=== PATIENT | male | born 1945 | race Caucasian/White ===

== ENCOUNTER 2018-11-18 03:33 | Inpatient (IN) | payer MEDICARE, MEDICAID ==
[2018-11-18] VITALS (8 sets, daily range): BP systolic 90–140; BP diastolic 49–90
[~2018-11-18] VITALS: Ht 165.1 cm; Wt 74.8 kg
--- NOTE | 2018-11-18 03:33 | NUR ---
ED Nurse Note: PATIENT BIBA FROM [facility], WARM TO TOUCH, POSSIBLLY SEPTIC. RECTAL TEMP 99.7. APHASIC. NAD. HYPOTENSIVE BP 92/ 49. GTUBE NOTED; ASPIRATED AND FLUSHED; PATENT.
[2018-11-18] MEDS ORDERED: Albuterol ud Inhalation HHN ONE (03:45)
--- NOTE | 2018-11-18 03:45 | NUR ---
ED Nurse Note: IV ACCESS ESTABLISHED. BLOOD, URINE, MRSA VRE CRE SWABS COLLECTED; SENT DOWN TO LAB. WOUNDS NOTED ON SACRAL AND LEFT HEEL. WOUND PICTURE TAKEN AND UPLOADED.
--- NOTE | 2018-11-18 03:49 | Emergency Room Report ---
History of Present Illness General Chief Complaint: Fever Source: Medical Record, EMS Present Illness HPI This is a 73-year-old male from [place]. He presents with chief complaint of altered mental status. He has a past medical history of COPD, feeding tube, dementia, Parkinson. Per EMS, alf noted that patient appeared to be a dresser distress. Increased work of breathing. Decreased mentation. No fever chills but no cough or congestion. Unable to get any other history because of this patient condition. Allergies: Coded Allergies: No Known Allergies (Unverified , 11/18/18) Patient History Past Medical History: see triage record, old chart reviewed, COPD Past Surgical History: other Pertinent Family History: none Social History: Denies: smoking Immunizations: other Reviewed Nursing Documentation: PMH: Agreed; PSxH: Agreed Nursing Documentation-PMH Hx Cardiac Problems: Yes - ATHEROSCLEROTIC HEART DISEASE Hx Hypertension: Yes Hx COPD: Yes Hx Dialysis: Yes - CKD History Of Psychiatric Problem: Yes - DEMENTIA; DEPRESSION; PARKINSON Hx Neurological Problems: Yes - EPILEPSY Review of Systems Constitutional: Reports: malaise, weakness Respiratory: Reports: shortness of breath All Other Systems: limited - Contrary to condition Physical Exam Vital Signs Date Time Temp Pulse Resp B/P (MAP) Pulse Ox O2 Delivery O2 Flow Rate FiO2 11/18/18 03:24 97.9 90 18 95/53 (67) 96 Nasal Cannula Vitals with hypotension and hypoxia Sp02 EP Interpretation: abnormal General Appearance: moderate distress, cachetic, Chronically Ill Head: normocephalic, atraumatic Eyes: bilateral eye PERRL, bilateral eye EOMI ENT: hearing grossly normal, normal pharynx Neck: full range of motion, supple, no meningismus Respiratory: chest non-tender, respiratory distress, decreased breath sounds, accessory muscle use, rhonchi Cardiovascular #1: regular rate, rhythm, no murmur, tachycardia Gastrointestinal: normal bowel sounds, non tender, no mass, no organomegaly, no bruit, non-distended Musculoskeletal: back normal, gait/station normal, normal range of motion Psychiatric: mood/affect normal Skin: warm/dry Procedures Critical Care Time Critical Care Time Critical care is mandated in this patient who presented with sepsis from pneumonia. Patient require my urgent intervention to attenuate the risks of metabolic collapse which may lead to cardiovascular collapse and . Critical care time is 35 minutes excluding any reportable procedure. Critical care time included evaluation, multiple reevaluation, looking at old charts, interpreting laboratory and diagnostic data, discussing case with patient and family and consultants, and charting. Medical Decision Making Diagnostic Impression: Primary Impression: Sepsis Qualified Codes: A41.9 - Sepsis, unspecified organism Additional Impressions: HCAP (healthcare-associated pneumonia) UTI (urinary tract infection) Qualified Codes: N30.00 - Acute cystitis without hematuria Anemia, chronic disease Proteinuria Qualified Codes: R80.9 - Proteinuria, unspecified ER Course Patient presents with sepsis secondary to pneumonia. Antibiotics started. Patient improved with IV fluid and IV antibiotics. I discussed the case with Dr. Gonzalez for admission. Sepsis reevaluation Vital signs: See nursing note General: Improved mental status. Cardiovascular: Regular rate and rhythm Lungs: Better aeration. Abdomen: Soft Extremity: No edema Skin: No mottling Capillary refills: less than 2 seconds Lab Results Impression Labs with elevated WBC EKG Diagnostic Results Rate: normal Rhythm: NSR ST Segments: no acute changes Rhythm Strip Diag. Results EP Interpretation: yes Rate: 95 Rhythm: NSR, no PVC's, no ectopy Chest X-Ray Diagnostic Results Chest X-Ray Diagnostic Results : Chest X-Ray Ordered: Yes # of Views/Limited/Complete: 1 View Indication: Shortness of Breath EP Interpretation: Yes Interpretation: no effusion, no pneumothorax, other - b/l infiltrates Impression: Other - b/l infiltrates Electronically Signed by: Norbert Kohli MD Last Vital Signs Date Time Temp Pulse Resp B/P (MAP) Pulse Ox O2 Delivery O2 Flow Rate FiO2 11/18/18 03:24 97.9 90 18 95/53 (67) 96 Nasal Cannula Status: improved Disposition: ADMITTED INPATIENT Condition: Serious Norbert Kohli MD Nov 18, 2018 03:49
[2018-11-18] MEDS ORDERED: LOPRESSOR GT (03:50)
[2018-11-18] MEDS ORDERED: FAMOTIDINE20 MG GT (03:50)
[2018-11-18] MEDS ORDERED: SINEMET 25-1001 EAC1 ORAL (03:50)
[2018-11-18] MEDS ORDERED: ASPIR 8181 MG GT (03:50)
[2018-11-18] MEDS ORDERED: VIT GT (03:50)
[2018-11-18] MEDS ORDERED: VITAMIN D400 INTLU GT (03:50)
[2018-11-18] MEDS ORDERED: ARICEPT10 MG GT (03:50)
[2018-11-18] MEDS ORDERED: PREDNISONE10 MG GT (03:51)
[2018-11-18] MEDS ORDERED: LACTULOSE20 GM/301 GT (03:51)
[2018-11-18] MEDS ORDERED: VALPROIC ACID250 MG GT (03:51)
[2018-11-18] MEDS ORDERED: MYLANTA GT (03:54)
[2018-11-18] MEDS ORDERED: XOPENEX0.63 MG/3 HHN (03:54)
[2018-11-18 04:05] LABS: BILIRUBIN, URINE NEGATIVE (NEGATIVE); GLUCOSE, URINE (UA) NEGATIVE (NEGATIVE); KETONES,URINE NEGATIVE (NEGATIVE); LEUKOCYTE ESTERASE ,URINE 2+ (NEGATIVE); NITRITE,URINE NEGATIVE (NEGATIVE); PH,URINE 6 (4.5-8.0); PROTEIN,URINE 2+ (NEGATIVE); UROBILINOGEN,URINE 8 MG/DL (0.0-1.0)
[2018-11-18 04:12] LABS: BASOPHILS % (AUTO) 0.3 % (0.0-2.0); EOSINOPHILS % (AUTO) 0.4 % (0.0-3.0); HEMATOCRIT 28.3 % (42.0-52.0); HEMOGLOBIN 9.4 G/DL (14.2-18.0); LYMPHOCYTES % (AUTO) 10.6 % (20.0-45.0); MEAN CORPUSCULAR VOLUME 94 FL (80-99); MONOCYTES % (AUTO) 4.5 % (1.0-10.0); NEUTROPHILS % (AUTO) 84.1 % (45.0-75.0); PLATELET COUNT 304 K/UL (150-450); RED BLOOD COUNT 3.01 M/UL (4.70-6.10); WHITE BLOOD COUNT 16.6 K/UL (4.8-10.8)
[2018-11-18 04:22] LABS: APPEARANCE,URINE SLIGHTLY CLOUDY; COLOR,URINE YELLOW
[2018-11-18 04:23] LABS: ANION GAP 7 mmol/L (5-15); BLOOD UREA NITROGEN 26 mg/dL (7-18); CALCIUM 8.9 MG/DL (8.5-10.1); CARBON DIOXIDE 32 MMOL/L (21-32); CHLORIDE 105 MMOL/L (98-107); CREATININE 0.6 MG/DL (0.55-1.30); POTASSIUM 4.3 MMOL/L (3.5-5.1); SODIUM 144 MMOL/L (136-145)
[2018-11-18] MEDS ORDERED: Cefepime HCl 1 GM in D5W 55 ML IVPB ONE (04:30)
[2018-11-18 04:36] LABS: ALANINE AMINOTRANSFERASE 24 U/L (12-78); ALBUMIN 1.5 G/DL (3.4-5.0); ALBUMIN/GLOBULIN RATIO 0.3 (1.0-2.7); ALKALINE PHOSPHATASE 102 U/L (46-116); ASPARTATE AMINO TRANSFERASE 18 U/L (15-37); BILIRUBIN,TOTAL 0.8 MG/DL (0.2-1.0); CKMB 1.2 NG/ML (0.0-3.6); CREATINE KINASE 27 U/L (26-308)
--- NOTE | 2018-11-18 05:00 | NUR ---
ED Nurse Note: LACTIC REFLEX COLLECTED; SENT DOWN TO LAB.
--- NOTE | 2018-11-18 05:21 | NUR ---
TRANSFER TO FLOOR: Patient transferred to [facility] 237-2 as ordered, per MD MASOOD. Report given to MONA THAKKAR. PATIENT IN STABLE CONDITION. ENDORSED WOUNDS TO RECEIVING RN. BELONGINGS LIST COMPLETED WITH RECEIVING RN.
--- NOTE | 2018-11-18 05:45 | NUR ---
NURSE NOTES: RECEIVED PT FROM SHIRLEY RN FROM ER AT BEDSIDE. PT IS X0, NONVERBAL, NOT ABLE TO MAKE NEEDS KNOWN. ALERT AND CAN TRACK WITH EYES, WITHDRAWS TO PAIN. 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 VENTURI MASK @ 10L 45%, SATING AT 100%. GT NOTED, NO DIET ORDER YET. BUNDY INSERTED PRIOR TO ADMISSION, DARK YELLOW. SACRAL AND HEEL PRESSURE INJURIES, SEE WCP. OTHERWISE SKIN CLEAN, DRY, DRESSINGS NOW INTACT. RAC 18G, SL; ASYMPTOMATIC. BED IS LOCKED IN LOWEST POSITION, SR X3, CALL GUTIERREZ W/ IN REACH, BED ALARM ON, SZ PRECAUTIONS CONTINUED. WILL CONTINUE TO MONITOR AND FOLLOW W/ PLAN OF CARE.
--- NOTE | 2018-11-18 06:30 | NUR ---
NURSE NOTES: PAGED DR. CORREIA REGARDING ADMIT ORDERS. LEFT A MESSAGE W/ THE ANSWERING SERVICE. NO NEW ORDERS AT THIS TIME. WILL CONTINUE TO MONITOR.
[2018-11-18] MEDS ORDERED: FLEET ENEMA133 ML RECTAL (06:31)
[2018-11-18] MEDS ORDERED: COLACE100 MG GT (06:31)
[2018-11-18] MEDS ORDERED: MILK OF MA400 MG/51 GT (06:31)
[2018-11-18] MEDS ORDERED: VITAMIN B-1100 MG GT (06:31)
[2018-11-18] MEDS ORDERED: METOPROLOL TART25 MG GT (06:31)
[2018-11-18] MEDS ORDERED: SENNA8.6 M2 GT (06:31)
[2018-11-18] MEDS ORDERED: MIRTAZAPINE15 MG GT (06:31)
[2018-11-18] MEDS ORDERED: PRO-STAT LIQUID30 ML GT (06:31)
[2018-11-18] MEDS ORDERED: VALPROIC A250 MG/5 M GT (06:31)
[2018-11-18] MEDS ORDERED: DULCOLAX10 MG RC (06:31)
[2018-11-18] MEDS ORDERED: LOVENOX10 M1 SUBQ (06:31)
--- NOTE | 2018-11-18 06:40 | NUR ---
NURSE NOTES: PAGED DR. GOMEZ REGARDING ADMIT ORDERS FOR DR. XIE PT. NO NEW ORDERS AT THIS TIME. WILL CONTINUE TO MONITOR.
--- NOTE | 2018-11-18 07:15 | NUR ---
HAND-OFF: Report given to Peter [facility] RN.
--- NOTE | 2018-11-18 07:20 | NUR ---
NURSE NOTES: Report received from Loree Caba RN.Pt asleep in bed ,nonverbal,noted no resp,on Venturi mask 45%,no signs of pain or discomfort S-Tach on the monitor,GT clamped,Bradley cath draining tea colored urine,with decub wound to sacral and LT heel,skin warm and dry IV site to RAC intact ,SR up x2 HOB elevated,bed lock in lowest position,will continue with plans of care.
[2018-11-18] MEDS ORDERED: Miralax 17gm pkt ORAL PRN (07:45)
[2018-11-18] MEDS ORDERED: Morphine Sulfate 4mg/ml Inj (IV USE ONLY) IVP PRN (07:45)
[2018-11-18] MEDS ORDERED: Albuterol/Ipratropium 3ml neb HHN PRN (07:45)
--- NOTE | 2018-11-18 07:45 | NUR ---
NURSE NOTES: Telephone call received from Night RN Loree Caba ,that Dr Carrasquillo called her re orders for wound care consult,nutrition consult abd xray for confirmation of GT,and Venous Duplex.
[2018-11-18 08:11] LABS: LACTATE DEHYDROGENASE 232 U/L (81-234)
[2018-11-18 08:39] LABS: % IRON SATURATION 14 % (15-50); IRON 19 ug/dL (50-175); TOTAL IRON BINDING CAPACITY 136 ug/dL (250-450)
--- NOTE | 2018-11-18 08:54 | NUR ---
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 SEPSIS VS: BP 90/49, P 113, Rectal T 99.7, RR 20, SPO2 96 on 10.0L V.Mask FiO2 45 WBC 16.6, RBC 3.01, H&H 9.4/28.3, BUN 26 IS:PROVENTIL 2.5mg NS 1.5L IVLG LEVOFLOXACIN 100ml IVPB CEFEPIME 55ml IVPB NS x1L IV ADMITTED TO [facility] DCP: RETURN TO [facility]
[2018-11-18] MEDS ORDERED: Heparin 5000 units/ml inj SUBQ SCH (09:00)
[2018-11-18] MEDS ORDERED: Vancomycin 1.25gm Premix IVPB ONE (09:00)
--- NOTE | 2018-11-18 09:00 | NUR ---
NURSE NOTES: Abd Xray done to confirm placement of GT,will hold GT medic pending result.
--- NOTE | 2018-11-18 09:09 | NUR ---
RADIOLOGY DEPT., ABDOMEN X-RAY FOR G-TUBE PLMT COMPLETED.-P.DYE
--- NOTE | 2018-11-18 09:53 | NUR ---
RD ASSESSMENT & RECOMMENDATIONS SEE CARE ACTIVITY FOR COMPLETE ASSESSMENT DAILY ESTIMATED NEEDS: Needs based on Sepsis, wound 60.5kg 25-35 kcals/kg 8703-8138 total kcals 1.25-2 g protein/kg 76-121 g total protein 25-30 mL/kg 5411-8670 total fluid mLs NUTRITION DIAGNOSIS: 1) Increased kcal and pro needs r/t wound healing as evidenced by pt w/ sacral unstageable wound and L heel DTPI. 2) Swallowing difficulty r/t dysphagia as evidenced by pt w/ Parkinson's dz, GT dependent. ENTERAL NUTRITION RECOMMENDATIONS: Glucerna 1.2 @60ml/hr x24 hrs to provide 1440ml, 1728 kcal, 86g pro, 1159ml free H2O - As medically able, rec to start Glucerna 1.2 @20ml/hr, advance as tolerated 10ml q4-6 hrs to goal. - Flush per MD/ HOB over 30 degrees ADDITIONAL RECOMMENDATIONS: 1) Per SNF: 5'6" ht, 133 lbs wt 2) HOME PARAPROFESSIONAL eval if oral grat is appropriate 3) Wound care: Add YOLI BID via GT + VIT C 250mg BID 4) Hypoglycemics prn/ niss
--- NOTE | 2018-11-18 10:46 | Consultation ---
History of Present Illness General Date patient seen: Nov 18, 2018 Chief Complaint: Fever Present Illness HPI 73-year-old male with hx of dementia, Gtube feeding, Parkinson disease, seizure , [facility] resident presented with chief complaint of altered mental status. Per EMS, [facility] noted that patient appeared to be a respiratory distress with increased work of breathing and decreased mentation. No fever chills but no cough or congestion. Unable to get any other history because of this patient condition. Patient was diagnosed to have bilateral pneumonia and sepsis and admitted to [facility] for further treatment. Allergies: Coded Allergies: No Known Allergies (Unverified , 11/18/18) Medication History Scheduled Amino Acids/Protein Hydrolys (Pro-Stat Liquid), 30 ML GT TWICE A DAY, (Reported) Aspirin* (Aspir 81*), 81 MG GT DAILY, (Reported) Carbidopa/Levodopa 25-100 Mg* (Sinemet 25-100 Mg Tablet*), 1 TAB ORAL THREE TIMES A DAY, (Reported) Docusate Sodium* (Colace*), 100 MG GT DAILY, (Reported) Donepezil Hcl* (Aricept*), 10 MG GT DAILY, (Reported) Enoxaparin* (Lovenox*), 60 MG SUBQ EVERY 12 HOURS, (Reported) Famotidine (Famotidine), 20 MG GT TWICE A DAY, (Reported) Lactulose (Lactulose*), 30 ML GT DAILY, (Reported) Metoprolol Tartrate* (Metoprolol Tartrate*), 12.5 MG GT EVERY 12 HOURS, ( Reported) Mirtazapine* (Remeron*), 15 MG GT BEDTIME, (Reported) Prednisone* (Prednisone*), 10 MG GT DAILY, (Reported) Sennosides (Senna), 17.2 MG GT QHS, (Reported) Thiamine Hcl* (Vitamin B-1*), 100 MG GT DAILY, (Reported) Valproate Sodium (Valproic Acid), 250 MG GT BID, (Reported) Vitamin D (Vitamin D3), 5,000 UNITS GT DAILY, (Reported) Scheduled PRN Bisacodyl (Dulcolax), 10 MG RC DAILY PRN for Constipation, (Reported) Levalbuterol Hcl (Xopenex*), 0.63 MG HHN Q4H PRN for Shortness of Breath, ( Reported) Magnesium Hydroxide* (Milk Of Magnesia*), 30 ML GT DAILY PRN for Constipation, ( Reported) Na Phos,M-B/Na Phos,Di-Ba* (Fleet Enema*), 133 ML RECTAL EVERY OTHER DAY PRN for Constipation, (Reported) [Mylanta], 30 ML GT Q6HR PRN for Per rx protocol, (Reported) Patient History Healthcare decision maker NONE Resuscitation status Full Code Advanced Directive on File No Past Medical/Surgical History Past Medical/Surgical History: (1) Seizures (2) Parkinson disease (3) Alzheimer's dementia (4) COPD (chronic obstructive pulmonary disease) (5) Feeding by G-tube (6) Anemia, chronic disease Review of Systems All Other Systems: negative except mentioned in HPI Physical Exam General Appearance: WD/WN, no apparent distress Lines, tubes and drains: central line HEENT: normocephalic, atraumatic Neck: non-tender, normal alignment Breasts: no masses Cardiovascular/Chest: normal peripheral pulses, normal rate, regular rhythm Abdomen: normal bowel sounds, non tender Genitourinary/Rectal: normal genital exam, heme negative stool Extremities: normal range of motion Skin Exam: normal pigmentation 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 Last 24 Hour Vital Signs Date Time Temp Pulse Resp B/P (MAP) Pulse Ox O2 Delivery O2 Flow Rate FiO2 11/18/18 08:20 95 11/18/18 06:02 Venturi Mask 10.0 11/18/18 06:00 98 11/18/18 05:45 98.4 107 22 140/90 (107) 100 11/18/18 05:23 99.7 113 20 107/62 99 Venturi Mask 10.0 45 11/18/18 05:11 99.7 113 20 107/62 99 Venturi Mask 10.0 45 11/18/18 04:39 98 20 Venturi Mask 10.0 45 11/18/18 04:10 99.7 98 20 90/49 99 Non-Rebreather 15.0 100 11/18/18 04:10 98 20 Non-Rebreather 15.0 100 11/18/18 04:08 102 20 99 Non-Rebreather 15.0 100 11/18/18 03:50 92 20 97 Non-Rebreather 15.0 100 11/18/18 03:50 92 20 97 Non-Rebreather 15.0 100 11/18/18 03:24 97.9 90 18 95/53 (67) 96 Nasal Cannula Intake and Output 11/17/18 11/18/18 19:00 07:00 Output Total 60 ml Balance -60 ml Output Urine Total 60 ml # Bowel Movements 1 Laboratory Tests Test 11/18/18 04:00 11/18/18 05:10 White Blood Count 16.6 K/UL (4.8-10.8) H Red Blood Count 3.01 M/UL (4.70-6.10) L Hemoglobin 9.4 G/DL (14.2-18.0) L Hematocrit 28.3 % (42.0-52.0) L Mean Corpuscular Volume 94 FL (80-99) Mean Corpuscular Hemoglobin 31.3 PG (27.0-31.0) H Mean Corpuscular Hemoglobin Concent 33.3 G/DL (32.0-36.0) Red Cell Distribution Width 15.0 % (11.6-14.8) H Platelet Count 304 K/UL (150-450) Mean Platelet Volume 5.8 FL (6.5-10.1) L Neutrophils (%) (Auto) 84.1 % (45.0-75.0) H Lymphocytes (%) (Auto) 10.6 % (20.0-45.0) L Monocytes (%) (Auto) 4.5 % (1.0-10.0) Eosinophils (%) (Auto) 0.4 % (0.0-3.0) Basophils (%) (Auto) 0.3 % (0.0-2.0) Differential Total Cells Counted 100 Neutrophils % (Manual) 87 % (45-75) H Lymphocytes % (Manual) 9 % (20-45) L Monocytes % (Manual) 4 % (1-10) Eosinophils % (Manual) 0 % (0-3) Basophils % (Manual) 0 % (0-2) Band Neutrophils 0 % (0-8) Platelet Estimate Adequate Platelet Morphology Normal Erythrocyte Sedimentation Rate 122 MM/HR (0-20) H Reticulocyte Count 0.7 % (0.5-2.0) Prothrombin Time 10.7 SEC (9.30-11.50) Prothromb Time International Ratio 1.0 (0.9-1.1) Activated Partial Thromboplast Time 24 SEC (23-33) Urine Color Yellow Urine Appearance Slightly cloudy Urine pH 6 (4.5-8.0) Urine Specific [place] 1.010 (1.005-1.035) Urine Protein 2+ (NEGATIVE) H Urine Glucose (UA) Negative (NEGATIVE) Urine Ketones Negative (NEGATIVE) Urine Blood 3+ (NEGATIVE) H Urine Nitrite Negative (NEGATIVE) Urine Bilirubin Negative (NEGATIVE) Urine Urobilinogen 8 MG/DL (0.0-1.0) H Urine Leukocyte Esterase 2+ (NEGATIVE) H Urine RBC 2-4 /HPF (0 - 0) H Urine WBC 10-15 /HPF (0 - 0) H Urine Squamous Epithelial Cells Few /LPF (NONE/OCC) Urine Bacteria Many /HPF (NONE) H Sodium Level 144 MMOL/L (136-145) Potassium Level 4.3 MMOL/L (3.5-5.1) Chloride Level 105 MMOL/L (98-107) Carbon Dioxide Level 32 MMOL/L (21-32) Anion Gap 7 mmol/L (5-15) Blood Urea Nitrogen 26 mg/dL (7-18) H Creatinine 0.6 MG/DL (0.55-1.30) Estimat Glomerular Filtration Rate mL/min (>60) Glucose Level 112 MG/DL (74-106) H Lactic Acid Level 2.10 mmol/L (0.4-2.0) H 1.80 mmol/L (0.66-2.22) Calcium Level 8.9 MG/DL (8.5-10.1) Iron Level 19 ug/dL (50-175) L Total Iron Binding Capacity 136 ug/dL (250-450) L Percent Iron Saturation 14 % (15-50) L Unsaturated Iron Binding 117 ug/dL (112-346) Total Bilirubin 0.8 MG/DL (0.2-1.0) Aspartate Amino Transf (AST/SGOT) 18 U/L (15-37) Alanine Aminotransferase (ALT/SGPT) 24 U/L (12-78) Alkaline Phosphatase 102 U/L (46-116) Lactate Dehydrogenase 232 U/L (81-234) Total Creatine Kinase 27 U/L (26-308) Creatine Kinase MB 1.2 NG/ML (0.0-3.6) Creatine Kinase MB Relative Index 4.4 Troponin I 0.095 ng/mL (0.000-0.056) Total Protein 6.3 G/DL (6.4-8.2) L Albumin 1.5 G/DL (3.4-5.0) L Globulin 4.8 g/dL Albumin/Globulin Ratio 0.3 (1.0-2.7) L Carcinoembryonic Antigen Pending Vitamin B12 Level 664 PG/ML (193-986) Folate 19.6 NG/ML (8.6-58.9) Height (Feet): 5 Height (Inches): 7.00 Weight (Pounds): 140 Medications Current Medications Medications (Trade) Dose Ordered Sig/Pauline Route PRN Reason Start Time Stop Time Status Last Admin Dose Admin Acetaminophen (Tylenol) 650 mg Q4H PRN ORAL FEVER 11/18/18 07:45 12/18/18 07:44 Albuterol/ Ipratropium (Albuterol/ Ipratropium) 3 ml Q4H PRN HHN Shortness of Breath 11/18/18 07:45 11/23/18 07:44 Carbidopa/Levodopa (Sinemet 25/100) 1 tab THREE TIMES A DAY ORAL 11/18/18 09:00 12/18/18 08:59 Cefepime HCl 2 gm/ Dextrose 110 ml @ 220 mls/hr Q24H IV 11/18/18 16:30 11/25/18 16:29 Dextrose (Dextrose 50%) 25 ml Q30M PRN IV Hypoglycemia 11/18/18 07:45 12/18/18 07:44 Dextrose (Dextrose 50%) 50 ml Q30M PRN IV Hypoglycemia 11/18/18 07:45 12/18/18 07:44 Donepezil HCl (Aricept) 10 mg DAILY GT 11/18/18 09:00 12/18/18 08:59 Heparin Sodium (Porcine) (Heparin 5000 units/ml) 5,000 units EVERY 12 HOURS SUBQ 11/18/18 09:00 12/18/18 08:59 11/18/18 09:20 Mirtazapine (Remeron) 15 mg BEDTIME GT 11/18/18 21:00 12/18/18 20:59 Morphine Sulfate (Morphine Sulfate) 2 mg Q4H PRN IVP Severe Pain (Pain Scale 7-10) 11/18/18 07:45 11/25/18 07:44 Ondansetron HCl (Zofran) 4 mg Q6H PRN IVP Nausea & Vomiting 11/18/18 07:45 12/18/18 07:44 Polyethylene Glycol (Miralax) 17 gm DAILYPRN PRN ORAL Constipation 11/18/18 07:45 12/18/18 07:44 Vancomycin HCl (Vanco rx to dose) 1 ea DAILY PRN MISC Per rx protocol 11/18/18 08:00 12/18/18 07:59 Vancomycin HCl 750 mg/Sodium Chloride 275 ml @ 183.333 mls/hr Q12H IVPB 11/18/18 21:00 11/23/18 20:59 Assessment/Plan Problem List: (1) HCAP (healthcare-associated pneumonia) ICD Codes: J18.9 - Pneumonia, unspecified organism SNOMED: 308339252, 784571274 (2) Sepsis ICD Codes: A41.9 - Sepsis, unspecified organism SNOMED: 48159179, 927419966 Qualifiers: Qualified Codes: A41.9 - Sepsis, unspecified organism (3) Acute DVT (deep venous thrombosis) ICD Codes: I82.409 - Acute embolism and thrombosis of unspecified deep veins of unspecified lower extremity SNOMED: 962198963782957 (4) Seizures ICD Codes: R56.9 - Unspecified convulsions SNOMED: 23043449 (5) COPD (chronic obstructive pulmonary disease) ICD Codes: J44.9 - Chronic obstructive pulmonary disease, unspecified SNOMED: 30494057 (6) Anemia, chronic disease ICD Codes: D63.8 - Anemia in other chronic diseases classified elsewhere SNOMED: 111050596, 724077826 (7) Feeding by G-tube ICD Codes: Z93.1 - Gastrostomy status SNOMED: 697720004, 973262588, 448962631 (8) Parkinson disease ICD Codes: G20 - Parkinson's disease SNOMED: 53778603 (9) Alzheimer's dementia ICD Codes: G30.9 - Alzheimer's disease, unspecified; F02.80 - Dementia in other diseases classified elsewhere without behavioral disturbance SNOMED: 27037937 Assessment/Plan: lainez culture IV abx iv heparin by pharmacy anemia w/u OB f/u wbc respiratory treatment aspiration precaution David Carrasquillo MD Nov 18, 2018 10:46
--- NOTE | 2018-11-18 12:00 | NUR ---
NURSE NOTES: Dr Gonzalez at bedside,seen pt,informed re results of venous duplex,pt is + for DVT to Rt leg.
[2018-11-18] MEDS ORDERED: Enoxaparin 60mg Inj SUBQ SCH (12:30)
--- NOTE | 2018-11-18 12:30 | NUR ---
NURSE NOTES: Dr Washington here ,seen pt,ordered for Heparin drip due to + DVT to RT leg.
--- NOTE | 2018-11-18 12:31 | Cardiac Electrophysiology PN ---
Subjective Subjective [id number] Objective Last 24 Hour Vital Signs Date Time Temp Pulse Resp B/P (MAP) Pulse Ox O2 Delivery O2 Flow Rate FiO2 11/18/18 12:00 98.2 69 20 122/71 (88) 100 11/18/18 09:00 Venturi Mask 15.0 11/18/18 08:20 95 11/18/18 08:00 97.7 66 22 122/82 (95) 98 11/18/18 06:02 Venturi Mask 10.0 11/18/18 06:00 98 11/18/18 05:45 98.4 107 22 140/90 (107) 100 11/18/18 05:23 99.7 113 20 107/62 99 Venturi Mask 10.0 45 11/18/18 05:11 99.7 113 20 107/62 99 Venturi Mask 10.0 45 11/18/18 04:39 98 20 Venturi Mask 10.0 45 11/18/18 04:10 99.7 98 20 90/49 99 Non-Rebreather 15.0 100 11/18/18 04:10 98 20 Non-Rebreather 15.0 100 11/18/18 04:08 102 20 99 Non-Rebreather 15.0 100 11/18/18 03:50 92 20 97 Non-Rebreather 15.0 100 11/18/18 03:50 92 20 97 Non-Rebreather 15.0 100 11/18/18 03:24 97.9 90 18 95/53 (67) 96 Nasal Cannula Intake and Output 11/17/18 11/18/18 19:00 07:00 Output Total 60 ml Balance -60 ml Output Urine Total 60 ml # Bowel Movements 1 Laboratory Tests Test 11/18/18 04:00 11/18/18 05:10 White Blood Count 16.6 K/UL (4.8-10.8) H Red Blood Count 3.01 M/UL (4.70-6.10) L Hemoglobin 9.4 G/DL (14.2-18.0) L Hematocrit 28.3 % (42.0-52.0) L Mean Corpuscular Volume 94 FL (80-99) Mean Corpuscular Hemoglobin 31.3 PG (27.0-31.0) H Mean Corpuscular Hemoglobin Concent 33.3 G/DL (32.0-36.0) Red Cell Distribution Width 15.0 % (11.6-14.8) H Platelet Count 304 K/UL (150-450) Mean Platelet Volume 5.8 FL (6.5-10.1) L Neutrophils (%) (Auto) 84.1 % (45.0-75.0) H Lymphocytes (%) (Auto) 10.6 % (20.0-45.0) L Monocytes (%) (Auto) 4.5 % (1.0-10.0) Eosinophils (%) (Auto) 0.4 % (0.0-3.0) Basophils (%) (Auto) 0.3 % (0.0-2.0) Differential Total Cells Counted 100 Neutrophils % (Manual) 87 % (45-75) H Lymphocytes % (Manual) 9 % (20-45) L Monocytes % (Manual) 4 % (1-10) Eosinophils % (Manual) 0 % (0-3) Basophils % (Manual) 0 % (0-2) Band Neutrophils 0 % (0-8) Platelet Estimate Adequate Platelet Morphology Normal Erythrocyte Sedimentation Rate 122 MM/HR (0-20) H Reticulocyte Count 0.7 % (0.5-2.0) Prothrombin Time 10.7 SEC (9.30-11.50) Prothromb Time International Ratio 1.0 (0.9-1.1) Activated Partial Thromboplast Time 24 SEC (23-33) Urine Color Yellow Urine Appearance Slightly cloudy Urine pH 6 (4.5-8.0) Urine Specific [place] 1.010 (1.005-1.035) Urine Protein 2+ (NEGATIVE) H Urine Glucose (UA) Negative (NEGATIVE) Urine Ketones Negative (NEGATIVE) Urine Blood 3+ (NEGATIVE) H Urine Nitrite Negative (NEGATIVE) Urine Bilirubin Negative (NEGATIVE) Urine Urobilinogen 8 MG/DL (0.0-1.0) H Urine Leukocyte Esterase 2+ (NEGATIVE) H Urine RBC 2-4 /HPF (0 - 0) H Urine WBC 10-15 /HPF (0 - 0) H Urine Squamous Epithelial Cells Few /LPF (NONE/OCC) Urine Bacteria Many /HPF (NONE) H Sodium Level 144 MMOL/L (136-145) Potassium Level 4.3 MMOL/L (3.5-5.1) Chloride Level 105 MMOL/L (98-107) Carbon Dioxide Level 32 MMOL/L (21-32) Anion Gap 7 mmol/L (5-15) Blood Urea Nitrogen 26 mg/dL (7-18) H Creatinine 0.6 MG/DL (0.55-1.30) Estimat Glomerular Filtration Rate mL/min (>60) Glucose Level 112 MG/DL (74-106) H Lactic Acid Level 2.10 mmol/L (0.4-2.0) H 1.80 mmol/L (0.66-2.22) Calcium Level 8.9 MG/DL (8.5-10.1) Iron Level 19 ug/dL (50-175) L Total Iron Binding Capacity 136 ug/dL (250-450) L Percent Iron Saturation 14 % (15-50) L Unsaturated Iron Binding 117 ug/dL (112-346) Total Bilirubin 0.8 MG/DL (0.2-1.0) Aspartate Amino Transf (AST/SGOT) 18 U/L (15-37) Alanine Aminotransferase (ALT/SGPT) 24 U/L (12-78) Alkaline Phosphatase 102 U/L (46-116) Lactate Dehydrogenase 232 U/L (81-234) Total Creatine Kinase 27 U/L (26-308) Creatine Kinase MB 1.2 NG/ML (0.0-3.6) Creatine Kinase MB Relative Index 4.4 Troponin I 0.095 ng/mL (0.000-0.056) Total Protein 6.3 G/DL (6.4-8.2) L Albumin 1.5 G/DL (3.4-5.0) L Globulin 4.8 g/dL Albumin/Globulin Ratio 0.3 (1.0-2.7) L Carcinoembryonic Antigen Pending Vitamin B12 Level 664 PG/ML (193-986) Folate 19.6 NG/ML (8.6-58.9) Earl Washington MD Nov 18, 2018 12:31
--- NOTE | 2018-11-18 12:32 | Diagnostic Imaging Report ---
Indication: Dyspnea Comparison: None A single view chest radiograph was obtained. Findings: Patchy bilateral infiltrates versus mixed interstitial alveolar edema noted. Heart is enlarged. Lung volumes are very low. The bones are osteopenic. IMPRESSION: Patchy infiltrates versus CHF
--- NOTE | 2018-11-18 13:00 | NUR ---
NURSE NOTES: Dr Eugene seen pt.assessed wounds.
--- NOTE | 2018-11-18 13:05 | Consultation ---
History of Present Illness General Date patient seen: Nov 18, 2018 Reason for Hospitalization: Fever Present Illness HPI 73 year old male alf resident with multiple medical comorbidities presented with respiratory decompensation, leukocytosis, fever. Admitted for medical care and work up. On admission noted to have wounds requiring care. Surgery called to evaluate and assist with care. patient seen, chart reviewed, patient examined. patient awake and alert but not verbal Allergies: Coded Allergies: No Known Allergies (Unverified , 11/18/18) Medication History Scheduled Amino Acids/Protein Hydrolys (Pro-Stat Liquid), 30 ML GT TWICE A DAY, (Reported) Aspirin* (Aspir 81*), 81 MG GT DAILY, (Reported) Carbidopa/Levodopa 25-100 Mg* (Sinemet 25-100 Mg Tablet*), 1 TAB ORAL THREE TIMES A DAY, (Reported) Docusate Sodium* (Colace*), 100 MG GT DAILY, (Reported) Donepezil Hcl* (Aricept*), 10 MG GT DAILY, (Reported) Enoxaparin* (Lovenox*), 60 MG SUBQ EVERY 12 HOURS, (Reported) Famotidine (Famotidine), 20 MG GT TWICE A DAY, (Reported) Lactulose (Lactulose*), 30 ML GT DAILY, (Reported) Metoprolol Tartrate* (Metoprolol Tartrate*), 12.5 MG GT EVERY 12 HOURS, ( Reported) Mirtazapine* (Remeron*), 15 MG GT BEDTIME, (Reported) Prednisone* (Prednisone*), 10 MG GT DAILY, (Reported) Sennosides (Senna), 17.2 MG GT QHS, (Reported) Thiamine Hcl* (Vitamin B-1*), 100 MG GT DAILY, (Reported) Valproate Sodium (Valproic Acid), 250 MG GT BID, (Reported) Vitamin D (Vitamin D3), 5,000 UNITS GT DAILY, (Reported) Scheduled PRN Bisacodyl (Dulcolax), 10 MG RC DAILY PRN for Constipation, (Reported) Levalbuterol Hcl (Xopenex*), 0.63 MG HHN Q4H PRN for Shortness of Breath, ( Reported) Magnesium Hydroxide* (Milk Of Magnesia*), 30 ML GT DAILY PRN for Constipation, ( Reported) Na Phos,M-B/Na Phos,Di-Ba* (Fleet Enema*), 133 ML RECTAL EVERY OTHER DAY PRN for Constipation, (Reported) [Mylanta], 30 ML GT Q6HR PRN for Per rx protocol, (Reported) Patient History Limited by: medical condition History Provided By: Medical Record, PMD Healthcare decision maker NONE Resuscitation status Full Code Advanced Directive on File No Review of Systems Review of Symptoms cannot obtain given medical condition Physical Exam Physical Exam General appearance: alert, cooperative, no distress, appears stated age Head: Normocephalic, without obvious abnormality, atraumatic Eyes: conjunctivae/corneas clear. PERRL, EOM's intact. Fundi benign Throat: Lips, mucosa, and tongue normal. Teeth and gums normal Neck: supple, symmetrical, trachea midline, no adenopathy, thyroid: not enlarged, symmetric, no tenderness/mass/nodules, no carotid bruit and no JVD Lungs: clear to auscultation bilaterally Heart: regular rate and rhythm, S1, S2 normal, no murmur, click, rub or gallop Abdomen: soft, non-tender. Bowel sounds normal. No masses, no organomegaly Extremities: extremities normal, atraumatic, no cyanosis or edema Pulses: 2+ and symmetric Skin: Skin color, texture, turgor normal. No rashes or lesions Neurologic: Grossly normal Last 24 Hour Vital Signs Date Time Temp Pulse Resp B/P (MAP) Pulse Ox O2 Delivery O2 Flow Rate FiO2 11/18/18 12:00 98.2 69 20 122/71 (88) 100 11/18/18 09:00 Venturi Mask 15.0 11/18/18 08:20 95 11/18/18 08:00 97.7 66 22 122/82 (95) 98 11/18/18 06:02 Venturi Mask 10.0 11/18/18 06:00 98 11/18/18 05:45 98.4 107 22 140/90 (107) 100 11/18/18 05:23 99.7 113 20 107/62 99 Venturi Mask 10.0 45 11/18/18 05:11 99.7 113 20 107/62 99 Venturi Mask 10.0 45 11/18/18 04:39 98 20 Venturi Mask 10.0 45 11/18/18 04:10 99.7 98 20 90/49 99 Non-Rebreather 15.0 100 11/18/18 04:10 98 20 Non-Rebreather 15.0 100 11/18/18 04:08 102 20 99 Non-Rebreather 15.0 100 11/18/18 03:50 92 20 97 Non-Rebreather 15.0 100 11/18/18 03:50 92 20 97 Non-Rebreather 15.0 100 11/18/18 03:24 97.9 90 18 95/53 (67) 96 Nasal Cannula Intake and Output 11/17/18 11/18/18 19:00 07:00 Output Total 60 ml Balance -60 ml Output Urine Total 60 ml # Bowel Movements 1 Laboratory Tests Test 11/18/18 04:00 11/18/18 05:10 White Blood Count 16.6 K/UL (4.8-10.8) H Red Blood Count 3.01 M/UL (4.70-6.10) L Hemoglobin 9.4 G/DL (14.2-18.0) L Hematocrit 28.3 % (42.0-52.0) L Mean Corpuscular Volume 94 FL (80-99) Mean Corpuscular Hemoglobin 31.3 PG (27.0-31.0) H Mean Corpuscular Hemoglobin Concent 33.3 G/DL (32.0-36.0) Red Cell Distribution Width 15.0 % (11.6-14.8) H Platelet Count 304 K/UL (150-450) Mean Platelet Volume 5.8 FL (6.5-10.1) L Neutrophils (%) (Auto) 84.1 % (45.0-75.0) H Lymphocytes (%) (Auto) 10.6 % (20.0-45.0) L Monocytes (%) (Auto) 4.5 % (1.0-10.0) Eosinophils (%) (Auto) 0.4 % (0.0-3.0) Basophils (%) (Auto) 0.3 % (0.0-2.0) Differential Total Cells Counted 100 Neutrophils % (Manual) 87 % (45-75) H Lymphocytes % (Manual) 9 % (20-45) L Monocytes % (Manual) 4 % (1-10) Eosinophils % (Manual) 0 % (0-3) Basophils % (Manual) 0 % (0-2) Band Neutrophils 0 % (0-8) Platelet Estimate Adequate Platelet Morphology Normal Erythrocyte Sedimentation Rate 122 MM/HR (0-20) H Reticulocyte Count 0.7 % (0.5-2.0) Prothrombin Time 10.7 SEC (9.30-11.50) Prothromb Time International Ratio 1.0 (0.9-1.1) Activated Partial Thromboplast Time 24 SEC (23-33) Urine Color Yellow Urine Appearance Slightly cloudy Urine pH 6 (4.5-8.0) Urine Specific [place] 1.010 (1.005-1.035) Urine Protein 2+ (NEGATIVE) H Urine Glucose (UA) Negative (NEGATIVE) Urine Ketones Negative (NEGATIVE) Urine Blood 3+ (NEGATIVE) H Urine Nitrite Negative (NEGATIVE) Urine Bilirubin Negative (NEGATIVE) Urine Urobilinogen 8 MG/DL (0.0-1.0) H Urine Leukocyte Esterase 2+ (NEGATIVE) H Urine RBC 2-4 /HPF (0 - 0) H Urine WBC 10-15 /HPF (0 - 0) H Urine Squamous Epithelial Cells Few /LPF (NONE/OCC) Urine Bacteria Many /HPF (NONE) H Sodium Level 144 MMOL/L (136-145) Potassium Level 4.3 MMOL/L (3.5-5.1) Chloride Level 105 MMOL/L (98-107) Carbon Dioxide Level 32 MMOL/L (21-32) Anion Gap 7 mmol/L (5-15) Blood Urea Nitrogen 26 mg/dL (7-18) H Creatinine 0.6 MG/DL (0.55-1.30) Estimat Glomerular Filtration Rate mL/min (>60) Glucose Level 112 MG/DL (74-106) H Lactic Acid Level 2.10 mmol/L (0.4-2.0) H 1.80 mmol/L (0.66-2.22) Calcium Level 8.9 MG/DL (8.5-10.1) Iron Level 19 ug/dL (50-175) L Total Iron Binding Capacity 136 ug/dL (250-450) L Percent Iron Saturation 14 % (15-50) L Unsaturated Iron Binding 117 ug/dL (112-346) Total Bilirubin 0.8 MG/DL (0.2-1.0) Aspartate Amino Transf (AST/SGOT) 18 U/L (15-37) Alanine Aminotransferase (ALT/SGPT) 24 U/L (12-78) Alkaline Phosphatase 102 U/L (46-116) Lactate Dehydrogenase 232 U/L (81-234) Total Creatine Kinase 27 U/L (26-308) Creatine Kinase MB 1.2 NG/ML (0.0-3.6) Creatine Kinase MB Relative Index 4.4 Troponin I 0.095 ng/mL (0.000-0.056) Total Protein 6.3 G/DL (6.4-8.2) L Albumin 1.5 G/DL (3.4-5.0) L Globulin 4.8 g/dL Albumin/Globulin Ratio 0.3 (1.0-2.7) L Carcinoembryonic Antigen Pending Vitamin B12 Level 664 PG/ML (193-986) Folate 19.6 NG/ML (8.6-58.9) Height (Feet): 5 Height (Inches): 7.00 Weight (Pounds): 140 Medications Current Medications Medications (Trade) Dose Ordered Sig/Pauline Route PRN Reason Start Time Stop Time Status Last Admin Dose Admin Acetaminophen (Tylenol) 650 mg Q4H PRN ORAL FEVER 11/18/18 07:45 12/18/18 07:44 Albuterol/ Ipratropium (Albuterol/ Ipratropium) 3 ml Q4H PRN HHN Shortness of Breath 11/18/18 07:45 11/23/18 07:44 Carbidopa/Levodopa (Sinemet 25/100) 1 tab THREE TIMES A DAY ORAL 11/18/18 09:00 12/18/18 08:59 Cefepime HCl 2 gm/ Dextrose 110 ml @ 220 mls/hr Q24H IV 11/18/18 16:30 11/25/18 16:29 Dextrose (Dextrose 50%) 25 ml Q30M PRN IV Hypoglycemia 11/18/18 07:45 12/18/18 07:44 Dextrose (Dextrose 50%) 50 ml Q30M PRN IV Hypoglycemia 11/18/18 07:45 12/18/18 07:44 Donepezil HCl (Aricept) 10 mg DAILY GT 11/18/18 09:00 12/18/18 08:59 Heparin Sodium/ Dextrose 500 ml @ 22.861 mls/ hr ADJUST PER PROTOCOL IV 11/18/18 13:30 12/18/18 13:29 Mirtazapine (Remeron) 15 mg BEDTIME GT 11/18/18 21:00 12/18/18 20:59 Morphine Sulfate (Morphine Sulfate) 2 mg Q4H PRN IVP Severe Pain (Pain Scale 7-10) 11/18/18 07:45 11/25/18 07:44 Ondansetron HCl (Zofran) 4 mg Q6H PRN IVP Nausea & Vomiting 11/18/18 07:45 12/18/18 07:44 Polyethylene Glycol (Miralax) 17 gm DAILYPRN PRN ORAL Constipation 11/18/18 07:45 12/18/18 07:44 Vancomycin HCl (Vanco rx to dose) 1 ea DAILY PRN MISC Per rx protocol 11/18/18 08:00 12/18/18 07:59 Vancomycin HCl 750 mg/Sodium Chloride 275 ml @ 183.333 mls/hr Q12H IVPB 11/18/18 21:00 11/23/18 20:59 Assessment/Plan Problem List: (1) Decubitus skin ulcer Assessment & Plan: Pt presented on admission with multiple pressure injuries. Violaceous macular rash noted to L shoulder ,Upper L side of back and lateral L chest. L upper ext edematous with scattered petechiae. Category 2 skin tear with 10% flap loss noted to L brachial. Small amt sanguineous exudate noted. Unstageable pressure injury Sacrum . Base of wound noted to have 100% mixed slough.necrosis .Edges semi-detached and erythematous. Surrounding non- blanchable erythema without elevation in skin temp ,or induration. (L)9.5cm x (W )6.5cm. NO odor or exudate noted. Full thickness pressure injury lumbar spine in close proximity to sacral pressure injury.Base of wound pink with scattered biofilm. (L)2cm x (W)1.6cm. (+ ) maceration along borders. Periwound without erythema or induration. DTPI noted to medial L heel (L)3.2cm x (W)4.5cm. Base of fluctuant with delineated erythematous borders. Periwound fluctuant with non-blanchable erythema.Additionally, an area of stable dry eschar noted to posterior L heel(L) 0.6cm x (W)0.8cm DTPI Noted to lateral R heel. Maroon discoloration that is fluctuant within base of wound.(L)2.5cm x (W)1cm. DTPI noted to medial R heel. Base of wound fluctuant and is maroon in colour (L) 1.5cm x (W)1cm. Maroon discoloration without fluctuance or induration noted to lateral R tibia , superior but in close proximity to lateral Malleolus.(L)1.4cm x (W)0.5cm. Tx.Plan: Cleanse skin tear L brachial. (Maintain Versatel Contact layer)Apply Silvasorb Gel. Cover with Optifoam drsg. Change every 7 days and prn. Cleanse Sacral wound with Saline. Apply Therahoney. Apply Moisture Barrier Paste periwound. Cover with Optifoam drsg. Change every 3 days and prn. Cleanse wound Lumbar spine with saline. Apply Therahoney. Apply Cavilon Skin Barrier periwound. Cover with Optifoam drsg. Change every 3 days and prn. Apply Cavilon Skin Barrier to Lateral R tibia, R heel and L heel. Cover each site with Optifoam drsg. Change every 7 days and prn. APM/FERNANDEZ mattress overlay. Reposition at least every 2hours or as tolerated. Off-load heels with pillow. ICD Codes: L89.90 - Pressure ulcer of unspecified site, unspecified stage SNOMED: 728584450 (2) Acute DVT (deep venous thrombosis) ICD Codes: I82.409 - Acute embolism and thrombosis of unspecified deep veins of unspecified lower extremity SNOMED: 054078031522737 (3) HCAP (healthcare-associated pneumonia) ICD Codes: J18.9 - Pneumonia, unspecified organism SNOMED: 288971009, 150557423 (4) UTI (urinary tract infection) ICD Codes: N39.0 - Urinary tract infection, site not specified SNOMED: 19957918, 108241322 Qualifiers: Qualified Codes: N30.00 - Acute cystitis without hematuria (5) Anemia, chronic disease ICD Codes: D63.8 - Anemia in other chronic diseases classified elsewhere SNOMED: 142430672, 288109924 (6) Sepsis ICD Codes: A41.9 - Sepsis, unspecified organism SNOMED: 62221530, 030724576 Qualifiers: Qualified Codes: A41.9 - Sepsis, unspecified organism (7) Feeding by G-tube ICD Codes: Z93.1 - Gastrostomy status SNOMED: 715765920, 280076907, 545462639 (8) COPD (chronic obstructive pulmonary disease) ICD Codes: J44.9 - Chronic obstructive pulmonary disease, unspecified SNOMED: 41159713 (9) Alzheimer's dementia ICD Codes: G30.9 - Alzheimer's disease, unspecified; F02.80 - Dementia in other diseases classified elsewhere without behavioral disturbance SNOMED: 98072684 (10) Parkinson disease ICD Codes: G20 - Parkinson's disease SNOMED: 04414605 (11) Seizures ICD Codes: R56.9 - Unspecified convulsions SNOMED: 24940244 Andrew Eugene Nov 18, 2018 13:05
--- NOTE | 2018-11-18 13:28 | Diagnostic Imaging Report ---
Indication: G-tube check Comparison: None Single view of the abdomen obtained Findings: There is contrast within the stomach and proximal small bowel. Gastrostomy tube is noted within the stomach lumen near the body. There is no leak identified. IMPRESSION: Gastrostomy tube within the body of the stomach. No leak
[2018-11-18] MEDS ORDERED: Heparin 25,000u/D5W 500ml 500 ML IV SCH ×2 (13:30→21:00)
--- NOTE | 2018-11-18 13:30 | NUR ---
NURSE NOTES: Abd Xray confirmed GT in placed, medic given per GT.
[2018-11-18] MEDS: Levodopa/Carbidopa 25/100 tab ORAL SCH ×2 (14:53→14:56)
[2018-11-18] MEDS: Donepezil 10mg tab GT SCH (14:54)
--- NOTE | 2018-11-18 15:08 | Consultation ---
History of Present Illness General Date patient seen: Nov 18, 2018 Chief Complaint: Fever Present Illness HPI 73 y/o M with hx of dementia, HTN, CKD, COPD, dysphagia s/p Gtube feeding, Parkinson disease, seizure disorder, multiple decubiti wounds, custodial resident presented to ED on 11/18 with fever, respiratory distress, leukocytosis and altered mental status Denied f/c, cough, congestion. Allergies: Coded Allergies: No Known Allergies (Unverified , 11/18/18) Medication History Scheduled Amino Acids/Protein Hydrolys (Pro-Stat Liquid), 30 ML GT TWICE A DAY, (Reported) Aspirin* (Aspir 81*), 81 MG GT DAILY, (Reported) Carbidopa/Levodopa 25-100 Mg* (Sinemet 25-100 Mg Tablet*), 1 TAB ORAL THREE TIMES A DAY, (Reported) Docusate Sodium* (Colace*), 100 MG GT DAILY, (Reported) Donepezil Hcl* (Aricept*), 10 MG GT DAILY, (Reported) Enoxaparin* (Lovenox*), 60 MG SUBQ EVERY 12 HOURS, (Reported) Famotidine (Famotidine), 20 MG GT TWICE A DAY, (Reported) Lactulose (Lactulose*), 30 ML GT DAILY, (Reported) Metoprolol Tartrate* (Metoprolol Tartrate*), 12.5 MG GT EVERY 12 HOURS, ( Reported) Mirtazapine* (Remeron*), 15 MG GT BEDTIME, (Reported) Prednisone* (Prednisone*), 10 MG GT DAILY, (Reported) Sennosides (Senna), 17.2 MG GT QHS, (Reported) Thiamine Hcl* (Vitamin B-1*), 100 MG GT DAILY, (Reported) Valproate Sodium (Valproic Acid), 250 MG GT BID, (Reported) Vitamin D (Vitamin D3), 5,000 UNITS GT DAILY, (Reported) Scheduled PRN Bisacodyl (Dulcolax), 10 MG RC DAILY PRN for Constipation, (Reported) Levalbuterol Hcl (Xopenex*), 0.63 MG HHN Q4H PRN for Shortness of Breath, ( Reported) Magnesium Hydroxide* (Milk Of Magnesia*), 30 ML GT DAILY PRN for Constipation, ( Reported) Na Phos,M-B/Na Phos,Di-Ba* (Fleet Enema*), 133 ML RECTAL EVERY OTHER DAY PRN for Constipation, (Reported) [Mylanta], 30 ML GT Q6HR PRN for Per rx protocol, (Reported) Patient History Healthcare decision maker NONE Resuscitation status Full Code Advanced Directive on File No Patient History Narrative Pmhx: as above Shx: Denies: smoking Fhx: non contributory Review of Systems All Other Systems: negative except mentioned in HPI Physical Exam Physical Exam Narrative General Appearance: WD/WN, no apparent distress Lines, tubes and drains: central line HEENT: normocephalic, atraumatic Neck: non-tender, normal alignment Breasts: no masses Cardiovascular/Chest: normal peripheral pulses, normal rate, regular rhythm Abdomen: normal bowel sounds, non tender Genitourinary/Rectal: normal genital exam, heme negative stool Extremities: normal range of motion Skin Exam: normal pigmentation 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 normal Last 24 Hour Vital Signs Date Time Temp Pulse Resp B/P (MAP) Pulse Ox O2 Delivery O2 Flow Rate FiO2 11/18/18 12:00 98 11/18/18 12:00 98.2 69 20 122/71 (88) 100 11/18/18 09:00 Venturi Mask 15.0 11/18/18 08:20 95 11/18/18 08:00 97.7 66 22 122/82 (95) 98 11/18/18 06:02 Venturi Mask 10.0 11/18/18 06:00 98 11/18/18 05:45 98.4 107 22 140/90 (107) 100 11/18/18 05:23 99.7 113 20 107/62 99 Venturi Mask 10.0 45 11/18/18 05:11 99.7 113 20 107/62 99 Venturi Mask 10.0 45 11/18/18 04:39 98 20 Venturi Mask 10.0 45 11/18/18 04:10 99.7 98 20 90/49 99 Non-Rebreather 15.0 100 11/18/18 04:10 98 20 Non-Rebreather 15.0 100 11/18/18 04:08 102 20 99 Non-Rebreather 15.0 100 11/18/18 03:50 92 20 97 Non-Rebreather 15.0 100 11/18/18 03:50 92 20 97 Non-Rebreather 15.0 100 11/18/18 03:24 97.9 90 18 95/53 (67) 96 Nasal Cannula Intake and Output 11/17/18 11/18/18 19:00 07:00 Output Total 60 ml Balance -60 ml Output Urine Total 60 ml # Bowel Movements 1 Laboratory Tests Test 11/18/18 04:00 11/18/18 05:10 11/18/18 13:15 White Blood Count 16.6 K/UL (4.8-10.8) H Red Blood Count 3.01 M/UL (4.70-6.10) L Hemoglobin 9.4 G/DL (14.2-18.0) L Hematocrit 28.3 % (42.0-52.0) L Mean Corpuscular Volume 94 FL (80-99) Mean Corpuscular Hemoglobin 31.3 PG (27.0-31.0) H Mean Corpuscular Hemoglobin Concent 33.3 G/DL (32.0-36.0) Red Cell Distribution Width 15.0 % (11.6-14.8) H Platelet Count 304 K/UL (150-450) Mean Platelet Volume 5.8 FL (6.5-10.1) L Neutrophils (%) (Auto) 84.1 % (45.0-75.0) H Lymphocytes (%) (Auto) 10.6 % (20.0-45.0) L Monocytes (%) (Auto) 4.5 % (1.0-10.0) Eosinophils (%) (Auto) 0.4 % (0.0-3.0) Basophils (%) (Auto) 0.3 % (0.0-2.0) Differential Total Cells Counted 100 Neutrophils % (Manual) 87 % (45-75) H Lymphocytes % (Manual) 9 % (20-45) L Monocytes % (Manual) 4 % (1-10) Eosinophils % (Manual) 0 % (0-3) Basophils % (Manual) 0 % (0-2) Band Neutrophils 0 % (0-8) Platelet Estimate Adequate Platelet Morphology Normal Erythrocyte Sedimentation Rate 122 MM/HR (0-20) H Reticulocyte Count 0.7 % (0.5-2.0) Prothrombin Time 10.7 SEC (9.30-11.50) Prothromb Time International Ratio 1.0 (0.9-1.1) Activated Partial Thromboplast Time 24 SEC (23-33) 24 SEC (23-33) Urine Color Yellow Urine Appearance Slightly cloudy Urine pH 6 (4.5-8.0) Urine Specific [place] 1.010 (1.005-1.035) Urine Protein 2+ (NEGATIVE) H Urine Glucose (UA) Negative (NEGATIVE) Urine Ketones Negative (NEGATIVE) Urine Blood 3+ (NEGATIVE) H Urine Nitrite Negative (NEGATIVE) Urine Bilirubin Negative (NEGATIVE) Urine Urobilinogen 8 MG/DL (0.0-1.0) H Urine Leukocyte Esterase 2+ (NEGATIVE) H Urine RBC 2-4 /HPF (0 - 0) H Urine WBC 10-15 /HPF (0 - 0) H Urine Squamous Epithelial Cells Few /LPF (NONE/OCC) Urine Bacteria Many /HPF (NONE) H Sodium Level 144 MMOL/L (136-145) Potassium Level 4.3 MMOL/L (3.5-5.1) Chloride Level 105 MMOL/L (98-107) Carbon Dioxide Level 32 MMOL/L (21-32) Anion Gap 7 mmol/L (5-15) Blood Urea Nitrogen 26 mg/dL (7-18) H Creatinine 0.6 MG/DL (0.55-1.30) Estimat Glomerular Filtration Rate mL/min (>60) Glucose Level 112 MG/DL (74-106) H Lactic Acid Level 2.10 mmol/L (0.4-2.0) H 1.80 mmol/L (0.66-2.22) Calcium Level 8.9 MG/DL (8.5-10.1) Iron Level 19 ug/dL (50-175) L Total Iron Binding Capacity 136 ug/dL (250-450) L Percent Iron Saturation 14 % (15-50) L Unsaturated Iron Binding 117 ug/dL (112-346) Total Bilirubin 0.8 MG/DL (0.2-1.0) Aspartate Amino Transf (AST/SGOT) 18 U/L (15-37) Alanine Aminotransferase (ALT/SGPT) 24 U/L (12-78) Alkaline Phosphatase 102 U/L (46-116) Lactate Dehydrogenase 232 U/L (81-234) Total Creatine Kinase 27 U/L (26-308) Creatine Kinase MB 1.2 NG/ML (0.0-3.6) Creatine Kinase MB Relative Index 4.4 Troponin I 0.095 ng/mL (0.000-0.056) Total Protein 6.3 G/DL (6.4-8.2) L Albumin 1.5 G/DL (3.4-5.0) L Globulin 4.8 g/dL Albumin/Globulin Ratio 0.3 (1.0-2.7) L Carcinoembryonic Antigen Pending Vitamin B12 Level 664 PG/ML (193-986) Folate 19.6 NG/ML (8.6-58.9) Height (Feet): 5 Height (Inches): 7.00 Weight (Pounds): 140 Medications Current Medications Medications (Trade) Dose Ordered Sig/Pauline Route PRN Reason Start Time Stop Time Status Last Admin Dose Admin Acetaminophen (Tylenol) 650 mg Q4H PRN ORAL FEVER 11/18/18 07:45 12/18/18 07:44 Albuterol/ Ipratropium (Albuterol/ Ipratropium) 3 ml Q4H PRN HHN Shortness of Breath 11/18/18 07:45 11/23/18 07:44 Carbidopa/Levodopa (Sinemet 25/100) 1 tab THREE TIMES A DAY ORAL 11/18/18 09:00 12/18/18 08:59 11/18/18 14:53 Cefepime HCl 2 gm/ Dextrose 110 ml @ 220 mls/hr Q24H IV 11/18/18 16:30 11/25/18 16:29 Dextrose (Dextrose 50%) 25 ml Q30M PRN IV Hypoglycemia 11/18/18 07:45 12/18/18 07:44 Dextrose (Dextrose 50%) 50 ml Q30M PRN IV Hypoglycemia 11/18/18 07:45 12/18/18 07:44 Donepezil HCl (Aricept) 10 mg DAILY GT 11/18/18 09:00 12/18/18 08:59 11/18/18 14:54 Heparin Sodium/ Dextrose 500 ml @ 22.861 mls/ hr ADJUST PER PROTOCOL IV 11/18/18 13:30 12/18/18 13:29 11/18/18 13:19 Mirtazapine (Remeron) 15 mg BEDTIME GT 11/18/18 21:00 12/18/18 20:59 Morphine Sulfate (Morphine Sulfate) 2 mg Q4H PRN IVP Severe Pain (Pain Scale 7-10) 11/18/18 07:45 11/25/18 07:44 Ondansetron HCl (Zofran) 4 mg Q6H PRN IVP Nausea & Vomiting 11/18/18 07:45 12/18/18 07:44 Polyethylene Glycol (Miralax) 17 gm DAILYPRN PRN ORAL Constipation 11/18/18 07:45 12/18/18 07:44 Vancomycin HCl (Vanco rx to dose) 1 ea DAILY PRN MISC Per rx protocol 11/18/18 08:00 12/18/18 07:59 Vancomycin HCl 750 mg/Sodium Chloride 275 ml @ 183.333 mls/hr Q12H IVPB 11/18/18 21:00 11/23/18 20:59 Assessment/Plan Assessment/Plan: Abx: IV Vancomycin 11/18- Cefepime 11/18- Levaquin x 1 11/18 Assessment: Pneumonia -CXR: Patchy bilateral infiltrates versus mixed interstitial alveolar edema noted. Afebrile Leukocytosis Acute respiratory failure Sacral decubitus ulcer, necrotic, surrounding cellulitis dementia HTN CKD COPD dysphagia s/p Gtube feeding Parkinson disease seizure disorder multiple decubiti wounds custodial resident Plan: -Continue empiric IV Vancomycin and Cefepime #1 for PNA pending cultures -f/u cx -Monitor CBC/CMP, temperatures -sp cx, legionella ag urine -GT care -aspiration precautions -wound care per surgical team Thank you for this consultation. Will continue to follow along with you. Discussed with Neva Paulino M.D. Nov 18, 2018 15:08
--- NOTE | 2018-11-18 16:15 | History and Physical Report ---
DATE OF ADMISSION: 11/18/2018 DATE AND TIME SEEN: 11/18/2018, approximately at 12 noon. CONSULTANTS: 1. David Carrasquillo M.D. 2. Salinas Winter M.D. 3. Laith Mason M.D. CHIEF COMPLAINT: Shortness of breath, weakness, lethargy, pneumonia, UTI, and sepsis. BRIEF HISTORY: This is a 73-year-old male from [facility] admitted with the above-mentioned diagnosis, admitted to [facility] for further care. Currently, O2 mask in place, sleepy, lethargic in bed, not talking much. REVIEW OF SYSTEMS: Unavailable. PAST MEDICAL HISTORY: Includes DVT, anemia, COPD, Alzheimer, and Parkinson. PAST SURGICAL HISTORY: G-tube. ALLERGIES: Denies. MEDICATIONS: Include mirtazapine, vancomycin, cefepime, carbidopa, benazepril, and Zofran. SOCIAL HISTORY: No smoking. No alcohol. No intravenous drug abuse. FAMILY HISTORY: Noncontributory. PHYSICAL EXAMINATION: GENERAL: Calm, lethargic in bed, O2 mask in place. Not responding to questions. VITAL SIGNS: Temperature 98 degrees, pulse 69, respirations 20, and blood pressure 122/71. CARDIOVASCULAR: No murmur. LUNGS: Poor air exchange. ABDOMEN: Bowel sounds distant. EXTREMITIES: No cyanosis or edema. NEUROLOGIC: The patient is flaccid in bed, not following directions. LABORATORY AND DIAGNOSTIC DATA: White count 16, hemoglobin and hematocrit 9.4/28, and platelets 304. BMP, not back yet actually. Lactic acid 2.1. Troponin 0.095. Urinalysis, 2+ leukocyte esterase. ASSESSMENT: 1. Pneumonia. 2. Urinary tract infection. 3. Sepsis. 4. Leukocytosis. 5. History of deep venous thrombosis. 6. Anemia. 7. Chronic obstructive pulmonary disease. 8. Alzheimer. 9. Parkinson. 10. Elevated troponin. PLAN: 1. O2 and pulmonary treatment. 2. Antibiotics per Infectious Disease. 3. Blood pressure control. 4. Dietary followup. 5. Pain control. 6. CBC and BMP in morning. Abdullahi Gonzalez D.O. DR: ALLEN JOB#: [id number] CC:
[2018-11-18] MEDS ORDERED: Cefepime HCl 2 GM in D5W 110 ML IV SCH (16:30)
--- NOTE | 2018-11-18 17:45 | NUR ---
TRANSFER TO FLOOR: Patient transferred to Telemetry per bed awake,non verbal in no resp distress, Report given to Porter Worrell RN. Belongings and medications given to receiving RN.
--- NOTE | 2018-11-18 17:46 | NUR ---
NURSE NOTES: Received report from MONA Evans. The patient is awake but non-verbal. The patient is stable without acute distress or shortness of breath. The patient's vital signs upon arrival to the unit was as follows: blood pressure of 111/71, pulse 99, SpO2 of 96% in 10L Venturi mask, and temperature of 97.7. The patient is on heparin drip 18u/kg/hr, which is 22.86mL/hr and next PTT will be drawn on 1929 timed. The patient does not have active signs and symptoms of bleeding. The patient has right AC 18G and right FA 22G, which are intact and patent. G-tube placement confirmed. Will continue plan of care. Addendum: 11/18/18 at 1945 by Porter Patton RN The patient's bed in the lowest position, call light in reach, and fall, aspiration, and seizure precaution reinforced.
--- NOTE | 2018-11-18 18:00 | NUR ---
NURSE NOTES: Wound picture and dressing change completed for sacral stage IV, Left heel DTI, and left upper skin tear today. The charge nurse was notified.
[2018-11-18] MEDS: Levodopa/Carbidopa 25/100 tab GT SCH (18:41)
--- NOTE | 2018-11-18 19:30 | NUR ---
NURSE NOTES: Report given to MONA Julian. The patient is resting on the bed without acute distress or shortness of breath. The patient's bed in the lowest position, call light in reach, and fall, aspiration, and seizure precaution reinforced. Endorsed plan of care.
--- NOTE | 2018-11-18 19:31 | NUR ---
NURSE NOTES: Received patient from Angelica UDNN. Patient is asleep receiving oxygen via Venturi Mask at 10L/min. Patient's Gtube is patent and intact. Bradley catheter is patent and draining. IV site is Right AC 18g receiving Heparin drip at 18u/kg/hr, other IV site is Right forearm 22g patent and asymptomatic. Bed is locked, placed in lowest position, side rails up x3 and padded, call light within reach. Will continue to monitor.
--- NOTE | 2018-11-18 20:49 | NUR ---
NURSE NOTES: Debby from Pharmacy changed rate to 22u/kg/hr, (27.941cc/hr) for heparin drip. Also ordered 5000u IV bolus of heparin.
[2018-11-18] MEDS ORDERED: Heparin 5000 units/ml inj IV SCH (21:00)
--- NOTE | 2018-11-18 21:30 | NUR ---
NURSE NOTES: Heparin drip changed to 22 u/kg/hr, and heparin IV bolus given. Will continue to monitor.
[2018-11-18] MEDS: Vancomycin 750mg/NS 275ml IVPB SCH ×2 (21:40)
[2018-11-18] MEDS ORDERED: Vancomycin 1 GM in D5W 275 ML IV SCH (23:00)
[2018-11-19] VITALS: BP 100/63
--- NOTE | 2018-11-19 00:30 | Consultation ---
DATE OF CONSULTATION: 11/18/2018 CARDIOLOGY CONSULTATION CONSULTING PHYSICIAN: Earl Washington M.D. REFERRING PHYSICIAN: Abdullahi Gonzalez D.O. REASON FOR CONSULTATION: Management of hypertension and history of DVT. HISTORY OF PRESENT ILLNESS: The patient is a 73-year-old gentleman with history of dementia, dysphagia status post G-tube placement, Parkinson disease, and seizure was brought from [facility] for altered mental status. The patient was found to be in respiratory distress. The patient also has lower extremity edema and lower extremity duplex showed acute DVT on the right leg. The patient also has chronic left leg DVT. Cardiology consultation was obtained for further evaluation and management. REVIEW OF SYSTEMS: Review of systems was negative other than what was mentioned above. PAST MEDICAL HISTORY: As mentioned above. FAMILY HISTORY: Noncontributory. SOCIAL HISTORY: [facility] resident. Does not smoke or drink alcohol. PHYSICAL EXAMINATION: VITAL SIGNS: Blood pressure is 140/90, pulse 90, respirations 18, and he is afebrile. HEAD AND NECK: No JVD. LUNGS: Decreased breath sounds. CARDIOVASCULAR: Regular S1 and S2 with no gallop . ABDOMEN: Soft. There is a G-tube. EXTREMITIES: Right leg edema. LABORATORY AND DIAGNOSTIC DATA: White count of 16.7, hemoglobin 9.4, hematocrit 28.3, platelet count 304. . Sodium 144, potassium 4.3, BUN of 23, creatinine 0.6, glucose of 112. His INR is 1. Urinalysis showed many bacteria, 2+ leukocyte esterase. ASSESSMENT AND PLAN: 1. Hypertension. Add p.r.n. clonidine to his medical regimen. Get an echocardiogram to evaluate for ejection fraction and wall motion abnormality. 2. Acute right leg DVT. The patient has history of recurrent DVT and was on Lovenox as outpatient, . I will start the patient on heparin drip per pharmacy. 3. Possible pneumonia and sepsis. Further evaluation by Dr. Carrasquillo. 4. Seizure disorder. 5. Parkinsonism. 6. COPD. 7. UTI. Thank you very much for allowing me to participate in the care of this patient. Please do not hesitate to contact me for any questions regarding my evaluation. Earl Washington M.D. DR: Jeff JOB#: [id number] CC:
[2018-11-19 03:54] LABS: HEMATOCRIT 22.4 % (42.0-52.0); HEMOGLOBIN 7.6 G/DL (14.2-18.0); MEAN CORPUSCULAR VOLUME 95 FL (80-99); PLATELET COUNT 244 K/UL (150-450); RED BLOOD COUNT 2.35 M/UL (4.70-6.10); RED CELL DISTRIBUTION WIDTH 15.4 % (11.6-14.8); WHITE BLOOD COUNT 11.6 K/UL (4.8-10.8)
[2018-11-19 03:58] LABS: ALANINE AMINOTRANSFERASE 20 U/L (12-78); ALBUMIN 1.1 G/DL (3.4-5.0); ALBUMIN/GLOBULIN RATIO 0.3 (1.0-2.7); ALKALINE PHOSPHATASE 80 U/L (46-116); ANION GAP 5 mmol/L (5-15); ASPARTATE AMINO TRANSFERASE 17 U/L (15-37); BILIRUBIN,TOTAL 0.6 MG/DL (0.2-1.0); BLOOD UREA NITROGEN 23 mg/dL (7-18); CALCIUM 7.8 MG/DL (8.5-10.1); CARBON DIOXIDE 29 MMOL/L (21-32); CHLORIDE 105 MMOL/L (98-107); CREATININE 0.4 MG/DL (0.55-1.30); PHOSPHORUS 3.3 MG/DL (2.5-4.9); SODIUM 139 MMOL/L (136-145)
[2018-11-19 04:00] VITALS: BP 101/49
--- NOTE | 2018-11-19 04:00 | NUR ---
NURSE NOTES: Upon cleaning the patient, blood was noted on the patients bed around buttocks and patient's stool. Stopped heparin drip.
[2018-11-19] MEDS ORDERED: Heparin 5000 units/ml inj IV SCH (04:15)
--- NOTE | 2018-11-19 04:44 | NUR ---
NURSE NOTES: Contacted Dr. Carrasquillo about stopping heparin drip and Hgb level of 7.6. Awaiting orders from doctor.
--- NOTE | 2018-11-19 04:51 | NUR ---
NURSE NOTES: Contacted Dr. Washington's office regarding stopping heparin drip and Hgb level of 7.6. Awaiting orders.
--- NOTE | 2018-11-19 05:35 | NUR ---
NURSE NOTES: Second call made to Dr. Carrasquillo's office regarding hemoglobing level of 7.6. Awaiting orders.
--- NOTE | 2018-11-19 06:34 | NUR ---
NURSE NOTES: Dr. Washington ordered repeat CBC stat.
--- NOTE | 2018-11-19 07:16 | NUR ---
NURSE NOTES: Received bedside report from Davin RN. Pt. in bed, awake, non-verbal. No sign of distress. On venturi mask at 10LPM. No grimacing noted. F/C in placed patent/intact draining yellow colored urine. IV site at right FA #22g and right AC #18g. in placed patent/intact S.L. Padded side rails in placed. Bed in low position, locked. Call light within reach. Will cont. to monitor.
--- NOTE | 2018-11-19 07:34 | NUR ---
HAND-OFF: Report given to Gay DUNN. Endorsed Blood transfusion to oncoming nurse and nurse aware of low hgb levels.
[2018-11-19 07:35] LABS: HEMATOCRIT 20.5 % (42.0-52.0); MEAN CORPUSCULAR VOLUME 93 FL (80-99); PLATELET COUNT 249 K/UL (150-450); RED BLOOD COUNT 2.22 M/UL (4.70-6.10); RED CELL DISTRIBUTION WIDTH 14.6 % (11.6-14.8); WHITE BLOOD COUNT 11.3 K/UL (4.8-10.8)
[2018-11-19 08:00] VITALS: BP 90/43
--- NOTE | 2018-11-19 08:01 | NUR ---
RADIOLOGY: PCXR completed 0800 hrs. NF
[2018-11-19] MEDS: Levodopa/Carbidopa 25/100 tab GT SCH ×3 (09:10→17:59)
[2018-11-19] MEDS: Donepezil 10mg tab GT SCH (09:10)
[2018-11-19] MEDS: Vancomycin 750mg/NS 275ml IVPB SCH ×2 (09:10)
--- NOTE | 2018-11-19 09:28 | General Progress Note ---
Progress Note Progress Note Pt doesn't have any family members. He can not sign his consents. He has end stage dementia, Parkinson with Gtube. He need Blood transfusion and IVC filter insertion because of acute DVT and large blood in stool. David Carrasquillo MD Nov 19, 2018 09:28
[2018-11-19] MEDS ORDERED: Lidocaine 1% Plain 30 ml INJ PRN (09:30)
--- NOTE | 2018-11-19 09:32 | Pulmonology Progress Note ---
Assessment/Plan Problems: (1) HCAP (healthcare-associated pneumonia) (2) Sepsis (3) Acute DVT (deep venous thrombosis) (4) Seizures (5) COPD (chronic obstructive pulmonary disease) (6) Anemia, chronic disease (7) Feeding by G-tube (8) Parkinson disease (9) Alzheimer's dementia Assessment/Plan prbc today IVC filter continue abx check cultures check electrolytes iv fluids check h/h after transfusion Subjective ROS Limited/Unobtainable: Yes Interval Events: awake Constitutional: Reports: no symptoms Allergies: Coded Allergies: No Known Allergies (Unverified , 11/18/18) Objective Last 24 Hour Vital Signs Date Time Temp Pulse Resp B/P (MAP) Pulse Ox O2 Delivery O2 Flow Rate FiO2 11/19/18 08:00 97.6 96 20 90/43 (59) 100 11/19/18 04:00 97.7 89 18 101/49 (66) 97 11/19/18 03:27 95 11/19/18 00:00 97.7 97 18 100/63 (75) 97 11/18/18 23:28 91 11/18/18 21:00 Venturi Mask 10.0 11/18/18 20:00 98.1 90 18 110/63 (79) 97 11/18/18 19:04 83 11/18/18 17:46 97.7 99 20 111/71 (84) 96 11/18/18 16:00 85 11/18/18 16:00 97.7 90 20 91/54 (66) 100 11/18/18 12:00 98 11/18/18 12:00 98.2 69 20 122/71 (88) 100 Intake and Output 11/18/18 11/19/18 18:59 06:59 Intake Total 114.305 ml 207.267 ml Output Total 400 ml 300 ml Balance -285.695 ml -92.733 ml Intake IV Total 114.305 ml 207.267 ml Output Urine Total 400 ml 300 ml General Appearance: WD/WN HEENT: normocephalic, atraumatic Respiratory/Chest: chest wall non-tender, lungs clear Cardiovascular: normal peripheral pulses, regular rhythm Abdomen: normal bowel sounds, soft, non tender Genitourinary: normal external genitalia Extremities: no cyanosis Skin: no lesions, no ulcers Neurologic/Psychiatric: grip assembler II-XII grossly normal Microbiology Date/Time Source Procedure Growth Status 11/18/18 04:00 Urine,Clean Catch Urine Culture - Preliminary Gram Negative Bacillus 1 Resulted Laboratory Tests 11/18/18 13:15: Activated Partial Thromboplast Time 24 11/18/18 20:10: Activated Partial Thromboplast Time 32 11/19/18 02:15: Stool Occult Blood [Pending] 11/19/18 03:30: Activated Partial Thromboplast Time 40H, White Blood Count 11.6H, Red Blood Count 2.35L, Hemoglobin 7.6L, Hematocrit 22.4L, Mean Corpuscular Volume 95, Mean Corpuscular Hemoglobin 32.1H, Mean Corpuscular Hemoglobin Concent 33.8, Red Cell Distribution Width 15.4H, Platelet Count 244, Mean Platelet Volume 6.0L , Neutrophils (%) (Auto) , Lymphocytes (%) (Auto) , Monocytes (%) (Auto) , Eosinophils (%) (Auto) , Basophils (%) (Auto) , Sodium Level 139, Potassium Level 4.0, Chloride Level 105, Carbon Dioxide Level 29, Anion Gap 5, Blood Urea Nitrogen 23H, Creatinine 0.4L, Estimat Glomerular Filtration Rate , Glucose Level 101, Calcium Level 7.8L, Phosphorus Level 3.3, Total Bilirubin 0.6, Aspartate Amino Transf (AST/SGOT) 17, Alanine Aminotransferase (ALT/SGPT) 20, Alkaline Phosphatase 80, Pro-B-Type Natriuretic Peptide 356H, Total Protein 4.8L , Albumin 1.1L, Globulin 3.7, Albumin/Globulin Ratio 0.3L 11/19/18 07:30: White Blood Count 11.3H, Red Blood Count 2.22L, Hemoglobin 7.0L, Hematocrit 20.5L, Mean Corpuscular Volume 93, Mean Corpuscular Hemoglobin 31.7H, Mean Corpuscular Hemoglobin Concent 34.2, Red Cell Distribution Width 14.6, Platelet Count 249, Mean Platelet Volume 5.6L, Neutrophils (%) (Auto) , Lymphocytes (%) ( Auto) , Monocytes (%) (Auto) , Eosinophils (%) (Auto) , Basophils (%) (Auto) , Differential Total Cells Counted 100, Neutrophils % (Manual) 92H, Lymphocytes % (Manual) 4L, Monocytes % (Manual) 4, Eosinophils % (Manual) 0, Basophils % ( Manual) 0, Band Neutrophils 0, Platelet Estimate Adequate, Platelet Morphology Normal, Hypochromasia 3+, Anisocytosis 1+, Spherocytes 1+ Current Medications Medications (Trade) Dose Ordered Sig/Pauline Route PRN Reason Start Time Stop Time Status Last Admin Dose Admin Acetaminophen (Tylenol) 650 mg Q4H PRN ORAL FEVER 11/18/18 07:45 12/18/18 07:44 Albuterol/ Ipratropium (Albuterol/ Ipratropium) 3 ml Q4H PRN HHN Shortness of Breath 11/18/18 07:45 11/23/18 07:44 Carbidopa/Levodopa (Sinemet 25/) 1 tab THREE TIMES A DAY GT 11/18/18 18:30 12/18/18 18:29 11/19/18 09:10 Cefepime HCl 2 gm/ Dextrose 110 ml @ 220 mls/hr Q24H IV 11/18/18 16:30 11/25/18 16:29 11/18/18 16:31 Dextrose (Dextrose 50%) 25 ml Q30M PRN IV Hypoglycemia 11/18/18 07:45 12/18/18 07:44 Dextrose (Dextrose 50%) 50 ml Q30M PRN IV Hypoglycemia 11/18/18 07:45 12/18/18 07:44 Donepezil HCl (Aricept) 10 mg DAILY GT 11/18/18 09:00 12/18/18 08:59 11/19/18 09:10 Heparin Sodium/ Dextrose 500 ml @ 27.941 mls/ hr ADJUST PER PROTOCOL IV 11/18/18 21:00 12/18/18 20:59 11/18/18 21:24 Lidocaine HCl (Xylocaine 1% 30ml) 30 ml NOW PRN INJ Radiology Procedure 11/19/18 09:30 11/22/18 09:24 UNV Mirtazapine (Remeron) 15 mg BEDTIME GT 11/18/18 21:00 12/18/18 20:59 11/18/18 21:21 Morphine Sulfate (Morphine Sulfate) 2 mg Q4H PRN IVP Severe Pain (Pain Scale 7-10) 11/18/18 07:45 11/25/18 07:44 Ondansetron HCl (Zofran) 4 mg Q6H PRN IVP Nausea & Vomiting 11/18/18 07:45 12/18/18 07:44 Polyethylene Glycol (Miralax) 17 gm DAILYPRN PRN ORAL Constipation 11/18/18 07:45 12/18/18 07:44 Vancomycin HCl (Vanco rx to dose) 1 ea DAILY PRN MISC Per rx protocol 11/18/18 08:00 12/18/18 07:59 Vancomycin HCl 750 mg/Sodium Chloride 275 ml @ 183.333 mls/hr Q12H IVPB 11/18/18 21:00 11/23/18 20:59 11/19/18 09:10 David Carrasquillo MD Nov 19, 2018 09:32
--- NOTE | 2018-11-19 10:30 | NUR ---
NURSE NOTES: Blood transfusion on going with no a/r noted at present. Afebrile. Will cont. to monitor.
--- NOTE | 2018-11-19 10:42 | Cardiac Electrophysiology PN ---
Assessment/Plan Assessment/Plan 1. Hypertension. Add p.r.n. clonidine to his medical regimen. Echo EF 55% 2. Acute right leg DVT. Heparin drip DCed for rectal bleed. IVC filter pending. 3. Possible pneumonia and sepsis.On Abx by Dr. Carrasquillo. 4. Seizure disorder. 5. Parkinsonism. 6. COPD. 7. UTI. 8. Anemia and rectal bleed. Colonoscopy and transfusion today DW RN and Dr Carrasquillo Subjective Subjective Getting transfusion.Heparin was DCed last night for blood in stool and drop in Hb to 7. Scheduled for colonoscopy today. Still in sinus tach Objective Last 24 Hour Vital Signs Date Time Temp Pulse Resp B/P (MAP) Pulse Ox O2 Delivery O2 Flow Rate FiO2 11/19/18 09:40 97 Venturi Mask 10.0 45 11/19/18 09:00 Venturi Mask 10.0 11/19/18 08:00 97.6 96 20 90/43 (59) 100 11/19/18 04:00 97.7 89 18 101/49 (66) 97 11/19/18 03:27 95 11/19/18 00:00 97.7 97 18 100/63 (75) 97 11/18/18 23:28 91 11/18/18 21:00 Venturi Mask 10.0 11/18/18 20:00 98.1 90 18 110/63 (79) 97 11/18/18 19:04 83 11/18/18 17:46 97.7 99 20 111/71 (84) 96 11/18/18 16:00 85 11/18/18 16:00 97.7 90 20 91/54 (66) 100 11/18/18 12:00 98 11/18/18 12:00 98.2 69 20 122/71 (88) 100 Intake and Output 11/18/18 11/19/18 18:59 06:59 Intake Total 114.305 ml 207.267 ml Output Total 400 ml 300 ml Balance -285.695 ml -92.733 ml Intake IV Total 114.305 ml 207.267 ml Output Urine Total 400 ml 300 ml Laboratory Tests Test 11/18/18 13:15 11/18/18 20:10 11/19/18 02:15 11/19/18 03:30 Activated Partial Thromboplast Time 24 SEC (23-33) 32 SEC (23-33) 40 SEC (23-33) H Stool Occult Blood Pending White Blood Count 11.6 K/UL (4.8-10.8) H Red Blood Count 2.35 M/UL (4.70-6.10) L Hemoglobin 7.6 G/DL (14.2-18.0) L Hematocrit 22.4 % (42.0-52.0) L Mean Corpuscular Volume 95 FL (80-99) Mean Corpuscular Hemoglobin 32.1 PG (27.0-31.0) H Mean Corpuscular Hemoglobin Concent 33.8 G/DL (32.0-36.0) Red Cell Distribution Width 15.4 % (11.6-14.8) H Platelet Count 244 K/UL (150-450) Mean Platelet Volume 6.0 FL (6.5-10.1) L Neutrophils (%) (Auto) % (45.0-75.0) Lymphocytes (%) (Auto) % (20.0-45.0) Monocytes (%) (Auto) % (1.0-10.0) Eosinophils (%) (Auto) % (0.0-3.0) Basophils (%) (Auto) % (0.0-2.0) Sodium Level 139 MMOL/L (136-145) Potassium Level 4.0 MMOL/L (3.5-5.1) Chloride Level 105 MMOL/L (98-107) Carbon Dioxide Level 29 MMOL/L (21-32) Anion Gap 5 mmol/L (5-15) Blood Urea Nitrogen 23 mg/dL (7-18) H Creatinine 0.4 MG/DL (0.55-1.30) L Estimat Glomerular Filtration Rate mL/min (>60) Glucose Level 101 MG/DL (74-106) Calcium Level 7.8 MG/DL (8.5-10.1) L Phosphorus Level 3.3 MG/DL (2.5-4.9) Total Bilirubin 0.6 MG/DL (0.2-1.0) Aspartate Amino Transf (AST/SGOT) 17 U/L (15-37) Alanine Aminotransferase (ALT/SGPT) 20 U/L (12-78) Alkaline Phosphatase 80 U/L (46-116) Pro-B-Type Natriuretic Peptide 356 pg/mL (0-125) H Total Protein 4.8 G/DL (6.4-8.2) L Albumin 1.1 G/DL (3.4-5.0) L Globulin 3.7 g/dL Albumin/Globulin Ratio 0.3 (1.0-2.7) L Test 11/19/18 07:30 White Blood Count 11.3 K/UL (4.8-10.8) H Red Blood Count 2.22 M/UL (4.70-6.10) L Hemoglobin 7.0 G/DL (14.2-18.0) L Hematocrit 20.5 % (42.0-52.0) L Mean Corpuscular Volume 93 FL (80-99) Mean Corpuscular Hemoglobin 31.7 PG (27.0-31.0) H Mean Corpuscular Hemoglobin Concent 34.2 G/DL (32.0-36.0) Red Cell Distribution Width 14.6 % (11.6-14.8) Platelet Count 249 K/UL (150-450) Mean Platelet Volume 5.6 FL (6.5-10.1) L Neutrophils (%) (Auto) % (45.0-75.0) Lymphocytes (%) (Auto) % (20.0-45.0) Monocytes (%) (Auto) % (1.0-10.0) Eosinophils (%) (Auto) % (0.0-3.0) Basophils (%) (Auto) % (0.0-2.0) Differential Total Cells Counted 100 Neutrophils % (Manual) 92 % (45-75) H Lymphocytes % (Manual) 4 % (20-45) L Monocytes % (Manual) 4 % (1-10) Eosinophils % (Manual) 0 % (0-3) Basophils % (Manual) 0 % (0-2) Band Neutrophils 0 % (0-8) Platelet Estimate Adequate Platelet Morphology Normal Hypochromasia 3+ Anisocytosis 1+ Spherocytes 1+ Microbiology Date/Time Source Procedure Growth Status 11/18/18 03:45 Blood Blood Culture - Preliminary Resulted 11/18/18 04:00 Urine,Clean Catch Urine Culture - Preliminary Gram Negative Bacillus 1 Resulted Objective HEAD AND NECK: No JVD. LUNGS: Decreased breath sounds. CARDIOVASCULAR: Regular S1 and S2 with no gallop . ABDOMEN: Soft. There is a G-tube. EXTREMITIES: Leg edema. Earl Washington MD Nov 19, 2018 10:42
--- NOTE | 2018-11-19 10:47 | Cardiac Electrophysiology PN ---
Assessment/Plan Assessment/Plan 1. Sinus tach due to anemia and sepsis and beta danya withdrawal as was on Metoprolol 12.5 bid at [facility] 2. Hypertension. Hold Metoprolol as BP is 90s. Add p.r.n. clonidine to his medical regimen. Echo EF 55% 3. Acute right leg DVT. Heparin drip DCed for rectal bleed. IVC filter pending. 4. Possible pneumonia and sepsis.On Abx by Dr. Carrasquillo. 5. Parkinsonism. 6. COPD. 7. UTI. 8. Anemia and rectal bleed. Colonoscopy and transfusion today 9. Seizure disorder. 10. S/P PEG DW RN and Dr Carrasquillo Subjective Subjective Getting transfusion.Heparin was DCed last night for blood in stool and drop in Hb to 7. Scheduled for colonoscopy today. Still in sinus tach Objective Last 24 Hour Vital Signs Date Time Temp Pulse Resp B/P (MAP) Pulse Ox O2 Delivery O2 Flow Rate FiO2 11/19/18 09:40 97 Venturi Mask 10.0 45 11/19/18 09:00 Venturi Mask 10.0 11/19/18 08:00 97.6 96 20 90/43 (59) 100 11/19/18 04:00 97.7 89 18 101/49 (66) 97 11/19/18 03:27 95 11/19/18 00:00 97.7 97 18 100/63 (75) 97 11/18/18 23:28 91 11/18/18 21:00 Venturi Mask 10.0 11/18/18 20:00 98.1 90 18 110/63 (79) 97 11/18/18 19:04 83 11/18/18 17:46 97.7 99 20 111/71 (84) 96 11/18/18 16:00 85 11/18/18 16:00 97.7 90 20 91/54 (66) 100 11/18/18 12:00 98 11/18/18 12:00 98.2 69 20 122/71 (88) 100 Intake and Output 11/18/18 11/19/18 18:59 06:59 Intake Total 114.305 ml 207.267 ml Output Total 400 ml 300 ml Balance -285.695 ml -92.733 ml Intake IV Total 114.305 ml 207.267 ml Output Urine Total 400 ml 300 ml Laboratory Tests Test 11/18/18 13:15 11/18/18 20:10 11/19/18 02:15 11/19/18 03:30 Activated Partial Thromboplast Time 24 SEC (23-33) 32 SEC (23-33) 40 SEC (23-33) H Stool Occult Blood Pending White Blood Count 11.6 K/UL (4.8-10.8) H Red Blood Count 2.35 M/UL (4.70-6.10) L Hemoglobin 7.6 G/DL (14.2-18.0) L Hematocrit 22.4 % (42.0-52.0) L Mean Corpuscular Volume 95 FL (80-99) Mean Corpuscular Hemoglobin 32.1 PG (27.0-31.0) H Mean Corpuscular Hemoglobin Concent 33.8 G/DL (32.0-36.0) Red Cell Distribution Width 15.4 % (11.6-14.8) H Platelet Count 244 K/UL (150-450) Mean Platelet Volume 6.0 FL (6.5-10.1) L Neutrophils (%) (Auto) % (45.0-75.0) Lymphocytes (%) (Auto) % (20.0-45.0) Monocytes (%) (Auto) % (1.0-10.0) Eosinophils (%) (Auto) % (0.0-3.0) Basophils (%) (Auto) % (0.0-2.0) Sodium Level 139 MMOL/L (136-145) Potassium Level 4.0 MMOL/L (3.5-5.1) Chloride Level 105 MMOL/L (98-107) Carbon Dioxide Level 29 MMOL/L (21-32) Anion Gap 5 mmol/L (5-15) Blood Urea Nitrogen 23 mg/dL (7-18) H Creatinine 0.4 MG/DL (0.55-1.30) L Estimat Glomerular Filtration Rate mL/min (>60) Glucose Level 101 MG/DL (74-106) Calcium Level 7.8 MG/DL (8.5-10.1) L Phosphorus Level 3.3 MG/DL (2.5-4.9) Total Bilirubin 0.6 MG/DL (0.2-1.0) Aspartate Amino Transf (AST/SGOT) 17 U/L (15-37) Alanine Aminotransferase (ALT/SGPT) 20 U/L (12-78) Alkaline Phosphatase 80 U/L (46-116) Pro-B-Type Natriuretic Peptide 356 pg/mL (0-125) H Total Protein 4.8 G/DL (6.4-8.2) L Albumin 1.1 G/DL (3.4-5.0) L Globulin 3.7 g/dL Albumin/Globulin Ratio 0.3 (1.0-2.7) L Test 11/19/18 07:30 White Blood Count 11.3 K/UL (4.8-10.8) H Red Blood Count 2.22 M/UL (4.70-6.10) L Hemoglobin 7.0 G/DL (14.2-18.0) L Hematocrit 20.5 % (42.0-52.0) L Mean Corpuscular Volume 93 FL (80-99) Mean Corpuscular Hemoglobin 31.7 PG (27.0-31.0) H Mean Corpuscular Hemoglobin Concent 34.2 G/DL (32.0-36.0) Red Cell Distribution Width 14.6 % (11.6-14.8) Platelet Count 249 K/UL (150-450) Mean Platelet Volume 5.6 FL (6.5-10.1) L Neutrophils (%) (Auto) % (45.0-75.0) Lymphocytes (%) (Auto) % (20.0-45.0) Monocytes (%) (Auto) % (1.0-10.0) Eosinophils (%) (Auto) % (0.0-3.0) Basophils (%) (Auto) % (0.0-2.0) Differential Total Cells Counted 100 Neutrophils % (Manual) 92 % (45-75) H Lymphocytes % (Manual) 4 % (20-45) L Monocytes % (Manual) 4 % (1-10) Eosinophils % (Manual) 0 % (0-3) Basophils % (Manual) 0 % (0-2) Band Neutrophils 0 % (0-8) Platelet Estimate Adequate Platelet Morphology Normal Hypochromasia 3+ Anisocytosis 1+ Spherocytes 1+ Microbiology Date/Time Source Procedure Growth Status 11/18/18 03:45 Blood Blood Culture - Preliminary Resulted 11/18/18 04:00 Urine,Clean Catch Urine Culture - Preliminary Gram Negative Bacillus 1 Resulted Objective HEAD AND NECK: No JVD. LUNGS: Decreased breath sounds. CARDIOVASCULAR: Regular S1 and S2 with no gallop . ABDOMEN: Soft. There is a G-tube. EXTREMITIES: Leg edema. Earl Washington MD Nov 19, 2018 10:47
[2018-11-19 12:00] VITALS: BP 116/47
--- NOTE | 2018-11-19 12:30 | Diagnostic Imaging Report ---
Indication: Dyspnea Comparison: 11/18/2018 A single view chest radiograph was obtained. Findings: Patchy infiltrates demonstrated bilaterally in the perihilar and basilar aspects of both lungs without significant change. A small pleural effusion on the left not excluded. Lung volumes remain low. IMPRESSION: No significant change
--- NOTE | 2018-11-19 12:44 | NUR ---
CASE MANAGEMENT:REVIEW 11/19/18 SI: SEPSIS. PNEUMONIA. 97.6 109 20 90/43 97% ON VENTURI MASK 10L/45% FIO2 WBC+11.6 H/H-7.0/20.5 IS: TRANSFUSE 1 UNIT PRBC'S IVF@75/HR IV CEFEPIME Q12 IV VANCOMYCIN Q12 : NOW ON TELEMETRY
--- NOTE | 2018-11-19 13:20 | NUR ---
NURSE NOTES: S/P 1PRBC no a/r noted. Will cont. to monitor.
[2018-11-19] MEDS ORDERED: Nulytely 4L ORAL SCH (14:00)
[2018-11-19] MEDS: Cefepime 1gm in D5W 55ml IVPB SCH ×2 (14:10→21:10)
--- NOTE | 2018-11-19 14:38 | General Progress Note ---
Assessment/Plan Problem List: (1) Acute DVT (deep venous thrombosis) ICD Codes: I82.409 - Acute embolism and thrombosis of unspecified deep veins of unspecified lower extremity SNOMED: 388834409635148 (2) UTI (urinary tract infection) ICD Codes: N39.0 - Urinary tract infection, site not specified SNOMED: 56800163, 202599602 Qualifiers: Qualified Codes: N30.00 - Acute cystitis without hematuria (3) Anemia, chronic disease ICD Codes: D63.8 - Anemia in other chronic diseases classified elsewhere SNOMED: 345821169, [id number] (4) Parkinson disease ICD Codes: G20 - Parkinson's disease SNOMED: 43506492 (5) Alzheimer's dementia ICD Codes: G30.9 - Alzheimer's disease, unspecified; F02.80 - Dementia in other diseases classified elsewhere without behavioral disturbance SNOMED: 91604096 (6) COPD (chronic obstructive pulmonary disease) ICD Codes: J44.9 - Chronic obstructive pulmonary disease, unspecified SNOMED: 97488148 Status: unchanged Assessment/Plan: o2 pulm tx abx pt diet heme f/u cbc bmp am Subjective Constitutional: Reports: weakness Allergies: Coded Allergies: No Known Allergies (Unverified , 11/18/18) All Systems: reviewed and negative except above Subjective o2nc sleepy Objective Last 24 Hour Vital Signs Date Time Temp Pulse Resp B/P (MAP) Pulse Ox O2 Delivery O2 Flow Rate FiO2 11/19/18 12:00 98.2 101 18 116/47 (70) 98 11/19/18 09:40 97 Venturi Mask 10.0 45 11/19/18 09:00 Venturi Mask 10.0 11/19/18 08:00 97.6 96 20 90/43 (59) 100 11/19/18 07:52 109 11/19/18 04:00 97.7 89 18 101/49 (66) 97 11/19/18 03:27 95 11/19/18 00:00 97.7 97 18 100/63 (75) 97 11/18/18 23:28 91 11/18/18 21:00 Venturi Mask 10.0 11/18/18 20:00 98.1 90 18 110/63 (79) 97 11/18/18 19:04 83 11/18/18 17:46 97.7 99 20 111/71 (84) 96 11/18/18 16:00 85 11/18/18 16:00 97.7 90 20 91/54 (66) 100 Intake and Output 11/18/18 11/19/18 19:00 07:00 Intake Total 137.166 ml 184.406 ml Output Total 400 ml 300 ml Balance -262.834 ml -115.594 ml Intake IV Total 137.166 ml 184.406 ml Output Urine Total 400 ml 300 ml Laboratory Tests 11/18/18 20:10: Activated Partial Thromboplast Time 32 11/19/18 02:15: Stool Occult Blood Positive 11/19/18 03:30: Activated Partial Thromboplast Time 40H, White Blood Count 11.6H, Red Blood Count 2.35L, Hemoglobin 7.6L, Hematocrit 22.4L, Mean Corpuscular Volume 95, Mean Corpuscular Hemoglobin 32.1H, Mean Corpuscular Hemoglobin Concent 33.8, Red Cell Distribution Width 15.4H, Platelet Count 244, Mean Platelet Volume 6.0L , Neutrophils (%) (Auto) , Lymphocytes (%) (Auto) , Monocytes (%) (Auto) , Eosinophils (%) (Auto) , Basophils (%) (Auto) , Sodium Level 139, Potassium Level 4.0, Chloride Level 105, Carbon Dioxide Level 29, Anion Gap 5, Blood Urea Nitrogen 23H, Creatinine 0.4L, Estimat Glomerular Filtration Rate , Glucose Level 101, Calcium Level 7.8L, Phosphorus Level 3.3, Total Bilirubin 0.6, Aspartate Amino Transf (AST/SGOT) 17, Alanine Aminotransferase (ALT/SGPT) 20, Alkaline Phosphatase 80, Pro-B-Type Natriuretic Peptide 356H, Total Protein 4.8L , Albumin 1.1L, Globulin 3.7, Albumin/Globulin Ratio 0.3L 11/19/18 07:30: White Blood Count 11.3H, Red Blood Count 2.22L, Hemoglobin 7.0L, Hematocrit 20.5L, Mean Corpuscular Volume 93, Mean Corpuscular Hemoglobin 31.7H, Mean Corpuscular Hemoglobin Concent 34.2, Red Cell Distribution Width 14.6, Platelet Count 249, Mean Platelet Volume 5.6L, Neutrophils (%) (Auto) , Lymphocytes (%) ( Auto) , Monocytes (%) (Auto) , Eosinophils (%) (Auto) , Basophils (%) (Auto) , Differential Total Cells Counted 100, Neutrophils % (Manual) 92H, Lymphocytes % (Manual) 4L, Monocytes % (Manual) 4, Eosinophils % (Manual) 0, Basophils % ( Manual) 0, Band Neutrophils 0, Platelet Estimate Adequate, Platelet Morphology Normal, Hypochromasia 3+, Anisocytosis 1+, Spherocytes 1+ Height (Feet): 5 Height (Inches): 7.00 Weight (Pounds): 161 General Appearance: lethargic EENT: normal ENT inspection Neck: normal alignment Cardiovascular: normal peripheral pulses, normal rate, regular rhythm Respiratory/Chest: chest wall non-tender, lungs clear, normal breath sounds Abdomen: normal bowel sounds, non tender, soft Extremities: normal inspection Edema: no edema noted Arm (L), no edema noted Arm (R), no edema noted Leg (L), no edema noted Leg (R), no edema noted Pedal (L), no edema noted Pedal (R), no edema noted Generalized Neurologic: motor weakness Skin: normal pigmentation, warm/dry Abdullahi Gonzalez DO Nov 19, 2018 14:38
--- NOTE | 2018-11-19 15:57 | NUR ---
NURSE NOTES: WOUND CARE NOTES: Pt presented on admission with multiple pressure injuries. Violaceous macular rash noted to L shoulder ,Upper L side of back and lateral L chest. L upper ext edematous with scattered petechiae. Category 2 skin tear with 10% flap loss noted to L brachial. Small amt sanguineous exudate noted. Unstageable pressure injury Sacrum . Base of wound noted to have 100% mixed slough.necrosis .Edges semi-detached and erythematous. Surrounding non-blanchable erythema without elevation in skin temp ,or induration. (L)9.5cm x (W)6.5cm. NO odor or exudate noted. Full thickness pressure injury lumbar spine in close proximity to sacral pressure injury.Base of wound pink with scattered biofilm. (L)2cm x (W)1.6cm. (+) maceration along borders. Periwound without erythema or induration. DTPI noted to medial L heel (L)3.2cm x (W)4.5cm. Base of fluctuant with delineated erythematous borders. Periwound fluctuant with non-blanchable erythema.Additionally, an area of stable dry eschar noted to posterior L heel(L)0.6cm x (W)0.8cm DTPI Noted to lateral R heel. Maroon discoloration that is fluctuant within base of wound.(L)2.5cm x (W)1cm. DTPI noted to medial R heel. Base of wound fluctuant and is maroon in colour (L)1.5cm x (W)1cm. Maroon discoloration without fluctuance or induration noted to lateral R tibia ,superior but in close proximity to lateral Malleolus.(L)1.4cm x (W)0.5cm. Tx.Plan: Cleanse skin tear L brachial. (Maintain Versatel Contact layer)Apply Silvasorb Gel. Cover with Optifoam drsg. Change every 7 days and prn. Cleanse Sacral wound with Saline. Apply Therahoney. Apply Moisture Barrier Paste periwound. Cover with Optifoam drsg. Change every 3 days and prn. Cleanse wound Lumbar spine with saline. Apply Therahoney. Apply Cavilon Skin Barrier periwound. Cover with Optifoam drsg. Change every 3 days and prn. Apply Cavilon Skin Barrier to Lateral R tibia, R heel and L heel. Cover each site with Optifoam drsg. Change every 7 days and prn. APM/FERNANDEZ mattress overlay. Reposition at least every 2hours or as tolerated. Off-load heels with pillow.
--- NOTE | 2018-11-19 15:59 | Consultation ---
History of Present Illness General Chief Complaint: Fever Present Illness Allergies: Coded Allergies: No Known Allergies (Unverified , 11/18/18) Medication History Scheduled Amino Acids/Protein Hydrolys (Pro-Stat Liquid), 30 ML GT TWICE A DAY, (Reported) Aspirin* (Aspir 81*), 81 MG GT DAILY, (Reported) Carbidopa/Levodopa 25-100 Mg* (Sinemet 25-100 Mg Tablet*), 1 TAB ORAL THREE TIMES A DAY, (Reported) Docusate Sodium* (Colace*), 100 MG GT DAILY, (Reported) Donepezil Hcl* (Aricept*), 10 MG GT DAILY, (Reported) Enoxaparin* (Lovenox*), 60 MG SUBQ EVERY 12 HOURS, (Reported) Famotidine (Famotidine), 20 MG GT TWICE A DAY, (Reported) Lactulose (Lactulose*), 30 ML GT DAILY, (Reported) Metoprolol Tartrate* (Metoprolol Tartrate*), 12.5 MG GT EVERY 12 HOURS, ( Reported) Mirtazapine* (Remeron*), 15 MG GT BEDTIME, (Reported) Prednisone* (Prednisone*), 10 MG GT DAILY, (Reported) Sennosides (Senna), 17.2 MG GT QHS, (Reported) Thiamine Hcl* (Vitamin B-1*), 100 MG GT DAILY, (Reported) Valproate Sodium (Valproic Acid), 250 MG GT BID, (Reported) Vitamin D (Vitamin D3), 5,000 UNITS GT DAILY, (Reported) Scheduled PRN Bisacodyl (Dulcolax), 10 MG RC DAILY PRN for Constipation, (Reported) Levalbuterol Hcl (Xopenex*), 0.63 MG HHN Q4H PRN for Shortness of Breath, ( Reported) Magnesium Hydroxide* (Milk Of Magnesia*), 30 ML GT DAILY PRN for Constipation, ( Reported) Na Phos,M-B/Na Phos,Di-Ba* (Fleet Enema*), 133 ML RECTAL EVERY OTHER DAY PRN for Constipation, (Reported) [Mylanta], 30 ML GT Q6HR PRN for Per rx protocol, (Reported) Patient History Healthcare decision maker NONE Resuscitation status Full Code Advanced Directive on File No Physical Exam Last 24 Hour Vital Signs Date Time Temp Pulse Resp B/P (MAP) Pulse Ox O2 Delivery O2 Flow Rate FiO2 11/19/18 12:00 98.2 101 18 116/47 (70) 98 11/19/18 09:40 97 Venturi Mask 10.0 45 11/19/18 09:00 Venturi Mask 10.0 11/19/18 08:00 97.6 96 20 90/43 (59) 100 11/19/18 07:52 109 11/19/18 04:00 97.7 89 18 101/49 (66) 97 11/19/18 03:27 95 11/19/18 00:00 97.7 97 18 100/63 (75) 97 11/18/18 23:28 91 11/18/18 21:00 Venturi Mask 10.0 11/18/18 20:00 98.1 90 18 110/63 (79) 97 11/18/18 19:04 83 11/18/18 17:46 97.7 99 20 111/71 (84) 96 11/18/18 16:00 85 11/18/18 16:00 97.7 90 20 91/54 (66) 100 Intake and Output 11/18/18 11/19/18 19:00 07:00 Intake Total 137.166 ml 184.406 ml Output Total 400 ml 300 ml Balance -262.834 ml -115.594 ml Intake IV Total 137.166 ml 184.406 ml Output Urine Total 400 ml 300 ml Laboratory Tests Test 11/18/18 20:10 11/19/18 02:15 11/19/18 03:30 11/19/18 07:30 Activated Partial Thromboplast Time 32 SEC (23-33) 40 SEC (23-33) H Stool Occult Blood Positive (NEGATIVE) White Blood Count 11.6 K/UL (4.8-10.8) H 11.3 K/UL (4.8-10.8) H Red Blood Count 2.35 M/UL (4.70-6.10) L 2.22 M/UL (4.70-6.10) L Hemoglobin 7.6 G/DL (14.2-18.0) L 7.0 G/DL (14.2-18.0) L Hematocrit 22.4 % (42.0-52.0) L 20.5 % (42.0-52.0) L Mean Corpuscular Volume 95 FL (80-99) 93 FL (80-99) Mean Corpuscular Hemoglobin 32.1 PG (27.0-31.0) H 31.7 PG (27.0-31.0) H Mean Corpuscular Hemoglobin Concent 33.8 G/DL (32.0-36.0) 34.2 G/DL (32.0-36.0) Red Cell Distribution Width 15.4 % (11.6-14.8) H 14.6 % (11.6-14.8) Platelet Count 244 K/UL (150-450) 249 K/UL (150-450) Mean Platelet Volume 6.0 FL (6.5-10.1) L 5.6 FL (6.5-10.1) L Neutrophils (%) (Auto) % (45.0-75.0) % (45.0-75.0) Lymphocytes (%) (Auto) % (20.0-45.0) % (20.0-45.0) Monocytes (%) (Auto) % (1.0-10.0) % (1.0-10.0) Eosinophils (%) (Auto) % (0.0-3.0) % (0.0-3.0) Basophils (%) (Auto) % (0.0-2.0) % (0.0-2.0) Sodium Level 139 MMOL/L (136-145) Potassium Level 4.0 MMOL/L (3.5-5.1) Chloride Level 105 MMOL/L (98-107) Carbon Dioxide Level 29 MMOL/L (21-32) Anion Gap 5 mmol/L (5-15) Blood Urea Nitrogen 23 mg/dL (7-18) H Creatinine 0.4 MG/DL (0.55-1.30) L Estimat Glomerular Filtration Rate mL/min (>60) Glucose Level 101 MG/DL (74-106) Calcium Level 7.8 MG/DL (8.5-10.1) L Phosphorus Level 3.3 MG/DL (2.5-4.9) Total Bilirubin 0.6 MG/DL (0.2-1.0) Aspartate Amino Transf (AST/SGOT) 17 U/L (15-37) Alanine Aminotransferase (ALT/SGPT) 20 U/L (12-78) Alkaline Phosphatase 80 U/L (46-116) Pro-B-Type Natriuretic Peptide 356 pg/mL (0-125) H Total Protein 4.8 G/DL (6.4-8.2) L Albumin 1.1 G/DL (3.4-5.0) L Globulin 3.7 g/dL Albumin/Globulin Ratio 0.3 (1.0-2.7) L Differential Total Cells Counted 100 Neutrophils % (Manual) 92 % (45-75) H Lymphocytes % (Manual) 4 % (20-45) L Monocytes % (Manual) 4 % (1-10) Eosinophils % (Manual) 0 % (0-3) Basophils % (Manual) 0 % (0-2) Band Neutrophils 0 % (0-8) Platelet Estimate Adequate Platelet Morphology Normal Hypochromasia 3+ Anisocytosis 1+ Spherocytes 1+ Height (Feet): 5 Height (Inches): 7.00 Weight (Pounds): 161 Medications Current Medications Medications (Trade) Dose Ordered Sig/Pauline Route PRN Reason Start Time Stop Time Status Last Admin Dose Admin Acetaminophen (Tylenol) 650 mg Q4H PRN ORAL FEVER 11/18/18 07:45 12/18/18 07:44 Albuterol/ Ipratropium (Albuterol/ Ipratropium) 3 ml Q4H PRN HHN Shortness of Breath 11/18/18 07:45 11/23/18 07:44 Carbidopa/Levodopa (Sinemet 25/100) 1 tab THREE TIMES A DAY GT 11/18/18 18:30 12/18/18 18:29 11/19/18 14:08 Cefepime HCl 1 gm/ Dextrose 55 ml @ 110 mls/hr BID@1000,2200 IVPB 11/19/18 13:00 11/25/18 23:59 11/19/18 14:10 Clonidine HCl (Catapres Tab) 0.1 mg Q4H PRN ORAL sbp>170 11/19/18 10:45 12/19/18 10:44 Dextrose (Dextrose 50%) 25 ml Q30M PRN IV Hypoglycemia 11/18/18 07:45 12/18/18 07:44 Dextrose (Dextrose 50%) 50 ml Q30M PRN IV Hypoglycemia 11/18/18 07:45 12/18/18 07:44 Dextrose/ Electrolytes 1,000 ml @ 75 mls/hr [id number] IV 11/19/18 16:00 12/19/18 15:59 Donepezil HCl (Aricept) 10 mg DAILY GT 11/18/18 09:00 12/18/18 08:59 11/19/18 09:10 Lidocaine HCl (Xylocaine 1% 30ml) 30 ml NOW PRN INJ Radiology Procedure 11/19/18 09:30 11/22/18 09:24 Mirtazapine (Remeron) 15 mg BEDTIME GT 11/18/18 21:00 12/18/18 20:59 11/18/18 21:21 Morphine Sulfate (Morphine Sulfate) 2 mg Q4H PRN IVP Severe Pain (Pain Scale 7-10) 11/18/18 07:45 11/25/18 07:44 Ondansetron HCl (Zofran) 4 mg Q6H PRN IVP Nausea & Vomiting 11/18/18 07:45 12/18/18 07:44 Polyethylene Glycol (Miralax) 17 gm DAILYPRN PRN ORAL Constipation 11/18/18 07:45 12/18/18 07:44 Polyethylene Glycol/ Electrolytes (Nulytely) 4,000 ml ONCE ORAL 11/19/18 14:00 11/19/18 23:59 11/19/18 14:09 Vancomycin HCl (Vanco rx to dose) 1 ea DAILY PRN MISC Per rx protocol 11/18/18 08:00 12/18/18 07:59 Vancomycin HCl 750 mg/Sodium Chloride 275 ml @ 183.333 mls/hr Q12H IVPB 11/18/18 21:00 11/23/18 20:59 11/19/18 09:10 Assessment/Plan Assessment/Plan: Hematology Consultation RFC: DVT eval and concurrent anemia Date patient seen: Nov 19, 2018 Chief Complaint: Fever REQ MD: Isaac Gonzalez HPI 73-year-old male with hx of dementia, Gtube feeding, Parkinson disease, seizure , detention resident presented with chief complaint of altered mental status. Per EMS, detention noted that patient appeared to be a respiratory distress with increased work of breathing and decreased mentation. No fever chills but no cough or congestion. Unable to get any other history because of this patient condition. Patient was diagnosed to have bilateral pneumonia and sepsis and admitted to [facility] for further treatment. Noted to have right leg dvt and heme was consulted. Allergies: No Known Allergies (Unverified , 11/18/18) Meds Amino Acids/Protein Hydrolys (Pro-Stat Liquid), 30 ML GT TWICE A DAY, (Reported) Aspirin* (Aspir 81*), 81 MG GT DAILY, (Reported) Carbidopa/Levodopa 25-100 Mg* (Sinemet 25-100 Mg Tablet*), 1 TAB ORAL THREE TIMES A DAY, (Reported) Docusate Sodium* (Colace*), 100 MG GT DAILY, (Reported) Donepezil Hcl* (Aricept*), 10 MG GT DAILY, (Reported) Enoxaparin* (Lovenox*), 60 MG SUBQ EVERY 12 HOURS, (Reported) Famotidine (Famotidine), 20 MG GT TWICE A DAY, (Reported) Lactulose (Lactulose*), 30 ML GT DAILY, (Reported) Metoprolol Tartrate* (Metoprolol Tartrate*), 12.5 MG GT EVERY 12 HOURS, ( Reported) Mirtazapine* (Remeron*), 15 MG GT BEDTIME, (Reported) Prednisone* (Prednisone*), 10 MG GT DAILY, (Reported) Sennosides (Senna), 17.2 MG GT QHS, (Reported) Thiamine Hcl* (Vitamin B-1*), 100 MG GT DAILY, (Reported) Valproate Sodium (Valproic Acid), 250 MG GT BID, (Reported) Vitamin D (Vitamin D3), 5,000 UNITS GT DAILY, (Reported) Scheduled PRN Bisacodyl (Dulcolax), 10 MG RC DAILY PRN for Constipation, (Reported) Levalbuterol Hcl (Xopenex*), 0.63 MG HHN Q4H PRN for Shortness of Breath, ( Reported) Magnesium Hydroxide* (Milk Of Magnesia*), 30 ML GT DAILY PRN for Constipation, ( Reported) Na Phos,M-B/Na Phos,Di-Ba* (Fleet Enema*), 133 ML RECTAL EVERY OTHER DAY PRN for Constipation, (Reported) [Mylanta], 30 ML GT Q6HR PRN for Per rx protocol, (Reported) Healthcare decision maker NONE Resuscitation status Full Code Advanced Directive on File No Past Medical/Surgical History: (1) Seizures (2) Parkinson disease (3) Alzheimer's dementia (4) COPD (chronic obstructive pulmonary disease) (5) Feeding by G-tube (6) Anemia, chronic disease ROS Review of Systems All Other Systems: negative except mentioned in HPI PE General Appearance: WD/WN Lines, tubes and drains: central line HEENT: normocephalic, atraumatic Neck: non-tender, normal alignment Breasts: no masses Cardiovascular/Chest: normal peripheral pulses, normal rate, regular rhythm Abdomen: normal bowel sounds, non tender ++ peg Genitourinary/Rectal: normal genital exam, heme negative stool Extremities: normal range of motion Skin Exam: normal pigmentation 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 Laboratory Tests Test 11/18/18 20:10 11/19/18 02:15 11/19/18 03:30 11/19/18 07:30 Activated Partial Thromboplast Time 32 SEC (23-33) 40 SEC (23-33) H Stool Occult Blood Positive (NEGATIVE) White Blood Count 11.6 K/UL (4.8-10.8) H 11.3 K/UL (4.8-10.8) H Red Blood Count 2.35 M/UL (4.70-6.10) L 2.22 M/UL (4.70-6.10) L Hemoglobin 7.6 G/DL (14.2-18.0) L 7.0 G/DL (14.2-18.0) L Hematocrit 22.4 % (42.0-52.0) L 20.5 % (42.0-52.0) L Mean Corpuscular Volume 95 FL (80-99) 93 FL (80-99) Mean Corpuscular Hemoglobin 32.1 PG (27.0-31.0) H 31.7 PG (27.0-31.0) H Mean Corpuscular Hemoglobin Concent 33.8 G/DL (32.0-36.0) 34.2 G/DL (32.0-36.0) Red Cell Distribution Width 15.4 % (11.6-14.8) H 14.6 % (11.6-14.8) Platelet Count 244 K/UL (150-450) 249 K/UL (150-450) Mean Platelet Volume 6.0 FL (6.5-10.1) L 5.6 FL (6.5-10.1) L Neutrophils (%) (Auto) % (45.0-75.0) % (45.0-75.0) Lymphocytes (%) (Auto) % (20.0-45.0) % (20.0-45.0) Monocytes (%) (Auto) % (1.0-10.0) % (1.0-10.0) Eosinophils (%) (Auto) % (0.0-3.0) % (0.0-3.0) Basophils (%) (Auto) % (0.0-2.0) % (0.0-2.0) Sodium Level 139 MMOL/L (136-145) Potassium Level 4.0 MMOL/L (3.5-5.1) Chloride Level 105 MMOL/L (98-107) Carbon Dioxide Level 29 MMOL/L (21-32) Anion Gap 5 mmol/L (5-15) Blood Urea Nitrogen 23 mg/dL (7-18) H Creatinine 0.4 MG/DL (0.55-1.30) L Estimat Glomerular Filtration Rate mL/min (>60) Glucose Level 101 MG/DL (74-106) Calcium Level 7.8 MG/DL (8.5-10.1) L Phosphorus Level 3.3 MG/DL (2.5-4.9) Total Bilirubin 0.6 MG/DL (0.2-1.0) Aspartate Amino Transf (AST/SGOT) 17 U/L (15-37) Alanine Aminotransferase (ALT/SGPT) 20 U/L (12-78) Alkaline Phosphatase 80 U/L (46-116) Pro-B-Type Natriuretic Peptide 356 pg/mL (0-125) H Total Protein 4.8 G/DL (6.4-8.2) L Albumin 1.1 G/DL (3.4-5.0) L Globulin 3.7 g/dL Albumin/Globulin Ratio 0.3 (1.0-2.7) L Differential Total Cells Counted 100 Neutrophils % (Manual) 92 % (45-75) H Lymphocytes % (Manual) 4 % (20-45) L Monocytes % (Manual) 4 % (1-10) Eosinophils % (Manual) 0 % (0-3) Basophils % (Manual) 0 % (0-2) Band Neutrophils 0 % (0-8) Platelet Estimate Adequate Platelet Morphology Normal Hypochromasia 3+ Anisocytosis 1+ Spherocytes 1+ Active Scripts Medications Dose Route/Sig Max Daily Dose Days Date Category Remeron* (Mirtazapine) 15 Mg Tablet 15 Mg GT BEDTIME 11/18/18 Reported Fleet Enema* (Na Phos,M-B/Na Phos,Di-Ba*) 133 Ml Enema 133 Ml RECTAL EVERY OTHER DAY PRN 11/18/18 Reported Dulcolax (Bisacodyl) 10 Mg Supp.rect 10 Mg RC DAILY PRN 11/18/18 Reported Milk Of Magnesia* (Magnesium Hydroxide) 400 Mg/5 Ml Oral.susp 30 Ml GT DAILY PRN 11/18/18 Reported Senna (Sennosides) 8.6 Mg Tablet 17.2 Mg GT QHS 11/18/18 Reported Colace* (Docusate Sodium) 100 Mg Capsule 100 Mg GT DAILY 11/18/18 Reported Valproic Acid (Valproate Sodium) 250 Mg/5 Ml Solution 250 Mg GT BID 11/18/18 Reported Pro-Stat Liquid (Amino Acids/Protein Hydrolys) 30 Ml Liquid.pkt 30 Ml GT TWICE A DAY 11/18/18 Reported Vitamin B-1* (Thiamine HCl) 100 Mg Tablet 100 Mg GT DAILY 11/18/18 Reported Metoprolol Tartrate* (Metoprolol Tartrate) 25 Mg Tablet 12.5 Mg GT EVERY 12 HOURS 11/18/18 Reported Lovenox* (Enoxaparin Sodium) 60 Mg/0.6 Ml Inj 60 Mg SUBQ EVERY 12 HOURS 11/18/18 Reported Xopenex* (Levalbuterol HCl) 0.63 Mg/3 Ml Vial.neb 0.63 Mg HHN Q4H PRN 30 11/18/18 Reported [Mylanta] 30 Ml GT Q6HR PRN 11/18/18 Reported Lactulose* (Lactulose) 20 Gm/30 Ml Solution 30 Ml GT DAILY 11/18/18 Reported Prednisone* (Prednisone) 10 Mg Tablet 10 Mg GT DAILY 11/18/18 Reported Vitamin D3 (Vitamin D) 400 Unit Tablet 5,000 Units GT DAILY 11/18/18 Reported Famotidine 20 Mg Tablet 20 Mg GT TWICE A DAY 11/18/18 Reported Aricept* (Donepezil HCl) 10 Mg Tablet 10 Mg GT DAILY 11/18/18 Reported Sinemet 25-100 Mg Tablet* (Carbidopa/Levodopa) 1 Each Tablet 1 Tab ORAL THREE TIMES A DAY 11/18/18 Reported Aspir 81* (Aspirin) 81 Mg Tablet.dr 81 Mg GT DAILY 11/18/18 Reported Height (Feet): 5 Height (Inches): 7.00 Weight (Pounds): 140 Medications Current Medications Medications (Trade) Dose Ordered Sig/Pauline Route PRN Reason Start Time Stop Time Status Last Admin Dose Admin Acetaminophen (Tylenol) 650 mg Q4H PRN ORAL FEVER 11/18/18 07:45 12/18/18 07:44 Albuterol/ Ipratropium (Albuterol/ Ipratropium) 3 ml Q4H PRN HHN Shortness of Breath 11/18/18 07:45 11/23/18 07:44 Carbidopa/Levodopa (Sinemet 25/100) 1 tab THREE TIMES A DAY ORAL 11/18/18 09:00 12/18/18 08:59 Cefepime HCl 2 gm/ Dextrose 110 ml @ 220 mls/hr Q24H IV 11/18/18 16:30 11/25/18 16:29 Dextrose (Dextrose 50%) 25 ml Q30M PRN IV Hypoglycemia 11/18/18 07:45 12/18/18 07:44 Dextrose (Dextrose 50%) 50 ml Q30M PRN IV Hypoglycemia 11/18/18 07:45 12/18/18 07:44 Donepezil HCl (Aricept) 10 mg DAILY GT 11/18/18 09:00 12/18/18 08:59 Heparin Sodium (Porcine) (Heparin 5000 units/ml) 5,000 units EVERY 12 HOURS SUBQ 11/18/18 09:00 12/18/18 08:59 11/18/18 09:20 Mirtazapine (Remeron) 15 mg BEDTIME GT 11/18/18 21:00 12/18/18 20:59 Morphine Sulfate (Morphine Sulfate) 2 mg Q4H PRN IVP Severe Pain (Pain Scale 7-10) 11/18/18 07:45 11/25/18 07:44 Ondansetron HCl (Zofran) 4 mg Q6H PRN IVP Nausea & Vomiting 11/18/18 07:45 12/18/18 07:44 Polyethylene Glycol (Miralax) 17 gm DAILYPRN PRN ORAL Constipation 11/18/18 07:45 12/18/18 07:44 Vancomycin HCl (Vanco rx to dose) 1 ea DAILY PRN MISC Per rx protocol 11/18/18 08:00 12/18/18 07:59 Vancomycin HCl 750 mg/Sodium Chloride 275 ml @ 183.333 mls/hr Q12H IVPB 11/18/18 21:00 11/23/18 20:59 Assessment and Recs: # Acute right leg DVT. Heparin drip DCed for rectal bleed. --> IVC filter pending at this time --> agree with need for this given coagulant contraindication --> after ivcf placed and if h/h stable, may consider anticaogulation if not bleeding # Anemia due to GI Bleed, other causes exist, multifactorial --> Anemia workup has been ordered, FERRITIN pending --> No evidence of hemolysis is noted, peripheral smear has been reviewed. --> Hgb goal >7. Transfuse prn. --> Epogen or iron at this time is not particularly indicated --> Medications have been reviewed --> low threshold for gi evaluation in case has occult +--> endoscopy and colo pending # LEukocytosis due to sepsis --> lainez culture --> IV abx per id # Sinus tach due to anemia and sepsis and beta danya withdrawal as was on Metoprolol 12.5 bid at [facility] --> per cards recs # Hypertension. Hold Metoprolol as BP is 90s. --> cloniditon per cards # S/P PEG The timing of this note does not necessarily reflect the time of the patient was seen. GREATLY APPRECIATE CONSULTATION. Avery Giang MD Nov 19, 2018 15:59
[2018-11-19 16:00] VITALS: BP 132/73
[2018-11-19 16:23] LABS: % IRON SATURATION 24 % (15-50); IRON 24 ug/dL (50-175); TOTAL IRON BINDING CAPACITY 101 ug/dL (250-450)
[2018-11-19 16:36] LABS: FERRITIN 831 NG/ML (8-388)
--- NOTE | 2018-11-19 16:45 | Consultation ---
DATE OF CONSULTATION: 11/19/2018 CHIEF COMPLAINT: Rectal bleeding. HISTORY OF PRESENT ILLNESS: Most of history per chart. The patient is a 73-year-old male with multiple medical problems including dementia, dysphagia, history of DVT, Parkinson disease, G-tube placement, seizure disorder admitted to the hospital with altered mental status. The patient was found to have acute right lower extremity DVT, also had evidence of rectal bleeding for which heparin was stopped. GI consult requested for further evaluation of GI bleeding. PAST MEDICAL HISTORY: 1. History of dementia. 2. Dysphagia with G-tube. 3. Parkinson disease. 4. Seizure disorder. 5. DVT. ALLERGIES: No known drug allergies. MEDICATIONS: Please see medication reconciliation list. SOCIAL HISTORY: Currently lives in a shelter. No history of tobacco, alcohol, or IV drug abuse. PAST SURGICAL HISTORY: Unknown. REVIEW OF SYSTEMS: Limited. PHYSICAL EXAMINATION: VITAL SIGNS: Temperature is 97.6, pulse 96, respirations 20, and blood pressure 98/43. HEENT: Normocephalic and atraumatic. Pale conjunctivae. NECK: Supple. No evidence of obvious lymphadenopathy. CARDIOVASCULAR: Regular rate and rhythm. Plus S1 and S2. LUNGS: Decreased breath sounds bilaterally based on supine examination. ABDOMEN: Soft and nontender. No rebound. No guarding. No peritoneal sign. EXTREMITIES: The patient had evidence of lower extremity edema. LABORATORY AND DIAGNOSTIC DATA: White count is 11.3, hemoglobin 7, hematocrit 20, platelet count 249. BUN is 23, creatinine 0.4. Iron saturation 14%. ASSESSMENT: The patient is a 73-year-old male with acute right-sided DVT. The patient also had evidence of rectal bleeding. Hemoglobin down to 7.5. The patient will need a colonoscopy to evaluate for source of GI bleeding and for possibility of the patient needing anticoagulation the patient needs to be cleared from GI standpoint from the rectal taking sources before he can be anticoagulated again. Discussed with Dr. Carrasquillo. The patient does not have any family so we are going to have two physicians . The patient has no one to sign for him but again in case he has acute gastrointestinal bleed with hemoglobin down to 7.5, he needs colonoscopy. Plan to prep him with GoLYTELY and schedule him for colonoscopy tomorrow I want to thank, Dr. Abdullahi Gonzalez for this kind referral. Deacon Indra Dallas DR: Ricky JOB#: [id number] CC: Abdullahi Gonzalez D.O.
[2018-11-19] MEDS: D5 1/2NS w/KCl 20mEq 1,000 ML IV SCH (17:09)
--- NOTE | 2018-11-19 18:00 | Surgery Progress Note ---
Surgery Progress Note Objective Last 24 Hour Vital Signs Date Time Temp Pulse Resp B/P (MAP) Pulse Ox O2 Delivery O2 Flow Rate FiO2 11/19/18 16:00 98.5 104 18 132/73 (92) 97 11/19/18 16:00 109 11/19/18 15:33 109 11/19/18 12:00 98.2 101 18 116/47 (70) 98 11/19/18 11:51 106 11/19/18 09:40 97 Venturi Mask 10.0 45 11/19/18 09:00 Venturi Mask 10.0 11/19/18 08:00 97.6 96 20 90/43 (59) 100 11/19/18 07:52 109 11/19/18 04:00 97.7 89 18 101/49 (66) 97 11/19/18 03:27 95 11/19/18 00:00 97.7 97 18 100/63 (75) 97 11/18/18 23:28 91 11/18/18 21:00 Venturi Mask 10.0 11/18/18 20:00 98.1 90 18 110/63 (79) 97 11/18/18 19:04 83 I&O Intake and Output 11/18/18 11/19/18 19:00 07:00 Intake Total 137.166 ml 184.406 ml Output Total 400 ml 300 ml Balance -262.834 ml -115.594 ml Intake IV Total 137.166 ml 184.406 ml Output Urine Total 400 ml 300 ml Dressing: saturated Wound: other Drains: other Cardiovascular: RSR Respiratory: decreased breath sounds Abdomen: soft, present bowel sounds, non-distended Extremities: no cyanosis Laboratory Tests Test 11/18/18 20:10 11/19/18 02:15 11/19/18 03:30 11/19/18 07:30 Activated Partial Thromboplast Time 32 SEC (23-33) 40 SEC (23-33) H Stool Occult Blood Positive (NEGATIVE) White Blood Count 11.6 K/UL (4.8-10.8) H 11.3 K/UL (4.8-10.8) H Red Blood Count 2.35 M/UL (4.70-6.10) L 2.22 M/UL (4.70-6.10) L Hemoglobin 7.6 G/DL (14.2-18.0) L 7.0 G/DL (14.2-18.0) L Hematocrit 22.4 % (42.0-52.0) L 20.5 % (42.0-52.0) L Mean Corpuscular Volume 95 FL (80-99) 93 FL (80-99) Mean Corpuscular Hemoglobin 32.1 PG (27.0-31.0) H 31.7 PG (27.0-31.0) H Mean Corpuscular Hemoglobin Concent 33.8 G/DL (32.0-36.0) 34.2 G/DL (32.0-36.0) Red Cell Distribution Width 15.4 % (11.6-14.8) H 14.6 % (11.6-14.8) Platelet Count 244 K/UL (150-450) 249 K/UL (150-450) Mean Platelet Volume 6.0 FL (6.5-10.1) L 5.6 FL (6.5-10.1) L Neutrophils (%) (Auto) % (45.0-75.0) % (45.0-75.0) Lymphocytes (%) (Auto) % (20.0-45.0) % (20.0-45.0) Monocytes (%) (Auto) % (1.0-10.0) % (1.0-10.0) Eosinophils (%) (Auto) % (0.0-3.0) % (0.0-3.0) Basophils (%) (Auto) % (0.0-2.0) % (0.0-2.0) Sodium Level 139 MMOL/L (136-145) Potassium Level 4.0 MMOL/L (3.5-5.1) Chloride Level 105 MMOL/L (98-107) Carbon Dioxide Level 29 MMOL/L (21-32) Anion Gap 5 mmol/L (5-15) Blood Urea Nitrogen 23 mg/dL (7-18) H Creatinine 0.4 MG/DL (0.55-1.30) L Estimat Glomerular Filtration Rate mL/min (>60) Glucose Level 101 MG/DL (74-106) Calcium Level 7.8 MG/DL (8.5-10.1) L Phosphorus Level 3.3 MG/DL (2.5-4.9) Total Bilirubin 0.6 MG/DL (0.2-1.0) Aspartate Amino Transf (AST/SGOT) 17 U/L (15-37) Alanine Aminotransferase (ALT/SGPT) 20 U/L (12-78) Alkaline Phosphatase 80 U/L (46-116) Pro-B-Type Natriuretic Peptide 356 pg/mL (0-125) H Total Protein 4.8 G/DL (6.4-8.2) L Albumin 1.1 G/DL (3.4-5.0) L Globulin 3.7 g/dL Albumin/Globulin Ratio 0.3 (1.0-2.7) L Differential Total Cells Counted 100 Neutrophils % (Manual) 92 % (45-75) H Lymphocytes % (Manual) 4 % (20-45) L Monocytes % (Manual) 4 % (1-10) Eosinophils % (Manual) 0 % (0-3) Basophils % (Manual) 0 % (0-2) Band Neutrophils 0 % (0-8) Platelet Estimate Adequate Platelet Morphology Normal Hypochromasia 3+ Anisocytosis 1+ Spherocytes 1+ Iron Level 24 ug/dL (50-175) L Total Iron Binding Capacity 101 ug/dL (250-450) L Percent Iron Saturation 24 % (15-50) Unsaturated Iron Binding 77 ug/dL (112-346) L Ferritin 831 NG/ML (8-388) H Plan Problems: (1) Decubitus skin ulcer Assessment & Plan: Pt presented on admission with multiple pressure injuries. Violaceous macular rash noted to L shoulder ,Upper L side of back and lateral L chest. L upper ext edematous with scattered petechiae. Category 2 skin tear with 10% flap loss noted to L brachial. Small amt sanguineous exudate noted. Unstageable pressure injury Sacrum . Base of wound noted to have 100% mixed slough.necrosis .Edges semi-detached and erythematous. Surrounding non- blanchable erythema without elevation in skin temp ,or induration. (L)9.5cm x (W )6.5cm. NO odor or exudate noted. Full thickness pressure injury lumbar spine in close proximity to sacral pressure injury.Base of wound pink with scattered biofilm. (L)2cm x (W)1.6cm. (+ ) maceration along borders. Periwound without erythema or induration. DTPI noted to medial L heel (L)3.2cm x (W)4.5cm. Base of fluctuant with delineated erythematous borders. Periwound fluctuant with non-blanchable erythema.Additionally, an area of stable dry eschar noted to posterior L heel(L) 0.6cm x (W)0.8cm DTPI Noted to lateral R heel. Maroon discoloration that is fluctuant within base of wound.(L)2.5cm x (W)1cm. DTPI noted to medial R heel. Base of wound fluctuant and is maroon in colour (L) 1.5cm x (W)1cm. Maroon discoloration without fluctuance or induration noted to lateral R tibia , superior but in close proximity to lateral Malleolus.(L)1.4cm x (W)0.5cm. Tx.Plan: Cleanse skin tear L brachial. (Maintain Versatel Contact layer)Apply Silvasorb Gel. Cover with Optifoam drsg. Change every 7 days and prn. Cleanse Sacral wound with Saline. Apply Therahoney. Apply Moisture Barrier Paste periwound. Cover with Optifoam drsg. Change every 3 days and prn. Cleanse wound Lumbar spine with saline. Apply Therahoney. Apply Cavilon Skin Barrier periwound. Cover with Optifoam drsg. Change every 3 days and prn. Apply Cavilon Skin Barrier to Lateral R tibia, R heel and L heel. Cover each site with Optifoam drsg. Change every 7 days and prn. APM/FERNANDEZ mattress overlay. Reposition at least every 2hours or as tolerated. Off-load heels with pillow. (2) Acute DVT (deep venous thrombosis) (3) HCAP (healthcare-associated pneumonia) (4) UTI (urinary tract infection) (5) Anemia, chronic disease (6) Sepsis Assessment & Plan: leukocytosis on IV Abx trend labs cont abx appreciate ID input (7) Feeding by G-tube Assessment & Plan: DAILY ESTIMATED NEEDS: Needs based on Sepsis, wound 60.5kg 25-35 kcals/kg 5655-3438 total kcals 1.25-2 g protein/kg 76-121 g total protein 25-30 mL/kg 8422-4993 total fluid mLs NUTRITION DIAGNOSIS: 1) Increased kcal and pro needs r/t wound healing as evidenced by pt w/ sacral unstageable wound and L heel DTPI. 2) Swallowing difficulty r/t dysphagia as evidenced by pt w/ Parkinson's dz, GT dependent. ENTERAL NUTRITION RECOMMENDATIONS: Glucerna 1.2 @60ml/hr x24 hrs to provide 1440ml, 1728 kcal, 86g pro, 1159ml free H2O - As medically able, rec to start Glucerna 1.2 @20ml/hr, advance as tolerated 10ml q4-6 hrs to goal. - Flush per MD/ HOB over 30 degrees ADDITIONAL RECOMMENDATIONS: 1) Per SNF: 5'6" ht, 133 lbs wt 2) ENGRAVER RUBBER eval if oral grat is appropriate 3) Wound care: Add YOLI BID via GT + VIT C 250mg BID 4) Hypoglycemics prn/ niss (8) COPD (chronic obstructive pulmonary disease) (9) Alzheimer's dementia (10) Parkinson disease (11) Seizures Andrew Eugene Nov 19, 2018 17:59
--- NOTE | 2018-11-19 18:08 | Infectious Diseases Prog Note ---
Assessment/Plan Assessment/Plan Abx: IV Vancomycin 11/18- Cefepime 11/18- Levaquin x 1 11/18 Assessment: Sepsis Pneumonia -CXR: Patchy bilateral infiltrates versus mixed interstitial alveolar edema noted. Afebrile Leukocytosis; improving Gram positive bacteremia- real vs contaminant -11/18 Bcx 3/4 GPC clusters Probable UTI -u/a wbc 10-15, nit neg, leuk +2; ucx GNR Acute respiratory failure Sacral decubitus ulcer, necrotic, surrounding cellulitis dementia HTN CKD COPD dysphagia s/p Gtube feeding Parkinson disease seizure disorder multiple decubiti wounds snf resident Plan: -Continue empiric IV Vancomycin and Cefepime #2 for PNA, bacteremia and probable UTI pending cultures -f/u cx -Monitor CBC/CMP, temperatures -f/u sp cx, legionella ag urine -GT care -aspiration precautions -wound care per surgical team -Bcx x2 Thank you for this consultation. Will continue to follow along with you. Discussed with RN. Subjective Allergies: Coded Allergies: No Known Allergies (Unverified , 11/18/18) Objective Vital Signs Last 24 Hour Vital Signs Date Time Temp Pulse Resp B/P (MAP) Pulse Ox O2 Delivery O2 Flow Rate FiO2 11/19/18 16:00 98.5 104 18 132/73 (92) 97 11/19/18 16:00 109 11/19/18 15:33 109 11/19/18 12:00 98.2 101 18 116/47 (70) 98 11/19/18 11:51 106 11/19/18 09:40 97 Venturi Mask 10.0 45 11/19/18 09:00 Venturi Mask 10.0 11/19/18 08:00 97.6 96 20 90/43 (59) 100 11/19/18 07:52 109 11/19/18 04:00 97.7 89 18 101/49 (66) 97 11/19/18 03:27 95 11/19/18 00:00 97.7 97 18 100/63 (75) 97 11/18/18 23:28 91 11/18/18 21:00 Venturi Mask 10.0 11/18/18 20:00 98.1 90 18 110/63 (79) 97 11/18/18 19:04 83 Height (Feet): 5 Height (Inches): 7.00 Weight (Pounds): 161 Objective General Appearance: WD/WN, no apparent distress Lines, tubes and drains: central line HEENT: normocephalic, atraumatic Neck: non-tender, normal alignment Cardiovascular/Chest: normal peripheral pulses, normal rate, regular rhythm Abdomen: normal bowel sounds, non tender Extremities: normal range of motion Skin Exam: normal pigmentation Neurologic: professor of environmental 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-XII grossly normal Microbiology Date/Time Source Procedure Growth Status 11/18/18 03:45 Blood Blood Culture - Preliminary Resulted 11/18/18 03:30 Blood Blood Culture - Preliminary Resulted 11/18/18 04:00 Urine,Clean Catch Urine Culture - Preliminary Gram Negative Bacillus 1 Resulted Laboratory Tests Test 11/18/18 20:10 11/19/18 02:15 11/19/18 03:30 11/19/18 07:30 Activated Partial Thromboplast Time 32 SEC (23-33) 40 SEC (23-33) H Stool Occult Blood Positive (NEGATIVE) White Blood Count 11.6 K/UL (4.8-10.8) H 11.3 K/UL (4.8-10.8) H Red Blood Count 2.35 M/UL (4.70-6.10) L 2.22 M/UL (4.70-6.10) L Hemoglobin 7.6 G/DL (14.2-18.0) L 7.0 G/DL (14.2-18.0) L Hematocrit 22.4 % (42.0-52.0) L 20.5 % (42.0-52.0) L Mean Corpuscular Volume 95 FL (80-99) 93 FL (80-99) Mean Corpuscular Hemoglobin 32.1 PG (27.0-31.0) H 31.7 PG (27.0-31.0) H Mean Corpuscular Hemoglobin Concent 33.8 G/DL (32.0-36.0) 34.2 G/DL (32.0-36.0) Red Cell Distribution Width 15.4 % (11.6-14.8) H 14.6 % (11.6-14.8) Platelet Count 244 K/UL (150-450) 249 K/UL (150-450) Mean Platelet Volume 6.0 FL (6.5-10.1) L 5.6 FL (6.5-10.1) L Neutrophils (%) (Auto) % (45.0-75.0) % (45.0-75.0) Lymphocytes (%) (Auto) % (20.0-45.0) % (20.0-45.0) Monocytes (%) (Auto) % (1.0-10.0) % (1.0-10.0) Eosinophils (%) (Auto) % (0.0-3.0) % (0.0-3.0) Basophils (%) (Auto) % (0.0-2.0) % (0.0-2.0) Sodium Level 139 MMOL/L (136-145) Potassium Level 4.0 MMOL/L (3.5-5.1) Chloride Level 105 MMOL/L (98-107) Carbon Dioxide Level 29 MMOL/L (21-32) Anion Gap 5 mmol/L (5-15) Blood Urea Nitrogen 23 mg/dL (7-18) H Creatinine 0.4 MG/DL (0.55-1.30) L Estimat Glomerular Filtration Rate mL/min (>60) Glucose Level 101 MG/DL (74-106) Calcium Level 7.8 MG/DL (8.5-10.1) L Phosphorus Level 3.3 MG/DL (2.5-4.9) Total Bilirubin 0.6 MG/DL (0.2-1.0) Aspartate Amino Transf (AST/SGOT) 17 U/L (15-37) Alanine Aminotransferase (ALT/SGPT) 20 U/L (12-78) Alkaline Phosphatase 80 U/L (46-116) Pro-B-Type Natriuretic Peptide 356 pg/mL (0-125) H Total Protein 4.8 G/DL (6.4-8.2) L Albumin 1.1 G/DL (3.4-5.0) L Globulin 3.7 g/dL Albumin/Globulin Ratio 0.3 (1.0-2.7) L Differential Total Cells Counted 100 Neutrophils % (Manual) 92 % (45-75) H Lymphocytes % (Manual) 4 % (20-45) L Monocytes % (Manual) 4 % (1-10) Eosinophils % (Manual) 0 % (0-3) Basophils % (Manual) 0 % (0-2) Band Neutrophils 0 % (0-8) Platelet Estimate Adequate Platelet Morphology Normal Hypochromasia 3+ Anisocytosis 1+ Spherocytes 1+ Iron Level 24 ug/dL (50-175) L Total Iron Binding Capacity 101 ug/dL (250-450) L Percent Iron Saturation 24 % (15-50) Unsaturated Iron Binding 77 ug/dL (112-346) L Ferritin 831 NG/ML (8-388) H Current Medications Medications (Trade) Dose Ordered Sig/Pauline Route PRN Reason Start Time Stop Time Status Last Admin Dose Admin Acetaminophen (Tylenol) 650 mg Q4H PRN ORAL FEVER 11/18/18 07:45 12/18/18 07:44 Albuterol/ Ipratropium (Albuterol/ Ipratropium) 3 ml Q4H PRN HHN Shortness of Breath 11/18/18 07:45 11/23/18 07:44 Carbidopa/Levodopa (Sinemet 25/100) 1 tab THREE TIMES A DAY GT 11/18/18 18:30 12/18/18 18:29 11/19/18 17:59 Cefepime HCl 1 gm/ Dextrose 55 ml @ 110 mls/hr BID@1000,2200 IVPB 11/19/18 13:00 11/25/18 23:59 11/19/18 14:10 Clonidine HCl (Catapres Tab) 0.1 mg Q4H PRN ORAL sbp>170 11/19/18 10:45 12/19/18 10:44 Dextrose (Dextrose 50%) 25 ml Q30M PRN IV Hypoglycemia 11/18/18 07:45 12/18/18 07:44 Dextrose (Dextrose 50%) 50 ml Q30M PRN IV Hypoglycemia 11/18/18 07:45 12/18/18 07:44 Dextrose/ Electrolytes 1,000 ml @ 75 mls/hr [id number] IV 11/19/18 16:00 12/19/18 15:59 11/19/18 17:09 Donepezil HCl (Aricept) 10 mg DAILY GT 11/18/18 09:00 12/18/18 08:59 11/19/18 09:10 Lidocaine HCl (Xylocaine 1% 30ml) 30 ml NOW PRN INJ Radiology Procedure 11/19/18 09:30 11/22/18 09:24 Mirtazapine (Remeron) 15 mg BEDTIME GT 11/18/18 21:00 12/18/18 20:59 11/18/18 21:21 Morphine Sulfate (Morphine Sulfate) 2 mg Q4H PRN IVP Severe Pain (Pain Scale 7-10) 11/18/18 07:45 11/25/18 07:44 Ondansetron HCl (Zofran) 4 mg Q6H PRN IVP Nausea & Vomiting 11/18/18 07:45 12/18/18 07:44 Polyethylene Glycol (Miralax) 17 gm DAILYPRN PRN ORAL Constipation 11/18/18 07:45 12/18/18 07:44 Polyethylene Glycol/ Electrolytes (Nulytely) 4,000 ml ONCE ORAL 11/19/18 14:00 11/19/18 23:59 11/19/18 14:09 Vancomycin HCl (Vanco rx to dose) 1 ea DAILY PRN MISC Per rx protocol 11/18/18 08:00 12/18/18 07:59 Vancomycin HCl 750 mg/Sodium Chloride 275 ml @ 183.333 mls/hr Q12H IVPB 11/18/18 21:00 11/23/18 20:59 11/19/18 09:10 Neva Yee M.D. Nov 19, 2018 18:08
--- NOTE | 2018-11-19 18:35 | Cardiology Report ---
APPROVED REPORT EXAM: Two-dimensional and M-mode echocardiogram with Doppler and color Doppler. INDICATION S.O.B M-Mode DIMENSIONS IVSd1.2 (0.7-1.1cm)Left Atrium (MM)3.0 (1.6-4.0cm) LVDd3.1 (3.5-5.6cm)Aortic Root4.2 (2.0-3.7cm) PWd1.0 (0.7-1.1cm)Aortic Cusp Exc.2.4 (1.5-2.0cm) IVSs1.6 cm LVDs2.2 (2.5-4.0cm) PWs1.0 cm Technically difficult study due to restraints covering pt's chest . Normal left ventricular chamber size, borderline normal systolic function and wall motion to extent visualized. Left ventricular ejection fraction estimated to be 50-55%. Mild left ventricular hypertrophy by 2-D. No evidence of pericardial effusion. All other cardiac chamber sizes are within normal limits. Aortic valve calcification with normal cusp excursion . Mildly thickened mitral valve leaflets with normal excursion. Mild mitral annulus and aortic root calcification. Pulmonic valve not well visualized. Subcostal views not obtainable due to GI-tube . A color flow and spectral Doppler study was performed and revealed: No aortic insufficiency . Mitral diastolic velocities suggest reduced left ventricular relaxation c/w mild LV diastolic dysfunction (Grade I ) Trace mitral regurgitation. Mild tricuspid regurgitation. Tricuspid systolic velocities suggests peak right ventricular systolic pressure of 39mmHg,consistent with mild pulmonary HTN.
--- NOTE | 2018-11-19 19:02 | NUR ---
HAND-OFF: Report given to Kyler Perez RN. Pt. remain stable.
--- NOTE | 2018-11-19 19:03 | NUR ---
NURSE NOTES: Received patient from Flow RN. Patient is stable, in bed with no signs of distress. Patient is NPO on nasal canula at 3L. Bed is at its lowest position, call light in reach and X3 bed rails up.
[2018-11-19] MEDS ORDERED: ACETAMINOPHEN325 M1 GT (19:23)
[2018-11-19] MEDS ORDERED: ACETAMINOPHEN500 M3 GT (19:25)
[2018-11-19] MEDS ORDERED: ACETAMINOPHEN325 M1 ORAL (19:26)
[2018-11-19 20:00] VITALS: BP 145/75
[2018-11-19] MEDS: Vancomycin 1gm/D5W 275ml IVPB SCH ×2 (23:36)
[2018-11-20] VITALS (10 sets, daily range): BP systolic 102–158; BP diastolic 57–96
[2018-11-20] MEDS: D5 1/2NS w/KCl 20mEq 1,000 ML IV SCH ×2 (05:20→18:21)
[2018-11-20] MEDS ORDERED: LORazepam 1mg tab ORAL PRN (05:30)
--- NOTE | 2018-11-20 07:40 | NUR ---
HAND-OFF: Report given to Samy DUNN.
--- NOTE | 2018-11-20 07:41 | Pre-Procedure Note/Attestation ---
Pre-Procedure Note/Attestation Complete Prior to Procedure Planned Procedure: not applicable Procedure Narrative: colonoscopy Indications for Procedure Pre-Operative Diagnosis: rectal bleed Attestation I attest that I discussed the nature of the procedure; its benefits; risks and complications; and alternatives (and the risks and benefits of such alternatives ), prior to the procedure, with the patient (or the patient's legal scheduling representative). I attest that, if there was a reasonable possibility of needing a blood transfusion, the patient (or the patient's legal scheduling representative) was given the [facility] standardized written summary, pursuant to the Jayro Bjorn Blood Safety Act ([place] Health and Safety Code # 1645, as amended). I attest that I re-evaluated the patient just prior to the surgery and that there has been no change in the patient's H&P, except as documented below: Deacon Dallas MD Nov 20, 2018 07:41
--- NOTE | 2018-11-20 07:43 | GI Progress Note ---
Assessment/Plan Problems: (1) Seizures ICD Codes: R56.9 - Unspecified convulsions SNOMED: 44820925 (2) Parkinson disease ICD Codes: G20 - Parkinson's disease SNOMED: 16308831 (3) Alzheimer's dementia ICD Codes: G30.9 - Alzheimer's disease, unspecified; F02.80 - Dementia in other diseases classified elsewhere without behavioral disturbance SNOMED: 34288186 (4) COPD (chronic obstructive pulmonary disease) ICD Codes: J44.9 - Chronic obstructive pulmonary disease, unspecified SNOMED: 29891052 (5) Feeding by G-tube ICD Codes: Z93.1 - Gastrostomy status SNOMED: 879239830, 470157005, 790285943 (6) Anemia, chronic disease ICD Codes: D63.8 - Anemia in other chronic diseases classified elsewhere SNOMED: 155586038, 416694451 Assessment/Plan patient needs colonoscopy for rectal bleed no family member available for consent will proceed with MD consent Subjective Gastrointestinal/Abdominal: Reports: blood in stool Objective Last 24 Hour Vital Signs Date Time Temp Pulse Resp B/P (MAP) Pulse Ox O2 Delivery O2 Flow Rate FiO2 11/20/18 04:00 108 11/20/18 04:00 98.1 103 18 153/83 (106) 100 11/20/18 00:00 104 11/20/18 00:00 98.8 95 20 158/96 (116) 100 11/19/18 21:58 99 Nasal Cannula 2.0 28 11/19/18 21:00 Venturi Mask 10.0 11/19/18 20:00 98.5 88 19 145/75 (98) 98 11/19/18 19:58 112 11/19/18 16:00 98.5 104 18 132/73 (92) 97 11/19/18 16:00 109 11/19/18 15:33 109 11/19/18 12:00 98.2 101 18 116/47 (70) 98 11/19/18 11:51 106 11/19/18 09:40 97 Venturi Mask 10.0 45 11/19/18 09:00 Venturi Mask 10.0 11/19/18 08:00 97.6 96 20 90/43 (59) 100 11/19/18 07:52 109 Intake and Output 11/19/18 11/20/18 18:59 06:59 Intake Total 75 ml 1650.000 ml Output Total 600 ml 800 ml Balance -525 ml 850.000 ml Intake IV Total 75 ml 680.000 ml Other 970 ml Output Urine Total 600 ml 800 ml # Bowel Movements 2 1 Laboratory Tests Test 11/19/18 20:00 Vancomycin Level Trough 12.0 ug/mL (5.0-12.0) Height (Feet): 5 Height (Inches): 7.00 Weight (Pounds): 161 General Appearance: lethargic Cardiovascular: normal rate Respiratory/Chest: decreased breath sounds Abdominal Exam: normal bowel sounds, non tender, soft Extremities: non-tender Deacon Dallas MD Nov 20, 2018 07:43
--- NOTE | 2018-11-20 07:45 | NUR ---
NURSE NOTES: Report received from MONA Chávez. Observed patient in bed. Open eyes spontaneously but non-verbal. No s/s of pain at this time. IV site intact and patent. GT site intact and patent. NPO for procedure today. On 2L of oxygen via N/C with no distress noted. F/C intact and draining well. Bed in lowest position. Call light within reach. Will continue to monitor.
--- NOTE | 2018-11-20 08:00 | NUR ---
NURSE NOTES: Patient is off unit for procedure. On 2L of oxygen via N/C with no distress noted.
--- NOTE | 2018-11-20 08:13 | Pre-Procedure Note/Attestation ---
Pre-Procedure Note/Attestation Complete Prior to Procedure Planned Procedure: not applicable Procedure Narrative: colonoscopy Indications for Procedure Pre-Operative Diagnosis: rectal bleed Attestation I attest that I discussed the nature of the procedure; its benefits; risks and complications; and alternatives (and the risks and benefits of such alternatives ), prior to the procedure, with the patient (or the patient's legal pharmaceutical specialty representative). I attest that, if there was a reasonable possibility of needing a blood transfusion, the patient (or the patient's legal pharmaceutical specialty representative) was given the [facility] standardized written summary, pursuant to the Jayro Bjorn Blood Safety Act ([place] Health and Safety Code # 1645, as amended). I attest that I re-evaluated the patient just prior to the surgery and that there has been no change in the patient's H&P, except as documented below: Deacon Dallas MD Nov 20, 2018 08:13
[2018-11-20] MEDS ORDERED: NS 500ML IVPB ONE (08:28)
[2018-11-20] MEDS ORDERED: Propofol 200mg/20ml IV ONE (08:30)
[2018-11-20] MEDS ORDERED: Lidocaine 1% MPF 10mg/ml 5ml ONE (08:30)
--- NOTE | 2018-11-20 08:32 | Hematology/Onc Progress Note ---
Assessment/Plan Assessment/Plan Assessment and Recs: # Acute right leg DVT. Heparin drip DCed for rectal bleed. --> IVC filter pending at this time --> agree with need for this given coagulant contraindication --> after ivcf placed and if h/h stable, may consider anticaogulation if not bleeding # Anemia due to GI Bleed, other causes exist, multifactorial --> Anemia workup has been reviewed, FERRITIN 831 --> No evidence of hemolysis is noted, peripheral smear has been reviewed. --> Hgb goal >7. Transfuse prn. --> Epogen or iron at this time is not particularly indicated --> Medications have been reviewed --> low threshold for gi evaluation in case has occult +--> endoscopy and colo pending --> hgb trend: --> Blood tx: 1 unit 11/19, # Leukocytosis due to sepsis. --> Monitor for improvement --> urine and blood cultures are both positive, mrsa positive --> IV abx per id # Sinus tach due to anemia and sepsis and beta danya withdrawal as was on Metoprolol 12.5 bid at [facility] --> per cards recs # Hypertension. Hold Metoprolol as BP is 90s. --> cloniditon per cards # S/P PEG The timing of this note does not necessarily reflect the time of the patient was seen. GREATLY APPRECIATE CONSULTATION. Subjective ROS Limited/Unobtainable: Yes Gastrointestinal/Abdominal: Reports: rectal bleeding Hematologic/Lymphatic: Reports: anemia Allergies: Coded Allergies: No Known Allergies (Unverified , 11/18/18) Subjective 11/20: Colonoscopy for today. S/P 1 unit prbc. Objective Objective Current Medications Medications (Trade) Dose Ordered Sig/Pauline Route PRN Reason Start Time Stop Time Status Last Admin Dose Admin Acetaminophen (Tylenol) 650 mg Q4H PRN ORAL FEVER 11/18/18 07:45 12/18/18 07:44 Albuterol/ Ipratropium (Albuterol/ Ipratropium) 3 ml Q4H PRN HHN Shortness of Breath 11/18/18 07:45 11/23/18 07:44 Carbidopa/Levodopa (Sinemet 25/100) 1 tab THREE TIMES A DAY GT 11/18/18 18:30 12/18/18 18:29 11/19/18 17:59 Cefepime HCl 1 gm/ Dextrose 55 ml @ 110 mls/hr BID@1000,2200 IVPB 11/19/18 13:00 11/25/18 23:59 11/19/18 21:10 Clonidine HCl (Catapres Tab) 0.1 mg Q4H PRN ORAL sbp>170 11/19/18 10:45 12/19/18 10:44 Dextrose (Dextrose 50%) 25 ml Q30M PRN IV Hypoglycemia 11/18/18 07:45 12/18/18 07:44 Dextrose (Dextrose 50%) 50 ml Q30M PRN IV Hypoglycemia 11/18/18 07:45 12/18/18 07:44 Dextrose/ Electrolytes 1,000 ml @ 75 mls/hr [id number] IV 11/19/18 16:00 12/19/18 15:59 11/20/18 05:20 Donepezil HCl (Aricept) 10 mg DAILY GT 11/18/18 09:00 12/18/18 08:59 11/19/18 09:10 Lidocaine HCl (Xylocaine 1% 30ml) 30 ml NOW PRN INJ Radiology Procedure 11/19/18 09:30 11/22/18 09:24 Lorazepam (Ativan) 1 mg Q6H PRN ORAL For Anxiety 11/20/18 05:30 11/27/18 05:29 Mirtazapine (Remeron) 15 mg BEDTIME GT 11/18/18 21:00 12/18/18 20:59 11/19/18 21:05 Morphine Sulfate (Morphine Sulfate) 2 mg Q4H PRN IVP Severe Pain (Pain Scale 7-10) 11/18/18 07:45 11/25/18 07:44 Ondansetron HCl (Zofran) 4 mg Q6H PRN IVP Nausea & Vomiting 11/18/18 07:45 12/18/18 07:44 Polyethylene Glycol (Miralax) 17 gm DAILYPRN PRN ORAL Constipation 11/18/18 07:45 12/18/18 07:44 Vancomycin HCl (Vanco rx to dose) 1 ea DAILY PRN MISC Per rx protocol 11/18/18 08:00 12/18/18 07:59 Vancomycin HCl 1 gm/Dextrose 275 ml @ 183.708 mls/hr Q12HR@1100,2300 IVPB 11/19/18 23:00 11/24/18 22:59 11/19/18 23:36 Last 24 Hour Vital Signs Date Time Temp Pulse Resp B/P (MAP) Pulse Ox O2 Delivery O2 Flow Rate FiO2 11/20/18 04:00 108 11/20/18 04:00 98.1 103 18 153/83 (106) 100 11/20/18 00:00 104 11/20/18 00:00 98.8 95 20 158/96 (116) 100 11/19/18 21:58 99 Nasal Cannula 2.0 28 11/19/18 21:00 Venturi Mask 10.0 11/19/18 20:00 98.5 88 19 145/75 (98) 98 11/19/18 19:58 112 11/19/18 16:00 98.5 104 18 132/73 (92) 97 11/19/18 16:00 109 11/19/18 15:33 109 11/19/18 12:00 98.2 101 18 116/47 (70) 98 11/19/18 11:51 106 11/19/18 09:40 97 Venturi Mask 10.0 45 11/19/18 09:00 Venturi Mask 10.0 11/19/18 08:00 97.6 96 20 90/43 (59) 100 11/19/18 07:52 109 11/19/18 04:00 97.7 89 18 101/49 (66) 97 11/19/18 03:27 95 11/19/18 00:00 97.7 97 18 100/63 (75) 97 11/18/18 23:28 91 11/18/18 21:00 Venturi Mask 10.0 11/18/18 20:00 98.1 90 18 110/63 (79) 97 11/18/18 19:04 83 11/18/18 17:46 97.7 99 20 111/71 (84) 96 11/18/18 16:00 85 11/18/18 16:00 97.7 90 20 91/54 (66) 100 11/18/18 12:00 98 11/18/18 12:00 98.2 69 20 122/71 (88) 100 11/18/18 09:00 Venturi Mask 15.0 Intake and Output 11/19/18 11/20/18 18:59 06:59 Intake Total 75 ml 1650.000 ml Output Total 600 ml 800 ml Balance -525 ml 850.000 ml Intake IV Total 75 ml 680.000 ml Other 970 ml Output Urine Total 600 ml 800 ml # Bowel Movements 2 1 Labs Test 11/18/18 03:45 11/18/18 04:00 11/18/18 05:10 11/18/18 13:15 White Blood Count 16.6 K/UL (4.8-10.8) Red Blood Count 3.01 M/UL (4.70-6.10) Hemoglobin 9.4 G/DL (14.2-18.0) Hematocrit 28.3 % (42.0-52.0) Mean Corpuscular Volume 94 FL (80-99) Mean Corpuscular Hemoglobin 31.3 PG (27.0-31.0) Mean Corpuscular Hemoglobin Concent 33.3 G/DL (32.0-36.0) Red Cell Distribution Width 15.0 % (11.6-14.8) Platelet Count 304 K/UL (150-450) Mean Platelet Volume 5.8 FL (6.5-10.1) Neutrophils (%) (Auto) 84.1 % (45.0-75.0) Lymphocytes (%) (Auto) 10.6 % (20.0-45.0) Monocytes (%) (Auto) 4.5 % (1.0-10.0) Eosinophils (%) (Auto) 0.4 % (0.0-3.0) Basophils (%) (Auto) 0.3 % (0.0-2.0) Differential Total Cells Counted 100 Neutrophils % (Manual) 87 % (45-75) Lymphocytes % (Manual) 9 % (20-45) Monocytes % (Manual) 4 % (1-10) Eosinophils % (Manual) 0 % (0-3) Basophils % (Manual) 0 % (0-2) Band Neutrophils 0 % (0-8) Platelet Estimate Adequate Platelet Morphology Normal Erythrocyte Sedimentation Rate 122 MM/HR (0-20) Reticulocyte Count 0.7 % (0.5-2.0) Prothrombin Time 10.7 SEC (9.30-11.50) Prothromb Time International Ratio 1.0 (0.9-1.1) Activated Partial Thromboplast Time 24 SEC (23-33) 24 SEC (23-33) Urine Color Yellow Urine Appearance Slightly cloudy Urine pH 6 (4.5-8.0) Urine Specific Macy 1.010 (1.005-1.035) Urine Protein 2+ (NEGATIVE) Urine Glucose (UA) Negative (NEGATIVE) Urine Ketones Negative (NEGATIVE) Urine Blood 3+ (NEGATIVE) Urine Nitrite Negative (NEGATIVE) Urine Bilirubin Negative (NEGATIVE) Urine Urobilinogen 8 MG/DL (0.0-1.0) Urine Leukocyte Esterase 2+ (NEGATIVE) Urine RBC 2-4 /HPF (0 - 0) Urine WBC 10-15 /HPF (0 - 0) Urine Squamous Epithelial Cells Few /LPF (NONE/OCC) Urine Bacteria Many /HPF (NONE) Sodium Level 144 MMOL/L (136-145) Potassium Level 4.3 MMOL/L (3.5-5.1) Chloride Level 105 MMOL/L (98-107) Carbon Dioxide Level 32 MMOL/L (21-32) Anion Gap 7 mmol/L (5-15) Blood Urea Nitrogen 26 mg/dL (7-18) Creatinine 0.6 MG/DL (0.55-1.30) Estimat Glomerular Filtration Rate mL/min (>60) Glucose Level 112 MG/DL (74-106) Lactic Acid Level 2.10 mmol/L (0.4-2.0) 1.80 mmol/L (0.66-2.22) Calcium Level 8.9 MG/DL (8.5-10.1) Iron Level 19 ug/dL (50-175) Total Iron Binding Capacity 136 ug/dL (250-450) Percent Iron Saturation 14 % (15-50) Unsaturated Iron Binding 117 ug/dL (112-346) Total Bilirubin 0.8 MG/DL (0.2-1.0) Aspartate Amino Transf (AST/SGOT) 18 U/L (15-37) Alanine Aminotransferase (ALT/SGPT) 24 U/L (12-78) Alkaline Phosphatase 102 U/L (46-116) Lactate Dehydrogenase 232 U/L (81-234) Total Creatine Kinase 27 U/L (26-308) Creatine Kinase MB 1.2 NG/ML (0.0-3.6) Creatine Kinase MB Relative Index 4.4 Troponin I 0.095 ng/mL (0.000-0.056) Total Protein 6.3 G/DL (6.4-8.2) Albumin 1.5 G/DL (3.4-5.0) Globulin 4.8 g/dL Albumin/Globulin Ratio 0.3 (1.0-2.7) Carcinoembryonic Antigen 2.4 ng/mL (0.0-4.7) Vitamin B12 Level 664 PG/ML (193-986) Folate 19.6 NG/ML (8.6-58.9) Test 11/18/18 20:10 11/19/18 02:15 11/19/18 03:30 11/19/18 07:30 Activated Partial Thromboplast Time 32 SEC (23-33) 40 SEC (23-33) Stool Occult Blood Positive (NEGATIVE) White Blood Count 11.6 K/UL (4.8-10.8) 11.3 K/UL (4.8-10.8) Red Blood Count 2.35 M/UL (4.70-6.10) 2.22 M/UL (4.70-6.10) Hemoglobin 7.6 G/DL (14.2-18.0) 7.0 G/DL (14.2-18.0) Hematocrit 22.4 % (42.0-52.0) 20.5 % (42.0-52.0) Mean Corpuscular Volume 95 FL (80-99) 93 FL (80-99) Mean Corpuscular Hemoglobin 32.1 PG (27.0-31.0) 31.7 PG (27.0-31.0) Mean Corpuscular Hemoglobin Concent 33.8 G/DL (32.0-36.0) 34.2 G/DL (32.0-36.0) Red Cell Distribution Width 15.4 % (11.6-14.8) 14.6 % (11.6-14.8) Platelet Count 244 K/UL (150-450) 249 K/UL (150-450) Mean Platelet Volume 6.0 FL (6.5-10.1) 5.6 FL (6.5-10.1) Neutrophils (%) (Auto) % (45.0-75.0) % (45.0-75.0) Lymphocytes (%) (Auto) % (20.0-45.0) % (20.0-45.0) Monocytes (%) (Auto) % (1.0-10.0) % (1.0-10.0) Eosinophils (%) (Auto) % (0.0-3.0) % (0.0-3.0) Basophils (%) (Auto) % (0.0-2.0) % (0.0-2.0) Sodium Level 139 MMOL/L (136-145) Potassium Level 4.0 MMOL/L (3.5-5.1) Chloride Level 105 MMOL/L (98-107) Carbon Dioxide Level 29 MMOL/L (21-32) Anion Gap 5 mmol/L (5-15) Blood Urea Nitrogen 23 mg/dL (7-18) Creatinine 0.4 MG/DL (0.55-1.30) Estimat Glomerular Filtration Rate mL/min (>60) Glucose Level 101 MG/DL (74-106) Calcium Level 7.8 MG/DL (8.5-10.1) Phosphorus Level 3.3 MG/DL (2.5-4.9) Total Bilirubin 0.6 MG/DL (0.2-1.0) Aspartate Amino Transf (AST/SGOT) 17 U/L (15-37) Alanine Aminotransferase (ALT/SGPT) 20 U/L (12-78) Alkaline Phosphatase 80 U/L (46-116) Pro-B-Type Natriuretic Peptide 356 pg/mL (0-125) Total Protein 4.8 G/DL (6.4-8.2) Albumin 1.1 G/DL (3.4-5.0) Globulin 3.7 g/dL Albumin/Globulin Ratio 0.3 (1.0-2.7) Differential Total Cells Counted 100 Neutrophils % (Manual) 92 % (45-75) Lymphocytes % (Manual) 4 % (20-45) Monocytes % (Manual) 4 % (1-10) Eosinophils % (Manual) 0 % (0-3) Basophils % (Manual) 0 % (0-2) Band Neutrophils 0 % (0-8) Platelet Estimate Adequate Platelet Morphology Normal Hypochromasia 3+ Anisocytosis 1+ Spherocytes 1+ Iron Level 24 ug/dL (50-175) Total Iron Binding Capacity 101 ug/dL (250-450) Percent Iron Saturation 24 % (15-50) Unsaturated Iron Binding 77 ug/dL (112-346) Ferritin 831 NG/ML (8-388) Test 11/19/18 20:00 Vancomycin Level Trough 12.0 ug/mL (5.0-12.0) Height (Feet): 5 Height (Inches): 7.00 Weight (Pounds): 161 Objective PE General Appearance: WD/WN Lines, tubes and drains: central line HEENT: normocephalic, atraumatic Neck: non-tender, normal alignment Breasts: no masses Cardiovascular/Chest: normal peripheral pulses, normal rate, regular rhythm Abdomen: normal bowel sounds, non tender ++ peg Genitourinary/Rectal: normal genital exam, heme negative stool Extremities: normal range of motion Skin Exam: normal pigmentation Neurologic: braille translator II-XII grossly normal Avery Giang MD Nov 20, 2018 08:32
[2018-11-20 08:38] LABS: HEMATOCRIT 22.7 % (42.0-52.0); HEMOGLOBIN 7.8 G/DL (14.2-18.0); MEAN CORPUSCULAR VOLUME 89 FL (80-99); PLATELET COUNT 272 K/UL (150-450); RED BLOOD COUNT 2.56 M/UL (4.70-6.10); RED CELL DISTRIBUTION WIDTH 18.5 % (11.6-14.8); WHITE BLOOD COUNT 12.2 K/UL (4.8-10.8)
[2018-11-20 08:58] LABS: ALANINE AMINOTRANSFERASE 26 U/L (12-78); ALBUMIN 1.1 G/DL (3.4-5.0); ALBUMIN/GLOBULIN RATIO 0.3 (1.0-2.7); ALKALINE PHOSPHATASE 82 U/L (46-116); ANION GAP 8 mmol/L (5-15); ASPARTATE AMINO TRANSFERASE 21 U/L (15-37); BILIRUBIN,TOTAL 0.9 MG/DL (0.2-1.0); BLOOD UREA NITROGEN 18 mg/dL (7-18); CALCIUM 7.8 MG/DL (8.5-10.1); CARBON DIOXIDE 26 MMOL/L (21-32); CHLORIDE 103 MMOL/L (98-107); CREATININE 0.4 MG/DL (0.55-1.30); PHOSPHORUS 2.8 MG/DL (2.5-4.9); POTASSIUM 3.6 MMOL/L (3.5-5.1); SODIUM 137 MMOL/L (136-145)
--- NOTE | 2018-11-20 09:55 | NUR ---
NURSE NOTES: Patient back to unit via shant accompanied with RN. No acute distress noted with 2L of oxygen via N/C. Stable condition.
--- NOTE | 2018-11-20 09:55 | NUR ---
NURSE NOTES: Report received from MONA Licea from GI lab.
[2018-11-20] MEDS: Cefepime 1gm in D5W 55ml IVPB SCH ×2 (09:58→21:07)
[2018-11-20] MEDS: Levodopa/Carbidopa 25/100 tab GT SCH ×3 (09:58→18:21)
[2018-11-20] MEDS: Donepezil 10mg tab GT SCH (09:58)
--- NOTE | 2018-11-20 10:01 | Anethesia Preoperative Eval ---
Anesthesia Pre-op PMH/ROS General Date of Evaluation: Nov 20, 2018 Time of Evaluation: 08:28 Anesthesiologist: anna ASA Score: ASA 4 Mallampati Score Class I : Soft palate, uvula, fauces, pillars visible Class II: Soft palate, uvula, fauces visible Class III: Soft palate, base of uvula visible Class IV: Only hard plate visible Mallampati Classification: Class II Surgeon: claudia Diagnosis: gi bleed Surgical Procedure: colon Anesthesia History: none Social History: smoking - nonsmoker Family History: no anesthesia problems Allergies: Coded Allergies: No Known Allergies (Unverified , 11/18/18) Medications: see eMAR Patient NPO?: Yes Past Medical History Cardiovascular: Reports: HTN, other Pulmonary: Reports: COPD Gastrointestinal/Genitourinary: Reports: ESRD Neurologic/Psychiatric: Reports: dementia Hematology/Immune: Reports: anemia Anesthesia Pre-op Phys. Exam Physician Exam Last Vital Signs Date Time Temp Pulse Resp B/P (MAP) Pulse Ox O2 Delivery O2 Flow Rate FiO2 11/20/18 09:40 97.6 114 21 124/80 97 Nasal Cannula 3 11/19/18 21:58 28 Constitutional: NAD Neurologic: CN 2-12 intact Cardiovascular: RRR Respiratory: CTA Gastrointestinal: S/NT/ND Airway Exam Mallampati Score: Class II MO: limited Neck: flexible TMD: 2fb ROM: limited Anesthesia Pre-op A/P Labs Hematology Test 11/20/18 08:10 White Blood Count 12.2 K/UL (4.8-10.8) H Red Blood Count 2.56 M/UL (4.70-6.10) L Hemoglobin 7.8 G/DL (14.2-18.0) L Hematocrit 22.7 % (42.0-52.0) L Mean Corpuscular Volume 89 FL (80-99) Mean Corpuscular Hemoglobin 30.6 PG (27.0-31.0) Mean Corpuscular Hemoglobin Concent 34.5 G/DL (32.0-36.0) Red Cell Distribution Width 18.5 % (11.6-14.8) H Platelet Count 272 K/UL (150-450) Mean Platelet Volume 5.4 FL (6.5-10.1) L Neutrophils (%) (Auto) % (45.0-75.0) Lymphocytes (%) (Auto) % (20.0-45.0) Monocytes (%) (Auto) % (1.0-10.0) Eosinophils (%) (Auto) % (0.0-3.0) Basophils (%) (Auto) % (0.0-2.0) Differential Total Cells Counted 100 Neutrophils % (Manual) 92 % (45-75) H Lymphocytes % (Manual) 4 % (20-45) L Monocytes % (Manual) 3 % (1-10) Eosinophils % (Manual) 1 % (0-3) Basophils % (Manual) 0 % (0-2) Band Neutrophils 0 % (0-8) Platelet Estimate Adequate Platelet Morphology Normal Coagulation Test 11/20/18 08:10 Prothrombin Time 10.7 SEC (9.30-11.50) Prothromb Time International Ratio 1.0 (0.9-1.1) Chemistry Test 11/20/18 08:10 Sodium Level 137 MMOL/L (136-145) Potassium Level 3.6 MMOL/L (3.5-5.1) Chloride Level 103 MMOL/L (98-107) Carbon Dioxide Level 26 MMOL/L (21-32) Anion Gap 8 mmol/L (5-15) Blood Urea Nitrogen 18 mg/dL (7-18) Creatinine 0.4 MG/DL (0.55-1.30) L Estimat Glomerular Filtration Rate mL/min (>60) Glucose Level 118 MG/DL (74-106) H Calcium Level 7.8 MG/DL (8.5-10.1) L Phosphorus Level 2.8 MG/DL (2.5-4.9) Magnesium Level 1.4 MG/DL (1.8-2.4) L Total Bilirubin 0.9 MG/DL (0.2-1.0) Aspartate Amino Transf (AST/SGOT) 21 U/L (15-37) Alanine Aminotransferase (ALT/SGPT) 26 U/L (12-78) Alkaline Phosphatase 82 U/L (46-116) Total Protein 4.7 G/DL (6.4-8.2) L Albumin 1.1 G/DL (3.4-5.0) L Globulin 3.6 g/dL Albumin/Globulin Ratio 0.3 (1.0-2.7) L Risk Assessment & Plan Assessment: [email or web address] Plan: mac Status Change Before Surgery: No Pre-Antibiotics Drug: Sada Jj MD Nov 20, 2018 10:01
--- NOTE | 2018-11-20 10:32 | Cardiac Electrophysiology PN ---
Assessment/Plan Assessment/Plan 1. Sinus tach due to anemia and sepsis and beta danya withdrawal as was on Metoprolol 12.5 bid at [facility] 2. Hypertension. Metoprolol was held as BP is 90s. On p.r.n. clonidine. Echo EF 55% 3. Acute right leg DVT. Heparin drip DCed for rectal bleed. IVC filter pending. 4. Possible pneumonia and sepsis.On Abx by Dr. Carrasquillo. 5. Parkinsonism. 6. COPD. 7. UTI. 8. Anemia and rectal bleed.S/P Colonoscopy and transfusion 9. Seizure disorder. 10. S/P PEG DW RN Subjective Subjective Had transfusion yesterday and just underwent colonoscopy by Dr Dallas . Objective Last 24 Hour Vital Signs Date Time Temp Pulse Resp B/P (MAP) Pulse Ox O2 Delivery O2 Flow Rate FiO2 11/20/18 09:40 97.6 114 21 124/80 97 Nasal Cannula 3 11/20/18 09:30 118 19 118/79 99 Nasal Cannula 3 11/20/18 09:25 108 20 130/70 99 Nasal Cannula 3 11/20/18 09:20 114 19 130/70 100 Simple Mask 6 11/20/18 09:15 97.7 107 18 142/77 100 Simple Mask 6 11/20/18 09:00 Nasal Cannula 2.0 11/20/18 08:00 120 11/20/18 04:00 108 11/20/18 04:00 98.1 103 18 153/83 (106) 100 11/20/18 00:00 104 11/20/18 00:00 98.8 95 20 158/96 (116) 100 11/19/18 21:58 99 Nasal Cannula 2.0 28 11/19/18 21:00 Venturi Mask 10.0 11/19/18 20:00 98.5 88 19 145/75 (98) 98 11/19/18 19:58 112 11/19/18 16:00 98.5 104 18 132/73 (92) 97 11/19/18 16:00 109 11/19/18 15:33 109 11/19/18 12:00 98.2 101 18 116/47 (70) 98 11/19/18 11:51 106 Intake and Output 11/19/18 11/20/18 18:59 06:59 Intake Total 75 ml 1650.000 ml Output Total 600 ml 800 ml Balance -525 ml 850.000 ml Intake IV Total 75 ml 680.000 ml Other 970 ml Output Urine Total 600 ml 800 ml # Bowel Movements 2 1 Laboratory Tests Test 11/19/18 20:00 11/20/18 08:10 Vancomycin Level Trough 12.0 ug/mL (5.0-12.0) White Blood Count 12.2 K/UL (4.8-10.8) H Red Blood Count 2.56 M/UL (4.70-6.10) L Hemoglobin 7.8 G/DL (14.2-18.0) L Hematocrit 22.7 % (42.0-52.0) L Mean Corpuscular Volume 89 FL (80-99) Mean Corpuscular Hemoglobin 30.6 PG (27.0-31.0) Mean Corpuscular Hemoglobin Concent 34.5 G/DL (32.0-36.0) Red Cell Distribution Width 18.5 % (11.6-14.8) H Platelet Count 272 K/UL (150-450) Mean Platelet Volume 5.4 FL (6.5-10.1) L Neutrophils (%) (Auto) % (45.0-75.0) Lymphocytes (%) (Auto) % (20.0-45.0) Monocytes (%) (Auto) % (1.0-10.0) Eosinophils (%) (Auto) % (0.0-3.0) Basophils (%) (Auto) % (0.0-2.0) Differential Total Cells Counted 100 Neutrophils % (Manual) 92 % (45-75) H Lymphocytes % (Manual) 4 % (20-45) L Monocytes % (Manual) 3 % (1-10) Eosinophils % (Manual) 1 % (0-3) Basophils % (Manual) 0 % (0-2) Band Neutrophils 0 % (0-8) Platelet Estimate Adequate Platelet Morphology Normal Prothrombin Time 10.7 SEC (9.30-11.50) Prothromb Time International Ratio 1.0 (0.9-1.1) Sodium Level 137 MMOL/L (136-145) Potassium Level 3.6 MMOL/L (3.5-5.1) Chloride Level 103 MMOL/L (98-107) Carbon Dioxide Level 26 MMOL/L (21-32) Anion Gap 8 mmol/L (5-15) Blood Urea Nitrogen 18 mg/dL (7-18) Creatinine 0.4 MG/DL (0.55-1.30) L Estimat Glomerular Filtration Rate mL/min (>60) Glucose Level 118 MG/DL (74-106) H Calcium Level 7.8 MG/DL (8.5-10.1) L Phosphorus Level 2.8 MG/DL (2.5-4.9) Magnesium Level 1.4 MG/DL (1.8-2.4) L Total Bilirubin 0.9 MG/DL (0.2-1.0) Aspartate Amino Transf (AST/SGOT) 21 U/L (15-37) Alanine Aminotransferase (ALT/SGPT) 26 U/L (12-78) Alkaline Phosphatase 82 U/L (46-116) Total Protein 4.7 G/DL (6.4-8.2) L Albumin 1.1 G/DL (3.4-5.0) L Globulin 3.6 g/dL Albumin/Globulin Ratio 0.3 (1.0-2.7) L Microbiology Date/Time Source Procedure Growth Status 11/18/18 03:45 Blood Blood Culture - Preliminary Staphylococcus Aureus Resulted 11/18/18 03:30 Blood Blood Culture - Preliminary Staphylococcus Species Resulted 11/18/18 03:45 Nasal Nares MRSA Culture - Final Staphylococcus Aureus - Mrsa Complete 11/18/18 04:00 Urine,Clean Catch Urine Culture - Preliminary A.baumanii Complx - Mdr Resulted 11/18/18 03:45 Rectum VRE Culture - Final NO VANCOMYCIN RESISTANT ENTEROCOCCUS ... Complete Objective HEAD AND NECK: No JVD. LUNGS: Decreased breath sounds. CARDIOVASCULAR: Regular S1 and S2 with no gallop . ABDOMEN: Soft. G-tube intact. EXTREMITIES: Leg edema. Earl Washington MD Nov 20, 2018 10:32
[2018-11-20] MEDS: Vancomycin 1gm/D5W 275ml IVPB SCH ×4 (10:33→22:44)
--- NOTE | 2018-11-20 11:11 | Infectious Diseases Prog Note ---
Assessment/Plan Assessment/Plan Abx: IV Vancomycin 11/18- Cefepime 11/18- Levaquin x 1 11/18 Assessment: Sepsis Pneumonia -CXR: Patchy bilateral infiltrates versus mixed interstitial alveolar edema noted. -sp cx p Afebrile Leukocytosis; improving S/aureus bacteremia- ?from PNA- r/o MRSA, r/o endocarditis -11/18 Bcx 3/4 S. aureus; 11/19 BCx p -2d Echo:limited study (no vegetations) Probable UTI -u/a wbc 10-15, nit neg, leuk +2; ucx MDR ABC (S bactrim, gentamicin) Acute respiratory failure Sacral decubitus ulcer, necrotic, surrounding cellulitis dementia HTN CKD COPD dysphagia s/p Gtube feeding Parkinson disease seizure disorder multiple decubiti wounds care home resident Plan: -Continue empiric IV Vancomycin and Cefepime #3 for PNA, bacteremia -Add Bactrim for probable UTI -11/18 SP Levaquin x1 -f/u cx -Monitor CBC/CMP, temperatures -f/u sp cx, legionella ag urine -GT care -aspiration precautions -wound care per surgical team -f/u repeat Bcx x2 -Recommend FLORINA Thank you for this consultation. Will continue to follow along with you. Discussed with RN and Dr Reis. Subjective Allergies: Coded Allergies: No Known Allergies (Unverified , 11/18/18) Subjective afebrile leukocytosis overall improved Repeat Bcx p sp cx p S. aureus bacteremia Objective Vital Signs Last 24 Hour Vital Signs Date Time Temp Pulse Resp B/P (MAP) Pulse Ox O2 Delivery O2 Flow Rate FiO2 11/20/18 09:40 97.6 114 21 124/80 97 Nasal Cannula 3 11/20/18 09:30 118 19 118/79 99 Nasal Cannula 3 11/20/18 09:25 108 20 130/70 99 Nasal Cannula 3 11/20/18 09:20 114 19 130/70 100 Simple Mask 6 11/20/18 09:15 97.7 107 18 142/77 100 Simple Mask 6 11/20/18 09:00 Nasal Cannula 2.0 11/20/18 08:00 120 11/20/18 04:00 108 11/20/18 04:00 98.1 103 18 153/83 (106) 100 11/20/18 00:00 104 11/20/18 00:00 98.8 95 20 158/96 (116) 100 11/19/18 21:58 99 Nasal Cannula 2.0 28 11/19/18 21:00 Venturi Mask 10.0 11/19/18 20:00 98.5 88 19 145/75 (98) 98 11/19/18 19:58 112 11/19/18 16:00 98.5 104 18 132/73 (92) 97 11/19/18 16:00 109 11/19/18 15:33 109 11/19/18 12:00 98.2 101 18 116/47 (70) 98 11/19/18 11:51 106 Height (Feet): 5 Height (Inches): 7.00 Weight (Pounds): 161 Objective General Appearance: WD/WN, no apparent distress Lines, tubes and drains: central line HEENT: normocephalic, atraumatic Neck: non-tender, normal alignment Cardiovascular/Chest: normal peripheral pulses, normal rate, regular rhythm Abdomen: normal bowel sounds, non tender Extremities: normal range of motion Skin Exam: normal pigmentation 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 Complete Laboratory Tests Test 11/19/18 20:00 11/20/18 08:10 Vancomycin Level Trough 12.0 ug/mL (5.0-12.0) White Blood Count 12.2 K/UL (4.8-10.8) H Red Blood Count 2.56 M/UL (4.70-6.10) L Hemoglobin 7.8 G/DL (14.2-18.0) L Hematocrit 22.7 % (42.0-52.0) L Mean Corpuscular Volume 89 FL (80-99) Mean Corpuscular Hemoglobin 30.6 PG (27.0-31.0) Mean Corpuscular Hemoglobin Concent 34.5 G/DL (32.0-36.0) Red Cell Distribution Width 18.5 % (11.6-14.8) H Platelet Count 272 K/UL (150-450) Mean Platelet Volume 5.4 FL (6.5-10.1) L Neutrophils (%) (Auto) % (45.0-75.0) Lymphocytes (%) (Auto) % (20.0-45.0) Monocytes (%) (Auto) % (1.0-10.0) Eosinophils (%) (Auto) % (0.0-3.0) Basophils (%) (Auto) % (0.0-2.0) Differential Total Cells Counted 100 Neutrophils % (Manual) 92 % (45-75) H Lymphocytes % (Manual) 4 % (20-45) L Monocytes % (Manual) 3 % (1-10) Eosinophils % (Manual) 1 % (0-3) Basophils % (Manual) 0 % (0-2) Band Neutrophils 0 % (0-8) Platelet Estimate Adequate Platelet Morphology Normal Prothrombin Time 10.7 SEC (9.30-11.50) Prothromb Time International Ratio 1.0 (0.9-1.1) Sodium Level 137 MMOL/L (136-145) Potassium Level 3.6 MMOL/L (3.5-5.1) Chloride Level 103 MMOL/L (98-107) Carbon Dioxide Level 26 MMOL/L (21-32) Anion Gap 8 mmol/L (5-15) Blood Urea Nitrogen 18 mg/dL (7-18) Creatinine 0.4 MG/DL (0.55-1.30) L Estimat Glomerular Filtration Rate mL/min (>60) Glucose Level 118 MG/DL (74-106) H Calcium Level 7.8 MG/DL (8.5-10.1) L Phosphorus Level 2.8 MG/DL (2.5-4.9) Magnesium Level 1.4 MG/DL (1.8-2.4) L Total Bilirubin 0.9 MG/DL (0.2-1.0) Aspartate Amino Transf (AST/SGOT) 21 U/L (15-37) Alanine Aminotransferase (ALT/SGPT) 26 U/L (12-78) Alkaline Phosphatase 82 U/L (46-116) Total Protein 4.7 G/DL (6.4-8.2) L Albumin 1.1 G/DL (3.4-5.0) L Globulin 3.6 g/dL Albumin/Globulin Ratio 0.3 (1.0-2.7) L Current Medications Medications (Trade) Dose Ordered Sig/Pauline Route PRN Reason Start Time Stop Time Status Last Admin Dose Admin Acetaminophen (Tylenol) 650 mg Q4H PRN ORAL FEVER 11/18/18 07:45 12/18/18 07:44 Albuterol/ Ipratropium (Albuterol/ Ipratropium) 3 ml Q4H PRN HHN Shortness of Breath 11/18/18 07:45 11/23/18 07:44 Carbidopa/Levodopa (Sinemet /) 1 tab THREE TIMES A DAY GT 11/18/18 18:30 12/18/18 18:29 11/20/18 09:58 Cefepime HCl 1 gm/ Dextrose 55 ml @ 110 mls/hr BID@1000,2200 IVPB 11/19/18 13:00 11/25/18 23:59 11/20/18 09:58 Clonidine HCl (Catapres Tab) 0.1 mg Q4H PRN ORAL sbp>170 11/19/18 10:45 12/19/18 10:44 Dextrose (Dextrose 50%) 25 ml Q30M PRN IV Hypoglycemia 11/18/18 07:45 12/18/18 07:44 Dextrose (Dextrose 50%) 50 ml Q30M PRN IV Hypoglycemia 11/18/18 07:45 12/18/18 07:44 Dextrose/ Electrolytes 1,000 ml @ 75 mls/hr [id number] IV 11/19/18 16:00 12/19/18 15:59 11/20/18 05:20 Donepezil HCl (Aricept) 10 mg DAILY GT 11/18/18 09:00 12/18/18 08:59 11/20/18 09:58 Lidocaine HCl (Xylocaine 1% 30ml) 30 ml NOW PRN INJ Radiology Procedure 11/19/18 09:30 11/22/18 09:24 Lorazepam (Ativan) 1 mg Q6H PRN ORAL For Anxiety 11/20/18 05:30 11/27/18 05:29 Mirtazapine (Remeron) 15 mg BEDTIME GT 11/18/18 21:00 12/18/18 20:59 11/19/18 21:05 Morphine Sulfate (Morphine Sulfate) 2 mg Q4H PRN IVP Severe Pain (Pain Scale 7-10) 11/18/18 07:45 11/25/18 07:44 Ondansetron HCl (Zofran) 4 mg Q6H PRN IVP Nausea & Vomiting 11/18/18 07:45 12/18/18 07:44 Polyethylene Glycol (Miralax) 17 gm DAILYPRN PRN ORAL Constipation 11/18/18 07:45 12/18/18 07:44 Vancomycin HCl (Vanco rx to dose) 1 ea DAILY PRN MISC Per rx protocol 11/18/18 08:00 12/18/18 07:59 Vancomycin HCl 1 gm/Dextrose 275 ml @ 183.708 mls/hr Q12HR@1100,2300 IVPB 11/19/18 23:00 11/24/18 22:59 11/20/18 10:33 Neva Yee M.D. Nov 20, 2018 11:11
[2018-11-20] MEDS: Bactrim-DS 1 tab ORAL SCH ×2 (12:04→21:04)
--- NOTE | 2018-11-20 12:05 | Pulmonology Progress Note ---
Assessment/Plan Problems: (1) HCAP (healthcare-associated pneumonia) (2) Sepsis (3) Acute DVT (deep venous thrombosis) (4) Seizures (5) COPD (chronic obstructive pulmonary disease) (6) Anemia, chronic disease (7) Feeding by G-tube (8) Parkinson disease (9) Alzheimer's dementia Assessment/Plan heart rate B P controlled IVC filter scheduled for today colonoscopy continue abx check cultures check electrolytes iv fluids check h/h after transfusion Hem consult appreciated Subjective ROS Limited/Unobtainable: No Constitutional: Reports: no symptoms HEENT: Repors: no symptoms Respiratory: Reports: no symptoms Allergies: Coded Allergies: No Known Allergies (Unverified , 11/18/18) Objective Last 24 Hour Vital Signs Date Time Temp Pulse Resp B/P (MAP) Pulse Ox O2 Delivery O2 Flow Rate FiO2 11/20/18 11:30 100 Nasal Cannula 2.0 28 11/20/18 09:40 97.6 114 21 124/80 97 Nasal Cannula 3 11/20/18 09:30 118 19 118/79 99 Nasal Cannula 3 11/20/18 09:25 108 20 130/70 99 Nasal Cannula 3 11/20/18 09:20 114 19 130/70 100 Simple Mask 6 11/20/18 09:15 97.7 107 18 142/77 100 Simple Mask 6 11/20/18 09:00 Nasal Cannula 2.0 11/20/18 08:00 120 11/20/18 04:00 108 11/20/18 04:00 98.1 103 18 153/83 (106) 100 11/20/18 00:00 104 11/20/18 00:00 98.8 95 20 158/96 (116) 100 11/19/18 21:58 99 Nasal Cannula 2.0 28 11/19/18 21:00 Venturi Mask 10.0 11/19/18 20:00 98.5 88 19 145/75 (98) 98 11/19/18 19:58 112 11/19/18 16:00 98.5 104 18 132/73 (92) 97 11/19/18 16:00 109 11/19/18 15:33 109 Intake and Output 11/19/18 11/20/18 18:59 06:59 Intake Total 75 ml 1650.000 ml Output Total 600 ml 800 ml Balance -525 ml 850.000 ml Intake IV Total 75 ml 680.000 ml Other 970 ml Output Urine Total 600 ml 800 ml # Bowel Movements 2 1 General Appearance: WD/WN HEENT: normocephalic, atraumatic Respiratory/Chest: chest wall non-tender, lungs clear Cardiovascular: normal peripheral pulses, normal rate Abdomen: normal bowel sounds, soft, non tender Genitourinary: normal external genitalia Skin: no rash Microbiology Date/Time Source Procedure Growth Status 11/18/18 03:45 Blood Blood Culture - Preliminary Staphylococcus Aureus Resulted 11/18/18 03:30 Blood Blood Culture - Preliminary Staphylococcus Species Resulted 11/18/18 03:45 Nasal Nares MRSA Culture - Final Staphylococcus Aureus - Mrsa Complete 11/18/18 04:00 Urine,Clean Catch Urine Culture - Preliminary A.baumanii Complx - Mdr Resulted 11/18/18 03:45 Rectum VRE Culture - Final NO VANCOMYCIN RESISTANT ENTEROCOCCUS ... Complete Laboratory Tests 11/19/18 20:00: Vancomycin Level Trough 12.0 11/20/18 08:10: White Blood Count 12.2H, Red Blood Count 2.56L, Hemoglobin 7.8L, Hematocrit 22.7L, Mean Corpuscular Volume 89, Mean Corpuscular Hemoglobin 30.6, Mean Corpuscular Hemoglobin Concent 34.5, Red Cell Distribution Width 18.5H, Platelet Count 272, Mean Platelet Volume 5.4L, Neutrophils (%) (Auto) , Lymphocytes (%) (Auto) , Monocytes (%) (Auto) , Eosinophils (%) (Auto) , Basophils (%) (Auto) , Differential Total Cells Counted 100, Neutrophils % ( Manual) 92H, Lymphocytes % (Manual) 4L, Monocytes % (Manual) 3, Eosinophils % ( Manual) 1, Basophils % (Manual) 0, Band Neutrophils 0, Platelet Estimate Adequate, Platelet Morphology Normal, Prothrombin Time 10.7, Prothromb Time International Ratio 1.0, Sodium Level 137, Potassium Level 3.6, Chloride Level 103, Carbon Dioxide Level 26, Anion Gap 8, Blood Urea Nitrogen 18, Creatinine 0.4L, Estimat Glomerular Filtration Rate , Glucose Level 118H, Calcium Level 7.8L, Phosphorus Level 2.8, Magnesium Level 1.4L, Total Bilirubin 0.9, Aspartate Amino Transf (AST/SGOT) 21, Alanine Aminotransferase (ALT/SGPT) 26, Alkaline Phosphatase 82, Total Protein 4.7L, Albumin 1.1L, Globulin 3.6, Albumin /Globulin Ratio 0.3L Current Medications Medications (Trade) Dose Ordered Sig/Pauline Route PRN Reason Start Time Stop Time Status Last Admin Dose Admin Acetaminophen (Tylenol) 650 mg Q4H PRN ORAL FEVER 11/18/18 07:45 12/18/18 07:44 Albuterol/ Ipratropium (Albuterol/ Ipratropium) 3 ml Q4H PRN HHN Shortness of Breath 11/18/18 07:45 11/23/18 07:44 Carbidopa/Levodopa (Sinemet 25/100) 1 tab THREE TIMES A DAY GT 11/18/18 18:30 12/18/18 18:29 11/20/18 09:58 Cefepime HCl 1 gm/ Dextrose 55 ml @ 110 mls/hr BID@1000,2200 IVPB 11/19/18 13:00 11/25/18 23:59 11/20/18 09:58 Clonidine HCl (Catapres Tab) 0.1 mg Q4H PRN ORAL sbp>170 11/19/18 10:45 12/19/18 10:44 Dextrose (Dextrose 50%) 25 ml Q30M PRN IV Hypoglycemia 11/18/18 07:45 12/18/18 07:44 Dextrose (Dextrose 50%) 50 ml Q30M PRN IV Hypoglycemia 11/18/18 07:45 12/18/18 07:44 Dextrose/ Electrolytes 1,000 ml @ 75 mls/hr [id number] IV 11/19/18 16:00 12/19/18 15:59 11/20/18 05:20 Donepezil HCl (Aricept) 10 mg DAILY GT 11/18/18 09:00 12/18/18 08:59 11/20/18 09:58 Lidocaine HCl (Xylocaine 1% 30ml) 30 ml NOW PRN INJ Radiology Procedure 11/19/18 09:30 11/22/18 09:24 Lorazepam (Ativan) 1 mg Q6H PRN ORAL For Anxiety 11/20/18 05:30 11/27/18 05:29 Mirtazapine (Remeron) 15 mg BEDTIME GT 11/18/18 21:00 12/18/18 20:59 11/19/18 21:05 Morphine Sulfate (Morphine Sulfate) 2 mg Q4H PRN IVP Severe Pain (Pain Scale 7-10) 11/18/18 07:45 11/25/18 07:44 Ondansetron HCl (Zofran) 4 mg Q6H PRN IVP Nausea & Vomiting 11/18/18 07:45 12/18/18 07:44 Polyethylene Glycol (Miralax) 17 gm DAILYPRN PRN ORAL Constipation 11/18/18 07:45 12/18/18 07:44 Trimethoprim/ Sulfamethoxazole (Bactrim-DS) 1 tab Q12HR ORAL 11/20/18 11:37 11/27/18 11:36 Vancomycin HCl (Vanco rx to dose) 1 ea DAILY PRN MISC Per rx protocol 11/18/18 08:00 12/18/18 07:59 Vancomycin HCl 1 gm/Dextrose 275 ml @ 183.708 mls/hr Q12HR@1100,2300 IVPB 11/19/18 23:00 11/24/18 22:59 11/20/18 10:33 David Carrasquillo MD Nov 20, 2018 12:05
--- NOTE | 2018-11-20 12:07 | Immediate Post-Op Evaluation ---
Immediate Post-Op Evalulation Immediate Post-Op Evalulation Procedure: colonoscopy Date of Evaluation: Nov 20, 2018 Time of Evaluation: 09:27 IV Fluids: 100ml 0.9ns Blood Products: none Estimated Blood Loss: negligible Blood Pressure Systolic: 142 Blood Pressure Diastolic: 77 Pulse Rate: 107 Respiratory Rate: 18 O2 Sat by Pulse Oximetry: 100 Temperature (Fahrenheit): 97.7 Pain Score (1-10): 0 Nausea: No Vomiting: No Complications none Patient Status: awake, reacts, patent Hydration Status: adequate Drug: Sada Jj MD Nov 20, 2018 12:07
--- NOTE | 2018-11-20 12:08 | 48 Hour Post Anesthesia Eval ---
Post Anesthesia Evaluation Procedure: colonoscopy Date of Evaluation: Nov 20, 2018 Time of Evaluation: 09:29 Blood Pressure Systolic: 130 0: 70 Pulse Rate: 108 Respiratory Rate: 18 Temperature (Fahrenheit): 97.7 O2 Sat by Pulse Oximetry: 100 Airway: patent Nausea: No Vomiting: No Pain Intensity: 0 Hydration Status: adequate Cardiopulmonary Status: stable Mental Status/LOC: patient returned to baseline Post-Anesthesia Complications: none Follow-up care needed: N/A Sada Oliver MD Nov 20, 2018 12:08
[2018-11-20] MEDS ORDERED: Midazolam 2mg/2ml Inj IVP PRN (12:15)
[2018-11-20] MEDS ORDERED: Atropine Inj 1mg/10ml Syr IV PRN (12:15)
[2018-11-20] MEDS ORDERED: DiphenhydrAMINE 50mg/ml Inj IVP PRN (12:15)
[2018-11-20] MEDS ORDERED: fentaNYL 100 mcg/2 mL IV PRN (12:15)
--- NOTE | 2018-11-20 12:15 | Consultation ---
DATE OF CONSULTATION: 11/20/2018 CONSULTING PHYSICIAN: Laith Mason M.D. HISTORY OF PRESENT ILLNESS: This is a 73-year-old male patient with sepsis, pneumonia, and he also has altered mental status worsened by stress of his medical illness and that is the reason why his attending physician has requested daily psychiatric consultation. Because of his pneumonia, urinary tract infection, sepsis has caused him to have even further decline in cognition below his baseline, so daily psychiatric consultation was requested to try to help the patient to prevent any further decline in his cognition and to help reduce the mood lability and confusion, altered mental status. This patient came in from [facility]. He is very confused on interview, very poor historian, and he is unable to give me detailed recollection because he seems to have poor insight into his medical condition. MEDICAL PROBLEMS: He has DVT, anemia, COPD, Parkinson disease. ALLERGIES: No known drug allergies. PSYCHOTROPIC MEDICATIONS ON ADMISSION: The patient is currently on Remeron 15 mg per G-tube at bedtime and Aricept 10 mg per G-tube daily. SUBSTANCE ABUSE HISTORY: No known history of any drug and alcohol use. PAIN ASSESSMENT: A 3/10 pain. DEVELOPMENTAL PROBLEMS: Denies. FAMILY PSYCHIATRIC HISTORY: Unknown. SOCIAL HISTORY: The patient lives in [facility]. Financially supported by [employer] and Medicare. PSYCHIATRIC HISTORY: History of major depressive disorder, severe, recurrent with psychotic features, rule out dementia with psychosis. He has seen Psychiatry multiple times in the last several years. STRENGTHS: He is motivated to get better and he is healthy. WEAKNESSES: He is impulsive. Minimal support system. MENTAL STATUS EXAMINATION: This is a 73-year-old male. His appearance is disheveled. His attitude is irritable and agitated. Affect, flat. Intellect poor because he does not know current events, does not know the last four presidents. Mood, depressed and anxious. Motor activity, psychomotor agitation. Attention span is poor because he cannot do serial 7's or spell world backwards. Orientation x1, he is only oriented to person. Speech is minimal. Thought process, disorganized and illogical. Thought content, auditory hallucination, mostly paranoid delusions. Perception is poor because of paranoid delusions. Abstract reasoning is poor because he cannot do proverbs, only has concrete thinking. Insight is poor because he does not recognize his psych disorder or his medical condition. Judgment is poor because he cannot make clear medical decisions for himself. No signs of any suicidal or homicidal ideation. Short-term memory, 3/3 recall after 5-minute delay with good short-term memory. Long-term memory is poor because he cannot recall long-term events in his life such as the high school that he went to. DIAGNOSES: 1. Major depressive disorder, severe, recurrent with psychotic features, rule out dementia with psychosis. 2. MEDICAL: DVT, anemia, COPD, Alzheimer's, Parkinson. 3. Psychosocial stressors: Financial. Function impairment, moderate. PLAN: I am going to continue him on a medication regimen consisting of Aricept 10 mg per G-tube daily and then also Remeron 15 mg per G-tube at bedtime and Ativan 1 mg every 6 hours p.r.n. anxiety and agitation, and he will continue to be followed by Psychiatry throughout his hospital course. Chart reviewed and discussed with staff. Seen and assessed at bedside. I would like to thank, Dr. Abdullahi Gonzalez, for this interesting consultation. Laith Mason M.D. DR: MILY JOB#: [id number] CC:
--- NOTE | 2018-11-20 12:37 | Diagnostic Imaging Report ---
APPROVED REPORT CPT Code: 34521 Present Symptoms Comments: Swelling RIGHT LEG: Venous imaging reveals acute thrombus in the common femoral, superficial femoral and popliteal veins. Imaging also reveals patency of the calf veins. Greater saphenous vein also within normal limits. LEFT LEG: Venous imaging reveals recanalized chronic thrombus in the superficial femoral and popliteal veins. Large collateral vein noted anterior to the superficial femoral artery. The remainder of the deep venous system is within normal limits. There is no evidence of thrombus in the common femoral, or calf veins. The greater saphenous vein is also within normal limits. Doppler indicates normal spontaneous flow within these segments. MONA Evans was notified of abnormal results at 1030 hours.
--- NOTE | 2018-11-20 13:18 | Endoscopy Procedure Note ---
Endoscopy Procedure Note General Indication for Procedure: gib Procedures Performed: colonoscopy Operative Findings/Diagnosis: diverticulosis Specimen: none Pt Tolerated Procedure Well: Yes Estimated Blood Loss: none Anesthesia Anesthesiologist: anna Anesthesia: MAC Inserted Devices Implant(s) used?: No GI Core Measures 50 yrs or older w/o bx or poly: Not Applicable 10yrs. F/U recommended: Not Applicable Deacon Dallas MD Nov 20, 2018 13:18
[2018-11-20] MEDS ORDERED: Tubing IV Secondary IV ONE (13:35)
--- NOTE | 2018-11-20 14:15 | NUR ---
RD ASSESSMENT & RECOMMENDATIONS SEE CARE ACTIVITY FOR COMPLETE ASSESSMENT DAILY ESTIMATED NEEDS: Needs based on Wounds, sepsis 60.5kg 25-35 kcals/kg [id number] total kcals 1.25-2 g protein/kg 76-121 g total protein 25-30 mL/kg [id number] total fluid mLs NUTRITION DIAGNOSIS: 1) Increased kcal and pro needs r/t wound healing as evidenced by pt w/ wounds, including unstageable sacral, full thickness spinal wound, DTPI BL heels. 2) Swallowing difficulty r/t dysphagia as evidenced by pt w/ Parkinson's dz, GT dependent. CURRENT TF: Now ordered Jevity 1.2 @55ml ENTERAL NUTRITION RECOMMENDATIONS: Glucerna 1.2 @60ml/hr x24 hrs to provide 1440ml, 1728 kcal, 86g pro, 1159ml free H2O - As medically able, rec to start Glucerna 1.2 @20ml/hr, advance as tolerated 10ml q4-6 hrs to goal. - Flush per MD/ HOB over 30 degrees ADDITIONAL RECOMMENDATIONS: 1) Per SNF: 5'6" ht, 133 lbs wt 2) SLAT PICKLER eval if oral grat is appropriate 3) Wound care: Add YOLI BID via GT + VIT C 250mg BID 4) Hypoglycemics prn/ niss
--- NOTE | 2018-11-20 14:17 | NUR ---
PT Note PT eval completed. Patient is unable to follow instructions. Patient is at baseline level of function. No f/u PT treatments recommended at this time. Addendum: 11/20/18 at 1417 by KERRY FINN PT Amended: Links added.
--- NOTE | 2018-11-20 14:37 | Surgery Progress Note ---
Surgery Progress Note Subjective Additional Comments no acute events. exam stable. Objective Last 24 Hour Vital Signs Date Time Temp Pulse Resp B/P (MAP) Pulse Ox O2 Delivery O2 Flow Rate FiO2 11/20/18 12:08 108 18 100 11/20/18 12:07 107 18 100 11/20/18 12:00 99 11/20/18 12:00 97.7 98 23 133/57 (82) 100 11/20/18 11:30 100 Nasal Cannula 2.0 28 11/20/18 09:40 97.6 114 21 124/80 97 Nasal Cannula 3 11/20/18 09:30 118 19 118/79 99 Nasal Cannula 3 11/20/18 09:25 108 20 130/70 99 Nasal Cannula 3 11/20/18 09:20 114 19 130/70 100 Simple Mask 6 11/20/18 09:15 97.7 107 18 142/77 100 Simple Mask 6 11/20/18 09:00 Nasal Cannula 2.0 11/20/18 08:00 120 11/20/18 04:00 108 11/20/18 04:00 98.1 103 18 153/83 (106) 100 11/20/18 00:00 104 11/20/18 00:00 98.8 95 20 158/96 (116) 100 11/19/18 21:58 99 Nasal Cannula 2.0 28 11/19/18 21:00 Venturi Mask 10.0 11/19/18 20:00 98.5 88 19 145/75 (98) 98 11/19/18 19:58 112 11/19/18 16:00 98.5 104 18 132/73 (92) 97 11/19/18 16:00 109 11/19/18 15:33 109 I&O Intake and Output 11/19/18 11/20/18 19:00 07:00 Intake Total 75 ml 1650.000 ml Output Total 600 ml 800 ml Balance -525 ml 850.000 ml Intake IV Total 75 ml 680.000 ml Other 970 ml Output Urine Total 600 ml 800 ml # Bowel Movements 2 1 Dressing: saturated Wound: other Drains: other Cardiovascular: RSR Respiratory: decreased breath sounds Abdomen: soft, present bowel sounds, non-distended Extremities: no cyanosis Laboratory Tests Test 11/19/18 20:00 11/20/18 08:10 Vancomycin Level Trough 12.0 ug/mL (5.0-12.0) White Blood Count 12.2 K/UL (4.8-10.8) H Red Blood Count 2.56 M/UL (4.70-6.10) L Hemoglobin 7.8 G/DL (14.2-18.0) L Hematocrit 22.7 % (42.0-52.0) L Mean Corpuscular Volume 89 FL (80-99) Mean Corpuscular Hemoglobin 30.6 PG (27.0-31.0) Mean Corpuscular Hemoglobin Concent 34.5 G/DL (32.0-36.0) Red Cell Distribution Width 18.5 % (11.6-14.8) H Platelet Count 272 K/UL (150-450) Mean Platelet Volume 5.4 FL (6.5-10.1) L Neutrophils (%) (Auto) % (45.0-75.0) Lymphocytes (%) (Auto) % (20.0-45.0) Monocytes (%) (Auto) % (1.0-10.0) Eosinophils (%) (Auto) % (0.0-3.0) Basophils (%) (Auto) % (0.0-2.0) Differential Total Cells Counted 100 Neutrophils % (Manual) 92 % (45-75) H Lymphocytes % (Manual) 4 % (20-45) L Monocytes % (Manual) 3 % (1-10) Eosinophils % (Manual) 1 % (0-3) Basophils % (Manual) 0 % (0-2) Band Neutrophils 0 % (0-8) Platelet Estimate Adequate Platelet Morphology Normal Prothrombin Time 10.7 SEC (9.30-11.50) Prothromb Time International Ratio 1.0 (0.9-1.1) Sodium Level 137 MMOL/L (136-145) Potassium Level 3.6 MMOL/L (3.5-5.1) Chloride Level 103 MMOL/L (98-107) Carbon Dioxide Level 26 MMOL/L (21-32) Anion Gap 8 mmol/L (5-15) Blood Urea Nitrogen 18 mg/dL (7-18) Creatinine 0.4 MG/DL (0.55-1.30) L Estimat Glomerular Filtration Rate mL/min (>60) Glucose Level 118 MG/DL (74-106) H Calcium Level 7.8 MG/DL (8.5-10.1) L Phosphorus Level 2.8 MG/DL (2.5-4.9) Magnesium Level 1.4 MG/DL (1.8-2.4) L Total Bilirubin 0.9 MG/DL (0.2-1.0) Aspartate Amino Transf (AST/SGOT) 21 U/L (15-37) Alanine Aminotransferase (ALT/SGPT) 26 U/L (12-78) Alkaline Phosphatase 82 U/L (46-116) Total Protein 4.7 G/DL (6.4-8.2) L Albumin 1.1 G/DL (3.4-5.0) L Globulin 3.6 g/dL Albumin/Globulin Ratio 0.3 (1.0-2.7) L Plan Problems: (1) Decubitus skin ulcer Assessment & Plan: Pt presented on admission with multiple pressure injuries. Violaceous macular rash noted to L shoulder ,Upper L side of back and lateral L chest. L upper ext edematous with scattered petechiae. Category 2 skin tear with 10% flap loss noted to L brachial. Small amt sanguineous exudate noted. Unstageable pressure injury Sacrum . Base of wound noted to have 100% mixed slough.necrosis .Edges semi-detached and erythematous. Surrounding non- blanchable erythema without elevation in skin temp ,or induration. (L)9.5cm x (W )6.5cm. NO odor or exudate noted. Full thickness pressure injury lumbar spine in close proximity to sacral pressure injury.Base of wound pink with scattered biofilm. (L)2cm x (W)1.6cm. (+ ) maceration along borders. Periwound without erythema or induration. DTPI noted to medial L heel (L)3.2cm x (W)4.5cm. Base of fluctuant with delineated erythematous borders. Periwound fluctuant with non-blanchable erythema.Additionally, an area of stable dry eschar noted to posterior L heel(L) 0.6cm x (W)0.8cm DTPI Noted to lateral R heel. Maroon discoloration that is fluctuant within base of wound.(L)2.5cm x (W)1cm. DTPI noted to medial R heel. Base of wound fluctuant and is maroon in colour (L) 1.5cm x (W)1cm. Maroon discoloration without fluctuance or induration noted to lateral R tibia , superior but in close proximity to lateral Malleolus.(L)1.4cm x (W)0.5cm. Tx.Plan: Cleanse skin tear L brachial. (Maintain Versatel Contact layer)Apply Silvasorb Gel. Cover with Optifoam drsg. Change every 7 days and prn. Cleanse Sacral wound with Saline. Apply Therahoney. Apply Moisture Barrier Paste periwound. Cover with Optifoam drsg. Change every 3 days and prn. Cleanse wound Lumbar spine with saline. Apply Therahoney. Apply Cavilon Skin Barrier periwound. Cover with Optifoam drsg. Change every 3 days and prn. Apply Cavilon Skin Barrier to Lateral R tibia, R heel and L heel. Cover each site with Optifoam drsg. Change every 7 days and prn. APM/FERNANDEZ mattress overlay. Reposition at least every 2hours or as tolerated. Off-load heels with pillow. (2) Acute DVT (deep venous thrombosis) (3) HCAP (healthcare-associated pneumonia) (4) UTI (urinary tract infection) (5) Anemia, chronic disease (6) Sepsis Assessment & Plan: leukocytosis on IV Abx trend labs cont abx appreciate ID input (7) Feeding by G-tube Assessment & Plan: DAILY ESTIMATED NEEDS: Needs based on Sepsis, wound 60.5kg 25-35 kcals/kg 1117-4326 total kcals 1.25-2 g protein/kg 76-121 g total protein 25-30 mL/kg 5124-4983 total fluid mLs NUTRITION DIAGNOSIS: 1) Increased kcal and pro needs r/t wound healing as evidenced by pt w/ sacral unstageable wound and L heel DTPI. 2) Swallowing difficulty r/t dysphagia as evidenced by pt w/ Parkinson's dz, GT dependent. ENTERAL NUTRITION RECOMMENDATIONS: Glucerna 1.2 @60ml/hr x24 hrs to provide 1440ml, 1728 kcal, 86g pro, 1159ml free H2O - As medically able, rec to start Glucerna 1.2 @20ml/hr, advance as tolerated 10ml q4-6 hrs to goal. - Flush per MD/ HOB over 30 degrees ADDITIONAL RECOMMENDATIONS: 1) Per SNF: 5'6" ht, 133 lbs wt 2) CORPORATE MANAGER eval if oral grat is appropriate 3) Wound care: Add YOLI BID via GT + VIT C 250mg BID 4) Hypoglycemics prn/ niss (8) COPD (chronic obstructive pulmonary disease) (9) Alzheimer's dementia (10) Parkinson disease (11) Seizures Andrew Eugene Nov 20, 2018 14:37
--- NOTE | 2018-11-20 14:42 | General Progress Note ---
Assessment/Plan Problem List: (1) Acute DVT (deep venous thrombosis) ICD Codes: I82.409 - Acute embolism and thrombosis of unspecified deep veins of unspecified lower extremity SNOMED: 207454219438167 (2) UTI (urinary tract infection) ICD Codes: N39.0 - Urinary tract infection, site not specified SNOMED: 61823625, 401190048 Qualifiers: Qualified Codes: N30.00 - Acute cystitis without hematuria (3) Anemia, chronic disease ICD Codes: D63.8 - Anemia in other chronic diseases classified elsewhere SNOMED: 518678018, 228875750 (4) Parkinson disease ICD Codes: G20 - Parkinson's disease SNOMED: 48451473 (5) Alzheimer's dementia ICD Codes: G30.9 - Alzheimer's disease, unspecified; F02.80 - Dementia in other diseases classified elsewhere without behavioral disturbance SNOMED: 55102943 (6) COPD (chronic obstructive pulmonary disease) ICD Codes: J44.9 - Chronic obstructive pulmonary disease, unspecified SNOMED: 74544921 Status: stable, progressing Assessment/Plan: o2 pulm tx abx pt diet heme f/u cbc bmp am aru eval Subjective Constitutional: Reports: weakness Allergies: Coded Allergies: No Known Allergies (Unverified , 11/18/18) All Systems: reviewed and negative except above Subjective o2nc sleepy Objective Last 24 Hour Vital Signs Date Time Temp Pulse Resp B/P (MAP) Pulse Ox O2 Delivery O2 Flow Rate FiO2 11/20/18 12:08 108 18 100 11/20/18 12:07 107 18 100 11/20/18 12:00 99 11/20/18 12:00 97.7 98 23 133/57 (82) 100 11/20/18 11:30 100 Nasal Cannula 2.0 28 11/20/18 09:40 97.6 114 21 124/80 97 Nasal Cannula 3 11/20/18 09:30 118 19 118/79 99 Nasal Cannula 3 11/20/18 09:25 108 20 130/70 99 Nasal Cannula 3 11/20/18 09:20 114 19 130/70 100 Simple Mask 6 11/20/18 09:15 97.7 107 18 142/77 100 Simple Mask 6 11/20/18 09:00 Nasal Cannula 2.0 11/20/18 08:00 120 11/20/18 04:00 108 11/20/18 04:00 98.1 103 18 153/83 (106) 100 11/20/18 00:00 104 11/20/18 00:00 98.8 95 20 158/96 (116) 100 11/19/18 21:58 99 Nasal Cannula 2.0 28 11/19/18 21:00 Venturi Mask 10.0 11/19/18 20:00 98.5 88 19 145/75 (98) 98 11/19/18 19:58 112 11/19/18 16:00 98.5 104 18 132/73 (92) 97 11/19/18 16:00 109 11/19/18 15:33 109 Intake and Output 11/19/18 11/20/18 19:00 07:00 Intake Total 75 ml 1650.000 ml Output Total 600 ml 800 ml Balance -525 ml 850.000 ml Intake IV Total 75 ml 680.000 ml Other 970 ml Output Urine Total 600 ml 800 ml # Bowel Movements 2 1 Laboratory Tests 11/19/18 20:00: Vancomycin Level Trough 12.0 11/20/18 08:10: White Blood Count 12.2H, Red Blood Count 2.56L, Hemoglobin 7.8L, Hematocrit 22.7L, Mean Corpuscular Volume 89, Mean Corpuscular Hemoglobin 30.6, Mean Corpuscular Hemoglobin Concent 34.5, Red Cell Distribution Width 18.5H, Platelet Count 272, Mean Platelet Volume 5.4L, Neutrophils (%) (Auto) , Lymphocytes (%) (Auto) , Monocytes (%) (Auto) , Eosinophils (%) (Auto) , Basophils (%) (Auto) , Differential Total Cells Counted 100, Neutrophils % ( Manual) 92H, Lymphocytes % (Manual) 4L, Monocytes % (Manual) 3, Eosinophils % ( Manual) 1, Basophils % (Manual) 0, Band Neutrophils 0, Platelet Estimate Adequate, Platelet Morphology Normal, Prothrombin Time 10.7, Prothromb Time International Ratio 1.0, Sodium Level 137, Potassium Level 3.6, Chloride Level 103, Carbon Dioxide Level 26, Anion Gap 8, Blood Urea Nitrogen 18, Creatinine 0.4L, Estimat Glomerular Filtration Rate , Glucose Level 118H, Calcium Level 7.8L, Phosphorus Level 2.8, Magnesium Level 1.4L, Total Bilirubin 0.9, Aspartate Amino Transf (AST/SGOT) 21, Alanine Aminotransferase (ALT/SGPT) 26, Alkaline Phosphatase 82, Total Protein 4.7L, Albumin 1.1L, Globulin 3.6, Albumin /Globulin Ratio 0.3L Height (Feet): 5 Height (Inches): 7.00 Weight (Pounds): 161 General Appearance: lethargic EENT: normal ENT inspection Neck: normal alignment Cardiovascular: normal peripheral pulses, normal rate, regular rhythm Respiratory/Chest: chest wall non-tender, lungs clear, normal breath sounds Abdomen: normal bowel sounds, non tender, soft Extremities: normal inspection Edema: no edema noted Arm (L), no edema noted Arm (R), no edema noted Leg (L), no edema noted Leg (R), no edema noted Pedal (L), no edema noted Pedal (R), no edema noted Generalized Neurologic: motor weakness Skin: normal pigmentation, warm/dry Abdullahi Gonzalez DO Nov 20, 2018 14:42
--- NOTE | 2018-11-20 15:13 | NUR ---
NURSE NOTES: Called and left message to Dr. Carrasquillo regarding abnormal lab result. Awaiting for call back.
--- NOTE | 2018-11-20 17:00 | Procedure Note ---
DATE OF PROCEDURE: 11/20/2018 SURGEON: Deacon Dallas M.D. PROCEDURE: Colonoscopy. ANESTHESIA: Per Dr. Mazariegos. INSTRUMENT: Olympus adult flexible colonoscope. INDICATION: Rectal bleeding. REASON FOR PROCEDURE: The procedure, risks, benefits, and possible consequences, including hemorrhage, aspiration, perforation and infection, and alternative treatments, were explained to the patient/legal guardian by Dr. Deacon Dallas and the patient/legal guardian understood and accepted these risks. DESCRIPTION OF PROCEDURE: After informed consent was obtained and the patient was adequately sedated, first rectal exam was performed, which was normal. Then, the scope was advanced from the rectum into the cecum documented by appendiceal orifice, ileocecal valve, and right upper quadrant palpation. Quality of prep was fair. No evidence of any active bleeding at this time. The patient had some diverticulosis in the left colon most probably source of bleeding. Retroflexion of rectum showed evidence of internal hemorrhoids. The patient tolerated procedure very well without complication. SUMMARY OF FINDINGS: 1. Fair colonic prep. 2. Diverticulosis most probably the source of bleeding. 3. No evidence of any acute bleeding at this time. 4. Internal hemorrhoids. RECOMMENDATIONS: 1. Resume G-tube feeding. 2. Okay to anticoagulate from gastrointestinal standpoint at this time given there is no active bleeding. 3. Treat for hemorrhoids if become symptomatic. I want to thank Dr. Abdullahi Gonzalez for this kind referral. Deacon Dallas M.D. DR: Ricky JOB#: [id number] CC: Abdullahi Gonzalez D.O.
--- NOTE | 2018-11-20 19:32 | NUR ---
HAND-OFF: Report given to MONA Haley. Stable condition.
--- NOTE | 2018-11-20 19:33 | NUR ---
NURSE NOTES: Report received from MONA Kearney. Observed patient in bed. Open eyes spontaneously, non-verbal. No s/s of pain at this time per FLACC scale. IV site intact and patent. GT site intact and patent. On 2L of oxygen via N/C with no apparent distress noted. F/C intact and draining well. Bed in lowest position. Call light within reach. Fall precautions, aspiration precautions in place, HOB elevated. Will continue to monitor.
[2018-11-21] VITALS (9 sets, daily range): BP systolic 104–139; BP diastolic 65–84
--- NOTE | 2018-11-21 07:27 | NUR ---
HAND-OFF: Report given to MONA Regalado.
--- NOTE | 2018-11-21 07:31 | NUR ---
NURSE NOTES: Pt received from Jeanette RN awake and nonverbal, follows and tracks movement. No s/s of acute distress noted. Gtube feed off, d/t pending procedure today. Aspiration precautions implemented - HOB elevated, suction at bedside. Siderails padded for seizure precautions. Bradley catheter draining to clear and yellow urine, hanging at edge of bed, off the floor. Bed in lowest position, bed alarm on. Call light and belongings within reach. talent acquisition administrator on - ST (103).
[2018-11-21] MEDS: Donepezil 10mg tab GT SCH (08:00)
[2018-11-21] MEDS: Levodopa/Carbidopa 25/100 tab GT SCH ×3 (08:01→17:03)
[2018-11-21] MEDS: Bactrim-DS 1 tab ORAL SCH ×2 (08:01→21:49)
--- NOTE | 2018-11-21 08:09 | NUR ---
Social Work This SW followed up to obtain POA information. Patient is from [facility] and does not have any legal guest experience representative; patient was listed as his own decision maker. Bioethics to follow, as needed for end of life decision making. M.D to consent for emergency consents and procedures.
[2018-11-21] MEDS: D5 1/2NS w/KCl 20mEq 1,000 ML IV SCH (08:14)
--- NOTE | 2018-11-21 08:38 | General Progress Note ---
Assessment/Plan Problem List: (1) Acute DVT (deep venous thrombosis) ICD Codes: I82.409 - Acute embolism and thrombosis of unspecified deep veins of unspecified lower extremity SNOMED: 421133753371170 (2) UTI (urinary tract infection) ICD Codes: N39.0 - Urinary tract infection, site not specified SNOMED: 42092950, 543137403 Qualifiers: Qualified Codes: N30.00 - Acute cystitis without hematuria (3) Anemia, chronic disease ICD Codes: D63.8 - Anemia in other chronic diseases classified elsewhere SNOMED: 066411862, 444581867 (4) Parkinson disease ICD Codes: G20 - Parkinson's disease SNOMED: 84158126 (5) Alzheimer's dementia ICD Codes: G30.9 - Alzheimer's disease, unspecified; F02.80 - Dementia in other diseases classified elsewhere without behavioral disturbance SNOMED: 70343449 (6) COPD (chronic obstructive pulmonary disease) ICD Codes: J44.9 - Chronic obstructive pulmonary disease, unspecified SNOMED: 75512402 Status: stable, progressing Assessment/Plan: o2 pulm tx abx pt diet heme f/u cbc bmp am aru eval Subjective Constitutional: Reports: weakness Allergies: Coded Allergies: No Known Allergies (Unverified , 11/18/18) All Systems: reviewed and negative except above Subjective o2nc sleepy Objective Last 24 Hour Vital Signs Date Time Temp Pulse Resp B/P (MAP) Pulse Ox O2 Delivery O2 Flow Rate FiO2 11/21/18 08:29 100 Nasal Cannula 2.0 28 11/21/18 08:29 101 20 100 Nasal Cannula 2.0 28 11/21/18 04:00 97.6 95 18 132/84 (100) 97 11/21/18 04:00 101 11/21/18 00:00 98.4 103 18 108/68 (81) 98 11/21/18 00:00 107 11/20/18 21:00 Nasal Cannula 2.0 11/20/18 20:00 98.4 92 16 103/63 (76) 100 11/20/18 20:00 106 11/20/18 19:18 102 20 98 Nasal Cannula 2.0 28 11/20/18 19:18 98 Nasal Cannula 2.0 28 11/20/18 16:00 97.9 100 23 102/64 (77) 98 11/20/18 16:00 105 11/20/18 12:08 108 18 100 11/20/18 12:07 107 18 100 11/20/18 12:00 99 11/20/18 12:00 97.7 98 23 133/57 (82) 100 11/20/18 11:30 100 Nasal Cannula 2.0 28 11/20/18 09:40 97.6 114 21 124/80 97 Nasal Cannula 3 11/20/18 09:30 118 19 118/79 99 Nasal Cannula 3 11/20/18 09:25 108 20 130/70 99 Nasal Cannula 3 11/20/18 09:20 114 19 130/70 100 Simple Mask 6 11/20/18 09:15 97.7 107 18 142/77 100 Simple Mask 6 11/20/18 09:00 Nasal Cannula 2.0 Intake and Output 11/20/18 11/21/18 19:00 07:00 Intake Total 1615.000 ml Output Total 900 ml 1100 ml Balance 715.000 ml -1100 ml Intake Free Water 200 ml IV Total 1255.000 ml Tube Feeding 160 ml Output Urine Total 900 ml 1100 ml Estimated Blood Loss 0 ml # Bowel Movements 3 1 Laboratory Tests 11/21/18 07:50: White Blood Count [Pending], Red Blood Count [Pending], Hemoglobin [Pending], Hematocrit [Pending], Mean Corpuscular Volume [Pending], Mean Corpuscular Hemoglobin [Pending], Mean Corpuscular Hemoglobin Concent [Pending], Red Cell Distribution Width [Pending], Platelet Count [Pending], Mean Platelet Volume [ Pending], Neutrophils (%) (Auto) [Pending], Lymphocytes (%) (Auto) [Pending], Monocytes (%) (Auto) [Pending], Eosinophils (%) (Auto) [Pending], Basophils (%) (Auto) [Pending], Erythrocyte Sedimentation Rate [Pending], Reticulocyte Count [ Pending], Sodium Level [Pending], Potassium Level [Pending], Chloride Level [ Pending], Carbon Dioxide Level [Pending], Blood Urea Nitrogen [Pending], Creatinine [Pending], Estimat Glomerular Filtration Rate [Pending], Glucose Level [Pending], Calcium Level [Pending], Phosphorus Level [Pending], Magnesium Level [Pending], Total Bilirubin [Pending], Aspartate Amino Transf (AST/SGOT) [ Pending], Alanine Aminotransferase (ALT/SGPT) [Pending], Alkaline Phosphatase [ Pending], Lactate Dehydrogenase [Pending], Total Protein [Pending], Albumin [ Pending], Globulin [Pending], Vancomycin Level Trough [Pending] Height (Feet): 5 Height (Inches): 7.00 Weight (Pounds): 161 General Appearance: lethargic EENT: normal ENT inspection Neck: normal alignment Cardiovascular: normal peripheral pulses, normal rate, regular rhythm Respiratory/Chest: chest wall non-tender, lungs clear, normal breath sounds Abdomen: normal bowel sounds, non tender, soft Extremities: normal inspection Edema: no edema noted Arm (L), no edema noted Arm (R), no edema noted Leg (L), no edema noted Leg (R), no edema noted Pedal (L), no edema noted Pedal (R), no edema noted Generalized Neurologic: motor weakness Skin: normal pigmentation, warm/dry Abdullahi Gonzalez DO Nov 21, 2018 08:38
[2018-11-21 08:42] LABS: HEMATOCRIT 21.9 % (42.0-52.0); HEMOGLOBIN 7.4 G/DL (14.2-18.0); MEAN CORPUSCULAR VOLUME 90 FL (80-99); PLATELET COUNT 209 K/UL (150-450); RED BLOOD COUNT 2.43 M/UL (4.70-6.10); RED CELL DISTRIBUTION WIDTH 18.6 % (11.6-14.8); WHITE BLOOD COUNT 11.8 K/UL (4.8-10.8)
[2018-11-21 09:16] LABS: ALANINE AMINOTRANSFERASE 24 U/L (12-78); ALBUMIN 1.1 G/DL (3.4-5.0); ALBUMIN/GLOBULIN RATIO 0.3 (1.0-2.7); ALKALINE PHOSPHATASE 82 U/L (46-116); ASPARTATE AMINO TRANSFERASE 18 U/L (15-37); BILIRUBIN,TOTAL 0.6 MG/DL (0.2-1.0); CARBON DIOXIDE 23 MMOL/L (21-32); CHLORIDE 100 MMOL/L (98-107); LACTATE DEHYDROGENASE 246 U/L (81-234); PHOSPHORUS 2.9 MG/DL (2.5-4.9); POTASSIUM 3.8 MMOL/L (3.5-5.1); SODIUM 131 MMOL/L (136-145)
[2018-11-21 09:43] LABS: BLOOD UREA NITROGEN 11 mg/dL (7-18); CALCIUM 7.9 MG/DL (8.5-10.1)
[2018-11-21 10:04] LABS: CREATININE 0.4 MG/DL (0.55-1.30)
[2018-11-21] MEDS: Cefepime 1gm in D5W 55ml IVPB SCH ×2 (10:50→21:50)
--- NOTE | 2018-11-21 10:58 | Infectious Diseases Prog Note ---
Assessment/Plan Assessment/Plan Abx: IV Vancomycin 11/18- Cefepime 11/18- Levaquin x 1 11/18 Assessment: Sepsis Pneumonia -CXR: Patchy bilateral infiltrates versus mixed interstitial alveolar edema noted. -sp cx GNR Afebrile Leukocytosis; improving S/aureus bacteremia- ?from PNA- r/o MRSA, r/o endocarditis -11/18 Bcx 2/4 S. aureus, 1/4 S. capitis, Diptheroids (these 2 are contaminants ); 11/19 BCx NTD -2d Echo:limited study (no vegetations) Probable UTI -u/a wbc 10-15, nit neg, leuk +2; ucx MDR ABC (S bactrim, gentamicin) Acute respiratory failure Sacral decubitus ulcer, necrotic, surrounding cellulitis dementia HTN CKD COPD dysphagia s/p Gtube feeding Parkinson disease seizure disorder multiple decubiti wounds alf resident Plan: -Continue empiric IV Vancomycin and Cefepime #4 for PNA, bacteremia -Add Bactrim #2 for probable UTI -11/18 SP Levaquin x1 -f/u cx -Monitor CBC/CMP, temperatures -f/u sp cx, legionella ag urine -GT care -aspiration precautions -wound care per surgical team -f/u repeat Bcx x2 -Recommend FLORINA Thank you for this consultation. Will continue to follow along with you. Discussed with RN and Dr Reis. Subjective Allergies: Coded Allergies: No Known Allergies (Unverified , 11/18/18) Subjective afebrile leukocytosis overall improved Repeat Bcx NTD Objective Vital Signs Last 24 Hour Vital Signs Date Time Temp Pulse Resp B/P (MAP) Pulse Ox O2 Delivery O2 Flow Rate FiO2 11/21/18 09:00 Nasal Cannula 2.0 11/21/18 08:29 100 Nasal Cannula 2.0 28 11/21/18 08:29 101 20 100 Nasal Cannula 2.0 28 11/21/18 08:00 116 11/21/18 08:00 98.0 101 20 134/76 (95) 100 11/21/18 04:00 97.6 95 18 132/84 (100) 97 11/21/18 04:00 101 11/21/18 00:00 98.4 103 18 108/68 (81) 98 11/21/18 00:00 107 11/20/18 21:00 Nasal Cannula 2.0 11/20/18 20:00 98.4 92 16 103/63 (76) 100 11/20/18 20:00 106 11/20/18 19:18 102 20 98 Nasal Cannula 2.0 28 11/20/18 19:18 98 Nasal Cannula 2.0 28 11/20/18 16:00 97.9 100 23 102/64 (77) 98 11/20/18 16:00 105 11/20/18 12:08 108 18 100 11/20/18 12:07 107 18 100 11/20/18 12:00 99 11/20/18 12:00 97.7 98 23 133/57 (82) 100 11/20/18 11:30 100 Nasal Cannula 2.0 28 Height (Feet): 5 Height (Inches): 7.00 Weight (Pounds): 161 Objective General Appearance: WD/WN, no apparent distress Lines, tubes and drains: central line HEENT: normocephalic, atraumatic Neck: non-tender, normal alignment Cardiovascular/Chest: normal peripheral pulses, normal rate, regular rhythm Abdomen: normal bowel sounds, non tender Extremities: normal range of motion Skin Exam: normal pigmentation Neurologic: file clerk II-XII grossly normal Microbiology Date/Time Source Procedure Growth Status 11/19/18 20:10 Blood Blood Culture - Preliminary NO GROWTH AFTER 24 HOURS Resulted 11/19/18 20:00 Blood Blood Culture - Preliminary NO GROWTH AFTER 24 HOURS Resulted 11/20/18 11:15 Sputum Induced Gram Stain - Final Resulted 11/20/18 11:15 Sputum Culture - Preliminary Gram Negative Bacillus 1 Resulted Laboratory Tests Test 11/21/18 07:50 White Blood Count 11.8 K/UL (4.8-10.8) H Red Blood Count 2.43 M/UL (4.70-6.10) L Hemoglobin 7.4 G/DL (14.2-18.0) L Hematocrit 21.9 % (42.0-52.0) L Mean Corpuscular Volume 90 FL (80-99) Mean Corpuscular Hemoglobin 30.6 PG (27.0-31.0) Mean Corpuscular Hemoglobin Concent 33.9 G/DL (32.0-36.0) Red Cell Distribution Width 18.6 % (11.6-14.8) H Platelet Count 209 K/UL (150-450) Mean Platelet Volume 4.9 FL (6.5-10.1) L Neutrophils (%) (Auto) % (45.0-75.0) Lymphocytes (%) (Auto) % (20.0-45.0) Monocytes (%) (Auto) % (1.0-10.0) Eosinophils (%) (Auto) % (0.0-3.0) Basophils (%) (Auto) % (0.0-2.0) Differential Total Cells Counted 100 Neutrophils % (Manual) 80 % (45-75) H Lymphocytes % (Manual) 4 % (20-45) L Monocytes % (Manual) 8 % (1-10) Eosinophils % (Manual) 1 % (0-3) Basophils % (Manual) 0 % (0-2) Band Neutrophils 7 % (0-8) Platelet Estimate Adequate Platelet Morphology Normal Hypochromasia 1+ Anisocytosis 1+ Reticulocyte Count Pending Sodium Level 131 MMOL/L (136-145) L Potassium Level 3.8 MMOL/L (3.5-5.1) Chloride Level 100 MMOL/L (98-107) Carbon Dioxide Level 23 MMOL/L (21-32) Anion Gap mmol/L (5-15) Blood Urea Nitrogen 11 mg/dL (7-18) Creatinine 0.4 MG/DL (0.55-1.30) L Estimat Glomerular Filtration Rate mL/min (>60) Glucose Level 106 MG/DL (74-106) Calcium Level 7.9 MG/DL (8.5-10.1) L Phosphorus Level 2.9 MG/DL (2.5-4.9) Magnesium Level 1.7 MG/DL (1.8-2.4) L Total Bilirubin 0.6 MG/DL (0.2-1.0) Aspartate Amino Transf (AST/SGOT) 18 U/L (15-37) Alanine Aminotransferase (ALT/SGPT) 24 U/L (12-78) Alkaline Phosphatase 82 U/L (46-116) Lactate Dehydrogenase 246 U/L (81-234) H Total Protein 4.7 G/DL (6.4-8.2) L Albumin 1.1 G/DL (3.4-5.0) L Globulin 3.6 g/dL Albumin/Globulin Ratio 0.3 (1.0-2.7) L Vancomycin Level Trough 16.8 ug/mL (5.0-12.0) H Current Medications Medications (Trade) Dose Ordered Sig/Pauline Route PRN Reason Start Time Stop Time Status Last Admin Dose Admin Acetaminophen (Tylenol) 650 mg Q4H PRN ORAL FEVER 11/18/18 07:45 12/18/18 07:44 Albuterol/ Ipratropium (Albuterol/ Ipratropium) 3 ml Q4H PRN HHN Shortness of Breath 11/18/18 07:45 11/23/18 07:44 Carbidopa/Levodopa (Sinemet 25/100) 1 tab THREE TIMES A DAY GT 11/18/18 18:30 12/18/18 18:29 11/20/18 18:21 Cefepime HCl 1 gm/ Dextrose 55 ml @ 110 mls/hr BID@1000,2200 IVPB 11/19/18 13:00 11/25/18 23:59 11/21/18 10:50 Clonidine HCl (Catapres Tab) 0.1 mg Q4H PRN ORAL sbp>170 11/19/18 10:45 12/19/18 10:44 Dextrose (Dextrose 50%) 25 ml Q30M PRN IV Hypoglycemia 11/18/18 07:45 12/18/18 07:44 Dextrose (Dextrose 50%) 50 ml Q30M PRN IV Hypoglycemia 11/18/18 07:45 12/18/18 07:44 Dextrose/ Electrolytes 1,000 ml @ 75 mls/hr [id number] IV 11/19/18 16:00 12/19/18 15:59 11/21/18 08:14 Donepezil HCl (Aricept) 10 mg DAILY GT 11/18/18 09:00 12/18/18 08:59 11/20/18 09:58 Lidocaine HCl (Xylocaine 1% 30ml) 30 ml NOW PRN INJ Radiology Procedure 11/19/18 09:30 11/22/18 09:24 Lorazepam (Ativan) 1 mg Q6H PRN ORAL For Anxiety 11/20/18 05:30 11/27/18 05:29 Mirtazapine (Remeron) 15 mg BEDTIME GT 11/18/18 21:00 12/18/18 20:59 11/20/18 21:04 Morphine Sulfate (Morphine Sulfate) 2 mg Q4H PRN IVP Severe Pain (Pain Scale 7-10) 11/18/18 07:45 11/25/18 07:44 Ondansetron HCl (Zofran) 4 mg Q6H PRN IVP Nausea & Vomiting 11/18/18 07:45 12/18/18 07:44 Polyethylene Glycol (Miralax) 17 gm DAILYPRN PRN ORAL Constipation 11/18/18 07:45 12/18/18 07:44 Trimethoprim/ Sulfamethoxazole (Bactrim-DS) 1 tab Q12HR ORAL 11/20/18 11:37 11/27/18 11:36 11/20/18 21:04 Vancomycin HCl (Vanco rx to dose) 1 ea DAILY PRN MISC Per rx protocol 11/18/18 08:00 12/18/18 07:59 Vancomycin HCl 1 gm/Dextrose 275 ml @ 183.708 mls/hr Q12HR@1100,2300 IVPB 11/19/18 23:00 11/24/18 22:59 11/20/18 22:44 Neva Yee M.D. Nov 21, 2018 10:58
--- NOTE | 2018-11-21 11:05 | NUR ---
CASE MANAGEMENT:REVIEW 11/21/18 SI: SEPSIS. PNEUMONIA. ANEMIA~ S/P 1 UNIT 98.0 116 20 134/76 100% ON 2L/NC WBC+11.8 H/H-7.4/21.9 NA-131 IS: BACTRIM PO Q12 IV VANCOMYCIN Q12 IV CEFEPIME BID IVF@75/HR : TELEMETRY STATUS DCP: FROM [facility]
--- NOTE | 2018-11-21 11:34 | Surgery Progress Note ---
Surgery Progress Note Subjective Additional Comments afebrile, tachycardic leukocytosis on IV Abx dressings changed. Objective Last 24 Hour Vital Signs Date Time Temp Pulse Resp B/P (MAP) Pulse Ox O2 Delivery O2 Flow Rate FiO2 11/21/18 09:00 Nasal Cannula 2.0 11/21/18 08:29 100 Nasal Cannula 2.0 28 11/21/18 08:29 101 20 100 Nasal Cannula 2.0 28 11/21/18 08:00 116 11/21/18 08:00 98.0 101 20 134/76 (95) 100 11/21/18 04:00 97.6 95 18 132/84 (100) 97 11/21/18 04:00 101 11/21/18 00:00 98.4 103 18 108/68 (81) 98 11/21/18 00:00 107 11/20/18 21:00 Nasal Cannula 2.0 11/20/18 20:00 98.4 92 16 103/63 (76) 100 11/20/18 20:00 106 11/20/18 19:18 102 20 98 Nasal Cannula 2.0 28 11/20/18 19:18 98 Nasal Cannula 2.0 28 11/20/18 16:00 97.9 100 23 102/64 (77) 98 11/20/18 16:00 105 11/20/18 12:08 108 18 100 11/20/18 12:07 107 18 100 11/20/18 12:00 99 11/20/18 12:00 97.7 98 23 133/57 (82) 100 I&O Intake and Output 11/20/18 11/21/18 18:59 06:59 Intake Total 1615.000 ml Output Total 900 ml 1100 ml Balance 715.000 ml -1100 ml Free Water 200 ml IV Total 1255.000 ml Tube Feeding 160 ml Output Urine Total 900 ml 1100 ml Estimated Blood Loss 0 ml # Bowel Movements 3 1 Dressing: saturated Wound: other Drains: other Cardiovascular: RSR Respiratory: decreased breath sounds Abdomen: soft, present bowel sounds, non-distended Extremities: no cyanosis Laboratory Tests Test 11/21/18 07:50 White Blood Count 11.8 K/UL (4.8-10.8) H Red Blood Count 2.43 M/UL (4.70-6.10) L Hemoglobin 7.4 G/DL (14.2-18.0) L Hematocrit 21.9 % (42.0-52.0) L Mean Corpuscular Volume 90 FL (80-99) Mean Corpuscular Hemoglobin 30.6 PG (27.0-31.0) Mean Corpuscular Hemoglobin Concent 33.9 G/DL (32.0-36.0) Red Cell Distribution Width 18.6 % (11.6-14.8) H Platelet Count 209 K/UL (150-450) Mean Platelet Volume 4.9 FL (6.5-10.1) L Neutrophils (%) (Auto) % (45.0-75.0) Lymphocytes (%) (Auto) % (20.0-45.0) Monocytes (%) (Auto) % (1.0-10.0) Eosinophils (%) (Auto) % (0.0-3.0) Basophils (%) (Auto) % (0.0-2.0) Differential Total Cells Counted 100 Neutrophils % (Manual) 80 % (45-75) H Lymphocytes % (Manual) 4 % (20-45) L Monocytes % (Manual) 8 % (1-10) Eosinophils % (Manual) 1 % (0-3) Basophils % (Manual) 0 % (0-2) Band Neutrophils 7 % (0-8) Platelet Estimate Adequate Platelet Morphology Normal Hypochromasia 1+ Anisocytosis 1+ Reticulocyte Count 3.1 % (0.5-2.0) H Sodium Level 131 MMOL/L (136-145) L Potassium Level 3.8 MMOL/L (3.5-5.1) Chloride Level 100 MMOL/L (98-107) Carbon Dioxide Level 23 MMOL/L (21-32) Anion Gap mmol/L (5-15) Blood Urea Nitrogen 11 mg/dL (7-18) Creatinine 0.4 MG/DL (0.55-1.30) L Estimat Glomerular Filtration Rate mL/min (>60) Glucose Level 106 MG/DL (74-106) Calcium Level 7.9 MG/DL (8.5-10.1) L Phosphorus Level 2.9 MG/DL (2.5-4.9) Magnesium Level 1.7 MG/DL (1.8-2.4) L Total Bilirubin 0.6 MG/DL (0.2-1.0) Aspartate Amino Transf (AST/SGOT) 18 U/L (15-37) Alanine Aminotransferase (ALT/SGPT) 24 U/L (12-78) Alkaline Phosphatase 82 U/L (46-116) Lactate Dehydrogenase 246 U/L (81-234) H Total Protein 4.7 G/DL (6.4-8.2) L Albumin 1.1 G/DL (3.4-5.0) L Globulin 3.6 g/dL Albumin/Globulin Ratio 0.3 (1.0-2.7) L Vancomycin Level Trough 16.8 ug/mL (5.0-12.0) H Plan Problems: (1) Decubitus skin ulcer Assessment & Plan: Pt presented on admission with multiple pressure injuries. Violaceous macular rash noted to L shoulder ,Upper L side of back and lateral L chest. L upper ext edematous with scattered petechiae. Category 2 skin tear with 10% flap loss noted to L brachial. Small amt sanguineous exudate noted. Unstageable pressure injury Sacrum . Base of wound noted to have 100% mixed slough.necrosis .Edges semi-detached and erythematous. Surrounding non- blanchable erythema without elevation in skin temp ,or induration. (L)9.5cm x (W )6.5cm. NO odor or exudate noted. Full thickness pressure injury lumbar spine in close proximity to sacral pressure injury.Base of wound pink with scattered biofilm. (L)2cm x (W)1.6cm. (+ ) maceration along borders. Periwound without erythema or induration. DTPI noted to medial L heel (L)3.2cm x (W)4.5cm. Base of fluctuant with delineated erythematous borders. Periwound fluctuant with non-blanchable erythema.Additionally, an area of stable dry eschar noted to posterior L heel(L) 0.6cm x (W)0.8cm DTPI Noted to lateral R heel. Maroon discoloration that is fluctuant within base of wound.(L)2.5cm x (W)1cm. DTPI noted to medial R heel. Base of wound fluctuant and is maroon in colour (L) 1.5cm x (W)1cm. Maroon discoloration without fluctuance or induration noted to lateral R tibia , superior but in close proximity to lateral Malleolus.(L)1.4cm x (W)0.5cm. Tx.Plan: Cleanse skin tear L brachial. (Maintain Versatel Contact layer)Apply Silvasorb Gel. Cover with Optifoam drsg. Change every 7 days and prn. Cleanse Sacral wound with Saline. Apply Therahoney. Apply Moisture Barrier Paste periwound. Cover with Optifoam drsg. Change every 3 days and prn. Cleanse wound Lumbar spine with saline. Apply Therahoney. Apply Cavilon Skin Barrier periwound. Cover with Optifoam drsg. Change every 3 days and prn. Apply Cavilon Skin Barrier to Lateral R tibia, R heel and L heel. Cover each site with Optifoam drsg. Change every 7 days and prn. APM/FERNANDEZ mattress overlay. Reposition at least every 2hours or as tolerated. Off-load heels with pillow. (2) Acute DVT (deep venous thrombosis) (3) HCAP (healthcare-associated pneumonia) (4) UTI (urinary tract infection) (5) Anemia, chronic disease (6) Sepsis Assessment & Plan: leukocytosis on IV Abx trend labs cont abx appreciate ID input (7) Feeding by G-tube Assessment & Plan: DAILY ESTIMATED NEEDS: Needs based on Sepsis, wound 60.5kg 25-35 kcals/kg [id number] total kcals 1.25-2 g protein/kg 76-121 g total protein 25-30 mL/kg 5803-5428 total fluid mLs NUTRITION DIAGNOSIS: 1) Increased kcal and pro needs r/t wound healing as evidenced by pt w/ sacral unstageable wound and L heel DTPI. 2) Swallowing difficulty r/t dysphagia as evidenced by pt w/ Parkinson's dz, GT dependent. ENTERAL NUTRITION RECOMMENDATIONS: Glucerna 1.2 @60ml/hr x24 hrs to provide 1440ml, 1728 kcal, 86g pro, 1159ml free H2O - As medically able, rec to start Glucerna 1.2 @20ml/hr, advance as tolerated 10ml q4-6 hrs to goal. - Flush per MD/ HOB over 30 degrees ADDITIONAL RECOMMENDATIONS: 1) Per SNF: 5'6" ht, 133 lbs wt 2) [employer] SPECIALIST eval if oral grat is appropriate 3) Wound care: Add YOLI BID via GT + VIT C 250mg BID 4) Hypoglycemics prn/ niss (8) COPD (chronic obstructive pulmonary disease) (9) Alzheimer's dementia (10) Parkinson disease (11) Seizures Andrew Eugene Nov 21, 2018 11:34
--- NOTE | 2018-11-21 11:42 | Pulmonology Progress Note ---
Assessment/Plan Problems: (1) HCAP (healthcare-associated pneumonia) (2) Sepsis (3) Acute DVT (deep venous thrombosis) (4) Seizures (5) COPD (chronic obstructive pulmonary disease) (6) Anemia, chronic disease (7) Feeding by G-tube (8) Parkinson disease (9) Alzheimer's dementia Assessment/Plan heart rate B P controlled IVC filter can not be done, since radiology thinks it is not an emergency and pt can't consent. colonoscopy continue abx check cultures check electrolytes iv fluids check h/h after transfusion Hem consult appreciated Subjective ROS Limited/Unobtainable: No Constitutional: Reports: no symptoms HEENT: Repors: no symptoms Respiratory: Reports: no symptoms Allergies: Coded Allergies: No Known Allergies (Unverified , 11/18/18) Objective Last 24 Hour Vital Signs Date Time Temp Pulse Resp B/P (MAP) Pulse Ox O2 Delivery O2 Flow Rate FiO2 11/21/18 09:00 Nasal Cannula 2.0 11/21/18 08:29 100 Nasal Cannula 2.0 28 11/21/18 08:29 101 20 100 Nasal Cannula 2.0 28 11/21/18 08:00 116 11/21/18 08:00 98.0 101 20 134/76 (95) 100 11/21/18 04:00 97.6 95 18 132/84 (100) 97 11/21/18 04:00 101 11/21/18 00:00 98.4 103 18 108/68 (81) 98 11/21/18 00:00 107 11/20/18 21:00 Nasal Cannula 2.0 11/20/18 20:00 98.4 92 16 103/63 (76) 100 11/20/18 20:00 106 11/20/18 19:18 102 20 98 Nasal Cannula 2.0 28 11/20/18 19:18 98 Nasal Cannula 2.0 28 11/20/18 16:00 97.9 100 23 102/64 (77) 98 11/20/18 16:00 105 11/20/18 12:08 108 18 100 11/20/18 12:07 107 18 100 11/20/18 12:00 99 11/20/18 12:00 97.7 98 23 133/57 (82) 100 Intake and Output 11/20/18 11/21/18 18:59 06:59 Intake Total 1615.000 ml Output Total 900 ml 1100 ml Balance 715.000 ml -1100 ml Free Water 200 ml IV Total 1255.000 ml Tube Feeding 160 ml Output Urine Total 900 ml 1100 ml Estimated Blood Loss 0 ml # Bowel Movements 3 1 General Appearance: WD/WN HEENT: normocephalic, atraumatic Cardiovascular: normal peripheral pulses, normal rate Abdomen: normal bowel sounds, soft, non tender Microbiology Date/Time Source Procedure Growth Status 11/19/18 20:10 Blood Blood Culture - Preliminary NO GROWTH AFTER 24 HOURS Resulted 11/19/18 20:00 Blood Blood Culture - Preliminary NO GROWTH AFTER 24 HOURS Resulted 11/20/18 11:15 Sputum Induced Gram Stain - Final Resulted 11/20/18 11:15 Sputum Culture - Preliminary Gram Negative Bacillus 1 Resulted Laboratory Tests 11/21/18 07:50: White Blood Count 11.8H, Red Blood Count 2.43L, Hemoglobin 7.4L, Hematocrit 21.9L, Mean Corpuscular Volume 90, Mean Corpuscular Hemoglobin 30.6, Mean Corpuscular Hemoglobin Concent 33.9, Red Cell Distribution Width 18.6H, Platelet Count 209, Mean Platelet Volume 4.9L, Neutrophils (%) (Auto) , Lymphocytes (%) (Auto) , Monocytes (%) (Auto) , Eosinophils (%) (Auto) , Basophils (%) (Auto) , Differential Total Cells Counted 100, Neutrophils % ( Manual) 80H, Lymphocytes % (Manual) 4L, Monocytes % (Manual) 8, Eosinophils % ( Manual) 1, Basophils % (Manual) 0, Band Neutrophils 7, Platelet Estimate Adequate, Platelet Morphology Normal, Hypochromasia 1+, Anisocytosis 1+, Reticulocyte Count 3.1H, Sodium Level 131L, Potassium Level 3.8, Chloride Level 100, Carbon Dioxide Level 23, Anion Gap , Blood Urea Nitrogen 11, Creatinine 0.4L, Estimat Glomerular Filtration Rate , Glucose Level 106, Calcium Level 7.9L , Phosphorus Level 2.9, Magnesium Level 1.7L, Total Bilirubin 0.6, Aspartate Amino Transf (AST/SGOT) 18, Alanine Aminotransferase (ALT/SGPT) 24, Alkaline Phosphatase 82, Lactate Dehydrogenase 246H, Total Protein 4.7L, Albumin 1.1L, Globulin 3.6, Albumin/Globulin Ratio 0.3L, Vancomycin Level Trough 16.8H Current Medications Medications (Trade) Dose Ordered Sig/Pauline Route PRN Reason Start Time Stop Time Status Last Admin Dose Admin Acetaminophen (Tylenol) 650 mg Q4H PRN ORAL FEVER 11/18/18 07:45 12/18/18 07:44 Albuterol/ Ipratropium (Albuterol/ Ipratropium) 3 ml Q4H PRN HHN Shortness of Breath 11/18/18 07:45 11/23/18 07:44 Carbidopa/Levodopa (Sinemet 25/) 1 tab THREE TIMES A DAY GT 11/18/18 18:30 12/18/18 18:29 11/20/18 18:21 Cefepime HCl 1 gm/ Dextrose 55 ml @ 110 mls/hr BID@1000,2200 IVPB 11/19/18 13:00 11/25/18 23:59 11/21/18 10:50 Clonidine HCl (Catapres Tab) 0.1 mg Q4H PRN ORAL sbp>170 11/19/18 10:45 12/19/18 10:44 Dextrose (Dextrose 50%) 25 ml Q30M PRN IV Hypoglycemia 11/18/18 07:45 12/18/18 07:44 Dextrose (Dextrose 50%) 50 ml Q30M PRN IV Hypoglycemia 11/18/18 07:45 12/18/18 07:44 Dextrose/ Electrolytes 1,000 ml @ 75 mls/hr [id number] IV 11/19/18 16:00 12/19/18 15:59 11/21/18 08:14 Donepezil HCl (Aricept) 10 mg DAILY GT 11/18/18 09:00 12/18/18 08:59 11/20/18 09:58 Lidocaine HCl (Xylocaine 1% 30ml) 30 ml NOW PRN INJ Radiology Procedure 11/19/18 09:30 11/22/18 09:24 Lorazepam (Ativan) 1 mg Q6H PRN ORAL For Anxiety 11/20/18 05:30 11/27/18 05:29 Mirtazapine (Remeron) 15 mg BEDTIME GT 11/18/18 21:00 12/18/18 20:59 11/20/18 21:04 Morphine Sulfate (Morphine Sulfate) 2 mg Q4H PRN IVP Severe Pain (Pain Scale 7-10) 11/18/18 07:45 11/25/18 07:44 Ondansetron HCl (Zofran) 4 mg Q6H PRN IVP Nausea & Vomiting 11/18/18 07:45 12/18/18 07:44 Polyethylene Glycol (Miralax) 17 gm DAILYPRN PRN ORAL Constipation 11/18/18 07:45 12/18/18 07:44 Trimethoprim/ Sulfamethoxazole (Bactrim-DS) 1 tab Q12HR ORAL 11/20/18 11:37 11/27/18 11:36 11/20/18 21:04 Vancomycin HCl (Vanco rx to dose) 1 ea DAILY PRN MISC Per rx protocol 11/18/18 08:00 12/18/18 07:59 Vancomycin HCl 1 gm/Dextrose 275 ml @ 183.708 mls/hr Q12HR@1100,2300 IVPB 11/19/18 23:00 11/24/18 22:59 11/20/18 22:44 David Carrasquillo MD Nov 21, 2018 11:42
--- NOTE | 2018-11-21 11:53 | General Progress Note ---
Assessment/Plan Problem List: (1) Seizures ICD Codes: R56.9 - Unspecified convulsions SNOMED: 70375500 (2) Parkinson disease ICD Codes: G20 - Parkinson's disease SNOMED: 93988641 (3) Alzheimer's dementia ICD Codes: G30.9 - Alzheimer's disease, unspecified; F02.80 - Dementia in other diseases classified elsewhere without behavioral disturbance SNOMED: 14823260 (4) COPD (chronic obstructive pulmonary disease) ICD Codes: J44.9 - Chronic obstructive pulmonary disease, unspecified SNOMED: 11791185 (5) Feeding by G-tube ICD Codes: Z93.1 - Gastrostomy status SNOMED: 477460292, 446603627, 652551615 (6) Anemia, chronic disease ICD Codes: D63.8 - Anemia in other chronic diseases classified elsewhere SNOMED: 200896200, 423862099 Status: stable, progressing Assessment/Plan: s/p colonoscopy no active lower GIB stable H&H fu cbc prn blood transfusion GTF Subjective ROS Limited/Unobtainable: No Allergies: Coded Allergies: No Known Allergies (Unverified , 11/18/18) Objective Last 24 Hour Vital Signs Date Time Temp Pulse Resp B/P (MAP) Pulse Ox O2 Delivery O2 Flow Rate FiO2 11/21/18 09:00 Nasal Cannula 2.0 11/21/18 08:29 100 Nasal Cannula 2.0 28 11/21/18 08:29 101 20 100 Nasal Cannula 2.0 28 11/21/18 08:00 116 11/21/18 08:00 98.0 101 20 134/76 (95) 100 11/21/18 04:00 97.6 95 18 132/84 (100) 97 11/21/18 04:00 101 11/21/18 00:00 98.4 103 18 108/68 (81) 98 11/21/18 00:00 107 11/20/18 21:00 Nasal Cannula 2.0 11/20/18 20:00 98.4 92 16 103/63 (76) 100 11/20/18 20:00 106 11/20/18 19:18 102 20 98 Nasal Cannula 2.0 28 11/20/18 19:18 98 Nasal Cannula 2.0 28 11/20/18 16:00 97.9 100 23 102/64 (77) 98 11/20/18 16:00 105 11/20/18 12:08 108 18 100 11/20/18 12:07 107 18 100 11/20/18 12:00 99 11/20/18 12:00 97.7 98 23 133/57 (82) 100 Intake and Output 11/20/18 11/21/18 18:59 06:59 Intake Total 1615.000 ml Output Total 900 ml 1100 ml Balance 715.000 ml -1100 ml Free Water 200 ml IV Total 1255.000 ml Tube Feeding 160 ml Output Urine Total 900 ml 1100 ml Estimated Blood Loss 0 ml # Bowel Movements 3 1 Laboratory Tests 11/21/18 07:50: White Blood Count 11.8H, Red Blood Count 2.43L, Hemoglobin 7.4L, Hematocrit 21.9L, Mean Corpuscular Volume 90, Mean Corpuscular Hemoglobin 30.6, Mean Corpuscular Hemoglobin Concent 33.9, Red Cell Distribution Width 18.6H, Platelet Count 209, Mean Platelet Volume 4.9L, Neutrophils (%) (Auto) , Lymphocytes (%) (Auto) , Monocytes (%) (Auto) , Eosinophils (%) (Auto) , Basophils (%) (Auto) , Differential Total Cells Counted 100, Neutrophils % ( Manual) 80H, Lymphocytes % (Manual) 4L, Monocytes % (Manual) 8, Eosinophils % ( Manual) 1, Basophils % (Manual) 0, Band Neutrophils 7, Platelet Estimate Adequate, Platelet Morphology Normal, Hypochromasia 1+, Anisocytosis 1+, Reticulocyte Count 3.1H, Sodium Level 131L, Potassium Level 3.8, Chloride Level 100, Carbon Dioxide Level 23, Anion Gap , Blood Urea Nitrogen 11, Creatinine 0.4L, Estimat Glomerular Filtration Rate , Glucose Level 106, Calcium Level 7.9L , Phosphorus Level 2.9, Magnesium Level 1.7L, Total Bilirubin 0.6, Aspartate Amino Transf (AST/SGOT) 18, Alanine Aminotransferase (ALT/SGPT) 24, Alkaline Phosphatase 82, Lactate Dehydrogenase 246H, Total Protein 4.7L, Albumin 1.1L, Globulin 3.6, Albumin/Globulin Ratio 0.3L, Vancomycin Level Trough 16.8H Height (Feet): 5 Height (Inches): 7.00 Weight (Pounds): 161 General Appearance: lethargic EENT: normal ENT inspection Neck: supple Cardiovascular: normal rate Respiratory/Chest: decreased breath sounds Abdomen: normal bowel sounds, non tender, soft Extremities: non-tender Deacon Dallas MD Nov 21, 2018 11:53
--- NOTE | 2018-11-21 12:10 | Cardiac Electrophysiology PN ---
Assessment/Plan Assessment/Plan 1. Sinus tach due to anemia and sepsis and beta danya withdrawal as was on Metoprolol 12.5 bid at [facility] 2. Hypertension. Off Metoprolol held as BP is 90s. Echo EF 55% 3. Acute right leg DVT. Heparin drip DCed for rectal bleed. IVC filter pending ethics eval. 4. Possible pneumonia and sepsis.On Abx by Dr. Carrasquillo. 5. Parkinsonism. 6. COPD. 7. UTI. 8. Anemia and rectal bleed.S/P Colonoscopy and transfusion 9. Seizure disorder. 10. S/P PEG DW RN Subjective Subjective In sinus tach up to 120s. IVC filter cancelled for now until ethics eval Objective Last 24 Hour Vital Signs Date Time Temp Pulse Resp B/P (MAP) Pulse Ox O2 Delivery O2 Flow Rate FiO2 11/21/18 09:00 Nasal Cannula 2.0 11/21/18 08:29 100 Nasal Cannula 2.0 28 11/21/18 08:29 101 20 100 Nasal Cannula 2.0 11/21/18 08:00 116 11/21/18 08:00 98.0 101 20 134/76 (95) 100 11/21/18 04:00 97.6 95 18 132/84 (100) 97 11/21/18 04:00 101 11/21/18 00:00 98.4 103 18 108/68 (81) 98 11/21/18 00:00 107 11/20/18 21:00 Nasal Cannula 2.0 11/20/18 20:00 98.4 92 16 103/63 (76) 100 11/20/18 20:00 106 11/20/18 19:18 102 20 98 Nasal Cannula 2.0 28 11/20/18 19:18 98 Nasal Cannula 2.0 28 11/20/18 16:00 97.9 100 23 102/64 (77) 98 11/20/18 16:00 105 Intake and Output 11/20/18 11/21/18 18:59 06:59 Intake Total 1615.000 ml Output Total 900 ml 1100 ml Balance 715.000 ml -1100 ml Free Water 200 ml IV Total 1255.000 ml Tube Feeding 160 ml Output Urine Total 900 ml 1100 ml Estimated Blood Loss 0 ml # Bowel Movements 3 1 Laboratory Tests Test 11/21/18 07:50 White Blood Count 11.8 K/UL (4.8-10.8) H Red Blood Count 2.43 M/UL (4.70-6.10) L Hemoglobin 7.4 G/DL (14.2-18.0) L Hematocrit 21.9 % (42.0-52.0) L Mean Corpuscular Volume 90 FL (80-99) Mean Corpuscular Hemoglobin 30.6 PG (27.0-31.0) Mean Corpuscular Hemoglobin Concent 33.9 G/DL (32.0-36.0) Red Cell Distribution Width 18.6 % (11.6-14.8) H Platelet Count 209 K/UL (150-450) Mean Platelet Volume 4.9 FL (6.5-10.1) L Neutrophils (%) (Auto) % (45.0-75.0) Lymphocytes (%) (Auto) % (20.0-45.0) Monocytes (%) (Auto) % (1.0-10.0) Eosinophils (%) (Auto) % (0.0-3.0) Basophils (%) (Auto) % (0.0-2.0) Differential Total Cells Counted 100 Neutrophils % (Manual) 80 % (45-75) H Lymphocytes % (Manual) 4 % (20-45) L Monocytes % (Manual) 8 % (1-10) Eosinophils % (Manual) 1 % (0-3) Basophils % (Manual) 0 % (0-2) Band Neutrophils 7 % (0-8) Platelet Estimate Adequate Platelet Morphology Normal Hypochromasia 1+ Anisocytosis 1+ Reticulocyte Count 3.1 % (0.5-2.0) H Sodium Level 131 MMOL/L (136-145) L Potassium Level 3.8 MMOL/L (3.5-5.1) Chloride Level 100 MMOL/L (98-107) Carbon Dioxide Level 23 MMOL/L (21-32) Anion Gap mmol/L (5-15) Blood Urea Nitrogen 11 mg/dL (7-18) Creatinine 0.4 MG/DL (0.55-1.30) L Estimat Glomerular Filtration Rate mL/min (>60) Glucose Level 106 MG/DL (74-106) Calcium Level 7.9 MG/DL (8.5-10.1) L Phosphorus Level 2.9 MG/DL (2.5-4.9) Magnesium Level 1.7 MG/DL (1.8-2.4) L Total Bilirubin 0.6 MG/DL (0.2-1.0) Aspartate Amino Transf (AST/SGOT) 18 U/L (15-37) Alanine Aminotransferase (ALT/SGPT) 24 U/L (12-78) Alkaline Phosphatase 82 U/L (46-116) Lactate Dehydrogenase 246 U/L (81-234) H Total Protein 4.7 G/DL (6.4-8.2) L Albumin 1.1 G/DL (3.4-5.0) L Globulin 3.6 g/dL Albumin/Globulin Ratio 0.3 (1.0-2.7) L Vancomycin Level Trough 16.8 ug/mL (5.0-12.0) H Microbiology Date/Time Source Procedure Growth Status 11/19/18 20:10 Blood Blood Culture - Preliminary NO GROWTH AFTER 24 HOURS Resulted 11/19/18 20:00 Blood Blood Culture - Preliminary NO GROWTH AFTER 24 HOURS Resulted 11/20/18 11:15 Sputum Induced Gram Stain - Final Resulted 11/20/18 11:15 Sputum Culture - Preliminary Gram Negative Bacillus 1 Resulted Objective HEAD AND NECK: No JVD. LUNGS: Decreased breath sounds. CARDIOVASCULAR: Regular S1 and S2 with no gallop . ABDOMEN: Soft. G-tube intact. EXTREMITIES: Leg edema. Earl Washington MD Nov 21, 2018 12:10
--- NOTE | 2018-11-21 12:15 | Cardiology Report ---
APPROVED REPORT EKG Measurement Heart [id number] Sinus tachycardia with premature atrial complexes Left axis deviation Abnormal ECG
[2018-11-21] MEDS: Vancomycin 1gm/D5W 275ml IVPB SCH ×4 (12:32→23:17)
--- NOTE | 2018-11-21 12:35 | Cardiology Report ---
APPROVED REPORT EKG Measurement Heart [id number] Sinus rhythm with premature atrial complexes Left axis deviation Abnormal ECG
--- NOTE | 2018-11-21 12:57 | Hematology/Onc Progress Note ---
Assessment/Plan Assessment/Plan Assessment and Recs: # Acute right leg DVT. Heparin drip DCed for rectal bleed. --> IVC filter pending at this time --> IVC filter can not be done, since radiology thinks it is not an emergency and pt can't consent. --> agree with need for this given coagulant contraindication --> after ivcf placed and if h/h stable, may consider anticaogulation if not bleeding # Anemia due to GI Bleed, other causes exist, multifactorial --> Anemia workup has been reviewed, FERRITIN 831 --> No evidence of hemolysis is noted, peripheral smear has been reviewed. --> Hgb goal >7. Transfuse prn. --> Epogen or iron at this time is not particularly indicated --> Medications have been reviewed --> low threshold for gi evaluation in case has occult +--> endoscopy and colo pending --> hgb trend: 7.4 --> Blood tx: 1 unit 11/19, # Leukocytosis due to sepsis. --> Monitor for improvement --> urine and blood cultures are both positive, mrsa positive --> IV abx per id # Sinus tach due to anemia and sepsis and beta danya withdrawal as was on Metoprolol 12.5 bid at [facility] --> per cards recs # Hypertension. Hold Metoprolol as BP is 90s. --> cloniditon per cards # S/P PEG The timing of this note does not necessarily reflect the time of the patient was seen. GREATLY APPRECIATE CONSULTATION. Subjective ROS Limited/Unobtainable: Yes Hematologic/Lymphatic: Reports: anemia Allergies: Coded Allergies: No Known Allergies (Unverified , 11/18/18) Subjective 11/20: Colonoscopy for today. S/P 1 unit prbc. 11/21: Pt awake and nonverbal. Hgb at 7.4, blood tx ordered. Objective Objective Current Medications Medications (Trade) Dose Ordered Sig/Pauline Route PRN Reason Start Time Stop Time Status Last Admin Dose Admin Acetaminophen (Tylenol) 650 mg Q4H PRN ORAL FEVER 11/18/18 07:45 12/18/18 07:44 Albuterol/ Ipratropium (Albuterol/ Ipratropium) 3 ml Q4H PRN HHN Shortness of Breath 11/18/18 07:45 11/23/18 07:44 Carbidopa/Levodopa (Sinemet 25/100) 1 tab THREE TIMES A DAY GT 11/18/18 18:30 12/18/18 18:29 11/21/18 12:32 Cefepime HCl 1 gm/ Dextrose 55 ml @ 110 mls/hr BID@1000,2200 IVPB 11/19/18 13:00 11/25/18 23:59 11/21/18 10:50 Clonidine HCl (Catapres Tab) 0.1 mg Q4H PRN ORAL sbp>170 11/19/18 10:45 12/19/18 10:44 Dextrose (Dextrose 50%) 25 ml Q30M PRN IV Hypoglycemia 11/18/18 07:45 12/18/18 07:44 Dextrose (Dextrose 50%) 50 ml Q30M PRN IV Hypoglycemia 11/18/18 07:45 12/18/18 07:44 Dextrose/ Electrolytes 1,000 ml @ 75 mls/hr [id number] IV 11/19/18 16:00 12/19/18 15:59 11/21/18 08:14 Donepezil HCl (Aricept) 10 mg DAILY GT 11/18/18 09:00 12/18/18 08:59 11/20/18 09:58 Lidocaine HCl (Xylocaine 1% 30ml) 30 ml NOW PRN INJ Radiology Procedure 11/19/18 09:30 11/22/18 09:24 Lorazepam (Ativan) 1 mg Q6H PRN ORAL For Anxiety 11/20/18 05:30 11/27/18 05:29 Magnesium Sulfate 100 ml @ 100 mls/hr Q1H IVPB 11/21/18 12:15 11/21/18 13:14 11/21/18 12:31 Mirtazapine (Remeron) 15 mg BEDTIME GT 11/18/18 21:00 12/18/18 20:59 11/20/18 21:04 Morphine Sulfate (Morphine Sulfate) 2 mg Q4H PRN IVP Severe Pain (Pain Scale 7-10) 11/18/18 07:45 11/25/18 07:44 Ondansetron HCl (Zofran) 4 mg Q6H PRN IVP Nausea & Vomiting 11/18/18 07:45 12/18/18 07:44 Polyethylene Glycol (Miralax) 17 gm DAILYPRN PRN ORAL Constipation 11/18/18 07:45 12/18/18 07:44 Trimethoprim/ Sulfamethoxazole (Bactrim-DS) 1 tab Q12HR ORAL 11/20/18 11:37 11/27/18 11:36 11/20/18 21:04 Vancomycin HCl (Vanco rx to dose) 1 ea DAILY PRN MISC Per rx protocol 11/18/18 08:00 12/18/18 07:59 Vancomycin HCl 1 gm/Dextrose 275 ml @ 183.708 mls/hr Q12HR@1100,2300 IVPB 11/19/18 23:00 11/24/18 22:59 11/21/18 12:32 Last 24 Hour Vital Signs Date Time Temp Pulse Resp B/P (MAP) Pulse Ox O2 Delivery O2 Flow Rate FiO2 11/21/18 12:00 98.0 98 20 139/75 (96) 100 11/21/18 09:00 Nasal Cannula 2.0 11/21/18 08:29 100 Nasal Cannula 2.0 28 11/21/18 08:29 101 20 100 Nasal Cannula 2.0 28 11/21/18 08:00 116 11/21/18 08:00 98.0 101 20 134/76 (95) 100 11/21/18 04:00 97.6 95 18 132/84 (100) 97 11/21/18 04:00 101 11/21/18 00:00 98.4 103 18 108/68 (81) 98 11/21/18 00:00 107 11/20/18 21:00 Nasal Cannula 2.0 11/20/18 20:00 98.4 92 16 103/63 (76) 100 11/20/18 20:00 106 11/20/18 19:18 102 20 98 Nasal Cannula 2.0 28 11/20/18 19:18 98 Nasal Cannula 2.0 28 11/20/18 16:00 97.9 100 23 102/64 (77) 98 11/20/18 16:00 105 11/20/18 12:08 108 18 100 11/20/18 12:07 107 18 100 11/20/18 12:00 99 11/20/18 12:00 97.7 98 23 133/57 (82) 100 11/20/18 11:30 100 Nasal Cannula 2.0 28 11/20/18 09:40 97.6 114 21 124/80 97 Nasal Cannula 3 11/20/18 09:30 118 19 118/79 99 Nasal Cannula 3 11/20/18 09:25 108 20 130/70 99 Nasal Cannula 3 11/20/18 09:20 114 19 130/70 100 Simple Mask 6 11/20/18 09:15 97.7 107 18 142/77 100 Simple Mask 6 11/20/18 09:00 Nasal Cannula 2.0 11/20/18 08:00 120 11/20/18 04:00 108 11/20/18 04:00 98.1 103 18 153/83 (106) 100 11/20/18 00:00 104 11/20/18 00:00 98.8 95 20 158/96 (116) 100 11/19/18 21:58 99 Nasal Cannula 2.0 28 11/19/18 21:00 Venturi Mask 10.0 11/19/18 20:00 98.5 88 19 145/75 (98) 98 11/19/18 19:58 112 11/19/18 16:00 98.5 104 18 132/73 (92) 97 11/19/18 16:00 109 11/19/18 15:33 109 Intake and Output 11/20/18 11/21/18 18:59 06:59 Intake Total 1615.000 ml Output Total 900 ml 1100 ml Balance 715.000 ml -1100 ml Free Water 200 ml IV Total 1255.000 ml Tube Feeding 160 ml Output Urine Total 900 ml 1100 ml Estimated Blood Loss 0 ml # Bowel Movements 3 1 Labs Test 11/18/18 13:15 11/18/18 20:10 11/19/18 02:15 11/19/18 03:30 Activated Partial Thromboplast Time 24 SEC (23-33) 32 SEC (23-33) 40 SEC (23-33) Stool Occult Blood Positive (NEGATIVE) White Blood Count 11.6 K/UL (4.8-10.8) Red Blood Count 2.35 M/UL (4.70-6.10) Hemoglobin 7.6 G/DL (14.2-18.0) Hematocrit 22.4 % (42.0-52.0) Mean Corpuscular Volume 95 FL (80-99) Mean Corpuscular Hemoglobin 32.1 PG (27.0-31.0) Mean Corpuscular Hemoglobin Concent 33.8 G/DL (32.0-36.0) Red Cell Distribution Width 15.4 % (11.6-14.8) Platelet Count 244 K/UL (150-450) Mean Platelet Volume 6.0 FL (6.5-10.1) Neutrophils (%) (Auto) % (45.0-75.0) Lymphocytes (%) (Auto) % (20.0-45.0) Monocytes (%) (Auto) % (1.0-10.0) Eosinophils (%) (Auto) % (0.0-3.0) Basophils (%) (Auto) % (0.0-2.0) Sodium Level 139 MMOL/L (136-145) Potassium Level 4.0 MMOL/L (3.5-5.1) Chloride Level 105 MMOL/L (98-107) Carbon Dioxide Level 29 MMOL/L (21-32) Anion Gap 5 mmol/L (5-15) Blood Urea Nitrogen 23 mg/dL (7-18) Creatinine 0.4 MG/DL (0.55-1.30) Estimat Glomerular Filtration Rate mL/min (>60) Glucose Level 101 MG/DL (74-106) Calcium Level 7.8 MG/DL (8.5-10.1) Phosphorus Level 3.3 MG/DL (2.5-4.9) Total Bilirubin 0.6 MG/DL (0.2-1.0) Aspartate Amino Transf (AST/SGOT) 17 U/L (15-37) Alanine Aminotransferase (ALT/SGPT) 20 U/L (12-78) Alkaline Phosphatase 80 U/L (46-116) Pro-B-Type Natriuretic Peptide 356 pg/mL (0-125) Total Protein 4.8 G/DL (6.4-8.2) Albumin 1.1 G/DL (3.4-5.0) Globulin 3.7 g/dL Albumin/Globulin Ratio 0.3 (1.0-2.7) Test 11/19/18 07:30 11/19/18 20:00 11/20/18 08:10 11/21/18 07:50 White Blood Count 11.3 K/UL (4.8-10.8) 12.2 K/UL (4.8-10.8) 11.8 K/UL (4.8-10.8) Red Blood Count 2.22 M/UL (4.70-6.10) 2.56 M/UL (4.70-6.10) 2.43 M/UL (4.70-6.10) Hemoglobin 7.0 G/DL (14.2-18.0) 7.8 G/DL (14.2-18.0) 7.4 G/DL (14.2-18.0) Hematocrit 20.5 % (42.0-52.0) 22.7 % (42.0-52.0) 21.9 % (42.0-52.0) Mean Corpuscular Volume 93 FL (80-99) 89 FL (80-99) 90 FL (80-99) Mean Corpuscular Hemoglobin 31.7 PG (27.0-31.0) 30.6 PG (27.0-31.0) 30.6 PG (27.0-31.0) Mean Corpuscular Hemoglobin Concent 34.2 G/DL (32.0-36.0) 34.5 G/DL (32.0-36.0) 33.9 G/DL (32.0-36.0) Red Cell Distribution Width 14.6 % (11.6-14.8) 18.5 % (11.6-14.8) 18.6 % (11.6-14.8) Platelet Count 249 K/UL (150-450) 272 K/UL (150-450) 209 K/UL (150-450) Mean Platelet Volume 5.6 FL (6.5-10.1) 5.4 FL (6.5-10.1) 4.9 FL (6.5-10.1) Neutrophils (%) (Auto) % (45.0-75.0) % (45.0-75.0) % (45.0-75.0) Lymphocytes (%) (Auto) % (20.0-45.0) % (20.0-45.0) % (20.0-45.0) Monocytes (%) (Auto) % (1.0-10.0) % (1.0-10.0) % (1.0-10.0) Eosinophils (%) (Auto) % (0.0-3.0) % (0.0-3.0) % (0.0-3.0) Basophils (%) (Auto) % (0.0-2.0) % (0.0-2.0) % (0.0-2.0) Differential Total Cells Counted 100 100 100 Neutrophils % (Manual) 92 % (45-75) 92 % (45-75) 80 % (45-75) Lymphocytes % (Manual) 4 % (20-45) 4 % (20-45) 4 % (20-45) Monocytes % (Manual) 4 % (1-10) 3 % (1-10) 8 % (1-10) Eosinophils % (Manual) 0 % (0-3) 1 % (0-3) 1 % (0-3) Basophils % (Manual) 0 % (0-2) 0 % (0-2) 0 % (0-2) Band Neutrophils 0 % (0-8) 0 % (0-8) 7 % (0-8) Platelet Estimate Adequate Adequate Adequate Platelet Morphology Normal Normal Normal Hypochromasia 3+ 1+ Anisocytosis 1+ 1+ Spherocytes 1+ Iron Level 24 ug/dL (50-175) Total Iron Binding Capacity 101 ug/dL (250-450) Percent Iron Saturation 24 % (15-50) Unsaturated Iron Binding 77 ug/dL (112-346) Ferritin 831 NG/ML (8-388) Vancomycin Level Trough 12.0 ug/mL (5.0-12.0) 16.8 ug/mL (5.0-12.0) Prothrombin Time 10.7 SEC (9.30-11.50) Prothromb Time International Ratio 1.0 (0.9-1.1) Sodium Level 137 MMOL/L (136-145) 131 MMOL/L (136-145) Potassium Level 3.6 MMOL/L (3.5-5.1) 3.8 MMOL/L (3.5-5.1) Chloride Level 103 MMOL/L (98-107) 100 MMOL/L (98-107) Carbon Dioxide Level 26 MMOL/L (21-32) 23 MMOL/L (21-32) Anion Gap 8 mmol/L (5-15) mmol/L (5-15) Blood Urea Nitrogen 18 mg/dL (7-18) 11 mg/dL (7-18) Creatinine 0.4 MG/DL (0.55-1.30) 0.4 MG/DL (0.55-1.30) Estimat Glomerular Filtration Rate mL/min (>60) mL/min (>60) Glucose Level 118 MG/DL (74-106) 106 MG/DL (74-106) Calcium Level 7.8 MG/DL (8.5-10.1) 7.9 MG/DL (8.5-10.1) Phosphorus Level 2.8 MG/DL (2.5-4.9) 2.9 MG/DL (2.5-4.9) Magnesium Level 1.4 MG/DL (1.8-2.4) 1.7 MG/DL (1.8-2.4) Total Bilirubin 0.9 MG/DL (0.2-1.0) 0.6 MG/DL (0.2-1.0) Aspartate Amino Transf (AST/SGOT) 21 U/L (15-37) 18 U/L (15-37) Alanine Aminotransferase (ALT/SGPT) 26 U/L (12-78) 24 U/L (12-78) Alkaline Phosphatase 82 U/L (46-116) 82 U/L (46-116) Total Protein 4.7 G/DL (6.4-8.2) 4.7 G/DL (6.4-8.2) Albumin 1.1 G/DL (3.4-5.0) 1.1 G/DL (3.4-5.0) Globulin 3.6 g/dL 3.6 g/dL Albumin/Globulin Ratio 0.3 (1.0-2.7) 0.3 (1.0-2.7) Reticulocyte Count 3.1 % (0.5-2.0) Lactate Dehydrogenase 246 U/L (81-234) Test 11/21/18 12:31 Height (Feet): 5 Height (Inches): 7.00 Weight (Pounds): 161 Objective PE General Appearance: WD/WN Lines, tubes and drains: central line HEENT: normocephalic, atraumatic Neck: non-tender, normal alignment Breasts: no masses Cardiovascular/Chest: normal peripheral pulses, normal rate, regular rhythm Abdomen: normal bowel sounds, non tender ++ peg Genitourinary/Rectal: normal genital exam, heme negative stool Extremities: normal range of motion Skin Exam: normal pigmentation Neurologic: extension service specialist in charge II-XII grossly normal Avery Giang MD Nov 21, 2018 12:57
--- NOTE | 2018-11-21 13:57 | Cardiac Electrophysiology PN ---
Assessment/Plan Assessment/Plan 1. Sinus tach due to anemia and sepsis and beta danya withdrawal as was on Metoprolol 12.5 bid at [facility] 2. Hypertension. Off Metoprolol held as BP is 90s. Echo EF 55% 3. Acute right leg DVT. Heparin drip DCed for rectal bleed. IVC filter pending ethics eval. 4. Staph aureous bacteremia.On Abx by Dr. Yee who recommended FLORINA 5. Parkinsonism. 6. COPD. 7. UTI. 8. Anemia and rectal bleed.S/P Colonoscopy and transfusion 9. Seizure disorder. 10. S/P PEG DW RN Subjective Subjective In sinus tach up to 120s. IVC filter cancelled for now until ethics eval. Has Staff Aureus Bacteremia Objective Last 24 Hour Vital Signs Date Time Temp Pulse Resp B/P (MAP) Pulse Ox O2 Delivery O2 Flow Rate FiO2 11/21/18 12:00 97 11/21/18 12:00 98.0 98 20 139/75 (96) 100 11/21/18 09:00 Nasal Cannula 2.0 11/21/18 08:29 100 Nasal Cannula 2.0 28 11/21/18 08:29 101 20 100 Nasal Cannula 2.0 28 11/21/18 08:00 116 11/21/18 08:00 98.0 101 20 134/76 (95) 100 11/21/18 04:00 97.6 95 18 132/84 (100) 97 11/21/18 04:00 101 11/21/18 00:00 98.4 103 18 108/68 (81) 98 11/21/18 00:00 107 11/20/18 21:00 Nasal Cannula 2.0 11/20/18 20:00 98.4 92 16 103/63 (76) 100 11/20/18 20:00 106 11/20/18 19:18 102 20 98 Nasal Cannula 2.0 28 11/20/18 19:18 98 Nasal Cannula 2.0 28 11/20/18 16:00 97.9 100 23 102/64 (77) 98 11/20/18 16:00 105 Intake and Output 11/20/18 11/21/18 18:59 06:59 Intake Total 1615.000 ml Output Total 900 ml 1100 ml Balance 715.000 ml -1100 ml Free Water 200 ml IV Total 1255.000 ml Tube Feeding 160 ml Output Urine Total 900 ml 1100 ml Estimated Blood Loss 0 ml # Bowel Movements 3 1 Laboratory Tests Test 11/21/18 07:50 White Blood Count 11.8 K/UL (4.8-10.8) H Red Blood Count 2.43 M/UL (4.70-6.10) L Hemoglobin 7.4 G/DL (14.2-18.0) L Hematocrit 21.9 % (42.0-52.0) L Mean Corpuscular Volume 90 FL (80-99) Mean Corpuscular Hemoglobin 30.6 PG (27.0-31.0) Mean Corpuscular Hemoglobin Concent 33.9 G/DL (32.0-36.0) Red Cell Distribution Width 18.6 % (11.6-14.8) H Platelet Count 209 K/UL (150-450) Mean Platelet Volume 4.9 FL (6.5-10.1) L Neutrophils (%) (Auto) % (45.0-75.0) Lymphocytes (%) (Auto) % (20.0-45.0) Monocytes (%) (Auto) % (1.0-10.0) Eosinophils (%) (Auto) % (0.0-3.0) Basophils (%) (Auto) % (0.0-2.0) Differential Total Cells Counted 100 Neutrophils % (Manual) 80 % (45-75) H Lymphocytes % (Manual) 4 % (20-45) L Monocytes % (Manual) 8 % (1-10) Eosinophils % (Manual) 1 % (0-3) Basophils % (Manual) 0 % (0-2) Band Neutrophils 7 % (0-8) Platelet Estimate Adequate Platelet Morphology Normal Hypochromasia 1+ Anisocytosis 1+ Erythrocyte Sedimentation Rate Pending Reticulocyte Count 3.1 % (0.5-2.0) H Sodium Level 131 MMOL/L (136-145) L Potassium Level 3.8 MMOL/L (3.5-5.1) Chloride Level 100 MMOL/L (98-107) Carbon Dioxide Level 23 MMOL/L (21-32) Anion Gap mmol/L (5-15) Blood Urea Nitrogen 11 mg/dL (7-18) Creatinine 0.4 MG/DL (0.55-1.30) L Estimat Glomerular Filtration Rate mL/min (>60) Glucose Level 106 MG/DL (74-106) Calcium Level 7.9 MG/DL (8.5-10.1) L Phosphorus Level 2.9 MG/DL (2.5-4.9) Magnesium Level 1.7 MG/DL (1.8-2.4) L Total Bilirubin 0.6 MG/DL (0.2-1.0) Aspartate Amino Transf (AST/SGOT) 18 U/L (15-37) Alanine Aminotransferase (ALT/SGPT) 24 U/L (12-78) Alkaline Phosphatase 82 U/L (46-116) Lactate Dehydrogenase 246 U/L (81-234) H Total Protein 4.7 G/DL (6.4-8.2) L Albumin 1.1 G/DL (3.4-5.0) L Globulin 3.6 g/dL Albumin/Globulin Ratio 0.3 (1.0-2.7) L Vancomycin Level Trough 16.8 ug/mL (5.0-12.0) H Microbiology Date/Time Source Procedure Growth Status 11/19/18 20:10 Blood Blood Culture - Preliminary NO GROWTH AFTER 24 HOURS Resulted 11/19/18 20:00 Blood Blood Culture - Preliminary NO GROWTH AFTER 24 HOURS Resulted 11/20/18 11:15 Sputum Induced Gram Stain - Final Resulted 11/20/18 11:15 Sputum Culture - Preliminary Gram Negative Bacillus 1 Resulted Objective HEAD AND NECK: No JVD. LUNGS: Decreased breath sounds. CARDIOVASCULAR: Regular S1 and S2 with no gallop . ABDOMEN: Soft. G-tube intact. EXTREMITIES: Leg edema. Earl Washington MD Nov 21, 2018 13:57
--- NOTE | 2018-11-21 14:25 | NUR ---
NURSE NOTES: Per MONA Reyes - Dr. Cha will continue with IVC filter placement today.
--- NOTE | 2018-11-21 15:05 | NUR ---
NURSE NOTES: Pt picked up for IVC Filter placement by Suzanna dillon, no acute s/s of distress noted.
--- NOTE | 2018-11-21 15:08 | Consultation ---
Consult Note Consult Note asked to eval for HypoNatremia non verbal not historian examined has grewal not edematous data reviewed . Assessment/Plan Low Na likely due to hypotonic IV solution administration other conditions Pneumonia UTI, has grewal bacteremia sacral decub dementia HTN Sz disorder Parkinsons severe Anemia stop HypoTonic IV solution 250 cc 3% saline one time Urine studies Transfuse Per orders Kendall Trinidad MD Nov 21, 2018 15:08
[2018-11-21] MEDS ORDERED: Lidocaine 1% Plain 30 ml INJ PRN (15:45)
[2018-11-21] MEDS ORDERED: Heparin1,000 units/500ml Premix(Conc:2 units/ml) INJ PRN (15:47)
[2018-11-21] MEDS ORDERED: Omnipaque-300 100ml vial INJ PRN (15:47)
[2018-11-21] MEDS ORDERED: NaCl 3% 500ml 250 ML IV ONE (16:00)
--- NOTE | 2018-11-21 16:41 | Pre-Procedure Note/Attestation ---
Pre-Procedure Note/Attestation Complete Prior to Procedure Planned Procedure: not applicable Procedure Narrative: IVC filter placement Indications for Procedure Pre-Operative Diagnosis: DVT, unable to anticoagulate due to GI bleed. Attestation Patient unable to consent due to advanced dementia. No known family or next of kin. Case is deemed medically necessary and urgent per ordering physician Dr. Carrasquillo, as documented in the EMR. Dr. Carrasquillo essentially acting on behalf of patient and gave consent. Discussed case with hospital risk management as well , who gave ok to proceed with the procedure. Orville Barrientos M.D. Nov 21, 2018 16:41
--- NOTE | 2018-11-21 16:45 | NUR ---
NURSE NOTES: Pt returned from IVC Filter placement
--- NOTE | 2018-11-21 16:53 | Diagnostic Imaging Report ---
Clinical history: DVT. Unable to anticoagulate given GI bleed. Patient unable to consent for himself. No known next of kin. Medical need for the procedure documented in the electronic medical record and consent obtained from the ordering physician Dr. Carrasquillo. Total fluoroscopy time: 112.2 seconds Total fluoroscopy dose: 20.66 mGy Estimated blood loss: Less than 2 mL Procedure time: 30 minutes Complications: None immediate Procedures performed: 1. Sono-guided venous access 2. Inferior venacavogram 3. Placement of IVC filter. Technique and findings: Patient positioned supine on the table and the right neck was prepped and draped in the usual sterile fashion, including usage sterile ultrasound probe cover and sterile ultrasound gel. Preprocedure timeout was performed, as per protocol. The right internal jugular vein was assessed with ultrasound, demonstrated a patent and compressible internal jugular vein. Appropriate access site was chosen and local anesthetic 1% lidocaine. A small dermatotomy made. The right internal jugular vein was accessed under real-time ultrasound guidance utilizing a 21-gauge needle. Sonographic images of needle access stored. Microwire advanced and exchange made over the wire for a micropuncture sheath. Inner dilator and microwire removed and a Bentson wire was advanced across the heart into the inferior vena cava. The tract was serially dilated followed by placement of the introducer sheath for the argon option IVC filter (this is a potentially retrievable IVC filter). Contrast injected via the sheath and digital subtraction venogram was obtained. This showed normal sized IVC is no evidence of caval clot. The renal vein inflow and iliac venous confluence identified. The filter was then advanced and deployed below the level of the renal vein inflow, above the level of the iliac venous confluence. Completion images was obtained. All devices were removed and hemostasis was easily achieved at the right internal jugular vein access site with manual compression. A sterile dressing was applied. The patient tolerated the procedure well and left the department stable condition. IMPRESSION: Successful placement of infrarenal IVC filter as detailed above.
--- NOTE | 2018-11-21 17:45 | Progress Note ---
DATE: 11/21/2018 SUBJECTIVE: This is a 73-year-old patient with sepsis and pneumonia. He has decline in cognition below his baseline with mood lability, decline in cognition below his baseline with increased depression and altered mental status. That is why, his attending has requested daily psychiatric consultation. MENTAL STATUS EXAMINATION: This is a 73-year-old male patient. Appearance is disheveled. Attitude, irritable and agitated. Affect, guarded and restricted. Intellect poor. Mood depressed and anxious. Motor activity, psychomotor agitation. Attention span is poor. Orientation x2. Speech is pressured. Thought process, disorganized and illogical. Insight and judgment is poor. DIAGNOSIS: Major depressive disorder, mild, recurrent with psychotic features, rule out dementia with psychosis. PLAN: Give Ativan 1 mg every 6 hours p.r.n. anxiety and agitation, Remeron 15 mg at bedtime, Aricept 10 mg per G-tube a day. Provided him with 20 minutes of reality based supportive psychotherapy. 20 minutes of cognitive behavioral therapy to help him identify his automatic negative thoughts and help him convert his negative thoughts to more positive thoughts to reduce depression, anxiety, and mood lability. Chart reviewed. Discussed with staff. Seen and assessed in his room. Encouraged him to interact appropriately with staff and other patients. Laith Mason M.D. DR: RACHEL JOB#: [id number] CC:
--- NOTE | 2018-11-21 19:29 | NUR ---
HAND-OFF: Report given to MONA Haley and MONA Van. No acute s/s of distress noted.
--- NOTE | 2018-11-21 19:30 | NUR ---
NURSE NOTES: Pt received from Fabricio RN awake and nonverbal, follows and tracks movement. No s/s of acute distress noted. NC 2 L., Gtube feed restarted at 15 ml/hour. will titrate up as tolerated. Aspiration precautions implemented - HOB elevated, suction at bedside. Siderails padded for seizure precautions. Bradley catheter draining to clear and yellow urine, Bed in lowest position, locked, side rails x2, bed alarm on. Call light and belongings within reach. 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 Patient currently receiving 1 unit of PRBCs which was begun on day shift. Will complete and retake and monitor vitals.
--- NOTE | 2018-11-21 21:45 | NUR ---
NURSE NOTES: Blood transfusion 1 unit PRBCs completed. Pt in stable condition. VS 99.2, 109, 18, 107/64, 100% O2 on 2 L NC. In no acute distress. Will continue to monitor
--- NOTE | 2018-11-21 22:00 | NUR ---
NURSE NOTES: Pt is tolerating GT feed well. Increased rate to 25. Will continue to monitor. No residual
[2018-11-22] VITALS (15 sets, daily range): BP systolic 89–129; BP diastolic 47–69
--- NOTE | 2018-11-22 01:18 | NUR ---
NURSE NOTES: Pt tolerating GT feed well. No residual. Increased rate to 40 ml/hour. Will continue to monitor.
--- NOTE | 2018-11-22 04:16 | Consultation ---
DATE OF CONSULTATION: 11/20/2018 NOTE: POOR AUDIO PSYCHOTHERAPY CONSULTATION PROGRESS NOTE CONSULTING PHYSICIAN: Rashawn Schultz PsyD. TREATING ATTENDING PHYSICIAN: Abdullahi Gonzalez D.O. HISTORY OF PRESENT ILLNESS: The patient is 73 years old. The patient comes to the hospital for pneumonia, weakness . The patient is very confused, disorganized, and helpless. The patient is from [facility]. Due to his confusion and disorganization, he was referred for psychotherapeutic services. I assessed the patient. The patient and confused, disorganized and helpless. He is mostly very isolative and withdrawn. extensive review of records in order to obtain more information for this patient as he is very confused and unable to provide significant amount of information. The patient has no logical or viable plan for self-care and safety at this time and requires hospitalization for stabilization of his symptoms. MEDICAL HISTORY: Includes history of Parkinson disease, DVT, COPD, , possible anemia. ALLERGIES: The patient has no known drug allergies. SUBSTANCE ABUSE HISTORY: There is no indication of alcohol use, illicit drug use, or illicit substance use. PSYCHIATRIC HISTORY: The patient has a history of depression. SOCIAL HISTORY: The patient is a 73-year-old male patient. He is from [facility]. Financially sustained through [employer]. MENTAL STATUS EXAMINATION: The patient is alert and oriented to person. Affect blunted. Thought process, disorganized. The patient has poor attention and concentration. Poor insight, judgment, and impulse control. I PROVIDED THE PATIENT WITH: 1. Reality orientation, which focuses on improving cognitive function of the patient who is confused and disorganized. Oriented to person, place, time, and situation. 2. Supportive psychotherapy, which focuses on identifying positive emotions of stress and very confused, disorganized, and helpless. The patient is a poor historian. DIAGNOSIS: rule out major depressive disorder, recurrent, moderate with maintaining medication compliance. Assess for positive coping skills and provided the patient with reality orientation. This clinician has reviewed the patient's chart. Discussed treatment with treatment team. Psychotherapy provided to this patient, 45 minutes. Rashawn Schultz PsyD. DR: MALLY JOB#: [id number] CC:
--- NOTE | 2018-11-22 06:34 | Pulmonology Progress Note ---
Assessment/Plan Problems: (1) HCAP (healthcare-associated pneumonia) (2) Sepsis (3) Acute DVT (deep venous thrombosis) (4) Seizures (5) COPD (chronic obstructive pulmonary disease) (6) Anemia, chronic disease (7) Feeding by G-tube (8) Parkinson disease (9) Alzheimer's dementia Assessment/Plan heart rate still high IVC filter done yesterday colonoscopy continue abx check cultures check electrolytes iv fluids check h/h after transfusion Hem consult appreciated Subjective ROS Limited/Unobtainable: No Constitutional: Reports: no symptoms HEENT: Repors: no symptoms Respiratory: Reports: no symptoms Allergies: Coded Allergies: No Known Allergies (Unverified , 11/18/18) Objective Last 24 Hour Vital Signs Date Time Temp Pulse Resp B/P (MAP) Pulse Ox O2 Delivery O2 Flow Rate FiO2 11/22/18 04:00 115 11/22/18 00:00 98.4 105 20 119/69 (86) 100 11/22/18 00:00 106 11/21/18 21:00 Nasal Cannula 2.0 11/21/18 20:00 109 11/21/18 20:00 112 18 98 Nasal Cannula 2.0 28 11/21/18 20:00 98.7 111 20 104/65 (78) 100 11/21/18 19:30 98 Nasal Cannula 2.0 28 11/21/18 16:15 112 18 129/77 (94) 99 11/21/18 16:10 113 18 135/72 (93) 99 11/21/18 16:05 118 18 128/69 (88) 99 11/21/18 16:00 139 11/21/18 15:39 107 18 3.0 11/21/18 12:00 97 11/21/18 12:00 98.0 98 20 139/75 (96) 100 11/21/18 09:00 Nasal Cannula 2.0 11/21/18 08:29 100 Nasal Cannula 2.0 28 11/21/18 08:29 101 20 100 Nasal Cannula 2.0 28 11/21/18 08:00 116 11/21/18 08:00 98.0 101 20 134/76 (95) 100 Intake and Output 11/21/18 11/22/18 19:00 07:00 Intake Total 588.708 ml 360.000 ml Output Total 650 ml Balance -61.292 ml 360.000 ml Intake Oral 120 ml IV Total 423.708 ml 360.000 ml Tube Feeding 45 ml Output Urine Total 650 ml # Bowel Movements 1 General Appearance: WD/WN HEENT: normocephalic, atraumatic Respiratory/Chest: chest wall non-tender, lungs clear Cardiovascular: normal peripheral pulses, normal rate Abdomen: normal bowel sounds, soft, non tender, no organomegaly Microbiology Date/Time Source Procedure Growth Status 11/19/18 20:10 Blood Blood Culture - Preliminary NO GROWTH AFTER 48 HOURS Resulted 11/19/18 20:00 Blood Blood Culture - Preliminary NO GROWTH AFTER 48 HOURS Resulted 11/20/18 11:15 Sputum Induced Gram Stain - Final Resulted 11/20/18 11:15 Sputum Culture - Preliminary Gram Negative Bacillus 1 Resulted Laboratory Tests 11/21/18 07:50: White Blood Count 11.8H, Red Blood Count 2.43L, Hemoglobin 7.4L, Hematocrit 21.9L, Mean Corpuscular Volume 90, Mean Corpuscular Hemoglobin 30.6, Mean Corpuscular Hemoglobin Concent 33.9, Red Cell Distribution Width 18.6H, Platelet Count 209, Mean Platelet Volume 4.9L, Neutrophils (%) (Auto) , Lymphocytes (%) (Auto) , Monocytes (%) (Auto) , Eosinophils (%) (Auto) , Basophils (%) (Auto) , Differential Total Cells Counted 100, Neutrophils % ( Manual) 80H, Lymphocytes % (Manual) 4L, Monocytes % (Manual) 8, Eosinophils % ( Manual) 1, Basophils % (Manual) 0, Band Neutrophils 7, Platelet Estimate Adequate, Platelet Morphology Normal, Hypochromasia 1+, Anisocytosis 1+, Reticulocyte Count 3.1H, Sodium Level 131L, Potassium Level 3.8, Chloride Level 100, Carbon Dioxide Level 23, Anion Gap , Blood Urea Nitrogen 11, Creatinine 0.4L, Estimat Glomerular Filtration Rate , Glucose Level 106, Calcium Level 7.9L , Phosphorus Level 2.9, Magnesium Level 1.7L, Total Bilirubin 0.6, Aspartate Amino Transf (AST/SGOT) 18, Alanine Aminotransferase (ALT/SGPT) 24, Alkaline Phosphatase 82, Lactate Dehydrogenase 246H, Total Protein 4.7L, Albumin 1.1L, Globulin 3.6, Albumin/Globulin Ratio 0.3L, Vancomycin Level Trough 16.8H 11/21/18 14:00: Erythrocyte Sedimentation Rate 112H Current Medications Medications (Trade) Dose Ordered Sig/Pauline Route PRN Reason Start Time Stop Time Status Last Admin Dose Admin Acetaminophen (Tylenol) 650 mg Q4H PRN ORAL FEVER 11/18/18 07:45 12/18/18 07:44 Albuterol/ Ipratropium (Albuterol/ Ipratropium) 3 ml Q4H PRN HHN Shortness of Breath 11/18/18 07:45 11/23/18 07:44 Carbidopa/Levodopa (Sinemet 25/100) 1 tab THREE TIMES A DAY GT 11/18/18 18:30 12/18/18 18:29 11/21/18 17:03 Cefepime HCl 1 gm/ Dextrose 55 ml @ 110 mls/hr BID@1000,2200 IVPB 11/19/18 13:00 11/25/18 23:59 11/21/18 21:50 Clonidine HCl (Catapres Tab) 0.1 mg Q4H PRN ORAL sbp>170 11/19/18 10:45 12/19/18 10:44 Dextrose (Dextrose 50%) 25 ml Q30M PRN IV Hypoglycemia 11/18/18 07:45 12/18/18 07:44 Dextrose (Dextrose 50%) 50 ml Q30M PRN IV Hypoglycemia 11/18/18 07:45 12/18/18 07:44 Donepezil HCl (Aricept) 10 mg DAILY GT 11/18/18 09:00 12/18/18 08:59 11/20/18 09:58 Lidocaine HCl (Xylocaine 1% 30ml) 30 ml NOW PRN INJ Radiology Procedure 11/19/18 09:30 11/22/18 09:24 Lorazepam (Ativan) 1 mg Q6H PRN ORAL For Anxiety 11/20/18 05:30 11/27/18 05:29 Mirtazapine (Remeron) 15 mg BEDTIME GT 11/18/18 21:00 12/18/18 20:59 11/21/18 21:49 Morphine Sulfate (Morphine Sulfate) 2 mg Q4H PRN IVP Severe Pain (Pain Scale 7-10) 11/18/18 07:45 11/25/18 07:44 Ondansetron HCl (Zofran) 4 mg Q6H PRN IVP Nausea & Vomiting 11/18/18 07:45 12/18/18 07:44 Polyethylene Glycol (Miralax) 17 gm DAILYPRN PRN ORAL Constipation 11/18/18 07:45 12/18/18 07:44 Trimethoprim/ Sulfamethoxazole (Bactrim-DS) 1 tab Q12HR ORAL 11/20/18 11:37 11/27/18 11:36 11/21/18 21:49 Vancomycin HCl (Vanco rx to dose) 1 ea DAILY PRN MISC Per rx protocol 11/18/18 08:00 12/18/18 07:59 Vancomycin HCl 1 gm/Dextrose 275 ml @ 183.708 mls/hr Q12HR@1100,2300 IVPB 11/19/18 23:00 11/24/18 22:59 11/21/18 23:17 David Carrasquillo MD Nov 22, 2018 06:34
--- NOTE | 2018-11-22 07:37 | NUR ---
HAND-OFF: Report given to MONA Regalado.
[2018-11-22 08:13] LABS: ALANINE AMINOTRANSFERASE 29 U/L (12-78); ALBUMIN/GLOBULIN RATIO 0.3 (1.0-2.7); ALKALINE PHOSPHATASE 90 U/L (46-116); ANION GAP 9 mmol/L (5-15); ASPARTATE AMINO TRANSFERASE 21 U/L (15-37); BILIRUBIN,TOTAL 0.6 MG/DL (0.2-1.0); BLOOD UREA NITROGEN 10 mg/dL (7-18); CALCIUM 7.5 MG/DL (8.5-10.1); CARBON DIOXIDE 22 MMOL/L (21-32); CHLORIDE 101 MMOL/L (98-107); CHOLESTEROL 119 MG/DL (< 200); CREATININE 0.5 MG/DL (0.55-1.30); GAMMA GLUTAMYL TRANSPEPTIDASE 36 U/L (5-85); HDL CHOLESTEROL 17 MG/DL (40-60); PHOSPHORUS 3.2 MG/DL (2.5-4.9); POTASSIUM 3.7 MMOL/L (3.5-5.1); SODIUM 132 MMOL/L (136-145); TRIGLYCERIDES 111 MG/DL (30-150)
[2018-11-22] MEDS: Levodopa/Carbidopa 25/100 tab GT SCH ×3 (08:29→17:33)
[2018-11-22] MEDS: Donepezil 10mg tab GT SCH (08:29)
[2018-11-22] MEDS: Bactrim-DS 1 tab ORAL SCH (08:29)
--- NOTE | 2018-11-22 08:45 | NUR ---
NURSE NOTES: Report received from Chino Goodman RN. Pt drowsy, nonverbal. VS BP 108/57, HR 121, RR 21, 02SAT 97%. on 3L NC. No signs of pain or discomfort. rhonchi bilateral and diminished lower lobes. non productive cough, provided oral suction. abdomen soft, bowel sounds hypoactive. GT intact, will change dressing. jevity 1.2 @55ml/hr. no residuals. Bradley cath draining light alexandrea urine. skin-see assessment. IV site to Rt AC intact puffy. RT wrist. TKO. HOB elevated, bed locked, in lowest position,will continue with plans of care.
--- NOTE | 2018-11-22 08:47 | Diagnostic Imaging Report ---
EXAM: XR Chest, 1 View. CLINICAL HISTORY: SOB TECHNIQUE: Frontal view of the chest. COMPARISON: 11/19/18. FINDINGS: Lungs: Mildly increased airspace consolidation or atelectasis in both lower lobes. Lung volumes are unchanged. Pleural spaces: Probable small bilateral pleural effusions. No pneumothorax. Heart: Mild cardiomegaly. Mediastinum: No mediastinal widening or shift. Bones: No acute fracture. IMPRESSION: Increased bilateral lower lobe atelectasis or airspace consolidation. Underlying pneumonia may be present. Small bilateral pleural effusions.
--- NOTE | 2018-11-22 08:50 | NUR ---
TRANSFER TO FLOOR: Patient transferred to [facility], per Dr. Carrasquillo. Report given to MONA Segal. Belongings and medications given to MONA Segal. No family per chart.
[2018-11-22] MEDS ORDERED: Lidocaine 1% Plain 30 ml INJ PRN (09:30)
[2018-11-22] MEDS ORDERED: Acetaminophen 650mg/20.3ml GT PRN (09:30)
--- NOTE | 2018-11-22 09:32 | NUR ---
NURSE NOTES: MD HA HERE TO SEE PT. NO NEW ORDERS AT THIS TIME.
[2018-11-22 09:45] LABS: HEMATOCRIT 26.1 % (42.0-52.0); HEMOGLOBIN 8.6 G/DL (14.2-18.0); MEAN CORPUSCULAR VOLUME 93 FL (80-99); PLATELET COUNT 268 K/UL (150-450); RED BLOOD COUNT 2.81 M/UL (4.70-6.10); RED CELL DISTRIBUTION WIDTH 17.4 % (11.6-14.8); WHITE BLOOD COUNT 11.3 K/UL (4.8-10.8)
--- NOTE | 2018-11-22 09:58 | Nephrology Progress Note ---
Assessment/Plan Problem List: (1) Hyponatremia (2) UTI (urinary tract infection) (3) Anemia, chronic disease (4) Alzheimer's dementia (5) Parkinson disease Assessment Low Na likely due to hypotonic IV solution administration other conditions Pneumonia UTI, has grewal bacteremia sacral decub dementia HTN Sz disorder Parkinsons severe Anemia Plan One dose lasix today stop HypoTonic IV solution 250 cc 3% saline one time Urine studies Transfused Per orders roberto carlos khalil Subjective ROS Limited/Unobtainable: No Interval Events/Complaints in ICU Constitutional: Reports: malaise, weakness Objective Objective Last 24 Hour Vital Signs Date Time Temp Pulse Resp B/P (MAP) Pulse Ox O2 Delivery O2 Flow Rate FiO2 11/22/18 08:00 105 11/22/18 08:00 99.3 105 22 92/59 (70) 98 11/22/18 04:00 99.4 108 20 100/61 (74) 97 11/22/18 04:00 115 11/22/18 00:00 98.4 105 20 119/69 (86) 100 11/22/18 00:00 106 11/21/18 21:00 Nasal Cannula 2.0 11/21/18 20:00 109 11/21/18 20:00 112 18 98 Nasal Cannula 2.0 28 11/21/18 20:00 98.7 111 20 104/65 (78) 100 11/21/18 19:30 98 Nasal Cannula 2.0 28 11/21/18 16:15 112 18 129/77 (94) 99 11/21/18 16:10 113 18 135/72 (93) 99 11/21/18 16:05 118 18 128/69 (88) 99 11/21/18 16:00 139 11/21/18 15:39 107 18 3.0 11/21/18 12:00 97 11/21/18 12:00 98.0 98 20 139/75 (96) 100 Intake and Output 11/21/18 11/22/18 19:00 07:00 Intake Total 588.708 ml 360.000 ml Output Total 650 ml 1000 ml Balance -61.292 ml -640.000 ml Intake Oral 120 ml IV Total 423.708 ml 360.000 ml Tube Feeding 45 ml Output Urine Total 650 ml 1000 ml # Bowel Movements 1 Laboratory Tests 11/21/18 14:00: Erythrocyte Sedimentation Rate 112H 11/22/18 07:05: Sodium Level 132L, Potassium Level 3.7, Chloride Level 101, Carbon Dioxide Level 22, Anion Gap 9, Blood Urea Nitrogen 10, Creatinine 0.5L, Estimat Glomerular Filtration Rate , Glucose Level 120H, Osmolality [Pending], Uric Acid 2.2L, Calcium Level 7.5L, Phosphorus Level 3.2, Magnesium Level 1.7L, Total Bilirubin 0.6, Gamma Glutamyl Transpeptidase 36, Aspartate Amino Transf ( AST/SGOT) 21, Alanine Aminotransferase (ALT/SGPT) 29, Alkaline Phosphatase 90, C -Reactive Protein, Quantitative 11.8H, Pro-B-Type Natriuretic Peptide 740H, Total Protein 4.7L, Albumin 1.0L, Globulin 3.7, Albumin/Globulin Ratio 0.3L, Triglycerides Level 111, Cholesterol Level 119, LDL Cholesterol 86, HDL Cholesterol 17L, Cholesterol/HDL Ratio 7.0H, Thyroid Stimulating Hormone (TSH) 3.747H 11/22/18 07:53: Arterial Blood pH 7.513H, Arterial Blood Partial Pressure CO2 27.5L, Arterial Blood Partial Pressure O2 96.4, Arterial Blood HCO3 21.6L, Arterial Blood Oxygen Saturation 97.1, Arterial Blood Base Excess -0.7, Blake Test Positive 11/22/18 09:15: White Blood Count 11.3H, Red Blood Count 2.81L, Hemoglobin 8.6L, Hematocrit 26.1L, Mean Corpuscular Volume 93, Mean Corpuscular Hemoglobin 30.7, Mean Corpuscular Hemoglobin Concent 33.0, Red Cell Distribution Width 17.4H, Platelet Count 268, Mean Platelet Volume 5.2L, Neutrophils (%) (Auto) , Lymphocytes (%) (Auto) , Monocytes (%) (Auto) , Eosinophils (%) (Auto) , Basophils (%) (Auto) , Neutrophils % (Manual) [Pending], Lymphocytes % (Manual) [Pending], Platelet Estimate [Pending], Platelet Morphology [Pending], Hemoglobin A1c 5.1 Height (Feet): 5 Height (Inches): 7.00 Weight (Pounds): 161 General Appearance: no apparent distress Cardiovascular: bradycardia Respiratory/Chest: decreased breath sounds Abdomen: distended Kendall Trinidad MD Nov 22, 2018 09:58
[2018-11-22] MEDS ORDERED: LORazepam 1mg tab GT PRN ×2 (10:00→18:56)
[2018-11-22] MEDS ORDERED: Morphine Sulfate 2mg/ml Inj(IV/IM USE ONLY) IVP PRN ×2 (10:00→18:56)
[2018-11-22] MEDS ORDERED: Albuterol/Ipratropium 3ml neb HHN PRN ×2 (10:00→18:56)
[2018-11-22] MEDS ORDERED: Miralax 17gm pkt ORAL PRN ×2 (10:00→18:57)
[2018-11-22] MEDS ORDERED: Cefepime HCl 1 GM in D5W 55 ML IVPB SCH (10:00)
--- NOTE | 2018-11-22 10:00 | NUR ---
NURSE NOTES: MD CEJA HERE TO SEE PT. WILL PLACE ORDER TO REPLACE MG 1.7. WITH 4GM MG.
--- NOTE | 2018-11-22 10:11 | General Progress Note ---
Assessment/Plan Problem List: (1) Acute DVT (deep venous thrombosis) ICD Codes: I82.409 - Acute embolism and thrombosis of unspecified deep veins of unspecified lower extremity SNOMED: 249370297342186 (2) UTI (urinary tract infection) ICD Codes: N39.0 - Urinary tract infection, site not specified SNOMED: 20094318, 948565018 Qualifiers: Qualified Codes: N30.00 - Acute cystitis without hematuria (3) Anemia, chronic disease ICD Codes: D63.8 - Anemia in other chronic diseases classified elsewhere SNOMED: 987153563, 449548752 (4) Parkinson disease ICD Codes: G20 - Parkinson's disease SNOMED: 94116903 (5) Alzheimer's dementia ICD Codes: G30.9 - Alzheimer's disease, unspecified; F02.80 - Dementia in other diseases classified elsewhere without behavioral disturbance SNOMED: 07835844 (6) COPD (chronic obstructive pulmonary disease) ICD Codes: J44.9 - Chronic obstructive pulmonary disease, unspecified SNOMED: 20952324 Status: stable, progressing Assessment/Plan: o2 pulm tx abx pt diet heme f/u cbc bmp am aru eval Subjective Constitutional: Reports: weakness Allergies: Coded Allergies: No Known Allergies (Unverified , 11/18/18) All Systems: reviewed and negative except above Subjective in icu o2nc sleepy Objective Last 24 Hour Vital Signs Date Time Temp Pulse Resp B/P (MAP) Pulse Ox O2 Delivery O2 Flow Rate FiO2 11/22/18 08:00 105 11/22/18 08:00 99.3 105 22 92/59 (70) 98 11/22/18 04:00 99.4 108 20 100/61 (74) 97 11/22/18 04:00 115 11/22/18 00:00 98.4 105 20 119/69 (86) 100 11/22/18 00:00 106 11/21/18 21:00 Nasal Cannula 2.0 11/21/18 20:00 109 11/21/18 20:00 112 18 98 Nasal Cannula 2.0 28 11/21/18 20:00 98.7 111 20 104/65 (78) 100 11/21/18 19:30 98 Nasal Cannula 2.0 28 11/21/18 16:15 112 18 129/77 (94) 99 11/21/18 16:10 113 18 135/72 (93) 99 11/21/18 16:05 118 18 128/69 (88) 99 11/21/18 16:00 139 11/21/18 15:39 107 18 3.0 11/21/18 12:00 97 11/21/18 12:00 98.0 98 20 139/75 (96) 100 Intake and Output 11/21/18 11/22/18 19:00 07:00 Intake Total 588.708 ml 360.000 ml Output Total 650 ml 1000 ml Balance -61.292 ml -640.000 ml Intake Oral 120 ml IV Total 423.708 ml 360.000 ml Tube Feeding 45 ml Output Urine Total 650 ml 1000 ml # Bowel Movements 1 Laboratory Tests 11/21/18 14:00: Erythrocyte Sedimentation Rate 112H 11/22/18 07:05: Sodium Level 132L, Potassium Level 3.7, Chloride Level 101, Carbon Dioxide Level 22, Anion Gap 9, Blood Urea Nitrogen 10, Creatinine 0.5L, Estimat Glomerular Filtration Rate , Glucose Level 120H, Osmolality [Pending], Uric Acid 2.2L, Calcium Level 7.5L, Phosphorus Level 3.2, Magnesium Level 1.7L, Total Bilirubin 0.6, Gamma Glutamyl Transpeptidase 36, Aspartate Amino Transf ( AST/SGOT) 21, Alanine Aminotransferase (ALT/SGPT) 29, Alkaline Phosphatase 90, C -Reactive Protein, Quantitative 11.8H, Pro-B-Type Natriuretic Peptide 740H, Total Protein 4.7L, Albumin 1.0L, Globulin 3.7, Albumin/Globulin Ratio 0.3L, Triglycerides Level 111, Cholesterol Level 119, LDL Cholesterol 86, HDL Cholesterol 17L, Cholesterol/HDL Ratio 7.0H, Thyroid Stimulating Hormone (TSH) 3.747H 11/22/18 07:53: Arterial Blood pH 7.513H, Arterial Blood Partial Pressure CO2 27.5L, Arterial Blood Partial Pressure O2 96.4, Arterial Blood HCO3 21.6L, Arterial Blood Oxygen Saturation 97.1, Arterial Blood Base Excess -0.7, Blake Test Positive 11/22/18 09:15: White Blood Count 11.3H, Red Blood Count 2.81L, Hemoglobin 8.6L, Hematocrit 26.1L, Mean Corpuscular Volume 93, Mean Corpuscular Hemoglobin 30.7, Mean Corpuscular Hemoglobin Concent 33.0, Red Cell Distribution Width 17.4H, Platelet Count 268, Mean Platelet Volume 5.2L, Neutrophils (%) (Auto) , Lymphocytes (%) (Auto) , Monocytes (%) (Auto) , Eosinophils (%) (Auto) , Basophils (%) (Auto) , Neutrophils % (Manual) [Pending], Lymphocytes % (Manual) [Pending], Platelet Estimate [Pending], Platelet Morphology [Pending], Hemoglobin A1c 5.1 Height (Feet): 5 Height (Inches): 7.00 Weight (Pounds): 161 General Appearance: lethargic EENT: normal ENT inspection Neck: normal alignment Cardiovascular: normal peripheral pulses, normal rate, regular rhythm Respiratory/Chest: chest wall non-tender, lungs clear, normal breath sounds Abdomen: normal bowel sounds, non tender, soft Extremities: normal inspection Edema: no edema noted Arm (L), no edema noted Arm (R), no edema noted Leg (L), no edema noted Leg (R), no edema noted Pedal (L), no edema noted Pedal (R), no edema noted Generalized Neurologic: motor weakness Skin: normal pigmentation, warm/dry Abdullahi Gonzalez DO Nov 22, 2018 10:11
--- NOTE | 2018-11-22 10:47 | Infectious Diseases Prog Note ---
Assessment/Plan Assessment/Plan Abx: IV Vancomycin 11/18- Cefepime 11/18- Levaquin x 1 11/18 Assessment: Sepsis Pneumonia -CXR: Patchy bilateral infiltrates versus mixed interstitial alveolar edema noted. -sp cx GNR Afebrile Leukocytosis; improving S/aureus bacteremia- ?from PNA- r/o MRSA, r/o endocarditis -11/18 Bcx 2/4 S. aureus, 1/4 S. capitis, Diptheroids (these 2 are contaminants ); 11/19 BCx NTD -2d Echo:limited study (no vegetations) Probable UTI -u/a wbc 10-15, nit neg, leuk +2; ucx MDR ABC (S bactrim, gentamicin) Acute respiratory failure Sacral decubitus ulcer, necrotic, surrounding cellulitis dementia HTN CKD COPD dysphagia s/p Gtube feeding Parkinson disease seizure disorder multiple decubiti wounds skilled nursing resident Plan: -Continue empiric IV Vancomycin #5 for MRSA bacteremia -Continue Cefepime #5 for PNA pending ID and sensi GNR -Cont Bactrim #3 for probable UTI -11/18 SP Levaquin x1 -f/u cx -Monitor CBC/CMP, temperatures -f/u sp cx, legionella ag urine -GT care -aspiration precautions -wound care per surgical team -f/u repeat Bcx x2 -Recommend FLORINA Thank you for this consultation. Will continue to follow along with you. Discussed with RN and Dr Reis. Subjective Allergies: Coded Allergies: No Known Allergies (Unverified , 11/18/18) Subjective afebrile leukocytosis improved Repeat Bcx NTD On ICU now Objective Vital Signs Last 24 Hour Vital Signs Date Time Temp Pulse Resp B/P (MAP) Pulse Ox O2 Delivery O2 Flow Rate FiO2 11/22/18 08:00 105 11/22/18 08:00 99.3 105 22 92/59 (70) 98 11/22/18 04:00 99.4 108 20 100/61 (74) 97 11/22/18 04:00 115 11/22/18 00:00 98.4 105 20 119/69 (86) 100 11/22/18 00:00 106 11/21/18 21:00 Nasal Cannula 2.0 11/21/18 20:00 109 11/21/18 20:00 112 18 98 Nasal Cannula 2.0 28 11/21/18 20:00 98.7 111 20 104/65 (78) 100 11/21/18 19:30 98 Nasal Cannula 2.0 28 11/21/18 16:15 112 18 129/77 (94) 99 11/21/18 16:10 113 18 135/72 (93) 99 11/21/18 16:05 118 18 128/69 (88) 99 11/21/18 16:00 139 11/21/18 15:39 107 18 3.0 11/21/18 12:00 97 11/21/18 12:00 98.0 98 20 139/75 (96) 100 Height (Feet): 5 Height (Inches): 7.00 Weight (Pounds): 161 Objective General Appearance: WD/WN, no apparent distress Lines, tubes and drains: central line HEENT: normocephalic, atraumatic Neck: non-tender, normal alignment Cardiovascular/Chest: normal peripheral pulses, normal rate, regular rhythm Abdomen: normal bowel sounds, non tender Extremities: normal range of motion Skin Exam: normal pigmentation 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 Microbiology Date/Time Source Procedure Growth Status 11/19/18 20:10 Blood Blood Culture - Preliminary NO GROWTH AFTER 48 HOURS Resulted 11/19/18 20:00 Blood Blood Culture - Preliminary NO GROWTH AFTER 48 HOURS Resulted 11/20/18 11:15 Sputum Induced Gram Stain - Final Resulted 11/20/18 11:15 Sputum Culture - Preliminary Gram Negative Bacillus 1 Resulted Laboratory Tests Test 11/21/18 14:00 11/22/18 07:05 11/22/18 07:53 11/22/18 09:15 Erythrocyte Sedimentation Rate 112 MM/HR (0-20) H Sodium Level 132 MMOL/L (136-145) L Potassium Level 3.7 MMOL/L (3.5-5.1) Chloride Level 101 MMOL/L (98-107) Carbon Dioxide Level 22 MMOL/L (21-32) Anion Gap 9 mmol/L (5-15) Blood Urea Nitrogen 10 mg/dL (7-18) Creatinine 0.5 MG/DL (0.55-1.30) L Estimat Glomerular Filtration Rate mL/min (>60) Glucose Level 120 MG/DL (74-106) H Osmolality Pending Uric Acid 2.2 MG/DL (2.6-7.2) L Calcium Level 7.5 MG/DL (8.5-10.1) L Phosphorus Level 3.2 MG/DL (2.5-4.9) Magnesium Level 1.7 MG/DL (1.8-2.4) L Total Bilirubin 0.6 MG/DL (0.2-1.0) Gamma Glutamyl Transpeptidase 36 U/L (5-85) Aspartate Amino Transf (AST/SGOT) 21 U/L (15-37) Alanine Aminotransferase (ALT/SGPT) 29 U/L (12-78) Alkaline Phosphatase 90 U/L (46-116) C-Reactive Protein, Quantitative 11.8 mg/dL (0.00-0.90) H Pro-B-Type Natriuretic Peptide 740 pg/mL (0-125) H Total Protein 4.7 G/DL (6.4-8.2) L Albumin 1.0 G/DL (3.4-5.0) L Globulin 3.7 g/dL Albumin/Globulin Ratio 0.3 (1.0-2.7) L Triglycerides Level 111 MG/DL (30-150) Cholesterol Level 119 MG/DL (< 200) LDL Cholesterol 86 mg/dL (<100) HDL Cholesterol 17 MG/DL (40-60) L Cholesterol/HDL Ratio 7.0 (3.3-4.4) H Thyroid Stimulating Hormone (TSH) 3.747 uiU/mL (0.358-3.740) Arterial Blood pH 7.513 (7.350-7.450) Arterial Blood Partial Pressure CO2 27.5 mmHg (35.0-45.0) L Arterial Blood Partial Pressure O2 96.4 mmHg (75.0-100.0) Arterial Blood HCO3 21.6 mmol/L (22.0-26.0) L Arterial Blood Oxygen Saturation 97.1 % (95-100) Arterial Blood Base Excess -0.7 (-2-2) Blake Test Positive White Blood Count 11.3 K/UL (4.8-10.8) H Red Blood Count 2.81 M/UL (4.70-6.10) L Hemoglobin 8.6 G/DL (14.2-18.0) L Hematocrit 26.1 % (42.0-52.0) L Mean Corpuscular Volume 93 FL (80-99) Mean Corpuscular Hemoglobin 30.7 PG (27.0-31.0) Mean Corpuscular Hemoglobin Concent 33.0 G/DL (32.0-36.0) Red Cell Distribution Width 17.4 % (11.6-14.8) H Platelet Count 268 K/UL (150-450) Mean Platelet Volume 5.2 FL (6.5-10.1) L Neutrophils (%) (Auto) % (45.0-75.0) Lymphocytes (%) (Auto) % (20.0-45.0) Monocytes (%) (Auto) % (1.0-10.0) Eosinophils (%) (Auto) % (0.0-3.0) Basophils (%) (Auto) % (0.0-2.0) Differential Total Cells Counted 100 Neutrophils % (Manual) 89 % (45-75) H Lymphocytes % (Manual) 6 % (20-45) L Monocytes % (Manual) 4 % (1-10) Eosinophils % (Manual) 1 % (0-3) Basophils % (Manual) 0 % (0-2) Band Neutrophils 0 % (0-8) Platelet Estimate Adequate Platelet Morphology Normal Polychromasia 1+ Anisocytosis 1+ Hemoglobin A1c 5.1 % (4.3-6.0) Current Medications Medications (Trade) Dose Ordered Sig/Pauline Route PRN Reason Start Time Stop Time Status Last Admin Dose Admin Acetaminophen (Tylenol) 650 mg Q4H PRN GT T>100.5 11/22/18 09:30 12/22/18 09:29 Albuterol/ Ipratropium (Albuterol/ Ipratropium) 3 ml Q4H PRN HHN Shortness of Breath 11/22/18 10:00 11/23/18 09:59 Carbidopa/Levodopa (Sinemet 25/100) 1 tab THREE TIMES A DAY GT 11/22/18 13:00 12/18/18 18:29 Cefepime HCl 1 gm/ Dextrose 55 ml @ 110 mls/hr BID@1000,2200 IVPB 11/22/18 10:00 11/25/18 23:59 11/22/18 10:31 Clonidine HCl (Catapres Tab) 0.1 mg Q4H PRN GT sbp>170mmHg 11/22/18 10:45 12/19/18 10:44 Dextrose (Dextrose 50%) 25 ml Q30M PRN IV Hypoglycemia 11/22/18 09:45 12/18/18 07:44 Dextrose (Dextrose 50%) 50 ml Q30M PRN IV Hypoglycemia 11/22/18 09:45 12/18/18 07:44 Donepezil HCl (Aricept) 10 mg DAILY GT 11/23/18 09:00 12/18/18 08:59 Furosemide (Lasix) 20 mg ONCE IV 11/22/18 10:00 11/22/18 11:00 11/22/18 10:31 Lorazepam (Ativan) 1 mg Q6H PRN GT For Anxiety 11/22/18 10:00 11/27/18 09:59 Magnesium Sulfate 100 ml @ 100 mls/hr Q1H IVPB 11/22/18 10:30 11/22/18 14:29 11/22/18 10:32 Mirtazapine (Remeron) 15 mg BEDTIME GT 11/22/18 21:00 12/18/18 20:59 Morphine Sulfate (Morphine Sulfate) 2 mg Q4H PRN IVP Severe Pain (Pain Scale 7-10) 11/22/18 10:00 11/25/18 09:59 Ondansetron HCl (Zofran) 4 mg Q6H PRN IVP Nausea & Vomiting 11/22/18 10:00 12/18/18 09:59 Polyethylene Glycol (Miralax) 17 gm DAILYPRN PRN ORAL Constipation 11/22/18 10:00 12/22/18 09:59 Trimethoprim/ Sulfamethoxazole (Bactrim-DS) 20 ml Q12HR GT 11/22/18 21:00 11/27/18 11:36 Vancomycin HCl (Vanco rx to dose) 1 ea DAILY PRN MISC Per rx protocol 11/22/18 09:00 12/22/18 08:59 Vancomycin HCl 1 gm/Dextrose 275 ml @ 183.708 mls/hr Q12HR@1100,2300 IVPB 11/22/18 11:00 11/24/18 22:59 11/22/18 10:34 Neva Yee M.D. Nov 22, 2018 10:47
[2018-11-22] MEDS ORDERED: Vancomycin 1 GM in D5W 275 ML IVPB SCH (11:00)
--- NOTE | 2018-11-22 13:38 | NUR ---
NURSE NOTES: MD SEBASTIAN HERE TO SEE PT. MAY SURGICALLY CLEAN WOUND SATURDAY OR SATURDAY. PENDING HEALTH STATUS. NO NEW ORDERS AT THIS TIME. PHOTOS OF WOUNDS TAKEN. CLEANED WITH NS AND OPTIFOAM APPLIED.
--- NOTE | 2018-11-22 14:00 | NUR ---
NURSE NOTES: Pt is tolerating GT feed well. Will continue to monitor. No residual. Pt cleaned and repositioned. afebrile.
--- NOTE | 2018-11-22 14:09 | Surgery Progress Note ---
Surgery Progress Note Subjective Additional Comments In ICU ill appearing labs noted exam unchanged. Objective Last 24 Hour Vital Signs Date Time Temp Pulse Resp B/P (MAP) Pulse Ox O2 Delivery O2 Flow Rate FiO2 11/22/18 08:00 105 11/22/18 08:00 99.3 105 22 92/59 (70) 98 11/22/18 04:00 99.4 108 20 100/61 (74) 97 11/22/18 04:00 115 11/22/18 00:00 98.4 105 20 119/69 (86) 100 11/22/18 00:00 106 11/21/18 21:00 Nasal Cannula 2.0 11/21/18 20:00 109 11/21/18 20:00 112 18 98 Nasal Cannula 2.0 28 11/21/18 20:00 98.7 111 20 104/65 (78) 100 11/21/18 19:30 98 Nasal Cannula 2.0 28 11/21/18 16:15 112 18 129/77 (94) 99 11/21/18 16:10 113 18 135/72 (93) 99 11/21/18 16:05 118 18 128/69 (88) 99 11/21/18 16:00 139 11/21/18 15:39 107 18 3.0 I&O Intake and Output 11/21/18 11/22/18 18:59 06:59 Intake Total 573.708 ml 375.000 ml Output Total 650 ml 1000 ml Balance -76.292 ml -625.000 ml Intake Oral 120 ml IV Total 423.708 ml 360.000 ml Tube Feeding 30 ml 15 ml Output Urine Total 650 ml 1000 ml # Bowel Movements 1 Dressing: saturated Wound: other Drains: other Cardiovascular: RSR Respiratory: decreased breath sounds Abdomen: soft, non-distended Extremities: no cyanosis Laboratory Tests Test 11/22/18 07:05 11/22/18 07:53 11/22/18 09:15 Sodium Level 132 MMOL/L (136-145) L Potassium Level 3.7 MMOL/L (3.5-5.1) Chloride Level 101 MMOL/L (98-107) Carbon Dioxide Level 22 MMOL/L (21-32) Anion Gap 9 mmol/L (5-15) Blood Urea Nitrogen 10 mg/dL (7-18) Creatinine 0.5 MG/DL (0.55-1.30) L Estimat Glomerular Filtration Rate mL/min (>60) Glucose Level 120 MG/DL (74-106) H Osmolality 271 mOsm/kg (297-317) L Uric Acid 2.2 MG/DL (2.6-7.2) L Calcium Level 7.5 MG/DL (8.5-10.1) L Phosphorus Level 3.2 MG/DL (2.5-4.9) Magnesium Level 1.7 MG/DL (1.8-2.4) L Total Bilirubin 0.6 MG/DL (0.2-1.0) Gamma Glutamyl Transpeptidase 36 U/L (5-85) Aspartate Amino Transf (AST/SGOT) 21 U/L (15-37) Alanine Aminotransferase (ALT/SGPT) 29 U/L (12-78) Alkaline Phosphatase 90 U/L (46-116) C-Reactive Protein, Quantitative 11.8 mg/dL (0.00-0.90) H Pro-B-Type Natriuretic Peptide 740 pg/mL (0-125) H Total Protein 4.7 G/DL (6.4-8.2) L Albumin 1.0 G/DL (3.4-5.0) L Globulin 3.7 g/dL Albumin/Globulin Ratio 0.3 (1.0-2.7) L Triglycerides Level 111 MG/DL (30-150) Cholesterol Level 119 MG/DL (< 200) LDL Cholesterol 86 mg/dL (<100) HDL Cholesterol 17 MG/DL (40-60) L Cholesterol/HDL Ratio 7.0 (3.3-4.4) H Thyroid Stimulating Hormone (TSH) 3.747 uiU/mL (0.358-3.740) Arterial Blood pH 7.513 (7.350-7.450) Arterial Blood Partial Pressure CO2 27.5 mmHg (35.0-45.0) L Arterial Blood Partial Pressure O2 96.4 mmHg (75.0-100.0) Arterial Blood HCO3 21.6 mmol/L (22.0-26.0) L Arterial Blood Oxygen Saturation 97.1 % (95-100) Arterial Blood Base Excess -0.7 (-2-2) Blake Test Positive White Blood Count 11.3 K/UL (4.8-10.8) H Red Blood Count 2.81 M/UL (4.70-6.10) L Hemoglobin 8.6 G/DL (14.2-18.0) L Hematocrit 26.1 % (42.0-52.0) L Mean Corpuscular Volume 93 FL (80-99) Mean Corpuscular Hemoglobin 30.7 PG (27.0-31.0) Mean Corpuscular Hemoglobin Concent 33.0 G/DL (32.0-36.0) Red Cell Distribution Width 17.4 % (11.6-14.8) H Platelet Count 268 K/UL (150-450) Mean Platelet Volume 5.2 FL (6.5-10.1) L Neutrophils (%) (Auto) % (45.0-75.0) Lymphocytes (%) (Auto) % (20.0-45.0) Monocytes (%) (Auto) % (1.0-10.0) Eosinophils (%) (Auto) % (0.0-3.0) Basophils (%) (Auto) % (0.0-2.0) Differential Total Cells Counted 100 Neutrophils % (Manual) 89 % (45-75) H Lymphocytes % (Manual) 6 % (20-45) L Monocytes % (Manual) 4 % (1-10) Eosinophils % (Manual) 1 % (0-3) Basophils % (Manual) 0 % (0-2) Band Neutrophils 0 % (0-8) Platelet Estimate Adequate Platelet Morphology Normal Polychromasia 1+ Anisocytosis 1+ Hemoglobin A1c 5.1 % (4.3-6.0) Plan Problems: (1) Decubitus skin ulcer Assessment & Plan: Pt presented on admission with multiple pressure injuries. Violaceous macular rash noted to L shoulder ,Upper L side of back and lateral L chest. L upper ext edematous with scattered petechiae. Category 2 skin tear with 10% flap loss noted to L brachial. Small amt sanguineous exudate noted. Unstageable pressure injury Sacrum . Base of wound noted to have 100% mixed slough.necrosis .Edges semi-detached and erythematous. Surrounding non- blanchable erythema without elevation in skin temp ,or induration. (L)9.5cm x (W )6.5cm. NO odor or exudate noted. Full thickness pressure injury lumbar spine in close proximity to sacral pressure injury.Base of wound pink with scattered biofilm. (L)2cm x (W)1.6cm. (+ ) maceration along borders. Periwound without erythema or induration. DTPI noted to medial L heel (L)3.2cm x (W)4.5cm. Base of fluctuant with delineated erythematous borders. Periwound fluctuant with non-blanchable erythema.Additionally, an area of stable dry eschar noted to posterior L heel(L) 0.6cm x (W)0.8cm DTPI Noted to lateral R heel. Maroon discoloration that is fluctuant within base of wound.(L)2.5cm x (W)1cm. DTPI noted to medial R heel. Base of wound fluctuant and is maroon in colour (L) 1.5cm x (W)1cm. Maroon discoloration without fluctuance or induration noted to lateral R tibia , superior but in close proximity to lateral Malleolus.(L)1.4cm x (W)0.5cm. Tx.Plan: Cleanse skin tear L brachial. (Maintain Versatel Contact layer)Apply Silvasorb Gel. Cover with Optifoam drsg. Change every 7 days and prn. Cleanse Sacral wound with Saline. Apply Therahoney. Apply Moisture Barrier Paste periwound. Cover with Optifoam drsg. Change every 3 days and prn. Cleanse wound Lumbar spine with saline. Apply Therahoney. Apply Cavilon Skin Barrier periwound. Cover with Optifoam drsg. Change every 3 days and prn. Apply Cavilon Skin Barrier to Lateral R tibia, R heel and L heel. Cover each site with Optifoam drsg. Change every 7 days and prn. APM/FERNANDEZ mattress overlay. Reposition at least every 2hours or as tolerated. Off-load heels with pillow. (2) Acute DVT (deep venous thrombosis) (3) HCAP (healthcare-associated pneumonia) (4) UTI (urinary tract infection) (5) Anemia, chronic disease (6) Sepsis Assessment & Plan: leukocytosis on IV Abx trend labs cont abx appreciate ID input (7) Feeding by G-tube Assessment & Plan: DAILY ESTIMATED NEEDS: Needs based on Sepsis, wound 60.5kg 25-35 kcals/kg 3967-6648 total kcals 1.25-2 g protein/kg 76-121 g total protein 25-30 mL/kg 2706-1728 total fluid mLs NUTRITION DIAGNOSIS: 1) Increased kcal and pro needs r/t wound healing as evidenced by pt w/ sacral unstageable wound and L heel DTPI. 2) Swallowing difficulty r/t dysphagia as evidenced by pt w/ Parkinson's dz, GT dependent. ENTERAL NUTRITION RECOMMENDATIONS: Glucerna 1.2 @60ml/hr x24 hrs to provide 1440ml, 1728 kcal, 86g pro, 1159ml free H2O - As medically able, rec to start Glucerna 1.2 @20ml/hr, advance as tolerated 10ml q4-6 hrs to goal. 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
[2018-11-22] MEDS ORDERED: NS 275ml ONE (15:38)
--- NOTE | 2018-11-22 17:15 | Progress Note ---
DATE: 11/22/2018 SUBJECTIVE: The patient is a 73-year-old male patient with sepsis and pneumonia. This patient continues to have some confusion and disorganized thought process, but he has sepsis and pneumonia causing him to have altered mental status, confusion, and decline in cognition below his baseline. That is why, his attending has requested daily psychiatric consultation. MENTAL STATUS EXAMINATION: A 73-year-old male patient. Appearance is disheveled. Attitude, irritable and agitated. Affect, guarded and restricted. Intellect poor. Mood depressed and anxious. Motor activity, psychomotor agitation. Attention span is poor. Orientation x2. Speech is pressured. Thought process, disorganized and illogical. Insight and judgment is poor. DIAGNOSIS: Major depressive disorder, mild and recurrent with psychotic features, rule out dementia with psychosis. PLAN: Treat this patient with Remeron 15 mg per G-tube at bedtime and Aricept 10 mg per G-tube daily. Provided him with 20 minutes of cognitive behavioral therapy to help identify his automatic negative thoughts and help him convert those negative thoughts to more positive thoughts to reduce depression, anxiety, and mood lability. Chart reviewed and discussed with staff. Seen and assessed in his room. Encouraged him to interact appropriately with staff and other patients. Laith Mason M.D. DR: JOVANNY JOB#: [id number] CC:
--- NOTE | 2018-11-22 18:40 | NUR ---
TRANSFER TO FLOOR: Patient transferred to [facility], per . Report given to . Belongings and medications given to DUY DUNN Family and or S/O informed of transfer. N/A
--- NOTE | 2018-11-22 18:41 | NUR ---
NURSE NOTES: Received patient in bed. On nasal cannula at 3LPM. Contact isolation observed. On continuous GTF. Bradley cath inplace. No respiratory distress.
--- NOTE | 2018-11-22 19:19 | NUR ---
HAND-OFF: Report given to Kelsey Gore RN.
--- NOTE | 2018-11-22 19:20 | NUR ---
NURSE NOTES: Received patient from MONA Arvizu. Will continue plan of care.
[2018-11-22] MEDS ORDERED: Bactrim Susp 20ml GT SCH (21:00)
[2018-11-22] MEDS: Bactrim Susp 20ml GT SCH (22:03)
[2018-11-22] MEDS: Cefepime HCl 1 GM in D5W 55 ML IVPB SCH (22:07)
[2018-11-22] MEDS: Vancomycin 1 GM in D5W 275 ML IVPB SCH (22:54)
[2018-11-23] VITALS: BP 113/73
[2018-11-23 04:00] VITALS: BP 118/50
--- NOTE | 2018-11-23 06:11 | Pulmonology Progress Note ---
Assessment/Plan Problems: (1) HCAP (healthcare-associated pneumonia) (2) Sepsis (3) Acute DVT (deep venous thrombosis) (4) Seizures (5) COPD (chronic obstructive pulmonary disease) (6) Anemia, chronic disease (7) Feeding by G-tube (8) Parkinson disease (9) Alzheimer's dementia Assessment/Plan heart rate still high IVC filter done yesterday colonoscopy continue abx check cultures check electrolytes iv fluids check h/h after transfusion Hem consult appreciated Subjective ROS Limited/Unobtainable: Yes Constitutional: Reports: no symptoms HEENT: Repors: no symptoms Allergies: Coded Allergies: No Known Allergies (Unverified , 11/18/18) Objective Last 24 Hour Vital Signs Date Time Temp Pulse Resp B/P (MAP) Pulse Ox O2 Delivery O2 Flow Rate FiO2 11/23/18 04:00 Nasal Cannula 4.0 11/23/18 04:00 96.8 89 20 118/50 (72) 98 11/23/18 03:33 98 11/23/18 00:00 98.1 89 20 113/73 (86) 98 11/23/18 00:00 Nasal Cannula 4.0 11/22/18 23:35 98 11/22/18 20:00 97.5 99 24 129/56 (80) 99 11/22/18 20:00 Nasal Cannula 4.0 11/22/18 19:43 100 Nasal Cannula 2.0 28 11/22/18 19:43 113 20 100 Nasal Cannula 2.0 28 11/22/18 19:35 98 11/22/18 18:03 108 18 89/59 (69) 100 11/22/18 17:00 110 20 115/69 (84) 100 11/22/18 16:00 113 21 113/67 (82) 100 11/22/18 16:00 110 11/22/18 15:00 117 17 92/47 (62) 95 11/22/18 14:00 98.7 111 17 92/47 (62) 95 11/22/18 13:00 109 19 96/60 (72) 99 11/22/18 13:00 109 19 96/60 (72) 99 11/22/18 12:00 123 11/22/18 12:00 103 17 96/60 (72) 100 11/22/18 11:00 107 17 112/60 (77) 100 11/22/18 10:00 103 17 108/62 (77) 100 11/22/18 09:30 98 17 107/66 (80) 100 11/22/18 09:00 Nasal Cannula 4.0 11/22/18 08:45 99.3 105 22 92/59 (70) 98 11/22/18 08:00 105 11/22/18 08:00 99.3 105 22 92/59 (70) 98 Intake and Output 11/22/18 11/23/18 19:00 07:00 Intake Total 695 ml 1185.000 ml Output Total 390 ml 900 ml Balance 305 ml 285.000 ml Free Water 90 ml 150 ml IV Total 330.000 ml Tube Feeding 605 ml 605 ml Other 100 ml Output Urine Total 390 ml 900 ml General Appearance: WD/WN HEENT: normocephalic, atraumatic Respiratory/Chest: chest wall non-tender, lungs clear Cardiovascular: normal peripheral pulses, normal rate, regular rhythm Abdomen: normal bowel sounds, soft, non tender Genitourinary: normal external genitalia Extremities: no cyanosis 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 Lymphatic: no neck adenopathy Musculoskeletal: no effusion Microbiology Date/Time Source Procedure Growth Status 11/20/18 11:15 Sputum Induced Gram Stain - Final Resulted 11/20/18 11:15 Sputum Culture - Preliminary Gram Negative Bacillus 1 Resulted Laboratory Tests 11/22/18 07:05: Sodium Level 132L, Potassium Level 3.7, Chloride Level 101, Carbon Dioxide Level 22, Anion Gap 9, Blood Urea Nitrogen 10, Creatinine 0.5L, Estimat Glomerular Filtration Rate , Glucose Level 120H, Osmolality 271L, Uric Acid 2.2L , Calcium Level 7.5L, Phosphorus Level 3.2, Magnesium Level 1.7L, Total Bilirubin 0.6, Gamma Glutamyl Transpeptidase 36, Aspartate Amino Transf (AST/ SGOT) 21, Alanine Aminotransferase (ALT/SGPT) 29, Alkaline Phosphatase 90, C- Reactive Protein, Quantitative 11.8H, Pro-B-Type Natriuretic Peptide 740H, Total Protein 4.7L, Albumin 1.0L, Globulin 3.7, Albumin/Globulin Ratio 0.3L, Triglycerides Level 111, Cholesterol Level 119, LDL Cholesterol 86, HDL Cholesterol 17L, Cholesterol/HDL Ratio 7.0H, Thyroid Stimulating Hormone (TSH) 3.747H 6/29/19 07:53: Arterial Blood pH 7.513H, Arterial Blood Partial Pressure CO2 27.5L, Arterial Blood Partial Pressure O2 96.4, Arterial Blood HCO3 21.6L, Arterial Blood Oxygen Saturation 97.1, Arterial Blood Base Excess -0.7, Blake Test Positive 11/22/18 09:15: White Blood Count 11.3H, Red Blood Count 2.81L, Hemoglobin 8.6L, Hematocrit 26.1L, Mean Corpuscular Volume 93, Mean Corpuscular Hemoglobin 30.7, Mean Corpuscular Hemoglobin Concent 33.0, Red Cell Distribution Width 17.4H, Platelet Count 268, Mean Platelet Volume 5.2L, Neutrophils (%) (Auto) , Lymphocytes (%) (Auto) , Monocytes (%) (Auto) , Eosinophils (%) (Auto) , Basophils (%) (Auto) , Differential Total Cells Counted 100, Neutrophils % ( Manual) 89H, Lymphocytes % (Manual) 6L, Monocytes % (Manual) 4, Eosinophils % ( Manual) 1, Basophils % (Manual) 0, Band Neutrophils 0, Platelet Estimate Adequate, Platelet Morphology Normal, Polychromasia 1+, Anisocytosis 1+, Hemoglobin A1c 5.1 Current Medications Medications (Trade) Dose Ordered Sig/Pauline Route PRN Reason Start Time Stop Time Status Last Admin Dose Admin Acetaminophen (Tylenol) 650 mg Q4H PRN GT T>100.5 11/22/18 18:55 12/22/18 18:54 Albuterol/ Ipratropium (Albuterol/ Ipratropium) 3 ml Q4H PRN HHN Shortness of Breath 11/22/18 18:56 11/27/18 18:55 Carbidopa/Levodopa (Sinemet 25/100) 1 tab THREE TIMES A DAY GT 11/23/18 09:00 12/18/18 18:29 Cefepime HCl 1 gm/ Dextrose 55 ml @ 110 mls/hr Q12HR@1000,2200 IVPB 11/22/18 22:00 11/29/18 21:59 11/22/18 22:07 Clonidine HCl (Catapres Tab) 0.1 mg Q4H PRN GT sbp>170mmHg 11/22/18 18:55 12/22/18 18:54 Dextrose (Dextrose 50%) 25 ml Q30M PRN IV Hypoglycemia 11/22/18 19:15 12/18/18 07:44 Dextrose (Dextrose 50%) 50 ml Q30M PRN IV Hypoglycemia 11/22/18 19:15 12/18/18 07:44 Donepezil HCl (Aricept) 10 mg DAILY GT 11/23/18 09:00 12/18/18 08:59 Lorazepam (Ativan) 1 mg Q6H PRN GT For Anxiety 11/22/18 18:56 11/29/18 18:55 Mirtazapine (Remeron) 15 mg BEDTIME GT 11/22/18 21:00 12/18/18 20:59 11/22/18 22:03 Morphine Sulfate (Morphine Sulfate) 2 mg Q4H PRN IVP Severe Pain (Pain Scale 7-10) 11/22/18 18:56 11/29/18 18:55 Ondansetron HCl (Zofran) 4 mg Q6H PRN IVP Nausea & Vomiting 11/22/18 18:56 12/22/18 18:55 Polyethylene Glycol (Miralax) 17 gm DAILYPRN PRN ORAL Constipation 11/22/18 18:57 12/22/18 18:56 Trimethoprim/ Sulfamethoxazole (Bactrim-DS) 20 ml Q12HR GT 11/22/18 21:00 11/27/18 11:36 11/22/18 22:03 Vancomycin HCl (Vanco rx to dose) 1 ea DAILY PRN MISC Per rx protocol 11/23/18 09:00 12/22/18 08:59 Vancomycin HCl 1 gm/Dextrose 275 ml @ 183.708 mls/hr Q12HR@1100,2300 IVPB 11/22/18 23:00 11/24/18 22:59 11/22/18 22:54 David Carrasquillo MD Nov 23, 2018 06:11
[2018-11-23 06:59] LABS: HEMATOCRIT 26.5 % (42.0-52.0); MEAN CORPUSCULAR VOLUME 94 FL (80-99); PLATELET COUNT 219 K/UL (150-450); RED BLOOD COUNT 2.83 M/UL (4.70-6.10); RED CELL DISTRIBUTION WIDTH 17.4 % (11.6-14.8); WHITE BLOOD COUNT 11.3 K/UL (4.8-10.8)
--- NOTE | 2018-11-23 07:04 | NUR ---
HAND-OFF: Report given to MONA Bishop.
--- NOTE | 2018-11-23 07:05 | NUR ---
NURSE NOTES: Received report from MONA Cole. Observed patient in bed, asleep, opens eyes to verbal stimuli. Patient is nonverbal. On O2 3L via NC, saturating 100% no acute respiratory distress noted at this time. GT intact and patent, feeding infusing at prescribed rate. HOB elevated. Bradley catheter intact and draining well to gravity. Right wrist and left forearm peripheral IV 22g intact and patent. Bed locked, alarmed, and placed in lowest position, padded side rails up x3, and call light left within reach. Will continue plan of care and monitor.
[2018-11-23 07:16] LABS: ALANINE AMINOTRANSFERASE 29 U/L (12-78); ALBUMIN 1.1 G/DL (3.4-5.0); ALBUMIN/GLOBULIN RATIO 0.3 (1.0-2.7); ALKALINE PHOSPHATASE 90 U/L (46-116); ANION GAP 7 mmol/L (5-15); ASPARTATE AMINO TRANSFERASE 21 U/L (15-37); BILIRUBIN,TOTAL 0.4 MG/DL (0.2-1.0); BLOOD UREA NITROGEN 10 mg/dL (7-18); CALCIUM 7.5 MG/DL (8.5-10.1); CARBON DIOXIDE 24 MMOL/L (21-32); CHLORIDE 100 MMOL/L (98-107); CREATININE 0.5 MG/DL (0.55-1.30); SODIUM 131 MMOL/L (136-145)
[2018-11-23 08:00] VITALS: BP 129/88
--- NOTE | 2018-11-23 08:06 | General Progress Note ---
Assessment/Plan Problem List: (1) Acute DVT (deep venous thrombosis) ICD Codes: I82.409 - Acute embolism and thrombosis of unspecified deep veins of unspecified lower extremity SNOMED: 277557638874991 (2) UTI (urinary tract infection) ICD Codes: N39.0 - Urinary tract infection, site not specified SNOMED: 49566828, 066554777 Qualifiers: Qualified Codes: N30.00 - Acute cystitis without hematuria (3) Anemia, chronic disease ICD Codes: D63.8 - Anemia in other chronic diseases classified elsewhere SNOMED: 643746259, 774825071 (4) Parkinson disease ICD Codes: G20 - Parkinson's disease SNOMED: 16114328 (5) Alzheimer's dementia ICD Codes: G30.9 - Alzheimer's disease, unspecified; F02.80 - Dementia in other diseases classified elsewhere without behavioral disturbance SNOMED: 91797598 (6) COPD (chronic obstructive pulmonary disease) ICD Codes: J44.9 - Chronic obstructive pulmonary disease, unspecified SNOMED: 08964930 Status: stable, progressing Assessment/Plan: o2 pulm tx abx pt diet heme f/u cbc bmp am aru eval Subjective Constitutional: Reports: weakness Allergies: Coded Allergies: No Known Allergies (Unverified , 11/18/18) All Systems: reviewed and negative except above Subjective o2nc sleepy Objective Last 24 Hour Vital Signs Date Time Temp Pulse Resp B/P (MAP) Pulse Ox O2 Delivery O2 Flow Rate FiO2 11/23/18 08:00 98.1 92 20 129/88 (102) 99 11/23/18 04:00 Nasal Cannula 4.0 11/23/18 04:00 96.8 89 20 118/50 (72) 98 11/23/18 03:33 98 11/23/18 00:00 98.1 89 20 113/73 (86) 98 11/23/18 00:00 Nasal Cannula 4.0 11/22/18 23:35 98 11/22/18 20:00 97.5 99 24 129/56 (80) 99 11/22/18 20:00 Nasal Cannula 4.0 11/22/18 19:43 100 Nasal Cannula 2.0 28 11/22/18 19:43 113 20 100 Nasal Cannula 2.0 28 11/22/18 19:35 98 11/22/18 18:03 108 18 89/59 (69) 100 11/22/18 17:00 110 20 115/69 (84) 100 11/22/18 16:00 113 21 113/67 (82) 100 11/22/18 16:00 110 11/22/18 15:00 117 17 92/47 (62) 95 11/22/18 14:00 98.7 111 17 92/47 (62) 95 11/22/18 13:00 109 19 96/60 (72) 99 11/22/18 13:00 109 19 96/60 (72) 99 11/22/18 12:00 123 11/22/18 12:00 103 17 96/60 (72) 100 11/22/18 11:00 107 17 112/60 (77) 100 11/22/18 10:00 103 17 108/62 (77) 100 11/22/18 09:30 98 17 107/66 (80) 100 11/22/18 09:00 Nasal Cannula 4.0 11/22/18 08:45 99.3 105 22 92/59 (70) 98 Intake and Output 11/22/18 11/23/18 19:00 07:00 Intake Total 695 ml 1240.000 ml Output Total 390 ml 900 ml Balance 305 ml 340.000 ml Free Water 90 ml 150 ml IV Total 330.000 ml Tube Feeding 605 ml 660 ml Other 100 ml Output Urine Total 390 ml 900 ml Laboratory Tests 11/22/18 09:15: White Blood Count 11.3H, Red Blood Count 2.81L, Hemoglobin 8.6L, Hematocrit 26.1L, Mean Corpuscular Volume 93, Mean Corpuscular Hemoglobin 30.7, Mean Corpuscular Hemoglobin Concent 33.0, Red Cell Distribution Width 17.4H, Platelet Count 268, Mean Platelet Volume 5.2L, Neutrophils (%) (Auto) , Lymphocytes (%) (Auto) , Monocytes (%) (Auto) , Eosinophils (%) (Auto) , Basophils (%) (Auto) , Differential Total Cells Counted 100, Neutrophils % ( Manual) 89H, Lymphocytes % (Manual) 6L, Monocytes % (Manual) 4, Eosinophils % ( Manual) 1, Basophils % (Manual) 0, Band Neutrophils 0, Platelet Estimate Adequate, Platelet Morphology Normal, Polychromasia 1+, Anisocytosis 1+, Hemoglobin A1c 5.1 11/23/18 04:50: White Blood Count 11.3H, Red Blood Count 2.83L, Hemoglobin 9.0L, Hematocrit 26.5L, Mean Corpuscular Volume 94, Mean Corpuscular Hemoglobin 31.9H, Mean Corpuscular Hemoglobin Concent 33.9, Red Cell Distribution Width 17.4H, Platelet Count 219, Mean Platelet Volume 4.3L, Neutrophils (%) (Auto) , Lymphocytes (%) (Auto) , Monocytes (%) (Auto) , Eosinophils (%) (Auto) , Basophils (%) (Auto) , Neutrophils % (Manual) [Pending], Lymphocytes % (Manual) [Pending], Platelet Estimate [Pending], Platelet Morphology [Pending], Sodium Level 131L, Potassium Level 4.0, Chloride Level 100, Carbon Dioxide Level 24, Anion Gap 7, Blood Urea Nitrogen 10, Creatinine 0.5L, Estimat Glomerular Filtration Rate , Glucose Level 119H, Uric Acid 2.1L, Calcium Level 7.5L, Phosphorus Level 3.0, Magnesium Level 1.9, Total Bilirubin 0.4, Aspartate Amino Transf (AST/SGOT) 21, Alanine Aminotransferase (ALT/SGPT) 29, Alkaline Phosphatase 90, C-Reactive Protein, Quantitative 10.4H, Total Protein 4.8L, Albumin 1.1L, Globulin 3.7, Albumin/Globulin Ratio 0.3L Height (Feet): 5 Height (Inches): 7.00 Weight (Pounds): 161 General Appearance: lethargic EENT: normal ENT inspection Neck: normal alignment Cardiovascular: normal peripheral pulses, normal rate, regular rhythm Respiratory/Chest: chest wall non-tender, lungs clear, normal breath sounds Abdomen: normal bowel sounds, non tender, soft Extremities: normal inspection Edema: no edema noted Arm (L), no edema noted Arm (R), no edema noted Leg (L), no edema noted Leg (R), no edema noted Pedal (L), no edema noted Pedal (R), no edema noted Generalized Neurologic: motor weakness Skin: normal pigmentation, warm/dry Abdullahi Gonzalez DO Nov 23, 2018 08:06
[2018-11-23] MEDS ORDERED: Donepezil 10mg tab GT SCH (09:00)
[2018-11-23] MEDS: Bactrim Susp 20ml GT SCH ×2 (09:30→20:20)
[2018-11-23] MEDS: Cefepime HCl 1 GM in D5W 55 ML IVPB SCH (09:30)
[2018-11-23] MEDS: Donepezil 10mg tab GT SCH (09:31)
[2018-11-23] MEDS: Levodopa/Carbidopa 25/100 tab GT SCH ×3 (09:31→17:20)
[2018-11-23] MEDS: Vancomycin 1 GM in D5W 275 ML IVPB SCH ×2 (11:00→23:05)
[2018-11-23 12:00] VITALS: BP 112/80
--- NOTE | 2018-11-23 12:35 | Surgery Progress Note ---
Surgery Progress Note Subjective Additional Comments downgraded from ICU Objective Last 24 Hour Vital Signs Date Time Temp Pulse Resp B/P (MAP) Pulse Ox O2 Delivery O2 Flow Rate FiO2 11/23/18 12:00 97.7 98 8 112/80 (91) 99 11/23/18 12:00 Nasal Cannula 3.0 11/23/18 09:42 97 Nasal Cannula 2.0 28 11/23/18 09:41 92 22 97 Nasal Cannula 2.0 28 11/23/18 08:00 98.1 92 20 129/88 (102) 99 11/23/18 08:00 103 11/23/18 08:00 Nasal Cannula 3.0 11/23/18 04:00 Nasal Cannula 4.0 11/23/18 04:00 96.8 89 20 118/50 (72) 98 11/23/18 03:33 98 11/23/18 00:00 98.1 89 20 113/73 (86) 98 11/23/18 00:00 Nasal Cannula 4.0 11/22/18 23:35 98 11/22/18 20:00 97.5 99 24 129/56 (80) 99 11/22/18 20:00 Nasal Cannula 4.0 11/22/18 19:43 100 Nasal Cannula 2.0 28 11/22/18 19:43 113 20 100 Nasal Cannula 2.0 28 11/22/18 19:35 98 11/22/18 18:03 108 18 89/59 (69) 100 11/22/18 17:00 110 20 115/69 (84) 100 11/22/18 16:00 113 21 113/67 (82) 100 11/22/18 16:00 110 11/22/18 15:00 117 17 92/47 (62) 95 11/22/18 14:00 98.7 111 17 92/47 (62) 95 11/22/18 13:00 109 19 96/60 (72) 99 11/22/18 13:00 109 19 96/60 (72) 99 I&O Intake and Output 11/22/18 11/23/18 19:00 07:00 Intake Total 695 ml 1240.000 ml Output Total 390 ml 900 ml Balance 305 ml 340.000 ml Free Water 90 ml 150 ml IV Total 330.000 ml Tube Feeding 605 ml 660 ml Other 100 ml Output Urine Total 390 ml 900 ml Wound: clean Cardiovascular: RSR Respiratory: decreased breath sounds Abdomen: soft, present bowel sounds Extremities: no cyanosis Laboratory Tests Test 11/23/18 04:50 White Blood Count 11.3 K/UL (4.8-10.8) H Red Blood Count 2.83 M/UL (4.70-6.10) L Hemoglobin 9.0 G/DL (14.2-18.0) L Hematocrit 26.5 % (42.0-52.0) L Mean Corpuscular Volume 94 FL (80-99) Mean Corpuscular Hemoglobin 31.9 PG (27.0-31.0) H Mean Corpuscular Hemoglobin Concent 33.9 G/DL (32.0-36.0) Red Cell Distribution Width 17.4 % (11.6-14.8) H Platelet Count 219 K/UL (150-450) Mean Platelet Volume 4.3 FL (6.5-10.1) L Neutrophils (%) (Auto) % (45.0-75.0) Lymphocytes (%) (Auto) % (20.0-45.0) Monocytes (%) (Auto) % (1.0-10.0) Eosinophils (%) (Auto) % (0.0-3.0) Basophils (%) (Auto) % (0.0-2.0) Differential Total Cells Counted 100 Neutrophils % (Manual) 84 % (45-75) H Lymphocytes % (Manual) 6 % (20-45) L Monocytes % (Manual) 10 % (1-10) Eosinophils % (Manual) 0 % (0-3) Basophils % (Manual) 0 % (0-2) Band Neutrophils 0 % (0-8) Platelet Estimate Adequate Platelet Morphology Normal Anisocytosis 1+ Sodium Level 131 MMOL/L (136-145) L Potassium Level 4.0 MMOL/L (3.5-5.1) Chloride Level 100 MMOL/L (98-107) Carbon Dioxide Level 24 MMOL/L (21-32) Anion Gap 7 mmol/L (5-15) Blood Urea Nitrogen 10 mg/dL (7-18) Creatinine 0.5 MG/DL (0.55-1.30) L Estimat Glomerular Filtration Rate mL/min (>60) Glucose Level 119 MG/DL (74-106) H Uric Acid 2.1 MG/DL (2.6-7.2) L Calcium Level 7.5 MG/DL (8.5-10.1) L Phosphorus Level 3.0 MG/DL (2.5-4.9) Magnesium Level 1.9 MG/DL (1.8-2.4) Total Bilirubin 0.4 MG/DL (0.2-1.0) Aspartate Amino Transf (AST/SGOT) 21 U/L (15-37) Alanine Aminotransferase (ALT/SGPT) 29 U/L (12-78) Alkaline Phosphatase 90 U/L (46-116) C-Reactive Protein, Quantitative 10.4 mg/dL (0.00-0.90) H Total Protein 4.8 G/DL (6.4-8.2) L Albumin 1.1 G/DL (3.4-5.0) L Globulin 3.7 g/dL Albumin/Globulin Ratio 0.3 (1.0-2.7) L Plan Problems: (1) Decubitus skin ulcer Assessment & Plan: Pt presented on admission with multiple pressure injuries. Violaceous macular rash noted to L shoulder ,Upper L side of back and lateral L chest. L upper ext edematous with scattered petechiae. Category 2 skin tear with 10% flap loss noted to L brachial. Small amt sanguineous exudate noted. Unstageable pressure injury Sacrum . Base of wound noted to have 100% mixed slough.necrosis .Edges semi-detached and erythematous. Surrounding non- blanchable erythema without elevation in skin temp ,or induration. (L)9.5cm x (W )6.5cm. NO odor or exudate noted. Full thickness pressure injury lumbar spine in close proximity to sacral pressure injury.Base of wound pink with scattered biofilm. (L)2cm x (W)1.6cm. (+ ) maceration along borders. Periwound without erythema or induration. DTPI noted to medial L heel (L)3.2cm x (W)4.5cm. Base of fluctuant with delineated erythematous borders. Periwound fluctuant with non-blanchable erythema.Additionally, an area of stable dry eschar noted to posterior L heel(L) 0.6cm x (W)0.8cm DTPI Noted to lateral R heel. Maroon discoloration that is fluctuant within base of wound.(L)2.5cm x (W)1cm. DTPI noted to medial R heel. Base of wound fluctuant and is maroon in colour (L) 1.5cm x (W)1cm. Maroon discoloration without fluctuance or induration noted to lateral R tibia , superior but in close proximity to lateral Malleolus.(L)1.4cm x (W)0.5cm. Tx.Plan: Cleanse skin tear L brachial. (Maintain Versatel Contact layer)Apply Silvasorb Gel. Cover with Optifoam drsg. Change every 7 days and prn. Cleanse Sacral wound with Saline. Apply Therahoney. Apply Moisture Barrier Paste periwound. Cover with Optifoam drsg. Change every 3 days and prn. Cleanse wound Lumbar spine with saline. Apply Therahoney. Apply Cavilon Skin Barrier periwound. Cover with Optifoam drsg. Change every 3 days and prn. Apply Cavilon Skin Barrier to Lateral R tibia, R heel and L heel. Cover each site with Optifoam drsg. Change every 7 days and prn. APM/FERNANDEZ mattress overlay. Reposition at least every 2hours or as tolerated. Off-load heels with pillow. (2) Acute DVT (deep venous thrombosis) (3) HCAP (healthcare-associated pneumonia) (4) UTI (urinary tract infection) (5) Anemia, chronic disease (6) Sepsis Assessment & Plan: leukocytosis on IV Abx trend labs cont abx appreciate ID input (7) Feeding by G-tube Assessment & Plan: DAILY ESTIMATED NEEDS: Needs based on Sepsis, wound 60.5kg 25-35 kcals/kg 7092-4064 total kcals 1.25-2 g protein/kg 76-121 g total protein 25-30 mL/kg 5147-3174 total fluid mLs NUTRITION DIAGNOSIS: 1) Increased kcal and pro needs r/t wound healing as evidenced by pt w/ sacral unstageable wound and L heel DTPI. 2) Swallowing difficulty r/t dysphagia as evidenced by pt w/ Parkinson's dz, GT dependent. ENTERAL NUTRITION RECOMMENDATIONS: Glucerna 1.2 @60ml/hr x24 hrs to provide 1440ml, 1728 kcal, 86g pro, 1159ml free H2O - As medically able, rec to start Glucerna 1.2 @20ml/hr, advance as tolerated 10ml q4-6 hrs to goal. - Flush per MD/ HOB over 30 degrees ADDITIONAL RECOMMENDATIONS: 1) Per SNF: 5'6" ht, 133 lbs wt 2) ELECTROCARDIOGRAPH REPAIRER eval if oral grat is appropriate 3) Wound care: Add YOLI BID via GT + VIT C 250mg BID 4) Hypoglycemics prn/ niss (8) COPD (chronic obstructive pulmonary disease) (9) Alzheimer's dementia (10) Parkinson disease (11) Seizures Andrew Eugene Nov 23, 2018 12:35
--- NOTE | 2018-11-23 15:15 | Nephrology Progress Note ---
Assessment/Plan Problem List: (1) Hyponatremia (2) UTI (urinary tract infection) (3) Anemia, chronic disease (4) Alzheimer's dementia (5) Parkinson disease Assessment Low Na likely due to hypotonic IV solution administration other conditions Pneumonia UTI, has grewal bacteremia sacral decub dementia HTN Sz disorder Parkinsons severe Anemia Plan Trial of lasix and 3% Saline stop HypoTonic IV solution Urine studies Transfused Per orders roberto carlos khalil Subjective ROS Limited/Unobtainable: No Constitutional: Reports: malaise Objective Objective Last 24 Hour Vital Signs Date Time Temp Pulse Resp B/P (MAP) Pulse Ox O2 Delivery O2 Flow Rate FiO2 11/23/18 12:00 99 11/23/18 12:00 97.7 98 8 112/80 (91) 99 11/23/18 12:00 Nasal Cannula 3.0 11/23/18 09:42 97 Nasal Cannula 2.0 28 11/23/18 09:41 92 22 97 Nasal Cannula 2.0 28 11/23/18 08:00 98.1 92 20 129/88 (102) 99 11/23/18 08:00 103 11/23/18 08:00 Nasal Cannula 3.0 11/23/18 04:00 Nasal Cannula 4.0 11/23/18 04:00 96.8 89 20 118/50 (72) 98 11/23/18 03:33 98 11/23/18 00:00 98.1 89 20 113/73 (86) 98 11/23/18 00:00 Nasal Cannula 4.0 11/22/18 23:35 98 11/22/18 20:00 97.5 99 24 129/56 (80) 99 11/22/18 20:00 Nasal Cannula 4.0 11/22/18 19:43 100 Nasal Cannula 2.0 28 11/22/18 19:43 113 20 100 Nasal Cannula 2.0 28 11/22/18 19:35 98 11/22/18 18:03 108 18 89/59 (69) 100 11/22/18 17:00 110 20 115/69 (84) 100 11/22/18 16:00 113 21 113/67 (82) 100 11/22/18 16:00 110 Intake and Output 11/22/18 11/23/18 19:00 07:00 Intake Total 695 ml 1240.000 ml Output Total 390 ml 900 ml Balance 305 ml 340.000 ml Free Water 90 ml 150 ml IV Total 330.000 ml Tube Feeding 605 ml 660 ml Other 100 ml Output Urine Total 390 ml 900 ml Laboratory Tests 11/23/18 04:50: White Blood Count 11.3H, Red Blood Count 2.83L, Hemoglobin 9.0L, Hematocrit 26.5L, Mean Corpuscular Volume 94, Mean Corpuscular Hemoglobin 31.9H, Mean Corpuscular Hemoglobin Concent 33.9, Red Cell Distribution Width 17.4H, Platelet Count 219, Mean Platelet Volume 4.3L, Neutrophils (%) (Auto) , Lymphocytes (%) (Auto) , Monocytes (%) (Auto) , Eosinophils (%) (Auto) , Basophils (%) (Auto) , Differential Total Cells Counted 100, Neutrophils % ( Manual) 84H, Lymphocytes % (Manual) 6L, Monocytes % (Manual) 10, Eosinophils % ( Manual) 0, Basophils % (Manual) 0, Band Neutrophils 0, Platelet Estimate Adequate, Platelet Morphology Normal, Anisocytosis 1+, Sodium Level 131L, Potassium Level 4.0, Chloride Level 100, Carbon Dioxide Level 24, Anion Gap 7, Blood Urea Nitrogen 10, Creatinine 0.5L, Estimat Glomerular Filtration Rate , Glucose Level 119H, Uric Acid 2.1L, Calcium Level 7.5L, Phosphorus Level 3.0, Magnesium Level 1.9, Total Bilirubin 0.4, Aspartate Amino Transf (AST/SGOT) 21, Alanine Aminotransferase (ALT/SGPT) 29, Alkaline Phosphatase 90, C-Reactive Protein, Quantitative 10.4H, Total Protein 4.8L, Albumin 1.1L, Globulin 3.7, Albumin/Globulin Ratio 0.3L Height (Feet): 5 Height (Inches): 7.00 Weight (Pounds): 161 General Appearance: no apparent distress Objective no change Kendall Trinidad MD Nov 23, 2018 15:15
--- NOTE | 2018-11-23 15:45 | Progress Note ---
DATE: 11/23/2018 SUBJECTIVE: This is a 73-year-old male patient with sepsis and pneumonia. He is still confused, disorganized, and altered mental status. Mood is labile, depressed, and anxious. That is why his attending has requested daily psychiatric consultation. MENTAL STATUS EXAMINATION: A 73-year-old male. Appearance is disheveled. Attitude, irritable and agitated. Affect, restricted. Intellect, poor. Mood, depressed and anxious. Motor activity, psychomotor agitation. Attention span is poor. Orientation x2. Speech is pressured. Insight and judgment is poor. DIAGNOSIS: Major depressive disorder, mild, recurrent with psychotic features, rule out dementia with psychosis. PLAN: Plan for this patient is to treat him with a medication regimen consisting of Ativan 1 mg every 6 hours p.r.n., Remeron 15 mg per G-tube daily, and Aricept 10 mg per G-tube daily. Provided him with 20 minutes of reality-based psychotherapy. Chart reviewed. Discussed with the staff. Laith Mason M.D. DR: ELLYN JOB#: [id number] CC:
--- NOTE | 2018-11-23 15:52 | Hematology/Onc Progress Note ---
Assessment/Plan Assessment/Plan Assessment and Recs: # Acute right leg DVT. Heparin drip DCed for rectal bleed. --> IVC filter pending at this time --> IVC filter can not be done, since radiology thinks it is not an emergency and pt can't consent. --> agree with need for this given coagulant contraindication --> after ivcf placed and if h/h stable, may consider anticaogulation if not bleeding # Anemia due to GI Bleed, other causes exist, multifactorial --> Anemia workup has been reviewed, FERRITIN 831 --> No evidence of hemolysis is noted, peripheral smear has been reviewed. --> Hgb goal >7. Transfuse prn. --> Epogen or iron at this time is not particularly indicated --> Medications have been reviewed --> low threshold for gi evaluation in case has occult +--> endoscopy and colo pending --> hgb trend: 7.4-->9.0 --> Blood tx: 1 unit 11/19, # Leukocytosis due to sepsis. --> Monitor for improvement --> urine and blood cultures are both positive, mrsa positive --> IV abx per id # Sinus tach due to anemia and sepsis and beta danya withdrawal as was on Metoprolol 12.5 bid at [facility] --> per cards recs # Hypertension. Hold Metoprolol as BP is 90s. --> cloniditon per cards # S/P PEG The timing of this note does not necessarily reflect the time of the patient was seen. GREATLY APPRECIATE CONSULTATION. Subjective Allergies: Coded Allergies: No Known Allergies (Unverified , 11/18/18) Subjective 11/20: Colonoscopy for today. S/P 1 unit prbc. 11/21: Pt awake and nonverbal. Hgb at 7.4, blood tx ordered. 11/23: Pt no acute respiratory distress. CXR Increased bilateral lower lobe atelectasis or airspace consolidation. Underlying pneumonia may be present. Small bilateral pleural effusions. Objective Objective Current Medications Medications (Trade) Dose Ordered Sig/Pauline Route PRN Reason Start Time Stop Time Status Last Admin Dose Admin Acetaminophen (Tylenol) 650 mg Q4H PRN GT T>100.5 11/22/18 18:55 12/22/18 18:54 Albuterol/ Ipratropium (Albuterol/ Ipratropium) 3 ml Q4H PRN HHN Shortness of Breath 11/22/18 18:56 11/27/18 18:55 Carbidopa/Levodopa (Sinemet 25/100) 1 tab THREE TIMES A DAY GT 11/23/18 09:00 12/18/18 18:29 11/23/18 12:13 Clonidine HCl (Catapres Tab) 0.1 mg Q4H PRN GT sbp>170mmHg 11/22/18 18:55 12/22/18 18:54 Dextrose (Dextrose 50%) 25 ml Q30M PRN IV Hypoglycemia 11/22/18 19:15 12/18/18 07:44 Dextrose (Dextrose 50%) 50 ml Q30M PRN IV Hypoglycemia 11/22/18 19:15 12/18/18 07:44 Donepezil HCl (Aricept) 10 mg DAILY GT 11/23/18 09:00 12/18/18 08:59 11/23/18 09:31 Furosemide (Lasix) 10 mg EVERY 6 HOURS IV 11/23/18 15:30 12/23/18 15:29 11/23/18 15:44 Lorazepam (Ativan) 1 mg Q6H PRN GT For Anxiety 11/22/18 18:56 11/29/18 18:55 Mirtazapine (Remeron) 15 mg BEDTIME GT 11/22/18 21:00 12/18/18 20:59 11/22/18 22:03 Morphine Sulfate (Morphine Sulfate) 2 mg Q4H PRN IVP Severe Pain (Pain Scale 7-10) 11/22/18 18:56 11/29/18 18:55 Ondansetron HCl (Zofran) 4 mg Q6H PRN IVP Nausea & Vomiting 11/22/18 18:56 12/22/18 18:55 Piperacillin Sod/ Tazobactam Sod 3.375 gm/Sodium Chloride 110 ml @ 27.5 mls/hr EVERY 8 HOURS IVPB 11/23/18 16:00 11/28/18 15:59 Polyethylene Glycol (Miralax) 17 gm DAILYPRN PRN ORAL Constipation 11/22/18 18:57 12/22/18 18:56 Sodium Chloride 500 ml @ 30 mls/hr ONCE ONCE IV 6/30/19 16:30 11/24/18 09:09 Trimethoprim/ Sulfamethoxazole (Bactrim-DS) 20 ml Q12HR GT 11/22/18 21:00 11/27/18 11:36 11/23/18 09:30 Vancomycin HCl (Vanco rx to dose) 1 ea DAILY PRN MISC Per rx protocol 11/23/18 09:00 12/22/18 08:59 Vancomycin HCl 1 gm/Dextrose 275 ml @ 183.708 mls/hr Q12HR@1100,2300 IVPB 11/22/18 23:00 11/24/18 22:59 11/23/18 11:00 Last 24 Hour Vital Signs Date Time Temp Pulse Resp B/P (MAP) Pulse Ox O2 Delivery O2 Flow Rate FiO2 11/23/18 12:00 99 11/23/18 12:00 97.7 98 8 112/80 (91) 99 11/23/18 12:00 Nasal Cannula 3.0 11/23/18 09:42 97 Nasal Cannula 2.0 28 11/23/18 09:41 92 22 97 Nasal Cannula 2.0 28 11/23/18 08:00 98.1 92 20 129/88 (102) 99 11/23/18 08:00 103 11/23/18 08:00 Nasal Cannula 3.0 11/23/18 04:00 Nasal Cannula 4.0 11/23/18 04:00 96.8 89 20 118/50 (72) 98 11/23/18 03:33 98 11/23/18 00:00 98.1 89 20 113/73 (86) 98 11/23/18 00:00 Nasal Cannula 4.0 11/22/18 23:35 98 11/22/18 20:00 97.5 99 24 129/56 (80) 99 11/22/18 20:00 Nasal Cannula 4.0 11/22/18 19:43 100 Nasal Cannula 2.0 28 11/22/18 19:43 113 20 100 Nasal Cannula 2.0 28 11/22/18 19:35 98 11/22/18 18:03 108 18 89/59 (69) 100 11/22/18 17:00 110 20 115/69 (84) 100 11/22/18 16:00 113 21 113/67 (82) 100 11/22/18 16:00 110 11/22/18 15:00 117 17 92/47 (62) 95 11/22/18 14:00 98.7 111 17 92/47 (62) 95 11/22/18 13:00 109 19 96/60 (72) 99 11/22/18 13:00 109 19 96/60 (72) 99 11/22/18 12:00 123 11/22/18 12:00 103 17 96/60 (72) 100 11/22/18 11:00 107 17 112/60 (77) 100 11/22/18 10:00 103 17 108/62 (77) 100 11/22/18 09:30 98 17 107/66 (80) 100 11/22/18 09:00 Nasal Cannula 4.0 11/22/18 08:45 99.3 105 22 92/59 (70) 98 11/22/18 08:00 105 11/22/18 08:00 99.3 105 22 92/59 (70) 98 11/22/18 04:00 99.4 108 20 100/61 (74) 97 11/22/18 04:00 115 11/22/18 00:00 98.4 105 20 119/69 (86) 100 11/22/18 00:00 106 11/21/18 21:00 Nasal Cannula 2.0 11/21/18 20:00 109 11/21/18 20:00 112 18 98 Nasal Cannula 2.0 28 11/21/18 20:00 98.7 111 20 104/65 (78) 100 11/21/18 19:30 98 Nasal Cannula 2.0 28 11/21/18 16:15 112 18 129/77 (94) 99 11/21/18 16:10 113 18 135/72 (93) 99 11/21/18 16:05 118 18 128/69 (88) 99 11/21/18 16:00 139 Intake and Output 11/22/18 11/23/18 19:00 07:00 Intake Total 695 ml 1240.000 ml Output Total 390 ml 900 ml Balance 305 ml 340.000 ml Free Water 90 ml 150 ml IV Total 330.000 ml Tube Feeding 605 ml 660 ml Other 100 ml Output Urine Total 390 ml 900 ml Labs Test 11/21/18 07:50 11/21/18 14:00 11/22/18 07:05 11/22/18 07:53 White Blood Count 11.8 K/UL (4.8-10.8) Red Blood Count 2.43 M/UL (4.70-6.10) Hemoglobin 7.4 G/DL (14.2-18.0) Hematocrit 21.9 % (42.0-52.0) Mean Corpuscular Volume 90 FL (80-99) Mean Corpuscular Hemoglobin 30.6 PG (27.0-31.0) Mean Corpuscular Hemoglobin Concent 33.9 G/DL (32.0-36.0) Red Cell Distribution Width 18.6 % (11.6-14.8) Platelet Count 209 K/UL (150-450) Mean Platelet Volume 4.9 FL (6.5-10.1) Neutrophils (%) (Auto) % (45.0-75.0) Lymphocytes (%) (Auto) % (20.0-45.0) Monocytes (%) (Auto) % (1.0-10.0) Eosinophils (%) (Auto) % (0.0-3.0) Basophils (%) (Auto) % (0.0-2.0) Differential Total Cells Counted 100 Neutrophils % (Manual) 80 % (45-75) Lymphocytes % (Manual) 4 % (20-45) Monocytes % (Manual) 8 % (1-10) Eosinophils % (Manual) 1 % (0-3) Basophils % (Manual) 0 % (0-2) Band Neutrophils 7 % (0-8) Platelet Estimate Adequate Platelet Morphology Normal Hypochromasia 1+ Anisocytosis 1+ Reticulocyte Count 3.1 % (0.5-2.0) Sodium Level 131 MMOL/L (136-145) 132 MMOL/L (136-145) Potassium Level 3.8 MMOL/L (3.5-5.1) 3.7 MMOL/L (3.5-5.1) Chloride Level 100 MMOL/L (98-107) 101 MMOL/L (98-107) Carbon Dioxide Level 23 MMOL/L (21-32) 22 MMOL/L (21-32) Anion Gap mmol/L (5-15) 9 mmol/L (5-15) Blood Urea Nitrogen 11 mg/dL (7-18) 10 mg/dL (7-18) Creatinine 0.4 MG/DL (0.55-1.30) 0.5 MG/DL (0.55-1.30) Estimat Glomerular Filtration Rate mL/min (>60) mL/min (>60) Glucose Level 106 MG/DL (74-106) 120 MG/DL (74-106) Calcium Level 7.9 MG/DL (8.5-10.1) 7.5 MG/DL (8.5-10.1) Phosphorus Level 2.9 MG/DL (2.5-4.9) 3.2 MG/DL (2.5-4.9) Magnesium Level 1.7 MG/DL (1.8-2.4) 1.7 MG/DL (1.8-2.4) Total Bilirubin 0.6 MG/DL (0.2-1.0) 0.6 MG/DL (0.2-1.0) Aspartate Amino Transf (AST/SGOT) 18 U/L (15-37) 21 U/L (15-37) Alanine Aminotransferase (ALT/SGPT) 24 U/L (12-78) 29 U/L (12-78) Alkaline Phosphatase 82 U/L (46-116) 90 U/L (46-116) Lactate Dehydrogenase 246 U/L (81-234) Total Protein 4.7 G/DL (6.4-8.2) 4.7 G/DL (6.4-8.2) Albumin 1.1 G/DL (3.4-5.0) 1.0 G/DL (3.4-5.0) Globulin 3.6 g/dL 3.7 g/dL Albumin/Globulin Ratio 0.3 (1.0-2.7) 0.3 (1.0-2.7) Vancomycin Level Trough 16.8 ug/mL (5.0-12.0) Erythrocyte Sedimentation Rate 112 MM/HR (0-20) Osmolality 271 mOsm/kg (297-317) Uric Acid 2.2 MG/DL (2.6-7.2) Gamma Glutamyl Transpeptidase 36 U/L (5-85) C-Reactive Protein, Quantitative 11.8 mg/dL (0.00-0.90) Pro-B-Type Natriuretic Peptide 740 pg/mL (0-125) Triglycerides Level 111 MG/DL (30-150) Cholesterol Level 119 MG/DL (< 200) LDL Cholesterol 86 mg/dL (<100) HDL Cholesterol 17 MG/DL (40-60) Cholesterol/HDL Ratio 7.0 (3.3-4.4) Thyroid Stimulating Hormone (TSH) 3.747 uiU/mL (0.358-3.740) Arterial Blood pH 7.513 (7.350-7.450) Arterial Blood Partial Pressure CO2 27.5 mmHg (35.0-45.0) Arterial Blood Partial Pressure O2 96.4 mmHg (75.0-100.0) Arterial Blood HCO3 21.6 mmol/L (22.0-26.0) Arterial Blood Oxygen Saturation 97.1 % (95-100) Arterial Blood Base Excess -0.7 (-2-2) Blake Test Positive Test 11/22/18 09:15 11/23/18 04:50 White Blood Count 11.3 K/UL (4.8-10.8) 11.3 K/UL (4.8-10.8) Red Blood Count 2.81 M/UL (4.70-6.10) 2.83 M/UL (4.70-6.10) Hemoglobin 8.6 G/DL (14.2-18.0) 9.0 G/DL (14.2-18.0) Hematocrit 26.1 % (42.0-52.0) 26.5 % (42.0-52.0) Mean Corpuscular Volume 93 FL (80-99) 94 FL (80-99) Mean Corpuscular Hemoglobin 30.7 PG (27.0-31.0) 31.9 PG (27.0-31.0) Mean Corpuscular Hemoglobin Concent 33.0 G/DL (32.0-36.0) 33.9 G/DL (32.0-36.0) Red Cell Distribution Width 17.4 % (11.6-14.8) 17.4 % (11.6-14.8) Platelet Count 268 K/UL (150-450) 219 K/UL (150-450) Mean Platelet Volume 5.2 FL (6.5-10.1) 4.3 FL (6.5-10.1) Neutrophils (%) (Auto) % (45.0-75.0) % (45.0-75.0) Lymphocytes (%) (Auto) % (20.0-45.0) % (20.0-45.0) Monocytes (%) (Auto) % (1.0-10.0) % (1.0-10.0) Eosinophils (%) (Auto) % (0.0-3.0) % (0.0-3.0) Basophils (%) (Auto) % (0.0-2.0) % (0.0-2.0) Differential Total Cells Counted 100 100 Neutrophils % (Manual) 89 % (45-75) 84 % (45-75) Lymphocytes % (Manual) 6 % (20-45) 6 % (20-45) Monocytes % (Manual) 4 % (1-10) 10 % (1-10) Eosinophils % (Manual) 1 % (0-3) 0 % (0-3) Basophils % (Manual) 0 % (0-2) 0 % (0-2) Band Neutrophils 0 % (0-8) 0 % (0-8) Platelet Estimate Adequate Adequate Platelet Morphology Normal Normal Polychromasia 1+ Anisocytosis 1+ 1+ Hemoglobin A1c 5.1 % (4.3-6.0) Sodium Level 131 MMOL/L (136-145) Potassium Level 4.0 MMOL/L (3.5-5.1) Chloride Level 100 MMOL/L (98-107) Carbon Dioxide Level 24 MMOL/L (21-32) Anion Gap 7 mmol/L (5-15) Blood Urea Nitrogen 10 mg/dL (7-18) Creatinine 0.5 MG/DL (0.55-1.30) Estimat Glomerular Filtration Rate mL/min (>60) Glucose Level 119 MG/DL (74-106) Uric Acid 2.1 MG/DL (2.6-7.2) Calcium Level 7.5 MG/DL (8.5-10.1) Phosphorus Level 3.0 MG/DL (2.5-4.9) Magnesium Level 1.9 MG/DL (1.8-2.4) Total Bilirubin 0.4 MG/DL (0.2-1.0) Aspartate Amino Transf (AST/SGOT) 21 U/L (15-37) Alanine Aminotransferase (ALT/SGPT) 29 U/L (12-78) Alkaline Phosphatase 90 U/L (46-116) C-Reactive Protein, Quantitative 10.4 mg/dL (0.00-0.90) Total Protein 4.8 G/DL (6.4-8.2) Albumin 1.1 G/DL (3.4-5.0) Globulin 3.7 g/dL Albumin/Globulin Ratio 0.3 (1.0-2.7) Height (Feet): 5 Height (Inches): 7.00 Weight (Pounds): 161 Objective PE General Appearance: WD/WN Lines, tubes and drains: central line HEENT: normocephalic, atraumatic Neck: non-tender, normal alignment Breasts: no masses Cardiovascular/Chest: normal peripheral pulses, normal rate, regular rhythm Abdomen: normal bowel sounds, non tender ++ peg Genitourinary/Rectal: normal genital exam, heme negative stool Extremities: normal range of motion Skin Exam: normal pigmentation Neurologic: receiving coordinator II-XII grossly normal Avery Giang MD Nov 23, 2018 15:52
[2018-11-23 16:00] VITALS: BP 125/77
[2018-11-23] MEDS: Zosyn 3.375gm q8h **Extended infusion IVPB SCH ×4 (16:16→23:05)
[2018-11-23] MEDS ORDERED: NaCl 3% 500ml 500 ML IV ONE (16:30)
--- NOTE | 2018-11-23 19:00 | NUR ---
HAND-OFF: Report given to MONA Cole. Patient in stable condition.
--- NOTE | 2018-11-23 19:05 | NUR ---
NURSE NOTES: Received patient from MONA Bishop. Will continue plan of care.
[2018-11-23 20:00] VITALS: BP 104/61
[2018-11-24] VITALS: BP 113/60
[2018-11-24 04:00] VITALS: BP 118/60
[2018-11-24] MEDS: Zosyn 3.375gm q8h **Extended infusion IVPB SCH ×6 (05:10→21:42)
[2018-11-24 07:06] LABS: HEMATOCRIT 26.6 % (42.0-52.0); MEAN CORPUSCULAR VOLUME 93 FL (80-99); PLATELET COUNT 293 K/UL (150-450); RED BLOOD COUNT 2.85 M/UL (4.70-6.10); WHITE BLOOD COUNT 11.7 K/UL (4.8-10.8)
[2018-11-24 07:12] LABS: ALANINE AMINOTRANSFERASE 32 U/L (12-78); ALBUMIN 1.2 G/DL (3.4-5.0); ALBUMIN/GLOBULIN RATIO 0.3 (1.0-2.7); ALKALINE PHOSPHATASE 91 U/L (46-116); ANION GAP 7 mmol/L (5-15); ASPARTATE AMINO TRANSFERASE 17 U/L (15-37); BILIRUBIN,TOTAL 0.5 MG/DL (0.2-1.0); BLOOD UREA NITROGEN 11 mg/dL (7-18); CALCIUM 7.7 MG/DL (8.5-10.1); CARBON DIOXIDE 26 MMOL/L (21-32); CHLORIDE 101 MMOL/L (98-107); CREATININE 0.6 MG/DL (0.55-1.30); POTASSIUM 3.6 MMOL/L (3.5-5.1); SODIUM 134 MMOL/L (136-145)
[2018-11-24 08:00] VITALS: BP 97/53
--- NOTE | 2018-11-24 08:15 | NUR ---
NURSE NOTES: received pt in the bed, nonverbal, vital signs stable, no SOB, no co pain,skin warm and dry to touch, dressing dry and intact on sacral area, tolerate GT feeding well, both arm edema, Bradley catheter with yellow urine, bed in low position, HOB elevated.
--- NOTE | 2018-11-24 08:41 | General Progress Note ---
Assessment/Plan Problem List: (1) Acute DVT (deep venous thrombosis) ICD Codes: I82.409 - Acute embolism and thrombosis of unspecified deep veins of unspecified lower extremity SNOMED: 873765746860372 (2) UTI (urinary tract infection) ICD Codes: N39.0 - Urinary tract infection, site not specified SNOMED: 73148729, 053837659 Qualifiers: Qualified Codes: N30.00 - Acute cystitis without hematuria (3) Anemia, chronic disease ICD Codes: D63.8 - Anemia in other chronic diseases classified elsewhere SNOMED: 543555351, 651271185 (4) Parkinson disease ICD Codes: G20 - Parkinson's disease SNOMED: 37349774 (5) Alzheimer's dementia ICD Codes: G30.9 - Alzheimer's disease, unspecified; F02.80 - Dementia in other diseases classified elsewhere without behavioral disturbance SNOMED: 77690494 (6) COPD (chronic obstructive pulmonary disease) ICD Codes: J44.9 - Chronic obstructive pulmonary disease, unspecified SNOMED: 73705719 Status: stable, progressing Assessment/Plan: o2 pulm tx abx pt diet heme f/u cbc bmp am aru eval Subjective Constitutional: Reports: weakness Allergies: Coded Allergies: No Known Allergies (Unverified , 11/18/18) All Systems: reviewed and negative except above Subjective o2nc sleepy Objective Last 24 Hour Vital Signs Date Time Temp Pulse Resp B/P (MAP) Pulse Ox O2 Delivery O2 Flow Rate FiO2 11/24/18 08:00 97.8 97 20 97/53 (68) 100 11/24/18 08:00 Nasal Cannula 3.0 11/24/18 04:00 97.7 92 20 118/60 (79) 100 11/24/18 04:00 Nasal Cannula 3.0 11/24/18 03:26 119 11/24/18 00:00 113 11/24/18 00:00 97.7 102 20 113/60 (77) 100 11/24/18 00:00 Nasal Cannula 3.0 11/23/18 20:00 97.5 101 20 104/61 (75) 100 11/23/18 20:00 Nasal Cannula 3.0 11/23/18 19:29 117 11/23/18 18:59 94 Nasal Cannula 2.0 28 11/23/18 18:58 89 18 94 Nasal Cannula 2.0 28 11/23/18 16:00 98.2 89 18 125/77 (93) 100 11/23/18 16:00 Nasal Cannula 3.0 11/23/18 15:10 98 11/23/18 12:00 99 11/23/18 12:00 97.7 98 18 112/80 (91) 99 11/23/18 12:00 Nasal Cannula 3.0 11/23/18 09:42 97 Nasal Cannula 2.0 28 11/23/18 09:41 92 22 97 Nasal Cannula 2.0 28 Intake and Output 11/23/18 11/24/18 19:00 07:00 Intake Total 1245.41699 ml 1707.208 ml Output Total 1100 ml 1800 ml Balance 145.32816 ml -92.792 ml Free Water 105 ml 100 ml IV Total 480.14179 ml 847.208 ml Tube Feeding 660 ml 660 ml Other 100 ml Output Urine Total 1100 ml 1800 ml Laboratory Tests 11/24/18 05:35: White Blood Count 11.7H, Red Blood Count 2.85L, Hemoglobin 9.0L, Hematocrit 26.6L, Mean Corpuscular Volume 93, Mean Corpuscular Hemoglobin 31.6H, Mean Corpuscular Hemoglobin Concent 33.8, Red Cell Distribution Width 17.0H, Platelet Count 293, Mean Platelet Volume 5.1L, Neutrophils (%) (Auto) , Lymphocytes (%) (Auto) , Monocytes (%) (Auto) , Eosinophils (%) (Auto) , Basophils (%) (Auto) , Differential Total Cells Counted 100, Neutrophils % ( Manual) 84H, Lymphocytes % (Manual) 9L, Monocytes % (Manual) 7, Eosinophils % ( Manual) 0, Basophils % (Manual) 0, Band Neutrophils 0, Platelet Estimate Adequate, Platelet Morphology Normal, Hypochromasia 2+, Anisocytosis 1+, Spherocytes 1+, Sodium Level 134L, Potassium Level 3.6, Chloride Level 101, Carbon Dioxide Level 26, Anion Gap 7, Blood Urea Nitrogen 11, Creatinine 0.6, Estimat Glomerular Filtration Rate , Glucose Level 118H, Calcium Level 7.7L, Total Bilirubin 0.5, Aspartate Amino Transf (AST/SGOT) 17, Alanine Aminotransferase (ALT/SGPT) 32, Alkaline Phosphatase 91, Pro-B-Type Natriuretic Peptide 282H, Total Protein 5.2L, Albumin 1.2L, Globulin 4.0, Albumin/Globulin Ratio 0.3L 11/24/18 06:30: Urine Random Sodium 117H Height (Feet): 5 Height (Inches): 7.00 Weight (Pounds): 161 General Appearance: lethargic EENT: normal ENT inspection Neck: normal alignment Cardiovascular: normal peripheral pulses, normal rate, regular rhythm Respiratory/Chest: chest wall non-tender, lungs clear, normal breath sounds Abdomen: normal bowel sounds, non tender, no organomegaly Extremities: normal inspection Edema: no edema noted Arm (L), no edema noted Arm (R), no edema noted Leg (L), no edema noted Leg (R), no edema noted Pedal (L), no edema noted Pedal (R), no edema noted Generalized Neurologic: motor weakness Skin: normal pigmentation, warm/dry Abdullahi Gonzalez DO Nov 24, 2018 08:41
--- NOTE | 2018-11-24 08:46 | NUR ---
RADIOLOGY DEPT., CHEST X-RAY DONE.-P.DYE
[2018-11-24] MEDS: Donepezil 10mg tab GT SCH (08:52)
[2018-11-24] MEDS: Levodopa/Carbidopa 25/100 tab GT SCH ×3 (08:53→18:27)
[2018-11-24] MEDS: Bactrim Susp 20ml GT SCH ×2 (08:53→20:01)
[2018-11-24] MEDS: Vancomycin 1 GM in D5W 275 ML IVPB SCH ×2 (10:53→23:08)
--- NOTE | 2018-11-24 11:20 | GI Progress Note ---
Assessment/Plan Problems: (1) Parkinson disease ICD Codes: G20 - Parkinson's disease SNOMED: 42570775 (2) Alzheimer's dementia ICD Codes: G30.9 - Alzheimer's disease, unspecified; F02.80 - Dementia in other diseases classified elsewhere without behavioral disturbance SNOMED: 11707707 (3) Feeding by G-tube ICD Codes: Z93.1 - Gastrostomy status SNOMED: 439981355, 355347106, 610919163 (4) Anemia, chronic disease ICD Codes: D63.8 - Anemia in other chronic diseases classified elsewhere SNOMED: 055429375, 729806662 Status: unchanged Status Narrative Discussed with Dr. Dallas. Assessment/Plan s/p colonoscopy SUMMARY OF FINDINGS: 1. Fair colonic prep. 2. Diverticulosis most probably the source of bleeding. 3. No evidence of any acute bleeding at this time. 4. Internal hemorrhoids. RECOMMENDATIONS: 1. Resume G-tube feeding. 2. Okay to anticoagulate from gastrointestinal standpoint at this time given there is no active bleeding. 3. Treat for hemorrhoids if become symptomatic. prn transfusions ppi follow labs The patient was seen and examined at bedside and all new and available data was reviewed in the patients chart. I agree with the above findings, impression and plan. (Patient seen earlier today. Signature stamp does not reflect patient encounter time.). - Deacon Dallas MD Subjective Subjective limited Objective Last 24 Hour Vital Signs Date Time Temp Pulse Resp B/P (MAP) Pulse Ox O2 Delivery O2 Flow Rate FiO2 11/24/18 08:00 97.8 97 20 97/53 (68) 100 11/24/18 08:00 114 11/24/18 08:00 Nasal Cannula 3.0 11/24/18 04:00 97.7 92 20 118/60 (79) 100 11/24/18 04:00 Nasal Cannula 3.0 11/24/18 03:26 119 11/24/18 00:00 113 11/24/18 00:00 97.7 102 20 113/60 (77) 100 11/24/18 00:00 Nasal Cannula 3.0 11/23/18 20:00 97.5 101 20 104/61 (75) 100 11/23/18 20:00 Nasal Cannula 3.0 11/23/18 19:29 117 11/23/18 18:59 94 Nasal Cannula 2.0 28 11/23/18 18:58 89 18 94 Nasal Cannula 2.0 28 11/23/18 16:00 98.2 89 18 125/77 (93) 100 11/23/18 16:00 Nasal Cannula 3.0 11/23/18 15:10 98 11/23/18 12:00 99 11/23/18 12:00 97.7 98 18 112/80 (91) 99 11/23/18 12:00 Nasal Cannula 3.0 Intake and Output 11/23/18 11/24/18 19:00 07:00 Intake Total 1245.89707 ml 1707.208 ml Output Total 1100 ml 1800 ml Balance 145.00276 ml -92.792 ml Free Water 105 ml 100 ml IV Total 480.20350 ml 847.208 ml Tube Feeding 660 ml 660 ml Other 100 ml Output Urine Total 1100 ml 1800 ml Laboratory Tests Test 11/24/18 05:35 11/24/18 06:30 White Blood Count 11.7 K/UL (4.8-10.8) H Red Blood Count 2.85 M/UL (4.70-6.10) L Hemoglobin 9.0 G/DL (14.2-18.0) L Hematocrit 26.6 % (42.0-52.0) L Mean Corpuscular Volume 93 FL (80-99) Mean Corpuscular Hemoglobin 31.6 PG (27.0-31.0) H Mean Corpuscular Hemoglobin Concent 33.8 G/DL (32.0-36.0) Red Cell Distribution Width 17.0 % (11.6-14.8) H Platelet Count 293 K/UL (150-450) Mean Platelet Volume 5.1 FL (6.5-10.1) L Neutrophils (%) (Auto) % (45.0-75.0) Lymphocytes (%) (Auto) % (20.0-45.0) Monocytes (%) (Auto) % (1.0-10.0) Eosinophils (%) (Auto) % (0.0-3.0) Basophils (%) (Auto) % (0.0-2.0) Differential Total Cells Counted 100 Neutrophils % (Manual) 84 % (45-75) H Lymphocytes % (Manual) 9 % (20-45) L Monocytes % (Manual) 7 % (1-10) Eosinophils % (Manual) 0 % (0-3) Basophils % (Manual) 0 % (0-2) Band Neutrophils 0 % (0-8) Platelet Estimate Adequate Platelet Morphology Normal Hypochromasia 2+ Anisocytosis 1+ Spherocytes 1+ Sodium Level 134 MMOL/L (136-145) L Potassium Level 3.6 MMOL/L (3.5-5.1) Chloride Level 101 MMOL/L (98-107) Carbon Dioxide Level 26 MMOL/L (21-32) Anion Gap 7 mmol/L (5-15) Blood Urea Nitrogen 11 mg/dL (7-18) Creatinine 0.6 MG/DL (0.55-1.30) Estimat Glomerular Filtration Rate mL/min (>60) Glucose Level 118 MG/DL (74-106) H Calcium Level 7.7 MG/DL (8.5-10.1) L Total Bilirubin 0.5 MG/DL (0.2-1.0) Aspartate Amino Transf (AST/SGOT) 17 U/L (15-37) Alanine Aminotransferase (ALT/SGPT) 32 U/L (12-78) Alkaline Phosphatase 91 U/L (46-116) Pro-B-Type Natriuretic Peptide 282 pg/mL (0-125) H Total Protein 5.2 G/DL (6.4-8.2) L Albumin 1.2 G/DL (3.4-5.0) L Globulin 4.0 g/dL Albumin/Globulin Ratio 0.3 (1.0-2.7) L Urine Random Sodium 117 mmol/L (20-110) H Height (Feet): 5 Height (Inches): 7.00 Weight (Pounds): 161 General Appearance: WD/WN, no apparent distress, alert Cardiovascular: normal rate Respiratory/Chest: normal breath sounds, no respiratory distress Abdominal Exam: normal bowel sounds, non tender, soft, GT site - c/d/i Extremities: non-tender Sohan Kohli NP Nov 24, 2018 11:20
--- NOTE | 2018-11-24 11:42 | NUR ---
RD ASSESSMENT & RECOMMENDATIONS SEE CARE ACTIVITY FOR COMPLETE ASSESSMENT DAILY ESTIMATED NEEDS: Needs based on Wounds, sepsis 60.5kg 25-35 kcals/kg 3932-4779 total kcals 1.25-2 g protein/kg 76-121 g total protein 25-30 mL/kg 2433-6934 total fluid mLs NUTRITION DIAGNOSIS: 1) Increased kcal and pro needs r/t wound healing as evidenced by pt w/ wounds, including unstageable sacral, full thickness spinal wound, DTPI BL heels. 2) Swallowing difficulty r/t dysphagia as evidenced by pt w/ Parkinsons dz, GT dependent. CURRENT TF:Jevity 1.2 @55ml ENTERAL NUTRITION RECOMMENDATIONS: Glucerna 1.2 @60ml/hr x24 hrs to provide 1440ml, 1728 kcal, 86g pro, 1159ml free H2O - Increase goal rate to 60ml/hr x 24 hrs- meets 100% est kcal/prot needs - Flush per MD/ HOB over 30 degrees ADDITIONAL RECOMMENDATIONS: 1) Per SNF: 5'6" ht, 133 lbs wt 2) IGNITION SPECIALIST eval if oral grat is appropriate 3) Wound care: Add YOLI BID via GT + VIT C 250mg BID 4) Hypoglycemics prn/ niss 5) Monitor lytes closely w/ lasix, replete as needed
[2018-11-24 12:00] VITALS: BP 92/46
--- NOTE | 2018-11-24 12:02 | Pulmonology Progress Note ---
Assessment/Plan Problems: (1) HCAP (healthcare-associated pneumonia) (2) Sepsis (3) Acute DVT (deep venous thrombosis) (4) Seizures (5) COPD (chronic obstructive pulmonary disease) (6) Anemia, chronic disease (7) Feeding by G-tube (8) Parkinson disease (9) Alzheimer's dementia Assessment/Plan heart rate still high IVC filter done colonoscopy continue abx check cultures check electrolytes iv fluids check h/h after transfusion Subjective ROS Limited/Unobtainable: No Constitutional: Reports: no symptoms HEENT: Repors: no symptoms Respiratory: Reports: no symptoms Allergies: Coded Allergies: No Known Allergies (Unverified , 11/18/18) Objective Last 24 Hour Vital Signs Date Time Temp Pulse Resp B/P (MAP) Pulse Ox O2 Delivery O2 Flow Rate FiO2 11/24/18 08:00 97.8 97 20 97/53 (68) 100 11/24/18 08:00 114 11/24/18 08:00 Nasal Cannula 3.0 11/24/18 04:00 97.7 92 20 118/60 (79) 100 11/24/18 04:00 Nasal Cannula 3.0 11/24/18 03:26 119 11/24/18 00:00 113 11/24/18 00:00 97.7 102 20 113/60 (77) 100 11/24/18 00:00 Nasal Cannula 3.0 11/23/18 20:00 97.5 101 20 104/61 (75) 100 11/23/18 20:00 Nasal Cannula 3.0 11/23/18 19:29 117 11/23/18 18:59 94 Nasal Cannula 2.0 28 11/23/18 18:58 89 18 94 Nasal Cannula 2.0 28 11/23/18 16:00 98.2 89 18 125/77 (93) 100 11/23/18 16:00 Nasal Cannula 3.0 11/23/18 15:10 98 Intake and Output 11/23/18 11/24/18 19:00 07:00 Intake Total 1245.15999 ml 1707.208 ml Output Total 1100 ml 1800 ml Balance 145.59148 ml -92.792 ml Free Water 105 ml 100 ml IV Total 480.10029 ml 847.208 ml Tube Feeding 660 ml 660 ml Other 100 ml Output Urine Total 1100 ml 1800 ml General Appearance: WD/WN HEENT: normocephalic, atraumatic Respiratory/Chest: chest wall non-tender, normal breath sounds Cardiovascular: normal peripheral pulses, normal rate, regular rhythm Abdomen: normal bowel sounds, soft, non tender Genitourinary: normal external genitalia Extremities: no cyanosis Skin: no rash 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 Lymphatic: no neck adenopathy Musculoskeletal: normal muscle bulk Laboratory Tests 11/24/18 05:35: White Blood Count 11.7H, Red Blood Count 2.85L, Hemoglobin 9.0L, Hematocrit 26.6L, Mean Corpuscular Volume 93, Mean Corpuscular Hemoglobin 31.6H, Mean Corpuscular Hemoglobin Concent 33.8, Red Cell Distribution Width 17.0H, Platelet Count 293, Mean Platelet Volume 5.1L, Neutrophils (%) (Auto) , Lymphocytes (%) (Auto) , Monocytes (%) (Auto) , Eosinophils (%) (Auto) , Basophils (%) (Auto) , Differential Total Cells Counted 100, Neutrophils % ( Manual) 84H, Lymphocytes % (Manual) 9L, Monocytes % (Manual) 7, Eosinophils % ( Manual) 0, Basophils % (Manual) 0, Band Neutrophils 0, Platelet Estimate Adequate, Platelet Morphology Normal, Hypochromasia 2+, Anisocytosis 1+, Spherocytes 1+, Sodium Level 134L, Potassium Level 3.6, Chloride Level 101, Carbon Dioxide Level 26, Anion Gap 7, Blood Urea Nitrogen 11, Creatinine 0.6, Estimat Glomerular Filtration Rate , Glucose Level 118H, Calcium Level 7.7L, Total Bilirubin 0.5, Aspartate Amino Transf (AST/SGOT) 17, Alanine Aminotransferase (ALT/SGPT) 32, Alkaline Phosphatase 91, Pro-B-Type Natriuretic Peptide 282H, Total Protein 5.2L, Albumin 1.2L, Globulin 4.0, Albumin/Globulin Ratio 0.3L 11/24/18 06:30: Urine Random Sodium 117H Current Medications Medications (Trade) Dose Ordered Sig/Pauline Route PRN Reason Start Time Stop Time Status Last Admin Dose Admin Acetaminophen (Tylenol) 650 mg Q4H PRN GT T>100.5 11/22/18 18:55 12/22/18 18:54 Albuterol/ Ipratropium (Albuterol/ Ipratropium) 3 ml Q4H PRN HHN Shortness of Breath 11/22/18 18:56 11/27/18 18:55 Carbidopa/Levodopa (Sinemet 25/100) 1 tab THREE TIMES A DAY GT 11/23/18 09:00 12/18/18 18:29 11/24/18 08:53 Clonidine HCl (Catapres Tab) 0.1 mg Q4H PRN GT sbp>170mmHg 11/22/18 18:55 12/22/18 18:54 Dextrose (Dextrose 50%) 25 ml Q30M PRN IV Hypoglycemia 11/22/18 19:15 12/18/18 07:44 Dextrose (Dextrose 50%) 50 ml Q30M PRN IV Hypoglycemia 11/22/18 19:15 12/18/18 07:44 Donepezil HCl (Aricept) 10 mg DAILY GT 11/23/18 09:00 12/18/18 08:59 11/24/18 08:52 Furosemide (Lasix) 10 mg EVERY 6 HOURS IV 11/23/18 15:30 12/23/18 15:29 11/24/18 05:09 Lorazepam (Ativan) 1 mg Q6H PRN GT For Anxiety 11/22/18 18:56 11/29/18 18:55 Mirtazapine (Remeron) 15 mg BEDTIME GT 11/22/18 21:00 12/18/18 20:59 11/23/18 20:20 Morphine Sulfate (Morphine Sulfate) 2 mg Q4H PRN IVP Severe Pain (Pain Scale 7-10) 11/22/18 18:56 11/29/18 18:55 Ondansetron HCl (Zofran) 4 mg Q6H PRN IVP Nausea & Vomiting 11/22/18 18:56 12/22/18 18:55 Piperacillin Sod/ Tazobactam Sod 3.375 gm/Sodium Chloride 110 ml @ 27.5 mls/hr EVERY 8 HOURS IVPB 11/23/18 16:00 11/28/18 15:59 11/24/18 05:10 Polyethylene Glycol (Miralax) 17 gm DAILYPRN PRN ORAL Constipation 11/22/18 18:57 12/22/18 18:56 Trimethoprim/ Sulfamethoxazole (Bactrim-DS) 20 ml Q12HR GT 11/22/18 21:00 11/27/18 11:36 11/24/18 08:53 Vancomycin HCl (Vanco rx to dose) 1 ea DAILY PRN MISC Per rx protocol 11/23/18 09:00 12/22/18 08:59 Vancomycin HCl 1 gm/Dextrose 275 ml @ 183.708 mls/hr Q12HR@1100,2300 IVPB 11/22/18 23:00 11/29/18 22:59 11/24/18 10:53 David Carrasquillo MD Nov 24, 2018 12:02
--- NOTE | 2018-11-24 12:08 | Diagnostic Imaging Report ---
Indication: Dyspnea Technique: One view of the chest Comparison: 11/22/2018 Findings: Areas of atelectasis and possible patchy infiltrate are seen at the lung bases bilaterally. The heart size is normal. There may be a small right pleural effusion. Findings are unchanged Impression: Unchanged, over 2 days, findings as above.
--- NOTE | 2018-11-24 13:02 | NUR ---
CASE MANAGEMENT:REVIEW 11/24/2018 SI: SEPSIS. PNEUMONIA. ANEMIA~ S/P 1 UNIT T 98.1 HR 102 RR 19 B/P 92/46 SATS 100% ON 3L/NC WBC 11.7 NA 134 GLU 118 CA 7.7 IS: BACTRIM PO Q12 IV VANCOMYCIN Q12 IV CEFEPIME BID IVF@75 mL/HR : SDU STATUS DCP: FROM [facility]
--- NOTE | 2018-11-24 13:03 | Hematology/Onc Progress Note ---
Assessment/Plan Assessment/Plan Assessment and Recs: # Acute right leg DVT. Heparin drip DCed for rectal bleed. s/p IVC FILTER --> agree with need for this given coagulant contraindication --> after ivcf placed and if h/h stable, may consider anticaogulation if not bleeding --> appreciate gi and pulm/cc recs # Anemia due to GI Bleed, other causes exist, multifactorial --> Anemia workup has been reviewed, FERRITIN 831 --> No evidence of hemolysis is noted, peripheral smear has been reviewed. --> Hgb goal >7. Transfuse prn. --> Epogen or iron at this time is not particularly indicated --> Medications have been reviewed --> low threshold for gi evaluation in case has occult +--> endoscopy and colo pending --> hgb trend: 7.4-->9.0-->9 --> Blood tx: 1 unit 11/19, # Leukocytosis due to sepsis. --> Monitor for improvement --> urine and blood cultures are both positive, mrsa positive --> IV abx per id # Sinus tach due to anemia and sepsis and beta danya withdrawal as was on Metoprolol 12.5 bid at [facility] --> per cards recs # Hypertension. Hold Metoprolol as BP is 90s. --> cloniditon per cards # S/P PEG The timing of this note does not necessarily reflect the time of the patient was seen. GREATLY APPRECIATE CONSULTATION. Subjective Constitutional: Denies: no symptoms, chills, fever, malaise, weakness, other Cardiovascular: Denies: no symptoms, chest pain, edema, irregular heart rate, lightheadedness, palpitations, syncope, other Respiratory: Denies: no symptoms, cough, shortness of breath, SOB with excertion, SOB at rest, sputum, wheezing, other Gastrointestinal/Abdominal: Denies: no symptoms, abdomen distended, abdominal pain, black stools, tarry stools, blood in stool, constipated, diarrhea, difficulty swallowing, nausea, poor appetite, poor fluid intake, rectal bleeding , vomiting, other Genitourinary: Denies: no symptoms, burning, discharge, frequency, flank pain, hematuria, incontinence, pain, urgency, other Neurologic/Psychiatric: Denies: no symptoms, anxiety, depressed, emotional problems, headache, numbness, paresthesia, pre-existing deficit, seizure, tingling, tremors, weakness, other Endocrine: Denies: no symptoms, excessive sweating, flushing, intolerance to cold, intolerance to heat, increased hunger, increased thirst, increased urine, unexplained weight gain, unexplained weight loss, other Hematologic/Lymphatic: Denies: no symptoms, anemia, easy bleeding, easy bruising, adenopathy, other Allergies: Coded Allergies: No Known Allergies (Unverified , 11/18/18) Subjective 11/20: Colonoscopy for today. S/P 1 unit prbc. 11/21: Pt awake and nonverbal. Hgb at 7.4, blood tx ordered. 11/23: Pt no acute respiratory distress. CXR Increased bilateral lower lobe atelectasis or airspace consolidation. Underlying pneumonia may be present. Small bilateral pleural effusions. 11/24: no events, no f/c noted, no bleeding, anemia panel reviewed, s/p ivc filter Objective Objective Current Medications Medications (Trade) Dose Ordered Sig/Pauline Route PRN Reason Start Time Stop Time Status Last Admin Dose Admin Acetaminophen (Tylenol) 650 mg Q4H PRN GT T>100.5 11/22/18 18:55 12/22/18 18:54 Albuterol/ Ipratropium (Albuterol/ Ipratropium) 3 ml Q4H PRN HHN Shortness of Breath 11/22/18 18:56 11/27/18 18:55 Carbidopa/Levodopa (Sinemet 25/100) 1 tab THREE TIMES A DAY GT 11/23/18 09:00 12/18/18 18:29 11/24/18 12:22 Clonidine HCl (Catapres Tab) 0.1 mg Q4H PRN GT sbp>170mmHg 11/22/18 18:55 12/22/18 18:54 Dextrose (Dextrose 50%) 25 ml Q30M PRN IV Hypoglycemia 11/22/18 19:15 12/18/18 07:44 Dextrose (Dextrose 50%) 50 ml Q30M PRN IV Hypoglycemia 11/22/18 19:15 12/18/18 07:44 Donepezil HCl (Aricept) 10 mg DAILY GT 11/23/18 09:00 12/18/18 08:59 11/24/18 08:52 Furosemide (Lasix) 10 mg EVERY 6 HOURS IV 11/23/18 15:30 12/23/18 15:29 11/24/18 12:22 Lorazepam (Ativan) 1 mg Q6H PRN GT For Anxiety 11/22/18 18:56 11/29/18 18:55 Mirtazapine (Remeron) 15 mg BEDTIME GT 11/22/18 21:00 12/18/18 20:59 11/23/18 20:20 Morphine Sulfate (Morphine Sulfate) 2 mg Q4H PRN IVP Severe Pain (Pain Scale 7-10) 11/22/18 18:56 11/29/18 18:55 Ondansetron HCl (Zofran) 4 mg Q6H PRN IVP Nausea & Vomiting 11/22/18 18:56 12/22/18 18:55 Piperacillin Sod/ Tazobactam Sod 3.375 gm/Sodium Chloride 110 ml @ 27.5 mls/hr EVERY 8 HOURS IVPB 11/23/18 16:00 11/28/18 15:59 11/24/18 05:10 Polyethylene Glycol (Miralax) 17 gm DAILYPRN PRN ORAL Constipation 11/22/18 18:57 12/22/18 18:56 Trimethoprim/ Sulfamethoxazole (Bactrim-DS) 20 ml Q12HR GT 11/22/18 21:00 11/27/18 11:36 11/24/18 08:53 Vancomycin HCl (Vanco rx to dose) 1 ea DAILY PRN MISC Per rx protocol 11/23/18 09:00 12/22/18 08:59 Vancomycin HCl 1 gm/Dextrose 275 ml @ 183.708 mls/hr Q12HR@1100,2300 IVPB 11/22/18 23:00 11/29/18 22:59 11/24/18 10:53 Last 24 Hour Vital Signs Date Time Temp Pulse Resp B/P (MAP) Pulse Ox O2 Delivery O2 Flow Rate FiO2 11/24/18 12:00 92 11/24/18 12:00 98.1 102 19 92/46 (61) 100 11/24/18 12:00 Nasal Cannula 3.0 11/24/18 08:00 97.8 97 20 97/53 (68) 100 11/24/18 08:00 114 11/24/18 08:00 Nasal Cannula 3.0 11/24/18 04:00 97.7 92 20 118/60 (79) 100 11/24/18 04:00 Nasal Cannula 3.0 11/24/18 03:26 119 11/24/18 00:00 113 11/24/18 00:00 97.7 102 20 113/60 (77) 100 11/24/18 00:00 Nasal Cannula 3.0 11/23/18 20:00 97.5 101 20 104/61 (75) 100 11/23/18 20:00 Nasal Cannula 3.0 11/23/18 19:29 117 11/23/18 18:59 94 Nasal Cannula 2.0 28 11/23/18 18:58 89 18 94 Nasal Cannula 2.0 28 11/23/18 16:00 98.2 89 18 125/77 (93) 100 11/23/18 16:00 Nasal Cannula 3.0 11/23/18 15:10 98 11/23/18 12:00 99 11/23/18 12:00 97.7 98 18 112/80 (91) 99 11/23/18 12:00 Nasal Cannula 3.0 11/23/18 09:42 97 Nasal Cannula 2.0 28 11/23/18 09:41 92 22 97 Nasal Cannula 2.0 28 11/23/18 08:00 98.1 92 20 129/88 (102) 99 11/23/18 08:00 103 11/23/18 08:00 Nasal Cannula 3.0 11/23/18 04:00 Nasal Cannula 4.0 11/23/18 04:00 96.8 89 20 118/50 (72) 98 11/23/18 03:33 98 11/23/18 00:00 98.1 89 20 113/73 (86) 98 11/23/18 00:00 Nasal Cannula 4.0 11/22/18 23:35 98 11/22/18 20:00 97.5 99 24 129/56 (80) 99 11/22/18 20:00 Nasal Cannula 4.0 11/22/18 19:43 100 Nasal Cannula 2.0 28 11/22/18 19:43 113 20 100 Nasal Cannula 2.0 28 11/22/18 19:35 98 11/22/18 18:03 108 18 89/59 (69) 100 11/22/18 17:00 110 20 115/69 (84) 100 11/22/18 16:00 113 21 113/67 (82) 100 11/22/18 16:00 110 11/22/18 15:00 117 17 92/47 (62) 95 11/22/18 14:00 98.7 111 17 92/47 (62) 95 Intake and Output 11/23/18 11/24/18 19:00 07:00 Intake Total 1245.13849 ml 1707.208 ml Output Total 1100 ml 1800 ml Balance 145.34999 ml -92.792 ml Free Water 105 ml 100 ml IV Total 480.25803 ml 847.208 ml Tube Feeding 660 ml 660 ml Other 100 ml Output Urine Total 1100 ml 1800 ml Labs Test 11/21/18 14:00 11/22/18 07:05 11/22/18 07:53 11/22/18 09:15 Erythrocyte Sedimentation Rate 112 MM/HR (0-20) Sodium Level 132 MMOL/L (136-145) Potassium Level 3.7 MMOL/L (3.5-5.1) Chloride Level 101 MMOL/L (98-107) Carbon Dioxide Level 22 MMOL/L (21-32) Anion Gap 9 mmol/L (5-15) Blood Urea Nitrogen 10 mg/dL (7-18) Creatinine 0.5 MG/DL (0.55-1.30) Estimat Glomerular Filtration Rate mL/min (>60) Glucose Level 120 MG/DL (74-106) Osmolality 271 mOsm/kg (297-317) Uric Acid 2.2 MG/DL (2.6-7.2) Calcium Level 7.5 MG/DL (8.5-10.1) Phosphorus Level 3.2 MG/DL (2.5-4.9) Magnesium Level 1.7 MG/DL (1.8-2.4) Total Bilirubin 0.6 MG/DL (0.2-1.0) Gamma Glutamyl Transpeptidase 36 U/L (5-85) Aspartate Amino Transf (AST/SGOT) 21 U/L (15-37) Alanine Aminotransferase (ALT/SGPT) 29 U/L (12-78) Alkaline Phosphatase 90 U/L (46-116) C-Reactive Protein, Quantitative 11.8 mg/dL (0.00-0.90) Pro-B-Type Natriuretic Peptide 740 pg/mL (0-125) Total Protein 4.7 G/DL (6.4-8.2) Albumin 1.0 G/DL (3.4-5.0) Globulin 3.7 g/dL Albumin/Globulin Ratio 0.3 (1.0-2.7) Triglycerides Level 111 MG/DL (30-150) Cholesterol Level 119 MG/DL (< 200) LDL Cholesterol 86 mg/dL (<100) HDL Cholesterol 17 MG/DL (40-60) Cholesterol/HDL Ratio 7.0 (3.3-4.4) Thyroid Stimulating Hormone (TSH) 3.747 uiU/mL (0.358-3.740) Arterial Blood pH 7.513 (7.350-7.450) Arterial Blood Partial Pressure CO2 27.5 mmHg (35.0-45.0) Arterial Blood Partial Pressure O2 96.4 mmHg (75.0-100.0) Arterial Blood HCO3 21.6 mmol/L (22.0-26.0) Arterial Blood Oxygen Saturation 97.1 % (95-100) Arterial Blood Base Excess -0.7 (-2-2) Blake Test Positive White Blood Count 11.3 K/UL (4.8-10.8) Red Blood Count 2.81 M/UL (4.70-6.10) Hemoglobin 8.6 G/DL (14.2-18.0) Hematocrit 26.1 % (42.0-52.0) Mean Corpuscular Volume 93 FL (80-99) Mean Corpuscular Hemoglobin 30.7 PG (27.0-31.0) Mean Corpuscular Hemoglobin Concent 33.0 G/DL (32.0-36.0) Red Cell Distribution Width 17.4 % (11.6-14.8) Platelet Count 268 K/UL (150-450) Mean Platelet Volume 5.2 FL (6.5-10.1) Neutrophils (%) (Auto) % (45.0-75.0) Lymphocytes (%) (Auto) % (20.0-45.0) Monocytes (%) (Auto) % (1.0-10.0) Eosinophils (%) (Auto) % (0.0-3.0) Basophils (%) (Auto) % (0.0-2.0) Differential Total Cells Counted 100 Neutrophils % (Manual) 89 % (45-75) Lymphocytes % (Manual) 6 % (20-45) Monocytes % (Manual) 4 % (1-10) Eosinophils % (Manual) 1 % (0-3) Basophils % (Manual) 0 % (0-2) Band Neutrophils 0 % (0-8) Platelet Estimate Adequate Platelet Morphology Normal Polychromasia 1+ Anisocytosis 1+ Hemoglobin A1c 5.1 % (4.3-6.0) Test 11/23/18 04:50 11/24/18 05:35 11/24/18 06:30 White Blood Count 11.3 K/UL (4.8-10.8) 11.7 K/UL (4.8-10.8) Red Blood Count 2.83 M/UL (4.70-6.10) 2.85 M/UL (4.70-6.10) Hemoglobin 9.0 G/DL (14.2-18.0) 9.0 G/DL (14.2-18.0) Hematocrit 26.5 % (42.0-52.0) 26.6 % (42.0-52.0) Mean Corpuscular Volume 94 FL (80-99) 93 FL (80-99) Mean Corpuscular Hemoglobin 31.9 PG (27.0-31.0) 31.6 PG (27.0-31.0) Mean Corpuscular Hemoglobin Concent 33.9 G/DL (32.0-36.0) 33.8 G/DL (32.0-36.0) Red Cell Distribution Width 17.4 % (11.6-14.8) 17.0 % (11.6-14.8) Platelet Count 219 K/UL (150-450) 293 K/UL (150-450) Mean Platelet Volume 4.3 FL (6.5-10.1) 5.1 FL (6.5-10.1) Neutrophils (%) (Auto) % (45.0-75.0) % (45.0-75.0) Lymphocytes (%) (Auto) % (20.0-45.0) % (20.0-45.0) Monocytes (%) (Auto) % (1.0-10.0) % (1.0-10.0) Eosinophils (%) (Auto) % (0.0-3.0) % (0.0-3.0) Basophils (%) (Auto) % (0.0-2.0) % (0.0-2.0) Differential Total Cells Counted 100 100 Neutrophils % (Manual) 84 % (45-75) 84 % (45-75) Lymphocytes % (Manual) 6 % (20-45) 9 % (20-45) Monocytes % (Manual) 10 % (1-10) 7 % (1-10) Eosinophils % (Manual) 0 % (0-3) 0 % (0-3) Basophils % (Manual) 0 % (0-2) 0 % (0-2) Band Neutrophils 0 % (0-8) 0 % (0-8) Platelet Estimate Adequate Adequate Platelet Morphology Normal Normal Anisocytosis 1+ 1+ Sodium Level 131 MMOL/L (136-145) 134 MMOL/L (136-145) Potassium Level 4.0 MMOL/L (3.5-5.1) 3.6 MMOL/L (3.5-5.1) Chloride Level 100 MMOL/L (98-107) 101 MMOL/L (98-107) Carbon Dioxide Level 24 MMOL/L (21-32) 26 MMOL/L (21-32) Anion Gap 7 mmol/L (5-15) 7 mmol/L (5-15) Blood Urea Nitrogen 10 mg/dL (7-18) 11 mg/dL (7-18) Creatinine 0.5 MG/DL (0.55-1.30) 0.6 MG/DL (0.55-1.30) Estimat Glomerular Filtration Rate mL/min (>60) mL/min (>60) Glucose Level 119 MG/DL (74-106) 118 MG/DL (74-106) Uric Acid 2.1 MG/DL (2.6-7.2) Calcium Level 7.5 MG/DL (8.5-10.1) 7.7 MG/DL (8.5-10.1) Phosphorus Level 3.0 MG/DL (2.5-4.9) Magnesium Level 1.9 MG/DL (1.8-2.4) Total Bilirubin 0.4 MG/DL (0.2-1.0) 0.5 MG/DL (0.2-1.0) Aspartate Amino Transf (AST/SGOT) 21 U/L (15-37) 17 U/L (15-37) Alanine Aminotransferase (ALT/SGPT) 29 U/L (12-78) 32 U/L (12-78) Alkaline Phosphatase 90 U/L (46-116) 91 U/L (46-116) C-Reactive Protein, Quantitative 10.4 mg/dL (0.00-0.90) Total Protein 4.8 G/DL (6.4-8.2) 5.2 G/DL (6.4-8.2) Albumin 1.1 G/DL (3.4-5.0) 1.2 G/DL (3.4-5.0) Globulin 3.7 g/dL 4.0 g/dL Albumin/Globulin Ratio 0.3 (1.0-2.7) 0.3 (1.0-2.7) Hypochromasia 2+ Spherocytes 1+ Pro-B-Type Natriuretic Peptide 282 pg/mL (0-125) Urine Random Sodium 117 mmol/L (20-110) Height (Feet): 5 Height (Inches): 7.00 Weight (Pounds): 161 Objective PE General Appearance: WD/WN Lines, tubes and drains: central line HEENT: normocephalic, atraumatic Neck: non-tender, normal alignment Breasts: no masses Cardiovascular/Chest: normal peripheral pulses, normal rate, regular rhythm Abdomen: normal bowel sounds, non tender ++ peg Genitourinary/Rectal: normal genital exam, heme negative stool Extremities: normal range of motion Skin Exam: normal pigmentation 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
--- NOTE | 2018-11-24 13:14 | Nephrology Progress Note ---
Assessment/Plan Problem List: (1) Hyponatremia Assessment: Na higher (2) UTI (urinary tract infection) (3) Anemia, chronic disease (4) Alzheimer's dementia (5) Parkinson disease Assessment Low Na likely due to hypotonic IV solution administration other conditions Pneumonia UTI, has greawl bacteremia sacral decub dementia HTN Sz disorder Parkinsons severe Anemia Plan Trial of lasix and 3% Saline stop HypoTonic IV solution Urine studies Transfused Per orders roberto carlos khalil Subjective ROS Limited/Unobtainable: Yes Objective Objective Last 24 Hour Vital Signs Date Time Temp Pulse Resp B/P (MAP) Pulse Ox O2 Delivery O2 Flow Rate FiO2 11/24/18 12:00 92 11/24/18 12:00 98.1 102 19 92/46 (61) 100 11/24/18 12:00 Nasal Cannula 3.0 11/24/18 08:00 97.8 97 20 97/53 (68) 100 11/24/18 08:00 114 11/24/18 08:00 Nasal Cannula 3.0 11/24/18 04:00 97.7 92 20 118/60 (79) 100 11/24/18 04:00 Nasal Cannula 3.0 11/24/18 03:26 119 11/24/18 00:00 113 11/24/18 00:00 97.7 102 20 113/60 (77) 100 11/24/18 00:00 Nasal Cannula 3.0 11/23/18 20:00 97.5 101 20 104/61 (75) 100 11/23/18 20:00 Nasal Cannula 3.0 11/23/18 19:29 117 11/23/18 18:59 94 Nasal Cannula 2.0 28 11/23/18 18:58 89 18 94 Nasal Cannula 2.0 28 11/23/18 16:00 98.2 89 18 125/77 (93) 100 11/23/18 16:00 Nasal Cannula 3.0 11/23/18 15:10 98 Intake and Output 11/23/18 11/24/18 19:00 07:00 Intake Total 1245.07776 ml 1707.208 ml Output Total 1100 ml 1800 ml Balance 145.17312 ml -92.792 ml Free Water 105 ml 100 ml IV Total 480.72642 ml 847.208 ml Tube Feeding 660 ml 660 ml Other 100 ml Output Urine Total 1100 ml 1800 ml Laboratory Tests 11/24/18 05:35: White Blood Count 11.7H, Red Blood Count 2.85L, Hemoglobin 9.0L, Hematocrit 26.6L, Mean Corpuscular Volume 93, Mean Corpuscular Hemoglobin 31.6H, Mean Corpuscular Hemoglobin Concent 33.8, Red Cell Distribution Width 17.0H, Platelet Count 293, Mean Platelet Volume 5.1L, Neutrophils (%) (Auto) , Lymphocytes (%) (Auto) , Monocytes (%) (Auto) , Eosinophils (%) (Auto) , Basophils (%) (Auto) , Differential Total Cells Counted 100, Neutrophils % ( Manual) 84H, Lymphocytes % (Manual) 9L, Monocytes % (Manual) 7, Eosinophils % ( Manual) 0, Basophils % (Manual) 0, Band Neutrophils 0, Platelet Estimate Adequate, Platelet Morphology Normal, Hypochromasia 2+, Anisocytosis 1+, Spherocytes 1+, Sodium Level 134L, Potassium Level 3.6, Chloride Level 101, Carbon Dioxide Level 26, Anion Gap 7, Blood Urea Nitrogen 11, Creatinine 0.6, Estimat Glomerular Filtration Rate , Glucose Level 118H, Calcium Level 7.7L, Total Bilirubin 0.5, Aspartate Amino Transf (AST/SGOT) 17, Alanine Aminotransferase (ALT/SGPT) 32, Alkaline Phosphatase 91, Pro-B-Type Natriuretic Peptide 282H, Total Protein 5.2L, Albumin 1.2L, Globulin 4.0, Albumin/Globulin Ratio 0.3L 11/24/18 06:30: Urine Random Sodium 117H Height (Feet): 5 Height (Inches): 7.00 Weight (Pounds): 161 General Appearance: no apparent distress Cardiovascular: tachycardia Respiratory/Chest: decreased breath sounds Abdomen: distended Objective no change Kendall Trinidad MD Nov 24, 2018 13:14
--- NOTE | 2018-11-24 13:50 | Infectious Diseases Prog Note ---
Assessment/Plan Assessment/Plan Abx: IV Vancomycin 11/18- Cefepime 11/18- Levaquin x 1 11/18 Assessment: Sepsis Pneumonia -CXR: Patchy bilateral infiltrates versus mixed interstitial alveolar edema noted. -sp cx MRSA, MDR P. stuarti (S Amikacin, Zosyn ; I cefepime; S ertapenem) Afebrile Leukocytosis; improving MRSA bacteremia- suspect 2ry to PNA- r/o endocarditis -11/18 Bcx 2/4 MRSA , 1/ S. capitis, Diptheroids (these 2 are contaminants); BCx NTD -2d Echo:limited study (no vegetations) Probable UTI -u/a wbc 10-15, nit neg, leuk +2; ucx MDR ABC (S bactrim, gentamicin) Acute respiratory failure Sacral decubitus ulcer, necrotic, surrounding cellulitis dementia HTN CKD COPD dysphagia s/p Gtube feeding Parkinson disease seizure disorder multiple decubiti wounds care home resident Plan: -Continue empiric IV Vancomycin #7 for MRSA bacteremia and PNA -Continue Zosyn #2/7-10 for MDR Providencia PNA -Cont Bactrim #5/7-10 for probable ABC UTI -11/23 SP Cefepime #6 -11/18 SP Levaquin x1 -f/u cx -Monitor CBC/CMP, temperatures -f/u sp cx, legionella ag urine -GT care -aspiration precautions -wound care per surgical team -f/u repeat Bcx x2 -Recommend FLORINA Thank you for this consultation. Will continue to follow along with you. Discussed with RN and Dr Reis. Subjective Allergies: Coded Allergies: No Known Allergies (Unverified , 11/18/18) Subjective afebrile leukocytosis overall improved Repeat Bcx NTD out of ICU, now on TODD Objective Vital Signs Last 24 Hour Vital Signs Date Time Temp Pulse Resp B/P (MAP) Pulse Ox O2 Delivery O2 Flow Rate FiO2 11/24/18 12:00 92 11/24/18 12:00 98.1 102 19 92/46 (61) 100 11/24/18 12:00 Nasal Cannula 3.0 11/24/18 08:00 97.8 97 20 97/53 (68) 100 11/24/18 08:00 114 11/24/18 08:00 Nasal Cannula 3.0 11/24/18 04:00 97.7 92 20 118/60 (79) 100 11/24/18 04:00 Nasal Cannula 3.0 11/24/18 03:26 119 11/24/18 00:00 113 11/24/18 00:00 97.7 102 20 113/60 (77) 100 11/24/18 00:00 Nasal Cannula 3.0 11/23/18 20:00 97.5 101 20 104/61 (75) 100 11/23/18 20:00 Nasal Cannula 3.0 11/23/18 19:29 117 11/23/18 18:59 94 Nasal Cannula 2.0 28 11/23/18 18:58 89 18 94 Nasal Cannula 2.0 28 11/23/18 16:00 98.2 89 18 125/77 (93) 100 11/23/18 16:00 Nasal Cannula 3.0 11/23/18 15:10 98 Height (Feet): 5 Height (Inches): 7.00 Weight (Pounds): 161 Objective General Appearance: WD/WN, no apparent distress Lines, tubes and drains: central line HEENT: normocephalic, atraumatic Neck: non-tender, normal alignment Cardiovascular/Chest: normal peripheral pulses, normal rate, regular rhythm Abdomen: normal bowel sounds, non tender Extremities: normal range of motion Skin Exam: normal pigmentation 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 normal Laboratory Tests Test 11/24/18 05:35 11/24/18 06:30 White Blood Count 11.7 K/UL (4.8-10.8) H Red Blood Count 2.85 M/UL (4.70-6.10) L Hemoglobin 9.0 G/DL (14.2-18.0) L Hematocrit 26.6 % (42.0-52.0) L Mean Corpuscular Volume 93 FL (80-99) Mean Corpuscular Hemoglobin 31.6 PG (27.0-31.0) H Mean Corpuscular Hemoglobin Concent 33.8 G/DL (32.0-36.0) Red Cell Distribution Width 17.0 % (11.6-14.8) H Platelet Count 293 K/UL (150-450) Mean Platelet Volume 5.1 FL (6.5-10.1) L Neutrophils (%) (Auto) % (45.0-75.0) Lymphocytes (%) (Auto) % (20.0-45.0) Monocytes (%) (Auto) % (1.0-10.0) Eosinophils (%) (Auto) % (0.0-3.0) Basophils (%) (Auto) % (0.0-2.0) Differential Total Cells Counted 100 Neutrophils % (Manual) 84 % (45-75) H Lymphocytes % (Manual) 9 % (20-45) L Monocytes % (Manual) 7 % (1-10) Eosinophils % (Manual) 0 % (0-3) Basophils % (Manual) 0 % (0-2) Band Neutrophils 0 % (0-8) Platelet Estimate Adequate Platelet Morphology Normal Hypochromasia 2+ Anisocytosis 1+ Spherocytes 1+ Sodium Level 134 MMOL/L (136-145) L Potassium Level 3.6 MMOL/L (3.5-5.1) Chloride Level 101 MMOL/L (98-107) Carbon Dioxide Level 26 MMOL/L (21-32) Anion Gap 7 mmol/L (5-15) Blood Urea Nitrogen 11 mg/dL (7-18) Creatinine 0.6 MG/DL (0.55-1.30) Estimat Glomerular Filtration Rate mL/min (>60) Glucose Level 118 MG/DL (74-106) H Calcium Level 7.7 MG/DL (8.5-10.1) L Total Bilirubin 0.5 MG/DL (0.2-1.0) Aspartate Amino Transf (AST/SGOT) 17 U/L (15-37) Alanine Aminotransferase (ALT/SGPT) 32 U/L (12-78) Alkaline Phosphatase 91 U/L (46-116) Pro-B-Type Natriuretic Peptide 282 pg/mL (0-125) H Total Protein 5.2 G/DL (6.4-8.2) L Albumin 1.2 G/DL (3.4-5.0) L Globulin 4.0 g/dL Albumin/Globulin Ratio 0.3 (1.0-2.7) L Urine Random Sodium 117 mmol/L (20-110) H Current Medications Medications (Trade) Dose Ordered Sig/Pauline Route PRN Reason Start Time Stop Time Status Last Admin Dose Admin Acetaminophen (Tylenol) 650 mg Q4H PRN GT T>100.5 11/22/18 18:55 12/22/18 18:54 Albuterol/ Ipratropium (Albuterol/ Ipratropium) 3 ml Q4H PRN HHN Shortness of Breath 11/22/18 18:56 11/27/18 18:55 Carbidopa/Levodopa (Sinemet 25/100) 1 tab THREE TIMES A DAY GT 11/23/18 09:00 12/18/18 18:29 11/24/18 12:22 Clonidine HCl (Catapres Tab) 0.1 mg Q4H PRN GT sbp>170mmHg 11/22/18 18:55 12/22/18 18:54 Dextrose (Dextrose 50%) 25 ml Q30M PRN IV Hypoglycemia 11/22/18 19:15 12/18/18 07:44 Dextrose (Dextrose 50%) 50 ml Q30M PRN IV Hypoglycemia 11/22/18 19:15 12/18/18 07:44 Donepezil HCl (Aricept) 10 mg DAILY GT 11/23/18 09:00 12/18/18 08:59 11/24/18 08:52 Furosemide (Lasix) 10 mg EVERY 6 HOURS IV 11/23/18 15:30 12/23/18 15:29 11/24/18 12:22 Lorazepam (Ativan) 1 mg Q6H PRN GT For Anxiety 11/22/18 18:56 11/29/18 18:55 Mirtazapine (Remeron) 15 mg BEDTIME GT 11/22/18 21:00 12/18/18 20:59 11/23/18 20:20 Morphine Sulfate (Morphine Sulfate) 2 mg Q4H PRN IVP Severe Pain (Pain Scale 7-10) 11/22/18 18:56 11/29/18 18:55 Ondansetron HCl (Zofran) 4 mg Q6H PRN IVP Nausea & Vomiting 11/22/18 18:56 12/22/18 18:55 Piperacillin Sod/ Tazobactam Sod 3.375 gm/Sodium Chloride 110 ml @ 27.5 mls/hr EVERY 8 HOURS IVPB 11/23/18 16:00 11/28/18 15:59 11/24/18 05:10 Polyethylene Glycol (Miralax) 17 gm DAILYPRN PRN ORAL Constipation 11/22/18 18:57 12/22/18 18:56 Sodium Chloride 500 ml @ 30 mls/hr ONCE ONCE IV 11/24/18 14:00 11/25/18 06:39 Trimethoprim/ Sulfamethoxazole (Bactrim-DS) 20 ml Q12HR GT 11/22/18 21:00 11/27/18 11:36 11/24/18 08:53 Vancomycin HCl (Vanco rx to dose) 1 ea DAILY PRN MISC Per rx protocol 11/23/18 09:00 12/22/18 08:59 Vancomycin HCl 1 gm/Dextrose 275 ml @ 183.708 mls/hr Q12HR@1100,2300 IVPB 11/22/18 23:00 11/29/18 22:59 11/24/18 10:53 Neva Yee M.D. Nov 24, 2018 13:50
[2018-11-24] MEDS ORDERED: NaCl 3% 500ml 500 ML IV ONE (14:00)
--- NOTE | 2018-11-24 14:38 | Cardiac Electrophysiology PN ---
Assessment/Plan Assessment/Plan 1. Sinus tach due to anemia and sepsis and beta danya withdrawal ( was on Metoprolol 12.5 bid at [facility]) 2. Hypertension. Echo EF 55% 3. Acute right leg DVT. Heparin drip DCed for rectal bleed.S/P IVC filter 4. Staph aureous bacteremia. On Abx by Dr. Yee who recommended FLORINA and is pending scheduling 5. Parkinsonism. 6. COPD. 7. UTI. 8. Anemia and rectal bleed.S/P Colonoscopy and transfusion 9. Seizure disorder. 10. S/P PEG DW RN Subjective Subjective In sinus tach up to 120s. IVC filter placed. Has Staff Aureus Bacteremia Objective Last 24 Hour Vital Signs Date Time Temp Pulse Resp B/P (MAP) Pulse Ox O2 Delivery O2 Flow Rate FiO2 11/24/18 12:00 92 11/24/18 12:00 98.1 102 19 92/46 (61) 100 11/24/18 12:00 Nasal Cannula 3.0 11/24/18 08:00 97.8 97 20 97/53 (68) 100 11/24/18 08:00 114 11/24/18 08:00 Nasal Cannula 3.0 11/24/18 04:00 97.7 92 20 118/60 (79) 100 11/24/18 04:00 Nasal Cannula 3.0 11/24/18 03:26 119 11/24/18 00:00 113 11/24/18 00:00 97.7 102 20 113/60 (77) 100 11/24/18 00:00 Nasal Cannula 3.0 11/23/18 20:00 97.5 101 20 104/61 (75) 100 11/23/18 20:00 Nasal Cannula 3.0 11/23/18 19:29 117 11/23/18 18:59 94 Nasal Cannula 2.0 28 11/23/18 18:58 89 18 94 Nasal Cannula 2.0 28 11/23/18 16:00 98.2 89 18 125/77 (93) 100 11/23/18 16:00 Nasal Cannula 3.0 11/23/18 15:10 98 Intake and Output 11/23/18 11/24/18 19:00 07:00 Intake Total 1245.21135 ml 1707.208 ml Output Total 1100 ml 1800 ml Balance 145.01819 ml -92.792 ml Free Water 105 ml 100 ml IV Total 480.41467 ml 847.208 ml Tube Feeding 660 ml 660 ml Other 100 ml Output Urine Total 1100 ml 1800 ml Laboratory Tests Test 11/24/18 05:35 11/24/18 06:30 White Blood Count 11.7 K/UL (4.8-10.8) H Red Blood Count 2.85 M/UL (4.70-6.10) L Hemoglobin 9.0 G/DL (14.2-18.0) L Hematocrit 26.6 % (42.0-52.0) L Mean Corpuscular Volume 93 FL (80-99) Mean Corpuscular Hemoglobin 31.6 PG (27.0-31.0) H Mean Corpuscular Hemoglobin Concent 33.8 G/DL (32.0-36.0) Red Cell Distribution Width 17.0 % (11.6-14.8) H Platelet Count 293 K/UL (150-450) Mean Platelet Volume 5.1 FL (6.5-10.1) L Neutrophils (%) (Auto) % (45.0-75.0) Lymphocytes (%) (Auto) % (20.0-45.0) Monocytes (%) (Auto) % (1.0-10.0) Eosinophils (%) (Auto) % (0.0-3.0) Basophils (%) (Auto) % (0.0-2.0) Differential Total Cells Counted 100 Neutrophils % (Manual) 84 % (45-75) H Lymphocytes % (Manual) 9 % (20-45) L Monocytes % (Manual) 7 % (1-10) Eosinophils % (Manual) 0 % (0-3) Basophils % (Manual) 0 % (0-2) Band Neutrophils 0 % (0-8) Platelet Estimate Adequate Platelet Morphology Normal Hypochromasia 2+ Anisocytosis 1+ Spherocytes 1+ Sodium Level 134 MMOL/L (136-145) L Potassium Level 3.6 MMOL/L (3.5-5.1) Chloride Level 101 MMOL/L (98-107) Carbon Dioxide Level 26 MMOL/L (21-32) Anion Gap 7 mmol/L (5-15) Blood Urea Nitrogen 11 mg/dL (7-18) Creatinine 0.6 MG/DL (0.55-1.30) Estimat Glomerular Filtration Rate mL/min (>60) Glucose Level 118 MG/DL (74-106) H Calcium Level 7.7 MG/DL (8.5-10.1) L Total Bilirubin 0.5 MG/DL (0.2-1.0) Aspartate Amino Transf (AST/SGOT) 17 U/L (15-37) Alanine Aminotransferase (ALT/SGPT) 32 U/L (12-78) Alkaline Phosphatase 91 U/L (46-116) Pro-B-Type Natriuretic Peptide 282 pg/mL (0-125) H Total Protein 5.2 G/DL (6.4-8.2) L Albumin 1.2 G/DL (3.4-5.0) L Globulin 4.0 g/dL Albumin/Globulin Ratio 0.3 (1.0-2.7) L Urine Random Sodium 117 mmol/L (20-110) H Objective HEAD AND NECK: No JVD. LUNGS: Decreased breath sounds. CARDIOVASCULAR: Regular S1 and S2 with no gallop . ABDOMEN: Soft. G-tube intact. EXTREMITIES: Leg edema. Earl Washington MD Nov 24, 2018 14:38
--- NOTE | 2018-11-24 14:53 | Surgery Progress Note ---
Surgery Progress Note Subjective Additional Comments no acute events afebrile, HD stable leukocytosis anemia exam unchanged. Objective Last 24 Hour Vital Signs Date Time Temp Pulse Resp B/P (MAP) Pulse Ox O2 Delivery O2 Flow Rate FiO2 11/24/18 12:00 92 11/24/18 12:00 98.1 102 19 92/46 (61) 100 11/24/18 12:00 Nasal Cannula 3.0 11/24/18 08:00 97.8 97 20 97/53 (68) 100 11/24/18 08:00 114 11/24/18 08:00 Nasal Cannula 3.0 11/24/18 04:00 97.7 92 20 118/60 (79) 100 11/24/18 04:00 Nasal Cannula 3.0 11/24/18 03:26 119 11/24/18 00:00 113 11/24/18 00:00 97.7 102 20 113/60 (77) 100 11/24/18 00:00 Nasal Cannula 3.0 11/23/18 20:00 97.5 101 20 104/61 (75) 100 11/23/18 20:00 Nasal Cannula 3.0 11/23/18 19:29 117 11/23/18 18:59 94 Nasal Cannula 2.0 28 11/23/18 18:58 89 18 94 Nasal Cannula 2.0 28 11/23/18 16:00 98.2 89 18 125/77 (93) 100 11/23/18 16:00 Nasal Cannula 3.0 11/23/18 15:10 98 I&O Intake and Output 11/23/18 11/24/18 19:00 07:00 Intake Total 1245.44864 ml 1707.208 ml Output Total 1100 ml 1800 ml Balance 145.87668 ml -92.792 ml Free Water 105 ml 100 ml IV Total 480.21514 ml 847.208 ml Tube Feeding 660 ml 660 ml Other 100 ml Output Urine Total 1100 ml 1800 ml Dressing: saturated Wound: clean Cardiovascular: RSR Respiratory: decreased breath sounds Abdomen: soft, present bowel sounds, non-distended Extremities: no tenderness, no cyanosis Laboratory Tests Test 11/24/18 05:35 11/24/18 06:30 White Blood Count 11.7 K/UL (4.8-10.8) H Red Blood Count 2.85 M/UL (4.70-6.10) L Hemoglobin 9.0 G/DL (14.2-18.0) L Hematocrit 26.6 % (42.0-52.0) L Mean Corpuscular Volume 93 FL (80-99) Mean Corpuscular Hemoglobin 31.6 PG (27.0-31.0) H Mean Corpuscular Hemoglobin Concent 33.8 G/DL (32.0-36.0) Red Cell Distribution Width 17.0 % (11.6-14.8) H Platelet Count 293 K/UL (150-450) Mean Platelet Volume 5.1 FL (6.5-10.1) L Neutrophils (%) (Auto) % (45.0-75.0) Lymphocytes (%) (Auto) % (20.0-45.0) Monocytes (%) (Auto) % (1.0-10.0) Eosinophils (%) (Auto) % (0.0-3.0) Basophils (%) (Auto) % (0.0-2.0) Differential Total Cells Counted 100 Neutrophils % (Manual) 84 % (45-75) H Lymphocytes % (Manual) 9 % (20-45) L Monocytes % (Manual) 7 % (1-10) Eosinophils % (Manual) 0 % (0-3) Basophils % (Manual) 0 % (0-2) Band Neutrophils 0 % (0-8) Platelet Estimate Adequate Platelet Morphology Normal Hypochromasia 2+ Anisocytosis 1+ Spherocytes 1+ Sodium Level 134 MMOL/L (136-145) L Potassium Level 3.6 MMOL/L (3.5-5.1) Chloride Level 101 MMOL/L (98-107) Carbon Dioxide Level 26 MMOL/L (21-32) Anion Gap 7 mmol/L (5-15) Blood Urea Nitrogen 11 mg/dL (7-18) Creatinine 0.6 MG/DL (0.55-1.30) Estimat Glomerular Filtration Rate mL/min (>60) Glucose Level 118 MG/DL (74-106) H Calcium Level 7.7 MG/DL (8.5-10.1) L Total Bilirubin 0.5 MG/DL (0.2-1.0) Aspartate Amino Transf (AST/SGOT) 17 U/L (15-37) Alanine Aminotransferase (ALT/SGPT) 32 U/L (12-78) Alkaline Phosphatase 91 U/L (46-116) Pro-B-Type Natriuretic Peptide 282 pg/mL (0-125) H Total Protein 5.2 G/DL (6.4-8.2) L Albumin 1.2 G/DL (3.4-5.0) L Globulin 4.0 g/dL Albumin/Globulin Ratio 0.3 (1.0-2.7) L Urine Random Sodium 117 mmol/L (20-110) H Plan Problems: (1) Decubitus skin ulcer Assessment & Plan: Pt presented on admission with multiple pressure injuries. Violaceous macular rash noted to L shoulder ,Upper L side of back and lateral L chest. L upper ext edematous with scattered petechiae. Category 2 skin tear with 10% flap loss noted to L brachial. Small amt sanguineous exudate noted. Unstageable pressure injury Sacrum . Base of wound noted to have 100% mixed slough.necrosis .Edges semi-detached and erythematous. Surrounding non- blanchable erythema without elevation in skin temp ,or induration. (L)9.5cm x (W )6.5cm. NO odor or exudate noted. Full thickness pressure injury lumbar spine in close proximity to sacral pressure injury.Base of wound pink with scattered biofilm. (L)2cm x (W)1.6cm. (+ ) maceration along borders. Periwound without erythema or induration. DTPI noted to medial L heel (L)3.2cm x (W)4.5cm. Base of fluctuant with delineated erythematous borders. Periwound fluctuant with non-blanchable erythema.Additionally, an area of stable dry eschar noted to posterior L heel(L) 0.6cm x (W)0.8cm DTPI Noted to lateral R heel. Maroon discoloration that is fluctuant within base of wound.(L)2.5cm x (W)1cm. DTPI noted to medial R heel. Base of wound fluctuant and is maroon in colour (L) 1.5cm x (W)1cm. Maroon discoloration without fluctuance or induration noted to lateral R tibia , superior but in close proximity to lateral Malleolus.(L)1.4cm x (W)0.5cm. Tx.Plan: Cleanse skin tear L brachial. (Maintain Versatel Contact layer)Apply Silvasorb Gel. Cover with Optifoam drsg. Change every 7 days and prn. Cleanse Sacral wound with Saline. Apply Therahoney. Apply Moisture Barrier Paste periwound. Cover with Optifoam drsg. Change every 3 days and prn. Cleanse wound Lumbar spine with saline. Apply Therahoney. Apply Cavilon Skin Barrier periwound. Cover with Optifoam drsg. Change every 3 days and prn. Apply Cavilon Skin Barrier to Lateral R tibia, R heel and L heel. Cover each site with Optifoam drsg. Change every 7 days and prn. APM/FERNANDEZ mattress overlay. Reposition at least every 2hours or as tolerated. Off-load heels with pillow. (2) Acute DVT (deep venous thrombosis) (3) HCAP (healthcare-associated pneumonia) (4) UTI (urinary tract infection) (5) Anemia, chronic disease (6) Sepsis Assessment & Plan: leukocytosis on IV Abx trend labs cont abx appreciate ID input (7) Feeding by G-tube Assessment & Plan: DAILY ESTIMATED NEEDS: Needs based on Sepsis, wound 60.5kg 25-35 kcals/kg 8454-1699 total kcals 1.25-2 g protein/kg 76-121 g total protein 25-30 mL/kg 9324-2489 total fluid mLs NUTRITION DIAGNOSIS: 1) Increased kcal and pro needs r/t wound healing as evidenced by pt w/ sacral unstageable wound and L heel DTPI. 2) Swallowing difficulty r/t dysphagia as evidenced by pt w/ Parkinson's dz, GT dependent. ENTERAL NUTRITION RECOMMENDATIONS: Glucerna 1.2 @60ml/hr x24 hrs to provide 1440ml, 1728 kcal, 86g pro, 1159ml free H2O - As medically able, rec to start Glucerna 1.2 @20ml/hr, advance as tolerated 10ml q4-6 hrs to goal. 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
[2018-11-24 16:00] VITALS: BP 115/64
--- NOTE | 2018-11-24 18:15 | Progress Note ---
DATE: 11/24/2018 NOTE: POOR AUDIO SUBJECTIVE: This is a 73-year-old male patient with sepsis and pneumonia. He has decline in cognition below his baseline and he has confusion, disorganized thought process. He has pneumonia, but he has altered mental status as well. That is why, his attending has requested daily psychiatric consultation. DIAGNOSIS: Major depressive disorder, mild, recurrent with psychotic features, rule out dementia with psychosis. PLAN: Treat him with Abilify 1 mg every 6 hours, Remeron 15 mg per G-tube at bedtime, Aricept 10 mg per G-tube a day. Provided him with 20 minutes of reality based supportive psychotherapy. . Chart reviewed. Discussed with staff. cognitive behavioral therapy provided. Provided him with 20 minutes of cognitive behavioral therapy to help identify his automatic negative thoughts and help him convert those negative thoughts to more positive thoughts to reduce depression, anxiety, and mood lability. Laith Mason M.D. DR: MILY JOB#: [id number] CC:
--- NOTE | 2018-11-24 19:20 | NUR ---
NURSE NOTES: Received report from Dawson DUNN, pt. in bed with eyes ope- - non-verbal,no signs or symptoms of acute cardiac or respiratory distress noted, secured entrance monitor on, no signs or symptoms of acute cardiac or respiratory distress noted, bed in lowest position and call light within easy reach, bed alarm on, side rails up x's3 and safety brakes engaged, pt. appears to be tolerating current NC settings at 2L- no distress noted, Jevity 1.5 running at 55cc/hr- no residual noted- via g tube, dressings dry and intact, pt. appears to be clean and dry, LFA 18G and LFA 22G-both IVs intact and patent, safety measures continued, will continue with plan of care. Addendum: 11/24/18 at 2032 by GIANLUCA NGO RN RN correction to message above pt. is on 3L NC- and remains stable.
--- NOTE | 2018-11-24 19:25 | NUR ---
HAND-OFF: Report given to JENI DUNN, NO DISTRESS NOTED..
[2018-11-24 20:00] VITALS: BP 92/60
[2018-11-25] VITALS (7 sets, daily range): BP systolic 90–115; BP diastolic 53–72
[2018-11-25] MEDS: Zosyn 3.375gm q8h **Extended infusion IVPB SCH ×6 (05:11→21:00)
[2018-11-25 06:14] LABS: BASOPHILS % (AUTO) 0.6 % (0.0-2.0); EOSINOPHILS % (AUTO) 0.1 % (0.0-3.0); HEMATOCRIT 25.9 % (42.0-52.0); HEMOGLOBIN 8.6 G/DL (14.2-18.0); LYMPHOCYTES % (AUTO) 11.6 % (20.0-45.0); MEAN CORPUSCULAR VOLUME 94 FL (80-99); MONOCYTES % (AUTO) 5.7 % (1.0-10.0); PLATELET COUNT 288 K/UL (150-450); RED BLOOD COUNT 2.76 M/UL (4.70-6.10); RED CELL DISTRIBUTION WIDTH 16.6 % (11.6-14.8); WHITE BLOOD COUNT 10.2 K/UL (4.8-10.8)
[2018-11-25 07:07] LABS: ALANINE AMINOTRANSFERASE 26 U/L (12-78); ALBUMIN 1.1 G/DL (3.4-5.0); ALBUMIN/GLOBULIN RATIO 0.3 (1.0-2.7); ALKALINE PHOSPHATASE 88 U/L (46-116); ANION GAP 8 mmol/L (5-15); ASPARTATE AMINO TRANSFERASE 16 U/L (15-37); BILIRUBIN,TOTAL 0.3 MG/DL (0.2-1.0); BLOOD UREA NITROGEN 13 mg/dL (7-18); CALCIUM 7.9 MG/DL (8.5-10.1); CARBON DIOXIDE 28 MMOL/L (21-32); CHLORIDE 103 MMOL/L (98-107); CREATININE 0.5 MG/DL (0.55-1.30); PHOSPHORUS 3.2 MG/DL (2.5-4.9); POTASSIUM 3.5 MMOL/L (3.5-5.1); SODIUM 139 MMOL/L (136-145)
--- NOTE | 2018-11-25 07:07 | NUR ---
HAND-OFF: Report given to Dawson DUNN, pt. remains stable and no signs of distress noted.
--- NOTE | 2018-11-25 08:10 | NUR ---
NURSE NOTES: received pt in the bed, nonverbal, vital signs stable, no SOB, no co pain, skin warm and dry to touch, dressing dry and intact on sacral and BLE, Mag level 1.4, dr. Trinidad aware, tolerate GT feeding well, Bradley catheter with yellow urine, bed in low position, HOB elevated.
[2018-11-25] MEDS: Bactrim Susp 20ml GT SCH ×2 (08:17→20:03)
[2018-11-25] MEDS: Levodopa/Carbidopa 25/100 tab GT SCH ×3 (08:18→17:59)
[2018-11-25] MEDS: Donepezil 10mg tab GT SCH (08:18)
[2018-11-25] MEDS: Vancomycin 1 GM in D5W 275 ML IVPB SCH ×2 (10:41→22:15)
--- NOTE | 2018-11-25 10:44 | GI Progress Note ---
Assessment/Plan Problems: (1) Parkinson disease ICD Codes: G20 - Parkinson's disease SNOMED: 60296430 (2) Alzheimer's dementia ICD Codes: G30.9 - Alzheimer's disease, unspecified; F02.80 - Dementia in other diseases classified elsewhere without behavioral disturbance SNOMED: 07099597 (3) Feeding by G-tube ICD Codes: Z93.1 - Gastrostomy status SNOMED: 916999031, 145595000, 178003941 (4) Anemia, chronic disease ICD Codes: D63.8 - Anemia in other chronic diseases classified elsewhere SNOMED: 139849870, 428981942 Status: unchanged Status Narrative Discussed with Dr. Dallas. Assessment/Plan s/p colonoscopy SUMMARY OF FINDINGS: 1. Fair colonic prep. 2. Diverticulosis most probably the source of bleeding. 3. No evidence of any acute bleeding at this time. 4. Internal hemorrhoids. RECOMMENDATIONS: 1. Resume G-tube feeding. 2. Okay to anticoagulate from gastrointestinal standpoint at this time given there is no active bleeding. 3. Treat for hemorrhoids if become symptomatic. prn transfusions ppi follow labs The patient was seen and examined at bedside and all new and available data was reviewed in the patients chart. I agree with the above findings, impression and plan. (Patient seen earlier today. Signature stamp does not reflect patient encounter time.). - Deacon Dallas MD Subjective Subjective limited Objective Last 24 Hour Vital Signs Date Time Temp Pulse Resp B/P (MAP) Pulse Ox O2 Delivery O2 Flow Rate FiO2 11/25/18 08:00 104 11/25/18 08:00 Nasal Cannula 3.0 11/25/18 08:00 98.6 94 20 99/57 (71) 100 11/25/18 04:00 3.0 11/25/18 04:00 Nasal Cannula 3.0 11/25/18 03:58 97.5 106 22 98/53 (68) 100 11/25/18 03:56 109 11/25/18 00:00 Nasal Cannula 3.0 11/25/18 00:00 98.2 95 20 101/68 (79) 100 11/25/18 00:00 135 11/25/18 00:00 3.0 11/24/18 20:00 99.1 103 20 92/60 (71) 100 11/24/18 20:00 3.0 11/24/18 20:00 122 11/24/18 20:00 Nasal Cannula 3.0 11/24/18 19:11 99 20 98 Nasal Cannula 2.0 28 11/24/18 19:11 98 Nasal Cannula 2.0 28 11/24/18 16:00 112 11/24/18 16:00 Nasal Cannula 3.0 11/24/18 16:00 99.0 118 20 115/64 (81) 100 11/24/18 12:00 92 11/24/18 12:00 98.1 102 19 92/46 (61) 100 11/24/18 12:00 Nasal Cannula 3.0 Intake and Output 11/24/18 11/25/18 19:00 07:00 Intake Total 1315.000 ml 1567.416 ml Output Total 2000 ml 1740 ml Balance -685.000 ml -172.584 ml Free Water 150 ml 100 ml IV Total 505.000 ml 862.416 ml Tube Feeding 660 ml 605 ml Output Urine Total 2000 ml 1740 ml Laboratory Tests Test 11/25/18 04:45 White Blood Count 10.2 K/UL (4.8-10.8) Red Blood Count 2.76 M/UL (4.70-6.10) L Hemoglobin 8.6 G/DL (14.2-18.0) L Hematocrit 25.9 % (42.0-52.0) L Mean Corpuscular Volume 94 FL (80-99) Mean Corpuscular Hemoglobin 31.2 PG (27.0-31.0) H Mean Corpuscular Hemoglobin Concent 33.2 G/DL (32.0-36.0) Red Cell Distribution Width 16.6 % (11.6-14.8) H Platelet Count 288 K/UL (150-450) Mean Platelet Volume 5.0 FL (6.5-10.1) L Neutrophils (%) (Auto) 82.0 % (45.0-75.0) H Lymphocytes (%) (Auto) 11.6 % (20.0-45.0) L Monocytes (%) (Auto) 5.7 % (1.0-10.0) Eosinophils (%) (Auto) 0.1 % (0.0-3.0) Basophils (%) (Auto) 0.6 % (0.0-2.0) Sodium Level 139 MMOL/L (136-145) Potassium Level 3.5 MMOL/L (3.5-5.1) Chloride Level 103 MMOL/L (98-107) Carbon Dioxide Level 28 MMOL/L (21-32) Anion Gap 8 mmol/L (5-15) Blood Urea Nitrogen 13 mg/dL (7-18) Creatinine 0.5 MG/DL (0.55-1.30) L Estimat Glomerular Filtration Rate mL/min (>60) Glucose Level 135 MG/DL (74-106) H Uric Acid 1.5 MG/DL (2.6-7.2) L Calcium Level 7.9 MG/DL (8.5-10.1) L Phosphorus Level 3.2 MG/DL (2.5-4.9) Magnesium Level 1.4 MG/DL (1.8-2.4) L Total Bilirubin 0.3 MG/DL (0.2-1.0) Aspartate Amino Transf (AST/SGOT) 16 U/L (15-37) Alanine Aminotransferase (ALT/SGPT) 26 U/L (12-78) Alkaline Phosphatase 88 U/L (46-116) Total Protein 4.8 G/DL (6.4-8.2) L Albumin 1.1 G/DL (3.4-5.0) L Globulin 3.7 g/dL Albumin/Globulin Ratio 0.3 (1.0-2.7) L Height (Feet): 5 Height (Inches): 7.00 Weight (Pounds): 161 General Appearance: alert Cardiovascular: normal rate Respiratory/Chest: normal breath sounds Abdominal Exam: site Sohan Kohli NP Nov 25, 2018 10:44
--- NOTE | 2018-11-25 10:51 | Pulmonology Progress Note ---
Assessment/Plan Problems: (1) HCAP (healthcare-associated pneumonia) (2) Sepsis (3) Acute DVT (deep venous thrombosis) (4) Seizures (5) COPD (chronic obstructive pulmonary disease) (6) Anemia, chronic disease (7) Feeding by G-tube (8) Parkinson disease (9) Alzheimer's dementia Assessment/Plan heart rate better IVC filter done colonoscopy continue abx check cultures Needs FLORINA check electrolytes iv fluids check h/h after transfusion Subjective ROS Limited/Unobtainable: No Constitutional: Reports: no symptoms HEENT: Repors: no symptoms Allergies: Coded Allergies: No Known Allergies (Unverified , 11/18/18) Objective Last 24 Hour Vital Signs Date Time Temp Pulse Resp B/P (MAP) Pulse Ox O2 Delivery O2 Flow Rate FiO2 11/25/18 08:00 104 11/25/18 08:00 Nasal Cannula 3.0 11/25/18 08:00 98.6 94 20 99/57 (71) 100 11/25/18 04:00 3.0 11/25/18 04:00 Nasal Cannula 3.0 11/25/18 03:58 97.5 106 22 98/53 (68) 100 11/25/18 03:56 109 11/25/18 00:00 Nasal Cannula 3.0 11/25/18 00:00 98.2 95 20 101/68 (79) 100 11/25/18 00:00 135 11/25/18 00:00 3.0 11/24/18 20:00 99.1 103 20 92/60 (71) 100 11/24/18 20:00 3.0 11/24/18 20:00 122 11/24/18 20:00 Nasal Cannula 3.0 11/24/18 19:11 99 20 98 Nasal Cannula 2.0 28 11/24/18 19:11 98 Nasal Cannula 2.0 28 11/24/18 16:00 112 11/24/18 16:00 Nasal Cannula 3.0 11/24/18 16:00 99.0 118 20 115/64 (81) 100 11/24/18 12:00 92 11/24/18 12:00 98.1 102 19 92/46 (61) 100 11/24/18 12:00 Nasal Cannula 3.0 Intake and Output 11/24/18 11/25/18 19:00 07:00 Intake Total 1315.000 ml 1567.416 ml Output Total 2000 ml 1740 ml Balance -685.000 ml -172.584 ml Free Water 150 ml 100 ml IV Total 505.000 ml 862.416 ml Tube Feeding 660 ml 605 ml Output Urine Total 2000 ml 1740 ml General Appearance: WD/WN HEENT: normocephalic, atraumatic Respiratory/Chest: chest wall non-tender, lungs clear Cardiovascular: normal peripheral pulses, normal rate Abdomen: normal bowel sounds, soft, non tender Skin: no rash 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 Lymphatic: no neck adenopathy Laboratory Tests 11/25/18 04:45: White Blood Count 10.2, Red Blood Count 2.76L, Hemoglobin 8.6L, Hematocrit 25.9L , Mean Corpuscular Volume 94, Mean Corpuscular Hemoglobin 31.2H, Mean Corpuscular Hemoglobin Concent 33.2, Red Cell Distribution Width 16.6H, Platelet Count 288, Mean Platelet Volume 5.0L, Neutrophils (%) (Auto) 82.0H, Lymphocytes (%) (Auto) 11.6L, Monocytes (%) (Auto) 5.7, Eosinophils (%) (Auto) 0.1, Basophils (%) (Auto) 0.6, Sodium Level 139, Potassium Level 3.5, Chloride Level 103, Carbon Dioxide Level 28, Anion Gap 8, Blood Urea Nitrogen 13, Creatinine 0.5L, Estimat Glomerular Filtration Rate , Glucose Level 135H, Uric Acid 1.5L, Calcium Level 7.9L, Phosphorus Level 3.2, Magnesium Level 1.4L, Total Bilirubin 0.3, Aspartate Amino Transf (AST/SGOT) 16, Alanine Aminotransferase (ALT/SGPT) 26, Alkaline Phosphatase 88, Total Protein 4.8L, Albumin 1.1L, Globulin 3.7, Albumin/Globulin Ratio 0.3L Current Medications Medications (Trade) Dose Ordered Sig/Pauline Route PRN Reason Start Time Stop Time Status Last Admin Dose Admin Acetaminophen (Tylenol) 650 mg Q4H PRN GT T>100.5 11/22/18 18:55 12/22/18 18:54 Albuterol/ Ipratropium (Albuterol/ Ipratropium) 3 ml Q4H PRN HHN Shortness of Breath 11/22/18 18:56 11/27/18 18:55 Carbidopa/Levodopa (Sinemet 25/100) 1 tab THREE TIMES A DAY GT 11/23/18 09:00 12/18/18 18:29 11/25/18 08:18 Clonidine HCl (Catapres Tab) 0.1 mg Q4H PRN GT sbp>170mmHg 11/22/18 18:55 12/22/18 18:54 Dextrose (Dextrose 50%) 25 ml Q30M PRN IV Hypoglycemia 11/22/18 19:15 12/18/18 07:44 Dextrose (Dextrose 50%) 50 ml Q30M PRN IV Hypoglycemia 11/22/18 19:15 12/18/18 07:44 Donepezil HCl (Aricept) 10 mg DAILY GT 11/23/18 09:00 12/18/18 08:59 11/25/18 08:18 Furosemide (Lasix) 10 mg EVERY 6 HOURS IV 11/23/18 15:30 12/23/18 15:29 11/25/18 05:11 Lorazepam (Ativan) 1 mg Q6H PRN GT For Anxiety 11/22/18 18:56 11/29/18 18:55 Magnesium Sulfate 100 ml @ 100 mls/hr Q1H IVPB 11/25/18 09:15 11/25/18 13:14 11/25/18 10:40 Mirtazapine (Remeron) 15 mg BEDTIME GT 11/22/18 21:00 12/18/18 20:59 11/24/18 20:01 Morphine Sulfate (Morphine Sulfate) 2 mg Q4H PRN IVP Severe Pain (Pain Scale 7-10) 11/22/18 18:56 11/29/18 18:55 Ondansetron HCl (Zofran) 4 mg Q6H PRN IVP Nausea & Vomiting 11/22/18 18:56 12/22/18 18:55 Piperacillin Sod/ Tazobactam Sod 3.375 gm/Sodium Chloride 110 ml @ 27.5 mls/hr EVERY 8 HOURS IVPB 11/23/18 16:00 11/28/18 15:59 11/25/18 05:11 Polyethylene Glycol (Miralax) 17 gm DAILYPRN PRN ORAL Constipation 11/22/18 18:57 12/22/18 18:56 Trimethoprim/ Sulfamethoxazole (Bactrim-DS) 20 ml Q12HR GT 11/22/18 21:00 11/27/18 11:36 11/25/18 08:17 Vancomycin HCl (Vanco rx to dose) 1 ea DAILY PRN MISC Per rx protocol 11/23/18 09:00 12/22/18 08:59 Vancomycin HCl 1 gm/Dextrose 275 ml @ 183.708 mls/hr Q12HR@1100,2300 IVPB 11/22/18 23:00 11/29/18 22:59 11/25/18 10:41 David Carrasquillo MD Nov 25, 2018 10:51
--- NOTE | 2018-11-25 11:26 | Infectious Diseases Prog Note ---
Assessment/Plan Assessment/Plan Abx: IV Vancomycin 11/18- Cefepime 11/18- Levaquin x 1 11/18 Assessment: Sepsis Pneumonia -CXR: Patchy bilateral infiltrates versus mixed interstitial alveolar edema noted. -sp cx MRSA, MDR P. stuarti (S Amikacin, Zosyn ; I cefepime; S ertapenem) Afebrile Leukocytosis; SP MRSA bacteremia- suspect 2ry to PNA- r/o endocarditis -11/18 Bcx 2/4 MRSA , 1/ S. capitis, Diptheroids (these 2 are contaminants); BCx Neg -2d Echo:limited study (no vegetations) Probable UTI -u/a wbc 10-15, nit neg, leuk +2; ucx MDR ABC (S bactrim, gentamicin) Acute respiratory failure Sacral decubitus ulcer, necrotic, surrounding cellulitis dementia HTN CKD COPD dysphagia s/p Gtube feeding Parkinson disease seizure disorder multiple decubiti wounds assisted resident Plan: -Continue empiric IV Vancomycin #8 for MRSA bacteremia and PNA; duration to follow pending FLORINA -Continue Zosyn #3/7-10 for MDR Providencia PNA -Cont Bactrim #6/7-10 for probable ABC UTI -11/23 SP Cefepime #6 -11/18 SP Levaquin x1 -f/u cx -Monitor CBC/CMP, temperatures -f/u sp cx, legionella ag urine -GT care -aspiration precautions -wound care per surgical team -Recommend FLORINA Thank you for this consultation. Will continue to follow along with you. Discussed with RN and Dr Reis. Subjective Allergies: Coded Allergies: No Known Allergies (Unverified , 11/18/18) Subjective afebrile leukocytosis resolved Repeat Bcx Neg Objective Vital Signs Last 24 Hour Vital Signs Date Time Temp Pulse Resp B/P (MAP) Pulse Ox O2 Delivery O2 Flow Rate FiO2 11/25/18 08:00 104 11/25/18 08:00 Nasal Cannula 3.0 11/25/18 08:00 98.6 94 20 99/57 (71) 100 11/25/18 04:00 3.0 11/25/18 04:00 Nasal Cannula 3.0 11/25/18 03:58 97.5 106 22 98/53 (68) 100 11/25/18 03:56 109 11/25/18 00:00 Nasal Cannula 3.0 11/25/18 00:00 98.2 95 20 101/68 (79) 100 11/25/18 00:00 135 11/25/18 00:00 3.0 11/24/18 20:00 99.1 103 20 92/60 (71) 100 11/24/18 20:00 3.0 11/24/18 20:00 122 11/24/18 20:00 Nasal Cannula 3.0 11/24/18 19:11 99 20 98 Nasal Cannula 2.0 28 11/24/18 19:11 98 Nasal Cannula 2.0 28 11/24/18 16:00 112 11/24/18 16:00 Nasal Cannula 3.0 11/24/18 16:00 99.0 118 20 115/64 (81) 100 11/24/18 12:00 92 11/24/18 12:00 98.1 102 19 92/46 (61) 100 11/24/18 12:00 Nasal Cannula 3.0 Height (Feet): 5 Height (Inches): 7.00 Weight (Pounds): 161 Objective General Appearance: WD/WN, no apparent distress Lines, tubes and drains: central line HEENT: normocephalic, atraumatic Neck: non-tender, normal alignment Cardiovascular/Chest: normal peripheral pulses, normal rate, regular rhythm Abdomen: normal bowel sounds, non tender Extremities: normal range of motion Skin Exam: normal pigmentation 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 Laboratory Tests Test 11/25/18 04:45 White Blood Count 10.2 K/UL (4.8-10.8) Red Blood Count 2.76 M/UL (4.70-6.10) L Hemoglobin 8.6 G/DL (14.2-18.0) L Hematocrit 25.9 % (42.0-52.0) L Mean Corpuscular Volume 94 FL (80-99) Mean Corpuscular Hemoglobin 31.2 PG (27.0-31.0) H Mean Corpuscular Hemoglobin Concent 33.2 G/DL (32.0-36.0) Red Cell Distribution Width 16.6 % (11.6-14.8) H Platelet Count 288 K/UL (150-450) Mean Platelet Volume 5.0 FL (6.5-10.1) L Neutrophils (%) (Auto) 82.0 % (45.0-75.0) H Lymphocytes (%) (Auto) 11.6 % (20.0-45.0) L Monocytes (%) (Auto) 5.7 % (1.0-10.0) Eosinophils (%) (Auto) 0.1 % (0.0-3.0) Basophils (%) (Auto) 0.6 % (0.0-2.0) Sodium Level 139 MMOL/L (136-145) Potassium Level 3.5 MMOL/L (3.5-5.1) Chloride Level 103 MMOL/L (98-107) Carbon Dioxide Level 28 MMOL/L (21-32) Anion Gap 8 mmol/L (5-15) Blood Urea Nitrogen 13 mg/dL (7-18) Creatinine 0.5 MG/DL (0.55-1.30) L Estimat Glomerular Filtration Rate mL/min (>60) Glucose Level 135 MG/DL (74-106) H Uric Acid 1.5 MG/DL (2.6-7.2) L Calcium Level 7.9 MG/DL (8.5-10.1) L Phosphorus Level 3.2 MG/DL (2.5-4.9) Magnesium Level 1.4 MG/DL (1.8-2.4) L Total Bilirubin 0.3 MG/DL (0.2-1.0) Aspartate Amino Transf (AST/SGOT) 16 U/L (15-37) Alanine Aminotransferase (ALT/SGPT) 26 U/L (12-78) Alkaline Phosphatase 88 U/L (46-116) Total Protein 4.8 G/DL (6.4-8.2) L Albumin 1.1 G/DL (3.4-5.0) L Globulin 3.7 g/dL Albumin/Globulin Ratio 0.3 (1.0-2.7) L Current Medications Medications (Trade) Dose Ordered Sig/Pauline Route PRN Reason Start Time Stop Time Status Last Admin Dose Admin Acetaminophen (Tylenol) 650 mg Q4H PRN GT T>100.5 11/22/18 18:55 12/22/18 18:54 Albuterol/ Ipratropium (Albuterol/ Ipratropium) 3 ml Q4H PRN HHN Shortness of Breath 11/22/18 18:56 11/27/18 18:55 Carbidopa/Levodopa (Sinemet 25/100) 1 tab THREE TIMES A DAY GT 11/23/18 09:00 12/18/18 18:29 11/25/18 08:18 Clonidine HCl (Catapres Tab) 0.1 mg Q4H PRN GT sbp>170mmHg 11/22/18 18:55 12/22/18 18:54 Dextrose (Dextrose 50%) 25 ml Q30M PRN IV Hypoglycemia 11/22/18 19:15 12/18/18 07:44 Dextrose (Dextrose 50%) 50 ml Q30M PRN IV Hypoglycemia 11/22/18 19:15 12/18/18 07:44 Donepezil HCl (Aricept) 10 mg DAILY GT 11/23/18 09:00 12/18/18 08:59 11/25/18 08:18 Furosemide (Lasix) 10 mg EVERY 6 HOURS IV 11/23/18 15:30 12/23/18 15:29 11/25/18 05:11 Lorazepam (Ativan) 1 mg Q6H PRN GT For Anxiety 11/22/18 18:56 11/29/18 18:55 Magnesium Sulfate 100 ml @ 100 mls/hr Q1H IVPB 11/25/18 09:15 11/25/18 13:14 11/25/18 10:40 Mirtazapine (Remeron) 15 mg BEDTIME GT 11/22/18 21:00 12/18/18 20:59 11/24/18 20:01 Morphine Sulfate (Morphine Sulfate) 2 mg Q4H PRN IVP Severe Pain (Pain Scale 7-10) 11/22/18 18:56 11/29/18 18:55 Ondansetron HCl (Zofran) 4 mg Q6H PRN IVP Nausea & Vomiting 11/22/18 18:56 12/22/18 18:55 Piperacillin Sod/ Tazobactam Sod 3.375 gm/Sodium Chloride 110 ml @ 27.5 mls/hr EVERY 8 HOURS IVPB 11/23/18 16:00 11/28/18 15:59 11/25/18 05:11 Polyethylene Glycol (Miralax) 17 gm DAILYPRN PRN ORAL Constipation 11/22/18 18:57 12/22/18 18:56 Trimethoprim/ Sulfamethoxazole (Bactrim-DS) 20 ml Q12HR GT 11/22/18 21:00 11/27/18 11:36 11/25/18 08:17 Vancomycin HCl (Vanco rx to dose) 1 ea DAILY PRN MISC Per rx protocol 11/23/18 09:00 12/22/18 08:59 Vancomycin HCl 1 gm/Dextrose 275 ml @ 183.708 mls/hr Q12HR@1100,2300 IVPB 11/22/18 23:00 11/29/18 22:59 11/25/18 10:41 Neva Yee M.D. Nov 25, 2018 11:26
--- NOTE | 2018-11-25 12:08 | General Progress Note ---
Assessment/Plan Problem List: (1) Acute DVT (deep venous thrombosis) ICD Codes: I82.409 - Acute embolism and thrombosis of unspecified deep veins of unspecified lower extremity SNOMED: 312486470275079 (2) UTI (urinary tract infection) ICD Codes: N39.0 - Urinary tract infection, site not specified SNOMED: 83431016, 373468319 Qualifiers: Qualified Codes: N30.00 - Acute cystitis without hematuria (3) Anemia, chronic disease ICD Codes: D63.8 - Anemia in other chronic diseases classified elsewhere SNOMED: 169371238, 845130296 (4) Parkinson disease ICD Codes: G20 - Parkinson's disease SNOMED: 68805511 (5) Alzheimer's dementia ICD Codes: G30.9 - Alzheimer's disease, unspecified; F02.80 - Dementia in other diseases classified elsewhere without behavioral disturbance SNOMED: 66115571 (6) COPD (chronic obstructive pulmonary disease) ICD Codes: J44.9 - Chronic obstructive pulmonary disease, unspecified SNOMED: 34929519 Status: unchanged Assessment/Plan: o2 pulm tx abx pt diet heme f/u cbc bmp am aru eval Subjective Constitutional: Reports: weakness Allergies: Coded Allergies: No Known Allergies (Unverified , 11/18/18) All Systems: reviewed and negative except above Subjective o2nc sleepy Objective Last 24 Hour Vital Signs Date Time Temp Pulse Resp B/P (MAP) Pulse Ox O2 Delivery O2 Flow Rate FiO2 11/25/18 08:00 104 11/25/18 08:00 Nasal Cannula 3.0 11/25/18 08:00 98.6 94 20 99/57 (71) 100 11/25/18 04:00 3.0 11/25/18 04:00 Nasal Cannula 3.0 11/25/18 03:58 97.5 106 22 98/53 (68) 100 11/25/18 03:56 109 11/25/18 00:00 Nasal Cannula 3.0 11/25/18 00:00 98.2 95 20 101/68 (79) 100 11/25/18 00:00 135 11/25/18 00:00 3.0 11/24/18 20:00 99.1 103 20 92/60 (71) 100 11/24/18 20:00 3.0 11/24/18 20:00 122 11/24/18 20:00 Nasal Cannula 3.0 11/24/18 19:11 99 20 98 Nasal Cannula 2.0 28 11/24/18 19:11 98 Nasal Cannula 2.0 28 11/24/18 16:00 112 11/24/18 16:00 Nasal Cannula 3.0 11/24/18 16:00 99.0 118 20 115/64 (81) 100 Intake and Output 11/24/18 11/25/18 19:00 07:00 Intake Total 1315.000 ml 1567.416 ml Output Total 2000 ml 1740 ml Balance -685.000 ml -172.584 ml Free Water 150 ml 100 ml IV Total 505.000 ml 862.416 ml Tube Feeding 660 ml 605 ml Output Urine Total 2000 ml 1740 ml Laboratory Tests 11/25/18 04:45: White Blood Count 10.2, Red Blood Count 2.76L, Hemoglobin 8.6L, Hematocrit 25.9L , Mean Corpuscular Volume 94, Mean Corpuscular Hemoglobin 31.2H, Mean Corpuscular Hemoglobin Concent 33.2, Red Cell Distribution Width 16.6H, Platelet Count 288, Mean Platelet Volume 5.0L, Neutrophils (%) (Auto) 82.0H, Lymphocytes (%) (Auto) 11.6L, Monocytes (%) (Auto) 5.7, Eosinophils (%) (Auto) 0.1, Basophils (%) (Auto) 0.6, Sodium Level 139, Potassium Level 3.5, Chloride Level 103, Carbon Dioxide Level 28, Anion Gap 8, Blood Urea Nitrogen 13, Creatinine 0.5L, Estimat Glomerular Filtration Rate , Glucose Level 135H, Uric Acid 1.5L, Calcium Level 7.9L, Phosphorus Level 3.2, Magnesium Level 1.4L, Total Bilirubin 0.3, Aspartate Amino Transf (AST/SGOT) 16, Alanine Aminotransferase (ALT/SGPT) 26, Alkaline Phosphatase 88, Total Protein 4.8L, Albumin 1.1L, Globulin 3.7, Albumin/Globulin Ratio 0.3L Height (Feet): 5 Height (Inches): 7.00 Weight (Pounds): 161 General Appearance: lethargic EENT: normal ENT inspection Neck: normal alignment Cardiovascular: normal peripheral pulses, normal rate, regular rhythm Respiratory/Chest: chest wall non-tender, lungs clear, normal breath sounds Abdomen: normal bowel sounds, non tender, soft Extremities: normal inspection Edema: no edema noted Arm (L), no edema noted Arm (R), no edema noted Leg (L), no edema noted Leg (R), no edema noted Pedal (L), no edema noted Pedal (R), no edema noted Generalized Neurologic: motor weakness Skin: normal pigmentation, warm/dry Abdullahi Gonzalez DO Nov 25, 2018 12:08
--- NOTE | 2018-11-25 12:23 | Surgery Progress Note ---
Surgery Progress Note Objective Last 24 Hour Vital Signs Date Time Temp Pulse Resp B/P (MAP) Pulse Ox O2 Delivery O2 Flow Rate FiO2 11/25/18 08:00 104 11/25/18 08:00 Nasal Cannula 3.0 11/25/18 08:00 98.6 94 20 99/57 (71) 100 11/25/18 04:00 3.0 11/25/18 04:00 Nasal Cannula 3.0 11/25/18 03:58 97.5 106 22 98/53 (68) 100 11/25/18 03:56 109 11/25/18 00:00 Nasal Cannula 3.0 11/25/18 00:00 98.2 95 20 101/68 (79) 100 11/25/18 00:00 135 11/25/18 00:00 3.0 11/24/18 20:00 99.1 103 20 92/60 (71) 100 11/24/18 20:00 3.0 11/24/18 20:00 122 11/24/18 20:00 Nasal Cannula 3.0 11/24/18 19:11 99 20 98 Nasal Cannula 2.0 28 11/24/18 19:11 98 Nasal Cannula 2.0 28 11/24/18 16:00 112 11/24/18 16:00 Nasal Cannula 3.0 11/24/18 16:00 99.0 118 20 115/64 (81) 100 I&O Intake and Output 11/24/18 11/25/18 19:00 07:00 Intake Total 1315.000 ml 1567.416 ml Output Total 2000 ml 1740 ml Balance -685.000 ml -172.584 ml Free Water 150 ml 100 ml IV Total 505.000 ml 862.416 ml Tube Feeding 660 ml 605 ml Output Urine Total 2000 ml 1740 ml Dressing: dry Wound: clean Drains: other Cardiovascular: RSR Respiratory: decreased breath sounds Abdomen: soft, present bowel sounds, non-distended Extremities: no cyanosis Laboratory Tests Test 11/25/18 04:45 White Blood Count 10.2 K/UL (4.8-10.8) Red Blood Count 2.76 M/UL (4.70-6.10) L Hemoglobin 8.6 G/DL (14.2-18.0) L Hematocrit 25.9 % (42.0-52.0) L Mean Corpuscular Volume 94 FL (80-99) Mean Corpuscular Hemoglobin 31.2 PG (27.0-31.0) H Mean Corpuscular Hemoglobin Concent 33.2 G/DL (32.0-36.0) Red Cell Distribution Width 16.6 % (11.6-14.8) H Platelet Count 288 K/UL (150-450) Mean Platelet Volume 5.0 FL (6.5-10.1) L Neutrophils (%) (Auto) 82.0 % (45.0-75.0) H Lymphocytes (%) (Auto) 11.6 % (20.0-45.0) L Monocytes (%) (Auto) 5.7 % (1.0-10.0) Eosinophils (%) (Auto) 0.1 % (0.0-3.0) Basophils (%) (Auto) 0.6 % (0.0-2.0) Sodium Level 139 MMOL/L (136-145) Potassium Level 3.5 MMOL/L (3.5-5.1) Chloride Level 103 MMOL/L (98-107) Carbon Dioxide Level 28 MMOL/L (21-32) Anion Gap 8 mmol/L (5-15) Blood Urea Nitrogen 13 mg/dL (7-18) Creatinine 0.5 MG/DL (0.55-1.30) L Estimat Glomerular Filtration Rate mL/min (>60) Glucose Level 135 MG/DL (74-106) H Uric Acid 1.5 MG/DL (2.6-7.2) L Calcium Level 7.9 MG/DL (8.5-10.1) L Phosphorus Level 3.2 MG/DL (2.5-4.9) Magnesium Level 1.4 MG/DL (1.8-2.4) L Total Bilirubin 0.3 MG/DL (0.2-1.0) Aspartate Amino Transf (AST/SGOT) 16 U/L (15-37) Alanine Aminotransferase (ALT/SGPT) 26 U/L (12-78) Alkaline Phosphatase 88 U/L (46-116) Total Protein 4.8 G/DL (6.4-8.2) L Albumin 1.1 G/DL (3.4-5.0) L Globulin 3.7 g/dL Albumin/Globulin Ratio 0.3 (1.0-2.7) L Plan Problems: (1) Decubitus skin ulcer Assessment & Plan: Pt presented on admission with multiple pressure injuries. Violaceous macular rash noted to L shoulder ,Upper L side of back and lateral L chest. L upper ext edematous with scattered petechiae. Category 2 skin tear with 10% flap loss noted to L brachial. Small amt sanguineous exudate noted. Unstageable pressure injury Sacrum . Base of wound noted to have 100% mixed slough.necrosis .Edges semi-detached and erythematous. Surrounding non- blanchable erythema without elevation in skin temp ,or induration. (L)9.5cm x (W )6.5cm. NO odor or exudate noted. Full thickness pressure injury lumbar spine in close proximity to sacral pressure injury.Base of wound pink with scattered biofilm. (L)2cm x (W)1.6cm. (+ ) maceration along borders. Periwound without erythema or induration. DTPI noted to medial L heel (L)3.2cm x (W)4.5cm. Base of fluctuant with delineated erythematous borders. Periwound fluctuant with non-blanchable erythema.Additionally, an area of stable dry eschar noted to posterior L heel(L) 0.6cm x (W)0.8cm DTPI Noted to lateral R heel. Maroon discoloration that is fluctuant within base of wound.(L)2.5cm x (W)1cm. DTPI noted to medial R heel. Base of wound fluctuant and is maroon in colour (L) 1.5cm x (W)1cm. Maroon discoloration without fluctuance or induration noted to lateral R tibia , superior but in close proximity to lateral Malleolus.(L)1.4cm x (W)0.5cm. Tx.Plan: Cleanse skin tear L brachial. (Maintain Versatel Contact layer)Apply Silvasorb Gel. Cover with Optifoam drsg. Change every 7 days and prn. Cleanse Sacral wound with Saline. Apply Therahoney. Apply Moisture Barrier Paste periwound. Cover with Optifoam drsg. Change every 3 days and prn. Cleanse wound Lumbar spine with saline. Apply Therahoney. Apply Cavilon Skin Barrier periwound. Cover with Optifoam drsg. Change every 3 days and prn. Apply Cavilon Skin Barrier to Lateral R tibia, R heel and L heel. Cover each site with Optifoam drsg. Change every 7 days and prn. APM/FERNANDEZ mattress overlay. Reposition at least every 2hours or as tolerated. Off-load heels with pillow. (2) Acute DVT (deep venous thrombosis) (3) HCAP (healthcare-associated pneumonia) (4) UTI (urinary tract infection) (5) Anemia, chronic disease (6) Sepsis Assessment & Plan: leukocytosis resolved improving trend labs cont abx appreciate ID input (7) Feeding by G-tube Assessment & Plan: DAILY ESTIMATED NEEDS: Needs based on Sepsis, wound 60.5kg 25-35 kcals/kg 6678-0589 total kcals 1.25-2 g protein/kg 76-121 g total protein 25-30 mL/kg 2307-9071 total fluid mLs NUTRITION DIAGNOSIS: 1) Increased kcal and pro needs r/t wound healing as evidenced by pt w/ sacral unstageable wound and L heel DTPI. 2) Swallowing difficulty r/t dysphagia as evidenced by pt w/ Parkinson's dz, GT dependent. ENTERAL NUTRITION RECOMMENDATIONS: Glucerna 1.2 @60ml/hr x24 hrs to provide 1440ml, 1728 kcal, 86g pro, 1159ml free H2O - As medically able, rec to start Glucerna 1.2 @20ml/hr, advance as tolerated 10ml q4-6 hrs to goal. - Flush per MD/ HOB over 30 degrees ADDITIONAL RECOMMENDATIONS: 1) Per SNF: 5'6" ht, 133 lbs wt 2) MEDICAL BILLING REPRESENTATIVE eval if oral grat is appropriate 3) Wound care: Add YOLI BID via GT + VIT C 250mg BID 4) Hypoglycemics prn/ niss (8) COPD (chronic obstructive pulmonary disease) (9) Alzheimer's dementia (10) Parkinson disease (11) Seizures Andrew Eugene Nov 25, 2018 12:23
--- NOTE | 2018-11-25 14:53 | Nephrology Progress Note ---
Assessment/Plan Problem List: (1) Hyponatremia Assessment: Na higher (2) UTI (urinary tract infection) (3) Anemia, chronic disease (4) Alzheimer's dementia (5) Parkinson disease Assessment Low Na likely due to hypotonic IV solution administration other conditions Pneumonia UTI, has grewal bacteremia sacral decub dementia HTN Sz disorder Parkinsons severe Anemia Plan previously Trial of lasix and 3% Saline led to higher Na stop HypoTonic IV solution Urine studies Transfused Per orders roberto carlos khalil Subjective ROS Limited/Unobtainable: Yes Objective Objective Last 24 Hour Vital Signs Date Time Temp Pulse Resp B/P (MAP) Pulse Ox O2 Delivery O2 Flow Rate FiO2 11/25/18 12:00 88 11/25/18 12:00 Nasal Cannula 3.0 11/25/18 12:00 99.1 102 19 90/55 (67) 100 11/25/18 08:00 104 11/25/18 08:00 Nasal Cannula 3.0 11/25/18 08:00 98.6 94 20 99/57 (71) 100 11/25/18 04:00 3.0 11/25/18 04:00 Nasal Cannula 3.0 11/25/18 03:58 97.5 106 22 98/53 (68) 100 11/25/18 03:56 109 11/25/18 00:00 Nasal Cannula 3.0 11/25/18 00:00 98.2 95 20 101/68 (79) 100 11/25/18 00:00 135 11/25/18 00:00 3.0 11/24/18 20:00 99.1 103 20 92/60 (71) 100 11/24/18 20:00 3.0 11/24/18 20:00 122 11/24/18 20:00 Nasal Cannula 3.0 11/24/18 19:11 99 20 98 Nasal Cannula 2.0 28 11/24/18 19:11 98 Nasal Cannula 2.0 28 11/24/18 16:00 112 11/24/18 16:00 Nasal Cannula 3.0 11/24/18 16:00 99.0 118 20 115/64 (81) 100 Intake and Output 11/24/18 11/25/18 19:00 07:00 Intake Total 1315.000 ml 1622.416 ml Output Total 2000 ml 1740 ml Balance -685.000 ml -117.584 ml Free Water 150 ml 100 ml IV Total 505.000 ml 862.416 ml Tube Feeding 660 ml 660 ml Output Urine Total 2000 ml 1740 ml Laboratory Tests 11/25/18 04:45: White Blood Count 10.2, Red Blood Count 2.76L, Hemoglobin 8.6L, Hematocrit 25.9L , Mean Corpuscular Volume 94, Mean Corpuscular Hemoglobin 31.2H, Mean Corpuscular Hemoglobin Concent 33.2, Red Cell Distribution Width 16.6H, Platelet Count 288, Mean Platelet Volume 5.0L, Neutrophils (%) (Auto) 82.0H, Lymphocytes (%) (Auto) 11.6L, Monocytes (%) (Auto) 5.7, Eosinophils (%) (Auto) 0.1, Basophils (%) (Auto) 0.6, Sodium Level 139, Potassium Level 3.5, Chloride Level 103, Carbon Dioxide Level 28, Anion Gap 8, Blood Urea Nitrogen 13, Creatinine 0.5L, Estimat Glomerular Filtration Rate , Glucose Level 135H, Uric Acid 1.5L, Calcium Level 7.9L, Phosphorus Level 3.2, Magnesium Level 1.4L, Total Bilirubin 0.3, Aspartate Amino Transf (AST/SGOT) 16, Alanine Aminotransferase (ALT/SGPT) 26, Alkaline Phosphatase 88, Total Protein 4.8L, Albumin 1.1L, Globulin 3.7, Albumin/Globulin Ratio 0.3L Height (Feet): 5 Height (Inches): 7.00 Weight (Pounds): 161 General Appearance: no apparent distress Objective no change Kendall Trinidad MD Nov 25, 2018 14:53
--- NOTE | 2018-11-25 14:59 | NUR ---
DISCHARGE PLANNING: NOTE CLINICALS FAXED TO [facility] FOR REVIEW Addendum: 11/26/18 at 0930 by Jessica Faulkner CM DENIED ACCEPTANCE BY [facility]. DR CORREIA AWARE
--- NOTE | 2018-11-25 16:00 | NUR ---
NURSE NOTES: vital signs stable, no sob, left arm swollen, both heplock on left hand patten, good blood return, continue monitoring.
--- NOTE | 2018-11-25 16:45 | Progress Note ---
DATE: 11/25/2018 SUBJECTIVE: This is a 73-year-old male patient with sepsis and pneumonia, but he has altered mental status, depression, confusion, worsened by stress of his medical illness that is why his attending physician has requested daily psychiatric consultation. MENTAL STATUS EXAMINATION: A 73-year-old male patient. Appearance is disheveled. Attitude, irritable and agitated. Affect guarded and restricted. Intellect poor. Mood depressed and anxious. Motor activity, psychomotor agitation. Attention span is poor. Orientation x2. Speech is pressured. Thought process, disorganized and illogical. Insight and judgment is poor. DIAGNOSIS: Major depressive disorder, severe, recurrent with psychotic features, rule out dementia with psychosis. PLAN: Treat him with Remeron 15 mg per G-tube at bedtime, Aricept 10 mg per G-tube daily, and Ativan 1 mg per G-tube every 6 hours p.r.n. anxiety and agitation. Provided him with 20 minutes of cognitive behavioral therapy to help him identify his automatic negative thoughts and help him convert negative thoughts to more positive thoughts to reduce depression, anxiety, mood lability. Chart reviewed. Discussed with staff. Seen and assessed at bedside. Laith Mason M.D. DR: Delia JOB#: [id number] CC:
--- NOTE | 2018-11-25 19:03 | NUR ---
NURSE NOTES: dr Washington saw pt, notified left arm swollen, ordered venous duplex BUE.
--- NOTE | 2018-11-25 19:08 | NUR ---
HAND-OFF: Report given to JENI DUNN.
--- NOTE | 2018-11-25 19:09 | Cardiac Electrophysiology PN ---
Assessment/Plan Assessment/Plan 1. Sinus tach due to anemia and sepsis and beta danya withdrawal ( was on Metoprolol 12.5 bid at [facility]) 2. Hypertension. Echo EF 55% 3. Acute right leg DVT. Heparin drip DCed for rectal bleed.S/P IVC filter 4. Staph aureous bacteremia. On Abx by Dr. Yee who recommended FLORINA and is pending consent 5. Parkinsonism. 6. COPD. 7. UTI. 8. Anemia and rectal bleed.S/P Colonoscopy and transfusion 9. Seizure disorder. 10. S/P PEG DW RN Subjective Subjective In sinus tach. IVC filter placed. Unable to get consent for FLORINA Objective Last 24 Hour Vital Signs Date Time Temp Pulse Resp B/P (MAP) Pulse Ox O2 Delivery O2 Flow Rate FiO2 11/25/18 16:00 97.7 98 20 115/67 (83) 100 11/25/18 16:00 Nasal Cannula 3.0 11/25/18 15:58 94 11/25/18 12:00 88 11/25/18 12:00 Nasal Cannula 3.0 11/25/18 12:00 99.1 102 19 90/55 (67) 100 11/25/18 08:00 104 11/25/18 08:00 Nasal Cannula 3.0 11/25/18 08:00 98.6 94 20 99/57 (71) 100 11/25/18 04:00 3.0 11/25/18 04:00 Nasal Cannula 3.0 11/25/18 03:58 97.5 106 22 98/53 (68) 100 11/25/18 03:56 109 11/25/18 00:00 Nasal Cannula 3.0 11/25/18 00:00 98.2 95 20 101/68 (79) 100 11/25/18 00:00 135 11/25/18 00:00 3.0 11/24/18 20:00 99.1 103 20 92/60 (71) 100 11/24/18 20:00 3.0 11/24/18 20:00 122 11/24/18 20:00 Nasal Cannula 3.0 11/24/18 19:11 99 20 98 Nasal Cannula 2.0 28 11/24/18 19:11 98 Nasal Cannula 2.0 28 Intake and Output 11/24/18 11/25/18 19:00 07:00 Intake Total 1315.000 ml 1622.416 ml Output Total 2000 ml 1740 ml Balance -685.000 ml -117.584 ml Free Water 150 ml 100 ml IV Total 505.000 ml 862.416 ml Tube Feeding 660 ml 660 ml Output Urine Total 2000 ml 1740 ml Laboratory Tests Test 11/25/18 04:45 White Blood Count 10.2 K/UL (4.8-10.8) Red Blood Count 2.76 M/UL (4.70-6.10) L Hemoglobin 8.6 G/DL (14.2-18.0) L Hematocrit 25.9 % (42.0-52.0) L Mean Corpuscular Volume 94 FL (80-99) Mean Corpuscular Hemoglobin 31.2 PG (27.0-31.0) H Mean Corpuscular Hemoglobin Concent 33.2 G/DL (32.0-36.0) Red Cell Distribution Width 16.6 % (11.6-14.8) H Platelet Count 288 K/UL (150-450) Mean Platelet Volume 5.0 FL (6.5-10.1) L Neutrophils (%) (Auto) 82.0 % (45.0-75.0) H Lymphocytes (%) (Auto) 11.6 % (20.0-45.0) L Monocytes (%) (Auto) 5.7 % (1.0-10.0) Eosinophils (%) (Auto) 0.1 % (0.0-3.0) Basophils (%) (Auto) 0.6 % (0.0-2.0) Sodium Level 139 MMOL/L (136-145) Potassium Level 3.5 MMOL/L (3.5-5.1) Chloride Level 103 MMOL/L (98-107) Carbon Dioxide Level 28 MMOL/L (21-32) Anion Gap 8 mmol/L (5-15) Blood Urea Nitrogen 13 mg/dL (7-18) Creatinine 0.5 MG/DL (0.55-1.30) L Estimat Glomerular Filtration Rate mL/min (>60) Glucose Level 135 MG/DL (74-106) H Uric Acid 1.5 MG/DL (2.6-7.2) L Calcium Level 7.9 MG/DL (8.5-10.1) L Phosphorus Level 3.2 MG/DL (2.5-4.9) Magnesium Level 1.4 MG/DL (1.8-2.4) L Total Bilirubin 0.3 MG/DL (0.2-1.0) Aspartate Amino Transf (AST/SGOT) 16 U/L (15-37) Alanine Aminotransferase (ALT/SGPT) 26 U/L (12-78) Alkaline Phosphatase 88 U/L (46-116) Total Protein 4.8 G/DL (6.4-8.2) L Albumin 1.1 G/DL (3.4-5.0) L Globulin 3.7 g/dL Albumin/Globulin Ratio 0.3 (1.0-2.7) L Objective HEAD AND NECK: No JVD. LUNGS: Decreased breath sounds. CARDIOVASCULAR: Regular S1 and S2 with no gallop . ABDOMEN: Soft. G-tube intact. EXTREMITIES: Leg edema. Earl Washington MD Nov 25, 2018 19:09
--- NOTE | 2018-11-25 19:11 | NUR ---
NURSE NOTES: Received report from Dawson RN, pt. in bed with eyes open- - non-verbal,no signs or symptoms of acute cardiac or respiratory distress noted, binding folder machine on, no signs or symptoms of acute cardiac or respiratory distress noted, bed in lowest position and call light within easy reach, bed alarm on, side rails up x's3 and safety brakes engaged, pt. appears to be tolerating current NC settings at 3L- no distress noted, Jevity 1.5 running at 55cc/hr- no residual noted- via G tube, dressings dry and intact, pt. appears to be clean and dry and resting comfortably, LFA 18G and LFA 22G-both IVs intact and patent, safety measures continued, will continue with plan of care.
[2018-11-25] MEDS: Acetaminophen 650mg/20.3ml GT PRN (20:04)
--- NOTE | 2018-11-25 21:34 | Hematology/Onc Progress Note ---
Assessment/Plan Assessment/Plan Assessment and Recs: # Acute right leg DVT. Heparin drip DCed for rectal bleed. s/p IVC FILTER --> agree with need for this given coagulant contraindication --> after ivcf placed and if h/h stable, may consider anticaogulation if not bleeding --> appreciate gi and pulm/cc recs # Anemia due to GI Bleed, other causes exist, multifactorial --> Anemia workup has been reviewed, FERRITIN 831 --> No evidence of hemolysis is noted, peripheral smear has been reviewed. --> Hgb goal >7. Transfuse prn. --> Epogen or iron at this time is not particularly indicated --> Medications have been reviewed --> low threshold for gi evaluation in case has occult +--> endoscopy and colo pending --> hgb trend: 7.4-->9.0-->9-->8.6 --> Blood tx: 1 unit 11/19, # Leukocytosis due to sepsis. --> Monitor for improvement --> urine and blood cultures are both positive, mrsa positive --> IV abx per id # Sinus tach due to anemia and sepsis and beta danya withdrawal as was on Metoprolol 12.5 bid at [facility] --> per cards recs # Hypertension. Hold Metoprolol as BP is 90s. --> cloniditon per cards # S/P PEG The timing of this note does not necessarily reflect the time of the patient was seen. GREATLY APPRECIATE CONSULTATION. Subjective Allergies: Coded Allergies: No Known Allergies (Unverified , 11/18/18) Subjective 11/20: Colonoscopy for today. S/P 1 unit prbc. 11/21: Pt awake and nonverbal. Hgb at 7.4, blood tx ordered. 11/23: Pt no acute respiratory distress. CXR Increased bilateral lower lobe atelectasis or airspace consolidation. Underlying pneumonia may be present. Small bilateral pleural effusions. 11/24: no events, no f/c noted, no bleeding, anemia panel reviewed, s/p ivc filter 11/25: No acute events, no signs of distress. DC planning Objective Objective Current Medications Medications (Trade) Dose Ordered Sig/Pauline Route PRN Reason Start Time Stop Time Status Last Admin Dose Admin Acetaminophen (Tylenol) 650 mg Q4H PRN GT T>100.5 11/22/18 18:55 12/22/18 18:54 11/25/18 20:04 Albuterol/ Ipratropium (Albuterol/ Ipratropium) 3 ml Q4H PRN HHN Shortness of Breath 11/22/18 18:56 11/27/18 18:55 Carbidopa/Levodopa (Sinemet 25/100) 1 tab THREE TIMES A DAY GT 11/23/18 09:00 12/18/18 18:29 11/25/18 17:59 Clonidine HCl (Catapres Tab) 0.1 mg Q4H PRN GT sbp>170mmHg 11/22/18 18:55 12/22/18 18:54 Dextrose (Dextrose 50%) 25 ml Q30M PRN IV Hypoglycemia 11/22/18 19:15 12/18/18 07:44 Dextrose (Dextrose 50%) 50 ml Q30M PRN IV Hypoglycemia 11/22/18 19:15 12/18/18 07:44 Donepezil HCl (Aricept) 10 mg DAILY GT 11/23/18 09:00 12/18/18 08:59 11/25/18 08:18 Lorazepam (Ativan) 1 mg Q6H PRN GT For Anxiety 11/22/18 18:56 11/29/18 18:55 Mirtazapine (Remeron) 15 mg BEDTIME GT 11/22/18 21:00 12/18/18 20:59 11/25/18 20:04 Morphine Sulfate (Morphine Sulfate) 2 mg Q4H PRN IVP Severe Pain (Pain Scale 7-10) 11/22/18 18:56 11/29/18 18:55 Ondansetron HCl (Zofran) 4 mg Q6H PRN IVP Nausea & Vomiting 11/22/18 18:56 12/22/18 18:55 Piperacillin Sod/ Tazobactam Sod 3.375 gm/Sodium Chloride 110 ml @ 27.5 mls/hr EVERY 8 HOURS IVPB 11/23/18 16:00 11/28/18 15:59 11/25/18 21:00 Polyethylene Glycol (Miralax) 17 gm DAILYPRN PRN ORAL Constipation 11/22/18 18:57 12/22/18 18:56 Potassium Chloride (K-Dur) 20 meq TWICE A DAY GT 11/25/18 18:00 12/25/18 17:59 11/25/18 17:59 Trimethoprim/ Sulfamethoxazole (Bactrim-DS) 20 ml Q12HR GT 11/22/18 21:00 11/27/18 11:36 11/25/18 20:03 Vancomycin HCl (Vanco rx to dose) 1 ea DAILY PRN MISC Per rx protocol 11/23/18 09:00 12/22/18 08:59 Vancomycin HCl 1 gm/Dextrose 275 ml @ 183.708 mls/hr Q12HR@1100,2300 IVPB 11/22/18 23:00 11/29/18 22:59 11/25/18 10:41 Last 24 Hour Vital Signs Date Time Temp Pulse Resp B/P (MAP) Pulse Ox O2 Delivery O2 Flow Rate FiO2 11/25/18 20:34 98.4 11/25/18 20:31 100 Nasal Cannula 2.0 28 11/25/18 20:30 95 20 100 Nasal Cannula 2.0 28 11/25/18 20:00 Nasal Cannula 3.0 11/25/18 16:00 97.7 98 20 115/67 (83) 100 11/25/18 16:00 Nasal Cannula 3.0 11/25/18 15:58 94 11/25/18 12:00 88 11/25/18 12:00 Nasal Cannula 3.0 11/25/18 12:00 99.1 102 19 90/55 (67) 100 11/25/18 08:00 104 11/25/18 08:00 Nasal Cannula 3.0 11/25/18 08:00 98.6 94 20 99/57 (71) 100 11/25/18 04:00 3.0 11/25/18 04:00 Nasal Cannula 3.0 11/25/18 03:58 97.5 106 22 98/53 (68) 100 11/25/18 03:56 109 11/25/18 00:00 Nasal Cannula 3.0 11/25/18 00:00 98.2 95 20 101/68 (79) 100 11/25/18 00:00 135 11/25/18 00:00 3.0 11/24/18 20:00 99.1 103 20 92/60 (71) 100 11/24/18 20:00 3.0 11/24/18 20:00 122 11/24/18 20:00 Nasal Cannula 3.0 11/24/18 19:11 99 20 98 Nasal Cannula 2.0 28 11/24/18 19:11 98 Nasal Cannula 2.0 28 11/24/18 16:00 112 11/24/18 16:00 Nasal Cannula 3.0 11/24/18 16:00 99.0 118 20 115/64 (81) 100 11/24/18 12:00 92 11/24/18 12:00 98.1 102 19 92/46 (61) 100 11/24/18 12:00 Nasal Cannula 3.0 11/24/18 08:00 97.8 97 20 97/53 (68) 100 11/24/18 08:00 114 11/24/18 08:00 Nasal Cannula 3.0 11/24/18 04:00 97.7 92 20 118/60 (79) 100 11/24/18 04:00 Nasal Cannula 3.0 11/24/18 03:26 119 11/24/18 00:00 113 11/24/18 00:00 97.7 102 20 113/60 (77) 100 11/24/18 00:00 Nasal Cannula 3.0 Intake and Output 11/24/18 11/25/18 19:00 07:00 Intake Total 1315.000 ml 1622.416 ml Output Total 2000 ml 1740 ml Balance -685.000 ml -117.584 ml Free Water 150 ml 100 ml IV Total 505.000 ml 862.416 ml Tube Feeding 660 ml 660 ml Output Urine Total 2000 ml 1740 ml Labs Test 11/23/18 04:50 11/24/18 05:35 11/24/18 06:30 11/25/18 04:45 White Blood Count 11.3 K/UL (4.8-10.8) 11.7 K/UL (4.8-10.8) 10.2 K/UL (4.8-10.8) Red Blood Count 2.83 M/UL (4.70-6.10) 2.85 M/UL (4.70-6.10) 2.76 M/UL (4.70-6.10) Hemoglobin 9.0 G/DL (14.2-18.0) 9.0 G/DL (14.2-18.0) 8.6 G/DL (14.2-18.0) Hematocrit 26.5 % (42.0-52.0) 26.6 % (42.0-52.0) 25.9 % (42.0-52.0) Mean Corpuscular Volume 94 FL (80-99) 93 FL (80-99) 94 FL (80-99) Mean Corpuscular Hemoglobin 31.9 PG (27.0-31.0) 31.6 PG (27.0-31.0) 31.2 PG (27.0-31.0) Mean Corpuscular Hemoglobin Concent 33.9 G/DL (32.0-36.0) 33.8 G/DL (32.0-36.0) 33.2 G/DL (32.0-36.0) Red Cell Distribution Width 17.4 % (11.6-14.8) 17.0 % (11.6-14.8) 16.6 % (11.6-14.8) Platelet Count 219 K/UL (150-450) 293 K/UL (150-450) 288 K/UL (150-450) Mean Platelet Volume 4.3 FL (6.5-10.1) 5.1 FL (6.5-10.1) 5.0 FL (6.5-10.1) Neutrophils (%) (Auto) % (45.0-75.0) % (45.0-75.0) 82.0 % (45.0-75.0) Lymphocytes (%) (Auto) % (20.0-45.0) % (20.0-45.0) 11.6 % (20.0-45.0) Monocytes (%) (Auto) % (1.0-10.0) % (1.0-10.0) 5.7 % (1.0-10.0) Eosinophils (%) (Auto) % (0.0-3.0) % (0.0-3.0) 0.1 % (0.0-3.0) Basophils (%) (Auto) % (0.0-2.0) % (0.0-2.0) 0.6 % (0.0-2.0) Differential Total Cells Counted 100 100 Neutrophils % (Manual) 84 % (45-75) 84 % (45-75) Lymphocytes % (Manual) 6 % (20-45) 9 % (20-45) Monocytes % (Manual) 10 % (1-10) 7 % (1-10) Eosinophils % (Manual) 0 % (0-3) 0 % (0-3) Basophils % (Manual) 0 % (0-2) 0 % (0-2) Band Neutrophils 0 % (0-8) 0 % (0-8) Platelet Estimate Adequate Adequate Platelet Morphology Normal Normal Anisocytosis 1+ 1+ Sodium Level 131 MMOL/L (136-145) 134 MMOL/L (136-145) 139 MMOL/L (136-145) Potassium Level 4.0 MMOL/L (3.5-5.1) 3.6 MMOL/L (3.5-5.1) 3.5 MMOL/L (3.5-5.1) Chloride Level 100 MMOL/L (98-107) 101 MMOL/L (98-107) 103 MMOL/L (98-107) Carbon Dioxide Level 24 MMOL/L (21-32) 26 MMOL/L (21-32) 28 MMOL/L (21-32) Anion Gap 7 mmol/L (5-15) 7 mmol/L (5-15) 8 mmol/L (5-15) Blood Urea Nitrogen 10 mg/dL (7-18) 11 mg/dL (7-18) 13 mg/dL (7-18) Creatinine 0.5 MG/DL (0.55-1.30) 0.6 MG/DL (0.55-1.30) 0.5 MG/DL (0.55-1.30) Estimat Glomerular Filtration Rate mL/min (>60) mL/min (>60) mL/min (>60) Glucose Level 119 MG/DL (74-106) 118 MG/DL (74-106) 135 MG/DL (74-106) Uric Acid 2.1 MG/DL (2.6-7.2) 1.5 MG/DL (2.6-7.2) Calcium Level 7.5 MG/DL (8.5-10.1) 7.7 MG/DL (8.5-10.1) 7.9 MG/DL (8.5-10.1) Phosphorus Level 3.0 MG/DL (2.5-4.9) 3.2 MG/DL (2.5-4.9) Magnesium Level 1.9 MG/DL (1.8-2.4) 1.4 MG/DL (1.8-2.4) Total Bilirubin 0.4 MG/DL (0.2-1.0) 0.5 MG/DL (0.2-1.0) 0.3 MG/DL (0.2-1.0) Aspartate Amino Transf (AST/SGOT) 21 U/L (15-37) 17 U/L (15-37) 16 U/L (15-37) Alanine Aminotransferase (ALT/SGPT) 29 U/L (12-78) 32 U/L (12-78) 26 U/L (12-78) Alkaline Phosphatase 90 U/L (46-116) 91 U/L (46-116) 88 U/L (46-116) C-Reactive Protein, Quantitative 10.4 mg/dL (0.00-0.90) Total Protein 4.8 G/DL (6.4-8.2) 5.2 G/DL (6.4-8.2) 4.8 G/DL (6.4-8.2) Albumin 1.1 G/DL (3.4-5.0) 1.2 G/DL (3.4-5.0) 1.1 G/DL (3.4-5.0) Globulin 3.7 g/dL 4.0 g/dL 3.7 g/dL Albumin/Globulin Ratio 0.3 (1.0-2.7) 0.3 (1.0-2.7) 0.3 (1.0-2.7) Hypochromasia 2+ Spherocytes 1+ Pro-B-Type Natriuretic Peptide 282 pg/mL (0-125) Urine Random Sodium 117 mmol/L (20-110) Height (Feet): 5 Height (Inches): 7.00 Weight (Pounds): 161 Objective PE General Appearance: WD/WN Lines, tubes and drains: central line HEENT: normocephalic, atraumatic Neck: non-tender, normal alignment Breasts: no masses Cardiovascular/Chest: normal peripheral pulses, normal rate, regular rhythm Abdomen: normal bowel sounds, non tender ++ peg Genitourinary/Rectal: normal genital exam, heme negative stool Extremities: normal range of motion Skin Exam: normal pigmentation Neurologic: telecom coordinator II-XII grossly normal Avery Giang MD Nov 25, 2018 21:34
--- NOTE | 2018-11-26 02:57 | NUR ---
HAND-OFF: Report given to Kelsey DUNN, pt. remains stable and no signs of distress noted.
[2018-11-26 04:00] VITALS: BP 116/61
[2018-11-26 05:00] LABS: BASOPHILS % (AUTO) 0.6 % (0.0-2.0); EOSINOPHILS % (AUTO) 0.8 % (0.0-3.0); HEMATOCRIT 26.4 % (42.0-52.0); HEMOGLOBIN 8.9 G/DL (14.2-18.0); LYMPHOCYTES % (AUTO) 11.7 % (20.0-45.0); MEAN CORPUSCULAR VOLUME 96 FL (80-99); MONOCYTES % (AUTO) 5.5 % (1.0-10.0); NEUTROPHILS % (AUTO) 81.4 % (45.0-75.0); PLATELET COUNT 310 K/UL (150-450); RED BLOOD COUNT 2.75 M/UL (4.70-6.10); WHITE BLOOD COUNT 11.6 K/UL (4.8-10.8)
[2018-11-26] MEDS: Zosyn 3.375gm q8h **Extended infusion IVPB SCH ×6 (05:04→21:42)
[2018-11-26 05:17] LABS: ANION GAP 5 mmol/L (5-15); BLOOD UREA NITROGEN 18 mg/dL (7-18); CALCIUM 8.1 MG/DL (8.5-10.1); CARBON DIOXIDE 29 MMOL/L (21-32); CHLORIDE 104 MMOL/L (98-107); CREATININE 0.6 MG/DL (0.55-1.30); POTASSIUM 4.3 MMOL/L (3.5-5.1); SODIUM 138 MMOL/L (136-145)
--- NOTE | 2018-11-26 07:10 | NUR ---
HAND-OFF: Report given to MONA Chong.
--- NOTE | 2018-11-26 07:11 | NUR ---
NURSE NOTES: RECEIVED PATIENT FROM Rick SMITH RN. PATIENT IS LYING IN BED, NONVERBAL BUT ABLE TO OPEN EYES. HOOKED TO TECHNOLOGY ADVISOR. ON 3L NC. NO SIGNS OF DISTRESS OF THE MOMENT. GT IN PLACE WITH GTF RUNNING JEVITY 1.2 AT 55ML/HR. NOTED BUNDY CONNECTED TO BAG, PATENT AND DRAINING URINE. SKIN ALTERATION NOTED. P Addendum: 11/26/18 at 0745 by TRICE TO RN NURSE NOTES: DUPLICATE
--- NOTE | 2018-11-26 07:11 | NUR ---
NURSE NOTES: RECEIVED PATIENT FROM Rick SMITH RN. PATIENT IS LYING IN BED, NONVERBAL BUT ABLE TO OPEN EYES. HOOKED TO WINDOW DECORATOR. ON 3L NC. NO SIGNS OF DISTRESS OF THE MOMENT. GT IN PLACE WITH GTF RUNNING JEVITY 1.2 AT 55ML/HR. NOTED BUNDY CONNECTED TO BAG, PATENT AND DRAINING URINE. SKIN ALTERATION NOTED. ON OVERLAY MATTRESS. NOTED SWELLING ON L UPPER EXTREMITIES AN R FA/HAND. IV'S ON L FA G22 AND G18. CALL LIGHT WITHIN REACH. SIDE RAILS UP. BED AT LOWEST POSITION. WILL CONTINUE TO MONITOR.
[2018-11-26 08:00] VITALS: BP 104/61
--- NOTE | 2018-11-26 09:01 | General Progress Note ---
Assessment/Plan Problem List: (1) Acute DVT (deep venous thrombosis) ICD Codes: I82.409 - Acute embolism and thrombosis of unspecified deep veins of unspecified lower extremity SNOMED: 724131964242298 (2) UTI (urinary tract infection) ICD Codes: N39.0 - Urinary tract infection, site not specified SNOMED: 22308621, 831601739 Qualifiers: Qualified Codes: N30.00 - Acute cystitis without hematuria (3) Anemia, chronic disease ICD Codes: D63.8 - Anemia in other chronic diseases classified elsewhere SNOMED: 421323653, 490596969 (4) Parkinson disease ICD Codes: G20 - Parkinson's disease SNOMED: 97022316 (5) Alzheimer's dementia ICD Codes: G30.9 - Alzheimer's disease, unspecified; F02.80 - Dementia in other diseases classified elsewhere without behavioral disturbance SNOMED: 36606442 (6) COPD (chronic obstructive pulmonary disease) ICD Codes: J44.9 - Chronic obstructive pulmonary disease, unspecified SNOMED: 89062992 Status: unchanged Assessment/Plan: o2 pulm tx abx pt diet heme f/u cbc bmp am aru eval Subjective Constitutional: Reports: weakness Allergies: Coded Allergies: No Known Allergies (Unverified , 11/18/18) All Systems: reviewed and negative except above Subjective o2nc sleepy Objective Last 24 Hour Vital Signs Date Time Temp Pulse Resp B/P (MAP) Pulse Ox O2 Delivery O2 Flow Rate FiO2 11/26/18 04:00 3.0 11/26/18 04:00 Nasal Cannula 3.0 11/26/18 04:00 96.6 87 20 116/61 (79) 100 11/26/18 03:25 92 11/26/18 00:00 3.0 11/26/18 00:00 Nasal Cannula 3.0 11/26/18 00:00 97 11/25/18 23:33 97.3 91 22 114/72 (86) 100 11/25/18 20:34 98.4 11/25/18 20:31 100 Nasal Cannula 2.0 28 11/25/18 20:30 95 20 100 Nasal Cannula 2.0 28 11/25/18 20:00 3.0 11/25/18 20:00 102 11/25/18 20:00 Nasal Cannula 3.0 11/25/18 20:00 99.7 100 20 97/67 (77) 100 11/25/18 16:00 97.7 98 20 115/67 (83) 100 11/25/18 16:00 Nasal Cannula 3.0 11/25/18 15:58 94 11/25/18 12:00 88 11/25/18 12:00 Nasal Cannula 3.0 11/25/18 12:00 99.1 102 19 90/55 (67) 100 Intake and Output 11/25/18 11/26/18 19:00 07:00 Intake Total 1400.000 ml 1337.416 ml Output Total 1400 ml 300 ml Balance 0 ml 1037.416 ml Free Water 300 ml 200 ml IV Total 440.000 ml 477.416 ml Tube Feeding 660 ml 660 ml Output Urine Total 1400 ml 300 ml Laboratory Tests 11/26/18 04:00: White Blood Count 11.6H, Red Blood Count 2.75L, Hemoglobin 8.9L, Hematocrit 26.4L, Mean Corpuscular Volume 96, Mean Corpuscular Hemoglobin 32.3H, Mean Corpuscular Hemoglobin Concent 33.7, Red Cell Distribution Width 17.0H, Platelet Count 310, Mean Platelet Volume 5.2L, Neutrophils (%) (Auto) 81.4H, Lymphocytes (%) (Auto) 11.7L, Monocytes (%) (Auto) 5.5, Eosinophils (%) (Auto) 0.8, Basophils (%) (Auto) 0.6, Sodium Level 138, Potassium Level 4.3, Chloride Level 104, Carbon Dioxide Level 29, Anion Gap 5, Blood Urea Nitrogen 18, Creatinine 0.6, Estimat Glomerular Filtration Rate , Glucose Level 116H, Calcium Level 8.1L, Magnesium Level 1.9 Height (Feet): 5 Height (Inches): 7.00 Weight (Pounds): 160 General Appearance: lethargic EENT: normal ENT inspection Neck: normal alignment Cardiovascular: normal peripheral pulses, normal rate, regular rhythm Respiratory/Chest: chest wall non-tender, lungs clear, normal breath sounds Abdomen: normal bowel sounds, non tender, soft Extremities: normal inspection Edema: no edema noted Arm (L), no edema noted Arm (R), no edema noted Leg (L), no edema noted Leg (R), no edema noted Pedal (L), no edema noted Pedal (R), no edema noted Generalized Neurologic: motor weakness Skin: normal pigmentation, warm/dry Abdullahi Gonzalez DO Nov 26, 2018 09:01
--- NOTE | 2018-11-26 09:15 | Nephrology Progress Note ---
Assessment/Plan Problem List: (1) Hyponatremia Assessment: Na higher (2) UTI (urinary tract infection) (3) Anemia, chronic disease (4) Alzheimer's dementia (5) Parkinson disease Assessment Low Na likely due to hypotonic IV solution administration other conditions Pneumonia UTI, has grewal bacteremia sacral decub dementia HTN Sz disorder Parkinsons severe Anemia Plan previously Trial of lasix and 3% Saline led to higher Na stop HypoTonic IV solution Urine studies Transfused Per orders roberto carlos khalil Subjective ROS Limited/Unobtainable: No Constitutional: Reports: malaise Objective Objective Last 24 Hour Vital Signs Date Time Temp Pulse Resp B/P (MAP) Pulse Ox O2 Delivery O2 Flow Rate FiO2 11/26/18 08:00 97.7 84 20 104/61 (75) 100 11/26/18 08:00 92 11/26/18 04:00 3.0 11/26/18 04:00 Nasal Cannula 3.0 11/26/18 04:00 96.6 87 20 116/61 (79) 100 11/26/18 03:25 92 11/26/18 00:00 3.0 11/26/18 00:00 Nasal Cannula 3.0 11/26/18 00:00 97 11/25/18 23:33 97.3 91 22 114/72 (86) 100 11/25/18 20:34 98.4 11/25/18 20:31 100 Nasal Cannula 2.0 28 11/25/18 20:30 95 20 100 Nasal Cannula 2.0 28 11/25/18 20:00 3.0 11/25/18 20:00 102 11/25/18 20:00 Nasal Cannula 3.0 11/25/18 20:00 99.7 100 20 97/67 (77) 100 11/25/18 16:00 97.7 98 20 115/67 (83) 100 11/25/18 16:00 Nasal Cannula 3.0 11/25/18 15:58 94 11/25/18 12:00 88 11/25/18 12:00 Nasal Cannula 3.0 11/25/18 12:00 99.1 102 19 90/55 (67) 100 Intake and Output 11/25/18 11/26/18 19:00 07:00 Intake Total 1400.000 ml 1337.416 ml Output Total 1400 ml 300 ml Balance 0 ml 1037.416 ml Free Water 300 ml 200 ml IV Total 440.000 ml 477.416 ml Tube Feeding 660 ml 660 ml Output Urine Total 1400 ml 300 ml Laboratory Tests 11/26/18 04:00: White Blood Count 11.6H, Red Blood Count 2.75L, Hemoglobin 8.9L, Hematocrit 26.4L, Mean Corpuscular Volume 96, Mean Corpuscular Hemoglobin 32.3H, Mean Corpuscular Hemoglobin Concent 33.7, Red Cell Distribution Width 17.0H, Platelet Count 310, Mean Platelet Volume 5.2L, Neutrophils (%) (Auto) 81.4H, Lymphocytes (%) (Auto) 11.7L, Monocytes (%) (Auto) 5.5, Eosinophils (%) (Auto) 0.8, Basophils (%) (Auto) 0.6, Sodium Level 138, Potassium Level 4.3, Chloride Level 104, Carbon Dioxide Level 29, Anion Gap 5, Blood Urea Nitrogen 18, Creatinine 0.6, Estimat Glomerular Filtration Rate , Glucose Level 116H, Calcium Level 8.1L, Magnesium Level 1.9 Height (Feet): 5 Height (Inches): 7.00 Weight (Pounds): 160 General Appearance: no apparent distress Objective no change Kendall Trinidad MD Nov 26, 2018 09:15
[2018-11-26] MEDS: Donepezil 10mg tab GT SCH (09:30)
[2018-11-26] MEDS: Levodopa/Carbidopa 25/100 tab GT SCH ×3 (09:30→17:25)
[2018-11-26] MEDS: Bactrim Susp 20ml GT SCH ×2 (09:30→20:40)
--- NOTE | 2018-11-26 09:43 | NUR ---
DISCHARGE PLANNING: NOTE CLINICALS FAXED TO [facility] >> ROOM 36C CLEARANCE REQUESTED FROM ID, PULM, AND HEME AWAITING RESPONSE Addendum: 11/26/18 at 1059 by Jessica Faulkner CLEARED BY HEME ID HAS NOT CLEARED THIS PATIENT. MRSA CANNOT BE COLONIZED. ID STILL CONSIDERS ACTIVE. 2D ECHO REVEALED NO VEGETATIONS. FLORINA PENDING. BCx ON 11/19 NEG AND REMAIN NEG. 11/18 BCx REVEAL MRSA >>> SEE ID NOTE AWAITING HAJA
--- NOTE | 2018-11-26 10:39 | NUR ---
HAND-OFF: Report given to Solomon Leonard RN .
--- NOTE | 2018-11-26 10:40 | NUR ---
NURSE NOTES: Received report from MONA Chong. Observed patient in bed awake, opens eyes, but nonverbal. On O2 3L via NC, no acute respiratory distress noted. GT intact and patent, with infusing feeding at prescribed rate. HOB elevated. Bradley catheter intact and draining well to gravity. Left FA 18g IV intact and patent. No s/s of pain/discomfort noted at this time. Notified Dr. Gonzalez and Dr. Giang regarding results of venous duplex on bilateral extremities, awaiting for call back. Bed locked, alarmed, and in lowest position, padded side rails up x3, and call light left within reach. Will continue with plan of care and monitor patient.
--- NOTE | 2018-11-26 10:41 | GI Progress Note ---
Assessment/Plan Problems: (1) Parkinson disease ICD Codes: G20 - Parkinson's disease SNOMED: 41894833 (2) Alzheimer's dementia ICD Codes: G30.9 - Alzheimer's disease, unspecified; F02.80 - Dementia in other diseases classified elsewhere without behavioral disturbance SNOMED: 42884794 (3) Feeding by G-tube ICD Codes: Z93.1 - Gastrostomy status SNOMED: 145674861, 850563496, 751053350 (4) Anemia, chronic disease ICD Codes: D63.8 - Anemia in other chronic diseases classified elsewhere SNOMED: 537859641, 059457032 Status: unchanged Status Narrative Discussed with Dr. Dallas Assessment/Plan s/p colonoscopy SUMMARY OF FINDINGS: 1. Fair colonic prep. 2. Diverticulosis most probably the source of bleeding. 3. No evidence of any acute bleeding at this time. 4. Internal hemorrhoids. RECOMMENDATIONS: Resume G-tube feeding. Okay to anticoagulate from gastrointestinal standpoint at this time given there is no active bleeding. Treat for hemorrhoids if become symptomatic. prn transfusions ppi follow labs The patient was seen and examined at bedside and all new and available data was reviewed in the patients chart. I agree with the above findings, impression and plan. (Patient seen earlier today. Signature stamp does not reflect patient encounter time.). - Deacon Dallas MD Subjective Subjective limited Objective Last 24 Hour Vital Signs Date Time Temp Pulse Resp B/P (MAP) Pulse Ox O2 Delivery O2 Flow Rate FiO2 11/26/18 08:00 97.7 84 20 104/61 (75) 100 11/26/18 08:00 Nasal Cannula 3.0 11/26/18 08:00 92 11/26/18 07:36 100 Nasal Cannula 2.0 28 11/26/18 07:36 87 20 100 Nasal Cannula 2.0 28 11/26/18 04:00 3.0 11/26/18 04:00 Nasal Cannula 3.0 11/26/18 04:00 96.6 87 20 116/61 (79) 100 11/26/18 03:25 92 11/26/18 00:00 3.0 11/26/18 00:00 Nasal Cannula 3.0 11/26/18 00:00 97 11/25/18 23:33 97.3 91 22 114/72 (86) 100 11/25/18 20:34 98.4 11/25/18 20:31 100 Nasal Cannula 2.0 28 11/25/18 20:30 95 20 100 Nasal Cannula 2.0 28 11/25/18 20:00 3.0 11/25/18 20:00 102 11/25/18 20:00 Nasal Cannula 3.0 11/25/18 20:00 99.7 100 20 97/67 (77) 100 11/25/18 16:00 97.7 98 20 115/67 (83) 100 11/25/18 16:00 Nasal Cannula 3.0 11/25/18 15:58 94 11/25/18 12:00 88 11/25/18 12:00 Nasal Cannula 3.0 11/25/18 12:00 99.1 102 19 90/55 (67) 100 Intake and Output 11/25/18 11/26/18 19:00 07:00 Intake Total 1400.000 ml 1337.416 ml Output Total 1400 ml 300 ml Balance 0 ml 1037.416 ml Free Water 300 ml 200 ml IV Total 440.000 ml 477.416 ml Tube Feeding 660 ml 660 ml Output Urine Total 1400 ml 300 ml Laboratory Tests Test 11/26/18 04:00 White Blood Count 11.6 K/UL (4.8-10.8) H Red Blood Count 2.75 M/UL (4.70-6.10) L Hemoglobin 8.9 G/DL (14.2-18.0) L Hematocrit 26.4 % (42.0-52.0) L Mean Corpuscular Volume 96 FL (80-99) Mean Corpuscular Hemoglobin 32.3 PG (27.0-31.0) H Mean Corpuscular Hemoglobin Concent 33.7 G/DL (32.0-36.0) Red Cell Distribution Width 17.0 % (11.6-14.8) H Platelet Count 310 K/UL (150-450) Mean Platelet Volume 5.2 FL (6.5-10.1) L Neutrophils (%) (Auto) 81.4 % (45.0-75.0) H Lymphocytes (%) (Auto) 11.7 % (20.0-45.0) L Monocytes (%) (Auto) 5.5 % (1.0-10.0) Eosinophils (%) (Auto) 0.8 % (0.0-3.0) Basophils (%) (Auto) 0.6 % (0.0-2.0) Sodium Level 138 MMOL/L (136-145) Potassium Level 4.3 MMOL/L (3.5-5.1) Chloride Level 104 MMOL/L (98-107) Carbon Dioxide Level 29 MMOL/L (21-32) Anion Gap 5 mmol/L (5-15) Blood Urea Nitrogen 18 mg/dL (7-18) Creatinine 0.6 MG/DL (0.55-1.30) Estimat Glomerular Filtration Rate mL/min (>60) Glucose Level 116 MG/DL (74-106) H Calcium Level 8.1 MG/DL (8.5-10.1) L Magnesium Level 1.9 MG/DL (1.8-2.4) Height (Feet): 5 Height (Inches): 7.00 Weight (Pounds): 160 Sohan Kohli NP Nov 26, 2018 10:41
--- NOTE | 2018-11-26 11:23 | Diagnostic Imaging Report ---
APPROVED REPORT CPT Code: 14067 Present Symptoms Upper Extremity Edema: 2D Evaluation LEFT UPPER EXTREMITY: Venous imaging reveals acute thrombus in the proximal brachial vein. . The remaining segments are within normal limits. There is no evidence of thrombus within the internal jugular, subclavian, mid and distal brachial veins.The cephalic and basilic veins are also patent. Doppler indicates normal spontaneous flow within these venous segments. RIGHT UPPER EXTREMITY: Imaging reveals patency of the internal jugular, subclavian, axillary and brachial veins.The basilic vein is also patent. Doppler indicates normal spontaneous flow within these venous segments. Imaging reveals chronic thrombus in right cephalic vein at upper arm level. MONA Chong was notified of abnormal results at 1030 hours.
--- NOTE | 2018-11-26 11:38 | Pulmonology Progress Note ---
Assessment/Plan Problems: (1) HCAP (healthcare-associated pneumonia) (2) Sepsis (3) Acute DVT (deep venous thrombosis) (4) Seizures (5) COPD (chronic obstructive pulmonary disease) (6) Anemia, chronic disease (7) Feeding by G-tube (8) Parkinson disease (9) Alzheimer's dementia Assessment/Plan heart rate better s/p IVC filter tolerating Gtube colonoscopy not done yet continue abx check cultures Needs FLORINA check electrolytes off iv fluids check h/h after transfusion Subjective ROS Limited/Unobtainable: No Constitutional: Reports: no symptoms HEENT: Repors: no symptoms Respiratory: Reports: no symptoms Allergies: Coded Allergies: No Known Allergies (Unverified , 11/18/18) Objective Last 24 Hour Vital Signs Date Time Temp Pulse Resp B/P (MAP) Pulse Ox O2 Delivery O2 Flow Rate FiO2 11/26/18 08:00 97.7 84 20 104/61 (75) 100 11/26/18 08:00 Nasal Cannula 3.0 11/26/18 08:00 92 11/26/18 07:36 100 Nasal Cannula 2.0 28 11/26/18 07:36 87 20 100 Nasal Cannula 2.0 28 11/26/18 04:00 3.0 11/26/18 04:00 Nasal Cannula 3.0 11/26/18 04:00 96.6 87 20 116/61 (79) 100 11/26/18 03:25 92 11/26/18 00:00 3.0 11/26/18 00:00 Nasal Cannula 3.0 11/26/18 00:00 97 11/25/18 23:33 97.3 91 22 114/72 (86) 100 11/25/18 20:34 98.4 11/25/18 20:31 100 Nasal Cannula 2.0 28 11/25/18 20:30 95 20 100 Nasal Cannula 2.0 28 11/25/18 20:00 3.0 11/25/18 20:00 102 11/25/18 20:00 Nasal Cannula 3.0 11/25/18 20:00 99.7 100 20 97/67 (77) 100 11/25/18 16:00 97.7 98 20 115/67 (83) 100 11/25/18 16:00 Nasal Cannula 3.0 11/25/18 15:58 94 11/25/18 12:00 88 11/25/18 12:00 Nasal Cannula 3.0 11/25/18 12:00 99.1 102 19 90/55 (67) 100 Intake and Output 11/25/18 11/26/18 19:00 07:00 Intake Total 1400.000 ml 1364.916 ml Output Total 1400 ml 300 ml Balance 0 ml 1064.916 ml Free Water 300 ml 200 ml IV Total 440.000 ml 504.916 ml Tube Feeding 660 ml 660 ml Output Urine Total 1400 ml 300 ml General Appearance: WD/WN HEENT: normocephalic, atraumatic Respiratory/Chest: chest wall non-tender, lungs clear, no respiratory distress Abdomen: soft, non tender, no organomegaly Extremities: no cyanosis Skin: no lesions Laboratory Tests 11/26/18 04:00: White Blood Count 11.6H, Red Blood Count 2.75L, Hemoglobin 8.9L, Hematocrit 26.4L, Mean Corpuscular Volume 96, Mean Corpuscular Hemoglobin 32.3H, Mean Corpuscular Hemoglobin Concent 33.7, Red Cell Distribution Width 17.0H, Platelet Count 310, Mean Platelet Volume 5.2L, Neutrophils (%) (Auto) 81.4H, Lymphocytes (%) (Auto) 11.7L, Monocytes (%) (Auto) 5.5, Eosinophils (%) (Auto) 0.8, Basophils (%) (Auto) 0.6, Sodium Level 138, Potassium Level 4.3, Chloride Level 104, Carbon Dioxide Level 29, Anion Gap 5, Blood Urea Nitrogen 18, Creatinine 0.6, Estimat Glomerular Filtration Rate , Glucose Level 116H, Calcium Level 8.1L, Magnesium Level 1.9 Current Medications Medications (Trade) Dose Ordered Sig/Pauline Route PRN Reason Start Time Stop Time Status Last Admin Dose Admin Acetaminophen (Tylenol) 650 mg Q4H PRN GT T>100.5 11/22/18 18:55 12/22/18 18:54 11/25/18 20:04 Albuterol/ Ipratropium (Albuterol/ Ipratropium) 3 ml Q4H PRN HHN Shortness of Breath 11/22/18 18:56 11/27/18 18:55 Carbidopa/Levodopa (Sinemet 25/100) 1 tab THREE TIMES A DAY GT 11/23/18 09:00 12/18/18 18:29 11/26/18 09:30 Clonidine HCl (Catapres Tab) 0.1 mg Q4H PRN GT sbp>170mmHg 11/22/18 18:55 12/22/18 18:54 Dextrose (Dextrose 50%) 25 ml Q30M PRN IV Hypoglycemia 11/22/18 19:15 12/18/18 07:44 Dextrose (Dextrose 50%) 50 ml Q30M PRN IV Hypoglycemia 11/22/18 19:15 12/18/18 07:44 Donepezil HCl (Aricept) 10 mg DAILY GT 11/23/18 09:00 12/18/18 08:59 11/26/18 09:30 Lorazepam (Ativan) 1 mg Q6H PRN GT For Anxiety 11/22/18 18:56 11/29/18 18:55 Mirtazapine (Remeron) 15 mg BEDTIME GT 11/22/18 21:00 12/18/18 20:59 11/25/18 20:04 Morphine Sulfate (Morphine Sulfate) 2 mg Q4H PRN IVP Severe Pain (Pain Scale 7-10) 11/22/18 18:56 11/29/18 18:55 Ondansetron HCl (Zofran) 4 mg Q6H PRN IVP Nausea & Vomiting 11/22/18 18:56 12/22/18 18:55 Piperacillin Sod/ Tazobactam Sod 3.375 gm/Sodium Chloride 110 ml @ 27.5 mls/hr EVERY 8 HOURS IVPB 11/23/18 16:00 11/28/18 15:59 11/26/18 05:04 Polyethylene Glycol (Miralax) 17 gm DAILYPRN PRN ORAL Constipation 11/22/18 18:57 12/22/18 18:56 Potassium Chloride (K-Dur) 20 meq TWICE A DAY GT 11/25/18 18:00 12/25/18 17:59 11/26/18 09:30 Trimethoprim/ Sulfamethoxazole (Bactrim-DS) 20 ml Q12HR GT 11/22/18 21:00 11/27/18 11:36 11/26/18 09:30 Vancomycin HCl (Vanco rx to dose) 1 ea DAILY PRN MISC Per rx protocol 11/23/18 09:00 12/22/18 08:59 Vancomycin HCl 1 gm/Dextrose 275 ml @ 183.708 mls/hr Q12HR@1100,2300 IVPB 11/22/18 23:00 11/29/18 22:59 11/25/18 22:15 David Carrasquillo MD Nov 26, 2018 11:38
--- NOTE | 2018-11-26 11:40 | NUR ---
NURSE NOTES: OK to use peripheral IV line on left arm per Dr Carrasquillo.
[2018-11-26] MEDS: Vancomycin 1 GM in D5W 275 ML IVPB SCH ×2 (11:51→22:37)
[2018-11-26 12:00] VITALS: BP 97/55
[2018-11-26] MEDS: Eliquis 5mg tablet GT SCH ×2 (12:33→20:40)
--- NOTE | 2018-11-26 13:03 | Surgery Progress Note ---
Surgery Progress Note Subjective Additional Comments no acute events. exam stable. labs noted Objective Last 24 Hour Vital Signs Date Time Temp Pulse Resp B/P (MAP) Pulse Ox O2 Delivery O2 Flow Rate FiO2 11/26/18 12:00 Nasal Cannula 3.0 11/26/18 12:00 97.5 100 18 97/55 (69) 100 11/26/18 11:36 94 11/26/18 08:00 97.7 84 20 104/61 (75) 100 11/26/18 08:00 Nasal Cannula 3.0 11/26/18 08:00 92 11/26/18 07:36 100 Nasal Cannula 2.0 28 11/26/18 07:36 87 20 100 Nasal Cannula 2.0 28 11/26/18 04:00 3.0 11/26/18 04:00 Nasal Cannula 3.0 11/26/18 04:00 96.6 87 20 116/61 (79) 100 11/26/18 03:25 92 11/26/18 00:00 3.0 11/26/18 00:00 Nasal Cannula 3.0 11/26/18 00:00 97 11/25/18 23:33 97.3 91 22 114/72 (86) 100 11/25/18 20:34 98.4 11/25/18 20:31 100 Nasal Cannula 2.0 28 11/25/18 20:30 95 20 100 Nasal Cannula 2.0 28 11/25/18 20:00 3.0 11/25/18 20:00 102 11/25/18 20:00 Nasal Cannula 3.0 11/25/18 20:00 99.7 100 20 97/67 (77) 100 11/25/18 16:00 97.7 98 20 115/67 (83) 100 11/25/18 16:00 Nasal Cannula 3.0 11/25/18 15:58 94 I&O Intake and Output 11/25/18 11/26/18 19:00 07:00 Intake Total 1400.000 ml 1364.916 ml Output Total 1400 ml 300 ml Balance 0 ml 1064.916 ml Free Water 300 ml 200 ml IV Total 440.000 ml 504.916 ml Tube Feeding 660 ml 660 ml Output Urine Total 1400 ml 300 ml Dressing: dry Wound: clean Cardiovascular: RSR Respiratory: clear Abdomen: soft, present bowel sounds, non-distended Extremities: no cyanosis Laboratory Tests Test 11/26/18 04:00 White Blood Count 11.6 K/UL (4.8-10.8) H Red Blood Count 2.75 M/UL (4.70-6.10) L Hemoglobin 8.9 G/DL (14.2-18.0) L Hematocrit 26.4 % (42.0-52.0) L Mean Corpuscular Volume 96 FL (80-99) Mean Corpuscular Hemoglobin 32.3 PG (27.0-31.0) H Mean Corpuscular Hemoglobin Concent 33.7 G/DL (32.0-36.0) Red Cell Distribution Width 17.0 % (11.6-14.8) H Platelet Count 310 K/UL (150-450) Mean Platelet Volume 5.2 FL (6.5-10.1) L Neutrophils (%) (Auto) 81.4 % (45.0-75.0) H Lymphocytes (%) (Auto) 11.7 % (20.0-45.0) L Monocytes (%) (Auto) 5.5 % (1.0-10.0) Eosinophils (%) (Auto) 0.8 % (0.0-3.0) Basophils (%) (Auto) 0.6 % (0.0-2.0) Sodium Level 138 MMOL/L (136-145) Potassium Level 4.3 MMOL/L (3.5-5.1) Chloride Level 104 MMOL/L (98-107) Carbon Dioxide Level 29 MMOL/L (21-32) Anion Gap 5 mmol/L (5-15) Blood Urea Nitrogen 18 mg/dL (7-18) Creatinine 0.6 MG/DL (0.55-1.30) Estimat Glomerular Filtration Rate mL/min (>60) Glucose Level 116 MG/DL (74-106) H Calcium Level 8.1 MG/DL (8.5-10.1) L Magnesium Level 1.9 MG/DL (1.8-2.4) Plan Problems: (1) Decubitus skin ulcer Assessment & Plan: Pt presented on admission with multiple pressure injuries. Violaceous macular rash noted to L shoulder ,Upper L side of back and lateral L chest. L upper ext edematous with scattered petechiae. Category 2 skin tear with 10% flap loss noted to L brachial. Small amt sanguineous exudate noted. Unstageable pressure injury Sacrum . Base of wound noted to have 100% mixed slough.necrosis .Edges semi-detached and erythematous. Surrounding non- blanchable erythema without elevation in skin temp ,or induration. (L)9.5cm x (W )6.5cm. NO odor or exudate noted. Full thickness pressure injury lumbar spine in close proximity to sacral pressure injury.Base of wound pink with scattered biofilm. (L)2cm x (W)1.6cm. (+ ) maceration along borders. Periwound without erythema or induration. DTPI noted to medial L heel (L)3.2cm x (W)4.5cm. Base of fluctuant with delineated erythematous borders. Periwound fluctuant with non-blanchable erythema.Additionally, an area of stable dry eschar noted to posterior L heel(L) 0.6cm x (W)0.8cm DTPI Noted to lateral R heel. Maroon discoloration that is fluctuant within base of wound.(L)2.5cm x (W)1cm. DTPI noted to medial R heel. Base of wound fluctuant and is maroon in colour (L) 1.5cm x (W)1cm. Maroon discoloration without fluctuance or induration noted to lateral R tibia , superior but in close proximity to lateral Malleolus.(L)1.4cm x (W)0.5cm. Tx.Plan: Cleanse skin tear L brachial. (Maintain Versatel Contact layer)Apply Silvasorb Gel. Cover with Optifoam drsg. Change every 7 days and prn. Cleanse Sacral wound with Saline. Apply Therahoney. Apply Moisture Barrier Paste periwound. Cover with Optifoam drsg. Change every 3 days and prn. Cleanse wound Lumbar spine with saline. Apply Therahoney. Apply Cavilon Skin Barrier periwound. Cover with Optifoam drsg. Change every 3 days and prn. Apply Cavilon Skin Barrier to Lateral R tibia, R heel and L heel. Cover each site with Optifoam drsg. Change every 7 days and prn. APM/FERNANDEZ mattress overlay. Reposition at least every 2hours or as tolerated. Off-load heels with pillow. (2) Acute DVT (deep venous thrombosis) (3) HCAP (healthcare-associated pneumonia) (4) UTI (urinary tract infection) (5) Anemia, chronic disease (6) Sepsis Assessment & Plan: leukocytosis resolved improving trend labs cont abx appreciate ID input (7) Feeding by G-tube Assessment & Plan: DAILY ESTIMATED NEEDS: Needs based on Sepsis, wound 60.5kg 25-35 kcals/kg 5757-7423 total kcals 1.25-2 g protein/kg 76-121 g total protein 25-30 mL/kg 3988-9862 total fluid mLs NUTRITION DIAGNOSIS: 1) Increased kcal and pro needs r/t wound healing as evidenced by pt w/ sacral unstageable wound and L heel DTPI. 2) Swallowing difficulty r/t dysphagia as evidenced by pt w/ Parkinson's dz, GT dependent. ENTERAL NUTRITION RECOMMENDATIONS: Glucerna 1.2 @60ml/hr x24 hrs to provide 1440ml, 1728 kcal, 86g pro, 1159ml free H2O - As medically able, rec to start Glucerna 1.2 @20ml/hr, advance as tolerated 10ml q4-6 hrs to goal. - Flush per MD/ HOB over 30 degrees ADDITIONAL RECOMMENDATIONS: 1) Per SNF: 5'6" ht, 133 lbs wt 2) [employer]INE[employer] eval if oral grat is appropriate 3) Wound care: Add YOLI BID via GT + VIT C 250mg BID 4) Hypoglycemics prn/ niss (8) COPD (chronic obstructive pulmonary disease) (9) Alzheimer's dementia (10) Parkinson disease (11) Seizures Andrew Eugene Nov 26, 2018 13:03
--- NOTE | 2018-11-26 13:10 | NUR ---
NURSE NOTES: Hold discharge per Dr Gonzalez.
--- NOTE | 2018-11-26 14:06 | Cardiac Electrophysiology PN ---
Assessment/Plan Assessment/Plan 1. Sinus tach due to anemia and sepsis and beta danya withdrawal ( was on Metoprolol 12.5 bid at [facility]) 2. Hypertension. Echo EF 55% 3. Acute right leg DVT and Bilateral UE DVT. S/P IVC filter . Started on Eliquis [address] Mcelroy 4. Staph aureous bacteremia. On Abx by Dr. Yee who recommended FLORINA and is pending consent 5. Parkinsonism. 6. COPD. 7. UTI. 8. Anemia and rectal bleed.S/P Colonoscopy and transfusion 9. Seizure disorder. 10. S/P PEG DW RN Subjective Subjective In sinus tach. IVC filter placed. Has UE DVT also now Objective Last 24 Hour Vital Signs Date Time Temp Pulse Resp B/P (MAP) Pulse Ox O2 Delivery O2 Flow Rate FiO2 11/26/18 12:00 Nasal Cannula 3.0 11/26/18 12:00 97.5 100 18 97/55 (69) 100 11/26/18 11:36 94 11/26/18 08:00 97.7 84 20 104/61 (75) 100 11/26/18 08:00 Nasal Cannula 3.0 11/26/18 08:00 92 11/26/18 07:36 100 Nasal Cannula 2.0 28 11/26/18 07:36 87 20 100 Nasal Cannula 2.0 28 11/26/18 04:00 3.0 11/26/18 04:00 Nasal Cannula 3.0 11/26/18 04:00 96.6 87 20 116/61 (79) 100 11/26/18 03:25 92 11/26/18 00:00 3.0 11/26/18 00:00 Nasal Cannula 3.0 11/26/18 00:00 97 11/25/18 23:33 97.3 91 22 114/72 (86) 100 11/25/18 20:34 98.4 11/25/18 20:31 100 Nasal Cannula 2.0 28 11/25/18 20:30 95 20 100 Nasal Cannula 2.0 28 11/25/18 20:00 3.0 11/25/18 20:00 102 11/25/18 20:00 Nasal Cannula 3.0 11/25/18 20:00 99.7 100 20 97/67 (77) 100 11/25/18 16:00 97.7 98 20 115/67 (83) 100 11/25/18 16:00 Nasal Cannula 3.0 11/25/18 15:58 94 Intake and Output 11/25/18 11/26/18 19:00 07:00 Intake Total 1400.000 ml 1364.916 ml Output Total 1400 ml 300 ml Balance 0 ml 1064.916 ml Free Water 300 ml 200 ml IV Total 440.000 ml 504.916 ml Tube Feeding 660 ml 660 ml Output Urine Total 1400 ml 300 ml Laboratory Tests Test 11/26/18 04:00 White Blood Count 11.6 K/UL (4.8-10.8) H Red Blood Count 2.75 M/UL (4.70-6.10) L Hemoglobin 8.9 G/DL (14.2-18.0) L Hematocrit 26.4 % (42.0-52.0) L Mean Corpuscular Volume 96 FL (80-99) Mean Corpuscular Hemoglobin 32.3 PG (27.0-31.0) H Mean Corpuscular Hemoglobin Concent 33.7 G/DL (32.0-36.0) Red Cell Distribution Width 17.0 % (11.6-14.8) H Platelet Count 310 K/UL (150-450) Mean Platelet Volume 5.2 FL (6.5-10.1) L Neutrophils (%) (Auto) 81.4 % (45.0-75.0) H Lymphocytes (%) (Auto) 11.7 % (20.0-45.0) L Monocytes (%) (Auto) 5.5 % (1.0-10.0) Eosinophils (%) (Auto) 0.8 % (0.0-3.0) Basophils (%) (Auto) 0.6 % (0.0-2.0) Sodium Level 138 MMOL/L (136-145) Potassium Level 4.3 MMOL/L (3.5-5.1) Chloride Level 104 MMOL/L (98-107) Carbon Dioxide Level 29 MMOL/L (21-32) Anion Gap 5 mmol/L (5-15) Blood Urea Nitrogen 18 mg/dL (7-18) Creatinine 0.6 MG/DL (0.55-1.30) Estimat Glomerular Filtration Rate mL/min (>60) Glucose Level 116 MG/DL (74-106) H Calcium Level 8.1 MG/DL (8.5-10.1) L Magnesium Level 1.9 MG/DL (1.8-2.4) Objective HEAD AND NECK: No JVD. LUNGS: Decreased breath sounds. CARDIOVASCULAR: Regular S1 and S2 with no gallop . ABDOMEN: Soft. G-tube intact. EXTREMITIES: Upper extremity and LE edema. Earl Washington MD Nov 26, 2018 14:06
[2018-11-26] MEDS ORDERED: NS 275ml ONE (14:59)
--- NOTE | 2018-11-26 15:52 | Hematology/Onc Progress Note ---
Assessment/Plan Assessment/Plan Assessment and Recs: # Acute right leg DVT. Heparin drip DCed for rectal bleed. s/p IVC FILTER --> agree with need for this given coagulant contraindication --> appreciate gi and pulm/cc recs --> UPPER EXT DVT noted as well --> has been started on eliquis 10mg po bid x 7 days then 5mg po bid # Anemia due to GI Bleed, other causes exist, multifactorial --> Anemia workup has been reviewed, FERRITIN 831 --> No evidence of hemolysis is noted, peripheral smear has been reviewed. --> Hgb goal >7. Transfuse prn. --> Epogen or iron at this time is not particularly indicated --> Medications have been reviewed --> low threshold for gi evaluation in case has occult +--> endoscopy and colo pending --> hgb trend: 7.4-->9.0-->9-->8.6->8.9 --> Blood tx: 1 unit 11/19, # Leukocytosis due to sepsis. --> Monitor for improvement --> urine and blood cultures are both positive, mrsa positive --> IV abx per id --> trend wbc 11.6 # Sinus tach due to anemia and sepsis and beta danya withdrawal as was on Metoprolol 12.5 bid at [facility] --> per cards recs # Hypertension. Hold Metoprolol as BP is 90s. --> cloniditon per cards # S/P PEG The timing of this note does not necessarily reflect the time of the patient was seen. GREATLY APPRECIATE CONSULTATION. Subjective Constitutional: Denies: no symptoms, chills, fever, malaise, weakness, other HEENT: Denies: no symptoms, eye pain, blurred vision, tearing, double vision, ear pain, ear discharge, nose pain, nose congestion, throat pain, throat swelling, mouth pain, mouth swelling, other Cardiovascular: Denies: no symptoms, chest pain, edema, irregular heart rate, lightheadedness, palpitations, syncope, other Gastrointestinal/Abdominal: Denies: no symptoms, abdomen distended, abdominal pain, black stools, tarry stools, blood in stool, constipated, diarrhea, difficulty swallowing, nausea, poor appetite, poor fluid intake, rectal bleeding , vomiting, other Neurologic/Psychiatric: Denies: no symptoms, anxiety, depressed, emotional problems, headache, numbness, paresthesia, pre-existing deficit, seizure, tingling, tremors, weakness, other Hematologic/Lymphatic: Denies: no symptoms, anemia, easy bleeding, easy bruising, adenopathy, other Allergies: Coded Allergies: No Known Allergies (Unverified , 11/18/18) Subjective 11/20: Colonoscopy for today. S/P 1 unit prbc. 11/21: Pt awake and nonverbal. Hgb at 7.4, blood tx ordered. 11/23: Pt no acute respiratory distress. CXR Increased bilateral lower lobe atelectasis or airspace consolidation. Underlying pneumonia may be present. Small bilateral pleural effusions. 11/24: no events, no f/c noted, no bleeding, anemia panel reviewed, s/p ivc filter 11/25: No acute events, no signs of distress. DC planning 11/26: no events, no bleeding, noted to have b/l upper ext dvt, acute started on elqiuis Objective Objective Current Medications Medications (Trade) Dose Ordered Sig/Pauline Route PRN Reason Start Time Stop Time Status Last Admin Dose Admin Acetaminophen (Tylenol) 650 mg Q4H PRN GT T>100.5 11/22/18 18:55 12/22/18 18:54 11/25/18 20:04 Albuterol/ Ipratropium (Albuterol/ Ipratropium) 3 ml Q4H PRN HHN Shortness of Breath 11/22/18 18:56 11/27/18 18:55 Apixaban (Eliquis) 5 mg BID GT 12/03/18 09:00 01/02/19 08:59 Apixaban (Eliquis) 10 mg BID GT 11/26/18 12:00 12/02/18 18:01 11/26/18 12:33 Carbidopa/Levodopa (Sinemet 25/100) 1 tab THREE TIMES A DAY GT 11/23/18 09:00 12/18/18 18:29 11/26/18 12:32 Clonidine HCl (Catapres Tab) 0.1 mg Q4H PRN GT sbp>170mmHg 11/22/18 18:55 12/22/18 18:54 Dextrose (Dextrose 50%) 25 ml Q30M PRN IV Hypoglycemia 11/22/18 19:15 12/18/18 07:44 Dextrose (Dextrose 50%) 50 ml Q30M PRN IV Hypoglycemia 11/22/18 19:15 12/18/18 07:44 Donepezil HCl (Aricept) 10 mg DAILY GT 11/23/18 09:00 12/18/18 08:59 11/26/18 09:30 Lorazepam (Ativan) 1 mg Q6H PRN GT For Anxiety 11/22/18 18:56 11/29/18 18:55 Mirtazapine (Remeron) 15 mg BEDTIME GT 11/22/18 21:00 12/18/18 20:59 11/25/18 20:04 Morphine Sulfate (Morphine Sulfate) 2 mg Q4H PRN IVP Severe Pain (Pain Scale 7-10) 11/22/18 18:56 11/29/18 18:55 Ondansetron HCl (Zofran) 4 mg Q6H PRN IVP Nausea & Vomiting 11/22/18 18:56 12/22/18 18:55 Piperacillin Sod/ Tazobactam Sod 3.375 gm/Sodium Chloride 110 ml @ 27.5 mls/hr EVERY 8 HOURS IVPB 11/23/18 16:00 12/02/18 23:59 11/26/18 14:10 Polyethylene Glycol (Miralax) 17 gm DAILYPRN PRN ORAL Constipation 11/22/18 18:57 12/22/18 18:56 Potassium Chloride (K-Dur) 20 meq TWICE A DAY GT 11/25/18 18:00 12/25/18 17:59 11/26/18 09:30 Trimethoprim/ Sulfamethoxazole (Bactrim-DS) 20 ml Q12HR GT 11/22/18 21:00 11/29/18 23:59 11/26/18 09:30 Vancomycin HCl (Vanco rx to dose) 1 ea DAILY PRN MISC Per rx protocol 11/23/18 09:00 12/22/18 08:59 Vancomycin HCl 1 gm/Dextrose 275 ml @ 183.708 mls/hr Q12HR@1100,2300 IVPB 11/22/18 23:00 11/29/18 22:59 11/26/18 11:51 Last 24 Hour Vital Signs Date Time Temp Pulse Resp B/P (MAP) Pulse Ox O2 Delivery O2 Flow Rate FiO2 11/26/18 12:00 Nasal Cannula 3.0 11/26/18 12:00 97.5 100 18 97/55 (69) 100 11/26/18 11:36 94 11/26/18 08:00 97.7 84 20 104/61 (75) 100 11/26/18 08:00 Nasal Cannula 3.0 11/26/18 08:00 92 11/26/18 07:36 100 Nasal Cannula 2.0 28 11/26/18 07:36 87 20 100 Nasal Cannula 2.0 28 11/26/18 04:00 3.0 11/26/18 04:00 Nasal Cannula 3.0 11/26/18 04:00 96.6 87 20 116/61 (79) 100 11/26/18 03:25 92 11/26/18 00:00 3.0 11/26/18 00:00 Nasal Cannula 3.0 11/26/18 00:00 97 11/25/18 23:33 97.3 91 22 114/72 (86) 100 11/25/18 20:34 98.4 11/25/18 20:31 100 Nasal Cannula 2.0 28 11/25/18 20:30 95 20 100 Nasal Cannula 2.0 28 11/25/18 20:00 3.0 11/25/18 20:00 102 11/25/18 20:00 Nasal Cannula 3.0 11/25/18 20:00 99.7 100 20 97/67 (77) 100 11/25/18 16:00 97.7 98 20 115/67 (83) 100 11/25/18 16:00 Nasal Cannula 3.0 11/25/18 15:58 94 11/25/18 12:00 88 11/25/18 12:00 Nasal Cannula 3.0 11/25/18 12:00 99.1 102 19 90/55 (67) 100 11/25/18 08:00 104 11/25/18 08:00 Nasal Cannula 3.0 11/25/18 08:00 98.6 94 20 99/57 (71) 100 11/25/18 04:00 3.0 11/25/18 04:00 Nasal Cannula 3.0 11/25/18 03:58 97.5 106 22 98/53 (68) 100 11/25/18 03:56 109 11/25/18 00:00 Nasal Cannula 3.0 11/25/18 00:00 98.2 95 20 101/68 (79) 100 11/25/18 00:00 135 11/25/18 00:00 3.0 11/24/18 20:00 99.1 103 20 92/60 (71) 100 11/24/18 20:00 3.0 11/24/18 20:00 122 11/24/18 20:00 Nasal Cannula 3.0 11/24/18 19:11 99 20 98 Nasal Cannula 2.0 28 11/24/18 19:11 98 Nasal Cannula 2.0 28 11/24/18 16:00 112 11/24/18 16:00 Nasal Cannula 3.0 11/24/18 16:00 99.0 118 20 115/64 (81) 100 Intake and Output 11/25/18 11/26/18 19:00 07:00 Intake Total 1400.000 ml 1364.916 ml Output Total 1400 ml 300 ml Balance 0 ml 1064.916 ml Free Water 300 ml 200 ml IV Total 440.000 ml 504.916 ml Tube Feeding 660 ml 660 ml Output Urine Total 1400 ml 300 ml Labs Test 11/24/18 05:35 11/24/18 06:30 11/25/18 04:45 11/26/18 04:00 White Blood Count 11.7 K/UL (4.8-10.8) 10.2 K/UL (4.8-10.8) 11.6 K/UL (4.8-10.8) Red Blood Count 2.85 M/UL (4.70-6.10) 2.76 M/UL (4.70-6.10) 2.75 M/UL (4.70-6.10) Hemoglobin 9.0 G/DL (14.2-18.0) 8.6 G/DL (14.2-18.0) 8.9 G/DL (14.2-18.0) Hematocrit 26.6 % (42.0-52.0) 25.9 % (42.0-52.0) 26.4 % (42.0-52.0) Mean Corpuscular Volume 93 FL (80-99) 94 FL (80-99) 96 FL (80-99) Mean Corpuscular Hemoglobin 31.6 PG (27.0-31.0) 31.2 PG (27.0-31.0) 32.3 PG (27.0-31.0) Mean Corpuscular Hemoglobin Concent 33.8 G/DL (32.0-36.0) 33.2 G/DL (32.0-36.0) 33.7 G/DL (32.0-36.0) Red Cell Distribution Width 17.0 % (11.6-14.8) 16.6 % (11.6-14.8) 17.0 % (11.6-14.8) Platelet Count 293 K/UL (150-450) 288 K/UL (150-450) 310 K/UL (150-450) Mean Platelet Volume 5.1 FL (6.5-10.1) 5.0 FL (6.5-10.1) 5.2 FL (6.5-10.1) Neutrophils (%) (Auto) % (45.0-75.0) 82.0 % (45.0-75.0) 81.4 % (45.0-75.0) Lymphocytes (%) (Auto) % (20.0-45.0) 11.6 % (20.0-45.0) 11.7 % (20.0-45.0) Monocytes (%) (Auto) % (1.0-10.0) 5.7 % (1.0-10.0) 5.5 % (1.0-10.0) Eosinophils (%) (Auto) % (0.0-3.0) 0.1 % (0.0-3.0) 0.8 % (0.0-3.0) Basophils (%) (Auto) % (0.0-2.0) 0.6 % (0.0-2.0) 0.6 % (0.0-2.0) Differential Total Cells Counted 100 Neutrophils % (Manual) 84 % (45-75) Lymphocytes % (Manual) 9 % (20-45) Monocytes % (Manual) 7 % (1-10) Eosinophils % (Manual) 0 % (0-3) Basophils % (Manual) 0 % (0-2) Band Neutrophils 0 % (0-8) Platelet Estimate Adequate Platelet Morphology Normal Hypochromasia 2+ Anisocytosis 1+ Spherocytes 1+ Sodium Level 134 MMOL/L (136-145) 139 MMOL/L (136-145) 138 MMOL/L (136-145) Potassium Level 3.6 MMOL/L (3.5-5.1) 3.5 MMOL/L (3.5-5.1) 4.3 MMOL/L (3.5-5.1) Chloride Level 101 MMOL/L (98-107) 103 MMOL/L (98-107) 104 MMOL/L (98-107) Carbon Dioxide Level 26 MMOL/L (21-32) 28 MMOL/L (21-32) 29 MMOL/L (21-32) Anion Gap 7 mmol/L (5-15) 8 mmol/L (5-15) 5 mmol/L (5-15) Blood Urea Nitrogen 11 mg/dL (7-18) 13 mg/dL (7-18) 18 mg/dL (7-18) Creatinine 0.6 MG/DL (0.55-1.30) 0.5 MG/DL (0.55-1.30) 0.6 MG/DL (0.55-1.30) Estimat Glomerular Filtration Rate mL/min (>60) mL/min (>60) mL/min (>60) Glucose Level 118 MG/DL (74-106) 135 MG/DL (74-106) 116 MG/DL (74-106) Calcium Level 7.7 MG/DL (8.5-10.1) 7.9 MG/DL (8.5-10.1) 8.1 MG/DL (8.5-10.1) Total Bilirubin 0.5 MG/DL (0.2-1.0) 0.3 MG/DL (0.2-1.0) Aspartate Amino Transf (AST/SGOT) 17 U/L (15-37) 16 U/L (15-37) Alanine Aminotransferase (ALT/SGPT) 32 U/L (12-78) 26 U/L (12-78) Alkaline Phosphatase 91 U/L (46-116) 88 U/L (46-116) Pro-B-Type Natriuretic Peptide 282 pg/mL (0-125) Total Protein 5.2 G/DL (6.4-8.2) 4.8 G/DL (6.4-8.2) Albumin 1.2 G/DL (3.4-5.0) 1.1 G/DL (3.4-5.0) Globulin 4.0 g/dL 3.7 g/dL Albumin/Globulin Ratio 0.3 (1.0-2.7) 0.3 (1.0-2.7) Urine Random Sodium 117 mmol/L (20-110) Uric Acid 1.5 MG/DL (2.6-7.2) Phosphorus Level 3.2 MG/DL (2.5-4.9) Magnesium Level 1.4 MG/DL (1.8-2.4) 1.9 MG/DL (1.8-2.4) Height (Feet): 5 Height (Inches): 7.00 Weight (Pounds): 160 Objective PE General Appearance: WD/WN Lines, tubes and drains: central line HEENT: normocephalic, atraumatic Neck: non-tender, normal alignment Breasts: no masses Cardiovascular/Chest: normal peripheral pulses, normal rate, regular rhythm Abdomen: normal bowel sounds, non tender ++ peg Genitourinary/Rectal: normal genital exam, heme negative stool Extremities: normal range of motion Skin Exam: normal pigmentation 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
[2018-11-26 16:00] VITALS: BP 119/62
--- NOTE | 2018-11-26 19:08 | NUR ---
HAND-OFF: Report given to MONA Singh. Patient in stable condition.
--- NOTE | 2018-11-26 19:16 | NUR ---
NURSE NOTES: Report received from MONA Bishop. Observed pt lying in the bed, open eyes, but non-verbal. SR with director of cardiac rehabilitation. On 3L NC, with no signs of SOB. GT site intact and running Jevity 1.2 at 55cc/hr. F/C intact and draining well. Noted L arm swollen. IV on L FA 18G, SL. L FA 22G, SL. Bed in the lowest position. Side rails up x3 and padded. Will continue to monitor.
[2018-11-26 20:00] VITALS: BP_SYST 53; BP_SYST 96; BP_DIAS 53; BP_DIAS 62
--- NOTE | 2018-11-26 21:45 | Progress Note ---
DATE: 11/26/2018 SUBJECTIVE: This is a 73-year-old male patient with pneumonia, but he also has depression, altered mental status, decline in cognition below his baseline. That is why, his attending physician has requested daily psychiatric consultation. DIAGNOSIS: Major depressive disorder, mild recurrent with psychotic features, rule out dementia with psychosis. PLAN: Treat him with Remeron 15 mg per G-tube at bedtime, Aricept 10 mg per G-tube daily, and Ativan 1 mg every 6 hours p.r.n. anxiety and agitation. Provided him with 20 minutes of reality-based supportive psychotherapy. Chart reviewed. Discussed with staff. Seen and assessed at bedside. Laith Mason M.D. DR: RACHEL JOB#: [id number] CC:
--- NOTE | 2018-11-26 22:59 | NUR ---
NURSE NOTES: Observed pt sleeping in the bed. ST with HR of 101 noted on shelter monitor. No signs of pain noted. Reposition done with pillow support. No acute distress noted. Will continue to monitor.
[2018-11-27] VITALS (16 sets, daily range): BP systolic 93–132; BP diastolic 47–79
[2018-11-27 05:17] LABS: HEMATOCRIT 21.4 % (42.0-52.0); HEMOGLOBIN 7.2 G/DL (14.2-18.0); MEAN CORPUSCULAR VOLUME 97 FL (80-99); PLATELET COUNT 383 K/UL (150-450); RED BLOOD COUNT 2.21 M/UL (4.70-6.10); RED CELL DISTRIBUTION WIDTH 17.2 % (11.6-14.8); WHITE BLOOD COUNT 20.7 K/UL (4.8-10.8)
[2018-11-27 05:34] LABS: ANION GAP 8 mmol/L (5-15); BLOOD UREA NITROGEN 24 mg/dL (7-18); CARBON DIOXIDE 26 MMOL/L (21-32); CHLORIDE 104 MMOL/L (98-107); CREATININE 0.6 MG/DL (0.55-1.30); POTASSIUM 5.3 MMOL/L (3.5-5.1); SODIUM 138 MMOL/L (136-145)
[2018-11-27] MEDS: Zosyn 3.375gm q8h **Extended infusion IVPB SCH ×4 (06:01→13:07)
--- NOTE | 2018-11-27 07:11 | General Progress Note ---
Assessment/Plan Problem List: (1) Seizures ICD Codes: R56.9 - Unspecified convulsions SNOMED: 09101742 (2) Parkinson disease ICD Codes: G20 - Parkinson's disease SNOMED: 66038952 (3) Alzheimer's dementia ICD Codes: G30.9 - Alzheimer's disease, unspecified; F02.80 - Dementia in other diseases classified elsewhere without behavioral disturbance SNOMED: 65035772 (4) COPD (chronic obstructive pulmonary disease) ICD Codes: J44.9 - Chronic obstructive pulmonary disease, unspecified SNOMED: 69273258 (5) Feeding by G-tube ICD Codes: Z93.1 - Gastrostomy status SNOMED: 496462918, 606276806, 610189706 (6) Anemia, chronic disease ICD Codes: D63.8 - Anemia in other chronic diseases classified elsewhere SNOMED: 671892337, 179013270 Status: unchanged Assessment/Plan: s/p colonoscopy SUMMARY OF FINDINGS: 1. Fair colonic prep. 2. Diverticulosis most probably the source of bleeding. 3. No evidence of any acute bleeding at this time. 4. Internal hemorrhoids. RECOMMENDATIONS: Resume G-tube feeding. Okay to anticoagulate from gastrointestinal standpoint at this time given there is no active bleeding. Treat for hemorrhoids if become symptomatic. prn transfusions>>pending one unit for today ppi follow labs Subjective ROS Limited/Unobtainable: No Allergies: Coded Allergies: No Known Allergies (Unverified , 11/18/18) Objective Last 24 Hour Vital Signs Date Time Temp Pulse Resp B/P (MAP) Pulse Ox O2 Delivery O2 Flow Rate FiO2 11/27/18 04:00 99.1 120 20 94/47 (63) 98 11/27/18 04:00 Nasal Cannula 3.0 11/27/18 04:00 114 11/27/18 00:00 97.7 109 20 97/54 (68) 98 11/27/18 00:00 Nasal Cannula 3.0 11/27/18 00:00 103 11/26/18 21:00 98 Nasal Cannula 2.0 28 11/26/18 21:00 105 18 98 Nasal Cannula 2.0 28 11/26/18 20:00 97.7 98 20 96/53 (67) 100 11/26/18 20:00 Nasal Cannula 3.0 11/26/18 19:08 97 11/26/18 16:00 Nasal Cannula 3.0 11/26/18 16:00 98.1 89 22 119/62 (81) 98 11/26/18 15:21 87 11/26/18 12:00 Nasal Cannula 3.0 11/26/18 12:00 97.5 100 18 97/55 (69) 100 11/26/18 11:36 94 11/26/18 08:00 97.7 84 20 104/61 (75) 100 11/26/18 08:00 Nasal Cannula 3.0 11/26/18 08:00 92 11/26/18 07:36 100 Nasal Cannula 2.0 28 11/26/18 07:36 87 20 100 Nasal Cannula 2.0 28 Intake and Output 11/26/18 11/27/18 18:59 06:59 Intake Total 1250.4166 ml 974.5834 ml Output Total 901 ml Balance 349.4166 ml 974.5834 ml Free Water 100 ml 90 ml IV Total 490.4166 ml 389.5834 ml Tube Feeding 660 ml 495 ml Output Urine Total 900 ml Stool Total 1 ml # Bowel Movements 1 1 Laboratory Tests 11/27/18 03:53: White Blood Count 20.7#H, Red Blood Count 2.21L, Hemoglobin 7.2L, Hematocrit 21.4L, Mean Corpuscular Volume 97, Mean Corpuscular Hemoglobin 32.5H, Mean Corpuscular Hemoglobin Concent 33.6, Red Cell Distribution Width 17.2H, Platelet Count 383, Mean Platelet Volume 5.0L, Neutrophils (%) (Auto) , Lymphocytes (%) (Auto) , Monocytes (%) (Auto) , Eosinophils (%) (Auto) , Basophils (%) (Auto) , Neutrophils % (Manual) [Pending], Lymphocytes % (Manual) [Pending], Platelet Estimate [Pending], Platelet Morphology [Pending], Sodium Level 138, Potassium Level 5.3H, Chloride Level 104, Carbon Dioxide Level 26, Anion Gap 8, Blood Urea Nitrogen 24H, Creatinine 0.6, Estimat Glomerular Filtration Rate , Glucose Level 125H, Calcium Level 8.0L Height (Feet): 5 Height (Inches): 7.00 Weight (Pounds): 160 General Appearance: no apparent distress EENT: normal ENT inspection Neck: supple Cardiovascular: normal rate Respiratory/Chest: decreased breath sounds Abdomen: normal bowel sounds, non tender, soft Extremities: non-tender Deacon Dallas MD Nov 27, 2018 07:11
--- NOTE | 2018-11-27 07:11 | Pulmonology Progress Note ---
Assessment/Plan Assessment/Plan ASSESSMENT Sepsis with Staph aureus bacteremia , likely secondary to pneumonia HCAP with MRSA and Providencia MDR UTI with ACB MDR Acute DVT RLE and LUE, status post IVC filter COPD Dysphagia G-tube Dementia Alzheimer's dementia Parkinson disease Seizure disorder Anemia of chronic disease Acute anemia of blood loss ( due to a/coagulation) - requiring blood transfusion Rectal bleeding, status post colonoscopy Sacral decub with surrounding cellulitis Hypertension Hyperkalemia PLAN OF CARE TODD O2 titrate to keep pulse ox above 92%, HHN f/up with CXR in am Venous duplex + acute DVT RLE, status post IVC filter Venous duplex BUE + acute thrombus LUE BCX + Staph aureus, repeated BCX negative UCX +ACB MDR, SCX + MRSA, Providencia ECHO -limited study, FLORINA as recommended by ID s/p colonoscopy, no evidence of active bleeding bleeding was likely due to diverticulosis-as per GI internal hemorrhoids noted per GI okay to restart anticoagulation re-started on the Eliquis , monitor for any signs of bleeding Hgb today -7.2, dc Eliquis and transfuse today , monitor H&H with goal to keep hemoglobin above 7 s/p 2 units PRBC anemia work-up c/w anemia of chronic disease, ferritin 831 Kayexalate for hyper K , dc K supplements strict aspiration precaution G-tube feeding ECHO with pEF 50-55%, mild LVH continue Sinemet seizure precaution wound care as per surgeon recommendation case discussed and evaluated by supervising physician Subjective Allergies: Coded Allergies: No Known Allergies (Unverified , 11/18/18) Subjective today leukocytosis up to 20. no fevers Hgb down to 7.2 after Eliquis restarted K-5.3 Objective Last 24 Hour Vital Signs Date Time Temp Pulse Resp B/P (MAP) Pulse Ox O2 Delivery O2 Flow Rate FiO2 11/27/18 04:00 99.1 120 20 94/47 (63) 98 11/27/18 04:00 Nasal Cannula 3.0 11/27/18 04:00 114 11/27/18 00:00 97.7 109 20 97/54 (68) 98 11/27/18 00:00 Nasal Cannula 3.0 11/27/18 00:00 103 11/26/18 21:00 98 Nasal Cannula 2.0 28 11/26/18 21:00 105 18 98 Nasal Cannula 2.0 28 11/26/18 20:00 97.7 98 20 96/53 (67) 100 11/26/18 20:00 Nasal Cannula 3.0 11/26/18 19:08 97 11/26/18 16:00 Nasal Cannula 3.0 11/26/18 16:00 98.1 89 22 119/62 (81) 98 11/26/18 15:21 87 11/26/18 12:00 Nasal Cannula 3.0 11/26/18 12:00 97.5 100 18 97/55 (69) 100 11/26/18 11:36 94 11/26/18 08:00 97.7 84 20 104/61 (75) 100 11/26/18 08:00 Nasal Cannula 3.0 11/26/18 08:00 92 11/26/18 07:36 100 Nasal Cannula 2.0 28 11/26/18 07:36 87 20 100 Nasal Cannula 2.0 28 Intake and Output 11/26/18 11/27/18 18:59 06:59 Intake Total 1250.4166 ml 974.5834 ml Output Total 901 ml Balance 349.4166 ml 974.5834 ml Free Water 100 ml 90 ml IV Total 490.4166 ml 389.5834 ml Tube Feeding 660 ml 495 ml Output Urine Total 900 ml Stool Total 1 ml # Bowel Movements 1 1 General Appearance: no acute distress, other - awake, poorly responsive HEENT: normocephalic, atraumatic, anicteric, no JVD, other - O2 via NC Respiratory/Chest: rhonchi Cardiovascular: normal peripheral pulses, regular rhythm - ST on tele Abdomen: soft, non tender, non distended, other - G tube Genitourinary: other - Bradley Extremities: no edema Skin: ulcers - sacral decub , other - bilatera; ;eg dressing Neurologic/Psychiatric: abnormal gait - bedridden , other - open eyes spontaneously, poorly responsive Musculoskeletal: atrophy Laboratory Tests 11/27/18 03:53: White Blood Count 20.7#H, Red Blood Count 2.21L, Hemoglobin 7.2L, Hematocrit 21.4L, Mean Corpuscular Volume 97, Mean Corpuscular Hemoglobin 32.5H, Mean Corpuscular Hemoglobin Concent 33.6, Red Cell Distribution Width 17.2H, Platelet Count 383, Mean Platelet Volume 5.0L, Neutrophils (%) (Auto) , Lymphocytes (%) (Auto) , Monocytes (%) (Auto) , Eosinophils (%) (Auto) , Basophils (%) (Auto) , Neutrophils % (Manual) [Pending], Lymphocytes % (Manual) [Pending], Platelet Estimate [Pending], Platelet Morphology [Pending], Sodium Level 138, Potassium Level 5.3H, Chloride Level 104, Carbon Dioxide Level 26, Anion Gap 8, Blood Urea Nitrogen 24H, Creatinine 0.6, Estimat Glomerular Filtration Rate , Glucose Level 125H, Calcium Level 8.0L Current Medications Medications (Trade) Dose Ordered Sig/Pauline Route PRN Reason Start Time Stop Time Status Last Admin Dose Admin Acetaminophen (Tylenol) 650 mg Q4H PRN GT T>100.5 11/22/18 18:55 12/22/18 18:54 11/25/18 20:04 Albuterol/ Ipratropium (Albuterol/ Ipratropium) 3 ml Q4H PRN HHN Shortness of Breath 11/22/18 18:56 11/27/18 18:55 Carbidopa/Levodopa (Sinemet 25/100) 1 tab THREE TIMES A DAY GT 11/23/18 09:00 12/18/18 18:29 11/26/18 17:25 Clonidine HCl (Catapres Tab) 0.1 mg Q4H PRN GT sbp>170mmHg 11/22/18 18:55 12/22/18 18:54 Dextrose (Dextrose 50%) 25 ml Q30M PRN IV Hypoglycemia 11/22/18 19:15 12/18/18 07:44 Dextrose (Dextrose 50%) 50 ml Q30M PRN IV Hypoglycemia 11/22/18 19:15 12/18/18 07:44 Donepezil HCl (Aricept) 10 mg DAILY GT 11/23/18 09:00 12/18/18 08:59 11/26/18 09:30 Lorazepam (Ativan) 1 mg Q6H PRN GT For Anxiety 11/22/18 18:56 11/29/18 18:55 Mirtazapine (Remeron) 15 mg BEDTIME GT 11/22/18 21:00 12/18/18 20:59 11/26/18 20:40 Morphine Sulfate (Morphine Sulfate) 2 mg Q4H PRN IVP Severe Pain (Pain Scale 7-10) 11/22/18 18:56 11/29/18 18:55 11/27/18 02:19 Ondansetron HCl (Zofran) 4 mg Q6H PRN IVP Nausea & Vomiting 11/22/18 18:56 12/22/18 18:55 Piperacillin Sod/ Tazobactam Sod 3.375 gm/Sodium Chloride 110 ml @ 27.5 mls/hr EVERY 8 HOURS IVPB 11/23/18 16:00 12/02/18 23:59 11/27/18 06:01 Polyethylene Glycol (Miralax) 17 gm DAILYPRN PRN ORAL Constipation 11/22/18 18:57 12/22/18 18:56 Potassium Chloride (K-Dur) 20 meq TWICE A DAY GT 11/25/18 18:00 12/25/18 17:59 11/26/18 17:25 Trimethoprim/ Sulfamethoxazole (Bactrim-DS) 20 ml Q12HR GT 11/22/18 21:00 11/29/18 23:59 11/26/18 20:40 Vancomycin HCl (Vanco rx to dose) 1 ea DAILY PRN MISC Per rx protocol 11/23/18 09:00 12/22/18 08:59 Vancomycin HCl 1 gm/Dextrose 275 ml @ 183.708 mls/hr Q12HR@1100,2300 IVPB 11/22/18 23:00 11/29/18 22:59 11/26/18 22:37 Aleida Tellez NP Nov 27, 2018 07:11
[2018-11-27] MEDS ORDERED: Sodium Polystyrene Sulfonate 15gm Powder ORAL SCH (07:15)
--- NOTE | 2018-11-27 07:35 | NUR ---
HAND-OFF: Report given to MONA Zamora. Observed pt sleeping in the bed. No acute distress noted at this time.
--- NOTE | 2018-11-27 08:11 | Infectious Diseases Prog Note ---
Assessment/Plan Assessment/Plan Abx: IV Vancomycin 11/18- Cefepime 11/18- Levaquin x 1 11/18 Assessment: Sepsis Pneumonia -CXR: Patchy bilateral infiltrates versus mixed interstitial alveolar edema noted. -sp cx MRSA, MDR P. stuarti (S Amikacin, Zosyn ; I cefepime; S ertapenem) Afebrile Leukocytosis; SP MRSA bacteremia- suspect 2ry to PNA- r/o endocarditis -11/18 Bcx 2/4 MRSA , 1/ S. capitis, Diptheroids (these 2 are contaminants); BCx Neg -2d Echo:limited study (no vegetations) Probable UTI -u/a wbc 10-15, nit neg, leuk +2; ucx MDR ABC (S bactrim, gentamicin) Acute respiratory failure Sacral decubitus ulcer, necrotic, surrounding cellulitis dementia HTN CKD COPD dysphagia s/p Gtube feeding Parkinson disease seizure disorder multiple decubiti wounds longterm resident Plan: -Continue empiric IV Vancomycin #9 for MRSA bacteremia and PNA; duration to follow pending FLORINA -Continue Zosyn #/7-10 for MDR Providencia PNA -Cont Bactrim #7/7-10 for probable ABC UTI -11/23 SP Cefepime #6 -11/18 SP Levaquin x1 -f/u cx -Monitor CBC/CMP, temperatures -f/u sp cx, legionella ag urine -GT care -aspiration precautions -wound care per surgical team -Recommend FLORINA Thank you for this consultation. Will continue to follow along with you. Discussed with RN and Dr Reis. Subjective Allergies: Coded Allergies: No Known Allergies (Unverified , 11/18/18) Subjective Afebrile Leukocytosis increased to 20.7 this am Patient stable BM x 2 yesterday Objective Vital Signs Last 24 Hour Vital Signs Date Time Temp Pulse Resp B/P (MAP) Pulse Ox O2 Delivery O2 Flow Rate FiO2 11/27/18 04:00 99.1 120 20 94/47 (63) 98 11/27/18 04:00 Nasal Cannula 3.0 11/27/18 04:00 114 11/27/18 00:00 97.7 109 20 97/54 (68) 98 11/27/18 00:00 Nasal Cannula 3.0 11/27/18 00:00 103 11/26/18 21:00 98 Nasal Cannula 2.0 28 11/26/18 21:00 105 18 98 Nasal Cannula 2.0 28 11/26/18 20:00 97.7 98 20 96/53 (67) 100 11/26/18 20:00 Nasal Cannula 3.0 11/26/18 19:08 97 11/26/18 16:00 Nasal Cannula 3.0 11/26/18 16:00 98.1 89 22 119/62 (81) 98 11/26/18 15:21 87 11/26/18 12:00 Nasal Cannula 3.0 11/26/18 12:00 97.5 100 18 97/55 (69) 100 11/26/18 11:36 94 Height (Feet): 5 Height (Inches): 7.00 Weight (Pounds): 160 Objective GEN: NAD on 3L NC HEENT: NCAT, MMM, EOMI LUNGS: Coarse B/L Heart: RRR, S1, S2 Abd Soft. NT. ND Laboratory Tests Test 11/27/18 03:53 White Blood Count 20.7 K/UL (4.8-10.8) #H Red Blood Count 2.21 M/UL (4.70-6.10) L Hemoglobin 7.2 G/DL (14.2-18.0) L Hematocrit 21.4 % (42.0-52.0) L Mean Corpuscular Volume 97 FL (80-99) Mean Corpuscular Hemoglobin 32.5 PG (27.0-31.0) H Mean Corpuscular Hemoglobin Concent 33.6 G/DL (32.0-36.0) Red Cell Distribution Width 17.2 % (11.6-14.8) H Platelet Count 383 K/UL (150-450) Mean Platelet Volume 5.0 FL (6.5-10.1) L Neutrophils (%) (Auto) % (45.0-75.0) Lymphocytes (%) (Auto) % (20.0-45.0) Monocytes (%) (Auto) % (1.0-10.0) Eosinophils (%) (Auto) % (0.0-3.0) Basophils (%) (Auto) % (0.0-2.0) Neutrophils % (Manual) Pending Lymphocytes % (Manual) Pending Platelet Estimate Pending Platelet Morphology Pending Sodium Level 138 MMOL/L (136-145) Potassium Level 5.3 MMOL/L (3.5-5.1) H Chloride Level 104 MMOL/L (98-107) Carbon Dioxide Level 26 MMOL/L (21-32) Anion Gap 8 mmol/L (5-15) Blood Urea Nitrogen 24 mg/dL (7-18) H Creatinine 0.6 MG/DL (0.55-1.30) Estimat Glomerular Filtration Rate mL/min (>60) Glucose Level 125 MG/DL (74-106) H Calcium Level 8.0 MG/DL (8.5-10.1) L Current Medications Medications (Trade) Dose Ordered Sig/Pauline Route PRN Reason Start Time Stop Time Status Last Admin Dose Admin Acetaminophen (Tylenol) 650 mg Q4H PRN GT T>100.5 11/22/18 18:55 12/22/18 18:54 11/25/18 20:04 Albuterol/ Ipratropium (Albuterol/ Ipratropium) 3 ml Q4H PRN HHN Shortness of Breath 11/22/18 18:56 11/27/18 18:55 Carbidopa/Levodopa (Sinemet 25/100) 1 tab THREE TIMES A DAY GT 11/23/18 09:00 12/18/18 18:29 11/26/18 17:25 Clonidine HCl (Catapres Tab) 0.1 mg Q4H PRN GT sbp>170mmHg 11/22/18 18:55 12/22/18 18:54 Dextrose (Dextrose 50%) 25 ml Q30M PRN IV Hypoglycemia 11/22/18 19:15 12/18/18 07:44 Dextrose (Dextrose 50%) 50 ml Q30M PRN IV Hypoglycemia 11/22/18 19:15 12/18/18 07:44 Donepezil HCl (Aricept) 10 mg DAILY GT 11/23/18 09:00 12/18/18 08:59 11/26/18 09:30 Lorazepam (Ativan) 1 mg Q6H PRN GT For Anxiety 11/22/18 18:56 11/29/18 18:55 Mirtazapine (Remeron) 15 mg BEDTIME GT 11/22/18 21:00 12/18/18 20:59 11/26/18 20:40 Morphine Sulfate (Morphine Sulfate) 2 mg Q4H PRN IVP Severe Pain (Pain Scale 7-10) 11/22/18 18:56 11/29/18 18:55 11/27/18 02:19 Ondansetron HCl (Zofran) 4 mg Q6H PRN IVP Nausea & Vomiting 11/22/18 18:56 12/22/18 18:55 Piperacillin Sod/ Tazobactam Sod 3.375 gm/Sodium Chloride 110 ml @ 27.5 mls/hr EVERY 8 HOURS IVPB 11/23/18 16:00 12/02/18 23:59 11/27/18 06:01 Polyethylene Glycol (Miralax) 17 gm DAILYPRN PRN ORAL Constipation 11/22/18 18:57 12/22/18 18:56 Sodium Polystyrene Sulfonate (Kayexalate) 30 gm ONCE ORAL 11/27/18 07:15 11/27/18 08:30 11/27/18 07:32 Trimethoprim/ Sulfamethoxazole (Bactrim-DS) 20 ml Q12HR GT 11/22/18 21:00 11/29/18 23:59 11/26/18 20:40 Vancomycin HCl (Vanco rx to dose) 1 ea DAILY PRN MISC Per rx protocol 11/23/18 09:00 12/22/18 08:59 Vancomycin HCl 1 gm/Dextrose 275 ml @ 183.708 mls/hr Q12HR@1100,2300 IVPB 11/22/18 23:00 11/29/18 22:59 11/26/18 22:37 Jewel Brown MD Nov 27, 2018 08:11
[2018-11-27] MEDS: Levodopa/Carbidopa 25/100 tab GT SCH ×3 (08:29→18:53)
[2018-11-27] MEDS: Donepezil 10mg tab GT SCH (08:29)
[2018-11-27] MEDS: Bactrim Susp 20ml GT SCH (08:30)
--- NOTE | 2018-11-27 08:35 | General Progress Note ---
Assessment/Plan Problem List: (1) Acute DVT (deep venous thrombosis) ICD Codes: I82.409 - Acute embolism and thrombosis of unspecified deep veins of unspecified lower extremity SNOMED: 023904190571732 (2) UTI (urinary tract infection) ICD Codes: N39.0 - Urinary tract infection, site not specified SNOMED: 40739575, 572780851 Qualifiers: Qualified Codes: N30.00 - Acute cystitis without hematuria (3) Anemia, chronic disease ICD Codes: D63.8 - Anemia in other chronic diseases classified elsewhere SNOMED: 721529354, 120475649 (4) Parkinson disease ICD Codes: G20 - Parkinson's disease SNOMED: 92995311 (5) Alzheimer's dementia ICD Codes: G30.9 - Alzheimer's disease, unspecified; F02.80 - Dementia in other diseases classified elsewhere without behavioral disturbance SNOMED: 52022526 (6) COPD (chronic obstructive pulmonary disease) ICD Codes: J44.9 - Chronic obstructive pulmonary disease, unspecified SNOMED: 88277807 Status: unchanged Assessment/Plan: o2 pulm tx abx pt diet heme f/u cbc bmp am aru eval Subjective Constitutional: Reports: weakness Allergies: Coded Allergies: No Known Allergies (Unverified , 11/18/18) All Systems: reviewed and negative except above Subjective o2nc sleepy Objective Last 24 Hour Vital Signs Date Time Temp Pulse Resp B/P (MAP) Pulse Ox O2 Delivery O2 Flow Rate FiO2 11/27/18 04:00 99.1 120 20 94/47 (63) 98 11/27/18 04:00 Nasal Cannula 3.0 11/27/18 04:00 114 11/27/18 00:00 97.7 109 20 97/54 (68) 98 11/27/18 00:00 Nasal Cannula 3.0 11/27/18 00:00 103 11/26/18 21:00 98 Nasal Cannula 2.0 28 11/26/18 21:00 105 18 98 Nasal Cannula 2.0 28 11/26/18 20:00 97.7 98 20 96/53 (67) 100 11/26/18 20:00 Nasal Cannula 3.0 11/26/18 19:08 97 11/26/18 16:00 Nasal Cannula 3.0 11/26/18 16:00 98.1 89 22 119/62 (81) 98 11/26/18 15:21 87 11/26/18 12:00 Nasal Cannula 3.0 11/26/18 12:00 97.5 100 18 97/55 (69) 100 11/26/18 11:36 94 Intake and Output 11/26/18 11/27/18 18:59 06:59 Intake Total 1250.4166 ml 974.5834 ml Output Total 901 ml Balance 349.4166 ml 974.5834 ml Free Water 100 ml 90 ml IV Total 490.4166 ml 389.5834 ml Tube Feeding 660 ml 495 ml Output Urine Total 900 ml Stool Total 1 ml # Bowel Movements 1 1 Laboratory Tests 11/27/18 03:53: White Blood Count 20.7#H, Red Blood Count 2.21L, Hemoglobin 7.2L, Hematocrit 21.4L, Mean Corpuscular Volume 97, Mean Corpuscular Hemoglobin 32.5H, Mean Corpuscular Hemoglobin Concent 33.6, Red Cell Distribution Width 17.2H, Platelet Count 383, Mean Platelet Volume 5.0L, Neutrophils (%) (Auto) , Lymphocytes (%) (Auto) , Monocytes (%) (Auto) , Eosinophils (%) (Auto) , Basophils (%) (Auto) , Differential Total Cells Counted 100, Neutrophils % ( Manual) 83H, Lymphocytes % (Manual) 10L, Monocytes % (Manual) 6, Eosinophils % ( Manual) 1, Basophils % (Manual) 0, Band Neutrophils 0, Platelet Estimate Adequate, Platelet Morphology Normal, Hypochromasia 3+, Anisocytosis 1+, Spherocytes 2+, Sodium Level 138, Potassium Level 5.3H, Chloride Level 104, Carbon Dioxide Level 26, Anion Gap 8, Blood Urea Nitrogen 24H, Creatinine 0.6, Estimat Glomerular Filtration Rate , Glucose Level 125H, Calcium Level 8.0L Height (Feet): 5 Height (Inches): 7.00 Weight (Pounds): 160 General Appearance: lethargic EENT: normal ENT inspection Neck: normal alignment Cardiovascular: normal peripheral pulses, normal rate, regular rhythm Respiratory/Chest: chest wall non-tender, lungs clear, normal breath sounds Abdomen: normal bowel sounds, non tender, soft Extremities: normal inspection Neurologic: motor weakness Skin: normal pigmentation, warm/dry Abdullahi Gonzalez DO Nov 27, 2018 08:35
[2018-11-27] MEDS ORDERED: Albuterol/Ipratropium 3ml neb HHN PRN ×2 (09:15→18:18)
--- NOTE | 2018-11-27 10:45 | NUR ---
NURSE NOTES: left a message to dr arzola that patient is running a fever of 101.7. awaits callback from this MD for blood transfusion.
[2018-11-27] MEDS: Acetaminophen 650mg/20.3ml GT PRN (10:53)
[2018-11-27] MEDS: Vancomycin 1 GM in D5W 275 ML IVPB SCH ×2 (10:55→23:11)
--- NOTE | 2018-11-27 11:23 | Nephrology Progress Note ---
Assessment/Plan Problem List: (1) Hyponatremia Assessment: Na higher (2) UTI (urinary tract infection) (3) Anemia, chronic disease (4) Alzheimer's dementia (5) Parkinson disease Assessment Low Na likely due to hypotonic IV solution administration other conditions Pneumonia UTI, has grewal bacteremia sacral decub dementia HTN Sz disorder Parkinsons severe Anemia Plan Albumin bolus and transfusion for low BP stop HypoTonic IV solution Urine studies Transfusion as needed Per orders roberto carlos khalil Subjective ROS Limited/Unobtainable: No Constitutional: Reports: malaise Objective Objective Last 24 Hour Vital Signs Date Time Temp Pulse Resp B/P (MAP) Pulse Ox O2 Delivery O2 Flow Rate FiO2 11/27/18 10:44 120 20 100 Nasal Cannula 2.0 28 11/27/18 10:44 100 Nasal Cannula 2.0 28 11/27/18 08:00 98.6 115 23 93/52 (66) 100 11/27/18 08:00 Nasal Cannula 3.0 11/27/18 07:31 113 11/27/18 04:00 99.1 120 20 94/47 (63) 98 11/27/18 04:00 Nasal Cannula 3.0 11/27/18 04:00 114 11/27/18 00:00 97.7 109 20 97/54 (68) 98 11/27/18 00:00 Nasal Cannula 3.0 11/27/18 00:00 103 11/26/18 21:00 98 Nasal Cannula 2.0 28 11/26/18 21:00 105 18 98 Nasal Cannula 2.0 28 11/26/18 20:00 97.7 98 20 96/53 (67) 100 11/26/18 20:00 Nasal Cannula 3.0 11/26/18 19:08 97 11/26/18 16:00 Nasal Cannula 3.0 11/26/18 16:00 98.1 89 22 119/62 (81) 98 11/26/18 15:21 87 11/26/18 12:00 Nasal Cannula 3.0 11/26/18 12:00 97.5 100 18 97/55 (69) 100 11/26/18 11:36 94 Intake and Output 11/26/18 11/27/18 19:00 07:00 Intake Total 1227.5000 ml 915.0 ml Output Total 901 ml Balance 326.5000 ml 915.0 ml Free Water 100 ml 90 ml IV Total 467.5000 ml 385.0 ml Tube Feeding 660 ml 440 ml Output Urine Total 900 ml Stool Total 1 ml # Bowel Movements 1 1 Laboratory Tests 11/27/18 03:53: White Blood Count 20.7#H, Red Blood Count 2.21L, Hemoglobin 7.2L, Hematocrit 21.4L, Mean Corpuscular Volume 97, Mean Corpuscular Hemoglobin 32.5H, Mean Corpuscular Hemoglobin Concent 33.6, Red Cell Distribution Width 17.2H, Platelet Count 383, Mean Platelet Volume 5.0L, Neutrophils (%) (Auto) , Lymphocytes (%) (Auto) , Monocytes (%) (Auto) , Eosinophils (%) (Auto) , Basophils (%) (Auto) , Differential Total Cells Counted 100, Neutrophils % ( Manual) 83H, Lymphocytes % (Manual) 10L, Monocytes % (Manual) 6, Eosinophils % ( Manual) 1, Basophils % (Manual) 0, Band Neutrophils 0, Platelet Estimate Adequate, Platelet Morphology Normal, Hypochromasia 3+, Anisocytosis 1+, Spherocytes 2+, Sodium Level 138, Potassium Level 5.3H, Chloride Level 104, Carbon Dioxide Level 26, Anion Gap 8, Blood Urea Nitrogen 24H, Creatinine 0.6, Estimat Glomerular Filtration Rate , Glucose Level 125H, Calcium Level 8.0L Height (Feet): 5 Height (Inches): 7.00 Weight (Pounds): 160 General Appearance: no apparent distress Objective no change Kendall Trinidad MD Nov 27, 2018 11:23
--- NOTE | 2018-11-27 11:28 | NUR ---
NURSE NOTES: dr arzola called back and ordered to hold blood transfusion for now coz of fever.will continue to monitor.
--- NOTE | 2018-11-27 12:38 | Surgery Progress Note ---
Surgery Progress Note Subjective Symptoms: other Objective Last 24 Hour Vital Signs Date Time Temp Pulse Resp B/P (MAP) Pulse Ox O2 Delivery O2 Flow Rate FiO2 11/27/18 12:00 Nasal Cannula 3.0 11/27/18 11:23 100.9 11/27/18 10:44 120 20 100 Nasal Cannula 2.0 28 11/27/18 10:44 100 Nasal Cannula 2.0 28 11/27/18 08:00 98.6 115 23 93/52 (66) 100 11/27/18 08:00 Nasal Cannula 3.0 11/27/18 07:31 113 11/27/18 04:00 99.1 120 20 94/47 (63) 98 11/27/18 04:00 Nasal Cannula 3.0 11/27/18 04:00 114 11/27/18 00:00 97.7 109 20 97/54 (68) 98 11/27/18 00:00 Nasal Cannula 3.0 11/27/18 00:00 103 11/26/18 21:00 98 Nasal Cannula 2.0 28 11/26/18 21:00 105 18 98 Nasal Cannula 2.0 28 11/26/18 20:00 97.7 98 20 96/53 (67) 100 11/26/18 20:00 Nasal Cannula 3.0 11/26/18 19:08 97 11/26/18 16:00 Nasal Cannula 3.0 11/26/18 16:00 98.1 89 22 119/62 (81) 98 11/26/18 15:21 87 I&O Intake and Output 11/26/18 11/27/18 19:00 07:00 Intake Total 1227.5000 ml 915.0 ml Output Total 901 ml Balance 326.5000 ml 915.0 ml Free Water 100 ml 90 ml IV Total 467.5000 ml 385.0 ml Tube Feeding 660 ml 440 ml Output Urine Total 900 ml Stool Total 1 ml # Bowel Movements 1 1 Dressing: dry Wound: clean Cardiovascular: RSR Respiratory: clear, decreased breath sounds Abdomen: present bowel sounds Extremities: no cyanosis Laboratory Tests Test 11/27/18 03:53 White Blood Count 20.7 K/UL (4.8-10.8) #H Red Blood Count 2.21 M/UL (4.70-6.10) L Hemoglobin 7.2 G/DL (14.2-18.0) L Hematocrit 21.4 % (42.0-52.0) L Mean Corpuscular Volume 97 FL (80-99) Mean Corpuscular Hemoglobin 32.5 PG (27.0-31.0) H Mean Corpuscular Hemoglobin Concent 33.6 G/DL (32.0-36.0) Red Cell Distribution Width 17.2 % (11.6-14.8) H Platelet Count 383 K/UL (150-450) Mean Platelet Volume 5.0 FL (6.5-10.1) L Neutrophils (%) (Auto) % (45.0-75.0) Lymphocytes (%) (Auto) % (20.0-45.0) Monocytes (%) (Auto) % (1.0-10.0) Eosinophils (%) (Auto) % (0.0-3.0) Basophils (%) (Auto) % (0.0-2.0) Differential Total Cells Counted 100 Neutrophils % (Manual) 83 % (45-75) H Lymphocytes % (Manual) 10 % (20-45) L Monocytes % (Manual) 6 % (1-10) Eosinophils % (Manual) 1 % (0-3) Basophils % (Manual) 0 % (0-2) Band Neutrophils 0 % (0-8) Platelet Estimate Adequate Platelet Morphology Normal Hypochromasia 3+ Anisocytosis 1+ Spherocytes 2+ Sodium Level 138 MMOL/L (136-145) Potassium Level 5.3 MMOL/L (3.5-5.1) H Chloride Level 104 MMOL/L (98-107) Carbon Dioxide Level 26 MMOL/L (21-32) Anion Gap 8 mmol/L (5-15) Blood Urea Nitrogen 24 mg/dL (7-18) H Creatinine 0.6 MG/DL (0.55-1.30) Estimat Glomerular Filtration Rate mL/min (>60) Glucose Level 125 MG/DL (74-106) H Calcium Level 8.0 MG/DL (8.5-10.1) L Plan Problems: (1) Decubitus skin ulcer Assessment & Plan: Pt presented on admission with multiple pressure injuries. Violaceous macular rash noted to L shoulder ,Upper L side of back and lateral L chest. L upper ext edematous with scattered petechiae. Category 2 skin tear with 10% flap loss noted to L brachial. Small amt sanguineous exudate noted. Unstageable pressure injury Sacrum . Base of wound noted to have 100% mixed slough.necrosis .Edges semi-detached and erythematous. Surrounding non- blanchable erythema without elevation in skin temp ,or induration. (L)9.5cm x (W )6.5cm. NO odor or exudate noted. Full thickness pressure injury lumbar spine in close proximity to sacral pressure injury.Base of wound pink with scattered biofilm. (L)2cm x (W)1.6cm. (+ ) maceration along borders. Periwound without erythema or induration. DTPI noted to medial L heel (L)3.2cm x (W)4.5cm. Base of fluctuant with delineated erythematous borders. Periwound fluctuant with non-blanchable erythema.Additionally, an area of stable dry eschar noted to posterior L heel(L) 0.6cm x (W)0.8cm DTPI Noted to lateral R heel. Maroon discoloration that is fluctuant within base of wound.(L)2.5cm x (W)1cm. DTPI noted to medial R heel. Base of wound fluctuant and is maroon in colour (L) 1.5cm x (W)1cm. Maroon discoloration without fluctuance or induration noted to lateral R tibia , superior but in close proximity to lateral Malleolus.(L)1.4cm x (W)0.5cm. Tx.Plan: Cleanse skin tear L brachial. (Maintain Versatel Contact layer)Apply Silvasorb Gel. Cover with Optifoam drsg. Change every 7 days and prn. Cleanse Sacral wound with Saline. Apply Therahoney. Apply Moisture Barrier Paste periwound. Cover with Optifoam drsg. Change every 3 days and prn. Cleanse wound Lumbar spine with saline. Apply Therahoney. Apply Cavilon Skin Barrier periwound. Cover with Optifoam drsg. Change every 3 days and prn. Apply Cavilon Skin Barrier to Lateral R tibia, R heel and L heel. Cover each site with Optifoam drsg. Change every 7 days and prn. APM/FERNANDEZ mattress overlay. Reposition at least every 2hours or as tolerated. Off-load heels with pillow. (2) Acute DVT (deep venous thrombosis) (3) HCAP (healthcare-associated pneumonia) (4) UTI (urinary tract infection) (5) Anemia, chronic disease (6) Sepsis Assessment & Plan: leukocytosis resolved improving trend labs cont abx appreciate ID input (7) Feeding by G-tube Assessment & Plan: DAILY ESTIMATED NEEDS: Needs based on Sepsis, wound 60.5kg 25-35 kcals/kg 1959-6765 total kcals 1.25-2 g protein/kg 76-121 g total protein 25-30 mL/kg 5638-0313 total fluid mLs NUTRITION DIAGNOSIS: 1) Increased kcal and pro needs r/t wound healing as evidenced by pt w/ sacral unstageable wound and L heel DTPI. 2) Swallowing difficulty r/t dysphagia as evidenced by pt w/ Parkinson's dz, GT dependent. ENTERAL NUTRITION RECOMMENDATIONS: Glucerna 1.2 @60ml/hr x24 hrs to provide 1440ml, 1728 kcal, 86g pro, 1159ml free H2O - As medically able, rec to start Glucerna 1.2 @20ml/hr, advance as tolerated 10ml q4-6 hrs to goal. 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
--- NOTE | 2018-11-27 13:30 | NUR ---
CASE MANAGEMENT:REVIEW 11/27/2018 SI: SEPSIS. PNEUMONIA. ANEMIA~ S/P 1 UNIT T 100.9 HR 120 RR 25 B/P 101/51 SATS 100% ON 3L/NC WBC 20.7 HGB 7.2 HCT 21.4 K 5.3 BUN 24 GLU 125 CA 8 IS: BACTRIM PO Q12 IV VANCOMYCIN Q12 IV CEFEPIME BID IVF@75 mL/HR : SDU STATUS DCP: FROM [facility]
--- NOTE | 2018-11-27 14:31 | Cardiac Electrophysiology PN ---
Assessment/Plan Assessment/Plan 1. Sinus tach due to anemia and sepsis and beta danya withdrawal ( was on Metoprolol 12.5 bid at [facility]) 2. Hypertension. Echo EF 55% 3. Acute right leg DVT and Bilateral UE DVT. S/P IVC filter . Started on Eliquis [address] Mcelroy but DCed for Hb 7 4. Staph aureous bacteremia. On Abx by Dr. Yee who recommended FLORINA and is pending consent 5. Parkinsonism. 6. COPD. 7. UTI. 8. Anemia and rectal bleed.S/P Colonoscopy and transfusion 9. Seizure disorder. 10. S/P PEG DW RN Subjective Subjective In sinus tach. Eliquis DCed again in view of Hb 7 Objective Last 24 Hour Vital Signs Date Time Temp Pulse Resp B/P (MAP) Pulse Ox O2 Delivery O2 Flow Rate FiO2 11/27/18 12:00 Nasal Cannula 3.0 11/27/18 12:00 98.4 111 25 101/51 (68) 100 11/27/18 11:23 100.9 11/27/18 10:44 120 20 100 Nasal Cannula 2.0 28 11/27/18 10:44 100 Nasal Cannula 2.0 28 11/27/18 08:00 98.6 115 23 93/52 (66) 100 11/27/18 08:00 Nasal Cannula 3.0 11/27/18 07:31 113 11/27/18 04:00 99.1 120 20 94/47 (63) 98 11/27/18 04:00 Nasal Cannula 3.0 11/27/18 04:00 114 11/27/18 00:00 97.7 109 20 97/54 (68) 98 11/27/18 00:00 Nasal Cannula 3.0 11/27/18 00:00 103 11/26/18 21:00 98 Nasal Cannula 2.0 28 11/26/18 21:00 105 18 98 Nasal Cannula 2.0 28 11/26/18 20:00 97.7 98 20 96/53 (67) 100 11/26/18 20:00 Nasal Cannula 3.0 11/26/18 19:08 97 11/26/18 16:00 Nasal Cannula 3.0 11/26/18 16:00 98.1 89 22 119/62 (81) 98 11/26/18 15:21 87 Intake and Output 11/26/18 11/27/18 18:59 06:59 Intake Total 1250.4166 ml 974.5834 ml Output Total 901 ml Balance 349.4166 ml 974.5834 ml Free Water 100 ml 90 ml IV Total 490.4166 ml 389.5834 ml Tube Feeding 660 ml 495 ml Output Urine Total 900 ml Stool Total 1 ml # Bowel Movements 1 1 Laboratory Tests Test 11/27/18 03:53 White Blood Count 20.7 K/UL (4.8-10.8) #H Red Blood Count 2.21 M/UL (4.70-6.10) L Hemoglobin 7.2 G/DL (14.2-18.0) L Hematocrit 21.4 % (42.0-52.0) L Mean Corpuscular Volume 97 FL (80-99) Mean Corpuscular Hemoglobin 32.5 PG (27.0-31.0) H Mean Corpuscular Hemoglobin Concent 33.6 G/DL (32.0-36.0) Red Cell Distribution Width 17.2 % (11.6-14.8) H Platelet Count 383 K/UL (150-450) Mean Platelet Volume 5.0 FL (6.5-10.1) L Neutrophils (%) (Auto) % (45.0-75.0) Lymphocytes (%) (Auto) % (20.0-45.0) Monocytes (%) (Auto) % (1.0-10.0) Eosinophils (%) (Auto) % (0.0-3.0) Basophils (%) (Auto) % (0.0-2.0) Differential Total Cells Counted 100 Neutrophils % (Manual) 83 % (45-75) H Lymphocytes % (Manual) 10 % (20-45) L Monocytes % (Manual) 6 % (1-10) Eosinophils % (Manual) 1 % (0-3) Basophils % (Manual) 0 % (0-2) Band Neutrophils 0 % (0-8) Platelet Estimate Adequate Platelet Morphology Normal Hypochromasia 3+ Anisocytosis 1+ Spherocytes 2+ Sodium Level 138 MMOL/L (136-145) Potassium Level 5.3 MMOL/L (3.5-5.1) H Chloride Level 104 MMOL/L (98-107) Carbon Dioxide Level 26 MMOL/L (21-32) Anion Gap 8 mmol/L (5-15) Blood Urea Nitrogen 24 mg/dL (7-18) H Creatinine 0.6 MG/DL (0.55-1.30) Estimat Glomerular Filtration Rate mL/min (>60) Glucose Level 125 MG/DL (74-106) H Calcium Level 8.0 MG/DL (8.5-10.1) L Objective HEAD AND NECK: No JVD. LUNGS: Decreased breath sounds. CARDIOVASCULAR: Regular S1 and S2 with no gallop . ABDOMEN: Soft. G-tube intact. EXTREMITIES: Upper extremity and LE edema. Earl Washington MD Nov 27, 2018 14:30
--- NOTE | 2018-11-27 15:43 | NUR ---
NURSE NOTES: blood esparza sfuasion strated. VS taken and recorded. will continue to monitor after 15 minutes of blood administration
--- NOTE | 2018-11-27 16:56 | NUR ---
NURSE NOTES: patient SBP went down to 78. pale.patient had 2 dark red bowel movements. dr magdiel swanson ordered to transfer this patient to icu due to active bleeding and low bp. belongings checked and signed, endorsed properly to beth robin.
--- NOTE | 2018-11-27 17:15 | NUR ---
NURSE NOTES: Patient report received from MONA Zamora.Patient obtunded, on nasal canula at 2LPM.Transferred to ICU due to GI bleed.Tachycardia on the monitor 129bpm. Ongoing blood transfusion with no adverse reaction noted.Will continue to monitor.
[2018-11-27] MEDS ORDERED: Acetaminophen 650mg/20.3ml GT PRN (18:18)
[2018-11-27] MEDS ORDERED: Morphine Sulfate 2mg/ml Inj(IV/IM USE ONLY) IVP PRN (18:19)
--- NOTE | 2018-11-27 18:24 | NUR ---
NURSE NOTES: ADL done,turned and repositioned.Kept clean and dry.Will continue to monitor.
[2018-11-27 18:31] LABS: HEMATOCRIT 17.7 % (42.0-52.0); MEAN CORPUSCULAR VOLUME 91 FL (80-99); PLATELET COUNT 291 K/UL (150-450); RED BLOOD COUNT 1.94 M/UL (4.70-6.10); RED CELL DISTRIBUTION WIDTH 15.9 % (11.6-14.8)
--- NOTE | 2018-11-27 18:32 | NUR ---
TRANSFER TO FLOOR: Patient transferred to icu 2c, per dr magdiel zamorano order. Report given to beth robin. Belongings and medications given to rn. Family and or S/O informed of transfer.
[2018-11-27 18:55] LABS: HEMOGLOBIN 6.1 G/DL (14.2-18.0); WHITE BLOOD COUNT 22.2 K/UL (4.8-10.8)
[2018-11-27 19:01] LABS: ANION GAP 7 mmol/L (5-15); BLOOD UREA NITROGEN 35 mg/dL (7-18); CALCIUM 7.5 MG/DL (8.5-10.1); CARBON DIOXIDE 26 MMOL/L (21-32); CHLORIDE 104 MMOL/L (98-107); CREATININE 0.6 MG/DL (0.55-1.30); POTASSIUM 4.6 MMOL/L (3.5-5.1); SODIUM 137 MMOL/L (136-145)
[2018-11-27 19:03] LABS: INR 1.1 (0.9-1.1)
[2018-11-27 19:08] LABS: ALANINE AMINOTRANSFERASE 11 U/L (12-78); ALBUMIN 1.2 G/DL (3.4-5.0); ALBUMIN/GLOBULIN RATIO 0.5 (1.0-2.7); ALKALINE PHOSPHATASE 69 U/L (46-116); ASPARTATE AMINO TRANSFERASE 21 U/L (15-37); BILIRUBIN,TOTAL 0.4 MG/DL (0.2-1.0)
--- NOTE | 2018-11-27 19:15 | NUR ---
HAND-OFF: Report given to MONA Cohen.
--- NOTE | 2018-11-27 19:16 | NUR ---
NURSE NOTES: Endorsement received from MONA Foley. Patient opens eyes spontaneously, nonverbal. on 3LPM oxygen per nasal cannula. GT patent and intact. On Jevity 1.2 55ml/hr. No residual. With left upper arm g 18, left wrist g18, lefty wrist g22. Bradley catheter draining to urimeter. Bed locked and in low position. Bed alarm on, call light within reach. On seizure precaution. Patient already received 1 unit of PRBC. Still to transfuse 2 units of PRBC, 1 unit FFP, 1 unit of platelet. No bleeding noted at this time.
--- NOTE | 2018-11-27 19:30 | NUR ---
NURSE NOTES: Received call from lab regarding latest INR, PTT, and platelet results. All are within normal range and no indication to transfuse FFP and platelet. Informed Dr. Eugene and updated of patient's latest VS, H/H of 6.1 and 17.7 and still for transfusion of 2 units PRBC. Received an new order to cancel FFP and platelet transfusion and give the remaining 2 units of PRBC and CBC post transfusion.
--- NOTE | 2018-11-27 20:00 | NUR ---
NURSE NOTES: 2nd unit of PRBC started, unit at patient's identification checked with another RN at bedside.
--- NOTE | 2018-11-27 20:00 | NUR ---
NURSE NOTES: 2nd unit of PRBC started. Co
--- NOTE | 2018-11-27 20:15 | NUR ---
NURSE NOTES: Left a message for Dr. Dallas regarding latest H/H results, vital signs. Awaiting for return call.
[2018-11-27] MEDS ORDERED: NS 275ml ONE (20:51)
[2018-11-27] MEDS ORDERED: Tubing IV Secondary IV ONE (20:51)
--- NOTE | 2018-11-27 21:16 | NUR ---
NURSE NOTES: Received a telephone message from Dr. Dallas to put the patient on NPO.
--- NOTE | 2018-11-27 21:59 | Hematology/Onc Progress Note ---
Assessment/Plan Assessment/Plan Assessment and Recs: # Acute right leg DVT. Heparin drip DCed for rectal bleed. s/p IVC FILTER --> agree with need for this given coagulant contraindication --> appreciate gi and pulm/cc recs --> UPPER EXT DVT noted as well --> have discontinued eliquis given acute GI bleed on 11/27/18, ON HOLD --> in icu as of 11/27 # Anemia due to GI Bleed, other causes exist, multifactorial --> Anemia workup has been reviewed, FERRITIN 831 --> No evidence of hemolysis is noted, peripheral smear has been reviewed. --> Hgb goal >7. Transfuse prn. --> Epogen or iron at this time is not particularly indicated --> Medications have been reviewed --> low threshold for gi evaluation in case has occult +--> endoscopy and colo pending --> hgb trend: 7.4-->9.0-->9-->8.6->8.9-->6.1 --> Blood tx: 1 unit 11/19, # Leukocytosis due to sepsis. --> Monitor for improvement --> urine and blood cultures are both positive, mrsa positive --> IV abx per id --> trend wbc 11.6 # Sinus tach due to anemia and sepsis and beta danya withdrawal as was on Metoprolol 12.5 bid at [facility] --> per cards recs # Hypertension. Hold Metoprolol as BP is 90s. --> cloniditon per cards # S/P PEG The timing of this note does not necessarily reflect the time of the patient was seen. GREATLY APPRECIATE CONSULTATION. Subjective Constitutional: Denies: no symptoms, chills, fever, malaise, weakness, other HEENT: Denies: no symptoms, eye pain, blurred vision, tearing, double vision, ear pain, ear discharge, nose pain, nose congestion, throat pain, throat swelling, mouth pain, mouth swelling, other Cardiovascular: Denies: no symptoms, chest pain, edema, irregular heart rate, lightheadedness, palpitations, syncope, other Respiratory: Denies: no symptoms, cough, shortness of breath, SOB with excertion, SOB at rest, sputum, wheezing, other Neurologic/Psychiatric: Denies: no symptoms, anxiety, depressed, emotional problems, headache, numbness, paresthesia, pre-existing deficit, seizure, tingling, tremors, weakness, other Endocrine: Denies: no symptoms, excessive sweating, flushing, intolerance to cold, intolerance to heat, increased hunger, increased thirst, increased urine, unexplained weight gain, unexplained weight loss, other Allergies: Coded Allergies: No Known Allergies (Unverified , 11/18/18) Subjective 11/20: Colonoscopy for today. S/P 1 unit prbc. 11/21: Pt awake and nonverbal. Hgb at 7.4, blood tx ordered. 11/23: Pt no acute respiratory distress. CXR Increased bilateral lower lobe atelectasis or airspace consolidation. Underlying pneumonia may be present. Small bilateral pleural effusions. 11/24: no events, no f/c noted, no bleeding, anemia panel reviewed, s/p ivc filter 11/25: No acute events, no signs of distress. DC planning 11/26: no events, no bleeding, noted to have b/l upper ext dvt, acute started on elqiuis 11/27: sbo was ow in the am, transferred to the icu, hgb low requiring transfusion Objective Objective Current Medications Medications (Trade) Dose Ordered Sig/Pauline Route PRN Reason Start Time Stop Time Status Last Admin Dose Admin Acetaminophen (Tylenol) 650 mg Q4H PRN GT T>100.5 11/27/18 18:18 12/22/18 18:17 Albuterol/ Ipratropium (Albuterol/ Ipratropium) 3 ml Q4H PRN HHN Shortness of Breath 11/27/18 18:18 12/02/18 18:17 Carbidopa/Levodopa (Sinemet 25/100) 1 tab THREE TIMES A DAY GT 11/27/18 18:00 12/27/18 17:59 11/27/18 18:53 Clonidine HCl (Catapres Tab) 0.1 mg Q4H PRN GT sbp>170mmHg 11/27/18 18:18 12/22/18 18:17 Dextrose (Dextrose 50%) 25 ml Q30M PRN IV Hypoglycemia 11/27/18 18:18 12/18/18 18:17 Dextrose (Dextrose 50%) 50 ml Q30M PRN IV Hypoglycemia 11/27/18 18:18 12/18/18 18:17 Morphine Sulfate (Morphine Sulfate) 2 mg Q4H PRN IVP Severe Pain (Pain Scale 7-10) 11/27/18 18:19 11/29/18 18:18 Piperacillin Sod/ Tazobactam Sod 3.375 gm/Sodium Chloride 110 ml @ 27.5 mls/hr EVERY 8 HOURS IVPB 11/27/18 22:00 12/02/18 23:59 Vancomycin HCl (Vanco rx to dose) 1 ea DAILY PRN MISC Per rx protocol 11/27/18 18:18 12/27/18 18:17 Vancomycin HCl 1 gm/Dextrose 275 ml @ 183.708 mls/hr Q12HR@1100,2300 IVPB 11/27/18 23:00 11/29/18 22:59 Last 24 Hour Vital Signs Date Time Temp Pulse Resp B/P (MAP) Pulse Ox O2 Delivery O2 Flow Rate FiO2 11/27/18 20:00 Nasal Cannula 3.0 11/27/18 19:51 94 Nasal Cannula 2.0 28 11/27/18 19:50 154 21 94 Nasal Cannula 2.0 28 11/27/18 19:00 99.0 142 20 99/56 (70) 98 11/27/18 18:30 128 25 99/55 (70) 100 11/27/18 18:02 129 26 132/79 (96) 100 11/27/18 17:30 129 11/27/18 17:30 98.3 129 25 101/51 (68) 100 11/27/18 16:00 Nasal Cannula 3.0 11/27/18 12:00 Nasal Cannula 3.0 11/27/18 12:00 98.4 111 25 101/51 (68) 100 11/27/18 11:26 108 11/27/18 11:23 100.9 11/27/18 10:44 120 20 100 Nasal Cannula 2.0 11/27/18 10:44 100 Nasal Cannula 2.0 28 11/27/18 08:00 98.6 115 23 93/52 (66) 100 11/27/18 08:00 Nasal Cannula 3.0 11/27/18 07:31 113 11/27/18 04:00 99.1 120 20 94/47 (63) 98 11/27/18 04:00 Nasal Cannula 3.0 11/27/18 04:00 114 11/27/18 00:00 97.7 109 20 97/54 (68) 98 11/27/18 00:00 Nasal Cannula 3.0 11/27/18 00:00 103 11/26/18 21:00 98 Nasal Cannula 2.0 28 11/26/18 21:00 105 18 98 Nasal Cannula 2.0 28 11/26/18 20:00 97.7 98 20 96/53 (67) 100 11/26/18 20:00 Nasal Cannula 3.0 11/26/18 19:08 97 11/26/18 16:00 Nasal Cannula 3.0 11/26/18 16:00 98.1 89 22 119/62 (81) 98 11/26/18 15:21 87 11/26/18 12:00 Nasal Cannula 3.0 11/26/18 12:00 97.5 100 18 97/55 (69) 100 11/26/18 11:36 94 11/26/18 08:00 97.7 84 20 104/61 (75) 100 11/26/18 08:00 Nasal Cannula 3.0 11/26/18 08:00 92 11/26/18 07:36 100 Nasal Cannula 2.0 28 11/26/18 07:36 87 20 100 Nasal Cannula 2.0 28 11/26/18 04:00 3.0 11/26/18 04:00 Nasal Cannula 3.0 11/26/18 04:00 96.6 87 20 116/61 (79) 100 11/26/18 03:25 92 11/26/18 00:00 3.0 11/26/18 00:00 Nasal Cannula 3.0 11/26/18 00:00 97 11/25/18 23:33 97.3 91 22 114/72 (86) 100 Intake and Output 11/26/18 11/27/18 19:00 07:00 Intake Total 1227.5000 ml 915.0 ml Output Total 901 ml Balance 326.5000 ml 915.0 ml Free Water 100 ml 90 ml IV Total 467.5000 ml 385.0 ml Tube Feeding 660 ml 440 ml Output Urine Total 900 ml Stool Total 1 ml # Bowel Movements 1 1 Labs Test 11/25/18 04:45 11/26/18 04:00 11/27/18 03:53 11/27/18 18:25 White Blood Count 10.2 K/UL (4.8-10.8) 11.6 K/UL (4.8-10.8) 20.7 K/UL (4.8-10.8) 22.2 K/UL (4.8-10.8) Red Blood Count 2.76 M/UL (4.70-6.10) 2.75 M/UL (4.70-6.10) 2.21 M/UL (4.70-6.10) 1.94 M/UL (4.70-6.10) Hemoglobin 8.6 G/DL (14.2-18.0) 8.9 G/DL (14.2-18.0) 7.2 G/DL (14.2-18.0) 6.1 G/DL (14.2-18.0) Hematocrit 25.9 % (42.0-52.0) 26.4 % (42.0-52.0) 21.4 % (42.0-52.0) 17.7 % (42.0-52.0) Mean Corpuscular Volume 94 FL (80-99) 96 FL (80-99) 97 FL (80-99) 91 FL (80- 99) Mean Corpuscular Hemoglobin 31.2 PG (27.0-31.0) 32.3 PG (27.0-31.0) 32.5 PG (27.0-31.0) 31.6 PG (27.0-31.0) Mean Corpuscular Hemoglobin Concent 33.2 G/DL (32.0-36.0) 33.7 G/DL (32.0-36.0) 33.6 G/DL (32.0-36.0) 34.7 G/DL (32.0-36.0) Red Cell Distribution Width 16.6 % (11.6-14.8) 17.0 % (11.6-14.8) 17.2 % (11.6-14.8) 15.9 % (11.6-14.8) Platelet Count 288 K/UL (150-450) 310 K/UL (150-450) 383 K/UL (150-450) 291 K/UL (150-450) Mean Platelet Volume 5.0 FL (6.5-10.1) 5.2 FL (6.5-10.1) 5.0 FL (6.5-10.1) 5.0 FL (6.5-10.1) Neutrophils (%) (Auto) 82.0 % (45.0-75.0) 81.4 % (45.0-75.0) % (45.0-75.0) % (45.0-75.0) Lymphocytes (%) (Auto) 11.6 % (20.0-45.0) 11.7 % (20.0-45.0) % (20.0-45.0) % (20.0-45.0) Monocytes (%) (Auto) 5.7 % (1.0-10.0) 5.5 % (1.0-10.0) % (1.0-10.0) % (1.0-10.0) Eosinophils (%) (Auto) 0.1 % (0.0-3.0) 0.8 % (0.0-3.0) % (0.0-3.0) % (0.0-3.0) Basophils (%) (Auto) 0.6 % (0.0-2.0) 0.6 % (0.0-2.0) % (0.0-2.0) % (0.0-2.0) Sodium Level 139 MMOL/L (136-145) 138 MMOL/L (136-145) 138 MMOL/L (136-145) 137 MMOL/L (136-145) Potassium Level 3.5 MMOL/L (3.5-5.1) 4.3 MMOL/L (3.5-5.1) 5.3 MMOL/L (3.5-5.1) 4.6 MMOL/L (3.5-5.1) Chloride Level 103 MMOL/L (98-107) 104 MMOL/L (98-107) 104 MMOL/L (98-107) 104 MMOL/L (98-107) Carbon Dioxide Level 28 MMOL/L (21-32) 29 MMOL/L (21-32) 26 MMOL/L (21-32) 26 MMOL/L (21-32) Anion Gap 8 mmol/L (5-15) 5 mmol/L (5-15) 8 mmol/L (5-15) 7 mmol/L (5-15) Blood Urea Nitrogen 13 mg/dL (7-18) 18 mg/dL (7-18) 24 mg/dL (7-18) 35 mg/dL (7-18) Creatinine 0.5 MG/DL (0.55-1.30) 0.6 MG/DL (0.55-1.30) 0.6 MG/DL (0.55-1.30) 0.6 MG/DL (0.55-1.30) Estimat Glomerular Filtration Rate mL/min (>60) mL/min (>60) mL/min (>60) mL/min (>60) Glucose Level 135 MG/DL (74-106) 116 MG/DL (74-106) 125 MG/DL (74-106) 169 MG/DL (74-106) Uric Acid 1.5 MG/DL (2.6-7.2) Calcium Level 7.9 MG/DL (8.5-10.1) 8.1 MG/DL (8.5-10.1) 8.0 MG/DL (8.5-10.1) 7.5 MG/DL (8.5-10.1) Phosphorus Level 3.2 MG/DL (2.5-4.9) Magnesium Level 1.4 MG/DL (1.8-2.4) 1.9 MG/DL (1.8-2.4) Total Bilirubin 0.3 MG/DL (0.2-1.0) 0.4 MG/DL (0.2-1.0) Aspartate Amino Transf (AST/SGOT) 16 U/L (15-37) 21 U/L (15-37) Alanine Aminotransferase (ALT/SGPT) 26 U/L (12-78) 11 U/L (12-78) Alkaline Phosphatase 88 U/L (46-116) 69 U/L (46-116) Total Protein 4.8 G/DL (6.4-8.2) 3.6 G/DL (6.4-8.2) Albumin 1.1 G/DL (3.4-5.0) 1.2 G/DL (3.4-5.0) Globulin 3.7 g/dL 2.4 g/dL Albumin/Globulin Ratio 0.3 (1.0-2.7) 0.5 (1.0-2.7) Differential Total Cells Counted 100 100 Neutrophils % (Manual) 83 % (45-75) 86 % (45-75) Lymphocytes % (Manual) 10 % (20-45) 9 % (20-45) Monocytes % (Manual) 6 % (1-10) 2 % (1-10) Eosinophils % (Manual) 1 % (0-3) 0 % (0-3) Basophils % (Manual) 0 % (0-2) 0 % (0-2) Band Neutrophils 0 % (0-8) 2 % (0-8) Platelet Estimate Adequate Adequate Platelet Morphology Normal Normal Hypochromasia 3+ 1+ Anisocytosis 1+ 1+ Spherocytes 2+ Myelocytes % 1 % (0-0) Polychromasia 1+ Prothrombin Time 11.4 SEC (9.30-11.50) Prothromb Time International Ratio 1.1 (0.9-1.1) Activated Partial Thromboplast Time 25 SEC (23-33) Height (Feet): 5 Height (Inches): 7.00 Weight (Pounds): 160 Objective PE General Appearance: WD/WN Lines, tubes and drains: central line HEENT: normocephalic, atraumatic Neck: non-tender, normal alignment Breasts: no masses Cardiovascular/Chest: normal peripheral pulses, normal rate, regular rhythm Abdomen: normal bowel sounds, non tender ++ peg Genitourinary/Rectal: normal genital exam, heme negative stool Extremities: normal range of motion Skin Exam: normal pigmentation Neurologic: stranner II-XII grossly normal Avery Giang MD Nov 27, 2018 21:59
[2018-11-27] MEDS: Piperacillin/Tazobactam 3.375 GM in NS 110 ML IVPB SCH (22:03)
--- NOTE | 2018-11-27 22:20 | NUR ---
NURSE NOTES: 2nd unit transfused, no transfusion reaction noted.
--- NOTE | 2018-11-27 22:42 | NUR ---
NURSE NOTES: 3rd unit of PRBC started, identity and bag verified with another RN at bedside. Patient passed 1 large dark red stool. Updated Dr. Dallas, also informed him that patient has no protonix or sandostatin drip ordered. Awaiting for return call.
[2018-11-28] VITALS (26 sets, daily range): BP systolic 85–136; BP diastolic 46–104
--- NOTE | 2018-11-28 01:00 | NUR ---
NURSE NOTES: 3rd unit of PRBC consumed. No transfusion reaction noted.
--- NOTE | 2018-11-28 01:22 | NUR ---
NURSE NOTES: Registered Dental Assistant Rda at bedside for CBC post transfusion.
[2018-11-28 01:37] LABS: HEMATOCRIT 27.8 % (42.0-52.0); HEMOGLOBIN 9.7 G/DL (14.2-18.0); MEAN CORPUSCULAR VOLUME 92 FL (80-99); PLATELET COUNT 263 K/UL (150-450); RED BLOOD COUNT 3.03 M/UL (4.70-6.10); RED CELL DISTRIBUTION WIDTH 15.3 % (11.6-14.8)
[2018-11-28 01:43] LABS: WHITE BLOOD COUNT 28.4 K/UL (4.8-10.8)
--- NOTE | 2018-11-28 02:00 | NUR ---
NURSE NOTES: H/H post transfusion: 9.7, 27.8. Patient asleep. Still tachypneic and tachycardic.
--- NOTE | 2018-11-28 03:45 | Progress Note ---
DATE: 11/28/2018 SUBJECTIVE: This is a 73-year-old male patient with sepsis and pneumonia, but he has altered mental status, confusion, and depression worsened by stress of his medical illness and decline in cognition below his baseline. That is why, his attending physician has requested daily psychiatric consultation. DIAGNOSIS: Major depressive disorder, mild, recurrent with psychotic features, rule out dementia with psychosis. PLAN: Treat him with psychotropic medication regimen consisting of Ativan 1 mg every 6 hours p.r.n. anxiety and agitation, Remeron 15 mg per G-tube nightly, and Aricept 10 mg per G-tube daily. A 20 minutes of reality based supportive psychotherapy for agitation. A 20 minutes of cognitive behavioral therapy to help him identify his automatic negative thoughts and convert his negative thoughts to more positive thoughts to reduce depression, anxiety, and mood lability. Chart reviewed. Discussed with staff. Seen and assessed at bedside. Laith Mason M.D. DR: VIJAY JOB#: [id number] CC:
--- NOTE | 2018-11-28 04:30 | NUR ---
NURSE NOTES: Bed bath, change of linens, change of dressings done.
[2018-11-28] MEDS: Piperacillin/Tazobactam 3.375 GM in NS 110 ML IVPB SCH ×3 (05:10→13:39)
[2018-11-28 05:26] LABS: HEMATOCRIT 28.5 % (42.0-52.0); HEMOGLOBIN 9.8 G/DL (14.2-18.0); MEAN CORPUSCULAR VOLUME 93 FL (80-99); PLATELET COUNT 261 K/UL (150-450); RED BLOOD COUNT 3.08 M/UL (4.70-6.10); RED CELL DISTRIBUTION WIDTH 15.1 % (11.6-14.8)
[2018-11-28 05:36] LABS: WHITE BLOOD COUNT 29.2 K/UL (4.8-10.8)
[2018-11-28 06:00] LABS: ALANINE AMINOTRANSFERASE 15 U/L (12-78); ALBUMIN 1.2 G/DL (3.4-5.0); ALBUMIN/GLOBULIN RATIO 0.4 (1.0-2.7); ALKALINE PHOSPHATASE 70 U/L (46-116); ANION GAP 12 mmol/L (5-15); ASPARTATE AMINO TRANSFERASE 27 U/L (15-37); BILIRUBIN,TOTAL 0.7 MG/DL (0.2-1.0); BLOOD UREA NITROGEN 47 mg/dL (7-18); CALCIUM 7.8 MG/DL (8.5-10.1); CARBON DIOXIDE 23 MMOL/L (21-32); CHLORIDE 107 MMOL/L (98-107); CREATININE 0.8 MG/DL (0.55-1.30); PHOSPHORUS 5.1 MG/DL (2.5-4.9); POTASSIUM 4.8 MMOL/L (3.5-5.1); SODIUM 141 MMOL/L (136-145)
--- NOTE | 2018-11-28 06:40 | NUR ---
NURSE NOTES: Called Dr. Yee's office, left a message for WBC 29.2. Awaiting for return call.
--- NOTE | 2018-11-28 07:08 | NUR ---
HAND-OFF: Report given to MONA Foley.
--- NOTE | 2018-11-28 07:23 | Hematology/Onc Progress Note ---
Assessment/Plan Assessment/Plan # Acute right leg DVT. Heparin drip DCed for rectal bleed. s/p IVC FILTER --> agree with need for this given coagulant contraindication --> appreciate gi and pulm/cc recs --> UPPER EXT DVT noted as well --> have discontinued eliquis given acute GI bleed on 11/27/18, ON HOLD --> in icu as of 11/27 # Anemia due to GI Bleed, other causes exist, multifactorial --> Anemia workup has been reviewed, FERRITIN 831 --> No evidence of hemolysis is noted, peripheral smear has been reviewed. --> Hgb goal >7. Transfuse prn. --> Epogen or iron at this time is not particularly indicated --> Medications have been reviewed --> low threshold for gi evaluation in case has occult +--> endoscopy and colo pending --> hgb trend: 7.4-->9.0-->9-->8.6->8.9-->6.1-->9.8 --> Blood tx: 1 unit 11/19, 11/27 # Leukocytosis due to sepsis. --> Monitor for improvement --> urine and blood cultures are both positive, mrsa positive --> IV abx per id --> trend wbc 11.6 # Sinus tach due to anemia and sepsis and beta danya withdrawal as was on Metoprolol 12.5 bid at [facility] --> per cards recs # Hypertension. Hold Metoprolol as BP is 90s. --> cloniditon per cards # S/P PEG The timing of this note does not necessarily reflect the time of the patient was seen. GREATLY APPRECIATE CONSULTATION. Subjective Allergies: Coded Allergies: No Known Allergies (Unverified , 11/18/18) Subjective Subjective Subjective Constitutional: Denies: no symptoms, chills, fever, malaise, weakness, other HEENT: Denies: no symptoms, eye pain, blurred vision, tearing, double vision, ear pain, ear discharge, nose pain, nose congestion, throat pain, throat swelling, mouth pain, mouth swelling, other Cardiovascular: Denies: no symptoms, chest pain, edema, irregular heart rate, lightheadedness, palpitations, syncope, other Respiratory: Denies: no symptoms, cough, shortness of breath, SOB with excertion, SOB at rest, sputum, wheezing, other Neurologic/Psychiatric: Denies: no symptoms, anxiety, depressed, emotional problems, headache, numbness, paresthesia, pre-existing deficit, seizure, tingling, tremors, weakness, other Endocrine: Denies: no symptoms, excessive sweating, flushing, intolerance to cold, intolerance to heat, increased hunger, increased thirst, increased urine, unexplained weight gain, unexplained weight loss, other Allergies: Coded Allergies: No Known Allergies (Unverified , 11/18/18) Subjective 11/20: Colonoscopy for today. S/P 1 unit prbc. 11/21: Pt awake and nonverbal. Hgb at 7.4, blood tx ordered. 11/23: Pt no acute respiratory distress. CXR Increased bilateral lower lobe atelectasis or airspace consolidation. Underlying pneumonia may be present. Small bilateral pleural effusions. 11/24: no events, no f/c noted, no bleeding, anemia panel reviewed, s/p ivc filter 11/25: No acute events, no signs of distress. DC planning 11/26: no events, no bleeding, noted to have b/l upper ext dvt, acute started on elqiuis 11/27: sbo was ow in the am, transferred to the icu, hgb low requiring transfusion 11/28: Left UE edema > Right UE, s/p blood transfusion 11/27. Objective Objective Current Medications Medications (Trade) Dose Ordered Sig/Pauline Route PRN Reason Start Time Stop Time Status Last Admin Dose Admin Acetaminophen (Tylenol) 650 mg Q4H PRN GT T>100.5 11/27/18 18:18 12/22/18 18:17 Albuterol/ Ipratropium (Albuterol/ Ipratropium) 3 ml Q4H PRN HHN Shortness of Breath 11/27/18 18:18 12/02/18 18:17 Carbidopa/Levodopa (Sinemet 25/100) 1 tab THREE TIMES A DAY GT 11/27/18 18:00 12/27/18 17:59 11/27/18 18:53 Clonidine HCl (Catapres Tab) 0.1 mg Q4H PRN GT sbp>170mmHg 11/27/18 18:18 12/22/18 18:17 Dextrose (Dextrose 50%) 25 ml Q30M PRN IV Hypoglycemia 11/27/18 18:18 12/18/18 18:17 Dextrose (Dextrose 50%) 50 ml Q30M PRN IV Hypoglycemia 11/27/18 18:18 12/18/18 18:17 Morphine Sulfate (Morphine Sulfate) 2 mg Q4H PRN IVP Severe Pain (Pain Scale 7-10) 11/27/18 18:19 11/29/18 18:18 Piperacillin Sod/ Tazobactam Sod 3.375 gm/Sodium Chloride 110 ml @ 27.5 mls/hr EVERY 8 HOURS IVPB 11/27/18 22:00 12/02/18 23:59 11/28/18 05:10 Vancomycin HCl (Vanco rx to dose) 1 ea DAILY PRN MISC Per rx protocol 11/27/18 18:18 12/27/18 18:17 Vancomycin HCl 1 gm/Dextrose 275 ml @ 183.708 mls/hr Q12HR@1100,2300 IVPB 11/27/18 23:00 11/29/18 22:59 11/27/18 23:11 Last 24 Hour Vital Signs Date Time Temp Pulse Resp B/P (MAP) Pulse Ox O2 Delivery O2 Flow Rate FiO2 11/28/18 07:00 130 26 125/104 (111) 98 11/28/18 06:00 129 26 128/71 (90) 98 11/28/18 05:00 125 23 112/57 (75) 98 11/28/18 04:00 Nasal Cannula 3.0 11/28/18 04:00 123 11/28/18 04:00 98.6 124 25 121/96 (104) 99 11/28/18 03:00 123 25 95/58 (70) 99 11/28/18 02:00 124 26 100/64 (76) 100 11/28/18 01:00 98.5 129 31 90/50 (63) 99 11/28/18 00:00 99.0 137 33 93/51 (65) 98 11/28/18 00:00 Nasal Cannula 3.0 11/28/18 00:00 136 11/27/18 23:30 137 34 105/58 (74) 98 11/27/18 23:00 137 38 97/48 (64) 95 11/27/18 22:30 99.0 135 37 95/57 (70) 95 11/27/18 22:00 137 33 105/53 (70) 98 11/27/18 21:30 142 29 105/54 (71) 98 11/27/18 21:00 143 28 107/57 (74) 99 11/27/18 20:30 146 28 108/52 (70) 99 11/27/18 20:00 Nasal Cannula 3.0 11/27/18 20:00 99.0 153 29 93/56 (68) 99 11/27/18 20:00 153 11/27/18 19:51 94 Nasal Cannula 2.0 28 11/27/18 19:50 154 21 94 Nasal Cannula 2.0 28 11/27/18 19:00 99.0 142 20 99/56 (70) 98 11/27/18 18:30 128 25 99/55 (70) 100 11/27/18 18:02 129 26 132/79 (96) 100 11/27/18 17:30 129 11/27/18 17:30 98.3 129 25 101/51 (68) 100 11/27/18 16:00 Nasal Cannula 3.0 11/27/18 12:00 Nasal Cannula 3.0 11/27/18 12:00 98.4 111 25 101/51 (68) 100 11/27/18 11:26 108 11/27/18 11:23 100.9 11/27/18 10:44 120 20 100 Nasal Cannula 2.0 28 11/27/18 10:44 100 Nasal Cannula 2.0 28 11/27/18 08:00 98.6 115 23 93/52 (66) 100 11/27/18 08:00 Nasal Cannula 3.0 11/27/18 07:31 113 11/27/18 04:00 99.1 120 20 94/47 (63) 98 11/27/18 04:00 Nasal Cannula 3.0 11/27/18 04:00 114 11/27/18 00:00 97.7 109 20 97/54 (68) 98 11/27/18 00:00 Nasal Cannula 3.0 11/27/18 00:00 103 11/26/18 21:00 98 Nasal Cannula 2.0 28 11/26/18 21:00 105 18 98 Nasal Cannula 2.0 28 11/26/18 20:00 97.7 98 20 96/53 (67) 100 11/26/18 20:00 Nasal Cannula 3.0 11/26/18 19:08 97 11/26/18 16:00 Nasal Cannula 3.0 11/26/18 16:00 98.1 89 22 119/62 (81) 98 11/26/18 15:21 87 11/26/18 12:00 Nasal Cannula 3.0 11/26/18 12:00 97.5 100 18 97/55 (69) 100 11/26/18 11:36 94 11/26/18 08:00 97.7 84 20 104/61 (75) 100 11/26/18 08:00 Nasal Cannula 3.0 11/26/18 08:00 92 11/26/18 07:36 100 Nasal Cannula 2.0 28 11/26/18 07:36 87 20 100 Nasal Cannula 2.0 28 Intake and Output 11/27/18 11/28/18 18:59 06:59 Intake Total 1429.916 ml 1025.000 ml Output Total 310 ml Balance 1429.916 ml 715.000 ml Free Water 120 ml 30 ml IV Total 699.916 ml 385.000 ml Tube Feeding 550 ml 110 ml Blood Product 500 ml Other 60 ml Output Urine Total 310 ml # Bowel Movements 4 1 Labs Test 11/26/18 04:00 11/27/18 03:53 11/27/18 18:25 11/28/18 01:27 White Blood Count 11.6 K/UL (4.8-10.8) 20.7 K/UL (4.8-10.8) 22.2 K/UL (4.8-10.8) 28.4 K/UL (4.8-10.8) Red Blood Count 2.75 M/UL (4.70-6.10) 2.21 M/UL (4.70-6.10) 1.94 M/UL (4.70-6.10) 3.03 M/UL (4.70-6.10) Hemoglobin 8.9 G/DL (14.2-18.0) 7.2 G/DL (14.2-18.0) 6.1 G/DL (14.2-18.0) 9.7 G/DL (14.2-18.0) Hematocrit 26.4 % (42.0-52.0) 21.4 % (42.0-52.0) 17.7 % (42.0-52.0) 27.8 % (42.0-52.0) Mean Corpuscular Volume 96 FL (80-99) 97 FL (80-99) 91 FL (80-99) 92 FL (80- 99) Mean Corpuscular Hemoglobin 32.3 PG (27.0-31.0) 32.5 PG (27.0-31.0) 31.6 PG (27.0-31.0) 31.9 PG (27.0-31.0) Mean Corpuscular Hemoglobin Concent 33.7 G/DL (32.0-36.0) 33.6 G/DL (32.0-36.0) 34.7 G/DL (32.0-36.0) 34.7 G/DL (32.0-36.0) Red Cell Distribution Width 17.0 % (11.6-14.8) 17.2 % (11.6-14.8) 15.9 % (11.6-14.8) 15.3 % (11.6-14.8) Platelet Count 310 K/UL (150-450) 383 K/UL (150-450) 291 K/UL (150-450) 263 K/UL (150-450) Mean Platelet Volume 5.2 FL (6.5-10.1) 5.0 FL (6.5-10.1) 5.0 FL (6.5-10.1) 5.2 FL (6.5-10.1) Neutrophils (%) (Auto) 81.4 % (45.0-75.0) % (45.0-75.0) % (45.0-75.0) % (45.0-75.0) Lymphocytes (%) (Auto) 11.7 % (20.0-45.0) % (20.0-45.0) % (20.0-45.0) % (20.0-45.0) Monocytes (%) (Auto) 5.5 % (1.0-10.0) % (1.0-10.0) % (1.0-10.0) % (1.0-10.0) Eosinophils (%) (Auto) 0.8 % (0.0-3.0) % (0.0-3.0) % (0.0-3.0) % (0.0-3.0) Basophils (%) (Auto) 0.6 % (0.0-2.0) % (0.0-2.0) % (0.0-2.0) % (0.0-2.0) Sodium Level 138 MMOL/L (136-145) 138 MMOL/L (136-145) 137 MMOL/L (136-145) Potassium Level 4.3 MMOL/L (3.5-5.1) 5.3 MMOL/L (3.5-5.1) 4.6 MMOL/L (3.5-5.1) Chloride Level 104 MMOL/L (98-107) 104 MMOL/L (98-107) 104 MMOL/L (98-107) Carbon Dioxide Level 29 MMOL/L (21-32) 26 MMOL/L (21-32) 26 MMOL/L (21-32) Anion Gap 5 mmol/L (5-15) 8 mmol/L (5-15) 7 mmol/L (5-15) Blood Urea Nitrogen 18 mg/dL (7-18) 24 mg/dL (7-18) 35 mg/dL (7-18) Creatinine 0.6 MG/DL (0.55-1.30) 0.6 MG/DL (0.55-1.30) 0.6 MG/DL (0.55-1.30) Estimat Glomerular Filtration Rate mL/min (>60) mL/min (>60) mL/min (>60) Glucose Level 116 MG/DL (74-106) 125 MG/DL (74-106) 169 MG/DL (74-106) Calcium Level 8.1 MG/DL (8.5-10.1) 8.0 MG/DL (8.5-10.1) 7.5 MG/DL (8.5-10.1) Magnesium Level 1.9 MG/DL (1.8-2.4) Differential Total Cells Counted 100 100 100 Neutrophils % (Manual) 83 % (45-75) 86 % (45-75) 84 % (45-75) Lymphocytes % (Manual) 10 % (20-45) 9 % (20-45) 10 % (20-45) Monocytes % (Manual) 6 % (1-10) 2 % (1-10) 3 % (1-10) Eosinophils % (Manual) 1 % (0-3) 0 % (0-3) 0 % (0-3) Basophils % (Manual) 0 % (0-2) 0 % (0-2) 0 % (0-2) Band Neutrophils 0 % (0-8) 2 % (0-8) 3 % (0-8) Platelet Estimate Adequate Adequate Adequate Platelet Morphology Normal Normal Normal Hypochromasia 3+ 1+ Anisocytosis 1+ 1+ Spherocytes 2+ Myelocytes % 1 % (0-0) Polychromasia 1+ Prothrombin Time 11.4 SEC (9.30-11.50) Prothromb Time International Ratio 1.1 (0.9-1.1) Activated Partial Thromboplast Time 25 SEC (23-33) Total Bilirubin 0.4 MG/DL (0.2-1.0) Aspartate Amino Transf (AST/SGOT) 21 U/L (15-37) Alanine Aminotransferase (ALT/SGPT) 11 U/L (12-78) Alkaline Phosphatase 69 U/L (46-116) Total Protein 3.6 G/DL (6.4-8.2) Albumin 1.2 G/DL (3.4-5.0) Globulin 2.4 g/dL Albumin/Globulin Ratio 0.5 (1.0-2.7) Test 11/28/18 04:30 White Blood Count 29.2 K/UL (4.8-10.8) Red Blood Count 3.08 M/UL (4.70-6.10) Hemoglobin 9.8 G/DL (14.2-18.0) Hematocrit 28.5 % (42.0-52.0) Mean Corpuscular Volume 93 FL (80-99) Mean Corpuscular Hemoglobin 31.9 PG (27.0-31.0) Mean Corpuscular Hemoglobin Concent 34.4 G/DL (32.0-36.0) Red Cell Distribution Width 15.1 % (11.6-14.8) Platelet Count 261 K/UL (150-450) Mean Platelet Volume 5.0 FL (6.5-10.1) Neutrophils (%) (Auto) % (45.0-75.0) Lymphocytes (%) (Auto) % (20.0-45.0) Monocytes (%) (Auto) % (1.0-10.0) Eosinophils (%) (Auto) % (0.0-3.0) Basophils (%) (Auto) % (0.0-2.0) Sodium Level 141 MMOL/L (136-145) Potassium Level 4.8 MMOL/L (3.5-5.1) Chloride Level 107 MMOL/L (98-107) Carbon Dioxide Level 23 MMOL/L (21-32) Anion Gap 12 mmol/L (5-15) Blood Urea Nitrogen 47 mg/dL (7-18) Creatinine 0.8 MG/DL (0.55-1.30) Estimat Glomerular Filtration Rate mL/min (>60) Glucose Level 158 MG/DL (74-106) Uric Acid 2.9 MG/DL (2.6-7.2) Calcium Level 7.8 MG/DL (8.5-10.1) Phosphorus Level 5.1 MG/DL (2.5-4.9) Magnesium Level 1.6 MG/DL (1.8-2.4) Total Bilirubin 0.7 MG/DL (0.2-1.0) Aspartate Amino Transf (AST/SGOT) 27 U/L (15-37) Alanine Aminotransferase (ALT/SGPT) 15 U/L (12-78) Alkaline Phosphatase 70 U/L (46-116) Total Protein 4.0 G/DL (6.4-8.2) Albumin 1.2 G/DL (3.4-5.0) Globulin 2.8 g/dL Albumin/Globulin Ratio 0.4 (1.0-2.7) Height (Feet): 5 Height (Inches): 7.00 Weight (Pounds): 128 Objective General Appearance: WD/WN Lines, tubes and drains: central line HEENT: normocephalic, atraumatic, / Neck: non-tender, normal alignment Breasts: no masses Cardiovascular/Chest: normal peripheral pulses, normal rate, regular rhythm Abdomen: normal bowel sounds, non tender ++ peg Genitourinary/Rectal: normal genital exam, heme negative stool Extremities: normal range of motion, ++Edema RUE > L UE Skin Exam: normal pigmentation Neurologic: screen tacker II-XII grossly normal Megan Downing NP Nov 28, 2018 07:23
--- NOTE | 2018-11-28 07:33 | NUR ---
NURSE NOTES: Report received from MONA Cohen
--- NOTE | 2018-11-28 08:10 | NUR ---
NURSE NOTES: Asleep when received, no apparent acute distress.Oxygen via nasal canula at 3lpm.Easily arousal to verbal and tactile stimuli.Sinus tach on the monitor.HOB elevated to prevent aspiration.NPO at this time for possible EGD and colonoscopy.Unstable at this time. GT placement checked,patent and intact. Abdomen soft and non distended,noted with dark red stool. Peripheral line left upper arm 18G and left wrist G18 patent with no s/s infiltration. Bradley catheter in place , o urine output. Side rails padded for seizure precaution. Turned and repositioned.Mouth care done.Kept clean and dry.Will continue to monitor.
[2018-11-28] MEDS: Vancomycin 1 GM in D5W 275 ML IVPB SCH (08:11)
[2018-11-28] MEDS: Levodopa/Carbidopa 25/100 tab GT SCH ×3 (08:11→18:21)
--- NOTE | 2018-11-28 08:16 | NUR ---
NURSE NOTES: Seen by Dr Wellington,made aware poor urine output.Order to follow with Dr Trinidad
--- NOTE | 2018-11-28 08:30 | General Progress Note ---
Assessment/Plan Problem List: (1) Acute DVT (deep venous thrombosis) ICD Codes: I82.409 - Acute embolism and thrombosis of unspecified deep veins of unspecified lower extremity SNOMED: 204558116738472 (2) UTI (urinary tract infection) ICD Codes: N39.0 - Urinary tract infection, site not specified SNOMED: 20783030, 954380132 Qualifiers: Qualified Codes: N30.00 - Acute cystitis without hematuria (3) Anemia, chronic disease ICD Codes: D63.8 - Anemia in other chronic diseases classified elsewhere SNOMED: 804080438, 999006965 (4) Parkinson disease ICD Codes: G20 - Parkinson's disease SNOMED: 81450601 (5) Alzheimer's dementia ICD Codes: G30.9 - Alzheimer's disease, unspecified; F02.80 - Dementia in other diseases classified elsewhere without behavioral disturbance SNOMED: 72867729 (6) COPD (chronic obstructive pulmonary disease) ICD Codes: J44.9 - Chronic obstructive pulmonary disease, unspecified SNOMED: 17578462 Status: unchanged Assessment/Plan: o2 pulm tx abx pt diet heme f/u cbc bmp am ltach eval Subjective Constitutional: Reports: weakness Allergies: Coded Allergies: No Known Allergies (Unverified , 11/18/18) All Systems: reviewed and negative except above Subjective o2nc sleepy in icu Objective Last 24 Hour Vital Signs Date Time Temp Pulse Resp B/P (MAP) Pulse Ox O2 Delivery O2 Flow Rate FiO2 11/28/18 08:00 98.6 135 24 104/61 (75) 96 11/28/18 08:00 Nasal Cannula 3.0 11/28/18 07:00 130 26 125/104 (111) 98 11/28/18 06:00 129 26 128/71 (90) 98 11/28/18 05:00 125 23 112/57 (75) 98 11/28/18 04:00 Nasal Cannula 3.0 11/28/18 04:00 123 11/28/18 04:00 98.6 124 25 121/96 (104) 99 11/28/18 03:00 123 25 95/58 (70) 99 11/28/18 02:00 124 26 100/64 (76) 100 11/28/18 01:00 98.5 129 31 90/50 (63) 99 11/28/18 00:00 99.0 137 33 93/51 (65) 98 11/28/18 00:00 Nasal Cannula 3.0 11/28/18 00:00 136 11/27/18 23:30 137 34 105/58 (74) 98 11/27/18 23:00 137 38 97/48 (64) 95 11/27/18 22:30 99.0 135 37 95/57 (70) 95 11/27/18 22:00 137 33 105/53 (70) 98 11/27/18 21:30 142 29 105/54 (71) 98 11/27/18 21:00 143 28 107/57 (74) 99 11/27/18 20:30 146 28 108/52 (70) 99 11/27/18 20:00 Nasal Cannula 3.0 11/27/18 20:00 99.0 153 29 93/56 (68) 99 11/27/18 20:00 153 11/27/18 19:51 94 Nasal Cannula 2.0 28 11/27/18 19:50 154 21 94 Nasal Cannula 2.0 28 11/27/18 19:00 99.0 142 20 99/56 (70) 98 11/27/18 18:30 128 25 99/55 (70) 100 11/27/18 18:02 129 26 132/79 (96) 100 11/27/18 17:30 129 11/27/18 17:30 98.3 129 25 101/51 (68) 100 11/27/18 16:00 Nasal Cannula 3.0 11/27/18 12:00 Nasal Cannula 3.0 11/27/18 12:00 98.4 111 25 101/51 (68) 100 11/27/18 11:26 108 11/27/18 11:23 100.9 11/27/18 10:44 120 20 100 Nasal Cannula 2.0 28 11/27/18 10:44 100 Nasal Cannula 2.0 28 Intake and Output 11/27/18 11/28/18 18:59 06:59 Intake Total 1429.916 ml 1025.000 ml Output Total 310 ml Balance 1429.916 ml 715.000 ml Free Water 120 ml 30 ml IV Total 699.916 ml 385.000 ml Tube Feeding 550 ml 110 ml Blood Product 500 ml Other 60 ml Output Urine Total 310 ml # Bowel Movements 4 1 Laboratory Tests 11/27/18 18:25: White Blood Count 22.2*H, Red Blood Count 1.94L, Hemoglobin 6.1*L, Hematocrit 17.7L, Mean Corpuscular Volume 91, Mean Corpuscular Hemoglobin 31.6H, Mean Corpuscular Hemoglobin Concent 34.7, Red Cell Distribution Width 15.9H, Platelet Count 291, Mean Platelet Volume 5.0L, Neutrophils (%) (Auto) , Lymphocytes (%) (Auto) , Monocytes (%) (Auto) , Eosinophils (%) (Auto) , Basophils (%) (Auto) , Differential Total Cells Counted 100, Neutrophils % ( Manual) 86H, Lymphocytes % (Manual) 9L, Monocytes % (Manual) 2, Eosinophils % ( Manual) 0, Basophils % (Manual) 0, Myelocytes % 1H, Band Neutrophils 2, Platelet Estimate Adequate, Platelet Morphology Normal, Polychromasia 1+, Hypochromasia 1+, Anisocytosis 1+, Prothrombin Time 11.4, Prothromb Time International Ratio 1.1, Activated Partial Thromboplast Time 25, Sodium Level 137, Potassium Level 4.6, Chloride Level 104, Carbon Dioxide Level 26, Anion Gap 7, Blood Urea Nitrogen 35H, Creatinine 0.6, Estimat Glomerular Filtration Rate , Glucose Level 169H, Calcium Level 7.5L, Total Bilirubin 0.4, Aspartate Amino Transf (AST/SGOT) 21, Alanine Aminotransferase (ALT/SGPT) 11L, Alkaline Phosphatase 69, Total Protein 3.6L, Albumin 1.2L, Globulin 2.4, Albumin/ Globulin Ratio 0.5L 11/28/18 01:27: White Blood Count 28.4*H, Red Blood Count 3.03L, Hemoglobin 9.7#L, Hematocrit 27.8#L, Mean Corpuscular Volume 92, Mean Corpuscular Hemoglobin 31.9H, Mean Corpuscular Hemoglobin Concent 34.7, Red Cell Distribution Width 15.3H, Platelet Count 263, Mean Platelet Volume 5.2L, Neutrophils (%) (Auto) , Lymphocytes (%) (Auto) , Monocytes (%) (Auto) , Eosinophils (%) (Auto) , Basophils (%) (Auto) , Differential Total Cells Counted 100, Neutrophils % ( Manual) 84H, Lymphocytes % (Manual) 10L, Monocytes % (Manual) 3, Eosinophils % ( Manual) 0, Basophils % (Manual) 0, Band Neutrophils 3, Platelet Estimate Adequate, Platelet Morphology Normal 11/28/18 04:30: White Blood Count 29.2*H, Red Blood Count 3.08L, Hemoglobin 9.8L, Hematocrit 28.5L, Mean Corpuscular Volume 93, Mean Corpuscular Hemoglobin 31.9H, Mean Corpuscular Hemoglobin Concent 34.4, Red Cell Distribution Width 15.1H, Platelet Count 261, Mean Platelet Volume 5.0L, Neutrophils (%) (Auto) , Lymphocytes (%) (Auto) , Monocytes (%) (Auto) , Eosinophils (%) (Auto) , Basophils (%) (Auto) , Differential Total Cells Counted 100, Neutrophils % ( Manual) 91H, Lymphocytes % (Manual) 6L, Monocytes % (Manual) 2, Eosinophils % ( Manual) 0, Basophils % (Manual) 1, Band Neutrophils 0, Platelet Estimate Adequate, Platelet Morphology Normal, Hypochromasia 2+, Anisocytosis 1+, Sodium Level 141, Potassium Level 4.8, Chloride Level 107, Carbon Dioxide Level 23, Anion Gap 12, Blood Urea Nitrogen 47H, Creatinine 0.8, Estimat Glomerular Filtration Rate , Glucose Level 158H, Calcium Level 7.8L, Total Bilirubin 0.7, Aspartate Amino Transf (AST/SGOT) 27, Alanine Aminotransferase (ALT/SGPT) 15, Alkaline Phosphatase 70, Total Protein 4.0L, Albumin 1.2L, Globulin 2.8, Albumin /Globulin Ratio 0.4L, Spherocytes 1+, Uric Acid 2.9, Phosphorus Level 5.1H, Magnesium Level 1.6L Height (Feet): 5 Height (Inches): 7.00 Weight (Pounds): 128 General Appearance: lethargic EENT: normal ENT inspection Neck: normal alignment Cardiovascular: normal peripheral pulses, normal rate, regular rhythm Respiratory/Chest: chest wall non-tender, lungs clear, normal breath sounds Abdomen: normal bowel sounds, non tender, soft Extremities: normal inspection Edema: no edema noted Arm (L), no edema noted Arm (R), no edema noted Leg (L), no edema noted Leg (R), no edema noted Pedal (L), no edema noted Pedal (R), no edema noted Generalized Neurologic: motor weakness Skin: normal pigmentation, warm/dry Abdullahi Gonzalez DO Nov 28, 2018 08:30
--- NOTE | 2018-11-28 09:33 | Anethesia Preoperative Eval ---
Anesthesia Pre-op PMH/ROS General Date of Evaluation: Nov 28, 2018 Time of Evaluation: 09:32 Anesthesiologist: Korey ASA Score: ASA 4 Mallampati Score Class I : Soft palate, uvula, fauces, pillars visible Class II: Soft palate, uvula, fauces visible Class III: Soft palate, base of uvula visible Class IV: Only hard plate visible Mallampati Classification: Class II Surgeon: Marcel Diagnosis: GI Bleed, Sepsis Surgical Procedure: EGD Anesthesia History: none Family History: no anesthesia problems Allergies: Coded Allergies: No Known Allergies (Unverified , 11/18/18) Medications: see eMAR Patient NPO?: Yes Past Medical History Cardiovascular: Reports: HTN Pulmonary: Reports: COPD Neurologic/Psychiatric: Reports: dementia, other - Parkinsons Hematology/Immune: Reports: anemia, other - Sepsis Anesthesia Pre-op Phys. Exam Physician Exam Last Vital Signs Date Time Temp Pulse Resp B/P (MAP) Pulse Ox O2 Delivery O2 Flow Rate FiO2 11/28/18 09:00 130 11/28/18 08:00 98.6 24 104/61 (75) 96 11/28/18 08:00 Nasal Cannula 3.0 11/27/18 19:51 28 Constitutional: NAD Neurologic: CN 2-12 intact Cardiovascular: RRR Respiratory: CTA Gastrointestinal: S/NT/ND Airway Exam Mallampati Score: Class II MO: limited ROM: limited Teeth: missing, intact Anesthesia Pre-op A/P Labs Hematology Test 11/27/18 18:25 11/28/18 01:27 11/28/18 04:30 White Blood Count 22.2 K/UL (4.8-10.8) *H 28.4 K/UL (4.8-10.8) *H 29.2 K/UL (4.8-10.8) *H Red Blood Count 1.94 M/UL (4.70-6.10) L 3.03 M/UL (4.70-6.10) L 3.08 M/UL (4.70-6.10) L Hemoglobin 6.1 G/DL (14.2-18.0) *L 9.7 G/DL (14.2-18.0) #L 9.8 G/DL (14.2-18.0) L Hematocrit 17.7 % (42.0-52.0) L 27.8 % (42.0-52.0) #L 28.5 % (42.0-52.0) L Mean Corpuscular Volume 91 FL (80-99) 92 FL (80-99) 93 FL (80-99) Mean Corpuscular Hemoglobin 31.6 PG (27.0-31.0) H 31.9 PG (27.0-31.0) H 31.9 PG (27.0-31.0) H Mean Corpuscular Hemoglobin Concent 34.7 G/DL (32.0-36.0) 34.7 G/DL (32.0-36.0) 34.4 G/DL (32.0-36.0) Red Cell Distribution Width 15.9 % (11.6-14.8) H 15.3 % (11.6-14.8) H 15.1 % (11.6-14.8) H Platelet Count 291 K/UL (150-450) 263 K/UL (150-450) 261 K/UL (150-450) Mean Platelet Volume 5.0 FL (6.5-10.1) L 5.2 FL (6.5-10.1) L 5.0 FL (6.5-10.1) L Neutrophils (%) (Auto) % (45.0-75.0) % (45.0-75.0) % (45.0-75.0) Lymphocytes (%) (Auto) % (20.0-45.0) % (20.0-45.0) % (20.0-45.0) Monocytes (%) (Auto) % (1.0-10.0) % (1.0-10.0) % (1.0-10.0) Eosinophils (%) (Auto) % (0.0-3.0) % (0.0-3.0) % (0.0-3.0) Basophils (%) (Auto) % (0.0-2.0) % (0.0-2.0) % (0.0-2.0) Differential Total Cells Counted 100 100 100 Neutrophils % (Manual) 86 % (45-75) H 84 % (45-75) H 91 % (45-75) H Lymphocytes % (Manual) 9 % (20-45) L 10 % (20-45) L 6 % (20-45) L Monocytes % (Manual) 2 % (1-10) 3 % (1-10) 2 % (1-10) Eosinophils % (Manual) 0 % (0-3) 0 % (0-3) 0 % (0-3) Basophils % (Manual) 0 % (0-2) 0 % (0-2) 1 % (0-2) Myelocytes % 1 % (0-0) H Band Neutrophils 2 % (0-8) 3 % (0-8) 0 % (0-8) Platelet Estimate Adequate Adequate Adequate Platelet Morphology Normal Normal Normal Polychromasia 1+ Hypochromasia 1+ 2+ Anisocytosis 1+ 1+ Spherocytes 1+ Coagulation Test 11/27/18 18:25 Prothrombin Time 11.4 SEC (9.30-11.50) Prothromb Time International Ratio 1.1 (0.9-1.1) Activated Partial Thromboplast Time 25 SEC (23-33) Chemistry Test 11/27/18 18:25 11/28/18 04:30 Sodium Level 137 MMOL/L (136-145) 141 MMOL/L (136-145) Potassium Level 4.6 MMOL/L (3.5-5.1) 4.8 MMOL/L (3.5-5.1) Chloride Level 104 MMOL/L (98-107) 107 MMOL/L (98-107) Carbon Dioxide Level 26 MMOL/L (21-32) 23 MMOL/L (21-32) Anion Gap 7 mmol/L (5-15) 12 mmol/L (5-15) Blood Urea Nitrogen 35 mg/dL (7-18) H 47 mg/dL (7-18) H Creatinine 0.6 MG/DL (0.55-1.30) 0.8 MG/DL (0.55-1.30) Estimat Glomerular Filtration Rate mL/min (>60) mL/min (>60) Glucose Level 169 MG/DL (74-106) H 158 MG/DL (74-106) H Calcium Level 7.5 MG/DL (8.5-10.1) L 7.8 MG/DL (8.5-10.1) L Total Bilirubin 0.4 MG/DL (0.2-1.0) 0.7 MG/DL (0.2-1.0) Aspartate Amino Transf (AST/SGOT) 21 U/L (15-37) 27 U/L (15-37) Alanine Aminotransferase (ALT/SGPT) 11 U/L (12-78) L 15 U/L (12-78) Alkaline Phosphatase 69 U/L (46-116) 70 U/L (46-116) Total Protein 3.6 G/DL (6.4-8.2) L 4.0 G/DL (6.4-8.2) L Albumin 1.2 G/DL (3.4-5.0) L 1.2 G/DL (3.4-5.0) L Globulin 2.4 g/dL 2.8 g/dL Albumin/Globulin Ratio 0.5 (1.0-2.7) L 0.4 (1.0-2.7) L Uric Acid 2.9 MG/DL (2.6-7.2) Phosphorus Level 5.1 MG/DL (2.5-4.9) H Magnesium Level 1.6 MG/DL (1.8-2.4) L Risk Assessment & Plan Assessment: ASA 4 Plan: Pt is at significant risk for anesthesia. Will delay procedure at this time. Will proceed when patient has stabilized Status Change Before Surgery: No Rahul Nair MD Nov 28, 2018 09:32
--- NOTE | 2018-11-28 09:33 | General Progress Note ---
Assessment/Plan Status: unchanged Assessment/Plan: Assessment - Sinus Tach - Leukocytosis - acute DVT - bacteremia - COPD - anemia - recurrent GIB - diverticulosis - Critical Recommendations - per message from anesthesia service, patient not stable for anesthesia at this time - transfuse as needed - abx per ID - continue to hold anticoagulation - golytely lavage - will consider GI procedures this weekend if continues to bleed Subjective Allergies: Coded Allergies: No Known Allergies (Unverified , 11/18/18) Subjective above noted d/w staff registered nurse restarted on Eliquis last dose 7/3 PM noted recurrent bouts of dark blood in stool currently with dark blood in bed seen in ICU patient non-communicative no family Objective Last 24 Hour Vital Signs Date Time Temp Pulse Resp B/P (MAP) Pulse Ox O2 Delivery O2 Flow Rate FiO2 11/28/18 09:00 130 11/28/18 08:00 98.6 135 24 104/61 (75) 96 11/28/18 08:00 Nasal Cannula 3.0 11/28/18 07:00 130 26 125/104 (111) 98 11/28/18 06:00 129 26 128/71 (90) 98 11/28/18 05:00 125 23 112/57 (75) 98 11/28/18 04:00 Nasal Cannula 3.0 11/28/18 04:00 123 11/28/18 04:00 98.6 124 25 121/96 (104) 99 11/28/18 03:00 123 25 95/58 (70) 99 11/28/18 02:00 124 26 100/64 (76) 100 11/28/18 01:00 98.5 129 31 90/50 (63) 99 11/28/18 00:00 99.0 137 33 93/51 (65) 98 11/28/18 00:00 Nasal Cannula 3.0 11/28/18 00:00 136 11/27/18 23:30 137 34 105/58 (74) 98 11/27/18 23:00 137 38 97/48 (64) 95 11/27/18 22:30 99.0 135 37 95/57 (70) 95 11/27/18 22:00 137 33 105/53 (70) 98 11/27/18 21:30 142 29 105/54 (71) 98 11/27/18 21:00 143 28 107/57 (74) 99 11/27/18 20:30 146 28 108/52 (70) 99 11/27/18 20:00 Nasal Cannula 3.0 11/27/18 20:00 99.0 153 29 93/56 (68) 99 11/27/18 20:00 153 11/27/18 19:51 94 Nasal Cannula 2.0 28 11/27/18 19:50 154 21 94 Nasal Cannula 2.0 28 11/27/18 19:00 99.0 142 20 99/56 (70) 98 11/27/18 18:30 128 25 99/55 (70) 100 11/27/18 18:02 129 26 132/79 (96) 100 11/27/18 17:30 129 11/27/18 17:30 98.3 129 25 101/51 (68) 100 11/27/18 16:00 Nasal Cannula 3.0 11/27/18 12:00 Nasal Cannula 3.0 11/27/18 12:00 98.4 111 25 101/51 (68) 100 11/27/18 11:26 108 11/27/18 11:23 100.9 11/27/18 10:44 120 20 100 Nasal Cannula 2.0 28 11/27/18 10:44 100 Nasal Cannula 2.0 28 Intake and Output 11/27/18 11/28/18 18:59 06:59 Intake Total 1429.916 ml 1025.000 ml Output Total 310 ml Balance 1429.916 ml 715.000 ml Free Water 120 ml 30 ml IV Total 699.916 ml 385.000 ml Tube Feeding 550 ml 110 ml Blood Product 500 ml Other 60 ml Output Urine Total 310 ml # Bowel Movements 4 1 Laboratory Tests 11/27/18 18:25: White Blood Count 22.2*H, Red Blood Count 1.94L, Hemoglobin 6.1*L, Hematocrit 17.7L, Mean Corpuscular Volume 91, Mean Corpuscular Hemoglobin 31.6H, Mean Corpuscular Hemoglobin Concent 34.7, Red Cell Distribution Width 15.9H, Platelet Count 291, Mean Platelet Volume 5.0L, Neutrophils (%) (Auto) , Lymphocytes (%) (Auto) , Monocytes (%) (Auto) , Eosinophils (%) (Auto) , Basophils (%) (Auto) , Differential Total Cells Counted 100, Neutrophils % ( Manual) 86H, Lymphocytes % (Manual) 9L, Monocytes % (Manual) 2, Eosinophils % ( Manual) 0, Basophils % (Manual) 0, Myelocytes % 1H, Band Neutrophils 2, Platelet Estimate Adequate, Platelet Morphology Normal, Polychromasia 1+, Hypochromasia 1+, Anisocytosis 1+, Prothrombin Time 11.4, Prothromb Time International Ratio 1.1, Activated Partial Thromboplast Time 25, Sodium Level 137, Potassium Level 4.6, Chloride Level 104, Carbon Dioxide Level 26, Anion Gap 7, Blood Urea Nitrogen 35H, Creatinine 0.6, Estimat Glomerular Filtration Rate , Glucose Level 169H, Calcium Level 7.5L, Total Bilirubin 0.4, Aspartate Amino Transf (AST/SGOT) 21, Alanine Aminotransferase (ALT/SGPT) 11L, Alkaline Phosphatase 69, Total Protein 3.6L, Albumin 1.2L, Globulin 2.4, Albumin/ Globulin Ratio 0.5L 11/28/18 01:27: White Blood Count 28.4*H, Red Blood Count 3.03L, Hemoglobin 9.7#L, Hematocrit 27.8#L, Mean Corpuscular Volume 92, Mean Corpuscular Hemoglobin 31.9H, Mean Corpuscular Hemoglobin Concent 34.7, Red Cell Distribution Width 15.3H, Platelet Count 263, Mean Platelet Volume 5.2L, Neutrophils (%) (Auto) , Lymphocytes (%) (Auto) , Monocytes (%) (Auto) , Eosinophils (%) (Auto) , Basophils (%) (Auto) , Differential Total Cells Counted 100, Neutrophils % ( Manual) 84H, Lymphocytes % (Manual) 10L, Monocytes % (Manual) 3, Eosinophils % ( Manual) 0, Basophils % (Manual) 0, Band Neutrophils 3, Platelet Estimate Adequate, Platelet Morphology Normal 11/28/18 04:30: White Blood Count 29.2*H, Red Blood Count 3.08L, Hemoglobin 9.8L, Hematocrit 28.5L, Mean Corpuscular Volume 93, Mean Corpuscular Hemoglobin 31.9H, Mean Corpuscular Hemoglobin Concent 34.4, Red Cell Distribution Width 15.1H, Platelet Count 261, Mean Platelet Volume 5.0L, Neutrophils (%) (Auto) , Lymphocytes (%) (Auto) , Monocytes (%) (Auto) , Eosinophils (%) (Auto) , Basophils (%) (Auto) , Differential Total Cells Counted 100, Neutrophils % ( Manual) 91H, Lymphocytes % (Manual) 6L, Monocytes % (Manual) 2, Eosinophils % ( Manual) 0, Basophils % (Manual) 1, Band Neutrophils 0, Platelet Estimate Adequate, Platelet Morphology Normal, Hypochromasia 2+, Anisocytosis 1+, Sodium Level 141, Potassium Level 4.8, Chloride Level 107, Carbon Dioxide Level 23, Anion Gap 12, Blood Urea Nitrogen 47H, Creatinine 0.8, Estimat Glomerular Filtration Rate , Glucose Level 158H, Calcium Level 7.8L, Total Bilirubin 0.7, Aspartate Amino Transf (AST/SGOT) 27, Alanine Aminotransferase (ALT/SGPT) 15, Alkaline Phosphatase 70, Total Protein 4.0L, Albumin 1.2L, Globulin 2.8, Albumin /Globulin Ratio 0.4L, Spherocytes 1+, Uric Acid 2.9, Phosphorus Level 5.1H, Magnesium Level 1.6L Height (Feet): 5 Height (Inches): 7.00 Weight (Pounds): 128 Objective obtunded WM NCAT supple Coarse BS RR abd soft, Flat, (+) GT --> lavaged w/o bile or blood (+) LUE edema unresponsive Michael Rod MD Nov 28, 2018 09:33
--- NOTE | 2018-11-28 09:35 | NUR ---
NURSE NOTES: Seen by Dr Centeno,will follow up new orders
[2018-11-28] MEDS ORDERED: Nulytely 4L ORAL ONE (09:45)
--- NOTE | 2018-11-28 10:06 | NUR ---
RADIOLOGY DEPT., CHEST X-RAY DONE.-P.DYE
--- NOTE | 2018-11-28 10:15 | NUR ---
NURSE NOTES: Turned and repositioned, HOB elevated to prevent aspiration.Will continue to monitor.Call light within easy reach.Dr Trinidad made aware poor urine output
--- NOTE | 2018-11-28 10:23 | Pulmonolgy Critical Care Note ---
Critical Care - Asmt/Plan Problems: (1) Lower GI bleed (2) Hemorrhagic shocks (3) Acute DVT (deep venous thrombosis) (4) COPD (chronic obstructive pulmonary disease) (5) S/P insertion of IVC (inferior vena caval) filter (6) Severe protein-calorie malnutrition (7) Seizures (8) Feeding by G-tube (9) Parkinson disease (10) Alzheimer's dementia Respiratory: monitor respiratory rate, adjust FIO2 Renal: F/U I&O, keep IV fluid, check electrolytes Gastrointestinal: continue feedings/current rate, adjust feedings Endocrine: monitor blood sugar Hematologic: transfuse if hgb<8.5 Neurologic: PRN Ativan, PRN Morphine, keep patient comfortable Affect: PRN ativan Prophylaxis: Protonix, Heparin Time Spent (Minutes): 40 Notes Reviewed: networking administrator, cardio, renal Discussed with: nurses, rn case manager hospiceassistant purchasing manager - Objective Last 24 Hour Vital Signs Date Time Temp Pulse Resp B/P (MAP) Pulse Ox O2 Delivery O2 Flow Rate FiO2 11/28/18 09:00 130 11/28/18 08:00 98.6 135 24 104/61 (75) 96 11/28/18 08:00 Nasal Cannula 3.0 11/28/18 07:00 130 26 125/104 (111) 98 11/28/18 06:00 129 26 128/71 (90) 98 11/28/18 05:00 125 23 112/57 (75) 98 11/28/18 04:00 Nasal Cannula 3.0 11/28/18 04:00 123 11/28/18 04:00 98.6 124 25 121/96 (104) 99 11/28/18 03:00 123 25 95/58 (70) 99 11/28/18 02:00 124 26 100/64 (76) 100 11/28/18 01:00 98.5 129 31 90/50 (63) 99 11/28/18 00:00 99.0 137 33 93/51 (65) 98 11/28/18 00:00 Nasal Cannula 3.0 11/28/18 00:00 136 11/27/18 23:30 137 34 105/58 (74) 98 11/27/18 23:00 137 38 97/48 (64) 95 11/27/18 22:30 99.0 135 37 95/57 (70) 95 11/27/18 22:00 137 33 105/53 (70) 98 11/27/18 21:30 142 29 105/54 (71) 98 11/27/18 21:00 143 28 107/57 (74) 99 11/27/18 20:30 146 28 108/52 (70) 99 11/27/18 20:00 Nasal Cannula 3.0 11/27/18 20:00 99.0 153 29 93/56 (68) 99 11/27/18 20:00 153 11/27/18 19:51 94 Nasal Cannula 2.0 28 11/27/18 19:50 154 21 94 Nasal Cannula 2.0 28 11/27/18 19:00 99.0 142 20 99/56 (70) 98 11/27/18 18:30 128 25 99/55 (70) 100 11/27/18 18:02 129 26 132/79 (96) 100 11/27/18 17:30 129 11/27/18 17:30 98.3 129 25 101/51 (68) 100 11/27/18 16:00 Nasal Cannula 3.0 11/27/18 12:00 Nasal Cannula 3.0 11/27/18 12:00 98.4 111 25 101/51 (68) 100 11/27/18 11:26 108 11/27/18 11:23 100.9 11/27/18 10:44 120 20 100 Nasal Cannula 2.0 28 11/27/18 10:44 100 Nasal Cannula 2.0 28 Status: awake Condition: critical, grave HEENT: atraumatic, normocephalic Neck: full ROM Lungs: rhonchi Heart: HR/BP stable Abdomen: soft, non-tender Extremities: no C/C/E Critical Care - Subjective ROS Limited/Unobtainable: Yes Interval Events: still bleeding from rectum Condition: critical EKG Rhythm: Sinus Rhythm FI02: 28 Sputum Amount: None Tube Feeding Amount: 55 I&O: Intake and Output 11/27/18 11/28/18 18:59 06:59 Intake Total 1429.916 ml 1025.000 ml Output Total 310 ml Balance 1429.916 ml 715.000 ml Free Water 120 ml 30 ml IV Total 699.916 ml 385.000 ml Tube Feeding 550 ml 110 ml Blood Product 500 ml Other 60 ml Output Urine Total 310 ml # Bowel Movements 4 1 Labs: Laboratory Tests Test 11/27/18 18:25 11/28/18 01:27 11/28/18 04:30 11/28/18 09:45 White Blood Count 22.2 K/UL (4.8-10.8) *H 28.4 K/UL (4.8-10.8) *H 29.2 K/UL (4.8-10.8) *H Red Blood Count 1.94 M/UL (4.70-6.10) L 3.03 M/UL (4.70-6.10) L 3.08 M/UL (4.70-6.10) L Hemoglobin 6.1 G/DL (14.2-18.0) *L 9.7 G/DL (14.2-18.0) #L 9.8 G/DL (14.2-18.0) L Hematocrit 17.7 % (42.0-52.0) L 27.8 % (42.0-52.0) #L 28.5 % (42.0-52.0) L Mean Corpuscular Volume 91 FL (80-99) 92 FL (80-99) 93 FL (80-99) Mean Corpuscular Hemoglobin 31.6 PG (27.0-31.0) H 31.9 PG (27.0-31.0) H 31.9 PG (27.0-31.0) H Mean Corpuscular Hemoglobin Concent 34.7 G/DL (32.0-36.0) 34.7 G/DL (32.0-36.0) 34.4 G/DL (32.0-36.0) Red Cell Distribution Width 15.9 % (11.6-14.8) H 15.3 % (11.6-14.8) H 15.1 % (11.6-14.8) H Platelet Count 291 K/UL (150-450) 263 K/UL (150-450) 261 K/UL (150-450) Mean Platelet Volume 5.0 FL (6.5-10.1) L 5.2 FL (6.5-10.1) L 5.0 FL (6.5-10.1) L Neutrophils (%) (Auto) % (45.0-75.0) % (45.0-75.0) % (45.0-75.0) Lymphocytes (%) (Auto) % (20.0-45.0) % (20.0-45.0) % (20.0-45.0) Monocytes (%) (Auto) % (1.0-10.0) % (1.0-10.0) % (1.0-10.0) Eosinophils (%) (Auto) % (0.0-3.0) % (0.0-3.0) % (0.0-3.0) Basophils (%) (Auto) % (0.0-2.0) % (0.0-2.0) % (0.0-2.0) Differential Total Cells Counted 100 100 100 Neutrophils % (Manual) 86 % (45-75) H 84 % (45-75) H 91 % (45-75) H Lymphocytes % (Manual) 9 % (20-45) L 10 % (20-45) L 6 % (20-45) L Monocytes % (Manual) 2 % (1-10) 3 % (1-10) 2 % (1-10) Eosinophils % (Manual) 0 % (0-3) 0 % (0-3) 0 % (0-3) Basophils % (Manual) 0 % (0-2) 0 % (0-2) 1 % (0-2) Myelocytes % 1 % (0-0) H Band Neutrophils 2 % (0-8) 3 % (0-8) 0 % (0-8) Platelet Estimate Adequate Adequate Adequate Platelet Morphology Normal Normal Normal Polychromasia 1+ Hypochromasia 1+ 2+ Anisocytosis 1+ 1+ Prothrombin Time 11.4 SEC (9.30-11.50) Prothromb Time International Ratio 1.1 (0.9-1.1) Activated Partial Thromboplast Time 25 SEC (23-33) Sodium Level 137 MMOL/L (136-145) 141 MMOL/L (136-145) Potassium Level 4.6 MMOL/L (3.5-5.1) 4.8 MMOL/L (3.5-5.1) Chloride Level 104 MMOL/L (98-107) 107 MMOL/L (98-107) Carbon Dioxide Level 26 MMOL/L (21-32) 23 MMOL/L (21-32) Anion Gap 7 mmol/L (5-15) 12 mmol/L (5-15) Blood Urea Nitrogen 35 mg/dL (7-18) H 47 mg/dL (7-18) H Creatinine 0.6 MG/DL (0.55-1.30) 0.8 MG/DL (0.55-1.30) Estimat Glomerular Filtration Rate mL/min (>60) mL/min (>60) Glucose Level 169 MG/DL (74-106) H 158 MG/DL (74-106) H Calcium Level 7.5 MG/DL (8.5-10.1) L 7.8 MG/DL (8.5-10.1) L Total Bilirubin 0.4 MG/DL (0.2-1.0) 0.7 MG/DL (0.2-1.0) Aspartate Amino Transf (AST/SGOT) 21 U/L (15-37) 27 U/L (15-37) Alanine Aminotransferase (ALT/SGPT) 11 U/L (12-78) L 15 U/L (12-78) Alkaline Phosphatase 69 U/L (46-116) 70 U/L (46-116) Total Protein 3.6 G/DL (6.4-8.2) L 4.0 G/DL (6.4-8.2) L Albumin 1.2 G/DL (3.4-5.0) L 1.2 G/DL (3.4-5.0) L Globulin 2.4 g/dL 2.8 g/dL Albumin/Globulin Ratio 0.5 (1.0-2.7) L 0.4 (1.0-2.7) L Spherocytes 1+ Uric Acid 2.9 MG/DL (2.6-7.2) Phosphorus Level 5.1 MG/DL (2.5-4.9) H Magnesium Level 1.6 MG/DL (1.8-2.4) L Vancomycin Level Trough Pending David Carrasquillo MD Nov 28, 2018 10:23
--- NOTE | 2018-11-28 11:44 | NUR ---
RD ASSESSMENT & RECOMMENDATIONS SEE CARE ACTIVITY FOR COMPLETE ASSESSMENT DAILY ESTIMATED NEEDS: Needs based on Wounds, sepsis 60.5kg 25-35 kcals/kg 0863-7684 total kcals 1.25-2 g protein/kg 76-121 g total protein 25-30 mL/kg 3997-4255 total fluid mLs NUTRITION DIAGNOSIS: 1) Increased kcal and pro needs r/t wound healing as evidenced by pt w/ wounds, including unstageable sacral, full thickness spinal wound, DTPI BL heels. 2) Swallowing difficulty r/t dysphagia as evidenced by pt w/ Parkinsons dz, GT dependent. CURRENT TF: Now NPO for possible GIB ENTERAL NUTRITION RECOMMENDATIONS: Glucerna 1.2 @60ml/hr x24 hrs to provide 1440ml, 1728 kcal, 86g pro, 1159ml free H2O - As medically able, restart TF at 20ml/hr. - Increase goal rate slowly as tolerated to 60ml/hr x 24 hrs- meets 100% est kcal/prot needs - Flush per MD/ HOB over 30 degrees ADDITIONAL RECOMMENDATIONS: 1) Per SNF: 5'6" ht, 133 lbs wt 2) UNBUNDLER eval if oral grat is appropriate 3) Wound care: Add YOLI BID via GT + VIT C 250mg BID 4) Hypoglycemics prn/ niss 5) Monitor lytes closely w/ lasix, replete as needed
--- NOTE | 2018-11-28 11:48 | Cardiac Electrophysiology PN ---
Assessment/Plan Assessment/Plan 1. Sinus tach due to anemia and sepsis and beta danya withdrawal ( was on Metoprolol 12.5 bid at [facility]) 2. Hypertension. Echo EF 55% 3. Acute right leg DVT and Bilateral UE DVT. S/P IVC filter . Eliquis DCed for severe anemia 4. Staph aureous bacteremia. On Abx by Dr. Yee who recommended FLORINA and is pending consent 5. Parkinsonism. 6. COPD. 7. UTI. 8. Severe nemia and rectal bleed.S/P Colonoscopy on 11/20/18 and transfusion Rescheduled for colonoscopy again 9. Seizure disorder. 10. S/P PEG DW RN Subjective Subjective In sinus tach. Transferred to ICU for GI bleed and got 3 units of PRBC. EGD today cancelled for instability.Scheduled for colonoscopy in am. Objective Last 24 Hour Vital Signs Date Time Temp Pulse Resp B/P (MAP) Pulse Ox O2 Delivery O2 Flow Rate FiO2 11/28/18 10:00 123 24 111/59 (76) 98 11/28/18 09:00 130 11/28/18 09:00 125 24 136/69 (91) 99 11/28/18 08:00 98.6 135 24 104/61 (75) 96 11/28/18 08:00 Nasal Cannula 3.0 11/28/18 07:00 130 26 125/104 (111) 98 11/28/18 06:00 129 26 128/71 (90) 98 11/28/18 05:00 125 23 112/57 (75) 98 11/28/18 04:00 Nasal Cannula 3.0 11/28/18 04:00 123 11/28/18 04:00 98.6 124 25 121/96 (104) 99 11/28/18 03:00 123 25 95/58 (70) 99 11/28/18 02:00 124 26 100/64 (76) 100 11/28/18 01:00 98.5 129 31 90/50 (63) 99 11/28/18 00:00 99.0 137 33 93/51 (65) 98 11/28/18 00:00 Nasal Cannula 3.0 11/28/18 00:00 136 11/27/18 23:30 137 34 105/58 (74) 98 11/27/18 23:00 137 38 97/48 (64) 95 11/27/18 22:30 99.0 135 37 95/57 (70) 95 11/27/18 22:00 137 33 105/53 (70) 98 11/27/18 21:30 142 29 105/54 (71) 98 11/27/18 21:00 143 28 107/57 (74) 99 11/27/18 20:30 146 28 108/52 (70) 99 11/27/18 20:00 Nasal Cannula 3.0 11/27/18 20:00 99.0 153 29 93/56 (68) 99 11/27/18 20:00 153 11/27/18 19:51 94 Nasal Cannula 2.0 28 11/27/18 19:50 154 21 94 Nasal Cannula 2.0 28 11/27/18 19:00 99.0 142 20 99/56 (70) 98 11/27/18 18:30 128 25 99/55 (70) 100 11/27/18 18:02 129 26 132/79 (96) 100 11/27/18 17:30 129 11/27/18 17:30 98.3 129 25 101/51 (68) 100 11/27/18 16:00 Nasal Cannula 3.0 11/27/18 12:00 Nasal Cannula 3.0 11/27/18 12:00 98.4 111 25 101/51 (68) 100 Intake and Output 11/27/18 11/28/18 18:59 06:59 Intake Total 1429.916 ml 1025.000 ml Output Total 310 ml Balance 1429.916 ml 715.000 ml Free Water 120 ml 30 ml IV Total 699.916 ml 385.000 ml Tube Feeding 550 ml 110 ml Blood Product 500 ml Other 60 ml Output Urine Total 310 ml # Bowel Movements 4 1 Laboratory Tests Test 11/27/18 18:25 11/28/18 01:27 11/28/18 04:30 11/28/18 09:45 White Blood Count 22.2 K/UL (4.8-10.8) *H 28.4 K/UL (4.8-10.8) *H 29.2 K/UL (4.8-10.8) *H Red Blood Count 1.94 M/UL (4.70-6.10) L 3.03 M/UL (4.70-6.10) L 3.08 M/UL (4.70-6.10) L Hemoglobin 6.1 G/DL (14.2-18.0) *L 9.7 G/DL (14.2-18.0) #L 9.8 G/DL (14.2-18.0) L Hematocrit 17.7 % (42.0-52.0) L 27.8 % (42.0-52.0) #L 28.5 % (42.0-52.0) L Mean Corpuscular Volume 91 FL (80-99) 92 FL (80-99) 93 FL (80-99) Mean Corpuscular Hemoglobin 31.6 PG (27.0-31.0) H 31.9 PG (27.0-31.0) H 31.9 PG (27.0-31.0) H Mean Corpuscular Hemoglobin Concent 34.7 G/DL (32.0-36.0) 34.7 G/DL (32.0-36.0) 34.4 G/DL (32.0-36.0) Red Cell Distribution Width 15.9 % (11.6-14.8) H 15.3 % (11.6-14.8) H 15.1 % (11.6-14.8) H Platelet Count 291 K/UL (150-450) 263 K/UL (150-450) 261 K/UL (150-450) Mean Platelet Volume 5.0 FL (6.5-10.1) L 5.2 FL (6.5-10.1) L 5.0 FL (6.5-10.1) L Neutrophils (%) (Auto) % (45.0-75.0) % (45.0-75.0) % (45.0-75.0) Lymphocytes (%) (Auto) % (20.0-45.0) % (20.0-45.0) % (20.0-45.0) Monocytes (%) (Auto) % (1.0-10.0) % (1.0-10.0) % (1.0-10.0) Eosinophils (%) (Auto) % (0.0-3.0) % (0.0-3.0) % (0.0-3.0) Basophils (%) (Auto) % (0.0-2.0) % (0.0-2.0) % (0.0-2.0) Differential Total Cells Counted 100 100 100 Neutrophils % (Manual) 86 % (45-75) H 84 % (45-75) H 91 % (45-75) H Lymphocytes % (Manual) 9 % (20-45) L 10 % (20-45) L 6 % (20-45) L Monocytes % (Manual) 2 % (1-10) 3 % (1-10) 2 % (1-10) Eosinophils % (Manual) 0 % (0-3) 0 % (0-3) 0 % (0-3) Basophils % (Manual) 0 % (0-2) 0 % (0-2) 1 % (0-2) Myelocytes % 1 % (0-0) H Band Neutrophils 2 % (0-8) 3 % (0-8) 0 % (0-8) Platelet Estimate Adequate Adequate Adequate Platelet Morphology Normal Normal Normal Polychromasia 1+ Hypochromasia 1+ 2+ Anisocytosis 1+ 1+ Prothrombin Time 11.4 SEC (9.30-11.50) Prothromb Time International Ratio 1.1 (0.9-1.1) Activated Partial Thromboplast Time 25 SEC (23-33) Sodium Level 137 MMOL/L (136-145) 141 MMOL/L (136-145) Potassium Level 4.6 MMOL/L (3.5-5.1) 4.8 MMOL/L (3.5-5.1) Chloride Level 104 MMOL/L (98-107) 107 MMOL/L (98-107) Carbon Dioxide Level 26 MMOL/L (21-32) 23 MMOL/L (21-32) Anion Gap 7 mmol/L (5-15) 12 mmol/L (5-15) Blood Urea Nitrogen 35 mg/dL (7-18) H 47 mg/dL (7-18) H Creatinine 0.6 MG/DL (0.55-1.30) 0.8 MG/DL (0.55-1.30) Estimat Glomerular Filtration Rate mL/min (>60) mL/min (>60) Glucose Level 169 MG/DL (74-106) H 158 MG/DL (74-106) H Calcium Level 7.5 MG/DL (8.5-10.1) L 7.8 MG/DL (8.5-10.1) L Total Bilirubin 0.4 MG/DL (0.2-1.0) 0.7 MG/DL (0.2-1.0) Aspartate Amino Transf (AST/SGOT) 21 U/L (15-37) 27 U/L (15-37) Alanine Aminotransferase (ALT/SGPT) 11 U/L (12-78) L 15 U/L (12-78) Alkaline Phosphatase 69 U/L (46-116) 70 U/L (46-116) Total Protein 3.6 G/DL (6.4-8.2) L 4.0 G/DL (6.4-8.2) L Albumin 1.2 G/DL (3.4-5.0) L 1.2 G/DL (3.4-5.0) L Globulin 2.4 g/dL 2.8 g/dL Albumin/Globulin Ratio 0.5 (1.0-2.7) L 0.4 (1.0-2.7) L Spherocytes 1+ Uric Acid 2.9 MG/DL (2.6-7.2) Phosphorus Level 5.1 MG/DL (2.5-4.9) H Magnesium Level 1.6 MG/DL (1.8-2.4) L Vancomycin Level Trough > 50.0 ug/mL (5.0-12.0) H Objective HEAD AND NECK: No JVD. LUNGS: Decreased breath sounds. CARDIOVASCULAR: Regular S1 and S2 with no gallop . ABDOMEN: Soft. G-tube intact. EXTREMITIES: Upper extremity and LE edema. Earl Washington MD Nov 28, 2018 11:48
--- NOTE | 2018-11-28 11:52 | Nephrology Progress Note ---
Assessment/Plan Problem List: (1) Hyponatremia Assessment: Na higher (2) UTI (urinary tract infection) (3) Anemia, chronic disease (4) Alzheimer's dementia (5) Parkinson disease Assessment Low Na corrected GI bleed transfused other conditions Pneumonia UTI, has grewal bacteremia sacral decub dementia HTN Sz disorder Parkinsons severe Anemia Plan Albumin bolus and transfusion for low BP stop HypoTonic IV solution Urine studies Transfusion as needed Per orders roberto carlos khalil Subjective ROS Limited/Unobtainable: No Interval Events/Complaints in ICU for GI bleed Constitutional: Reports: malaise, weakness Objective Objective Last 24 Hour Vital Signs Date Time Temp Pulse Resp B/P (MAP) Pulse Ox O2 Delivery O2 Flow Rate FiO2 11/28/18 10:00 123 24 111/59 (76) 98 11/28/18 09:00 130 11/28/18 09:00 125 24 136/69 (91) 99 11/28/18 08:00 98.6 135 24 104/61 (75) 96 11/28/18 08:00 Nasal Cannula 3.0 11/28/18 07:00 130 26 125/104 (111) 98 11/28/18 06:00 129 26 128/71 (90) 98 11/28/18 05:00 125 23 112/57 (75) 98 11/28/18 04:00 Nasal Cannula 3.0 11/28/18 04:00 123 11/28/18 04:00 98.6 124 25 121/96 (104) 99 11/28/18 03:00 123 25 95/58 (70) 99 11/28/18 02:00 124 26 100/64 (76) 100 11/28/18 01:00 98.5 129 31 90/50 (63) 99 11/28/18 00:00 99.0 137 33 93/51 (65) 98 11/28/18 00:00 Nasal Cannula 3.0 11/28/18 00:00 136 11/27/18 23:30 137 34 105/58 (74) 98 11/27/18 23:00 137 38 97/48 (64) 95 11/27/18 22:30 99.0 135 37 95/57 (70) 95 11/27/18 22:00 137 33 105/53 (70) 98 11/27/18 21:30 142 29 105/54 (71) 98 11/27/18 21:00 143 28 107/57 (74) 99 11/27/18 20:30 146 28 108/52 (70) 99 11/27/18 20:00 Nasal Cannula 3.0 11/27/18 20:00 99.0 153 29 93/56 (68) 99 11/27/18 20:00 153 11/27/18 19:51 94 Nasal Cannula 2.0 28 11/27/18 19:50 154 21 94 Nasal Cannula 2.0 28 11/27/18 19:00 99.0 142 20 99/56 (70) 98 11/27/18 18:30 128 25 99/55 (70) 100 11/27/18 18:02 129 26 132/79 (96) 100 11/27/18 17:30 129 11/27/18 17:30 98.3 129 25 101/51 (68) 100 11/27/18 16:00 Nasal Cannula 3.0 11/27/18 12:00 Nasal Cannula 3.0 11/27/18 12:00 98.4 111 25 101/51 (68) 100 Intake and Output 11/27/18 11/28/18 18:59 06:59 Intake Total 1429.916 ml 1025.000 ml Output Total 310 ml Balance 1429.916 ml 715.000 ml Free Water 120 ml 30 ml IV Total 699.916 ml 385.000 ml Tube Feeding 550 ml 110 ml Blood Product 500 ml Other 60 ml Output Urine Total 310 ml # Bowel Movements 4 1 Laboratory Tests 11/27/18 18:25: White Blood Count 22.2*H, Red Blood Count 1.94L, Hemoglobin 6.1*L, Hematocrit 17.7L, Mean Corpuscular Volume 91, Mean Corpuscular Hemoglobin 31.6H, Mean Corpuscular Hemoglobin Concent 34.7, Red Cell Distribution Width 15.9H, Platelet Count 291, Mean Platelet Volume 5.0L, Neutrophils (%) (Auto) , Lymphocytes (%) (Auto) , Monocytes (%) (Auto) , Eosinophils (%) (Auto) , Basophils (%) (Auto) , Differential Total Cells Counted 100, Neutrophils % ( Manual) 86H, Lymphocytes % (Manual) 9L, Monocytes % (Manual) 2, Eosinophils % ( Manual) 0, Basophils % (Manual) 0, Myelocytes % 1H, Band Neutrophils 2, Platelet Estimate Adequate, Platelet Morphology Normal, Polychromasia 1+, Hypochromasia 1+, Anisocytosis 1+, Prothrombin Time 11.4, Prothromb Time International Ratio 1.1, Activated Partial Thromboplast Time 25, Sodium Level 137, Potassium Level 4.6, Chloride Level 104, Carbon Dioxide Level 26, Anion Gap 7, Blood Urea Nitrogen 35H, Creatinine 0.6, Estimat Glomerular Filtration Rate , Glucose Level 169H, Calcium Level 7.5L, Total Bilirubin 0.4, Aspartate Amino Transf (AST/SGOT) 21, Alanine Aminotransferase (ALT/SGPT) 11L, Alkaline Phosphatase 69, Total Protein 3.6L, Albumin 1.2L, Globulin 2.4, Albumin/ Globulin Ratio 0.5L 11/28/18 01:27: White Blood Count 28.4*H, Red Blood Count 3.03L, Hemoglobin 9.7#L, Hematocrit 27.8#L, Mean Corpuscular Volume 92, Mean Corpuscular Hemoglobin 31.9H, Mean Corpuscular Hemoglobin Concent 34.7, Red Cell Distribution Width 15.3H, Platelet Count 263, Mean Platelet Volume 5.2L, Neutrophils (%) (Auto) , Lymphocytes (%) (Auto) , Monocytes (%) (Auto) , Eosinophils (%) (Auto) , Basophils (%) (Auto) , Differential Total Cells Counted 100, Neutrophils % ( Manual) 84H, Lymphocytes % (Manual) 10L, Monocytes % (Manual) 3, Eosinophils % ( Manual) 0, Basophils % (Manual) 0, Band Neutrophils 3, Platelet Estimate Adequate, Platelet Morphology Normal 11/28/18 04:30: White Blood Count 29.2*H, Red Blood Count 3.08L, Hemoglobin 9.8L, Hematocrit 28.5L, Mean Corpuscular Volume 93, Mean Corpuscular Hemoglobin 31.9H, Mean Corpuscular Hemoglobin Concent 34.4, Red Cell Distribution Width 15.1H, Platelet Count 261, Mean Platelet Volume 5.0L, Neutrophils (%) (Auto) , Lymphocytes (%) (Auto) , Monocytes (%) (Auto) , Eosinophils (%) (Auto) , Basophils (%) (Auto) , Differential Total Cells Counted 100, Neutrophils % ( Manual) 91H, Lymphocytes % (Manual) 6L, Monocytes % (Manual) 2, Eosinophils % ( Manual) 0, Basophils % (Manual) 1, Band Neutrophils 0, Platelet Estimate Adequate, Platelet Morphology Normal, Hypochromasia 2+, Anisocytosis 1+, Sodium Level 141, Potassium Level 4.8, Chloride Level 107, Carbon Dioxide Level 23, Anion Gap 12, Blood Urea Nitrogen 47H, Creatinine 0.8, Estimat Glomerular Filtration Rate , Glucose Level 158H, Calcium Level 7.8L, Total Bilirubin 0.7, Aspartate Amino Transf (AST/SGOT) 27, Alanine Aminotransferase (ALT/SGPT) 15, Alkaline Phosphatase 70, Total Protein 4.0L, Albumin 1.2L, Globulin 2.8, Albumin /Globulin Ratio 0.4L, Spherocytes 1+, Uric Acid 2.9, Phosphorus Level 5.1H, Magnesium Level 1.6L 11/28/18 09:45: Vancomycin Level Trough > 50.0H Height (Feet): 5 Height (Inches): 7.00 Weight (Pounds): 128 General Appearance: no apparent distress, lethargic Cardiovascular: tachycardia Respiratory/Chest: decreased breath sounds Abdomen: distended Extremities: other - left arm swollen Objective no change Kendall Trinidad MD Nov 28, 2018 11:52
--- NOTE | 2018-11-28 12:10 | NUR ---
NURSE NOTES: Continue to have dark red blood stool.Good pericare done,turned and repositioned.Kept clean and dry.Will continue to monitor.
--- NOTE | 2018-11-28 12:18 | Infectious Diseases Prog Note ---
Assessment/Plan Assessment/Plan Assessment: GIB Sepsis Pneumonia -CXR: Patchy bilateral infiltrates versus mixed interstitial alveolar edema noted. -sp cx MRSA, MDR P. stuarti (S Amikacin, Zosyn ; I cefepime; S ertapenem) Afebrile Leukocytosis; recurrent increased- likely reactive to GIB- r/o Cdiff, new JANELLE MRSA bacteremia- suspect 2ry to PNA- r/o endocarditis -11/18 Bcx 2/4 MRSA , 1/4 S. capitis, Diptheroids (these 2 are contaminants); BCx Neg -2d Echo:limited study (no vegetations) Probable UTI -u/a wbc 10-15, nit neg, leuk +2; ucx MDR ABC (S bactrim, gentamicin) Acute respiratory failure Sacral decubitus ulcer, necrotic, surrounding cellulitis dementia HTN CKD COPD dysphagia s/p Gtube feeding Parkinson disease seizure disorder multiple decubiti wounds detention resident Plan: -Continue empiric IV Vancomycin #10 for MRSA bacteremia and PNA; duration to follow pending FLORINA -Continue Zosyn #/-10 for MDR Providencia PNA -11/27 SP Bactrim #7 -11/23 SP Cefepime #6 -11/18 SP Levaquin x1 -f/u cx -Monitor CBC/CMP, temperatures -f/u sp cx, legionella ag urine -GT care -aspiration precautions -wound care per surgical team -Recommend FLORINA -U/a w/ reflex, CXR, Bcx x2, Cdiff Thank you for this consultation. Will continue to follow along with you. Discussed with RN and Dr Reis. Subjective Allergies: Coded Allergies: No Known Allergies (Unverified , 11/18/18) Subjective afebrile > 24hrs transferred to ICU due to GIB wbc increased Objective Vital Signs Last 24 Hour Vital Signs Date Time Temp Pulse Resp B/P (MAP) Pulse Ox O2 Delivery O2 Flow Rate FiO2 11/28/18 11:00 120 24 119/76 (90) 98 11/28/18 10:00 123 24 111/59 (76) 98 11/28/18 09:00 130 11/28/18 09:00 125 24 136/69 (91) 99 11/28/18 08:00 98.6 135 24 104/61 (75) 96 11/28/18 08:00 Nasal Cannula 3.0 7/5/19 07:00 130 26 125/104 (111) 98 11/28/18 06:00 129 26 128/71 (90) 98 11/28/18 05:00 125 23 112/57 (75) 98 11/28/18 04:00 Nasal Cannula 3.0 11/28/18 04:00 123 11/28/18 04:00 98.6 124 25 121/96 (104) 99 11/28/18 03:00 123 25 95/58 (70) 99 11/28/18 02:00 124 26 100/64 (76) 100 11/28/18 01:00 98.5 129 31 90/50 (63) 99 11/28/18 00:00 99.0 137 33 93/51 (65) 98 11/28/18 00:00 Nasal Cannula 3.0 11/28/18 00:00 136 11/27/18 23:30 137 34 105/58 (74) 98 11/27/18 23:00 137 38 97/48 (64) 95 11/27/18 22:30 99.0 135 37 95/57 (70) 95 11/27/18 22:00 137 33 105/53 (70) 98 11/27/18 21:30 142 29 105/54 (71) 98 11/27/18 21:00 143 28 107/57 (74) 99 11/27/18 20:30 146 28 108/52 (70) 99 11/27/18 20:00 Nasal Cannula 3.0 11/27/18 20:00 99.0 153 29 93/56 (68) 99 11/27/18 20:00 153 11/27/18 19:51 94 Nasal Cannula 2.0 28 11/27/18 19:50 154 21 94 Nasal Cannula 2.0 28 11/27/18 19:00 99.0 142 20 99/56 (70) 98 11/27/18 18:30 128 25 99/55 (70) 100 11/27/18 18:02 129 26 132/79 (96) 100 11/27/18 17:30 129 11/27/18 17:30 98.3 129 25 101/51 (68) 100 11/27/18 16:00 Nasal Cannula 3.0 Height (Feet): 5 Height (Inches): 7.00 Weight (Pounds): 128 Objective General Appearance: WD/WN, no apparent distress Lines, tubes and drains: central line HEENT: normocephalic, atraumatic Neck: non-tender, normal alignment Cardiovascular/Chest: normal peripheral pulses, normal rate, regular rhythm Abdomen: normal bowel sounds, non tender Extremities: normal range of motion Skin Exam: normal pigmentation 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 Laboratory Tests Test 11/27/18 18:25 11/28/18 01:27 11/28/18 04:30 11/28/18 09:45 White Blood Count 22.2 K/UL (4.8-10.8) *H 28.4 K/UL (4.8-10.8) *H 29.2 K/UL (4.8-10.8) *H Red Blood Count 1.94 M/UL (4.70-6.10) L 3.03 M/UL (4.70-6.10) L 3.08 M/UL (4.70-6.10) L Hemoglobin 6.1 G/DL (14.2-18.0) *L 9.7 G/DL (14.2-18.0) #L 9.8 G/DL (14.2-18.0) L Hematocrit 17.7 % (42.0-52.0) L 27.8 % (42.0-52.0) #L 28.5 % (42.0-52.0) L Mean Corpuscular Volume 91 FL (80-99) 92 FL (80-99) 93 FL (80-99) Mean Corpuscular Hemoglobin 31.6 PG (27.0-31.0) H 31.9 PG (27.0-31.0) H 31.9 PG (27.0-31.0) H Mean Corpuscular Hemoglobin Concent 34.7 G/DL (32.0-36.0) 34.7 G/DL (32.0-36.0) 34.4 G/DL (32.0-36.0) Red Cell Distribution Width 15.9 % (11.6-14.8) H 15.3 % (11.6-14.8) H 15.1 % (11.6-14.8) H Platelet Count 291 K/UL (150-450) 263 K/UL (150-450) 261 K/UL (150-450) Mean Platelet Volume 5.0 FL (6.5-10.1) L 5.2 FL (6.5-10.1) L 5.0 FL (6.5-10.1) L Neutrophils (%) (Auto) % (45.0-75.0) % (45.0-75.0) % (45.0-75.0) Lymphocytes (%) (Auto) % (20.0-45.0) % (20.0-45.0) % (20.0-45.0) Monocytes (%) (Auto) % (1.0-10.0) % (1.0-10.0) % (1.0-10.0) Eosinophils (%) (Auto) % (0.0-3.0) % (0.0-3.0) % (0.0-3.0) Basophils (%) (Auto) % (0.0-2.0) % (0.0-2.0) % (0.0-2.0) Differential Total Cells Counted 100 100 100 Neutrophils % (Manual) 86 % (45-75) H 84 % (45-75) H 91 % (45-75) H Lymphocytes % (Manual) 9 % (20-45) L 10 % (20-45) L 6 % (20-45) L Monocytes % (Manual) 2 % (1-10) 3 % (1-10) 2 % (1-10) Eosinophils % (Manual) 0 % (0-3) 0 % (0-3) 0 % (0-3) Basophils % (Manual) 0 % (0-2) 0 % (0-2) 1 % (0-2) Myelocytes % 1 % (0-0) H Band Neutrophils 2 % (0-8) 3 % (0-8) 0 % (0-8) Platelet Estimate Adequate Adequate Adequate Platelet Morphology Normal Normal Normal Polychromasia 1+ Hypochromasia 1+ 2+ Anisocytosis 1+ 1+ Prothrombin Time 11.4 SEC (9.30-11.50) Prothromb Time International Ratio 1.1 (0.9-1.1) Activated Partial Thromboplast Time 25 SEC (23-33) Sodium Level 137 MMOL/L (136-145) 141 MMOL/L (136-145) Potassium Level 4.6 MMOL/L (3.5-5.1) 4.8 MMOL/L (3.5-5.1) Chloride Level 104 MMOL/L (98-107) 107 MMOL/L (98-107) Carbon Dioxide Level 26 MMOL/L (21-32) 23 MMOL/L (21-32) Anion Gap 7 mmol/L (5-15) 12 mmol/L (5-15) Blood Urea Nitrogen 35 mg/dL (7-18) H 47 mg/dL (7-18) H Creatinine 0.6 MG/DL (0.55-1.30) 0.8 MG/DL (0.55-1.30) Estimat Glomerular Filtration Rate mL/min (>60) mL/min (>60) Glucose Level 169 MG/DL (74-106) H 158 MG/DL (74-106) H Calcium Level 7.5 MG/DL (8.5-10.1) L 7.8 MG/DL (8.5-10.1) L Total Bilirubin 0.4 MG/DL (0.2-1.0) 0.7 MG/DL (0.2-1.0) Aspartate Amino Transf (AST/SGOT) 21 U/L (15-37) 27 U/L (15-37) Alanine Aminotransferase (ALT/SGPT) 11 U/L (12-78) L 15 U/L (12-78) Alkaline Phosphatase 69 U/L (46-116) 70 U/L (46-116) Total Protein 3.6 G/DL (6.4-8.2) L 4.0 G/DL (6.4-8.2) L Albumin 1.2 G/DL (3.4-5.0) L 1.2 G/DL (3.4-5.0) L Globulin 2.4 g/dL 2.8 g/dL Albumin/Globulin Ratio 0.5 (1.0-2.7) L 0.4 (1.0-2.7) L Spherocytes 1+ Uric Acid 2.9 MG/DL (2.6-7.2) Phosphorus Level 5.1 MG/DL (2.5-4.9) H Magnesium Level 1.6 MG/DL (1.8-2.4) L Vancomycin Level Trough > 50.0 ug/mL (5.0-12.0) H Current Medications Medications (Trade) Dose Ordered Sig/Pauline Route PRN Reason Start Time Stop Time Status Last Admin Dose Admin Acetaminophen (Tylenol) 650 mg Q4H PRN GT T>100.5 11/27/18 18:18 12/22/18 18:17 Albuterol/ Ipratropium (Albuterol/ Ipratropium) 3 ml Q4H PRN HHN Shortness of Breath 11/27/18 18:18 12/02/18 18:17 Carbidopa/Levodopa (Sinemet 25/100) 1 tab THREE TIMES A DAY GT 11/27/18 18:00 12/27/18 17:59 11/28/18 08:11 Clonidine HCl (Catapres Tab) 0.1 mg Q4H PRN GT sbp>170mmHg 11/27/18 18:18 12/22/18 18:17 Dextrose (Dextrose 50%) 25 ml Q30M PRN IV Hypoglycemia 11/27/18 18:18 12/18/18 18:17 Dextrose (Dextrose 50%) 50 ml Q30M PRN IV Hypoglycemia 11/27/18 18:18 12/18/18 18:17 Famotidine (Pepcid I.v.) 20 mg Q12HR IVP 11/28/18 12:00 12/28/18 11:59 UNV Magnesium Sulfate 100 ml @ 100 mls/hr Q1H IVPB 11/28/18 12:00 11/28/18 13:59 UNV Morphine Sulfate (Morphine Sulfate) 2 mg Q4H PRN IVP Severe Pain (Pain Scale 7-10) 11/27/18 18:19 11/29/18 18:18 Piperacillin Sod/ Tazobactam Sod 3.375 gm/Sodium Chloride 110 ml @ 27.5 mls/hr EVERY 8 HOURS IVPB 11/27/18 22:00 12/02/18 23:59 11/28/18 05:10 Vancomycin HCl (Vanco rx to dose) 1 ea DAILY PRN MISC Per rx protocol 11/27/18 18:18 12/27/18 18:17 Neva Yee M.D. Nov 28, 2018 12:18
--- NOTE | 2018-11-28 13:56 | NUR ---
DISCHARGE PLANNING: NOTE DENIED AT [facility] >> UNREPRESENTED
--- NOTE | 2018-11-28 14:09 | NUR ---
NURSE NOTES: Seen by Dr Yee,will follow up with new order.Stool and urine collected.Turned and repositioned,hob elevated top prevent aspiration.Will continue to monitor.
--- NOTE | 2018-11-28 14:09 | Diagnostic Imaging Report ---
Indication: Dyspnea Comparison: 11/24/2018 A single view chest radiograph was obtained. Findings: Perihilar infiltrates left lower lobe infiltrate again demonstrated. Heart size is stable. IMPRESSION: Basilar infiltrates
--- NOTE | 2018-11-28 14:18 | Surgery Progress Note ---
Surgery Progress Note Subjective Additional Comments acute GI bleed yesterday hypotensive tachycardic anemia stopped blood thinners transferred to ICU. transfused PRBC Objective Last 24 Hour Vital Signs Date Time Temp Pulse Resp B/P (MAP) Pulse Ox O2 Delivery O2 Flow Rate FiO2 11/28/18 13:00 118 24 108/60 (76) 98 11/28/18 12:00 Nasal Cannula 3.0 11/28/18 12:00 99.0 120 24 104/61 (75) 96 11/28/18 11:00 120 24 119/76 (90) 98 11/28/18 10:00 123 24 111/59 (76) 98 11/28/18 09:40 126 22 100 Nasal Cannula 2.0 28 11/28/18 09:40 100 Nasal Cannula 2.0 28 11/28/18 09:00 130 11/28/18 09:00 125 24 136/69 (91) 99 11/28/18 08:00 98.6 135 24 104/61 (75) 96 11/28/18 08:00 Nasal Cannula 3.0 11/28/18 07:00 130 26 125/104 (111) 98 11/28/18 06:00 129 26 128/71 (90) 98 11/28/18 05:00 125 23 112/57 (75) 98 11/28/18 04:00 Nasal Cannula 3.0 11/28/18 04:00 123 11/28/18 04:00 98.6 124 25 121/96 (104) 99 11/28/18 03:00 123 25 95/58 (70) 99 11/28/18 02:00 124 26 100/64 (76) 100 11/28/18 01:00 98.5 129 31 90/50 (63) 99 11/28/18 00:00 99.0 137 33 93/51 (65) 98 11/28/18 00:00 Nasal Cannula 3.0 11/28/18 00:00 136 11/27/18 23:30 137 34 105/58 (74) 98 11/27/18 23:00 137 38 97/48 (64) 95 11/27/18 22:30 99.0 135 37 95/57 (70) 95 11/27/18 22:00 137 33 105/53 (70) 98 11/27/18 21:30 142 29 105/54 (71) 98 11/27/18 21:00 143 28 107/57 (74) 99 11/27/18 20:30 146 28 108/52 (70) 99 11/27/18 20:00 Nasal Cannula 3.0 11/27/18 20:00 99.0 153 29 93/56 (68) 99 11/27/18 20:00 153 11/27/18 19:51 94 Nasal Cannula 2.0 28 11/27/18 19:50 154 21 94 Nasal Cannula 2.0 28 11/27/18 19:00 99.0 142 20 99/56 (70) 98 11/27/18 18:30 128 25 99/55 (70) 100 11/27/18 18:02 129 26 132/79 (96) 100 11/27/18 17:30 129 11/27/18 17:30 98.3 129 25 101/51 (68) 100 11/27/18 16:00 Nasal Cannula 3.0 I&O Intake and Output 11/27/18 11/28/18 19:00 07:00 Intake Total 1484.916 ml 997.500 ml Output Total 50 ml 280 ml Balance 1434.916 ml 717.500 ml Free Water 120 ml 30 ml IV Total 699.916 ml 412.500 ml Tube Feeding 605 ml 55 ml Blood Product 500 ml Other 60 ml Output Urine Total 50 ml 280 ml # Bowel Movements 4 1 Dressing: dry Wound: clean Cardiovascular: RSR Respiratory: clear Abdomen: soft, present bowel sounds, non-distended Extremities: no cyanosis, other Laboratory Tests Test 11/27/18 18:25 11/28/18 01:27 11/28/18 04:30 11/28/18 09:45 White Blood Count 22.2 K/UL (4.8-10.8) *H 28.4 K/UL (4.8-10.8) *H 29.2 K/UL (4.8-10.8) *H Red Blood Count 1.94 M/UL (4.70-6.10) L 3.03 M/UL (4.70-6.10) L 3.08 M/UL (4.70-6.10) L Hemoglobin 6.1 G/DL (14.2-18.0) *L 9.7 G/DL (14.2-18.0) #L 9.8 G/DL (14.2-18.0) L Hematocrit 17.7 % (42.0-52.0) L 27.8 % (42.0-52.0) #L 28.5 % (42.0-52.0) L Mean Corpuscular Volume 91 FL (80-99) 92 FL (80-99) 93 FL (80-99) Mean Corpuscular Hemoglobin 31.6 PG (27.0-31.0) H 31.9 PG (27.0-31.0) H 31.9 PG (27.0-31.0) H Mean Corpuscular Hemoglobin Concent 34.7 G/DL (32.0-36.0) 34.7 G/DL (32.0-36.0) 34.4 G/DL (32.0-36.0) Red Cell Distribution Width 15.9 % (11.6-14.8) H 15.3 % (11.6-14.8) H 15.1 % (11.6-14.8) H Platelet Count 291 K/UL (150-450) 263 K/UL (150-450) 261 K/UL (150-450) Mean Platelet Volume 5.0 FL (6.5-10.1) L 5.2 FL (6.5-10.1) L 5.0 FL (6.5-10.1) L Neutrophils (%) (Auto) % (45.0-75.0) % (45.0-75.0) % (45.0-75.0) Lymphocytes (%) (Auto) % (20.0-45.0) % (20.0-45.0) % (20.0-45.0) Monocytes (%) (Auto) % (1.0-10.0) % (1.0-10.0) % (1.0-10.0) Eosinophils (%) (Auto) % (0.0-3.0) % (0.0-3.0) % (0.0-3.0) Basophils (%) (Auto) % (0.0-2.0) % (0.0-2.0) % (0.0-2.0) Differential Total Cells Counted 100 100 100 Neutrophils % (Manual) 86 % (45-75) H 84 % (45-75) H 91 % (45-75) H Lymphocytes % (Manual) 9 % (20-45) L 10 % (20-45) L 6 % (20-45) L Monocytes % (Manual) 2 % (1-10) 3 % (1-10) 2 % (1-10) Eosinophils % (Manual) 0 % (0-3) 0 % (0-3) 0 % (0-3) Basophils % (Manual) 0 % (0-2) 0 % (0-2) 1 % (0-2) Myelocytes % 1 % (0-0) H Band Neutrophils 2 % (0-8) 3 % (0-8) 0 % (0-8) Platelet Estimate Adequate Adequate Adequate Platelet Morphology Normal Normal Normal Polychromasia 1+ Hypochromasia 1+ 2+ Anisocytosis 1+ 1+ Prothrombin Time 11.4 SEC (9.30-11.50) Prothromb Time International Ratio 1.1 (0.9-1.1) Activated Partial Thromboplast Time 25 SEC (23-33) Sodium Level 137 MMOL/L (136-145) 141 MMOL/L (136-145) Potassium Level 4.6 MMOL/L (3.5-5.1) 4.8 MMOL/L (3.5-5.1) Chloride Level 104 MMOL/L (98-107) 107 MMOL/L (98-107) Carbon Dioxide Level 26 MMOL/L (21-32) 23 MMOL/L (21-32) Anion Gap 7 mmol/L (5-15) 12 mmol/L (5-15) Blood Urea Nitrogen 35 mg/dL (7-18) H 47 mg/dL (7-18) H Creatinine 0.6 MG/DL (0.55-1.30) 0.8 MG/DL (0.55-1.30) Estimat Glomerular Filtration Rate mL/min (>60) mL/min (>60) Glucose Level 169 MG/DL (74-106) H 158 MG/DL (74-106) H Calcium Level 7.5 MG/DL (8.5-10.1) L 7.8 MG/DL (8.5-10.1) L Total Bilirubin 0.4 MG/DL (0.2-1.0) 0.7 MG/DL (0.2-1.0) Aspartate Amino Transf (AST/SGOT) 21 U/L (15-37) 27 U/L (15-37) Alanine Aminotransferase (ALT/SGPT) 11 U/L (12-78) L 15 U/L (12-78) Alkaline Phosphatase 69 U/L (46-116) 70 U/L (46-116) Total Protein 3.6 G/DL (6.4-8.2) L 4.0 G/DL (6.4-8.2) L Albumin 1.2 G/DL (3.4-5.0) L 1.2 G/DL (3.4-5.0) L Globulin 2.4 g/dL 2.8 g/dL Albumin/Globulin Ratio 0.5 (1.0-2.7) L 0.4 (1.0-2.7) L Spherocytes 1+ Uric Acid 2.9 MG/DL (2.6-7.2) Phosphorus Level 5.1 MG/DL (2.5-4.9) H Magnesium Level 1.6 MG/DL (1.8-2.4) L Vancomycin Level Trough > 50.0 ug/mL (5.0-12.0) H Plan Problems: (1) Decubitus skin ulcer Assessment & Plan: Pt presented on admission with multiple pressure injuries. Violaceous macular rash noted to L shoulder ,Upper L side of back and lateral L chest. L upper ext edematous with scattered petechiae. Category 2 skin tear with 10% flap loss noted to L brachial. Small amt sanguineous exudate noted. Unstageable pressure injury Sacrum . Base of wound noted to have 100% mixed slough.necrosis .Edges semi-detached and erythematous. Surrounding non- blanchable erythema without elevation in skin temp ,or induration. (L)9.5cm x (W )6.5cm. NO odor or exudate noted. Full thickness pressure injury lumbar spine in close proximity to sacral pressure injury.Base of wound pink with scattered biofilm. (L)2cm x (W)1.6cm. (+ ) maceration along borders. Periwound without erythema or induration. DTPI noted to medial L heel (L)3.2cm x (W)4.5cm. Base of fluctuant with delineated erythematous borders. Periwound fluctuant with non-blanchable erythema.Additionally, an area of stable dry eschar noted to posterior L heel(L) 0.6cm x (W)0.8cm DTPI Noted to lateral R heel. Maroon discoloration that is fluctuant within base of wound.(L)2.5cm x (W)1cm. DTPI noted to medial R heel. Base of wound fluctuant and is maroon in colour (L) 1.5cm x (W)1cm. Maroon discoloration without fluctuance or induration noted to lateral R tibia , superior but in close proximity to lateral Malleolus.(L)1.4cm x (W)0.5cm. Tx.Plan: Cleanse skin tear L brachial. (Maintain Versatel Contact layer)Apply Silvasorb Gel. Cover with Optifoam drsg. Change every 7 days and prn. Cleanse Sacral wound with Saline. Apply Therahoney. Apply Moisture Barrier Paste periwound. Cover with Optifoam drsg. Change every 3 days and prn. Cleanse wound Lumbar spine with saline. Apply Therahoney. Apply Cavilon Skin Barrier periwound. Cover with Optifoam drsg. Change every 3 days and prn. Apply Cavilon Skin Barrier to Lateral R tibia, R heel and L heel. Cover each site with Optifoam drsg. Change every 7 days and prn. APM/FERNANDEZ mattress overlay. Reposition at least every 2hours or as tolerated. Off-load heels with pillow. (2) Acute DVT (deep venous thrombosis) (3) HCAP (healthcare-associated pneumonia) (4) UTI (urinary tract infection) (5) Anemia, chronic disease (6) Sepsis Assessment & Plan: acute gi bleed transfuse prn trend labs cont abx appreciate ID input (7) Feeding by G-tube Assessment & Plan: DAILY ESTIMATED NEEDS: Needs based on Sepsis, wound 60.5kg 25-35 kcals/kg [id number] total kcals 1.25-2 g protein/kg 76-121 g total protein 25-30 mL/kg [id number] total fluid mLs NUTRITION DIAGNOSIS: 1) Increased kcal and pro needs r/t wound healing as evidenced by pt w/ sacral unstageable wound and L heel DTPI. 2) Swallowing difficulty r/t dysphagia as evidenced by pt w/ Parkinson's dz, GT dependent. ENTERAL NUTRITION RECOMMENDATIONS: Glucerna 1.2 @60ml/hr x24 hrs to provide 1440ml, 1728 kcal, 86g pro, 1159ml free H2O - As medically able, rec to start Glucerna 1.2 @20ml/hr, advance as tolerated 10ml q4-6 hrs to goal. - Flush per MD/ HOB over 30 degrees ADDITIONAL RECOMMENDATIONS: 1) Per SNF: 5'6" ht, 133 lbs wt 2) MEDICAL RESEARCH SCIENTIST eval if oral grat is appropriate 3) Wound care: Add YOLI BID via GT + VIT C 250mg BID 4) Hypoglycemics prn/ niss (8) COPD (chronic obstructive pulmonary disease) (9) Alzheimer's dementia (10) Parkinson disease (11) Seizures Andrew Eugene Nov 28, 2018 14:18
--- NOTE | 2018-11-28 16:07 | NUR ---
NURSE NOTES: Mouth care done,turned and repositioned.HOB elevated at 35 degree,will continue to monitor
[2018-11-28] MEDS ORDERED: Tubing IV Secondary IV ONE (16:14)
--- NOTE | 2018-11-28 16:36 | NUR ---
NURSE NOTES:WOUND CARE NOTES:Pt Full thickness sacral wound with 100% necrosis at base of wound .Non-blanchable erythema with with denuded borders and periwound.Mild odor noted. (L)9 cm x (W)7.5cm.No exudate noted.Perianal skin erosion noted. Small partial thickness wound noted to perianal area(L)1cm x (W)0.3cm. R and L heels are dry and firm. Tx.Plan: Cleanse sacral wound with Saline. Loosely pack with Therahoney infused Kerlix. Apply Moisture Barrier paste periwound. Cover with Optifoam drsg. Change Daily and prn. Apply Moisture Barrier paste to perianal skin erosions with each incontinence care. Reposition at least every 2hours or as tolerated. Off-load heels with pillow.
[2018-11-28 17:43] LABS: APPEARANCE,URINE SLIGHTLY CLOUDY; BILIRUBIN, URINE 2+ (NEGATIVE); COLOR,URINE BROWN; GLUCOSE, URINE (UA) NEGATIVE (NEGATIVE); KETONES,URINE 1+ (NEGATIVE); LEUKOCYTE ESTERASE ,URINE 1+ (NEGATIVE); NITRITE,URINE NEGATIVE (NEGATIVE); PH,URINE 5 (4.5-8.0); PROTEIN,URINE 1+ (NEGATIVE); UROBILINOGEN,URINE 1 MG/DL (0.0-1.0)
--- NOTE | 2018-11-28 17:46 | NUR ---
HAND-OFF: Report given to MONA Suarez.
--- NOTE | 2018-11-28 17:47 | NUR ---
NURSE NOTES: Received pt from MONA Foley. Pt is asleep in bed on 4L O2 via NC. Respiratory retractions noted, RR 24 SaO2 90%. Pt has large amount of maroon blood visible through stool. Edema noted on bilat upper extremities. Pt has GT noted and clamped- pt is NPO for scheduled EGD in the morning. F/C noted draining small amount of yellow urine (10cc). Per Alaina, pt had almost no urine output today. Two 18g left wrist IVs noted with no fluids running. Skin alterations noted. Bed is in lowest position with alarm on, side rails up x 2, call light within reach. Left a message for Dr. Rod (covering for Dr. Dallas today) and Dr. Gonzalez regarding pt's loss of blood through stool and retractions. Awaiting call back. Addendum: 11/28/18 at 1929 by Tracie Gusman RN Amendment: LW 18g and 22g IVs noted. Left arm is edematous and IVs noted to be leaking.
--- NOTE | 2018-11-28 18:00 | NUR ---
NURSE NOTES: Received call back from Dr Gonzalez with instructions to forward message to Dr. Carrasquillo, Dr. Cantu, and Dr. Eugene. I contacted all of them as instructed and received orders from Dr. Eugene for blood transfusion and labs. orders being carried out.
[2018-11-28 18:41] LABS: HEMATOCRIT 17.6 % (42.0-52.0); MEAN CORPUSCULAR VOLUME 91 FL (80-99); PLATELET COUNT 264 K/UL (150-450); RED BLOOD COUNT 1.92 M/UL (4.70-6.10)
[2018-11-28 18:42] LABS: ANION GAP 15 mmol/L (5-15); BLOOD UREA NITROGEN 58 mg/dL (7-18); CALCIUM 7.6 MG/DL (8.5-10.1); CARBON DIOXIDE 19 MMOL/L (21-32); CHLORIDE 106 MMOL/L (98-107); CREATININE 1.1 MG/DL (0.55-1.30); POTASSIUM 4.4 MMOL/L (3.5-5.1); SODIUM 140 MMOL/L (136-145)
[2018-11-28 18:45] LABS: INR 1.1 (0.9-1.1)
[2018-11-28 18:47] LABS: ALBUMIN/GLOBULIN RATIO 0.4 (1.0-2.7); ALKALINE PHOSPHATASE 65 U/L (46-116); ASPARTATE AMINO TRANSFERASE 22 U/L (15-37); BILIRUBIN,TOTAL 0.4 MG/DL (0.2-1.0); HEMOGLOBIN 6.1 G/DL (14.2-18.0); WHITE BLOOD COUNT 40.3 K/UL (4.8-10.8)
[2018-11-28 18:58] LABS: ALANINE AMINOTRANSFERASE 14 U/L (12-78)
--- NOTE | 2018-11-28 19:00 | NUR ---
NURSE NOTES: Pt SaO2 declined to 75% and pt placed on 15L O2 via non-rebreather mask.
--- NOTE | 2018-11-28 19:14 | NUR ---
NURSE NOTES: Left a message for Dr. Eugene and Celena regarding pt's BP 85/46. Per Dr. Eugene, bolus pt 500cc NS NOW
--- NOTE | 2018-11-28 19:15 | NUR ---
NURSE NOTES: BP retaken and SBP now 98, Dr. Eugene states he prefers pt receive blood transfusion rather than NS. Awaiting PRBCs from blood bank.
--- NOTE | 2018-11-28 19:35 | NUR ---
NURSE NOTES: New 22g IV established in L chest area by Melissa Pablo RN.
--- NOTE | 2018-11-28 19:43 | NUR ---
HAND-OFF: Report given to MONA Torres. Pt in stable condition.
--- NOTE | 2018-11-28 20:10 | NUR ---
NURSE NOTES: Pt is resting on the bed. On Non-rebreather mask with O2 15L. SaO2 99-100% noted. Educated Pt regarding side effect of blood transfusion but didn't understanding. Checked BP: 102/48mmHg, HR: 112, BT: 97.5F. Cosign with other nurse Loree regarding Pt's name, MR number, , Blood type and unit number date. Started 1 unit PRBC blood transfusion. Will continue to monitor any change of condition.
--- NOTE | 2018-11-28 20:25 | NUR ---
NURSE NOTES: On PRBC 1unit blood transfusion. No side effect noted. Rechecked BP:102/2mmHg, HR: 113, BT: 97.7F. Will continue to monitor any change of condition.
--- NOTE | 2018-11-28 20:40 | NUR ---
NURSE NOTES: Received Pt is sleeping on the bed and able to open the eyes spontaneously. On Non rebreather mask with O2 15L and SaO2 100% noted. Given oral suction. Still noted blood BM noted. Dressing is clean and dry on wound area. Previous IV site leaking removed all IV and Inserted new IV on Lt. upper chest area. Noted swelling is all extremities and pitting edema on both arms. Pt has all extremities DVT. according to previous nurse, aware regarding DVT. Changed position. G-tube site intact and on NPO. On Bradley cath and noted only small amount urine output. Placed fall and seizure precaution. Will given blood transfusion. Will continue to care plan. Will continue to care plan.
--- NOTE | 2018-11-28 20:50 | NUR ---
NURSE NOTES: Get call back from Dr. Rod and no new order noted.
--- NOTE | 2018-11-28 22:45 | NUR ---
NURSE NOTES: Finished 1st PRBC blood transfusion without adverse reaction. Will continue to monitor any change of condition.
--- NOTE | 2018-11-28 22:55 | NUR ---
NURSE NOTES: Pt is resting on the bed. Educated Pt regarding side effect of blood transfusion but didn't understanding. Checked BP: 100/47mmHg, HR: 116, BT: 98.5F. Cosign with other nurse Constantin regarding Pt's name, MR number, , Blood type and unit number date. Started 2nd 1 unit PRBC blood transfusion. Will continue to monitor any change of condition.
--- NOTE | 2018-11-28 23:10 | NUR ---
NURSE NOTES: On 2nd PRBC blood transfusion. No adverse reaction noted. Checked BP : 123/55, HR; 114 and BT: 98.5F. Will continue to monitor any change of condition.
[2018-11-29] VITALS (31 sets, daily range): BP systolic 98–145; BP diastolic 58–85
--- NOTE | 2018-11-29 | NUR ---
NURSE NOTES: Pt is sleeping on the bed and on running with PRBC blood transfusion. No adverse reaction noted. Noted congestion and given naso tracheal and oral suction moderate amount of whitish thick secretion noted. Changed position. On NPO. Will continue to monitor any change of condition.
[2018-11-29] MEDS: Piperacillin/Tazobactam 3.375 GM in NS 110 ML IVPB SCH ×2 (00:32→06:01)
--- NOTE | 2018-11-29 01:30 | NUR ---
NURSE NOTES: Finished 2nd PRBC blood transfusion without adverse reaction. Will continue to monitor any change of condition.
--- NOTE | 2018-11-29 04:00 | NUR ---
NURSE NOTES: Morning care was done. Still noted blood color BM. Cleaned Pt and applied lotion and cream. Changed position. On O2 14l vi venturi mask and SaO2 100% noted. Will continue to monitor any change of condition.
--- NOTE | 2018-11-29 05:11 | Pulmonolgy Critical Care Note ---
Critical Care - Asmt/Plan Problems: (1) Lower GI bleed (2) Hemorrhagic shocks (3) Acute DVT (deep venous thrombosis) (4) COPD (chronic obstructive pulmonary disease) (5) S/P insertion of IVC (inferior vena caval) filter (6) Severe protein-calorie malnutrition (7) Seizures (8) Feeding by G-tube (9) Parkinson disease (10) Alzheimer's dementia (11) C. difficile colitis Respiratory: monitor respiratory rate, adjust FIO2, CXR Cardiac: continue to monitor HR/BP Renal: F/U I&O, keep IV fluid, check electrolytes Infectious Disease: check cultures, continue antibiotics, add antibiotics - add flagyl IV and vanco po Gastrointestinal: hold feedings - colonoscopy this morning Endocrine: monitor blood sugar Hematologic: monitor H/H, other - got 2 unites of prbc Neurologic: PRN Ativan Affect: PRN ativan Prophylaxis: Protonix Disposition: keep in ICU Time Spent (Minutes): 40 Notes Reviewed: technical documentation specialist, cardio, renal, ID Discussed with: nurses, rn case managementarea development manager - Objective Last 24 Hour Vital Signs Date Time Temp Pulse Resp B/P (MAP) Pulse Ox O2 Delivery O2 Flow Rate FiO2 11/29/18 04:00 114 11/29/18 01:00 112 21 132/63 (86) 100 11/29/18 00:00 Venturi Mask 14.0 11/29/18 00:00 116 11/29/18 00:00 98.5 115 22 130/59 (82) 94 11/28/18 23:10 114 21 123/55 (77) 96 11/28/18 23:00 114 21 123/55 (77) 97 11/28/18 22:55 98.5 116 21 100/47 (64) 95 11/28/18 22:00 118 21 96/48 (64) 100 11/28/18 21:00 113 21 101/55 (70) 100 11/28/18 20:25 97.7 113 22 102/62 (75) 100 11/28/18 20:00 Non-Rebreather 15.0 11/28/18 20:00 110 11/28/18 20:00 97.5 113 22 102/48 (66) 100 11/28/18 19:29 97 Non-Rebreather 15.0 100 11/28/18 19:29 115 23 97 Non-Rebreather 15.0 100 11/28/18 19:00 111 22 85/46 (59) 98 11/28/18 18:00 120 18 109/48 (68) 92 11/28/18 17:00 123 11/28/18 17:00 118 24 102/62 (75) 96 11/28/18 16:00 Nasal Cannula 3.0 11/28/18 16:00 98.8 120 24 101/48 (65) 100 11/28/18 15:00 119 24 119/79 (92) 100 11/28/18 13:00 118 24 108/60 (76) 98 11/28/18 12:00 Nasal Cannula 3.0 11/28/18 12:00 119 11/28/18 12:00 99.0 120 24 104/61 (75) 96 11/28/18 11:00 120 24 119/76 (90) 98 11/28/18 10:00 123 24 111/59 (76) 98 11/28/18 09:40 126 22 100 Nasal Cannula 2.0 28 11/28/18 09:40 100 Nasal Cannula 2.0 28 11/28/18 09:00 130 11/28/18 09:00 125 24 136/69 (91) 99 11/28/18 08:00 98.6 135 24 104/61 (75) 96 11/28/18 08:00 Nasal Cannula 3.0 11/28/18 07:00 130 26 125/104 (111) 98 11/28/18 06:00 129 26 128/71 (90) 98 Status: awake Condition: critical HEENT: atraumatic Neck: full ROM Heart: HR/BP stable Abdomen: soft, active bowel sounds Extremities: no C/C/E Decubiti: location Micro: Microbiology Date/Time Source Procedure Growth Status 11/28/18 16:50 Stool Clostridium difficile Toxin Assay - Final Complete Critical Care - Subjective ROS Limited/Unobtainable: Yes Interval Events: awake, loud audible rhonchi Condition: critical FI02: 100 Sputum Amount: Small Tube Feeding Amount: 55 I&O: Intake and Output 11/28/18 11/29/18 19:00 07:00 Intake Total 3192.5 ml 555.0 ml Output Total 3675 ml 145 ml Balance -482.5 ml 410.0 ml IV Total 192.5 ml 55.0 ml Blood Product 500 ml Other 3000 ml Output Urine Total 275 ml 145 ml Other 3400 ml # Bowel Movements 2 Labs: Laboratory Tests Test 11/28/18 09:45 11/28/18 16:50 11/28/18 18:26 Vancomycin Level Trough > 50.0 ug/mL (5.0-12.0) H Urine Color Brown Urine Appearance Slightly cloudy Urine pH 5 (4.5-8.0) Urine Specific [place] 1.025 (1.005-1.035) Urine Protein 1+ (NEGATIVE) H Urine Glucose (UA) Negative (NEGATIVE) Urine Ketones 1+ (NEGATIVE) H Urine Blood 1+ (NEGATIVE) H Urine Nitrite Negative (NEGATIVE) Urine Bilirubin 2+ (NEGATIVE) H Urine Ictotest Negative (NEGATIVE) Urine Urobilinogen 1 MG/DL (0.0-1.0) H Urine Leukocyte Esterase 1+ (NEGATIVE) H Urine RBC 5-10 /HPF (0 - 0) H Urine WBC 2-4 /HPF (0 - 0) Urine Squamous Epithelial Cells None /LPF (NONE/OCC) Urine Amorphous Sediment Few /LPF (NONE) H Urine Bacteria Many /HPF (NONE) H White Blood Count 40.3 K/UL (4.8-10.8) *H Red Blood Count 1.92 M/UL (4.70-6.10) L Hemoglobin 6.1 G/DL (14.2-18.0) Hematocrit 17.6 % (42.0-52.0) #L Mean Corpuscular Volume 91 FL (80-99) Mean Corpuscular Hemoglobin 32.0 PG (27.0-31.0) H Mean Corpuscular Hemoglobin Concent 35.0 G/DL (32.0-36.0) Red Cell Distribution Width 15.0 % (11.6-14.8) H Platelet Count 264 K/UL (150-450) Mean Platelet Volume 5.5 FL (6.5-10.1) L Neutrophils (%) (Auto) % (45.0-75.0) Lymphocytes (%) (Auto) % (20.0-45.0) Monocytes (%) (Auto) % (1.0-10.0) Eosinophils (%) (Auto) % (0.0-3.0) Basophils (%) (Auto) % (0.0-2.0) Differential Total Cells Counted 100 Neutrophils % (Manual) 89 % (45-75) H Lymphocytes % (Manual) 6 % (20-45) L Monocytes % (Manual) 3 % (1-10) Eosinophils % (Manual) 0 % (0-3) Basophils % (Manual) 0 % (0-2) Band Neutrophils 2 % (0-8) Platelet Estimate Adequate Platelet Morphology Normal Hypochromasia 1+ Anisocytosis 1+ Prothrombin Time 11.6 SEC (9.30-11.50) H Prothromb Time International Ratio 1.1 (0.9-1.1) Activated Partial Thromboplast Time 25 SEC (23-33) Sodium Level 140 MMOL/L (136-145) Potassium Level 4.4 MMOL/L (3.5-5.1) Chloride Level 106 MMOL/L (98-107) Carbon Dioxide Level 19 MMOL/L (21-32) L Anion Gap 15 mmol/L (5-15) Blood Urea Nitrogen 58 mg/dL (7-18) H Creatinine 1.1 MG/DL (0.55-1.30) Estimat Glomerular Filtration Rate mL/min (>60) Glucose Level 211 MG/DL (74-106) H Calcium Level 7.6 MG/DL (8.5-10.1) L Total Bilirubin 0.4 MG/DL (0.2-1.0) Aspartate Amino Transf (AST/SGOT) 22 U/L (15-37) Alanine Aminotransferase (ALT/SGPT) 14 U/L (12-78) Alkaline Phosphatase 65 U/L (46-116) Total Protein 3.4 G/DL (6.4-8.2) L Albumin 1.0 G/DL (3.4-5.0) L Globulin 2.4 g/dL Albumin/Globulin Ratio 0.4 (1.0-2.7) L David Carrasquillo MD Nov 29, 2018 05:11
--- NOTE | 2018-11-29 05:15 | General Progress Note ---
Progress Note Progress Note Pt doesn't have any family members. He can't sign his own consents. He needs colonoscopy and central line insertion at an urgent basis. David Carrasquillo MD Nov 29, 2018 05:15
[2018-11-29 05:20] LABS: HEMATOCRIT 26.5 % (42.0-52.0); HEMOGLOBIN 9.3 G/DL (14.2-18.0); MEAN CORPUSCULAR VOLUME 89 FL (80-99); PLATELET COUNT 216 K/UL (150-450); RED BLOOD COUNT 2.97 M/UL (4.70-6.10); RED CELL DISTRIBUTION WIDTH 14.2 % (11.6-14.8)
--- NOTE | 2018-11-29 05:20 | NUR ---
NURSE NOTES: Get report from Darell regarding positive of C-diff. Notified Dr. Choi and new order received. Noted WBC 27.[address] Carrasquillo aware. Will continue to monitor any change of condition.
[2018-11-29 05:22] LABS: WHITE BLOOD COUNT 27.1 K/UL (4.8-10.8)
[2018-11-29 05:34] LABS: ALANINE AMINOTRANSFERASE 13 U/L (12-78); ALBUMIN 1.2 G/DL (3.4-5.0); ALBUMIN/GLOBULIN RATIO 0.4 (1.0-2.7); ALKALINE PHOSPHATASE 68 U/L (46-116); ANION GAP 10 mmol/L (5-15); ASPARTATE AMINO TRANSFERASE 22 U/L (15-37); BILIRUBIN,TOTAL 0.6 MG/DL (0.2-1.0); BLOOD UREA NITROGEN 63 mg/dL (7-18); CARBON DIOXIDE 25 MMOL/L (21-32); CHLORIDE 110 MMOL/L (98-107); CREATININE 1.1 MG/DL (0.55-1.30); PHOSPHORUS 5.4 MG/DL (2.5-4.9); POTASSIUM 4.3 MMOL/L (3.5-5.1); SODIUM 145 MMOL/L (136-145)
[2018-11-29] MEDS ORDERED: LR 1000ml ONE (07:00)
[2018-11-29] MEDS ORDERED: NS 110ml ONE (07:00)
--- NOTE | 2018-11-29 07:01 | General Progress Note ---
Assessment/Plan Problem List: (1) Seizures ICD Codes: R56.9 - Unspecified convulsions SNOMED: 09698630 (2) Parkinson disease ICD Codes: G20 - Parkinson's disease SNOMED: 44156634 (3) Alzheimer's dementia ICD Codes: G30.9 - Alzheimer's disease, unspecified; F02.80 - Dementia in other diseases classified elsewhere without behavioral disturbance SNOMED: 72803024 (4) COPD (chronic obstructive pulmonary disease) ICD Codes: J44.9 - Chronic obstructive pulmonary disease, unspecified SNOMED: 21201795 (5) Feeding by G-tube ICD Codes: Z93.1 - Gastrostomy status SNOMED: 136075793, 682004366, 807328599 (6) Anemia, chronic disease ICD Codes: D63.8 - Anemia in other chronic diseases classified elsewhere SNOMED: 380368393, 456541942 Status: unchanged Assessment/Plan: patient had massive bleeding now in the ICU needs colonoscopy but no family available for consent plan proceed with MD consent Subjective ROS Limited/Unobtainable: No Allergies: Coded Allergies: No Known Allergies (Unverified , 11/18/18) Objective Last 24 Hour Vital Signs Date Time Temp Pulse Resp B/P (MAP) Pulse Ox O2 Delivery O2 Flow Rate FiO2 11/29/18 06:00 98 21 121/71 (88) 99 11/29/18 05:00 99 21 129/72 (91) 99 11/29/18 04:00 Venturi Mask 14.0 11/29/18 04:00 98.5 105 22 137/75 (95) 100 11/29/18 04:00 114 11/29/18 03:00 107 21 131/85 (100) 99 11/29/18 02:00 107 21 117/70 (86) 99 11/29/18 01:00 112 21 132/63 (86) 100 11/29/18 00:00 Venturi Mask 14.0 11/29/18 00:00 116 11/29/18 00:00 98.5 115 22 130/59 (82) 94 11/28/18 23:10 114 21 123/55 (77) 96 11/28/18 23:00 114 21 123/55 (77) 97 11/28/18 22:55 98.5 116 21 100/47 (64) 95 11/28/18 22:00 118 21 96/48 (64) 100 11/28/18 21:00 113 21 101/55 (70) 100 11/28/18 20:25 97.7 113 22 102/62 (75) 100 11/28/18 20:00 Non-Rebreather 15.0 11/28/18 20:00 110 11/28/18 20:00 97.5 113 22 102/48 (66) 100 11/28/18 19:29 97 Non-Rebreather 15.0 100 11/28/18 19:29 115 23 97 Non-Rebreather 15.0 100 11/28/18 19:00 111 22 85/46 (59) 98 11/28/18 18:00 120 18 109/48 (68) 92 11/28/18 17:00 123 11/28/18 17:00 118 24 102/62 (75) 96 11/28/18 16:00 Nasal Cannula 3.0 11/28/18 16:00 98.8 120 24 101/48 (65) 100 11/28/18 15:00 119 24 119/79 (92) 100 11/28/18 13:00 118 24 108/60 (76) 98 11/28/18 12:00 Nasal Cannula 3.0 11/28/18 12:00 119 11/28/18 12:00 99.0 120 24 104/61 (75) 96 11/28/18 11:00 120 24 119/76 (90) 98 11/28/18 10:00 123 24 111/59 (76) 98 11/28/18 09:40 126 22 100 Nasal Cannula 2.0 28 11/28/18 09:40 100 Nasal Cannula 2.0 28 11/28/18 09:00 130 11/28/18 09:00 125 24 136/69 (91) 99 11/28/18 08:00 98.6 135 24 104/61 (75) 96 11/28/18 08:00 Nasal Cannula 3.0 11/28/18 07:00 130 26 125/104 (111) 98 Intake and Output 11/28/18 11/29/18 19:00 07:00 Intake Total 3192.5 ml 610.0 ml Output Total 3675 ml 185 ml Balance -482.5 ml 425.0 ml IV Total 192.5 ml 110.0 ml Blood Product 500 ml Other 3000 ml Output Urine Total 275 ml 185 ml Other 3400 ml # Bowel Movements 3 Laboratory Tests 11/28/18 09:45: Vancomycin Level Trough > 50.0H 11/28/18 16:50: Urine Color Brown, Urine Appearance Slightly cloudy, Urine pH 5, Urine Specific [place] 1.025, Urine Protein 1+H, Urine Glucose (UA) Negative, Urine Ketones 1+H , Urine Blood 1+H, Urine Nitrite Negative, Urine Bilirubin 2+H, Urine Ictotest Negative, Urine Urobilinogen 1H, Urine Leukocyte Esterase 1+H, Urine RBC 5-10H, Urine WBC 2-4, Urine Squamous Epithelial Cells None, Urine Amorphous Sediment FewH, Urine Bacteria ManyH 11/28/18 18:26: White Blood Count 40.3*H, Red Blood Count 1.92L, Hemoglobin 6.1#*L, Hematocrit 17.6#L, Mean Corpuscular Volume 91, Mean Corpuscular Hemoglobin 32.0H, Mean Corpuscular Hemoglobin Concent 35.0, Red Cell Distribution Width 15.0H, Platelet Count 264, Mean Platelet Volume 5.5L, Neutrophils (%) (Auto) , Lymphocytes (%) (Auto) , Monocytes (%) (Auto) , Eosinophils (%) (Auto) , Basophils (%) (Auto) , Differential Total Cells Counted 100, Neutrophils % ( Manual) 89H, Lymphocytes % (Manual) 6L, Monocytes % (Manual) 3, Eosinophils % ( Manual) 0, Basophils % (Manual) 0, Band Neutrophils 2, Platelet Estimate Adequate, Platelet Morphology Normal, Hypochromasia 1+, Anisocytosis 1+, Prothrombin Time 11.6H, Prothromb Time International Ratio 1.1, Activated Partial Thromboplast Time 25, Sodium Level 140, Potassium Level 4.4, Chloride Level 106, Carbon Dioxide Level 19L, Anion Gap 15, Blood Urea Nitrogen 58H, Creatinine 1.1, Estimat Glomerular Filtration Rate , Glucose Level 211H, Calcium Level 7.6L, Total Bilirubin 0.4, Aspartate Amino Transf (AST/SGOT) 22, Alanine Aminotransferase (ALT/SGPT) 14, Alkaline Phosphatase 65, Total Protein 3.4L, Albumin 1.0L, Globulin 2.4, Albumin/Globulin Ratio 0.4L 11/29/18 04:30: White Blood Count 27.1*H, Red Blood Count 2.97L, Hemoglobin 9.3#L, Hematocrit 26.5#L, Mean Corpuscular Volume 89, Mean Corpuscular Hemoglobin 31.4H, Mean Corpuscular Hemoglobin Concent 35.2, Red Cell Distribution Width 14.2, Platelet Count 216, Mean Platelet Volume 5.7L, Neutrophils (%) (Auto) , Lymphocytes (%) ( Auto) , Monocytes (%) (Auto) , Eosinophils (%) (Auto) , Basophils (%) (Auto) , Neutrophils % (Manual) [Pending], Lymphocytes % (Manual) [Pending], Platelet Estimate [Pending], Platelet Morphology [Pending], Prothrombin Time 10.8, Prothromb Time International Ratio 1.0, Activated Partial Thromboplast Time 23, Sodium Level 145, Potassium Level 4.3, Chloride Level 110H, Carbon Dioxide Level 25, Anion Gap 10, Blood Urea Nitrogen 63H, Creatinine 1.1, Estimat Glomerular Filtration Rate , Glucose Level 141H, Calcium Level 8.0L, Total Bilirubin 0.6, Aspartate Amino Transf (AST/SGOT) 22, Alanine Aminotransferase ( ALT/SGPT) 13, Alkaline Phosphatase 68, Total Protein 4.1L, Albumin 1.2L, Globulin 2.9, Albumin/Globulin Ratio 0.4L, Uric Acid 5.6, Phosphorus Level 5.4H , Magnesium Level 2.0, Random Vancomycin Level 27.7 Height (Feet): 5 Height (Inches): 7.00 Weight (Pounds): 130 General Appearance: lethargic EENT: normal ENT inspection Neck: supple Cardiovascular: tachycardia Respiratory/Chest: decreased breath sounds Abdomen: normal bowel sounds, non tender, soft Extremities: non-tender Deacon Dallas MD Nov 29, 2018 07:01
--- NOTE | 2018-11-29 07:03 | Pre-Procedure Note/Attestation ---
Pre-Procedure Note/Attestation Complete Prior to Procedure Planned Procedure: not applicable Procedure Narrative: esophagogastroduodenoscopy and colonoscopy Indications for Procedure Pre-Operative Diagnosis: rectal bleed Attestation I attest that I discussed the nature of the procedure; its benefits; risks and complications; and alternatives (and the risks and benefits of such alternatives ), prior to the procedure, with the patient (or the patient's legal business development representative). I attest that, if there was a reasonable possibility of needing a blood transfusion, the patient (or the patient's legal business development representative) was given the [facility] standardized written summary, pursuant to the Jayro Bjorn Blood Safety Act ([place] Health and Safety Code # 1645, as amended). I attest that I re-evaluated the patient just prior to the surgery and that there has been no change in the patient's H&P, except as documented below: Deacon Dallas MD Nov 29, 2018 07:02
--- NOTE | 2018-11-29 07:33 | NUR ---
HAND-OFF: Report given to On Bedside EGD and colonoscopy. Dr. Dallas in the Pt's room.
--- NOTE | 2018-11-29 07:35 | NUR ---
NURSE NOTES: Received change of shift report from Melissa DUNN. Pt is sleeping/drowsy, currently on Venturi mask at FIO2 50%, 14L of oxygen with O2sat at 100%. Bilateral rhonchi/rales present on auscultation. certification technician displays ST with heart rate fluctuating from 100's-110. Temp 98.5F axillary. Bilateral pitting edema on extremities noted. Peripheral IV access is present on left upper chest #22G and #24G, both saline locks, patent/intact, currently infusing Zosyn as ordered. GT present, with GT site covered with 4x4 dressing, dry/intact. Pt is currently NPO. Abdomen is flat, soft/nontender to touch with hypoactive bowel sounds. Bradley catheter is in place, draining light alexandrea urine. Skin has sacral full thickness wound, left UA skin tear, left heel and right leg skin discoloration, all sites covered with optifoam dressings, dry/intact. Pt is on pressure release mattress. Head of bed at 30degress, with three side rails up, bed in lowest position, and call light within reach. Will continue to monitor pt and follow plan of care per MD orders and protocol.
--- NOTE | 2018-11-29 07:39 | Endoscopy Procedure Note ---
Endoscopy Procedure Note General Indication for Procedure: gib Procedures Performed: colonoscopy Operative Findings/Diagnosis: diverticulosis Specimen: none Pt Tolerated Procedure Well: Yes Estimated Blood Loss: none Anesthesia Anesthesiologist: heidi Anesthesia: MAC Inserted Devices Implant(s) used?: No GI Core Measures 50 yrs or older w/o bx or poly: Not Applicable 10yrs. F/U recommended: Not Applicable Deacon Dallas MD Nov 29, 2018 07:39
--- NOTE | 2018-11-29 07:39 | Immediate Post-Op Evaluation ---
Immediate Post-Op Evalulation Immediate Post-Op Evalulation Procedure: Colonoscopy Date of Evaluation: Nov 29, 2018 Blood Products: 0 Pain Score (1-10): 2 Nausea: No Vomiting: No Complications 0 Patient Status: no response - ICU, patent, ventilated, none Hydration Status: adequate Rahul Nair MD Nov 29, 2018 07:39
--- NOTE | 2018-11-29 07:43 | 48 Hour Post Anesthesia Eval ---
Post Anesthesia Evaluation Procedure: Colonoscopy Date of Evaluation: Nov 29, 2018 Time of Evaluation: 09:58 Blood Pressure Systolic: 122 0: 69 Pulse Rate: 101 Respiratory Rate: 22 Temperature (Fahrenheit): 98.2 O2 Sat by Pulse Oximetry: 100 Airway: patent Nausea: No Vomiting: No Pain Intensity: 0 Hydration Status: adequate Mental Status/LOC: other - ICU Follow-up Care/Observations: 0 Post-Anesthesia Complications: 0 Follow-up care needed: N/A Rahul Nair MD Nov 29, 2018 07:43
--- NOTE | 2018-11-29 07:45 | NUR ---
NURSE NOTES: Dr Dallas and anesthesiologist are at bedside, for colonoscopy/EGD procedures. Per MD, only colonoscopy was done. Pt tolerated procedure well with no adverse events. VS stable, and being closely monitored Q5 minutes on the monitor. VS remains close to baseline.
--- NOTE | 2018-11-29 07:49 | General Progress Note ---
Assessment/Plan Problem List: (1) Acute DVT (deep venous thrombosis) ICD Codes: I82.409 - Acute embolism and thrombosis of unspecified deep veins of unspecified lower extremity SNOMED: 047028285617285 (2) UTI (urinary tract infection) ICD Codes: N39.0 - Urinary tract infection, site not specified SNOMED: 65248096, 774091795 Qualifiers: Qualified Codes: N30.00 - Acute cystitis without hematuria (3) Anemia, chronic disease ICD Codes: D63.8 - Anemia in other chronic diseases classified elsewhere SNOMED: 944736311, 864837868 (4) Parkinson disease ICD Codes: G20 - Parkinson's disease SNOMED: 38536630 (5) Alzheimer's dementia ICD Codes: G30.9 - Alzheimer's disease, unspecified; F02.80 - Dementia in other diseases classified elsewhere without behavioral disturbance SNOMED: 48940893 (6) COPD (chronic obstructive pulmonary disease) ICD Codes: J44.9 - Chronic obstructive pulmonary disease, unspecified SNOMED: 79678862 Status: unchanged Assessment/Plan: o2 pulm tx abx pt diet heme f/u cbc bmp am ltach eval Subjective Constitutional: Reports: weakness Allergies: Coded Allergies: No Known Allergies (Unverified , 11/18/18) All Systems: reviewed and negative except above Subjective sleepy in icu getting egd Objective Last 24 Hour Vital Signs Date Time Temp Pulse Resp B/P (MAP) Pulse Ox O2 Delivery O2 Flow Rate FiO2 11/29/18 07:43 101 22 100 11/29/18 07:00 100 21 122/64 (83) 99 11/29/18 06:00 98 21 121/71 (88) 99 11/29/18 05:00 99 21 129/72 (91) 99 11/29/18 04:00 Venturi Mask 14.0 11/29/18 04:00 98.5 105 22 137/75 (95) 100 11/29/18 04:00 114 11/29/18 03:00 107 21 131/85 (100) 99 11/29/18 02:00 107 21 117/70 (86) 99 11/29/18 01:00 112 21 132/63 (86) 100 11/29/18 00:00 Venturi Mask 14.0 11/29/18 00:00 116 11/29/18 00:00 98.5 115 22 130/59 (82) 94 11/28/18 23:10 114 21 123/55 (77) 96 11/28/18 23:00 114 21 123/55 (77) 97 11/28/18 22:55 98.5 116 21 100/47 (64) 95 11/28/18 22:00 118 21 96/48 (64) 100 11/28/18 21:00 113 21 101/55 (70) 100 11/28/18 20:25 97.7 113 22 102/62 (75) 100 11/28/18 20:00 Non-Rebreather 15.0 11/28/18 20:00 110 11/28/18 20:00 97.5 113 22 102/48 (66) 100 11/28/18 19:29 97 Non-Rebreather 15.0 100 11/28/18 19:29 115 23 97 Non-Rebreather 15.0 100 11/28/18 19:00 111 22 85/46 (59) 98 11/28/18 18:00 120 18 109/48 (68) 92 11/28/18 17:00 123 11/28/18 17:00 118 24 102/62 (75) 96 11/28/18 16:00 Nasal Cannula 3.0 11/28/18 16:00 98.8 120 24 101/48 (65) 100 11/28/18 15:00 119 24 119/79 (92) 100 11/28/18 13:00 118 24 108/60 (76) 98 11/28/18 12:00 Nasal Cannula 3.0 11/28/18 12:00 119 11/28/18 12:00 99.0 120 24 104/61 (75) 96 11/28/18 11:00 120 24 119/76 (90) 98 11/28/18 10:00 123 24 111/59 (76) 98 11/28/18 09:40 126 22 100 Nasal Cannula 2.0 28 11/28/18 09:40 100 Nasal Cannula 2.0 28 11/28/18 09:00 130 11/28/18 09:00 125 24 136/69 (91) 99 11/28/18 08:00 98.6 135 24 104/61 (75) 96 11/28/18 08:00 Nasal Cannula 3.0 Intake and Output 11/28/18 11/29/18 19:00 07:00 Intake Total 3192.5 ml 610.0 ml Output Total 3675 ml 215 ml Balance -482.5 ml 395.0 ml IV Total 192.5 ml 110.0 ml Blood Product 500 ml Other 3000 ml Output Urine Total 275 ml 215 ml Other 3400 ml # Bowel Movements 3 Laboratory Tests 11/28/18 09:45: Vancomycin Level Trough > 50.0H 11/28/18 16:50: Urine Color Brown, Urine Appearance Slightly cloudy, Urine pH 5, Urine Specific [place] 1.025, Urine Protein 1+H, Urine Glucose (UA) Negative, Urine Ketones 1+H , Urine Blood 1+H, Urine Nitrite Negative, Urine Bilirubin 2+H, Urine Ictotest Negative, Urine Urobilinogen 1H, Urine Leukocyte Esterase 1+H, Urine RBC 5-10H, Urine WBC 2-4, Urine Squamous Epithelial Cells None, Urine Amorphous Sediment FewH, Urine Bacteria ManyH 11/28/18 18:26: White Blood Count 40.3*H, Red Blood Count 1.92L, Hemoglobin 6.1#*L, Hematocrit 17.6#L, Mean Corpuscular Volume 91, Mean Corpuscular Hemoglobin 32.0H, Mean Corpuscular Hemoglobin Concent 35.0, Red Cell Distribution Width 15.0H, Platelet Count 264, Mean Platelet Volume 5.5L, Neutrophils (%) (Auto) , Lymphocytes (%) (Auto) , Monocytes (%) (Auto) , Eosinophils (%) (Auto) , Basophils (%) (Auto) , Differential Total Cells Counted 100, Neutrophils % ( Manual) 89H, Lymphocytes % (Manual) 6L, Monocytes % (Manual) 3, Eosinophils % ( Manual) 0, Basophils % (Manual) 0, Band Neutrophils 2, Platelet Estimate Adequate, Platelet Morphology Normal, Hypochromasia 1+, Anisocytosis 1+, Prothrombin Time 11.6H, Prothromb Time International Ratio 1.1, Activated Partial Thromboplast Time 25, Sodium Level 140, Potassium Level 4.4, Chloride Level 106, Carbon Dioxide Level 19L, Anion Gap 15, Blood Urea Nitrogen 58H, Creatinine 1.1, Estimat Glomerular Filtration Rate , Glucose Level 211H, Calcium Level 7.6L, Total Bilirubin 0.4, Aspartate Amino Transf (AST/SGOT) 22, Alanine Aminotransferase (ALT/SGPT) 14, Alkaline Phosphatase 65, Total Protein 3.4L, Albumin 1.0L, Globulin 2.4, Albumin/Globulin Ratio 0.4L 11/29/18 04:30: White Blood Count 27.1*H, Red Blood Count 2.97L, Hemoglobin 9.3#L, Hematocrit 26.5#L, Mean Corpuscular Volume 89, Mean Corpuscular Hemoglobin 31.4H, Mean Corpuscular Hemoglobin Concent 35.2, Red Cell Distribution Width 14.2, Platelet Count 216, Mean Platelet Volume 5.7L, Neutrophils (%) (Auto) , Lymphocytes (%) ( Auto) , Monocytes (%) (Auto) , Eosinophils (%) (Auto) , Basophils (%) (Auto) , Neutrophils % (Manual) [Pending], Lymphocytes % (Manual) [Pending], Platelet Estimate [Pending], Platelet Morphology [Pending], Prothrombin Time 10.8, Prothromb Time International Ratio 1.0, Activated Partial Thromboplast Time 23, Sodium Level 145, Potassium Level 4.3, Chloride Level 110H, Carbon Dioxide Level 25, Anion Gap 10, Blood Urea Nitrogen 63H, Creatinine 1.1, Estimat Glomerular Filtration Rate , Glucose Level 141H, Calcium Level 8.0L, Total Bilirubin 0.6, Aspartate Amino Transf (AST/SGOT) 22, Alanine Aminotransferase ( ALT/SGPT) 13, Alkaline Phosphatase 68, Total Protein 4.1L, Albumin 1.2L, Globulin 2.9, Albumin/Globulin Ratio 0.4L, Uric Acid 5.6, Phosphorus Level 5.4H , Magnesium Level 2.0, Random Vancomycin Level 27.7 Height (Feet): 5 Height (Inches): 7.00 Weight (Pounds): 130 General Appearance: lethargic EENT: normal ENT inspection Neck: normal alignment Cardiovascular: normal peripheral pulses, normal rate, regular rhythm Respiratory/Chest: chest wall non-tender, lungs clear, normal breath sounds Abdomen: normal bowel sounds, non tender, soft Extremities: normal inspection Edema: no edema noted Arm (L), no edema noted Arm (R), no edema noted Leg (L), no edema noted Leg (R), no edema noted Pedal (L), no edema noted Pedal (R), no edema noted Generalized Neurologic: motor weakness Skin: normal pigmentation, warm/dry Abdullahi Gonzalez DO Nov 29, 2018 07:49
[2018-11-29] MEDS: Vancomycin oral 125mg/2.5ml ORAL SCH ×4 (09:37→21:17)
[2018-11-29] MEDS: Levodopa/Carbidopa 25/100 tab GT SCH ×3 (09:38→17:47)
--- NOTE | 2018-11-29 09:45 | Procedure Note ---
DATE OF PROCEDURE: 11/29/2018 SURGEON: Deacon Dallas M.D. PROCEDURE: Colonoscopy. ANESTHESIA: Per Dr. Nair. INSTRUMENT: Olympus adult flexible colonoscope. INDICATIONS: Rectal bleeding. REASON FOR PROCEDURE: The procedure, risks, benefits, and possible consequences, including hemorrhage, aspiration, perforation and infection, and alternative treatments, were explained to the patient/legal guardian by Dr. Deacon Dallas and the patient/legal guardian understood and accepted these risks. DESCRIPTION OF PROCEDURE: After informed consent was obtained and the patient was adequately sedated, first rectal exam was performed, which was positive for internal hemorrhoids. Then, the scope was advanced from the rectum into the cecum documented by appendiceal orifice, ileocecal valve, and right upper quadrant palpation. Quality of prep was fair. There was no active bleeding at this time. There were some blood clots seen in the sigmoid colon. There was some scattered diverticulosis. No significant diverticulosis like large few small scattered. At this time, we do not know what the source of bleeding is. In the cecum, there was some black material may be old blood, but given the fact that the patient had some clots in the sigmoid suggestive of maybe the bleeding was from the lower GI. Of note, the patient had a G-tube lavage yesterday, which was negative. At this time, the scope was slowly retrieved. Retroflexion of rectum was performed and the procedure was terminated. SUMMARY OF FINDINGS: 1. Fair colonoscopy prep. 2. Scattered diverticulosis in the left colon with some blood clots seen in the left colon suggestive of possible lower GI bleeding. RECOMMENDATIONS: 1. Keep the patient NPO for today. 2. Monitoring hemoglobin and hematocrit. 3. Transfuse as needed to keep hemoglobin above 7. 4. Consider endoscopy if the patient rebleeds. Deacon Dallas M.D. DR: MARY JOB#: [id number] CC:
--- NOTE | 2018-11-29 09:45 | NUR ---
NURSE NOTES: Pt was cleaned, had BM x1, loose/maroon color. Pt was cleaned and repositioned, with bilateral extremities elevated on pillows. Oral care done. VS stable.
--- NOTE | 2018-11-29 12:00 | NUR ---
NURSE NOTES: Pt was seen by Dr Winter. Omar FLORES was dc'd. aware of pt's CDiff positive status. Per MD, pt to continue with Vanco and Flagyl treatments. No additional/new orders. Temp currently 98.6F axillary. Oral care done. VS stable.
--- NOTE | 2018-11-29 12:27 | Infectious Diseases Prog Note ---
Assessment/Plan Assessment/Plan Assessment: Diarrhea CDiff + GI bleed 11/29 Colonscopy : Diverticulosis Sepsis Pneumonia -CXR: Patchy bilateral infiltrates versus mixed interstitial alveolar edema noted. -sp cx MRSA, MDR P. stuarti (S Amikacin, Zosyn ; I cefepime; S ertapenem) Afebrile Leukocytosis; improving MRSA bacteremia- suspect 2ry to PNA- r/o endocarditis -11/18 Bcx 2/4 MRSA , 1/ S. capitis, Diptheroids (these 2 are contaminants); BCx Neg -2d Echo:limited study (no vegetations) Probable UTI, sp Rx -u/a wbc 10-15, nit neg, leuk +2; ucx MDR ABC (S bactrim, gentamicin) Acute respiratory failure Sacral decubitus ulcer, necrotic, surrounding cellulitis GIB dementia HTN CKD COPD dysphagia s/p Gtube feeding Parkinson disease seizure disorder multiple decubiti wounds assisted resident Plan: - oral Vanco and Flagyl # 1 ( september DC Flagyl soon ) -Continue empiric IV Vancomycin #12 for MRSA bacteremia and PNA; duration to follow pending FLORINA -DC Zosyn # 8/7-10 for MDR Providencia PNA -11/27 SP Bactrim #7 -11/23 SP Cefepime # -11/18 SP Levaquin x1 -f/u cx -Monitor CBC/CMP, temperatures -f/u sp cx, legionella ag urine -GT care -aspiration precautions -wound care per surgical team -Recommend FLORINA -U/a w/ reflex, CXR, Bcx x2, Subjective Allergies: Coded Allergies: No Known Allergies (Unverified , 11/18/18) Subjective in ICU afebrile Objective Vital Signs Last 24 Hour Vital Signs Date Time Temp Pulse Resp B/P (MAP) Pulse Ox O2 Delivery O2 Flow Rate FiO2 11/29/18 11:00 96 14 120/71 (87) 100 11/29/18 10:00 107 22 145/74 (97) 97 11/29/18 09:30 102 18 135/75 (95) 94 11/29/18 09:15 103 19 135/68 (90) 96 11/29/18 09:00 102 22 139/77 (97) 100 11/29/18 08:45 100 16 138/77 (97) 100 11/29/18 08:30 101 16 133/80 (97) 100 11/29/18 08:15 100 15 125/74 (91) 100 11/29/18 08:00 98.5 101 17 121/69 (86) 100 11/29/18 08:00 Venturi Mask 14.0 11/29/18 08:00 101 11/29/18 07:43 101 22 100 11/29/18 07:00 100 21 122/64 (83) 99 11/29/18 06:00 98 21 121/71 (88) 99 11/29/18 05:00 99 21 129/72 (91) 99 11/29/18 04:00 Venturi Mask 14.0 11/29/18 04:00 98.5 105 22 137/75 (95) 100 11/29/18 04:00 114 11/29/18 03:00 107 21 131/85 (100) 99 11/29/18 02:00 107 21 117/70 (86) 99 11/29/18 01:00 112 21 132/63 (86) 100 11/29/18 00:00 Venturi Mask 14.0 11/29/18 00:00 116 11/29/18 00:00 98.5 115 22 130/59 (82) 94 11/28/18 23:10 114 21 123/55 (77) 96 11/28/18 23:00 114 21 123/55 (77) 97 11/28/18 22:55 98.5 116 21 100/47 (64) 95 11/28/18 22:00 118 21 96/48 (64) 100 11/28/18 21:00 113 21 101/55 (70) 100 11/28/18 20:25 97.7 113 22 102/62 (75) 100 11/28/18 20:00 Non-Rebreather 15.0 11/28/18 20:00 110 11/28/18 20:00 97.5 113 22 102/48 (66) 100 11/28/18 19:29 97 Non-Rebreather 15.0 100 11/28/18 19:29 115 23 97 Non-Rebreather 15.0 100 11/28/18 19:00 111 22 85/46 (59) 98 11/28/18 18:00 120 18 109/48 (68) 92 11/28/18 17:00 123 11/28/18 17:00 118 24 102/62 (75) 96 11/28/18 16:00 Nasal Cannula 3.0 11/28/18 16:00 98.8 120 24 101/48 (65) 100 11/28/18 15:00 119 24 119/79 (92) 100 11/28/18 13:00 118 24 108/60 (76) 98 Height (Feet): 5 Height (Inches): 7.00 Weight (Pounds): 130 HEENT: atraumatic Respiratory/Chest: no respiratory distress Cardiovascular: regularly irregular Abdomen: non distended Microbiology Date/Time Source Procedure Growth Status 11/28/18 16:50 Stool Clostridium difficile Toxin Assay - Final Complete 11/28/18 16:50 Urine,Clean Catch Urine Culture - Preliminary NO GROWTH Resulted Laboratory Tests Test 11/28/18 16:50 11/28/18 18:26 11/29/18 04:30 Urine Color Brown Urine Appearance Slightly cloudy Urine pH 5 (4.5-8.0) Urine Specific [place] 1.025 (1.005-1.035) Urine Protein 1+ (NEGATIVE) H Urine Glucose (UA) Negative (NEGATIVE) Urine Ketones 1+ (NEGATIVE) H Urine Blood 1+ (NEGATIVE) H Urine Nitrite Negative (NEGATIVE) Urine Bilirubin 2+ (NEGATIVE) H Urine Ictotest Negative (NEGATIVE) Urine Urobilinogen 1 MG/DL (0.0-1.0) H Urine Leukocyte Esterase 1+ (NEGATIVE) H Urine RBC 5-10 /HPF (0 - 0) H Urine WBC 2-4 /HPF (0 - 0) Urine Squamous Epithelial Cells None /LPF (NONE/OCC) Urine Amorphous Sediment Few /LPF (NONE) H Urine Bacteria Many /HPF (NONE) H White Blood Count 40.3 K/UL (4.8-10.8) *H 27.1 K/UL (4.8-10.8) *H Red Blood Count 1.92 M/UL (4.70-6.10) L 2.97 M/UL (4.70-6.10) L Hemoglobin 6.1 G/DL (14.2-18.0) 9.3 G/DL (14.2-18.0) #L Hematocrit 17.6 % (42.0-52.0) #L 26.5 % (42.0-52.0) #L Mean Corpuscular Volume 91 FL (80-99) 89 FL (80-99) Mean Corpuscular Hemoglobin 32.0 PG (27.0-31.0) H 31.4 PG (27.0-31.0) H Mean Corpuscular Hemoglobin Concent 35.0 G/DL (32.0-36.0) 35.2 G/DL (32.0-36.0) Red Cell Distribution Width 15.0 % (11.6-14.8) H 14.2 % (11.6-14.8) Platelet Count 264 K/UL (150-450) 216 K/UL (150-450) Mean Platelet Volume 5.5 FL (6.5-10.1) L 5.7 FL (6.5-10.1) L Neutrophils (%) (Auto) % (45.0-75.0) % (45.0-75.0) Lymphocytes (%) (Auto) % (20.0-45.0) % (20.0-45.0) Monocytes (%) (Auto) % (1.0-10.0) % (1.0-10.0) Eosinophils (%) (Auto) % (0.0-3.0) % (0.0-3.0) Basophils (%) (Auto) % (0.0-2.0) % (0.0-2.0) Differential Total Cells Counted 100 100 Neutrophils % (Manual) 89 % (45-75) H 82 % (45-75) H Lymphocytes % (Manual) 6 % (20-45) L 10 % (20-45) L Monocytes % (Manual) 3 % (1-10) 6 % (1-10) Eosinophils % (Manual) 0 % (0-3) 0 % (0-3) Basophils % (Manual) 0 % (0-2) 0 % (0-2) Band Neutrophils 2 % (0-8) 2 % (0-8) Platelet Estimate Adequate Adequate Platelet Morphology Normal Normal Hypochromasia 1+ Anisocytosis 1+ 1+ Prothrombin Time 11.6 SEC (9.30-11.50) H 10.8 SEC (9.30-11.50) Prothromb Time International Ratio 1.1 (0.9-1.1) 1.0 (0.9-1.1) Activated Partial Thromboplast Time 25 SEC (23-33) 23 SEC (23-33) Sodium Level 140 MMOL/L (136-145) 145 MMOL/L (136-145) Potassium Level 4.4 MMOL/L (3.5-5.1) 4.3 MMOL/L (3.5-5.1) Chloride Level 106 MMOL/L (98-107) 110 MMOL/L (98-107) H Carbon Dioxide Level 19 MMOL/L (21-32) L 25 MMOL/L (21-32) Anion Gap 15 mmol/L (5-15) 10 mmol/L (5-15) Blood Urea Nitrogen 58 mg/dL (7-18) H 63 mg/dL (7-18) H Creatinine 1.1 MG/DL (0.55-1.30) 1.1 MG/DL (0.55-1.30) Estimat Glomerular Filtration Rate mL/min (>60) mL/min (>60) Glucose Level 211 MG/DL (74-106) H 141 MG/DL (74-106) H Calcium Level 7.6 MG/DL (8.5-10.1) L 8.0 MG/DL (8.5-10.1) L Total Bilirubin 0.4 MG/DL (0.2-1.0) 0.6 MG/DL (0.2-1.0) Aspartate Amino Transf (AST/SGOT) 22 U/L (15-37) 22 U/L (15-37) Alanine Aminotransferase (ALT/SGPT) 14 U/L (12-78) 13 U/L (12-78) Alkaline Phosphatase 65 U/L (46-116) 68 U/L (46-116) Total Protein 3.4 G/DL (6.4-8.2) L 4.1 G/DL (6.4-8.2) L Albumin 1.0 G/DL (3.4-5.0) L 1.2 G/DL (3.4-5.0) L Globulin 2.4 g/dL 2.9 g/dL Albumin/Globulin Ratio 0.4 (1.0-2.7) L 0.4 (1.0-2.7) L Nucleated Red Blood Cells 1 /100 WBC Polychromasia 3+ Uric Acid 5.6 MG/DL (2.6-7.2) Phosphorus Level 5.4 MG/DL (2.5-4.9) H Magnesium Level 2.0 MG/DL (1.8-2.4) Random Vancomycin Level 27.7 ug/mL Current Medications Medications (Trade) Dose Ordered Sig/Pauline Route PRN Reason Start Time Stop Time Status Last Admin Dose Admin Acetaminophen (Tylenol) 650 mg Q4H PRN GT T>100.5 11/27/18 18:18 12/22/18 18:17 Albuterol/ Ipratropium (Albuterol/ Ipratropium) 3 ml Q4H PRN HHN Shortness of Breath 11/27/18 18:18 12/02/18 18:17 Carbidopa/Levodopa (Sinemet 25/100) 1 tab THREE TIMES A DAY GT 11/27/18 18:00 12/27/18 17:59 11/29/18 09:38 Clonidine HCl (Catapres Tab) 0.1 mg Q4H PRN GT sbp>170mmHg 11/27/18 18:18 12/22/18 18:17 Dextrose (Dextrose 50%) 25 ml Q30M PRN IV Hypoglycemia 11/27/18 18:18 12/18/18 18:17 Dextrose (Dextrose 50%) 50 ml Q30M PRN IV Hypoglycemia 11/27/18 18:18 12/18/18 18:17 Famotidine (Pepcid I.v.) 20 mg Q12HR IVP 11/28/18 12:00 12/28/18 11:59 11/29/18 09:37 Metronidazole 100 ml @ 100 mls/hr Q6HR IVPB 11/29/18 06:00 12/06/18 05:59 11/29/18 06:20 Morphine Sulfate (Morphine Sulfate) 2 mg Q4H PRN IVP Severe Pain (Pain Scale 7-10) 11/27/18 18:19 11/29/18 18:18 Piperacillin Sod/ Tazobactam Sod 3.375 gm/Sodium Chloride 110 ml @ 27.5 mls/hr EVERY 8 HOURS IVPB 11/27/18 22:00 12/02/18 23:59 11/29/18 06:01 Vancomycin HCl (Firvanq) 125 mg FOUR TIMES A DAY ORAL 11/29/18 09:00 12/06/18 08:59 11/29/18 09:37 Vancomycin HCl (Vanco rx to dose) 1 ea DAILY PRN MISC Per rx protocol 11/27/18 18:18 12/27/18 18:17 [place] Winter MD Nov 29, 2018 12:27
--- NOTE | 2018-11-29 13:40 | NUR ---
NURSE NOTES: IV Flagyl that was scheduled for 1200 noon has not been administered yet because of no supply delivery from pharmacy. Pharmacy has been contacted x2, spoke/informed pharmacist over the phone, who stated, "I will check with pharmacy salesperson". Currently still awaiting for Flagyl delivery from pharmacy. Addendum: 11/29/18 at 1459 by KASH MCKINNEY RN Flagyl was delivered to ICU at 1400, spoke with pharmacy, Flagyl admin-schedule was changed to 1400 and med administered as ordered/per schedule.
--- NOTE | 2018-11-29 14:56 | Cardiac Electrophysiology PN ---
Assessment/Plan Assessment/Plan 1. Sinus tach due to anemia and sepsis and beta danya withdrawal ( was on Metoprolol 12.5 bid at [facility]) 2. Hypertension. Echo EF 55% 3. Acute right leg DVT and Bilateral UE DVT. S/P IVC filter . Off Eliquis for severe anemia 4. Staph aureous bacteremia. On Abx by Dr. Yee who recommended FLORINA and is still pending consent 5. Parkinsonism. 6. COPD. 7. UTI. 8. Severe nemia and rectal bleed.S/P Colonoscopy on 11/20/18 and transfusion S/P colonoscopy today but no obvious source 9. Seizure disorder. 10. S/P PEG DW RN Subjective Subjective In sinus tach. In ICU for GI bleed and got 3 units of PRBC. EGD cancelled for instability. S/P only colonoscopy in ICU today. Objective Last 24 Hour Vital Signs Date Time Temp Pulse Resp B/P (MAP) Pulse Ox O2 Delivery O2 Flow Rate FiO2 11/29/18 14:30 90 12 132/67 (88) 100 11/29/18 14:00 90 14 114/65 (81) 99 11/29/18 13:00 93 14 122/69 (86) 100 11/29/18 12:00 91 11/29/18 12:00 98.6 94 25 112/68 (83) 100 11/29/18 12:00 Venturi Mask 14.0 11/29/18 11:00 96 14 120/71 (87) 100 11/29/18 10:00 107 22 145/74 (97) 97 11/29/18 09:30 102 18 135/75 (95) 94 11/29/18 09:15 103 19 135/68 (90) 96 11/29/18 09:00 102 22 139/77 (97) 100 11/29/18 08:45 100 16 138/77 (97) 100 11/29/18 08:30 101 16 133/80 (97) 100 11/29/18 08:15 100 15 125/74 (91) 100 11/29/18 08:00 98.5 101 17 121/69 (86) 100 11/29/18 08:00 Venturi Mask 14.0 11/29/18 08:00 101 11/29/18 07:43 101 22 100 11/29/18 07:00 100 21 122/64 (83) 99 11/29/18 06:00 98 21 121/71 (88) 99 11/29/18 05:00 99 21 129/72 (91) 99 11/29/18 04:00 Venturi Mask 14.0 11/29/18 04:00 98.5 105 22 137/75 (95) 100 11/29/18 04:00 114 11/29/18 03:00 107 21 131/85 (100) 99 11/29/18 02:00 107 21 117/70 (86) 99 11/29/18 01:00 112 21 132/63 (86) 100 11/29/18 00:00 Venturi Mask 14.0 11/29/18 00:00 116 11/29/18 00:00 98.5 115 22 130/59 (82) 94 11/28/18 23:10 114 21 123/55 (77) 96 11/28/18 23:00 114 21 123/55 (77) 97 11/28/18 22:55 98.5 116 21 100/47 (64) 95 11/28/18 22:00 118 21 96/48 (64) 100 11/28/18 21:00 113 21 101/55 (70) 100 11/28/18 20:25 97.7 113 22 102/62 (75) 100 11/28/18 20:00 Non-Rebreather 15.0 11/28/18 20:00 110 11/28/18 20:00 97.5 113 22 102/48 (66) 100 11/28/18 19:29 97 Non-Rebreather 15.0 100 11/28/18 19:29 115 23 97 Non-Rebreather 15.0 100 11/28/18 19:00 111 22 85/46 (59) 98 11/28/18 18:00 120 18 109/48 (68) 92 11/28/18 17:00 123 11/28/18 17:00 118 24 102/62 (75) 96 11/28/18 16:00 Nasal Cannula 3.0 11/28/18 16:00 98.8 120 24 101/48 (65) 100 11/28/18 15:00 119 24 119/79 (92) 100 Intake and Output 11/28/18 11/29/18 18:59 06:59 Intake Total 3220.0 ml 610.0 ml Output Total 3685 ml 195 ml Balance -465.0 ml 415.0 ml IV Total 220.0 ml 110.0 ml Blood Product 500 ml Other 3000 ml Output Urine Total 285 ml 195 ml Other 3400 ml # Bowel Movements 3 Laboratory Tests Test 11/28/18 16:50 11/28/18 18:26 11/29/18 04:30 Urine Color Brown Urine Appearance Slightly cloudy Urine pH 5 (4.5-8.0) Urine Specific [place] 1.025 (1.005-1.035) Urine Protein 1+ (NEGATIVE) H Urine Glucose (UA) Negative (NEGATIVE) Urine Ketones 1+ (NEGATIVE) H Urine Blood 1+ (NEGATIVE) H Urine Nitrite Negative (NEGATIVE) Urine Bilirubin 2+ (NEGATIVE) H Urine Ictotest Negative (NEGATIVE) Urine Urobilinogen 1 MG/DL (0.0-1.0) H Urine Leukocyte Esterase 1+ (NEGATIVE) H Urine RBC 5-10 /HPF (0 - 0) H Urine WBC 2-4 /HPF (0 - 0) Urine Squamous Epithelial Cells None /LPF (NONE/OCC) Urine Amorphous Sediment Few /LPF (NONE) H Urine Bacteria Many /HPF (NONE) H White Blood Count 40.3 K/UL (4.8-10.8) *H 27.1 K/UL (4.8-10.8) *H Red Blood Count 1.92 M/UL (4.70-6.10) L 2.97 M/UL (4.70-6.10) L Hemoglobin 6.1 G/DL (14.2-18.0) 9.3 G/DL (14.2-18.0) #L Hematocrit 17.6 % (42.0-52.0) #L 26.5 % (42.0-52.0) #L Mean Corpuscular Volume 91 FL (80-99) 89 FL (80-99) Mean Corpuscular Hemoglobin 32.0 PG (27.0-31.0) H 31.4 PG (27.0-31.0) H Mean Corpuscular Hemoglobin Concent 35.0 G/DL (32.0-36.0) 35.2 G/DL (32.0-36.0) Red Cell Distribution Width 15.0 % (11.6-14.8) H 14.2 % (11.6-14.8) Platelet Count 264 K/UL (150-450) 216 K/UL (150-450) Mean Platelet Volume 5.5 FL (6.5-10.1) L 5.7 FL (6.5-10.1) L Neutrophils (%) (Auto) % (45.0-75.0) % (45.0-75.0) Lymphocytes (%) (Auto) % (20.0-45.0) % (20.0-45.0) Monocytes (%) (Auto) % (1.0-10.0) % (1.0-10.0) Eosinophils (%) (Auto) % (0.0-3.0) % (0.0-3.0) Basophils (%) (Auto) % (0.0-2.0) % (0.0-2.0) Differential Total Cells Counted 100 100 Neutrophils % (Manual) 89 % (45-75) H 82 % (45-75) H Lymphocytes % (Manual) 6 % (20-45) L 10 % (20-45) L Monocytes % (Manual) 3 % (1-10) 6 % (1-10) Eosinophils % (Manual) 0 % (0-3) 0 % (0-3) Basophils % (Manual) 0 % (0-2) 0 % (0-2) Band Neutrophils 2 % (0-8) 2 % (0-8) Platelet Estimate Adequate Adequate Platelet Morphology Normal Normal Hypochromasia 1+ Anisocytosis 1+ 1+ Prothrombin Time 11.6 SEC (9.30-11.50) H 10.8 SEC (9.30-11.50) Prothromb Time International Ratio 1.1 (0.9-1.1) 1.0 (0.9-1.1) Activated Partial Thromboplast Time 25 SEC (23-33) 23 SEC (23-33) Sodium Level 140 MMOL/L (136-145) 145 MMOL/L (136-145) Potassium Level 4.4 MMOL/L (3.5-5.1) 4.3 MMOL/L (3.5-5.1) Chloride Level 106 MMOL/L (98-107) 110 MMOL/L (98-107) H Carbon Dioxide Level 19 MMOL/L (21-32) L 25 MMOL/L (21-32) Anion Gap 15 mmol/L (5-15) 10 mmol/L (5-15) Blood Urea Nitrogen 58 mg/dL (7-18) H 63 mg/dL (7-18) H Creatinine 1.1 MG/DL (0.55-1.30) 1.1 MG/DL (0.55-1.30) Estimat Glomerular Filtration Rate mL/min (>60) mL/min (>60) Glucose Level 211 MG/DL (74-106) H 141 MG/DL (74-106) H Calcium Level 7.6 MG/DL (8.5-10.1) L 8.0 MG/DL (8.5-10.1) L Total Bilirubin 0.4 MG/DL (0.2-1.0) 0.6 MG/DL (0.2-1.0) Aspartate Amino Transf (AST/SGOT) 22 U/L (15-37) 22 U/L (15-37) Alanine Aminotransferase (ALT/SGPT) 14 U/L (12-78) 13 U/L (12-78) Alkaline Phosphatase 65 U/L (46-116) 68 U/L (46-116) Total Protein 3.4 G/DL (6.4-8.2) L 4.1 G/DL (6.4-8.2) L Albumin 1.0 G/DL (3.4-5.0) L 1.2 G/DL (3.4-5.0) L Globulin 2.4 g/dL 2.9 g/dL Albumin/Globulin Ratio 0.4 (1.0-2.7) L 0.4 (1.0-2.7) L Nucleated Red Blood Cells 1 /100 WBC Polychromasia 3+ Uric Acid 5.6 MG/DL (2.6-7.2) Phosphorus Level 5.4 MG/DL (2.5-4.9) H Magnesium Level 2.0 MG/DL (1.8-2.4) Random Vancomycin Level 27.7 ug/mL Microbiology Date/Time Source Procedure Growth Status 11/28/18 16:50 Stool Clostridium difficile Toxin Assay - Final Complete 11/28/18 16:50 Urine,Clean Catch Urine Culture - Preliminary NO GROWTH Resulted Objective HEAD AND NECK: No JVD. LUNGS: Decreased breath sounds. CARDIOVASCULAR: Regular S1 and S2 with no gallop . ABDOMEN: Soft. G-tube intact. EXTREMITIES: Upper extremity and LE edema. Earl Washington MD Nov 29, 2018 14:56
--- NOTE | 2018-11-29 15:00 | NUR ---
NURSE NOTES: Pt is asleep, currently on Venturi mask at 50% FIO2 with O2Sat fluctuating in the 90's. Remains NPO per MD order. GT site dressing dry/intact. Peripheral IV access is TKO being used for antibiotics and IV push meds, patent/intact. Bradley continues to drain light alexandrea urine from 30-40ml/hourly output. VS stable. Bilateral extremities are elevated on pillows.
--- NOTE | 2018-11-29 15:47 | Nephrology Progress Note ---
Assessment/Plan Problem List: (1) Hyponatremia Assessment: Na higher (2) UTI (urinary tract infection) (3) Anemia, chronic disease (4) Alzheimer's dementia (5) Parkinson disease (6) C. difficile colitis Assessment Low Na corrected GI bleed transfused other conditions Pneumonia UTI, has grewal bacteremia sacral decub dementia HTN Sz disorder Parkinsons severe Anemia Plan Albumin bolus and transfusion for low BP as needed stop HypoTonic IV solution start maintenence IV fluid Urine studies Transfusion as needed Per orders roberto carlos khalil Subjective ROS Limited/Unobtainable: No Constitutional: Reports: malaise, weakness Objective Objective Last 24 Hour Vital Signs Date Time Temp Pulse Resp B/P (MAP) Pulse Ox O2 Delivery O2 Flow Rate FiO2 11/29/18 15:00 87 19 101/61 (74) 97 11/29/18 14:30 90 12 132/67 (88) 100 11/29/18 14:00 90 14 114/65 (81) 99 11/29/18 13:00 93 14 122/69 (86) 100 11/29/18 12:00 91 11/29/18 12:00 98.6 94 25 112/68 (83) 100 11/29/18 12:00 Venturi Mask 14.0 11/29/18 11:00 96 14 120/71 (87) 100 11/29/18 10:00 107 22 145/74 (97) 97 11/29/18 09:30 102 18 135/75 (95) 94 11/29/18 09:15 103 19 135/68 (90) 96 11/29/18 09:00 102 22 139/77 (97) 100 11/29/18 08:45 100 16 138/77 (97) 100 11/29/18 08:30 101 16 133/80 (97) 100 11/29/18 08:15 100 15 125/74 (91) 100 11/29/18 08:00 98.5 101 17 121/69 (86) 100 11/29/18 08:00 Venturi Mask 14.0 11/29/18 08:00 101 11/29/18 07:43 101 22 100 11/29/18 07:00 100 21 122/64 (83) 99 11/29/18 06:00 98 21 121/71 (88) 99 11/29/18 05:00 99 21 129/72 (91) 99 11/29/18 04:00 Venturi Mask 14.0 11/29/18 04:00 98.5 105 22 137/75 (95) 100 11/29/18 04:00 114 11/29/18 03:00 107 21 131/85 (100) 99 11/29/18 02:00 107 21 117/70 (86) 99 11/29/18 01:00 112 21 132/63 (86) 100 11/29/18 00:00 Venturi Mask 14.0 11/29/18 00:00 116 11/29/18 00:00 98.5 115 22 130/59 (82) 94 11/28/18 23:10 114 21 123/55 (77) 96 11/28/18 23:00 114 21 123/55 (77) 97 11/28/18 22:55 98.5 116 21 100/47 (64) 95 11/28/18 22:00 118 21 96/48 (64) 100 11/28/18 21:00 113 21 101/55 (70) 100 11/28/18 20:25 97.7 113 22 102/62 (75) 100 11/28/18 20:00 Non-Rebreather 15.0 11/28/18 20:00 110 11/28/18 20:00 97.5 113 22 102/48 (66) 100 11/28/18 19:29 97 Non-Rebreather 15.0 100 11/28/18 19:29 115 23 97 Non-Rebreather 15.0 100 11/28/18 19:00 111 22 85/46 (59) 98 11/28/18 18:00 120 18 109/48 (68) 92 11/28/18 17:00 123 11/28/18 17:00 118 24 102/62 (75) 96 11/28/18 16:00 Nasal Cannula 3.0 11/28/18 16:00 98.8 120 24 101/48 (65) 100 Intake and Output 11/28/18 11/29/18 18:59 06:59 Intake Total 3220.0 ml 610.0 ml Output Total 3685 ml 195 ml Balance -465.0 ml 415.0 ml IV Total 220.0 ml 110.0 ml Blood Product 500 ml Other 3000 ml Output Urine Total 285 ml 195 ml Other 3400 ml # Bowel Movements 3 Laboratory Tests 11/28/18 16:50: Urine Color Brown, Urine Appearance Slightly cloudy, Urine pH 5, Urine Specific [place] 1.025, Urine Protein 1+H, Urine Glucose (UA) Negative, Urine Ketones 1+H , Urine Blood 1+H, Urine Nitrite Negative, Urine Bilirubin 2+H, Urine Ictotest Negative, Urine Urobilinogen 1H, Urine Leukocyte Esterase 1+H, Urine RBC 5-10H, Urine WBC 2-4, Urine Squamous Epithelial Cells None, Urine Amorphous Sediment FewH, Urine Bacteria ManyH 11/28/18 18:26: White Blood Count 40.3*H, Red Blood Count 1.92L, Hemoglobin 6.1#*L, Hematocrit 17.6#L, Mean Corpuscular Volume 91, Mean Corpuscular Hemoglobin 32.0H, Mean Corpuscular Hemoglobin Concent 35.0, Red Cell Distribution Width 15.0H, Platelet Count 264, Mean Platelet Volume 5.5L, Neutrophils (%) (Auto) , Lymphocytes (%) (Auto) , Monocytes (%) (Auto) , Eosinophils (%) (Auto) , Basophils (%) (Auto) , Differential Total Cells Counted 100, Neutrophils % ( Manual) 89H, Lymphocytes % (Manual) 6L, Monocytes % (Manual) 3, Eosinophils % ( Manual) 0, Basophils % (Manual) 0, Band Neutrophils 2, Platelet Estimate Adequate, Platelet Morphology Normal, Hypochromasia 1+, Anisocytosis 1+, Prothrombin Time 11.6H, Prothromb Time International Ratio 1.1, Activated Partial Thromboplast Time 25, Sodium Level 140, Potassium Level 4.4, Chloride Level 106, Carbon Dioxide Level 19L, Anion Gap 15, Blood Urea Nitrogen 58H, Creatinine 1.1, Estimat Glomerular Filtration Rate , Glucose Level 211H, Calcium Level 7.6L, Total Bilirubin 0.4, Aspartate Amino Transf (AST/SGOT) 22, Alanine Aminotransferase (ALT/SGPT) 14, Alkaline Phosphatase 65, Total Protein 3.4L, Albumin 1.0L, Globulin 2.4, Albumin/Globulin Ratio 0.4L 11/29/18 04:30: White Blood Count 27.1*H, Red Blood Count 2.97L, Hemoglobin 9.3#L, Hematocrit 26.5#L, Mean Corpuscular Volume 89, Mean Corpuscular Hemoglobin 31.4H, Mean Corpuscular Hemoglobin Concent 35.2, Red Cell Distribution Width 14.2, Platelet Count 216, Mean Platelet Volume 5.7L, Neutrophils (%) (Auto) , Lymphocytes (%) ( Auto) , Monocytes (%) (Auto) , Eosinophils (%) (Auto) , Basophils (%) (Auto) , Differential Total Cells Counted 100, Neutrophils % (Manual) 82H, Lymphocytes % (Manual) 10L, Monocytes % (Manual) 6, Eosinophils % (Manual) 0, Basophils % ( Manual) 0, Band Neutrophils 2, Platelet Estimate Adequate, Platelet Morphology Normal, Anisocytosis 1+, Prothrombin Time 10.8, Prothromb Time International Ratio 1.0, Activated Partial Thromboplast Time 23, Sodium Level 145, Potassium Level 4.3, Chloride Level 110H, Carbon Dioxide Level 25, Anion Gap 10, Blood Urea Nitrogen 63H, Creatinine 1.1, Estimat Glomerular Filtration Rate , Glucose Level 141H, Calcium Level 8.0L, Total Bilirubin 0.6, Aspartate Amino Transf (AST /SGOT) 22, Alanine Aminotransferase (ALT/SGPT) 13, Alkaline Phosphatase 68, Total Protein 4.1L, Albumin 1.2L, Globulin 2.9, Albumin/Globulin Ratio 0.4L, Nucleated Red Blood Cells 1, Polychromasia 3+, Uric Acid 5.6, Phosphorus Level 5.4H, Magnesium Level 2.0, Random Vancomycin Level 27.7 Height (Feet): 5 Height (Inches): 7.00 Weight (Pounds): 130 General Appearance: no apparent distress Cardiovascular: tachycardia Respiratory/Chest: decreased breath sounds Abdomen: soft Objective no change Kendall Trinidad MD Nov 29, 2018 15:47
--- NOTE | 2018-11-29 16:34 | Surgery Progress Note ---
Surgery Progress Note Subjective Additional Comments Patient seen and examined at bedside. Had colonoscopy this morning by gastroenterology which identified diverticulosis but no active bleeding. Blood clots noted. Patient had maroon bowel movement after scope but no acute active bleeding. Hemoglobin stable after transfusion. Objective Last 24 Hour Vital Signs Date Time Temp Pulse Resp B/P (MAP) Pulse Ox O2 Delivery O2 Flow Rate FiO2 11/29/18 15:00 87 19 101/61 (74) 97 11/29/18 14:30 90 12 132/67 (88) 100 11/29/18 14:00 90 14 114/65 (81) 99 11/29/18 13:00 93 14 122/69 (86) 100 11/29/18 12:00 91 11/29/18 12:00 98.6 94 25 112/68 (83) 100 11/29/18 12:00 Venturi Mask 14.0 11/29/18 11:00 96 14 120/71 (87) 100 11/29/18 10:00 107 22 145/74 (97) 97 11/29/18 09:30 102 18 135/75 (95) 94 11/29/18 09:15 103 19 135/68 (90) 96 11/29/18 09:00 102 22 139/77 (97) 100 11/29/18 08:45 100 16 138/77 (97) 100 11/29/18 08:30 101 16 133/80 (97) 100 11/29/18 08:15 100 15 125/74 (91) 100 11/29/18 08:00 98.5 101 17 121/69 (86) 100 11/29/18 08:00 Venturi Mask 14.0 11/29/18 08:00 101 11/29/18 07:43 101 22 100 11/29/18 07:00 100 21 122/64 (83) 99 11/29/18 06:00 98 21 121/71 (88) 99 11/29/18 05:00 99 21 129/72 (91) 99 11/29/18 04:00 Venturi Mask 14.0 11/29/18 04:00 98.5 105 22 137/75 (95) 100 11/29/18 04:00 114 11/29/18 03:00 107 21 131/85 (100) 99 11/29/18 02:00 107 21 117/70 (86) 99 11/29/18 01:00 112 21 132/63 (86) 100 11/29/18 00:00 Venturi Mask 14.0 11/29/18 00:00 116 11/29/18 00:00 98.5 115 22 130/59 (82) 94 11/28/18 23:10 114 21 123/55 (77) 96 11/28/18 23:00 114 21 123/55 (77) 97 11/28/18 22:55 98.5 116 21 100/47 (64) 95 11/28/18 22:00 118 21 96/48 (64) 100 11/28/18 21:00 113 21 101/55 (70) 100 11/28/18 20:25 97.7 113 22 102/62 (75) 100 11/28/18 20:00 Non-Rebreather 15.0 11/28/18 20:00 110 11/28/18 20:00 97.5 113 22 102/48 (66) 100 11/28/18 19:29 97 Non-Rebreather 15.0 100 11/28/18 19:29 115 23 97 Non-Rebreather 15.0 100 11/28/18 19:00 111 22 85/46 (59) 98 11/28/18 18:00 120 18 109/48 (68) 92 11/28/18 17:00 123 11/28/18 17:00 118 24 102/62 (75) 96 I&O Intake and Output 11/28/18 11/29/18 18:59 06:59 Intake Total 3220.0 ml 610.0 ml Output Total 3685 ml 195 ml Balance -465.0 ml 415.0 ml IV Total 220.0 ml 110.0 ml Blood Product 500 ml Other 3000 ml Output Urine Total 285 ml 195 ml Other 3400 ml # Bowel Movements 3 Cardiovascular: RSR Respiratory: clear, decreased breath sounds Abdomen: soft, non-tender, present bowel sounds Extremities: no tenderness, no cyanosis Laboratory Tests Test 11/28/18 16:50 11/28/18 18:26 11/29/18 04:30 Urine Color Brown Urine Appearance Slightly cloudy Urine pH 5 (4.5-8.0) Urine Specific [place] 1.025 (1.005-1.035) Urine Protein 1+ (NEGATIVE) H Urine Glucose (UA) Negative (NEGATIVE) Urine Ketones 1+ (NEGATIVE) H Urine Blood 1+ (NEGATIVE) H Urine Nitrite Negative (NEGATIVE) Urine Bilirubin 2+ (NEGATIVE) H Urine Ictotest Negative (NEGATIVE) Urine Urobilinogen 1 MG/DL (0.0-1.0) H Urine Leukocyte Esterase 1+ (NEGATIVE) H Urine RBC 5-10 /HPF (0 - 0) H Urine WBC 2-4 /HPF (0 - 0) Urine Squamous Epithelial Cells None /LPF (NONE/OCC) Urine Amorphous Sediment Few /LPF (NONE) H Urine Bacteria Many /HPF (NONE) H White Blood Count 40.3 K/UL (4.8-10.8) *H 27.1 K/UL (4.8-10.8) *H Red Blood Count 1.92 M/UL (4.70-6.10) L 2.97 M/UL (4.70-6.10) L Hemoglobin 6.1 G/DL (14.2-18.0) 9.3 G/DL (14.2-18.0) #L Hematocrit 17.6 % (42.0-52.0) #L 26.5 % (42.0-52.0) #L Mean Corpuscular Volume 91 FL (80-99) 89 FL (80-99) Mean Corpuscular Hemoglobin 32.0 PG (27.0-31.0) H 31.4 PG (27.0-31.0) H Mean Corpuscular Hemoglobin Concent 35.0 G/DL (32.0-36.0) 35.2 G/DL (32.0-36.0) Red Cell Distribution Width 15.0 % (11.6-14.8) H 14.2 % (11.6-14.8) Platelet Count 264 K/UL (150-450) 216 K/UL (150-450) Mean Platelet Volume 5.5 FL (6.5-10.1) L 5.7 FL (6.5-10.1) L Neutrophils (%) (Auto) % (45.0-75.0) % (45.0-75.0) Lymphocytes (%) (Auto) % (20.0-45.0) % (20.0-45.0) Monocytes (%) (Auto) % (1.0-10.0) % (1.0-10.0) Eosinophils (%) (Auto) % (0.0-3.0) % (0.0-3.0) Basophils (%) (Auto) % (0.0-2.0) % (0.0-2.0) Differential Total Cells Counted 100 100 Neutrophils % (Manual) 89 % (45-75) H 82 % (45-75) H Lymphocytes % (Manual) 6 % (20-45) L 10 % (20-45) L Monocytes % (Manual) 3 % (1-10) 6 % (1-10) Eosinophils % (Manual) 0 % (0-3) 0 % (0-3) Basophils % (Manual) 0 % (0-2) 0 % (0-2) Band Neutrophils 2 % (0-8) 2 % (0-8) Platelet Estimate Adequate Adequate Platelet Morphology Normal Normal Hypochromasia 1+ Anisocytosis 1+ 1+ Prothrombin Time 11.6 SEC (9.30-11.50) H 10.8 SEC (9.30-11.50) Prothromb Time International Ratio 1.1 (0.9-1.1) 1.0 (0.9-1.1) Activated Partial Thromboplast Time 25 SEC (23-33) 23 SEC (23-33) Sodium Level 140 MMOL/L (136-145) 145 MMOL/L (136-145) Potassium Level 4.4 MMOL/L (3.5-5.1) 4.3 MMOL/L (3.5-5.1) Chloride Level 106 MMOL/L (98-107) 110 MMOL/L (98-107) H Carbon Dioxide Level 19 MMOL/L (21-32) L 25 MMOL/L (21-32) Anion Gap 15 mmol/L (5-15) 10 mmol/L (5-15) Blood Urea Nitrogen 58 mg/dL (7-18) H 63 mg/dL (7-18) H Creatinine 1.1 MG/DL (0.55-1.30) 1.1 MG/DL (0.55-1.30) Estimat Glomerular Filtration Rate mL/min (>60) mL/min (>60) Glucose Level 211 MG/DL (74-106) H 141 MG/DL (74-106) H Calcium Level 7.6 MG/DL (8.5-10.1) L 8.0 MG/DL (8.5-10.1) L Total Bilirubin 0.4 MG/DL (0.2-1.0) 0.6 MG/DL (0.2-1.0) Aspartate Amino Transf (AST/SGOT) 22 U/L (15-37) 22 U/L (15-37) Alanine Aminotransferase (ALT/SGPT) 14 U/L (12-78) 13 U/L (12-78) Alkaline Phosphatase 65 U/L (46-116) 68 U/L (46-116) Total Protein 3.4 G/DL (6.4-8.2) L 4.1 G/DL (6.4-8.2) L Albumin 1.0 G/DL (3.4-5.0) L 1.2 G/DL (3.4-5.0) L Globulin 2.4 g/dL 2.9 g/dL Albumin/Globulin Ratio 0.4 (1.0-2.7) L 0.4 (1.0-2.7) L Nucleated Red Blood Cells 1 /100 WBC Polychromasia 3+ Uric Acid 5.6 MG/DL (2.6-7.2) Phosphorus Level 5.4 MG/DL (2.5-4.9) H Magnesium Level 2.0 MG/DL (1.8-2.4) Random Vancomycin Level 27.7 ug/mL Plan Problems: (1) Decubitus skin ulcer Assessment & Plan: Pt presented on admission with multiple pressure injuries. Violaceous macular rash noted to L shoulder ,Upper L side of back and lateral L chest. L upper ext edematous with scattered petechiae. Category 2 skin tear with 10% flap loss noted to L brachial. Small amt sanguineous exudate noted. Unstageable pressure injury Sacrum . Base of wound noted to have 100% mixed slough.necrosis .Edges semi-detached and erythematous. Surrounding non- blanchable erythema without elevation in skin temp ,or induration. (L)9.5cm x (W )6.5cm. NO odor or exudate noted. Full thickness pressure injury lumbar spine in close proximity to sacral pressure injury.Base of wound pink with scattered biofilm. (L)2cm x (W)1.6cm. (+ ) maceration along borders. Periwound without erythema or induration. DTPI noted to medial L heel (L)3.2cm x (W)4.5cm. Base of fluctuant with delineated erythematous borders. Periwound fluctuant with non-blanchable erythema.Additionally, an area of stable dry eschar noted to posterior L heel(L) 0.6cm x (W)0.8cm DTPI Noted to lateral R heel. Maroon discoloration that is fluctuant within base of wound.(L)2.5cm x (W)1cm. DTPI noted to medial R heel. Base of wound fluctuant and is maroon in colour (L) 1.5cm x (W)1cm. Maroon discoloration without fluctuance or induration noted to lateral R tibia , superior but in close proximity to lateral Malleolus.(L)1.4cm x (W)0.5cm. Tx.Plan: Cleanse skin tear L brachial. (Maintain Versatel Contact layer)Apply Silvasorb Gel. Cover with Optifoam drsg. Change every 7 days and prn. Cleanse Sacral wound with Saline. Apply Therahoney. Apply Moisture Barrier Paste periwound. Cover with Optifoam drsg. Change every 3 days and prn. Cleanse wound Lumbar spine with saline. Apply Therahoney. Apply Cavilon Skin Barrier periwound. Cover with Optifoam drsg. Change every 3 days and prn. Apply Cavilon Skin Barrier to Lateral R tibia, R heel and L heel. Cover each site with Optifoam drsg. Change every 7 days and prn. APM/FERNANDEZ mattress overlay. Reposition at least every 2hours or as tolerated. Off-load heels with pillow. (2) Acute DVT (deep venous thrombosis) (3) HCAP (healthcare-associated pneumonia) (4) UTI (urinary tract infection) (5) Anemia, chronic disease (6) Sepsis Assessment & Plan: acute gi bleed transfuse prn trend labs cont abx appreciate ID input (7) Feeding by G-tube Assessment & Plan: DAILY ESTIMATED NEEDS: Needs based on Sepsis, wound 60.5kg 25-35 kcals/kg 9965-2695 total kcals 1.25-2 g protein/kg 76-121 g total protein 25-30 mL/kg 8829-2173 total fluid mLs NUTRITION DIAGNOSIS: 1) Increased kcal and pro needs r/t wound healing as evidenced by pt w/ sacral unstageable wound and L heel DTPI. 2) Swallowing difficulty r/t dysphagia as evidenced by pt w/ Parkinson's dz, GT dependent. ENTERAL NUTRITION RECOMMENDATIONS: Glucerna 1.2 @60ml/hr x24 hrs to provide 1440ml, 1728 kcal, 86g pro, 1159ml free H2O - As medically able, rec to start Glucerna 1.2 @20ml/hr, advance as tolerated 10ml q4-6 hrs to goal. 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 Eliquis has been stopped for 48 hours now and bleeding seems to have resolved. Patient has been transfused and currently hemoglobin stable. Colonoscopy today performed and no active bleeding noted. Trend labs. We will continue to monitor. (16) C. difficile colitis Andrew Eugene Nov 29, 2018 16:34
--- NOTE | 2018-11-29 17:00 | NUR ---
NURSE NOTES: Pt was cleaned, wound photos taken and uploaded, wound dressings changed. Gown/linens changed. Oral care done. Pt was repositioned with bilateral extremities elevated on pillows.
[2018-11-29] MEDS: Lactobacillus-GG tablet ORAL SCH (17:47)
[2018-11-29] MEDS: D5NS 1,000 ML IV SCH (17:47)
[2018-11-29] MEDS ORDERED: NS 500ML ONE (18:04)
[2018-11-29] MEDS ORDERED: Tubing Blood Filter IV ONE (18:04)
[2018-11-29] MEDS ORDERED: Tubing IV Secondary IV ONE (18:04)
[2018-11-29] MEDS ORDERED: NS 275ml ONE (18:04)
[2018-11-29 18:31] LABS: HEMATOCRIT 20.1 % (42.0-52.0); HEMOGLOBIN 7.3 G/DL (14.2-18.0); MEAN CORPUSCULAR VOLUME 89 FL (80-99); PLATELET COUNT 181 K/UL (150-450); RED BLOOD COUNT 2.26 M/UL (4.70-6.10); RED CELL DISTRIBUTION WIDTH 13.8 % (11.6-14.8)
[2018-11-29 18:34] LABS: MONOCYTES % (AUTO) 5.7 % (1.0-10.0); NEUTROPHILS % (AUTO) 85.6 % (45.0-75.0)
[2018-11-29 18:35] LABS: BASOPHILS % (AUTO) 0.5 % (0.0-2.0); EOSINOPHILS % (AUTO) 0.2 % (0.0-3.0)
--- NOTE | 2018-11-29 19:20 | NUR ---
NURSE NOTES: Dr Eugene was informed regarding Hgb result from today's 1800 blood draw. Order received for 1unit of PRBC to be transfused. Will indorse to next shift.
--- NOTE | 2018-11-29 19:40 | NUR ---
HAND-OFF: Report given to Constantin DUNN. VS stable. Endorsed plan of care, including order from Dr Eugene for 1unit of PRBC to be transfused for Hgb 7.3 from today's 1800 blood draw.
--- NOTE | 2018-11-29 19:50 | NUR ---
NURSE NOTES: PATIENT LETHARGIC, DID NOT FOLLOWED COMMANDS, ON FIO2 55% VENTURI MASK, O2 SATURATION OVER 98% NOTED, ABDOMEN SOFT, G TUBE INTACT AND PATENT, NPO STATUS, F/C INTACT AND PATENT, DARK YELLOW URINE OUT, PERIPHERAL LINE TO LEFT UPPER CHEST 24G AND 22G, INTACT AND PATENT, ONGOING D5W NS AT 75ML/HR VIA 24G PERIPHERAL LINE, ON P200 BED, MADE LOWER BED POSITION AND PROVIDED CALL LIGHT WITHIN REACH, WILL CONTINUE TO MONITOR.
--- NOTE | 2018-11-29 20:08 | Hematology/Onc Progress Note ---
Assessment/Plan Assessment/Plan # Acute right leg DVT. Heparin drip DCed for rectal bleed. s/p IVC FILTER --> agree with need for this given coagulant contraindication --> appreciate gi and pulm/cc recs --> UPPER EXT DVT noted as well --> have discontinued eliquis given acute GI bleed on 11/27/18, ON HOLD --> in icu as of 11/27 # Anemia due to GI Bleed, other causes exist, multifactorial --> Anemia workup has been reviewed, FERRITIN 831 --> No evidence of hemolysis is noted, peripheral smear has been reviewed. --> Hgb goal >7. Transfuse prn. --> Epogen or iron at this time is not particularly indicated --> Medications have been reviewed --> low threshold for gi evaluation in case has occult +--> endoscopy and colo pending --> hgb trend: 7.4-->9.0-->9-->8.6->8.9-->6.1-->9.8--> 7.3 --> Blood tx: 1 unit 11/19, 11/27 # Leukocytosis due to sepsis. --> Monitor for improvement --> urine and blood cultures are both positive, mrsa positive --> IV abx per id --> trend wbc 11.6--> 16 # Sinus tach due to anemia and sepsis and beta danya withdrawal as was on Metoprolol 12.5 bid at [facility] --> per cards recs # Hypertension. Hold Metoprolol as BP is 90s. --> cloniditon per cards # S/P PEG The timing of this note does not necessarily reflect the time of the patient was seen. GREATLY APPRECIATE CONSULTATION. Subjective Allergies: Coded Allergies: No Known Allergies (Unverified , 11/18/18) Subjective Subjective 11/20: Colonoscopy for today. S/P 1 unit prbc. 11/21: Pt awake and nonverbal. Hgb at 7.4, blood tx ordered. 11/23: Pt no acute respiratory distress. CXR Increased bilateral lower lobe atelectasis or airspace consolidation. Underlying pneumonia may be present. Small bilateral pleural effusions. 11/24: no events, no f/c noted, no bleeding, anemia panel reviewed, s/p ivc filter 11/25: No acute events, no signs of distress. DC planning 11/26: no events, no bleeding, noted to have b/l upper ext dvt, acute started on elqiuis 11/27: sbo was ow in the am, transferred to the icu, hgb low requiring transfusion 11/28: Left UE edema > Right UE, s/p blood transfusion 11/27. 11/29:pt is on Venti mask, lethargic. Objective Objective Current Medications Medications (Trade) Dose Ordered Sig/Pauline Route PRN Reason Start Time Stop Time Status Last Admin Dose Admin Acetaminophen (Tylenol) 650 mg Q4H PRN GT T>100.5 11/27/18 18:18 12/22/18 18:17 Albuterol/ Ipratropium (Albuterol/ Ipratropium) 3 ml Q4H PRN HHN Shortness of Breath 11/27/18 18:18 12/02/18 18:17 Carbidopa/Levodopa (Sinemet 25/100) 1 tab THREE TIMES A DAY GT 11/27/18 18:00 12/27/18 17:59 11/29/18 17:47 Clonidine HCl (Catapres Tab) 0.1 mg Q4H PRN GT sbp>170mmHg 11/27/18 18:18 12/22/18 18:17 Dextrose (Dextrose 50%) 25 ml Q30M PRN IV Hypoglycemia 11/27/18 18:18 12/18/18 18:17 Dextrose (Dextrose 50%) 50 ml Q30M PRN IV Hypoglycemia 11/27/18 18:18 12/18/18 18:17 Dextrose/Sodium Chloride 1,000 ml @ 75 mls/hr [id number] IV 11/29/18 15:45 12/29/18 15:44 11/29/18 17:47 Lactobacillus Acidophilus (Culturelle) 1 tab THREE TIMES A DAY ORAL 11/29/18 18:00 12/29/18 17:59 11/29/18 17:47 Metronidazole 100 ml @ 100 mls/hr Q6H IVPB 11/29/18 14:00 12/06/18 13:59 11/29/18 19:46 Pantoprazole (Protonix) 40 mg DAILY IVP 11/30/18 09:00 12/30/18 08:59 Vancomycin HCl (Firvanq) 125 mg FOUR TIMES A DAY ORAL 11/29/18 09:00 12/06/18 08:59 11/29/18 17:47 Vancomycin HCl (Vanco rx to dose) 1 ea DAILY PRN MISC Per rx protocol 11/27/18 18:18 12/27/18 18:17 Last 24 Hour Vital Signs Date Time Temp Pulse Resp B/P (MAP) Pulse Ox O2 Delivery O2 Flow Rate FiO2 11/29/18 19:00 85 15 98/60 (73) 99 11/29/18 18:54 87 18 99 Venturi Mask 14.0 55 11/29/18 18:54 99 Venturi Mask 14.0 55 11/29/18 18:00 90 13 120/66 (84) 98 11/29/18 17:00 96 16 114/67 (83) 90 11/29/18 16:30 97 16 125/70 (88) 94 11/29/18 16:00 98.2 97 17 141/74 (96) 100 11/29/18 16:00 Venturi Mask 14.0 11/29/18 16:00 86 11/29/18 15:00 87 19 101/61 (74) 97 11/29/18 14:30 90 12 132/67 (88) 100 11/29/18 14:00 90 14 114/65 (81) 99 11/29/18 13:00 93 14 122/69 (86) 100 11/29/18 12:00 91 11/29/18 12:00 98.6 94 25 112/68 (83) 100 11/29/18 12:00 Venturi Mask 14.0 11/29/18 11:00 96 14 120/71 (87) 100 11/29/18 10:00 107 22 145/74 (97) 97 11/29/18 09:30 102 18 135/75 (95) 94 11/29/18 09:15 103 19 135/68 (90) 96 11/29/18 09:00 102 22 139/77 (97) 100 11/29/18 08:45 100 16 138/77 (97) 100 11/29/18 08:30 101 16 133/80 (97) 100 11/29/18 08:15 100 15 125/74 (91) 100 11/29/18 08:00 98.5 101 17 121/69 (86) 100 11/29/18 08:00 Venturi Mask 14.0 11/29/18 08:00 101 11/29/18 07:43 101 22 100 11/29/18 07:00 100 21 122/64 (83) 99 11/29/18 06:00 98 21 121/71 (88) 99 11/29/18 05:00 99 21 129/72 (91) 99 11/29/18 04:00 Venturi Mask 14.0 11/29/18 04:00 98.5 105 22 137/75 (95) 100 11/29/18 04:00 114 11/29/18 03:00 107 21 131/85 (100) 99 11/29/18 02:00 107 21 117/70 (86) 99 11/29/18 01:00 112 21 132/63 (86) 100 11/29/18 00:00 Venturi Mask 14.0 11/29/18 00:00 116 11/29/18 00:00 98.5 115 22 130/59 (82) 94 11/28/18 23:10 114 21 123/55 (77) 96 11/28/18 23:00 114 21 123/55 (77) 97 11/28/18 22:55 98.5 116 21 100/47 (64) 95 11/28/18 22:00 118 21 96/48 (64) 100 11/28/18 21:00 113 21 101/55 (70) 100 11/28/18 20:25 97.7 113 22 102/62 (75) 100 11/28/18 20:00 Non-Rebreather 15.0 11/28/18 20:00 110 11/28/18 20:00 97.5 113 22 102/48 (66) 100 11/28/18 19:29 97 Non-Rebreather 15.0 100 11/28/18 19:29 115 23 97 Non-Rebreather 15.0 100 11/28/18 19:00 111 22 85/46 (59) 98 11/28/18 18:00 120 18 109/48 (68) 92 11/28/18 17:00 123 11/28/18 17:00 118 24 102/62 (75) 96 11/28/18 16:00 Nasal Cannula 3.0 11/28/18 16:00 98.8 120 24 101/48 (65) 100 11/28/18 15:00 119 24 119/79 (92) 100 11/28/18 13:00 118 24 108/60 (76) 98 11/28/18 12:00 Nasal Cannula 3.0 11/28/18 12:00 119 11/28/18 12:00 99.0 120 24 104/61 (75) 96 11/28/18 11:00 120 24 119/76 (90) 98 11/28/18 10:00 123 24 111/59 (76) 98 11/28/18 09:40 126 22 100 Nasal Cannula 2.0 28 11/28/18 09:40 100 Nasal Cannula 2.0 28 11/28/18 09:00 130 11/28/18 09:00 125 24 136/69 (91) 99 11/28/18 08:00 98.6 135 24 104/61 (75) 96 11/28/18 08:00 Nasal Cannula 3.0 11/28/18 07:00 130 26 125/104 (111) 98 11/28/18 06:00 129 26 128/71 (90) 98 11/28/18 05:00 125 23 112/57 (75) 98 11/28/18 04:00 Nasal Cannula 3.0 11/28/18 04:00 123 11/28/18 04:00 98.6 124 25 121/96 (104) 99 11/28/18 03:00 123 25 95/58 (70) 99 11/28/18 02:00 124 26 100/64 (76) 100 11/28/18 01:00 98.5 129 31 90/50 (63) 99 11/28/18 00:00 99.0 137 33 93/51 (65) 98 11/28/18 00:00 Nasal Cannula 3.0 11/28/18 00:00 136 11/27/18 23:30 137 34 105/58 (74) 98 11/27/18 23:00 137 38 97/48 (64) 95 11/27/18 22:30 99.0 135 37 95/57 (70) 95 11/27/18 22:00 137 33 105/53 (70) 98 11/27/18 21:30 142 29 105/54 (71) 98 11/27/18 21:00 143 28 107/57 (74) 99 11/27/18 20:30 146 28 108/52 (70) 99 Intake and Output 11/28/18 11/29/18 19:00 07:00 Intake Total 3192.5 ml 610.0 ml Output Total 3675 ml 215 ml Balance -482.5 ml 395.0 ml IV Total 192.5 ml 110.0 ml Blood Product 500 ml Other 3000 ml Output Urine Total 275 ml 215 ml Other 3400 ml # Bowel Movements 3 Labs Test 11/27/18 03:53 11/27/18 18:25 11/28/18 01:27 11/28/18 04:30 White Blood Count 20.7 K/UL (4.8-10.8) 22.2 K/UL (4.8-10.8) 28.4 K/UL (4.8-10.8) 29.2 K/UL (4.8-10.8) Red Blood Count 2.21 M/UL (4.70-6.10) 1.94 M/UL (4.70-6.10) 3.03 M/UL (4.70-6.10) 3.08 M/UL (4.70-6.10) Hemoglobin 7.2 G/DL (14.2-18.0) 6.1 G/DL (14.2-18.0) 9.7 G/DL (14.2-18.0) 9.8 G/DL (14.2-18.0) Hematocrit 21.4 % (42.0-52.0) 17.7 % (42.0-52.0) 27.8 % (42.0-52.0) 28.5 % (42.0-52.0) Mean Corpuscular Volume 97 FL (80-99) 91 FL (80-99) 92 FL (80-99) 93 FL (80- 99) Mean Corpuscular Hemoglobin 32.5 PG (27.0-31.0) 31.6 PG (27.0-31.0) 31.9 PG (27.0-31.0) 31.9 PG (27.0-31.0) Mean Corpuscular Hemoglobin Concent 33.6 G/DL (32.0-36.0) 34.7 G/DL (32.0-36.0) 34.7 G/DL (32.0-36.0) 34.4 G/DL (32.0-36.0) Red Cell Distribution Width 17.2 % (11.6-14.8) 15.9 % (11.6-14.8) 15.3 % (11.6-14.8) 15.1 % (11.6-14.8) Platelet Count 383 K/UL (150-450) 291 K/UL (150-450) 263 K/UL (150-450) 261 K/UL (150-450) Mean Platelet Volume 5.0 FL (6.5-10.1) 5.0 FL (6.5-10.1) 5.2 FL (6.5-10.1) 5.0 FL (6.5-10.1) Neutrophils (%) (Auto) % (45.0-75.0) % (45.0-75.0) % (45.0-75.0) % (45.0- 75.0) Lymphocytes (%) (Auto) % (20.0-45.0) % (20.0-45.0) % (20.0-45.0) % (20.0- 45.0) Monocytes (%) (Auto) % (1.0-10.0) % (1.0-10.0) % (1.0-10.0) % (1.0-10.0) Eosinophils (%) (Auto) % (0.0-3.0) % (0.0-3.0) % (0.0-3.0) % (0.0-3.0) Basophils (%) (Auto) % (0.0-2.0) % (0.0-2.0) % (0.0-2.0) % (0.0-2.0) Differential Total Cells Counted 100 100 100 100 Neutrophils % (Manual) 83 % (45-75) 86 % (45-75) 84 % (45-75) 91 % (45-75) Lymphocytes % (Manual) 10 % (20-45) 9 % (20-45) 10 % (20-45) 6 % (20-45) Monocytes % (Manual) 6 % (1-10) 2 % (1-10) 3 % (1-10) 2 % (1-10) Eosinophils % (Manual) 1 % (0-3) 0 % (0-3) 0 % (0-3) 0 % (0-3) Basophils % (Manual) 0 % (0-2) 0 % (0-2) 0 % (0-2) 1 % (0-2) Band Neutrophils 0 % (0-8) 2 % (0-8) 3 % (0-8) 0 % (0-8) Platelet Estimate Adequate Adequate Adequate Adequate Platelet Morphology Normal Normal Normal Normal Hypochromasia 3+ 1+ 2+ Anisocytosis 1+ 1+ 1+ Spherocytes 2+ 1+ Sodium Level 138 MMOL/L (136-145) 137 MMOL/L (136-145) 141 MMOL/L (136-145) Potassium Level 5.3 MMOL/L (3.5-5.1) 4.6 MMOL/L (3.5-5.1) 4.8 MMOL/L (3.5-5.1) Chloride Level 104 MMOL/L (98-107) 104 MMOL/L (98-107) 107 MMOL/L (98-107) Carbon Dioxide Level 26 MMOL/L (21-32) 26 MMOL/L (21-32) 23 MMOL/L (21-32) Anion Gap 8 mmol/L (5-15) 7 mmol/L (5-15) 12 mmol/L (5-15) Blood Urea Nitrogen 24 mg/dL (7-18) 35 mg/dL (7-18) 47 mg/dL (7-18) Creatinine 0.6 MG/DL (0.55-1.30) 0.6 MG/DL (0.55-1.30) 0.8 MG/DL (0.55-1.30) Estimat Glomerular Filtration Rate mL/min (>60) mL/min (>60) mL/min (>60) Glucose Level 125 MG/DL (74-106) 169 MG/DL (74-106) 158 MG/DL (74-106) Calcium Level 8.0 MG/DL (8.5-10.1) 7.5 MG/DL (8.5-10.1) 7.8 MG/DL (8.5-10.1) Myelocytes % 1 % (0-0) Polychromasia 1+ Prothrombin Time 11.4 SEC (9.30-11.50) Prothromb Time International Ratio 1.1 (0.9-1.1) Activated Partial Thromboplast Time 25 SEC (23-33) Total Bilirubin 0.4 MG/DL (0.2-1.0) 0.7 MG/DL (0.2-1.0) Aspartate Amino Transf (AST/SGOT) 21 U/L (15-37) 27 U/L (15-37) Alanine Aminotransferase (ALT/SGPT) 11 U/L (12-78) 15 U/L (12-78) Alkaline Phosphatase 69 U/L (46-116) 70 U/L (46-116) Total Protein 3.6 G/DL (6.4-8.2) 4.0 G/DL (6.4-8.2) Albumin 1.2 G/DL (3.4-5.0) 1.2 G/DL (3.4-5.0) Globulin 2.4 g/dL 2.8 g/dL Albumin/Globulin Ratio 0.5 (1.0-2.7) 0.4 (1.0-2.7) Uric Acid 2.9 MG/DL (2.6-7.2) Phosphorus Level 5.1 MG/DL (2.5-4.9) Magnesium Level 1.6 MG/DL (1.8-2.4) Test 11/28/18 09:45 11/28/18 16:50 11/28/18 18:26 11/29/18 04:30 Vancomycin Level Trough > 50.0 ug/mL (5.0-12.0) Urine Color Brown Urine Appearance Slightly cloudy Urine pH 5 (4.5-8.0) Urine Specific [place] 1.025 (1.005-1.035) Urine Protein 1+ (NEGATIVE) Urine Glucose (UA) Negative (NEGATIVE) Urine Ketones 1+ (NEGATIVE) Urine Blood 1+ (NEGATIVE) Urine Nitrite Negative (NEGATIVE) Urine Bilirubin 2+ (NEGATIVE) Urine Ictotest Negative (NEGATIVE) Urine Urobilinogen 1 MG/DL (0.0-1.0) Urine Leukocyte Esterase 1+ (NEGATIVE) Urine RBC 5-10 /HPF (0 - 0) Urine WBC 2-4 /HPF (0 - 0) Urine Squamous Epithelial Cells None /LPF (NONE/OCC) Urine Amorphous Sediment Few /LPF (NONE) Urine Bacteria Many /HPF (NONE) White Blood Count 40.3 K/UL (4.8-10.8) 27.1 K/UL (4.8-10.8) Red Blood Count 1.92 M/UL (4.70-6.10) 2.97 M/UL (4.70-6.10) Hemoglobin 6.1 G/DL (14.2-18.0) 9.3 G/DL (14.2-18.0) Hematocrit 17.6 % (42.0-52.0) 26.5 % (42.0-52.0) Mean Corpuscular Volume 91 FL (80-99) 89 FL (80-99) Mean Corpuscular Hemoglobin 32.0 PG (27.0-31.0) 31.4 PG (27.0-31.0) Mean Corpuscular Hemoglobin Concent 35.0 G/DL (32.0-36.0) 35.2 G/DL (32.0-36.0) Red Cell Distribution Width 15.0 % (11.6-14.8) 14.2 % (11.6-14.8) Platelet Count 264 K/UL (150-450) 216 K/UL (150-450) Mean Platelet Volume 5.5 FL (6.5-10.1) 5.7 FL (6.5-10.1) Neutrophils (%) (Auto) % (45.0-75.0) % (45.0-75.0) Lymphocytes (%) (Auto) % (20.0-45.0) % (20.0-45.0) Monocytes (%) (Auto) % (1.0-10.0) % (1.0-10.0) Eosinophils (%) (Auto) % (0.0-3.0) % (0.0-3.0) Basophils (%) (Auto) % (0.0-2.0) % (0.0-2.0) Differential Total Cells Counted 100 100 Neutrophils % (Manual) 89 % (45-75) 82 % (45-75) Lymphocytes % (Manual) 6 % (20-45) 10 % (20-45) Monocytes % (Manual) 3 % (1-10) 6 % (1-10) Eosinophils % (Manual) 0 % (0-3) 0 % (0-3) Basophils % (Manual) 0 % (0-2) 0 % (0-2) Band Neutrophils 2 % (0-8) 2 % (0-8) Platelet Estimate Adequate Adequate Platelet Morphology Normal Normal Hypochromasia 1+ Anisocytosis 1+ 1+ Prothrombin Time 11.6 SEC (9.30-11.50) 10.8 SEC (9.30-11.50) Prothromb Time International Ratio 1.1 (0.9-1.1) 1.0 (0.9-1.1) Activated Partial Thromboplast Time 25 SEC (23-33) 23 SEC (23-33) Sodium Level 140 MMOL/L (136-145) 145 MMOL/L (136-145) Potassium Level 4.4 MMOL/L (3.5-5.1) 4.3 MMOL/L (3.5-5.1) Chloride Level 106 MMOL/L (98-107) 110 MMOL/L (98-107) Carbon Dioxide Level 19 MMOL/L (21-32) 25 MMOL/L (21-32) Anion Gap 15 mmol/L (5-15) 10 mmol/L (5-15) Blood Urea Nitrogen 58 mg/dL (7-18) 63 mg/dL (7-18) Creatinine 1.1 MG/DL (0.55-1.30) 1.1 MG/DL (0.55-1.30) Estimat Glomerular Filtration Rate mL/min (>60) mL/min (>60) Glucose Level 211 MG/DL (74-106) 141 MG/DL (74-106) Calcium Level 7.6 MG/DL (8.5-10.1) 8.0 MG/DL (8.5-10.1) Total Bilirubin 0.4 MG/DL (0.2-1.0) 0.6 MG/DL (0.2-1.0) Aspartate Amino Transf (AST/SGOT) 22 U/L (15-37) 22 U/L (15-37) Alanine Aminotransferase (ALT/SGPT) 14 U/L (12-78) 13 U/L (12-78) Alkaline Phosphatase 65 U/L (46-116) 68 U/L (46-116) Total Protein 3.4 G/DL (6.4-8.2) 4.1 G/DL (6.4-8.2) Albumin 1.0 G/DL (3.4-5.0) 1.2 G/DL (3.4-5.0) Globulin 2.4 g/dL 2.9 g/dL Albumin/Globulin Ratio 0.4 (1.0-2.7) 0.4 (1.0-2.7) Nucleated Red Blood Cells 1 /100 WBC Polychromasia 3+ Uric Acid 5.6 MG/DL (2.6-7.2) Phosphorus Level 5.4 MG/DL (2.5-4.9) Magnesium Level 2.0 MG/DL (1.8-2.4) Random Vancomycin Level 27.7 ug/mL Test 11/29/18 18:10 White Blood Count 16.0 K/UL (4.8-10.8) Red Blood Count 2.26 M/UL (4.70-6.10) Hemoglobin 7.3 G/DL (14.2-18.0) Hematocrit 20.1 % (42.0-52.0) Mean Corpuscular Volume 89 FL (80-99) Mean Corpuscular Hemoglobin 32.3 PG (27.0-31.0) Mean Corpuscular Hemoglobin Concent 36.5 G/DL (32.0-36.0) Red Cell Distribution Width 13.8 % (11.6-14.8) Platelet Count 181 K/UL (150-450) Mean Platelet Volume 5.9 FL (6.5-10.1) Neutrophils (%) (Auto) 85.6 % (45.0-75.0) Lymphocytes (%) (Auto) 8.0 % (20.0-45.0) Monocytes (%) (Auto) 5.7 % (1.0-10.0) Eosinophils (%) (Auto) 0.2 % (0.0-3.0) Basophils (%) (Auto) 0.5 % (0.0-2.0) Height (Feet): 5 Height (Inches): 7.00 Weight (Pounds): 130 Objective General Appearance: WD/WN Lines, tubes and drains: central line HEENT: normocephalic, atraumatic, 02/NC Neck: non-tender, normal alignment Breasts: no masses Cardiovascular/Chest: normal peripheral pulses, normal rate, regular rhythm Abdomen: normal bowel sounds, non tender ++ peg Genitourinary/Rectal: normal genital exam, heme negative stool Extremities: normal range of motion, ++Edema RUE > L UE Skin Exam: normal pigmentation 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
--- NOTE | 2018-11-29 21:20 | NUR ---
NURSE NOTES: STARTED 1 UNIT PRBC ([id number]) AFTER 2 NURSES VERIFY, WILL CONTINUE TO MONITOR.
--- NOTE | 2018-11-29 21:35 | NUR ---
NURSE NOTES: NO SIDE REACTION NOTED AT THIS TIME.
--- NOTE | 2018-11-29 23:15 | NUR ---
NURSE NOTES: PATIENT ASLEEP STATUS, NO SOB NOTED ON FIO2 45% VENTURI MASK, O2 SATURATION 100% NOTED.
[2018-11-30] VITALS (24 sets, daily range): BP systolic 91–129; BP diastolic 50–76
--- NOTE | 2018-11-30 00:21 | NUR ---
NURSE NOTES: FINISHED BLOOD TRANSFUSION, NO SIDE REACTION NOTED, WILL CONTINUE TO MONITOR.
--- NOTE | 2018-11-30 02:30 | NUR ---
NURSE NOTES: ASLEEP STATUS, NO PAIN OR DISTRESS NOTED AT THIS TIME.
--- NOTE | 2018-11-30 04:00 | NUR ---
NURSE NOTES: MORNING CARE WAS DONE, SOFT DARK GREENISH BROWN COLOR STOOL OUTED.
[2018-11-30] MEDS: D5NS 1,000 ML IV SCH ×2 (04:36→17:39)
[2018-11-30 06:01] LABS: BASOPHILS % (AUTO) 0.3 % (0.0-2.0); EOSINOPHILS % (AUTO) 0.3 % (0.0-3.0); HEMATOCRIT 25.1 % (42.0-52.0); HEMOGLOBIN 8.8 G/DL (14.2-18.0); LYMPHOCYTES % (AUTO) 12.4 % (20.0-45.0); MEAN CORPUSCULAR VOLUME 91 FL (80-99); MONOCYTES % (AUTO) 6.5 % (1.0-10.0); NEUTROPHILS % (AUTO) 80.5 % (45.0-75.0); PLATELET COUNT 156 K/UL (150-450); RED BLOOD COUNT 2.77 M/UL (4.70-6.10); RED CELL DISTRIBUTION WIDTH 14.4 % (11.6-14.8); WHITE BLOOD COUNT 9.8 K/UL (4.8-10.8)
--- NOTE | 2018-11-30 06:10 | NUR ---
NURSE NOTES: VSS STABLED, ON FIO2 45% VENTURI MASK, O2 SATURATION 1005 NOTED, NO ACUTE DISTRESS NOTED AT THIS SHIFT.
[2018-11-30 06:39] LABS: ALANINE AMINOTRANSFERASE < 6 U/L (12-78); ALBUMIN 1.2 G/DL (3.4-5.0); ALBUMIN/GLOBULIN RATIO 0.4 (1.0-2.7); ALKALINE PHOSPHATASE 62 U/L (46-116); ANION GAP 9 mmol/L (5-15); ASPARTATE AMINO TRANSFERASE 18 U/L (15-37); BILIRUBIN,TOTAL 0.4 MG/DL (0.2-1.0); BLOOD UREA NITROGEN 50 mg/dL (7-18); CALCIUM 7.7 MG/DL (8.5-10.1); CARBON DIOXIDE 26 MMOL/L (21-32); CHLORIDE 112 MMOL/L (98-107); CREATININE 0.8 MG/DL (0.55-1.30); POTASSIUM 3.5 MMOL/L (3.5-5.1); SODIUM 146 MMOL/L (136-145)
--- NOTE | 2018-11-30 06:55 | NUR ---
NURSE NOTES: SEEN THE PATIENT BY DE. GOMEZ, MADE NEW ORDER.
--- NOTE | 2018-11-30 06:58 | Pulmonolgy Critical Care Note ---
Critical Care - Asmt/Plan Problems: (1) Lower GI bleed (2) Hemorrhagic shocks (3) Acute DVT (deep venous thrombosis) (4) COPD (chronic obstructive pulmonary disease) (5) S/P insertion of IVC (inferior vena caval) filter (6) Severe protein-calorie malnutrition (7) Seizures (8) Feeding by G-tube (9) Parkinson disease (10) Alzheimer's dementia (11) C. 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 - Objective Last 24 Hour Vital Signs Date Time Temp Pulse Resp B/P (MAP) Pulse Ox O2 Delivery O2 Flow Rate FiO2 11/30/18 06:00 87 16 111/65 (80) 100 11/30/18 05:00 86 14 115/71 (86) 100 11/30/18 04:00 Venturi Mask 10.0 11/30/18 04:00 97.5 88 18 105/61 (76) 99 11/30/18 03:05 82 11/30/18 03:00 94 20 127/76 (93) 100 11/30/18 02:00 83 15 113/65 (81) 98 11/30/18 01:00 80 13 113/74 (87) 100 11/30/18 00:00 97.5 80 13 113/71 (85) 100 11/30/18 00:00 Venturi Mask 10.0 11/29/18 23:40 85 11/29/18 23:13 99 Venturi Mask 10.0 45 11/29/18 23:00 83 14 125/58 (80) 99 11/29/18 22:00 85 18 123/73 (90) 100 11/29/18 21:00 83 14 101/61 (74) 100 11/29/18 20:00 97.7 89 14 119/61 (80) 100 11/29/18 20:00 Venturi Mask 14.0 11/29/18 19:28 87 11/29/18 19:00 85 15 98/60 (73) 99 7/6/19 18:54 87 18 99 Venturi Mask 14.0 55 11/29/18 18:54 99 Venturi Mask 14.0 55 11/29/18 18:00 90 13 120/66 (84) 98 11/29/18 17:00 96 16 114/67 (83) 90 11/29/18 16:30 97 16 125/70 (88) 94 11/29/18 16:00 98.2 97 17 141/74 (96) 100 11/29/18 16:00 Venturi Mask 14.0 11/29/18 16:00 86 11/29/18 15:00 87 19 101/61 (74) 97 11/29/18 14:30 90 12 132/67 (88) 100 11/29/18 14:00 90 14 114/65 (81) 99 11/29/18 13:00 93 14 122/69 (86) 100 11/29/18 12:00 91 11/29/18 12:00 98.6 94 25 112/68 (83) 100 11/29/18 12:00 Venturi Mask 14.0 11/29/18 11:00 96 14 120/71 (87) 100 11/29/18 10:00 107 22 145/74 (97) 97 11/29/18 09:30 102 18 135/75 (95) 94 11/29/18 09:15 103 19 135/68 (90) 96 11/29/18 09:00 102 22 139/77 (97) 100 11/29/18 08:45 100 16 138/77 (97) 100 11/29/18 08:30 101 16 133/80 (97) 100 11/29/18 08:15 100 15 125/74 (91) 100 11/29/18 08:00 98.5 101 17 121/69 (86) 100 11/29/18 08:00 Venturi Mask 14.0 11/29/18 08:00 101 11/29/18 07:43 101 22 100 11/29/18 07:00 100 21 122/64 (83) 99 Status: awake Condition: critical HEENT: atraumatic Neck: full ROM Lungs: clear Heart: HR/BP stable, regular Abdomen: non-tender, active bowel sounds Extremities: no C/C/E Decubiti: location Micro: Microbiology Date/Time Source Procedure Growth Status 11/28/18 12:50 Blood Blood Culture - Preliminary NO GROWTH AFTER 24 HOURS Resulted 11/28/18 12:40 Blood Blood Culture - Preliminary NO GROWTH AFTER 24 HOURS Resulted 11/28/18 16:50 Stool Clostridium difficile Toxin Assay - Final Complete 11/28/18 16:50 Urine,Clean Catch Urine Culture - Final NO GROWTH AFTER 48 HOURS Complete Critical Care - Subjective ROS Limited/Unobtainable: Yes Interval Events: received one unit of PRBC last night. Colonoscopy done yesterday, showed blood clots, no active bleeding Condition: critical EKG Rhythm: Sinus Rhythm FI02: 45 Sputum Amount: None Fluids: d5 NS 75 cc/hour Tube Feeding Amount: 55 I&O: Intake and Output 11/29/18 11/30/18 19:00 07:00 Intake Total 385.0 ml 1305 ml Output Total 410 ml 675 ml Balance -25.0 ml 630 ml IV Total 385.0 ml 1025 ml Blood Product 250 ml Other 30 ml Output Urine Total 410 ml 675 ml # Bowel Movements 4 2 Labs: Laboratory Tests Test 11/29/18 18:10 11/30/18 05:00 White Blood Count 16.0 K/UL (4.8-10.8) H 9.8 K/UL (4.8-10.8) Red Blood Count 2.26 M/UL (4.70-6.10) L 2.77 M/UL (4.70-6.10) L Hemoglobin 7.3 G/DL (14.2-18.0) L 8.8 G/DL (14.2-18.0) L Hematocrit 20.1 % (42.0-52.0) L 25.1 % (42.0-52.0) L Mean Corpuscular Volume 89 FL (80-99) 91 FL (80-99) Mean Corpuscular Hemoglobin 32.3 PG (27.0-31.0) H 31.6 PG (27.0-31.0) H Mean Corpuscular Hemoglobin Concent 36.5 G/DL (32.0-36.0) H 34.9 G/DL (32.0-36.0) Red Cell Distribution Width 13.8 % (11.6-14.8) 14.4 % (11.6-14.8) Platelet Count 181 K/UL (150-450) 156 K/UL (150-450) Mean Platelet Volume 5.9 FL (6.5-10.1) L 5.5 FL (6.5-10.1) L Neutrophils (%) (Auto) 85.6 % (45.0-75.0) H 80.5 % (45.0-75.0) H Lymphocytes (%) (Auto) 8.0 % (20.0-45.0) L 12.4 % (20.0-45.0) L Monocytes (%) (Auto) 5.7 % (1.0-10.0) 6.5 % (1.0-10.0) Eosinophils (%) (Auto) 0.2 % (0.0-3.0) 0.3 % (0.0-3.0) Basophils (%) (Auto) 0.5 % (0.0-2.0) 0.3 % (0.0-2.0) Sodium Level 146 MMOL/L (136-145) H Potassium Level 3.5 MMOL/L (3.5-5.1) Chloride Level 112 MMOL/L (98-107) H Carbon Dioxide Level 26 MMOL/L (21-32) Anion Gap 9 mmol/L (5-15) Blood Urea Nitrogen 50 mg/dL (7-18) H Creatinine 0.8 MG/DL (0.55-1.30) Estimat Glomerular Filtration Rate mL/min (>60) Glucose Level 124 MG/DL (74-106) H Calcium Level 7.7 MG/DL (8.5-10.1) L Total Bilirubin 0.4 MG/DL (0.2-1.0) Aspartate Amino Transf (AST/SGOT) 18 U/L (15-37) Alanine Aminotransferase (ALT/SGPT) < 6 U/L (12-78) L Alkaline Phosphatase 62 U/L (46-116) Pro-B-Type Natriuretic Peptide 485 pg/mL (0-125) H Total Protein 4.0 G/DL (6.4-8.2) L Albumin 1.2 G/DL (3.4-5.0) L Globulin 2.8 g/dL Albumin/Globulin Ratio 0.4 (1.0-2.7) L Random Vancomycin Level 21.3 ug/mL David Carrasquillo MD Nov 30, 2018 06:58
--- NOTE | 2018-11-30 07:10 | NUR ---
NURSE NOTES: Received pt from MONA Killian. patient is awake but unable to follow commands. Makes good eye contact and tracks eyes. Patient on 3LNC, Spo2 100%. Course rhonchi, bilateral b/s. weak cough noted, congestion heard. Deep sxn provided, thick yellow secretions. SR with PAC's on monitoring tech. PEG tube clamped and pt kept NPO. FC draining well to gravity. Patient has x2 IV sites on left upper chest 24G and 22G running D5NS@75ml/hr. Patient has EMETERIO and LLE chronic DVT's and BAIRON and RLE acute DVT's. MD's are aware. Patient has an IVC filter. Dressing on sacral, bilateral heel, BAIRON skin tear and Right tibial clean and intact. Seizure precautions in place. Bed locked, alarmed and in lowest position. Will continue plan of care.
--- NOTE | 2018-11-30 07:22 | NUR ---
HAND-OFF: Report given to Raphael PEREZ RN.
[2018-11-30] MEDS: Levodopa/Carbidopa 25/100 tab GT SCH ×3 (08:25→17:38)
[2018-11-30] MEDS: Vancomycin oral 125mg/2.5ml ORAL SCH ×4 (08:25→21:03)
[2018-11-30] MEDS: Lactobacillus-GG tablet ORAL SCH ×3 (08:25→17:38)
[2018-11-30] MEDS ORDERED: Pantoprazole Inj IVP SCH (09:00)
--- NOTE | 2018-11-30 09:02 | Diagnostic Imaging Report ---
EXAM: XR Chest, 1 View CLINICAL HISTORY: DYSPNEA TECHNIQUE: Frontal view of the chest. COMPARISON: Chest x-ray dated 11/28/17 FINDINGS: Lungs: No significant change in bibasilar infiltrates. Pleural space: Unremarkable. The costophrenic angles are sharp. No visible pneumothorax. Heart: Unremarkable. No cardiomegaly. Mediastinum: Unremarkable. Bones/joints: Unremarkable. Tubes, lines and devices: Telemetry leads overlie the thorax. IMPRESSION: No significant change in bibasilar infiltrates.
--- NOTE | 2018-11-30 09:30 | NUR ---
NURSE NOTES: Turned and repositioned. Patient asleep, no signs of distress. VSS. SR with occasional PAC's. IVF infusing well.
[2018-11-30 09:57] LABS: PHOSPHORUS 3.8 MG/DL (2.5-4.9)
--- NOTE | 2018-11-30 10:42 | General Progress Note ---
Assessment/Plan Problem List: (1) Seizures ICD Codes: R56.9 - Unspecified convulsions SNOMED: 46219244 (2) Parkinson disease ICD Codes: G20 - Parkinson's disease SNOMED: 52626662 (3) Alzheimer's dementia ICD Codes: G30.9 - Alzheimer's disease, unspecified; F02.80 - Dementia in other diseases classified elsewhere without behavioral disturbance SNOMED: 80571680 (4) COPD (chronic obstructive pulmonary disease) ICD Codes: J44.9 - Chronic obstructive pulmonary disease, unspecified SNOMED: 04990025 (5) Feeding by G-tube ICD Codes: Z93.1 - Gastrostomy status SNOMED: 480019723, 358314396, 267514920 (6) Anemia, chronic disease ICD Codes: D63.8 - Anemia in other chronic diseases classified elsewhere SNOMED: 443504408, 681830901 Status: unchanged Assessment/Plan: no recurrent bleed start GTF monitor closely Subjective ROS Limited/Unobtainable: No Allergies: Coded Allergies: No Known Allergies (Unverified , 11/18/18) Objective Last 24 Hour Vital Signs Date Time Temp Pulse Resp B/P (MAP) Pulse Ox O2 Delivery O2 Flow Rate FiO2 11/30/18 08:00 82 11/30/18 08:00 Nasal Cannula 3.0 11/30/18 07:17 80 15 98 Nasal Cannula 3.0 32 11/30/18 07:15 100 Venturi Mask 10.0 45 11/30/18 07:00 82 14 103/66 (78) 100 11/30/18 06:00 87 16 111/65 (80) 100 11/30/18 05:00 86 14 115/71 (86) 100 11/30/18 04:00 Venturi Mask 10.0 11/30/18 04:00 97.5 88 18 105/61 (76) 99 11/30/18 03:05 82 11/30/18 03:00 94 20 127/76 (93) 100 11/30/18 02:00 83 15 113/65 (81) 98 11/30/18 01:00 80 13 113/74 (87) 100 11/30/18 00:00 97.5 80 13 113/71 (85) 100 11/30/18 00:00 Venturi Mask 10.0 7/6/19 23:40 85 11/29/18 23:13 99 Venturi Mask 10.0 45 11/29/18 23:00 83 14 125/58 (80) 99 11/29/18 22:00 85 18 123/73 (90) 100 11/29/18 21:00 83 14 101/61 (74) 100 11/29/18 20:00 97.7 89 14 119/61 (80) 100 11/29/18 20:00 Venturi Mask 14.0 11/29/18 19:28 87 11/29/18 19:00 85 15 98/60 (73) 99 11/29/18 18:54 87 18 99 Venturi Mask 14.0 55 11/29/18 18:54 99 Venturi Mask 14.0 55 11/29/18 18:00 90 13 120/66 (84) 98 11/29/18 17:00 96 16 114/67 (83) 90 11/29/18 16:30 97 16 125/70 (88) 94 11/29/18 16:00 98.2 97 17 141/74 (96) 100 11/29/18 16:00 Venturi Mask 14.0 11/29/18 16:00 86 11/29/18 15:00 87 19 101/61 (74) 97 11/29/18 14:30 90 12 132/67 (88) 100 11/29/18 14:00 90 14 114/65 (81) 99 11/29/18 13:00 93 14 122/69 (86) 100 11/29/18 12:00 91 11/29/18 12:00 98.6 94 25 112/68 (83) 100 11/29/18 12:00 Venturi Mask 14.0 11/29/18 11:00 96 14 120/71 (87) 100 Intake and Output 11/29/18 11/30/18 19:00 07:00 Intake Total 385.0 ml 1380 ml Output Total 410 ml 725 ml Balance -25.0 ml 655 ml IV Total 385.0 ml 1100 ml Blood Product 250 ml Other 30 ml Output Urine Total 410 ml 725 ml # Bowel Movements 4 2 Laboratory Tests 11/29/18 18:10: White Blood Count 16.0H, Red Blood Count 2.26L, Hemoglobin 7.3L, Hematocrit 20.1L, Mean Corpuscular Volume 89, Mean Corpuscular Hemoglobin 32.3H, Mean Corpuscular Hemoglobin Concent 36.5H, Red Cell Distribution Width 13.8, Platelet Count 181, Mean Platelet Volume 5.9L, Neutrophils (%) (Auto) 85.6H, Lymphocytes (%) (Auto) 8.0L, Monocytes (%) (Auto) 5.7, Eosinophils (%) (Auto) 0.2, Basophils (%) (Auto) 0.5 11/30/18 05:00: White Blood Count 9.8, Red Blood Count 2.77L, Hemoglobin 8.8L, Hematocrit 25.1L , Mean Corpuscular Volume 91, Mean Corpuscular Hemoglobin 31.6H, Mean Corpuscular Hemoglobin Concent 34.9, Red Cell Distribution Width 14.4, Platelet Count 156, Mean Platelet Volume 5.5L, Neutrophils (%) (Auto) 80.5H, Lymphocytes (%) (Auto) 12.4L, Monocytes (%) (Auto) 6.5, Eosinophils (%) (Auto) 0.3, Basophils (%) (Auto) 0.3, Sodium Level 146H, Potassium Level 3.5, Chloride Level 112H, Carbon Dioxide Level 26, Anion Gap 9, Blood Urea Nitrogen 50H, Creatinine 0.8, Estimat Glomerular Filtration Rate , Glucose Level 124H, Calcium Level 7.7L, Phosphorus Level 3.8, Magnesium Level 2.1, Total Bilirubin 0.4, Aspartate Amino Transf (AST/SGOT) 18, Alanine Aminotransferase (ALT/SGPT) < 6L, Alkaline Phosphatase 62, Pro-B-Type Natriuretic Peptide 485H, Total Protein 4.0L, Albumin 1.2L, Globulin 2.8, Albumin/Globulin Ratio 0.4L, Random Vancomycin Level 21.3 Height (Feet): 5 Height (Inches): 7.00 Weight (Pounds): 129 General Appearance: lethargic EENT: normal ENT inspection Neck: supple Cardiovascular: normal rate Respiratory/Chest: decreased breath sounds Abdomen: normal bowel sounds, non tender, soft Extremities: non-tender Deacon Dallas MD Nov 30, 2018 10:42
--- NOTE | 2018-11-30 11:00 | NUR ---
NURSE NOTES: TF started per Dr. Dallas. Glucerna 1.2 started at 25ml/hr, goal is 55ml/hr. HOB 35 degrees, no residual noted. Flushed with free water and placement confirmed by auscultation.
--- NOTE | 2018-11-30 12:04 | Nephrology Progress Note ---
Assessment/Plan Problem List: (1) Hyponatremia Assessment: Na higher (2) UTI (urinary tract infection) (3) Anemia, chronic disease (4) Alzheimer's dementia (5) Parkinson disease (6) C. difficile colitis Assessment Low Na corrected GI bleed transfused other conditions Pneumonia UTI, has grewal bacteremia sacral decub dementia HTN Sz disorder Parkinsons severe Anemia Plan Albumin bolus and transfusion for low BP as needed stop HypoTonic IV solution start maintenence IV fluid Urine studies Transfusion as needed Per orders roberto carlos khalil Subjective ROS Limited/Unobtainable: No Objective Objective Last 24 Hour Vital Signs Date Time Temp Pulse Resp B/P (MAP) Pulse Ox O2 Delivery O2 Flow Rate FiO2 11/30/18 11:00 81 13 107/63 (78) 100 11/30/18 10:00 76 14 91/56 (68) 100 11/30/18 09:00 79 14 93/52 (66) 100 11/30/18 08:00 82 11/30/18 08:00 Nasal Cannula 3.0 11/30/18 08:00 98.6 90 14 119/67 (84) 100 11/30/18 07:17 80 15 98 Nasal Cannula 3.0 32 11/30/18 07:15 100 Venturi Mask 10.0 45 11/30/18 07:00 82 14 103/66 (78) 100 11/30/18 06:00 87 16 111/65 (80) 100 11/30/18 05:00 86 14 115/71 (86) 100 11/30/18 04:00 Venturi Mask 10.0 11/30/18 04:00 97.5 88 18 105/61 (76) 99 11/30/18 03:05 82 11/30/18 03:00 94 20 127/76 (93) 100 11/30/18 02:00 83 15 113/65 (81) 98 11/30/18 01:00 80 13 113/74 (87) 100 11/30/18 00:00 97.5 80 13 113/71 (85) 100 11/30/18 00:00 Venturi Mask 10.0 11/29/18 23:40 85 11/29/18 23:13 99 Venturi Mask 10.0 45 11/29/18 23:00 83 14 125/58 (80) 99 11/29/18 22:00 85 18 123/73 (90) 100 11/29/18 21:00 83 14 101/61 (74) 100 11/29/18 20:00 97.7 89 14 119/61 (80) 100 11/29/18 20:00 Venturi Mask 14.0 11/29/18 19:28 87 11/29/18 19:00 85 15 98/60 (73) 99 11/29/18 18:54 87 18 99 Venturi Mask 14.0 55 11/29/18 18:54 99 Venturi Mask 14.0 55 11/29/18 18:00 90 13 120/66 (84) 98 11/29/18 17:00 96 16 114/67 (83) 90 11/29/18 16:30 97 16 125/70 (88) 94 11/29/18 16:00 98.2 97 17 141/74 (96) 100 11/29/18 16:00 Venturi Mask 14.0 11/29/18 16:00 86 11/29/18 15:00 87 19 101/61 (74) 97 11/29/18 14:30 90 12 132/67 (88) 100 11/29/18 14:00 90 14 114/65 (81) 99 11/29/18 13:00 93 14 122/69 (86) 100 Intake and Output 11/29/18 11/30/18 18:59 06:59 Intake Total 310.0 ml 1380 ml Output Total 410 ml 705 ml Balance -100.0 ml 675 ml IV Total 310.0 ml 1100 ml Blood Product 250 ml Other 30 ml Output Urine Total 410 ml 705 ml # Bowel Movements 4 2 Laboratory Tests 11/29/18 18:10: White Blood Count 16.0H, Red Blood Count 2.26L, Hemoglobin 7.3L, Hematocrit 20.1L, Mean Corpuscular Volume 89, Mean Corpuscular Hemoglobin 32.3H, Mean Corpuscular Hemoglobin Concent 36.5H, Red Cell Distribution Width 13.8, Platelet Count 181, Mean Platelet Volume 5.9L, Neutrophils (%) (Auto) 85.6H, Lymphocytes (%) (Auto) 8.0L, Monocytes (%) (Auto) 5.7, Eosinophils (%) (Auto) 0.2, Basophils (%) (Auto) 0.5 11/30/18 05:00: White Blood Count 9.8, Red Blood Count 2.77L, Hemoglobin 8.8L, Hematocrit 25.1L , Mean Corpuscular Volume 91, Mean Corpuscular Hemoglobin 31.6H, Mean Corpuscular Hemoglobin Concent 34.9, Red Cell Distribution Width 14.4, Platelet Count 156, Mean Platelet Volume 5.5L, Neutrophils (%) (Auto) 80.5H, Lymphocytes (%) (Auto) 12.4L, Monocytes (%) (Auto) 6.5, Eosinophils (%) (Auto) 0.3, Basophils (%) (Auto) 0.3, Sodium Level 146H, Potassium Level 3.5, Chloride Level 112H, Carbon Dioxide Level 26, Anion Gap 9, Blood Urea Nitrogen 50H, Creatinine 0.8, Estimat Glomerular Filtration Rate , Glucose Level 124H, Calcium Level 7.7L, Phosphorus Level 3.8, Magnesium Level 2.1, Total Bilirubin 0.4, Aspartate Amino Transf (AST/SGOT) 18, Alanine Aminotransferase (ALT/SGPT) < 6L, Alkaline Phosphatase 62, Pro-B-Type Natriuretic Peptide 485H, Total Protein 4.0L, Albumin 1.2L, Globulin 2.8, Albumin/Globulin Ratio 0.4L, Random Vancomycin Level 21.3 Height (Feet): 5 Height (Inches): 7.00 Weight (Pounds): 129 General Appearance: no apparent distress Objective no change Kendall Trinidad MD Nov 30, 2018 12:04
[2018-11-30] MEDS ORDERED: Sterile Water Irrig 1000ml IRRIG ONE ×2 (13:27→13:31)
[2018-11-30] MEDS ORDERED: NS 275ml ONE ×2 (13:27→13:31)
--- NOTE | 2018-11-30 13:30 | NUR ---
NURSE NOTES: Oxygen saturation 100% on 3LNS. Breathing even and unlabored. Turned and repositioned.
[2018-11-30] MEDS ORDERED: D5NS 1000ml IV ONE (13:31)
[2018-11-30] MEDS ORDERED: Tubing Blood Filter IV ONE (13:31)
--- NOTE | 2018-11-30 13:39 | General Progress Note ---
Assessment/Plan Problem List: (1) Hyponatremia ICD Codes: E87.1 - Hypo-osmolality and hyponatremia SNOMED: 85787432 (2) Acute DVT (deep venous thrombosis) ICD Codes: I82.409 - Acute embolism and thrombosis of unspecified deep veins of unspecified lower extremity SNOMED: 080892384094594 (3) Decubitus skin ulcer ICD Codes: L89.90 - Pressure ulcer of unspecified site, unspecified stage SNOMED: 361606584 (4) Severe protein-calorie malnutrition ICD Codes: E43 - Unspecified severe protein-calorie malnutrition SNOMED: 709433431, 722571303, 898431093 (5) C. difficile colitis ICD Codes: A04.72 - Enterocolitis due to Clostridium difficile, not specified as recurrent SNOMED: 738997518 (6) Lower GI bleed ICD Codes: K92.2 - Gastrointestinal hemorrhage, unspecified SNOMED: 03349327 (7) UTI (urinary tract infection) ICD Codes: N39.0 - Urinary tract infection, site not specified SNOMED: 66518439, 141080060 Qualifiers: Qualified Codes: N30.00 - Acute cystitis without hematuria (8) HCAP (healthcare-associated pneumonia) ICD Codes: J18.9 - Pneumonia, unspecified organism SNOMED: 258785745, 307581121 (9) Anemia, chronic disease ICD Codes: D63.8 - Anemia in other chronic diseases classified elsewhere SNOMED: 496293030, 544245803 (10) Sepsis ICD Codes: A41.9 - Sepsis, unspecified organism SNOMED: 67008122, 849468905 Qualifiers: Qualified Codes: A41.9 - Sepsis, unspecified organism (11) COPD (chronic obstructive pulmonary disease) ICD Codes: J44.9 - Chronic obstructive pulmonary disease, unspecified SNOMED: 24643964 (12) Parkinson disease ICD Codes: G20 - Parkinson's disease SNOMED: 15797687 (13) Seizures ICD Codes: R56.9 - Unspecified convulsions SNOMED: 14529276 Status: unchanged Assessment/Plan: resp insuf sepsis anemia lyte abnormality copd no wheezing not hypoxic reviewed chart and labs and meds Subjective ROS Limited/Unobtainable: Yes Allergies: Coded Allergies: No Known Allergies (Unverified , 11/18/18) Objective Last 24 Hour Vital Signs Date Time Temp Pulse Resp B/P (MAP) Pulse Ox O2 Delivery O2 Flow Rate FiO2 11/30/18 12:00 Nasal Cannula 3.0 11/30/18 11:00 81 13 107/63 (78) 100 11/30/18 10:00 76 14 91/56 (68) 100 11/30/18 09:00 79 14 93/52 (66) 100 11/30/18 08:00 82 11/30/18 08:00 Nasal Cannula 3.0 11/30/18 08:00 98.6 90 14 119/67 (84) 100 11/30/18 07:17 80 15 98 Nasal Cannula 3.0 32 11/30/18 07:15 100 Venturi Mask 10.0 45 11/30/18 07:00 82 14 103/66 (78) 100 11/30/18 06:00 87 16 111/65 (80) 100 11/30/18 05:00 86 14 115/71 (86) 100 11/30/18 04:00 Venturi Mask 10.0 11/30/18 04:00 97.5 88 18 105/61 (76) 99 11/30/18 03:05 82 11/30/18 03:00 94 20 127/76 (93) 100 11/30/18 02:00 83 15 113/65 (81) 98 11/30/18 01:00 80 13 113/74 (87) 100 11/30/18 00:00 97.5 80 13 113/71 (85) 100 11/30/18 00:00 Venturi Mask 10.0 11/29/18 23:40 85 11/29/18 23:13 99 Venturi Mask 10.0 45 11/29/18 23:00 83 14 125/58 (80) 99 11/29/18 22:00 85 18 123/73 (90) 100 11/29/18 21:00 83 14 101/61 (74) 100 11/29/18 20:00 97.7 89 14 119/61 (80) 100 11/29/18 20:00 Venturi Mask 14.0 11/29/18 19:28 87 11/29/18 19:00 85 15 98/60 (73) 99 11/29/18 18:54 87 18 99 Venturi Mask 14.0 55 11/29/18 18:54 99 Venturi Mask 14.0 55 11/29/18 18:00 90 13 120/66 (84) 98 11/29/18 17:00 96 16 114/67 (83) 90 11/29/18 16:30 97 16 125/70 (88) 94 11/29/18 16:00 98.2 97 17 141/74 (96) 100 11/29/18 16:00 Venturi Mask 14.0 11/29/18 16:00 86 11/29/18 15:00 87 19 101/61 (74) 97 11/29/18 14:30 90 12 132/67 (88) 100 11/29/18 14:00 90 14 114/65 (81) 99 Intake and Output 11/29/18 11/30/18 18:59 06:59 Intake Total 310.0 ml 1380 ml Output Total 410 ml 705 ml Balance -100.0 ml 675 ml IV Total 310.0 ml 1100 ml Blood Product 250 ml Other 30 ml Output Urine Total 410 ml 705 ml # Bowel Movements 4 2 Laboratory Tests 11/29/18 18:10: White Blood Count 16.0H, Red Blood Count 2.26L, Hemoglobin 7.3L, Hematocrit 20.1L, Mean Corpuscular Volume 89, Mean Corpuscular Hemoglobin 32.3H, Mean Corpuscular Hemoglobin Concent 36.5H, Red Cell Distribution Width 13.8, Platelet Count 181, Mean Platelet Volume 5.9L, Neutrophils (%) (Auto) 85.6H, Lymphocytes (%) (Auto) 8.0L, Monocytes (%) (Auto) 5.7, Eosinophils (%) (Auto) 0.2, Basophils (%) (Auto) 0.5 11/30/18 05:00: White Blood Count 9.8, Red Blood Count 2.77L, Hemoglobin 8.8L, Hematocrit 25.1L , Mean Corpuscular Volume 91, Mean Corpuscular Hemoglobin 31.6H, Mean Corpuscular Hemoglobin Concent 34.9, Red Cell Distribution Width 14.4, Platelet Count 156, Mean Platelet Volume 5.5L, Neutrophils (%) (Auto) 80.5H, Lymphocytes (%) (Auto) 12.4L, Monocytes (%) (Auto) 6.5, Eosinophils (%) (Auto) 0.3, Basophils (%) (Auto) 0.3, Sodium Level 146H, Potassium Level 3.5, Chloride Level 112H, Carbon Dioxide Level 26, Anion Gap 9, Blood Urea Nitrogen 50H, Creatinine 0.8, Estimat Glomerular Filtration Rate , Glucose Level 124H, Calcium Level 7.7L, Phosphorus Level 3.8, Magnesium Level 2.1, Total Bilirubin 0.4, Aspartate Amino Transf (AST/SGOT) 18, Alanine Aminotransferase (ALT/SGPT) < 6L, Alkaline Phosphatase 62, Pro-B-Type Natriuretic Peptide 485H, Total Protein 4.0L, Albumin 1.2L, Globulin 2.8, Albumin/Globulin Ratio 0.4L, Random Vancomycin Level 21.3 Height (Feet): 5 Height (Inches): 7.00 Weight (Pounds): 129 Cardiovascular: normal rate Respiratory/Chest: lungs clear Abdomen: soft Yohana Garay MD Nov 30, 2018 13:39
--- NOTE | 2018-11-30 14:06 | Cardiac Electrophysiology PN ---
Assessment/Plan Assessment/Plan 1. Sinus tach due to anemia and sepsis and beta danya withdrawal ( was on Metoprolol 12.5 bid at [facility]) 2. Hypertension. Echo EF 55% 3. Acute right leg DVT and Bilateral UE DVT. S/P IVC filter . Off Eliquis for severe anemia 4. Staph aureous bacteremia. On Abx by Dr. Yee who recommended FLORINA and is pending consent and patient stability 5. Parkinsonism. 6. COPD. 7. UTI. 8. Severe anemia and rectal bleed.S/P Colonoscopy on 11/20/18 and 11/29/18 and transfusion No obvious source 9. Seizure disorder. 10. S/P PEG DW RN Subjective Subjective In sinus tach. In ICU for recurrent GI bleed and got 3 units of PRBC. Still has rectal bleed and got another unit overnight EGD cancelled for instability. S/P only colonoscopy in ICU yesterday Objective Last 24 Hour Vital Signs Date Time Temp Pulse Resp B/P (MAP) Pulse Ox O2 Delivery O2 Flow Rate FiO2 11/30/18 12:00 Nasal Cannula 3.0 11/30/18 11:00 81 13 107/63 (78) 100 11/30/18 10:00 76 14 91/56 (68) 100 11/30/18 09:00 79 14 93/52 (66) 100 11/30/18 08:00 82 11/30/18 08:00 Nasal Cannula 3.0 11/30/18 08:00 98.6 90 14 119/67 (84) 100 11/30/18 07:17 80 15 98 Nasal Cannula 3.0 32 11/30/18 07:15 100 Venturi Mask 10.0 45 11/30/18 07:00 82 14 103/66 (78) 100 11/30/18 06:00 87 16 111/65 (80) 100 11/30/18 05:00 86 14 115/71 (86) 100 11/30/18 04:00 Venturi Mask 10.0 11/30/18 04:00 97.5 88 18 105/61 (76) 99 11/30/18 03:05 82 11/30/18 03:00 94 20 127/76 (93) 100 11/30/18 02:00 83 15 113/65 (81) 98 11/30/18 01:00 80 13 113/74 (87) 100 11/30/18 00:00 97.5 80 13 113/71 (85) 100 11/30/18 00:00 Venturi Mask 10.0 11/29/18 23:40 85 11/29/18 23:13 99 Venturi Mask 10.0 45 11/29/18 23:00 83 14 125/58 (80) 99 11/29/18 22:00 85 18 123/73 (90) 100 11/29/18 21:00 83 14 101/61 (74) 100 11/29/18 20:00 97.7 89 14 119/61 (80) 100 11/29/18 20:00 Venturi Mask 14.0 11/29/18 19:28 87 11/29/18 19:00 85 15 98/60 (73) 99 11/29/18 18:54 87 18 99 Venturi Mask 14.0 55 11/29/18 18:54 99 Venturi Mask 14.0 55 11/29/18 18:00 90 13 120/66 (84) 98 11/29/18 17:00 96 16 114/67 (83) 90 11/29/18 16:30 97 16 125/70 (88) 94 11/29/18 16:00 98.2 97 17 141/74 (96) 100 11/29/18 16:00 Venturi Mask 14.0 11/29/18 16:00 86 11/29/18 15:00 87 19 101/61 (74) 97 11/29/18 14:30 90 12 132/67 (88) 100 Intake and Output 11/29/18 11/30/18 18:59 06:59 Intake Total 310.0 ml 1380 ml Output Total 410 ml 705 ml Balance -100.0 ml 675 ml IV Total 310.0 ml 1100 ml Blood Product 250 ml Other 30 ml Output Urine Total 410 ml 705 ml # Bowel Movements 4 2 Laboratory Tests Test 11/29/18 18:10 11/30/18 05:00 White Blood Count 16.0 K/UL (4.8-10.8) H 9.8 K/UL (4.8-10.8) Red Blood Count 2.26 M/UL (4.70-6.10) L 2.77 M/UL (4.70-6.10) L Hemoglobin 7.3 G/DL (14.2-18.0) L 8.8 G/DL (14.2-18.0) L Hematocrit 20.1 % (42.0-52.0) L 25.1 % (42.0-52.0) L Mean Corpuscular Volume 89 FL (80-99) 91 FL (80-99) Mean Corpuscular Hemoglobin 32.3 PG (27.0-31.0) H 31.6 PG (27.0-31.0) H Mean Corpuscular Hemoglobin Concent 36.5 G/DL (32.0-36.0) H 34.9 G/DL (32.0-36.0) Red Cell Distribution Width 13.8 % (11.6-14.8) 14.4 % (11.6-14.8) Platelet Count 181 K/UL (150-450) 156 K/UL (150-450) Mean Platelet Volume 5.9 FL (6.5-10.1) L 5.5 FL (6.5-10.1) L Neutrophils (%) (Auto) 85.6 % (45.0-75.0) H 80.5 % (45.0-75.0) H Lymphocytes (%) (Auto) 8.0 % (20.0-45.0) L 12.4 % (20.0-45.0) L Monocytes (%) (Auto) 5.7 % (1.0-10.0) 6.5 % (1.0-10.0) Eosinophils (%) (Auto) 0.2 % (0.0-3.0) 0.3 % (0.0-3.0) Basophils (%) (Auto) 0.5 % (0.0-2.0) 0.3 % (0.0-2.0) Sodium Level 146 MMOL/L (136-145) H Potassium Level 3.5 MMOL/L (3.5-5.1) Chloride Level 112 MMOL/L (98-107) H Carbon Dioxide Level 26 MMOL/L (21-32) Anion Gap 9 mmol/L (5-15) Blood Urea Nitrogen 50 mg/dL (7-18) H Creatinine 0.8 MG/DL (0.55-1.30) Estimat Glomerular Filtration Rate mL/min (>60) Glucose Level 124 MG/DL (74-106) H Calcium Level 7.7 MG/DL (8.5-10.1) L Phosphorus Level 3.8 MG/DL (2.5-4.9) Magnesium Level 2.1 MG/DL (1.8-2.4) Total Bilirubin 0.4 MG/DL (0.2-1.0) Aspartate Amino Transf (AST/SGOT) 18 U/L (15-37) Alanine Aminotransferase (ALT/SGPT) < 6 U/L (12-78) L Alkaline Phosphatase 62 U/L (46-116) Pro-B-Type Natriuretic Peptide 485 pg/mL (0-125) H Total Protein 4.0 G/DL (6.4-8.2) L Albumin 1.2 G/DL (3.4-5.0) L Globulin 2.8 g/dL Albumin/Globulin Ratio 0.4 (1.0-2.7) L Random Vancomycin Level 21.3 ug/mL Microbiology Date/Time Source Procedure Growth Status 11/28/18 12:50 Blood Blood Culture - Preliminary NO GROWTH AFTER 24 HOURS Resulted 11/28/18 12:40 Blood Blood Culture - Preliminary NO GROWTH AFTER 24 HOURS Resulted 11/28/18 16:50 Stool Clostridium difficile Toxin Assay - Final Complete 11/28/18 16:50 Urine,Clean Catch Urine Culture - Final NO GROWTH AFTER 48 HOURS Complete Objective HEAD AND NECK: No JVD. LUNGS: Decreased breath sounds. CARDIOVASCULAR: Regular S1 and S2 with no gallop . ABDOMEN: Soft. G-tube intact. EXTREMITIES: Upper extremity and LE edema. Earl Washington MD Nov 30, 2018 14:05
--- NOTE | 2018-11-30 14:26 | NUR ---
NURSE NOTES: Patient having bright and dark bloody stool with small clots again, large amt. Dr. Dallas, Dr. Eugene and Dr. Washington notified during rounds. Sacral dressing changed. 22G IV came out from left upper chest. Received orders for PICC tomorrow.
[2018-11-30] MEDS ORDERED: Lidocaine 1% Plain 30 ml INJ PRN (14:30)
--- NOTE | 2018-11-30 14:37 | Surgery Progress Note ---
Surgery Progress Note Subjective Additional Comments given prbc h/h okay this AM appreciate GI input Objective Last 24 Hour Vital Signs Date Time Temp Pulse Resp B/P (MAP) Pulse Ox O2 Delivery O2 Flow Rate FiO2 11/30/18 12:00 Nasal Cannula 3.0 11/30/18 11:00 81 13 107/63 (78) 100 11/30/18 10:00 76 14 91/56 (68) 100 11/30/18 09:00 79 14 93/52 (66) 100 11/30/18 08:00 82 11/30/18 08:00 Nasal Cannula 3.0 11/30/18 08:00 98.6 90 14 119/67 (84) 100 11/30/18 07:17 80 15 98 Nasal Cannula 3.0 32 11/30/18 07:15 100 Venturi Mask 10.0 45 11/30/18 07:00 82 14 103/66 (78) 100 11/30/18 06:00 87 16 111/65 (80) 100 11/30/18 05:00 86 14 115/71 (86) 100 11/30/18 04:00 Venturi Mask 10.0 11/30/18 04:00 97.5 88 18 105/61 (76) 99 11/30/18 03:05 82 11/30/18 03:00 94 20 127/76 (93) 100 11/30/18 02:00 83 15 113/65 (81) 98 11/30/18 01:00 80 13 113/74 (87) 100 11/30/18 00:00 97.5 80 13 113/71 (85) 100 11/30/18 00:00 Venturi Mask 10.0 11/29/18 23:40 85 11/29/18 23:13 99 Venturi Mask 10.0 45 11/29/18 23:00 83 14 125/58 (80) 99 11/29/18 22:00 85 18 123/73 (90) 100 11/29/18 21:00 83 14 101/61 (74) 100 11/29/18 20:00 97.7 89 14 119/61 (80) 100 11/29/18 20:00 Venturi Mask 14.0 11/29/18 19:28 87 11/29/18 19:00 85 15 98/60 (73) 99 11/29/18 18:54 87 18 99 Venturi Mask 14.0 55 11/29/18 18:54 99 Venturi Mask 14.0 55 11/29/18 18:00 90 13 120/66 (84) 98 11/29/18 17:00 96 16 114/67 (83) 90 11/29/18 16:30 97 16 125/70 (88) 94 11/29/18 16:00 98.2 97 17 141/74 (96) 100 11/29/18 16:00 Venturi Mask 14.0 11/29/18 16:00 86 11/29/18 15:00 87 19 101/61 (74) 97 I&O Intake and Output 11/29/18 11/30/18 18:59 06:59 Intake Total 310.0 ml 1380 ml Output Total 410 ml 705 ml Balance -100.0 ml 675 ml IV Total 310.0 ml 1100 ml Blood Product 250 ml Other 30 ml Output Urine Total 410 ml 705 ml # Bowel Movements 4 2 Cardiovascular: RSR Respiratory: clear Abdomen: soft, present bowel sounds, non-distended Extremities: no cyanosis Laboratory Tests Test 11/29/18 18:10 11/30/18 05:00 White Blood Count 16.0 K/UL (4.8-10.8) H 9.8 K/UL (4.8-10.8) Red Blood Count 2.26 M/UL (4.70-6.10) L 2.77 M/UL (4.70-6.10) L Hemoglobin 7.3 G/DL (14.2-18.0) L 8.8 G/DL (14.2-18.0) L Hematocrit 20.1 % (42.0-52.0) L 25.1 % (42.0-52.0) L Mean Corpuscular Volume 89 FL (80-99) 91 FL (80-99) Mean Corpuscular Hemoglobin 32.3 PG (27.0-31.0) H 31.6 PG (27.0-31.0) H Mean Corpuscular Hemoglobin Concent 36.5 G/DL (32.0-36.0) H 34.9 G/DL (32.0-36.0) Red Cell Distribution Width 13.8 % (11.6-14.8) 14.4 % (11.6-14.8) Platelet Count 181 K/UL (150-450) 156 K/UL (150-450) Mean Platelet Volume 5.9 FL (6.5-10.1) L 5.5 FL (6.5-10.1) L Neutrophils (%) (Auto) 85.6 % (45.0-75.0) H 80.5 % (45.0-75.0) H Lymphocytes (%) (Auto) 8.0 % (20.0-45.0) L 12.4 % (20.0-45.0) L Monocytes (%) (Auto) 5.7 % (1.0-10.0) 6.5 % (1.0-10.0) Eosinophils (%) (Auto) 0.2 % (0.0-3.0) 0.3 % (0.0-3.0) Basophils (%) (Auto) 0.5 % (0.0-2.0) 0.3 % (0.0-2.0) Sodium Level 146 MMOL/L (136-145) H Potassium Level 3.5 MMOL/L (3.5-5.1) Chloride Level 112 MMOL/L (98-107) H Carbon Dioxide Level 26 MMOL/L (21-32) Anion Gap 9 mmol/L (5-15) Blood Urea Nitrogen 50 mg/dL (7-18) H Creatinine 0.8 MG/DL (0.55-1.30) Estimat Glomerular Filtration Rate mL/min (>60) Glucose Level 124 MG/DL (74-106) H Calcium Level 7.7 MG/DL (8.5-10.1) L Phosphorus Level 3.8 MG/DL (2.5-4.9) Magnesium Level 2.1 MG/DL (1.8-2.4) Total Bilirubin 0.4 MG/DL (0.2-1.0) Aspartate Amino Transf (AST/SGOT) 18 U/L (15-37) Alanine Aminotransferase (ALT/SGPT) < 6 U/L (12-78) L Alkaline Phosphatase 62 U/L (46-116) Pro-B-Type Natriuretic Peptide 485 pg/mL (0-125) H Total Protein 4.0 G/DL (6.4-8.2) L Albumin 1.2 G/DL (3.4-5.0) L Globulin 2.8 g/dL Albumin/Globulin Ratio 0.4 (1.0-2.7) L Random Vancomycin Level 21.3 ug/mL Plan Problems: (1) Decubitus skin ulcer Assessment & Plan: Pt presented on admission with multiple pressure injuries. Violaceous macular rash noted to L shoulder ,Upper L side of back and lateral L chest. L upper ext edematous with scattered petechiae. Category 2 skin tear with 10% flap loss noted to L brachial. Small amt sanguineous exudate noted. Unstageable pressure injury Sacrum . Base of wound noted to have 100% mixed slough.necrosis .Edges semi-detached and erythematous. Surrounding non- blanchable erythema without elevation in skin temp ,or induration. (L)9.5cm x (W )6.5cm. NO odor or exudate noted. Full thickness pressure injury lumbar spine in close proximity to sacral pressure injury.Base of wound pink with scattered biofilm. (L)2cm x (W)1.6cm. (+ ) maceration along borders. Periwound without erythema or induration. DTPI noted to medial L heel (L)3.2cm x (W)4.5cm. Base of fluctuant with delineated erythematous borders. Periwound fluctuant with non-blanchable erythema.Additionally, an area of stable dry eschar noted to posterior L heel(L) 0.6cm x (W)0.8cm DTPI Noted to lateral R heel. Maroon discoloration that is fluctuant within base of wound.(L)2.5cm x (W)1cm. DTPI noted to medial R heel. Base of wound fluctuant and is maroon in colour (L) 1.5cm x (W)1cm. Maroon discoloration without fluctuance or induration noted to lateral R tibia , superior but in close proximity to lateral Malleolus.(L)1.4cm x (W)0.5cm. Tx.Plan: Cleanse skin tear L brachial. (Maintain Versatel Contact layer)Apply Silvasorb Gel. Cover with Optifoam drsg. Change every 7 days and prn. Cleanse Sacral wound with Saline. Apply Therahoney. Apply Moisture Barrier Paste periwound. Cover with Optifoam drsg. Change every 3 days and prn. Cleanse wound Lumbar spine with saline. Apply Therahoney. Apply Cavilon Skin Barrier periwound. Cover with Optifoam drsg. Change every 3 days and prn. Apply Cavilon Skin Barrier to Lateral R tibia, R heel and L heel. Cover each site with Optifoam drsg. Change every 7 days and prn. APM/FERNANDEZ mattress overlay. Reposition at least every 2hours or as tolerated. Off-load heels with pillow. (2) Acute DVT (deep venous thrombosis) (3) HCAP (healthcare-associated pneumonia) (4) UTI (urinary tract infection) (5) Anemia, chronic disease (6) Sepsis Assessment & Plan: acute gi bleed transfuse prn trend labs cont abx appreciate ID input (7) Feeding by G-tube Assessment & Plan: DAILY ESTIMATED NEEDS: Needs based on Sepsis, wound 60.5kg 25-35 kcals/kg 4806-2380 total kcals 1.25-2 g protein/kg 76-121 g total protein 25-30 mL/kg 9482-4083 total fluid mLs NUTRITION DIAGNOSIS: 1) Increased kcal and pro needs r/t wound healing as evidenced by pt w/ sacral unstageable wound and L heel DTPI. 2) Swallowing difficulty r/t dysphagia as evidenced by pt w/ Parkinson's dz, GT dependent. ENTERAL NUTRITION RECOMMENDATIONS: Glucerna 1.2 @60ml/hr x24 hrs to provide 1440ml, 1728 kcal, 86g pro, 1159ml free H2O - As medically able, rec to start Glucerna 1.2 @20ml/hr, advance as tolerated 10ml q4-6 hrs to goal. - Flush per MD/ HOB over 30 degrees ADDITIONAL RECOMMENDATIONS: 1) Per SNF: 5'6" ht, 133 lbs wt 2) [employer] eval if oral grat is appropriate 3) Wound care: Add YOLI BID via GT + VIT C 250mg BID 4) Hypoglycemics prn/ niss (8) COPD (chronic obstructive pulmonary disease) (9) Alzheimer's dementia (10) Parkinson disease (11) Seizures (12) Hyponatremia (13) Hemorrhagic shocks (14) Severe protein-calorie malnutrition (15) Lower GI bleed Assessment & Plan: Acute lower GI bleed likely due combination of diverticulosis and Eliquis. Eliquis has been stopped for 48 hours now and bleeding seems to have resolved. Patient has been transfused and currently hemoglobin stable. Colonoscopy today performed and no active bleeding noted. Trend labs. We will continue to monitor. (16) C. difficile colitis Andrew Eugene Nov 30, 2018 14:37
--- NOTE | 2018-11-30 15:01 | NUR ---
NURSE NOTES: Received orders to insert Central catheter Addendum: 11/30/18 at 1514 by PILAR PEREZ RN Received orders for central catheter. Patient unable to get PICC since all extremities are affected by DVT's.
--- NOTE | 2018-11-30 16:02 | NUR ---
NURSE NOTES: Received orders for STAT CTA abd and protonix drip per Dr. Dallas.
[2018-11-30] MEDS: Pantoprazole 80 MG in NS 250 ML IV SCH (16:38)
[2018-11-30 16:46] LABS: BASOPHILS % (AUTO) 0.9 % (0.0-2.0); EOSINOPHILS % (AUTO) 1.5 % (0.0-3.0); HEMATOCRIT 22.3 % (42.0-52.0); LYMPHOCYTES % (AUTO) 12.9 % (20.0-45.0); MEAN CORPUSCULAR VOLUME 88 FL (80-99); MONOCYTES % (AUTO) 7.4 % (1.0-10.0); NEUTROPHILS % (AUTO) 77.4 % (45.0-75.0); PLATELET COUNT 167 K/UL (150-450); RED BLOOD COUNT 2.52 M/UL (4.70-6.10); RED CELL DISTRIBUTION WIDTH 14.3 % (11.6-14.8); WHITE BLOOD COUNT 8.2 K/UL (4.8-10.8)
--- NOTE | 2018-11-30 17:08 | Operative Note - PDOC ---
Operative Note Operative Note Date of Operation/Procedure: Nov 30, 2018 Pre-op Diagnosis: acute GI hemorrhage Procedure: right subclavian central venous catheter insertion Post-op Diagnosis: same as pre-op Surgeon: jovan eugene md Anesthesia: local Specimen: none Complications: none Condition: stable Estimated Blood Loss: minimal Drains: none Implant(s) used?: No Indications for Procedure 73 year old male with acute GI bleed currently in ICU. Patient stabilized but now acute bleed again requiring blood products, Rx, fluids. Patient with DVT and poor peripheral access. Central venous catheter indicated and recommended. Unable to obtain consent given patients condition and current status. Line requiring emergently and medically necessary Description of Procedure Patient made comfortable in the supine position Trendelenburg position in hospital bed. right chest wall prepped and draped in standard surgical fashion. anatomic landmarks identified. local anesthetic lidocaine 1% with epi infiltrated. finder needle used and right subclavian vein cannulated on second stick. good venous blood flow noted. guide wire placed over needle and needle removed. small skin incision made over guidewire and dilator used. triple lumen catheter placed without complication and guide wire removed. line sutured in place. dressings applied. all three ports aspirated and flushed without complication. cxr ordered Jovan Eugene Nov 30, 2018 17:08
[2018-11-30] MEDS ORDERED: Isovue-370 150ml vial INJ PRN (17:15)
--- NOTE | 2018-11-30 17:29 | NUR ---
NURSE NOTES: Right subclavian TLC inserted by Dr. Eugene. Placement confirmed with chest x-ray.
[2018-11-30] MEDS ORDERED: Isovue-300 100ml vial INJ PRN (17:30)
[2018-11-30] MEDS ORDERED: Gastrograffin 30ml ORAL PRN (17:30)
--- NOTE | 2018-11-30 18:20 | NUR ---
NURSE NOTES: Patient was cleaned with primary RN. Patient noted to have very loose, maroon to bright red loose stool that was approximately 200-300 ml. A STAT order for CBC was ordered due to the INC of rectal bleeding. Will endorse to the PM Charge regarding patient's INC in rectal bleeding to con't to monitor closely. Per orders as written, PRBCs are to be transfused at around 7.0 however, per Dr Eugene, patient should be transfused at 8.0 or below.
[2018-11-30 19:08] LABS: BASOPHILS % (AUTO) 0.5 % (0.0-2.0); HEMATOCRIT 22.7 % (42.0-52.0); LYMPHOCYTES % (AUTO) 16.2 % (20.0-45.0); MEAN CORPUSCULAR VOLUME 89 FL (80-99); NEUTROPHILS % (AUTO) 74.3 % (45.0-75.0); PLATELET COUNT 154 K/UL (150-450); RED BLOOD COUNT 2.56 M/UL (4.70-6.10); RED CELL DISTRIBUTION WIDTH 14.4 % (11.6-14.8); WHITE BLOOD COUNT 7.7 K/UL (4.8-10.8)
--- NOTE | 2018-11-30 19:27 | NUR ---
HAND-OFF: Report given to MONA Killian using SBAR.
[2018-11-30] MEDS: Dyna-Hex 2% Top Sol 2oz TOPIC SCH (19:43)
--- NOTE | 2018-11-30 19:45 | NUR ---
NURSE NOTES: PATIENT LETHARGIC, DID NOT FOLLOWED COMMANDS, ON O2 3LPM VIA NC, O2 SATURATION OVER 96% NOTED, ABDOMEN SOFT, G TUBE INTACT AND PATENT, HELD FEEDING STATUS, F/C INTACT AND PATENT, DARK YELLOW URINE OUT, PERIPHERAL LINE TO LEFT UPPER CHEST 24G, TLC TO RIGHT SUBCLAVIAN, ONGOING D5W NS AT 75ML/HR AND PROTONIX 8MG/HR VIA TLC, ON P200 BED, MADE LOWER BED POSITION AND PROVIDED CALL LIGHT WITHIN REACH, WILL CONTINUE TO MONITOR.
[2018-11-30] MEDS ORDERED: Dyna-Hex 2% Top Sol 2oz TOPIC SCH (20:00)
--- NOTE | 2018-11-30 20:55 | NUR ---
NURSE NOTES: CT ABD W/ CONTRAST WAS DONE, CAME BACK FROM RADIOLOGY DEPT VIA HOSPITAL BED, NO ACUTE DISTRESS NOTED WHILE PROCEDURE, WILL CONTINUE TO MONITOR.
--- NOTE | 2018-11-30 21:22 | Hematology/Onc Progress Note ---
Assessment/Plan Assessment/Plan # Acute right leg DVT. Heparin drip DCed for rectal bleed. s/p IVC FILTER --> agree with need for this given coagulant contraindication --> appreciate gi and pulm/cc recs --> UPPER EXT DVT noted as well --> have discontinued eliquis given acute GI bleed on 11/27/18, ON HOLD --> in icu as of 11/27 # Anemia due to GI Bleed, other causes exist, multifactorial --> Anemia workup has been reviewed, FERRITIN 831 --> No evidence of hemolysis is noted, peripheral smear has been reviewed. --> Hgb goal >7. Transfuse prn. --> Epogen or iron at this time is not particularly indicated --> Medications have been reviewed --> low threshold for gi evaluation in case has occult +--> endoscopy and colo pending --> hgb trend: 7.4-->9.0-->9-->8.6->8.9-->6.1-->9.8--> 7.3 --> Blood tx: 1 unit 11/19, 11/27 # Leukocytosis due to sepsis. --> Monitor for improvement --> urine and blood cultures are both positive, mrsa positive --> IV abx per id --> trend wbc 11.6--> 16 # Sinus tach due to anemia and sepsis and beta danya withdrawal as was on Metoprolol 12.5 bid at [facility] --> per cards recs # Hypertension. Hold Metoprolol as BP is 90s. --> cloniditon per cards # S/P PEG The timing of this note does not necessarily reflect the time of the patient was seen. GREATLY APPRECIATE CONSULTATION. Subjective Allergies: Coded Allergies: No Known Allergies (Unverified , 11/18/18) Subjective Subjective 11/20: Colonoscopy for today. S/P 1 unit prbc. 11/21: Pt awake and nonverbal. Hgb at 7.4, blood tx ordered. 11/23: Pt no acute respiratory distress. CXR Increased bilateral lower lobe atelectasis or airspace consolidation. Underlying pneumonia may be present. Small bilateral pleural effusions. 11/24: no events, no f/c noted, no bleeding, anemia panel reviewed, s/p ivc filter 11/25: No acute events, no signs of distress. DC planning 11/26: no events, no bleeding, noted to have b/l upper ext dvt, acute started on elqiuis 11/27: sbo was ow in the am, transferred to the icu, hgb low requiring transfusion 11/28: Left UE edema > Right UE, s/p blood transfusion 11/27. 11/29:pt is on Venti mask, lethargic. 11/30:pt seen in am, with thick sputum per suctioning. Objective Objective Current Medications Medications (Trade) Dose Ordered Sig/Pauline Route PRN Reason Start Time Stop Time Status Last Admin Dose Admin Acetaminophen (Tylenol) 650 mg Q4H PRN GT T>100.5 11/27/18 18:18 12/22/18 18:17 Albuterol/ Ipratropium (Albuterol/ Ipratropium) 3 ml Q4H PRN HHN Shortness of Breath 11/27/18 18:18 12/02/18 18:17 Barium Sulfate (Readi-Cat 2) 450 ml NOW PRN ORAL Radiology Procedure 11/30/18 17:30 12/02/18 17:23 Carbidopa/Levodopa (Sinemet 25/100) 1 tab THREE TIMES A DAY GT 11/27/18 18:00 12/27/18 17:59 11/30/18 17:38 Chlorhexidine Gluconate (Marycarmen-Hex 2%) 1 applic DAILY@2000 TOPIC 11/30/18 20:00 12/30/18 19:59 11/30/18 19:43 Clonidine HCl (Catapres Tab) 0.1 mg Q4H PRN GT sbp>170mmHg 11/27/18 18:18 12/22/18 18:17 Dextrose (Dextrose 50%) 25 ml Q30M PRN IV Hypoglycemia 11/27/18 18:18 12/18/18 18:17 Dextrose (Dextrose 50%) 50 ml Q30M PRN IV Hypoglycemia 11/27/18 18:18 12/18/18 18:17 Dextrose/Sodium Chloride 1,000 ml @ 75 mls/hr [id number] IV 11/29/18 15:45 12/29/18 15:44 11/30/18 17:39 Diatrizoate Meglum/ Diatrizoate Sod (Gastrografin) 30 ml NOW PRN ORAL Radiology Procedure 11/30/18 17:30 12/02/18 17:23 Iopamidol (Isovue-300 100ml) 100 ml NOW PRN INJ Radiology Procedure 11/30/18 17:30 12/02/18 17:23 Iopamidol (Isovue-370 150ml) 150 ml NOW PRN INJ Radiology Procedure 11/30/18 17:15 12/02/18 17:15 Lactobacillus Acidophilus (Culturelle) 1 tab THREE TIMES A DAY ORAL 11/29/18 18:00 12/29/18 17:59 11/30/18 17:38 Metronidazole 100 ml @ 100 mls/hr Q6H IVPB 11/29/18 14:00 12/06/18 13:59 11/30/18 19:44 Pantoprazole 80 mg/Sodium Chloride 250 ml @ 25 mls/hr Q10H IV 11/30/18 17:00 12/30/18 16:59 11/30/18 16:38 Vancomycin HCl (Firvanq) 125 mg FOUR TIMES A DAY ORAL 11/29/18 09:00 12/06/18 08:59 11/30/18 21:03 Vancomycin HCl (Vanco rx to dose) 1 ea DAILY PRN MISC Per rx protocol 11/27/18 18:18 12/27/18 18:17 Vancomycin HCl 750 mg/Sodium Chloride 275 ml @ 183.333 mls/hr ONCE ONCE IVPB 12/01/18 06:00 12/01/18 07:29 Last 24 Hour Vital Signs Date Time Temp Pulse Resp B/P (MAP) Pulse Ox O2 Delivery O2 Flow Rate FiO2 11/30/18 19:08 76 19 97 Nasal Cannula 3.0 32 11/30/18 19:08 97 Nasal Cannula 3.0 32 11/30/18 18:00 82 13 113/59 (77) 100 11/30/18 17:00 88 17 108/64 (79) 100 11/30/18 16:00 85 17 103/57 (72) 100 11/30/18 16:00 74 11/30/18 16:00 Nasal Cannula 3.0 11/30/18 15:00 88 13 101/53 (69) 100 11/30/18 14:00 82 13 93/50 (64) 100 11/30/18 13:00 92 13 111/58 (75) 100 11/30/18 12:00 Nasal Cannula 3.0 11/30/18 12:00 98.2 82 13 111/63 (79) 100 11/30/18 12:00 88 11/30/18 11:00 81 13 107/63 (78) 100 11/30/18 10:00 76 14 91/56 (68) 100 11/30/18 09:00 79 14 93/52 (66) 100 11/30/18 08:00 82 11/30/18 08:00 Nasal Cannula 3.0 11/30/18 08:00 98.6 90 14 119/67 (84) 100 11/30/18 07:17 80 15 98 Nasal Cannula 3.0 32 11/30/18 07:15 100 Venturi Mask 10.0 45 11/30/18 07:00 82 14 103/66 (78) 100 11/30/18 06:00 87 16 111/65 (80) 100 11/30/18 05:00 86 14 115/71 (86) 100 11/30/18 04:00 Venturi Mask 10.0 11/30/18 04:00 97.5 88 18 105/61 (76) 99 11/30/18 03:05 82 11/30/18 03:00 94 20 127/76 (93) 100 11/30/18 02:00 83 15 113/65 (81) 98 11/30/18 01:00 80 13 113/74 (87) 100 11/30/18 00:00 97.5 80 13 113/71 (85) 100 11/30/18 00:00 Venturi Mask 10.0 11/29/18 23:40 85 11/29/18 23:13 99 Venturi Mask 10.0 45 11/29/18 23:00 83 14 125/58 (80) 99 11/29/18 22:00 85 18 123/73 (90) 100 11/29/18 21:00 83 14 101/61 (74) 100 11/29/18 20:00 97.7 89 14 119/61 (80) 100 11/29/18 20:00 Venturi Mask 14.0 11/29/18 19:28 87 11/29/18 19:00 85 15 98/60 (73) 99 11/29/18 18:54 87 18 99 Venturi Mask 14.0 55 11/29/18 18:54 99 Venturi Mask 14.0 55 11/29/18 18:00 90 13 120/66 (84) 98 11/29/18 17:00 96 16 114/67 (83) 90 11/29/18 16:30 97 16 125/70 (88) 94 11/29/18 16:00 98.2 97 17 141/74 (96) 100 11/29/18 16:00 Venturi Mask 14.0 11/29/18 16:00 86 11/29/18 15:00 87 19 101/61 (74) 97 11/29/18 14:30 90 12 132/67 (88) 100 11/29/18 14:00 90 14 114/65 (81) 99 11/29/18 13:00 93 14 122/69 (86) 100 11/29/18 12:00 91 11/29/18 12:00 98.6 94 25 112/68 (83) 100 11/29/18 12:00 Venturi Mask 14.0 11/29/18 11:00 96 14 120/71 (87) 100 11/29/18 10:00 107 22 145/74 (97) 97 11/29/18 09:30 102 18 135/75 (95) 94 11/29/18 09:15 103 19 135/68 (90) 96 11/29/18 09:00 102 22 139/77 (97) 100 11/29/18 08:45 100 16 138/77 (97) 100 11/29/18 08:30 101 16 133/80 (97) 100 11/29/18 08:15 100 15 125/74 (91) 100 11/29/18 08:00 98.5 101 17 121/69 (86) 100 11/29/18 08:00 Venturi Mask 14.0 11/29/18 08:00 101 11/29/18 07:43 101 22 100 11/29/18 07:00 100 21 122/64 (83) 99 11/29/18 06:00 98 21 121/71 (88) 99 11/29/18 05:00 99 21 129/72 (91) 99 11/29/18 04:00 Venturi Mask 14.0 11/29/18 04:00 98.5 105 22 137/75 (95) 100 11/29/18 04:00 114 11/29/18 03:00 107 21 131/85 (100) 99 11/29/18 02:00 107 21 117/70 (86) 99 11/29/18 01:00 112 21 132/63 (86) 100 11/29/18 00:00 Venturi Mask 14.0 11/29/18 00:00 116 11/29/18 00:00 98.5 115 22 130/59 (82) 94 11/28/18 23:10 114 21 123/55 (77) 96 11/28/18 23:00 114 21 123/55 (77) 97 11/28/18 22:55 98.5 116 21 100/47 (64) 95 11/28/18 22:00 118 21 96/48 (64) 100 Intake and Output 11/29/18 11/30/18 19:00 07:00 Intake Total 385.0 ml 1380 ml Output Total 410 ml 725 ml Balance -25.0 ml 655 ml IV Total 385.0 ml 1100 ml Blood Product 250 ml Other 30 ml Output Urine Total 410 ml 725 ml # Bowel Movements 4 2 Labs Test 11/28/18 01:27 11/28/18 04:30 11/28/18 09:45 11/28/18 16:50 White Blood Count 28.4 K/UL (4.8-10.8) 29.2 K/UL (4.8-10.8) Red Blood Count 3.03 M/UL (4.70-6.10) 3.08 M/UL (4.70-6.10) Hemoglobin 9.7 G/DL (14.2-18.0) 9.8 G/DL (14.2-18.0) Hematocrit 27.8 % (42.0-52.0) 28.5 % (42.0-52.0) Mean Corpuscular Volume 92 FL (80-99) 93 FL (80-99) Mean Corpuscular Hemoglobin 31.9 PG (27.0-31.0) 31.9 PG (27.0-31.0) Mean Corpuscular Hemoglobin Concent 34.7 G/DL (32.0-36.0) 34.4 G/DL (32.0-36.0) Red Cell Distribution Width 15.3 % (11.6-14.8) 15.1 % (11.6-14.8) Platelet Count 263 K/UL (150-450) 261 K/UL (150-450) Mean Platelet Volume 5.2 FL (6.5-10.1) 5.0 FL (6.5-10.1) Neutrophils (%) (Auto) % (45.0-75.0) % (45.0-75.0) Lymphocytes (%) (Auto) % (20.0-45.0) % (20.0-45.0) Monocytes (%) (Auto) % (1.0-10.0) % (1.0-10.0) Eosinophils (%) (Auto) % (0.0-3.0) % (0.0-3.0) Basophils (%) (Auto) % (0.0-2.0) % (0.0-2.0) Differential Total Cells Counted 100 100 Neutrophils % (Manual) 84 % (45-75) 91 % (45-75) Lymphocytes % (Manual) 10 % (20-45) 6 % (20-45) Monocytes % (Manual) 3 % (1-10) 2 % (1-10) Eosinophils % (Manual) 0 % (0-3) 0 % (0-3) Basophils % (Manual) 0 % (0-2) 1 % (0-2) Band Neutrophils 3 % (0-8) 0 % (0-8) Platelet Estimate Adequate Adequate Platelet Morphology Normal Normal Hypochromasia 2+ Anisocytosis 1+ Spherocytes 1+ Sodium Level 141 MMOL/L (136-145) Potassium Level 4.8 MMOL/L (3.5-5.1) Chloride Level 107 MMOL/L (98-107) Carbon Dioxide Level 23 MMOL/L (21-32) Anion Gap 12 mmol/L (5-15) Blood Urea Nitrogen 47 mg/dL (7-18) Creatinine 0.8 MG/DL (0.55-1.30) Estimat Glomerular Filtration Rate mL/min (>60) Glucose Level 158 MG/DL (74-106) Uric Acid 2.9 MG/DL (2.6-7.2) Calcium Level 7.8 MG/DL (8.5-10.1) Phosphorus Level 5.1 MG/DL (2.5-4.9) Magnesium Level 1.6 MG/DL (1.8-2.4) Total Bilirubin 0.7 MG/DL (0.2-1.0) Aspartate Amino Transf (AST/SGOT) 27 U/L (15-37) Alanine Aminotransferase (ALT/SGPT) 15 U/L (12-78) Alkaline Phosphatase 70 U/L (46-116) Total Protein 4.0 G/DL (6.4-8.2) Albumin 1.2 G/DL (3.4-5.0) Globulin 2.8 g/dL Albumin/Globulin Ratio 0.4 (1.0-2.7) Vancomycin Level Trough > 50.0 ug/mL (5.0-12.0) Urine Color Brown Urine Appearance Slightly cloudy Urine pH 5 (4.5-8.0) Urine Specific Davis 1.025 (1.005-1.035) Urine Protein 1+ (NEGATIVE) Urine Glucose (UA) Negative (NEGATIVE) Urine Ketones 1+ (NEGATIVE) Urine Blood 1+ (NEGATIVE) Urine Nitrite Negative (NEGATIVE) Urine Bilirubin 2+ (NEGATIVE) Urine Ictotest Negative (NEGATIVE) Urine Urobilinogen 1 MG/DL (0.0-1.0) Urine Leukocyte Esterase 1+ (NEGATIVE) Urine RBC 5-10 /HPF (0 - 0) Urine WBC 2-4 /HPF (0 - 0) Urine Squamous Epithelial Cells None /LPF (NONE/OCC) Urine Amorphous Sediment Few /LPF (NONE) Urine Bacteria Many /HPF (NONE) Test 11/28/18 18:26 11/29/18 04:30 11/29/18 18:10 11/30/18 05:00 White Blood Count 40.3 K/UL (4.8-10.8) 27.1 K/UL (4.8-10.8) 16.0 K/UL (4.8-10.8) 9.8 K/UL (4.8-10.8) Red Blood Count 1.92 M/UL (4.70-6.10) 2.97 M/UL (4.70-6.10) 2.26 M/UL (4.70-6.10) 2.77 M/UL (4.70-6.10) Hemoglobin 6.1 G/DL (14.2-18.0) 9.3 G/DL (14.2-18.0) 7.3 G/DL (14.2-18.0) 8.8 G/DL (14.2-18.0) Hematocrit 17.6 % (42.0-52.0) 26.5 % (42.0-52.0) 20.1 % (42.0-52.0) 25.1 % (42.0-52.0) Mean Corpuscular Volume 91 FL (80-99) 89 FL (80-99) 89 FL (80-99) 91 FL (80- 99) Mean Corpuscular Hemoglobin 32.0 PG (27.0-31.0) 31.4 PG (27.0-31.0) 32.3 PG (27.0-31.0) 31.6 PG (27.0-31.0) Mean Corpuscular Hemoglobin Concent 35.0 G/DL (32.0-36.0) 35.2 G/DL (32.0-36.0) 36.5 G/DL (32.0-36.0) 34.9 G/DL (32.0-36.0) Red Cell Distribution Width 15.0 % (11.6-14.8) 14.2 % (11.6-14.8) 13.8 % (11.6-14.8) 14.4 % (11.6-14.8) Platelet Count 264 K/UL (150-450) 216 K/UL (150-450) 181 K/UL (150-450) 156 K/UL (150-450) Mean Platelet Volume 5.5 FL (6.5-10.1) 5.7 FL (6.5-10.1) 5.9 FL (6.5-10.1) 5.5 FL (6.5-10.1) Neutrophils (%) (Auto) % (45.0-75.0) % (45.0-75.0) 85.6 % (45.0-75.0) 80.5 % (45.0-75.0) Lymphocytes (%) (Auto) % (20.0-45.0) % (20.0-45.0) 8.0 % (20.0-45.0) 12.4 % (20.0-45.0) Monocytes (%) (Auto) % (1.0-10.0) % (1.0-10.0) 5.7 % (1.0-10.0) 6.5 % (1.0-10.0) Eosinophils (%) (Auto) % (0.0-3.0) % (0.0-3.0) 0.2 % (0.0-3.0) 0.3 % (0.0-3.0) Basophils (%) (Auto) % (0.0-2.0) % (0.0-2.0) 0.5 % (0.0-2.0) 0.3 % (0.0-2.0) Differential Total Cells Counted 100 100 Neutrophils % (Manual) 89 % (45-75) 82 % (45-75) Lymphocytes % (Manual) 6 % (20-45) 10 % (20-45) Monocytes % (Manual) 3 % (1-10) 6 % (1-10) Eosinophils % (Manual) 0 % (0-3) 0 % (0-3) Basophils % (Manual) 0 % (0-2) 0 % (0-2) Band Neutrophils 2 % (0-8) 2 % (0-8) Platelet Estimate Adequate Adequate Platelet Morphology Normal Normal Hypochromasia 1+ Anisocytosis 1+ 1+ Prothrombin Time 11.6 SEC (9.30-11.50) 10.8 SEC (9.30-11.50) Prothromb Time International Ratio 1.1 (0.9-1.1) 1.0 (0.9-1.1) Activated Partial Thromboplast Time 25 SEC (23-33) 23 SEC (23-33) Sodium Level 140 MMOL/L (136-145) 145 MMOL/L (136-145) 146 MMOL/L (136-145) Potassium Level 4.4 MMOL/L (3.5-5.1) 4.3 MMOL/L (3.5-5.1) 3.5 MMOL/L (3.5-5.1) Chloride Level 106 MMOL/L (98-107) 110 MMOL/L (98-107) 112 MMOL/L (98-107) Carbon Dioxide Level 19 MMOL/L (21-32) 25 MMOL/L (21-32) 26 MMOL/L (21-32) Anion Gap 15 mmol/L (5-15) 10 mmol/L (5-15) 9 mmol/L (5-15) Blood Urea Nitrogen 58 mg/dL (7-18) 63 mg/dL (7-18) 50 mg/dL (7-18) Creatinine 1.1 MG/DL (0.55-1.30) 1.1 MG/DL (0.55-1.30) 0.8 MG/DL (0.55-1.30) Estimat Glomerular Filtration Rate mL/min (>60) mL/min (>60) mL/min (>60) Glucose Level 211 MG/DL (74-106) 141 MG/DL (74-106) 124 MG/DL (74-106) Calcium Level 7.6 MG/DL (8.5-10.1) 8.0 MG/DL (8.5-10.1) 7.7 MG/DL (8.5-10.1) Total Bilirubin 0.4 MG/DL (0.2-1.0) 0.6 MG/DL (0.2-1.0) 0.4 MG/DL (0.2-1.0) Aspartate Amino Transf (AST/SGOT) 22 U/L (15-37) 22 U/L (15-37) 18 U/L (15-37) Alanine Aminotransferase (ALT/SGPT) 14 U/L (12-78) 13 U/L (12-78) < 6 U/L (12-78) Alkaline Phosphatase 65 U/L (46-116) 68 U/L (46-116) 62 U/L (46-116) Total Protein 3.4 G/DL (6.4-8.2) 4.1 G/DL (6.4-8.2) 4.0 G/DL (6.4-8.2) Albumin 1.0 G/DL (3.4-5.0) 1.2 G/DL (3.4-5.0) 1.2 G/DL (3.4-5.0) Globulin 2.4 g/dL 2.9 g/dL 2.8 g/dL Albumin/Globulin Ratio 0.4 (1.0-2.7) 0.4 (1.0-2.7) 0.4 (1.0-2.7) Nucleated Red Blood Cells 1 /100 WBC Polychromasia 3+ Uric Acid 5.6 MG/DL (2.6-7.2) Phosphorus Level 5.4 MG/DL (2.5-4.9) 3.8 MG/DL (2.5-4.9) Magnesium Level 2.0 MG/DL (1.8-2.4) 2.1 MG/DL (1.8-2.4) Random Vancomycin Level 27.7 ug/mL 21.3 ug/mL Pro-B-Type Natriuretic Peptide 485 pg/mL (0-125) Test 11/30/18 16:20 11/30/18 18:55 White Blood Count 8.2 K/UL (4.8-10.8) 7.7 K/UL (4.8-10.8) Red Blood Count 2.52 M/UL (4.70-6.10) 2.56 M/UL (4.70-6.10) Hemoglobin 8.0 G/DL (14.2-18.0) 8.0 G/DL (14.2-18.0) Hematocrit 22.3 % (42.0-52.0) 22.7 % (42.0-52.0) Mean Corpuscular Volume 88 FL (80-99) 89 FL (80-99) Mean Corpuscular Hemoglobin 31.6 PG (27.0-31.0) 31.1 PG (27.0-31.0) Mean Corpuscular Hemoglobin Concent 35.8 G/DL (32.0-36.0) 35.1 G/DL (32.0-36.0) Red Cell Distribution Width 14.3 % (11.6-14.8) 14.4 % (11.6-14.8) Platelet Count 167 K/UL (150-450) 154 K/UL (150-450) Mean Platelet Volume 5.6 FL (6.5-10.1) 5.0 FL (6.5-10.1) Neutrophils (%) (Auto) 77.4 % (45.0-75.0) 74.3 % (45.0-75.0) Lymphocytes (%) (Auto) 12.9 % (20.0-45.0) 16.2 % (20.0-45.0) Monocytes (%) (Auto) 7.4 % (1.0-10.0) 8.0 % (1.0-10.0) Eosinophils (%) (Auto) 1.5 % (0.0-3.0) 1.0 % (0.0-3.0) Basophils (%) (Auto) 0.9 % (0.0-2.0) 0.5 % (0.0-2.0) Height (Feet): 5 Height (Inches): 7.00 Weight (Pounds): 129 Objective General Appearance: WD/WN Lines, tubes and drains: central line HEENT: normocephalic, atraumatic, 02/NC Neck: non-tender, normal alignment Breasts: no masses Cardiovascular/Chest: normal peripheral pulses, normal rate, regular rhythm Abdomen: normal bowel sounds, non tender ++ peg Genitourinary/Rectal: normal genital exam, heme negative stool Extremities: normal range of motion, ++Edema RUE > L UE Skin Exam: normal pigmentation 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
--- NOTE | 2018-11-30 21:28 | NUR ---
NURSE NOTES: CALLED DR. SEBASTIAN REGARDING 7PM CBC RESULT THAT WAS AWARE.
--- NOTE | 2018-11-30 23:52 | NUR ---
HAND-OFF: Report given to MONA ARIAS.
--- NOTE | 2018-11-30 23:53 | NUR ---
NURSE NOTES: Report received from MONA Killian. Observed pt lying in the bed, open eyes but non-verbal, flat affect. No signs of pain noted. SR with wood scaler. On 3L NC, with no SOB, saturating at 100%. GT site intact, and feeding on hold noted. F/C intact and 50cc output noted. IV on R subclavian TLC, running D5 NS at 75cc/hr and Protonix 80mg at 25cc/hr. Bed in the lowest position. Side rails up and padded x3. Will continue to monitor.
[2018-12-01] VITALS (24 sets, daily range): BP systolic 104–133; BP diastolic 53–81
--- NOTE | 2018-12-01 02:08 | NUR ---
NURSE NOTES: Pt lying in bed, appears to be calm and comfortable, and no signs of pain noted at this time. Flagyl at 100cc/hr started, running at R subclavian TLC. Reposition done with pillow support. VS WNL. SR with ruling machine operator noted. Will continue to monitor.
[2018-12-01] MEDS: Pantoprazole 80 MG in NS 250 ML IV SCH ×3 (02:30→23:04)
--- NOTE | 2018-12-01 04:06 | NUR ---
NURSE NOTES: Observed pt sleeping in the bed. V/S WNL. ST with case monitor with HR of 104 noted. No acute distress noted at this time. Bed bath given. Sacral wound dressing changed. Cleaned with NS, therahoney applied on wound, cavilon and triad applied periwound, and covered with optifoam. Reposition done with pillow support. Will continue to monitor. Addendum: 12/01/18 at 0507 by Evaristo Zhu RN Noted moderate amount of dark brown loose stool.
[2018-12-01 05:02] LABS: HEMATOCRIT 22.6 % (42.0-52.0); HEMOGLOBIN 7.6 G/DL (14.2-18.0); MEAN CORPUSCULAR VOLUME 93 FL (80-99); PLATELET COUNT 152 K/UL (150-450); RED BLOOD COUNT 2.44 M/UL (4.70-6.10); RED CELL DISTRIBUTION WIDTH 16.5 % (11.6-14.8); WHITE BLOOD COUNT 7.9 K/UL (4.8-10.8)
[2018-12-01 05:23] LABS: ALANINE AMINOTRANSFERASE 9 U/L (12-78); ALBUMIN 1.2 G/DL (3.4-5.0); ALBUMIN/GLOBULIN RATIO 0.5 (1.0-2.7); ALKALINE PHOSPHATASE 54 U/L (46-116); ANION GAP 6 mmol/L (5-15); ASPARTATE AMINO TRANSFERASE 19 U/L (15-37); BILIRUBIN,TOTAL 0.4 MG/DL (0.2-1.0); BLOOD UREA NITROGEN 31 mg/dL (7-18); CALCIUM 7.6 MG/DL (8.5-10.1); CARBON DIOXIDE 26 MMOL/L (21-32); CHLORIDE 116 MMOL/L (98-107); CREATININE 0.6 MG/DL (0.55-1.30); LACTATE DEHYDROGENASE 215 U/L (81-234); PHOSPHORUS 2.8 MG/DL (2.5-4.9); POTASSIUM 2.9 MMOL/L (3.5-5.1); SODIUM 148 MMOL/L (136-145)
[2018-12-01] MEDS: D5NS 1,000 ML IV SCH ×2 (05:33→20:56)
--- NOTE | 2018-12-01 05:54 | NUR ---
NURSE NOTES: Notified regarding hgb 7.6 and another CBC ordered at 1800. Will continue to monitor.
[2018-12-01] MEDS ORDERED: Vancomycin 750mg/NS 275ml IVPB ONE ×2 (06:00)
--- NOTE | 2018-12-01 06:55 | NUR ---
NURSE NOTES: Observed pt sleeping in the bed. VS WNL. No sings of acute distress noted at this time. Left a message to regarding abnormal lab results. Awaiting for call back. Will continue to monitor.
--- NOTE | 2018-12-01 07:10 | NUR ---
NURSE NOTES: Received pt from MONA Pat. Patient is awake, in bed. Good eye contact, tracks eyes but NV and unable to follow commands. 2LNC, spo2 100%, RR 16. Breating even and unlabored. Bilateral breath sounds are clear. ST 103 on athletic monitor. Protonix drip running at 25ml/hr and D5NS@50ml/hr via right subclavian TLC. Patient has PEG running Glucerna 1.2@35ml/hr, 10cc residual, HOB 35 degrees. Sacral stage 4 dressing clean and intact. left upper extremity noticeably more edematous (+4) than right arm edema (+3). Bilateral arms warm to touch and red. Seizure precautions in place. FC draining small to mod. amt. alexandrea colored urine to gravity. Patient does not have bloody stool at this time. Hgb 7.[address] Dallas, waiting for reply back. Bed locked, alarmed and in lowest position.
--- NOTE | 2018-12-01 07:25 | NUR ---
HAND-OFF: Report given to MONA Mccormick. No aucte distress noted at this time.
--- NOTE | 2018-12-01 07:55 | NUR ---
NURSE NOTES: Notified Dr. Dallas of H/H=7.6/22.6, received orders to transfuse x1 PRBC now. Type and screen to be collected as last draw was over 72 hours ago.
--- NOTE | 2018-12-01 08:04 | General Progress Note ---
Assessment/Plan Problem List: (1) Seizures ICD Codes: R56.9 - Unspecified convulsions SNOMED: 35562269 (2) Parkinson disease ICD Codes: G20 - Parkinson's disease SNOMED: 94774970 (3) Alzheimer's dementia ICD Codes: G30.9 - Alzheimer's disease, unspecified; F02.80 - Dementia in other diseases classified elsewhere without behavioral disturbance SNOMED: 48908303 (4) COPD (chronic obstructive pulmonary disease) ICD Codes: J44.9 - Chronic obstructive pulmonary disease, unspecified SNOMED: 95089996 (5) Feeding by G-tube ICD Codes: Z93.1 - Gastrostomy status SNOMED: 688708388, 441093082, 603515128 (6) Anemia, chronic disease ICD Codes: D63.8 - Anemia in other chronic diseases classified elsewhere SNOMED: 551732366, 826731058 Status: unchanged Assessment/Plan: minimal drop in H&H over night per nurses some dark stool but no BRBPR colonoscopy done on Saturday transfuse one unit PRBC protonix drip monitor H&H consider EGD if needed keep NPO for today Subjective ROS Limited/Unobtainable: No Allergies: Coded Allergies: No Known Allergies (Unverified , 11/18/18) Objective Last 24 Hour Vital Signs Date Time Temp Pulse Resp B/P (MAP) Pulse Ox O2 Delivery O2 Flow Rate FiO2 12/01/18 07:00 95 15 115/72 (86) 100 12/01/18 06:00 96 13 121/68 (85) 100 12/01/18 05:00 100 19 120/66 (84) 100 12/01/18 04:00 97.7 101 20 133/78 (96) 100 12/01/18 04:00 Nasal Cannula 3.0 12/01/18 04:00 107 12/01/18 03:00 93 22 126/64 (84) 100 12/01/18 02:00 85 14 118/53 (74) 100 12/01/18 01:00 90 13 111/71 (84) 100 12/01/18 00:00 97.7 82 14 123/66 (85) 100 12/01/18 00:00 Nasal Cannula 3.0 12/01/18 00:00 83 11/30/18 23:00 81 14 117/64 (81) 100 11/30/18 22:00 83 15 129/68 (88) 100 11/30/18 21:00 85 13 110/55 (73) 100 11/30/18 20:51 102 11/30/18 20:00 Nasal Cannula 3.0 11/30/18 20:00 98.2 85 2 109/59 (76) 100 11/30/18 19:08 76 19 97 Nasal Cannula 3.0 32 11/30/18 19:08 97 Nasal Cannula 3.0 32 11/30/18 19:00 77 13 106/55 (72) 100 11/30/18 18:00 82 13 113/59 (77) 100 11/30/18 17:00 88 17 108/64 (79) 100 11/30/18 16:00 85 17 103/57 (72) 100 11/30/18 16:00 74 11/30/18 16:00 Nasal Cannula 3.0 11/30/18 15:00 88 13 101/53 (69) 100 11/30/18 14:00 82 13 93/50 (64) 100 11/30/18 13:00 92 13 111/58 (75) 100 11/30/18 12:00 Nasal Cannula 3.0 11/30/18 12:00 98.2 82 13 111/63 (79) 100 11/30/18 12:00 88 11/30/18 11:00 81 13 107/63 (78) 100 11/30/18 10:00 76 14 91/56 (68) 100 11/30/18 09:00 79 14 93/52 (66) 100 Intake and Output 11/30/18 12/01/18 19:00 07:00 Intake Total 1555 ml 1675 ml Output Total 890 ml 880 ml Balance 665 ml 795 ml Free Water 60 ml 60 ml IV Total 900 ml 1400 ml Tube Feeding 145 ml 175 ml Other 450 ml 40 ml Output Urine Total 890 ml 880 ml # Bowel Movements 4 4 Laboratory Tests 11/30/18 16:20: White Blood Count 8.2, Red Blood Count 2.52L, Hemoglobin 8.0L, Hematocrit 22.3L , Mean Corpuscular Volume 88, Mean Corpuscular Hemoglobin 31.6H, Mean Corpuscular Hemoglobin Concent 35.8, Red Cell Distribution Width 14.3, Platelet Count 167, Mean Platelet Volume 5.6L, Neutrophils (%) (Auto) 77.4H, Lymphocytes (%) (Auto) 12.9L, Monocytes (%) (Auto) 7.4, Eosinophils (%) (Auto) 1.5, Basophils (%) (Auto) 0.9 11/30/18 18:55: White Blood Count 7.7, Red Blood Count 2.56L, Hemoglobin 8.0L, Hematocrit 22.7L , Mean Corpuscular Volume 89, Mean Corpuscular Hemoglobin 31.1H, Mean Corpuscular Hemoglobin Concent 35.1, Red Cell Distribution Width 14.4, Platelet Count 154, Mean Platelet Volume 5.0L, Neutrophils (%) (Auto) 74.3, Lymphocytes ( %) (Auto) 16.2L, Monocytes (%) (Auto) 8.0, Eosinophils (%) (Auto) 1.0, Basophils (%) (Auto) 0.5 12/01/18 04:18: White Blood Count 7.9, Red Blood Count 2.44L, Hemoglobin 7.6L, Hematocrit 22.6L , Mean Corpuscular Volume 93, Mean Corpuscular Hemoglobin 31.1H, Mean Corpuscular Hemoglobin Concent 33.6, Red Cell Distribution Width 16.5H, Platelet Count 152, Mean Platelet Volume 5.3L, Neutrophils (%) (Auto) , Lymphocytes (%) (Auto) , Monocytes (%) (Auto) , Eosinophils (%) (Auto) , Basophils (%) (Auto) , Erythrocyte Sedimentation Rate 28H, Reticulocyte Count [ Pending], Sodium Level 148H, Potassium Level 2.9L, Chloride Level 116H, Carbon Dioxide Level 26, Anion Gap 6, Blood Urea Nitrogen 31H, Creatinine 0.6, Estimat Glomerular Filtration Rate , Glucose Level 118H, Calcium Level 7.6L, Phosphorus Level 2.8, Magnesium Level 1.7L, Total Bilirubin 0.4, Aspartate Amino Transf ( AST/SGOT) 19, Alanine Aminotransferase (ALT/SGPT) 9L, Alkaline Phosphatase 54, Lactate Dehydrogenase 215, Total Protein 3.8L, Albumin 1.2L, Globulin 2.6, Albumin/Globulin Ratio 0.5L Height (Feet): 5 Height (Inches): 7.00 Weight (Pounds): 131 General Appearance: lethargic EENT: normal ENT inspection Neck: supple Cardiovascular: normal rate Respiratory/Chest: decreased breath sounds Abdomen: normal bowel sounds, non tender, soft Extremities: non-tender Deacon Dallas MD Dec 01, 2018 08:04
[2018-12-01] MEDS: Lactobacillus-GG tablet ORAL SCH ×3 (08:42→17:08)
[2018-12-01] MEDS: Vancomycin oral 125mg/2.5ml ORAL SCH ×4 (08:42→20:56)
[2018-12-01] MEDS: Levodopa/Carbidopa 25/100 tab GT SCH ×3 (08:42→17:08)
--- NOTE | 2018-12-01 09:23 | Diagnostic Imaging Report ---
Clinical Indication: Acute lower GI bleed, anemia cyst, sepsis, abdominal pain Technique: Patient given enteric contrast. IV administration nonionic contrast. Venous phase spiral acquisition obtained through the abdomen and pelvis. Multiplanar reconstructions were generated. Total dose length product 623.43 mGycm. CTDIvol(s) 11.49 mGy. Dose reduction achieved using automated exposure control Comparison: none Findings: There is a gastrostomy tube in good position. There is equivocally a minimal sliding-type hiatal hernia. The appendix is normal. There are a few colonic diverticula. No evidence of diverticulitis. Trace free intraperitoneal fluid is seen within the pelvis. Contrast is seen throughout the entirety of the large and small bowel. No small bowel distention. There is suggestion of slight wall thickening of jejunal loops in the left upper quadrant. The liver demonstrates scattered subcentimeter low-attenuation lesions which are too small to characterize. The gallbladder, bile ducts, pancreas, spleen, adrenals are unremarkable. The right kidney demonstrates a 3.7 cm diameter interpolar region cyst and the left kidney demonstrates a 2.9 cm cyst coming off of the lower pole.. Both kidneys demonstrate subcentimeter low-attenuation lesions which are too small to characterize. A 3 mm calyceal calculus is seen in the left renal interpolar region. The prostate is enlarged, measuring 5.3 cm transverse diameter. There is a Bradley catheter within the bladder. Gas within the bladder lumen is likely related to the Bradley catheter. There is edema of the bilateral flank subcutaneous fat, left greater than right. There are small bilateral pleural effusions. Fairly extensive atelectasis and consolidation is seen at both lung bases, left greater than right. The bones demonstrate degenerative spondylosis changes. There is an inferior vena cava filter in good position. The hips demonstrate extensive chronic appearing degenerative changes with chronic appearing synovial proliferation versus effusions and peripheral calcifications. Impression: Nonspecific trace free intraperitoneal fluid No acute abdominal or pelvic process otherwise Fairly extensive bilateral basilar pulmonary parenchymal consolidation and atelectasis. Bilateral small pleural effusions Colonic diverticulosis. No evidence of diverticulitis Gastrostomy Nonobstructive 3 mm left intrarenal calyceal calculus Prostatomegaly Edema of the bilateral left greater than right subcutaneous fat Fairly extensive chronic appearing bilateral hip degenerative changes, with bilateral joint effusions versus chronic synovial proliferation Inferior vena cava filter Bradley catheter within the bladder. Gas within the bladder lumen likely related to such Bilateral renal cysts. Subcentimeter low-attenuation renal lesions, too small to characterize, most likely benign simple cysts. No further follow-up necessary Degenerative spondylosis This agrees with the preliminary interpretation provided overnight by [facility] teleradiology service. The CT scanner at [facility] is accredited by the [employer] and the scans are performed using protocols designed to limit radiation exposure to as low as reasonably achievable to attain images of sufficient resolution adequate for diagnostic evaluation.
--- NOTE | 2018-12-01 09:30 | NUR ---
NURSE NOTES: Turned and repositioned. No signs of distress. no BM yet.
--- NOTE | 2018-12-01 09:56 | Pulmonolgy Critical Care Note ---
Critical Care - Asmt/Plan Problems: (1) HCAP (healthcare-associated pneumonia) (2) Lower GI bleed (3) Hemorrhagic shocks (4) Acute DVT (deep venous thrombosis) (5) COPD (chronic obstructive pulmonary disease) (6) S/P insertion of IVC (inferior vena caval) filter (7) Severe protein-calorie malnutrition (8) Seizures (9) Feeding by G-tube (10) Parkinson disease (11) Alzheimer's dementia (12) C. difficile colitis Respiratory: monitor respiratory rate, adjust FIO2, CXR Cardiac: start pressors, continue to monitor HR/BP Renal: F/U I&O, check electrolytes Infectious Disease: continue antibiotics Gastrointestinal: start feedings Endocrine: monitor blood sugar Hematologic: transfuse if hgb<8.5 Neurologic: PRN Ativan, PRN Morphine, keep patient comfortable Prophylaxis: Heparin Time Spent (Minutes): 40 Notes Reviewed: cisco network engineer, cardio Discussed with: nurses, consultants, gearcase assembleroperation manager - Objective Last 24 Hour Vital Signs Date Time Temp Pulse Resp B/P (MAP) Pulse Ox O2 Delivery O2 Flow Rate FiO2 12/01/18 08:00 Nasal Cannula 3.0 12/01/18 07:00 95 15 115/72 (86) 100 12/01/18 06:00 96 13 121/68 (85) 100 12/01/18 05:00 100 19 120/66 (84) 100 12/01/18 04:00 97.7 101 20 133/78 (96) 100 12/01/18 04:00 Nasal Cannula 3.0 12/01/18 04:00 107 12/01/18 03:00 93 22 126/64 (84) 100 12/01/18 02:00 85 14 118/53 (74) 100 12/01/18 01:00 90 13 111/71 (84) 100 12/01/18 00:00 97.7 82 14 123/66 (85) 100 12/01/18 00:00 Nasal Cannula 3.0 12/01/18 00:00 83 11/30/18 23:00 81 14 117/64 (81) 100 11/30/18 22:00 83 15 129/68 (88) 100 11/30/18 21:00 85 13 110/55 (73) 100 11/30/18 20:51 102 11/30/18 20:00 Nasal Cannula 3.0 11/30/18 20:00 98.2 85 2 109/59 (76) 100 11/30/18 19:08 76 19 97 Nasal Cannula 3.0 32 11/30/18 19:08 97 Nasal Cannula 3.0 32 11/30/18 19:00 77 13 106/55 (72) 100 11/30/18 18:00 82 13 113/59 (77) 100 11/30/18 17:00 88 17 108/64 (79) 100 11/30/18 16:00 85 17 103/57 (72) 100 11/30/18 16:00 74 11/30/18 16:00 Nasal Cannula 3.0 11/30/18 15:00 88 13 101/53 (69) 100 11/30/18 14:00 82 13 93/50 (64) 100 11/30/18 13:00 92 13 111/58 (75) 100 11/30/18 12:00 Nasal Cannula 3.0 11/30/18 12:00 98.2 82 13 111/63 (79) 100 11/30/18 12:00 88 11/30/18 11:00 81 13 107/63 (78) 100 11/30/18 10:00 76 14 91/56 (68) 100 Status: awake Condition: critical Lungs: clear Heart: HR/BP stable Abdomen: soft, active bowel sounds Extremities: no C/C/E, edema Micro: Microbiology Date/Time Source Procedure Growth Status 11/28/18 12:50 Blood Blood Culture - Preliminary NO GROWTH AFTER 48 HOURS Resulted 11/28/18 12:40 Blood Blood Culture - Preliminary NO GROWTH AFTER 48 HOURS Resulted 11/28/18 16:50 Stool Clostridium difficile Toxin Assay - Final Complete 11/28/18 16:50 Urine,Clean Catch Urine Culture - Final NO GROWTH AFTER 48 HOURS Complete Critical Care - Subjective ROS Limited/Unobtainable: Yes Condition: critical EKG Rhythm: Sinus Rhythm FI02: 32 Sputum Amount: None Tube Feeding Amount: 35 I&O: Intake and Output 11/30/18 12/01/18 19:00 07:00 Intake Total 1555 ml 1675 ml Output Total 890 ml 880 ml Balance 665 ml 795 ml Free Water 60 ml 60 ml IV Total 900 ml 1400 ml Tube Feeding 145 ml 175 ml Other 450 ml 40 ml Output Urine Total 890 ml 880 ml # Bowel Movements 4 4 Labs: Laboratory Tests Test 11/30/18 16:20 11/30/18 18:55 12/01/18 04:18 White Blood Count 8.2 K/UL (4.8-10.8) 7.7 K/UL (4.8-10.8) 7.9 K/UL (4.8-10.8) Red Blood Count 2.52 M/UL (4.70-6.10) L 2.56 M/UL (4.70-6.10) L 2.44 M/UL (4.70-6.10) L Hemoglobin 8.0 G/DL (14.2-18.0) L 8.0 G/DL (14.2-18.0) L 7.6 G/DL (14.2-18.0) L Hematocrit 22.3 % (42.0-52.0) L 22.7 % (42.0-52.0) L 22.6 % (42.0-52.0) L Mean Corpuscular Volume 88 FL (80-99) 89 FL (80-99) 93 FL (80-99) Mean Corpuscular Hemoglobin 31.6 PG (27.0-31.0) H 31.1 PG (27.0-31.0) H 31.1 PG (27.0-31.0) H Mean Corpuscular Hemoglobin Concent 35.8 G/DL (32.0-36.0) 35.1 G/DL (32.0-36.0) 33.6 G/DL (32.0-36.0) Red Cell Distribution Width 14.3 % (11.6-14.8) 14.4 % (11.6-14.8) 16.5 % (11.6-14.8) H Platelet Count 167 K/UL (150-450) 154 K/UL (150-450) 152 K/UL (150-450) Mean Platelet Volume 5.6 FL (6.5-10.1) L 5.0 FL (6.5-10.1) L 5.3 FL (6.5-10.1) L Neutrophils (%) (Auto) 77.4 % (45.0-75.0) H 74.3 % (45.0-75.0) % (45.0-75.0) Lymphocytes (%) (Auto) 12.9 % (20.0-45.0) L 16.2 % (20.0-45.0) L % (20.0-45.0) Monocytes (%) (Auto) 7.4 % (1.0-10.0) 8.0 % (1.0-10.0) % (1.0-10.0) Eosinophils (%) (Auto) 1.5 % (0.0-3.0) 1.0 % (0.0-3.0) % (0.0-3.0) Basophils (%) (Auto) 0.9 % (0.0-2.0) 0.5 % (0.0-2.0) % (0.0-2.0) Erythrocyte Sedimentation Rate 28 MM/HR (0-20) H Reticulocyte Count 6.4 % (0.5-2.0) H Sodium Level 148 MMOL/L (136-145) H Potassium Level 2.9 MMOL/L (3.5-5.1) L Chloride Level 116 MMOL/L (98-107) H Carbon Dioxide Level 26 MMOL/L (21-32) Anion Gap 6 mmol/L (5-15) Blood Urea Nitrogen 31 mg/dL (7-18) H Creatinine 0.6 MG/DL (0.55-1.30) Estimat Glomerular Filtration Rate mL/min (>60) Glucose Level 118 MG/DL (74-106) H Calcium Level 7.6 MG/DL (8.5-10.1) L Phosphorus Level 2.8 MG/DL (2.5-4.9) Magnesium Level 1.7 MG/DL (1.8-2.4) L Total Bilirubin 0.4 MG/DL (0.2-1.0) Aspartate Amino Transf (AST/SGOT) 19 U/L (15-37) Alanine Aminotransferase (ALT/SGPT) 9 U/L (12-78) L Alkaline Phosphatase 54 U/L (46-116) Lactate Dehydrogenase 215 U/L (81-234) Total Protein 3.8 G/DL (6.4-8.2) L Albumin 1.2 G/DL (3.4-5.0) L Globulin 2.6 g/dL Albumin/Globulin Ratio 0.5 (1.0-2.7) L David Carrasquillo MD Dec 01, 2018 09:56
--- NOTE | 2018-12-01 10:47 | Diagnostic Imaging Report ---
Indication: Chest pain, post line placement Technique: One view of the chest Comparison: 9 hours earlier Findings: Interim placement right subclavian of venous catheter, tip projecting at level of the mid superior vena cava. No gross pneumothorax. Perihilar infiltrates persist. There is suggestion of increasing pleural fluid on the left. The heart is upper limits of normal in size. Impression: Interim right subclavian central venous catheter placement. No radiographically evident complication Stable bilateral perihilar infiltrates Suspect new or increasing left pleural effusion This agrees with the preliminary interpretation provided overnight by [facility] teleradiology service.
--- NOTE | 2018-12-01 11:15 | NUR ---
NURSE NOTES: Started blood transfusion. VSS Initial VS: HR 80, BP 108/68, Temp 98.4, RR 12, SPo2 100%. First 15 mins VS: HR 82, BP 114/67, Temp 98.6, RR 12, SPo2 100%. No signs of transfusion reaction noted.
--- NOTE | 2018-12-01 14:34 | Infectious Diseases Prog Note ---
Assessment/Plan Assessment/Plan Assessment: Diarrhea CDiff + GI bleed 11/29 Colonscopy : Diverticulosis Sepsis -11/30 CT abd/p: Nonspecific trace free intraperitoneal fluid. No acute abdominal or pelvic process otherwise. Fairly extensive bilateral basilar pulmonary parenchymal consolidation and atelectasis. Bilateral small pleural effusions. Colonic diverticulosis. No evidence of diverticulitis. Gastrostomy. Nonobstructive 3 mm left intrarenal calyceal calculus. Prostatomegaly. Edema of the bilateral left greater than right subcutaneous fat. Fairly extensive chronic appearing bilateral hip degenerative changes, with bilateral joint effusions versus chronic synovial proliferation. Inferior vena cava filter -11/28 BCx NTD u/a no pyuria ucx Neg Pneumonia -CXR: Patchy bilateral infiltrates versus mixed interstitial alveolar edema noted. -sp cx MRSA, MDR P. stuarti (S Amikacin, Zosyn ; I cefepime; S ertapenem) Afebrile Leukocytosis; improving MRSA bacteremia- suspect 2ry to PNA- r/o endocarditis -11/18 Bcx 2/4 MRSA , 1/ S. capitis, Diptheroids (these 2 are contaminants); BCx Neg -2d Echo:limited study (no vegetations) Probable UTI, sp Rx -u/a wbc 10-15, nit neg, leuk +2; ucx MDR ABC (S bactrim, gentamicin) Acute respiratory failure Sacral decubitus ulcer, necrotic, surrounding cellulitis GIB dementia HTN CKD COPD dysphagia s/p Gtube feeding Parkinson disease seizure disorder multiple decubiti wounds long-term resident Plan: - oral Vanco and Flagyl #3 ( may DC Flagyl soon ) -Continue empiric IV Vancomycin #14 for MRSA bacteremia and PNA; duration to follow pending FLORINA -11/29 SP Zosyn #8 -11/27 SP Bactrim #7 -11/23 SP Cefepime # -11/18 SP Levaquin x1 -f/u cx -Monitor CBC/CMP, temperatures -f/u sp cx, legionella ag urine -GT care -aspiration precautions -wound care per surgical team -Recommend FLORINA -U/a w/ reflex, CXR, Bcx x2, Subjective Allergies: Coded Allergies: No Known Allergies (Unverified , 11/18/18) Subjective afebrile no leukocytosis Bcx NTD Objective Vital Signs Last 24 Hour Vital Signs Date Time Temp Pulse Resp B/P (MAP) Pulse Ox O2 Delivery O2 Flow Rate FiO2 12/01/18 13:00 93 18 119/76 (90) 100 12/01/18 12:00 Nasal Cannula 3.0 12/01/18 12:00 89 12/01/18 12:00 88 17 128/70 (89) 100 12/01/18 11:00 84 12 112/71 (85) 100 12/01/18 10:00 89 18 104/62 (76) 100 12/01/18 09:00 98.4 97 16 108/66 (80) 100 12/01/18 08:00 Nasal Cannula 3.0 12/01/18 08:00 95 12/01/18 08:00 95 15 105/72 (83) 100 12/01/18 07:00 95 15 115/72 (86) 100 12/01/18 06:00 96 13 121/68 (85) 100 12/01/18 05:00 100 19 120/66 (84) 100 12/01/18 04:00 97.7 101 20 133/78 (96) 100 12/01/18 04:00 Nasal Cannula 3.0 12/01/18 04:00 107 12/01/18 03:00 93 22 126/64 (84) 100 12/01/18 02:00 85 14 118/53 (74) 100 12/01/18 01:00 90 13 111/71 (84) 100 12/01/18 00:00 97.7 82 14 123/66 (85) 100 12/01/18 00:00 Nasal Cannula 3.0 12/01/18 00:00 83 11/30/18 23:00 81 14 117/64 (81) 100 11/30/18 22:00 83 15 129/68 (88) 100 11/30/18 21:00 85 13 110/55 (73) 100 11/30/18 20:51 102 11/30/18 20:00 Nasal Cannula 3.0 11/30/18 20:00 98.2 85 2 109/59 (76) 100 11/30/18 19:08 76 19 97 Nasal Cannula 3.0 32 11/30/18 19:08 97 Nasal Cannula 3.0 32 11/30/18 19:00 77 13 106/55 (72) 100 11/30/18 18:00 82 13 113/59 (77) 100 11/30/18 17:00 88 17 108/64 (79) 100 11/30/18 16:00 85 17 103/57 (72) 100 11/30/18 16:00 74 11/30/18 16:00 Nasal Cannula 3.0 11/30/18 15:00 88 13 101/53 (69) 100 Height (Feet): 5 Height (Inches): 7.00 Weight (Pounds): 131 Objective General Appearance: WD/WN, no apparent distress Lines, tubes and drains: central line HEENT: normocephalic, atraumatic Neck: non-tender, normal alignment Cardiovascular/Chest: normal peripheral pulses, normal rate, regular rhythm Abdomen: normal bowel sounds, non tender Extremities: normal range of motion Skin Exam: normal pigmentation 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 Microbiology Date/Time Source Procedure Growth Status 11/28/18 16:50 Stool Clostridium difficile Toxin Assay - Final Complete 11/28/18 16:50 Urine,Clean Catch Urine Culture - Final NO GROWTH AFTER 48 HOURS Complete Laboratory Tests Test 11/30/18 16:20 11/30/18 18:55 12/01/18 04:18 White Blood Count 8.2 K/UL (4.8-10.8) 7.7 K/UL (4.8-10.8) 7.9 K/UL (4.8-10.8) Red Blood Count 2.52 M/UL (4.70-6.10) L 2.56 M/UL (4.70-6.10) L 2.44 M/UL (4.70-6.10) L Hemoglobin 8.0 G/DL (14.2-18.0) L 8.0 G/DL (14.2-18.0) L 7.6 G/DL (14.2-18.0) L Hematocrit 22.3 % (42.0-52.0) L 22.7 % (42.0-52.0) L 22.6 % (42.0-52.0) L Mean Corpuscular Volume 88 FL (80-99) 89 FL (80-99) 93 FL (80-99) Mean Corpuscular Hemoglobin 31.6 PG (27.0-31.0) H 31.1 PG (27.0-31.0) H 31.1 PG (27.0-31.0) H Mean Corpuscular Hemoglobin Concent 35.8 G/DL (32.0-36.0) 35.1 G/DL (32.0-36.0) 33.6 G/DL (32.0-36.0) Red Cell Distribution Width 14.3 % (11.6-14.8) 14.4 % (11.6-14.8) 16.5 % (11.6-14.8) H Platelet Count 167 K/UL (150-450) 154 K/UL (150-450) 152 K/UL (150-450) Mean Platelet Volume 5.6 FL (6.5-10.1) L 5.0 FL (6.5-10.1) L 5.3 FL (6.5-10.1) L Neutrophils (%) (Auto) 77.4 % (45.0-75.0) H 74.3 % (45.0-75.0) % (45.0-75.0) Lymphocytes (%) (Auto) 12.9 % (20.0-45.0) L 16.2 % (20.0-45.0) L % (20.0-45.0) Monocytes (%) (Auto) 7.4 % (1.0-10.0) 8.0 % (1.0-10.0) % (1.0-10.0) Eosinophils (%) (Auto) 1.5 % (0.0-3.0) 1.0 % (0.0-3.0) % (0.0-3.0) Basophils (%) (Auto) 0.9 % (0.0-2.0) 0.5 % (0.0-2.0) % (0.0-2.0) Erythrocyte Sedimentation Rate 28 MM/HR (0-20) H Reticulocyte Count 6.4 % (0.5-2.0) H Sodium Level 148 MMOL/L (136-145) H Potassium Level 2.9 MMOL/L (3.5-5.1) L Chloride Level 116 MMOL/L (98-107) H Carbon Dioxide Level 26 MMOL/L (21-32) Anion Gap 6 mmol/L (5-15) Blood Urea Nitrogen 31 mg/dL (7-18) H Creatinine 0.6 MG/DL (0.55-1.30) Estimat Glomerular Filtration Rate mL/min (>60) Glucose Level 118 MG/DL (74-106) H Calcium Level 7.6 MG/DL (8.5-10.1) L Phosphorus Level 2.8 MG/DL (2.5-4.9) Magnesium Level 1.7 MG/DL (1.8-2.4) L Total Bilirubin 0.4 MG/DL (0.2-1.0) Aspartate Amino Transf (AST/SGOT) 19 U/L (15-37) Alanine Aminotransferase (ALT/SGPT) 9 U/L (12-78) L Alkaline Phosphatase 54 U/L (46-116) Lactate Dehydrogenase 215 U/L (81-234) Total Protein 3.8 G/DL (6.4-8.2) L Albumin 1.2 G/DL (3.4-5.0) L Globulin 2.6 g/dL Albumin/Globulin Ratio 0.5 (1.0-2.7) L Current Medications Medications (Trade) Dose Ordered Sig/Pauline Route PRN Reason Start Time Stop Time Status Last Admin Dose Admin Acetaminophen (Tylenol) 650 mg Q4H PRN GT T>100.5 11/27/18 18:18 12/22/18 18:17 Albuterol/ Ipratropium (Albuterol/ Ipratropium) 3 ml Q4H PRN HHN Shortness of Breath 11/27/18 18:18 12/02/18 18:17 Barium Sulfate (Readi-Cat 2) 450 ml NOW PRN ORAL Radiology Procedure 11/30/18 17:30 12/02/18 17:23 Carbidopa/Levodopa (Sinemet 25/100) 1 tab THREE TIMES A DAY GT 11/27/18 18:00 12/27/18 17:59 12/01/18 13:15 Chlorhexidine Gluconate (Marycarmen-Hex 2%) 1 applic DAILY@1999 TOPIC 11/30/18 20:00 12/30/18 19:59 11/30/18 19:43 Clonidine HCl (Catapres Tab) 0.1 mg Q4H PRN GT sbp>170mmHg 11/27/18 18:18 12/22/18 18:17 Dextrose (Dextrose 50%) 25 ml Q30M PRN IV Hypoglycemia 11/27/18 18:18 12/18/18 18:17 Dextrose (Dextrose 50%) 50 ml Q30M PRN IV Hypoglycemia 11/27/18 18:18 12/18/18 18:17 Dextrose/Sodium Chloride 1,000 ml @ 75 mls/hr [id number] IV 11/29/18 15:45 12/29/18 15:44 12/01/18 05:33 Diatrizoate Meglum/ Diatrizoate Sod (Gastrografin) 30 ml NOW PRN ORAL Radiology Procedure 11/30/18 17:30 12/02/18 17:23 Iopamidol (Isovue-300 100ml) 100 ml NOW PRN INJ Radiology Procedure 11/30/18 17:30 12/02/18 17:23 Iopamidol (Isovue-370 150ml) 150 ml NOW PRN INJ Radiology Procedure 11/30/18 17:15 12/02/18 17:15 Lactobacillus Acidophilus (Culturelle) 1 tab THREE TIMES A DAY ORAL 11/29/18 18:00 12/29/18 17:59 12/01/18 13:15 Magnesium Sulfate 100 ml @ 100 mls/hr Q1H IVPB 12/01/18 08:30 12/01/18 10:29 UNV Metronidazole 100 ml @ 100 mls/hr Q6H IVPB 11/29/18 14:00 12/06/18 13:59 12/01/18 13:16 Pantoprazole 80 mg/Sodium Chloride 250 ml @ 25 mls/hr Q10H IV 11/30/18 17:00 12/30/18 16:59 12/01/18 13:16 Potassium Chloride 100 ml @ 100 mls/hr Q1HR IVPB 12/01/18 14:00 12/01/18 17:59 Vancomycin HCl (Firvanq) 125 mg FOUR TIMES A DAY ORAL 11/29/18 09:00 12/06/18 08:59 12/01/18 13:16 Vancomycin HCl (Vanco rx to dose) 1 ea DAILY PRN MISC Per rx protocol 11/27/18 18:18 12/27/18 18:17 Neva Yee M.D. Dec 01, 2018 14:33
--- NOTE | 2018-12-01 14:37 | Surgery Progress Note ---
Surgery Progress Note Subjective Procedure Performed right subclavian central venous catheter insertion Additional Comments no acute active bleed CTA noted without active bleed identified H/H noted. transfuse 1 unit prbc. Objective Last 24 Hour Vital Signs Date Time Temp Pulse Resp B/P (MAP) Pulse Ox O2 Delivery O2 Flow Rate FiO2 12/01/18 13:00 93 18 119/76 (90) 100 12/01/18 12:00 Nasal Cannula 3.0 12/01/18 12:00 89 12/01/18 12:00 88 17 128/70 (89) 100 12/01/18 11:00 84 12 112/71 (85) 100 12/01/18 10:00 89 18 104/62 (76) 100 12/01/18 09:00 98.4 97 16 108/66 (80) 100 12/01/18 08:00 Nasal Cannula 3.0 12/01/18 08:00 95 12/01/18 08:00 95 15 105/72 (83) 100 12/01/18 07:00 95 15 115/72 (86) 100 12/01/18 06:00 96 13 121/68 (85) 100 12/01/18 05:00 100 19 120/66 (84) 100 12/01/18 04:00 97.7 101 20 133/78 (96) 100 12/01/18 04:00 Nasal Cannula 3.0 12/01/18 04:00 107 12/01/18 03:00 93 22 126/64 (84) 100 12/01/18 02:00 85 14 118/53 (74) 100 12/01/18 01:00 90 13 111/71 (84) 100 12/01/18 00:00 97.7 82 14 123/66 (85) 100 12/01/18 00:00 Nasal Cannula 3.0 12/01/18 00:00 83 11/30/18 23:00 81 14 117/64 (81) 100 11/30/18 22:00 83 15 129/68 (88) 100 11/30/18 21:00 85 13 110/55 (73) 100 11/30/18 20:51 102 11/30/18 20:00 Nasal Cannula 3.0 11/30/18 20:00 98.2 85 2 109/59 (76) 100 11/30/18 19:08 76 19 97 Nasal Cannula 3.0 32 11/30/18 19:08 97 Nasal Cannula 3.0 32 11/30/18 19:00 77 13 106/55 (72) 100 11/30/18 18:00 82 13 113/59 (77) 100 11/30/18 17:00 88 17 108/64 (79) 100 11/30/18 16:00 85 17 103/57 (72) 100 11/30/18 16:00 74 11/30/18 16:00 Nasal Cannula 3.0 11/30/18 15:00 88 13 101/53 (69) 100 I&O Intake and Output 11/30/18 12/01/18 19:00 07:00 Intake Total 1555 ml 1675 ml Output Total 890 ml 880 ml Balance 665 ml 795 ml Free Water 60 ml 60 ml IV Total 900 ml 1400 ml Tube Feeding 145 ml 175 ml Other 450 ml 40 ml Output Urine Total 890 ml 880 ml # Bowel Movements 4 4 Cardiovascular: RSR Respiratory: clear, decreased breath sounds Abdomen: soft, non-tender, non-distended, decreased bowel sounds Extremities: no edema, no tenderness, no cyanosis Laboratory Tests Test 11/30/18 16:20 11/30/18 18:55 12/01/18 04:18 White Blood Count 8.2 K/UL (4.8-10.8) 7.7 K/UL (4.8-10.8) 7.9 K/UL (4.8-10.8) Red Blood Count 2.52 M/UL (4.70-6.10) L 2.56 M/UL (4.70-6.10) L 2.44 M/UL (4.70-6.10) L Hemoglobin 8.0 G/DL (14.2-18.0) L 8.0 G/DL (14.2-18.0) L 7.6 G/DL (14.2-18.0) L Hematocrit 22.3 % (42.0-52.0) L 22.7 % (42.0-52.0) L 22.6 % (42.0-52.0) L Mean Corpuscular Volume 88 FL (80-99) 89 FL (80-99) 93 FL (80-99) Mean Corpuscular Hemoglobin 31.6 PG (27.0-31.0) H 31.1 PG (27.0-31.0) H 31.1 PG (27.0-31.0) H Mean Corpuscular Hemoglobin Concent 35.8 G/DL (32.0-36.0) 35.1 G/DL (32.0-36.0) 33.6 G/DL (32.0-36.0) Red Cell Distribution Width 14.3 % (11.6-14.8) 14.4 % (11.6-14.8) 16.5 % (11.6-14.8) H Platelet Count 167 K/UL (150-450) 154 K/UL (150-450) 152 K/UL (150-450) Mean Platelet Volume 5.6 FL (6.5-10.1) L 5.0 FL (6.5-10.1) L 5.3 FL (6.5-10.1) L Neutrophils (%) (Auto) 77.4 % (45.0-75.0) H 74.3 % (45.0-75.0) % (45.0-75.0) Lymphocytes (%) (Auto) 12.9 % (20.0-45.0) L 16.2 % (20.0-45.0) L % (20.0-45.0) Monocytes (%) (Auto) 7.4 % (1.0-10.0) 8.0 % (1.0-10.0) % (1.0-10.0) Eosinophils (%) (Auto) 1.5 % (0.0-3.0) 1.0 % (0.0-3.0) % (0.0-3.0) Basophils (%) (Auto) 0.9 % (0.0-2.0) 0.5 % (0.0-2.0) % (0.0-2.0) Erythrocyte Sedimentation Rate 28 MM/HR (0-20) H Reticulocyte Count 6.4 % (0.5-2.0) H Sodium Level 148 MMOL/L (136-145) H Potassium Level 2.9 MMOL/L (3.5-5.1) L Chloride Level 116 MMOL/L (98-107) H Carbon Dioxide Level 26 MMOL/L (21-32) Anion Gap 6 mmol/L (5-15) Blood Urea Nitrogen 31 mg/dL (7-18) H Creatinine 0.6 MG/DL (0.55-1.30) Estimat Glomerular Filtration Rate mL/min (>60) Glucose Level 118 MG/DL (74-106) H Calcium Level 7.6 MG/DL (8.5-10.1) L Phosphorus Level 2.8 MG/DL (2.5-4.9) Magnesium Level 1.7 MG/DL (1.8-2.4) L Total Bilirubin 0.4 MG/DL (0.2-1.0) Aspartate Amino Transf (AST/SGOT) 19 U/L (15-37) Alanine Aminotransferase (ALT/SGPT) 9 U/L (12-78) L Alkaline Phosphatase 54 U/L (46-116) Lactate Dehydrogenase 215 U/L (81-234) Total Protein 3.8 G/DL (6.4-8.2) L Albumin 1.2 G/DL (3.4-5.0) L Globulin 2.6 g/dL Albumin/Globulin Ratio 0.5 (1.0-2.7) L Plan Problems: (1) Decubitus skin ulcer Assessment & Plan: Pt presented on admission with multiple pressure injuries. Violaceous macular rash noted to L shoulder ,Upper L side of back and lateral L chest. L upper ext edematous with scattered petechiae. Category 2 skin tear with 10% flap loss noted to L brachial. Small amt sanguineous exudate noted. Unstageable pressure injury Sacrum . Base of wound noted to have 100% mixed slough.necrosis .Edges semi-detached and erythematous. Surrounding non- blanchable erythema without elevation in skin temp ,or induration. (L)9.5cm x (W )6.5cm. NO odor or exudate noted. Full thickness pressure injury lumbar spine in close proximity to sacral pressure injury.Base of wound pink with scattered biofilm. (L)2cm x (W)1.6cm. (+ ) maceration along borders. Periwound without erythema or induration. DTPI noted to medial L heel (L)3.2cm x (W)4.5cm. Base of fluctuant with delineated erythematous borders. Periwound fluctuant with non-blanchable erythema.Additionally, an area of stable dry eschar noted to posterior L heel(L) 0.6cm x (W)0.8cm DTPI Noted to lateral R heel. Maroon discoloration that is fluctuant within base of wound.(L)2.5cm x (W)1cm. DTPI noted to medial R heel. Base of wound fluctuant and is maroon in colour (L) 1.5cm x (W)1cm. Maroon discoloration without fluctuance or induration noted to lateral R tibia , superior but in close proximity to lateral Malleolus.(L)1.4cm x (W)0.5cm. Tx.Plan: Cleanse skin tear L brachial. (Maintain Versatel Contact layer)Apply Silvasorb Gel. Cover with Optifoam drsg. Change every 7 days and prn. Cleanse Sacral wound with Saline. Apply Therahoney. Apply Moisture Barrier Paste periwound. Cover with Optifoam drsg. Change every 3 days and prn. Cleanse wound Lumbar spine with saline. Apply Therahoney. Apply Cavilon Skin Barrier periwound. Cover with Optifoam drsg. Change every 3 days and prn. Apply Cavilon Skin Barrier to Lateral R tibia, R heel and L heel. Cover each site with Optifoam drsg. Change every 7 days and prn. APM/FERNANDEZ mattress overlay. Reposition at least every 2hours or as tolerated. Off-load heels with pillow. (2) Acute DVT (deep venous thrombosis) (3) HCAP (healthcare-associated pneumonia) (4) UTI (urinary tract infection) (5) Anemia, chronic disease (6) Sepsis Assessment & Plan: acute gi bleed seems to have resolved now transfuse prn trend labs cont abx appreciate ID input (7) Feeding by G-tube Assessment & Plan: DAILY ESTIMATED NEEDS: Needs based on Sepsis, wound 60.5kg 25-35 kcals/kg 4306-8525 total kcals 1.25-2 g protein/kg 76-121 g total protein 25-30 mL/kg 2990-5458 total fluid mLs NUTRITION DIAGNOSIS: 1) Increased kcal and pro needs r/t wound healing as evidenced by pt w/ sacral unstageable wound and L heel DTPI. 2) Swallowing difficulty r/t dysphagia as evidenced by pt w/ Parkinson's dz, GT dependent. ENTERAL NUTRITION RECOMMENDATIONS: Glucerna 1.2 @60ml/hr x24 hrs to provide 1440ml, 1728 kcal, 86g pro, 1159ml free H2O - As medically able, rec to start Glucerna 1.2 @20ml/hr, advance as tolerated 10ml q4-6 hrs to goal. - Flush per MD/ HOB over 30 degrees ADDITIONAL RECOMMENDATIONS: 1) Per SNF: 5'6" ht, 133 lbs wt 2) CARGO CHECKER eval if oral grat is appropriate 3) Wound care: Add YOLI BID via GT + VIT C 250mg BID 4) Hypoglycemics prn/ niss (8) COPD (chronic obstructive pulmonary disease) (9) Alzheimer's dementia (10) Parkinson disease (11) Seizures (12) Hyponatremia (13) Hemorrhagic shocks (14) Severe protein-calorie malnutrition (15) Lower GI bleed Assessment & Plan: Acute lower GI bleed likely due combination of diverticulosis and Eliquis. Eliquis has been stopped for 48 hours now and bleeding seems to have resolved. Patient has been transfused and currently hemoglobin stable. Colonoscopy today performed and no active bleeding noted. Trend labs. We will continue to monitor. seems to have stopped now trend h/h (16) C. difficile colitis Andrew Eugene Dec 01, 2018 14:37
--- NOTE | 2018-12-01 14:45 | NUR ---
NURSE NOTES: Patient still having large bloody diarrhea, turned and repositioned. Blood transfusion completed. VSS. HR 83, BP 112/67, RR 28, Spo2 100%, T 98.7. No signs of transfusion rxn noted. Patient sleeping comfortably. Addendum: 12/01/18 at 1451 by PILAR PEREZ RN Notified Dr. Dallas and Dr. Eugene regarding bloody diarrhea. Will draw CBC in 2 hours, no other orders.
--- NOTE | 2018-12-01 15:35 | NUR ---
NURSE NOTES: Patient is to have EGD tomorrow per Dr. Dallas. Received orders to put patient NPO at midnight. Consent to be signed by MD as patient is unrepresented.
--- NOTE | 2018-12-01 16:00 | Progress Note ---
DATE: 12/01/2018 SUBJECTIVE: This is a 73-year-old male patient with sepsis and pneumonia. He has got a decline in cognition below the baseline. MENTAL STATUS EXAMINATION: This is a 73-year-old male. Appearance is disheveled. Attitude, irritable and agitated. Affect, guarded and restricted. Intellect, poor. Mood, depressed and anxious. Motor activity, psychomotor agitation. Attention span is poor. Orientation x2. Speech is low volume, slurred. Thought process, disorganized and illogical. Insight and judgment is poor. DIAGNOSIS: Major depressive disorder, mild, recurrent with psychotic features, rule out dementia with psychosis. PLAN: Treat him with Ativan 1 mg every 6 hours p.r.n. anxiety and agitation, Remeron 15 mg per G-tube nightly, and Aricept 10 mg per G-tube daily. A 20 minutes of reality-based supportive psychotherapy provided. 20 minutes of cognitive behavioral therapy provided to help him identify automatic negative thoughts and convert those negative thoughts to more positive thoughts to reduce depression, anxiety, and mood lability. Chart reviewed. Discussed with staff. Seen and assessed in his room. Laith Mason M.D. DR: ELLYN JOB#: [id number] CC:
--- NOTE | 2018-12-01 16:04 | NUR ---
Social Service Note Patient continues to require medical intervention. Patient is off bed hold. Patient may require other facility options once appropriate for discharge.
--- NOTE | 2018-12-01 16:17 | NUR ---
CASE MANAGEMENT:REVIEW 12/01/2018 SI: SEPSIS. PNEUMONIA. ANEMIA~ S/P 4 UNIT SINCE 11/28/2018 T 98.6 HR 88 RR 18 B/P 112/71 SATS 100% ON 3L/NC HGB 7.6 HCT 22.6 NA 148 K 2.9 CL 116 BUN 31 GLU 118 CA 7.6 MG 1.7 ALT 9 IS: BACTRIM PO Q12 VANCO PO Q12H IV CEFEPIME BID PROTONIX IV 25 mL/HR IVF @ 75 mL/HR KCL IV Q2H FLAGYL IV Q6H : ICU STATUS
--- NOTE | 2018-12-01 16:52 | Nephrology Progress Note ---
Assessment/Plan Problem List: (1) Hyponatremia Assessment: Na higher (2) UTI (urinary tract infection) (3) Anemia, chronic disease (4) Alzheimer's dementia (5) Parkinson disease (6) C. difficile colitis Assessment Low Na corrected GI bleed transfused other conditions Pneumonia UTI, has grewal bacteremia sacral decub dementia HTN Sz disorder Parkinsons severe Anemia Plan K and Mag supplement Albumin bolus and transfusion for low BP as needed stop HypoTonic IV solution start maintenence IV fluid Urine studies Transfusion as needed Per orders roberto carlos khalil Subjective ROS Limited/Unobtainable: No Constitutional: Reports: malaise, weakness Objective Objective Last 24 Hour Vital Signs Date Time Temp Pulse Resp B/P (MAP) Pulse Ox O2 Delivery O2 Flow Rate FiO2 12/01/18 16:00 98.6 83 18 112/71 (85) 100 12/01/18 16:00 88 12/01/18 16:00 Nasal Cannula 3.0 12/01/18 15:00 98.8 82 18 114/66 (82) 100 12/01/18 14:00 83 18 112/60 (77) 100 12/01/18 13:00 93 18 119/76 (90) 100 12/01/18 12:00 Nasal Cannula 3.0 12/01/18 12:00 89 12/01/18 12:00 88 17 128/70 (89) 100 12/01/18 11:00 84 12 112/71 (85) 100 12/01/18 10:00 89 18 104/62 (76) 100 12/01/18 09:00 98.4 97 16 108/66 (80) 100 12/01/18 08:00 Nasal Cannula 3.0 12/01/18 08:00 95 12/01/18 08:00 95 15 105/72 (83) 100 12/01/18 07:00 95 15 115/72 (86) 100 12/01/18 06:00 96 13 121/68 (85) 100 12/01/18 05:00 100 19 120/66 (84) 100 12/01/18 04:00 97.7 101 20 133/78 (96) 100 12/01/18 04:00 Nasal Cannula 3.0 12/01/18 04:00 107 12/01/18 03:00 93 22 126/64 (84) 100 12/01/18 02:00 85 14 118/53 (74) 100 12/01/18 01:00 90 13 111/71 (84) 100 12/01/18 00:00 97.7 82 14 123/66 (85) 100 12/01/18 00:00 Nasal Cannula 3.0 12/01/18 00:00 83 11/30/18 23:00 81 14 117/64 (81) 100 11/30/18 22:00 83 15 129/68 (88) 100 11/30/18 21:00 85 13 110/55 (73) 100 11/30/18 20:51 102 11/30/18 20:00 Nasal Cannula 3.0 11/30/18 20:00 98.2 85 2 109/59 (76) 100 11/30/18 19:08 76 19 97 Nasal Cannula 3.0 32 11/30/18 19:08 97 Nasal Cannula 3.0 32 11/30/18 19:00 77 13 106/55 (72) 100 11/30/18 18:00 82 13 113/59 (77) 100 11/30/18 17:00 88 17 108/64 (79) 100 Intake and Output 11/30/18 12/01/18 18:59 06:59 Intake Total 1555 ml 1615 ml Output Total 870 ml 890 ml Balance 685 ml 725 ml Free Water 60 ml 60 ml IV Total 900 ml 1375 ml Tube Feeding 145 ml 140 ml Other 450 ml 40 ml Output Urine Total 870 ml 890 ml # Bowel Movements 4 4 Laboratory Tests 11/30/18 18:55: White Blood Count 7.7, Red Blood Count 2.56L, Hemoglobin 8.0L, Hematocrit 22.7L , Mean Corpuscular Volume 89, Mean Corpuscular Hemoglobin 31.1H, Mean Corpuscular Hemoglobin Concent 35.1, Red Cell Distribution Width 14.4, Platelet Count 154, Mean Platelet Volume 5.0L, Neutrophils (%) (Auto) 74.3, Lymphocytes ( %) (Auto) 16.2L, Monocytes (%) (Auto) 8.0, Eosinophils (%) (Auto) 1.0, Basophils (%) (Auto) 0.5 12/01/18 04:18: White Blood Count 7.9, Red Blood Count 2.44L, Hemoglobin 7.6L, Hematocrit 22.6L , Mean Corpuscular Volume 93, Mean Corpuscular Hemoglobin 31.1H, Mean Corpuscular Hemoglobin Concent 33.6, Red Cell Distribution Width 16.5H, Platelet Count 152, Mean Platelet Volume 5.3L, Neutrophils (%) (Auto) , Lymphocytes (%) (Auto) , Monocytes (%) (Auto) , Eosinophils (%) (Auto) , Basophils (%) (Auto) , Erythrocyte Sedimentation Rate 28H, Reticulocyte Count 6.4H, Sodium Level 148H, Potassium Level 2.9L, Chloride Level 116H, Carbon Dioxide Level 26, Anion Gap 6, Blood Urea Nitrogen 31H, Creatinine 0.6, Estimat Glomerular Filtration Rate , Glucose Level 118H, Calcium Level 7.6L, Phosphorus Level 2.8, Magnesium Level 1.7L, Total Bilirubin 0.4, Aspartate Amino Transf ( AST/SGOT) 19, Alanine Aminotransferase (ALT/SGPT) 9L, Alkaline Phosphatase 54, Lactate Dehydrogenase 215, Total Protein 3.8L, Albumin 1.2L, Globulin 2.6, Albumin/Globulin Ratio 0.5L Height (Feet): 5 Height (Inches): 7.00 Weight (Pounds): 131 General Appearance: no apparent distress Cardiovascular: normal rate Respiratory/Chest: decreased breath sounds Abdomen: soft, distended Objective no change Kendall Trinidad MD Dec 01, 2018 16:52
[2018-12-01 17:38] LABS: HEMATOCRIT 20.1 % (42.0-52.0); MEAN CORPUSCULAR VOLUME 91 FL (80-99); PLATELET COUNT 111 K/UL (150-450); RED CELL DISTRIBUTION WIDTH 14.2 % (11.6-14.8); WHITE BLOOD COUNT 7.5 K/UL (4.8-10.8)
--- NOTE | 2018-12-01 18:10 | Cardiac Electrophysiology PN ---
Assessment/Plan Assessment/Plan 1. Sinus tach due to anemia and sepsis and beta danya withdrawal 2. Hypertension. Echo EF 55% 3. Acute right leg DVT and Bilateral UE DVT. S/P IVC filter . Off Eliquis for severe anemia 4. Staph aureous bacteremia. Dr. Yee who recommended FLORINA pending consent and patient stability 5. Parkinsonism. 6. COPD. 7. UTI. 8. Severe anemia and rectal bleed.S/P Colonoscopy on 11/20/18 and 11/29/18 and transfusion No obvious source. Scheduled for EGD tomorrow 9. Seizure disorder. 10. S/P PEG DW RN Subjective Subjective In sinus tach. In ICU and still has recurrent GI bleed. Off pressors. EGD scheduled for tomorrow Objective Last 24 Hour Vital Signs Date Time Temp Pulse Resp B/P (MAP) Pulse Ox O2 Delivery O2 Flow Rate FiO2 12/01/18 16:00 98.6 83 18 112/71 (85) 100 12/01/18 16:00 88 12/01/18 16:00 Nasal Cannula 3.0 12/01/18 15:00 98.8 82 18 114/66 (82) 100 12/01/18 14:00 83 18 112/60 (77) 100 12/01/18 13:00 93 18 119/76 (90) 100 12/01/18 12:00 Nasal Cannula 3.0 12/01/18 12:00 89 12/01/18 12:00 88 17 128/70 (89) 100 12/01/18 11:00 84 12 112/71 (85) 100 12/01/18 10:00 89 18 104/62 (76) 100 12/01/18 09:00 98.4 97 16 108/66 (80) 100 12/01/18 08:00 Nasal Cannula 3.0 12/01/18 08:00 95 12/01/18 08:00 95 15 105/72 (83) 100 12/01/18 07:00 95 15 115/72 (86) 100 12/01/18 06:00 96 13 121/68 (85) 100 12/01/18 05:00 100 19 120/66 (84) 100 12/01/18 04:00 97.7 101 20 133/78 (96) 100 12/01/18 04:00 Nasal Cannula 3.0 12/01/18 04:00 107 12/01/18 03:00 93 22 126/64 (84) 100 12/01/18 02:00 85 14 118/53 (74) 100 12/01/18 01:00 90 13 111/71 (84) 100 12/01/18 00:00 97.7 82 14 123/66 (85) 100 12/01/18 00:00 Nasal Cannula 3.0 12/01/18 00:00 83 11/30/18 23:00 81 14 117/64 (81) 100 11/30/18 22:00 83 15 129/68 (88) 100 11/30/18 21:00 85 13 110/55 (73) 100 11/30/18 20:51 102 11/30/18 20:00 Nasal Cannula 3.0 11/30/18 20:00 98.2 85 2 109/59 (76) 100 11/30/18 19:08 76 19 97 Nasal Cannula 3.0 32 11/30/18 19:08 97 Nasal Cannula 3.0 32 11/30/18 19:00 77 13 106/55 (72) 100 Intake and Output 11/30/18 12/01/18 18:59 06:59 Intake Total 1555 ml 1615 ml Output Total 870 ml 890 ml Balance 685 ml 725 ml Free Water 60 ml 60 ml IV Total 900 ml 1375 ml Tube Feeding 145 ml 140 ml Other 450 ml 40 ml Output Urine Total 870 ml 890 ml # Bowel Movements 4 4 Laboratory Tests Test 11/30/18 18:55 12/01/18 04:18 12/01/18 17:30 White Blood Count 7.7 K/UL (4.8-10.8) 7.9 K/UL (4.8-10.8) 7.5 K/UL (4.8-10.8) Red Blood Count 2.56 M/UL (4.70-6.10) L 2.44 M/UL (4.70-6.10) L 2.20 M/UL (4.70-6.10) L Hemoglobin 8.0 G/DL (14.2-18.0) L 7.6 G/DL (14.2-18.0) L 7.0 G/DL (14.2-18.0) L Hematocrit 22.7 % (42.0-52.0) L 22.6 % (42.0-52.0) L 20.1 % (42.0-52.0) L Mean Corpuscular Volume 89 FL (80-99) 93 FL (80-99) 91 FL (80-99) Mean Corpuscular Hemoglobin 31.1 PG (27.0-31.0) H 31.1 PG (27.0-31.0) H 31.9 PG (27.0-31.0) H Mean Corpuscular Hemoglobin Concent 35.1 G/DL (32.0-36.0) 33.6 G/DL (32.0-36.0) 35.0 G/DL (32.0-36.0) Red Cell Distribution Width 14.4 % (11.6-14.8) 16.5 % (11.6-14.8) H 14.2 % (11.6-14.8) Platelet Count 154 K/UL (150-450) 152 K/UL (150-450) 111 K/UL (150-450) L Mean Platelet Volume 5.0 FL (6.5-10.1) L 5.3 FL (6.5-10.1) L 4.9 FL (6.5-10.1) L Neutrophils (%) (Auto) 74.3 % (45.0-75.0) % (45.0-75.0) % (45.0-75.0) Lymphocytes (%) (Auto) 16.2 % (20.0-45.0) L % (20.0-45.0) % (20.0-45.0) Monocytes (%) (Auto) 8.0 % (1.0-10.0) % (1.0-10.0) % (1.0-10.0) Eosinophils (%) (Auto) 1.0 % (0.0-3.0) % (0.0-3.0) % (0.0-3.0) Basophils (%) (Auto) 0.5 % (0.0-2.0) % (0.0-2.0) % (0.0-2.0) Erythrocyte Sedimentation Rate 28 MM/HR (0-20) H Reticulocyte Count 6.4 % (0.5-2.0) H Sodium Level 148 MMOL/L (136-145) H Potassium Level 2.9 MMOL/L (3.5-5.1) L Chloride Level 116 MMOL/L (98-107) H Carbon Dioxide Level 26 MMOL/L (21-32) Anion Gap 6 mmol/L (5-15) Blood Urea Nitrogen 31 mg/dL (7-18) H Creatinine 0.6 MG/DL (0.55-1.30) Estimat Glomerular Filtration Rate mL/min (>60) Glucose Level 118 MG/DL (74-106) H Calcium Level 7.6 MG/DL (8.5-10.1) L Phosphorus Level 2.8 MG/DL (2.5-4.9) Magnesium Level 1.7 MG/DL (1.8-2.4) L Total Bilirubin 0.4 MG/DL (0.2-1.0) Aspartate Amino Transf (AST/SGOT) 19 U/L (15-37) Alanine Aminotransferase (ALT/SGPT) 9 U/L (12-78) L Alkaline Phosphatase 54 U/L (46-116) Lactate Dehydrogenase 215 U/L (81-234) Total Protein 3.8 G/DL (6.4-8.2) L Albumin 1.2 G/DL (3.4-5.0) L Globulin 2.6 g/dL Albumin/Globulin Ratio 0.5 (1.0-2.7) L Neutrophils % (Manual) Pending Lymphocytes % (Manual) Pending Platelet Estimate Pending Platelet Morphology Pending Objective HEAD AND NECK: No JVD. LUNGS: Decreased breath sounds. CARDIOVASCULAR: Regular S1 and S2 with no gallop . ABDOMEN: Soft. G-tube intact. EXTREMITIES: Upper extremity and LE edema. Earl Washington MD Dec 01, 2018 18:10
--- NOTE | 2018-12-01 19:08 | NUR ---
HAND-OFF: Report given to MONA Killian.
[2018-12-01] MEDS: Dyna-Hex 2% Top Sol 2oz TOPIC SCH (19:39)
--- NOTE | 2018-12-01 19:40 | NUR ---
NURSE NOTES: PATIENT LETHARGIC, DID NOT FOLLOWED COMMANDS, ON O2 3LPM VIA NC, O2 SATURATION 100% NOTED, ABDOMEN SOFT, G TUBE INTACT AND PATENT, ON GOING GLUCERNA 1.2 AT 45ML/HR STATUS, NO RESIDUE NOTED, KEPT HOB 30 DEGREES, F/C INTACT AND PATENT, LIGHT WESLY COLOR URINE OUT,TLC TO RIGHT SUBCLAVIAN, INTACT AND PATENT, ONGOING D5W NS AT 75ML/HR AND PROTONIX 8MG/HR VIA TLC, ON P200 BED, MADE LOWER BED POSITION AND PROVIDED CALL LIGHT WITHIN REACH, WILL CONTINUE TO MONITOR.
--- NOTE | 2018-12-01 20:45 | NUR ---
NURSE NOTES: STARTED 2-1, 1 UNIT PRBC ([id number]) AFTER VERIFIED 2 NURSES, WILL CONTINUE TO MONITOR.
[2018-12-01] MEDS ORDERED: D5NS 1000ml IV ONE (20:59)
[2018-12-01] MEDS ORDERED: Tubing IV Secondary IV ONE (20:59)
[2018-12-01] MEDS ORDERED: NS 275ml ONE (20:59)
--- NOTE | 2018-12-01 21:00 | NUR ---
NURSE NOTES: NO SIDE REACTION NOTED AND VITAL SIGN STABLE, PATIENT CALM STATUS, WILL CONTINUE TO MONITOR.
--- NOTE | 2018-12-01 21:06 | General Progress Note ---
Assessment/Plan Problem List: (1) Hyponatremia ICD Codes: E87.1 - Hypo-osmolality and hyponatremia SNOMED: 09156400 (2) Acute DVT (deep venous thrombosis) ICD Codes: I82.409 - Acute embolism and thrombosis of unspecified deep veins of unspecified lower extremity SNOMED: 580198119030034 (3) Decubitus skin ulcer ICD Codes: L89.90 - Pressure ulcer of unspecified site, unspecified stage SNOMED: 238726289 (4) Severe protein-calorie malnutrition ICD Codes: E43 - Unspecified severe protein-calorie malnutrition SNOMED: 501780995, 948797101, 581075112 (5) C. difficile colitis ICD Codes: A04.72 - Enterocolitis due to Clostridium difficile, not specified as recurrent SNOMED: 947654494 (6) Lower GI bleed ICD Codes: K92.2 - Gastrointestinal hemorrhage, unspecified SNOMED: 17098145 (7) UTI (urinary tract infection) ICD Codes: N39.0 - Urinary tract infection, site not specified SNOMED: 35913039, 405950213 Qualifiers: Qualified Codes: N30.00 - Acute cystitis without hematuria (8) HCAP (healthcare-associated pneumonia) ICD Codes: J18.9 - Pneumonia, unspecified organism SNOMED: 953383217, 592328674 (9) Anemia, chronic disease ICD Codes: D63.8 - Anemia in other chronic diseases classified elsewhere SNOMED: 726328953, 850809186 (10) Sepsis ICD Codes: A41.9 - Sepsis, unspecified organism SNOMED: 78595283, 640961560 Qualifiers: Qualified Codes: A41.9 - Sepsis, unspecified organism (11) COPD (chronic obstructive pulmonary disease) ICD Codes: J44.9 - Chronic obstructive pulmonary disease, unspecified SNOMED: 65900459 (12) Parkinson disease ICD Codes: G20 - Parkinson's disease SNOMED: 77505366 (13) Seizures ICD Codes: R56.9 - Unspecified convulsions SNOMED: 71034340 Status: unchanged Assessment/Plan: anemia sepsis and pna not improving poor prognosis moniter for bleeding copd no wheezing not hypoxic reviewed chart and labs and meds Subjective ROS Limited/Unobtainable: Yes Allergies: Coded Allergies: No Known Allergies (Unverified , 11/18/18) Objective Last 24 Hour Vital Signs Date Time Temp Pulse Resp B/P (MAP) Pulse Ox O2 Delivery O2 Flow Rate FiO2 12/01/18 20:00 98.6 91 18 117/71 (86) 100 12/01/18 19:49 100 Nasal Cannula 3.0 32 12/01/18 19:49 92 18 100 Nasal Cannula 3.0 32 12/01/18 19:16 88 12/01/18 19:00 91 20 114/81 (92) 100 12/01/18 18:00 93 16 108/66 (80) 100 12/01/18 17:00 92 15 116/68 (84) 100 12/01/18 16:00 98.6 83 18 112/71 (85) 100 12/01/18 16:00 88 12/01/18 16:00 Nasal Cannula 3.0 12/01/18 15:00 98.8 82 18 114/66 (82) 100 12/01/18 14:00 83 18 112/60 (77) 100 12/01/18 13:00 93 18 119/76 (90) 100 12/01/18 12:00 Nasal Cannula 3.0 12/01/18 12:00 89 12/01/18 12:00 88 17 128/70 (89) 100 12/01/18 11:00 84 12 112/71 (85) 100 12/01/18 10:00 89 18 104/62 (76) 100 12/01/18 09:00 98.4 97 16 108/66 (80) 100 12/01/18 08:00 Nasal Cannula 3.0 12/01/18 08:00 95 12/01/18 08:00 95 15 105/72 (83) 100 12/01/18 07:00 95 15 115/72 (86) 100 12/01/18 06:00 96 13 121/68 (85) 100 12/01/18 05:00 100 19 120/66 (84) 100 12/01/18 04:00 97.7 101 20 133/78 (96) 100 12/01/18 04:00 Nasal Cannula 3.0 12/01/18 04:00 107 12/01/18 03:00 93 22 126/64 (84) 100 12/01/18 02:00 85 14 118/53 (74) 100 12/01/18 01:00 90 13 111/71 (84) 100 12/01/18 00:00 97.7 82 14 123/66 (85) 100 12/01/18 00:00 Nasal Cannula 3.0 12/01/18 00:00 83 11/30/18 23:00 81 14 117/64 (81) 100 11/30/18 22:00 83 15 129/68 (88) 100 Intake and Output 11/30/18 12/01/18 18:59 06:59 Intake Total 1555 ml 1615 ml Output Total 870 ml 890 ml Balance 685 ml 725 ml Free Water 60 ml 60 ml IV Total 900 ml 1375 ml Tube Feeding 145 ml 140 ml Other 450 ml 40 ml Output Urine Total 870 ml 890 ml # Bowel Movements 4 4 Laboratory Tests 12/01/18 04:18: White Blood Count 7.9, Red Blood Count 2.44L, Hemoglobin 7.6L, Hematocrit 22.6L , Mean Corpuscular Volume 93, Mean Corpuscular Hemoglobin 31.1H, Mean Corpuscular Hemoglobin Concent 33.6, Red Cell Distribution Width 16.5H, Platelet Count 152, Mean Platelet Volume 5.3L, Neutrophils (%) (Auto) , Lymphocytes (%) (Auto) , Monocytes (%) (Auto) , Eosinophils (%) (Auto) , Basophils (%) (Auto) , Erythrocyte Sedimentation Rate 28H, Reticulocyte Count 6.4H, Sodium Level 148H, Potassium Level 2.9L, Chloride Level 116H, Carbon Dioxide Level 26, Anion Gap 6, Blood Urea Nitrogen 31H, Creatinine 0.6, Estimat Glomerular Filtration Rate , Glucose Level 118H, Calcium Level 7.6L, Phosphorus Level 2.8, Magnesium Level 1.7L, Total Bilirubin 0.4, Aspartate Amino Transf ( AST/SGOT) 19, Alanine Aminotransferase (ALT/SGPT) 9L, Alkaline Phosphatase 54, Lactate Dehydrogenase 215, Total Protein 3.8L, Albumin 1.2L, Globulin 2.6, Albumin/Globulin Ratio 0.5L 12/01/18 17:30: White Blood Count 7.5, Red Blood Count 2.20L, Hemoglobin 7.0L, Hematocrit 20.1L , Mean Corpuscular Volume 91, Mean Corpuscular Hemoglobin 31.9H, Mean Corpuscular Hemoglobin Concent 35.0, Red Cell Distribution Width 14.2, Platelet Count 111L, Mean Platelet Volume 4.9L, Neutrophils (%) (Auto) , Lymphocytes (%) (Auto) , Monocytes (%) (Auto) , Eosinophils (%) (Auto) , Basophils (%) (Auto) , Differential Total Cells Counted 100, Neutrophils % (Manual) 78H, Lymphocytes % (Manual) 14L, Monocytes % (Manual) 3, Eosinophils % (Manual) 2, Basophils % ( Manual) 1, Band Neutrophils 2, Platelet Estimate DecreasedL, Platelet Morphology Normal, Polychromasia 1+, Hypochromasia 1+, Anisocytosis 1+ Height (Feet): 5 Height (Inches): 7.00 Weight (Pounds): 131 Neck: supple Cardiovascular: normal rate Respiratory/Chest: lungs clear Abdomen: soft Yohana Garay MD Dec 01, 2018 21:06
--- NOTE | 2018-12-01 23:45 | NUR ---
NURSE NOTES: FINISHED 2-1 PRBC TRANSFUSION, NO SIDE REACTION NOTED.
[2018-12-02] VITALS (26 sets, daily range): BP systolic 77–141; BP diastolic 54–97
--- NOTE | 2018-12-02 00:10 | NUR ---
NURSE NOTES: STARTED 2-2, 1 UNIT PRBC ([id number]) AFTER VERIFIED 2 NURSES, WILL CONTINUE TO MONITOR.
--- NOTE | 2018-12-02 00:25 | NUR ---
NURSE NOTES: NO SIDE REACTION NOTED.
--- NOTE | 2018-12-02 03:00 | NUR ---
NURSE NOTES: DARK BLOODY DIARRHEA NOTED, MORNING CARE WAS DONE, KEPT NPO POST MN, WILL CONTINUE TO MONITOR.
--- NOTE | 2018-12-02 03:05 | NUR ---
NURSE NOTES: FINISHED BLOOD TRANSFUSION, NO SIDE REACTION NOTED.
--- NOTE | 2018-12-02 05:00 | NUR ---
NURSE NOTES: NO PAIN OR DISTRESS NOTED AT THIS TIME.
[2018-12-02 06:09] LABS: BASOPHILS % (AUTO) 0.6 % (0.0-2.0); EOSINOPHILS % (AUTO) 2.8 % (0.0-3.0); HEMATOCRIT 33.5 % (42.0-52.0); HEMOGLOBIN 11.5 G/DL (14.2-18.0); LYMPHOCYTES % (AUTO) 10.8 % (20.0-45.0); MEAN CORPUSCULAR VOLUME 93 FL (80-99); MONOCYTES % (AUTO) 6.9 % (1.0-10.0); NEUTROPHILS % (AUTO) 78.9 % (45.0-75.0); PLATELET COUNT 129 K/UL (150-450); RED BLOOD COUNT 3.62 M/UL (4.70-6.10); RED CELL DISTRIBUTION WIDTH 14.8 % (11.6-14.8); WHITE BLOOD COUNT 8.8 K/UL (4.8-10.8)
[2018-12-02 06:13] LABS: INR 1.1 (0.9-1.1)
[2018-12-02 06:27] LABS: ALANINE AMINOTRANSFERASE 9 U/L (12-78); ALBUMIN 1.3 G/DL (3.4-5.0); ALBUMIN/GLOBULIN RATIO 0.5 (1.0-2.7); ALKALINE PHOSPHATASE 57 U/L (46-116); ANION GAP 5 mmol/L (5-15); ASPARTATE AMINO TRANSFERASE 13 U/L (15-37); BILIRUBIN,TOTAL 0.5 MG/DL (0.2-1.0); BLOOD UREA NITROGEN 17 mg/dL (7-18); CALCIUM 7.7 MG/DL (8.5-10.1); CARBON DIOXIDE 25 MMOL/L (21-32); CHLORIDE 122 MMOL/L (98-107); CREATININE 0.5 MG/DL (0.55-1.30); PHOSPHORUS 2.7 MG/DL (2.5-4.9); POTASSIUM 3.6 MMOL/L (3.5-5.1); SODIUM 152 MMOL/L (136-145)
--- NOTE | 2018-12-02 06:30 | NUR ---
NURSE NOTES: KEPT NPO POST MN, NO ACUTE DISTRESS NOTED AT THIS SHIFT.
--- NOTE | 2018-12-02 07:15 | NUR ---
HAND-OFF: Report given to MONA CARNES.
--- NOTE | 2018-12-02 07:16 | NUR ---
NURSE NOTES: RECEIVED PATIENT FROM Dunia DAWN RN. PATIENT IS SEEN LYING IN BED ASLEEP, NONVERBAL BUT ABLE TO OPEN EYES. HOOKED TO SCOW HAND. ON 3L NC. NO SIGNS OF DISTRESS OF THE MOMENT. GT IN PLACE. NPO FOR THE SCHEDULED PROCEDURE TODAY. NOTED BUNDY CONNECTED TO BAG, PATENT AND DRAINING URINE. SKIN ALTERATION NOTED. ON OVERLAY MATTRESS. NOTED GENERALIZED EDEMA. NOTED R SC TLC WITH IVF RUNNING D5 NS AT 75ML/HR AND PROTONIX DRIP AT 25ML/HR. CALL LIGHT WITHIN REACH. SIDE RAILS UP. BED AT LOWEST POSITION. WILL CONTINUE TO MONITOR.
[2018-12-02] MEDS: Lactobacillus-GG tablet ORAL SCH ×3 (08:25→18:00)
[2018-12-02] MEDS: Levodopa/Carbidopa 25/100 tab GT SCH ×3 (08:25→18:00)
[2018-12-02] MEDS: Vancomycin oral 125mg/2.5ml ORAL SCH ×4 (08:26→21:00)
[2018-12-02] MEDS: Pantoprazole 80 MG in NS 250 ML IV SCH ×2 (08:26→20:26)
--- NOTE | 2018-12-02 08:29 | General Progress Note ---
Assessment/Plan Problem List: (1) Seizures ICD Codes: R56.9 - Unspecified convulsions SNOMED: 52738615 (2) Parkinson disease ICD Codes: G20 - Parkinson's disease SNOMED: 83167039 (3) Alzheimer's dementia ICD Codes: G30.9 - Alzheimer's disease, unspecified; F02.80 - Dementia in other diseases classified elsewhere without behavioral disturbance SNOMED: 14427526 (4) COPD (chronic obstructive pulmonary disease) ICD Codes: J44.9 - Chronic obstructive pulmonary disease, unspecified SNOMED: 86583297 (5) Feeding by G-tube ICD Codes: Z93.1 - Gastrostomy status SNOMED: 871749926, 783721672, 105430088 (6) Anemia, chronic disease ICD Codes: D63.8 - Anemia in other chronic diseases classified elsewhere SNOMED: 678586718, 344489466 Status: unchanged Assessment/Plan: minimal drop in H&H over night per nurses some dark stool but no BRBPR colonoscopy done on Saturday transfuse prn protonix drip monitor H&H plan EGD for today. Patient has no family for consent. Will proceed with 2 MD consent keep NPO for today Subjective ROS Limited/Unobtainable: No Allergies: Coded Allergies: No Known Allergies (Unverified , 11/18/18) Objective Last 24 Hour Vital Signs Date Time Temp Pulse Resp B/P (MAP) Pulse Ox O2 Delivery O2 Flow Rate FiO2 12/02/18 07:00 87 15 133/87 (102) 100 12/02/18 06:00 82 12 117/74 (88) 100 12/02/18 05:00 88 13 121/75 (90) 100 12/02/18 04:00 Nasal Cannula 3.0 12/02/18 04:00 98.6 85 16 131/70 (90) 100 12/02/18 03:26 88 12/02/18 03:00 83 19 128/73 (91) 100 12/02/18 02:00 87 16 138/78 (98) 100 12/02/18 01:00 89 15 141/75 (97) 100 12/02/18 00:00 98.5 85 13 126/81 (96) 100 12/02/18 00:00 Nasal Cannula 3.0 12/01/18 23:06 93 12/01/18 23:00 93 13 128/77 (94) 100 12/01/18 22:00 90 15 126/70 (88) 100 12/01/18 21:00 92 17 115/68 (84) 100 12/01/18 20:00 Nasal Cannula 3.0 12/01/18 20:00 98.6 91 18 117/71 (86) 100 12/01/18 19:49 100 Nasal Cannula 3.0 32 12/01/18 19:49 92 18 100 Nasal Cannula 3.0 32 12/01/18 19:16 88 12/01/18 19:00 91 20 114/81 (92) 100 12/01/18 18:00 93 16 108/66 (80) 100 12/01/18 17:00 92 15 116/68 (84) 100 12/01/18 16:00 98.6 83 18 112/71 (85) 100 12/01/18 16:00 88 12/01/18 16:00 Nasal Cannula 3.0 12/01/18 15:00 98.8 82 18 114/66 (82) 100 12/01/18 14:00 83 18 112/60 (77) 100 12/01/18 13:00 93 18 119/76 (90) 100 12/01/18 12:00 Nasal Cannula 3.0 12/01/18 12:00 89 12/01/18 12:00 88 17 128/70 (89) 100 12/01/18 11:00 84 12 112/71 (85) 100 12/01/18 10:00 89 18 104/62 (76) 100 12/01/18 09:00 98.4 97 16 108/66 (80) 100 Intake and Output 12/01/18 12/02/18 19:00 07:00 Intake Total 1830 ml 2120 ml Output Total 1220 ml 1270 ml Balance 610 ml 850 ml Free Water 120 ml IV Total 1000 ml 1400 ml Tube Feeding 460 ml 180 ml Blood Product 250 ml 500 ml Other 40 ml Output Urine Total 820 ml 1270 ml Stool Total 400 ml # Bowel Movements 4 2 Laboratory Tests 12/01/18 17:30: White Blood Count 7.5, Red Blood Count 2.20L, Hemoglobin 7.0L, Hematocrit 20.1L , Mean Corpuscular Volume 91, Mean Corpuscular Hemoglobin 31.9H, Mean Corpuscular Hemoglobin Concent 35.0, Red Cell Distribution Width 14.2, Platelet Count 111L, Mean Platelet Volume 4.9L, Neutrophils (%) (Auto) , Lymphocytes (%) (Auto) , Monocytes (%) (Auto) , Eosinophils (%) (Auto) , Basophils (%) (Auto) , Differential Total Cells Counted 100, Neutrophils % (Manual) 78H, Lymphocytes % (Manual) 14L, Monocytes % (Manual) 3, Eosinophils % (Manual) 2, Basophils % ( Manual) 1, Band Neutrophils 2, Platelet Estimate DecreasedL, Platelet Morphology Normal, Polychromasia 1+, Hypochromasia 1+, Anisocytosis 1+ 12/02/18 05:25: White Blood Count 8.8, Red Blood Count 3.62L, Hemoglobin 11.5#L, Hematocrit 33.5 #L, Mean Corpuscular Volume 93, Mean Corpuscular Hemoglobin 31.7H, Mean Corpuscular Hemoglobin Concent 34.3, Red Cell Distribution Width 14.8, Platelet Count 129L, Mean Platelet Volume 5.3L, Neutrophils (%) (Auto) 78.9H, Lymphocytes (%) (Auto) 10.8L, Monocytes (%) (Auto) 6.9, Eosinophils (%) (Auto) 2.8, Basophils (%) (Auto) 0.6, Prothrombin Time 11.2, Prothromb Time International Ratio 1.1, Activated Partial Thromboplast Time 26, Sodium Level 152H, Potassium Level 3.6, Chloride Level 122H, Carbon Dioxide Level 25, Anion Gap 5, Blood Urea Nitrogen 17, Creatinine 0.5L, Estimat Glomerular Filtration Rate , Glucose Level 115H, Calcium Level 7.7L, Phosphorus Level 2.7, Magnesium Level 1.7L, Total Bilirubin 0.5, Aspartate Amino Transf (AST/SGOT) 13L, Alanine Aminotransferase (ALT/SGPT) 9L, Alkaline Phosphatase 57, Total Protein 3.8L, Albumin 1.3L, Globulin 2.5, Albumin/Globulin Ratio 0.5L Height (Feet): 5 Height (Inches): 5.00 Weight (Pounds): 139 General Appearance: lethargic EENT: normal ENT inspection Neck: supple Cardiovascular: tachycardia Respiratory/Chest: decreased breath sounds Abdomen: normal bowel sounds, non tender, soft Extremities: non-tender Vosoghi,Deacon MD Dec 02, 2018 08:29
--- NOTE | 2018-12-02 09:25 | NUR ---
NURSE NOTES: SEEN AND EXAMINED BY DR SEBASTIAN. MADE AWARE OF THE TLC, DRESSING CHANGED. WILL CONTINUE TO MONITOR.
--- NOTE | 2018-12-02 09:31 | Diagnostic Imaging Report ---
Indication: Line placement Technique: One view of the chest Comparison: 11/30/2018 Findings: Right subclavian central venous catheter is again demonstrated, tip projected at the level the mid superior vena cava. Bilateral perihilar infiltrates are again demonstrated. Previously demonstrated left costophrenic angle blunting has resolved. The heart is upper limits of normal in size. The aorta is tortuous and ectatic. There is no pneumothorax. Findings are unchanged Impression: Unchanged, over one day, findings as above.
--- NOTE | 2018-12-02 10:13 | Infectious Diseases Prog Note ---
Assessment/Plan Assessment/Plan Assessment: Diarrhea CDiff + GI bleed 11/29 Colonscopy : Diverticulosis Sepsis -11/30 CT abd/p: Nonspecific trace free intraperitoneal fluid. No acute abdominal or pelvic process otherwise. Fairly extensive bilateral basilar pulmonary parenchymal consolidation and atelectasis. Bilateral small pleural effusions. Colonic diverticulosis. No evidence of diverticulitis. Gastrostomy. Nonobstructive 3 mm left intrarenal calyceal calculus. Prostatomegaly. Edema of the bilateral left greater than right subcutaneous fat. Fairly extensive chronic appearing bilateral hip degenerative changes, with bilateral joint effusions versus chronic synovial proliferation. Inferior vena cava filter -11/28 BCx NTD u/a no pyuria ucx Neg Pneumonia -CXR: Patchy bilateral infiltrates versus mixed interstitial alveolar edema noted. -sp cx MRSA, MDR P. stuarti (S Amikacin, Zosyn ; I cefepime; S ertapenem) Afebrile Leukocytosis; improving MRSA bacteremia- suspect 2ry to PNA- r/o endocarditis -11/18 Bcx 2/4 MRSA , 1/ S. capitis, Diptheroids (these 2 are contaminants); BCx Neg -2d Echo:limited study (no vegetations) Probable UTI, sp Rx -u/a wbc 10-15, nit neg, leuk +2; ucx MDR ABC (S bactrim, gentamicin) Acute respiratory failure Sacral decubitus ulcer, necrotic, surrounding cellulitis GIB dementia HTN CKD COPD dysphagia s/p Gtube feeding Parkinson disease seizure disorder multiple decubiti wounds senior care resident Plan: - oral Vanco #09/07 -d/c Flagyl #4 -Continue empiric IV Vancomycin # for MRSA bacteremia and PNA -FLORINA pending -11/29 SP Zosyn #8 -11/27 SP Bactrim # -11/23 SP Cefepime # -11/18 SP Levaquin x1 -f/u cx -Monitor CBC/CMP, temperatures -f/u sp cx, legionella ag urine -GT care -aspiration precautions -wound care per surgical team -Recommend FLORINA Subjective Allergies: Coded Allergies: No Known Allergies (Unverified , 11/18/18) Subjective afebrile no leukocytosis Bcx NTD Objective Vital Signs Last 24 Hour Vital Signs Date Time Temp Pulse Resp B/P (MAP) Pulse Ox O2 Delivery O2 Flow Rate FiO2 12/02/18 08:00 97.6 106 14 126/74 (91) 100 12/02/18 07:00 87 15 133/87 (102) 100 12/02/18 06:00 82 12 117/74 (88) 100 12/02/18 05:00 88 13 121/75 (90) 100 12/02/18 04:00 Nasal Cannula 3.0 12/02/18 04:00 98.6 85 16 131/70 (90) 100 12/02/18 03:26 88 12/02/18 03:00 83 19 128/73 (91) 100 12/02/18 02:00 87 16 138/78 (98) 100 12/02/18 01:00 89 15 141/75 (97) 100 12/02/18 00:00 98.5 85 13 126/81 (96) 100 12/02/18 00:00 Nasal Cannula 3.0 12/01/18 23:06 93 12/01/18 23:00 93 13 128/77 (94) 100 12/01/18 22:00 90 15 126/70 (88) 100 12/01/18 21:00 92 17 115/68 (84) 100 12/01/18 20:00 Nasal Cannula 3.0 12/01/18 20:00 98.6 91 18 117/71 (86) 100 12/01/18 19:49 100 Nasal Cannula 3.0 32 12/01/18 19:49 92 18 100 Nasal Cannula 3.0 32 12/01/18 19:16 88 12/01/18 19:00 91 20 114/81 (92) 100 12/01/18 18:00 93 16 108/66 (80) 100 12/01/18 17:00 92 15 116/68 (84) 100 12/01/18 16:00 98.6 83 18 112/71 (85) 100 12/01/18 16:00 88 12/01/18 16:00 Nasal Cannula 3.0 12/01/18 15:00 98.8 82 18 114/66 (82) 100 12/01/18 14:00 83 18 112/60 (77) 100 12/01/18 13:00 93 18 119/76 (90) 100 12/01/18 12:00 Nasal Cannula 3.0 12/01/18 12:00 89 12/01/18 12:00 88 17 128/70 (89) 100 12/01/18 11:00 84 12 112/71 (85) 100 Height (Feet): 5 Height (Inches): 5.00 Weight (Pounds): 139 Objective General Appearance: WD/WN, no apparent distress Lines, tubes and drains: central line HEENT: normocephalic, atraumatic Neck: non-tender, normal alignment Cardiovascular/Chest: normal peripheral pulses, normal rate, regular rhythm Abdomen: normal bowel sounds, non tender Extremities: normal range of motion Skin Exam: normal pigmentation Neurologic: teaching dietitian II-XII grossly normal Laboratory Tests Test 12/01/18 17:30 12/02/18 05:25 White Blood Count 7.5 K/UL (4.8-10.8) 8.8 K/UL (4.8-10.8) Red Blood Count 2.20 M/UL (4.70-6.10) L 3.62 M/UL (4.70-6.10) L Hemoglobin 7.0 G/DL (14.2-18.0) L 11.5 G/DL (14.2-18.0) #L Hematocrit 20.1 % (42.0-52.0) L 33.5 % (42.0-52.0) #L Mean Corpuscular Volume 91 FL (80-99) 93 FL (80-99) Mean Corpuscular Hemoglobin 31.9 PG (27.0-31.0) H 31.7 PG (27.0-31.0) H Mean Corpuscular Hemoglobin Concent 35.0 G/DL (32.0-36.0) 34.3 G/DL (32.0-36.0) Red Cell Distribution Width 14.2 % (11.6-14.8) 14.8 % (11.6-14.8) Platelet Count 111 K/UL (150-450) L 129 K/UL (150-450) L Mean Platelet Volume 4.9 FL (6.5-10.1) L 5.3 FL (6.5-10.1) L Neutrophils (%) (Auto) % (45.0-75.0) 78.9 % (45.0-75.0) H Lymphocytes (%) (Auto) % (20.0-45.0) 10.8 % (20.0-45.0) L Monocytes (%) (Auto) % (1.0-10.0) 6.9 % (1.0-10.0) Eosinophils (%) (Auto) % (0.0-3.0) 2.8 % (0.0-3.0) Basophils (%) (Auto) % (0.0-2.0) 0.6 % (0.0-2.0) Differential Total Cells Counted 100 Neutrophils % (Manual) 78 % (45-75) H Lymphocytes % (Manual) 14 % (20-45) L Monocytes % (Manual) 3 % (1-10) Eosinophils % (Manual) 2 % (0-3) Basophils % (Manual) 1 % (0-2) Band Neutrophils 2 % (0-8) Platelet Estimate Decreased L Platelet Morphology Normal Polychromasia 1+ Hypochromasia 1+ Anisocytosis 1+ Prothrombin Time 11.2 SEC (9.30-11.50) Prothromb Time International Ratio 1.1 (0.9-1.1) Activated Partial Thromboplast Time 26 SEC (23-33) Sodium Level 152 MMOL/L (136-145) H Potassium Level 3.6 MMOL/L (3.5-5.1) Chloride Level 122 MMOL/L (98-107) H Carbon Dioxide Level 25 MMOL/L (21-32) Anion Gap 5 mmol/L (5-15) Blood Urea Nitrogen 17 mg/dL (7-18) Creatinine 0.5 MG/DL (0.55-1.30) L Estimat Glomerular Filtration Rate mL/min (>60) Glucose Level 115 MG/DL (74-106) H Calcium Level 7.7 MG/DL (8.5-10.1) L Phosphorus Level 2.7 MG/DL (2.5-4.9) Magnesium Level 1.7 MG/DL (1.8-2.4) L Total Bilirubin 0.5 MG/DL (0.2-1.0) Aspartate Amino Transf (AST/SGOT) 13 U/L (15-37) L Alanine Aminotransferase (ALT/SGPT) 9 U/L (12-78) L Alkaline Phosphatase 57 U/L (46-116) Total Protein 3.8 G/DL (6.4-8.2) L Albumin 1.3 G/DL (3.4-5.0) L Globulin 2.5 g/dL Albumin/Globulin Ratio 0.5 (1.0-2.7) L Current Medications Medications (Trade) Dose Ordered Sig/Pauline Route PRN Reason Start Time Stop Time Status Last Admin Dose Admin Acetaminophen (Tylenol) 650 mg Q4H PRN GT T>100.5 11/27/18 18:18 12/22/18 18:17 Albuterol/ Ipratropium (Albuterol/ Ipratropium) 3 ml Q4H PRN HHN Shortness of Breath 11/27/18 18:18 12/02/18 18:17 Barium Sulfate (Readi-Cat 2) 450 ml NOW PRN ORAL Radiology Procedure 11/30/18 17:30 12/02/18 17:23 Carbidopa/Levodopa (Sinemet 25/100) 1 tab THREE TIMES A DAY GT 11/27/18 18:00 12/27/18 17:59 12/02/18 08:25 Chlorhexidine Gluconate (Marycarmen-Hex 2%) 1 applic DAILY@2000 TOPIC 11/30/18 20:00 12/30/18 19:59 12/01/18 19:39 Clonidine HCl (Catapres Tab) 0.1 mg Q4H PRN GT sbp>170mmHg 11/27/18 18:18 12/22/18 18:17 Dextrose 1,000 ml @ 75 mls/hr [id number] IV 12/02/18 09:00 01/01/19 08:59 12/02/18 09:24 Dextrose (Dextrose 50%) 25 ml Q30M PRN IV Hypoglycemia 11/27/18 18:18 12/18/18 18:17 Dextrose (Dextrose 50%) 50 ml Q30M PRN IV Hypoglycemia 11/27/18 18:18 12/18/18 18:17 Diatrizoate Meglum/ Diatrizoate Sod (Gastrografin) 30 ml NOW PRN ORAL Radiology Procedure 11/30/18 17:30 12/02/18 17:23 Iopamidol (Isovue-300 100ml) 100 ml NOW PRN INJ Radiology Procedure 11/30/18 17:30 12/02/18 17:23 Iopamidol (Isovue-370 150ml) 150 ml NOW PRN INJ Radiology Procedure 11/30/18 17:15 12/02/18 17:15 Lactobacillus Acidophilus (Culturelle) 1 tab THREE TIMES A DAY ORAL 11/29/18 18:00 12/29/18 17:59 12/02/18 08:25 Metronidazole 100 ml @ 100 mls/hr Q6H IVPB 11/29/18 14:00 12/06/18 13:59 12/02/18 08:25 Pantoprazole 80 mg/Sodium Chloride 250 ml @ 25 mls/hr Q10H IV 11/30/18 17:00 12/30/18 16:59 12/02/18 08:26 Vancomycin HCl (Firvanq) 125 mg FOUR TIMES A DAY ORAL 11/29/18 09:00 12/06/18 08:59 12/02/18 08:26 Vancomycin HCl (Vanco rx to dose) 1 ea DAILY PRN MISC Per rx protocol 11/27/18 18:18 12/27/18 18:17 Neva Yee M.D. Dec 02, 2018 10:13
--- NOTE | 2018-12-02 10:28 | NUR ---
NURSE NOTES: SEEN AND EXAMINED BY DR GOMEZ. WILL CONTINUE TO PLAN OF CARE.
--- NOTE | 2018-12-02 10:31 | NUR ---
RD ASSESSMENT & RECOMMENDATIONS SEE CARE ACTIVITY FOR COMPLETE ASSESSMENT DAILY ESTIMATED NEEDS: Needs based on Wounds, sepsis 60.5kg 25-35 kcals/kg 5665-1562 total kcals 1.25-2 g protein/kg 76-121 g total protein 25-30 mL/kg 7804-3267 total fluid mLs NUTRITION DIAGNOSIS: 1) Increased kcal and pro needs r/t wound healing as evidenced by pt w/ wounds, including unstageable sacral, full thickness spinal wound, DTPI BL heels. 2) Swallowing difficulty r/t dysphagia as evidenced by pt w/ Parkinsons dz, GT dependent. CURRENT TF:Now NPO ENTERAL NUTRITION RECOMMENDATIONS: Glucerna 1.2 @60ml/hr x24 hrs to provide 1440ml, 1728 kcal, 86g pro, 1159ml free H2O - As medically able, restart TF at 20ml/hr. - Increase goal rate slowly as tolerated to 60ml/hr x 24 hrs- meets 100% est kcal/prot needs - Flush per MD/ HOB over 30 degrees ADDITIONAL RECOMMENDATIONS: 1) Per SNF: 5'6" ht, 133 lbs wt 2) Wound care: Add YOLI BID via GT + VIT C 250mg BID 3) Hypoglycemics prn/ niss 4) Monitor lytes, replete as needed . .
--- NOTE | 2018-12-02 10:31 | Pulmonolgy Critical Care Note ---
Critical Care - Asmt/Plan Problems: (1) Hemorrhagic shocks (2) HCAP (healthcare-associated pneumonia) (3) Lower GI bleed (4) Acute DVT (deep venous thrombosis) (5) COPD (chronic obstructive pulmonary disease) (6) S/P insertion of IVC (inferior vena caval) filter (7) Severe protein-calorie malnutrition (8) Seizures (9) Feeding by G-tube (10) Parkinson disease (11) Alzheimer's dementia (12) C. difficile colitis Respiratory: monitor respiratory rate, adjust FIO2, CXR Cardiac: continue to monitor HR/BP Renal: F/U I&O, keep IV fluid, check electrolytes Infectious Disease: check cultures, continue antibiotics, add antibiotics Gastrointestinal: continue feedings/current rate Endocrine: check TSH Hematologic: monitor H/H, transfuse if hgb<8.5 Neurologic: PRN Ativan, PRN Morphine, keep patient comfortable Affect: PRN ativan Time Spent (Minutes): 40 Notes Reviewed: cardio Discussed with: nurses, consultants, nurse case managermanager winter - Objective Last 24 Hour Vital Signs Date Time Temp Pulse Resp B/P (MAP) Pulse Ox O2 Delivery O2 Flow Rate FiO2 12/02/18 10:00 106 14 119/97 (104) 100 12/02/18 09:00 97 15 109/69 (82) 100 12/02/18 08:00 Nasal Cannula 3.0 12/02/18 08:00 80 12/02/18 08:00 97.6 106 14 126/74 (91) 100 12/02/18 07:00 87 15 133/87 (102) 100 12/02/18 06:00 82 12 117/74 (88) 100 12/02/18 05:00 88 13 121/75 (90) 100 12/02/18 04:00 Nasal Cannula 3.0 12/02/18 04:00 98.6 85 16 131/70 (90) 100 12/02/18 03:26 88 12/02/18 03:00 83 19 128/73 (91) 100 12/02/18 02:00 87 16 138/78 (98) 100 12/02/18 01:00 89 15 141/75 (97) 100 12/02/18 00:00 98.5 85 13 126/81 (96) 100 12/02/18 00:00 Nasal Cannula 3.0 12/01/18 23:06 93 12/01/18 23:00 93 13 128/77 (94) 100 12/01/18 22:00 90 15 126/70 (88) 100 12/01/18 21:00 92 17 115/68 (84) 100 12/01/18 20:00 Nasal Cannula 3.0 12/01/18 20:00 98.6 91 18 117/71 (86) 100 12/01/18 19:49 100 Nasal Cannula 3.0 32 12/01/18 19:49 92 18 100 Nasal Cannula 3.0 32 12/01/18 19:16 88 12/01/18 19:00 91 20 114/81 (92) 100 12/01/18 18:00 93 16 108/66 (80) 100 12/01/18 17:00 92 15 116/68 (84) 100 12/01/18 16:00 98.6 83 18 112/71 (85) 100 12/01/18 16:00 88 12/01/18 16:00 Nasal Cannula 3.0 12/01/18 15:00 98.8 82 18 114/66 (82) 100 12/01/18 14:00 83 18 112/60 (77) 100 12/01/18 13:00 93 18 119/76 (90) 100 12/01/18 12:00 Nasal Cannula 3.0 12/01/18 12:00 89 12/01/18 12:00 88 17 128/70 (89) 100 12/01/18 11:00 84 12 112/71 (85) 100 Status: awake Condition: critical HEENT: atraumatic Neck: full ROM Lungs: rales Heart: HR/BP stable Abdomen: soft, non-tender, feeding tube Extremities: edema Critical Care - Subjective ROS Limited/Unobtainable: Yes Interval Events: scheduled for EGD today, got one unit or prbc FI02: 32 Sputum Amount: None Tube Feeding Amount: 0 I&O: Intake and Output 12/01/18 12/02/18 19:00 07:00 Intake Total 1830 ml 2120 ml Output Total 1220 ml 1270 ml Balance 610 ml 850 ml Free Water 120 ml IV Total 1000 ml 1400 ml Tube Feeding 460 ml 180 ml Blood Product 250 ml 500 ml Other 40 ml Output Urine Total 820 ml 1270 ml Stool Total 400 ml # Bowel Movements 4 2 Labs: Laboratory Tests Test 12/01/18 17:30 12/02/18 05:25 White Blood Count 7.5 K/UL (4.8-10.8) 8.8 K/UL (4.8-10.8) Red Blood Count 2.20 M/UL (4.70-6.10) L 3.62 M/UL (4.70-6.10) L Hemoglobin 7.0 G/DL (14.2-18.0) L 11.5 G/DL (14.2-18.0) #L Hematocrit 20.1 % (42.0-52.0) L 33.5 % (42.0-52.0) #L Mean Corpuscular Volume 91 FL (80-99) 93 FL (80-99) Mean Corpuscular Hemoglobin 31.9 PG (27.0-31.0) H 31.7 PG (27.0-31.0) H Mean Corpuscular Hemoglobin Concent 35.0 G/DL (32.0-36.0) 34.3 G/DL (32.0-36.0) Red Cell Distribution Width 14.2 % (11.6-14.8) 14.8 % (11.6-14.8) Platelet Count 111 K/UL (150-450) L 129 K/UL (150-450) L Mean Platelet Volume 4.9 FL (6.5-10.1) L 5.3 FL (6.5-10.1) L Neutrophils (%) (Auto) % (45.0-75.0) 78.9 % (45.0-75.0) H Lymphocytes (%) (Auto) % (20.0-45.0) 10.8 % (20.0-45.0) L Monocytes (%) (Auto) % (1.0-10.0) 6.9 % (1.0-10.0) Eosinophils (%) (Auto) % (0.0-3.0) 2.8 % (0.0-3.0) Basophils (%) (Auto) % (0.0-2.0) 0.6 % (0.0-2.0) Differential Total Cells Counted 100 Neutrophils % (Manual) 78 % (45-75) H Lymphocytes % (Manual) 14 % (20-45) L Monocytes % (Manual) 3 % (1-10) Eosinophils % (Manual) 2 % (0-3) Basophils % (Manual) 1 % (0-2) Band Neutrophils 2 % (0-8) Platelet Estimate Decreased L Platelet Morphology Normal Polychromasia 1+ Hypochromasia 1+ Anisocytosis 1+ Prothrombin Time 11.2 SEC (9.30-11.50) Prothromb Time International Ratio 1.1 (0.9-1.1) Activated Partial Thromboplast Time 26 SEC (23-33) Sodium Level 152 MMOL/L (136-145) H Potassium Level 3.6 MMOL/L (3.5-5.1) Chloride Level 122 MMOL/L (98-107) H Carbon Dioxide Level 25 MMOL/L (21-32) Anion Gap 5 mmol/L (5-15) Blood Urea Nitrogen 17 mg/dL (7-18) Creatinine 0.5 MG/DL (0.55-1.30) L Estimat Glomerular Filtration Rate mL/min (>60) Glucose Level 115 MG/DL (74-106) H Calcium Level 7.7 MG/DL (8.5-10.1) L Phosphorus Level 2.7 MG/DL (2.5-4.9) Magnesium Level 1.7 MG/DL (1.8-2.4) L Total Bilirubin 0.5 MG/DL (0.2-1.0) Aspartate Amino Transf (AST/SGOT) 13 U/L (15-37) L Alanine Aminotransferase (ALT/SGPT) 9 U/L (12-78) L Alkaline Phosphatase 57 U/L (46-116) Total Protein 3.8 G/DL (6.4-8.2) L Albumin 1.3 G/DL (3.4-5.0) L Globulin 2.5 g/dL Albumin/Globulin Ratio 0.5 (1.0-2.7) L David Carrasquillo MD Dec 02, 2018 10:31
[2018-12-02] MEDS ORDERED: NS 500ML IVPB ONE (12:00)
--- NOTE | 2018-12-02 12:05 | Cardiac Electrophysiology PN ---
Assessment/Plan Assessment/Plan 1. Sinus tach due to anemia and sepsis and beta danya withdrawal 2. Hypertension. Echo EF 55% 3. Acute right leg DVT and Bilateral UE DVT. S/P IVC filter . Off Eliquis for severe anemia 4. Staph aureous bacteremia. Dr. Yee who recommended FLORINA pending consent and patient stability 5. Parkinsonism. 6. COPD. 7. UTI. 8. Severe anemia and rectal bleed. S/P Colonoscopy on 11/20/18 and 11/29/18 and transfusion No obvious source. Scheduled for EGD today to R/U duodenal ulcer 9. Seizure disorder. 10. S/P PEG DW RN and Dr Dallas Subjective Subjective In sinus tach. In ICU and still has recurrent GI bleed. Off pressors. EGD scheduled for today. Had 3 units of PRBC yesterday Objective Last 24 Hour Vital Signs Date Time Temp Pulse Resp B/P (MAP) Pulse Ox O2 Delivery O2 Flow Rate FiO2 12/02/18 11:00 95 16 118/73 (88) 100 12/02/18 10:00 106 14 119/97 (104) 100 12/02/18 09:00 97 15 109/69 (82) 100 12/02/18 08:00 Nasal Cannula 3.0 12/02/18 08:00 80 12/02/18 08:00 97.6 106 14 126/74 (91) 100 12/02/18 07:00 87 15 133/87 (102) 100 12/02/18 06:00 82 12 117/74 (88) 100 12/02/18 05:00 88 13 121/75 (90) 100 12/02/18 04:00 Nasal Cannula 3.0 12/02/18 04:00 98.6 85 16 131/70 (90) 100 12/02/18 03:26 88 12/02/18 03:00 83 19 128/73 (91) 100 12/02/18 02:00 87 16 138/78 (98) 100 12/02/18 01:00 89 15 141/75 (97) 100 12/02/18 00:00 98.5 85 13 126/81 (96) 100 12/02/18 00:00 Nasal Cannula 3.0 12/01/18 23:06 93 12/01/18 23:00 93 13 128/77 (94) 100 12/01/18 22:00 90 15 126/70 (88) 100 12/01/18 21:00 92 17 115/68 (84) 100 12/01/18 20:00 Nasal Cannula 3.0 12/01/18 20:00 98.6 91 18 117/71 (86) 100 12/01/18 19:49 100 Nasal Cannula 3.0 32 12/01/18 19:49 92 18 100 Nasal Cannula 3.0 32 12/01/18 19:16 88 12/01/18 19:00 91 20 114/81 (92) 100 12/01/18 18:00 93 16 108/66 (80) 100 12/01/18 17:00 92 15 116/68 (84) 100 12/01/18 16:00 98.6 83 18 112/71 (85) 100 12/01/18 16:00 88 12/01/18 16:00 Nasal Cannula 3.0 12/01/18 15:00 98.8 82 18 114/66 (82) 100 12/01/18 14:00 83 18 112/60 (77) 100 12/01/18 13:00 93 18 119/76 (90) 100 Intake and Output 12/01/18 12/02/18 19:00 07:00 Intake Total 1830 ml 2120 ml Output Total 1220 ml 1270 ml Balance 610 ml 850 ml Free Water 120 ml IV Total 1000 ml 1400 ml Tube Feeding 460 ml 180 ml Blood Product 250 ml 500 ml Other 40 ml Output Urine Total 820 ml 1270 ml Stool Total 400 ml # Bowel Movements 4 2 Laboratory Tests Test 12/01/18 17:30 12/02/18 05:25 White Blood Count 7.5 K/UL (4.8-10.8) 8.8 K/UL (4.8-10.8) Red Blood Count 2.20 M/UL (4.70-6.10) L 3.62 M/UL (4.70-6.10) L Hemoglobin 7.0 G/DL (14.2-18.0) L 11.5 G/DL (14.2-18.0) #L Hematocrit 20.1 % (42.0-52.0) L 33.5 % (42.0-52.0) #L Mean Corpuscular Volume 91 FL (80-99) 93 FL (80-99) Mean Corpuscular Hemoglobin 31.9 PG (27.0-31.0) H 31.7 PG (27.0-31.0) H Mean Corpuscular Hemoglobin Concent 35.0 G/DL (32.0-36.0) 34.3 G/DL (32.0-36.0) Red Cell Distribution Width 14.2 % (11.6-14.8) 14.8 % (11.6-14.8) Platelet Count 111 K/UL (150-450) L 129 K/UL (150-450) L Mean Platelet Volume 4.9 FL (6.5-10.1) L 5.3 FL (6.5-10.1) L Neutrophils (%) (Auto) % (45.0-75.0) 78.9 % (45.0-75.0) H Lymphocytes (%) (Auto) % (20.0-45.0) 10.8 % (20.0-45.0) L Monocytes (%) (Auto) % (1.0-10.0) 6.9 % (1.0-10.0) Eosinophils (%) (Auto) % (0.0-3.0) 2.8 % (0.0-3.0) Basophils (%) (Auto) % (0.0-2.0) 0.6 % (0.0-2.0) Differential Total Cells Counted 100 Neutrophils % (Manual) 78 % (45-75) H Lymphocytes % (Manual) 14 % (20-45) L Monocytes % (Manual) 3 % (1-10) Eosinophils % (Manual) 2 % (0-3) Basophils % (Manual) 1 % (0-2) Band Neutrophils 2 % (0-8) Platelet Estimate Decreased L Platelet Morphology Normal Polychromasia 1+ Hypochromasia 1+ Anisocytosis 1+ Prothrombin Time 11.2 SEC (9.30-11.50) Prothromb Time International Ratio 1.1 (0.9-1.1) Activated Partial Thromboplast Time 26 SEC (23-33) Sodium Level 152 MMOL/L (136-145) H Potassium Level 3.6 MMOL/L (3.5-5.1) Chloride Level 122 MMOL/L (98-107) H Carbon Dioxide Level 25 MMOL/L (21-32) Anion Gap 5 mmol/L (5-15) Blood Urea Nitrogen 17 mg/dL (7-18) Creatinine 0.5 MG/DL (0.55-1.30) L Estimat Glomerular Filtration Rate mL/min (>60) Glucose Level 115 MG/DL (74-106) H Calcium Level 7.7 MG/DL (8.5-10.1) L Phosphorus Level 2.7 MG/DL (2.5-4.9) Magnesium Level 1.7 MG/DL (1.8-2.4) L Total Bilirubin 0.5 MG/DL (0.2-1.0) Aspartate Amino Transf (AST/SGOT) 13 U/L (15-37) L Alanine Aminotransferase (ALT/SGPT) 9 U/L (12-78) L Alkaline Phosphatase 57 U/L (46-116) Total Protein 3.8 G/DL (6.4-8.2) L Albumin 1.3 G/DL (3.4-5.0) L Globulin 2.5 g/dL Albumin/Globulin Ratio 0.5 (1.0-2.7) L Objective HEAD AND NECK: No JVD. LUNGS: Decreased breath sounds. CARDIOVASCULAR: Regular S1 and S2 with no gallop . ABDOMEN: Soft. G-tube intact. EXTREMITIES: Upper extremity and LE edema. Earl Washington MD Dec 02, 2018 12:05
--- NOTE | 2018-12-02 12:05 | Pre-Procedure Note/Attestation ---
Pre-Procedure Note/Attestation Complete Prior to Procedure Planned Procedure: not applicable Procedure Narrative: egd Indications for Procedure Pre-Operative Diagnosis: rectal bleed Attestation I attest that I discussed the nature of the procedure; its benefits; risks and complications; and alternatives (and the risks and benefits of such alternatives ), prior to the procedure, with the patient (or the patient's legal arborist representative). I attest that, if there was a reasonable possibility of needing a blood transfusion, the patient (or the patient's legal arborist representative) was given the [facility] standardized written summary, pursuant to the Jayro [place]cow Blood Safety Act ([place] Health and Safety Code # 1645, as amended). I attest that I re-evaluated the patient just prior to the surgery and that there has been no change in the patient's H&P, except as documented below: Deacon Dallas MD Dec 02, 2018 12:05
--- NOTE | 2018-12-02 12:11 | NUR ---
NURSE NOTES: SEEN AND EXAMINED BY DR SCHULTE. ON-GOING EGD. WILL CONTINUE TO MONITOR.
--- NOTE | 2018-12-02 12:16 | Immediate Post-Op Evaluation ---
Immediate Post-Op Evalulation Immediate Post-Op Evalulation Procedure: EGD Date of Evaluation: Dec 02, 2018 Time of Evaluation: 12:49 IV Fluids: 500 LR Blood Products: 0 Estimated Blood Loss: 10 Urinary Output: 0 Blood Pressure Systolic: 91 Blood Pressure Diastolic: 71 Pulse Rate: 99 Respiratory Rate: 16 O2 Sat by Pulse Oximetry: 100 Temperature (Fahrenheit): 97.4 Pain Score (1-10): 0 Nausea: No Vomiting: No Complications 0 Patient Status: awake, reacts, patent, none Hydration Status: adequate Rahul Nair MD Dec 02, 2018 12:16
--- NOTE | 2018-12-02 12:17 | 48 Hour Post Anesthesia Eval ---
Post Anesthesia Evaluation Procedure: EGD Date of Evaluation: Dec 02, 2018 Time of Evaluation: 14:54 Blood Pressure Systolic: 87 0: 57 Pulse Rate: 122 Respiratory Rate: 20 Temperature (Fahrenheit): 97.6 O2 Sat by Pulse Oximetry: 100 Airway: patent Nausea: No Vomiting: No Pain Intensity: 0 Hydration Status: adequate Cardiopulmonary Status: Stable Mental Status/LOC: patient returned to baseline Follow-up Care/Observations: 0 Post-Anesthesia Complications: 0 Follow-up care needed: N/A Rahul Nair MD Dec 02, 2018 12:17
--- NOTE | 2018-12-02 12:41 | NUR ---
NURSE NOTES: DR SEBASTIAN ORDERED BLOOD PRODUCTS. FOR SURGERY AT 3PM. BLOOD BANK MADE AWARE. WILL CONTINUE TO MONITOR.
--- NOTE | 2018-12-02 13:07 | Hematology/Onc Progress Note ---
Assessment/Plan Assessment/Plan Assessment/Plan # Acute right leg DVT. Heparin drip DCed for rectal bleed. s/p IVC FILTER --> agree with need for this given coagulant contraindication --> appreciate gi and pulm/cc recs --> UPPER EXT DVT noted as well --> have discontinued eliquis given acute GI bleed on 11/27/18, ON HOLD --> in icu as of 11/27 # Anemia due to GI Bleed, other causes exist, multifactorial --> Anemia workup has been reviewed, FERRITIN 831 --> No evidence of hemolysis is noted, peripheral smear has been reviewed. --> Hgb goal >7. Transfuse prn. --> Epogen or iron at this time is not particularly indicated --> Medications have been reviewed --> low threshold for gi evaluation in case has occult +--> endoscopy and colo pending --> hgb trend: 7.4-->9.0-->9-->8.6->8.9-->6.1-->9.8--> 7.3->8.8 --> EGD with duodenal bleed, may need sx --> Blood tx: 1 unit 11/19, 11/27, 12/02 # Thrombocytopenia likely related to infection --> trend plt 111k-->129k # Leukocytosis due to sepsis. --> Monitor for improvement --> urine and blood cultures are both positive, mrsa positive --> IV abx per id --> trend wbc 11.6--> 16 # Sinus tach due to anemia and sepsis and beta danya withdrawal as was on Metoprolol 12.5 bid at [facility] --> per cards recs # Hypertension. Hold Metoprolol as BP is 90s. --> cloniditon per cards # S/P PEG The timing of this note does not necessarily reflect the time of the patient was seen. GREATLY APPRECIATE CONSULTATION. Subjective Constitutional: Denies: no symptoms, chills, fever, malaise, weakness, other HEENT: Denies: no symptoms, eye pain, blurred vision, tearing, double vision, ear pain, ear discharge, nose pain, nose congestion, throat pain, throat swelling, mouth pain, mouth swelling, other Cardiovascular: Denies: no symptoms, chest pain, edema, irregular heart rate, lightheadedness, palpitations, syncope, other Respiratory: Denies: no symptoms, cough, shortness of breath, SOB with excertion, SOB at rest, sputum, wheezing, other Gastrointestinal/Abdominal: Denies: no symptoms, abdomen distended, abdominal pain, black stools, tarry stools, blood in stool, constipated, diarrhea, difficulty swallowing, nausea, poor appetite, poor fluid intake, rectal bleeding , vomiting, other Genitourinary: Denies: no symptoms, burning, discharge, frequency, flank pain, hematuria, incontinence, pain, urgency, other Neurologic/Psychiatric: Denies: no symptoms, anxiety, depressed, emotional problems, headache, numbness, paresthesia, pre-existing deficit, seizure, tingling, tremors, weakness, other Endocrine: Denies: no symptoms, excessive sweating, flushing, intolerance to cold, intolerance to heat, increased hunger, increased thirst, increased urine, unexplained weight gain, unexplained weight loss, other Hematologic/Lymphatic: Denies: no symptoms, anemia, easy bleeding, easy bruising, adenopathy, other Allergies: Coded Allergies: No Known Allergies (Unverified , 11/18/18) Subjective Subjective 11/20: Colonoscopy for today. S/P 1 unit prbc. 11/21: Pt awake and nonverbal. Hgb at 7.4, blood tx ordered. 11/23: Pt no acute respiratory distress. CXR Increased bilateral lower lobe atelectasis or airspace consolidation. Underlying pneumonia may be present. Small bilateral pleural effusions. 11/24: no events, no f/c noted, no bleeding, anemia panel reviewed, s/p ivc filter 11/25: No acute events, no signs of distress. DC planning 11/26: no events, no bleeding, noted to have b/l upper ext dvt, acute started on elqiuis 11/27: sbo was ow in the am, transferred to the icu, hgb low requiring transfusion 11/28: Left UE edema > Right UE, s/p blood transfusion 11/27. 11/29:pt is on Venti mask, lethargic. 11/30:pt seen in am, with thick sputum per suctioning. 12/02: no events reported, hgb is better, seen by cards, pulm Objective Objective Current Medications Medications (Trade) Dose Ordered Sig/Pauline Route PRN Reason Start Time Stop Time Status Last Admin Dose Admin Acetaminophen (Tylenol) 650 mg Q4H PRN GT T>100.5 11/27/18 18:18 12/22/18 18:17 Albuterol/ Ipratropium (Albuterol/ Ipratropium) 3 ml Q4H PRN HHN Shortness of Breath 11/27/18 18:18 12/02/18 18:17 Barium Sulfate (Readi-Cat 2) 450 ml NOW PRN ORAL Radiology Procedure 11/30/18 17:30 12/02/18 17:23 Carbidopa/Levodopa (Sinemet 25/100) 1 tab THREE TIMES A DAY GT 11/27/18 18:00 12/27/18 17:59 12/02/18 08:25 Chlorhexidine Gluconate (Marycarmen-Hex 2%) 1 applic DAILY@2000 TOPIC 11/30/18 20:00 12/30/18 19:59 12/01/18 19:39 Clonidine HCl (Catapres Tab) 0.1 mg Q4H PRN GT sbp>170mmHg 11/27/18 18:18 12/22/18 18:17 Dextrose 1,000 ml @ 75 mls/hr [id number] IV 12/02/18 09:00 01/01/19 08:59 12/02/18 09:24 Dextrose (Dextrose 50%) 25 ml Q30M PRN IV Hypoglycemia 11/27/18 18:18 12/18/18 18:17 Dextrose (Dextrose 50%) 50 ml Q30M PRN IV Hypoglycemia 11/27/18 18:18 12/18/18 18:17 Diatrizoate Meglum/ Diatrizoate Sod (Gastrografin) 30 ml NOW PRN ORAL Radiology Procedure 11/30/18 17:30 12/02/18 17:23 Hydrocortisone (Proctosol-HC Cream) 1 applic Q12HR TOPIC 12/02/18 13:00 01/01/19 12:59 Iopamidol (Isovue-300 100ml) 100 ml NOW PRN INJ Radiology Procedure 11/30/18 17:30 12/02/18 17:23 Iopamidol (Isovue-370 150ml) 150 ml NOW PRN INJ Radiology Procedure 11/30/18 17:15 7/9/19 17:15 Lactobacillus Acidophilus (Culturelle) 1 tab THREE TIMES A DAY ORAL 11/29/18 18:00 12/29/18 17:59 12/02/18 08:25 Magnesium Sulfate 100 ml @ 100 mls/hr Q1H IVPB 12/02/18 12:45 12/02/18 14:44 Pantoprazole 80 mg/Sodium Chloride 250 ml @ 25 mls/hr Q10H IV 11/30/18 17:00 12/30/18 16:59 12/02/18 08:26 Vancomycin HCl (Firvanq) 125 mg FOUR TIMES A DAY ORAL 11/29/18 09:00 12/06/18 08:59 12/02/18 08:26 Vancomycin HCl (Vanco rx to dose) 1 ea DAILY PRN MISC Per rx protocol 11/27/18 18:18 12/27/18 18:17 Last 24 Hour Vital Signs Date Time Temp Pulse Resp B/P (MAP) Pulse Ox O2 Delivery O2 Flow Rate FiO2 12/02/18 12:37 122 20 100 12/02/18 12:16 99 16 100 12/02/18 12:00 119 12/02/18 12:00 85 19 90/63 (72) 100 12/02/18 11:00 95 16 118/73 (88) 100 12/02/18 10:00 106 14 119/97 (104) 100 12/02/18 09:00 97 15 109/69 (82) 100 12/02/18 08:00 Nasal Cannula 3.0 12/02/18 08:00 80 12/02/18 08:00 97.6 106 14 126/74 (91) 100 12/02/18 07:00 87 15 133/87 (102) 100 12/02/18 06:00 82 12 117/74 (88) 100 12/02/18 05:00 88 13 121/75 (90) 100 12/02/18 04:00 Nasal Cannula 3.0 12/02/18 04:00 98.6 85 16 131/70 (90) 100 12/02/18 03:26 88 12/02/18 03:00 83 19 128/73 (91) 100 12/02/18 02:00 87 16 138/78 (98) 100 12/02/18 01:00 89 15 141/75 (97) 100 12/02/18 00:00 98.5 85 13 126/81 (96) 100 12/02/18 00:00 Nasal Cannula 3.0 12/01/18 23:06 93 12/01/18 23:00 93 13 128/77 (94) 100 12/01/18 22:00 90 15 126/70 (88) 100 12/01/18 21:00 92 17 115/68 (84) 100 12/01/18 20:00 Nasal Cannula 3.0 12/01/18 20:00 98.6 91 18 117/71 (86) 100 12/01/18 19:49 100 Nasal Cannula 3.0 32 12/01/18 19:49 92 18 100 Nasal Cannula 3.0 32 12/01/18 19:16 88 12/01/18 19:00 91 20 114/81 (92) 100 12/01/18 18:00 93 16 108/66 (80) 100 12/01/18 17:00 92 15 116/68 (84) 100 12/01/18 16:00 98.6 83 18 112/71 (85) 100 12/01/18 16:00 88 12/01/18 16:00 Nasal Cannula 3.0 12/01/18 15:00 98.8 82 18 114/66 (82) 100 12/01/18 14:00 83 18 112/60 (77) 100 12/01/18 13:00 93 18 119/76 (90) 100 12/01/18 12:00 Nasal Cannula 3.0 12/01/18 12:00 89 12/01/18 12:00 88 17 128/70 (89) 100 12/01/18 11:00 84 12 112/71 (85) 100 12/01/18 10:00 89 18 104/62 (76) 100 12/01/18 09:00 98.4 97 16 108/66 (80) 100 12/01/18 08:00 Nasal Cannula 3.0 12/01/18 08:00 95 12/01/18 08:00 95 15 105/72 (83) 100 12/01/18 07:00 95 15 115/72 (86) 100 12/01/18 06:00 96 13 121/68 (85) 100 12/01/18 05:00 100 19 120/66 (84) 100 12/01/18 04:00 97.7 101 20 133/78 (96) 100 12/01/18 04:00 Nasal Cannula 3.0 12/01/18 04:00 107 12/01/18 03:00 93 22 126/64 (84) 100 12/01/18 02:00 85 14 118/53 (74) 100 12/01/18 01:00 90 13 111/71 (84) 100 12/01/18 00:00 97.7 82 14 123/66 (85) 100 12/01/18 00:00 Nasal Cannula 3.0 12/01/18 00:00 83 11/30/18 23:00 81 14 117/64 (81) 100 11/30/18 22:00 83 15 129/68 (88) 100 11/30/18 21:00 85 13 110/55 (73) 100 11/30/18 20:51 102 11/30/18 20:00 Nasal Cannula 3.0 11/30/18 20:00 98.2 85 2 109/59 (76) 100 11/30/18 19:08 76 19 97 Nasal Cannula 3.0 32 11/30/18 19:08 97 Nasal Cannula 3.0 32 11/30/18 19:00 77 13 106/55 (72) 100 11/30/18 18:00 82 13 113/59 (77) 100 11/30/18 17:00 88 17 108/64 (79) 100 11/30/18 16:00 85 17 103/57 (72) 100 11/30/18 16:00 74 11/30/18 16:00 Nasal Cannula 3.0 11/30/18 15:00 88 13 101/53 (69) 100 11/30/18 14:00 82 13 93/50 (64) 100 Intake and Output 12/01/18 12/02/18 19:00 07:00 Intake Total 1830 ml 2120 ml Output Total 1220 ml 1270 ml Balance 610 ml 850 ml Free Water 120 ml IV Total 1000 ml 1400 ml Tube Feeding 460 ml 180 ml Blood Product 250 ml 500 ml Other 40 ml Output Urine Total 820 ml 1270 ml Stool Total 400 ml # Bowel Movements 4 2 Labs Test 11/29/18 18:10 11/30/18 05:00 11/30/18 16:20 11/30/18 18:55 White Blood Count 16.0 K/UL (4.8-10.8) 9.8 K/UL (4.8-10.8) 8.2 K/UL (4.8-10.8) 7.7 K/UL (4.8-10.8) Red Blood Count 2.26 M/UL (4.70-6.10) 2.77 M/UL (4.70-6.10) 2.52 M/UL (4.70-6.10) 2.56 M/UL (4.70-6.10) Hemoglobin 7.3 G/DL (14.2-18.0) 8.8 G/DL (14.2-18.0) 8.0 G/DL (14.2-18.0) 8.0 G/DL (14.2-18.0) Hematocrit 20.1 % (42.0-52.0) 25.1 % (42.0-52.0) 22.3 % (42.0-52.0) 22.7 % (42.0-52.0) Mean Corpuscular Volume 89 FL (80-99) 91 FL (80-99) 88 FL (80-99) 89 FL (80- 99) Mean Corpuscular Hemoglobin 32.3 PG (27.0-31.0) 31.6 PG (27.0-31.0) 31.6 PG (27.0-31.0) 31.1 PG (27.0-31.0) Mean Corpuscular Hemoglobin Concent 36.5 G/DL (32.0-36.0) 34.9 G/DL (32.0-36.0) 35.8 G/DL (32.0-36.0) 35.1 G/DL (32.0-36.0) Red Cell Distribution Width 13.8 % (11.6-14.8) 14.4 % (11.6-14.8) 14.3 % (11.6-14.8) 14.4 % (11.6-14.8) Platelet Count 181 K/UL (150-450) 156 K/UL (150-450) 167 K/UL (150-450) 154 K/UL (150-450) Mean Platelet Volume 5.9 FL (6.5-10.1) 5.5 FL (6.5-10.1) 5.6 FL (6.5-10.1) 5.0 FL (6.5-10.1) Neutrophils (%) (Auto) 85.6 % (45.0-75.0) 80.5 % (45.0-75.0) 77.4 % (45.0-75.0) 74.3 % (45.0-75.0) Lymphocytes (%) (Auto) 8.0 % (20.0-45.0) 12.4 % (20.0-45.0) 12.9 % (20.0-45.0) 16.2 % (20.0-45.0) Monocytes (%) (Auto) 5.7 % (1.0-10.0) 6.5 % (1.0-10.0) 7.4 % (1.0-10.0) 8.0 % (1.0-10.0) Eosinophils (%) (Auto) 0.2 % (0.0-3.0) 0.3 % (0.0-3.0) 1.5 % (0.0-3.0) 1.0 % (0.0-3.0) Basophils (%) (Auto) 0.5 % (0.0-2.0) 0.3 % (0.0-2.0) 0.9 % (0.0-2.0) 0.5 % (0.0-2.0) Sodium Level 146 MMOL/L (136-145) Potassium Level 3.5 MMOL/L (3.5-5.1) Chloride Level 112 MMOL/L (98-107) Carbon Dioxide Level 26 MMOL/L (21-32) Anion Gap 9 mmol/L (5-15) Blood Urea Nitrogen 50 mg/dL (7-18) Creatinine 0.8 MG/DL (0.55-1.30) Estimat Glomerular Filtration Rate mL/min (>60) Glucose Level 124 MG/DL (74-106) Calcium Level 7.7 MG/DL (8.5-10.1) Phosphorus Level 3.8 MG/DL (2.5-4.9) Magnesium Level 2.1 MG/DL (1.8-2.4) Total Bilirubin 0.4 MG/DL (0.2-1.0) Aspartate Amino Transf (AST/SGOT) 18 U/L (15-37) Alanine Aminotransferase (ALT/SGPT) < 6 U/L (12-78) Alkaline Phosphatase 62 U/L (46-116) Pro-B-Type Natriuretic Peptide 485 pg/mL (0-125) Total Protein 4.0 G/DL (6.4-8.2) Albumin 1.2 G/DL (3.4-5.0) Globulin 2.8 g/dL Albumin/Globulin Ratio 0.4 (1.0-2.7) Random Vancomycin Level 21.3 ug/mL Test 12/01/18 04:18 12/01/18 17:30 12/02/18 05:25 White Blood Count 7.9 K/UL (4.8-10.8) 7.5 K/UL (4.8-10.8) 8.8 K/UL (4.8-10.8) Red Blood Count 2.44 M/UL (4.70-6.10) 2.20 M/UL (4.70-6.10) 3.62 M/UL (4.70-6.10) Hemoglobin 7.6 G/DL (14.2-18.0) 7.0 G/DL (14.2-18.0) 11.5 G/DL (14.2-18.0) Hematocrit 22.6 % (42.0-52.0) 20.1 % (42.0-52.0) 33.5 % (42.0-52.0) Mean Corpuscular Volume 93 FL (80-99) 91 FL (80-99) 93 FL (80-99) Mean Corpuscular Hemoglobin 31.1 PG (27.0-31.0) 31.9 PG (27.0-31.0) 31.7 PG (27.0-31.0) Mean Corpuscular Hemoglobin Concent 33.6 G/DL (32.0-36.0) 35.0 G/DL (32.0-36.0) 34.3 G/DL (32.0-36.0) Red Cell Distribution Width 16.5 % (11.6-14.8) 14.2 % (11.6-14.8) 14.8 % (11.6-14.8) Platelet Count 152 K/UL (150-450) 111 K/UL (150-450) 129 K/UL (150-450) Mean Platelet Volume 5.3 FL (6.5-10.1) 4.9 FL (6.5-10.1) 5.3 FL (6.5-10.1) Neutrophils (%) (Auto) % (45.0-75.0) % (45.0-75.0) 78.9 % (45.0-75.0) Lymphocytes (%) (Auto) % (20.0-45.0) % (20.0-45.0) 10.8 % (20.0-45.0) Monocytes (%) (Auto) % (1.0-10.0) % (1.0-10.0) 6.9 % (1.0-10.0) Eosinophils (%) (Auto) % (0.0-3.0) % (0.0-3.0) 2.8 % (0.0-3.0) Basophils (%) (Auto) % (0.0-2.0) % (0.0-2.0) 0.6 % (0.0-2.0) Erythrocyte Sedimentation Rate 28 MM/HR (0-20) Reticulocyte Count 6.4 % (0.5-2.0) Sodium Level 148 MMOL/L (136-145) 152 MMOL/L (136-145) Potassium Level 2.9 MMOL/L (3.5-5.1) 3.6 MMOL/L (3.5-5.1) Chloride Level 116 MMOL/L (98-107) 122 MMOL/L (98-107) Carbon Dioxide Level 26 MMOL/L (21-32) 25 MMOL/L (21-32) Anion Gap 6 mmol/L (5-15) 5 mmol/L (5-15) Blood Urea Nitrogen 31 mg/dL (7-18) 17 mg/dL (7-18) Creatinine 0.6 MG/DL (0.55-1.30) 0.5 MG/DL (0.55-1.30) Estimat Glomerular Filtration Rate mL/min (>60) mL/min (>60) Glucose Level 118 MG/DL (74-106) 115 MG/DL (74-106) Calcium Level 7.6 MG/DL (8.5-10.1) 7.7 MG/DL (8.5-10.1) Phosphorus Level 2.8 MG/DL (2.5-4.9) 2.7 MG/DL (2.5-4.9) Magnesium Level 1.7 MG/DL (1.8-2.4) 1.7 MG/DL (1.8-2.4) Total Bilirubin 0.4 MG/DL (0.2-1.0) 0.5 MG/DL (0.2-1.0) Aspartate Amino Transf (AST/SGOT) 19 U/L (15-37) 13 U/L (15-37) Alanine Aminotransferase (ALT/SGPT) 9 U/L (12-78) 9 U/L (12-78) Alkaline Phosphatase 54 U/L (46-116) 57 U/L (46-116) Lactate Dehydrogenase 215 U/L (81-234) Total Protein 3.8 G/DL (6.4-8.2) 3.8 G/DL (6.4-8.2) Albumin 1.2 G/DL (3.4-5.0) 1.3 G/DL (3.4-5.0) Globulin 2.6 g/dL 2.5 g/dL Albumin/Globulin Ratio 0.5 (1.0-2.7) 0.5 (1.0-2.7) Differential Total Cells Counted 100 Neutrophils % (Manual) 78 % (45-75) Lymphocytes % (Manual) 14 % (20-45) Monocytes % (Manual) 3 % (1-10) Eosinophils % (Manual) 2 % (0-3) Basophils % (Manual) 1 % (0-2) Band Neutrophils 2 % (0-8) Platelet Estimate Decreased Platelet Morphology Normal Polychromasia 1+ Hypochromasia 1+ Anisocytosis 1+ Prothrombin Time 11.2 SEC (9.30-11.50) Prothromb Time International Ratio 1.1 (0.9-1.1) Activated Partial Thromboplast Time 26 SEC (23-33) Height (Feet): 5 Height (Inches): 5.00 Weight (Pounds): 139 Objective PE General Appearance: WD/WN Lines, tubes and drains: central line HEENT: normocephalic, atraumatic Neck: non-tender, normal alignment Breasts: no masses Cardiovascular/Chest: normal peripheral pulses, normal rate, regular rhythm Abdomen: normal bowel sounds, non tender ++ peg Genitourinary/Rectal: normal genital exam, heme negative stool Extremities: normal range of motion Skin Exam: normal pigmentation 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
[2018-12-02] MEDS: Hydrocortisone 2.5% Cream - 30gm TOPIC SCH ×2 (13:09→21:04)
--- NOTE | 2018-12-02 13:15 | Nephrology Progress Note ---
Assessment/Plan Problem List: (1) Hyponatremia Assessment: Na higher (2) UTI (urinary tract infection) (3) Anemia, chronic disease (4) Alzheimer's dementia (5) Parkinson disease (6) C. difficile colitis Assessment Low Na corrected GI bleed transfused other conditions Pneumonia UTI, has grewal bacteremia sacral decub dementia HTN Sz disorder Parkinsons severe Anemia Plan K and Mag supplement Albumin bolus and transfusion for low BP as needed stop HypoTonic IV solution start maintenence IV fluid Urine studies Transfusion as needed Per orders roberto carlos khalil Subjective ROS Limited/Unobtainable: No Constitutional: Reports: malaise Objective Objective Last 24 Hour Vital Signs Date Time Temp Pulse Resp B/P (MAP) Pulse Ox O2 Delivery O2 Flow Rate FiO2 12/02/18 12:37 122 20 100 12/02/18 12:16 99 16 100 12/02/18 12:00 119 12/02/18 12:00 85 19 90/63 (72) 100 12/02/18 11:00 95 16 118/73 (88) 100 12/02/18 10:00 106 14 119/97 (104) 100 12/02/18 09:00 97 15 109/69 (82) 100 12/02/18 08:00 Nasal Cannula 3.0 12/02/18 08:00 80 12/02/18 08:00 97.6 106 14 126/74 (91) 100 12/02/18 07:00 87 15 133/87 (102) 100 12/02/18 06:00 82 12 117/74 (88) 100 12/02/18 05:00 88 13 121/75 (90) 100 12/02/18 04:00 Nasal Cannula 3.0 12/02/18 04:00 98.6 85 16 131/70 (90) 100 12/02/18 03:26 88 12/02/18 03:00 83 19 128/73 (91) 100 12/02/18 02:00 87 16 138/78 (98) 100 12/02/18 01:00 89 15 141/75 (97) 100 12/02/18 00:00 98.5 85 13 126/81 (96) 100 12/02/18 00:00 Nasal Cannula 3.0 12/01/18 23:06 93 12/01/18 23:00 93 13 128/77 (94) 100 12/01/18 22:00 90 15 126/70 (88) 100 12/01/18 21:00 92 17 115/68 (84) 100 12/01/18 20:00 Nasal Cannula 3.0 12/01/18 20:00 98.6 91 18 117/71 (86) 100 12/01/18 19:49 100 Nasal Cannula 3.0 32 12/01/18 19:49 92 18 100 Nasal Cannula 3.0 32 12/01/18 19:16 88 12/01/18 19:00 91 20 114/81 (92) 100 12/01/18 18:00 93 16 108/66 (80) 100 12/01/18 17:00 92 15 116/68 (84) 100 12/01/18 16:00 98.6 83 18 112/71 (85) 100 12/01/18 16:00 88 12/01/18 16:00 Nasal Cannula 3.0 12/01/18 15:00 98.8 82 18 114/66 (82) 100 12/01/18 14:00 83 18 112/60 (77) 100 Intake and Output 12/01/18 12/02/18 19:00 07:00 Intake Total 1830 ml 2120 ml Output Total 1220 ml 1270 ml Balance 610 ml 850 ml Free Water 120 ml IV Total 1000 ml 1400 ml Tube Feeding 460 ml 180 ml Blood Product 250 ml 500 ml Other 40 ml Output Urine Total 820 ml 1270 ml Stool Total 400 ml # Bowel Movements 4 2 Laboratory Tests 12/01/18 17:30: White Blood Count 7.5, Red Blood Count 2.20L, Hemoglobin 7.0L, Hematocrit 20.1L , Mean Corpuscular Volume 91, Mean Corpuscular Hemoglobin 31.9H, Mean Corpuscular Hemoglobin Concent 35.0, Red Cell Distribution Width 14.2, Platelet Count 111L, Mean Platelet Volume 4.9L, Neutrophils (%) (Auto) , Lymphocytes (%) (Auto) , Monocytes (%) (Auto) , Eosinophils (%) (Auto) , Basophils (%) (Auto) , Differential Total Cells Counted 100, Neutrophils % (Manual) 78H, Lymphocytes % (Manual) 14L, Monocytes % (Manual) 3, Eosinophils % (Manual) 2, Basophils % ( Manual) 1, Band Neutrophils 2, Platelet Estimate DecreasedL, Platelet Morphology Normal, Polychromasia 1+, Hypochromasia 1+, Anisocytosis 1+ 12/02/18 05:25: White Blood Count 8.8, Red Blood Count 3.62L, Hemoglobin 11.5#L, Hematocrit 33.5 #L, Mean Corpuscular Volume 93, Mean Corpuscular Hemoglobin 31.7H, Mean Corpuscular Hemoglobin Concent 34.3, Red Cell Distribution Width 14.8, Platelet Count 129L, Mean Platelet Volume 5.3L, Neutrophils (%) (Auto) 78.9H, Lymphocytes (%) (Auto) 10.8L, Monocytes (%) (Auto) 6.9, Eosinophils (%) (Auto) 2.8, Basophils (%) (Auto) 0.6, Prothrombin Time 11.2, Prothromb Time International Ratio 1.1, Activated Partial Thromboplast Time 26, Sodium Level 152H, Potassium Level 3.6, Chloride Level 122H, Carbon Dioxide Level 25, Anion Gap 5, Blood Urea Nitrogen 17, Creatinine 0.5L, Estimat Glomerular Filtration Rate , Glucose Level 115H, Calcium Level 7.7L, Phosphorus Level 2.7, Magnesium Level 1.7L, Total Bilirubin 0.5, Aspartate Amino Transf (AST/SGOT) 13L, Alanine Aminotransferase (ALT/SGPT) 9L, Alkaline Phosphatase 57, Total Protein 3.8L, Albumin 1.3L, Globulin 2.5, Albumin/Globulin Ratio 0.5L Height (Feet): 5 Height (Inches): 5.00 Weight (Pounds): 139 General Appearance: no apparent distress Objective no change Kendall Trinidad MD Dec 02, 2018 13:15
--- NOTE | 2018-12-02 14:40 | NUR ---
NURSE NOTES: BLOOD TRANSFUSION TOLERATED. PATIENT KEPT CLEAN AND DRY. NOTED LARGE BLOODY STOOL (RED). WILL CONTINUE TO MONITOR.
[2018-12-02] MEDS ORDERED: fentaNYL 100 mcg/2 mL IV ONE (15:16)
[2018-12-02] MEDS ORDERED: Lidocaine 1% MPF 10mg/ml 5ml ONE (15:23)
[2018-12-02] MEDS ORDERED: Sodium Chloride 10ml vial INJ ONE (15:23)
[2018-12-02] MEDS ORDERED: Propofol 200mg/20ml IV ONE (15:23)
[2018-12-02] MEDS ORDERED: 1/2 NS 1000ml IV ONE (15:26)
[2018-12-02] MEDS ORDERED: NS 275ml ONE ×2 (15:26→16:46)
[2018-12-02] MEDS ORDERED: Tubing Blood Filter IV ONE ×2 (15:26→16:46)
[2018-12-02] MEDS ORDERED: Tubing IV Secondary IV ONE (15:26)
[2018-12-02] MEDS ORDERED: Zemuron 50mg/5ml Inj IV ONE (15:30)
[2018-12-02] MEDS ORDERED: NeoSporin Gu Irrig 1ml Amp IRRIG ONE (15:30)
[2018-12-02] MEDS ORDERED: Bacitracin 50000 Units Vial ONE (15:30)
--- NOTE | 2018-12-02 15:35 | NUR ---
NURSE NOTES: BROUGHT THE PATIENT DOWN TO OR. ENDORSED TO Adilene WELCH RN. ON-GOING [facility] TRANSFUSION. PATIENT HR WAS NOTED TO BE ELEVATED.
--- NOTE | 2018-12-02 15:39 | Pre-Procedure Note/Attestation ---
Pre-Procedure Note/Attestation Complete Prior to Procedure Planned Procedure: not applicable Procedure Narrative: exploratory laparotomy, possible bowel resection Indications for Procedure Pre-Operative Diagnosis: acute GI hemorrhage Attestation I attest that I discussed the nature of the procedure; its benefits; risks and complications; and alternatives (and the risks and benefits of such alternatives ), prior to the procedure, with the patient (or the patient's legal hospital sales representative). I attest that, if there was a reasonable possibility of needing a blood transfusion, the patient (or the patient's legal hospital sales representative) was given the [facility] standardized written summary, pursuant to the Jayro Bjorn Blood Safety Act ([place] Health and Safety Code # 1645, as amended). I attest that I re-evaluated the patient just prior to the surgery and that there has been no change in the patient's H&P, except as documented below: Andrew Eugene Dec 02, 2018 15:39
--- NOTE | 2018-12-02 15:42 | Surgery Progress Note ---
Surgery Progress Note Subjective Procedure Performed right subclavian central venous catheter insertion Additional Comments patient had upper GI today which identified a duodenal bulb ulcer that began to active hemorrhage pulsatile. patient not represented and without intervention will hemorrhage to . unable to stop bleeding via endoscope emergency surgery indicated. patient full code. unable to obtain consent from patient discussed with medical team and plan to proceed with surgery ALEX to OR for exploration and control of hemorrhage Objective Last 24 Hour Vital Signs Date Time Temp Pulse Resp B/P (MAP) Pulse Ox O2 Delivery O2 Flow Rate FiO2 12/02/18 14:00 130 23 111/74 (86) 100 12/02/18 13:00 122 19 83/63 (70) 100 12/02/18 12:37 122 20 100 12/02/18 12:16 99 16 100 12/02/18 12:00 119 12/02/18 12:00 85 19 90/63 (72) 100 12/02/18 12:00 Nasal Cannula 3.0 12/02/18 12:00 97.5 12/02/18 11:00 95 16 118/73 (88) 100 12/02/18 10:00 106 14 119/97 (104) 100 12/02/18 09:00 97 15 109/69 (82) 100 12/02/18 08:00 Nasal Cannula 3.0 12/02/18 08:00 80 12/02/18 08:00 97.6 106 14 126/74 (91) 100 12/02/18 07:00 87 15 133/87 (102) 100 12/02/18 06:00 82 12 117/74 (88) 100 12/02/18 05:00 88 13 121/75 (90) 100 12/02/18 04:00 Nasal Cannula 3.0 12/02/18 04:00 98.6 85 16 131/70 (90) 100 12/02/18 03:26 88 12/02/18 03:00 83 19 128/73 (91) 100 12/02/18 02:00 87 16 138/78 (98) 100 12/02/18 01:00 89 15 141/75 (97) 100 12/02/18 00:00 98.5 85 13 126/81 (96) 100 12/02/18 00:00 Nasal Cannula 3.0 12/01/18 23:06 93 12/01/18 23:00 93 13 128/77 (94) 100 12/01/18 22:00 90 15 126/70 (88) 100 12/01/18 21:00 92 17 115/68 (84) 100 12/01/18 20:00 Nasal Cannula 3.0 12/01/18 20:00 98.6 91 18 117/71 (86) 100 12/01/18 19:49 100 Nasal Cannula 3.0 32 12/01/18 19:49 92 18 100 Nasal Cannula 3.0 32 12/01/18 19:16 88 12/01/18 19:00 91 20 114/81 (92) 100 12/01/18 18:00 93 16 108/66 (80) 100 12/01/18 17:00 92 15 116/68 (84) 100 12/01/18 16:00 98.6 83 18 112/71 (85) 100 12/01/18 16:00 88 12/01/18 16:00 Nasal Cannula 3.0 I&O Intake and Output 12/01/18 12/02/18 19:00 07:00 Intake Total 1830 ml 2120 ml Output Total 1220 ml 1270 ml Balance 610 ml 850 ml Free Water 120 ml IV Total 1000 ml 1400 ml Tube Feeding 460 ml 180 ml Blood Product 250 ml 500 ml Other 40 ml Output Urine Total 820 ml 1270 ml Stool Total 400 ml # Bowel Movements 4 2 Dressing: other Wound: other Drains: other Cardiovascular: other Respiratory: other Abdomen: other Extremities: other Laboratory Tests Test 12/01/18 17:30 12/02/18 05:25 White Blood Count 7.5 K/UL (4.8-10.8) 8.8 K/UL (4.8-10.8) Red Blood Count 2.20 M/UL (4.70-6.10) L 3.62 M/UL (4.70-6.10) L Hemoglobin 7.0 G/DL (14.2-18.0) L 11.5 G/DL (14.2-18.0) #L Hematocrit 20.1 % (42.0-52.0) L 33.5 % (42.0-52.0) #L Mean Corpuscular Volume 91 FL (80-99) 93 FL (80-99) Mean Corpuscular Hemoglobin 31.9 PG (27.0-31.0) H 31.7 PG (27.0-31.0) H Mean Corpuscular Hemoglobin Concent 35.0 G/DL (32.0-36.0) 34.3 G/DL (32.0-36.0) Red Cell Distribution Width 14.2 % (11.6-14.8) 14.8 % (11.6-14.8) Platelet Count 111 K/UL (150-450) L 129 K/UL (150-450) L Mean Platelet Volume 4.9 FL (6.5-10.1) L 5.3 FL (6.5-10.1) L Neutrophils (%) (Auto) % (45.0-75.0) 78.9 % (45.0-75.0) H Lymphocytes (%) (Auto) % (20.0-45.0) 10.8 % (20.0-45.0) L Monocytes (%) (Auto) % (1.0-10.0) 6.9 % (1.0-10.0) Eosinophils (%) (Auto) % (0.0-3.0) 2.8 % (0.0-3.0) Basophils (%) (Auto) % (0.0-2.0) 0.6 % (0.0-2.0) Differential Total Cells Counted 100 Neutrophils % (Manual) 78 % (45-75) H Lymphocytes % (Manual) 14 % (20-45) L Monocytes % (Manual) 3 % (1-10) Eosinophils % (Manual) 2 % (0-3) Basophils % (Manual) 1 % (0-2) Band Neutrophils 2 % (0-8) Platelet Estimate Decreased L Platelet Morphology Normal Polychromasia 1+ Hypochromasia 1+ Anisocytosis 1+ Prothrombin Time 11.2 SEC (9.30-11.50) Prothromb Time International Ratio 1.1 (0.9-1.1) Activated Partial Thromboplast Time 26 SEC (23-33) Sodium Level 152 MMOL/L (136-145) H Potassium Level 3.6 MMOL/L (3.5-5.1) Chloride Level 122 MMOL/L (98-107) H Carbon Dioxide Level 25 MMOL/L (21-32) Anion Gap 5 mmol/L (5-15) Blood Urea Nitrogen 17 mg/dL (7-18) Creatinine 0.5 MG/DL (0.55-1.30) L Estimat Glomerular Filtration Rate mL/min (>60) Glucose Level 115 MG/DL (74-106) H Calcium Level 7.7 MG/DL (8.5-10.1) L Phosphorus Level 2.7 MG/DL (2.5-4.9) Magnesium Level 1.7 MG/DL (1.8-2.4) L Total Bilirubin 0.5 MG/DL (0.2-1.0) Aspartate Amino Transf (AST/SGOT) 13 U/L (15-37) L Alanine Aminotransferase (ALT/SGPT) 9 U/L (12-78) L Alkaline Phosphatase 57 U/L (46-116) Total Protein 3.8 G/DL (6.4-8.2) L Albumin 1.3 G/DL (3.4-5.0) L Globulin 2.5 g/dL Albumin/Globulin Ratio 0.5 (1.0-2.7) L Plan Problems: (1) Decubitus skin ulcer Assessment & Plan: Pt presented on admission with multiple pressure injuries. Violaceous macular rash noted to L shoulder ,Upper L side of back and lateral L chest. L upper ext edematous with scattered petechiae. Category 2 skin tear with 10% flap loss noted to L brachial. Small amt sanguineous exudate noted. Unstageable pressure injury Sacrum . Base of wound noted to have 100% mixed slough.necrosis .Edges semi-detached and erythematous. Surrounding non- blanchable erythema without elevation in skin temp ,or induration. (L)9.5cm x (W )6.5cm. NO odor or exudate noted. Full thickness pressure injury lumbar spine in close proximity to sacral pressure injury.Base of wound pink with scattered biofilm. (L)2cm x (W)1.6cm. (+ ) maceration along borders. Periwound without erythema or induration. DTPI noted to medial L heel (L)3.2cm x (W)4.5cm. Base of fluctuant with delineated erythematous borders. Periwound fluctuant with non-blanchable erythema.Additionally, an area of stable dry eschar noted to posterior L heel(L) 0.6cm x (W)0.8cm DTPI Noted to lateral R heel. Maroon discoloration that is fluctuant within base of wound.(L)2.5cm x (W)1cm. DTPI noted to medial R heel. Base of wound fluctuant and is maroon in colour (L) 1.5cm x (W)1cm. Maroon discoloration without fluctuance or induration noted to lateral R tibia , superior but in close proximity to lateral Malleolus.(L)1.4cm x (W)0.5cm. Tx.Plan: Cleanse skin tear L brachial. (Maintain Versatel Contact layer)Apply Silvasorb Gel. Cover with Optifoam drsg. Change every 7 days and prn. Cleanse Sacral wound with Saline. Apply Therahoney. Apply Moisture Barrier Paste periwound. Cover with Optifoam drsg. Change every 3 days and prn. Cleanse wound Lumbar spine with saline. Apply Therahoney. Apply Cavilon Skin Barrier periwound. Cover with Optifoam drsg. Change every 3 days and prn. Apply Cavilon Skin Barrier to Lateral R tibia, R heel and L heel. Cover each site with Optifoam drsg. Change every 7 days and prn. APM/FERNANDEZ mattress overlay. Reposition at least every 2hours or as tolerated. Off-load heels with pillow. (2) Acute DVT (deep venous thrombosis) (3) HCAP (healthcare-associated pneumonia) (4) UTI (urinary tract infection) (5) Anemia, chronic disease (6) Sepsis Assessment & Plan: acute gi bleed - active hemorrhage to OR transfuse trend labs cont abx appreciate ID input (7) Feeding by G-tube Assessment & Plan: DAILY ESTIMATED NEEDS: Needs based on Sepsis, wound 60.5kg 25-35 kcals/kg 0867-7760 total kcals 1.25-2 g protein/kg 76-121 g total protein 25-30 mL/kg 0114-0699 total fluid mLs NUTRITION DIAGNOSIS: 1) Increased kcal and pro needs r/t wound healing as evidenced by pt w/ sacral unstageable wound and L heel DTPI. 2) Swallowing difficulty r/t dysphagia as evidenced by pt w/ Parkinson's dz, GT dependent. ENTERAL NUTRITION RECOMMENDATIONS: Glucerna 1.2 @60ml/hr x24 hrs to provide 1440ml, 1728 kcal, 86g pro, 1159ml free H2O - As medically able, rec to start Glucerna 1.2 @20ml/hr, advance as tolerated 10ml q4-6 hrs to goal. - Flush per MD/ HOB over 30 degrees ADDITIONAL RECOMMENDATIONS: 1) Per SNF: 5'6" ht, 133 lbs wt 2) TELECOMMUNICATIONS ANALYST eval if oral grat is appropriate 3) Wound care: Add YOLI BID via GT + VIT C 250mg BID 4) Hypoglycemics prn/ niss (8) COPD (chronic obstructive pulmonary disease) (9) Alzheimer's dementia (10) Parkinson disease (11) Seizures (12) Hyponatremia (13) Hemorrhagic shocks (14) Severe protein-calorie malnutrition (15) Lower GI bleed Assessment & Plan: Acute lower GI bleed likely due combination of diverticulosis and Eliquis. Eliquis has been stopped for 48 hours now and bleeding seems to have resolved. Patient has been transfused and currently hemoglobin stable. Colonoscopy today performed and no active bleeding noted. Trend labs. We will continue to monitor. seems to have stopped now trend h/h (16) C. difficile colitis Andrew Eugene Dec 02, 2018 15:42
[2018-12-02] MEDS ORDERED: Metoprolol 5mg/5ml Inj ONE (15:43)
[2018-12-02] MEDS ORDERED: Phenylephrine 10mg/ml Vial ONE (16:05)
--- NOTE | 2018-12-02 16:15 | Progress Note ---
DATE: 12/02/2018 SUBJECTIVE: This is a 73-year-old male patient with sepsis and pneumonia. He has confusion, some disorganized thought process, decline in cognition below the baseline. That is why, the attending physician has requested daily psychiatric consultation. MENTAL STATUS EXAMINATION: This is a 73-year-old male patient. Appearance is disheveled. Attitude, irritable and agitated. Affect, guarded and restricted. Intellect poor. Mood, depressed and anxious. Motor activity, psychomotor agitation. Attention span is poor. Orientation x2. Speech is low volume, slurred. Thought process, disorganized and illogical. Insight and judgment is poor. DIAGNOSIS: Major depressive disorder, mild, recurrent, without psychotic features. PLAN: To continue to be followed by Psychiatry and treatment him medications to help stabilize his mood, prevent any decline in his cognition. down the ICU. Chart reviewed. Discussed with staff. The patient seen and assessed at bedside. Continue behavioral management. Laith Mason M.D. DR: RACHEL JOB#: [id number] CC:
--- NOTE | 2018-12-02 16:56 | Anethesia Preoperative Eval ---
Anesthesia Pre-op PMH/ROS General Date of Evaluation: Dec 02, 2018 Time of Evaluation: 15:30 Anesthesiologist: Linette ASA Score: ASA 4 Mallampati Score Class I : Soft palate, uvula, fauces, pillars visible Class II: Soft palate, uvula, fauces visible Class III: Soft palate, base of uvula visible Class IV: Only hard plate visible Mallampati Classification: Class III Surgeon: Lida Diagnosis: Gi bleed Surgical Procedure: Exploratory laparotomy Anesthesia History: none Family History: no anesthesia problems Allergies: Coded Allergies: No Known Allergies (Unverified , 11/18/18) Medications: see eMAR Patient NPO?: Yes NPO Date: Dec 02, 2018 NPO Time: 0000 Past Medical History Cardiovascular: Reports: HTN, arrhythmia; Denies: CAD, NM, valve dz, other Pulmonary: Reports: ALESSANDRA; Denies: asthma, COPD, other Gastrointestinal/Genitourinary: Reports: GERD, other - Recurent GI bleed Neurologic/Psychiatric: Reports: dementia, other - Parkinsons; Denies: CVA, depression/anxiety, TIA Endocrine: Reports: hypothyroidism; Denies: DM, steroids, other HEENT: Denies: cataract (L), cataract (R), glaucoma, KOI (L), KOI (R), other Hematology/Immune: Reports: anemia - posthemorrhagic, DVT - recurrent, filter in place; Denies: bleeding disorder, other Musculoskeletal/Integumentary: Reports: DJD, other - contracted Other: other - malnourished PMH Narrative: as above PSxH Narrative: see H&P Anesthesia Pre-op Phys. Exam Physician Exam Last Vital Signs Date Time Temp Pulse Resp B/P (MAP) Pulse Ox O2 Delivery O2 Flow Rate FiO2 12/02/18 14:00 130 23 111/74 (86) 100 12/02/18 12:00 Nasal Cannula 3.0 12/02/18 12:00 97.5 12/01/18 19:49 32 Constitutional: NAD Neurologic: other - unable to obtaine Cardiovascular: RRR Respiratory: CTA Gastrointestinal: S/NT/ND Airway Exam Mallampati Score: Class III MO: limited Neck: stiff ROM: limited Teeth: missing Dentures: no upper, no lower Anesthesia Pre-op A/P Labs Hematology Test 12/01/18 17:30 12/02/18 05:25 White Blood Count 7.5 K/UL (4.8-10.8) 8.8 K/UL (4.8-10.8) Red Blood Count 2.20 M/UL (4.70-6.10) L 3.62 M/UL (4.70-6.10) L Hemoglobin 7.0 G/DL (14.2-18.0) L 11.5 G/DL (14.2-18.0) #L Hematocrit 20.1 % (42.0-52.0) L 33.5 % (42.0-52.0) #L Mean Corpuscular Volume 91 FL (80-99) 93 FL (80-99) Mean Corpuscular Hemoglobin 31.9 PG (27.0-31.0) H 31.7 PG (27.0-31.0) H Mean Corpuscular Hemoglobin Concent 35.0 G/DL (32.0-36.0) 34.3 G/DL (32.0-36.0) Red Cell Distribution Width 14.2 % (11.6-14.8) 14.8 % (11.6-14.8) Platelet Count 111 K/UL (150-450) L 129 K/UL (150-450) L Mean Platelet Volume 4.9 FL (6.5-10.1) L 5.3 FL (6.5-10.1) L Neutrophils (%) (Auto) % (45.0-75.0) 78.9 % (45.0-75.0) H Lymphocytes (%) (Auto) % (20.0-45.0) 10.8 % (20.0-45.0) L Monocytes (%) (Auto) % (1.0-10.0) 6.9 % (1.0-10.0) Eosinophils (%) (Auto) % (0.0-3.0) 2.8 % (0.0-3.0) Basophils (%) (Auto) % (0.0-2.0) 0.6 % (0.0-2.0) Differential Total Cells Counted 100 Neutrophils % (Manual) 78 % (45-75) H Lymphocytes % (Manual) 14 % (20-45) L Monocytes % (Manual) 3 % (1-10) Eosinophils % (Manual) 2 % (0-3) Basophils % (Manual) 1 % (0-2) Band Neutrophils 2 % (0-8) Platelet Estimate Decreased L Platelet Morphology Normal Polychromasia 1+ Hypochromasia 1+ Anisocytosis 1+ Coagulation Test 12/02/18 05:25 Prothrombin Time 11.2 SEC (9.30-11.50) Prothromb Time International Ratio 1.1 (0.9-1.1) Activated Partial Thromboplast Time 26 SEC (23-33) Chemistry Test 12/02/18 05:25 Sodium Level 152 MMOL/L (136-145) H Potassium Level 3.6 MMOL/L (3.5-5.1) Chloride Level 122 MMOL/L (98-107) H Carbon Dioxide Level 25 MMOL/L (21-32) Anion Gap 5 mmol/L (5-15) Blood Urea Nitrogen 17 mg/dL (7-18) Creatinine 0.5 MG/DL (0.55-1.30) L Estimat Glomerular Filtration Rate mL/min (>60) Glucose Level 115 MG/DL (74-106) H Calcium Level 7.7 MG/DL (8.5-10.1) L Phosphorus Level 2.7 MG/DL (2.5-4.9) Magnesium Level 1.7 MG/DL (1.8-2.4) L Total Bilirubin 0.5 MG/DL (0.2-1.0) Aspartate Amino Transf (AST/SGOT) 13 U/L (15-37) L Alanine Aminotransferase (ALT/SGPT) 9 U/L (12-78) L Alkaline Phosphatase 57 U/L (46-116) Total Protein 3.8 G/DL (6.4-8.2) L Albumin 1.3 G/DL (3.4-5.0) L Globulin 2.5 g/dL Albumin/Globulin Ratio 0.5 (1.0-2.7) L Risk Assessment & Plan Assessment: ASA 4E Plan: GA with ETT ICU postop. ventilatory support, pressors Status Change Before Surgery: Armando Campos MD Dec 02, 2018 16:56
--- NOTE | 2018-12-02 17:02 | NUR ---
NURSE NOTES: PATIENT STILL OFF THE UNIT (SURGERY).
[2018-12-02] MEDS ORDERED: LORazepam Inj 2mg/ml 1ml IV SCH (17:25)
[2018-12-02] MEDS ORDERED: fentaNYL 100 mcg/2 mL IV SCH (17:25)
--- NOTE | 2018-12-02 18:51 | General Progress Note ---
Assessment/Plan Problem List: (1) Hyponatremia ICD Codes: E87.1 - Hypo-osmolality and hyponatremia SNOMED: 76353320 (2) Acute DVT (deep venous thrombosis) ICD Codes: I82.409 - Acute embolism and thrombosis of unspecified deep veins of unspecified lower extremity SNOMED: 328558389891176 (3) Decubitus skin ulcer ICD Codes: L89.90 - Pressure ulcer of unspecified site, unspecified stage SNOMED: 461032627 (4) Severe protein-calorie malnutrition ICD Codes: E43 - Unspecified severe protein-calorie malnutrition SNOMED: 218371569, 467657106, 267427414 (5) C. difficile colitis ICD Codes: A04.72 - Enterocolitis due to Clostridium difficile, not specified as recurrent SNOMED: 803046375 (6) Lower GI bleed ICD Codes: K92.2 - Gastrointestinal hemorrhage, unspecified SNOMED: 71439252 (7) UTI (urinary tract infection) ICD Codes: N39.0 - Urinary tract infection, site not specified SNOMED: 40344129, 527291345 Qualifiers: Qualified Codes: N30.00 - Acute cystitis without hematuria (8) HCAP (healthcare-associated pneumonia) ICD Codes: J18.9 - Pneumonia, unspecified organism SNOMED: 374860490, 359386265 (9) Anemia, chronic disease ICD Codes: D63.8 - Anemia in other chronic diseases classified elsewhere SNOMED: 846501459, 854561573 (10) Sepsis ICD Codes: A41.9 - Sepsis, unspecified organism SNOMED: 71316342, 446831280 Qualifiers: Qualified Codes: A41.9 - Sepsis, unspecified organism (11) COPD (chronic obstructive pulmonary disease) ICD Codes: J44.9 - Chronic obstructive pulmonary disease, unspecified SNOMED: 52141701 (12) Parkinson disease ICD Codes: G20 - Parkinson's disease SNOMED: 98123480 (13) Seizures ICD Codes: R56.9 - Unspecified convulsions SNOMED: 03056494 Status: progressing, unchanged Assessment/Plan: anemia sepsis pna lyte abnormality copd no wheezing not hypoxic reviewed chart and labs and meds Subjective ROS Limited/Unobtainable: Yes Cardiovascular: Reports: no symptoms Allergies: Coded Allergies: No Known Allergies (Unverified , 11/18/18) Objective Last 24 Hour Vital Signs Date Time Temp Pulse Resp B/P (MAP) Pulse Ox O2 Delivery O2 Flow Rate FiO2 12/02/18 16:00 Nasal Cannula 3.0 12/02/18 14:00 130 23 111/74 (86) 100 12/02/18 13:00 122 19 83/63 (70) 100 12/02/18 12:37 122 20 100 12/02/18 12:16 99 16 100 12/02/18 12:00 119 12/02/18 12:00 85 19 90/63 (72) 100 12/02/18 12:00 Nasal Cannula 3.0 12/02/18 12:00 97.5 12/02/18 11:00 95 16 118/73 (88) 100 12/02/18 10:00 106 14 119/97 (104) 100 12/02/18 09:00 97 15 109/69 (82) 100 12/02/18 08:00 Nasal Cannula 3.0 12/02/18 08:00 80 12/02/18 08:00 97.6 106 14 126/74 (91) 100 12/02/18 07:00 87 15 133/87 (102) 100 12/02/18 06:00 82 12 117/74 (88) 100 12/02/18 05:00 88 13 121/75 (90) 100 12/02/18 04:00 Nasal Cannula 3.0 12/02/18 04:00 98.6 85 16 131/70 (90) 100 12/02/18 03:26 88 12/02/18 03:00 83 19 128/73 (91) 100 12/02/18 02:00 87 16 138/78 (98) 100 12/02/18 01:00 89 15 141/75 (97) 100 12/02/18 00:00 98.5 85 13 126/81 (96) 100 12/02/18 00:00 Nasal Cannula 3.0 12/01/18 23:06 93 12/01/18 23:00 93 13 128/77 (94) 100 12/01/18 22:00 90 15 126/70 (88) 100 12/01/18 21:00 92 17 115/68 (84) 100 12/01/18 20:00 Nasal Cannula 3.0 12/01/18 20:00 98.6 91 18 117/71 (86) 100 12/01/18 19:49 100 Nasal Cannula 3.0 32 12/01/18 19:49 92 18 100 Nasal Cannula 3.0 32 12/01/18 19:16 88 12/01/18 19:00 91 20 114/81 (92) 100 Intake and Output 12/01/18 12/02/18 19:00 07:00 Intake Total 1830 ml 2120 ml Output Total 1220 ml 1270 ml Balance 610 ml 850 ml Free Water 120 ml IV Total 1000 ml 1400 ml Tube Feeding 460 ml 180 ml Blood Product 250 ml 500 ml Other 40 ml Output Urine Total 820 ml 1270 ml Stool Total 400 ml # Bowel Movements 4 2 Laboratory Tests 12/02/18 05:25: White Blood Count 8.8, Red Blood Count 3.62L, Hemoglobin 11.5#L, Hematocrit 33.5 #L, Mean Corpuscular Volume 93, Mean Corpuscular Hemoglobin 31.7H, Mean Corpuscular Hemoglobin Concent 34.3, Red Cell Distribution Width 14.8, Platelet Count 129L, Mean Platelet Volume 5.3L, Neutrophils (%) (Auto) 78.9H, Lymphocytes (%) (Auto) 10.8L, Monocytes (%) (Auto) 6.9, Eosinophils (%) (Auto) 2.8, Basophils (%) (Auto) 0.6, Prothrombin Time 11.2, Prothromb Time International Ratio 1.1, Activated Partial Thromboplast Time 26, Sodium Level 152H, Potassium Level 3.6, Chloride Level 122H, Carbon Dioxide Level 25, Anion Gap 5, Blood Urea Nitrogen 17, Creatinine 0.5L, Estimat Glomerular Filtration Rate , Glucose Level 115H, Calcium Level 7.7L, Phosphorus Level 2.7, Magnesium Level 1.7L, Total Bilirubin 0.5, Aspartate Amino Transf (AST/SGOT) 13L, Alanine Aminotransferase (ALT/SGPT) 9L, Alkaline Phosphatase 57, Total Protein 3.8L, Albumin 1.3L, Globulin 2.5, Albumin/Globulin Ratio 0.5L Height (Feet): 5 Height (Inches): 5.00 Weight (Pounds): 139 Neck: supple Cardiovascular: normal rate Respiratory/Chest: lungs clear Abdomen: non tender Yohana Garay MD Dec 02, 2018 18:51
--- NOTE | 2018-12-02 19:10 | NUR ---
NURSE NOTES: RECEIVED PATIENT FROM OR. PATIENT IS ORALLY INTUBATED 7.5 AT 25CM LIP LINE. AC 10, TV 600, FiO2 50%, PEEP 0. WITH SURGICAL SITE, CLEAN AND DRY. ANGIE DRAIN NOTED. STILL WITH GT. PLT IS RUNNING. CALL LIGHT WITHIN REACH. BED AT LOWEST POSITION. WILL CONTINUE TO MONITOR.
--- NOTE | 2018-12-02 19:19 | Brief Operative Note ---
Immediate Post Operative Note Operative Note Pre-op Diagnosis: acute GI hemorrhage Procedure: 1. exploratory laparotomy 2. Anterior duodenotomy for control of large posterior duodenal ulcer hemorrhage 3. closure of duodenotomy 4. pyloric exclusion with gastrojejunostomy 5. abdominal washout 6. abdominal drain placement Post-op Diagnosis: large posterior duodenal ulcer hemorrhage Surgeon: luzmaria Anesthesiologist: meghana Anesthesia: general Specimen: none Complications: none Condition: unstable Fluids: see records Estimated Blood Loss: volume - 50 Drains: ANGIE Implant(s) used?: No Andrew Eugene Dec 02, 2018 19:19
--- NOTE | 2018-12-02 19:19 | Immediate Post-Op Evaluation ---
Immediate Post-Op Evalulation Immediate Post-Op Evalulation Procedure: Exploratory laparotomy duodenal ulcer repair Date of Evaluation: Dec 02, 2018 Time of Evaluation: 19:18 IV Fluids: 400 Blood Products: Albumin 250 PRBC 1unit Estimated Blood Loss: 200 Urinary Output: 100 Blood Pressure Systolic: 92 Blood Pressure Diastolic: 48 Pulse Rate: 106 Respiratory Rate: 18 O2 Sat by Pulse Oximetry: 98 Temperature (Fahrenheit): 97.4 Pain Score (1-10): 1 Nausea: No Vomiting: No Complications none Patient Status: no response, ventilated, none Hydration Status: adequate Armando Sue MD Dec 02, 2018 19:19
--- NOTE | 2018-12-02 19:30 | NUR ---
NURSE NOTES:Received pt just came from OR, S/P Explore lap, orally intubated , sedated , eyes covered with paper tape. Orally intubated n AC mode, SR_ST with Pacs, Bp low on the 70s, Dr Eugene at bedside, with orders given (pls see orders) Abdominal drsg dry and intact with bobby Bennett Right abdominal side, draining bloody drainage, no bowel sounds at this time. Gtube clamp and will place to gravity.Both arms with 3-4+ edema , scattered ecchymosis and mottled lower extremities, extremities cool to touch, Bradley to gravity with alexandrea yellow urine, approximately 30-50ml/hr. Pt with pressure sores, covered with drg dry and intact. pls see pictures.on Overlay mattress. Turned q 2hrs Prn with good skin care done. Will continue to monitor.
--- NOTE | 2018-12-02 19:30 | NUR ---
NURSE NOTES: SEEN AND EXAMINED BY DR SEBASTIAN WITH NEW ORDERS MADE AND CARRIED OUT. WILL CONTINUE TO MONITOR.
--- NOTE | 2018-12-02 20:00 | NUR ---
HAND-OFF: Report given to Tiburcio Hernandez RN.
--- NOTE | 2018-12-02 20:00 | NUR ---
NURSE NOTES:Albumin 5% 500 ml was given followed wit Levophed drip at 10mcg/min at this time for low Bp. Protonix at 8mg/hr and D5W at 75ml/hr. infusing as well to RT SVC central line. site with drsg dry and intact. will continue to monitor.
[2018-12-02] MEDS ORDERED: Morphine Sulfate 2mg/ml Inj(IV/IM USE ONLY) IVP PRN (20:15)
[2018-12-02 20:21] LABS: HEMATOCRIT 30.2 % (42.0-52.0); HEMOGLOBIN 10.1 G/DL (14.2-18.0); MEAN CORPUSCULAR VOLUME 91 FL (80-99); PLATELET COUNT 148 K/UL (150-450); RED CELL DISTRIBUTION WIDTH 15.5 % (11.6-14.8); WHITE BLOOD COUNT 16.1 K/UL (4.8-10.8)
[2018-12-02] MEDS: Dyna-Hex 2% Top Sol 2oz TOPIC SCH (20:23)
[2018-12-02 20:24] LABS: ANION GAP 7 mmol/L (5-15); BLOOD UREA NITROGEN 20 mg/dL (7-18); CALCIUM 7.3 MG/DL (8.5-10.1); CARBON DIOXIDE 23 MMOL/L (21-32); CHLORIDE 119 MMOL/L (98-107); CREATININE 0.6 MG/DL (0.55-1.30); POTASSIUM 4.3 MMOL/L (3.5-5.1); SODIUM 149 MMOL/L (136-145)
[2018-12-02 20:26] LABS: INR 1.2 (0.9-1.1)
[2018-12-02 20:30] LABS: ALANINE AMINOTRANSFERASE 24 U/L (12-78); ALBUMIN 1.6 G/DL (3.4-5.0); ALBUMIN/GLOBULIN RATIO 0.8 (1.0-2.7); ALKALINE PHOSPHATASE 41 U/L (46-116); ASPARTATE AMINO TRANSFERASE 52 U/L (15-37); BILIRUBIN,TOTAL 0.7 MG/DL (0.2-1.0)
[2018-12-02] MEDS ORDERED: Midazolam 2mg/2ml Inj IVP PRN (20:30)
[2018-12-02] MEDS ORDERED: Midazolam 2mg/2ml Inj IVP SCH (21:00)
--- NOTE | 2018-12-02 21:00 | NUR ---
NURSE NOTES:Stat labs came back. values were in acceptable range.
--- NOTE | 2018-12-02 22:00 | NUR ---
NURSE NOTES:Levophed drip down to 6mcg/min at this time
--- NOTE | 2018-12-02 23:15 | Operative Note - Dictated ---
DATE OF OPERATION: 12/02/2018 PREOPERATIVE DIAGNOSIS: Acute gastrointestinal hemorrhage. POSTOPERATIVE DIAGNOSIS: Large posterior duodenal ulcer with active hemorrhage. OPERATION PERFORMED: 1. Exploratory laparotomy. 2. Anterior duodenostomy for control of large posterior duodenal ulcer hemorrhage. 3. Closure of anterior duodenostomy. 4. Pyloric exclusion with retrocolic gastrojejunostomy. 5. Abdominal washout. 6. Abdominal drain placement. 7. Abdominal closure. ATTENDING SURGEON: Andrew Eugene M.D. RAILROAD CAR REPAIRMAN: None. ANESTHESIOLOGIST: Armando Sue M.D. ANESTHESIA: General GETA. ESTIMATED BLOOD LOSS: 50 mL. IV FLUIDS: Please see anesthesia records. COMPLICATIONS: None. DRAINS: A Bhupendra-Bennett drain left around the duodenal closure. COUNTS: Sponge and needle count correct x2. WOUND CLASSIFICATION: Class III. ANTIBIOTICS: The patient on scheduled IV antibiotics. INDICATIONS FOR PROCEDURE: This is a 73-year-old male who is currently at [facility] with ongoing active gastrointestinal hemorrhage. The patient had upper endoscopy today, which identified duodenal ulcer with active hemorrhage. Unfortunately, hemorrhage cannot be controlled with endoscopic approach and surgery was indicated and recommended. The patient is not represented and currently unable to consent. The patient is full code and without surgical intervention hemorrhage would continue with ultimately leading to . Given this emergency surgery was indicated and recommended. Emergent surgery was medically necessary. Discussed with medical teams. OPERATIVE NOTE: The patient was taken emergently to the operating room directly from the intensive care unit. The patient was placed on the operating table in supine position with bilateral arms out. The patient already had a Bradley catheter. The patient already had a G-tube. Preoperative time-out taken out identifying the patient, procedure, operative site, and surgical staff. SCDs were placed. General anesthesia was induced and the patient was intubated. The abdomen was clipped, prepped and draped in standard surgical fashion. A midline incision was made from the xiphoid to just above the umbilicus. Using a fresh #10 scalpel, incision was carried down to through the subcutaneous tissue to the fascia with electrocautery. The fascia was incised and the abdomen was entered without complication. Upon entering the abdomen, there was a fair amount of ascites fluid identified, which was evacuated approximately 1.2 liters. A Bookwalter retractor was placed and the abdomen was inspected. The small bowel and colon were otherwise healthy but with significant amounts of notable blood within them. They were mildly distended. The stomach was identified and no abnormalities were noted. The gastrocolic ligament was noted, incised and entered. The lesser sac was noted and no bleeding or perforation was noted. No abnormal gastric ulcers were noted as identified by the endoscopy as well. At this time, since the endoscopic evaluation identified the actively bleeding ulcer in the first portion of the duodenum/duodenal bulb, decision was made to first perform a generous Hugo maneuver to ensure ability for appropriate visualization and exposure. The omentum overlying the gallbladder was gently dissected out and hepatic flexure of the colon was identified. The hepatic flexure was incised the [place] and taken down and the right colon was mobilized. Following this, the duodenum was identified and using blunt dissection, Hugo was performed mobilizing the duodenum. A Ibrahima maneuver was performed, but no clamp was placed, but available in case of worsening hemorrhage. At this time, the stomach was mobilized. The right colon was mobilized as well as good appropriate Kocherization of the duodenum. The anterior wall of the stomach as well as posterior wall were clearly identified and visualized. The location of the pancreas was noted. The pylorus was identified. Two stay sutures were placed in the first portion of the duodenum just distal to the pylorus. Anterior longitudinal incision was made in the first portion of the duodenum. In doing so, the endoscopic clip was immediately identified. A large posterior duodenal bulb ulcer was identified and running directly into the pancreas. Around the clip, there was active hemorrhage noted. To obtain a better exposure, the clip was removed and further active hemorrhage was noted. Direct point finger pressure was held and hemostasis was controlled. The site was suctioned and we began preparation for hemorrhage control. A 4-0 Prolene suture sutures were then used to obtain control of the GDA fascia and area of hemorrhage by placing anterior-posterior [id number] and medial U-stitch. Adequate hemostasis was obtained and large ulcer was identified and was monitored for few minutes to ensure adequate hemostasis. Once this was noted completed, given the size and the location of the ulcer, there was definite significant concerns for rebleed, duodenal leak, and further complications. At this time, decision made to perform a pyloric exclusion after pelvic exclusion with a gastrojejunostomy. Of note, there was bile noted coming distally from the anterior duodenostomy refluxing upwards. At this time, the site was irrigated and suctioned. No active bleeding was noted. The anterior longitudinal duodenostomy was closed in a transverse fashion with a 3-0 Vicryl running suture. Following this, a lip of omentum was created from right side of the omentum and placed over the duodenal closure. A window was made at the level of the pylorus and distal gastrium, both that the greater and lesser curvature, and a 16 mm TIA stapler was used and fired. A pyloric exclusion was performed successfully. At this time, small bowel was run and no abnormalities were noted. A window was made in the transverse colon and a retrocolic portion of the proximal jejunum was brought through. An anterior gastrojejunostomy was performed in a two-layer fashion beginning with 3-0 pop-off posterior layers followed by a gastrotomy and enterotomy and a running Vicryl anastomosis followed by anterior 3-0 silk Lembert interrupted sutures. The patency of the gastrostomy was noted at the end of the anastomosis with good patent, adequacy, and good hemostasis. At this time, the remaining abdomen was inspected. No abnormalities were noted. Good hemostasis noted. The abdomen was irrigated and suctioned and washout was performed and once this was complete, decision made to leave a drain in the right upper quadrant around the duodenal repair. A 19-Danish Isaias drain was placed in the right upper quadrant into the abdomen, placed in the right upper quadrant around the area of the duodenal repair. Prior to final closure, the during repair was identified, noted to be adequate and omental lip placed over satisfactory without complication. The pyloric exclusion was hemostatic and intact and staple line was noted without complication. The retrocolic gastrojejunostomy was identified, noted to be intact and hemostatic. At this time, we began the conclusion of our procedure. The fascia was reapproximated using a 0 looped PDS suture. Skin incision was cleansed and reapproximated using skin carmel. Dressings were applied. Drain was placed to suction. The patient tolerated the procedure well, was left intubated, taken directly to the intensive care unit for recovery. Andrew Eugene M.D. DR: Mau JOB#: [id number] CC: DAIANA
[2018-12-03] VITALS (53 sets, daily range): BP systolic 80–146; BP diastolic 52–91
--- NOTE | 2018-12-03 | NUR ---
NURSE NOTES:Levophed drip down to 4mcg/min. SBp still >100
--- NOTE | 2018-12-03 01:21 | NUR ---
NURSE NOTES:Levophed drip down to 2 mcg/min. Bp 107/69
--- NOTE | 2018-12-03 03:00 | NUR ---
NURSE NOTES:Turned off levophed drip. sbp 107/65
--- NOTE | 2018-12-03 05:00 | NUR ---
NURSE NOTES:complete bath with bed change done.
--- NOTE | 2018-12-03 06:00 | NUR ---
NURSE NOTES:VSS, no active bleeding noted.
[2018-12-03 06:33] LABS: HEMATOCRIT 28.4 % (42.0-52.0); HEMOGLOBIN 9.6 G/DL (14.2-18.0); MEAN CORPUSCULAR VOLUME 91 FL (80-99); PLATELET COUNT 162 K/UL (150-450); RED BLOOD COUNT 3.11 M/UL (4.70-6.10); RED CELL DISTRIBUTION WIDTH 16.4 % (11.6-14.8); WHITE BLOOD COUNT 15.6 K/UL (4.8-10.8)
[2018-12-03 06:39] LABS: INR 1.2 (0.9-1.1)
[2018-12-03 06:52] LABS: PHOSPHORUS 2.7 MG/DL (2.5-4.9)
[2018-12-03] MEDS: Pantoprazole 80 MG in NS 250 ML IV SCH ×2 (06:57→15:17)
--- NOTE | 2018-12-03 07:15 | NUR ---
HAND-OFF: Report given to Lonnie DUNN.
--- NOTE | 2018-12-03 07:17 | NUR ---
RESPIRATORY NOTE: received pt on current vent settings, orally intubated with 7.5 ETT placed 25 cm at the lip, secured via anchor fast. no visible redness on cheeks, but cracked/dried lips on the left. RN notified. no resp distres noted at this time. alarms are set and audible with ambu bag at bedside. will cont to monitor throughout the day.
[2018-12-03 07:20] LABS: ALANINE AMINOTRANSFERASE 25 U/L (12-78); ALBUMIN/GLOBULIN RATIO 1.1 (1.0-2.7); ALKALINE PHOSPHATASE 42 U/L (46-116); ANION GAP 10 mmol/L (5-15); ASPARTATE AMINO TRANSFERASE 29 U/L (15-37); BLOOD UREA NITROGEN 19 mg/dL (7-18); CALCIUM 7.7 MG/DL (8.5-10.1); CARBON DIOXIDE 22 MMOL/L (21-32); CHLORIDE 120 MMOL/L (98-107); CREATININE 0.6 MG/DL (0.55-1.30); POTASSIUM 3.5 MMOL/L (3.5-5.1); SODIUM 152 MMOL/L (136-145)
--- NOTE | 2018-12-03 07:32 | NUR ---
NURSE NOTES: Patient received lying in bed, awake, tracks and follows. Orally intubated ET 7.5, left side, lip at 25, AC -10, TV- 600 and FiO2 of 30 %, saturating 100%, lung sounds diminished. G-tube to gravity, brownish to greenish colored output noted, NPO. Bradley catheter draining to gravity, tea colored urine noted. + 3 pitting noted to upper extremities. Right upper subclavian IV running Pantoprazole drip at 25 ml/hr and D5W at 75 ml/hr, infusing well. Lower extremities noted with + 2 pitting edema. Sinus Rhythm on the monitor. Bed at semi-hauser's position. Extremties elevated. Wound dressings intact. Bed at lowest position for safety. Will continue to monitor.
[2018-12-03] MEDS: Lactobacillus-GG tablet ORAL SCH ×3 (08:23→17:00)
[2018-12-03] MEDS: Vancomycin oral 125mg/2.5ml ORAL SCH ×4 (08:23→21:00)
[2018-12-03] MEDS: Levodopa/Carbidopa 25/100 tab GT SCH ×3 (08:23→17:00)
--- NOTE | 2018-12-03 08:36 | 48 Hour Post Anesthesia Eval ---
Post Anesthesia Evaluation Procedure: Exploratory laparotomy duodenal ulcer repair Date of Evaluation: Dec 03, 2018 Blood Pressure Systolic: 90 0: 52 Pulse Rate: 106 Respiratory Rate: 16 Temperature (Fahrenheit): 98.6 O2 Sat by Pulse Oximetry: 100 Airway: other - intubated, on mechanical ventilation Nausea: No Vomiting: No Pain Intensity: 0 Hydration Status: adequate Cardiopulmonary Status: at baseline Mental Status/LOC: patient returned to baseline Post-Anesthesia Complications: 0 Follow-up care needed: N/A - further care as per primary team Christine Dorantes MD Dec 03, 2018 08:36
--- NOTE | 2018-12-03 08:37 | NUR ---
NURSE NOTES: Dr. Washington ordered digoxin 0.5mg IVP STAT. Noted and carried out.
--- NOTE | 2018-12-03 08:38 | NUR ---
NURSE NOTES: Dr. Washington contacted for patient's heart rate 180, SVT, reaching as high as 202 for a quick second as seen on room cardia monitor. BP trended low SBP of 80s. Will place patient back on levophed drip.
[2018-12-03] MEDS ORDERED: Digoxin 0.5mg/2ml Inj IVP SCH ×2 (08:46→14:15)
[2018-12-03] MEDS ORDERED: Eliquis 5mg tablet GT SCH (09:00)
--- NOTE | 2018-12-03 09:03 | NUR ---
NURSE NOTES: Update Dr. Reis, heart rate range was 160-180s, 12 lead EKG done, showed Atrial Fibrillation with RVR, BP now stable with levophed drip. Will continue to monitor.
--- NOTE | 2018-12-03 09:10 | NUR ---
NURSE NOTES: Morphine 2 mg IV pulled up from [facility], 1 mg IV wasted with MONA Ocampo. Order was noted for 2 mg IVP on eMAR. Wasted the remaining 1 mg with Alaina DUNN. Pulled out another 2 mg IV of morphine and administered to patient as ordered.
[2018-12-03] MEDS: Morphine Sulfate 2mg/ml Inj(IV/IM USE ONLY) IVP PRN (09:11)
[2018-12-03] MEDS ORDERED: Vancomycin 1gm/D5W 275ml IVPB ONE ×2 (09:30)
--- NOTE | 2018-12-03 10:30 | Pulmonolgy Critical Care Note ---
Critical Care - Asmt/Plan Problems: (1) Hemorrhagic shocks (2) Status post exploratory laparotomy (3) Duodenal ulcer hemorrhage (4) SVT (supraventricular tachycardia) (5) HCAP (healthcare-associated pneumonia) (6) Acute DVT (deep venous thrombosis) (7) COPD (chronic obstructive pulmonary disease) (8) S/P insertion of IVC (inferior vena caval) filter (9) C. difficile colitis (10) Alzheimer's dementia (11) Parkinson disease (12) Feeding by G-tube (13) Seizures (14) Severe protein-calorie malnutrition Respiratory: monitor respiratory rate, adjust FIO2, CXR Cardiac: continue to monitor HR/BP Renal: keep IV fluid Infectious Disease: check cultures Gastrointestinal: continue feedings/current rate, hold feedings Endocrine: monitor blood sugar Neurologic: PRN Ativan Critical Care - Objective Last 24 Hour Vital Signs Date Time Temp Pulse Resp B/P (MAP) Pulse Ox O2 Delivery O2 Flow Rate FiO2 12/03/18 10:00 144 15 99 12/03/18 09:45 143 16 102/69 (80) 100 12/03/18 09:30 143 18 91/62 (72) 99 12/03/18 09:29 142 17 95/65 (75) 99 12/03/18 09:15 143 18 87/58 (68) 99 12/03/18 09:12 146 21 30 12/03/18 09:11 84/59 12/03/18 09:00 147 18 84/59 (67) 99 12/03/18 08:57 85/50 12/03/18 08:54 180 12/03/18 08:45 160 19 131/86 (101) 12/03/18 08:44 166 23 108/86 (93) 98 12/03/18 08:36 106 16 100 12/03/18 08:33 188 19 85/62 (70) 100 12/03/18 08:30 126 19 80/60 (67) 100 12/03/18 08:15 108 17 99 12/03/18 08:00 109 17 112/67 (82) 100 12/03/18 08:00 30 12/03/18 08:00 109 12/03/18 08:00 Mechanical Ventilator 12/03/18 07:45 109 17 100 12/03/18 07:30 106 17 104/64 (77) 100 12/03/18 07:15 112 20 100 12/03/18 07:13 112 22 30 12/03/18 07:00 114 16 109/71 (84) 100 12/03/18 05:06 106 16 30 12/03/18 04:00 Mechanical Ventilator 12/03/18 04:00 115 12/03/18 04:00 40 12/03/18 03:00 90/52 12/03/18 02:50 99 15 30 12/03/18 02:00 111/65 12/03/18 01:29 102 16 30 12/03/18 01:00 116/82 12/03/18 00:00 125/73 12/03/18 00:00 Mechanical Ventilator 12/03/18 00:00 40 12/02/18 23:30 113/75 12/02/18 23:15 118/67 12/02/18 23:00 121/71 12/02/18 22:53 95 18 40 12/02/18 22:45 124/71 12/02/18 22:30 121/76 12/02/18 22:15 124/71 12/02/18 22:00 121/81 12/02/18 21:45 123/81 12/02/18 21:30 123/75 12/02/18 21:15 134/80 12/02/18 21:12 98 20 40 12/02/18 21:02 98.6 85 22 135/90 (105) 100 12/02/18 21:00 98.6 99 22 129/88 (102) 100 12/02/18 21:00 40 12/02/18 20:56 129/86 12/02/18 20:45 98.6 99 23 129/88 (102) 100 12/02/18 20:41 121/86 12/02/18 20:30 98.6 94 22 99/67 (78) 99 12/02/18 20:26 90/63 12/02/18 20:00 50 12/02/18 20:00 Mechanical Ventilator 12/02/18 20:00 98.6 101 21 92/68 (76) 100 12/02/18 20:00 101 12/02/18 19:19 106 18 98 12/02/18 19:17 102 15 100 Mechanical Ventilator 50 12/02/18 19:15 98.2 101 21 77/54 (62) 100 12/02/18 19:12 102 15 50 12/02/18 16:00 Nasal Cannula 3.0 12/02/18 14:00 130 23 111/74 (86) 100 12/02/18 13:00 122 19 83/63 (70) 100 12/02/18 12:37 122 20 100 12/02/18 12:16 99 16 100 12/02/18 12:00 119 12/02/18 12:00 85 19 90/63 (72) 100 12/02/18 12:00 Nasal Cannula 3.0 12/02/18 12:00 97.5 12/02/18 11:00 95 16 118/73 (88) 100 Status: awake, sedated Condition: critical Neck: full ROM Lungs: chest wall tender Heart: HR/BP stable Abdomen: soft Extremities: no C/C/E Critical Care - Subjective ROS Limited/Unobtainable: No Interval Events: had exploratory laparotomy last night, actively bleeding duodenal ulcer Condition: critical FI02: 30 Vent Support Breath Rate: 10 Vent Support Mode: AC Vent Tidal Volume: 600 Sputum Amount: Small PEEP: 0.0 PIP: 16 Drips: levophed Tube Feeding Amount: 0 I&O: Intake and Output 12/02/18 12/03/18 19:00 07:00 Intake Total 1804 ml 1397.25 ml Output Total 875 ml 680 ml Balance 929 ml 717.25 ml IV Total 1004 ml 1397.25 ml Blood Product 800 ml Output Urine Total 825 ml 590 ml Drainage Total 50 ml 90 ml # Bowel Movements 4 ET-Tube: 7.5 ET Position: 25 Labs: Laboratory Tests Test 12/02/18 20:05 12/03/18 06:00 White Blood Count 16.1 K/UL (4.8-10.8) #H 15.6 K/UL (4.8-10.8) H Red Blood Count 3.30 M/UL (4.70-6.10) L 3.11 M/UL (4.70-6.10) L Hemoglobin 10.1 G/DL (14.2-18.0) L 9.6 G/DL (14.2-18.0) L Hematocrit 30.2 % (42.0-52.0) L 28.4 % (42.0-52.0) L Mean Corpuscular Volume 91 FL (80-99) 91 FL (80-99) Mean Corpuscular Hemoglobin 30.5 PG (27.0-31.0) 31.0 PG (27.0-31.0) Mean Corpuscular Hemoglobin Concent 33.4 G/DL (32.0-36.0) 33.9 G/DL (32.0-36.0) Red Cell Distribution Width 15.5 % (11.6-14.8) H 16.4 % (11.6-14.8) H Platelet Count 148 K/UL (150-450) L 162 K/UL (150-450) Mean Platelet Volume 5.7 FL (6.5-10.1) L 5.8 FL (6.5-10.1) L Neutrophils (%) (Auto) % (45.0-75.0) % (45.0-75.0) Lymphocytes (%) (Auto) % (20.0-45.0) % (20.0-45.0) Monocytes (%) (Auto) % (1.0-10.0) % (1.0-10.0) Eosinophils (%) (Auto) % (0.0-3.0) % (0.0-3.0) Basophils (%) (Auto) % (0.0-2.0) % (0.0-2.0) Differential Total Cells Counted 100 100 Neutrophils % (Manual) 85 % (45-75) H 93 % (45-75) H Lymphocytes % (Manual) 7 % (20-45) L 2 % (20-45) L Monocytes % (Manual) 4 % (1-10) 5 % (1-10) Eosinophils % (Manual) 0 % (0-3) 0 % (0-3) Basophils % (Manual) 1 % (0-2) 0 % (0-2) Band Neutrophils 3 % (0-8) 0 % (0-8) Platelet Estimate Decreased L Adequate Platelet Morphology Normal Normal Hypochromasia 1+ 2+ Anisocytosis 1+ Prothrombin Time 12.2 SEC (9.30-11.50) H 13.0 SEC (9.30-11.50) H Prothromb Time International Ratio 1.2 (0.9-1.1) H 1.2 (0.9-1.1) H Arterial Blood pH 7.402 (7.350-7.450) Arterial Blood Partial Pressure CO2 30.9 mmHg (35.0-45.0) L Arterial Blood Partial Pressure O2 116.1 mmHg (75.0-100.0) H Arterial Blood HCO3 18.8 mmol/L (22.0-26.0) L Arterial Blood Oxygen Saturation 97.8 % (95-100) Arterial Blood Base Excess -5.1 (-2-2) L Blake Test Positive Sodium Level 149 MMOL/L (136-145) H 152 MMOL/L (136-145) H Potassium Level 4.3 MMOL/L (3.5-5.1) 3.5 MMOL/L (3.5-5.1) Chloride Level 119 MMOL/L (98-107) H 120 MMOL/L (98-107) H Carbon Dioxide Level 23 MMOL/L (21-32) 22 MMOL/L (21-32) Anion Gap 7 mmol/L (5-15) 10 mmol/L (5-15) Blood Urea Nitrogen 20 mg/dL (7-18) H 19 mg/dL (7-18) H Creatinine 0.6 MG/DL (0.55-1.30) 0.6 MG/DL (0.55-1.30) Estimat Glomerular Filtration Rate mL/min (>60) mL/min (>60) Glucose Level 171 MG/DL (74-106) H 170 MG/DL (74-106) H Calcium Level 7.3 MG/DL (8.5-10.1) L 7.7 MG/DL (8.5-10.1) L Total Bilirubin 0.7 MG/DL (0.2-1.0) 1.0 MG/DL (0.2-1.0) Aspartate Amino Transf (AST/SGOT) 52 U/L (15-37) H 29 U/L (15-37) Alanine Aminotransferase (ALT/SGPT) 24 U/L (12-78) 25 U/L (12-78) Alkaline Phosphatase 41 U/L (46-116) L 42 U/L (46-116) L Total Protein 3.7 G/DL (6.4-8.2) L 3.8 G/DL (6.4-8.2) L Albumin 1.6 G/DL (3.4-5.0) L 2.0 G/DL (3.4-5.0) L Globulin 2.1 g/dL 1.8 g/dL Albumin/Globulin Ratio 0.8 (1.0-2.7) L 1.1 (1.0-2.7) Spherocytes 2+ Activated Partial Thromboplast Time 30 SEC (23-33) Phosphorus Level 2.7 MG/DL (2.5-4.9) Magnesium Level 1.7 MG/DL (1.8-2.4) L Random Vancomycin Level 7.1 ug/mL David Carrasquillo MD Dec 03, 2018 10:30
--- NOTE | 2018-12-03 10:48 | Diagnostic Imaging Report ---
Indication: Post intubation Technique: One view of the chest Comparison: 12/01/2018 Findings: Interim endotracheal intubation, endotracheal tube tip in good position approximately 3 cm above the sandra. There is slightly increased hazy infiltrate at the right lung base. Hazy left perihilar and retrocardiac infiltrate again demonstrated, may be slightly increased in the retrocardiac region. Normal heart size. Right subclavian central venous catheter again demonstrated. There are midline skin carmel Impression: Satisfactory endotracheal intubation Slightly increased bilateral infiltrates Evidence of recent abdominal surgery
[2018-12-03] MEDS: Hydrocortisone 2.5% Cream - 30gm TOPIC SCH ×2 (10:52→20:38)
--- NOTE | 2018-12-03 11:32 | General Progress Note ---
Assessment/Plan Problem List: (1) Seizures ICD Codes: R56.9 - Unspecified convulsions SNOMED: 76250709 (2) Parkinson disease ICD Codes: G20 - Parkinson's disease SNOMED: 78649806 (3) Alzheimer's dementia ICD Codes: G30.9 - Alzheimer's disease, unspecified; F02.80 - Dementia in other diseases classified elsewhere without behavioral disturbance SNOMED: 30488743 (4) COPD (chronic obstructive pulmonary disease) ICD Codes: J44.9 - Chronic obstructive pulmonary disease, unspecified SNOMED: 05777323 (5) Feeding by G-tube ICD Codes: Z93.1 - Gastrostomy status SNOMED: 955241894, 610828275, 905389998 (6) Anemia, chronic disease ICD Codes: D63.8 - Anemia in other chronic diseases classified elsewhere SNOMED: 666917884, 845621970 Status: progressing, unchanged Assessment/Plan: Duodenal ulcer s/p SURG POD #1 npo iv ppi stable H&H will fu Subjective ROS Limited/Unobtainable: No Allergies: Coded Allergies: No Known Allergies (Unverified , 11/18/18) Objective Last 24 Hour Vital Signs Date Time Temp Pulse Resp B/P (MAP) Pulse Ox O2 Delivery O2 Flow Rate FiO2 12/03/18 10:33 146 15 30 12/03/18 10:30 146 15 101/77 (85) 100 12/03/18 10:15 145 15 98/67 (77) 100 12/03/18 10:00 144 15 99/69 (79) 99 12/03/18 10:00 99/69 12/03/18 09:45 143 16 102/69 (80) 100 12/03/18 09:30 85/65 12/03/18 09:30 142 17 95/65 (75) 99 12/03/18 09:15 143 18 87/58 (68) 99 12/03/18 09:12 146 21 30 12/03/18 09:11 84/59 12/03/18 09:00 147 18 84/59 (67) 99 12/03/18 08:57 85/50 12/03/18 08:54 180 12/03/18 08:45 188 19 85/62 (70) 100 12/03/18 08:36 106 16 100 7/10/19 08:30 126 19 80/60 (67) 100 12/03/18 08:00 30 12/03/18 08:00 109 12/03/18 08:00 Mechanical Ventilator 12/03/18 08:00 99.2 109 17 112/67 (82) 100 12/03/18 07:13 112 22 30 12/03/18 07:00 114 16 109/71 (84) 100 12/03/18 05:06 106 16 30 12/03/18 04:00 Mechanical Ventilator 12/03/18 04:00 115 12/03/18 04:00 40 12/03/18 03:00 90/52 12/03/18 02:50 99 15 30 12/03/18 02:00 111/65 12/03/18 01:29 102 16 30 12/03/18 01:00 116/82 12/03/18 00:00 125/73 12/03/18 00:00 Mechanical Ventilator 12/03/18 00:00 40 12/02/18 23:30 113/75 12/02/18 23:15 118/67 12/02/18 23:00 121/71 12/02/18 22:53 95 18 40 12/02/18 22:45 124/71 12/02/18 22:30 121/76 12/02/18 22:15 124/71 12/02/18 22:00 121/81 12/02/18 21:45 123/81 12/02/18 21:30 123/75 12/02/18 21:15 134/80 12/02/18 21:12 98 20 40 12/02/18 21:02 98.6 85 22 135/90 (105) 100 12/02/18 21:00 98.6 99 22 129/88 (102) 100 12/02/18 21:00 40 12/02/18 20:56 129/86 12/02/18 20:45 98.6 99 23 129/88 (102) 100 12/02/18 20:41 121/86 12/02/18 20:30 98.6 94 22 99/67 (78) 99 12/02/18 20:26 90/63 12/02/18 20:00 50 12/02/18 20:00 Mechanical Ventilator 12/02/18 20:00 98.6 101 21 92/68 (76) 100 12/02/18 20:00 101 12/02/18 19:19 106 18 98 12/02/18 19:17 102 15 100 Mechanical Ventilator 50 12/02/18 19:15 98.2 101 21 77/54 (62) 100 12/02/18 19:12 102 15 50 12/02/18 16:00 Nasal Cannula 3.0 12/02/18 14:00 130 23 111/74 (86) 100 12/02/18 13:00 122 19 83/63 (70) 100 12/02/18 12:37 122 20 100 12/02/18 12:16 99 16 100 12/02/18 12:00 119 12/02/18 12:00 85 19 90/63 (72) 100 12/02/18 12:00 Nasal Cannula 3.0 12/02/18 12:00 97.5 Intake and Output 12/02/18 12/03/18 19:00 07:00 Intake Total 1804 ml 1397.25 ml Output Total 875 ml 680 ml Balance 929 ml 717.25 ml IV Total 1004 ml 1397.25 ml Blood Product 800 ml Output Urine Total 825 ml 590 ml Drainage Total 50 ml 90 ml # Bowel Movements 4 Laboratory Tests 12/02/18 20:05: White Blood Count 16.1#H, Red Blood Count 3.30L, Hemoglobin 10.1L, Hematocrit 30.2L, Mean Corpuscular Volume 91, Mean Corpuscular Hemoglobin 30.5, Mean Corpuscular Hemoglobin Concent 33.4, Red Cell Distribution Width 15.5H, Platelet Count 148L, Mean Platelet Volume 5.7L, Neutrophils (%) (Auto) , Lymphocytes (%) (Auto) , Monocytes (%) (Auto) , Eosinophils (%) (Auto) , Basophils (%) (Auto) , Differential Total Cells Counted 100, Neutrophils % ( Manual) 85H, Lymphocytes % (Manual) 7L, Monocytes % (Manual) 4, Eosinophils % ( Manual) 0, Basophils % (Manual) 1, Band Neutrophils 3, Platelet Estimate DecreasedL, Platelet Morphology Normal, Hypochromasia 1+, Anisocytosis 1+, Prothrombin Time 12.2H, Prothromb Time International Ratio 1.2H, Arterial Blood pH 7.402, Arterial Blood Partial Pressure CO2 30.9L, Arterial Blood Partial Pressure O2 116.1H, Arterial Blood HCO3 18.8L, Arterial Blood Oxygen Saturation 97.8, Arterial Blood Base Excess -5.1L, Blake Test Positive, Sodium Level 149H, Potassium Level 4.3, Chloride Level 119H, Carbon Dioxide Level 23, Anion Gap 7, Blood Urea Nitrogen 20H, Creatinine 0.6, Estimat Glomerular Filtration Rate , Glucose Level 171H, Calcium Level 7.3L, Total Bilirubin 0.7, Aspartate Amino Transf (AST/SGOT) 52H, Alanine Aminotransferase (ALT/SGPT) 24, Alkaline Phosphatase 41L, Total Protein 3.7L, Albumin 1.6L, Globulin 2.1, Albumin/ Globulin Ratio 0.8L 12/03/18 06:00: White Blood Count 15.6H, Red Blood Count 3.11L, Hemoglobin 9.6L, Hematocrit 28.4L, Mean Corpuscular Volume 91, Mean Corpuscular Hemoglobin 31.0, Mean Corpuscular Hemoglobin Concent 33.9, Red Cell Distribution Width 16.4H, Platelet Count 162, Mean Platelet Volume 5.8L, Neutrophils (%) (Auto) , Lymphocytes (%) (Auto) , Monocytes (%) (Auto) , Eosinophils (%) (Auto) , Basophils (%) (Auto) , Differential Total Cells Counted 100, Neutrophils % ( Manual) 93H, Lymphocytes % (Manual) 2L, Monocytes % (Manual) 5, Eosinophils % ( Manual) 0, Basophils % (Manual) 0, Band Neutrophils 0, Platelet Estimate Adequate, Platelet Morphology Normal, Hypochromasia 2+, Prothrombin Time 13.0H, Prothromb Time International Ratio 1.2H, Sodium Level 152H, Potassium Level 3.5 , Chloride Level 120H, Carbon Dioxide Level 22, Anion Gap 10, Blood Urea Nitrogen 19H, Creatinine 0.6, Estimat Glomerular Filtration Rate , Glucose Level 170H, Calcium Level 7.7L, Total Bilirubin 1.0, Aspartate Amino Transf (AST /SGOT) 29, Alanine Aminotransferase (ALT/SGPT) 25, Alkaline Phosphatase 42L, Total Protein 3.8L, Albumin 2.0L, Globulin 1.8, Albumin/Globulin Ratio 1.1, Spherocytes 2+, Activated Partial Thromboplast Time 30, Phosphorus Level 2.7, Magnesium Level 1.7L, Random Vancomycin Level 7.1 Height (Feet): 5 Height (Inches): 5.00 Weight (Pounds): 132 General Appearance: lethargic EENT: normal ENT inspection Neck: supple Cardiovascular: tachycardia Respiratory/Chest: decreased breath sounds Abdomen: other - post surgical Extremities: non-tender Deacon Dallas MD Dec 03, 2018 11:32
--- NOTE | 2018-12-03 11:43 | Nephrology Progress Note ---
Assessment/Plan Problem List: (1) Hyponatremia Assessment: Na higher (2) UTI (urinary tract infection) (3) Anemia, chronic disease (4) Alzheimer's dementia (5) Parkinson disease (6) C. difficile colitis Assessment Low Na corrected GI bleed transfused other conditions Pneumonia UTI, has grewal bacteremia sacral decub dementia HTN Sz disorder Parkinsons severe Anemia Plan Post OP care ( Laparatomy Op 12/02/18) K and Mag supplement hemodynamic support Albumin bolus and transfusion for low BP as needed stop HypoTonic IV solution start maintenence IV fluid Urine studies Transfusion as needed Per orders roberto carlos khalil Subjective ROS Limited/Unobtainable: Yes Interval Events/Complaints has surgery last night for perforated DU Objective Objective Last 24 Hour Vital Signs Date Time Temp Pulse Resp B/P (MAP) Pulse Ox O2 Delivery O2 Flow Rate FiO2 12/03/18 11:30 143 17 105/68 (80) 100 12/03/18 11:15 144 16 98/69 (79) 100 12/03/18 11:00 144 16 98/73 (81) 100 12/03/18 10:33 146 15 30 12/03/18 10:30 146 15 101/77 (85) 100 12/03/18 10:15 145 15 98/67 (77) 100 12/03/18 10:00 144 15 99/69 (79) 99 12/03/18 10:00 99/69 12/03/18 09:45 143 16 102/69 (80) 100 12/03/18 09:30 85/65 12/03/18 09:30 142 17 95/65 (75) 99 12/03/18 09:15 143 18 87/58 (68) 99 12/03/18 09:12 146 21 30 12/03/18 09:11 84/59 12/03/18 09:00 147 18 84/59 (67) 99 12/03/18 08:57 85/50 12/03/18 08:54 180 12/03/18 08:45 188 19 85/62 (70) 100 12/03/18 08:36 106 16 100 12/03/18 08:30 126 19 80/60 (67) 100 12/03/18 08:00 30 12/03/18 08:00 109 12/03/18 08:00 Mechanical Ventilator 7/10/19 08:00 99.2 109 17 112/67 (82) 100 12/03/18 07:13 112 22 30 12/03/18 07:00 114 16 109/71 (84) 100 12/03/18 05:06 106 16 30 12/03/18 04:00 Mechanical Ventilator 12/03/18 04:00 115 12/03/18 04:00 40 12/03/18 03:00 90/52 12/03/18 02:50 99 15 30 12/03/18 02:00 111/65 12/03/18 01:29 102 16 30 12/03/18 01:00 116/82 12/03/18 00:00 125/73 12/03/18 00:00 Mechanical Ventilator 12/03/18 00:00 40 12/02/18 23:30 113/75 12/02/18 23:15 118/67 12/02/18 23:00 121/71 12/02/18 22:53 95 18 40 12/02/18 22:45 124/71 12/02/18 22:30 121/76 12/02/18 22:15 124/71 12/02/18 22:00 121/81 12/02/18 21:45 123/81 12/02/18 21:30 123/75 12/02/18 21:15 134/80 12/02/18 21:12 98 20 40 12/02/18 21:02 98.6 85 22 135/90 (105) 100 12/02/18 21:00 98.6 99 22 129/88 (102) 100 12/02/18 21:00 40 12/02/18 20:56 129/86 12/02/18 20:45 98.6 99 23 129/88 (102) 100 12/02/18 20:41 121/86 12/02/18 20:30 98.6 94 22 99/67 (78) 99 12/02/18 20:26 90/63 12/02/18 20:00 50 12/02/18 20:00 Mechanical Ventilator 12/02/18 20:00 98.6 101 21 92/68 (76) 100 12/02/18 20:00 101 12/02/18 19:19 106 18 98 12/02/18 19:17 102 15 100 Mechanical Ventilator 50 12/02/18 19:15 98.2 101 21 77/54 (62) 100 12/02/18 19:12 102 15 50 12/02/18 16:00 Nasal Cannula 3.0 12/02/18 14:00 130 23 111/74 (86) 100 12/02/18 13:00 122 19 83/63 (70) 100 12/02/18 12:37 122 20 100 12/02/18 12:16 99 16 100 12/02/18 12:00 119 12/02/18 12:00 85 19 90/63 (72) 100 12/02/18 12:00 Nasal Cannula 3.0 12/02/18 12:00 97.5 Intake and Output 12/02/18 12/03/18 19:00 07:00 Intake Total 1804 ml 1397.25 ml Output Total 875 ml 680 ml Balance 929 ml 717.25 ml IV Total 1004 ml 1397.25 ml Blood Product 800 ml Output Urine Total 825 ml 590 ml Drainage Total 50 ml 90 ml # Bowel Movements 4 Laboratory Tests 12/02/18 20:05: White Blood Count 16.1#H, Red Blood Count 3.30L, Hemoglobin 10.1L, Hematocrit 30.2L, Mean Corpuscular Volume 91, Mean Corpuscular Hemoglobin 30.5, Mean Corpuscular Hemoglobin Concent 33.4, Red Cell Distribution Width 15.5H, Platelet Count 148L, Mean Platelet Volume 5.7L, Neutrophils (%) (Auto) , Lymphocytes (%) (Auto) , Monocytes (%) (Auto) , Eosinophils (%) (Auto) , Basophils (%) (Auto) , Differential Total Cells Counted 100, Neutrophils % ( Manual) 85H, Lymphocytes % (Manual) 7L, Monocytes % (Manual) 4, Eosinophils % ( Manual) 0, Basophils % (Manual) 1, Band Neutrophils 3, Platelet Estimate DecreasedL, Platelet Morphology Normal, Hypochromasia 1+, Anisocytosis 1+, Prothrombin Time 12.2H, Prothromb Time International Ratio 1.2H, Arterial Blood pH 7.402, Arterial Blood Partial Pressure CO2 30.9L, Arterial Blood Partial Pressure O2 116.1H, Arterial Blood HCO3 18.8L, Arterial Blood Oxygen Saturation 97.8, Arterial Blood Base Excess -5.1L, Blake Test Positive, Sodium Level 149H, Potassium Level 4.3, Chloride Level 119H, Carbon Dioxide Level 23, Anion Gap 7, Blood Urea Nitrogen 20H, Creatinine 0.6, Estimat Glomerular Filtration Rate , Glucose Level 171H, Calcium Level 7.3L, Total Bilirubin 0.7, Aspartate Amino Transf (AST/SGOT) 52H, Alanine Aminotransferase (ALT/SGPT) 24, Alkaline Phosphatase 41L, Total Protein 3.7L, Albumin 1.6L, Globulin 2.1, Albumin/ Globulin Ratio 0.8L 12/03/18 06:00: White Blood Count 15.6H, Red Blood Count 3.11L, Hemoglobin 9.6L, Hematocrit 28.4L, Mean Corpuscular Volume 91, Mean Corpuscular Hemoglobin 31.0, Mean Corpuscular Hemoglobin Concent 33.9, Red Cell Distribution Width 16.4H, Platelet Count 162, Mean Platelet Volume 5.8L, Neutrophils (%) (Auto) , Lymphocytes (%) (Auto) , Monocytes (%) (Auto) , Eosinophils (%) (Auto) , Basophils (%) (Auto) , Differential Total Cells Counted 100, Neutrophils % ( Manual) 93H, Lymphocytes % (Manual) 2L, Monocytes % (Manual) 5, Eosinophils % ( Manual) 0, Basophils % (Manual) 0, Band Neutrophils 0, Platelet Estimate Adequate, Platelet Morphology Normal, Hypochromasia 2+, Prothrombin Time 13.0H, Prothromb Time International Ratio 1.2H, Sodium Level 152H, Potassium Level 3.5 , Chloride Level 120H, Carbon Dioxide Level 22, Anion Gap 10, Blood Urea Nitrogen 19H, Creatinine 0.6, Estimat Glomerular Filtration Rate , Glucose Level 170H, Calcium Level 7.7L, Total Bilirubin 1.0, Aspartate Amino Transf (AST /SGOT) 29, Alanine Aminotransferase (ALT/SGPT) 25, Alkaline Phosphatase 42L, Total Protein 3.8L, Albumin 2.0L, Globulin 1.8, Albumin/Globulin Ratio 1.1, Spherocytes 2+, Activated Partial Thromboplast Time 30, Phosphorus Level 2.7, Magnesium Level 1.7L, Random Vancomycin Level 7.1 Height (Feet): 5 Height (Inches): 5.00 Weight (Pounds): 132 General Appearance: no apparent distress EENT: other - on vent Cardiovascular: bradycardia Respiratory/Chest: decreased breath sounds Abdomen: distended Objective no change Kendall Trinidad MD Dec 03, 2018 11:43
--- NOTE | 2018-12-03 12:00 | NUR ---
NURSE NOTES: Patient resting comfortably in bed, no acute distress. Remains Atrial Fibrillation with RVR. Running levophed drip, BP now stable. Will continue to monitor.
--- NOTE | 2018-12-03 12:41 | Endoscopy Procedure Note ---
Endoscopy Procedure Note General Indication for Procedure: gib Procedures Performed: EGD Operative Findings/Diagnosis: actively bleding DU Specimen: none Pt Tolerated Procedure Well: Yes Estimated Blood Loss: none Anesthesia Anesthesiologist: heidi Anesthesia: MAC Inserted Devices Implant(s) used?: No GI Core Measures 50 yrs or older w/o bx or poly: Not Applicable 10yrs. F/U recommended: Not Applicable Deacon Dallas MD Dec 03, 2018 12:41
--- NOTE | 2018-12-03 13:00 | NUR ---
NURSE NOTES: Dr. Eugene ordered for Albumin 5% 500 ml x1 dose. Order noted and carried out. Patient also noted with fever, PRN Tylenol administered, ice pack provided.
--- NOTE | 2018-12-03 13:49 | Infectious Diseases Prog Note ---
Assessment/Plan Assessment/Plan Assessment: GIB- 2ry to actively bleeding Duodenal ulcer -12/02 SP exploratory laparotomy. Anterior duodenotomy for control of large posterior duodenal ulcer hemorrhage. closure of duodenotomy. pyloric exclusion with gastrojejunostomy abdominal washout. abdominal drain placement -12/02 SP EGD Shock likely hemorrhagic and septic component -12/02 CXR: Slightly increased bilateral infiltrates Diarrhea CDiff + GI bleed 11/29 Colonscopy : Diverticulosis Sepsis -11/30 CT abd/p: Nonspecific trace free intraperitoneal fluid. No acute abdominal or pelvic process otherwise. Fairly extensive bilateral basilar pulmonary parenchymal consolidation and atelectasis. Bilateral small pleural effusions. Colonic diverticulosis. No evidence of diverticulitis. Gastrostomy. Nonobstructive 3 mm left intrarenal calyceal calculus. Prostatomegaly. Edema of the bilateral left greater than right subcutaneous fat. Fairly extensive chronic appearing bilateral hip degenerative changes, with bilateral joint effusions versus chronic synovial proliferation. Inferior vena cava filter -11/28 BCx NTD u/a no pyuria ucx Neg Pneumonia -CXR: Patchy bilateral infiltrates versus mixed interstitial alveolar edema noted. -sp cx MRSA, MDR P. stuarti (S Amikacin, Zosyn ; I cefepime; S ertapenem) Afebrile Leukocytosis; improving MRSA bacteremia- suspect 2ry to PNA- r/o endocarditis -11/18 Bcx 2/4 MRSA , 1/4 S. 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 resident Plan: - oral Vanco #/ -Continue empiric IV Vancomycin #- for MRSA bacteremia and PNA -FLORINA pending -12/02 SP Flagyl #4 -11/29 SP Zosyn #8 -11/27 SP Bactrim # -11/23 SP Cefepime # -11/18 SP Levaquin x1 -f/u cx -Monitor CBC/CMP, temperatures -f/u sp cx, legionella ag urine -GT care -aspiration precautions -wound care per surgical team -Recommend FLORINA -u/a w/ reflex, Bcx x2, sp cx -ETT/ICU care Subjective Allergies: Coded Allergies: No Known Allergies (Unverified , 11/18/18) Subjective afebrile Leukocytosis improving Bcx NTD Patient had EGD yesterday and showed actively bleeding duodenal ulcer which bleeding was unable to be stopped via endoscopic procedure so he went for exp lap. Back in ICU intubated and on pressors Objective Vital Signs Last 24 Hour Vital Signs Date Time Temp Pulse Resp B/P (MAP) Pulse Ox O2 Delivery O2 Flow Rate FiO2 12/03/18 13:03 107/71 12/03/18 12:47 148 19 30 12/03/18 11:30 143 17 105/68 (80) 100 12/03/18 11:15 144 16 98/69 (79) 100 12/03/18 11:00 144 16 98/73 (81) 100 12/03/18 11:00 98/73 12/03/18 10:33 146 15 30 12/03/18 10:30 146 15 101/77 (85) 100 12/03/18 10:15 145 15 98/67 (77) 100 12/03/18 10:00 144 15 99/69 (79) 99 12/03/18 10:00 99/69 12/03/18 09:45 143 16 102/69 (80) 100 12/03/18 09:30 85/65 12/03/18 09:30 142 17 95/65 (75) 99 12/03/18 09:15 143 18 87/58 (68) 99 12/03/18 09:12 146 21 30 12/03/18 09:11 84/59 12/03/18 09:00 147 18 84/59 (67) 99 12/03/18 08:57 85/50 12/03/18 08:54 180 12/03/18 08:45 188 19 85/62 (70) 100 12/03/18 08:36 106 16 100 12/03/18 08:30 126 19 80/60 (67) 100 12/03/18 08:00 30 12/03/18 08:00 109 12/03/18 08:00 Mechanical Ventilator 12/03/18 08:00 99.2 109 17 112/67 (82) 100 12/03/18 07:13 112 22 30 12/03/18 07:00 114 16 109/71 (84) 100 12/03/18 05:06 106 16 30 12/03/18 04:00 Mechanical Ventilator 12/03/18 04:00 115 12/03/18 04:00 40 12/03/18 03:00 90/52 12/03/18 02:50 99 15 30 12/03/18 02:00 111/65 12/03/18 01:29 102 16 30 12/03/18 01:00 116/82 12/03/18 00:00 125/73 12/03/18 00:00 Mechanical Ventilator 12/03/18 00:00 40 12/02/18 23:30 113/75 12/02/18 23:15 118/67 12/02/18 23:00 121/71 12/02/18 22:53 95 18 40 12/02/18 22:45 124/71 12/02/18 22:30 121/76 12/02/18 22:15 124/71 12/02/18 22:00 121/81 12/02/18 21:45 123/81 12/02/18 21:30 123/75 12/02/18 21:15 134/80 12/02/18 21:12 98 20 40 12/02/18 21:02 98.6 85 22 135/90 (105) 100 12/02/18 21:00 98.6 99 22 129/88 (102) 100 12/02/18 21:00 40 12/02/18 20:56 129/86 12/02/18 20:45 98.6 99 23 129/88 (102) 100 12/02/18 20:41 121/86 12/02/18 20:30 98.6 94 22 99/67 (78) 99 12/02/18 20:26 90/63 12/02/18 20:00 50 12/02/18 20:00 Mechanical Ventilator 12/02/18 20:00 98.6 101 21 92/68 (76) 100 12/02/18 20:00 101 12/02/18 19:19 106 18 98 12/02/18 19:17 102 15 100 Mechanical Ventilator 50 12/02/18 19:15 98.2 101 21 77/54 (62) 100 12/02/18 19:12 102 15 50 12/02/18 16:00 Nasal Cannula 3.0 12/02/18 14:00 130 23 111/74 (86) 100 Height (Feet): 5 Height (Inches): 5.00 Weight (Pounds): 132 Objective General Appearance: WD/WN, no apparent distress Lines, tubes and drains: central line HEENT: normocephalic, atraumatic Neck: non-tender, normal alignment Cardiovascular/Chest: normal peripheral pulses, normal rate, regular rhythm Abdomen: normal bowel sounds, non tender Extremities: normal range of motion Skin Exam: normal pigmentation 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 Laboratory Tests Test 12/02/18 20:05 12/03/18 06:00 White Blood Count 16.1 K/UL (4.8-10.8) #H 15.6 K/UL (4.8-10.8) H Red Blood Count 3.30 M/UL (4.70-6.10) L 3.11 M/UL (4.70-6.10) L Hemoglobin 10.1 G/DL (14.2-18.0) L 9.6 G/DL (14.2-18.0) L Hematocrit 30.2 % (42.0-52.0) L 28.4 % (42.0-52.0) L Mean Corpuscular Volume 91 FL (80-99) 91 FL (80-99) Mean Corpuscular Hemoglobin 30.5 PG (27.0-31.0) 31.0 PG (27.0-31.0) Mean Corpuscular Hemoglobin Concent 33.4 G/DL (32.0-36.0) 33.9 G/DL (32.0-36.0) Red Cell Distribution Width 15.5 % (11.6-14.8) H 16.4 % (11.6-14.8) H Platelet Count 148 K/UL (150-450) L 162 K/UL (150-450) Mean Platelet Volume 5.7 FL (6.5-10.1) L 5.8 FL (6.5-10.1) L Neutrophils (%) (Auto) % (45.0-75.0) % (45.0-75.0) Lymphocytes (%) (Auto) % (20.0-45.0) % (20.0-45.0) Monocytes (%) (Auto) % (1.0-10.0) % (1.0-10.0) Eosinophils (%) (Auto) % (0.0-3.0) % (0.0-3.0) Basophils (%) (Auto) % (0.0-2.0) % (0.0-2.0) Differential Total Cells Counted 100 100 Neutrophils % (Manual) 85 % (45-75) H 93 % (45-75) H Lymphocytes % (Manual) 7 % (20-45) L 2 % (20-45) L Monocytes % (Manual) 4 % (1-10) 5 % (1-10) Eosinophils % (Manual) 0 % (0-3) 0 % (0-3) Basophils % (Manual) 1 % (0-2) 0 % (0-2) Band Neutrophils 3 % (0-8) 0 % (0-8) Platelet Estimate Decreased L Adequate Platelet Morphology Normal Normal Hypochromasia 1+ 2+ Anisocytosis 1+ Prothrombin Time 12.2 SEC (9.30-11.50) H 13.0 SEC (9.30-11.50) H Prothromb Time International Ratio 1.2 (0.9-1.1) H 1.2 (0.9-1.1) H Arterial Blood pH 7.402 (7.350-7.450) Arterial Blood Partial Pressure CO2 30.9 mmHg (35.0-45.0) L Arterial Blood Partial Pressure O2 116.1 mmHg (75.0-100.0) H Arterial Blood HCO3 18.8 mmol/L (22.0-26.0) L Arterial Blood Oxygen Saturation 97.8 % (95-100) Arterial Blood Base Excess -5.1 (-2-2) L Blake Test Positive Sodium Level 149 MMOL/L (136-145) H 152 MMOL/L (136-145) H Potassium Level 4.3 MMOL/L (3.5-5.1) 3.5 MMOL/L (3.5-5.1) Chloride Level 119 MMOL/L (98-107) H 120 MMOL/L (98-107) H Carbon Dioxide Level 23 MMOL/L (21-32) 22 MMOL/L (21-32) Anion Gap 7 mmol/L (5-15) 10 mmol/L (5-15) Blood Urea Nitrogen 20 mg/dL (7-18) H 19 mg/dL (7-18) H Creatinine 0.6 MG/DL (0.55-1.30) 0.6 MG/DL (0.55-1.30) Estimat Glomerular Filtration Rate mL/min (>60) mL/min (>60) Glucose Level 171 MG/DL (74-106) H 170 MG/DL (74-106) H Calcium Level 7.3 MG/DL (8.5-10.1) L 7.7 MG/DL (8.5-10.1) L Total Bilirubin 0.7 MG/DL (0.2-1.0) 1.0 MG/DL (0.2-1.0) Aspartate Amino Transf (AST/SGOT) 52 U/L (15-37) H 29 U/L (15-37) Alanine Aminotransferase (ALT/SGPT) 24 U/L (12-78) 25 U/L (12-78) Alkaline Phosphatase 41 U/L (46-116) L 42 U/L (46-116) L Total Protein 3.7 G/DL (6.4-8.2) L 3.8 G/DL (6.4-8.2) L Albumin 1.6 G/DL (3.4-5.0) L 2.0 G/DL (3.4-5.0) L Globulin 2.1 g/dL 1.8 g/dL Albumin/Globulin Ratio 0.8 (1.0-2.7) L 1.1 (1.0-2.7) Spherocytes 2+ Activated Partial Thromboplast Time 30 SEC (23-33) Phosphorus Level 2.7 MG/DL (2.5-4.9) Magnesium Level 1.7 MG/DL (1.8-2.4) L Random Vancomycin Level 7.1 ug/mL Current Medications Medications (Trade) Dose Ordered Sig/Pauline Route PRN Reason Start Time Stop Time Status Last Admin Dose Admin Acetaminophen (Tylenol) 650 mg Q4H PRN GT T>100.5 11/27/18 18:18 12/22/18 18:17 12/03/18 13:02 Carbidopa/Levodopa (Sinemet 25/100) 1 tab THREE TIMES A DAY GT 11/27/18 18:00 12/27/18 17:59 12/03/18 12:38 Chlorhexidine Gluconate (Marycarmen-Hex 2%) 1 applic DAILY@2000 TOPIC 11/30/18 20:00 12/30/18 19:59 12/02/18 20:23 Clonidine HCl (Catapres Tab) 0.1 mg Q4H PRN GT sbp>170mmHg 11/27/18 18:18 12/22/18 18:17 Dextrose 1,000 ml @ 75 mls/hr [id number] IV 12/02/18 09:00 01/01/19 08:59 12/03/18 12:37 Dextrose (Dextrose 50%) 25 ml Q30M PRN IV Hypoglycemia 11/27/18 18:18 12/18/18 18:17 Dextrose (Dextrose 50%) 50 ml Q30M PRN IV Hypoglycemia 11/27/18 18:18 12/18/18 18:17 Hydrocortisone (Proctosol-HC Cream) 1 applic Q12HR TOPIC 12/02/18 13:00 01/01/19 12:59 12/03/18 10:52 Lactobacillus Acidophilus (Culturelle) 1 tab THREE TIMES A DAY ORAL 11/29/18 18:00 12/29/18 17:59 12/03/18 12:38 Magnesium Sulfate 100 ml @ 100 mls/hr Q1H IVPB 12/03/18 10:00 12/03/18 13:59 12/03/18 12:37 Midazolam HCl (Versed 2mg/2ml vial) 1 mg Q1H PRN IVP SEDATION 12/02/18 20:30 01/01/19 20:29 Morphine Sulfate (Morphine Sulfate) 2 mg Q1H PRN IVP For Pain scale 4-7 12/02/18 20:23 12/09/18 20:22 12/03/18 09:11 Norepinephrine Bitartrate 8 mg/ Sodium Chloride 250 ml @ 0 mls/hr Q24H IV 12/02/18 17:26 01/01/19 17:25 12/03/18 13:03 Pantoprazole 80 mg/Sodium Chloride 250 ml @ 25 mls/hr Q10H IV 11/30/18 17:00 12/30/18 16:59 12/03/18 06:57 Vancomycin HCl (Firvanq) 125 mg FOUR TIMES A DAY ORAL 11/29/18 09:00 12/06/18 08:59 12/03/18 12:38 Vancomycin HCl (Vanco rx to dose) 1 ea DAILY PRN MISC Per rx protocol 11/27/18 18:18 12/27/18 18:17 Vancomycin HCl 500 mg/Dextrose 110 ml @ 110 mls/hr Q24H IVPB 12/04/18 09:00 12/09/18 08:59 Neva Yee M.D. Dec 03, 2018 13:49
--- NOTE | 2018-12-03 14:00 | General Progress Note ---
Progress Note Progress Note hypotensive tachycardic labs noted no active bleeding now dressing intact drain with serosang output very ill prognosis guarded cont current care plan Andrew Eugene Dec 03, 2018 14:00
--- NOTE | 2018-12-03 14:07 | Cardiac Electrophysiology PN ---
Assessment/Plan Assessment/Plan 1. Post op atrial fib with RVR 170s. Got Dig 0.25 iv. Can't give him BB or CA danya as hypotensive on Levophed. 2. Septic and hemorrhagic shock on Levophed and iv fluids. Echo EF 55% 3. Acute right leg DVT and Bilateral UE DVT. S/P IVC filter . Off Eliquis for severe anemia and GI bleed 4. Staph aureous bacteremia. Dr. Yee who recommended FLORINA pending consent and patient stability 5. Parkinsonism. 6. COPD. 7. UTI. 8. Severe anemia and rectal bleed. S/P Colonoscopy on 11/20/18 and 11/29/18 and transfusion No obvious source. Scheduled for EGD by Dr Dallas and Anterior duodenostomy for control of large posterior duodenal ulcer hemorrhage by Dr Eugene on 12/02/18 9. Seizure disorder. 10. S/P PEG DW RN and Dr Dallas Subjective Subjective In ICU intubated on the vent s/p Exploratory laparotomy and anterior duodenostomy for control of large posterior duodenal ulcer hemorrhage. Developed atrial fib with RVR 170s. Got 0.5 iv digoxin. Objective Last 24 Hour Vital Signs Date Time Temp Pulse Resp B/P (MAP) Pulse Ox O2 Delivery O2 Flow Rate FiO2 12/03/18 13:03 107/71 12/03/18 12:47 148 19 30 12/03/18 11:30 143 17 105/68 (80) 100 12/03/18 11:15 144 16 98/69 (79) 100 12/03/18 11:00 144 16 98/73 (81) 100 12/03/18 11:00 98/73 12/03/18 10:33 146 15 30 12/03/18 10:30 146 15 101/77 (85) 100 12/03/18 10:15 145 15 98/67 (77) 100 12/03/18 10:00 144 15 99/69 (79) 99 12/03/18 10:00 99/69 12/03/18 09:45 143 16 102/69 (80) 100 12/03/18 09:30 85/65 12/03/18 09:30 142 17 95/65 (75) 99 12/03/18 09:15 143 18 87/58 (68) 99 12/03/18 09:12 146 21 30 12/03/18 09:11 84/59 12/03/18 09:00 147 18 84/59 (67) 99 12/03/18 08:57 85/50 12/03/18 08:54 180 12/03/18 08:45 188 19 85/62 (70) 100 12/03/18 08:36 106 16 100 12/03/18 08:30 126 19 80/60 (67) 100 12/03/18 08:00 30 12/03/18 08:00 109 12/03/18 08:00 Mechanical Ventilator 12/03/18 08:00 99.2 109 17 112/67 (82) 100 12/03/18 07:13 112 22 30 12/03/18 07:00 114 16 109/71 (84) 100 12/03/18 05:06 106 16 30 12/03/18 04:00 Mechanical Ventilator 12/03/18 04:00 115 12/03/18 04:00 40 12/03/18 03:00 90/52 12/03/18 02:50 99 15 30 12/03/18 02:00 111/65 12/03/18 01:29 102 16 30 12/03/18 01:00 116/82 12/03/18 00:00 125/73 12/03/18 00:00 Mechanical Ventilator 12/03/18 00:00 40 12/02/18 23:30 113/75 12/02/18 23:15 118/67 12/02/18 23:00 121/71 12/02/18 22:53 95 18 40 12/02/18 22:45 124/71 12/02/18 22:30 121/76 12/02/18 22:15 124/71 12/02/18 22:00 121/81 12/02/18 21:45 123/81 12/02/18 21:30 123/75 12/02/18 21:15 134/80 12/02/18 21:12 98 20 40 12/02/18 21:02 98.6 85 22 135/90 (105) 100 12/02/18 21:00 98.6 99 22 129/88 (102) 100 12/02/18 21:00 40 12/02/18 20:56 129/86 12/02/18 20:45 98.6 99 23 129/88 (102) 100 12/02/18 20:41 121/86 12/02/18 20:30 98.6 94 22 99/67 (78) 99 12/02/18 20:26 90/63 12/02/18 20:00 50 12/02/18 20:00 Mechanical Ventilator 12/02/18 20:00 98.6 101 21 92/68 (76) 100 12/02/18 20:00 101 12/02/18 19:19 106 18 98 12/02/18 19:17 102 15 100 Mechanical Ventilator 50 12/02/18 19:15 98.2 101 21 77/54 (62) 100 12/02/18 19:12 102 15 50 12/02/18 16:00 Nasal Cannula 3.0 Intake and Output 12/02/18 12/03/18 19:00 07:00 Intake Total 1804 ml 1397.25 ml Output Total 875 ml 680 ml Balance 929 ml 717.25 ml IV Total 1004 ml 1397.25 ml Blood Product 800 ml Output Urine Total 825 ml 590 ml Drainage Total 50 ml 90 ml # Bowel Movements 4 Laboratory Tests Test 12/02/18 20:05 12/03/18 06:00 White Blood Count 16.1 K/UL (4.8-10.8) #H 15.6 K/UL (4.8-10.8) H Red Blood Count 3.30 M/UL (4.70-6.10) L 3.11 M/UL (4.70-6.10) L Hemoglobin 10.1 G/DL (14.2-18.0) L 9.6 G/DL (14.2-18.0) L Hematocrit 30.2 % (42.0-52.0) L 28.4 % (42.0-52.0) L Mean Corpuscular Volume 91 FL (80-99) 91 FL (80-99) Mean Corpuscular Hemoglobin 30.5 PG (27.0-31.0) 31.0 PG (27.0-31.0) Mean Corpuscular Hemoglobin Concent 33.4 G/DL (32.0-36.0) 33.9 G/DL (32.0-36.0) Red Cell Distribution Width 15.5 % (11.6-14.8) H 16.4 % (11.6-14.8) H Platelet Count 148 K/UL (150-450) L 162 K/UL (150-450) Mean Platelet Volume 5.7 FL (6.5-10.1) L 5.8 FL (6.5-10.1) L Neutrophils (%) (Auto) % (45.0-75.0) % (45.0-75.0) Lymphocytes (%) (Auto) % (20.0-45.0) % (20.0-45.0) Monocytes (%) (Auto) % (1.0-10.0) % (1.0-10.0) Eosinophils (%) (Auto) % (0.0-3.0) % (0.0-3.0) Basophils (%) (Auto) % (0.0-2.0) % (0.0-2.0) Differential Total Cells Counted 100 100 Neutrophils % (Manual) 85 % (45-75) H 93 % (45-75) H Lymphocytes % (Manual) 7 % (20-45) L 2 % (20-45) L Monocytes % (Manual) 4 % (1-10) 5 % (1-10) Eosinophils % (Manual) 0 % (0-3) 0 % (0-3) Basophils % (Manual) 1 % (0-2) 0 % (0-2) Band Neutrophils 3 % (0-8) 0 % (0-8) Platelet Estimate Decreased L Adequate Platelet Morphology Normal Normal Hypochromasia 1+ 2+ Anisocytosis 1+ Prothrombin Time 12.2 SEC (9.30-11.50) H 13.0 SEC (9.30-11.50) H Prothromb Time International Ratio 1.2 (0.9-1.1) H 1.2 (0.9-1.1) H Arterial Blood pH 7.402 (7.350-7.450) Arterial Blood Partial Pressure CO2 30.9 mmHg (35.0-45.0) L Arterial Blood Partial Pressure O2 116.1 mmHg (75.0-100.0) H Arterial Blood HCO3 18.8 mmol/L (22.0-26.0) L Arterial Blood Oxygen Saturation 97.8 % (95-100) Arterial Blood Base Excess -5.1 (-2-2) L Blake Test Positive Sodium Level 149 MMOL/L (136-145) H 152 MMOL/L (136-145) H Potassium Level 4.3 MMOL/L (3.5-5.1) 3.5 MMOL/L (3.5-5.1) Chloride Level 119 MMOL/L (98-107) H 120 MMOL/L (98-107) H Carbon Dioxide Level 23 MMOL/L (21-32) 22 MMOL/L (21-32) Anion Gap 7 mmol/L (5-15) 10 mmol/L (5-15) Blood Urea Nitrogen 20 mg/dL (7-18) H 19 mg/dL (7-18) H Creatinine 0.6 MG/DL (0.55-1.30) 0.6 MG/DL (0.55-1.30) Estimat Glomerular Filtration Rate mL/min (>60) mL/min (>60) Glucose Level 171 MG/DL (74-106) H 170 MG/DL (74-106) H Calcium Level 7.3 MG/DL (8.5-10.1) L 7.7 MG/DL (8.5-10.1) L Total Bilirubin 0.7 MG/DL (0.2-1.0) 1.0 MG/DL (0.2-1.0) Aspartate Amino Transf (AST/SGOT) 52 U/L (15-37) H 29 U/L (15-37) Alanine Aminotransferase (ALT/SGPT) 24 U/L (12-78) 25 U/L (12-78) Alkaline Phosphatase 41 U/L (46-116) L 42 U/L (46-116) L Total Protein 3.7 G/DL (6.4-8.2) L 3.8 G/DL (6.4-8.2) L Albumin 1.6 G/DL (3.4-5.0) L 2.0 G/DL (3.4-5.0) L Globulin 2.1 g/dL 1.8 g/dL Albumin/Globulin Ratio 0.8 (1.0-2.7) L 1.1 (1.0-2.7) Spherocytes 2+ Activated Partial Thromboplast Time 30 SEC (23-33) Phosphorus Level 2.7 MG/DL (2.5-4.9) Magnesium Level 1.7 MG/DL (1.8-2.4) L Random Vancomycin Level 7.1 ug/mL Objective HEAD AND NECK: No JVD. LUNGS: Decreased breath sounds. CARDIOVASCULAR: Regular S1 and S2 with no gallop . ABDOMEN: Soft. G-tube intact.S/P Laparatomy with drain EXTREMITIES: Upper extremity and LE edema. Earl Washington MD Dec 03, 2018 14:07
--- NOTE | 2018-12-03 14:10 | NUR ---
NURSE NOTES: saw and assessed patient. MD aware of patient' HR rate of 140s, Sinus Tachycardia/Atrial Fibrillation with RVR and PVCs. Order received.
--- NOTE | 2018-12-03 14:36 | NUR ---
RESPIRATORY NOTE: did not attempt to wean pt due to elevated HR. RN and MD aware.
--- NOTE | 2018-12-03 14:40 | NUR ---
NURSE NOTES: Heart rate now noted to be in the low 100s, after digoxin was administered. Patient remains stable. Resting in bed.
[2018-12-03 16:11] LABS: APPEARANCE,URINE CLEAR; BILIRUBIN, URINE NEGATIVE (NEGATIVE); COLOR,URINE BROWN; GLUCOSE, URINE (UA) NEGATIVE (NEGATIVE); KETONES,URINE NEGATIVE (NEGATIVE); LEUKOCYTE ESTERASE ,URINE 1+ (NEGATIVE); NITRITE,URINE NEGATIVE (NEGATIVE); PH,URINE 5 (4.5-8.0); PROTEIN,URINE 2+ (NEGATIVE); UROBILINOGEN,URINE NORMAL MG/DL (0.0-1.0)
--- NOTE | 2018-12-03 16:45 | Progress Note ---
DATE: 12/03/2018 SUBJECTIVE: This is a 73-year-old male patient with sepsis but he has altered mental status, confusion, decline in cognition below baseline that is why his attending physician has requested daily psychiatric consultation. He continues to have altered mental status, confusion, and mood lability. He is currently in ICU. DIAGNOSIS: Major depressive disorder, mild, recurrent with psychotic features, rule out dementia with psychosis. PLAN: Continue treatment with medications to stabilize his mood. Provided him with 20 minutes of behavioral management. Seen and assessed in the ICU. Chart reviewed and discussed with staff. Laith Mason M.D. DR: Delia JOB#: [id number] CC:
--- NOTE | 2018-12-03 17:15 | Procedure Note ---
DATE OF PROCEDURE: 12/02/2018 SURGEON: Deacon Dallas M.D. PROCEDURE: Upper endoscopy with hemostasis. ANESTHESIA: Per Dr. Mabry. INSTRUMENT: Olympus adult flexible upper endoscope. INDICATION: Upper GI bleeding. REASON FOR PROCEDURE: The procedure, risks, benefits, and possible consequences, including hemorrhage, aspiration, perforation and infection, and alternative treatments, were explained to the patient/legal guardian by Dr. Deacon Dallas and the patient/legal guardian understood and accepted these risks. DESCRIPTION OF PROCEDURE: After informed consent was obtained and the patient was adequately sedated, Olympus upper endoscope was advanced from mouth to the second portion of the normal and retroflexion was performed in the stomach. The patient has evidence of blood throughout the stomach and the duodenum. We found a duodenal ulcer at the duodenal bulb with a visible vessel in it, most probably the source of bleeding given there was a lot of blood clot sitting there. We started our hemostasis procedure. We first tried to see if we can clip this vessel. We used a size #16 hemoclip. Unfortunately, the hemoclip not only grabbed the vessel, it actually ruptured it open, and started pumping blood. At this time, there was a lot of blood in the duodenum making it even more challenging. We started injecting with epinephrine. We did about 2 to 3 mL of 1:10,000 dilution epinephrine injection around the ulcer and placed another clip, which seemed to slow down the bleeding, but did not completely stopped it. There was normal further pumping after the clip was placed, but still it was not completely resolved. At this time, we could not see very well and we felt that we were just wasting time trying to wash and find out where the ulcer is again because there was so much blood, we decided to cancel the procedure and called Surgery. Dr. Eugene was called. Deacon Dallas M.D. DR: MARY JOB#: [id number] CC:
--- NOTE | 2018-12-03 18:03 | NUR ---
NURSE NOTES: Dr. Shannon update on patient, heart rate ranging from 70-130s, had 2 runs of 3 beats Vent. tach, BP stable, levophed for renewal and will try to titrate patient off Levophed per Dr. Washington. Addendum: 12/03/18 at 1807 by Lonnie Castle RN Correction: Dr. Washington
--- NOTE | 2018-12-03 19:18 | NUR ---
RESPIRATORY NOTE: Received pt on AC 10, 600VT, 30%, no PEEP. Pt intubated w/ ETT 7.5 @ 25cm lipline, secured by anchorfast. Pt asleep/disoriented. B/S hoang. rhonchi, sxn moderate amounts of thick, harmon-yellow secretions. No restraints as pt unable to move both hands. Vent plugged into red outlet, ambubag at bedside. Pt in no apparent distress at this time. Will continue to monitor pt.
--- NOTE | 2018-12-03 19:30 | NUR ---
NURSE NOTES:[id number], Levophed drip down to 2mcg/min.
[2018-12-03] MEDS: Dyna-Hex 2% Top Sol 2oz TOPIC SCH (20:13)
--- NOTE | 2018-12-03 20:20 | NUR ---
NURSE NOTES: Pt report received from [facility]. pt appears to be stable resting in bed. pt neuro assessment is obtunded and unable to track pen light, however, pts pupils are round and reactive to light and accommodating bilaterally, sluggish. pt is on a endo tracheal (Mid lip, 7.5/ at 20) vent with reported settings of TV 600, FiO2 30%, Peep 0, AC 10, satting at 100%. no other signs symptoms of other signs symptoms of acute resp disrtess at the moment. pt is on a shoe laster, able to display SR that varies from ST to A Fib, HR of 110, no other acute signs symptoms of acute cardiac distress at the moment. pt has a folly cath in place and draining to gravity. pt has a abdominal J prat that appear to be draining haemoserous (watered down like colored) blood. bed locked and low, bed armed, bed rails up times 3. pt attached to monitor. will continue to monitor.
--- NOTE | 2018-12-03 22:00 | NUR ---
NURSE NOTES: Pt is resting in bed. lines assessed. pt was cleaned and rotated. Stool appeared Brown/ Blood tinged and jelly like. will continue to monitor.
--- NOTE | 2018-12-03 22:56 | General Progress Note ---
Assessment/Plan Problem List: (1) Hyponatremia ICD Codes: E87.1 - Hypo-osmolality and hyponatremia SNOMED: 68734181 (2) Acute DVT (deep venous thrombosis) ICD Codes: I82.409 - Acute embolism and thrombosis of unspecified deep veins of unspecified lower extremity SNOMED: 129128666973717 (3) Decubitus skin ulcer ICD Codes: L89.90 - Pressure ulcer of unspecified site, unspecified stage SNOMED: 314960591 (4) Severe protein-calorie malnutrition ICD Codes: E43 - Unspecified severe protein-calorie malnutrition SNOMED: 533803596, 468157560, 799597507 (5) C. difficile colitis ICD Codes: A04.72 - Enterocolitis due to Clostridium difficile, not specified as recurrent SNOMED: 592484133 (6) Lower GI bleed ICD Codes: K92.2 - Gastrointestinal hemorrhage, unspecified SNOMED: 57330062 (7) UTI (urinary tract infection) ICD Codes: N39.0 - Urinary tract infection, site not specified SNOMED: 15279568, 326979753 Qualifiers: Qualified Codes: N30.00 - Acute cystitis without hematuria (8) HCAP (healthcare-associated pneumonia) ICD Codes: J18.9 - Pneumonia, unspecified organism SNOMED: 676608567, 521531464 (9) Anemia, chronic disease ICD Codes: D63.8 - Anemia in other chronic diseases classified elsewhere SNOMED: 669001661, 862946621 (10) Sepsis ICD Codes: A41.9 - Sepsis, unspecified organism SNOMED: 74033790, 102322304 Qualifiers: Qualified Codes: A41.9 - Sepsis, unspecified organism (11) COPD (chronic obstructive pulmonary disease) ICD Codes: J44.9 - Chronic obstructive pulmonary disease, unspecified SNOMED: 24363675 (12) Parkinson disease ICD Codes: G20 - Parkinson's disease SNOMED: 39978106 (13) Seizures ICD Codes: R56.9 - Unspecified convulsions SNOMED: 37513920 Status: progressing, unchanged Assessment/Plan: dvt sepsis and pna check h/h and lytes no sob no change not hypoxic reviewed chart and labs and meds Subjective ROS Limited/Unobtainable: Yes Allergies: Coded Allergies: No Known Allergies (Unverified , 11/18/18) Objective Last 24 Hour Vital Signs Date Time Temp Pulse Resp B/P (MAP) Pulse Ox O2 Delivery O2 Flow Rate FiO2 12/03/18 22:00 98.3 120 16 112/68 (83) 99 12/03/18 21:07 117 12 30 12/03/18 21:00 98.3 111 16 116/65 (82) 99 12/03/18 21:00 116/65 12/03/18 20:45 108/62 12/03/18 20:30 115/69 12/03/18 20:15 117/61 12/03/18 20:00 30 12/03/18 20:00 111 12/03/18 20:00 98.3 111 15 124/61 (82) 99 12/03/18 20:00 124/61 12/03/18 20:00 Mechanical Ventilator 12/03/18 19:15 114 13 30 12/03/18 18:09 112/59 12/03/18 18:00 117/53 12/03/18 18:00 112 14 112/59 (76) 100 12/03/18 17:30 96 15 117/63 (81) 100 12/03/18 17:09 134 13 30 12/03/18 17:00 113 15 119/59 (79) 100 12/03/18 17:00 119/59 12/03/18 16:30 98 14 106/59 (75) 100 12/03/18 16:00 Mechanical Ventilator 12/03/18 16:00 30 12/03/18 16:00 131 15 101/63 (76) 100 12/03/18 16:00 101/63 12/03/18 16:00 123 12/03/18 15:30 105 14 117/61 (79) 100 12/03/18 15:00 98 13 125/67 (86) 100 12/03/18 15:00 125/67 12/03/18 14:34 140 13 30 12/03/18 14:30 98.7 113 14 118/69 (85) 100 12/03/18 14:17 144 12/03/18 14:15 144 14 118/74 (89) 100 12/03/18 14:02 129/91 12/03/18 14:00 145 14 129/91 (104) 100 12/03/18 13:32 98.7 12/03/18 13:30 139 16 120/78 (92) 100 12/03/18 13:03 107/71 12/03/18 13:00 143 17 146/89 (108) 100 12/03/18 12:47 148 19 30 12/03/18 12:45 100.3 149 22 107/71 (83) 99 12/03/18 12:30 148 16 98/74 (82) 100 12/03/18 12:15 137 15 99/64 (76) 100 12/03/18 12:00 30 12/03/18 12:00 146 12/03/18 12:00 146 16 107/71 (83) 100 12/03/18 12:00 Mechanical Ventilator 12/03/18 11:45 136 15 103/56 (72) 100 12/03/18 11:30 143 17 105/68 (80) 100 12/03/18 11:15 144 16 98/69 (79) 100 12/03/18 11:00 144 16 98/73 (81) 100 12/03/18 11:00 98/73 12/03/18 10:33 146 15 30 12/03/18 10:30 146 15 101/77 (85) 100 12/03/18 10:15 145 15 98/67 (77) 100 12/03/18 10:00 144 15 99/69 (79) 99 12/03/18 10:00 99/69 12/03/18 09:45 143 16 102/69 (80) 100 12/03/18 09:30 85/65 12/03/18 09:30 142 17 95/65 (75) 99 12/03/18 09:15 143 18 87/58 (68) 99 12/03/18 09:12 146 21 30 12/03/18 09:11 84/59 12/03/18 09:00 147 18 84/59 (67) 99 12/03/18 08:57 85/50 12/03/18 08:54 180 12/03/18 08:45 188 19 85/62 (70) 100 12/03/18 08:37 144 12/03/18 08:36 106 16 100 12/03/18 08:30 126 19 80/60 (67) 100 12/03/18 08:00 30 12/03/18 08:00 109 12/03/18 08:00 Mechanical Ventilator 12/03/18 08:00 99.2 109 17 112/67 (82) 100 12/03/18 07:13 112 22 30 12/03/18 07:00 114 16 109/71 (84) 100 12/03/18 06:30 112 16 110/68 (82) 100 12/03/18 06:00 109 17 106/68 (81) 100 12/03/18 05:30 112 17 108/70 (83) 100 12/03/18 05:06 106 16 30 12/03/18 05:00 112 17 108/70 (83) 100 12/03/18 04:30 98.0 109 19 104/73 (83) 100 12/03/18 04:00 Mechanical Ventilator 12/03/18 04:00 115 12/03/18 04:00 98.0 109 19 119/82 (94) 100 12/03/18 04:00 40 12/03/18 03:30 115 22 91/57 (68) 100 12/03/18 03:00 90/52 12/03/18 03:00 113 19 90/52 (65) 99 12/03/18 02:50 99 15 30 12/03/18 02:30 114 19 107/65 (79) 100 12/03/18 02:00 111/65 12/03/18 02:00 105 15 111/65 (80) 100 12/03/18 01:30 105 15 113/55 (74) 100 12/03/18 01:29 102 16 30 12/03/18 01:00 103 16 116/82 (93) 100 12/03/18 01:00 116/82 12/03/18 00:30 105 16 115/58 (77) 100 12/03/18 00:00 98.2 106 16 125/73 (90) 100 12/03/18 00:00 125/73 12/03/18 00:00 Mechanical Ventilator 12/03/18 00:00 40 12/02/18 23:30 113/75 12/02/18 23:30 104 16 113/75 (88) 100 12/02/18 23:15 118/67 12/02/18 23:00 121/71 12/02/18 23:00 101 16 121/71 (88) 100 Intake and Output 12/02/18 12/03/18 19:00 07:00 Intake Total 1804 ml 1397.25 ml Output Total 875 ml 680 ml Balance 929 ml 717.25 ml IV Total 1004 ml 1397.25 ml Blood Product 800 ml Output Urine Total 825 ml 590 ml Drainage Total 50 ml 90 ml # Bowel Movements 4 Laboratory Tests 12/03/18 06:00: White Blood Count 15.6H, Red Blood Count 3.11L, Hemoglobin 9.6L, Hematocrit 28.4L, Mean Corpuscular Volume 91, Mean Corpuscular Hemoglobin 31.0, Mean Corpuscular Hemoglobin Concent 33.9, Red Cell Distribution Width 16.4H, Platelet Count 162, Mean Platelet Volume 5.8L, Neutrophils (%) (Auto) , Lymphocytes (%) (Auto) , Monocytes (%) (Auto) , Eosinophils (%) (Auto) , Basophils (%) (Auto) , Differential Total Cells Counted 100, Neutrophils % ( Manual) 93H, Lymphocytes % (Manual) 2L, Monocytes % (Manual) 5, Eosinophils % ( Manual) 0, Basophils % (Manual) 0, Band Neutrophils 0, Platelet Estimate Adequate, Platelet Morphology Normal, Hypochromasia 2+, Spherocytes 2+, Prothrombin Time 13.0H, Prothromb Time International Ratio 1.2H, Activated Partial Thromboplast Time 30, Sodium Level 152H, Potassium Level 3.5, Chloride Level 120H, Carbon Dioxide Level 22, Anion Gap 10, Blood Urea Nitrogen 19H, Creatinine 0.6, Estimat Glomerular Filtration Rate , Glucose Level 170H, Calcium Level 7.7L, Phosphorus Level 2.7, Magnesium Level 1.7L, Total Bilirubin 1.0, Aspartate Amino Transf (AST/SGOT) 29, Alanine Aminotransferase (ALT/SGPT) 25, Alkaline Phosphatase 42L, Total Protein 3.8L, Albumin 2.0L, Globulin 1.8, Albumin/Globulin Ratio 1.1, Random Vancomycin Level 7.1 12/03/18 15:30: Urine Color Brown, Urine Appearance Clear, Urine pH 5, Urine Specific Drummond 1.020, Urine Protein 2+H, Urine Glucose (UA) Negative, Urine Ketones Negative, Urine Blood 1+H, Urine Nitrite Negative, Urine Bilirubin Negative, Urine Urobilinogen Normal, Urine Leukocyte Esterase 1+H, Urine RBC 2-4H, Urine WBC 2-4 , Urine Squamous Epithelial Cells None, Urine Bacteria ModerateH, Urine Granular Casts 0-2H Height (Feet): 5 Height (Inches): 5.00 Weight (Pounds): 132 Cardiovascular: normal peripheral pulses Respiratory/Chest: lungs clear Abdomen: soft Yohana Garay MD Dec 03, 2018 22:56
[2018-12-04] VITALS (24 sets, daily range): BP systolic 96–130; BP diastolic 50–106
--- NOTE | 2018-12-04 | NUR ---
NURSE NOTES: Pt appears to be resting in bed, vent and trach assessed. pt repositioned. PICC and IV lines and medications assessed. vital signs stable at this moment. pt shows no facial expression of pain. will continue to monitor.
[2018-12-04] MEDS: Pantoprazole 80 MG in NS 250 ML IV SCH ×3 (01:16→20:32)
--- NOTE | 2018-12-04 02:00 | NUR ---
NURSE NOTES: Pt has been cleaned with another RN and POUND ATTENDANT. pt skin assessed, no additional skin issue to report. Iv lines stable, Vital signs stable. dressings are stable. will continue to monitor.
--- NOTE | 2018-12-04 04:00 | NUR ---
NURSE NOTES: Pt turned and position. Vent assessed, vital sings assessed. pt appears stable as of now.
[2018-12-04] MEDS: Morphine Sulfate 2mg/ml Inj(IV/IM USE ONLY) IVP PRN (05:31)
--- NOTE | 2018-12-04 05:31 | NUR ---
NURSE NOTES: Pt was given 2MG Morphine IV for pain based off the FLACC Score (7). Will reassess pt pain level and vital signs.
[2018-12-04 05:45] LABS: HEMATOCRIT 27.4 % (42.0-52.0); MEAN CORPUSCULAR VOLUME 94 FL (80-99); PLATELET COUNT 136 K/UL (150-450); RED BLOOD COUNT 2.92 M/UL (4.70-6.10); RED CELL DISTRIBUTION WIDTH 16.9 % (11.6-14.8); WHITE BLOOD COUNT 13.5 K/UL (4.8-10.8)
[2018-12-04 06:17] LABS: ALANINE AMINOTRANSFERASE 15 U/L (12-78); ALBUMIN 1.9 G/DL (3.4-5.0); ALBUMIN/GLOBULIN RATIO 0.9 (1.0-2.7); ALKALINE PHOSPHATASE 41 U/L (46-116); ANION GAP 8 mmol/L (5-15); ASPARTATE AMINO TRANSFERASE 18 U/L (15-37); BILIRUBIN,TOTAL 0.8 MG/DL (0.2-1.0); BLOOD UREA NITROGEN 15 mg/dL (7-18); CALCIUM 7.8 MG/DL (8.5-10.1); CARBON DIOXIDE 22 MMOL/L (21-32); CHLORIDE 114 MMOL/L (98-107); CREATININE 0.5 MG/DL (0.55-1.30); PHOSPHORUS 2.1 MG/DL (2.5-4.9); SODIUM 144 MMOL/L (136-145)
--- NOTE | 2018-12-04 06:33 | NUR ---
NURSE NOTES:Pt noted to have blackish stools with blood stained, observed pts vital sign and Hgb/Hct. Cleaned up pt
--- NOTE | 2018-12-04 06:55 | NUR ---
NURSE NOTES: Critical Lab Value report from [facility]. Troponin 0.178 notified. messaged MD Washington to alert . awaiting new orders.
--- NOTE | 2018-12-04 07:08 | NUR ---
RESPIRATORY NOTE: Received pt on AC 10-600ml-30%FiO2, saturates at 100%. Pt is orally intubated with ETT 7.5 @25cm lips line, secured with anchor fast. Mauricio rhonchi B/S, suctioned moderate amt of thick yellow/harmon secretions without incidents. Pt is tachycardia HR >100bpm, awake and able to track and follow simple commands. No SOB or resp distress noted at this time. Alarms are set and audible, vent is plugged into the red outlet, ambu bag is at bedside. Will continue to monitor pt.
--- NOTE | 2018-12-04 07:26 | NUR ---
HAND-OFF: Report given to [facility].
--- NOTE | 2018-12-04 07:45 | NUR ---
NURSE NOTES: Dr. Del Toro made aware of patient bowel movement with color of blackish tarry soft stool, patient ANGIE drain has clear yellow fluid, no verbal orders given at this time
--- NOTE | 2018-12-04 07:58 | General Progress Note ---
Assessment/Plan Problem List: (1) Seizures ICD Codes: R56.9 - Unspecified convulsions SNOMED: 36245700 (2) Parkinson disease ICD Codes: G20 - Parkinson's disease SNOMED: 95812908 (3) Alzheimer's dementia ICD Codes: G30.9 - Alzheimer's disease, unspecified; F02.80 - Dementia in other diseases classified elsewhere without behavioral disturbance SNOMED: 04140667 (4) COPD (chronic obstructive pulmonary disease) ICD Codes: J44.9 - Chronic obstructive pulmonary disease, unspecified SNOMED: 68277144 (5) Feeding by G-tube ICD Codes: Z93.1 - Gastrostomy status SNOMED: 335826192, 712412210, 294887917 (6) Anemia, chronic disease ICD Codes: D63.8 - Anemia in other chronic diseases classified elsewhere SNOMED: 677406323, 125193720 Status: progressing, unchanged Assessment/Plan: Duodenal ulcer s/p SURG POD #2 npo iv ppi stable H&H will fu Subjective ROS Limited/Unobtainable: No Allergies: Coded Allergies: No Known Allergies (Unverified , 11/18/18) Objective Last 24 Hour Vital Signs Date Time Temp Pulse Resp B/P (MAP) Pulse Ox O2 Delivery O2 Flow Rate FiO2 12/04/18 07:08 121 15 30 12/04/18 06:00 125 16 106/64 (78) 100 12/04/18 05:03 132 26 30 12/04/18 05:00 98.2 125 17 112/65 (81) 100 12/04/18 04:00 Mechanical Ventilator 12/04/18 04:00 105 12/04/18 04:00 30 12/04/18 04:00 98.4 105 17 96/56 (69) 100 12/04/18 03:07 115 21 30 12/04/18 03:00 98.4 138 17 112/61 (78) 100 12/04/18 02:00 98.4 120 17 108/50 (69) 100 12/04/18 01:00 98.6 115 16 110/64 (79) 100 12/04/18 00:57 117 16 30 12/04/18 00:00 Mechanical Ventilator 12/04/18 00:00 123 12/04/18 00:00 30 12/04/18 00:00 98.6 123 16 105/54 (71) 100 12/03/18 23:00 98.6 118 16 102/65 (77) 100 12/03/18 22:55 133 22 30 12/03/18 22:00 98.3 120 16 112/68 (83) 99 12/03/18 21:07 117 12 30 12/03/18 21:00 98.3 111 16 116/65 (82) 99 12/03/18 21:00 116/65 12/03/18 20:45 108/62 12/03/18 20:30 115/69 12/03/18 20:15 117/61 12/03/18 20:00 30 12/03/18 20:00 111 12/03/18 20:00 98.3 111 15 124/61 (82) 99 12/03/18 20:00 124/61 12/03/18 20:00 Mechanical Ventilator 12/03/18 19:15 114 13 30 12/03/18 18:09 112/59 12/03/18 18:00 117/53 12/03/18 18:00 112 14 112/59 (76) 100 12/03/18 17:30 96 15 117/63 (81) 100 12/03/18 17:09 134 13 30 12/03/18 17:00 113 15 119/59 (79) 100 12/03/18 17:00 119/59 12/03/18 16:30 98 14 106/59 (75) 100 12/03/18 16:00 Mechanical Ventilator 12/03/18 16:00 30 12/03/18 16:00 131 15 101/63 (76) 100 12/03/18 16:00 101/63 12/03/18 16:00 123 12/03/18 15:30 105 14 117/61 (79) 100 12/03/18 15:00 98 13 125/67 (86) 100 12/03/18 15:00 125/67 12/03/18 14:34 140 13 30 12/03/18 14:30 98.7 113 14 118/69 (85) 100 12/03/18 14:17 144 12/03/18 14:15 144 14 118/74 (89) 100 12/03/18 14:02 129/91 12/03/18 14:00 145 14 129/91 (104) 100 12/03/18 13:32 98.7 12/03/18 13:30 139 16 120/78 (92) 100 12/03/18 13:03 107/71 12/03/18 13:00 143 17 146/89 (108) 100 12/03/18 12:47 148 19 30 12/03/18 12:45 100.3 149 22 107/71 (83) 99 12/03/18 12:30 148 16 98/74 (82) 100 12/03/18 12:15 137 15 99/64 (76) 100 12/03/18 12:00 30 12/03/18 12:00 146 12/03/18 12:00 146 16 107/71 (83) 100 12/03/18 12:00 Mechanical Ventilator 12/03/18 11:45 136 15 103/56 (72) 100 12/03/18 11:30 143 17 105/68 (80) 100 12/03/18 11:15 144 16 98/69 (79) 100 12/03/18 11:00 144 16 98/73 (81) 100 12/03/18 11:00 98/73 12/03/18 10:33 146 15 30 12/03/18 10:30 146 15 101/77 (85) 100 12/03/18 10:15 145 15 98/67 (77) 100 12/03/18 10:00 144 15 99/69 (79) 99 12/03/18 10:00 99/69 12/03/18 09:45 143 16 102/69 (80) 100 12/03/18 09:30 85/65 12/03/18 09:30 142 17 95/65 (75) 99 12/03/18 09:15 143 18 87/58 (68) 99 12/03/18 09:12 146 21 30 12/03/18 09:11 84/59 12/03/18 09:00 147 18 84/59 (67) 99 12/03/18 08:57 85/50 12/03/18 08:54 180 12/03/18 08:45 188 19 85/62 (70) 100 12/03/18 08:37 144 12/03/18 08:36 106 16 100 12/03/18 08:30 126 19 80/60 (67) 100 12/03/18 08:00 30 12/03/18 08:00 109 12/03/18 08:00 Mechanical Ventilator 12/03/18 08:00 99.2 109 17 112/67 (82) 100 Intake and Output 12/03/18 12/04/18 19:00 07:00 Intake Total 1321.208 ml 1190.00 ml Output Total 1205 ml 760 ml Balance 116.208 ml 430.00 ml Free Water 180 ml IV Total 1141.208 ml 1190.00 ml Output Urine Total 680 ml 470 ml Gastric Drainage Total 475 ml 200 ml Drainage Total 50 ml 90 ml # Bowel Movements 2 Laboratory Tests 12/03/18 15:30: Urine Color Brown, Urine Appearance Clear, Urine pH 5, Urine Specific [place] 1.020, Urine Protein 2+H, Urine Glucose (UA) Negative, Urine Ketones Negative, Urine Blood 1+H, Urine Nitrite Negative, Urine Bilirubin Negative, Urine Urobilinogen Normal, Urine Leukocyte Esterase 1+H, Urine RBC 2-4H, Urine WBC 2-4 , Urine Squamous Epithelial Cells None, Urine Bacteria ModerateH, Urine Granular Casts 0-2H 12/04/18 04:57: White Blood Count 13.5H, Red Blood Count 2.92L, Hemoglobin 9.0L, Hematocrit 27.4L, Mean Corpuscular Volume 94, Mean Corpuscular Hemoglobin 31.0, Mean Corpuscular Hemoglobin Concent 33.0, Red Cell Distribution Width 16.9H, Platelet Count 136L, Mean Platelet Volume 6.6, Neutrophils (%) (Auto) , Lymphocytes (%) (Auto) , Monocytes (%) (Auto) , Eosinophils (%) (Auto) , Basophils (%) (Auto) , Sodium Level 144, Potassium Level 3.0L, Chloride Level 114H, Carbon Dioxide Level 22, Anion Gap 8, Blood Urea Nitrogen 15, Creatinine 0.5L, Estimat Glomerular Filtration Rate , Glucose Level 130H, Lactic Acid Level 1.90, Uric Acid 5.0, Calcium Level 7.8L, Phosphorus Level 2.1L, Magnesium Level 1.8, Total Bilirubin 0.8, Aspartate Amino Transf (AST/SGOT) 18, Alanine Aminotransferase (ALT/SGPT) 15, Alkaline Phosphatase 41L, Troponin I 0.178H, C- Reactive Protein, Quantitative 15.1H, Pro-B-Type Natriuretic Peptide 5268H, Total Protein 3.9L, Albumin 1.9L, Globulin 2.0, Albumin/Globulin Ratio 0.9L, Digoxin Level 0.9 Height (Feet): 5 Height (Inches): 5.00 Weight (Pounds): 130 General Appearance: no apparent distress EENT: normal ENT inspection Neck: supple Cardiovascular: normal rate Respiratory/Chest: decreased breath sounds Abdomen: normal bowel sounds, non tender, soft Extremities: non-tender Deacon Dallas MD Dec 04, 2018 07:58
--- NOTE | 2018-12-04 08:44 | NUR ---
RADIOLOGY DEPT., CHEST X-RAY DONE.-P.DYE
--- NOTE | 2018-12-04 08:48 | NUR ---
NURSE NOTES: Dr. Trinidad at the bedside and placed order for potassium Phosphate 30MM IVPB, Urine status remains clear and straw colored, will continue to monitor
[2018-12-04] MEDS: Lactobacillus-GG tablet ORAL SCH ×3 (09:00→18:00)
[2018-12-04] MEDS: Levodopa/Carbidopa 25/100 tab GT SCH ×3 (09:00→18:00)
[2018-12-04] MEDS: Vancomycin oral 125mg/2.5ml ORAL SCH (09:00)
[2018-12-04] MEDS ORDERED: Vancomycin 750mg/NS 275ml IVPB SCH ×2 (09:00)
[2018-12-04] MEDS: Hydrocortisone 2.5% Cream - 30gm TOPIC SCH ×2 (09:08→20:32)
[2018-12-04] MEDS: Vancomycin 500mg/D5W 110ml IVPB SCH ×2 (09:08)
--- NOTE | 2018-12-04 09:18 | NUR ---
RD ASSESSMENT & RECOMMENDATIONS SEE CARE ACTIVITY FOR COMPLETE ASSESSMENT DAILY ESTIMATED NEEDS: Needs based on Wounds, sepsis 60.5kg 25-35 kcals/kg 4601-4961 total kcals 1.25-2 g protein/kg 76-121 g total protein 25-30 mL/kg 1186-5717 total fluid mLs NUTRITION DIAGNOSIS: 1) Increased kcal and pro needs r/t wound healing as evidenced by pt w/ wounds, including unstageable sacral, full thickness spinal wound, DTPI BL heels. 2) Swallowing difficulty r/t dysphagia as evidenced by pt w/ Parkinsons dz, GT dependent. CURRENT TF:NPO, POD #2 ENTERAL NUTRITION RECOMMENDATIONS: Glucerna 1.2 @ 60ml/hr x24 hrs to provide 1440ml, 1728 kcal, 86g pro, 1159ml free H2O - As medically able, restart TF at 20ml/hr. - Increase goal rate slowly as tolerated to 60ml/hr x 24 hrs - Flush per MD/ HOB over 30 degrees ADDITIONAL RECOMMENDATIONS: 1) Per SNF: 5'6" ht, 133 lbs wt -> Rec re-calibrated bedscale wt for accurate CBW 2) Wound care: Add YOLI BID via GT + VIT C 250mg BID 3) Hypoglycemics prn/ niss 4) Monitor lytes, replete as needed (low K and phos) .
--- NOTE | 2018-12-04 09:42 | Pulmonolgy Critical Care Note ---
Critical Care - Asmt/Plan Problems: (1) Hemorrhagic shocks (2) Status post exploratory laparotomy (3) Duodenal ulcer hemorrhage (4) SVT (supraventricular tachycardia) (5) HCAP (healthcare-associated pneumonia) (6) Acute DVT (deep venous thrombosis) (7) COPD (chronic obstructive pulmonary disease) (8) S/P insertion of IVC (inferior vena caval) filter (9) C. difficile colitis (10) Alzheimer's dementia (11) Parkinson disease (12) Feeding by G-tube (13) Seizures (14) Severe protein-calorie malnutrition Respiratory: monitor respiratory rate, adjust FIO2, CXR Cardiac: continue to monitor HR/BP Renal: F/U I&O, check electrolytes Infectious Disease: check cultures Gastrointestinal: continue feedings/current rate Endocrine: monitor blood sugar, check HgA1C, continue sliding scale insulin Hematologic: transfuse if hgb<8.5 Neurologic: PRN Ativan, keep patient comfortable Affect: PRN ativan Prophylaxis: Protonix, Heparin Time Spent (Minutes): 40 Notes Reviewed: digital media strategist, cardio, renal Discussed with: nurses, consultants, case makerregional sales manager - Objective Last 24 Hour Vital Signs Date Time Temp Pulse Resp B/P (MAP) Pulse Ox O2 Delivery O2 Flow Rate FiO2 12/04/18 08:00 98.8 115 17 130/106 (114) 100 12/04/18 08:00 30 12/04/18 08:00 117 12/04/18 07:08 121 15 30 12/04/18 07:00 113 16 106/71 (83) 100 12/04/18 06:00 125 16 106/64 (78) 100 12/04/18 05:03 132 26 30 12/04/18 05:00 98.2 125 17 112/65 (81) 100 12/04/18 04:00 Mechanical Ventilator 12/04/18 04:00 105 12/04/18 04:00 30 12/04/18 04:00 98.4 105 17 96/56 (69) 100 12/04/18 03:07 115 21 30 12/04/18 03:00 98.4 138 17 112/61 (78) 100 12/04/18 02:00 98.4 120 17 108/50 (69) 100 12/04/18 01:00 98.6 115 16 110/64 (79) 100 12/04/18 00:57 117 16 30 12/04/18 00:00 Mechanical Ventilator 12/04/18 00:00 123 12/04/18 00:00 30 12/04/18 00:00 98.6 123 16 105/54 (71) 100 12/03/18 23:00 98.6 118 16 102/65 (77) 100 12/03/18 22:55 133 22 30 12/03/18 22:00 98.3 120 16 112/68 (83) 99 12/03/18 21:07 117 12 30 12/03/18 21:00 98.3 111 16 116/65 (82) 99 12/03/18 21:00 116/65 12/03/18 20:45 108/62 12/03/18 20:30 115/69 12/03/18 20:15 117/61 12/03/18 20:00 30 12/03/18 20:00 111 12/03/18 20:00 98.3 111 15 124/61 (82) 99 12/03/18 20:00 124/61 12/03/18 20:00 Mechanical Ventilator 12/03/18 19:15 114 13 30 12/03/18 18:09 112/59 12/03/18 18:00 117/53 12/03/18 18:00 112 14 112/59 (76) 100 12/03/18 17:30 96 15 117/63 (81) 100 12/03/18 17:09 134 13 30 12/03/18 17:00 113 15 119/59 (79) 100 12/03/18 17:00 119/59 12/03/18 16:30 98 14 106/59 (75) 100 12/03/18 16:00 Mechanical Ventilator 12/03/18 16:00 30 12/03/18 16:00 131 15 101/63 (76) 100 12/03/18 16:00 101/63 12/03/18 16:00 123 12/03/18 15:30 105 14 117/61 (79) 100 12/03/18 15:00 98 13 125/67 (86) 100 12/03/18 15:00 125/67 12/03/18 14:34 140 13 30 12/03/18 14:30 98.7 113 14 118/69 (85) 100 12/03/18 14:17 144 7/10/19 14:15 144 14 118/74 (89) 100 12/03/18 14:02 129/91 12/03/18 14:00 145 14 129/91 (104) 100 12/03/18 13:32 98.7 12/03/18 13:30 139 16 120/78 (92) 100 12/03/18 13:03 107/71 12/03/18 13:00 143 17 146/89 (108) 100 12/03/18 12:47 148 19 30 12/03/18 12:45 100.3 149 22 107/71 (83) 99 12/03/18 12:30 148 16 98/74 (82) 100 12/03/18 12:15 137 15 99/64 (76) 100 12/03/18 12:00 30 12/03/18 12:00 146 12/03/18 12:00 146 16 107/71 (83) 100 12/03/18 12:00 Mechanical Ventilator 12/03/18 11:45 136 15 103/56 (72) 100 12/03/18 11:30 143 17 105/68 (80) 100 12/03/18 11:15 144 16 98/69 (79) 100 12/03/18 11:00 144 16 98/73 (81) 100 12/03/18 11:00 98/73 12/03/18 10:33 146 15 30 12/03/18 10:30 146 15 101/77 (85) 100 12/03/18 10:15 145 15 98/67 (77) 100 12/03/18 10:00 144 15 99/69 (79) 99 12/03/18 10:00 99/69 12/03/18 09:45 143 16 102/69 (80) 100 Status: awake Condition: critical HEENT: atraumatic Lungs: clear Heart: HR/BP stable Abdomen: soft, non-tender Extremities: no C/C/E, edema Micro: Microbiology Date/Time Source Procedure Growth Status 12/03/18 09:10 Sputum Gram Stain Pending Resulted 12/03/18 09:10 Sputum Culture - Preliminary Gram Negative Bacillus 1 Usual Upper Respiratory Navya Resulted 12/03/18 15:30 Urine,Clean Catch Urine Culture - Preliminary NO GROWTH Resulted Critical Care - Subjective ROS Limited/Unobtainable: No Condition: critical EKG Rhythm: Sinus Rhythm FI02: 30 Vent Support Breath Rate: 10 Vent Support Mode: AC Vent Tidal Volume: 600 Sputum Amount: Moderate PEEP: 0.0 PIP: 20 Tube Feeding Amount: 0 I&O: Intake and Output 12/03/18 12/04/18 19:00 07:00 Intake Total 1321.208 ml 1190.00 ml Output Total 1205 ml 835 ml Balance 116.208 ml 355.00 ml Free Water 180 ml IV Total 1141.208 ml 1190.00 ml Output Urine Total 680 ml 545 ml Gastric Drainage Total 475 ml 200 ml Drainage Total 50 ml 90 ml # Bowel Movements 2 CXR: no new changes ET-Tube: 7.5 ET Position: 25 Labs: Laboratory Tests Test 12/03/18 15:30 12/04/18 04:57 Urine Color Brown Urine Appearance Clear Urine pH 5 (4.5-8.0) Urine Specific [place] 1.020 (1.005-1.035) Urine Protein 2+ (NEGATIVE) H Urine Glucose (UA) Negative (NEGATIVE) Urine Ketones Negative (NEGATIVE) Urine Blood 1+ (NEGATIVE) H Urine Nitrite Negative (NEGATIVE) Urine Bilirubin Negative (NEGATIVE) Urine Urobilinogen Normal MG/DL (0.0-1.0) Urine Leukocyte Esterase 1+ (NEGATIVE) H Urine RBC 2-4 /HPF (0 - 0) H Urine WBC 2-4 /HPF (0 - 0) Urine Squamous Epithelial Cells None /LPF (NONE/OCC) Urine Bacteria Moderate /HPF (NONE) H Urine Granular Casts 0-2 /LPF (NONE) H White Blood Count 13.5 K/UL (4.8-10.8) H Red Blood Count 2.92 M/UL (4.70-6.10) L Hemoglobin 9.0 G/DL (14.2-18.0) L Hematocrit 27.4 % (42.0-52.0) L Mean Corpuscular Volume 94 FL (80-99) Mean Corpuscular Hemoglobin 31.0 PG (27.0-31.0) Mean Corpuscular Hemoglobin Concent 33.0 G/DL (32.0-36.0) Red Cell Distribution Width 16.9 % (11.6-14.8) H Platelet Count 136 K/UL (150-450) L Mean Platelet Volume 6.6 FL (6.5-10.1) Neutrophils (%) (Auto) % (45.0-75.0) Lymphocytes (%) (Auto) % (20.0-45.0) Monocytes (%) (Auto) % (1.0-10.0) Eosinophils (%) (Auto) % (0.0-3.0) Basophils (%) (Auto) % (0.0-2.0) Sodium Level 144 MMOL/L (136-145) Potassium Level 3.0 MMOL/L (3.5-5.1) L Chloride Level 114 MMOL/L (98-107) H Carbon Dioxide Level 22 MMOL/L (21-32) Anion Gap 8 mmol/L (5-15) Blood Urea Nitrogen 15 mg/dL (7-18) Creatinine 0.5 MG/DL (0.55-1.30) L Estimat Glomerular Filtration Rate mL/min (>60) Glucose Level 130 MG/DL (74-106) H Lactic Acid Level 1.90 mmol/L (0.4-2.0) Uric Acid 5.0 MG/DL (2.6-7.2) Calcium Level 7.8 MG/DL (8.5-10.1) L Phosphorus Level 2.1 MG/DL (2.5-4.9) L Magnesium Level 1.8 MG/DL (1.8-2.4) Total Bilirubin 0.8 MG/DL (0.2-1.0) Aspartate Amino Transf (AST/SGOT) 18 U/L (15-37) Alanine Aminotransferase (ALT/SGPT) 15 U/L (12-78) Alkaline Phosphatase 41 U/L (46-116) L Troponin I 0.178 ng/mL (0.000-0.056) C-Reactive Protein, Quantitative 15.1 mg/dL (0.00-0.90) H Pro-B-Type Natriuretic Peptide 5268 pg/mL (0-125) H Total Protein 3.9 G/DL (6.4-8.2) L Albumin 1.9 G/DL (3.4-5.0) L Globulin 2.0 g/dL Albumin/Globulin Ratio 0.9 (1.0-2.7) L Digoxin Level 0.9 NG/ML (0.5-2.0) David Carrasquillo MD Dec 04, 2018 09:42
--- NOTE | 2018-12-04 09:48 | NUR ---
RESPIRATORY NOTE: Placed pt on CPAP PS 8 no peep, 30% FiO2 per Dr. Carrasquillo's order. Pt is tolerating really well. no SOB or resp distress noted. RSBI 21, NIF -19, saturates at 100%. RN Jewel and made aware. No ABG order. Will continue to monitor pt.
--- NOTE | 2018-12-04 09:55 | NUR ---
NURSE NOTES: Dr. Yee called to inform of patient NPO status, ordered to have patient placed on flagyl 500mg Q8hrs. Lactobacillus and oral vancomycin will not be able to be given, Dr. Carrasquillo ordered to have vancomycin PO discontinued,
[2018-12-04] MEDS ORDERED: Potassium Phosphate 30 MM in NS 275 ML IV ONE (10:00)
--- NOTE | 2018-12-04 10:34 | Hematology/Onc Progress Note ---
Assessment/Plan Assessment/Plan Assessment/Plan # Acute right leg DVT. Heparin drip DCed for rectal bleed. s/p IVC FILTER --> agree with need for this given coagulant contraindication --> appreciate gi and pulm/cc recs --> UPPER EXT DVT noted as well --> have discontinued eliquis given acute GI bleed on 11/27/18, ON HOLD --> in icu as of 11/27, remains # Anemia due to GI Bleed, other causes exist, multifactorial --> Anemia workup has been reviewed, FERRITIN 831 --> No evidence of hemolysis is noted, peripheral smear has been reviewed. --> Hgb goal >7. Transfuse prn. --> Epogen or iron at this time is not particularly indicated --> Medications have been reviewed --> low threshold for gi evaluation in case has occult +--> endoscopy and colo pending --> hgb trend: 7.4-->9.0-->9-->8.6->8.9-->6.1-->9.8--> 7.3->8.8-->9 --> EGD with duodenal bleed, may need sx --> Blood tx: 1 unit 11/19, 11/27, 12/02 # Thrombocytopenia likely related to infection --> trend plt 111k-->129k # Leukocytosis due to sepsis. --> Monitor for improvement --> urine and blood cultures are both positive, mrsa positive --> IV abx per id --> trend wbc 11.6--> 16 # Sinus tach due to anemia and sepsis and beta danya withdrawal as was on Metoprolol 12.5 bid at [facility] --> per cards recs # Hypertension. Hold Metoprolol as BP is 90s. --> cloniditon per cards # S/P PEG The timing of this note does not necessarily reflect the time of the patient was seen. GREATLY APPRECIATE CONSULTATION. Subjective Constitutional: Denies: no symptoms, chills, fever, malaise, weakness, other HEENT: Denies: no symptoms, eye pain, blurred vision, tearing, double vision, ear pain, ear discharge, nose pain, nose congestion, throat pain, throat swelling, mouth pain, mouth swelling, other Cardiovascular: Denies: no symptoms, chest pain, edema, irregular heart rate, lightheadedness, palpitations, syncope, other Respiratory: Denies: no symptoms, cough, shortness of breath, SOB with excertion, SOB at rest, sputum, wheezing, other Genitourinary: Denies: no symptoms, burning, discharge, frequency, flank pain, hematuria, incontinence, pain, urgency, other Neurologic/Psychiatric: Denies: no symptoms, anxiety, depressed, emotional problems, headache, numbness, paresthesia, pre-existing deficit, seizure, tingling, tremors, weakness, other Endocrine: Denies: no symptoms, excessive sweating, flushing, intolerance to cold, intolerance to heat, increased hunger, increased thirst, increased urine, unexplained weight gain, unexplained weight loss, other Hematologic/Lymphatic: Denies: no symptoms, anemia, easy bleeding, easy bruising, adenopathy, other Allergies: Coded Allergies: No Known Allergies (Unverified , 11/18/18) Subjective Subjective 11/20: Colonoscopy for today. S/P 1 unit prbc. 11/21: Pt awake and nonverbal. Hgb at 7.4, blood tx ordered. 11/23: Pt no acute respiratory distress. CXR Increased bilateral lower lobe atelectasis or airspace consolidation. Underlying pneumonia may be present. Small bilateral pleural effusions. 11/24: no events, no f/c noted, no bleeding, anemia panel reviewed, s/p ivc filter 11/25: No acute events, no signs of distress. DC planning 11/26: no events, no bleeding, noted to have b/l upper ext dvt, acute started on elqiuis 11/27: sbo was ow in the am, transferred to the icu, hgb low requiring transfusion 11/28: Left UE edema > Right UE, s/p blood transfusion 11/27. 11/29:pt is on Venti mask, lethargic. 11/30:pt seen in am, with thick sputum per suctioning. 12/02: no events reported, hgb is better, seen by cards, pulm 12/03: no events, no chills, remains in icu 12/04: is off vanco po, remains in the icu, hgb 9 Objective Objective Current Medications Medications (Trade) Dose Ordered Sig/Pauline Route PRN Reason Start Time Stop Time Status Last Admin Dose Admin Acetaminophen (Tylenol) 650 mg Q4H PRN GT T>100.5 11/27/18 18:18 12/22/18 18:17 12/03/18 13:02 Carbidopa/Levodopa (Sinemet 25/100) 1 tab THREE TIMES A DAY GT 11/27/18 18:00 12/27/18 17:59 12/03/18 17:00 Chlorhexidine Gluconate (Marycarmen-Hex 2%) 1 applic DAILY@2000 TOPIC 11/30/18 20:00 12/30/18 19:59 12/03/18 20:13 Clonidine HCl (Catapres Tab) 0.1 mg Q4H PRN GT sbp>170mmHg 11/27/18 18:18 12/22/18 18:17 Dextrose 1,000 ml @ 75 mls/hr [id number] IV 12/02/18 09:00 01/01/19 08:59 12/04/18 01:16 Dextrose (Dextrose 50%) 25 ml Q30M PRN IV Hypoglycemia 11/27/18 18:18 12/18/18 18:17 Dextrose (Dextrose 50%) 50 ml Q30M PRN IV Hypoglycemia 11/27/18 18:18 12/18/18 18:17 Hydrocortisone (Proctosol-HC Cream) 1 applic Q12HR TOPIC 12/02/18 13:00 01/01/19 12:59 12/04/18 09:08 Lactobacillus Acidophilus (Culturelle) 1 tab THREE TIMES A DAY ORAL 11/29/18 18:00 12/29/18 17:59 12/03/18 17:00 Metronidazole 100 ml @ 100 mls/hr Q8HR IVPB 12/04/18 14:00 12/11/18 13:59 Midazolam HCl (Versed 2mg/2ml vial) 1 mg Q1H PRN IVP SEDATION 12/02/18 20:30 01/01/19 20:29 Morphine Sulfate (Morphine Sulfate) 2 mg Q1H PRN IVP For Pain scale 4-7 12/02/18 20:23 12/09/18 20:22 12/04/18 05:31 Norepinephrine Bitartrate 8 mg/ Sodium Chloride 250 ml @ 0 mls/hr Q24H IV 12/03/18 18:03 01/02/19 18:02 12/03/18 18:09 Pantoprazole 80 mg/Sodium Chloride 250 ml @ 25 mls/hr Q10H IV 11/30/18 17:00 12/30/18 16:59 12/04/18 01:16 Potassium Phosphate 30 mm/ Sodium Chloride 285 ml @ 47.5 mls/hr ONCE ONCE IV 12/04/18 10:00 12/04/18 15:59 Vancomycin HCl (Vanco rx to dose) 1 ea DAILY PRN MISC Per rx protocol 11/27/18 18:18 12/27/18 18:17 Vancomycin HCl 500 mg/Dextrose 110 ml @ 110 mls/hr Q24H IVPB 12/04/18 09:00 12/16/18 23:59 12/04/18 09:08 Last 24 Hour Vital Signs Date Time Temp Pulse Resp B/P (MAP) Pulse Ox O2 Delivery O2 Flow Rate FiO2 12/04/18 09:48 108 13 30 30 12/04/18 09:48 100 12/04/18 09:25 120 18 30 12/04/18 08:00 98.8 115 17 130/106 (114) 100 12/04/18 08:00 30 12/04/18 08:00 117 12/04/18 07:08 121 15 30 12/04/18 07:00 113 16 106/71 (83) 100 12/04/18 06:00 125 16 106/64 (78) 100 12/04/18 05:03 132 26 30 12/04/18 05:00 98.2 125 17 112/65 (81) 100 12/04/18 04:00 Mechanical Ventilator 12/04/18 04:00 105 12/04/18 04:00 30 12/04/18 04:00 98.4 105 17 96/56 (69) 100 12/04/18 03:07 115 21 30 12/04/18 03:00 98.4 138 17 112/61 (78) 100 12/04/18 02:00 98.4 120 17 108/50 (69) 100 12/04/18 01:00 98.6 115 16 110/64 (79) 100 12/04/18 00:57 117 16 30 12/04/18 00:00 Mechanical Ventilator 12/04/18 00:00 123 12/04/18 00:00 30 12/04/18 00:00 98.6 123 16 105/54 (71) 100 12/03/18 23:00 98.6 118 16 102/65 (77) 100 12/03/18 22:55 133 22 30 12/03/18 22:00 98.3 120 16 112/68 (83) 99 12/03/18 21:07 117 12 30 12/03/18 21:00 98.3 111 16 116/65 (82) 99 12/03/18 21:00 116/65 12/03/18 20:45 108/62 12/03/18 20:30 115/69 12/03/18 20:15 117/61 12/03/18 20:00 30 12/03/18 20:00 111 12/03/18 20:00 98.3 111 15 124/61 (82) 99 12/03/18 20:00 124/61 12/03/18 20:00 Mechanical Ventilator 12/03/18 19:15 114 13 30 12/03/18 18:09 112/59 12/03/18 18:00 117/53 12/03/18 18:00 112 14 112/59 (76) 100 12/03/18 17:30 96 15 117/63 (81) 100 12/03/18 17:09 134 13 30 12/03/18 17:00 113 15 119/59 (79) 100 12/03/18 17:00 119/59 12/03/18 16:30 98 14 106/59 (75) 100 12/03/18 16:00 Mechanical Ventilator 12/03/18 16:00 30 12/03/18 16:00 131 15 101/63 (76) 100 12/03/18 16:00 101/63 12/03/18 16:00 123 12/03/18 15:30 105 14 117/61 (79) 100 12/03/18 15:00 98 13 125/67 (86) 100 12/03/18 15:00 125/67 12/03/18 14:34 140 13 30 12/03/18 14:30 98.7 113 14 118/69 (85) 100 12/03/18 14:17 144 12/03/18 14:15 144 14 118/74 (89) 100 12/03/18 14:02 129/91 12/03/18 14:00 145 14 129/91 (104) 100 12/03/18 13:32 98.7 12/03/18 13:30 139 16 120/78 (92) 100 12/03/18 13:03 107/71 12/03/18 13:00 143 17 146/89 (108) 100 12/03/18 12:47 148 19 30 12/03/18 12:45 100.3 149 22 107/71 (83) 99 12/03/18 12:30 148 16 98/74 (82) 100 12/03/18 12:15 137 15 99/64 (76) 100 12/03/18 12:00 30 12/03/18 12:00 146 12/03/18 12:00 146 16 107/71 (83) 100 12/03/18 12:00 Mechanical Ventilator 12/03/18 11:45 136 15 103/56 (72) 100 12/03/18 11:30 143 17 105/68 (80) 100 12/03/18 11:15 144 16 98/69 (79) 100 12/03/18 11:00 144 16 98/73 (81) 100 12/03/18 11:00 98/73 12/03/18 10:33 146 15 30 12/03/18 10:30 146 15 101/77 (85) 100 12/03/18 10:15 145 15 98/67 (77) 100 12/03/18 10:00 144 15 99/69 (79) 99 12/03/18 10:00 99/69 12/03/18 09:45 143 16 102/69 (80) 100 12/03/18 09:30 85/65 12/03/18 09:30 142 17 95/65 (75) 99 12/03/18 09:15 143 18 87/58 (68) 99 12/03/18 09:12 146 21 30 12/03/18 09:11 84/59 12/03/18 09:00 147 18 84/59 (67) 99 12/03/18 08:57 85/50 12/03/18 08:54 180 12/03/18 08:45 188 19 85/62 (70) 100 12/03/18 08:37 144 12/03/18 08:36 106 16 100 12/03/18 08:30 126 19 80/60 (67) 100 12/03/18 08:00 30 12/03/18 08:00 109 12/03/18 08:00 Mechanical Ventilator 12/03/18 08:00 99.2 109 17 112/67 (82) 100 12/03/18 07:13 112 22 30 12/03/18 07:00 114 16 109/71 (84) 100 12/03/18 06:30 112 16 110/68 (82) 100 12/03/18 06:00 109 17 106/68 (81) 100 12/03/18 05:30 112 17 108/70 (83) 100 12/03/18 05:06 106 16 30 12/03/18 05:00 112 17 108/70 (83) 100 12/03/18 04:30 98.0 109 19 104/73 (83) 100 12/03/18 04:00 Mechanical Ventilator 12/03/18 04:00 115 12/03/18 04:00 98.0 109 19 119/82 (94) 100 12/03/18 04:00 40 12/03/18 03:30 115 22 91/57 (68) 100 12/03/18 03:00 90/52 12/03/18 03:00 113 19 90/52 (65) 99 12/03/18 02:50 99 15 30 12/03/18 02:30 114 19 107/65 (79) 100 12/03/18 02:00 111/65 12/03/18 02:00 105 15 111/65 (80) 100 12/03/18 01:30 105 15 113/55 (74) 100 12/03/18 01:29 102 16 30 12/03/18 01:00 103 16 116/82 (93) 100 12/03/18 01:00 116/82 12/03/18 00:30 105 16 115/58 (77) 100 12/03/18 00:00 98.2 106 16 125/73 (90) 100 12/03/18 00:00 125/73 12/03/18 00:00 Mechanical Ventilator 12/03/18 00:00 40 12/02/18 23:30 113/75 12/02/18 23:30 104 16 113/75 (88) 100 12/02/18 23:15 118/67 12/02/18 23:00 121/71 12/02/18 23:00 101 16 121/71 (88) 100 12/02/18 22:53 95 18 40 12/02/18 22:45 124/71 12/02/18 22:30 121/76 12/02/18 22:30 99 17 121/76 (91) 100 12/02/18 22:15 124/71 12/02/18 22:00 99 17 121/81 (94) 100 12/02/18 22:00 121/81 12/02/18 21:45 123/81 12/02/18 21:30 123/75 12/02/18 21:30 101 18 123/75 (91) 100 12/02/18 21:15 134/80 12/02/18 21:12 98 20 40 12/02/18 21:02 98.6 85 22 135/90 (105) 100 12/02/18 21:00 98.6 99 22 129/88 (102) 100 12/02/18 21:00 40 12/02/18 20:56 129/86 12/02/18 20:45 98.6 99 23 129/88 (102) 100 12/02/18 20:41 121/86 12/02/18 20:30 98.6 94 22 99/67 (78) 99 12/02/18 20:26 90/63 12/02/18 20:00 50 12/02/18 20:00 Mechanical Ventilator 12/02/18 20:00 98.6 101 21 92/68 (76) 100 12/02/18 20:00 101 12/02/18 19:19 106 18 98 12/02/18 19:17 102 15 100 Mechanical Ventilator 50 12/02/18 19:15 98.2 101 21 77/54 (62) 100 12/02/18 19:12 102 15 50 12/02/18 16:00 Nasal Cannula 3.0 12/02/18 14:00 130 23 111/74 (86) 100 12/02/18 13:00 122 19 83/63 (70) 100 12/02/18 12:37 122 20 100 12/02/18 12:16 99 16 100 12/02/18 12:00 119 12/02/18 12:00 85 19 90/63 (72) 100 12/02/18 12:00 Nasal Cannula 3.0 12/02/18 12:00 97.5 12/02/18 11:00 95 16 118/73 (88) 100 Intake and Output 12/03/18 12/04/18 19:00 07:00 Intake Total 1321.208 ml 1190.00 ml Output Total 1205 ml 835 ml Balance 116.208 ml 355.00 ml Free Water 180 ml IV Total 1141.208 ml 1190.00 ml Output Urine Total 680 ml 545 ml Gastric Drainage Total 475 ml 200 ml Drainage Total 50 ml 90 ml # Bowel Movements 2 Labs Test 12/01/18 17:30 12/02/18 05:25 12/02/18 20:05 12/03/18 06:00 White Blood Count 7.5 K/UL (4.8-10.8) 8.8 K/UL (4.8-10.8) 16.1 K/UL (4.8-10.8) 15.6 K/UL (4.8-10.8) Red Blood Count 2.20 M/UL (4.70-6.10) 3.62 M/UL (4.70-6.10) 3.30 M/UL (4.70-6.10) 3.11 M/UL (4.70-6.10) Hemoglobin 7.0 G/DL (14.2-18.0) 11.5 G/DL (14.2-18.0) 10.1 G/DL (14.2-18.0) 9.6 G/DL (14.2-18.0) Hematocrit 20.1 % (42.0-52.0) 33.5 % (42.0-52.0) 30.2 % (42.0-52.0) 28.4 % (42.0-52.0) Mean Corpuscular Volume 91 FL (80-99) 93 FL (80-99) 91 FL (80-99) 91 FL (80- 99) Mean Corpuscular Hemoglobin 31.9 PG (27.0-31.0) 31.7 PG (27.0-31.0) 30.5 PG (27.0-31.0) 31.0 PG (27.0-31.0) Mean Corpuscular Hemoglobin Concent 35.0 G/DL (32.0-36.0) 34.3 G/DL (32.0-36.0) 33.4 G/DL (32.0-36.0) 33.9 G/DL (32.0-36.0) Red Cell Distribution Width 14.2 % (11.6-14.8) 14.8 % (11.6-14.8) 15.5 % (11.6-14.8) 16.4 % (11.6-14.8) Platelet Count 111 K/UL (150-450) 129 K/UL (150-450) 148 K/UL (150-450) 162 K/UL (150-450) Mean Platelet Volume 4.9 FL (6.5-10.1) 5.3 FL (6.5-10.1) 5.7 FL (6.5-10.1) 5.8 FL (6.5-10.1) Neutrophils (%) (Auto) % (45.0-75.0) 78.9 % (45.0-75.0) % (45.0-75.0) % (45.0-75.0) Lymphocytes (%) (Auto) % (20.0-45.0) 10.8 % (20.0-45.0) % (20.0-45.0) % (20.0-45.0) Monocytes (%) (Auto) % (1.0-10.0) 6.9 % (1.0-10.0) % (1.0-10.0) % (1.0-10.0) Eosinophils (%) (Auto) % (0.0-3.0) 2.8 % (0.0-3.0) % (0.0-3.0) % (0.0-3.0) Basophils (%) (Auto) % (0.0-2.0) 0.6 % (0.0-2.0) % (0.0-2.0) % (0.0-2.0) Differential Total Cells Counted 100 100 100 Neutrophils % (Manual) 78 % (45-75) 85 % (45-75) 93 % (45-75) Lymphocytes % (Manual) 14 % (20-45) 7 % (20-45) 2 % (20-45) Monocytes % (Manual) 3 % (1-10) 4 % (1-10) 5 % (1-10) Eosinophils % (Manual) 2 % (0-3) 0 % (0-3) 0 % (0-3) Basophils % (Manual) 1 % (0-2) 1 % (0-2) 0 % (0-2) Band Neutrophils 2 % (0-8) 3 % (0-8) 0 % (0-8) Platelet Estimate Decreased Decreased Adequate Platelet Morphology Normal Normal Normal Polychromasia 1+ Hypochromasia 1+ 1+ 2+ Anisocytosis 1+ 1+ Prothrombin Time 11.2 SEC (9.30-11.50) 12.2 SEC (9.30-11.50) 13.0 SEC (9.30-11.50) Prothromb Time International Ratio 1.1 (0.9-1.1) 1.2 (0.9-1.1) 1.2 (0.9-1.1) Activated Partial Thromboplast Time 26 SEC (23-33) 30 SEC (23-33) Sodium Level 152 MMOL/L (136-145) 149 MMOL/L (136-145) 152 MMOL/L (136-145) Potassium Level 3.6 MMOL/L (3.5-5.1) 4.3 MMOL/L (3.5-5.1) 3.5 MMOL/L (3.5-5.1) Chloride Level 122 MMOL/L (98-107) 119 MMOL/L (98-107) 120 MMOL/L (98-107) Carbon Dioxide Level 25 MMOL/L (21-32) 23 MMOL/L (21-32) 22 MMOL/L (21-32) Anion Gap 5 mmol/L (5-15) 7 mmol/L (5-15) 10 mmol/L (5-15) Blood Urea Nitrogen 17 mg/dL (7-18) 20 mg/dL (7-18) 19 mg/dL (7-18) Creatinine 0.5 MG/DL (0.55-1.30) 0.6 MG/DL (0.55-1.30) 0.6 MG/DL (0.55-1.30) Estimat Glomerular Filtration Rate mL/min (>60) mL/min (>60) mL/min (>60) Glucose Level 115 MG/DL (74-106) 171 MG/DL (74-106) 170 MG/DL (74-106) Calcium Level 7.7 MG/DL (8.5-10.1) 7.3 MG/DL (8.5-10.1) 7.7 MG/DL (8.5-10.1) Phosphorus Level 2.7 MG/DL (2.5-4.9) 2.7 MG/DL (2.5-4.9) Magnesium Level 1.7 MG/DL (1.8-2.4) 1.7 MG/DL (1.8-2.4) Total Bilirubin 0.5 MG/DL (0.2-1.0) 0.7 MG/DL (0.2-1.0) 1.0 MG/DL (0.2-1.0) Aspartate Amino Transf (AST/SGOT) 13 U/L (15-37) 52 U/L (15-37) 29 U/L (15-37) Alanine Aminotransferase (ALT/SGPT) 9 U/L (12-78) 24 U/L (12-78) 25 U/L (12-78) Alkaline Phosphatase 57 U/L (46-116) 41 U/L (46-116) 42 U/L (46-116) Total Protein 3.8 G/DL (6.4-8.2) 3.7 G/DL (6.4-8.2) 3.8 G/DL (6.4-8.2) Albumin 1.3 G/DL (3.4-5.0) 1.6 G/DL (3.4-5.0) 2.0 G/DL (3.4-5.0) Globulin 2.5 g/dL 2.1 g/dL 1.8 g/dL Albumin/Globulin Ratio 0.5 (1.0-2.7) 0.8 (1.0-2.7) 1.1 (1.0-2.7) Arterial Blood pH 7.402 (7.350-7.450) Arterial Blood Partial Pressure CO2 30.9 mmHg (35.0-45.0) Arterial Blood Partial Pressure O2 116.1 mmHg (75.0-100.0) Arterial Blood HCO3 18.8 mmol/L (22.0-26.0) Arterial Blood Oxygen Saturation 97.8 % (95-100) Arterial Blood Base Excess -5.1 (-2-2) Blake Test Positive Spherocytes 2+ Random Vancomycin Level 7.1 ug/mL Test 12/03/18 15:30 12/04/18 04:57 12/04/18 09:27 Urine Color Brown Urine Appearance Clear Urine pH 5 (4.5-8.0) Urine Specific [place] 1.020 (1.005-1.035) Urine Protein 2+ (NEGATIVE) Urine Glucose (UA) Negative (NEGATIVE) Urine Ketones Negative (NEGATIVE) Urine Blood 1+ (NEGATIVE) Urine Nitrite Negative (NEGATIVE) Urine Bilirubin Negative (NEGATIVE) Urine Urobilinogen Normal MG/DL (0.0-1.0) Urine Leukocyte Esterase 1+ (NEGATIVE) Urine RBC 2-4 /HPF (0 - 0) Urine WBC 2-4 /HPF (0 - 0) Urine Squamous Epithelial Cells None /LPF (NONE/OCC) Urine Bacteria Moderate /HPF (NONE) Urine Granular Casts 0-2 /LPF (NONE) White Blood Count 13.5 K/UL (4.8-10.8) Red Blood Count 2.92 M/UL (4.70-6.10) Hemoglobin 9.0 G/DL (14.2-18.0) Hematocrit 27.4 % (42.0-52.0) Mean Corpuscular Volume 94 FL (80-99) Mean Corpuscular Hemoglobin 31.0 PG (27.0-31.0) Mean Corpuscular Hemoglobin Concent 33.0 G/DL (32.0-36.0) Red Cell Distribution Width 16.9 % (11.6-14.8) Platelet Count 136 K/UL (150-450) Mean Platelet Volume 6.6 FL (6.5-10.1) Neutrophils (%) (Auto) % (45.0-75.0) Lymphocytes (%) (Auto) % (20.0-45.0) Monocytes (%) (Auto) % (1.0-10.0) Eosinophils (%) (Auto) % (0.0-3.0) Basophils (%) (Auto) % (0.0-2.0) Sodium Level 144 MMOL/L (136-145) Potassium Level 3.0 MMOL/L (3.5-5.1) Chloride Level 114 MMOL/L (98-107) Carbon Dioxide Level 22 MMOL/L (21-32) Anion Gap 8 mmol/L (5-15) Blood Urea Nitrogen 15 mg/dL (7-18) Creatinine 0.5 MG/DL (0.55-1.30) Estimat Glomerular Filtration Rate mL/min (>60) Glucose Level 130 MG/DL (74-106) Lactic Acid Level 1.90 mmol/L (0.4-2.0) Uric Acid 5.0 MG/DL (2.6-7.2) Calcium Level 7.8 MG/DL (8.5-10.1) Phosphorus Level 2.1 MG/DL (2.5-4.9) Magnesium Level 1.8 MG/DL (1.8-2.4) Total Bilirubin 0.8 MG/DL (0.2-1.0) Aspartate Amino Transf (AST/SGOT) 18 U/L (15-37) Alanine Aminotransferase (ALT/SGPT) 15 U/L (12-78) Alkaline Phosphatase 41 U/L (46-116) Troponin I 0.178 ng/mL (0.000-0.056) C-Reactive Protein, Quantitative 15.1 mg/dL (0.00-0.90) Pro-B-Type Natriuretic Peptide 5268 pg/mL (0-125) Total Protein 3.9 G/DL (6.4-8.2) Albumin 1.9 G/DL (3.4-5.0) Globulin 2.0 g/dL Albumin/Globulin Ratio 0.9 (1.0-2.7) Digoxin Level 0.9 NG/ML (0.5-2.0) Arterial Blood pH 7.430 (7.350-7.450) Arterial Blood Partial Pressure CO2 29.9 mmHg (35.0-45.0) Arterial Blood Partial Pressure O2 102.6 mmHg (75.0-100.0) Arterial Blood HCO3 19.4 mmol/L (22.0-26.0) Arterial Blood Oxygen Saturation 97.0 % (95-100) Arterial Blood Base Excess -4.2 (-2-2) Blake Test Positive Micro Microbiology Date/Time Source Procedure Growth Status 12/03/18 15:30 Urine,Clean Catch Urine Culture - Preliminary NO GROWTH Resulted Height (Feet): 5 Height (Inches): 5.00 Weight (Pounds): 130 Objective PE General Appearance: WD/WN Lines, tubes and drains: central line HEENT: normocephalic, atraumatic Neck: non-tender, normal alignment Breasts: no masses Cardiovascular/Chest: normal peripheral pulses, normal rate, regular rhythm Abdomen: normal bowel sounds, non tender ++ peg Genitourinary/Rectal: normal genital exam, heme negative stool Extremities: normal range of motion Skin Exam: normal pigmentation 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
--- NOTE | 2018-12-04 11:30 | NUR ---
NURSE NOTES: Dr. Eugene ordered to have dankin's solution applied to sacral wound q12hrs, patient tolerating weaning trial with CPAP, PS 8, FIO2 30% and peep of 5, he remains saturating at 99-100% with RR of 12-16 with no distress noted, Heart rate is at 103-109 in a-fibb with bp 119/69.
--- NOTE | 2018-12-04 12:20 | Diagnostic Imaging Report ---
Indication: Dyspnea Comparison: 12/02/2018 A single view chest radiograph was obtained. Findings: Tubes and lines are stable. Heart size is stable. Some increased groundglass opacification demonstrated at the lung bases and perihilar regions as which may be due to mild vascular congestion. Correlate clinically. IMPRESSION: Suggestion of a slightly worsening vascular congestion
--- NOTE | 2018-12-04 13:05 | NUR ---
RESPIRATORY NOTE: Per RN Jewel, placed pt back on AC mode with the same settings. Pt is rest comfortably in the bed. No SOB or resp distress noted. Will continue to monitor pt.
--- NOTE | 2018-12-04 13:15 | NUR ---
NURSE NOTES: Patient returned to ventilator setting of AC 10, TV: 600 and Fio2 of 30%. tolerated weaning trial well with no distress or retractions noted. remained with setting of CPAP, PS of 8 and FIO2 at 30%. patient HR remained at 102 in A-fibb and BP 109/69, saturations noted to be 100% with RR of 17. patient remain NPO per Dr. dutat and keep G-tube to drain by gravity,
--- NOTE | 2018-12-04 13:54 | General Progress Note ---
Progress Note Progress Note off pressors h/h stable labs noted exam stable drain serosang dressings c/d/i hd improved prognosis guarded cont current care Andrew Eugene Dec 04, 2018 13:53
--- NOTE | 2018-12-04 14:30 | NUR ---
NURSE NOTES: Wound care provided at the bedside and applied Optifoam on bilateral heels, sacral wound observed to be colored brown with edges well approximated at the border, the wound measures 10x7cm, the wound is covered with 4x4 with Dankins solution, covered with suresite, to be changed twice a day per dr. currie.
[2018-12-04] MEDS: Dakin's 0.125% Soln (Quarter Strength) 16oz TOPIC SCH (15:26)
--- NOTE | 2018-12-04 15:41 | Nephrology Progress Note ---
Assessment/Plan Problem List: (1) Hyponatremia Assessment: Na higher (2) UTI (urinary tract infection) (3) Anemia, chronic disease (4) Alzheimer's dementia (5) Parkinson disease (6) C. difficile colitis (7) Perforated duodenal ulcer Assessment Low Na corrected GI bleed transfused other conditions Pneumonia UTI, has grewal bacteremia sacral decub dementia HTN Sz disorder Parkinsons severe Anemia Plan Post OP care ( Laparatomy Op 12/02/18) K and Mag and Phos supplement hemodynamic support Albumin bolus and transfusion for low BP as needed stop HypoTonic IV solution start maintenence IV fluid Urine studies Transfusion as needed Per orders roberto carlos khalil Subjective ROS Limited/Unobtainable: Yes Objective Objective Last 24 Hour Vital Signs Date Time Temp Pulse Resp B/P (MAP) Pulse Ox O2 Delivery O2 Flow Rate FiO2 12/04/18 14:30 96 18 30 12/04/18 14:00 95 14 124/78 (93) 100 12/04/18 13:05 102 23 30 12/04/18 13:00 102 17 109/69 (82) 100 12/04/18 12:00 99.3 106 15 110/60 (77) 100 12/04/18 12:00 30 12/04/18 12:00 102 12/04/18 12:00 Mechanical Ventilator Mechanical Ventilator Mechanical Ventilator 12/04/18 11:00 99 12 118/75 (89) 100 12/04/18 10:52 102 12 30 12/04/18 10:00 106 12 115/66 (82) 100 12/04/18 09:48 108 13 30 30 12/04/18 09:48 30 12/04/18 09:48 100 12/04/18 09:25 120 18 30 12/04/18 09:00 111 17 113/52 (72) 100 12/04/18 08:00 Mechanical Ventilator Mechanical Ventilator Mechanical Ventilator 12/04/18 08:00 98.8 115 17 130/106 (114) 100 12/04/18 08:00 30 12/04/18 08:00 117 12/04/18 07:08 121 15 30 12/04/18 07:00 113 16 106/71 (83) 100 12/04/18 06:00 125 16 106/64 (78) 100 12/04/18 05:03 132 26 30 12/04/18 05:00 98.2 125 17 112/65 (81) 100 12/04/18 04:00 Mechanical Ventilator 12/04/18 04:00 105 12/04/18 04:00 30 12/04/18 04:00 98.4 105 17 96/56 (69) 100 12/04/18 03:07 115 21 30 12/04/18 03:00 98.4 138 17 112/61 (78) 100 12/04/18 02:00 98.4 120 17 108/50 (69) 100 12/04/18 01:00 98.6 115 16 110/64 (79) 100 12/04/18 00:57 117 16 30 12/04/18 00:00 Mechanical Ventilator 12/04/18 00:00 123 12/04/18 00:00 30 12/04/18 00:00 98.6 123 16 105/54 (71) 100 12/03/18 23:00 98.6 118 16 102/65 (77) 100 12/03/18 22:55 133 22 30 12/03/18 22:00 98.3 120 16 112/68 (83) 99 12/03/18 21:07 117 12 30 12/03/18 21:00 98.3 111 16 116/65 (82) 99 12/03/18 21:00 116/65 12/03/18 20:45 108/62 12/03/18 20:30 115/69 12/03/18 20:15 117/61 12/03/18 20:00 30 12/03/18 20:00 111 12/03/18 20:00 98.3 111 15 124/61 (82) 99 12/03/18 20:00 124/61 12/03/18 20:00 Mechanical Ventilator 12/03/18 19:15 114 13 30 12/03/18 18:09 112/59 12/03/18 18:00 117/53 12/03/18 18:00 112 14 112/59 (76) 100 12/03/18 17:30 96 15 117/63 (81) 100 12/03/18 17:09 134 13 30 12/03/18 17:00 113 15 119/59 (79) 100 12/03/18 17:00 119/59 12/03/18 16:30 98 14 106/59 (75) 100 12/03/18 16:00 Mechanical Ventilator 12/03/18 16:00 30 12/03/18 16:00 131 15 101/63 (76) 100 12/03/18 16:00 101/63 12/03/18 16:00 123 Intake and Output 12/03/18 12/04/18 18:59 06:59 Intake Total 1421.208 ml 1190.00 ml Output Total 1245 ml 760 ml Balance 176.208 ml 430.00 ml Free Water 180 ml IV Total 1241.208 ml 1190.00 ml Output Urine Total 720 ml 470 ml Gastric Drainage Total 475 ml 200 ml Drainage Total 50 ml 90 ml # Bowel Movements 2 Laboratory Tests 12/04/18 04:57: White Blood Count 13.5H, Red Blood Count 2.92L, Hemoglobin 9.0L, Hematocrit 27.4L, Mean Corpuscular Volume 94, Mean Corpuscular Hemoglobin 31.0, Mean Corpuscular Hemoglobin Concent 33.0, Red Cell Distribution Width 16.9H, Platelet Count 136L, Mean Platelet Volume 6.6, Neutrophils (%) (Auto) , Lymphocytes (%) (Auto) , Monocytes (%) (Auto) , Eosinophils (%) (Auto) , Basophils (%) (Auto) , Sodium Level 144, Potassium Level 3.0L, Chloride Level 114H, Carbon Dioxide Level 22, Anion Gap 8, Blood Urea Nitrogen 15, Creatinine 0.5L, Estimat Glomerular Filtration Rate , Glucose Level 130H, Lactic Acid Level 1.90, Uric Acid 5.0, Calcium Level 7.8L, Phosphorus Level 2.1L, Magnesium Level 1.8, Total Bilirubin 0.8, Aspartate Amino Transf (AST/SGOT) 18, Alanine Aminotransferase (ALT/SGPT) 15, Alkaline Phosphatase 41L, Troponin I 0.178H, C- Reactive Protein, Quantitative 15.1H, Pro-B-Type Natriuretic Peptide 5268H, Total Protein 3.9L, Albumin 1.9L, Globulin 2.0, Albumin/Globulin Ratio 0.9L, Digoxin Level 0.9 12/04/18 09:27: Arterial Blood pH 7.430, Arterial Blood Partial Pressure CO2 29.9L, Arterial Blood Partial Pressure O2 102.6H, Arterial Blood HCO3 19.4L, Arterial Blood Oxygen Saturation 97.0, Arterial Blood Base Excess -4.2L, Blake Test Positive Height (Feet): 5 Height (Inches): 5.00 Weight (Pounds): 130 General Appearance: no apparent distress EENT: other - vented Cardiovascular: tachycardia Respiratory/Chest: decreased breath sounds Abdomen: distended, other - silent Objective no change Kendall Trinidad MD Dec 04, 2018 15:41
--- NOTE | 2018-12-04 15:45 | Progress Note ---
DATE: 12/04/2018 SUBJECTIVE: This is a 73-year-old male patient with sepsis and pneumonia. The patient continues to have some confusion, some disorganized thought process, and decline in cognition below his baseline. That is why his attending physician has requested daily psychiatric consultation. MENTAL STATUS EXAMINATION: The patient is a 73-year-old male. Appearance is disheveled. Attitude, irritable and agitated. Affect, guarded and restricted. Intellect, poor. Mood, depressed and anxious. Motor activity, psychomotor agitation. Insight and judgment is poor. DIAGNOSIS: Major depressive disorder, mild, recurrent with psychotic features, rule out dementia with psychosis. PLAN: Continue treatment with medications to prevent further decline in cognition. Chart reviewed. Discussed with staff. Seen and assessed at bedside. Laith Mason M.D. DR: ELLYN JOB#: [id number] CC:
--- NOTE | 2018-12-04 16:41 | NUR ---
NURSE NOTES:WOUND CARE FOLLOW-UP NOTES:Pt with generalized edemae weeping large amt.of serous exudate from bilat upper ext.Resolving skin tear L upper ext .Base of wound dry with 100% flap loss. Petechia noted to dorsal R forearm. Non-blanchable erythema noted to R elbow. Full thickness sacral pressure injury.100% soft necrosis at base of of wound. Wound is malodorous. Small amt brown exudate noted. Periwound is erythematous, indurated with additional scattered small wounds with slough.(L)10cm x (W)7cm. Small area of dry eschar noted to L heel (L)0.6cm x (W)0.5cm. Periwound L heel is fluctuant with non-blanchable erythema. R heel is pink and blanchable with dry ,peeling skin. R lateral malleolus maroon with fluctuance (L)1.5cm x (W)1.5cm. No other skin concerns noted.Wound care provided with primary nurse assistance.New Tx orders for Dakin's 0.125% padma. noted. Tx done as ordered.Pt positioned with pillows and has an APM?FERNANDEZ mattress overlay. Both upper ext wrapped in ULtrasorb pads for moisture absorption.
--- NOTE | 2018-12-04 16:43 | Cardiac Electrophysiology PN ---
Assessment/Plan Assessment/Plan 1. Post op atrial fib with RVR 170s. Got Dig 0.25 iv. NPO. Converted to SR 2. Septic and hemorrhagic shock . Levophed DCed today Echo EF 55% 3. Acute right leg DVT and Bilateral UE DVT. S/P IVC filter . Off Eliquis for severe anemia and GI bleed 4. Staph aureous bacteremia. Dr. Yee who recommended FLORINA pending consent and patient stability 5. Parkinsonism. 6. COPD. 7. UTI. 8. Severe anemia and rectal bleed. S/P Colonoscopy on 11/20/18 and 11/29/18 and transfusion No obvious source. Scheduled for EGD by Dr Dallas and Anterior duodenostomy for control of large posterior duodenal ulcer hemorrhage by Dr Eugene on 12/02/18 9. Seizure disorder. 10. S/P PEG DW RN and Dr Dallas Subjective Subjective In ICU intubated on the vent s/p Exploratory laparotomy and anterior duodenostomy for control of large posterior duodenal ulcer hemorrhage. Developed atrial fib with RVR 170s. Got 0.5 iv digoxin. Converted to SR overnight. Objective Last 24 Hour Vital Signs Date Time Temp Pulse Resp B/P (MAP) Pulse Ox O2 Delivery O2 Flow Rate FiO2 12/04/18 16:00 30 12/04/18 14:30 96 18 30 12/04/18 14:00 95 14 124/78 (93) 100 12/04/18 13:08 30 12/04/18 13:05 102 23 30 12/04/18 13:00 102 17 109/69 (82) 100 12/04/18 12:00 99.3 106 15 110/60 (77) 100 12/04/18 12:00 30 12/04/18 12:00 102 12/04/18 12:00 Mechanical Ventilator Mechanical Ventilator Mechanical Ventilator 12/04/18 11:00 99 12 118/75 (89) 100 12/04/18 10:52 102 12 30 12/04/18 10:00 106 12 115/66 (82) 100 12/04/18 09:48 108 13 30 30 12/04/18 09:48 30 12/04/18 09:48 100 12/04/18 09:25 120 18 30 12/04/18 09:00 111 17 113/52 (72) 100 12/04/18 08:00 Mechanical Ventilator Mechanical Ventilator Mechanical Ventilator 12/04/18 08:00 98.8 115 17 130/106 (114) 100 12/04/18 08:00 30 12/04/18 08:00 117 12/04/18 07:08 121 15 30 12/04/18 07:00 113 16 106/71 (83) 100 12/04/18 06:00 125 16 106/64 (78) 100 12/04/18 05:03 132 26 30 12/04/18 05:00 98.2 125 17 112/65 (81) 100 12/04/18 04:00 Mechanical Ventilator 12/04/18 04:00 105 12/04/18 04:00 30 12/04/18 04:00 98.4 105 17 96/56 (69) 100 12/04/18 03:07 115 21 30 12/04/18 03:00 98.4 138 17 112/61 (78) 100 12/04/18 02:00 98.4 120 17 108/50 (69) 100 12/04/18 01:00 98.6 115 16 110/64 (79) 100 12/04/18 00:57 117 16 30 12/04/18 00:00 Mechanical Ventilator 12/04/18 00:00 123 12/04/18 00:00 30 12/04/18 00:00 98.6 123 16 105/54 (71) 100 12/03/18 23:00 98.6 118 16 102/65 (77) 100 12/03/18 22:55 133 22 30 12/03/18 22:00 98.3 120 16 112/68 (83) 99 12/03/18 21:07 117 12 30 12/03/18 21:00 98.3 111 16 116/65 (82) 99 12/03/18 21:00 116/65 12/03/18 20:45 108/62 12/03/18 20:30 115/69 12/03/18 20:15 117/61 12/03/18 20:00 30 12/03/18 20:00 111 12/03/18 20:00 98.3 111 15 124/61 (82) 99 12/03/18 20:00 124/61 12/03/18 20:00 Mechanical Ventilator 12/03/18 19:15 114 13 30 12/03/18 18:09 112/59 12/03/18 18:00 117/53 12/03/18 18:00 112 14 112/59 (76) 100 12/03/18 17:30 96 15 117/63 (81) 100 12/03/18 17:09 134 13 30 12/03/18 17:00 113 15 119/59 (79) 100 12/03/18 17:00 119/59 Intake and Output 12/03/18 12/04/18 19:00 07:00 Intake Total 1321.208 ml 1290.00 ml Output Total 1205 ml 835 ml Balance 116.208 ml 455.00 ml Free Water 180 ml IV Total 1141.208 ml 1290.00 ml Output Urine Total 680 ml 545 ml Gastric Drainage Total 475 ml 200 ml Drainage Total 50 ml 90 ml # Bowel Movements 2 Laboratory Tests Test 12/04/18 04:57 12/04/18 09:27 White Blood Count 13.5 K/UL (4.8-10.8) H Red Blood Count 2.92 M/UL (4.70-6.10) L Hemoglobin 9.0 G/DL (14.2-18.0) L Hematocrit 27.4 % (42.0-52.0) L Mean Corpuscular Volume 94 FL (80-99) Mean Corpuscular Hemoglobin 31.0 PG (27.0-31.0) Mean Corpuscular Hemoglobin Concent 33.0 G/DL (32.0-36.0) Red Cell Distribution Width 16.9 % (11.6-14.8) H Platelet Count 136 K/UL (150-450) L Mean Platelet Volume 6.6 FL (6.5-10.1) Neutrophils (%) (Auto) % (45.0-75.0) Lymphocytes (%) (Auto) % (20.0-45.0) Monocytes (%) (Auto) % (1.0-10.0) Eosinophils (%) (Auto) % (0.0-3.0) Basophils (%) (Auto) % (0.0-2.0) Sodium Level 144 MMOL/L (136-145) Potassium Level 3.0 MMOL/L (3.5-5.1) L Chloride Level 114 MMOL/L (98-107) H Carbon Dioxide Level 22 MMOL/L (21-32) Anion Gap 8 mmol/L (5-15) Blood Urea Nitrogen 15 mg/dL (7-18) Creatinine 0.5 MG/DL (0.55-1.30) L Estimat Glomerular Filtration Rate mL/min (>60) Glucose Level 130 MG/DL (74-106) H Lactic Acid Level 1.90 mmol/L (0.4-2.0) Uric Acid 5.0 MG/DL (2.6-7.2) Calcium Level 7.8 MG/DL (8.5-10.1) L Phosphorus Level 2.1 MG/DL (2.5-4.9) L Magnesium Level 1.8 MG/DL (1.8-2.4) Total Bilirubin 0.8 MG/DL (0.2-1.0) Aspartate Amino Transf (AST/SGOT) 18 U/L (15-37) Alanine Aminotransferase (ALT/SGPT) 15 U/L (12-78) Alkaline Phosphatase 41 U/L (46-116) L Troponin I 0.178 ng/mL (0.000-0.056) C-Reactive Protein, Quantitative 15.1 mg/dL (0.00-0.90) H Pro-B-Type Natriuretic Peptide 5268 pg/mL (0-125) H Total Protein 3.9 G/DL (6.4-8.2) L Albumin 1.9 G/DL (3.4-5.0) L Globulin 2.0 g/dL Albumin/Globulin Ratio 0.9 (1.0-2.7) L Digoxin Level 0.9 NG/ML (0.5-2.0) Arterial Blood pH 7.430 (7.350-7.450) Arterial Blood Partial Pressure CO2 29.9 mmHg (35.0-45.0) L Arterial Blood Partial Pressure O2 102.6 mmHg (75.0-100.0) H Arterial Blood HCO3 19.4 mmol/L (22.0-26.0) L Arterial Blood Oxygen Saturation 97.0 % (95-100) Arterial Blood Base Excess -4.2 (-2-2) L Blake Test Positive Microbiology Date/Time Source Procedure Growth Status 12/03/18 09:10 Sputum Gram Stain - Final Resulted 12/03/18 09:10 Sputum Culture - Preliminary Gram Negative Bacillus 1 Usual Upper Respiratory Navya Resulted 12/03/18 15:30 Urine,Clean Catch Urine Culture - Preliminary NO GROWTH Resulted Objective HEAD AND NECK: No JVD.Orally intubated LUNGS: Decreased breath sounds. CARDIOVASCULAR: Regular S1 and S2 with no gallop . ABDOMEN: Soft. G-tube intact. S/P Laparatomy with drain EXTREMITIES: Upper extremity and LE edema. Earl Washington MD Dec 04, 2018 16:43
--- NOTE | 2018-12-04 16:46 | NUR ---
NURSE NOTES: Dr. Washington assess patient at the bedside and reviewed chart. rhythm strip is sinus rhythm with PAC with rate of 93-107 and BP remaining above systolic of 100. notified of troponin 0.178 and no order given, added hydralazine 10mg IVP Q2hrs for systolic BP above 170.
--- NOTE | 2018-12-04 16:48 | Infectious Diseases Prog Note ---
Assessment/Plan Assessment/Plan Assessment: GIB- 2ry to actively bleeding Duodenal ulcer -12/02 SP exploratory laparotomy. Anterior duodenotomy for control of large posterior duodenal ulcer hemorrhage. closure of duodenotomy. pyloric exclusion with gastrojejunostomy abdominal washout. abdominal drain placement -12/02 SP EGD Shock likely hemorrhagic and septic component- now off presors -12/04 CXR: Suggestion of a slightly worsening vascular congestion -12/03 u/a neg, ucx NTD -12/02 CXR: Slightly increased bilateral infiltrates Diarrhea CDiff + GI bleed 11/29 Colonscopy : Diverticulosis Sepsis -11/30 CT abd/p: Nonspecific trace free intraperitoneal fluid. No acute abdominal or pelvic process otherwise. Fairly extensive bilateral basilar pulmonary parenchymal consolidation and atelectasis. Bilateral small pleural effusions. Colonic diverticulosis. No evidence of diverticulitis. Gastrostomy. Nonobstructive 3 mm left intrarenal calyceal calculus. Prostatomegaly. Edema of the bilateral left greater than right subcutaneous fat. Fairly extensive chronic appearing bilateral hip degenerative changes, with bilateral joint effusions versus chronic synovial proliferation. Inferior vena cava filter -11/28 BCx Neg u/a no pyuria ucx Neg Pneumonia -CXR: Patchy bilateral infiltrates versus mixed interstitial alveolar edema noted. -sp cx MRSA, MDR P. stuarti (S Amikacin, Zosyn ; I cefepime; S ertapenem) Afebrile Leukocytosis; improving MRSA bacteremia- suspect 2ry to PNA- r/o endocarditis -11/18 Bcx 2/4 MRSA , 1/4 S. 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 resident Plan: - Resume IV Flagyl #1 (abx d #11/07) for Cdiff given NPO status -Continue empiric IV Vancomycin #17/-28 for MRSA bacteremia and PNA -low threshold to start Zosyn if febrile, rising WBC and.or vent requirements/increase secretions -FLORINA pending -12/03 SP PO Vancomycin #5 (held as pt now is NPO) -12/02 SP Flagyl #4 -11/29 SP Zosyn #8 -11/27 SP Bactrim #7 -11/23 SP Cefepime #6 -11/18 SP Levaquin x1 -f/u cx -Monitor CBC/CMP, temperatures -GT care -aspiration precautions -wound care per surgical team -Recommend FLORINA -f/u ucx, Bcx x2, sp cx -ETT/ICU care -GI, Gen Sx f/u Subjective Allergies: Coded Allergies: No Known Allergies (Unverified , 11/18/18) Subjective afebrile Leukocytosis improving Bcx Neg off pressors Objective Vital Signs Last 24 Hour Vital Signs Date Time Temp Pulse Resp B/P (MAP) Pulse Ox O2 Delivery O2 Flow Rate FiO2 12/04/18 16:00 30 12/04/18 14:30 96 18 30 12/04/18 14:00 95 14 124/78 (93) 100 12/04/18 13:08 30 12/04/18 13:05 102 23 30 12/04/18 13:00 102 17 109/69 (82) 100 12/04/18 12:00 99.3 106 15 110/60 (77) 100 12/04/18 12:00 30 12/04/18 12:00 102 12/04/18 12:00 Mechanical Ventilator Mechanical Ventilator Mechanical Ventilator 12/04/18 11:00 99 12 118/75 (89) 100 12/04/18 10:52 102 12 30 12/04/18 10:00 106 12 115/66 (82) 100 12/04/18 09:48 108 13 30 30 12/04/18 09:48 30 12/04/18 09:48 100 12/04/18 09:25 120 18 30 12/04/18 09:00 111 17 113/52 (72) 100 12/04/18 08:00 Mechanical Ventilator Mechanical Ventilator Mechanical Ventilator 12/04/18 08:00 98.8 115 17 130/106 (114) 100 12/04/18 08:00 30 12/04/18 08:00 117 12/04/18 07:08 121 15 30 12/04/18 07:00 113 16 106/71 (83) 100 12/04/18 06:00 125 16 106/64 (78) 100 12/04/18 05:03 132 26 30 12/04/18 05:00 98.2 125 17 112/65 (81) 100 12/04/18 04:00 Mechanical Ventilator 12/04/18 04:00 105 12/04/18 04:00 30 12/04/18 04:00 98.4 105 17 96/56 (69) 100 12/04/18 03:07 115 21 30 12/04/18 03:00 98.4 138 17 112/61 (78) 100 12/04/18 02:00 98.4 120 17 108/50 (69) 100 12/04/18 01:00 98.6 115 16 110/64 (79) 100 12/04/18 00:57 117 16 30 12/04/18 00:00 Mechanical Ventilator 12/04/18 00:00 123 12/04/18 00:00 30 12/04/18 00:00 98.6 123 16 105/54 (71) 100 12/03/18 23:00 98.6 118 16 102/65 (77) 100 12/03/18 22:55 133 22 30 12/03/18 22:00 98.3 120 16 112/68 (83) 99 12/03/18 21:07 117 12 30 12/03/18 21:00 98.3 111 16 116/65 (82) 99 12/03/18 21:00 116/65 12/03/18 20:45 108/62 12/03/18 20:30 115/69 12/03/18 20:15 117/61 12/03/18 20:00 30 12/03/18 20:00 111 12/03/18 20:00 98.3 111 15 124/61 (82) 99 12/03/18 20:00 124/61 12/03/18 20:00 Mechanical Ventilator 12/03/18 19:15 114 13 30 12/03/18 18:09 112/59 12/03/18 18:00 117/53 12/03/18 18:00 112 14 112/59 (76) 100 12/03/18 17:30 96 15 117/63 (81) 100 12/03/18 17:09 134 13 30 12/03/18 17:00 113 15 119/59 (79) 100 12/03/18 17:00 119/59 Height (Feet): 5 Height (Inches): 5.00 Weight (Pounds): 130 Objective General Appearance: WD/WN, no apparent distress Lines, tubes and drains: central line HEENT: normocephalic, atraumatic Neck: non-tender, normal alignment Cardiovascular/Chest: normal peripheral pulses, normal rate, regular rhythm Abdomen: normal bowel sounds, non tender Extremities: normal range of motion Skin Exam: normal pigmentation Neurologic: gallery assistant II-XII grossly normal Microbiology Date/Time Source Procedure Growth Status 12/03/18 09:10 Sputum Gram Stain - Final Resulted 12/03/18 09:10 Sputum Culture - Preliminary Gram Negative Bacillus 1 Usual Upper Respiratory Navya Resulted 12/03/18 15:30 Urine,Clean Catch Urine Culture - Preliminary NO GROWTH Resulted Laboratory Tests Test 12/04/18 04:57 12/04/18 09:27 White Blood Count 13.5 K/UL (4.8-10.8) H Red Blood Count 2.92 M/UL (4.70-6.10) L Hemoglobin 9.0 G/DL (14.2-18.0) L Hematocrit 27.4 % (42.0-52.0) L Mean Corpuscular Volume 94 FL (80-99) Mean Corpuscular Hemoglobin 31.0 PG (27.0-31.0) Mean Corpuscular Hemoglobin Concent 33.0 G/DL (32.0-36.0) Red Cell Distribution Width 16.9 % (11.6-14.8) H Platelet Count 136 K/UL (150-450) L Mean Platelet Volume 6.6 FL (6.5-10.1) Neutrophils (%) (Auto) % (45.0-75.0) Lymphocytes (%) (Auto) % (20.0-45.0) Monocytes (%) (Auto) % (1.0-10.0) Eosinophils (%) (Auto) % (0.0-3.0) Basophils (%) (Auto) % (0.0-2.0) Sodium Level 144 MMOL/L (136-145) Potassium Level 3.0 MMOL/L (3.5-5.1) L Chloride Level 114 MMOL/L (98-107) H Carbon Dioxide Level 22 MMOL/L (21-32) Anion Gap 8 mmol/L (5-15) Blood Urea Nitrogen 15 mg/dL (7-18) Creatinine 0.5 MG/DL (0.55-1.30) L Estimat Glomerular Filtration Rate mL/min (>60) Glucose Level 130 MG/DL (74-106) H Lactic Acid Level 1.90 mmol/L (0.4-2.0) Uric Acid 5.0 MG/DL (2.6-7.2) Calcium Level 7.8 MG/DL (8.5-10.1) L Phosphorus Level 2.1 MG/DL (2.5-4.9) L Magnesium Level 1.8 MG/DL (1.8-2.4) Total Bilirubin 0.8 MG/DL (0.2-1.0) Aspartate Amino Transf (AST/SGOT) 18 U/L (15-37) Alanine Aminotransferase (ALT/SGPT) 15 U/L (12-78) Alkaline Phosphatase 41 U/L (46-116) L Troponin I 0.178 ng/mL (0.000-0.056) C-Reactive Protein, Quantitative 15.1 mg/dL (0.00-0.90) H Pro-B-Type Natriuretic Peptide 5268 pg/mL (0-125) H Total Protein 3.9 G/DL (6.4-8.2) L Albumin 1.9 G/DL (3.4-5.0) L Globulin 2.0 g/dL Albumin/Globulin Ratio 0.9 (1.0-2.7) L Digoxin Level 0.9 NG/ML (0.5-2.0) Arterial Blood pH 7.430 (7.350-7.450) Arterial Blood Partial Pressure CO2 29.9 mmHg (35.0-45.0) L Arterial Blood Partial Pressure O2 102.6 mmHg (75.0-100.0) H Arterial Blood HCO3 19.4 mmol/L (22.0-26.0) L Arterial Blood Oxygen Saturation 97.0 % (95-100) Arterial Blood Base Excess -4.2 (-2-2) L Blake Test Positive Current Medications Medications (Trade) Dose Ordered Sig/Pauline Route PRN Reason Start Time Stop Time Status Last Admin Dose Admin Acetaminophen (Tylenol) 650 mg Q4H PRN GT T>100.5 11/27/18 18:18 12/22/18 18:17 12/03/18 13:02 Carbidopa/Levodopa (Sinemet 25/100) 1 tab THREE TIMES A DAY GT 11/27/18 18:00 12/27/18 17:59 12/03/18 17:00 Chlorhexidine Gluconate (Marycarmen-Hex 2%) 1 applic DAILY@2000 TOPIC 11/30/18 20:00 12/30/18 19:59 12/03/18 20:13 Clonidine HCl (Catapres Tab) 0.1 mg Q4H PRN GT sbp>170mmHg 11/27/18 18:18 12/22/18 18:17 Dextrose 1,000 ml @ 75 mls/hr [id number] IV 12/02/18 09:00 01/01/19 08:59 12/04/18 15:38 Dextrose (Dextrose 50%) 25 ml Q30M PRN IV Hypoglycemia 11/27/18 18:18 12/18/18 18:17 Dextrose (Dextrose 50%) 50 ml Q30M PRN IV Hypoglycemia 11/27/18 18:18 12/18/18 18:17 Hydrocortisone (Proctosol-HC Cream) 1 applic Q12HR TOPIC 12/02/18 13:00 01/01/19 12:59 12/04/18 09:08 Lactobacillus Acidophilus (Culturelle) 1 tab THREE TIMES A DAY ORAL 11/29/18 18:00 12/29/18 17:59 12/03/18 17:00 Metronidazole 100 ml @ 100 mls/hr Q8HR IVPB 12/04/18 14:00 12/11/18 13:59 12/04/18 15:38 Midazolam HCl (Versed 2mg/2ml vial) 1 mg Q1H PRN IVP SEDATION 12/02/18 20:30 01/01/19 20:29 Morphine Sulfate (Morphine Sulfate) 2 mg Q1H PRN IVP For Pain scale 4-7 12/02/18 20:23 12/09/18 20:22 12/04/18 05:31 Norepinephrine Bitartrate 8 mg/ Sodium Chloride 250 ml @ 0 mls/hr Q24H IV 12/03/18 18:03 01/02/19 18:02 12/03/18 18:09 Pantoprazole 80 mg/Sodium Chloride 250 ml @ 25 mls/hr Q10H IV 11/30/18 17:00 12/30/18 16:59 12/04/18 13:27 Sodium Hypochlorite (Dakin's Quarter Strength) 1 applic DAILY TOPIC 12/04/18 12:00 01/03/19 11:59 12/04/18 15:26 Vancomycin HCl (Vanco rx to dose) 1 ea DAILY PRN MISC Per rx protocol 11/27/18 18:18 12/27/18 18:17 Vancomycin HCl 500 mg/Dextrose 110 ml @ 110 mls/hr Q24H IVPB 12/04/18 09:00 12/16/18 23:59 12/04/18 09:08 Neva Yee M.D. Dec 04, 2018 16:48
[2018-12-04] MEDS ORDERED: Tubing IV Secondary IV ONE (17:03)
--- NOTE | 2018-12-04 17:13 | NUR ---
CASE MANAGEMENT:REVIEW 12/04/2018 SI: SEPSIS. PNEUMONIA. ANEMIA~ S/P 4 UNIT SINCE 11/28/2018 T 99.3 HR 106 RR 15 B/P 110/60 SATS 100% ON MECH VENT FiO2 30 WBC 13.5 K 3 CL 114 CR 0.5 GLU 130 CA 7.8 PHOS 2.1 ALP 41 TROPONIN 0.178 BNP 5268 ABGS PCO2 29.9 PO2 102.6 HCO3 19.4 BE -4.2 IS: BACTRIM PO Q12 VANCO PO Q12H IV CEFEPIME BID PROTONIX IV 25 mL/HR IVF @ 75 mL/HR KCL IV Q2H FLAGYL IV Q6H : ICU STATUS
--- NOTE | 2018-12-04 17:59 | NUR ---
NURSE NOTES: Dr. Eugene notified moderate bowel movement with dark-red blood, no verbal orders given at this time as patient will have blood in the intestinal tract,
--- NOTE | 2018-12-04 18:30 | NUR ---
NURSE NOTES: ANGIE drain noted to have yellow serosanguineous drain with 20ml in 12hrs, dark green drainage noted from g-tube placed to gravity with 150ml for 12hrs. patient remains awake able to follow simple commands, remains on ventilator settings at AC10, TV: 600 and FIo2 of 30%. will continue to monitor.
--- NOTE | 2018-12-04 19:26 | NUR ---
HAND-OFF: Report given to MONA Denson.
--- NOTE | 2018-12-04 19:27 | NUR ---
NURSE NOTES: Endorsement received from MONA Holloway. Patient opens eyes spontaneously, tracks, follows simple commands. Orally intubated with ET 7.5, 25 lipline. AC 10, 600, 30%. Right subclavian TLC. On D5W 75ml/hr, Protonix drip. GT draining per gravity to drainable bag, noted with greenish output. Right abdomen ANGIE drain, kept on negative pressure. Abdominal dressing dry and intact. Bradley catheter to urimeter. On P200 mattress. Seizure precautions. Head of bed elevated. Bed locked and in low position. Bed alarm on. Call light within reach.
[2018-12-04] MEDS: Dyna-Hex 2% Top Sol 2oz TOPIC SCH (20:32)
--- NOTE | 2018-12-04 22:00 | NUR ---
NURSE NOTES: Repositioned patient. secretions suctioned. Noted with scant secretion from ETT.
--- NOTE | 2018-12-04 23:13 | General Progress Note ---
Assessment/Plan Problem List: (1) Hyponatremia ICD Codes: E87.1 - Hypo-osmolality and hyponatremia SNOMED: 20416527 (2) Acute DVT (deep venous thrombosis) ICD Codes: I82.409 - Acute embolism and thrombosis of unspecified deep veins of unspecified lower extremity SNOMED: 152074907704012 (3) Decubitus skin ulcer ICD Codes: L89.90 - Pressure ulcer of unspecified site, unspecified stage SNOMED: 323946249 (4) Severe protein-calorie malnutrition ICD Codes: E43 - Unspecified severe protein-calorie malnutrition SNOMED: 826079134, 903498506, 228764757 (5) C. difficile colitis ICD Codes: A04.72 - Enterocolitis due to Clostridium difficile, not specified as recurrent SNOMED: 111266720 (6) Lower GI bleed ICD Codes: K92.2 - Gastrointestinal hemorrhage, unspecified SNOMED: 17721393 (7) UTI (urinary tract infection) ICD Codes: N39.0 - Urinary tract infection, site not specified SNOMED: 67415595, 112545393 Qualifiers: Qualified Codes: N30.00 - Acute cystitis without hematuria (8) HCAP (healthcare-associated pneumonia) ICD Codes: J18.9 - Pneumonia, unspecified organism SNOMED: 421148192, 924036558 (9) Anemia, chronic disease ICD Codes: D63.8 - Anemia in other chronic diseases classified elsewhere SNOMED: 684729693, 169362884 (10) Sepsis ICD Codes: A41.9 - Sepsis, unspecified organism SNOMED: 65553572, 145887796 Qualifiers: Qualified Codes: A41.9 - Sepsis, unspecified organism (11) COPD (chronic obstructive pulmonary disease) ICD Codes: J44.9 - Chronic obstructive pulmonary disease, unspecified SNOMED: 35931158 (12) Parkinson disease ICD Codes: G20 - Parkinson's disease SNOMED: 53879866 (13) Seizures ICD Codes: R56.9 - Unspecified convulsions SNOMED: 62838744 Status: progressing, unchanged Assessment/Plan: dvt sepsis and pna lyte abnormlaity anemia gi bleed cpod no wheezing resp insuff abx per id reviewed chart and labs and meds Subjective ROS Limited/Unobtainable: Yes Allergies: Coded Allergies: No Known Allergies (Unverified , 11/18/18) Objective Last 24 Hour Vital Signs Date Time Temp Pulse Resp B/P (MAP) Pulse Ox O2 Delivery O2 Flow Rate FiO2 12/04/18 20:52 111 17 30 12/04/18 20:00 30 12/04/18 20:00 Mechanical Ventilator Mechanical Ventilator Mechanical Ventilator 12/04/18 19:12 112 19 30 12/04/18 19:00 108 13 109/60 (76) 100 12/04/18 18:03 117/67 12/04/18 18:00 124 18 117/67 (84) 100 12/04/18 17:00 107 16 124/66 (85) 100 12/04/18 16:45 114 15 30 12/04/18 16:00 98.6 103 16 111/61 (78) 100 12/04/18 16:00 30 12/04/18 16:00 97 12/04/18 15:45 114 15 30 12/04/18 15:00 105 16 118/80 (93) 100 12/04/18 14:30 96 18 30 12/04/18 14:00 95 14 124/78 (93) 100 12/04/18 13:08 30 12/04/18 13:05 102 23 30 12/04/18 13:00 102 17 109/69 (82) 100 12/04/18 12:00 99.3 106 15 110/60 (77) 100 12/04/18 12:00 30 12/04/18 12:00 102 12/04/18 12:00 Mechanical Ventilator Mechanical Ventilator Mechanical Ventilator 12/04/18 11:00 99 12 118/75 (89) 100 12/04/18 10:52 102 12 30 12/04/18 10:00 106 12 115/66 (82) 100 12/04/18 09:48 108 13 30 30 12/04/18 09:48 30 12/04/18 09:48 100 12/04/18 09:25 120 18 30 12/04/18 09:00 111 17 113/52 (72) 100 12/04/18 08:00 Mechanical Ventilator Mechanical Ventilator Mechanical Ventilator 12/04/18 08:00 98.8 115 17 130/106 (114) 100 12/04/18 08:00 30 12/04/18 08:00 117 12/04/18 07:08 121 15 30 12/04/18 07:00 113 16 106/71 (83) 100 12/04/18 06:00 125 16 106/64 (78) 100 12/04/18 05:03 132 26 30 12/04/18 05:00 98.2 125 17 112/65 (81) 100 12/04/18 04:00 Mechanical Ventilator 12/04/18 04:00 105 12/04/18 04:00 30 12/04/18 04:00 98.4 105 17 96/56 (69) 100 12/04/18 03:07 115 21 30 12/04/18 03:00 98.4 138 17 112/61 (78) 100 12/04/18 02:00 98.4 120 17 108/50 (69) 100 12/04/18 01:00 98.6 115 16 110/64 (79) 100 12/04/18 00:57 117 16 30 12/04/18 00:00 Mechanical Ventilator 12/04/18 00:00 123 12/04/18 00:00 30 12/04/18 00:00 98.6 123 16 105/54 (71) 100 Intake and Output 12/03/18 12/04/18 19:00 07:00 Intake Total 1321.208 ml 1290.00 ml Output Total 1205 ml 835 ml Balance 116.208 ml 455.00 ml Free Water 180 ml IV Total 1141.208 ml 1290.00 ml Output Urine Total 680 ml 545 ml Gastric Drainage Total 475 ml 200 ml Drainage Total 50 ml 90 ml # Bowel Movements 2 Laboratory Tests 12/04/18 04:57: White Blood Count 13.5H, Red Blood Count 2.92L, Hemoglobin 9.0L, Hematocrit 27.4L, Mean Corpuscular Volume 94, Mean Corpuscular Hemoglobin 31.0, Mean Corpuscular Hemoglobin Concent 33.0, Red Cell Distribution Width 16.9H, Platelet Count 136L, Mean Platelet Volume 6.6, Neutrophils (%) (Auto) , Lymphocytes (%) (Auto) , Monocytes (%) (Auto) , Eosinophils (%) (Auto) , Basophils (%) (Auto) , Sodium Level 144, Potassium Level 3.0L, Chloride Level 114H, Carbon Dioxide Level 22, Anion Gap 8, Blood Urea Nitrogen 15, Creatinine 0.5L, Estimat Glomerular Filtration Rate , Glucose Level 130H, Lactic Acid Level 1.90, Uric Acid 5.0, Calcium Level 7.8L, Phosphorus Level 2.1L, Magnesium Level 1.8, Total Bilirubin 0.8, Aspartate Amino Transf (AST/SGOT) 18, Alanine Aminotransferase (ALT/SGPT) 15, Alkaline Phosphatase 41L, Troponin I 0.178H, C- Reactive Protein, Quantitative 15.1H, Pro-B-Type Natriuretic Peptide 5268H, Total Protein 3.9L, Albumin 1.9L, Globulin 2.0, Albumin/Globulin Ratio 0.9L, Digoxin Level 0.9 12/04/18 09:27: Arterial Blood pH 7.430, Arterial Blood Partial Pressure CO2 29.9L, Arterial Blood Partial Pressure O2 102.6H, Arterial Blood HCO3 19.4L, Arterial Blood Oxygen Saturation 97.0, Arterial Blood Base Excess -4.2L, Blake Test Positive Height (Feet): 5 Height (Inches): 5.00 Weight (Pounds): 130 Cardiovascular: normal peripheral pulses Respiratory/Chest: lungs clear Abdomen: soft Yohana Garay MD Dec 04, 2018 23:13
[2018-12-05] VITALS (24 sets, daily range): BP systolic 99–139; BP diastolic 60–100
--- NOTE | 2018-12-05 | NUR ---
NURSE NOTES: Patient asleep. Sinus tach with PACs on the monitor. No SOB. No bleeding noted.ANGIE drain kept at negative pressures, serosanguineous output noted. GT connected to drainable bag, per gravity. HOB kept elevated. On seizure precautions, no seizure activity. Will continue to monitor.
--- NOTE | 2018-12-05 02:00 | NUR ---
NURSE NOTES: Repositioned patient. Afebrile. Still with bilateral upper and lower extremities edema, kept elevated.
--- NOTE | 2018-12-05 04:00 | NUR ---
NURSE NOTES: Patient passed soft dark red/maroon to black stool. Bed bath, change of dressings, linen and oral care done.
--- NOTE | 2018-12-05 04:30 | NUR ---
NURSE NOTES: Patient heart rate between 120s-140s. 12 lead ECG done, ECG shows sinus tach with PACs.
[2018-12-05 05:37] LABS: BASOPHILS % (AUTO) 0.2 % (0.0-2.0); EOSINOPHILS % (AUTO) 1.3 % (0.0-3.0); HEMATOCRIT 28.2 % (42.0-52.0); HEMOGLOBIN 9.5 G/DL (14.2-18.0); LYMPHOCYTES % (AUTO) 8.6 % (20.0-45.0); MEAN CORPUSCULAR VOLUME 92 FL (80-99); MONOCYTES % (AUTO) 5.4 % (1.0-10.0); NEUTROPHILS % (AUTO) 84.6 % (45.0-75.0); PLATELET COUNT 148 K/UL (150-450); RED BLOOD COUNT 3.05 M/UL (4.70-6.10); RED CELL DISTRIBUTION WIDTH 16.7 % (11.6-14.8); WHITE BLOOD COUNT 10.8 K/UL (4.8-10.8)
[2018-12-05 05:58] LABS: ALANINE AMINOTRANSFERASE 15 U/L (12-78); ALBUMIN 1.6 G/DL (3.4-5.0); ALBUMIN/GLOBULIN RATIO 0.7 (1.0-2.7); ALKALINE PHOSPHATASE 51 U/L (46-116); ANION GAP 7 mmol/L (5-15); ASPARTATE AMINO TRANSFERASE 10 U/L (15-37); BLOOD UREA NITROGEN 13 mg/dL (7-18); CALCIUM 7.7 MG/DL (8.5-10.1); CARBON DIOXIDE 23 MMOL/L (21-32); CHLORIDE 112 MMOL/L (98-107); CREATININE 0.5 MG/DL (0.55-1.30); PHOSPHORUS 2.9 MG/DL (2.5-4.9); POTASSIUM 3.2 MMOL/L (3.5-5.1); SODIUM 142 MMOL/L (136-145)
--- NOTE | 2018-12-05 06:18 | NUR ---
NURSE NOTES: Patient with eyes closed. No shortness of breath. ANGIE drain output: 7ml of serosanguineous fluid. Gastric drainage from GTube: 50ml of greenish fluid
[2018-12-05] MEDS: Pantoprazole 80 MG in NS 250 ML IV SCH ×2 (06:25→16:13)
--- NOTE | 2018-12-05 07:19 | NUR ---
HAND-OFF: Report given to Leslye Hernandez RN.
--- NOTE | 2018-12-05 07:20 | NUR ---
NURSE NOTES: Report received from MONA Cohen. Pt is awake in bed. Opens eyes and eyes able to follow with movement. Oriented to name. Sinus tachy with PACs on geological engineer with R 110's. ETT 7.5/25cm at lip line. AC 10, TV 600, FiO2 30%. O2 sat 100%. No respiratory distress noted. G-tube in place draining small amount of greenish to gravity. Kept NPO as per order. Abdominal dressing dry and intact. ANGIE from right abdomen intact draining serosang liquid. Right subclavian TLC patent and asymptomatic. Protonix is running at 25cc/hr and D5W at 75cc/hr. Bed in lowest position. Side rails up x3. Will resume plan of care.
--- NOTE | 2018-12-05 07:47 | NUR ---
RESPIRATORY NOTE: received pt orally intubated with ET 7.5, placed 25 cm at the lip. ETT secured via anchor fast. no redness or breakdown, slight crack on the corner of the lips. no resp distres noted. will attemp to wean later this morning. alarms are set and audible. ambu bag at bedside. will cont to monitor.
--- NOTE | 2018-12-05 07:51 | NUR ---
RADIOLOGY DEPT, CHEST X-RAY DONE.-P.DYE
--- NOTE | 2018-12-05 08:22 | General Progress Note ---
Assessment/Plan Problem List: (1) Seizures ICD Codes: R56.9 - Unspecified convulsions SNOMED: 98693863 (2) Parkinson disease ICD Codes: G20 - Parkinson's disease SNOMED: 99600754 (3) Alzheimer's dementia ICD Codes: G30.9 - Alzheimer's disease, unspecified; F02.80 - Dementia in other diseases classified elsewhere without behavioral disturbance SNOMED: 17717443 (4) COPD (chronic obstructive pulmonary disease) ICD Codes: J44.9 - Chronic obstructive pulmonary disease, unspecified SNOMED: 68059031 (5) Feeding by G-tube ICD Codes: Z93.1 - Gastrostomy status SNOMED: 672159487, 230239747, 643425538 (6) Anemia, chronic disease ICD Codes: D63.8 - Anemia in other chronic diseases classified elsewhere SNOMED: 212801224, 962308831 Status: progressing, unchanged Assessment/Plan: Duodenal ulcer s/p SURG POD #3 npo iv ppi stable H&H will fu may need TPN if prolonged NPO status anticipated Subjective ROS Limited/Unobtainable: No Allergies: Coded Allergies: No Known Allergies (Unverified , 11/18/18) Objective Last 24 Hour Vital Signs Date Time Temp Pulse Resp B/P (MAP) Pulse Ox O2 Delivery O2 Flow Rate FiO2 12/05/18 08:00 30 12/05/18 08:00 99.1 123 21 132/76 (94) 100 12/05/18 07:45 115 15 30 12/05/18 07:00 121 16 121/65 (83) 100 12/05/18 06:00 117 16 127/69 (88) 100 12/05/18 05:00 116 18 113/69 (84) 100 12/05/18 04:56 107 18 30 12/05/18 04:00 30 12/05/18 04:00 Mechanical Ventilator Mechanical Ventilator Mechanical Ventilator 12/05/18 04:00 99.1 127 23 110/65 (80) 97 12/05/18 04:00 140 12/05/18 03:00 114 17 106/60 (75) 98 12/05/18 02:36 112 16 30 12/05/18 02:00 120 19 115/67 (83) 100 12/05/18 01:07 115 22 30 12/05/18 01:00 123 17 117/61 (79) 100 12/05/18 00:00 99.0 111 16 112/67 (82) 100 12/05/18 00:00 Mechanical Ventilator Mechanical Ventilator Mechanical Ventilator 12/04/18 23:41 124 12/04/18 23:22 113 17 100 Mechanical Ventilator 30 12/04/18 23:20 113 17 30 12/04/18 23:00 118 18 114/73 (87) 100 12/04/18 22:00 111 14 117/55 (75) 100 12/04/18 21:00 114 16 101/53 (69) 100 12/04/18 20:52 111 17 30 12/04/18 20:00 109 12/04/18 20:00 115 18 109/69 (82) 100 12/04/18 20:00 30 12/04/18 20:00 Mechanical Ventilator Mechanical Ventilator Mechanical Ventilator 12/04/18 19:12 112 19 30 12/04/18 19:00 108 13 109/60 (76) 100 12/04/18 18:03 117/67 12/04/18 18:00 124 18 117/67 (84) 100 12/04/18 17:00 107 16 124/66 (85) 100 12/04/18 16:45 114 15 30 12/04/18 16:00 98.6 103 16 111/61 (78) 100 12/04/18 16:00 30 12/04/18 16:00 97 12/04/18 15:45 114 15 30 12/04/18 15:00 105 16 118/80 (93) 100 12/04/18 14:30 96 18 30 12/04/18 14:00 95 14 124/78 (93) 100 12/04/18 13:08 30 12/04/18 13:05 102 23 30 12/04/18 13:00 102 17 109/69 (82) 100 12/04/18 12:00 99.3 106 15 110/60 (77) 100 12/04/18 12:00 30 12/04/18 12:00 102 12/04/18 12:00 Mechanical Ventilator Mechanical Ventilator Mechanical Ventilator 12/04/18 11:00 99 12 118/75 (89) 100 12/04/18 10:52 102 12 30 12/04/18 10:00 106 12 115/66 (82) 100 12/04/18 09:48 108 13 30 30 12/04/18 09:48 30 12/04/18 09:48 100 12/04/18 09:25 120 18 30 12/04/18 09:00 111 17 113/52 (72) 100 Intake and Output 12/04/18 12/05/18 18:59 06:59 Intake Total 1685.0 ml 1300 ml Output Total 645 ml 377 ml Balance 1040.0 ml 923 ml IV Total 1635.0 ml 1300 ml Other 50 ml Output Urine Total 475 ml 320 ml Gastric Drainage Total 150 ml 50 ml Drainage Total 20 ml 7 ml # Bowel Movements 1 Laboratory Tests 12/04/18 09:27: Arterial Blood pH 7.430, Arterial Blood Partial Pressure CO2 29.9L, Arterial Blood Partial Pressure O2 102.6H, Arterial Blood HCO3 19.4L, Arterial Blood Oxygen Saturation 97.0, Arterial Blood Base Excess -4.2L, Blake Test Positive 12/05/18 04:50: White Blood Count 10.8, Red Blood Count 3.05L, Hemoglobin 9.5L, Hematocrit 28.2L , Mean Corpuscular Volume 92, Mean Corpuscular Hemoglobin 31.1H, Mean Corpuscular Hemoglobin Concent 33.7, Red Cell Distribution Width 16.7H, Platelet Count 148L, Mean Platelet Volume 6.3L, Neutrophils (%) (Auto) 84.6H, Lymphocytes (%) (Auto) 8.6L, Monocytes (%) (Auto) 5.4, Eosinophils (%) (Auto) 1.3, Basophils (%) (Auto) 0.2, Sodium Level 142, Potassium Level 3.2L, Chloride Level 112H, Carbon Dioxide Level 23, Anion Gap 7, Blood Urea Nitrogen 13, Creatinine 0.5L, Estimat Glomerular Filtration Rate , Glucose Level 114H, Uric Acid 5.2, Calcium Level 7.7L, Phosphorus Level 2.9, Magnesium Level 1.5L, Total Bilirubin 1.0, Aspartate Amino Transf (AST/SGOT) 10L, Alanine Aminotransferase ( ALT/SGPT) 15, Alkaline Phosphatase 51, C-Reactive Protein, Quantitative 16.3H, Pro-B-Type Natriuretic Peptide 2756H, Total Protein 3.9L, Albumin 1.6L, Globulin 2.3, Albumin/Globulin Ratio 0.7L Height (Feet): 5 Height (Inches): 5.00 Weight (Pounds): 132 General Appearance: lethargic EENT: normal ENT inspection Neck: supple Cardiovascular: normal rate Respiratory/Chest: decreased breath sounds Abdomen: normal bowel sounds, non tender, soft Extremities: non-tender Deacon Dallas MD Dec 05, 2018 08:22
[2018-12-05] MEDS: Levodopa/Carbidopa 25/100 tab GT SCH ×2 (08:26→12:12)
[2018-12-05] MEDS: Vancomycin 500mg/D5W 110ml IVPB SCH ×2 (08:26)
[2018-12-05] MEDS: Lactobacillus-GG tablet ORAL SCH ×3 (08:26→17:21)
[2018-12-05] MEDS: Hydrocortisone 2.5% Cream - 30gm TOPIC SCH ×2 (08:31→20:53)
[2018-12-05] MEDS: Dakin's 0.125% Soln (Quarter Strength) 16oz TOPIC SCH (08:31)
--- NOTE | 2018-12-05 09:33 | NUR ---
NURSE NOTES: Dr Giang here to see the patient. Updated him with pt's current condition. No new orders. Pt is sleeping in bed. HR 110's. Will continue to monitor.
--- NOTE | 2018-12-05 09:34 | NUR ---
RESPIRATORY NOTE: Placed pt on CPAP PS 8 at 0930. pt in no resp distress. reaching appropriate volumes. will notify RN.
--- NOTE | 2018-12-05 09:35 | NUR ---
NURSE NOTES: Weaning started with CPAP and PS 8 by RT. O2 sat 100%. RR 19. No respiratory distress noted so far. Will continue to monitor.
--- NOTE | 2018-12-05 10:27 | NUR ---
NURSE NOTES: Dr Trinidad here to assess the patent. Updated him with pt's current condition, including pitting edema and weeping on bilateral upper extremities. Awaiting new orders.
--- NOTE | 2018-12-05 10:39 | Pulmonolgy Critical Care Note ---
Critical Care - Asmt/Plan Problems: (1) Hemorrhagic shocks (2) Status post exploratory laparotomy (3) Duodenal ulcer hemorrhage (4) SVT (supraventricular tachycardia) (5) HCAP (healthcare-associated pneumonia) (6) Acute DVT (deep venous thrombosis) (7) COPD (chronic obstructive pulmonary disease) (8) S/P insertion of IVC (inferior vena caval) filter (9) C. difficile colitis (10) Alzheimer's dementia (11) Parkinson disease (12) Feeding by G-tube (13) Seizures (14) Severe protein-calorie malnutrition Respiratory: monitor respiratory rate, adjust FIO2, CXR, weaning trial Cardiac: continue to monitor HR/BP Renal: F/U I&O Gastrointestinal: continue feedings/current rate, hold feedings Endocrine: monitor blood sugar Hematologic: monitor H/H, transfuse if hgb<8.5 Neurologic: PRN Morphine, keep patient comfortable Prophylaxis: Protonix Notes Reviewed: cardio Discussed with: nurses, consultants, hospice case manager, family member Critical Care - Objective Last 24 Hour Vital Signs Date Time Temp Pulse Resp B/P (MAP) Pulse Ox O2 Delivery O2 Flow Rate FiO2 12/05/18 10:00 124 22 111/73 (86) 99 12/05/18 09:35 30 12/05/18 09:33 30 12/05/18 09:29 100 12/05/18 09:27 126 19 30 12/05/18 09:00 116 18 116/67 (83) 100 12/05/18 08:40 115 12/05/18 08:00 Mechanical Ventilator Mechanical Ventilator Mechanical Ventilator 12/05/18 08:00 30 12/05/18 08:00 99.1 123 21 132/76 (94) 100 12/05/18 07:45 115 15 30 12/05/18 07:00 121 16 121/65 (83) 100 12/05/18 06:00 117 16 127/69 (88) 100 12/05/18 05:00 116 18 113/69 (84) 100 12/05/18 04:56 107 18 30 12/05/18 04:00 30 12/05/18 04:00 Mechanical Ventilator Mechanical Ventilator Mechanical Ventilator 12/05/18 04:00 99.1 127 23 110/65 (80) 97 12/05/18 04:00 140 12/05/18 03:00 114 17 106/60 (75) 98 12/05/18 02:36 112 16 30 12/05/18 02:00 120 19 115/67 (83) 100 12/05/18 01:07 115 22 30 12/05/18 01:00 123 17 117/61 (79) 100 12/05/18 00:00 99.0 111 16 112/67 (82) 100 12/05/18 00:00 Mechanical Ventilator Mechanical Ventilator Mechanical Ventilator 12/04/18 23:41 124 12/04/18 23:22 113 17 100 Mechanical Ventilator 30 12/04/18 23:20 113 17 30 12/04/18 23:00 118 18 114/73 (87) 100 12/04/18 22:00 111 14 117/55 (75) 100 12/04/18 21:00 114 16 101/53 (69) 100 12/04/18 20:52 111 17 30 12/04/18 20:00 109 12/04/18 20:00 115 18 109/69 (82) 100 12/04/18 20:00 30 12/04/18 20:00 Mechanical Ventilator Mechanical Ventilator Mechanical Ventilator 12/04/18 19:12 112 19 30 12/04/18 19:00 108 13 109/60 (76) 100 12/04/18 18:03 117/67 12/04/18 18:00 124 18 117/67 (84) 100 12/04/18 17:00 107 16 124/66 (85) 100 12/04/18 16:45 114 15 30 12/04/18 16:00 98.6 103 16 111/61 (78) 100 12/04/18 16:00 30 12/04/18 16:00 97 12/04/18 15:45 114 15 30 12/04/18 15:00 105 16 118/80 (93) 100 12/04/18 14:30 96 18 30 12/04/18 14:00 95 14 124/78 (93) 100 12/04/18 13:08 30 12/04/18 13:05 102 23 30 12/04/18 13:00 102 17 109/69 (82) 100 12/04/18 12:00 99.3 106 15 110/60 (77) 100 12/04/18 12:00 30 12/04/18 12:00 102 12/04/18 12:00 Mechanical Ventilator Mechanical Ventilator Mechanical Ventilator 12/04/18 11:00 99 12 118/75 (89) 100 12/04/18 10:52 102 12 30 Status: awake Condition: critical Neck: full ROM Lungs: clear Heart: HR/BP stable, regular Abdomen: non-tender, feeding tube Extremities: edema Decubiti: stage Micro: Microbiology Date/Time Source Procedure Growth Status 12/03/18 15:45 Blood Blood Culture - Preliminary NO GROWTH AFTER 24 HOURS Resulted 12/03/18 15:30 Blood Blood Culture - Preliminary NO GROWTH AFTER 24 HOURS Resulted 12/03/18 09:10 Sputum Gram Stain - Final Resulted 12/03/18 09:10 Sputum Culture - Preliminary Gram Negative Bacillus 1 Gram Negative Bacillus 2 Resulted 12/03/18 15:30 Urine,Clean Catch Urine Culture - Preliminary NO GROWTH AFTER 24 HOURS Resulted Critical Care - Subjective ROS Limited/Unobtainable: No Condition: critical EKG Rhythm: Sinus Bradycardia FI02: 30 Vent Support Breath Rate: 10 Vent Support Mode: CPAP Vent Tidal Volume: 600 Sputum Amount: Small PEEP: 0.0 PIP: 33 Tube Feeding Amount: 0 I&O: Intake and Output 12/04/18 12/05/18 19:00 07:00 Intake Total 1685.0 ml 1300 ml Output Total 590 ml 377 ml Balance 1095.0 ml 923 ml IV Total 1635.0 ml 1300 ml Other 50 ml Output Urine Total 420 ml 320 ml Gastric Drainage Total 150 ml 50 ml Drainage Total 20 ml 7 ml # Bowel Movements 1 CXR: no change ET-Tube: 7.5 ET Position: 25 Labs: Laboratory Tests Test 12/05/18 04:50 12/05/18 08:20 White Blood Count 10.8 K/UL (4.8-10.8) Red Blood Count 3.05 M/UL (4.70-6.10) L Hemoglobin 9.5 G/DL (14.2-18.0) L Hematocrit 28.2 % (42.0-52.0) L Mean Corpuscular Volume 92 FL (80-99) Mean Corpuscular Hemoglobin 31.1 PG (27.0-31.0) H Mean Corpuscular Hemoglobin Concent 33.7 G/DL (32.0-36.0) Red Cell Distribution Width 16.7 % (11.6-14.8) H Platelet Count 148 K/UL (150-450) L Mean Platelet Volume 6.3 FL (6.5-10.1) L Neutrophils (%) (Auto) 84.6 % (45.0-75.0) H Lymphocytes (%) (Auto) 8.6 % (20.0-45.0) L Monocytes (%) (Auto) 5.4 % (1.0-10.0) Eosinophils (%) (Auto) 1.3 % (0.0-3.0) Basophils (%) (Auto) 0.2 % (0.0-2.0) Sodium Level 142 MMOL/L (136-145) Potassium Level 3.2 MMOL/L (3.5-5.1) L Chloride Level 112 MMOL/L (98-107) H Carbon Dioxide Level 23 MMOL/L (21-32) Anion Gap 7 mmol/L (5-15) Blood Urea Nitrogen 13 mg/dL (7-18) Creatinine 0.5 MG/DL (0.55-1.30) L Estimat Glomerular Filtration Rate mL/min (>60) Glucose Level 114 MG/DL (74-106) H Uric Acid 5.2 MG/DL (2.6-7.2) Calcium Level 7.7 MG/DL (8.5-10.1) L Phosphorus Level 2.9 MG/DL (2.5-4.9) Magnesium Level 1.5 MG/DL (1.8-2.4) L Total Bilirubin 1.0 MG/DL (0.2-1.0) Aspartate Amino Transf (AST/SGOT) 10 U/L (15-37) L Alanine Aminotransferase (ALT/SGPT) 15 U/L (12-78) Alkaline Phosphatase 51 U/L (46-116) C-Reactive Protein, Quantitative 16.3 mg/dL (0.00-0.90) H Pro-B-Type Natriuretic Peptide 2756 pg/mL (0-125) H Total Protein 3.9 G/DL (6.4-8.2) L Albumin 1.6 G/DL (3.4-5.0) L Globulin 2.3 g/dL Albumin/Globulin Ratio 0.7 (1.0-2.7) L Arterial Blood pH 7.475 (7.350-7.450) Arterial Blood Partial Pressure CO2 27.7 mmHg (35.0-45.0) L Arterial Blood Partial Pressure O2 86.9 mmHg (75.0-100.0) Arterial Blood HCO3 19.9 mmol/L (22.0-26.0) L Arterial Blood Oxygen Saturation 96.5 % (95-100) Arterial Blood Base Excess -2.9 (-2-2) L Blake Test Positive David Carrasquillo MD Dec 05, 2018 10:39
--- NOTE | 2018-12-05 10:50 | NUR ---
NURSE NOTES: Dr Carrasquillo here to see the patient. Updated him with pt's current condition that pt is on CPAP and tolerating the current setting and ABG was drawn and the result is up before weaning. Labs for tomorrow received. Addendum: 12/05/18 at 1106 by SANTI ROSA RN RN NURSE NOTES: Dr Carrasquillo here to see the patient. Updated him with pt's current condition that pt is on CPAP and tolerating the current setting and ABG was drawn before weaning and the result is up. Labs for tomorrow received.
--- NOTE | 2018-12-05 11:59 | NUR ---
NURSE NOTES: Dr Eugene here to see the patient. Will hold feeding and keep NPO as per his order. Addendum: 12/05/18 at 1311 by SANTI ROSA RN RN NURSE NOTES: Dr Eugene here to see the patient. Updated him with pt's current condition, including drainage from G-tube. Will continue to hold feeding and keep NPO as per his order. Addendum: 12/05/18 at 1805 by SANTI ROSA RN RN NURSE NOTES: Dr Eugene here to see the patient. Updated him with pt's current condition, including drainage from G-tube. Will continue to hold feeding and keep NPO as per his order. Abdominal dressing removed by Dr Eugene. Maria Victoria dry and intact. ANGIE drain and G-tube in place draining to gravity.
--- NOTE | 2018-12-05 12:19 | Diagnostic Imaging Report ---
Indication: Dyspnea Comparison: 12/04/2018 A single view chest radiograph was obtained. Findings: Patchy perihilar and basilar densities noted with cardiomegaly. Tubes and lines are stable. IMPRESSION: Worsening perihilar/basilar densities. Suspect heart failure. Correlate clinically
--- NOTE | 2018-12-05 13:00 | Hematology/Onc Progress Note ---
Assessment/Plan Assessment/Plan Assessment/Plan # Acute right leg DVT. Heparin drip DCed for rectal bleed. s/p IVC FILTER --> agree with need for this given coagulant contraindication --> appreciate gi and pulm/cc recs --> UPPER EXT DVT noted as well --> have discontinued eliquis given acute GI bleed on 11/27/18, ON HOLD --> in icu as of 11/27, remains # Anemia due to GI Bleed, other causes exist, multifactorial --> Anemia workup has been reviewed, FERRITIN 831 --> No evidence of hemolysis is noted, peripheral smear has been reviewed. --> Hgb goal >7. Transfuse prn. --> Epogen or iron at this time is not particularly indicated --> Medications have been reviewed --> low threshold for gi evaluation in case has occult +--> endoscopy and colo pending --> hgb trend: 7.4-->9.0-->9-->8.6->8.9-->6.1-->9.8--> 7.3->8.8-->9-->9.5 --> EGD with duodenal bleed, may need sx --> Blood tx: 1 unit 11/19, 11/27, 12/02 # Thrombocytopenia likely related to infection --> trend plt 111k-->129k-->148k # Leukocytosis due to sepsis. --> Monitor for improvement --> urine and blood cultures are both positive, mrsa positive --> IV abx per id --> trend wbc 11.6--> 16 # Sinus tach due to anemia and sepsis and beta danya withdrawal as was on Metoprolol 12.5 bid at [facility] --> per cards recs # Hypertension. Hold Metoprolol as BP is 90s. --> cloniditon per cards # S/P PEG The timing of this note does not necessarily reflect the time of the patient was seen. GREATLY APPRECIATE CONSULTATION. Subjective Constitutional: Denies: no symptoms, chills, fever, malaise, weakness, other HEENT: Denies: no symptoms, eye pain, blurred vision, tearing, double vision, ear pain, ear discharge, nose pain, nose congestion, throat pain, throat swelling, mouth pain, mouth swelling, other Cardiovascular: Denies: no symptoms, chest pain, edema, irregular heart rate, lightheadedness, palpitations, syncope, other Respiratory: Denies: no symptoms, cough, shortness of breath, SOB with excertion, SOB at rest, sputum, wheezing, other Gastrointestinal/Abdominal: Denies: no symptoms, abdomen distended, abdominal pain, black stools, tarry stools, blood in stool, constipated, diarrhea, difficulty swallowing, nausea, poor appetite, poor fluid intake, rectal bleeding , vomiting, other Genitourinary: Denies: no symptoms, burning, discharge, frequency, flank pain, hematuria, incontinence, pain, urgency, other Neurologic/Psychiatric: Denies: no symptoms, anxiety, depressed, emotional problems, headache, numbness, paresthesia, pre-existing deficit, seizure, tingling, tremors, weakness, other Allergies: Coded Allergies: No Known Allergies (Unverified , 11/18/18) Subjective Subjective 11/20: Colonoscopy for today. S/P 1 unit prbc. 11/21: Pt awake and nonverbal. Hgb at 7.4, blood tx ordered. 11/23: Pt no acute respiratory distress. CXR Increased bilateral lower lobe atelectasis or airspace consolidation. Underlying pneumonia may be present. Small bilateral pleural effusions. 11/24: no events, no f/c noted, no bleeding, anemia panel reviewed, s/p ivc filter 11/25: No acute events, no signs of distress. DC planning 11/26: no events, no bleeding, noted to have b/l upper ext dvt, acute started on elqiuis 11/27: sbo was ow in the am, transferred to the icu, hgb low requiring transfusion 11/28: Left UE edema > Right UE, s/p blood transfusion 11/27. 11/29:pt is on Venti mask, lethargic. 11/30:pt seen in am, with thick sputum per suctioning. 12/02: no events reported, hgb is better, seen by cards, pulm 12/03: no events, no chills, remains in icu 12/04: is off vanco po, remains in the icu, hgb 9 12/05: no events, no f/c, labs reviwed, on cpap Objective Objective Current Medications Medications (Trade) Dose Ordered Sig/Pauline Route PRN Reason Start Time Stop Time Status Last Admin Dose Admin Acetaminophen (Tylenol) 650 mg Q4H PRN GT T>100.5 11/27/18 18:18 12/22/18 18:17 12/03/18 13:02 Carbidopa/Levodopa (Sinemet 25/100) 1 tab THREE TIMES A DAY GT 11/27/18 18:00 12/27/18 17:59 12/03/18 17:00 Chlorhexidine Gluconate (Marycarmen-Hex 2%) 1 applic DAILY@2000 TOPIC 11/30/18 20:00 12/30/18 19:59 12/04/18 20:32 Dextrose (Dextrose 50%) 25 ml Q30M PRN IV Hypoglycemia 11/27/18 18:18 12/18/18 18:17 Dextrose (Dextrose 50%) 50 ml Q30M PRN IV Hypoglycemia 11/27/18 18:18 12/18/18 18:17 Hydralazine HCl (Apresoline) 10 mg Q2H PRN IV Systolic BP greater than 170 12/04/18 16:45 01/03/19 16:44 Hydrocortisone (Proctosol-HC Cream) 1 applic Q12HR TOPIC 12/02/18 13:00 01/01/19 12:59 12/05/18 08:31 Lactobacillus Acidophilus (Culturelle) 1 tab THREE TIMES A DAY ORAL 11/29/18 18:00 12/29/18 17:59 12/03/18 17:00 Magnesium Sulfate 100 ml @ 100 mls/hr Q1H IVPB 12/05/18 10:00 12/05/18 13:59 12/05/18 12:16 Metronidazole 100 ml @ 100 mls/hr Q8HR IVPB 12/04/18 14:00 12/11/18 13:59 12/05/18 05:31 Midazolam HCl (Versed 2mg/2ml vial) 1 mg Q1H PRN IVP SEDATION 12/02/18 20:30 01/01/19 20:29 Morphine Sulfate (Morphine Sulfate) 2 mg Q1H PRN IVP For Pain scale 4-7 12/02/18 20:23 12/09/18 20:22 12/04/18 05:31 Norepinephrine Bitartrate 8 mg/ Sodium Chloride 250 ml @ 0 mls/hr Q24H IV 12/03/18 18:03 01/02/19 18:02 12/03/18 18:09 Pantoprazole 80 mg/Sodium Chloride 250 ml @ 25 mls/hr Q10H IV 11/30/18 17:00 12/30/18 16:59 12/05/18 06:25 Potassium Chloride 100 ml @ 100 mls/hr Q1HR IVPB 12/05/18 10:00 12/05/18 13:59 12/05/18 12:16 Sodium Hypochlorite (Dakin's Quarter Strength) 1 applic DAILY TOPIC 12/04/18 12:00 01/03/19 11:59 12/05/18 08:31 Vancomycin HCl (Vanco rx to dose) 1 ea DAILY PRN MISC Per rx protocol 11/27/18 18:18 12/27/18 18:17 Vancomycin HCl 500 mg/Dextrose 110 ml @ 110 mls/hr Q24H IVPB 12/04/18 09:00 12/16/18 23:59 12/05/18 08:26 Last 24 Hour Vital Signs Date Time Temp Pulse Resp B/P (MAP) Pulse Ox O2 Delivery O2 Flow Rate FiO2 12/05/18 12:42 97 18 12/05/18 12:00 98.3 106 19 118/65 (82) 99 12/05/18 12:00 Mechanical Ventilator Mechanical Ventilator Mechanical Ventilator 12/05/18 11:46 101 12/05/18 11:00 111 18 136/100 (112) 99 12/05/18 10:52 101 20 12/05/18 10:00 124 22 111/73 (86) 99 12/05/18 09:35 30 12/05/18 09:33 30 12/05/18 09:29 100 12/05/18 09:27 126 19 30 12/05/18 09:00 116 18 116/67 (83) 100 12/05/18 08:40 115 12/05/18 08:00 Mechanical Ventilator Mechanical Ventilator Mechanical Ventilator 12/05/18 08:00 30 12/05/18 08:00 99.1 123 21 132/76 (94) 100 12/05/18 07:45 115 15 30 12/05/18 07:00 121 16 121/65 (83) 100 12/05/18 06:00 117 16 127/69 (88) 100 12/05/18 05:00 116 18 113/69 (84) 100 12/05/18 04:56 107 18 30 12/05/18 04:00 30 12/05/18 04:00 Mechanical Ventilator Mechanical Ventilator Mechanical Ventilator 12/05/18 04:00 99.1 127 23 110/65 (80) 97 12/05/18 04:00 140 12/05/18 03:00 114 17 106/60 (75) 98 12/05/18 02:36 112 16 30 12/05/18 02:00 120 19 115/67 (83) 100 12/05/18 01:07 115 22 30 12/05/18 01:00 123 17 117/61 (79) 100 12/05/18 00:00 99.0 111 16 112/67 (82) 100 12/05/18 00:00 Mechanical Ventilator Mechanical Ventilator Mechanical Ventilator 12/04/18 23:41 124 12/04/18 23:22 113 17 100 Mechanical Ventilator 30 12/04/18 23:20 113 17 30 12/04/18 23:00 118 18 114/73 (87) 100 12/04/18 22:00 111 14 117/55 (75) 100 12/04/18 21:00 114 16 101/53 (69) 100 12/04/18 20:52 111 17 30 12/04/18 20:00 109 12/04/18 20:00 115 18 109/69 (82) 100 12/04/18 20:00 30 12/04/18 20:00 Mechanical Ventilator Mechanical Ventilator Mechanical Ventilator 12/04/18 19:12 112 19 30 12/04/18 19:00 108 13 109/60 (76) 100 12/04/18 18:03 117/67 12/04/18 18:00 124 18 117/67 (84) 100 12/04/18 17:00 107 16 124/66 (85) 100 12/04/18 16:45 114 15 30 12/04/18 16:00 98.6 103 16 111/61 (78) 100 12/04/18 16:00 30 12/04/18 16:00 97 12/04/18 15:45 114 15 30 12/04/18 15:00 105 16 118/80 (93) 100 12/04/18 14:30 96 18 30 12/04/18 14:00 95 14 124/78 (93) 100 12/04/18 13:08 30 12/04/18 13:05 102 23 30 12/04/18 13:00 102 17 109/69 (82) 100 12/04/18 12:00 99.3 106 15 110/60 (77) 100 12/04/18 12:00 30 12/04/18 12:00 102 12/04/18 12:00 Mechanical Ventilator Mechanical Ventilator Mechanical Ventilator 12/04/18 11:00 99 12 118/75 (89) 100 12/04/18 10:52 102 12 30 12/04/18 10:00 106 12 115/66 (82) 100 12/04/18 09:48 108 13 30 30 12/04/18 09:48 30 12/04/18 09:48 100 12/04/18 09:25 120 18 30 12/04/18 09:00 111 17 113/52 (72) 100 12/04/18 08:00 Mechanical Ventilator Mechanical Ventilator Mechanical Ventilator 12/04/18 08:00 98.8 115 17 130/106 (114) 100 12/04/18 08:00 30 12/04/18 08:00 117 12/04/18 07:08 121 15 30 12/04/18 07:00 113 16 106/71 (83) 100 12/04/18 06:00 125 16 106/64 (78) 100 12/04/18 05:03 132 26 30 12/04/18 05:00 98.2 125 17 112/65 (81) 100 12/04/18 04:00 Mechanical Ventilator 12/04/18 04:00 105 12/04/18 04:00 30 12/04/18 04:00 98.4 105 17 96/56 (69) 100 12/04/18 03:07 115 21 30 12/04/18 03:00 98.4 138 17 112/61 (78) 100 12/04/18 02:00 98.4 120 17 108/50 (69) 100 12/04/18 01:00 98.6 115 16 110/64 (79) 100 12/04/18 00:57 117 16 30 12/04/18 00:00 Mechanical Ventilator 12/04/18 00:00 123 12/04/18 00:00 30 12/04/18 00:00 98.6 123 16 105/54 (71) 100 12/03/18 23:00 98.6 118 16 102/65 (77) 100 12/03/18 22:55 133 22 30 12/03/18 22:00 98.3 120 16 112/68 (83) 99 12/03/18 21:07 117 12 30 12/03/18 21:00 98.3 111 16 116/65 (82) 99 12/03/18 21:00 116/65 12/03/18 20:45 108/62 12/03/18 20:30 115/69 12/03/18 20:15 117/61 12/03/18 20:00 30 12/03/18 20:00 111 12/03/18 20:00 98.3 111 15 124/61 (82) 99 12/03/18 20:00 124/61 12/03/18 20:00 Mechanical Ventilator 12/03/18 19:15 114 13 30 12/03/18 18:09 112/59 12/03/18 18:00 117/53 12/03/18 18:00 112 14 112/59 (76) 100 12/03/18 17:30 96 15 117/63 (81) 100 12/03/18 17:09 134 13 30 12/03/18 17:00 113 15 119/59 (79) 100 12/03/18 17:00 119/59 12/03/18 16:30 98 14 106/59 (75) 100 12/03/18 16:00 Mechanical Ventilator 12/03/18 16:00 30 12/03/18 16:00 131 15 101/63 (76) 100 12/03/18 16:00 101/63 12/03/18 16:00 123 12/03/18 15:30 105 14 117/61 (79) 100 12/03/18 15:00 98 13 125/67 (86) 100 12/03/18 15:00 125/67 12/03/18 14:34 140 13 30 12/03/18 14:30 98.7 113 14 118/69 (85) 100 12/03/18 14:17 144 12/03/18 14:15 144 14 118/74 (89) 100 12/03/18 14:02 129/91 12/03/18 14:00 145 14 129/91 (104) 100 12/03/18 13:32 98.7 12/03/18 13:30 139 16 120/78 (92) 100 12/03/18 13:03 107/71 12/03/18 13:00 143 17 146/89 (108) 100 Intake and Output 12/04/18 12/05/18 19:00 07:00 Intake Total 1685.0 ml 1300 ml Output Total 590 ml 377 ml Balance 1095.0 ml 923 ml IV Total 1635.0 ml 1300 ml Other 50 ml Output Urine Total 420 ml 320 ml Gastric Drainage Total 150 ml 50 ml Drainage Total 20 ml 7 ml # Bowel Movements 1 Labs Test 12/02/18 20:05 12/03/18 06:00 12/03/18 15:30 12/04/18 04:57 White Blood Count 16.1 K/UL (4.8-10.8) 15.6 K/UL (4.8-10.8) 13.5 K/UL (4.8-10.8) Red Blood Count 3.30 M/UL (4.70-6.10) 3.11 M/UL (4.70-6.10) 2.92 M/UL (4.70-6.10) Hemoglobin 10.1 G/DL (14.2-18.0) 9.6 G/DL (14.2-18.0) 9.0 G/DL (14.2-18.0) Hematocrit 30.2 % (42.0-52.0) 28.4 % (42.0-52.0) 27.4 % (42.0-52.0) Mean Corpuscular Volume 91 FL (80-99) 91 FL (80-99) 94 FL (80-99) Mean Corpuscular Hemoglobin 30.5 PG (27.0-31.0) 31.0 PG (27.0-31.0) 31.0 PG (27.0-31.0) Mean Corpuscular Hemoglobin Concent 33.4 G/DL (32.0-36.0) 33.9 G/DL (32.0-36.0) 33.0 G/DL (32.0-36.0) Red Cell Distribution Width 15.5 % (11.6-14.8) 16.4 % (11.6-14.8) 16.9 % (11.6-14.8) Platelet Count 148 K/UL (150-450) 162 K/UL (150-450) 136 K/UL (150-450) Mean Platelet Volume 5.7 FL (6.5-10.1) 5.8 FL (6.5-10.1) 6.6 FL (6.5-10.1) Neutrophils (%) (Auto) % (45.0-75.0) % (45.0-75.0) % (45.0-75.0) Lymphocytes (%) (Auto) % (20.0-45.0) % (20.0-45.0) % (20.0-45.0) Monocytes (%) (Auto) % (1.0-10.0) % (1.0-10.0) % (1.0-10.0) Eosinophils (%) (Auto) % (0.0-3.0) % (0.0-3.0) % (0.0-3.0) Basophils (%) (Auto) % (0.0-2.0) % (0.0-2.0) % (0.0-2.0) Differential Total Cells Counted 100 100 Neutrophils % (Manual) 85 % (45-75) 93 % (45-75) Lymphocytes % (Manual) 7 % (20-45) 2 % (20-45) Monocytes % (Manual) 4 % (1-10) 5 % (1-10) Eosinophils % (Manual) 0 % (0-3) 0 % (0-3) Basophils % (Manual) 1 % (0-2) 0 % (0-2) Band Neutrophils 3 % (0-8) 0 % (0-8) Platelet Estimate Decreased Adequate Platelet Morphology Normal Normal Hypochromasia 1+ 2+ Anisocytosis 1+ Prothrombin Time 12.2 SEC (9.30-11.50) 13.0 SEC (9.30-11.50) Prothromb Time International Ratio 1.2 (0.9-1.1) 1.2 (0.9-1.1) Arterial Blood pH 7.402 (7.350-7.450) Arterial Blood Partial Pressure CO2 30.9 mmHg (35.0-45.0) Arterial Blood Partial Pressure O2 116.1 mmHg (75.0-100.0) Arterial Blood HCO3 18.8 mmol/L (22.0-26.0) Arterial Blood Oxygen Saturation 97.8 % (95-100) Arterial Blood Base Excess -5.1 (-2-2) Blake Test Positive Sodium Level 149 MMOL/L (136-145) 152 MMOL/L (136-145) 144 MMOL/L (136-145) Potassium Level 4.3 MMOL/L (3.5-5.1) 3.5 MMOL/L (3.5-5.1) 3.0 MMOL/L (3.5-5.1) Chloride Level 119 MMOL/L (98-107) 120 MMOL/L (98-107) 114 MMOL/L (98-107) Carbon Dioxide Level 23 MMOL/L (21-32) 22 MMOL/L (21-32) 22 MMOL/L (21-32) Anion Gap 7 mmol/L (5-15) 10 mmol/L (5-15) 8 mmol/L (5-15) Blood Urea Nitrogen 20 mg/dL (7-18) 19 mg/dL (7-18) 15 mg/dL (7-18) Creatinine 0.6 MG/DL (0.55-1.30) 0.6 MG/DL (0.55-1.30) 0.5 MG/DL (0.55-1.30) Estimat Glomerular Filtration Rate mL/min (>60) mL/min (>60) mL/min (>60) Glucose Level 171 MG/DL (74-106) 170 MG/DL (74-106) 130 MG/DL (74-106) Calcium Level 7.3 MG/DL (8.5-10.1) 7.7 MG/DL (8.5-10.1) 7.8 MG/DL (8.5-10.1) Total Bilirubin 0.7 MG/DL (0.2-1.0) 1.0 MG/DL (0.2-1.0) 0.8 MG/DL (0.2-1.0) Aspartate Amino Transf (AST/SGOT) 52 U/L (15-37) 29 U/L (15-37) 18 U/L (15-37) Alanine Aminotransferase (ALT/SGPT) 24 U/L (12-78) 25 U/L (12-78) 15 U/L (12-78) Alkaline Phosphatase 41 U/L (46-116) 42 U/L (46-116) 41 U/L (46-116) Total Protein 3.7 G/DL (6.4-8.2) 3.8 G/DL (6.4-8.2) 3.9 G/DL (6.4-8.2) Albumin 1.6 G/DL (3.4-5.0) 2.0 G/DL (3.4-5.0) 1.9 G/DL (3.4-5.0) Globulin 2.1 g/dL 1.8 g/dL 2.0 g/dL Albumin/Globulin Ratio 0.8 (1.0-2.7) 1.1 (1.0-2.7) 0.9 (1.0-2.7) Spherocytes 2+ Activated Partial Thromboplast Time 30 SEC (23-33) Phosphorus Level 2.7 MG/DL (2.5-4.9) 2.1 MG/DL (2.5-4.9) Magnesium Level 1.7 MG/DL (1.8-2.4) 1.8 MG/DL (1.8-2.4) Random Vancomycin Level 7.1 ug/mL Urine Color Brown Urine Appearance Clear Urine pH 5 (4.5-8.0) Urine Specific [place] 1.020 (1.005-1.035) Urine Protein 2+ (NEGATIVE) Urine Glucose (UA) Negative (NEGATIVE) Urine Ketones Negative (NEGATIVE) Urine Blood 1+ (NEGATIVE) Urine Nitrite Negative (NEGATIVE) Urine Bilirubin Negative (NEGATIVE) Urine Urobilinogen Normal MG/DL (0.0-1.0) Urine Leukocyte Esterase 1+ (NEGATIVE) Urine RBC 2-4 /HPF (0 - 0) Urine WBC 2-4 /HPF (0 - 0) Urine Squamous Epithelial Cells None /LPF (NONE/OCC) Urine Bacteria Moderate /HPF (NONE) Urine Granular Casts 0-2 /LPF (NONE) Lactic Acid Level 1.90 mmol/L (0.4-2.0) Uric Acid 5.0 MG/DL (2.6-7.2) Troponin I 0.178 ng/mL (0.000-0.056) C-Reactive Protein, Quantitative 15.1 mg/dL (0.00-0.90) Pro-B-Type Natriuretic Peptide 5268 pg/mL (0-125) Digoxin Level 0.9 NG/ML (0.5-2.0) Test 12/04/18 09:27 12/05/18 04:50 12/05/18 08:20 Arterial Blood pH 7.430 (7.350-7.450) 7.475 (7.350-7.450) Arterial Blood Partial Pressure CO2 29.9 mmHg (35.0-45.0) 27.7 mmHg (35.0-45.0) Arterial Blood Partial Pressure O2 102.6 mmHg (75.0-100.0) 86.9 mmHg (75.0-100.0) Arterial Blood HCO3 19.4 mmol/L (22.0-26.0) 19.9 mmol/L (22.0-26.0) Arterial Blood Oxygen Saturation 97.0 % (95-100) 96.5 % (95-100) Arterial Blood Base Excess -4.2 (-2-2) -2.9 (-2-2) Blake Test Positive Positive White Blood Count 10.8 K/UL (4.8-10.8) Red Blood Count 3.05 M/UL (4.70-6.10) Hemoglobin 9.5 G/DL (14.2-18.0) Hematocrit 28.2 % (42.0-52.0) Mean Corpuscular Volume 92 FL (80-99) Mean Corpuscular Hemoglobin 31.1 PG (27.0-31.0) Mean Corpuscular Hemoglobin Concent 33.7 G/DL (32.0-36.0) Red Cell Distribution Width 16.7 % (11.6-14.8) Platelet Count 148 K/UL (150-450) Mean Platelet Volume 6.3 FL (6.5-10.1) Neutrophils (%) (Auto) 84.6 % (45.0-75.0) Lymphocytes (%) (Auto) 8.6 % (20.0-45.0) Monocytes (%) (Auto) 5.4 % (1.0-10.0) Eosinophils (%) (Auto) 1.3 % (0.0-3.0) Basophils (%) (Auto) 0.2 % (0.0-2.0) Sodium Level 142 MMOL/L (136-145) Potassium Level 3.2 MMOL/L (3.5-5.1) Chloride Level 112 MMOL/L (98-107) Carbon Dioxide Level 23 MMOL/L (21-32) Anion Gap 7 mmol/L (5-15) Blood Urea Nitrogen 13 mg/dL (7-18) Creatinine 0.5 MG/DL (0.55-1.30) Estimat Glomerular Filtration Rate mL/min (>60) Glucose Level 114 MG/DL (74-106) Uric Acid 5.2 MG/DL (2.6-7.2) Calcium Level 7.7 MG/DL (8.5-10.1) Phosphorus Level 2.9 MG/DL (2.5-4.9) Magnesium Level 1.5 MG/DL (1.8-2.4) Total Bilirubin 1.0 MG/DL (0.2-1.0) Aspartate Amino Transf (AST/SGOT) 10 U/L (15-37) Alanine Aminotransferase (ALT/SGPT) 15 U/L (12-78) Alkaline Phosphatase 51 U/L (46-116) C-Reactive Protein, Quantitative 16.3 mg/dL (0.00-0.90) Pro-B-Type Natriuretic Peptide 2756 pg/mL (0-125) Total Protein 3.9 G/DL (6.4-8.2) Albumin 1.6 G/DL (3.4-5.0) Globulin 2.3 g/dL Albumin/Globulin Ratio 0.7 (1.0-2.7) Height (Feet): 5 Height (Inches): 5.00 Weight (Pounds): 132 Objective PE General Appearance: WD/WN Lines, tubes and drains: central line HEENT: normocephalic, atraumatic Neck: non-tender, normal alignment Breasts: no masses Cardiovascular/Chest: normal peripheral pulses, normal rate, regular rhythm Abdomen: normal bowel sounds, non tender ++ peg Genitourinary/Rectal: normal genital exam, heme negative stool Extremities: normal range of motion Skin Exam: normal pigmentation 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 MD Dec 05, 2018 13:00
--- NOTE | 2018-12-05 13:37 | Infectious Diseases Prog Note ---
Assessment/Plan Assessment/Plan Assessment: GIB- 2ry to actively bleeding Duodenal ulcer -12/02 SP exploratory laparotomy. Anterior duodenotomy for control of large posterior duodenal ulcer hemorrhage. closure of duodenotomy. pyloric exclusion with gastrojejunostomy abdominal washout. abdominal drain placement -12/02 SP EGD Shock likely hemorrhagic and septic component- now off presors -12/04 CXR: Suggestion of a slightly worsening vascular congestion -12/03 u/a neg, ucx NTD Bcx NTD -12/02 CXR: Slightly increased bilateral infiltrates Diarrhea CDiff + GI bleed 11/29 Colonscopy : Diverticulosis Sepsis -11/30 CT abd/p: Nonspecific trace free intraperitoneal fluid. No acute abdominal or pelvic process otherwise. Fairly extensive bilateral basilar pulmonary parenchymal consolidation and atelectasis. Bilateral small pleural effusions. Colonic diverticulosis. No evidence of diverticulitis. Gastrostomy. Nonobstructive 3 mm left intrarenal calyceal calculus. Prostatomegaly. Edema of the bilateral left greater than right subcutaneous fat. Fairly extensive chronic appearing bilateral hip degenerative changes, with bilateral joint effusions versus chronic synovial proliferation. Inferior vena cava filter -11/28 BCx Neg u/a no pyuria ucx Neg Pneumonia -CXR: Patchy bilateral infiltrates versus mixed interstitial alveolar edema noted. -sp cx MRSA, MDR P. stuarti (S Amikacin, Zosyn ; I cefepime; S ertapenem) Afebrile Leukocytosis; improving MRSA bacteremia- suspect 2ry to PNA- r/o endocarditis -11/18 Bcx 2/4 MRSA , 1/ S. capitis, Diptheroids (these 2 are contaminants); BCx Neg -2d Echo:limited study (no vegetations) Probable UTI, sp Rx -u/a wbc 10-15, nit neg, leuk +2; ucx MDR ABC (S bactrim, gentamicin) Acute respiratory failure Sacral decubitus ulcer, necrotic, surrounding cellulitis GIB dementia HTN CKD COPD dysphagia s/p Gtube feeding Parkinson disease seizure disorder multiple decubiti wounds half-way resident Plan: - Resume IV Flagyl #2 (abx d #12/07) for Cdiff given NPO status -Continue empiric IV Vancomycin #18/-28 for MRSA bacteremia and PNA -low threshold to start Zosyn if febrile, rising WBC and.or vent requirements/increase secretions -FLORINA pending -12/03 SP PO Vancomycin #5 (held as pt now is NPO) -12/02 SP Flagyl #4 -11/29 SP Zosyn #8 -11/27 SP Bactrim #7 -11/23 SP Cefepime #6 -11/18 SP Levaquin x1 -f/u cx -Monitor CBC/CMP, temperatures -GT care -aspiration precautions -wound care per surgical team -Recommend FLORINA -f/u ucx, Bcx x2, sp cx -ETT/ICU care -GI, Gen Sx f/u Subjective Allergies: Coded Allergies: No Known Allergies (Unverified , 11/18/18) Subjective afebrile Leukocytosis improving \BcxN TD Objective Vital Signs Last 24 Hour Vital Signs Date Time Temp Pulse Resp B/P (MAP) Pulse Ox O2 Delivery O2 Flow Rate FiO2 12/05/18 13:00 107 16 122/63 (82) 100 12/05/18 12:42 97 18 12/05/18 12:00 98.3 106 19 118/65 (82) 99 12/05/18 12:00 Mechanical Ventilator Mechanical Ventilator Mechanical Ventilator 12/05/18 11:46 101 12/05/18 11:00 111 18 136/100 (112) 99 12/05/18 10:52 101 20 12/05/18 10:00 124 22 111/73 (86) 99 12/05/18 09:35 30 12/05/18 09:33 30 12/05/18 09:29 100 12/05/18 09:27 126 19 30 12/05/18 09:00 116 18 116/67 (83) 100 12/05/18 08:40 115 12/05/18 08:00 Mechanical Ventilator Mechanical Ventilator Mechanical Ventilator 12/05/18 08:00 30 12/05/18 08:00 99.1 123 21 132/76 (94) 100 12/05/18 07:45 115 15 30 12/05/18 07:00 121 16 121/65 (83) 100 12/05/18 06:00 117 16 127/69 (88) 100 12/05/18 05:00 116 18 113/69 (84) 100 12/05/18 04:56 107 18 30 12/05/18 04:00 30 12/05/18 04:00 Mechanical Ventilator Mechanical Ventilator Mechanical Ventilator 12/05/18 04:00 99.1 127 23 110/65 (80) 97 12/05/18 04:00 140 12/05/18 03:00 114 17 106/60 (75) 98 12/05/18 02:36 112 16 30 12/05/18 02:00 120 19 115/67 (83) 100 12/05/18 01:07 115 22 30 12/05/18 01:00 123 17 117/61 (79) 100 12/05/18 00:00 99.0 111 16 112/67 (82) 100 12/05/18 00:00 Mechanical Ventilator Mechanical Ventilator Mechanical Ventilator 12/04/18 23:41 124 12/04/18 23:22 113 17 100 Mechanical Ventilator 30 12/04/18 23:20 113 17 30 12/04/18 23:00 118 18 114/73 (87) 100 12/04/18 22:00 111 14 117/55 (75) 100 12/04/18 21:00 114 16 101/53 (69) 100 12/04/18 20:52 111 17 30 12/04/18 20:00 109 12/04/18 20:00 115 18 109/69 (82) 100 12/04/18 20:00 30 12/04/18 20:00 Mechanical Ventilator Mechanical Ventilator Mechanical Ventilator 12/04/18 19:12 112 19 30 12/04/18 19:00 108 13 109/60 (76) 100 12/04/18 18:03 117/67 12/04/18 18:00 124 18 117/67 (84) 100 12/04/18 17:00 107 16 124/66 (85) 100 12/04/18 16:45 114 15 30 12/04/18 16:00 98.6 103 16 111/61 (78) 100 12/04/18 16:00 30 12/04/18 16:00 97 12/04/18 15:45 114 15 30 12/04/18 15:00 105 16 118/80 (93) 100 12/04/18 14:30 96 18 30 12/04/18 14:00 95 14 124/78 (93) 100 Height (Feet): 5 Height (Inches): 5.00 Weight (Pounds): 132 Objective General Appearance: WD/WN, no apparent distress Lines, tubes and drains: central line HEENT: normocephalic, atraumatic Neck: non-tender, normal alignment Cardiovascular/Chest: normal peripheral pulses, normal rate, regular rhythm Abdomen: normal bowel sounds, non tender Extremities: normal range of motion Skin Exam: normal pigmentation 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 Microbiology Date/Time Source Procedure Growth Status 12/03/18 15:45 Blood Blood Culture - Preliminary NO GROWTH AFTER 24 HOURS Resulted 12/03/18 15:30 Blood Blood Culture - Preliminary NO GROWTH AFTER 24 HOURS Resulted 12/03/18 09:10 Sputum Gram Stain - Final Resulted 12/03/18 09:10 Sputum Culture - Preliminary Gram Negative Bacillus 1 Gram Negative Bacillus 2 Resulted 12/03/18 15:30 Urine,Clean Catch Urine Culture - Preliminary NO GROWTH AFTER 24 HOURS Resulted Laboratory Tests Test 12/05/18 04:50 12/05/18 08:20 White Blood Count 10.8 K/UL (4.8-10.8) Red Blood Count 3.05 M/UL (4.70-6.10) L Hemoglobin 9.5 G/DL (14.2-18.0) L Hematocrit 28.2 % (42.0-52.0) L Mean Corpuscular Volume 92 FL (80-99) Mean Corpuscular Hemoglobin 31.1 PG (27.0-31.0) H Mean Corpuscular Hemoglobin Concent 33.7 G/DL (32.0-36.0) Red Cell Distribution Width 16.7 % (11.6-14.8) H Platelet Count 148 K/UL (150-450) L Mean Platelet Volume 6.3 FL (6.5-10.1) L Neutrophils (%) (Auto) 84.6 % (45.0-75.0) H Lymphocytes (%) (Auto) 8.6 % (20.0-45.0) L Monocytes (%) (Auto) 5.4 % (1.0-10.0) Eosinophils (%) (Auto) 1.3 % (0.0-3.0) Basophils (%) (Auto) 0.2 % (0.0-2.0) Sodium Level 142 MMOL/L (136-145) Potassium Level 3.2 MMOL/L (3.5-5.1) L Chloride Level 112 MMOL/L (98-107) H Carbon Dioxide Level 23 MMOL/L (21-32) Anion Gap 7 mmol/L (5-15) Blood Urea Nitrogen 13 mg/dL (7-18) Creatinine 0.5 MG/DL (0.55-1.30) L Estimat Glomerular Filtration Rate mL/min (>60) Glucose Level 114 MG/DL (74-106) H Uric Acid 5.2 MG/DL (2.6-7.2) Calcium Level 7.7 MG/DL (8.5-10.1) L Phosphorus Level 2.9 MG/DL (2.5-4.9) Magnesium Level 1.5 MG/DL (1.8-2.4) L Total Bilirubin 1.0 MG/DL (0.2-1.0) Aspartate Amino Transf (AST/SGOT) 10 U/L (15-37) L Alanine Aminotransferase (ALT/SGPT) 15 U/L (12-78) Alkaline Phosphatase 51 U/L (46-116) C-Reactive Protein, Quantitative 16.3 mg/dL (0.00-0.90) H Pro-B-Type Natriuretic Peptide 2756 pg/mL (0-125) H Total Protein 3.9 G/DL (6.4-8.2) L Albumin 1.6 G/DL (3.4-5.0) L Globulin 2.3 g/dL Albumin/Globulin Ratio 0.7 (1.0-2.7) L Arterial Blood pH 7.475 (7.350-7.450) Arterial Blood Partial Pressure CO2 27.7 mmHg (35.0-45.0) L Arterial Blood Partial Pressure O2 86.9 mmHg (75.0-100.0) Arterial Blood HCO3 19.9 mmol/L (22.0-26.0) L Arterial Blood Oxygen Saturation 96.5 % (95-100) Arterial Blood Base Excess -2.9 (-2-2) L Blake Test Positive Current Medications Medications (Trade) Dose Ordered Sig/Pauline Route PRN Reason Start Time Stop Time Status Last Admin Dose Admin Acetaminophen (Tylenol) 650 mg Q4H PRN GT T>100.5 11/27/18 18:18 12/22/18 18:17 12/03/18 13:02 Carbidopa/Levodopa (Sinemet 25/100) 1 tab THREE TIMES A DAY GT 11/27/18 18:00 12/27/18 17:59 12/03/18 17:00 Chlorhexidine Gluconate (Marycarmen-Hex 2%) 1 applic DAILY@2000 TOPIC 11/30/18 20:00 12/30/18 19:59 12/04/18 20:32 Dextrose (Dextrose 50%) 25 ml Q30M PRN IV Hypoglycemia 11/27/18 18:18 12/18/18 18:17 Dextrose (Dextrose 50%) 50 ml Q30M PRN IV Hypoglycemia 11/27/18 18:18 12/18/18 18:17 Hydralazine HCl (Apresoline) 10 mg Q2H PRN IV Systolic BP greater than 170 12/04/18 16:45 01/03/19 16:44 Hydrocortisone (Proctosol-HC Cream) 1 applic Q12HR TOPIC 12/02/18 13:00 01/01/19 12:59 12/05/18 08:31 Lactobacillus Acidophilus (Culturelle) 1 tab THREE TIMES A DAY ORAL 11/29/18 18:00 12/29/18 17:59 12/03/18 17:00 Magnesium Sulfate 100 ml @ 100 mls/hr Q1H IVPB 12/05/18 10:00 12/05/18 13:59 12/05/18 13:17 Metronidazole 100 ml @ 100 mls/hr Q8HR IVPB 12/04/18 14:00 12/11/18 13:59 12/05/18 13:16 Midazolam HCl (Versed 2mg/2ml vial) 1 mg Q1H PRN IVP SEDATION 12/02/18 20:30 01/01/19 20:29 Morphine Sulfate (Morphine Sulfate) 2 mg Q1H PRN IVP For Pain scale 4-7 12/02/18 20:23 12/09/18 20:22 12/04/18 05:31 Norepinephrine Bitartrate 8 mg/ Sodium Chloride 250 ml @ 0 mls/hr Q24H IV 12/03/18 18:03 01/02/19 18:02 12/03/18 18:09 Pantoprazole 80 mg/Sodium Chloride 250 ml @ 25 mls/hr Q10H IV 11/30/18 17:00 12/30/18 16:59 12/05/18 06:25 Potassium Chloride 100 ml @ 100 mls/hr Q1HR IVPB 12/05/18 10:00 12/05/18 13:59 12/05/18 13:16 Sodium Hypochlorite (Dakin's Quarter Strength) 1 applic DAILY TOPIC 12/04/18 12:00 01/03/19 11:59 12/05/18 08:31 Vancomycin HCl (Vanco rx to dose) 1 ea DAILY PRN MISC Per rx protocol 11/27/18 18:18 12/27/18 18:17 Vancomycin HCl 500 mg/Dextrose 110 ml @ 110 mls/hr Q24H IVPB 12/04/18 09:00 12/16/18 23:59 12/05/18 08:26 Neva Yee M.D. Dec 05, 2018 13:37
--- NOTE | 2018-12-05 14:30 | General Progress Note ---
Progress Note Progress Note leukocytosis resolved h/h stable exam stable wounds c/d/i drain serosang g tube with green output hold on feeds cont drain care cont abx cont current care Andrew Eugene Dec 05, 2018 14:30
--- NOTE | 2018-12-05 14:55 | Nephrology Progress Note ---
Assessment/Plan Problem List: (1) Hyponatremia Assessment: Na higher (2) UTI (urinary tract infection) (3) Anemia, chronic disease (4) Alzheimer's dementia (5) Parkinson disease (6) C. difficile colitis (7) Perforated duodenal ulcer Assessment Low Na corrected GI bleed transfused other conditions Pneumonia UTI, has grewal bacteremia sacral decub dementia HTN Sz disorder Parkinsons severe Anemia Plan Post OP care ( Laparatomy Op 12/02/18) Trial Albumin and Lasix to diurese K and Mag and Phos supplement hemodynamic support Albumin bolus and transfusion for low BP as needed stop HypoTonic IV solution start maintenence IV fluid Urine studies Transfusion as needed Per orders roberto carlos khalil Subjective ROS Limited/Unobtainable: Yes Objective Objective Last 24 Hour Vital Signs Date Time Temp Pulse Resp B/P (MAP) Pulse Ox O2 Delivery O2 Flow Rate FiO2 12/05/18 14:00 119 17 129/79 (96) 99 12/05/18 13:00 107 16 122/63 (82) 100 12/05/18 12:42 97 18 12/05/18 12:00 98.3 106 19 118/65 (82) 99 12/05/18 12:00 Mechanical Ventilator Mechanical Ventilator Mechanical Ventilator 12/05/18 11:46 101 12/05/18 11:00 111 18 136/100 (112) 99 12/05/18 10:52 101 20 12/05/18 10:00 124 22 111/73 (86) 99 12/05/18 09:35 30 12/05/18 09:33 30 12/05/18 09:29 100 12/05/18 09:27 126 19 30 12/05/18 09:00 116 18 116/67 (83) 100 12/05/18 08:40 115 12/05/18 08:00 Mechanical Ventilator Mechanical Ventilator Mechanical Ventilator 12/05/18 08:00 30 12/05/18 08:00 99.1 123 21 132/76 (94) 100 12/05/18 07:45 115 15 30 12/05/18 07:00 121 16 121/65 (83) 100 12/05/18 06:00 117 16 127/69 (88) 100 12/05/18 05:00 116 18 113/69 (84) 100 12/05/18 04:56 107 18 30 12/05/18 04:00 30 12/05/18 04:00 Mechanical Ventilator Mechanical Ventilator Mechanical Ventilator 12/05/18 04:00 99.1 127 23 110/65 (80) 97 12/05/18 04:00 140 12/05/18 03:00 114 17 106/60 (75) 98 12/05/18 02:36 112 16 30 12/05/18 02:00 120 19 115/67 (83) 100 12/05/18 01:07 115 22 30 12/05/18 01:00 123 17 117/61 (79) 100 12/05/18 00:00 99.0 111 16 112/67 (82) 100 12/05/18 00:00 Mechanical Ventilator Mechanical Ventilator Mechanical Ventilator 12/04/18 23:41 124 12/04/18 23:22 113 17 100 Mechanical Ventilator 30 12/04/18 23:20 113 17 30 12/04/18 23:00 118 18 114/73 (87) 100 12/04/18 22:00 111 14 117/55 (75) 100 12/04/18 21:00 114 16 101/53 (69) 100 12/04/18 20:52 111 17 30 12/04/18 20:00 109 12/04/18 20:00 115 18 109/69 (82) 100 12/04/18 20:00 30 12/04/18 20:00 Mechanical Ventilator Mechanical Ventilator Mechanical Ventilator 12/04/18 19:12 112 19 30 12/04/18 19:00 108 13 109/60 (76) 100 12/04/18 18:03 117/67 12/04/18 18:00 124 18 117/67 (84) 100 12/04/18 17:00 107 16 124/66 (85) 100 12/04/18 16:45 114 15 30 12/04/18 16:00 98.6 103 16 111/61 (78) 100 12/04/18 16:00 30 12/04/18 16:00 97 12/04/18 15:45 114 15 30 12/04/18 15:00 105 16 118/80 (93) 100 Intake and Output 12/04/18 12/05/18 19:00 07:00 Intake Total 1685.0 ml 1300 ml Output Total 590 ml 377 ml Balance 1095.0 ml 923 ml IV Total 1635.0 ml 1300 ml Other 50 ml Output Urine Total 420 ml 320 ml Gastric Drainage Total 150 ml 50 ml Drainage Total 20 ml 7 ml # Bowel Movements 1 Laboratory Tests 12/05/18 04:50: White Blood Count 10.8, Red Blood Count 3.05L, Hemoglobin 9.5L, Hematocrit 28.2L , Mean Corpuscular Volume 92, Mean Corpuscular Hemoglobin 31.1H, Mean Corpuscular Hemoglobin Concent 33.7, Red Cell Distribution Width 16.7H, Platelet Count 148L, Mean Platelet Volume 6.3L, Neutrophils (%) (Auto) 84.6H, Lymphocytes (%) (Auto) 8.6L, Monocytes (%) (Auto) 5.4, Eosinophils (%) (Auto) 1.3, Basophils (%) (Auto) 0.2, Sodium Level 142, Potassium Level 3.2L, Chloride Level 112H, Carbon Dioxide Level 23, Anion Gap 7, Blood Urea Nitrogen 13, Creatinine 0.5L, Estimat Glomerular Filtration Rate , Glucose Level 114H, Uric Acid 5.2, Calcium Level 7.7L, Phosphorus Level 2.9, Magnesium Level 1.5L, Total Bilirubin 1.0, Aspartate Amino Transf (AST/SGOT) 10L, Alanine Aminotransferase ( ALT/SGPT) 15, Alkaline Phosphatase 51, C-Reactive Protein, Quantitative 16.3H, Pro-B-Type Natriuretic Peptide 2756H, Total Protein 3.9L, Albumin 1.6L, Globulin 2.3, Albumin/Globulin Ratio 0.7L 12/05/18 08:20: Arterial Blood pH 7.475H, Arterial Blood Partial Pressure CO2 27.7L, Arterial Blood Partial Pressure O2 86.9, Arterial Blood HCO3 19.9L, Arterial Blood Oxygen Saturation 96.5, Arterial Blood Base Excess -2.9L, Blake Test Positive Height (Feet): 5 Height (Inches): 5.00 Weight (Pounds): 132 General Appearance: no apparent distress EENT: other - vented Cardiovascular: tachycardia Respiratory/Chest: decreased breath sounds Abdomen: distended Objective no change Kendall Trinidad MD Dec 05, 2018 14:54
--- NOTE | 2018-12-05 15:12 | NUR ---
NURSE NOTES: Albumin administered as per order. Spoke with pharmacist. Will give Lasix IVP once Albumin is done infusing as per order. HR 95-100's with PAC's. Turned and repositioned pt. Will continue to monitor.
--- NOTE | 2018-12-05 16:46 | Cardiac Electrophysiology PN ---
Assessment/Plan Assessment/Plan 1. Post op atrial fib with RVR 170s. Got Dig 0.25 iv. Strict NPO. Converted to SR with frequent PAC and PVCs 2. Septic and hemorrhagic shock . Levophed DCed. Echo EF 55% 3. Acute right leg DVT and Bilateral UE DVT. S/P IVC filter . Off Eliquis for severe anemia and GI bleed 4. Staph aureous bacteremia. Dr. Yee who recommended FLORINA pending consent and patient stability 5. Parkinsonism. 6. COPD. 7. UTI. 8. Severe anemia and rectal bleed. S/P Colonoscopy on 11/20/18 and 11/29/18 and transfusion No obvious source. S/P EGD by Dr Dallas and Anterior duodenostomy for control of large posterior duodenal ulcer hemorrhage by Dr Eugene on 12/02/18 9. Seizure disorder. 10. S/P PEG DW RN Subjective Subjective In ICU intubated on the vent s/p Exploratory laparotomy and anterior duodenostomy for control of large posterior duodenal ulcer hemorrhage. Developed atrial fib with RVR 170s. Got 0.5 iv digoxin. Converted to SR. On CPAP since this am. Objective Last 24 Hour Vital Signs Date Time Temp Pulse Resp B/P (MAP) Pulse Ox O2 Delivery O2 Flow Rate FiO2 12/05/18 16:00 98 15 116/74 (88) 100 12/05/18 16:00 Mechanical Ventilator Mechanical Ventilator Mechanical Ventilator 12/05/18 16:00 30 12/05/18 15:27 111 12/05/18 15:00 99 15 125/85 (98) 100 12/05/18 14:52 103 16 12/05/18 14:00 119 17 129/79 (96) 99 12/05/18 13:00 107 16 122/63 (82) 100 12/05/18 12:42 97 18 12/05/18 12:00 98.3 106 19 118/65 (82) 99 12/05/18 12:00 Mechanical Ventilator Mechanical Ventilator Mechanical Ventilator 12/05/18 12:00 30 12/05/18 11:46 101 12/05/18 11:00 111 18 136/100 (112) 99 12/05/18 10:52 101 20 12/05/18 10:00 124 22 111/73 (86) 99 7/12/19 09:35 30 12/05/18 09:33 30 12/05/18 09:29 100 12/05/18 09:27 126 19 30 12/05/18 09:00 116 18 116/67 (83) 100 12/05/18 08:40 115 12/05/18 08:00 Mechanical Ventilator Mechanical Ventilator Mechanical Ventilator 12/05/18 08:00 30 12/05/18 08:00 99.1 123 21 132/76 (94) 100 12/05/18 07:45 115 15 30 12/05/18 07:00 121 16 121/65 (83) 100 12/05/18 06:00 117 16 127/69 (88) 100 12/05/18 05:00 116 18 113/69 (84) 100 12/05/18 04:56 107 18 30 12/05/18 04:00 30 12/05/18 04:00 Mechanical Ventilator Mechanical Ventilator Mechanical Ventilator 12/05/18 04:00 99.1 127 23 110/65 (80) 97 12/05/18 04:00 140 12/05/18 03:00 114 17 106/60 (75) 98 12/05/18 02:36 112 16 30 12/05/18 02:00 120 19 115/67 (83) 100 12/05/18 01:07 115 22 30 12/05/18 01:00 123 17 117/61 (79) 100 12/05/18 00:00 99.0 111 16 112/67 (82) 100 12/05/18 00:00 Mechanical Ventilator Mechanical Ventilator Mechanical Ventilator 12/04/18 23:41 124 12/04/18 23:22 113 17 100 Mechanical Ventilator 30 12/04/18 23:20 113 17 30 12/04/18 23:00 118 18 114/73 (87) 100 12/04/18 22:00 111 14 117/55 (75) 100 12/04/18 21:00 114 16 101/53 (69) 100 12/04/18 20:52 111 17 30 12/04/18 20:00 109 12/04/18 20:00 115 18 109/69 (82) 100 12/04/18 20:00 30 12/04/18 20:00 Mechanical Ventilator Mechanical Ventilator Mechanical Ventilator 12/04/18 19:12 112 19 30 12/04/18 19:00 108 13 109/60 (76) 100 12/04/18 18:03 117/67 12/04/18 18:00 124 18 117/67 (84) 100 12/04/18 17:00 107 16 124/66 (85) 100 12/04/18 16:45 114 15 30 Intake and Output 12/04/18 12/05/18 19:00 07:00 Intake Total 1685.0 ml 1300 ml Output Total 590 ml 377 ml Balance 1095.0 ml 923 ml IV Total 1635.0 ml 1300 ml Other 50 ml Output Urine Total 420 ml 320 ml Gastric Drainage Total 150 ml 50 ml Drainage Total 20 ml 7 ml # Bowel Movements 1 Laboratory Tests Test 12/05/18 04:50 12/05/18 08:20 White Blood Count 10.8 K/UL (4.8-10.8) Red Blood Count 3.05 M/UL (4.70-6.10) L Hemoglobin 9.5 G/DL (14.2-18.0) L Hematocrit 28.2 % (42.0-52.0) L Mean Corpuscular Volume 92 FL (80-99) Mean Corpuscular Hemoglobin 31.1 PG (27.0-31.0) H Mean Corpuscular Hemoglobin Concent 33.7 G/DL (32.0-36.0) Red Cell Distribution Width 16.7 % (11.6-14.8) H Platelet Count 148 K/UL (150-450) L Mean Platelet Volume 6.3 FL (6.5-10.1) L Neutrophils (%) (Auto) 84.6 % (45.0-75.0) H Lymphocytes (%) (Auto) 8.6 % (20.0-45.0) L Monocytes (%) (Auto) 5.4 % (1.0-10.0) Eosinophils (%) (Auto) 1.3 % (0.0-3.0) Basophils (%) (Auto) 0.2 % (0.0-2.0) Sodium Level 142 MMOL/L (136-145) Potassium Level 3.2 MMOL/L (3.5-5.1) L Chloride Level 112 MMOL/L (98-107) H Carbon Dioxide Level 23 MMOL/L (21-32) Anion Gap 7 mmol/L (5-15) Blood Urea Nitrogen 13 mg/dL (7-18) Creatinine 0.5 MG/DL (0.55-1.30) L Estimat Glomerular Filtration Rate mL/min (>60) Glucose Level 114 MG/DL (74-106) H Uric Acid 5.2 MG/DL (2.6-7.2) Calcium Level 7.7 MG/DL (8.5-10.1) L Phosphorus Level 2.9 MG/DL (2.5-4.9) Magnesium Level 1.5 MG/DL (1.8-2.4) L Total Bilirubin 1.0 MG/DL (0.2-1.0) Aspartate Amino Transf (AST/SGOT) 10 U/L (15-37) L Alanine Aminotransferase (ALT/SGPT) 15 U/L (12-78) Alkaline Phosphatase 51 U/L (46-116) C-Reactive Protein, Quantitative 16.3 mg/dL (0.00-0.90) H Pro-B-Type Natriuretic Peptide 2756 pg/mL (0-125) H Total Protein 3.9 G/DL (6.4-8.2) L Albumin 1.6 G/DL (3.4-5.0) L Globulin 2.3 g/dL Albumin/Globulin Ratio 0.7 (1.0-2.7) L Arterial Blood pH 7.475 (7.350-7.450) Arterial Blood Partial Pressure CO2 27.7 mmHg (35.0-45.0) L Arterial Blood Partial Pressure O2 86.9 mmHg (75.0-100.0) Arterial Blood HCO3 19.9 mmol/L (22.0-26.0) L Arterial Blood Oxygen Saturation 96.5 % (95-100) Arterial Blood Base Excess -2.9 (-2-2) L Blake Test Positive Microbiology Date/Time Source Procedure Growth Status 12/03/18 15:45 Blood Blood Culture - Preliminary NO GROWTH AFTER 24 HOURS Resulted 12/03/18 15:30 Blood Blood Culture - Preliminary NO GROWTH AFTER 24 HOURS Resulted 12/03/18 09:10 Sputum Gram Stain - Final Resulted 12/03/18 09:10 Sputum Culture - Preliminary Gram Negative Bacillus 1 Gram Negative Bacillus 2 Resulted 12/03/18 15:30 Urine,Clean Catch Urine Culture - Preliminary NO GROWTH AFTER 24 HOURS Resulted Objective HEAD AND NECK: No JVD.Orally intubated LUNGS: Decreased breath sounds. CARDIOVASCULAR: Regular S1 and S2 with no gallop . ABDOMEN: Soft. G-tube intact. S/P Laparatomy with drain EXTREMITIES: Upper extremity and LE edema. Earl Washington MD Dec 05, 2018 16:46
--- NOTE | 2018-12-05 17:23 | NUR ---
NURSE NOTES: Cleaned and repositioned pt for moderate amount of maroon/brown colored BM. Sacral dressing changed. Bilateral damaso still edematous/weeping and elevated with pillows. Will continue to monitor. Addendum: 12/05/18 at 1740 by SANTI ROSA RN RN NURSE NOTES: Cleaned and repositioned pt for moderate amount of maroon/brown colored BM. Sacral dressing changed. Bilateral arms still edematous/weeping and elevated with pillows. Will continue to monitor.
--- NOTE | 2018-12-05 18:00 | Progress Note ---
DATE: 12/05/2018 SUBJECTIVE: This is a 73-year-old patient with sepsis and pneumonia. He has got confusion, disorganized thought process, mood lability, decline in cognition below his baseline. The patient is in inpatient treatment. That is why, his attending has requested daily consultation for psychiatry. in the ICU. Still very confused, disorganized. He has altered mental status. Very poor historian. He has got no logical plan for his own self-care. MENTAL STATUS EXAMINATION: This is a 73-year-old male patient. Appearance is disheveled. Attitude, irritable and agitated. Affect, guarded and restricted. Intellect poor. Mood, depressed and anxious. Motor activity, psychomotor agitation. Attention span is poor. Orientation x2. Speech is low volume and slurred. Thought process, disorganized and illogical. Insight and judgment is poor. He is very confused and disorganized. He has got some mood lability. DIAGNOSIS: Major depressive disorder, mild, recurrent with psychotic features, rule out dementia with psychosis. PLAN: To continue treatment with medications to stabilize his mood. Provide him with 20 minutes of behavioral management. Chart reviewed. Discussed with staff. Seen and assessed in his room. Laith Mason M.D. DR: RACHEL JOB#: [id number] CC:
--- NOTE | 2018-12-05 19:10 | NUR ---
HAND-OFF: Report given to MONA Cohen.
--- NOTE | 2018-12-05 19:11 | NUR ---
NURSE NOTES: Endorsement received from Leslye Chowdhury RN. Patient opens eyes spontaneously, tracks and makes eye contact. Orally intubated with ET 7.5, 25 lipline. AC 10, 600, 30%. Right subclavian TLC. On Protonix drip. Bilateral upper arms edematous and weeping. Kept elevated with pads to absorb moisture. GT draining per gravity to drainable bag. With greenish output. Right abdomen ANGIE drain, kept on negative pressure. Abdominal surgical site open to air. Noted the mid abdomen with carmel intact, no bleeding. Bradley catheter to urimeter. Clear yellow urine. On P200 mattress. Seizure precautions. Head of bed elevated. Bed locked and in low position. Bed alarm on. Call light within reach.
--- NOTE | 2018-12-05 19:43 | NUR ---
RESPIRATORY NOTE: Received pt. on current AC vent settings with a 7.[address], measuring 25 at the lip. Pt is currently stable at this time. Vent alarms on and audible, ambu bag at bedside. Will continue to monitor.
[2018-12-05] MEDS: Dyna-Hex 2% Top Sol 2oz TOPIC SCH (20:04)
--- NOTE | 2018-12-05 21:45 | General Progress Note ---
Assessment/Plan Problem List: (1) Hyponatremia ICD Codes: E87.1 - Hypo-osmolality and hyponatremia SNOMED: 59986193 (2) Acute DVT (deep venous thrombosis) ICD Codes: I82.409 - Acute embolism and thrombosis of unspecified deep veins of unspecified lower extremity SNOMED: 774855580769157 (3) Decubitus skin ulcer ICD Codes: L89.90 - Pressure ulcer of unspecified site, unspecified stage SNOMED: 761381173 (4) Severe protein-calorie malnutrition ICD Codes: E43 - Unspecified severe protein-calorie malnutrition SNOMED: 551501683, 145916823, 524536504 (5) C. difficile colitis ICD Codes: A04.72 - Enterocolitis due to Clostridium difficile, not specified as recurrent SNOMED: 318994249 (6) Lower GI bleed ICD Codes: K92.2 - Gastrointestinal hemorrhage, unspecified SNOMED: 64422268 (7) UTI (urinary tract infection) ICD Codes: N39.0 - Urinary tract infection, site not specified SNOMED: 49465973, 000188795 Qualifiers: Qualified Codes: N30.00 - Acute cystitis without hematuria (8) HCAP (healthcare-associated pneumonia) ICD Codes: J18.9 - Pneumonia, unspecified organism SNOMED: 516082618, 397746248 (9) Anemia, chronic disease ICD Codes: D63.8 - Anemia in other chronic diseases classified elsewhere SNOMED: 902874517, 654445110 (10) Sepsis ICD Codes: A41.9 - Sepsis, unspecified organism SNOMED: 20250761, 038926836 Qualifiers: Qualified Codes: A41.9 - Sepsis, unspecified organism (11) COPD (chronic obstructive pulmonary disease) ICD Codes: J44.9 - Chronic obstructive pulmonary disease, unspecified SNOMED: 92098423 (12) Parkinson disease ICD Codes: G20 - Parkinson's disease SNOMED: 74612889 (13) Seizures ICD Codes: R56.9 - Unspecified convulsions SNOMED: 87688268 Status: progressing, unchanged Assessment/Plan: dvt sepsis and pna lyte abnormlaity anemia.stable h/h afebrile no wheezing abx per id no gi bleed Subjective ROS Limited/Unobtainable: Yes Allergies: Coded Allergies: No Known Allergies (Unverified , 11/18/18) Objective Last 24 Hour Vital Signs Date Time Temp Pulse Resp B/P (MAP) Pulse Ox O2 Delivery O2 Flow Rate FiO2 12/05/18 21:07 110 18 30 12/05/18 20:00 Mechanical Ventilator Mechanical Ventilator Mechanical Ventilator 12/05/18 19:15 115 19 30 12/05/18 19:00 114 18 112/63 (79) 98 12/05/18 18:00 105 16 99/71 (80) 95 12/05/18 17:21 139/91 12/05/18 17:00 98.8 107 20 139/91 (107) 97 12/05/18 16:54 123 19 30 12/05/18 16:45 30 12/05/18 16:00 98 15 116/74 (88) 100 12/05/18 16:00 Mechanical Ventilator Mechanical Ventilator Mechanical Ventilator 12/05/18 16:00 30 12/05/18 15:27 111 12/05/18 15:00 99 15 125/85 (98) 100 12/05/18 14:52 103 16 12/05/18 14:00 119 17 129/79 (96) 99 12/05/18 13:00 107 16 122/63 (82) 100 12/05/18 12:42 97 18 12/05/18 12:00 98.3 106 19 118/65 (82) 99 12/05/18 12:00 Mechanical Ventilator Mechanical Ventilator Mechanical Ventilator 12/05/18 12:00 30 12/05/18 11:46 101 12/05/18 11:00 111 18 136/100 (112) 99 12/05/18 10:52 101 20 12/05/18 10:00 124 22 111/73 (86) 99 12/05/18 09:35 30 12/05/18 09:33 30 12/05/18 09:29 100 12/05/18 09:27 126 19 30 12/05/18 09:00 116 18 116/67 (83) 100 12/05/18 08:40 115 12/05/18 08:00 Mechanical Ventilator Mechanical Ventilator Mechanical Ventilator 12/05/18 08:00 30 12/05/18 08:00 99.1 123 21 132/76 (94) 100 12/05/18 07:45 115 15 30 12/05/18 07:00 121 16 121/65 (83) 100 12/05/18 06:00 117 16 127/69 (88) 100 12/05/18 05:00 116 18 113/69 (84) 100 12/05/18 04:56 107 18 30 12/05/18 04:00 30 12/05/18 04:00 Mechanical Ventilator Mechanical Ventilator Mechanical Ventilator 12/05/18 04:00 99.1 127 23 110/65 (80) 97 12/05/18 04:00 140 12/05/18 03:00 114 17 106/60 (75) 98 12/05/18 02:36 112 16 30 12/05/18 02:00 120 19 115/67 (83) 100 12/05/18 01:07 115 22 30 12/05/18 01:00 123 17 117/61 (79) 100 12/05/18 00:00 99.0 111 16 112/67 (82) 100 12/05/18 00:00 Mechanical Ventilator Mechanical Ventilator Mechanical Ventilator 12/04/18 23:41 124 12/04/18 23:22 113 17 100 Mechanical Ventilator 30 12/04/18 23:20 113 17 30 12/04/18 23:00 118 18 114/73 (87) 100 12/04/18 22:00 111 14 117/55 (75) 100 Intake and Output 12/04/18 12/05/18 19:00 07:00 Intake Total 1685.0 ml 1300 ml Output Total 590 ml 377 ml Balance 1095.0 ml 923 ml IV Total 1635.0 ml 1300 ml Other 50 ml Output Urine Total 420 ml 320 ml Gastric Drainage Total 150 ml 50 ml Drainage Total 20 ml 7 ml # Bowel Movements 1 Laboratory Tests 12/05/18 04:50: White Blood Count 10.8, Red Blood Count 3.05L, Hemoglobin 9.5L, Hematocrit 28.2L , Mean Corpuscular Volume 92, Mean Corpuscular Hemoglobin 31.1H, Mean Corpuscular Hemoglobin Concent 33.7, Red Cell Distribution Width 16.7H, Platelet Count 148L, Mean Platelet Volume 6.3L, Neutrophils (%) (Auto) 84.6H, Lymphocytes (%) (Auto) 8.6L, Monocytes (%) (Auto) 5.4, Eosinophils (%) (Auto) 1.3, Basophils (%) (Auto) 0.2, Sodium Level 142, Potassium Level 3.2L, Chloride Level 112H, Carbon Dioxide Level 23, Anion Gap 7, Blood Urea Nitrogen 13, Creatinine 0.5L, Estimat Glomerular Filtration Rate , Glucose Level 114H, Uric Acid 5.2, Calcium Level 7.7L, Phosphorus Level 2.9, Magnesium Level 1.5L, Total Bilirubin 1.0, Aspartate Amino Transf (AST/SGOT) 10L, Alanine Aminotransferase ( ALT/SGPT) 15, Alkaline Phosphatase 51, C-Reactive Protein, Quantitative 16.3H, Pro-B-Type Natriuretic Peptide 2756H, Total Protein 3.9L, Albumin 1.6L, Globulin 2.3, Albumin/Globulin Ratio 0.7L 12/05/18 08:20: Arterial Blood pH 7.475H, Arterial Blood Partial Pressure CO2 27.7L, Arterial Blood Partial Pressure O2 86.9, Arterial Blood HCO3 19.9L, Arterial Blood Oxygen Saturation 96.5, Arterial Blood Base Excess -2.9L, Blake Test Positive Height (Feet): 5 Height (Inches): 5.00 Weight (Pounds): 132 Cardiovascular: regularly irregular Respiratory/Chest: lungs clear Yohana Garay MD Dec 05, 2018 21:45
--- NOTE | 2018-12-05 22:00 | NUR ---
NURSE NOTES: No shortness of breath. Patient repositioned. Secretions suctioned.
[2018-12-06] VITALS (24 sets, daily range): BP systolic 95–131; BP diastolic 58–81
--- NOTE | 2018-12-06 | NUR ---
NURSE NOTES: Patient asleep at this time. No signs of pain or discomfort. Abdominal surgical site dry with carmel intact. Good urine output. No seizure activity. Kept head of bed and extremities elevated.
--- NOTE | 2018-12-06 02:00 | NUR ---
NURSE NOTES: Sinus tach on the monitor. Afebrile
[2018-12-06] MEDS: Pantoprazole 80 MG in NS 250 ML IV SCH ×3 (02:18→22:35)
--- NOTE | 2018-12-06 04:00 | NUR ---
NURSE NOTES: Patient passed moderate amount of dark red stool. Bed bath, oral care, change of linens, change of dressing at sacral area done. Abdominal surgical site clean and dry, with carmel intact. Kept open to air as per order.
[2018-12-06] MEDS ORDERED: NS 275ml ONE ×3 (06:01→19:29)
--- NOTE | 2018-12-06 06:10 | Pulmonolgy Critical Care Note ---
Critical Care - Asmt/Plan Problems: (1) Hemorrhagic shocks (2) Status post exploratory laparotomy (3) Duodenal ulcer hemorrhage (4) SVT (supraventricular tachycardia) (5) HCAP (healthcare-associated pneumonia) (6) Acute DVT (deep venous thrombosis) (7) COPD (chronic obstructive pulmonary disease) (8) S/P insertion of IVC (inferior vena caval) filter (9) C. difficile colitis (10) Alzheimer's dementia (11) Parkinson disease (12) Feeding by G-tube (13) Seizures (14) Severe protein-calorie malnutrition Respiratory: adjust tidal volume, monitor respiratory rate, adjust FIO2, CXR, ABG, weaning trial Cardiac: continue to monitor HR/BP Renal: F/U I&O, keep IV fluid Infectious Disease: check cultures Gastrointestinal: continue feedings/current rate Endocrine: monitor blood sugar, check HgA1C Hematologic: monitor H/H, transfuse if hgb<8.5 Neurologic: PRN Morphine, keep patient comfortable Affect: PRN ativan Prophylaxis: Protonix, Heparin Notes Reviewed: tamale machine feeder, cardio Discussed with: nurses, consultants, outpatient case managerstore operations manager - Objective Last 24 Hour Vital Signs Date Time Temp Pulse Resp B/P (MAP) Pulse Ox O2 Delivery O2 Flow Rate FiO2 12/06/18 06:00 125 19 118/78 (91) 99 12/06/18 05:22 110 20 30 12/06/18 05:00 115 20 116/71 (86) 98 12/06/18 04:00 99.0 134 21 120/65 (83) 100 12/06/18 04:00 106 12/06/18 04:00 30 12/06/18 04:00 Mechanical Ventilator Mechanical Ventilator Mechanical Ventilator 12/06/18 03:05 117 16 30 12/06/18 03:00 119 14 120/71 (87) 99 12/06/18 02:00 115 16 113/69 (84) 98 12/06/18 01:25 113 16 30 12/06/18 01:00 116 16 112/73 (86) 97 12/06/18 00:00 30 12/06/18 00:00 102 12/06/18 00:00 Mechanical Ventilator Mechanical Ventilator Mechanical Ventilator 12/06/18 00:00 98.7 121 17 119/78 (92) 99 12/05/18 23:12 115 20 30 12/05/18 23:00 122 19 115/63 (80) 99 12/05/18 22:00 110 19 117/65 (82) 98 12/05/18 21:07 110 18 30 12/05/18 21:00 120 20 108/60 (76) 96 12/05/18 20:00 98.9 118 18 121/65 (83) 98 12/05/18 20:00 Mechanical Ventilator Mechanical Ventilator Mechanical Ventilator 12/05/18 20:00 121 12/05/18 20:00 30 12/05/18 19:15 115 19 30 12/05/18 19:00 114 18 112/63 (79) 98 12/05/18 18:00 105 16 99/71 (80) 95 12/05/18 17:21 139/91 12/05/18 17:00 98.8 107 20 139/91 (107) 97 12/05/18 16:54 123 19 30 12/05/18 16:45 30 12/05/18 16:00 98 15 116/74 (88) 100 12/05/18 16:00 Mechanical Ventilator Mechanical Ventilator Mechanical Ventilator 12/05/18 16:00 30 12/05/18 15:27 111 12/05/18 15:00 99 15 125/85 (98) 100 12/05/18 14:52 103 16 12/05/18 14:00 119 17 129/79 (96) 99 12/05/18 13:00 107 16 122/63 (82) 100 12/05/18 12:42 97 18 12/05/18 12:00 98.3 106 19 118/65 (82) 99 12/05/18 12:00 Mechanical Ventilator Mechanical Ventilator Mechanical Ventilator 12/05/18 12:00 30 12/05/18 11:46 101 12/05/18 11:00 111 18 136/100 (112) 99 12/05/18 10:52 101 20 12/05/18 10:00 124 22 111/73 (86) 99 12/05/18 09:35 30 12/05/18 09:33 30 12/05/18 09:29 100 12/05/18 09:27 126 19 30 12/05/18 09:00 116 18 116/67 (83) 100 12/05/18 08:40 115 12/05/18 08:00 Mechanical Ventilator Mechanical Ventilator Mechanical Ventilator 12/05/18 08:00 30 12/05/18 08:00 99.1 123 21 132/76 (94) 100 12/05/18 07:45 115 15 30 12/05/18 07:00 121 16 121/65 (83) 100 Status: awake Condition: critical HEENT: atraumatic Neck: full ROM Lungs: clear Heart: HR/BP stable, regular Abdomen: soft, non-tender, feeding tube Decubiti: location Micro: Microbiology Date/Time Source Procedure Growth Status 12/03/18 15:45 Blood Blood Culture - Preliminary NO GROWTH AFTER 48 HOURS Resulted 12/03/18 15:30 Blood Blood Culture - Preliminary NO GROWTH AFTER 48 HOURS Resulted 12/03/18 09:10 Sputum Gram Stain - Final Complete 12/03/18 09:10 Sputum Culture - Final Citrobacter Diversus Providencia Stuartii Complete 12/03/18 15:30 Urine,Clean Catch Urine Culture - Final NO GROWTH AFTER 48 HOURS Complete Critical Care - Subjective ROS Limited/Unobtainable: Yes Condition: critical EKG Rhythm: Sinus Rhythm FI02: 30 Vent Support Breath Rate: 10 Vent Support Mode: AC Vent Tidal Volume: 600 Sputum Amount: Small PEEP: 0.0 PIP: 23 Tube Feeding Amount: 0 I&O: Intake and Output 12/05/18 12/06/18 19:00 07:00 Intake Total 1473 ml 375 ml Output Total 2020 ml 2115 ml Balance -547 ml -1740 ml IV Total 1473 ml 375 ml Output Urine Total 1710 ml 1860 ml Gastric Drainage Total 300 ml 250 ml Drainage Total 10 ml 5 ml # Bowel Movements 2 2 CXR: no change ET-Tube: 7.5 ET Position: 25 Labs: Laboratory Tests Test 12/05/18 08:20 Arterial Blood pH 7.475 (7.350-7.450) Arterial Blood Partial Pressure CO2 27.7 mmHg (35.0-45.0) L Arterial Blood Partial Pressure O2 86.9 mmHg (75.0-100.0) Arterial Blood HCO3 19.9 mmol/L (22.0-26.0) L Arterial Blood Oxygen Saturation 96.5 % (95-100) Arterial Blood Base Excess -2.9 (-2-2) L Blake Test Positive David Carrasquillo MD Dec 06, 2018 06:10
--- NOTE | 2018-12-06 06:35 | NUR ---
NURSE NOTES: Received call from lab, patient sputum multi drug resistant. Called Dr. Winter, left a message. Awaiting for return call.
--- NOTE | 2018-12-06 07:00 | NUR ---
NURSE NOTES: Dr. Brown returned the call, updated of patient's current status. As per him no new orders at this time and he will see the patient tomorrow morning.
[2018-12-06 07:21] LABS: BASOPHILS % (AUTO) 0.3 % (0.0-2.0); EOSINOPHILS % (AUTO) 1.8 % (0.0-3.0); HEMATOCRIT 25.3 % (42.0-52.0); HEMOGLOBIN 8.4 G/DL (14.2-18.0); LYMPHOCYTES % (AUTO) 11.5 % (20.0-45.0); MEAN CORPUSCULAR VOLUME 93 FL (80-99); MONOCYTES % (AUTO) 6.2 % (1.0-10.0); NEUTROPHILS % (AUTO) 80.3 % (45.0-75.0); PLATELET COUNT 174 K/UL (150-450); RED BLOOD COUNT 2.72 M/UL (4.70-6.10); RED CELL DISTRIBUTION WIDTH 15.7 % (11.6-14.8); WHITE BLOOD COUNT 7.9 K/UL (4.8-10.8)
--- NOTE | 2018-12-06 07:23 | NUR ---
HAND-OFF: Report given to MONA Segal.
--- NOTE | 2018-12-06 07:30 | NUR ---
NURSE NOTES: Report received from MONA Cohen. Pt Opens eyes to name and light shaking. tracks with eyes. A/OX1. Afebrile 98.6 AX. pt on alarm security or surveillance monitor vs: HR 119 w/ PACs and PVC'S. BP 102/71. RR 14. gag present. Intubated ETT 7.5/25cm at lip line. AC 10, VT 600, FiO2 30%. O2 sat 98%. No respiratory distress noted.upper lobes diminished, lower lobes rhonchi and diminished. secretions small, clear/yellow. abdomen soft, flat. bowel sounds hypoactive. G-tube in place, draining green fluid to gravity. Abdominal carmel present, intact and RACHAEL. ANGIE drain RUQ, intact no drainage. strict NPO per MD order. weeping edema +2 bilateral arms, +4 bilateral legs. bilateral pedal pulses weak. Rt subclavian TLC patent and asymptomatic. Protonix running @ 25ml/hr. contact isolation in place. Bed locked and in lowest position. Side rails up x3, zone 1 bed alarm on. Will continue to implement plan of care.
--- NOTE | 2018-12-06 07:30 | Progress Note ---
DATE: 12/06/2018 SUBJECTIVE: The patient is a 73-year-old male with sepsis and pneumonia. He is still in the ICU. He has altered mental status, confusion, disorganized thought process, decline in cognition below his baseline. That is why, his attending has requested daily psychiatric consultation, but he continues to have some confusion, disorganized thought process, and that is why he does require an inpatient treatment at this time. That is why, he does require daily psychiatric consultation . He has altered mental status. His cognition has declined below his baseline. DIAGNOSIS: Major depressive disorder, mild, recurrent with psychotic features, rule out dementia with psychosis. PLAN: Treat this patient with medication regimen. We will continue treatment with psychotropic medications to stabilize his mood. Provided him with 20 minutes of behavioral management. Chart reviewed. Discussed with staff. Seen and assessed at bedside. Laith Mason M.D. DR: MILY JOB#: [id number] CC:
--- NOTE | 2018-12-06 07:42 | General Progress Note ---
Assessment/Plan Problem List: (1) Seizures ICD Codes: R56.9 - Unspecified convulsions SNOMED: 21478290 (2) Parkinson disease ICD Codes: G20 - Parkinson's disease SNOMED: 64793609 (3) Alzheimer's dementia ICD Codes: G30.9 - Alzheimer's disease, unspecified; F02.80 - Dementia in other diseases classified elsewhere without behavioral disturbance SNOMED: 04353121 (4) COPD (chronic obstructive pulmonary disease) ICD Codes: J44.9 - Chronic obstructive pulmonary disease, unspecified SNOMED: 61889352 (5) Feeding by G-tube ICD Codes: Z93.1 - Gastrostomy status SNOMED: 138357547, 230271071, 109221436 (6) Anemia, chronic disease ICD Codes: D63.8 - Anemia in other chronic diseases classified elsewhere SNOMED: 688955785, 308793916 Status: progressing, unchanged Assessment/Plan: Duodenal ulcer s/p SURG POD #4 npo iv ppi stable H&H will fu may need TPN if prolonged NPO status anticipated Subjective ROS Limited/Unobtainable: No Allergies: Coded Allergies: No Known Allergies (Unverified , 11/18/18) Objective Last 24 Hour Vital Signs Date Time Temp Pulse Resp B/P (MAP) Pulse Ox O2 Delivery O2 Flow Rate FiO2 12/06/18 07:23 112 18 30 12/06/18 06:00 125 19 118/78 (91) 99 12/06/18 05:22 110 20 30 12/06/18 05:00 115 20 116/71 (86) 98 12/06/18 04:00 99.0 134 21 120/65 (83) 100 12/06/18 04:00 106 12/06/18 04:00 30 12/06/18 04:00 Mechanical Ventilator Mechanical Ventilator Mechanical Ventilator 12/06/18 03:05 117 16 30 12/06/18 03:00 119 14 120/71 (87) 99 12/06/18 02:00 115 16 113/69 (84) 98 12/06/18 01:25 113 16 30 12/06/18 01:00 116 16 112/73 (86) 97 12/06/18 00:00 30 12/06/18 00:00 102 12/06/18 00:00 Mechanical Ventilator Mechanical Ventilator Mechanical Ventilator 12/06/18 00:00 98.7 121 17 119/78 (92) 99 12/05/18 23:12 115 20 30 12/05/18 23:00 122 19 115/63 (80) 99 12/05/18 22:00 110 19 117/65 (82) 98 12/05/18 21:07 110 18 30 12/05/18 21:00 120 20 108/60 (76) 96 12/05/18 20:00 98.9 118 18 121/65 (83) 98 12/05/18 20:00 Mechanical Ventilator Mechanical Ventilator Mechanical Ventilator 12/05/18 20:00 121 12/05/18 20:00 30 12/05/18 19:15 115 19 30 12/05/18 19:00 114 18 112/63 (79) 98 12/05/18 18:00 105 16 99/71 (80) 95 12/05/18 17:21 139/91 12/05/18 17:00 98.8 107 20 139/91 (107) 97 12/05/18 16:54 123 19 30 12/05/18 16:45 30 12/05/18 16:00 98 15 116/74 (88) 100 12/05/18 16:00 Mechanical Ventilator Mechanical Ventilator Mechanical Ventilator 12/05/18 16:00 30 12/05/18 15:27 111 12/05/18 15:00 99 15 125/85 (98) 100 12/05/18 14:52 103 16 12/05/18 14:00 119 17 129/79 (96) 99 12/05/18 13:00 107 16 122/63 (82) 100 12/05/18 12:42 97 18 12/05/18 12:00 98.3 106 19 118/65 (82) 99 12/05/18 12:00 Mechanical Ventilator Mechanical Ventilator Mechanical Ventilator 12/05/18 12:00 30 12/05/18 11:46 101 12/05/18 11:00 111 18 136/100 (112) 99 12/05/18 10:52 101 20 12/05/18 10:00 124 22 111/73 (86) 99 12/05/18 09:35 30 12/05/18 09:33 30 12/05/18 09:29 100 12/05/18 09:27 126 19 30 12/05/18 09:00 116 18 116/67 (83) 100 12/05/18 08:40 115 12/05/18 08:00 Mechanical Ventilator Mechanical Ventilator Mechanical Ventilator 12/05/18 08:00 30 12/05/18 08:00 99.1 123 21 132/76 (94) 100 12/05/18 07:45 115 15 30 Intake and Output 12/05/18 12/06/18 18:59 06:59 Intake Total 1548 ml 400 ml Output Total 1590 ml 2565 ml Balance -42 ml -2165 ml IV Total 1548 ml 400 ml Output Urine Total 1280 ml 2310 ml Gastric Drainage Total 300 ml 250 ml Drainage Total 10 ml 5 ml # Bowel Movements 2 2 Laboratory Tests 12/05/18 08:20: Arterial Blood pH 7.475H, Arterial Blood Partial Pressure CO2 27.7L, Arterial Blood Partial Pressure O2 86.9, Arterial Blood HCO3 19.9L, Arterial Blood Oxygen Saturation 96.5, Arterial Blood Base Excess -2.9L, Blake Test Positive 12/06/18 05:30: White Blood Count [Pending], Red Blood Count [Pending], Hemoglobin [Pending], Hematocrit [Pending], Mean Corpuscular Volume [Pending], Mean Corpuscular Hemoglobin [Pending], Mean Corpuscular Hemoglobin Concent [Pending], Red Cell Distribution Width [Pending], Platelet Count [Pending], Mean Platelet Volume [ Pending], Neutrophils (%) (Auto) [Pending], Lymphocytes (%) (Auto) [Pending], Monocytes (%) (Auto) [Pending], Eosinophils (%) (Auto) [Pending], Basophils (%) (Auto) [Pending], Sodium Level [Pending], Potassium Level [Pending], Chloride Level [Pending], Carbon Dioxide Level [Pending], Blood Urea Nitrogen [Pending], Creatinine [Pending], Estimat Glomerular Filtration Rate [Pending], Glucose Level [Pending], Calcium Level [Pending], Phosphorus Level [Pending], Magnesium Level [Pending], Total Bilirubin [Pending], Aspartate Amino Transf (AST/SGOT) [ Pending], Alanine Aminotransferase (ALT/SGPT) [Pending], Alkaline Phosphatase [ Pending], C-Reactive Protein, Quantitative [Pending], Pro-B-Type Natriuretic Peptide [Pending], Total Protein [Pending], Albumin [Pending], Globulin [Pending ] Height (Feet): 5 Height (Inches): 5.00 Weight (Pounds): 130 General Appearance: no apparent distress EENT: normal ENT inspection Neck: supple Cardiovascular: normal rate Respiratory/Chest: decreased breath sounds Abdomen: normal bowel sounds, non tender, soft Extremities: non-tender Deacon Dallas MD Dec 06, 2018 07:42
--- NOTE | 2018-12-06 07:43 | NUR ---
NURSE NOTES: MD. WONG HERE TO SEE PT. WAS UPDATED ON SMALL MAROON BM PER PM RN, REMAINS STRICT NPO, GT CONNECTED AND DRAINING BY GRAVITY. AFEBRILE AT 98.6. OK TO CHANGE TYLENOL GT TO RECTAL IF TEMP INCREASE CALLS FOR ADMINISTRATION.
--- NOTE | 2018-12-06 07:50 | General Progress Note ---
Assessment/Plan Problem List: (1) Acute DVT (deep venous thrombosis) ICD Codes: I82.409 - Acute embolism and thrombosis of unspecified deep veins of unspecified lower extremity SNOMED: 215853467496780 (2) UTI (urinary tract infection) ICD Codes: N39.0 - Urinary tract infection, site not specified SNOMED: 65836103, 318039057 Qualifiers: Qualified Codes: N30.00 - Acute cystitis without hematuria (3) Anemia, chronic disease ICD Codes: D63.8 - Anemia in other chronic diseases classified elsewhere SNOMED: 535974348, 739811765 (4) Parkinson disease ICD Codes: G20 - Parkinson's disease SNOMED: 50236886 (5) Alzheimer's dementia ICD Codes: G30.9 - Alzheimer's disease, unspecified; F02.80 - Dementia in other diseases classified elsewhere without behavioral disturbance SNOMED: 26346270 (6) COPD (chronic obstructive pulmonary disease) ICD Codes: J44.9 - Chronic obstructive pulmonary disease, unspecified SNOMED: 23533180 Status: stable, progressing Assessment/Plan: o2 pulm tx abx pt diet heme f/u cbc bmp am ltach eval Subjective Constitutional: Reports: weakness Allergies: Coded Allergies: No Known Allergies (Unverified , 11/18/18) All Systems: reviewed and negative except above Subjective intubated sedated in icu Objective Last 24 Hour Vital Signs Date Time Temp Pulse Resp B/P (MAP) Pulse Ox O2 Delivery O2 Flow Rate FiO2 12/06/18 07:23 112 18 30 12/06/18 06:00 125 19 118/78 (91) 99 12/06/18 05:22 110 20 30 12/06/18 05:00 115 20 116/71 (86) 98 12/06/18 04:00 99.0 134 21 120/65 (83) 100 12/06/18 04:00 106 12/06/18 04:00 30 12/06/18 04:00 Mechanical Ventilator Mechanical Ventilator Mechanical Ventilator 12/06/18 03:05 117 16 30 12/06/18 03:00 119 14 120/71 (87) 99 12/06/18 02:00 115 16 113/69 (84) 98 12/06/18 01:25 113 16 30 12/06/18 01:00 116 16 112/73 (86) 97 12/06/18 00:00 30 12/06/18 00:00 102 12/06/18 00:00 Mechanical Ventilator Mechanical Ventilator Mechanical Ventilator 12/06/18 00:00 98.7 121 17 119/78 (92) 99 12/05/18 23:12 115 20 30 12/05/18 23:00 122 19 115/63 (80) 99 12/05/18 22:00 110 19 117/65 (82) 98 12/05/18 21:07 110 18 30 12/05/18 21:00 120 20 108/60 (76) 96 12/05/18 20:00 98.9 118 18 121/65 (83) 98 12/05/18 20:00 Mechanical Ventilator Mechanical Ventilator Mechanical Ventilator 12/05/18 20:00 121 12/05/18 20:00 30 12/05/18 19:15 115 19 30 12/05/18 19:00 114 18 112/63 (79) 98 12/05/18 18:00 105 16 99/71 (80) 95 12/05/18 17:21 139/91 12/05/18 17:00 98.8 107 20 139/91 (107) 97 12/05/18 16:54 123 19 30 12/05/18 16:45 30 12/05/18 16:00 98 15 116/74 (88) 100 12/05/18 16:00 Mechanical Ventilator Mechanical Ventilator Mechanical Ventilator 12/05/18 16:00 30 12/05/18 15:27 111 12/05/18 15:00 99 15 125/85 (98) 100 12/05/18 14:52 103 16 12/05/18 14:00 119 17 129/79 (96) 99 12/05/18 13:00 107 16 122/63 (82) 100 12/05/18 12:42 97 18 12/05/18 12:00 98.3 106 19 118/65 (82) 99 12/05/18 12:00 Mechanical Ventilator Mechanical Ventilator Mechanical Ventilator 12/05/18 12:00 30 12/05/18 11:46 101 12/05/18 11:00 111 18 136/100 (112) 99 12/05/18 10:52 101 20 12/05/18 10:00 124 22 111/73 (86) 99 12/05/18 09:35 30 12/05/18 09:33 30 12/05/18 09:29 100 12/05/18 09:27 126 19 30 12/05/18 09:00 116 18 116/67 (83) 100 12/05/18 08:40 115 12/05/18 08:00 Mechanical Ventilator Mechanical Ventilator Mechanical Ventilator 12/05/18 08:00 30 12/05/18 08:00 99.1 123 21 132/76 (94) 100 Intake and Output 12/05/18 12/06/18 18:59 06:59 Intake Total 1548 ml 400 ml Output Total 1590 ml 2565 ml Balance -42 ml -2165 ml IV Total 1548 ml 400 ml Output Urine Total 1280 ml 2310 ml Gastric Drainage Total 300 ml 250 ml Drainage Total 10 ml 5 ml # Bowel Movements 2 2 Laboratory Tests 12/05/18 08:20: Arterial Blood pH 7.475H, Arterial Blood Partial Pressure CO2 27.7L, Arterial Blood Partial Pressure O2 86.9, Arterial Blood HCO3 19.9L, Arterial Blood Oxygen Saturation 96.5, Arterial Blood Base Excess -2.9L, Blake Test Positive 12/06/18 05:30: White Blood Count [Pending], Red Blood Count [Pending], Hemoglobin [Pending], Hematocrit [Pending], Mean Corpuscular Volume [Pending], Mean Corpuscular Hemoglobin [Pending], Mean Corpuscular Hemoglobin Concent [Pending], Red Cell Distribution Width [Pending], Platelet Count [Pending], Mean Platelet Volume [ Pending], Neutrophils (%) (Auto) [Pending], Lymphocytes (%) (Auto) [Pending], Monocytes (%) (Auto) [Pending], Eosinophils (%) (Auto) [Pending], Basophils (%) (Auto) [Pending], Sodium Level [Pending], Potassium Level [Pending], Chloride Level [Pending], Carbon Dioxide Level [Pending], Blood Urea Nitrogen [Pending], Creatinine [Pending], Estimat Glomerular Filtration Rate [Pending], Glucose Level [Pending], Calcium Level [Pending], Phosphorus Level [Pending], Magnesium Level [Pending], Total Bilirubin [Pending], Aspartate Amino Transf (AST/SGOT) [ Pending], Alanine Aminotransferase (ALT/SGPT) [Pending], Alkaline Phosphatase [ Pending], C-Reactive Protein, Quantitative [Pending], Pro-B-Type Natriuretic Peptide [Pending], Total Protein [Pending], Albumin [Pending], Globulin [Pending ] Height (Feet): 5 Height (Inches): 5.00 Weight (Pounds): 130 General Appearance: alert EENT: normal ENT inspection Neck: normal alignment Cardiovascular: normal peripheral pulses, normal rate, regular rhythm Respiratory/Chest: chest wall non-tender, lungs clear, normal breath sounds Abdomen: normal bowel sounds, non tender, soft Extremities: normal inspection Edema: 1+ Arm (L), 1+ Arm (R), 1+ Leg (L), 1+ Leg (R), 1+ Pedal (L), 1+ Pedal ( R), 1+ Generalized Neurologic: motor weakness Skin: normal pigmentation, warm/dry Abdullahi Gonzalez DO Dec 06, 2018 07:50
[2018-12-06 08:00] LABS: ALANINE AMINOTRANSFERASE 11 U/L (12-78); ALBUMIN 1.8 G/DL (3.4-5.0); ALBUMIN/GLOBULIN RATIO 0.8 (1.0-2.7); ALKALINE PHOSPHATASE 55 U/L (46-116); ANION GAP 8 mmol/L (5-15); ASPARTATE AMINO TRANSFERASE 10 U/L (15-37); BILIRUBIN,TOTAL 1.6 MG/DL (0.2-1.0); BLOOD UREA NITROGEN 10 mg/dL (7-18); CALCIUM 7.6 MG/DL (8.5-10.1); CARBON DIOXIDE 24 MMOL/L (21-32); CHLORIDE 113 MMOL/L (98-107); CREATININE 0.4 MG/DL (0.55-1.30); PHOSPHORUS 2.6 MG/DL (2.5-4.9); POTASSIUM 2.8 MMOL/L (3.5-5.1); SODIUM 145 MMOL/L (136-145)
[2018-12-06 08:01] LABS: BILIRUBIN,DIRECT 0.6 MG/DL (0.0-0.3)
--- NOTE | 2018-12-06 08:05 | NUR ---
NURSE NOTES: SKULL CHOPPER HERE TO DO CXR. PT BP 131/68, HR 118-123, 02SAT 98%. WILL CONTINUE TO MONITOR PT.
[2018-12-06] MEDS: Lactobacillus-GG tablet ORAL SCH ×3 (08:18→17:27)
[2018-12-06] MEDS: Vancomycin 500mg/D5W 110ml IVPB SCH ×4 (08:40→21:07)
[2018-12-06] MEDS: Dakin's 0.125% Soln (Quarter Strength) 16oz TOPIC SCH (08:42)
[2018-12-06] MEDS: Hydrocortisone 2.5% Cream - 30gm TOPIC SCH ×2 (08:43→21:07)
[2018-12-06] MEDS ORDERED: Tubing IV Secondary IV ONE ×2 (09:01→19:29)
[2018-12-06] MEDS: Morphine Sulfate 2mg/ml Inj(IV/IM USE ONLY) IVP PRN ×2 (09:04→18:42)
--- NOTE | 2018-12-06 09:10 | NUR ---
NURSE NOTES: R.T here to wean pt. Now on CPAP, PS 8,0 peep. will continue to monitor pt.
--- NOTE | 2018-12-06 09:24 | NUR ---
RADIOLOGY DEPT, CHEST X-RAY DONE.-P.DYE
--- NOTE | 2018-12-06 10:00 | NUR ---
NURSE NOTES: MD GLASGOW HERE TO SEE PT. INFORMED OF K 2.8, MG 1.7. WILL PLACE ORDER FOR REPLACEMENT. SLIGHT DECREASE IN H/H 8.4/25.3. CONTINUE TO MONITOR LEVELS.
--- NOTE | 2018-12-06 10:18 | Nephrology Progress Note ---
Assessment/Plan Problem List: (1) Hyponatremia Assessment: Na higher (2) UTI (urinary tract infection) (3) Anemia, chronic disease (4) Alzheimer's dementia (5) Parkinson disease (6) C. difficile colitis (7) Perforated duodenal ulcer Assessment Low Na corrected GI bleed transfused other conditions Pneumonia UTI, has grewal bacteremia sacral decub dementia HTN Sz disorder Parkinsons severe Anemia Plan Post OP care ( Laparatomy Op 12/02/18) Trial Albumin and Lasix to diurese PRN K and Mag and Phos supplement hemodynamic support Albumin bolus and transfusion for low BP as needed stop HypoTonic IV solution start maintenence IV fluid Urine studies Transfusion as needed Per orders roberto carlos khalil Subjective ROS Limited/Unobtainable: Yes Objective Objective Last 24 Hour Vital Signs Date Time Temp Pulse Resp B/P (MAP) Pulse Ox O2 Delivery O2 Flow Rate FiO2 12/06/18 09:08 108 17 30 12/06/18 09:07 100 12/06/18 09:00 124 15 122/81 (95) 98 12/06/18 08:00 117 13 131/68 (89) 97 12/06/18 08:00 30 12/06/18 07:23 112 18 30 12/06/18 07:00 98.6 119 14 102/71 (81) 98 12/06/18 06:00 125 19 118/78 (91) 99 12/06/18 05:22 110 20 30 12/06/18 05:00 115 20 116/71 (86) 98 12/06/18 04:00 99.0 134 21 120/65 (83) 100 12/06/18 04:00 106 12/06/18 04:00 30 12/06/18 04:00 Mechanical Ventilator Mechanical Ventilator Mechanical Ventilator 12/06/18 03:05 117 16 30 12/06/18 03:00 119 14 120/71 (87) 99 12/06/18 02:00 115 16 113/69 (84) 98 12/06/18 01:25 113 16 30 12/06/18 01:00 116 16 112/73 (86) 97 12/06/18 00:00 30 12/06/18 00:00 102 12/06/18 00:00 Mechanical Ventilator Mechanical Ventilator Mechanical Ventilator 12/06/18 00:00 98.7 121 17 119/78 (92) 99 12/05/18 23:12 115 20 30 12/05/18 23:00 122 19 115/63 (80) 99 12/05/18 22:00 110 19 117/65 (82) 98 12/05/18 21:07 110 18 30 12/05/18 21:00 120 20 108/60 (76) 96 12/05/18 20:00 98.9 118 18 121/65 (83) 98 12/05/18 20:00 Mechanical Ventilator Mechanical Ventilator Mechanical Ventilator 12/05/18 20:00 121 12/05/18 20:00 30 12/05/18 19:15 115 19 30 12/05/18 19:00 114 18 112/63 (79) 98 12/05/18 18:00 105 16 99/71 (80) 95 12/05/18 17:21 139/91 12/05/18 17:00 98.8 107 20 139/91 (107) 97 12/05/18 16:54 123 19 30 12/05/18 16:45 30 12/05/18 16:00 98 15 116/74 (88) 100 12/05/18 16:00 Mechanical Ventilator Mechanical Ventilator Mechanical Ventilator 12/05/18 16:00 30 12/05/18 15:27 111 12/05/18 15:00 99 15 125/85 (98) 100 12/05/18 14:52 103 16 12/05/18 14:00 119 17 129/79 (96) 99 12/05/18 13:00 107 16 122/63 (82) 100 12/05/18 12:42 97 18 12/05/18 12:00 98.3 106 19 118/65 (82) 99 12/05/18 12:00 Mechanical Ventilator Mechanical Ventilator Mechanical Ventilator 12/05/18 12:00 30 12/05/18 11:46 101 12/05/18 11:00 111 18 136/100 (112) 99 12/05/18 10:52 101 20 Intake and Output 12/05/18 12/06/18 18:59 06:59 Intake Total 1548 ml 400 ml Output Total 1590 ml 2565 ml Balance -42 ml -2165 ml IV Total 1548 ml 400 ml Output Urine Total 1280 ml 2310 ml Gastric Drainage Total 300 ml 250 ml Drainage Total 10 ml 5 ml # Bowel Movements 2 2 Laboratory Tests 12/06/18 05:30: White Blood Count 7.9, Red Blood Count 2.72L, Hemoglobin 8.4L, Hematocrit 25.3L , Mean Corpuscular Volume 93, Mean Corpuscular Hemoglobin 30.8, Mean Corpuscular Hemoglobin Concent 33.1, Red Cell Distribution Width 15.7H, Platelet Count 174, Mean Platelet Volume 6.6, Neutrophils (%) (Auto) 80.3H, Lymphocytes (%) (Auto) 11.5L, Monocytes (%) (Auto) 6.2, Eosinophils (%) (Auto) 1.8, Basophils (%) (Auto) 0.3, Sodium Level 145, Potassium Level 2.8L, Chloride Level 113H, Carbon Dioxide Level 24, Anion Gap 8, Blood Urea Nitrogen 10, Creatinine 0.4L, Estimat Glomerular Filtration Rate , Glucose Level 93, Calcium Level 7.6L, Phosphorus Level 2.6, Magnesium Level 1.7L, Total Bilirubin 1.6H, Direct Bilirubin 0.6H, Aspartate Amino Transf (AST/SGOT) 10L, Alanine Aminotransferase (ALT/SGPT) 11L, Alkaline Phosphatase 55, C-Reactive Protein, Quantitative 12.5H, Pro-B-Type Natriuretic Peptide 2720H, Total Protein 4.0L, Albumin 1.8L, Globulin 2.2, Albumin/Globulin Ratio 0.8L 12/06/18 07:46: Arterial Blood pH 7.520H, Arterial Blood Partial Pressure CO2 28.3L, Arterial Blood Partial Pressure O2 77.6, Arterial Blood HCO3 22.6, Arterial Blood Oxygen Saturation 95.2, Arterial Blood Base Excess 0.3, Blake Test Positive 12/06/18 08:00: Vancomycin Level Trough 6.4 Height (Feet): 5 Height (Inches): 5.00 Weight (Pounds): 130 General Appearance: no apparent distress EENT: other - vented Cardiovascular: tachycardia Respiratory/Chest: decreased breath sounds Abdomen: distended Objective no change Kendall Trinidad MD Dec 06, 2018 10:18
--- NOTE | 2018-12-06 10:20 | NUR ---
NURSE NOTES: MD TORO HERE TO SEE PT. NO NEW ORDERS AT THIS TIME.
--- NOTE | 2018-12-06 10:26 | Hematology/Onc Progress Note ---
Assessment/Plan Assessment/Plan Assessment/Plan # Anemia due to GI Bleed, other causes exist, multifactorial, is s/p lap site --> Anemia workup has been reviewed, FERRITIN 831 --> No evidence of hemolysis is noted, peripheral smear has been reviewed. --> Hgb goal >7. Transfuse prn. --> Epogen or iron at this time is not particularly indicated --> Medications have been reviewed --> low threshold for gi evaluation in case has occult +--> endoscopy and colo pending --> hgb trend: 7.4-->9.0-->9-->8.6->8.9-->6.1-->9.8--> 7.3->8.8-->9-->9.5-->8.4 --> EGD with duodenal bleed, s/p lap --> Blood tx: 1 unit 11/19, 11/27, 12/02 # Acute right leg DVT. Heparin drip DCed for rectal bleed. s/p IVC FILTER --> agree with need for this given coagulant contraindication --> appreciate gi and pulm/cc recs --> UPPER EXT DVT noted as well --> have discontinued eliquis given acute GI bleed on 11/27/18, ON HOLD --> in icu as of 11/27, remains # Thrombocytopenia likely related to infection --> trend plt 111k-->129k-->148k-->174k --> meds reviewed # Leukocytosis due to sepsis. --> Monitor for improvement --> urine and blood cultures are both positive, mrsa positive --> IV abx per id --> trend wbc 11.6--> 16-->8 # Sinus tach due to anemia and sepsis and beta danya withdrawal as was on Metoprolol 12.5 bid at [facility] --> per cards recs # Hypertension. Hold Metoprolol as BP is 90s. --> cloniditon per cards The timing of this note does not necessarily reflect the time of the patient was seen. GREATLY APPRECIATE CONSULTATION. Subjective Constitutional: Denies: no symptoms, chills, fever, malaise, weakness, other HEENT: Denies: no symptoms, eye pain, blurred vision, tearing, double vision, ear pain, ear discharge, nose pain, nose congestion, throat pain, throat swelling, mouth pain, mouth swelling, other Cardiovascular: Denies: no symptoms, chest pain, edema, irregular heart rate, lightheadedness, palpitations, syncope, other Respiratory: Denies: no symptoms, cough, shortness of breath, SOB with excertion, SOB at rest, sputum, wheezing, other Gastrointestinal/Abdominal: Denies: no symptoms, abdomen distended, abdominal pain, black stools, tarry stools, blood in stool, constipated, diarrhea, difficulty swallowing, nausea, poor appetite, poor fluid intake, rectal bleeding , vomiting, other Genitourinary: Denies: no symptoms, burning, discharge, frequency, flank pain, hematuria, incontinence, pain, urgency, other Neurologic/Psychiatric: Denies: no symptoms, anxiety, depressed, emotional problems, headache, numbness, paresthesia, pre-existing deficit, seizure, tingling, tremors, weakness, other Endocrine: Denies: no symptoms, excessive sweating, flushing, intolerance to cold, intolerance to heat, increased hunger, increased thirst, increased urine, unexplained weight gain, unexplained weight loss, other Allergies: Coded Allergies: No Known Allergies (Unverified , 11/18/18) Subjective Subjective 11/20: Colonoscopy for today. S/P 1 unit prbc. 11/21: Pt awake and nonverbal. Hgb at 7.4, blood tx ordered. 11/23: Pt no acute respiratory distress. CXR Increased bilateral lower lobe atelectasis or airspace consolidation. Underlying pneumonia may be present. Small bilateral pleural effusions. 11/24: no events, no f/c noted, no bleeding, anemia panel reviewed, s/p ivc filter 11/25: No acute events, no signs of distress. DC planning 11/26: no events, no bleeding, noted to have b/l upper ext dvt, acute started on elqiuis 11/27: sbo was ow in the am, transferred to the icu, hgb low requiring transfusion 11/28: Left UE edema > Right UE, s/p blood transfusion 11/27. 11/29:pt is on Venti mask, lethargic. 11/30:pt seen in am, with thick sputum per suctioning. 12/02: no events reported, hgb is better, seen by cards, pulm 12/03: no events, no chills, remains in icu 12/04: is off vanco po, remains in the icu, hgb 9 12/05: no events, no f/c, labs reviwed, on cpap 12/06: no events, bleeding improved, na is better as well Objective Objective Current Medications Medications (Trade) Dose Ordered Sig/Pauline Route PRN Reason Start Time Stop Time Status Last Admin Dose Admin Acetaminophen (Tylenol) 650 mg Q4H PRN GT T>100.5 11/27/18 18:18 12/22/18 18:17 12/03/18 13:02 Chlorhexidine Gluconate (Marycarmen-Hex 2%) 1 applic DAILY@1999 TOPIC 11/30/18 20:00 12/30/18 19:59 12/05/18 20:04 Dextrose (Dextrose 50%) 25 ml Q30M PRN IV Hypoglycemia 11/27/18 18:18 12/18/18 18:17 Dextrose (Dextrose 50%) 50 ml Q30M PRN IV Hypoglycemia 11/27/18 18:18 12/18/18 18:17 Hydralazine HCl (Apresoline) 10 mg Q4H PRN IV Systolic BP greater than 170 12/05/18 15:00 01/03/19 16:44 Hydrocortisone (Proctosol-HC Cream) 1 applic Q12HR TOPIC 12/02/18 13:00 01/01/19 12:59 12/06/18 08:43 Lactobacillus Acidophilus (Culturelle) 1 tab THREE TIMES A DAY ORAL 11/29/18 18:00 12/29/18 17:59 12/03/18 17:00 Magnesium Sulfate 100 ml @ 100 mls/hr Q1H IVPB 12/06/18 10:30 12/06/18 14:29 Metronidazole 100 ml @ 100 mls/hr Q8HR IVPB 12/04/18 14:00 12/11/18 13:59 12/06/18 05:47 Midazolam HCl (Versed 2mg/2ml vial) 1 mg Q1H PRN IVP SEDATION 12/02/18 20:30 01/01/19 20:29 Morphine Sulfate (Morphine Sulfate) 2 mg Q1H PRN IVP For Pain scale 4-7 12/02/18 20:23 7/16/19 20:22 12/06/18 09:04 Norepinephrine Bitartrate 8 mg/ Sodium Chloride 250 ml @ 0 mls/hr Q24H IV 12/03/18 18:03 01/02/19 18:02 12/03/18 18:09 Pantoprazole 80 mg/Sodium Chloride 250 ml @ 25 mls/hr Q10H IV 11/30/18 17:00 12/30/18 16:59 12/06/18 02:18 Potassium Chloride 100 ml @ 100 mls/hr Q1HR IVPB 12/06/18 10:00 12/06/18 15:59 Sodium Hypochlorite (Dakin's Quarter Strength) 1 applic DAILY TOPIC 12/04/18 12:00 01/03/19 11:59 12/06/18 08:42 Vancomycin HCl (Vanco rx to dose) 1 ea DAILY PRN MISC Per rx protocol 11/27/18 18:18 12/27/18 18:17 Vancomycin HCl 500 mg/Dextrose 110 ml @ 110 mls/hr Q12HR IVPB 12/06/18 09:00 12/11/18 08:59 12/06/18 08:40 Last 24 Hour Vital Signs Date Time Temp Pulse Resp B/P (MAP) Pulse Ox O2 Delivery O2 Flow Rate FiO2 12/06/18 09:08 108 17 30 12/06/18 09:07 100 12/06/18 09:00 124 15 122/81 (95) 98 12/06/18 08:00 117 13 131/68 (89) 97 12/06/18 08:00 30 12/06/18 07:23 112 18 30 12/06/18 07:00 98.6 119 14 102/71 (81) 98 12/06/18 06:00 125 19 118/78 (91) 99 12/06/18 05:22 110 20 30 12/06/18 05:00 115 20 116/71 (86) 98 12/06/18 04:00 99.0 134 21 120/65 (83) 100 12/06/18 04:00 106 12/06/18 04:00 30 12/06/18 04:00 Mechanical Ventilator Mechanical Ventilator Mechanical Ventilator 12/06/18 03:05 117 16 30 12/06/18 03:00 119 14 120/71 (87) 99 12/06/18 02:00 115 16 113/69 (84) 98 12/06/18 01:25 113 16 30 12/06/18 01:00 116 16 112/73 (86) 97 12/06/18 00:00 30 12/06/18 00:00 102 12/06/18 00:00 Mechanical Ventilator Mechanical Ventilator Mechanical Ventilator 12/06/18 00:00 98.7 121 17 119/78 (92) 99 12/05/18 23:12 115 20 30 12/05/18 23:00 122 19 115/63 (80) 99 12/05/18 22:00 110 19 117/65 (82) 98 12/05/18 21:07 110 18 30 12/05/18 21:00 120 20 108/60 (76) 96 12/05/18 20:00 98.9 118 18 121/65 (83) 98 12/05/18 20:00 Mechanical Ventilator Mechanical Ventilator Mechanical Ventilator 12/05/18 20:00 121 12/05/18 20:00 30 12/05/18 19:15 115 19 30 12/05/18 19:00 114 18 112/63 (79) 98 12/05/18 18:00 105 16 99/71 (80) 95 12/05/18 17:21 139/91 12/05/18 17:00 98.8 107 20 139/91 (107) 97 12/05/18 16:54 123 19 30 12/05/18 16:45 30 12/05/18 16:00 98 15 116/74 (88) 100 12/05/18 16:00 Mechanical Ventilator Mechanical Ventilator Mechanical Ventilator 12/05/18 16:00 30 12/05/18 15:27 111 12/05/18 15:00 99 15 125/85 (98) 100 12/05/18 14:52 103 16 12/05/18 14:00 119 17 129/79 (96) 99 12/05/18 13:00 107 16 122/63 (82) 100 12/05/18 12:42 97 18 12/05/18 12:00 98.3 106 19 118/65 (82) 99 12/05/18 12:00 Mechanical Ventilator Mechanical Ventilator Mechanical Ventilator 12/05/18 12:00 30 12/05/18 11:46 101 12/05/18 11:00 111 18 136/100 (112) 99 12/05/18 10:52 101 20 12/05/18 10:00 124 22 111/73 (86) 99 12/05/18 09:35 30 12/05/18 09:33 30 12/05/18 09:29 100 12/05/18 09:27 126 19 30 12/05/18 09:00 116 18 116/67 (83) 100 12/05/18 08:40 115 12/05/18 08:00 Mechanical Ventilator Mechanical Ventilator Mechanical Ventilator 12/05/18 08:00 30 12/05/18 08:00 99.1 123 21 132/76 (94) 100 12/05/18 07:45 115 15 30 12/05/18 07:00 121 16 121/65 (83) 100 12/05/18 06:00 117 16 127/69 (88) 100 12/05/18 05:00 116 18 113/69 (84) 100 12/05/18 04:56 107 18 30 12/05/18 04:00 30 12/05/18 04:00 Mechanical Ventilator Mechanical Ventilator Mechanical Ventilator 12/05/18 04:00 99.1 127 23 110/65 (80) 97 12/05/18 04:00 140 12/05/18 03:00 114 17 106/60 (75) 98 12/05/18 02:36 112 16 30 12/05/18 02:00 120 19 115/67 (83) 100 12/05/18 01:07 115 22 30 12/05/18 01:00 123 17 117/61 (79) 100 12/05/18 00:00 99.0 111 16 112/67 (82) 100 12/05/18 00:00 Mechanical Ventilator Mechanical Ventilator Mechanical Ventilator 12/04/18 23:41 124 12/04/18 23:22 113 17 100 Mechanical Ventilator 30 12/04/18 23:20 113 17 30 12/04/18 23:00 118 18 114/73 (87) 100 12/04/18 22:00 111 14 117/55 (75) 100 12/04/18 21:00 114 16 101/53 (69) 100 12/04/18 20:52 111 17 30 12/04/18 20:00 109 12/04/18 20:00 115 18 109/69 (82) 100 12/04/18 20:00 30 12/04/18 20:00 Mechanical Ventilator Mechanical Ventilator Mechanical Ventilator 12/04/18 19:12 112 19 30 12/04/18 19:00 108 13 109/60 (76) 100 12/04/18 18:03 117/67 12/04/18 18:00 124 18 117/67 (84) 100 12/04/18 17:00 107 16 124/66 (85) 100 12/04/18 16:45 114 15 30 12/04/18 16:00 98.6 103 16 111/61 (78) 100 12/04/18 16:00 30 12/04/18 16:00 97 12/04/18 15:45 114 15 30 12/04/18 15:00 105 16 118/80 (93) 100 12/04/18 14:30 96 18 30 12/04/18 14:00 95 14 124/78 (93) 100 12/04/18 13:08 30 12/04/18 13:05 102 23 30 12/04/18 13:00 102 17 109/69 (82) 100 12/04/18 12:00 99.3 106 15 110/60 (77) 100 12/04/18 12:00 30 12/04/18 12:00 102 12/04/18 12:00 Mechanical Ventilator Mechanical Ventilator Mechanical Ventilator 12/04/18 11:00 99 12 118/75 (89) 100 12/04/18 10:52 102 12 30 Intake and Output 12/05/18 12/06/18 18:59 06:59 Intake Total 1548 ml 400 ml Output Total 1590 ml 2565 ml Balance -42 ml -2165 ml IV Total 1548 ml 400 ml Output Urine Total 1280 ml 2310 ml Gastric Drainage Total 300 ml 250 ml Drainage Total 10 ml 5 ml # Bowel Movements 2 2 Labs Test 12/03/18 15:30 12/04/18 04:57 12/04/18 09:27 12/05/18 04:50 Urine Color Brown Urine Appearance Clear Urine pH 5 (4.5-8.0) Urine Specific [place] 1.020 (1.005-1.035) Urine Protein 2+ (NEGATIVE) Urine Glucose (UA) Negative (NEGATIVE) Urine Ketones Negative (NEGATIVE) Urine Blood 1+ (NEGATIVE) Urine Nitrite Negative (NEGATIVE) Urine Bilirubin Negative (NEGATIVE) Urine Urobilinogen Normal MG/DL (0.0-1.0) Urine Leukocyte Esterase 1+ (NEGATIVE) Urine RBC 2-4 /HPF (0 - 0) Urine WBC 2-4 /HPF (0 - 0) Urine Squamous Epithelial Cells None /LPF (NONE/OCC) Urine Bacteria Moderate /HPF (NONE) Urine Granular Casts 0-2 /LPF (NONE) White Blood Count 13.5 K/UL (4.8-10.8) 10.8 K/UL (4.8-10.8) Red Blood Count 2.92 M/UL (4.70-6.10) 3.05 M/UL (4.70-6.10) Hemoglobin 9.0 G/DL (14.2-18.0) 9.5 G/DL (14.2-18.0) Hematocrit 27.4 % (42.0-52.0) 28.2 % (42.0-52.0) Mean Corpuscular Volume 94 FL (80-99) 92 FL (80-99) Mean Corpuscular Hemoglobin 31.0 PG (27.0-31.0) 31.1 PG (27.0-31.0) Mean Corpuscular Hemoglobin Concent 33.0 G/DL (32.0-36.0) 33.7 G/DL (32.0-36.0) Red Cell Distribution Width 16.9 % (11.6-14.8) 16.7 % (11.6-14.8) Platelet Count 136 K/UL (150-450) 148 K/UL (150-450) Mean Platelet Volume 6.6 FL (6.5-10.1) 6.3 FL (6.5-10.1) Neutrophils (%) (Auto) % (45.0-75.0) 84.6 % (45.0-75.0) Lymphocytes (%) (Auto) % (20.0-45.0) 8.6 % (20.0-45.0) Monocytes (%) (Auto) % (1.0-10.0) 5.4 % (1.0-10.0) Eosinophils (%) (Auto) % (0.0-3.0) 1.3 % (0.0-3.0) Basophils (%) (Auto) % (0.0-2.0) 0.2 % (0.0-2.0) Sodium Level 144 MMOL/L (136-145) 142 MMOL/L (136-145) Potassium Level 3.0 MMOL/L (3.5-5.1) 3.2 MMOL/L (3.5-5.1) Chloride Level 114 MMOL/L (98-107) 112 MMOL/L (98-107) Carbon Dioxide Level 22 MMOL/L (21-32) 23 MMOL/L (21-32) Anion Gap 8 mmol/L (5-15) 7 mmol/L (5-15) Blood Urea Nitrogen 15 mg/dL (7-18) 13 mg/dL (7-18) Creatinine 0.5 MG/DL (0.55-1.30) 0.5 MG/DL (0.55-1.30) Estimat Glomerular Filtration Rate mL/min (>60) mL/min (>60) Glucose Level 130 MG/DL (74-106) 114 MG/DL (74-106) Lactic Acid Level 1.90 mmol/L (0.4-2.0) Uric Acid 5.0 MG/DL (2.6-7.2) 5.2 MG/DL (2.6-7.2) Calcium Level 7.8 MG/DL (8.5-10.1) 7.7 MG/DL (8.5-10.1) Phosphorus Level 2.1 MG/DL (2.5-4.9) 2.9 MG/DL (2.5-4.9) Magnesium Level 1.8 MG/DL (1.8-2.4) 1.5 MG/DL (1.8-2.4) Total Bilirubin 0.8 MG/DL (0.2-1.0) 1.0 MG/DL (0.2-1.0) Aspartate Amino Transf (AST/SGOT) 18 U/L (15-37) 10 U/L (15-37) Alanine Aminotransferase (ALT/SGPT) 15 U/L (12-78) 15 U/L (12-78) Alkaline Phosphatase 41 U/L (46-116) 51 U/L (46-116) Troponin I 0.178 ng/mL (0.000-0.056) C-Reactive Protein, Quantitative 15.1 mg/dL (0.00-0.90) 16.3 mg/dL (0.00-0.90) Pro-B-Type Natriuretic Peptide 5268 pg/mL (0-125) 2756 pg/mL (0-125) Total Protein 3.9 G/DL (6.4-8.2) 3.9 G/DL (6.4-8.2) Albumin 1.9 G/DL (3.4-5.0) 1.6 G/DL (3.4-5.0) Globulin 2.0 g/dL 2.3 g/dL Albumin/Globulin Ratio 0.9 (1.0-2.7) 0.7 (1.0-2.7) Digoxin Level 0.9 NG/ML (0.5-2.0) Arterial Blood pH 7.430 (7.350-7.450) Arterial Blood Partial Pressure CO2 29.9 mmHg (35.0-45.0) Arterial Blood Partial Pressure O2 102.6 mmHg (75.0-100.0) Arterial Blood HCO3 19.4 mmol/L (22.0-26.0) Arterial Blood Oxygen Saturation 97.0 % (95-100) Arterial Blood Base Excess -4.2 (-2-2) Blake Test Positive Test 12/05/18 08:20 12/06/18 05:30 12/06/18 07:46 12/06/18 08:00 Arterial Blood pH 7.475 (7.350-7.450) 7.520 (7.350-7.450) Arterial Blood Partial Pressure CO2 27.7 mmHg (35.0-45.0) 28.3 mmHg (35.0-45.0) Arterial Blood Partial Pressure O2 86.9 mmHg (75.0-100.0) 77.6 mmHg (75.0-100.0) Arterial Blood HCO3 19.9 mmol/L (22.0-26.0) 22.6 mmol/L (22.0-26.0) Arterial Blood Oxygen Saturation 96.5 % (95-100) 95.2 % (95-100) Arterial Blood Base Excess -2.9 (-2-2) 0.3 (-2-2) Blake Test Positive Positive White Blood Count 7.9 K/UL (4.8-10.8) Red Blood Count 2.72 M/UL (4.70-6.10) Hemoglobin 8.4 G/DL (14.2-18.0) Hematocrit 25.3 % (42.0-52.0) Mean Corpuscular Volume 93 FL (80-99) Mean Corpuscular Hemoglobin 30.8 PG (27.0-31.0) Mean Corpuscular Hemoglobin Concent 33.1 G/DL (32.0-36.0) Red Cell Distribution Width 15.7 % (11.6-14.8) Platelet Count 174 K/UL (150-450) Mean Platelet Volume 6.6 FL (6.5-10.1) Neutrophils (%) (Auto) 80.3 % (45.0-75.0) Lymphocytes (%) (Auto) 11.5 % (20.0-45.0) Monocytes (%) (Auto) 6.2 % (1.0-10.0) Eosinophils (%) (Auto) 1.8 % (0.0-3.0) Basophils (%) (Auto) 0.3 % (0.0-2.0) Sodium Level 145 MMOL/L (136-145) Potassium Level 2.8 MMOL/L (3.5-5.1) Chloride Level 113 MMOL/L (98-107) Carbon Dioxide Level 24 MMOL/L (21-32) Anion Gap 8 mmol/L (5-15) Blood Urea Nitrogen 10 mg/dL (7-18) Creatinine 0.4 MG/DL (0.55-1.30) Estimat Glomerular Filtration Rate mL/min (>60) Glucose Level 93 MG/DL (74-106) Calcium Level 7.6 MG/DL (8.5-10.1) Phosphorus Level 2.6 MG/DL (2.5-4.9) Magnesium Level 1.7 MG/DL (1.8-2.4) Total Bilirubin 1.6 MG/DL (0.2-1.0) Direct Bilirubin 0.6 MG/DL (0.0-0.3) Aspartate Amino Transf (AST/SGOT) 10 U/L (15-37) Alanine Aminotransferase (ALT/SGPT) 11 U/L (12-78) Alkaline Phosphatase 55 U/L (46-116) C-Reactive Protein, Quantitative 12.5 mg/dL (0.00-0.90) Pro-B-Type Natriuretic Peptide 2720 pg/mL (0-125) Total Protein 4.0 G/DL (6.4-8.2) Albumin 1.8 G/DL (3.4-5.0) Globulin 2.2 g/dL Albumin/Globulin Ratio 0.8 (1.0-2.7) Vancomycin Level Trough 6.4 ug/mL (5.0-12.0) Height (Feet): 5 Height (Inches): 5.00 Weight (Pounds): 130 Objective PE General Appearance: WD/WN HEENT: normocephalic, atraumatic Neck: non-tender, normal alignment Cardiovascular: normal peripheral pulses, normal rate, regular rhythm Resp: s/p vent++ Abdomen: normal bowel sounds, non tender ++ lap site noted Genitourinary/Rectal: normal genital exam, heme negative stool Extremities: normal range of motion Skin Exam: normal pigmentation Neurologic: neuropsychology director II-XII grossly normal Avery Giang MD Dec 06, 2018 10:26
--- NOTE | 2018-12-06 11:24 | NUR ---
NURSE NOTES: MD SEBASTIAN HERE TO SEE PT. WAS INFORMED OF STOOL COLOR AND CONSISTENCY, WILL BE EXPECTED FOR FEW DAYS. NOT READY TO START T.F AT THIS TIME. WILL CONTINUE TO IMPLEMENT PLAN OF CARE.
--- NOTE | 2018-12-06 12:00 | NUR ---
NURSE NOTES: INFORMED MD. GOMEZ OF WEANING CPAP, PS 8 SINCE 0900. INQUIRE ABOUT ABG POST WEANING TRAIL. RECEIVED REPLY NO ADDITIONAL ORDERS. PLAN TO EXTUBATE PT SATURDAY. R.T INFORMED.
--- NOTE | 2018-12-06 12:01 | Diagnostic Imaging Report ---
Indication: Dyspnea Comparison: 12/05/2018 A single view chest radiograph was obtained. Findings: Tubes and lines stable. Heart size is stable. Vascular edema noted centrally without change. 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
--- NOTE | 2018-12-06 13:00 | NUR ---
NURSE NOTES: VSS. PT CLEANED AND REPOSITIONED, HOB >30. SIDE RAILS PADDED, FEET ELEVATED ON PILLOWS. BED ALARM ON. CONTACT ISOLATION. WILL CONTINUE TO MONITOR PT.
--- NOTE | 2018-12-06 14:47 | Cardiac Electrophysiology PN ---
Assessment/Plan Assessment/Plan 1. Post op atrial fib with RVR 170s. Got Dig 0.25 iv. Strict NPO. Converted to SR with frequent PAC and PVCs 2. Septic and hemorrhagic shock . Levophed DCed. Echo EF 55% 3. Acute right leg DVT and Bilateral UE DVT. S/P IVC filter . Off Eliquis for severe anemia and GI bleed 4. Staph aureous bacteremia. Dr. Yee recommended FLORINA pending consent and patient stability 5. Parkinsonism. 6. COPD. 7. UTI. 8. Severe anemia and rectal bleed. S/P Colonoscopy on 11/20/18 and 11/29/18 and transfusion No obvious source. S/P EGD by Dr Dallas and Anterior duodenostomy for control of large posterior duodenal ulcer hemorrhage by Dr Eugene on 12/02/18 9. Seizure disorder. 10. S/P PEG DW RN Subjective Subjective In ICU intubated on the vent s/p anterior duodenostomy for control of large posterior duodenal ulcer hemorrhage. Developed atrial fib with RVR 170s. Got 0.5 iv digoxin. Converted to SR. No new events. No further bleeding. Objective Last 24 Hour Vital Signs Date Time Temp Pulse Resp B/P (MAP) Pulse Ox O2 Delivery O2 Flow Rate FiO2 12/06/18 13:49 105 28 30 12/06/18 13:00 103 15 114/59 (77) 99 12/06/18 12:00 99 12/06/18 12:00 Mechanical Ventilator Mechanical Ventilator Mechanical Ventilator 12/06/18 12:00 30 12/06/18 12:00 99.2 118 13 114/58 (76) 99 12/06/18 11:35 30 12/06/18 11:20 101 22 30 12/06/18 11:00 118 19 119/59 (79) 98 12/06/18 10:00 118 17 108/73 (85) 98 12/06/18 09:10 30 12/06/18 09:08 108 17 30 12/06/18 09:07 100 12/06/18 09:00 124 15 122/81 (95) 98 12/06/18 08:00 127 12/06/18 08:00 Mechanical Ventilator Mechanical Ventilator Mechanical Ventilator 12/06/18 08:00 117 13 131/68 (89) 97 12/06/18 08:00 30 12/06/18 07:23 112 18 30 12/06/18 07:00 98.6 119 14 102/71 (81) 98 12/06/18 06:00 125 19 118/78 (91) 99 12/06/18 05:22 110 20 30 12/06/18 05:00 115 20 116/71 (86) 98 12/06/18 04:00 99.0 134 21 120/65 (83) 100 12/06/18 04:00 106 12/06/18 04:00 30 12/06/18 04:00 Mechanical Ventilator Mechanical Ventilator Mechanical Ventilator 12/06/18 03:05 117 16 30 12/06/18 03:00 119 14 120/71 (87) 99 12/06/18 02:00 115 16 113/69 (84) 98 12/06/18 01:25 113 16 30 12/06/18 01:00 116 16 112/73 (86) 97 12/06/18 00:00 30 12/06/18 00:00 102 12/06/18 00:00 Mechanical Ventilator Mechanical Ventilator Mechanical Ventilator 12/06/18 00:00 98.7 121 17 119/78 (92) 99 12/05/18 23:12 115 20 30 12/05/18 23:00 122 19 115/63 (80) 99 12/05/18 22:00 110 19 117/65 (82) 98 12/05/18 21:07 110 18 30 12/05/18 21:00 120 20 108/60 (76) 96 12/05/18 20:00 98.9 118 18 121/65 (83) 98 12/05/18 20:00 Mechanical Ventilator Mechanical Ventilator Mechanical Ventilator 12/05/18 20:00 121 12/05/18 20:00 30 12/05/18 19:15 115 19 30 12/05/18 19:00 114 18 112/63 (79) 98 12/05/18 18:00 105 16 99/71 (80) 95 12/05/18 17:21 139/91 12/05/18 17:00 98.8 107 20 139/91 (107) 97 12/05/18 16:54 123 19 30 12/05/18 16:45 30 12/05/18 16:00 98 15 116/74 (88) 100 12/05/18 16:00 Mechanical Ventilator Mechanical Ventilator Mechanical Ventilator 12/05/18 16:00 30 12/05/18 15:27 111 12/05/18 15:00 99 15 125/85 (98) 100 12/05/18 14:52 103 16 Intake and Output 12/05/18 12/06/18 19:00 07:00 Intake Total 1473 ml 400 ml Output Total 2020 ml 2145 ml Balance -547 ml -1745 ml IV Total 1473 ml 400 ml Output Urine Total 1710 ml 1890 ml Gastric Drainage Total 300 ml 250 ml Drainage Total 10 ml 5 ml # Bowel Movements 2 2 Laboratory Tests Test 12/06/18 05:30 12/06/18 07:46 12/06/18 08:00 White Blood Count 7.9 K/UL (4.8-10.8) Red Blood Count 2.72 M/UL (4.70-6.10) L Hemoglobin 8.4 G/DL (14.2-18.0) L Hematocrit 25.3 % (42.0-52.0) L Mean Corpuscular Volume 93 FL (80-99) Mean Corpuscular Hemoglobin 30.8 PG (27.0-31.0) Mean Corpuscular Hemoglobin Concent 33.1 G/DL (32.0-36.0) Red Cell Distribution Width 15.7 % (11.6-14.8) H Platelet Count 174 K/UL (150-450) Mean Platelet Volume 6.6 FL (6.5-10.1) Neutrophils (%) (Auto) 80.3 % (45.0-75.0) H Lymphocytes (%) (Auto) 11.5 % (20.0-45.0) L Monocytes (%) (Auto) 6.2 % (1.0-10.0) Eosinophils (%) (Auto) 1.8 % (0.0-3.0) Basophils (%) (Auto) 0.3 % (0.0-2.0) Sodium Level 145 MMOL/L (136-145) Potassium Level 2.8 MMOL/L (3.5-5.1) L Chloride Level 113 MMOL/L (98-107) H Carbon Dioxide Level 24 MMOL/L (21-32) Anion Gap 8 mmol/L (5-15) Blood Urea Nitrogen 10 mg/dL (7-18) Creatinine 0.4 MG/DL (0.55-1.30) L Estimat Glomerular Filtration Rate mL/min (>60) Glucose Level 93 MG/DL (74-106) Calcium Level 7.6 MG/DL (8.5-10.1) L Phosphorus Level 2.6 MG/DL (2.5-4.9) Magnesium Level 1.7 MG/DL (1.8-2.4) L Total Bilirubin 1.6 MG/DL (0.2-1.0) H Direct Bilirubin 0.6 MG/DL (0.0-0.3) H Aspartate Amino Transf (AST/SGOT) 10 U/L (15-37) L Alanine Aminotransferase (ALT/SGPT) 11 U/L (12-78) L Alkaline Phosphatase 55 U/L (46-116) C-Reactive Protein, Quantitative 12.5 mg/dL (0.00-0.90) H Pro-B-Type Natriuretic Peptide 2720 pg/mL (0-125) H Total Protein 4.0 G/DL (6.4-8.2) L Albumin 1.8 G/DL (3.4-5.0) L Globulin 2.2 g/dL Albumin/Globulin Ratio 0.8 (1.0-2.7) L Arterial Blood pH 7.520 (7.350-7.450) Arterial Blood Partial Pressure CO2 28.3 mmHg (35.0-45.0) L Arterial Blood Partial Pressure O2 77.6 mmHg (75.0-100.0) Arterial Blood HCO3 22.6 mmol/L (22.0-26.0) Arterial Blood Oxygen Saturation 95.2 % (95-100) Arterial Blood Base Excess 0.3 (-2-2) Blake Test Positive Vancomycin Level Trough 6.4 ug/mL (5.0-12.0) Microbiology Date/Time Source Procedure Growth Status 12/03/18 15:45 Blood Blood Culture - Preliminary NO GROWTH AFTER 48 HOURS Resulted 12/03/18 15:30 Blood Blood Culture - Preliminary NO GROWTH AFTER 48 HOURS Resulted 12/03/18 15:30 Urine,Clean Catch Urine Culture - Final NO GROWTH AFTER 48 HOURS Complete Objective HEAD AND NECK: No JVD.Orally intubated LUNGS: Decreased breath sounds. CARDIOVASCULAR: Regular S1 and S2 with no gallop . ABDOMEN: Soft. G-tube intact. S/P Laparatomy with drain EXTREMITIES: Upper extremity and LE edema. Earl Washington MD Dec 06, 2018 14:47
--- NOTE | 2018-12-06 15:08 | NUR ---
NURSE NOTES: MD SCHULTE HERE TO SE PT. INFORMED OF HR 113-130'SAND RHYTHM PAC,PVC'S, MULTIFOCAL. REPLACED K AND MG TODAY. NO NEW ORDERS AT THIS TIME.
--- NOTE | 2018-12-06 17:00 | NUR ---
NURSE NOTES: pt 1 BM maroon color soft. cleaned and repositioned. ANGIE drain serosanguineous drain with 20ml, dark green drainage noted from g-tube to gravity with 200ml. patient remains awake able to follow simple commands, remains on ventilator settings at AC10, VT: 600 and FIo2 of 30%. will continue to monitor.
--- NOTE | 2018-12-06 18:00 | NUR ---
NURSE NOTES: pt pain 6/10 w/ double blink of eyes and flacc score: constant frown, legs uneasy and tense, body rigid, difficult to comfort. Morphine 2mg-1ml IVP administered per order. will continue to monitor pt.
--- NOTE | 2018-12-06 19:00 | NUR ---
HAND-OFF: Report given to ROD Cox pt in no acute distress.
--- NOTE | 2018-12-06 19:01 | NUR ---
NURSE NOTES: Endorsement received from MONA Segal. Patient opens eyes spontaneously, tracks and makes eye contact. Orally intubated with ET 7.5, 25 lipline. AC 10, 600, 30%. Right subclavian TLC. On Protonix drip. Bilateral upper arms edematous and weeping. Kept elevated with underpads to absorb moisture. GT draining per gravity to drainable bag. With greenish output. Right abdomen ANGIE drain, kept on negative pressure. Abdominal surgical site open to air. Noted the mid abdomen with carmel intact, no bleeding. Bradley catheter to urimeter. On P200 mattress. Seizure precautions. Head of bed elevated. Bed locked and in low position. Bed alarm on. Call light within reach.
[2018-12-06] MEDS: Dyna-Hex 2% Top Sol 2oz TOPIC SCH (19:45)
--- NOTE | 2018-12-06 20:35 | NUR ---
RESPIRATORY NOTE: Received pt. on 840 vent. Vent settings are: A/C rate of 10, Vt 600, FI02 30%. No respiratory distress noted, pt sP02 @ 100%. Ambu bag @ BS. Vent plugged on red outlet. Will continue to monitor pt.
--- NOTE | 2018-12-06 21:45 | NUR ---
NURSE NOTES: Patient continues on Protonix drip, previous bag not yet consumed. Unable to document on the IV spreadsheet since it was documented as "infused" from previous shift. Spoke with Pharmacist Debby, as per her to document on the nurses notes and scan the next bag to be able to document the succeeding infusion on the IV spreadsheet.
[2018-12-07] VITALS (24 sets, daily range): BP systolic 90–122; BP diastolic 55–83
--- NOTE | 2018-12-07 | NUR ---
NURSE NOTES: Patient asleep. Appears comfortable, no pain. No SOB. No bleeding noted. ANGIE drain kept at negative pressures, scant output noted. GT draining per gravity. HOB kept elevated. Will continue to monitor.
--- NOTE | 2018-12-07 02:00 | NUR ---
NURSE NOTES: Repositioned patient. Secretions suctioned.
--- NOTE | 2018-12-07 04:30 | NUR ---
NURSE NOTES: Patient passed small amount of soft dark red stool. Oral care, bed bath, change of linens and dressings done.
--- NOTE | 2018-12-07 06:00 | NUR ---
NURSE NOTES: Patient repositioned. Abdominal surgical site clean and dry.
--- NOTE | 2018-12-07 07:00 | NUR ---
RESPIRATORY NOTE: Received pt. on 840 vent; A/C , FI02 30%. No respiratory distress noted, pt sP02 @ 98%. Ambu bag @ BS. Vent plugged on red outlet. Alarms on and audible. Will continue to monitor pt.
[2018-12-07 07:12] LABS: BASOPHILS % (AUTO) 0.4 % (0.0-2.0); EOSINOPHILS % (AUTO) 1.4 % (0.0-3.0); HEMATOCRIT 25.2 % (42.0-52.0); HEMOGLOBIN 8.4 G/DL (14.2-18.0); LYMPHOCYTES % (AUTO) 8.4 % (20.0-45.0); MEAN CORPUSCULAR VOLUME 93 FL (80-99); MONOCYTES % (AUTO) 6.5 % (1.0-10.0); NEUTROPHILS % (AUTO) 83.4 % (45.0-75.0); PLATELET COUNT 204 K/UL (150-450); RED BLOOD COUNT 2.71 M/UL (4.70-6.10); RED CELL DISTRIBUTION WIDTH 16.3 % (11.6-14.8); WHITE BLOOD COUNT 9.7 K/UL (4.8-10.8)
--- NOTE | 2018-12-07 07:24 | General Progress Note ---
Assessment/Plan Problem List: (1) Seizures ICD Codes: R56.9 - Unspecified convulsions SNOMED: 86756950 (2) Parkinson disease ICD Codes: G20 - Parkinson's disease SNOMED: 83983119 (3) Alzheimer's dementia ICD Codes: G30.9 - Alzheimer's disease, unspecified; F02.80 - Dementia in other diseases classified elsewhere without behavioral disturbance SNOMED: 63331360 (4) COPD (chronic obstructive pulmonary disease) ICD Codes: J44.9 - Chronic obstructive pulmonary disease, unspecified SNOMED: 47977994 (5) Feeding by G-tube ICD Codes: Z93.1 - Gastrostomy status SNOMED: 140432266, 347657255, 235549292 (6) Anemia, chronic disease ICD Codes: D63.8 - Anemia in other chronic diseases classified elsewhere SNOMED: 797823244, 736736724 Status: stable, progressing Assessment/Plan: Duodenal ulcer s/p SURG POD #5 npo iv ppi stable H&H will fu may need TPN if prolonged NPO status anticipated Subjective ROS Limited/Unobtainable: No Allergies: Coded Allergies: No Known Allergies (Unverified , 11/18/18) Objective Last 24 Hour Vital Signs Date Time Temp Pulse Resp B/P (MAP) Pulse Ox O2 Delivery O2 Flow Rate FiO2 12/07/18 06:42 108 17 30 12/07/18 06:00 100 16 109/68 (82) 96 12/07/18 05:30 100 16 30 12/07/18 05:00 102 15 99/66 (77) 94 12/07/18 04:00 30 12/07/18 04:00 Mechanical Ventilator Mechanical Ventilator Mechanical Ventilator 12/07/18 04:00 104 15 90/55 (67) 93 12/07/18 04:00 105 12/07/18 03:36 103 14 30 12/07/18 03:00 96 13 107/58 (74) 97 12/07/18 02:00 96 12 102/70 (81) 98 12/07/18 01:24 102 14 30 12/07/18 01:00 102 13 101/63 (76) 98 12/07/18 00:00 Mechanical Ventilator Mechanical Ventilator Mechanical Ventilator 12/07/18 00:00 98.7 101 15 107/63 (78) 97 7/14/19 00:00 101 12/07/18 00:00 30 12/06/18 23:23 103 24 30 12/06/18 23:00 99 15 107/61 (76) 97 12/06/18 22:00 104 15 120/67 (84) 95 12/06/18 21:27 100 14 30 12/06/18 21:00 102 14 96/61 (73) 95 12/06/18 20:00 30 12/06/18 20:00 Mechanical Ventilator Mechanical Ventilator Mechanical Ventilator 12/06/18 20:00 114 12/06/18 20:00 99.0 113 22 122/71 (88) 98 12/06/18 19:47 99.0 12/06/18 19:10 99 21 30 12/06/18 19:00 108 20 98/67 (77) 95 12/06/18 18:00 115 23 95/68 (77) 97 12/06/18 17:02 100 15 30 12/06/18 17:00 107 14 118/76 (90) 98 12/06/18 16:00 30 12/06/18 16:00 Mechanical Ventilator Mechanical Ventilator Mechanical Ventilator 12/06/18 16:00 110 12/06/18 16:00 99.9 101 13 105/63 (77) 97 12/06/18 15:00 101 24 30 12/06/18 15:00 111 18 118/74 (89) 99 12/06/18 14:00 110 14 108/65 (79) 97 12/06/18 13:49 105 28 30 12/06/18 13:00 103 15 114/59 (77) 99 12/06/18 12:00 99 12/06/18 12:00 Mechanical Ventilator Mechanical Ventilator Mechanical Ventilator 12/06/18 12:00 30 12/06/18 12:00 99.2 118 13 114/58 (76) 99 12/06/18 11:35 30 12/06/18 11:20 101 22 30 12/06/18 11:00 118 19 119/59 (79) 98 12/06/18 10:00 118 17 108/73 (85) 98 12/06/18 09:10 30 12/06/18 09:08 108 17 30 12/06/18 09:07 100 12/06/18 09:00 124 15 122/81 (95) 98 12/06/18 08:00 127 7/13/19 08:00 Mechanical Ventilator Mechanical Ventilator Mechanical Ventilator 12/06/18 08:00 117 13 131/68 (89) 97 12/06/18 08:00 30 Intake and Output 12/06/18 12/07/18 19:00 07:00 Intake Total 1410 ml 410 ml Output Total 690 ml 479 ml Balance 720 ml -69 ml IV Total 1410 ml 410 ml Output Urine Total 470 ml 320 ml Gastric Drainage Total 200 ml 150 ml Drainage Total 20 ml 9 ml # Bowel Movements 5 1 Laboratory Tests 12/06/18 07:46: Arterial Blood pH 7.520H, Arterial Blood Partial Pressure CO2 28.3L, Arterial Blood Partial Pressure O2 77.6, Arterial Blood HCO3 22.6, Arterial Blood Oxygen Saturation 95.2, Arterial Blood Base Excess 0.3, Blake Test Positive 12/06/18 08:00: Vancomycin Level Trough 6.4 12/07/18 05:43: White Blood Count 9.7, Red Blood Count 2.71L, Hemoglobin 8.4L, Hematocrit 25.2L , Mean Corpuscular Volume 93, Mean Corpuscular Hemoglobin 31.0, Mean Corpuscular Hemoglobin Concent 33.3, Red Cell Distribution Width 16.3H, Platelet Count 204, Mean Platelet Volume 6.2L, Neutrophils (%) (Auto) 83.4H, Lymphocytes (%) (Auto) 8.4L, Monocytes (%) (Auto) 6.5, Eosinophils (%) (Auto) 1.4, Basophils (%) (Auto) 0.4, Sodium Level [Pending], Potassium Level [Pending] , Chloride Level [Pending], Carbon Dioxide Level [Pending], Blood Urea Nitrogen [Pending], Creatinine [Pending], Estimat Glomerular Filtration Rate [Pending], Glucose Level [Pending], Uric Acid [Pending], Calcium Level [Pending], Phosphorus Level [Pending], Magnesium Level [Pending], Total Bilirubin [Pending] , Aspartate Amino Transf (AST/SGOT) [Pending], Alanine Aminotransferase (ALT/ SGPT) [Pending], Alkaline Phosphatase [Pending], C-Reactive Protein, Quantitative [Pending], Pro-B-Type Natriuretic Peptide [Pending], Total Protein [Pending], Albumin [Pending], Globulin [Pending] 7/14/19 06:25: Arterial Blood pH 7.478H, Arterial Blood Partial Pressure CO2 29.9L, Arterial Blood Partial Pressure O2 65.5L, Arterial Blood HCO3 21.7L, Arterial Blood Oxygen Saturation 92.9L, Arterial Blood Base Excess -1.4, Blake Test Positive Height (Feet): 5 Height (Inches): 5.00 Weight (Pounds): 130 General Appearance: no apparent distress EENT: normal ENT inspection Neck: supple Cardiovascular: normal rate Respiratory/Chest: decreased breath sounds Abdomen: normal bowel sounds, non tender, soft Extremities: non-tender Deacon Dallas MD Dec 07, 2018 07:24
--- NOTE | 2018-12-07 07:33 | NUR ---
HAND-OFF: Report given to MONA Chong.
--- NOTE | 2018-12-07 07:34 | NUR ---
NURSE NOTES: RECEIVED PATIENT FROM Rick ESCALANTE RN. PATIENT IS SEEN LYING IN BED AWAKE, BUT NONVERBAL. HOOKED TO PRODUCTION LINE WELDER. ORALLY INTUBATED ETT 7.5 AT 25CM LIP LINE. VENT SETTINGS OF AC 10, TV 600, FiO2 30%, PEEP 0. NO SIGNS OF DISTRESS OF THE MOMENT. STRICT NPO. GT TUBE TO GRAVITY, NOTED GREENISH OUTPUT. WITH BUNDY CONNECTED TO BAG, PATENT. NOTED ANGIE DRAIN, ON NEGATIVE PRESSURE. SURGICAL SITE IS DRY AND NOTED AROUND 30 LUCI, OPEN TO AIR. SKIN ISSUES NOTED. NOTED TLC ON SC, WITH PROTONIX DRIP RUNNING AT 25ML/HR. CALL LIGHT WITHIN REACH. SIDE RAIL SUP. BED AT LOWEST POSITION. WILL CONTINUE TO MONITOR.
[2018-12-07 07:55] LABS: ALANINE AMINOTRANSFERASE 8 U/L (12-78); ALBUMIN 1.6 G/DL (3.4-5.0); ALBUMIN/GLOBULIN RATIO 0.7 (1.0-2.7); ALKALINE PHOSPHATASE 63 U/L (46-116); ANION GAP 9 mmol/L (5-15); ASPARTATE AMINO TRANSFERASE 12 U/L (15-37); BILIRUBIN,TOTAL 1.4 MG/DL (0.2-1.0); BLOOD UREA NITROGEN 7 mg/dL (7-18); CALCIUM 7.6 MG/DL (8.5-10.1); CARBON DIOXIDE 23 MMOL/L (21-32); CHLORIDE 113 MMOL/L (98-107); CREATININE 0.3 MG/DL (0.55-1.30); PHOSPHORUS 2.5 MG/DL (2.5-4.9); POTASSIUM 3.2 MMOL/L (3.5-5.1); SODIUM 145 MMOL/L (136-145)
[2018-12-07 08:02] LABS: BILIRUBIN,DIRECT 0.6 MG/DL (0.0-0.3)
--- NOTE | 2018-12-07 08:57 | NUR ---
NURSE NOTES: WEANING STARTED AROUND 0845, TOLERATED WITH PS OF 8. NO SIGNS OF DISTRESS OF THE MOMENT. WILL CONTINUE TO MONITOR.
[2018-12-07] MEDS: Pantoprazole 80 MG in NS 250 ML IV SCH (08:58)
[2018-12-07] MEDS: Hydrocortisone 2.5% Cream - 30gm TOPIC SCH ×2 (08:59→21:24)
[2018-12-07] MEDS: Vancomycin 500mg/D5W 110ml IVPB SCH ×2 (08:59)
[2018-12-07] MEDS: Lactobacillus-GG tablet ORAL SCH ×3 (08:59→17:01)
[2018-12-07] MEDS: Dakin's 0.125% Soln (Quarter Strength) 16oz TOPIC SCH (09:00)
--- NOTE | 2018-12-07 09:42 | General Progress Note ---
Assessment/Plan Problem List: (1) Acute DVT (deep venous thrombosis) ICD Codes: I82.409 - Acute embolism and thrombosis of unspecified deep veins of unspecified lower extremity SNOMED: 035057939839703 (2) UTI (urinary tract infection) ICD Codes: N39.0 - Urinary tract infection, site not specified SNOMED: 58217298, 453886982 Qualifiers: Qualified Codes: N30.00 - Acute cystitis without hematuria (3) Anemia, chronic disease ICD Codes: D63.8 - Anemia in other chronic diseases classified elsewhere SNOMED: 573124226, 735173548 (4) Parkinson disease ICD Codes: G20 - Parkinson's disease SNOMED: 70957998 (5) Alzheimer's dementia ICD Codes: G30.9 - Alzheimer's disease, unspecified; F02.80 - Dementia in other diseases classified elsewhere without behavioral disturbance SNOMED: 42533917 (6) COPD (chronic obstructive pulmonary disease) ICD Codes: J44.9 - Chronic obstructive pulmonary disease, unspecified SNOMED: 80510885 Status: stable, progressing Assessment/Plan: o2 pulm tx abx pt diet heme f/u cbc bmp am ltach eval Subjective Constitutional: Reports: weakness Allergies: Coded Allergies: No Known Allergies (Unverified , 11/18/18) All Systems: reviewed and negative except above Subjective intubated sedated in icu Objective Last 24 Hour Vital Signs Date Time Temp Pulse Resp B/P (MAP) Pulse Ox O2 Delivery O2 Flow Rate FiO2 12/07/18 08:47 113 18 30 30 12/07/18 08:45 97 12/07/18 08:44 105 19 30 12/07/18 08:00 98.4 107 17 110/81 (91) 96 12/07/18 08:00 Mechanical Ventilator Mechanical Ventilator Mechanical Ventilator 12/07/18 08:00 30 12/07/18 07:00 103 17 113/69 (84) 96 12/07/18 06:42 108 17 30 12/07/18 06:00 100 16 109/68 (82) 96 12/07/18 05:30 100 16 30 12/07/18 05:00 102 15 99/66 (77) 94 12/07/18 04:00 30 12/07/18 04:00 Mechanical Ventilator Mechanical Ventilator Mechanical Ventilator 12/07/18 04:00 104 15 90/55 (67) 93 12/07/18 04:00 105 12/07/18 03:36 103 14 30 12/07/18 03:00 96 13 107/58 (74) 97 12/07/18 02:00 96 12 102/70 (81) 98 12/07/18 01:24 102 14 30 12/07/18 01:00 102 13 101/63 (76) 98 12/07/18 00:00 Mechanical Ventilator Mechanical Ventilator Mechanical Ventilator 12/07/18 00:00 98.7 101 15 107/63 (78) 97 12/07/18 00:00 101 12/07/18 00:00 30 12/06/18 23:23 103 24 30 12/06/18 23:00 99 15 107/61 (76) 97 12/06/18 22:00 104 15 120/67 (84) 95 12/06/18 21:27 100 14 30 12/06/18 21:00 102 14 96/61 (73) 95 12/06/18 20:00 30 12/06/18 20:00 Mechanical Ventilator Mechanical Ventilator Mechanical Ventilator 12/06/18 20:00 114 12/06/18 20:00 99.0 113 22 122/71 (88) 98 12/06/18 19:47 99.0 12/06/18 19:10 99 21 30 12/06/18 19:00 108 20 98/67 (77) 95 12/06/18 18:00 115 23 95/68 (77) 97 12/06/18 17:02 100 15 30 12/06/18 17:00 107 14 118/76 (90) 98 12/06/18 16:00 30 12/06/18 16:00 Mechanical Ventilator Mechanical Ventilator Mechanical Ventilator 12/06/18 16:00 110 12/06/18 16:00 99.9 101 13 105/63 (77) 97 12/06/18 15:00 101 24 30 12/06/18 15:00 111 18 118/74 (89) 99 12/06/18 14:00 110 14 108/65 (79) 97 12/06/18 13:49 105 28 30 12/06/18 13:00 103 15 114/59 (77) 99 12/06/18 12:00 99 12/06/18 12:00 Mechanical Ventilator Mechanical Ventilator Mechanical Ventilator 12/06/18 12:00 30 12/06/18 12:00 99.2 118 13 114/58 (76) 99 12/06/18 11:35 30 12/06/18 11:20 101 22 30 12/06/18 11:00 118 19 119/59 (79) 98 12/06/18 10:00 118 17 108/73 (85) 98 Intake and Output 12/06/18 12/07/18 19:00 07:00 Intake Total 1410 ml 410 ml Output Total 690 ml 479 ml Balance 720 ml -69 ml IV Total 1410 ml 410 ml Output Urine Total 470 ml 320 ml Gastric Drainage Total 200 ml 150 ml Drainage Total 20 ml 9 ml # Bowel Movements 5 1 Laboratory Tests 12/07/18 05:43: White Blood Count 9.7, Red Blood Count 2.71L, Hemoglobin 8.4L, Hematocrit 25.2L , Mean Corpuscular Volume 93, Mean Corpuscular Hemoglobin 31.0, Mean Corpuscular Hemoglobin Concent 33.3, Red Cell Distribution Width 16.3H, Platelet Count 204, Mean Platelet Volume 6.2L, Neutrophils (%) (Auto) 83.4H, Lymphocytes (%) (Auto) 8.4L, Monocytes (%) (Auto) 6.5, Eosinophils (%) (Auto) 1.4, Basophils (%) (Auto) 0.4, Sodium Level 145, Potassium Level 3.2L, Chloride Level 113H, Carbon Dioxide Level 23, Anion Gap 9, Blood Urea Nitrogen 7, Creatinine 0.3L, Estimat Glomerular Filtration Rate , Glucose Level 93, Uric Acid 4.0, Calcium Level 7.6L, Phosphorus Level 2.5, Magnesium Level 1.8, Total Bilirubin 1.4H, Direct Bilirubin 0.6H, Aspartate Amino Transf (AST/SGOT) 12L, Alanine Aminotransferase (ALT/SGPT) 8L, Alkaline Phosphatase 63, C-Reactive Protein, Quantitative 11.3H, Pro-B-Type Natriuretic Peptide 1883H, Total Protein 4.0L, Albumin 1.6L, Globulin 2.4, Albumin/Globulin Ratio 0.7L 12/07/18 06:25: Arterial Blood pH 7.478H, Arterial Blood Partial Pressure CO2 29.9L, Arterial Blood Partial Pressure O2 65.5L, Arterial Blood HCO3 21.7L, Arterial Blood Oxygen Saturation 92.9L, Arterial Blood Base Excess -1.4, Blake Test Positive Height (Feet): 5 Height (Inches): 5.00 Weight (Pounds): 130 General Appearance: lethargic EENT: normal ENT inspection Neck: normal alignment Cardiovascular: normal peripheral pulses, normal rate, regular rhythm Respiratory/Chest: chest wall non-tender, lungs clear, normal breath sounds Abdomen: normal bowel sounds, non tender, soft Extremities: normal inspection Edema: 1+ Arm (L), 1+ Arm (R), 1+ Leg (L), 1+ Leg (R), 1+ Pedal (L), 1+ Pedal ( R), 1+ Generalized Edema: trace edema Neurologic: motor weakness Skin: normal pigmentation, warm/dry Abdullahi Gonzalez DO Dec 07, 2018 09:42
--- NOTE | 2018-12-07 09:46 | Infectious Diseases Prog Note ---
Assessment/Plan Assessment/Plan GIB- 2ry to actively bleeding Duodenal ulcer -12/02 SP exploratory laparotomy. Anterior duodenotomy for control of large posterior duodenal ulcer hemorrhage. closure of duodenotomy. pyloric exclusion with gastrojejunostomy abdominal washout. abdominal drain placement -12/02 SP EGD Shock likely hemorrhagic and septic component- now off presors -12/04 CXR: Suggestion of a slightly worsening vascular congestion -12/03 u/a neg, ucx NTD Bcx NTD -12/02 CXR: Slightly increased bilateral infiltrates Diarrhea CDiff + GI bleed 11/29 Colonscopy : Diverticulosis Sepsis -11/30 CT abd/p: Nonspecific trace free intraperitoneal fluid. No acute abdominal or pelvic process otherwise. Fairly extensive bilateral basilar pulmonary parenchymal consolidation and atelectasis. Bilateral small pleural effusions. Colonic diverticulosis. No evidence of diverticulitis. Gastrostomy. Nonobstructive 3 mm left intrarenal calyceal calculus. Prostatomegaly. Edema of the bilateral left greater than right subcutaneous fat. Fairly extensive chronic appearing bilateral hip degenerative changes, with bilateral joint effusions versus chronic synovial proliferation. Inferior vena cava filter -11/28 BCx Neg u/a no pyuria ucx Neg Pneumonia -CXR: Patchy bilateral infiltrates versus mixed interstitial alveolar edema noted. -sp cx MRSA, MDR P. stuarti (S Amikacin, Zosyn ; I cefepime; S ertapenem) Afebrile Leukocytosis; improving MRSA bacteremia- suspect 2ry to PNA- r/o endocarditis -11/18 Bcx 2/4 MRSA , 1/4 S. capitis, Diptheroids (these 2 are contaminants); BCx Neg -2d Echo:limited study (no vegetations) Probable UTI, sp Rx -u/a wbc 10-15, nit neg, leuk +2; ucx MDR ABC (S bactrim, gentamicin) Acute respiratory failure Sacral decubitus ulcer, necrotic, surrounding cellulitis GIB dementia HTN CKD COPD dysphagia s/p Gtube feeding Parkinson disease seizure disorder multiple decubiti wounds [facility] resident Plan: - Resume IV Flagyl #4 (abx d #02/07) for Cdiff given NPO status -Continue empiric IV Vancomycin #20/-28 for MRSA bacteremia and PNA -low threshold to start Zosyn if febrile, rising WBC and.or vent requirements/increase secretions -FLORINA pending -12/03 SP PO Vancomycin #5 (held as pt now is NPO) -12/02 SP Flagyl #4 -11/29 SP Zosyn #8 -11/27 SP Bactrim #7 -11/23 SP Cefepime #6 -11/18 SP Levaquin x1 -f/u cx -Monitor CBC/CMP, temperatures -GT care -aspiration precautions -wound care per surgical team -Recommend FLORINA -f/u ucx, Bcx x2, sp cx -ETT/ICU care -GI, Gen Sx f/u Subjective Allergies: Coded Allergies: No Known Allergies (Unverified , 11/18/18) Subjective Afebrile No Leukocytosis Objective Vital Signs Last 24 Hour Vital Signs Date Time Temp Pulse Resp B/P (MAP) Pulse Ox O2 Delivery O2 Flow Rate FiO2 12/07/18 08:47 113 18 30 30 12/07/18 08:45 97 12/07/18 08:44 105 19 30 12/07/18 08:00 98.4 107 17 110/81 (91) 96 12/07/18 08:00 Mechanical Ventilator Mechanical Ventilator Mechanical Ventilator 12/07/18 08:00 30 12/07/18 07:00 103 17 113/69 (84) 96 12/07/18 06:42 108 17 30 12/07/18 06:00 100 16 109/68 (82) 96 12/07/18 05:30 100 16 30 12/07/18 05:00 102 15 99/66 (77) 94 12/07/18 04:00 30 12/07/18 04:00 Mechanical Ventilator Mechanical Ventilator Mechanical Ventilator 12/07/18 04:00 104 15 90/55 (67) 93 12/07/18 04:00 105 12/07/18 03:36 103 14 30 12/07/18 03:00 96 13 107/58 (74) 97 12/07/18 02:00 96 12 102/70 (81) 98 12/07/18 01:24 102 14 30 12/07/18 01:00 102 13 101/63 (76) 98 12/07/18 00:00 Mechanical Ventilator Mechanical Ventilator Mechanical Ventilator 12/07/18 00:00 98.7 101 15 107/63 (78) 97 7/14/19 00:00 101 12/07/18 00:00 30 12/06/18 23:23 103 24 30 12/06/18 23:00 99 15 107/61 (76) 97 12/06/18 22:00 104 15 120/67 (84) 95 12/06/18 21:27 100 14 30 12/06/18 21:00 102 14 96/61 (73) 95 12/06/18 20:00 30 12/06/18 20:00 Mechanical Ventilator Mechanical Ventilator Mechanical Ventilator 12/06/18 20:00 114 12/06/18 20:00 99.0 113 22 122/71 (88) 98 12/06/18 19:47 99.0 12/06/18 19:10 99 21 30 12/06/18 19:00 108 20 98/67 (77) 95 12/06/18 18:00 115 23 95/68 (77) 97 12/06/18 17:02 100 15 30 12/06/18 17:00 107 14 118/76 (90) 98 12/06/18 16:00 30 12/06/18 16:00 Mechanical Ventilator Mechanical Ventilator Mechanical Ventilator 12/06/18 16:00 110 12/06/18 16:00 99.9 101 13 105/63 (77) 97 12/06/18 15:00 101 24 30 12/06/18 15:00 111 18 118/74 (89) 99 12/06/18 14:00 110 14 108/65 (79) 97 12/06/18 13:49 105 28 30 12/06/18 13:00 103 15 114/59 (77) 99 12/06/18 12:00 99 12/06/18 12:00 Mechanical Ventilator Mechanical Ventilator Mechanical Ventilator 12/06/18 12:00 30 12/06/18 12:00 99.2 118 13 114/58 (76) 99 12/06/18 11:35 30 12/06/18 11:20 101 22 30 12/06/18 11:00 118 19 119/59 (79) 98 12/06/18 10:00 118 17 108/73 (85) 98 Height (Feet): 5 Height (Inches): 5.00 Weight (Pounds): 130 Objective GEN: On Vent HEENT: NCAT, MMM, EOMI LUNGS: Coarse B/L Heart: RRR, S1, S2 Abd Soft. NT. ND Laboratory Tests Test 12/07/18 05:43 12/07/18 06:25 White Blood Count 9.7 K/UL (4.8-10.8) Red Blood Count 2.71 M/UL (4.70-6.10) L Hemoglobin 8.4 G/DL (14.2-18.0) L Hematocrit 25.2 % (42.0-52.0) L Mean Corpuscular Volume 93 FL (80-99) Mean Corpuscular Hemoglobin 31.0 PG (27.0-31.0) Mean Corpuscular Hemoglobin Concent 33.3 G/DL (32.0-36.0) Red Cell Distribution Width 16.3 % (11.6-14.8) H Platelet Count 204 K/UL (150-450) Mean Platelet Volume 6.2 FL (6.5-10.1) L Neutrophils (%) (Auto) 83.4 % (45.0-75.0) H Lymphocytes (%) (Auto) 8.4 % (20.0-45.0) L Monocytes (%) (Auto) 6.5 % (1.0-10.0) Eosinophils (%) (Auto) 1.4 % (0.0-3.0) Basophils (%) (Auto) 0.4 % (0.0-2.0) Sodium Level 145 MMOL/L (136-145) Potassium Level 3.2 MMOL/L (3.5-5.1) L Chloride Level 113 MMOL/L (98-107) H Carbon Dioxide Level 23 MMOL/L (21-32) Anion Gap 9 mmol/L (5-15) Blood Urea Nitrogen 7 mg/dL (7-18) Creatinine 0.3 MG/DL (0.55-1.30) L Estimat Glomerular Filtration Rate mL/min (>60) Glucose Level 93 MG/DL (74-106) Uric Acid 4.0 MG/DL (2.6-7.2) Calcium Level 7.6 MG/DL (8.5-10.1) L Phosphorus Level 2.5 MG/DL (2.5-4.9) Magnesium Level 1.8 MG/DL (1.8-2.4) Total Bilirubin 1.4 MG/DL (0.2-1.0) H Direct Bilirubin 0.6 MG/DL (0.0-0.3) H Aspartate Amino Transf (AST/SGOT) 12 U/L (15-37) L Alanine Aminotransferase (ALT/SGPT) 8 U/L (12-78) L Alkaline Phosphatase 63 U/L (46-116) C-Reactive Protein, Quantitative 11.3 mg/dL (0.00-0.90) H Pro-B-Type Natriuretic Peptide 1883 pg/mL (0-125) H Total Protein 4.0 G/DL (6.4-8.2) L Albumin 1.6 G/DL (3.4-5.0) L Globulin 2.4 g/dL Albumin/Globulin Ratio 0.7 (1.0-2.7) L Arterial Blood pH 7.478 (7.350-7.450) Arterial Blood Partial Pressure CO2 29.9 mmHg (35.0-45.0) L Arterial Blood Partial Pressure O2 65.5 mmHg (75.0-100.0) L Arterial Blood HCO3 21.7 mmol/L (22.0-26.0) L Arterial Blood Oxygen Saturation 92.9 % (95-100) L Arterial Blood Base Excess -1.4 (-2-2) Blkae Test Positive Current Medications Medications (Trade) Dose Ordered Sig/Pauline Route PRN Reason Start Time Stop Time Status Last Admin Dose Admin Acetaminophen (Tylenol) 650 mg Q4H PRN GT T>100.5 11/27/18 18:18 12/22/18 18:17 12/03/18 13:02 Chlorhexidine Gluconate (Marycarmen-Hex 2%) 1 applic DAILY@1999 TOPIC 11/30/18 20:00 12/30/18 19:59 12/06/18 19:45 Dextrose (Dextrose 50%) 25 ml Q30M PRN IV Hypoglycemia 11/27/18 18:18 12/18/18 18:17 Dextrose (Dextrose 50%) 50 ml Q30M PRN IV Hypoglycemia 11/27/18 18:18 12/18/18 18:17 Hydralazine HCl (Apresoline) 10 mg Q4H PRN IV Systolic BP greater than 170 12/05/18 15:00 01/03/19 16:44 Hydrocortisone (Proctosol-HC Cream) 1 applic Q12HR TOPIC 12/02/18 13:00 01/01/19 12:59 12/07/18 08:59 Lactobacillus Acidophilus (Culturelle) 1 tab THREE TIMES A DAY ORAL 11/29/18 18:00 12/29/18 17:59 12/03/18 17:00 Metronidazole 100 ml @ 100 mls/hr Q8HR IVPB 12/04/18 14:00 12/11/18 13:59 12/07/18 05:53 Midazolam HCl (Versed 2mg/2ml vial) 1 mg Q1H PRN IVP SEDATION 12/02/18 20:30 01/01/19 20:29 Morphine Sulfate (Morphine Sulfate) 2 mg Q1H PRN IVP For Pain scale 4-7 12/02/18 20:23 12/09/18 20:22 12/06/18 18:42 Norepinephrine Bitartrate 8 mg/ Sodium Chloride 250 ml @ 0 mls/hr Q24H IV 12/03/18 18:03 01/02/19 18:02 12/03/18 18:09 Pantoprazole 80 mg/Sodium Chloride 250 ml @ 25 mls/hr Q10H IV 11/30/18 17:00 12/30/18 16:59 12/07/18 08:58 Sodium Hypochlorite (Dakin's Quarter Strength) 1 applic DAILY TOPIC 12/04/18 12:00 01/03/19 11:59 12/07/18 09:00 Vancomycin HCl (Vanco rx to dose) 1 ea DAILY PRN MISC Per rx protocol 11/27/18 18:18 12/27/18 18:17 Vancomycin HCl 500 mg/Dextrose 110 ml @ 110 mls/hr Q12HR IVPB 12/06/18 09:00 12/11/18 08:59 12/07/18 08:59 Jewel Brown MD Dec 07, 2018 09:46
--- NOTE | 2018-12-07 10:54 | NUR ---
NURSE NOTES: PATIENT KEPT CLEAN AND DRY. NOTED MODERATE AMOUNT OF DARK RED STOOL. TOLERATING WEANING AT THIS TIME. NO SIGNS OF DISTRESS. PATIENT IS ABLE TO OPEN EYES AND TRACKS. WILL CONTINUE TO MONITOR.
--- NOTE | 2018-12-07 11:22 | NUR ---
RD ASSESSMENT & RECOMMENDATIONS SEE CARE ACTIVITY FOR COMPLETE ASSESSMENT DAILY ESTIMATED NEEDS: Needs based on Wounds, sepsis, critical care 60.5kg 25-30 kcals/kg 7939-1672 total kcals 1.25-2 g protein/kg 76-121 g total protein 25-30 mL/kg 2296-2470 total fluid mLs NUTRITION DIAGNOSIS: 1) Increased kcal and pro needs r/t wound healing as evidenced by pt w/ wounds, including unstageable sacral, full thickness spinal wound, DTPI BL heels. 2) Swallowing difficulty r/t dysphagia as evidenced by pt w/ Parkinsons dz, GT dependent. 3) Altered GI fxn r/t duodenal ulcer as evidenced by s/p ex lap w/ anterior duodenostomy, POD #5, NPO w/ GT to gravity. CURRENT TF:NPO, POD #5 ENTERAL NUTRITION RECOMMENDATIONS: Vital AF 1.2 @ 60ml/hr x24 hrs to provide 1440ml, 1728 kcal,108g pro, 1168ml free H2O - As medically able, start VITAL 1.2 for GI tolerance at 20ml/hr. - Increase goal rate slowly as tolerated to 60ml/hr x 24 hrs - Flush per MD/ HOB over 30 degrees ADDITIONAL RECOMMENDATIONS: 1) Per SNF: 5'6" ht, 133 lbs wt -> Rec re-calibrated bedscale wt for accurate CBW 2) Wound care: Add YOLI BID via GT + VIT C 250mg BID 3) Hypoglycemics prn/ niss 4) Monitor lytes, replete as needed 5) TPN w/ anticipated prolonged NPO status
--- NOTE | 2018-12-07 11:38 | NUR ---
NURSE NOTES: SEEN AND EXAMINED BY DR SEBASTIAN AND MADE AWARE OF DARK BLOODY STOOL AND GREENISH OUTPUT FROM GT TUBE. WILL CONTINUE TO MONITOR.
--- NOTE | 2018-12-07 11:45 | General Progress Note ---
Progress Note Progress Note tachycardia improved labs slowly improving abd exam stable drains stable cont with current care may require TPN. possible starting tube feeds soon will monitor Andrew Eugene Dec 07, 2018 11:45
--- NOTE | 2018-12-07 12:10 | NUR ---
NURSE NOTES: SEEN AND EXAMINED BY DR TRINIDAD. NO SIGNS OF DISTRESS. WILL CONTINUE TO MONITOR. Addendum: 12/07/18 at 1910 by Alaina Casarez RN Dr Trinidad made aware poor urine output and edema.Awaiting new order
--- NOTE | 2018-12-07 12:48 | Nephrology Progress Note ---
Assessment/Plan Problem List: (1) Hyponatremia Assessment: Na higher (2) UTI (urinary tract infection) (3) Anemia, chronic disease (4) Alzheimer's dementia (5) Parkinson disease (6) C. difficile colitis (7) Perforated duodenal ulcer Assessment Low Na corrected GI bleed transfused other conditions Pneumonia UTI, has grewal bacteremia sacral decub dementia HTN Sz disorder Parkinsons severe Anemia Plan Post OP care ( Laparatomy Op 12/02/18) Trial Albumin and Lasix to diurese PRN K and Mag and Phos supplement hemodynamic support Albumin bolus and transfusion for low BP as needed stop HypoTonic IV solution start maintenence IV fluid Urine studies Transfusion as needed Per orders roberto carlos khalil Subjective ROS Limited/Unobtainable: Yes Objective Objective Last 24 Hour Vital Signs Date Time Temp Pulse Resp B/P (MAP) Pulse Ox O2 Delivery O2 Flow Rate FiO2 12/07/18 12:00 Mechanical Ventilator Mechanical Ventilator Mechanical Ventilator 12/07/18 12:00 99.0 118 19 114/60 (78) 100 12/07/18 12:00 30 12/07/18 11:00 109 18 111/64 (80) 99 12/07/18 10:37 105 19 30 12/07/18 10:00 120 22 117/83 (94) 99 12/07/18 09:00 106 18 111/67 (82) 99 12/07/18 08:47 113 18 30 30 12/07/18 08:45 97 12/07/18 08:44 105 19 30 12/07/18 08:00 98.4 107 17 110/81 (91) 96 12/07/18 08:00 Mechanical Ventilator Mechanical Ventilator Mechanical Ventilator 12/07/18 08:00 30 12/07/18 08:00 102 12/07/18 07:00 103 17 113/69 (84) 96 12/07/18 06:42 108 17 30 12/07/18 06:00 100 16 109/68 (82) 96 12/07/18 05:30 100 16 30 12/07/18 05:00 102 15 99/66 (77) 94 12/07/18 04:00 30 12/07/18 04:00 Mechanical Ventilator Mechanical Ventilator Mechanical Ventilator 12/07/18 04:00 104 15 90/55 (67) 93 12/07/18 04:00 105 12/07/18 03:36 103 14 30 12/07/18 03:00 96 13 107/58 (74) 97 12/07/18 02:00 96 12 102/70 (81) 98 12/07/18 01:24 102 14 30 12/07/18 01:00 102 13 101/63 (76) 98 12/07/18 00:00 Mechanical Ventilator Mechanical Ventilator Mechanical Ventilator 12/07/18 00:00 98.7 101 15 107/63 (78) 97 12/07/18 00:00 101 12/07/18 00:00 30 12/06/18 23:23 103 24 30 12/06/18 23:00 99 15 107/61 (76) 97 12/06/18 22:00 104 15 120/67 (84) 95 12/06/18 21:27 100 14 30 12/06/18 21:00 102 14 96/61 (73) 95 12/06/18 20:00 30 12/06/18 20:00 Mechanical Ventilator Mechanical Ventilator Mechanical Ventilator 12/06/18 20:00 114 12/06/18 20:00 99.0 113 22 122/71 (88) 98 12/06/18 19:47 99.0 12/06/18 19:10 99 21 30 12/06/18 19:00 108 20 98/67 (77) 95 12/06/18 18:00 115 23 95/68 (77) 97 12/06/18 17:02 100 15 30 12/06/18 17:00 107 14 118/76 (90) 98 12/06/18 16:00 30 12/06/18 16:00 Mechanical Ventilator Mechanical Ventilator Mechanical Ventilator 12/06/18 16:00 110 12/06/18 16:00 99.9 101 13 105/63 (77) 97 12/06/18 15:00 101 24 30 12/06/18 15:00 111 18 118/74 (89) 99 12/06/18 14:00 110 14 108/65 (79) 97 12/06/18 13:49 105 28 30 12/06/18 13:00 103 15 114/59 (77) 99 Intake and Output 12/06/18 12/07/18 18:59 06:59 Intake Total 1435 ml 410 ml Output Total 685 ml 514 ml Balance 750 ml -104 ml IV Total 1435 ml 410 ml Output Urine Total 465 ml 355 ml Gastric Drainage Total 200 ml 150 ml Drainage Total 20 ml 9 ml # Bowel Movements 5 1 Laboratory Tests 12/07/18 05:43: White Blood Count 9.7, Red Blood Count 2.71L, Hemoglobin 8.4L, Hematocrit 25.2L , Mean Corpuscular Volume 93, Mean Corpuscular Hemoglobin 31.0, Mean Corpuscular Hemoglobin Concent 33.3, Red Cell Distribution Width 16.3H, Platelet Count 204, Mean Platelet Volume 6.2L, Neutrophils (%) (Auto) 83.4H, Lymphocytes (%) (Auto) 8.4L, Monocytes (%) (Auto) 6.5, Eosinophils (%) (Auto) 1.4, Basophils (%) (Auto) 0.4, Sodium Level 145, Potassium Level 3.2L, Chloride Level 113H, Carbon Dioxide Level 23, Anion Gap 9, Blood Urea Nitrogen 7, Creatinine 0.3L, Estimat Glomerular Filtration Rate , Glucose Level 93, Uric Acid 4.0, Calcium Level 7.6L, Phosphorus Level 2.5, Magnesium Level 1.8, Total Bilirubin 1.4H, Direct Bilirubin 0.6H, Aspartate Amino Transf (AST/SGOT) 12L, Alanine Aminotransferase (ALT/SGPT) 8L, Alkaline Phosphatase 63, C-Reactive Protein, Quantitative 11.3H, Pro-B-Type Natriuretic Peptide 1883H, Total Protein 4.0L, Albumin 1.6L, Globulin 2.4, Albumin/Globulin Ratio 0.7L 12/07/18 06:25: Arterial Blood pH 7.478H, Arterial Blood Partial Pressure CO2 29.9L, Arterial Blood Partial Pressure O2 65.5L, Arterial Blood HCO3 21.7L, Arterial Blood Oxygen Saturation 92.9L, Arterial Blood Base Excess -1.4, Blake Test Positive Height (Feet): 5 Height (Inches): 5.00 Weight (Pounds): 130 General Appearance: no apparent distress EENT: other - intubated Cardiovascular: tachycardia Respiratory/Chest: decreased breath sounds Abdomen: distended Objective no change Kendall Trinidad MD Dec 07, 2018 12:48
[2018-12-07] MEDS ORDERED: Pantoprazole Inj IVP SCH (13:00)
--- NOTE | 2018-12-07 14:30 | NUR ---
NURSE NOTES: TURNED AND REPOSITIONED PATIENT. TOLERATED WEANING FOR 2 HOURS. BACK ON AC MODE WITH SAME VENT SETTINGS. WILL CONTINUE TO MONITOR.
--- NOTE | 2018-12-07 14:30 | Diagnostic Imaging Report ---
Indication: Dyspnea Comparison: 12/06/2018 A single view chest radiograph was obtained. Findings: Patchy airspace disease noted in the perihilar basilar regions. There may be a small left pleural effusion now present. Tubes and lines are stable. Heart size is stable. IMPRESSION: Suspect mild congestion. Suspect new left pleural effusion
--- NOTE | 2018-12-07 16:30 | NUR ---
NURSE NOTES: TOLERATING VENT SETTINGS. NO SIGNS OF DISTRESS. WILL CONTINUE TO MONITOR.
[2018-12-07] MEDS ORDERED: NS 275ml ONE (17:12)
--- NOTE | 2018-12-07 18:31 | NUR ---
NURSE NOTES: PATIENT KEPT CLEAN AND DRY. NOTED MODERATE DARK STOOL AND DARK WESLY URINE. STILL NOTED GREENISH DRAINAGE FROM GT TUBE. NO SIGNS OF DISTRESS. WILL CONTINUE TO MONITOR.
--- NOTE | 2018-12-07 18:45 | Progress Note ---
DATE: 12/07/2018 SUBJECTIVE: This is a 73-year-old male. He was seen and assessed in the ICU, sepsis and pneumonia with altered mental status declined in cognition below his baseline. That is why, his attending physician has requested daily psychiatric consultation. further decline in cognition. DIAGNOSIS: Major depressive disorder, mild, recurrent with psychotic features, rule out dementia with psychosis. PLAN: Continue treatment with medications to improve his mood, to prevent any further decline in his cognition and stabilize his mood. Chart reviewed. Discussed with staff. A 20 minutes of behavioral management provided. Laith Mason M.D. DR: MILY JOB#: [id number] CC:
--- NOTE | 2018-12-07 19:12 | NUR ---
HAND-OFF: Report given to MONA Christina.
--- NOTE | 2018-12-07 19:30 | NUR ---
NURSE NOTES:Received pt with eyes open and with good eye contact, orally intubated on ac mode, , ST with occ pvcs on the monitor, Bp stable, afebrile, Abdominal drsg dry and intact, g tube to gravity with greenish yellow output moderate in amt. Saw to self suction with minimal pinkish drainage, grewal to gravity with minimal urine output. Dr Trinidad was aware, Monitor I and O. Monitor lytes, pt has stage 4 pressure sore sacral area and bilateral heel dTi as well as rangel skin tear, All with drsg dry and intact., Pt on overlay mattress, turned q 2hrs prn with good skin care done.. NPO at this time. Oral care done. will continue to monitor.
--- NOTE | 2018-12-07 19:44 | Cardiac Electrophysiology PN ---
Assessment/Plan Assessment/Plan 1. Post op atrial fib with RVR 170s. Got Dig 0.25 iv. Strict NPO. Converted to SR with frequent PAC and PVCs 2. S/P Septic and hemorrhagic shock . Off pressors . Echo EF 55% 3. Acute right leg DVT and Bilateral UE DVT. S/P IVC filter . Off Eliquis for severe anemia and GI bleed 4. Staph aureous bacteremia. On Abx per Dr Yee FLORINA pending consent and patient stability 5. Parkinsonism. 6. COPD. 7. UTI. 8. Severe anemia and rectal bleed. S/P Colonoscopy on 11/20/18 and 11/29/18 and transfusion No obvious source. S/P EGD by Dr Dallas and Anterior duodenostomy for control of large posterior duodenal ulcer hemorrhage by Dr Eugene on 12/02/18 9. Seizure disorder. 10. S/P PEG DW RN Subjective Subjective In ICU intubated on the vent in SR. No new events. No further bleeding. Objective Last 24 Hour Vital Signs Date Time Temp Pulse Resp B/P (MAP) Pulse Ox O2 Delivery O2 Flow Rate FiO2 12/07/18 19:00 112 19 103/61 (75) 98 12/07/18 18:00 113 20 95/59 (71) 93 12/07/18 17:29 126 24 30 12/07/18 17:01 102/71 12/07/18 17:00 115 20 112/74 (87) 100 12/07/18 16:00 Mechanical Ventilator Mechanical Ventilator Mechanical Ventilator 12/07/18 16:00 115 12/07/18 16:00 45 12/07/18 16:00 98.7 115 21 102/71 (81) 98 12/07/18 15:12 116 19 30 12/07/18 15:00 103 18 102/74 (83) 97 12/07/18 14:00 105 17 122/70 (87) 99 12/07/18 13:21 109 14 30 12/07/18 13:00 113 17 118/71 (87) 99 12/07/18 12:00 Mechanical Ventilator Mechanical Ventilator Mechanical Ventilator 12/07/18 12:00 99.0 118 19 114/60 (78) 100 12/07/18 12:00 104 12/07/18 12:00 45 12/07/18 11:00 109 18 111/64 (80) 99 12/07/18 10:37 105 19 30 12/07/18 10:00 120 22 117/83 (94) 99 12/07/18 09:00 106 18 111/67 (82) 99 12/07/18 08:47 113 18 30 30 12/07/18 08:45 97 12/07/18 08:44 105 19 30 12/07/18 08:00 98.4 107 17 110/81 (91) 96 12/07/18 08:00 Mechanical Ventilator Mechanical Ventilator Mechanical Ventilator 12/07/18 08:00 30 12/07/18 08:00 102 12/07/18 07:00 103 17 113/69 (84) 96 12/07/18 06:42 108 17 30 12/07/18 06:00 100 16 109/68 (82) 96 12/07/18 05:30 100 16 30 12/07/18 05:00 102 15 99/66 (77) 94 12/07/18 04:00 30 12/07/18 04:00 Mechanical Ventilator Mechanical Ventilator Mechanical Ventilator 12/07/18 04:00 104 15 90/55 (67) 93 12/07/18 04:00 105 12/07/18 03:36 103 14 30 12/07/18 03:00 96 13 107/58 (74) 97 12/07/18 02:00 96 12 102/70 (81) 98 12/07/18 01:24 102 14 30 12/07/18 01:00 102 13 101/63 (76) 98 12/07/18 00:00 Mechanical Ventilator Mechanical Ventilator Mechanical Ventilator 12/07/18 00:00 98.7 101 15 107/63 (78) 97 12/07/18 00:00 101 12/07/18 00:00 30 12/06/18 23:23 103 24 30 12/06/18 23:00 99 15 107/61 (76) 97 12/06/18 22:00 104 15 120/67 (84) 95 12/06/18 21:27 100 14 30 12/06/18 21:00 102 14 96/61 (73) 95 12/06/18 20:00 30 12/06/18 20:00 Mechanical Ventilator Mechanical Ventilator Mechanical Ventilator 12/06/18 20:00 114 12/06/18 20:00 99.0 113 22 122/71 (88) 98 12/06/18 19:47 99.0 Intake and Output 12/06/18 12/07/18 19:00 07:00 Intake Total 1410 ml 535 ml Output Total 690 ml 479 ml Balance 720 ml 56 ml IV Total 1410 ml 535 ml Output Urine Total 470 ml 320 ml Gastric Drainage Total 200 ml 150 ml Drainage Total 20 ml 9 ml # Bowel Movements 5 1 Laboratory Tests Test 12/07/18 05:43 12/07/18 06:25 White Blood Count 9.7 K/UL (4.8-10.8) Red Blood Count 2.71 M/UL (4.70-6.10) L Hemoglobin 8.4 G/DL (14.2-18.0) L Hematocrit 25.2 % (42.0-52.0) L Mean Corpuscular Volume 93 FL (80-99) Mean Corpuscular Hemoglobin 31.0 PG (27.0-31.0) Mean Corpuscular Hemoglobin Concent 33.3 G/DL (32.0-36.0) Red Cell Distribution Width 16.3 % (11.6-14.8) H Platelet Count 204 K/UL (150-450) Mean Platelet Volume 6.2 FL (6.5-10.1) L Neutrophils (%) (Auto) 83.4 % (45.0-75.0) H Lymphocytes (%) (Auto) 8.4 % (20.0-45.0) L Monocytes (%) (Auto) 6.5 % (1.0-10.0) Eosinophils (%) (Auto) 1.4 % (0.0-3.0) Basophils (%) (Auto) 0.4 % (0.0-2.0) Sodium Level 145 MMOL/L (136-145) Potassium Level 3.2 MMOL/L (3.5-5.1) L Chloride Level 113 MMOL/L (98-107) H Carbon Dioxide Level 23 MMOL/L (21-32) Anion Gap 9 mmol/L (5-15) Blood Urea Nitrogen 7 mg/dL (7-18) Creatinine 0.3 MG/DL (0.55-1.30) L Estimat Glomerular Filtration Rate mL/min (>60) Glucose Level 93 MG/DL (74-106) Uric Acid 4.0 MG/DL (2.6-7.2) Calcium Level 7.6 MG/DL (8.5-10.1) L Phosphorus Level 2.5 MG/DL (2.5-4.9) Magnesium Level 1.8 MG/DL (1.8-2.4) Total Bilirubin 1.4 MG/DL (0.2-1.0) H Direct Bilirubin 0.6 MG/DL (0.0-0.3) H Aspartate Amino Transf (AST/SGOT) 12 U/L (15-37) L Alanine Aminotransferase (ALT/SGPT) 8 U/L (12-78) L Alkaline Phosphatase 63 U/L (46-116) C-Reactive Protein, Quantitative 11.3 mg/dL (0.00-0.90) H Pro-B-Type Natriuretic Peptide 1883 pg/mL (0-125) H Total Protein 4.0 G/DL (6.4-8.2) L Albumin 1.6 G/DL (3.4-5.0) L Globulin 2.4 g/dL Albumin/Globulin Ratio 0.7 (1.0-2.7) L Arterial Blood pH 7.478 (7.350-7.450) Arterial Blood Partial Pressure CO2 29.9 mmHg (35.0-45.0) L Arterial Blood Partial Pressure O2 65.5 mmHg (75.0-100.0) L Arterial Blood HCO3 21.7 mmol/L (22.0-26.0) L Arterial Blood Oxygen Saturation 92.9 % (95-100) L Arterial Blood Base Excess -1.4 (-2-2) Blake Test Positive Objective HEAD AND NECK: No JVD.Orally intubated LUNGS: Decreased breath sounds. CARDIOVASCULAR: Regular S1 and S2 with no gallop . ABDOMEN: Soft. G-tube intact. S/P Laparatomy with drain EXTREMITIES: Upper extremity and LE edema. Earl Washington MD Dec 07, 2018 19:44
[2018-12-07] MEDS: Dyna-Hex 2% Top Sol 2oz TOPIC SCH (20:13)
[2018-12-07] MEDS: Pantoprazole Inj IVP SCH (21:23)
[2018-12-07] MEDS: Vancomycin 750mg/NS 275ml IVPB SCH ×2 (21:24)
--- NOTE | 2018-12-07 21:30 | NUR ---
NURSE NOTES:Suctioned tn beige secretions moderate in amt. oral care done. Keep Hob elevated. watch for any resp. distress.
--- NOTE | 2018-12-07 23:30 | NUR ---
NURSE NOTES:bp stable ST on the monitor afebrile.
[2018-12-08] VITALS (24 sets, daily range): BP systolic 97–126; BP diastolic 50–100
--- NOTE | 2018-12-08 01:00 | NUR ---
NURSE NOTES:Sacral drsg was changed , wound appeared improving.
--- NOTE | 2018-12-08 03:00 | NUR ---
NURSE NOTES:Complete bath with bed changed done. upper extremities still oozing with bodily fluid.
--- NOTE | 2018-12-08 05:00 | NUR ---
NURSE NOTES:still nPo oral care done
[2018-12-08 05:39] LABS: HEMATOCRIT 23.8 % (42.0-52.0); MEAN CORPUSCULAR VOLUME 94 FL (80-99); PLATELET COUNT 200 K/UL (150-450); RED BLOOD COUNT 2.52 M/UL (4.70-6.10); RED CELL DISTRIBUTION WIDTH 15.8 % (11.6-14.8); WHITE BLOOD COUNT 11.5 K/UL (4.8-10.8)
--- NOTE | 2018-12-08 06:00 | NUR ---
NURSE NOTES:More awake. Vss.
[2018-12-08 06:09] LABS: ALANINE AMINOTRANSFERASE 7 U/L (12-78); ALBUMIN 1.5 G/DL (3.4-5.0); ALBUMIN/GLOBULIN RATIO 0.7 (1.0-2.7); ALKALINE PHOSPHATASE 65 U/L (46-116); ANION GAP 9 mmol/L (5-15); ASPARTATE AMINO TRANSFERASE 10 U/L (15-37); BILIRUBIN,TOTAL 1.5 MG/DL (0.2-1.0); BLOOD UREA NITROGEN 9 mg/dL (7-18); CALCIUM 7.3 MG/DL (8.5-10.1); CARBON DIOXIDE 23 MMOL/L (21-32); CHLORIDE 110 MMOL/L (98-107); CREATININE 0.5 MG/DL (0.55-1.30); PHOSPHORUS 2.3 MG/DL (2.5-4.9); POTASSIUM 3.1 MMOL/L (3.5-5.1); SODIUM 142 MMOL/L (136-145)
--- NOTE | 2018-12-08 07:10 | NUR ---
RESPIRATORY NOTE: Received pt on [id number]%- no peep Pt is awake. Pt is orally intubated with ETT 7.5 @ 25cm lips line, secured by anchor fast. Mauricio Rhonchi B/S heard upon auscultation, suctioned moderate amount of thick yellow green secretions without incidents. Oral care done. Alarms are set ad audible, vent is plugged into the red outlet, ambu bag at bedside. Vent circuits and sxn tubing are patent and out of way. Pt is resting in bed, no SOB or resp distress noted at this time. Will continue to monitor pt.
--- NOTE | 2018-12-08 07:22 | NUR ---
NURSE NOTES:no resp. distress noted .VSS
--- NOTE | 2018-12-08 07:23 | NUR ---
HAND-OFF: Report given to Erum DUNN.
[2018-12-08 07:28] LABS: BILIRUBIN,DIRECT 0.9 MG/DL (0.0-0.3)
--- NOTE | 2018-12-08 07:39 | NUR ---
NURSE NOTES: Report received from Carri DUNN. Pt awake, opens eyes, and follows simple commands. Pt ST on youth nutritional monitor. Pt orally intubated ETT 7.5, 25 cm at right lipline. AC 10. TV 600, 45%, 0 PEEP. Pt kept NPO at this time. GT noted to gravity draining greenish liquid. Bradley noted and intact with tea colored urine. Abdominal incision with carmel, clean, dry and intact. ANGIE drain on right abdomen with minimal serosanguineous output. Sacral stage IV with dressing clean, dry and intact. Right subclavian noted with TKO. Safety measures in place with bed locked and in lowest position, side rails x 3 up and bed alarm on. Will continue to monitor and continue plan of care.
[2018-12-08] MEDS: Lactobacillus-GG tablet ORAL SCH ×3 (08:19→17:26)
[2018-12-08] MEDS: Pantoprazole Inj IVP SCH ×2 (08:35→20:52)
[2018-12-08] MEDS: Vancomycin 750mg/NS 275ml IVPB SCH ×4 (08:35→20:51)
[2018-12-08] MEDS: Hydrocortisone 2.5% Cream - 30gm TOPIC SCH ×2 (08:36→20:52)
[2018-12-08] MEDS: Dakin's 0.125% Soln (Quarter Strength) 16oz TOPIC SCH (08:37)
--- NOTE | 2018-12-08 09:18 | General Progress Note ---
Assessment/Plan Problem List: (1) Acute DVT (deep venous thrombosis) ICD Codes: I82.409 - Acute embolism and thrombosis of unspecified deep veins of unspecified lower extremity SNOMED: 432022291031791 (2) UTI (urinary tract infection) ICD Codes: N39.0 - Urinary tract infection, site not specified SNOMED: 74382188, 270995484 Qualifiers: Qualified Codes: N30.00 - Acute cystitis without hematuria (3) Anemia, chronic disease ICD Codes: D63.8 - Anemia in other chronic diseases classified elsewhere SNOMED: 482701911, 190021354 (4) Parkinson disease ICD Codes: G20 - Parkinson's disease SNOMED: 45053675 (5) Alzheimer's dementia ICD Codes: G30.9 - Alzheimer's disease, unspecified; F02.80 - Dementia in other diseases classified elsewhere without behavioral disturbance SNOMED: 07723366 (6) COPD (chronic obstructive pulmonary disease) ICD Codes: J44.9 - Chronic obstructive pulmonary disease, unspecified SNOMED: 61767384 Status: stable, progressing Assessment/Plan: o2 pulm tx abx pt diet heme f/u cbc bmp am ltach eval Subjective Constitutional: Reports: weakness Allergies: Coded Allergies: No Known Allergies (Unverified , 11/18/18) All Systems: reviewed and negative except above Subjective intubated sedated in icu Objective Last 24 Hour Vital Signs Date Time Temp Pulse Resp B/P (MAP) Pulse Ox O2 Delivery O2 Flow Rate FiO2 12/08/18 08:00 45 12/08/18 08:00 Mechanical Ventilator Mechanical Ventilator Mechanical Ventilator 12/08/18 08:00 99.2 112 16 98/77 (84) 97 12/08/18 08:00 116 12/08/18 07:10 117 14 30 12/08/18 07:00 111 20 108/69 (82) 98 12/08/18 06:00 117 20 110/70 (83) 98 12/08/18 05:09 115 15 30 12/08/18 05:00 115 18 114/76 (89) 98 12/08/18 04:00 45 12/08/18 04:00 98.6 114 18 100/65 (77) 98 12/08/18 04:00 Mechanical Ventilator Mechanical Ventilator Mechanical Ventilator 12/08/18 04:00 114 12/08/18 03:09 112 20 40 12/08/18 03:00 117 20 98/65 (76) 98 12/08/18 02:00 107 20 97/68 (78) 98 12/08/18 01:16 113 21 40 12/08/18 01:00 118 20 113/66 (82) 98 12/08/18 00:00 45 12/08/18 00:00 Mechanical Ventilator Mechanical Ventilator Mechanical Ventilator 12/08/18 00:00 98.4 118 19 110/66 (81) 98 12/07/18 23:19 113 22 40 12/07/18 23:00 120 19 107/66 (80) 98 12/07/18 22:00 115 19 112/70 (84) 98 12/07/18 21:30 111 22 35 12/07/18 21:00 115 19 102/68 (79) 98 12/07/18 20:30 111 12/07/18 20:00 98.6 111 19 103/66 (78) 98 12/07/18 20:00 45 12/07/18 20:00 Mechanical Ventilator Mechanical Ventilator Mechanical Ventilator 12/07/18 19:30 113 19 35 12/07/18 19:00 112 19 103/61 (75) 98 12/07/18 18:00 113 20 95/59 (71) 93 12/07/18 17:29 126 24 30 12/07/18 17:01 102/71 12/07/18 17:00 115 20 112/74 (87) 100 12/07/18 16:00 Mechanical Ventilator Mechanical Ventilator Mechanical Ventilator 12/07/18 16:00 115 12/07/18 16:00 45 12/07/18 16:00 98.7 115 21 102/71 (81) 98 12/07/18 15:12 116 19 30 12/07/18 15:00 103 18 102/74 (83) 97 12/07/18 14:00 105 17 122/70 (87) 99 12/07/18 13:21 109 14 30 12/07/18 13:00 113 17 118/71 (87) 99 12/07/18 12:00 Mechanical Ventilator Mechanical Ventilator Mechanical Ventilator 12/07/18 12:00 99.0 118 19 114/60 (78) 100 12/07/18 12:00 104 12/07/18 12:00 45 12/07/18 11:00 109 18 111/64 (80) 99 12/07/18 10:37 105 19 30 12/07/18 10:00 120 22 117/83 (94) 99 Intake and Output 12/07/18 12/08/18 19:00 07:00 Intake Total 730 ml 466.66 ml Output Total 140 ml 600 ml Balance 590 ml -133.34 ml IV Total 730 ml 466.66 ml Output Urine Total 140 ml 390 ml Gastric Drainage Total 200 ml Drainage Total 10 ml # Bowel Movements 5 2 Laboratory Tests 12/07/18 20:00: Vancomycin Level Trough 10.1 12/08/18 04:20: White Blood Count 11.5H, Red Blood Count 2.52L, Hemoglobin 8.0L, Hematocrit 23.8L, Mean Corpuscular Volume 94, Mean Corpuscular Hemoglobin 31.7H, Mean Corpuscular Hemoglobin Concent 33.6, Red Cell Distribution Width 15.8H, Platelet Count 200, Mean Platelet Volume 6.3L, Neutrophils (%) (Auto) , Lymphocytes (%) (Auto) , Monocytes (%) (Auto) , Eosinophils (%) (Auto) , Basophils (%) (Auto) , Neutrophils % (Manual) [Pending], Lymphocytes % (Manual) [Pending], Platelet Estimate [Pending], Platelet Morphology [Pending], Sodium Level 142, Potassium Level 3.1L, Chloride Level 110H, Carbon Dioxide Level 23, Anion Gap 9, Blood Urea Nitrogen 9, Creatinine 0.5#L, Estimat Glomerular Filtration Rate , Glucose Level 83, Calcium Level 7.3L, Phosphorus Level 2.3L, Magnesium Level 1.4L, Total Bilirubin 1.5H, Direct Bilirubin 0.9H, Aspartate Amino Transf (AST/SGOT) 10L, Alanine Aminotransferase (ALT/SGPT) 7L, Alkaline Phosphatase 65, C-Reactive Protein, Quantitative 13.2H, Total Protein 3.7L, Albumin 1.5L, Globulin 2.2, Albumin/Globulin Ratio 0.7L Height (Feet): 5 Height (Inches): 5.00 Weight (Pounds): 135 General Appearance: lethargic EENT: normal ENT inspection Neck: normal alignment Cardiovascular: normal peripheral pulses, normal rate, regular rhythm Respiratory/Chest: chest wall non-tender, lungs clear, normal breath sounds Abdomen: normal bowel sounds, non tender, soft Extremities: normal inspection Edema: 1+ Arm (L), 1+ Arm (R), 1+ Leg (L), 1+ Leg (R), 1+ Pedal (L), 1+ Pedal ( R), 1+ Generalized Edema: trace edema Neurologic: motor weakness Skin: normal pigmentation, warm/dry Abdullahi Gonzalez DO Dec 08, 2018 09:18
--- NOTE | 2018-12-08 09:25 | NUR ---
RESPIRATORY NOTE: Placed pt on CPAP PS 8 no peep 30% FiO2 per Dr. Carrasquillo's order. Pt is stable, awake, alert, tachypneic RR 24-26 bpm but no resp distress or SOB noted. RSBI 65, NIF -10. Will continue to monitor pt closely. MONA Danielson made aware.
--- NOTE | 2018-12-08 09:30 | NUR ---
NURSE NOTES: Dr Giang here to see pt. Discussed labs, no new orders. Will continue to monitor.
--- NOTE | 2018-12-08 09:41 | Hematology/Onc Progress Note ---
Assessment/Plan Assessment/Plan Assessment/Plan # Anemia due to GI Bleed, other causes exist, multifactorial, is s/p lap site --> Anemia workup has been reviewed, FERRITIN 831 --> No evidence of hemolysis is noted, peripheral smear has been reviewed. --> Hgb goal >7. Transfuse prn. --> Epogen or iron at this time is not particularly indicated --> Medications have been reviewed --> low threshold for gi evaluation in case has occult +--> endoscopy and colo pending --> hgb trend: 7.4-->9.0-->9-->8.6->8.9-->6.1-->9.8--> 7.3->8.8-->9-->9.5-->8.4- ->8 --> EGD with duodenal bleed, s/p lap --> Blood tx: 1 unit 11/19, 11/27, 12/02 # Acute right leg DVT. Heparin drip DCed for rectal bleed. s/p IVC FILTER --> agree with need for this given coagulant contraindication --> appreciate gi and pulm/cc recs --> UPPER EXT DVT noted as well --> have discontinued eliquis given acute GI bleed on 11/27/18, ON HOLD --> in icu as of 11/27, remains # Leukocytosis due to sepsis. --> Monitor for improvement --> urine and blood cultures are both positive, mrsa positive --> IV abx per id --> trend wbc 11.6--> 16-->8 # Thrombocytopenia likely related to infection --> trend plt 111k-->129k-->148k-->174k-->200k --> likely was related to infection --> meds reviewed # Sinus tach due to anemia and sepsis and beta danya withdrawal as was on Metoprolol 12.5 bid at [facility] --> per cards recs # Hypertension. Hold Metoprolol as BP is 90s. --> cloniditon per cards The timing of this note does not necessarily reflect the time of the patient was seen. GREATLY APPRECIATE CONSULTATION. Subjective HEENT: Denies: no symptoms, eye pain, blurred vision, tearing, double vision, ear pain, ear discharge, nose pain, nose congestion, throat pain, throat swelling, mouth pain, mouth swelling, other Cardiovascular: Denies: no symptoms, chest pain, edema, irregular heart rate, lightheadedness, palpitations, syncope, other Respiratory: Denies: no symptoms, cough, shortness of breath, SOB with excertion, SOB at rest, sputum, wheezing, other Genitourinary: Denies: no symptoms, burning, discharge, frequency, flank pain, hematuria, incontinence, pain, urgency, other Neurologic/Psychiatric: Denies: no symptoms, anxiety, depressed, emotional problems, headache, numbness, paresthesia, pre-existing deficit, seizure, tingling, tremors, weakness, other Endocrine: Denies: no symptoms, excessive sweating, flushing, intolerance to cold, intolerance to heat, increased hunger, increased thirst, increased urine, unexplained weight gain, unexplained weight loss, other Hematologic/Lymphatic: Denies: no symptoms, anemia, easy bleeding, easy bruising, adenopathy, other Allergies: Coded Allergies: No Known Allergies (Unverified , 11/18/18) Subjective Subjective 11/20: Colonoscopy for today. S/P 1 unit prbc. 11/21: Pt awake and nonverbal. Hgb at 7.4, blood tx ordered. 11/23: Pt no acute respiratory distress. CXR Increased bilateral lower lobe atelectasis or airspace consolidation. Underlying pneumonia may be present. Small bilateral pleural effusions. 11/24: no events, no f/c noted, no bleeding, anemia panel reviewed, s/p ivc filter 11/25: No acute events, no signs of distress. DC planning 11/26: no events, no bleeding, noted to have b/l upper ext dvt, acute started on elqiuis 11/27: sbo was ow in the am, transferred to the icu, hgb low requiring transfusion 11/28: Left UE edema > Right UE, s/p blood transfusion 11/27. 11/29:pt is on Venti mask, lethargic. 11/30:pt seen in am, with thick sputum per suctioning. 12/02: no events reported, hgb is better, seen by cards, pulm 12/03: no events, no chills, remains in icu 12/04: is off vanco po, remains in the icu, hgb 9 12/05: no events, no f/c, labs reviwed, on cpap 12/06: no events, bleeding improved, na is better as well 12/08: remains intubated on vent, eyes open Objective Objective Current Medications Medications (Trade) Dose Ordered Sig/Pauline Route PRN Reason Start Time Stop Time Status Last Admin Dose Admin Acetaminophen (Tylenol) 650 mg Q4H PRN GT T>100.5 11/27/18 18:18 12/22/18 18:17 12/03/18 13:02 Chlorhexidine Gluconate (Marycarmen-Hex 2%) 1 applic DAILY@1999 TOPIC 11/30/18 20:00 12/30/18 19:59 12/07/18 20:13 Dextrose (Dextrose 50%) 25 ml Q30M PRN IV Hypoglycemia 11/27/18 18:18 12/18/18 18:17 Dextrose (Dextrose 50%) 50 ml Q30M PRN IV Hypoglycemia 11/27/18 18:18 12/18/18 18:17 Hydralazine HCl (Apresoline) 10 mg Q4H PRN IV Systolic BP greater than 170 12/05/18 15:00 01/03/19 16:44 Hydrocortisone (Proctosol-HC Cream) 1 applic Q12HR TOPIC 12/02/18 13:00 01/01/19 12:59 12/08/18 08:36 Lactobacillus Acidophilus (Culturelle) 1 tab THREE TIMES A DAY ORAL 11/29/18 18:00 12/29/18 17:59 12/03/18 17:00 Metronidazole 100 ml @ 100 mls/hr Q8HR IVPB 12/04/18 14:00 12/11/18 13:59 12/08/18 06:14 Midazolam HCl (Versed 2mg/2ml vial) 1 mg Q1H PRN IVP SEDATION 12/02/18 20:30 01/01/19 20:29 Morphine Sulfate (Morphine Sulfate) 2 mg Q1H PRN IVP For Pain scale 4-7 12/02/18 20:23 12/09/18 20:22 12/06/18 18:42 Norepinephrine Bitartrate 8 mg/ Sodium Chloride 250 ml @ 0 mls/hr Q24H IV 7/10/19 18:03 01/02/19 18:02 12/03/18 18:09 Pantoprazole (Protonix) 40 mg EVERY 12 HOURS IVP 12/07/18 21:00 01/06/19 20:59 12/08/18 08:35 Sodium Hypochlorite (Dakin's Quarter Strength) 1 applic DAILY TOPIC 12/04/18 12:00 01/03/19 11:59 12/08/18 08:37 Vancomycin HCl (Vanco rx to dose) 1 ea DAILY PRN MISC Per rx protocol 11/27/18 18:18 12/27/18 18:17 Vancomycin HCl 750 mg/Sodium Chloride 275 ml @ 183.333 mls/hr Q12HR IVPB 12/07/18 21:00 12/12/18 20:59 12/08/18 08:35 Last 24 Hour Vital Signs Date Time Temp Pulse Resp B/P (MAP) Pulse Ox O2 Delivery O2 Flow Rate FiO2 12/08/18 09:00 112 14 98/63 (75) 98 12/08/18 08:00 45 12/08/18 08:00 Mechanical Ventilator Mechanical Ventilator Mechanical Ventilator 12/08/18 08:00 99.2 112 16 98/77 (84) 97 12/08/18 08:00 116 12/08/18 07:10 117 14 30 12/08/18 07:00 111 20 108/69 (82) 98 12/08/18 06:00 117 20 110/70 (83) 98 12/08/18 05:09 115 15 30 12/08/18 05:00 115 18 114/76 (89) 98 12/08/18 04:00 45 12/08/18 04:00 98.6 114 18 100/65 (77) 98 12/08/18 04:00 Mechanical Ventilator Mechanical Ventilator Mechanical Ventilator 12/08/18 04:00 114 12/08/18 03:09 112 20 40 12/08/18 03:00 117 20 98/65 (76) 98 12/08/18 02:00 107 20 97/68 (78) 98 12/08/18 01:16 113 21 40 12/08/18 01:00 118 20 113/66 (82) 98 12/08/18 00:00 45 12/08/18 00:00 Mechanical Ventilator Mechanical Ventilator Mechanical Ventilator 12/08/18 00:00 98.4 118 19 110/66 (81) 98 12/07/18 23:19 113 22 40 12/07/18 23:00 120 19 107/66 (80) 98 12/07/18 22:00 115 19 112/70 (84) 98 12/07/18 21:30 111 22 35 12/07/18 21:00 115 19 102/68 (79) 98 12/07/18 20:30 111 12/07/18 20:00 98.6 111 19 103/66 (78) 98 12/07/18 20:00 45 12/07/18 20:00 Mechanical Ventilator Mechanical Ventilator Mechanical Ventilator 12/07/18 19:30 113 19 35 12/07/18 19:00 112 19 103/61 (75) 98 12/07/18 18:00 113 20 95/59 (71) 93 12/07/18 17:29 126 24 30 12/07/18 17:01 102/71 12/07/18 17:00 115 20 112/74 (87) 100 12/07/18 16:00 Mechanical Ventilator Mechanical Ventilator Mechanical Ventilator 12/07/18 16:00 115 12/07/18 16:00 45 12/07/18 16:00 98.7 115 21 102/71 (81) 98 12/07/18 15:12 116 19 30 12/07/18 15:00 103 18 102/74 (83) 97 12/07/18 14:00 105 17 122/70 (87) 99 12/07/18 13:21 109 14 30 12/07/18 13:00 113 17 118/71 (87) 99 12/07/18 12:00 Mechanical Ventilator Mechanical Ventilator Mechanical Ventilator 12/07/18 12:00 99.0 118 19 114/60 (78) 100 12/07/18 12:00 104 12/07/18 12:00 45 12/07/18 11:00 109 18 111/64 (80) 99 12/07/18 10:37 105 19 30 12/07/18 10:00 120 22 117/83 (94) 99 12/07/18 09:00 106 18 111/67 (82) 99 12/07/18 08:47 113 18 30 30 12/07/18 08:45 97 12/07/18 08:44 105 19 30 12/07/18 08:00 98.4 107 17 110/81 (91) 96 12/07/18 08:00 Mechanical Ventilator Mechanical Ventilator Mechanical Ventilator 12/07/18 08:00 30 12/07/18 08:00 102 12/07/18 07:00 103 17 113/69 (84) 96 12/07/18 06:42 108 17 30 12/07/18 06:00 100 16 109/68 (82) 96 12/07/18 05:30 100 16 30 12/07/18 05:00 102 15 99/66 (77) 94 12/07/18 04:00 30 12/07/18 04:00 Mechanical Ventilator Mechanical Ventilator Mechanical Ventilator 12/07/18 04:00 104 15 90/55 (67) 93 12/07/18 04:00 105 12/07/18 03:36 103 14 30 12/07/18 03:00 96 13 107/58 (74) 97 12/07/18 02:00 96 12 102/70 (81) 98 12/07/18 01:24 102 14 30 12/07/18 01:00 102 13 101/63 (76) 98 12/07/18 00:00 Mechanical Ventilator Mechanical Ventilator Mechanical Ventilator 12/07/18 00:00 98.7 101 15 107/63 (78) 97 12/07/18 00:00 101 12/07/18 00:00 30 12/06/18 23:23 103 24 30 12/06/18 23:00 99 15 107/61 (76) 97 12/06/18 22:00 104 15 120/67 (84) 95 12/06/18 21:27 100 14 30 12/06/18 21:00 102 14 96/61 (73) 95 12/06/18 20:00 30 12/06/18 20:00 Mechanical Ventilator Mechanical Ventilator Mechanical Ventilator 12/06/18 20:00 114 12/06/18 20:00 99.0 113 22 122/71 (88) 98 12/06/18 19:47 99.0 12/06/18 19:10 99 21 30 12/06/18 19:00 108 20 98/67 (77) 95 12/06/18 18:00 115 23 95/68 (77) 97 12/06/18 17:02 100 15 30 12/06/18 17:00 107 14 118/76 (90) 98 12/06/18 16:00 30 12/06/18 16:00 Mechanical Ventilator Mechanical Ventilator Mechanical Ventilator 12/06/18 16:00 110 12/06/18 16:00 99.9 101 13 105/63 (77) 97 12/06/18 15:00 101 24 30 12/06/18 15:00 111 18 118/74 (89) 99 12/06/18 14:00 110 14 108/65 (79) 97 12/06/18 13:49 105 28 30 12/06/18 13:00 103 15 114/59 (77) 99 12/06/18 12:00 99 12/06/18 12:00 Mechanical Ventilator Mechanical Ventilator Mechanical Ventilator 12/06/18 12:00 30 12/06/18 12:00 99.2 118 13 114/58 (76) 99 12/06/18 11:35 30 12/06/18 11:20 101 22 30 12/06/18 11:00 118 19 119/59 (79) 98 12/06/18 10:00 118 17 108/73 (85) 98 Intake and Output 12/07/18 12/08/18 19:00 07:00 Intake Total 730 ml 466.66 ml Output Total 140 ml 600 ml Balance 590 ml -133.34 ml IV Total 730 ml 466.66 ml Output Urine Total 140 ml 390 ml Gastric Drainage Total 200 ml Drainage Total 10 ml # Bowel Movements 5 2 Labs Test 12/06/18 05:30 12/06/18 07:46 12/06/18 08:00 12/07/18 05:43 White Blood Count 7.9 K/UL (4.8-10.8) 9.7 K/UL (4.8-10.8) Red Blood Count 2.72 M/UL (4.70-6.10) 2.71 M/UL (4.70-6.10) Hemoglobin 8.4 G/DL (14.2-18.0) 8.4 G/DL (14.2-18.0) Hematocrit 25.3 % (42.0-52.0) 25.2 % (42.0-52.0) Mean Corpuscular Volume 93 FL (80-99) 93 FL (80-99) Mean Corpuscular Hemoglobin 30.8 PG (27.0-31.0) 31.0 PG (27.0-31.0) Mean Corpuscular Hemoglobin Concent 33.1 G/DL (32.0-36.0) 33.3 G/DL (32.0-36.0) Red Cell Distribution Width 15.7 % (11.6-14.8) 16.3 % (11.6-14.8) Platelet Count 174 K/UL (150-450) 204 K/UL (150-450) Mean Platelet Volume 6.6 FL (6.5-10.1) 6.2 FL (6.5-10.1) Neutrophils (%) (Auto) 80.3 % (45.0-75.0) 83.4 % (45.0-75.0) Lymphocytes (%) (Auto) 11.5 % (20.0-45.0) 8.4 % (20.0-45.0) Monocytes (%) (Auto) 6.2 % (1.0-10.0) 6.5 % (1.0-10.0) Eosinophils (%) (Auto) 1.8 % (0.0-3.0) 1.4 % (0.0-3.0) Basophils (%) (Auto) 0.3 % (0.0-2.0) 0.4 % (0.0-2.0) Sodium Level 145 MMOL/L (136-145) 145 MMOL/L (136-145) Potassium Level 2.8 MMOL/L (3.5-5.1) 3.2 MMOL/L (3.5-5.1) Chloride Level 113 MMOL/L (98-107) 113 MMOL/L (98-107) Carbon Dioxide Level 24 MMOL/L (21-32) 23 MMOL/L (21-32) Anion Gap 8 mmol/L (5-15) 9 mmol/L (5-15) Blood Urea Nitrogen 10 mg/dL (7-18) 7 mg/dL (7-18) Creatinine 0.4 MG/DL (0.55-1.30) 0.3 MG/DL (0.55-1.30) Estimat Glomerular Filtration Rate mL/min (>60) mL/min (>60) Glucose Level 93 MG/DL (74-106) 93 MG/DL (74-106) Calcium Level 7.6 MG/DL (8.5-10.1) 7.6 MG/DL (8.5-10.1) Phosphorus Level 2.6 MG/DL (2.5-4.9) 2.5 MG/DL (2.5-4.9) Magnesium Level 1.7 MG/DL (1.8-2.4) 1.8 MG/DL (1.8-2.4) Total Bilirubin 1.6 MG/DL (0.2-1.0) 1.4 MG/DL (0.2-1.0) Direct Bilirubin 0.6 MG/DL (0.0-0.3) 0.6 MG/DL (0.0-0.3) Aspartate Amino Transf (AST/SGOT) 10 U/L (15-37) 12 U/L (15-37) Alanine Aminotransferase (ALT/SGPT) 11 U/L (12-78) 8 U/L (12-78) Alkaline Phosphatase 55 U/L (46-116) 63 U/L (46-116) C-Reactive Protein, Quantitative 12.5 mg/dL (0.00-0.90) 11.3 mg/dL (0.00-0.90) Pro-B-Type Natriuretic Peptide 2720 pg/mL (0-125) 1883 pg/mL (0-125) Total Protein 4.0 G/DL (6.4-8.2) 4.0 G/DL (6.4-8.2) Albumin 1.8 G/DL (3.4-5.0) 1.6 G/DL (3.4-5.0) Globulin 2.2 g/dL 2.4 g/dL Albumin/Globulin Ratio 0.8 (1.0-2.7) 0.7 (1.0-2.7) Arterial Blood pH 7.520 (7.350-7.450) Arterial Blood Partial Pressure CO2 28.3 mmHg (35.0-45.0) Arterial Blood Partial Pressure O2 77.6 mmHg (75.0-100.0) Arterial Blood HCO3 22.6 mmol/L (22.0-26.0) Arterial Blood Oxygen Saturation 95.2 % (95-100) Arterial Blood Base Excess 0.3 (-2-2) Blake Test Positive Vancomycin Level Trough 6.4 ug/mL (5.0-12.0) Uric Acid 4.0 MG/DL (2.6-7.2) Test 12/07/18 06:25 12/07/18 20:00 12/08/18 04:20 Arterial Blood pH 7.478 (7.350-7.450) Arterial Blood Partial Pressure CO2 29.9 mmHg (35.0-45.0) Arterial Blood Partial Pressure O2 65.5 mmHg (75.0-100.0) Arterial Blood HCO3 21.7 mmol/L (22.0-26.0) Arterial Blood Oxygen Saturation 92.9 % (95-100) Arterial Blood Base Excess -1.4 (-2-2) Blake Test Positive Vancomycin Level Trough 10.1 ug/mL (5.0-12.0) White Blood Count 11.5 K/UL (4.8-10.8) Red Blood Count 2.52 M/UL (4.70-6.10) Hemoglobin 8.0 G/DL (14.2-18.0) Hematocrit 23.8 % (42.0-52.0) Mean Corpuscular Volume 94 FL (80-99) Mean Corpuscular Hemoglobin 31.7 PG (27.0-31.0) Mean Corpuscular Hemoglobin Concent 33.6 G/DL (32.0-36.0) Red Cell Distribution Width 15.8 % (11.6-14.8) Platelet Count 200 K/UL (150-450) Mean Platelet Volume 6.3 FL (6.5-10.1) Neutrophils (%) (Auto) % (45.0-75.0) Lymphocytes (%) (Auto) % (20.0-45.0) Monocytes (%) (Auto) % (1.0-10.0) Eosinophils (%) (Auto) % (0.0-3.0) Basophils (%) (Auto) % (0.0-2.0) Sodium Level 142 MMOL/L (136-145) Potassium Level 3.1 MMOL/L (3.5-5.1) Chloride Level 110 MMOL/L (98-107) Carbon Dioxide Level 23 MMOL/L (21-32) Anion Gap 9 mmol/L (5-15) Blood Urea Nitrogen 9 mg/dL (7-18) Creatinine 0.5 MG/DL (0.55-1.30) Estimat Glomerular Filtration Rate mL/min (>60) Glucose Level 83 MG/DL (74-106) Calcium Level 7.3 MG/DL (8.5-10.1) Phosphorus Level 2.3 MG/DL (2.5-4.9) Magnesium Level 1.4 MG/DL (1.8-2.4) Total Bilirubin 1.5 MG/DL (0.2-1.0) Direct Bilirubin 0.9 MG/DL (0.0-0.3) Aspartate Amino Transf (AST/SGOT) 10 U/L (15-37) Alanine Aminotransferase (ALT/SGPT) 7 U/L (12-78) Alkaline Phosphatase 65 U/L (46-116) C-Reactive Protein, Quantitative 13.2 mg/dL (0.00-0.90) Total Protein 3.7 G/DL (6.4-8.2) Albumin 1.5 G/DL (3.4-5.0) Globulin 2.2 g/dL Albumin/Globulin Ratio 0.7 (1.0-2.7) Height (Feet): 5 Height (Inches): 5.00 Weight (Pounds): 135 Objective PE General Appearance: WD/WN HEENT: normocephalic, atraumatic Neck: non-tender, normal alignment Cardiovascular: normal peripheral pulses, normal rate, regular rhythm Resp: s/p vent++ Abdomen: normal bowel sounds, non tender ++ lap site noted Genitourinary/Rectal: normal genital exam, heme negative stool Extremities: normal range of motion Skin Exam: normal pigmentation Neurologic: coin counter and wrapper II-XII grossly normal Avery Giang MD Dec 08, 2018 09:41
--- NOTE | 2018-12-08 10:04 | Pulmonolgy Critical Care Note ---
Critical Care - Asmt/Plan Problems: (1) Hemorrhagic shocks (2) Status post exploratory laparotomy (3) Duodenal ulcer hemorrhage (4) SVT (supraventricular tachycardia) (5) HCAP (healthcare-associated pneumonia) (6) Acute DVT (deep venous thrombosis) (7) COPD (chronic obstructive pulmonary disease) (8) S/P insertion of IVC (inferior vena caval) filter (9) C. difficile colitis (10) Alzheimer's dementia (11) Parkinson disease (12) Feeding by G-tube (13) Seizures (14) Severe protein-calorie malnutrition Respiratory: monitor respiratory rate, adjust FIO2, weaning trial Cardiac: continue to monitor HR/BP Renal: check electrolytes Infectious Disease: check cultures, continue antibiotics Gastrointestinal: hold feedings Endocrine: check HgA1C Neurologic: PRN Ativan, keep patient comfortable Affect: PRN ativan Prophylaxis: Protonix, SCDs Disposition: keep in ICU Notes Reviewed: animal nurse, cardio Discussed with: nurses, consultants, case management directorproject development manager - Objective Last 24 Hour Vital Signs Date Time Temp Pulse Resp B/P (MAP) Pulse Ox O2 Delivery O2 Flow Rate FiO2 12/08/18 09:25 113 24 30 12/08/18 09:25 98 12/08/18 09:00 112 14 98/63 (75) 98 12/08/18 08:00 45 12/08/18 08:00 Mechanical Ventilator Mechanical Ventilator Mechanical Ventilator 12/08/18 08:00 99.2 112 16 98/77 (84) 97 12/08/18 08:00 116 12/08/18 07:10 117 14 30 12/08/18 07:00 111 20 108/69 (82) 98 12/08/18 06:00 117 20 110/70 (83) 98 12/08/18 05:09 115 15 30 12/08/18 05:00 115 18 114/76 (89) 98 12/08/18 04:00 45 12/08/18 04:00 98.6 114 18 100/65 (77) 98 12/08/18 04:00 Mechanical Ventilator Mechanical Ventilator Mechanical Ventilator 12/08/18 04:00 114 12/08/18 03:09 112 20 40 12/08/18 03:00 117 20 98/65 (76) 98 12/08/18 02:00 107 20 97/68 (78) 98 12/08/18 01:16 113 21 40 12/08/18 01:00 118 20 113/66 (82) 98 12/08/18 00:00 45 12/08/18 00:00 Mechanical Ventilator Mechanical Ventilator Mechanical Ventilator 12/08/18 00:00 98.4 118 19 110/66 (81) 98 12/07/18 23:19 113 22 40 12/07/18 23:00 120 19 107/66 (80) 98 12/07/18 22:00 115 19 112/70 (84) 98 12/07/18 21:30 111 22 35 12/07/18 21:00 115 19 102/68 (79) 98 12/07/18 20:30 111 12/07/18 20:00 98.6 111 19 103/66 (78) 98 12/07/18 20:00 45 12/07/18 20:00 Mechanical Ventilator Mechanical Ventilator Mechanical Ventilator 12/07/18 19:30 113 19 35 12/07/18 19:00 112 19 103/61 (75) 98 12/07/18 18:00 113 20 95/59 (71) 93 12/07/18 17:29 126 24 30 12/07/18 17:01 102/71 12/07/18 17:00 115 20 112/74 (87) 100 12/07/18 16:00 Mechanical Ventilator Mechanical Ventilator Mechanical Ventilator 12/07/18 16:00 115 12/07/18 16:00 45 12/07/18 16:00 98.7 115 21 102/71 (81) 98 12/07/18 15:12 116 19 30 12/07/18 15:00 103 18 102/74 (83) 97 12/07/18 14:00 105 17 122/70 (87) 99 12/07/18 13:21 109 14 30 12/07/18 13:00 113 17 118/71 (87) 99 12/07/18 12:00 Mechanical Ventilator Mechanical Ventilator Mechanical Ventilator 12/07/18 12:00 99.0 118 19 114/60 (78) 100 12/07/18 12:00 104 12/07/18 12:00 45 12/07/18 11:00 109 18 111/64 (80) 99 12/07/18 10:37 105 19 30 Status: awake Condition: critical, improving HEENT: atraumatic Lungs: clear Heart: HR/BP stable Abdomen: soft, active bowel sounds Extremities: no C/C/E Critical Care - Subjective ROS Limited/Unobtainable: Yes Condition: critical EKG Rhythm: Sinus Rhythm FI02: 30 Vent Support Breath Rate: 10 Vent Support Mode: CPAP Vent Tidal Volume: 600 Sputum Amount: Small PEEP: 0.0 PIP: 9 Tube Feeding Amount: 0 I&O: Intake and Output 12/07/18 12/08/18 19:00 07:00 Intake Total 730 ml 466.66 ml Output Total 140 ml 600 ml Balance 590 ml -133.34 ml IV Total 730 ml 466.66 ml Output Urine Total 140 ml 390 ml Gastric Drainage Total 200 ml Drainage Total 10 ml # Bowel Movements 5 2 CXR: ET in good position ET-Tube: 7.5 ET Position: 25 Labs: Laboratory Tests Test 12/07/18 20:00 12/08/18 04:20 Vancomycin Level Trough 10.1 ug/mL (5.0-12.0) White Blood Count 11.5 K/UL (4.8-10.8) H Red Blood Count 2.52 M/UL (4.70-6.10) L Hemoglobin 8.0 G/DL (14.2-18.0) L Hematocrit 23.8 % (42.0-52.0) L Mean Corpuscular Volume 94 FL (80-99) Mean Corpuscular Hemoglobin 31.7 PG (27.0-31.0) H Mean Corpuscular Hemoglobin Concent 33.6 G/DL (32.0-36.0) Red Cell Distribution Width 15.8 % (11.6-14.8) H Platelet Count 200 K/UL (150-450) Mean Platelet Volume 6.3 FL (6.5-10.1) L Neutrophils (%) (Auto) % (45.0-75.0) Lymphocytes (%) (Auto) % (20.0-45.0) Monocytes (%) (Auto) % (1.0-10.0) Eosinophils (%) (Auto) % (0.0-3.0) Basophils (%) (Auto) % (0.0-2.0) Neutrophils % (Manual) Pending Lymphocytes % (Manual) Pending Platelet Estimate Pending Platelet Morphology Pending Sodium Level 142 MMOL/L (136-145) Potassium Level 3.1 MMOL/L (3.5-5.1) L Chloride Level 110 MMOL/L (98-107) H Carbon Dioxide Level 23 MMOL/L (21-32) Anion Gap 9 mmol/L (5-15) Blood Urea Nitrogen 9 mg/dL (7-18) Creatinine 0.5 MG/DL (0.55-1.30) #L Estimat Glomerular Filtration Rate mL/min (>60) Glucose Level 83 MG/DL (74-106) Calcium Level 7.3 MG/DL (8.5-10.1) L Phosphorus Level 2.3 MG/DL (2.5-4.9) L Magnesium Level 1.4 MG/DL (1.8-2.4) L Total Bilirubin 1.5 MG/DL (0.2-1.0) H Direct Bilirubin 0.9 MG/DL (0.0-0.3) H Aspartate Amino Transf (AST/SGOT) 10 U/L (15-37) L Alanine Aminotransferase (ALT/SGPT) 7 U/L (12-78) L Alkaline Phosphatase 65 U/L (46-116) C-Reactive Protein, Quantitative 13.2 mg/dL (0.00-0.90) H Total Protein 3.7 G/DL (6.4-8.2) L Albumin 1.5 G/DL (3.4-5.0) L Globulin 2.2 g/dL Albumin/Globulin Ratio 0.7 (1.0-2.7) L David Carrasquillo MD Dec 08, 2018 10:04
--- NOTE | 2018-12-08 10:18 | Nephrology Progress Note ---
Assessment/Plan Problem List: (1) Hyponatremia Assessment: Na higher (2) UTI (urinary tract infection) (3) Anemia, chronic disease (4) Alzheimer's dementia (5) Parkinson disease (6) C. difficile colitis (7) Perforated duodenal ulcer Assessment Low Na corrected GI bleed transfused other conditions Pneumonia UTI, has grewal bacteremia sacral decub dementia HTN Sz disorder Parkinsons severe Anemia Plan remains NPO Post OP care ( Laparatomy Op 12/02/18) Trial Albumin and Lasix to diurese PRN K and Mag and Phos supplement as needed hemodynamic support Albumin bolus and transfusion for low BP as needed stop HypoTonic IV solution start maintenence IV fluid Urine studies Transfusion as needed Per orders roberto carlos khalil Subjective ROS Limited/Unobtainable: Yes Objective Objective Last 24 Hour Vital Signs Date Time Temp Pulse Resp B/P (MAP) Pulse Ox O2 Delivery O2 Flow Rate FiO2 12/08/18 10:00 112 22 107/70 (82) 97 12/08/18 09:25 113 24 30 12/08/18 09:25 98 12/08/18 09:00 112 14 98/63 (75) 98 12/08/18 08:00 45 12/08/18 08:00 Mechanical Ventilator Mechanical Ventilator Mechanical Ventilator 12/08/18 08:00 99.2 112 16 98/77 (84) 97 12/08/18 08:00 116 12/08/18 07:10 117 14 30 12/08/18 07:00 111 20 108/69 (82) 98 12/08/18 06:00 117 20 110/70 (83) 98 12/08/18 05:09 115 15 30 12/08/18 05:00 115 18 114/76 (89) 98 12/08/18 04:00 45 12/08/18 04:00 98.6 114 18 100/65 (77) 98 12/08/18 04:00 Mechanical Ventilator Mechanical Ventilator Mechanical Ventilator 12/08/18 04:00 114 12/08/18 03:09 112 20 40 12/08/18 03:00 117 20 98/65 (76) 98 12/08/18 02:00 107 20 97/68 (78) 98 12/08/18 01:16 113 21 40 12/08/18 01:00 118 20 113/66 (82) 98 12/08/18 00:00 45 12/08/18 00:00 Mechanical Ventilator Mechanical Ventilator Mechanical Ventilator 12/08/18 00:00 98.4 118 19 110/66 (81) 98 12/07/18 23:19 113 22 40 12/07/18 23:00 120 19 107/66 (80) 98 12/07/18 22:00 115 19 112/70 (84) 98 12/07/18 21:30 111 22 35 12/07/18 21:00 115 19 102/68 (79) 98 12/07/18 20:30 111 12/07/18 20:00 98.6 111 19 103/66 (78) 98 12/07/18 20:00 45 12/07/18 20:00 Mechanical Ventilator Mechanical Ventilator Mechanical Ventilator 12/07/18 19:30 113 19 35 12/07/18 19:00 112 19 103/61 (75) 98 12/07/18 18:00 113 20 95/59 (71) 93 12/07/18 17:29 126 24 30 12/07/18 17:01 102/71 12/07/18 17:00 115 20 112/74 (87) 100 12/07/18 16:00 Mechanical Ventilator Mechanical Ventilator Mechanical Ventilator 12/07/18 16:00 115 12/07/18 16:00 45 12/07/18 16:00 98.7 115 21 102/71 (81) 98 12/07/18 15:12 116 19 30 12/07/18 15:00 103 18 102/74 (83) 97 12/07/18 14:00 105 17 122/70 (87) 99 12/07/18 13:21 109 14 30 12/07/18 13:00 113 17 118/71 (87) 99 12/07/18 12:00 Mechanical Ventilator Mechanical Ventilator Mechanical Ventilator 12/07/18 12:00 99.0 118 19 114/60 (78) 100 12/07/18 12:00 104 12/07/18 12:00 45 12/07/18 11:00 109 18 111/64 (80) 99 12/07/18 10:37 105 19 30 Intake and Output 12/07/18 12/08/18 19:00 07:00 Intake Total 730 ml 466.66 ml Output Total 140 ml 600 ml Balance 590 ml -133.34 ml IV Total 730 ml 466.66 ml Output Urine Total 140 ml 390 ml Gastric Drainage Total 200 ml Drainage Total 10 ml # Bowel Movements 5 2 Laboratory Tests 12/07/18 20:00: Vancomycin Level Trough 10.1 12/08/18 04:20: White Blood Count 11.5H, Red Blood Count 2.52L, Hemoglobin 8.0L, Hematocrit 23.8L, Mean Corpuscular Volume 94, Mean Corpuscular Hemoglobin 31.7H, Mean Corpuscular Hemoglobin Concent 33.6, Red Cell Distribution Width 15.8H, Platelet Count 200, Mean Platelet Volume 6.3L, Neutrophils (%) (Auto) , Lymphocytes (%) (Auto) , Monocytes (%) (Auto) , Eosinophils (%) (Auto) , Basophils (%) (Auto) , Neutrophils % (Manual) [Pending], Lymphocytes % (Manual) [Pending], Platelet Estimate [Pending], Platelet Morphology [Pending], Sodium Level 142, Potassium Level 3.1L, Chloride Level 110H, Carbon Dioxide Level 23, Anion Gap 9, Blood Urea Nitrogen 9, Creatinine 0.5#L, Estimat Glomerular Filtration Rate , Glucose Level 83, Calcium Level 7.3L, Phosphorus Level 2.3L, Magnesium Level 1.4L, Total Bilirubin 1.5H, Direct Bilirubin 0.9H, Aspartate Amino Transf (AST/SGOT) 10L, Alanine Aminotransferase (ALT/SGPT) 7L, Alkaline Phosphatase 65, C-Reactive Protein, Quantitative 13.2H, Total Protein 3.7L, Albumin 1.5L, Globulin 2.2, Albumin/Globulin Ratio 0.7L Height (Feet): 5 Height (Inches): 5.00 Weight (Pounds): 135 General Appearance: no apparent distress EENT: other - vented Cardiovascular: tachycardia Respiratory/Chest: decreased breath sounds Abdomen: distended Objective no change Kendall Trinidad MD Dec 08, 2018 10:18
--- NOTE | 2018-12-08 10:40 | NUR ---
RESPIRATORY NOTE: PT extubated at [address] Carrasquillo order, PT is stable, no respiratory distress noted, no stridor heard upon extubation. Bilateral rhonchi breath sounds heard. orally suctioned small amount of thin, thick, frothy, clear, white, harmon secretions without incident. PT placed on 3L NC, fio2 32%, PT tolerate well. Sa02 98%, tachycardia 112, tachypneic 22, but no respiratory distress or SOB noted. RN Erum make aware. Will continue to monitor.
--- NOTE | 2018-12-08 10:49 | NUR ---
NURSE NOTES: Dr Carrasquillo here to see pt. Pt was on CPAP and said ok to extubate. Pt extubated at 1040 and placed on 3L O2 via NC, oxygen saturation 98%, RR 22. Dr Eugene here to see pt. ordered to clamp G tube and check residual after 4 hours.
--- NOTE | 2018-12-08 11:23 | GI Progress Note ---
Assessment/Plan Problems: (1) Parkinson disease ICD Codes: G20 - Parkinson's disease SNOMED: 79213083 (2) Alzheimer's dementia ICD Codes: G30.9 - Alzheimer's disease, unspecified; F02.80 - Dementia in other diseases classified elsewhere without behavioral disturbance SNOMED: 46835757 (3) Feeding by G-tube ICD Codes: Z93.1 - Gastrostomy status SNOMED: 674477097, 735583450, 153541643 (4) Anemia, chronic disease ICD Codes: D63.8 - Anemia in other chronic diseases classified elsewhere SNOMED: 162579205, 012077524 Status: unchanged Status Narrative Discussed with Dr. Dallas. Assessment/Plan Duodenal ulcer s/p SURG POD #6 npo iv ppi stable H&H will fu may need TPN if prolonged NPO status anticipated The patient was seen and examined at bedside and all new and available data was reviewed in the patients chart. I agree with the above findings, impression and plan. (Patient seen earlier today. Signature stamp does not reflect patient encounter time.). - Deacon Dallas MD Subjective Subjective limited Objective Last 24 Hour Vital Signs Date Time Temp Pulse Resp B/P (MAP) Pulse Ox O2 Delivery O2 Flow Rate FiO2 12/08/18 11:00 105 21 109/67 (81) 98 12/08/18 10:40 Nasal Cannula 3.0 32 12/08/18 10:40 98 Nasal Cannula 3.0 32 12/08/18 10:00 112 22 107/70 (82) 97 12/08/18 09:25 113 24 30 12/08/18 09:25 98 12/08/18 09:00 112 14 98/63 (75) 98 12/08/18 08:00 45 12/08/18 08:00 Mechanical Ventilator Mechanical Ventilator Mechanical Ventilator 12/08/18 08:00 99.2 112 16 98/77 (84) 97 12/08/18 08:00 116 12/08/18 07:10 117 14 30 12/08/18 07:00 111 20 108/69 (82) 98 12/08/18 06:00 117 20 110/70 (83) 98 12/08/18 05:09 115 15 30 12/08/18 05:00 115 18 114/76 (89) 98 12/08/18 04:00 45 12/08/18 04:00 98.6 114 18 100/65 (77) 98 12/08/18 04:00 Mechanical Ventilator Mechanical Ventilator Mechanical Ventilator 12/08/18 04:00 114 12/08/18 03:09 112 20 40 12/08/18 03:00 117 20 98/65 (76) 98 12/08/18 02:00 107 20 97/68 (78) 98 12/08/18 01:16 113 21 40 12/08/18 01:00 118 20 113/66 (82) 98 12/08/18 00:00 45 12/08/18 00:00 Mechanical Ventilator Mechanical Ventilator Mechanical Ventilator 12/08/18 00:00 98.4 118 19 110/66 (81) 98 12/07/18 23:19 113 22 40 12/07/18 23:00 120 19 107/66 (80) 98 12/07/18 22:00 115 19 112/70 (84) 98 12/07/18 21:30 111 22 35 12/07/18 21:00 115 19 102/68 (79) 98 12/07/18 20:30 111 12/07/18 20:00 98.6 111 19 103/66 (78) 98 12/07/18 20:00 45 12/07/18 20:00 Mechanical Ventilator Mechanical Ventilator Mechanical Ventilator 12/07/18 19:30 113 19 35 12/07/18 19:00 112 19 103/61 (75) 98 12/07/18 18:00 113 20 95/59 (71) 93 12/07/18 17:29 126 24 30 12/07/18 17:01 102/71 12/07/18 17:00 115 20 112/74 (87) 100 12/07/18 16:00 Mechanical Ventilator Mechanical Ventilator Mechanical Ventilator 12/07/18 16:00 115 12/07/18 16:00 45 12/07/18 16:00 98.7 115 21 102/71 (81) 98 12/07/18 15:12 116 19 30 12/07/18 15:00 103 18 102/74 (83) 97 12/07/18 14:00 105 17 122/70 (87) 99 12/07/18 13:21 109 14 30 12/07/18 13:00 113 17 118/71 (87) 99 12/07/18 12:00 Mechanical Ventilator Mechanical Ventilator Mechanical Ventilator 12/07/18 12:00 99.0 118 19 114/60 (78) 100 12/07/18 12:00 104 12/07/18 12:00 45 Intake and Output 12/07/18 12/08/18 19:00 07:00 Intake Total 730 ml 466.66 ml Output Total 140 ml 600 ml Balance 590 ml -133.34 ml IV Total 730 ml 466.66 ml Output Urine Total 140 ml 390 ml Gastric Drainage Total 200 ml Drainage Total 10 ml # Bowel Movements 5 2 Laboratory Tests Test 12/07/18 20:00 12/08/18 04:20 Vancomycin Level Trough 10.1 ug/mL (5.0-12.0) White Blood Count 11.5 K/UL (4.8-10.8) H Red Blood Count 2.52 M/UL (4.70-6.10) L Hemoglobin 8.0 G/DL (14.2-18.0) L Hematocrit 23.8 % (42.0-52.0) L Mean Corpuscular Volume 94 FL (80-99) Mean Corpuscular Hemoglobin 31.7 PG (27.0-31.0) H Mean Corpuscular Hemoglobin Concent 33.6 G/DL (32.0-36.0) Red Cell Distribution Width 15.8 % (11.6-14.8) H Platelet Count 200 K/UL (150-450) Mean Platelet Volume 6.3 FL (6.5-10.1) L Neutrophils (%) (Auto) % (45.0-75.0) Lymphocytes (%) (Auto) % (20.0-45.0) Monocytes (%) (Auto) % (1.0-10.0) Eosinophils (%) (Auto) % (0.0-3.0) Basophils (%) (Auto) % (0.0-2.0) Differential Total Cells Counted 100 Neutrophils % (Manual) 90 % (45-75) H Lymphocytes % (Manual) 4 % (20-45) L Monocytes % (Manual) 2 % (1-10) Eosinophils % (Manual) 1 % (0-3) Basophils % (Manual) 2 % (0-2) Band Neutrophils 1 % (0-8) Platelet Estimate Adequate Platelet Morphology Normal Hypochromasia 3+ Anisocytosis 1+ Sodium Level 142 MMOL/L (136-145) Potassium Level 3.1 MMOL/L (3.5-5.1) L Chloride Level 110 MMOL/L (98-107) H Carbon Dioxide Level 23 MMOL/L (21-32) Anion Gap 9 mmol/L (5-15) Blood Urea Nitrogen 9 mg/dL (7-18) Creatinine 0.5 MG/DL (0.55-1.30) #L Estimat Glomerular Filtration Rate mL/min (>60) Glucose Level 83 MG/DL (74-106) Calcium Level 7.3 MG/DL (8.5-10.1) L Phosphorus Level 2.3 MG/DL (2.5-4.9) L Magnesium Level 1.4 MG/DL (1.8-2.4) L Total Bilirubin 1.5 MG/DL (0.2-1.0) H Direct Bilirubin 0.9 MG/DL (0.0-0.3) H Aspartate Amino Transf (AST/SGOT) 10 U/L (15-37) L Alanine Aminotransferase (ALT/SGPT) 7 U/L (12-78) L Alkaline Phosphatase 65 U/L (46-116) C-Reactive Protein, Quantitative 13.2 mg/dL (0.00-0.90) H Total Protein 3.7 G/DL (6.4-8.2) L Albumin 1.5 G/DL (3.4-5.0) L Globulin 2.2 g/dL Albumin/Globulin Ratio 0.7 (1.0-2.7) L Height (Feet): 5 Height (Inches): 5.00 Weight (Pounds): 135 General Appearance: no apparent distress, alert Cardiovascular: normal rate Respiratory/Chest: normal breath sounds, no respiratory distress Abdominal Exam: normal bowel sounds, non tender, soft Extremities: non-tender Sohan Kohli NP Dec 08, 2018 11:23
--- NOTE | 2018-12-08 12:13 | General Progress Note ---
Progress Note Progress Note no acute events extubated and doing okay start trial with g tube clamp check residual q4h call me with results Andrew Eugene Dec 08, 2018 12:13
[2018-12-08] MEDS ORDERED: Sodium Phosphate 30 MM in NS 275 ML IV ONE (12:45)
--- NOTE | 2018-12-08 12:47 | NUR ---
NURSE NOTES: Pt turned and repositioned. Pt suctioned and oral care done. VSS. Will continue to monitor.
--- NOTE | 2018-12-08 14:25 | NUR ---
NURSE NOTES: Wound care nurse here to assess pt wounds. Pt oxygen saturation post extubation is 98% at the moment on 3L O2. Will continue to monitor.
--- NOTE | 2018-12-08 16:35 | Infectious Diseases Prog Note ---
Assessment/Plan Assessment/Plan VDRF, s/p extubation 12/08 GIB- 2ry to actively bleeding Duodenal ulcer -12/02 SP exploratory laparotomy. Anterior duodenotomy for control of large posterior duodenal ulcer hemorrhage. closure of duodenotomy. pyloric exclusion with gastrojejunostomy abdominal washout. abdominal drain placement -12/02 SP EGD Shock likely hemorrhagic and septic component- now off presors -12/04 CXR: Suggestion of a slightly worsening vascular congestion -12/03 u/a neg, ucx NTD Bcx NTD -12/02 CXR: Slightly increased bilateral infiltrates Diarrhea CDiff + GI bleed 11/29 Colonscopy : Diverticulosis Sepsis -11/30 CT abd/p: Nonspecific trace free intraperitoneal fluid. No acute abdominal or pelvic process otherwise. Fairly extensive bilateral basilar pulmonary parenchymal consolidation and atelectasis. Bilateral small pleural effusions. Colonic diverticulosis. No evidence of diverticulitis. Gastrostomy. Nonobstructive 3 mm left intrarenal calyceal calculus. Prostatomegaly. Edema of the bilateral left greater than right subcutaneous fat. Fairly extensive chronic appearing bilateral hip degenerative changes, with bilateral joint effusions versus chronic synovial proliferation. Inferior vena cava filter -11/28 BCx Neg u/a no pyuria ucx Neg Pneumonia -12/07 CXR: Patchy airspace disease noted in the perihilar basilar regions. There may be a small left pleural effusion now present -12/03 Sp cx Citrobacter diversus (R Genta,Ancef, Bactrim); MDR P. stuarti ( S Amikacin) -CXR: Patchy bilateral infiltrates versus mixed interstitial alveolar edema noted. -sp cx MRSA, MDR P. stuarti (S Amikacin, Zosyn ; I cefepime; S ertapenem) Afebrile Leukocytosis; recurrent MRSA bacteremia- suspect 2ry to PNA- r/o endocarditis -11/18 Bcx 2/4 MRSA , 1/4 S. capitis, Diptheroids (these 2 are contaminants); BCx Neg -2d Echo:limited study (no vegetations) Probable UTI, sp Rx -u/a wbc 10-15, nit neg, leuk +2; ucx MDR ABC (S bactrim, gentamicin) Acute respiratory failure Sacral decubitus ulcer, necrotic, surrounding cellulitis GIB dementia HTN CKD COPD dysphagia s/p Gtube feeding Parkinson disease seizure disorder multiple decubiti wounds [facility] resident Plan: - Resume IV Flagyl #5 (abx d #03/09) for Cdiff given NPO status -Continue empiric IV Vancomycin #/- for MRSA bacteremia and PNA -low threshold to start Zosyn if febrile, rising WBC and.or vent requirements/increase secretions -FLORINA pending\ -Add IV Amikacin for MDR PNA -12/03 SP PO Vancomycin #5 (held as pt now is NPO) -12/02 SP Flagyl #4 -11/29 SP Zosyn #8 -11/27 SP Bactrim # -11/23 SP Cefepime # -11/18 SP Levaquin x1 -f/u cx -Monitor CBC/CMP, temperatures -GT care -aspiration precautions -wound care per surgical team -Recommend FLORINA -f/u ucx, Bcx x2, sp cx -ETT/ICU care -GI, Gen Sx f/u Subjective Allergies: Coded Allergies: No Known Allergies (Unverified , 11/18/18) Subjective afebrile Leukocytosis recurrent extubated today \BcxN TD Objective Vital Signs Last 24 Hour Vital Signs Date Time Temp Pulse Resp B/P (MAP) Pulse Ox O2 Delivery O2 Flow Rate FiO2 12/08/18 16:00 104 20 115/64 (81) 99 12/08/18 16:00 Nasal Cannula 3.0 Nasal Cannula 3.0 Nasal Cannula 3.0 Nasal Cannula 3.0 12/08/18 15:00 113 24 125/77 (93) 97 12/08/18 14:00 110 22 104/50 (68) 95 12/08/18 13:00 99 21 110/63 (79) 98 12/08/18 12:00 106 12/08/18 12:00 Nasal Cannula 3.0 Nasal Cannula 3.0 Nasal Cannula 3.0 Nasal Cannula 3.0 12/08/18 12:00 99.0 104 21 112/74 (87) 98 12/08/18 11:00 105 21 109/67 (81) 98 12/08/18 10:40 Nasal Cannula 3.0 32 12/08/18 10:40 98 Nasal Cannula 3.0 32 12/08/18 10:00 112 22 107/70 (82) 97 12/08/18 09:25 113 24 30 12/08/18 09:25 98 12/08/18 09:00 112 14 98/63 (75) 98 12/08/18 08:00 45 12/08/18 08:00 Mechanical Ventilator Mechanical Ventilator Mechanical Ventilator 12/08/18 08:00 99.2 112 16 98/77 (84) 97 12/08/18 08:00 116 12/08/18 07:10 117 14 30 12/08/18 07:00 111 20 108/69 (82) 98 12/08/18 06:00 117 20 110/70 (83) 98 12/08/18 05:09 115 15 30 12/08/18 05:00 115 18 114/76 (89) 98 12/08/18 04:00 45 12/08/18 04:00 98.6 114 18 100/65 (77) 98 12/08/18 04:00 Mechanical Ventilator Mechanical Ventilator Mechanical Ventilator 12/08/18 04:00 114 12/08/18 03:09 112 20 40 12/08/18 03:00 117 20 98/65 (76) 98 12/08/18 02:00 107 20 97/68 (78) 98 12/08/18 01:16 113 21 40 12/08/18 01:00 118 20 113/66 (82) 98 12/08/18 00:00 45 12/08/18 00:00 Mechanical Ventilator Mechanical Ventilator Mechanical Ventilator 12/08/18 00:00 98.4 118 19 110/66 (81) 98 12/07/18 23:19 113 22 40 12/07/18 23:00 120 19 107/66 (80) 98 12/07/18 22:00 115 19 112/70 (84) 98 12/07/18 21:30 111 22 35 12/07/18 21:00 115 19 102/68 (79) 98 12/07/18 20:30 111 12/07/18 20:00 98.6 111 19 103/66 (78) 98 12/07/18 20:00 45 12/07/18 20:00 Mechanical Ventilator Mechanical Ventilator Mechanical Ventilator 12/07/18 19:30 113 19 35 12/07/18 19:00 112 19 103/61 (75) 98 12/07/18 18:00 113 20 95/59 (71) 93 12/07/18 17:29 126 24 30 12/07/18 17:01 102/71 12/07/18 17:00 115 20 112/74 (87) 100 Height (Feet): 5 Height (Inches): 5.00 Weight (Pounds): 135 Objective General Appearance: WD/WN, no apparent distress Lines, tubes and drains: central line HEENT: normocephalic, atraumatic Neck: non-tender, normal alignment Cardiovascular/Chest: normal peripheral pulses, normal rate, regular rhythm Abdomen: normal bowel sounds, non tender Extremities: normal range of motion Skin Exam: normal pigmentation 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 grossly normal Laboratory Tests Test 12/07/18 20:00 12/08/18 04:20 Vancomycin Level Trough 10.1 ug/mL (5.0-12.0) White Blood Count 11.5 K/UL (4.8-10.8) H Red Blood Count 2.52 M/UL (4.70-6.10) L Hemoglobin 8.0 G/DL (14.2-18.0) L Hematocrit 23.8 % (42.0-52.0) L Mean Corpuscular Volume 94 FL (80-99) Mean Corpuscular Hemoglobin 31.7 PG (27.0-31.0) H Mean Corpuscular Hemoglobin Concent 33.6 G/DL (32.0-36.0) Red Cell Distribution Width 15.8 % (11.6-14.8) H Platelet Count 200 K/UL (150-450) Mean Platelet Volume 6.3 FL (6.5-10.1) L Neutrophils (%) (Auto) % (45.0-75.0) Lymphocytes (%) (Auto) % (20.0-45.0) Monocytes (%) (Auto) % (1.0-10.0) Eosinophils (%) (Auto) % (0.0-3.0) Basophils (%) (Auto) % (0.0-2.0) Differential Total Cells Counted 100 Neutrophils % (Manual) 90 % (45-75) H Lymphocytes % (Manual) 4 % (20-45) L Monocytes % (Manual) 2 % (1-10) Eosinophils % (Manual) 1 % (0-3) Basophils % (Manual) 2 % (0-2) Band Neutrophils 1 % (0-8) Platelet Estimate Adequate Platelet Morphology Normal Hypochromasia 3+ Anisocytosis 1+ Sodium Level 142 MMOL/L (136-145) Potassium Level 3.1 MMOL/L (3.5-5.1) L Chloride Level 110 MMOL/L (98-107) H Carbon Dioxide Level 23 MMOL/L (21-32) Anion Gap 9 mmol/L (5-15) Blood Urea Nitrogen 9 mg/dL (7-18) Creatinine 0.5 MG/DL (0.55-1.30) #L Estimat Glomerular Filtration Rate mL/min (>60) Glucose Level 83 MG/DL (74-106) Calcium Level 7.3 MG/DL (8.5-10.1) L Phosphorus Level 2.3 MG/DL (2.5-4.9) L Magnesium Level 1.4 MG/DL (1.8-2.4) L Total Bilirubin 1.5 MG/DL (0.2-1.0) H Direct Bilirubin 0.9 MG/DL (0.0-0.3) H Aspartate Amino Transf (AST/SGOT) 10 U/L (15-37) L Alanine Aminotransferase (ALT/SGPT) 7 U/L (12-78) L Alkaline Phosphatase 65 U/L (46-116) C-Reactive Protein, Quantitative 13.2 mg/dL (0.00-0.90) H Total Protein 3.7 G/DL (6.4-8.2) L Albumin 1.5 G/DL (3.4-5.0) L Globulin 2.2 g/dL Albumin/Globulin Ratio 0.7 (1.0-2.7) L Current Medications Medications (Trade) Dose Ordered Sig/Pauline Route PRN Reason Start Time Stop Time Status Last Admin Dose Admin Acetaminophen (Tylenol) 650 mg Q4H PRN GT T>100.5 11/27/18 18:18 12/22/18 18:17 12/03/18 13:02 Chlorhexidine Gluconate (Marycarmen-Hex 2%) 1 applic DAILY@1999 TOPIC 11/30/18 20:00 12/30/18 19:59 12/07/18 20:13 Dextrose (Dextrose 50%) 25 ml Q30M PRN IV Hypoglycemia 11/27/18 18:18 12/18/18 18:17 Dextrose (Dextrose 50%) 50 ml Q30M PRN IV Hypoglycemia 11/27/18 18:18 12/18/18 18:17 Hydralazine HCl (Apresoline) 10 mg Q4H PRN IV Systolic BP greater than 170 12/05/18 15:00 01/03/19 16:44 Hydrocortisone (Proctosol-HC Cream) 1 applic Q12HR TOPIC 12/02/18 13:00 01/01/19 12:59 12/08/18 08:36 Lactobacillus Acidophilus (Culturelle) 1 tab THREE TIMES A DAY ORAL 11/29/18 18:00 12/29/18 17:59 12/03/18 17:00 Metronidazole 100 ml @ 100 mls/hr Q8HR IVPB 12/04/18 14:00 12/11/18 13:59 12/08/18 14:14 Midazolam HCl (Versed 2mg/2ml vial) 1 mg Q1H PRN IVP SEDATION 12/02/18 20:30 01/01/19 20:29 Morphine Sulfate (Morphine Sulfate) 2 mg Q1H PRN IVP For Pain scale 4-7 12/02/18 20:23 12/09/18 20:22 12/06/18 18:42 Norepinephrine Bitartrate 8 mg/ Sodium Chloride 250 ml @ 0 mls/hr Q24H IV 12/03/18 18:03 01/02/19 18:02 12/03/18 18:09 Pantoprazole (Protonix) 40 mg EVERY 12 HOURS IVP 12/07/18 21:00 01/06/19 20:59 12/08/18 08:35 Sodium Hypochlorite (Dakin's Quarter Strength) 1 applic DAILY TOPIC 12/04/18 12:00 01/03/19 11:59 12/08/18 08:37 Sodium Phosphate 30 mm/Sodium Chloride 285 ml @ 47.5 mls/hr ONCE ONCE IV 12/08/18 12:45 12/08/18 18:44 12/08/18 12:32 Vancomycin HCl (Vanco rx to dose) 1 ea DAILY PRN MISC Per rx protocol 11/27/18 18:18 12/27/18 18:17 Vancomycin HCl 750 mg/Sodium Chloride 275 ml @ 183.333 mls/hr Q12HR IVPB 12/07/18 21:00 12/15/18 23:59 12/08/18 08:35 Neva Yee M.D. Dec 08, 2018 16:35
[2018-12-08] MEDS ORDERED: Amikacin Rx to dose MISC PRN (16:45)
--- NOTE | 2018-12-08 17:00 | NUR ---
NURSE NOTES: Vital AF 1.2 tube feeds started per Dr Eugene and ordered to not advance the rate. Will continue to monitor.
[2018-12-08] MEDS ORDERED: Amikacin 900 MG in NS 110 ML IV SCH (18:00)
--- NOTE | 2018-12-08 18:16 | Cardiac Electrophysiology PN ---
Assessment/Plan Assessment/Plan 1. Post op atrial fib with RVR 170s. Got Dig 0.25 iv. Strict NPO. Converted to SR with frequent PAC and PVCs 2. S/P Septic and hemorrhagic shock . Off pressors . Echo EF 55% 3. Acute right leg DVT and Bilateral UE DVT. S/P IVC filter . Off Eliquis for severe anemia and GI bleed 4. Staph aureous bacteremia. On Abx per Dr Yee FLORINA pending consent and patient stability 5. Parkinsonism. 6. COPD. 7. UTI. 8. Severe anemia and rectal bleed. S/P Colonoscopy on 11/20/18 and 11/29/18 and transfusion No obvious source. S/P EGD by Dr Dallas and Anterior duodenostomy for control of large posterior duodenal ulcer hemorrhage by Dr Eugene on 12/02/18 9. Seizure disorder. 10. S/P PEG 11. Respiratory failure, extubated today DW RN Subjective Subjective In ICU, extubated today in SR. Objective Last 24 Hour Vital Signs Date Time Temp Pulse Resp B/P (MAP) Pulse Ox O2 Delivery O2 Flow Rate FiO2 12/08/18 18:00 101 18 114/70 (85) 99 12/08/18 17:25 121/82 12/08/18 17:00 103 19 121/82 (95) 100 12/08/18 16:00 98.3 104 20 115/64 (81) 99 12/08/18 16:00 Nasal Cannula 3.0 Nasal Cannula 3.0 Nasal Cannula 3.0 Nasal Cannula 3.0 12/08/18 16:00 96 12/08/18 15:00 113 24 125/77 (93) 97 12/08/18 14:00 110 22 104/50 (68) 95 12/08/18 13:00 99 21 110/63 (79) 98 12/08/18 12:00 106 12/08/18 12:00 Nasal Cannula 3.0 Nasal Cannula 3.0 Nasal Cannula 3.0 Nasal Cannula 3.0 12/08/18 12:00 99.0 104 21 112/74 (87) 98 12/08/18 11:00 105 21 109/67 (81) 98 12/08/18 10:40 Nasal Cannula 3.0 32 12/08/18 10:40 98 Nasal Cannula 3.0 32 12/08/18 10:00 112 22 107/70 (82) 97 12/08/18 09:25 113 24 30 12/08/18 09:25 98 12/08/18 09:00 112 14 98/63 (75) 98 12/08/18 08:00 45 12/08/18 08:00 Mechanical Ventilator Mechanical Ventilator Mechanical Ventilator 12/08/18 08:00 99.2 112 16 98/77 (84) 97 12/08/18 08:00 116 12/08/18 07:10 117 14 30 12/08/18 07:00 111 20 108/69 (82) 98 12/08/18 06:00 117 20 110/70 (83) 98 12/08/18 05:09 115 15 30 12/08/18 05:00 115 18 114/76 (89) 98 12/08/18 04:00 45 12/08/18 04:00 98.6 114 18 100/65 (77) 98 12/08/18 04:00 Mechanical Ventilator Mechanical Ventilator Mechanical Ventilator 12/08/18 04:00 114 12/08/18 03:09 112 20 40 12/08/18 03:00 117 20 98/65 (76) 98 12/08/18 02:00 107 20 97/68 (78) 98 12/08/18 01:16 113 21 40 12/08/18 01:00 118 20 113/66 (82) 98 12/08/18 00:00 45 12/08/18 00:00 Mechanical Ventilator Mechanical Ventilator Mechanical Ventilator 12/08/18 00:00 98.4 118 19 110/66 (81) 98 12/07/18 23:19 113 22 40 12/07/18 23:00 120 19 107/66 (80) 98 12/07/18 22:00 115 19 112/70 (84) 98 12/07/18 21:30 111 22 35 12/07/18 21:00 115 19 102/68 (79) 98 12/07/18 20:30 111 12/07/18 20:00 98.6 111 19 103/66 (78) 98 12/07/18 20:00 45 12/07/18 20:00 Mechanical Ventilator Mechanical Ventilator Mechanical Ventilator 12/07/18 19:30 113 19 35 12/07/18 19:00 112 19 103/61 (75) 98 Intake and Output 12/07/18 12/08/18 18:59 06:59 Intake Total 855 ml 466.66 ml Output Total 135 ml 575 ml Balance 720 ml -108.34 ml IV Total 855 ml 466.66 ml Output Urine Total 135 ml 365 ml Gastric Drainage Total 200 ml Drainage Total 10 ml # Bowel Movements 5 2 Laboratory Tests Test 12/07/18 20:00 12/08/18 04:20 Vancomycin Level Trough 10.1 ug/mL (5.0-12.0) White Blood Count 11.5 K/UL (4.8-10.8) H Red Blood Count 2.52 M/UL (4.70-6.10) L Hemoglobin 8.0 G/DL (14.2-18.0) L Hematocrit 23.8 % (42.0-52.0) L Mean Corpuscular Volume 94 FL (80-99) Mean Corpuscular Hemoglobin 31.7 PG (27.0-31.0) H Mean Corpuscular Hemoglobin Concent 33.6 G/DL (32.0-36.0) Red Cell Distribution Width 15.8 % (11.6-14.8) H Platelet Count 200 K/UL (150-450) Mean Platelet Volume 6.3 FL (6.5-10.1) L Neutrophils (%) (Auto) % (45.0-75.0) Lymphocytes (%) (Auto) % (20.0-45.0) Monocytes (%) (Auto) % (1.0-10.0) Eosinophils (%) (Auto) % (0.0-3.0) Basophils (%) (Auto) % (0.0-2.0) Differential Total Cells Counted 100 Neutrophils % (Manual) 90 % (45-75) H Lymphocytes % (Manual) 4 % (20-45) L Monocytes % (Manual) 2 % (1-10) Eosinophils % (Manual) 1 % (0-3) Basophils % (Manual) 2 % (0-2) Band Neutrophils 1 % (0-8) Platelet Estimate Adequate Platelet Morphology Normal Hypochromasia 3+ Anisocytosis 1+ Sodium Level 142 MMOL/L (136-145) Potassium Level 3.1 MMOL/L (3.5-5.1) L Chloride Level 110 MMOL/L (98-107) H Carbon Dioxide Level 23 MMOL/L (21-32) Anion Gap 9 mmol/L (5-15) Blood Urea Nitrogen 9 mg/dL (7-18) Creatinine 0.5 MG/DL (0.55-1.30) #L Estimat Glomerular Filtration Rate mL/min (>60) Glucose Level 83 MG/DL (74-106) Calcium Level 7.3 MG/DL (8.5-10.1) L Phosphorus Level 2.3 MG/DL (2.5-4.9) L Magnesium Level 1.4 MG/DL (1.8-2.4) L Total Bilirubin 1.5 MG/DL (0.2-1.0) H Direct Bilirubin 0.9 MG/DL (0.0-0.3) H Aspartate Amino Transf (AST/SGOT) 10 U/L (15-37) L Alanine Aminotransferase (ALT/SGPT) 7 U/L (12-78) L Alkaline Phosphatase 65 U/L (46-116) C-Reactive Protein, Quantitative 13.2 mg/dL (0.00-0.90) H Total Protein 3.7 G/DL (6.4-8.2) L Albumin 1.5 G/DL (3.4-5.0) L Globulin 2.2 g/dL Albumin/Globulin Ratio 0.7 (1.0-2.7) L Objective HEAD AND NECK: No JVD LUNGS: Decreased breath sounds. CARDIOVASCULAR: Regular S1 and S2 with no gallop . ABDOMEN: Soft. G-tube intact. S/P Laparatomy with ANGIE drain EXTREMITIES: Upper extremity and LE edema. Earl Washington MD Dec 08, 2018 18:16
--- NOTE | 2018-12-08 19:18 | NUR ---
HAND-OFF: Report given to Damaris DUNN.
--- NOTE | 2018-12-08 19:36 | NUR ---
CASE MANAGEMENT: REVIEW SI: PERFORATED DUODENAL ULCER . GI BLEED EX-LAPAROTOMY DUODENAL ULCER REPAIR 12/02 COLONOSCOPY 11/20 98.3 HR 112 RR 16 BP 98/63 SAT 97% MECH VENT FIO2 45 WBC 11.5 H/H 8.0/23.8 IS: LEVOPHED GTT AMIKACIN IV Q36HR FLAGYL IV 8HR VANCO IV Q12HR LACTOBACILLUS PO TID RESUME GTUBE FEEDING @10ML/HR ICU STATUS DCP: PATIENT IS FROM [facility]
--- NOTE | 2018-12-08 19:38 | NUR ---
NURSE NOTES: pt awake and alert follows simple command nan verval on 2l n/c no acute resp distres notes reposition and suction tolerating tube feeding no residual
--- NOTE | 2018-12-08 19:45 | Progress Note ---
DATE: 12/08/2018 SUBJECTIVE: This is a 73-year-old patient with sepsis and pneumonia, currently in ICU. This patient still has lot of altered mental status, confusion, worsened by stress of his medical illness that is why his attending has requested daily psychiatric consultation. MENTAL STATUS EXAMINATION: This is a 73-year-old male. Appearance is disheveled. Attitude, irritable and agitated. Affect, guarded and restricted. Intellect poor. Mood, depressed and anxious. Motor activity, psychomotor agitation. Attention span is poor. Orientation x2. Speech is low volume, slurred. Thought process, disorganized and illogical. Insight and judgment is poor. DIAGNOSIS: Major depressive disorder, mild and recurrent with psychotic features, rule out dementia with psychosis. PLAN: Treat this patient with medications to stabilize his mood. Provided him with 20 minutes of behavioral management. Chart reviewed and discussed with staff. Laith Mason M.D. DR: Delia JOB#: [id number] CC:
[2018-12-08] MEDS: Dyna-Hex 2% Top Sol 2oz TOPIC SCH (20:51)
--- NOTE | 2018-12-08 22:00 | NUR ---
NURSE NOTES: reposition and suction
[2018-12-09] VITALS (18 sets, daily range): BP systolic 101–135; BP diastolic 61–94
--- NOTE | 2018-12-09 | NUR ---
reposition and suction condition unchange
--- NOTE | 2018-12-09 02:00 | NUR ---
NURSE NOTES: vs stable reposition and suction o2 sat 95-99 o/o
--- NOTE | 2018-12-09 04:00 | NUR ---
NURSE NOTES: complete bed bath reposition and suction wound dressing dry and intact and iv infusing well
[2018-12-09 05:46] LABS: HEMATOCRIT 26.1 % (42.0-52.0); HEMOGLOBIN 8.4 G/DL (14.2-18.0); MEAN CORPUSCULAR VOLUME 96 FL (80-99); PLATELET COUNT 237 K/UL (150-450); RED BLOOD COUNT 2.73 M/UL (4.70-6.10); RED CELL DISTRIBUTION WIDTH 16.9 % (11.6-14.8); WHITE BLOOD COUNT 12.4 K/UL (4.8-10.8)
--- NOTE | 2018-12-09 06:00 | NUR ---
NURSE NOTES: awake hr 124 s tachy 02 sat 95-100 o/o no temp PT +4 GENERALIGE EDIMA O2 [id number] O/O
[2018-12-09 06:19] LABS: ALANINE AMINOTRANSFERASE 7 U/L (12-78); ALBUMIN 1.5 G/DL (3.4-5.0); ALBUMIN/GLOBULIN RATIO 0.6 (1.0-2.7); ALKALINE PHOSPHATASE 88 U/L (46-116); ANION GAP 11 mmol/L (5-15); ASPARTATE AMINO TRANSFERASE 11 U/L (15-37); BILIRUBIN,TOTAL 1.4 MG/DL (0.2-1.0); BLOOD UREA NITROGEN 8 mg/dL (7-18); CALCIUM 7.4 MG/DL (8.5-10.1); CARBON DIOXIDE 23 MMOL/L (21-32); CHLORIDE 111 MMOL/L (98-107); CREATININE 0.5 MG/DL (0.55-1.30); POTASSIUM 2.9 MMOL/L (3.5-5.1); SODIUM 145 MMOL/L (136-145)
[2018-12-09 06:53] LABS: BILIRUBIN,DIRECT 0.9 MG/DL (0.0-0.3)
--- NOTE | 2018-12-09 07:06 | NUR ---
HAND-OFF: Report given Angie DUNN USING SBAR .
--- NOTE | 2018-12-09 07:23 | NUR ---
NURSE NOTES: Report received from Damaris DUNN. Pt awake, opens eyes, and follows simple commands. Pt ST on monitoring and evaluation advisor. Pt on 2 L 02 saturating 99%. GT to Vital AF 1.2 tube feeding at 10cc/hr, tolerating with no residual. Bradley noted and intact with tea colored urine. Abdominal incision with carmel, clean, dry and intact. ANGIE drain on right abdomen with minimal serosanguineous output. Sacral stage IV with dressing clean, dry and intact, pt on p200 mattress. Right subclavian noted with TKO. Safety measures in place with bed locked and in lowest position, side rails x 3 up and bed alarm on. Will continue to monitor and continue plan of care.
[2018-12-09] MEDS: Lactobacillus-GG tablet ORAL SCH ×3 (08:25→17:37)
[2018-12-09] MEDS: Dakin's 0.125% Soln (Quarter Strength) 16oz TOPIC SCH (08:25)
[2018-12-09] MEDS: Hydrocortisone 2.5% Cream - 30gm TOPIC SCH ×2 (08:25→21:00)
[2018-12-09] MEDS: Pantoprazole Inj IVP SCH ×2 (08:25→20:12)
[2018-12-09] MEDS: Vancomycin 750mg/NS 275ml IVPB SCH ×2 (08:26)
--- NOTE | 2018-12-09 09:21 | Hematology/Onc Progress Note ---
Assessment/Plan Assessment/Plan Assessment/Plan # Anemia due to GI Bleed, other causes exist, multifactorial, is s/p lap site, egd done --> Anemia workup has been reviewed, FERRITIN 831 --> No evidence of hemolysis is noted, peripheral smear has been reviewed. --> Hgb goal >7. Transfuse prn. --> Epogen or iron at this time is not particularly indicated --> Medications have been reviewed --> low threshold for gi evaluation in case has occult +--> endoscopy and colo pending --> hgb trend: 7.4-->9.0-->9-->8.6->8.9-->6.1-->9.8--> 7.3->8.8-->9-->9.5-->8.4- ->8 --> Blood tx: 1 unit 11/19, 11/27, 12/02 # Acute right leg DVT. Heparin drip DCed for rectal bleed. s/p IVC FILTER --> agree with need for this given coagulant contraindication --> appreciate gi and pulm/cc recs --> UPPER EXT DVT noted as well --> have discontinued eliquis given acute GI bleed on 11/27/18, ON HOLD --> in icu as of 11/27, remains # Leukocytosis due to sepsis. --> Monitor for improvement --> urine and blood cultures are both positive, mrsa positive --> IV abx per id --> trend wbc 11.6--> 16-->8 # Thrombocytopenia likely related to infection --> trend plt 111k-->129k-->148k-->174k-->200k --> likely was related to infection --> meds reviewed # Sinus tach due to anemia and sepsis and beta danya withdrawal as was on Metoprolol 12.5 bid at [facility] --> per cards recs # Hypertension. Hold Metoprolol as BP is 90s. --> clonidine per cards # Respiratory failure now extubated The timing of this note does not necessarily reflect the time of the patient was seen. GREATLY APPRECIATE CONSULTATION. Subjective Constitutional: Denies: no symptoms, chills, fever, malaise, weakness, other HEENT: Denies: no symptoms, eye pain, blurred vision, tearing, double vision, ear pain, ear discharge, nose pain, nose congestion, throat pain, throat swelling, mouth pain, mouth swelling, other Cardiovascular: Denies: no symptoms, chest pain, edema, irregular heart rate, lightheadedness, palpitations, syncope, other Respiratory: Denies: no symptoms, cough, shortness of breath, SOB with excertion, SOB at rest, sputum, wheezing, other Gastrointestinal/Abdominal: Denies: no symptoms, abdomen distended, abdominal pain, black stools, tarry stools, blood in stool, constipated, diarrhea, difficulty swallowing, nausea, poor appetite, poor fluid intake, rectal bleeding , vomiting, other Genitourinary: Denies: no symptoms, burning, discharge, frequency, flank pain, hematuria, incontinence, pain, urgency, other Neurologic/Psychiatric: Denies: no symptoms, anxiety, depressed, emotional problems, headache, numbness, paresthesia, pre-existing deficit, seizure, tingling, tremors, weakness, other Endocrine: Denies: no symptoms, excessive sweating, flushing, intolerance to cold, intolerance to heat, increased hunger, increased thirst, increased urine, unexplained weight gain, unexplained weight loss, other Allergies: Coded Allergies: No Known Allergies (Unverified , 11/18/18) Subjective Subjective 11/20: Colonoscopy for today. S/P 1 unit prbc. 11/21: Pt awake and nonverbal. Hgb at 7.4, blood tx ordered. 11/23: Pt no acute respiratory distress. CXR Increased bilateral lower lobe atelectasis or airspace consolidation. Underlying pneumonia may be present. Small bilateral pleural effusions. 11/24: no events, no f/c noted, no bleeding, anemia panel reviewed, s/p ivc filter 11/25: No acute events, no signs of distress. DC planning 11/26: no events, no bleeding, noted to have b/l upper ext dvt, acute started on elqiuis 11/27: sbo was ow in the am, transferred to the icu, hgb low requiring transfusion 11/28: Left UE edema > Right UE, s/p blood transfusion 11/27. 11/29:pt is on Venti mask, lethargic. 11/30:pt seen in am, with thick sputum per suctioning. 12/02: no events reported, hgb is better, seen by cards, pulm 12/03: no events, no chills, remains in icu 12/04: is off vanco po, remains in the icu, hgb 9 12/05: no events, no f/c, labs reviwed, on cpap 12/06: no events, bleeding improved, na is better as well 12/08: remains intubated on vent, eyes open 12/09: extubated, doing better, no f/c, no events reported Objective Objective Current Medications Medications (Trade) Dose Ordered Sig/Pauline Route PRN Reason Start Time Stop Time Status Last Admin Dose Admin Acetaminophen (Tylenol) 650 mg Q4H PRN GT T>100.5 11/27/18 18:18 12/22/18 18:17 12/03/18 13:02 Amikacin Protocol (Amikacin pharmacy to dose) 1 ea DAILY PRN MISC Per rx protocol 12/08/18 16:45 01/07/19 16:44 Amikacin Sulfate 900 mg/Sodium Chloride 113.6 ml @ 113.6 mls/ hr Q24H IV 12/09/18 18:00 12/16/18 17:59 Chlorhexidine Gluconate (Marycarmen-Hex 2%) 1 applic DAILY@1999 TOPIC 11/30/18 20:00 12/30/18 19:59 12/08/18 20:51 Dextrose (Dextrose 50%) 25 ml Q30M PRN IV Hypoglycemia 11/27/18 18:18 12/18/18 18:17 Dextrose (Dextrose 50%) 50 ml Q30M PRN IV Hypoglycemia 11/27/18 18:18 12/18/18 18:17 Hydralazine HCl (Apresoline) 10 mg Q4H PRN IV Systolic BP greater than 170 12/05/18 15:00 01/03/19 16:44 Hydrocortisone (Proctosol-HC Cream) 1 applic Q12HR TOPIC 12/02/18 13:00 01/01/19 12:59 12/09/18 08:25 Lactobacillus Acidophilus (Culturelle) 1 tab THREE TIMES A DAY ORAL 11/29/18 18:00 12/29/18 17:59 12/09/18 08:25 Magnesium Sulfate 100 ml @ 100 mls/hr Q1H IVPB 12/09/18 09:00 12/09/18 12:59 Metronidazole 100 ml @ 100 mls/hr Q8HR IVPB 12/04/18 14:00 12/11/18 13:59 12/09/18 05:44 Midazolam HCl (Versed 2mg/2ml vial) 1 mg Q1H PRN IVP SEDATION 12/02/18 20:30 01/01/19 20:29 Morphine Sulfate (Morphine Sulfate) 2 mg Q1H PRN IVP For Pain scale 4-7 12/02/18 20:23 12/09/18 20:22 12/06/18 18:42 Norepinephrine Bitartrate 8 mg/ Sodium Chloride 250 ml @ 0 mls/hr Q24H IV 12/03/18 18:03 01/02/19 18:02 12/03/18 18:09 Pantoprazole (Protonix) 40 mg EVERY 12 HOURS IVP 12/07/18 21:00 01/06/19 20:59 12/09/18 08:25 Potassium Chloride 100 ml @ 100 mls/hr Q1HR IVPB 12/09/18 09:00 12/09/18 14:59 Sodium Hypochlorite (Dakin's Quarter Strength) 1 applic DAILY TOPIC 12/04/18 12:00 01/03/19 11:59 12/09/18 08:25 Vancomycin HCl (Vanco rx to dose) 1 ea DAILY PRN MISC Per rx protocol 11/27/18 18:18 12/27/18 18:17 Vancomycin HCl 750 mg/Sodium Chloride 275 ml @ 183.333 mls/hr Q12HR IVPB 12/07/18 21:00 12/15/18 23:59 12/09/18 08:26 Last 24 Hour Vital Signs Date Time Temp Pulse Resp B/P (MAP) Pulse Ox O2 Delivery O2 Flow Rate FiO2 12/09/18 08:00 109 12/09/18 08:00 109 17 117/72 (87) 99 12/09/18 08:00 Nasal Cannula 3.0 Nasal Cannula 3.0 Nasal Cannula 3.0 Nasal Cannula 3.0 12/09/18 07:00 115 20 135/94 (108) 99 12/09/18 06:00 117 19 125/85 (98) 99 117 12/09/18 05:00 115 20 119/80 (93) 99 115 12/09/18 04:00 98.4 120 20 126/63 (84) 96 120 12/09/18 04:00 Nasal Cannula 3.0 Nasal Cannula 3.0 Nasal Cannula 3.0 Nasal Cannula 3.0 12/09/18 04:00 124 12/09/18 03:00 99 16 116/72 (87) 98 126 12/09/18 02:00 110 16 121/70 (87) 96 12/09/18 01:00 103 19 116/74 (88) 95 12/09/18 00:00 98.5 101 21 95 12/09/18 00:00 Nasal Cannula 3.0 Nasal Cannula 3.0 Nasal Cannula 3.0 Nasal Cannula 3.0 12/08/18 23:00 100 18 118/81 (93) 97 12/08/18 22:00 101 20 126/73 (90) 99 12/08/18 21:00 98.5 106 21 125/100 (108) 99 12/08/18 20:08 99 Nasal Cannula 2.0 28 12/08/18 20:00 Nasal Cannula 3.0 Nasal Cannula 3.0 Nasal Cannula 3.0 Nasal Cannula 3.0 12/08/18 20:00 103 18 116/65 (82) 100 12/08/18 20:00 99 12/08/18 19:00 104 18 119/74 (89) 100 12/08/18 18:00 101 18 114/70 (85) 99 12/08/18 17:25 121/82 12/08/18 17:00 103 19 121/82 (95) 100 12/08/18 16:00 98.3 104 20 115/64 (81) 99 12/08/18 16:00 Nasal Cannula 3.0 Nasal Cannula 3.0 Nasal Cannula 3.0 Nasal Cannula 3.0 12/08/18 16:00 96 12/08/18 15:00 113 24 125/77 (93) 97 12/08/18 14:00 110 22 104/50 (68) 95 12/08/18 13:00 99 21 110/63 (79) 98 12/08/18 12:00 106 12/08/18 12:00 Nasal Cannula 3.0 Nasal Cannula 3.0 Nasal Cannula 3.0 Nasal Cannula 3.0 12/08/18 12:00 99.0 104 21 112/74 (87) 98 12/08/18 11:00 105 21 109/67 (81) 98 12/08/18 10:40 Nasal Cannula 3.0 32 12/08/18 10:40 98 Nasal Cannula 3.0 32 12/08/18 10:00 112 22 107/70 (82) 97 12/08/18 09:25 113 24 30 12/08/18 09:25 98 12/08/18 09:00 112 14 98/63 (75) 98 12/08/18 08:00 45 12/08/18 08:00 Mechanical Ventilator Mechanical Ventilator Mechanical Ventilator 12/08/18 08:00 99.2 112 16 98/77 (84) 97 12/08/18 08:00 116 12/08/18 07:10 117 14 30 12/08/18 07:00 111 20 108/69 (82) 98 12/08/18 06:00 117 20 110/70 (83) 98 12/08/18 05:09 115 15 30 12/08/18 05:00 115 18 114/76 (89) 98 12/08/18 04:00 45 12/08/18 04:00 98.6 114 18 100/65 (77) 98 12/08/18 04:00 Mechanical Ventilator Mechanical Ventilator Mechanical Ventilator 12/08/18 04:00 114 12/08/18 03:09 112 20 40 12/08/18 03:00 117 20 98/65 (76) 98 12/08/18 02:00 107 20 97/68 (78) 98 12/08/18 01:16 113 21 40 12/08/18 01:00 118 20 113/66 (82) 98 12/08/18 00:00 45 12/08/18 00:00 Mechanical Ventilator Mechanical Ventilator Mechanical Ventilator 12/08/18 00:00 98.4 118 19 110/66 (81) 98 12/07/18 23:19 113 22 40 12/07/18 23:00 120 19 107/66 (80) 98 12/07/18 22:00 115 19 112/70 (84) 98 12/07/18 21:30 111 22 35 12/07/18 21:00 115 19 102/68 (79) 98 12/07/18 20:30 111 12/07/18 20:00 98.6 111 19 103/66 (78) 98 12/07/18 20:00 45 12/07/18 20:00 Mechanical Ventilator Mechanical Ventilator Mechanical Ventilator 12/07/18 19:30 113 19 35 12/07/18 19:00 112 19 103/61 (75) 98 12/07/18 18:00 113 20 95/59 (71) 93 12/07/18 17:29 126 24 30 12/07/18 17:01 102/71 12/07/18 17:00 115 20 112/74 (87) 100 12/07/18 16:00 Mechanical Ventilator Mechanical Ventilator Mechanical Ventilator 12/07/18 16:00 115 12/07/18 16:00 45 12/07/18 16:00 98.7 115 21 102/71 (81) 98 12/07/18 15:12 116 19 30 12/07/18 15:00 103 18 102/74 (83) 97 12/07/18 14:00 105 17 122/70 (87) 99 12/07/18 13:21 109 14 30 12/07/18 13:00 113 17 118/71 (87) 99 12/07/18 12:00 Mechanical Ventilator Mechanical Ventilator Mechanical Ventilator 12/07/18 12:00 99.0 118 19 114/60 (78) 100 12/07/18 12:00 104 12/07/18 12:00 45 12/07/18 11:00 109 18 111/64 (80) 99 12/07/18 10:37 105 19 30 12/07/18 10:00 120 22 117/83 (94) 99 Intake and Output 12/08/18 12/09/18 18:59 06:59 Intake Total 635.5 ml 1595.000 ml Output Total 360 ml 1380 ml Balance 275.5 ml 215.000 ml Intake Oral 120 ml Free Water 110 ml IV Total 635.5 ml 425.000 ml Tube Feeding 120 ml Blood Product 800 ml Other 20 ml Output Urine Total 360 ml 530 ml Stool Total 200 ml Gastric Drainage Total 200 ml Drainage Total 50 ml Estimated Blood Loss 0 ml Other 400 ml # Bowel Movements 3 4 Labs Test 12/07/18 05:43 12/07/18 06:25 12/07/18 20:00 12/08/18 04:20 White Blood Count 9.7 K/UL (4.8-10.8) 11.5 K/UL (4.8-10.8) Red Blood Count 2.71 M/UL (4.70-6.10) 2.52 M/UL (4.70-6.10) Hemoglobin 8.4 G/DL (14.2-18.0) 8.0 G/DL (14.2-18.0) Hematocrit 25.2 % (42.0-52.0) 23.8 % (42.0-52.0) Mean Corpuscular Volume 93 FL (80-99) 94 FL (80-99) Mean Corpuscular Hemoglobin 31.0 PG (27.0-31.0) 31.7 PG (27.0-31.0) Mean Corpuscular Hemoglobin Concent 33.3 G/DL (32.0-36.0) 33.6 G/DL (32.0-36.0) Red Cell Distribution Width 16.3 % (11.6-14.8) 15.8 % (11.6-14.8) Platelet Count 204 K/UL (150-450) 200 K/UL (150-450) Mean Platelet Volume 6.2 FL (6.5-10.1) 6.3 FL (6.5-10.1) Neutrophils (%) (Auto) 83.4 % (45.0-75.0) % (45.0-75.0) Lymphocytes (%) (Auto) 8.4 % (20.0-45.0) % (20.0-45.0) Monocytes (%) (Auto) 6.5 % (1.0-10.0) % (1.0-10.0) Eosinophils (%) (Auto) 1.4 % (0.0-3.0) % (0.0-3.0) Basophils (%) (Auto) 0.4 % (0.0-2.0) % (0.0-2.0) Sodium Level 145 MMOL/L (136-145) 142 MMOL/L (136-145) Potassium Level 3.2 MMOL/L (3.5-5.1) 3.1 MMOL/L (3.5-5.1) Chloride Level 113 MMOL/L (98-107) 110 MMOL/L (98-107) Carbon Dioxide Level 23 MMOL/L (21-32) 23 MMOL/L (21-32) Anion Gap 9 mmol/L (5-15) 9 mmol/L (5-15) Blood Urea Nitrogen 7 mg/dL (7-18) 9 mg/dL (7-18) Creatinine 0.3 MG/DL (0.55-1.30) 0.5 MG/DL (0.55-1.30) Estimat Glomerular Filtration Rate mL/min (>60) mL/min (>60) Glucose Level 93 MG/DL (74-106) 83 MG/DL (74-106) Uric Acid 4.0 MG/DL (2.6-7.2) Calcium Level 7.6 MG/DL (8.5-10.1) 7.3 MG/DL (8.5-10.1) Phosphorus Level 2.5 MG/DL (2.5-4.9) 2.3 MG/DL (2.5-4.9) Magnesium Level 1.8 MG/DL (1.8-2.4) 1.4 MG/DL (1.8-2.4) Total Bilirubin 1.4 MG/DL (0.2-1.0) 1.5 MG/DL (0.2-1.0) Direct Bilirubin 0.6 MG/DL (0.0-0.3) 0.9 MG/DL (0.0-0.3) Aspartate Amino Transf (AST/SGOT) 12 U/L (15-37) 10 U/L (15-37) Alanine Aminotransferase (ALT/SGPT) 8 U/L (12-78) 7 U/L (12-78) Alkaline Phosphatase 63 U/L (46-116) 65 U/L (46-116) C-Reactive Protein, Quantitative 11.3 mg/dL (0.00-0.90) 13.2 mg/dL (0.00-0.90) Pro-B-Type Natriuretic Peptide 1883 pg/mL (0-125) Total Protein 4.0 G/DL (6.4-8.2) 3.7 G/DL (6.4-8.2) Albumin 1.6 G/DL (3.4-5.0) 1.5 G/DL (3.4-5.0) Globulin 2.4 g/dL 2.2 g/dL Albumin/Globulin Ratio 0.7 (1.0-2.7) 0.7 (1.0-2.7) Arterial Blood pH 7.478 (7.350-7.450) Arterial Blood Partial Pressure CO2 29.9 mmHg (35.0-45.0) Arterial Blood Partial Pressure O2 65.5 mmHg (75.0-100.0) Arterial Blood HCO3 21.7 mmol/L (22.0-26.0) Arterial Blood Oxygen Saturation 92.9 % (95-100) Arterial Blood Base Excess -1.4 (-2-2) Blake Test Positive Vancomycin Level Trough 10.1 ug/mL (5.0-12.0) Differential Total Cells Counted 100 Neutrophils % (Manual) 90 % (45-75) Lymphocytes % (Manual) 4 % (20-45) Monocytes % (Manual) 2 % (1-10) Eosinophils % (Manual) 1 % (0-3) Basophils % (Manual) 2 % (0-2) Band Neutrophils 1 % (0-8) Platelet Estimate Adequate Platelet Morphology Normal Hypochromasia 3+ Anisocytosis 1+ Test 12/09/18 04:30 White Blood Count 12.4 K/UL (4.8-10.8) Red Blood Count 2.73 M/UL (4.70-6.10) Hemoglobin 8.4 G/DL (14.2-18.0) Hematocrit 26.1 % (42.0-52.0) Mean Corpuscular Volume 96 FL (80-99) Mean Corpuscular Hemoglobin 31.0 PG (27.0-31.0) Mean Corpuscular Hemoglobin Concent 32.3 G/DL (32.0-36.0) Red Cell Distribution Width 16.9 % (11.6-14.8) Platelet Count 237 K/UL (150-450) Mean Platelet Volume 6.0 FL (6.5-10.1) Neutrophils (%) (Auto) % (45.0-75.0) Lymphocytes (%) (Auto) % (20.0-45.0) Monocytes (%) (Auto) % (1.0-10.0) Eosinophils (%) (Auto) % (0.0-3.0) Basophils (%) (Auto) % (0.0-2.0) Differential Total Cells Counted 100 Neutrophils % (Manual) 91 % (45-75) Lymphocytes % (Manual) 6 % (20-45) Monocytes % (Manual) 2 % (1-10) Eosinophils % (Manual) 1 % (0-3) Basophils % (Manual) 0 % (0-2) Band Neutrophils 0 % (0-8) Platelet Estimate Adequate Platelet Morphology Normal Anisocytosis 1+ [place] Cells 1+ Erythrocyte Sedimentation Rate 44 MM/HR (0-20) Sodium Level 145 MMOL/L (136-145) Potassium Level 2.9 MMOL/L (3.5-5.1) Chloride Level 111 MMOL/L (98-107) Carbon Dioxide Level 23 MMOL/L (21-32) Anion Gap 11 mmol/L (5-15) Blood Urea Nitrogen 8 mg/dL (7-18) Creatinine 0.5 MG/DL (0.55-1.30) Estimat Glomerular Filtration Rate mL/min (>60) Glucose Level 95 MG/DL (74-106) Calcium Level 7.4 MG/DL (8.5-10.1) Phosphorus Level 3.0 MG/DL (2.5-4.9) Magnesium Level 1.5 MG/DL (1.8-2.4) Total Bilirubin 1.4 MG/DL (0.2-1.0) Direct Bilirubin 0.9 MG/DL (0.0-0.3) Aspartate Amino Transf (AST/SGOT) 11 U/L (15-37) Alanine Aminotransferase (ALT/SGPT) 7 U/L (12-78) Alkaline Phosphatase 88 U/L (46-116) C-Reactive Protein, Quantitative 10.9 mg/dL (0.00-0.90) Total Protein 4.1 G/DL (6.4-8.2) Albumin 1.5 G/DL (3.4-5.0) Globulin 2.6 g/dL Albumin/Globulin Ratio 0.6 (1.0-2.7) Random Amikacin Level 9.0 ug/mL Height (Feet): 5 Height (Inches): 5.00 Weight (Pounds): 145 Objective PE General: WD/WN Cardiovascular: normal peripheral pulses, normal rate, regular rhythm Resp: extubated, no f/c, no events, on nc Abdomen: normal bowel sounds, non tender ++ lap site noted Genitourinary/Rectal: normal genital exam, heme negative stool Extremities: normal range of motion Skin Exam: normal pigmentation 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
--- NOTE | 2018-12-09 09:56 | GI Progress Note ---
Assessment/Plan Problems: (1) Parkinson disease ICD Codes: G20 - Parkinson's disease SNOMED: 31713675 (2) Alzheimer's dementia ICD Codes: G30.9 - Alzheimer's disease, unspecified; F02.80 - Dementia in other diseases classified elsewhere without behavioral disturbance SNOMED: 66714146 (3) Feeding by G-tube ICD Codes: Z93.1 - Gastrostomy status SNOMED: 002790005, 583610300, 746695450 (4) Anemia, chronic disease ICD Codes: D63.8 - Anemia in other chronic diseases classified elsewhere SNOMED: 629657075, 234255301 Status: unchanged Status Narrative Discussed with Dr. Dallas. Assessment/Plan Duodenal ulcer, s/p SURG TF per surgery iv ppi stable H&H will fu may need TPN if prolonged NPO status anticipated The patient was seen and examined at bedside and all new and available data was reviewed in the patients chart. I agree with the above findings, impression and plan. (Patient seen earlier today. Signature stamp does not reflect patient encounter time.). - Deacon Dallas MD Subjective Subjective limited Objective Last 24 Hour Vital Signs Date Time Temp Pulse Resp B/P (MAP) Pulse Ox O2 Delivery O2 Flow Rate FiO2 12/09/18 08:00 109 12/09/18 08:00 109 17 117/72 (87) 99 12/09/18 08:00 Nasal Cannula 3.0 Nasal Cannula 3.0 Nasal Cannula 3.0 Nasal Cannula 3.0 12/09/18 07:00 115 20 135/94 (108) 99 12/09/18 06:00 117 19 125/85 (98) 99 117 12/09/18 05:00 115 20 119/80 (93) 99 115 12/09/18 04:00 98.4 120 20 126/63 (84) 96 120 12/09/18 04:00 Nasal Cannula 3.0 Nasal Cannula 3.0 Nasal Cannula 3.0 Nasal Cannula 3.0 12/09/18 04:00 124 12/09/18 03:00 99 16 116/72 (87) 98 126 12/09/18 02:00 110 16 121/70 (87) 96 12/09/18 01:00 103 19 116/74 (88) 95 12/09/18 00:00 98.5 101 21 95 12/09/18 00:00 Nasal Cannula 3.0 Nasal Cannula 3.0 Nasal Cannula 3.0 Nasal Cannula 3.0 12/08/18 23:00 100 18 118/81 (93) 97 12/08/18 22:00 101 20 126/73 (90) 99 12/08/18 21:00 98.5 106 21 125/100 (108) 99 12/08/18 20:08 99 Nasal Cannula 2.0 28 12/08/18 20:00 Nasal Cannula 3.0 Nasal Cannula 3.0 Nasal Cannula 3.0 Nasal Cannula 3.0 12/08/18 20:00 103 18 116/65 (82) 100 12/08/18 20:00 99 12/08/18 19:00 104 18 119/74 (89) 100 12/08/18 18:00 101 18 114/70 (85) 99 12/08/18 17:25 121/82 12/08/18 17:00 103 19 121/82 (95) 100 12/08/18 16:00 98.3 104 20 115/64 (81) 99 12/08/18 16:00 Nasal Cannula 3.0 Nasal Cannula 3.0 Nasal Cannula 3.0 Nasal Cannula 3.0 12/08/18 16:00 96 12/08/18 15:00 113 24 125/77 (93) 97 12/08/18 14:00 110 22 104/50 (68) 95 12/08/18 13:00 99 21 110/63 (79) 98 12/08/18 12:00 106 12/08/18 12:00 Nasal Cannula 3.0 Nasal Cannula 3.0 Nasal Cannula 3.0 Nasal Cannula 3.0 12/08/18 12:00 99.0 104 21 112/74 (87) 98 12/08/18 11:00 105 21 109/67 (81) 98 12/08/18 10:40 Nasal Cannula 3.0 32 12/08/18 10:40 98 Nasal Cannula 3.0 32 12/08/18 10:00 112 22 107/70 (82) 97 Intake and Output 12/08/18 12/09/18 19:00 07:00 Intake Total 635.5 ml 1605.000 ml Output Total 370 ml 1390 ml Balance 265.5 ml 215.000 ml Intake Oral 120 ml Free Water 110 ml IV Total 635.5 ml 425.000 ml Tube Feeding 130 ml Blood Product 800 ml Other 20 ml Output Urine Total 360 ml 550 ml Stool Total 200 ml Gastric Drainage Total 200 ml Drainage Total 10 ml 40 ml Estimated Blood Loss 0 ml Other 400 ml # Bowel Movements 3 4 Laboratory Tests Test 12/09/18 04:30 White Blood Count 12.4 K/UL (4.8-10.8) H Red Blood Count 2.73 M/UL (4.70-6.10) L Hemoglobin 8.4 G/DL (14.2-18.0) L Hematocrit 26.1 % (42.0-52.0) L Mean Corpuscular Volume 96 FL (80-99) Mean Corpuscular Hemoglobin 31.0 PG (27.0-31.0) Mean Corpuscular Hemoglobin Concent 32.3 G/DL (32.0-36.0) Red Cell Distribution Width 16.9 % (11.6-14.8) H Platelet Count 237 K/UL (150-450) Mean Platelet Volume 6.0 FL (6.5-10.1) L Neutrophils (%) (Auto) % (45.0-75.0) Lymphocytes (%) (Auto) % (20.0-45.0) Monocytes (%) (Auto) % (1.0-10.0) Eosinophils (%) (Auto) % (0.0-3.0) Basophils (%) (Auto) % (0.0-2.0) Differential Total Cells Counted 100 Neutrophils % (Manual) 91 % (45-75) H Lymphocytes % (Manual) 6 % (20-45) L Monocytes % (Manual) 2 % (1-10) Eosinophils % (Manual) 1 % (0-3) Basophils % (Manual) 0 % (0-2) Band Neutrophils 0 % (0-8) Platelet Estimate Adequate Platelet Morphology Normal Anisocytosis 1+ [place] Cells 1+ Erythrocyte Sedimentation Rate 44 MM/HR (0-20) H Sodium Level 145 MMOL/L (136-145) Potassium Level 2.9 MMOL/L (3.5-5.1) L Chloride Level 111 MMOL/L (98-107) H Carbon Dioxide Level 23 MMOL/L (21-32) Anion Gap 11 mmol/L (5-15) Blood Urea Nitrogen 8 mg/dL (7-18) Creatinine 0.5 MG/DL (0.55-1.30) L Estimat Glomerular Filtration Rate mL/min (>60) Glucose Level 95 MG/DL (74-106) Calcium Level 7.4 MG/DL (8.5-10.1) L Phosphorus Level 3.0 MG/DL (2.5-4.9) Magnesium Level 1.5 MG/DL (1.8-2.4) L Total Bilirubin 1.4 MG/DL (0.2-1.0) H Direct Bilirubin 0.9 MG/DL (0.0-0.3) H Aspartate Amino Transf (AST/SGOT) 11 U/L (15-37) L Alanine Aminotransferase (ALT/SGPT) 7 U/L (12-78) L Alkaline Phosphatase 88 U/L (46-116) C-Reactive Protein, Quantitative 10.9 mg/dL (0.00-0.90) H Total Protein 4.1 G/DL (6.4-8.2) L Albumin 1.5 G/DL (3.4-5.0) L Globulin 2.6 g/dL Albumin/Globulin Ratio 0.6 (1.0-2.7) L Random Amikacin Level 9.0 ug/mL Height (Feet): 5 Height (Inches): 5.00 Weight (Pounds): 145 General Appearance: no apparent distress Cardiovascular: normal rate Respiratory/Chest: normal breath sounds Abdominal Exam: soft Sohan Kohli [employer] WORK[employer] Dec 09, 2018 09:56
--- NOTE | 2018-12-09 10:09 | Pulmonolgy Critical Care Note ---
Critical Care - Asmt/Plan Problems: (1) Hemorrhagic shocks (2) Status post exploratory laparotomy (3) Duodenal ulcer hemorrhage (4) SVT (supraventricular tachycardia) (5) HCAP (healthcare-associated pneumonia) (6) Acute DVT (deep venous thrombosis) (7) COPD (chronic obstructive pulmonary disease) (8) S/P insertion of IVC (inferior vena caval) filter (9) C. difficile colitis (10) Alzheimer's dementia (11) Parkinson disease (12) Feeding by G-tube (13) Seizures (14) Severe protein-calorie malnutrition Respiratory: monitor respiratory rate, adjust FIO2, CXR Cardiac: continue to monitor HR/BP Renal: F/U I&O, keep IV fluid, check electrolytes Infectious Disease: check cultures Gastrointestinal: continue feedings/current rate Endocrine: monitor blood sugar, check HgA1C, continue sliding scale insulin Hematologic: transfuse if hgb<8.5 Neurologic: PRN Ativan, PRN Morphine, keep patient comfortable Affect: PRN ativan Prophylaxis: Protonix, Heparin Disposition: keep in ICU Notes Reviewed: sample maker hand, cardio, renal Discussed with: nurses, consultants, high risk case managerroute service manager - Objective Last 24 Hour Vital Signs Date Time Temp Pulse Resp B/P (MAP) Pulse Ox O2 Delivery O2 Flow Rate FiO2 12/09/18 08:00 109 12/09/18 08:00 109 17 117/72 (87) 99 12/09/18 08:00 Nasal Cannula 3.0 Nasal Cannula 3.0 Nasal Cannula 3.0 Nasal Cannula 3.0 12/09/18 07:00 115 20 135/94 (108) 99 12/09/18 06:00 117 19 125/85 (98) 99 117 12/09/18 05:00 115 20 119/80 (93) 99 115 12/09/18 04:00 98.4 120 20 126/63 (84) 96 120 12/09/18 04:00 Nasal Cannula 3.0 Nasal Cannula 3.0 Nasal Cannula 3.0 Nasal Cannula 3.0 12/09/18 04:00 124 12/09/18 03:00 99 16 116/72 (87) 98 126 12/09/18 02:00 110 16 121/70 (87) 96 12/09/18 01:00 103 19 116/74 (88) 95 12/09/18 00:00 98.5 101 21 95 12/09/18 00:00 Nasal Cannula 3.0 Nasal Cannula 3.0 Nasal Cannula 3.0 Nasal Cannula 3.0 12/08/18 23:00 100 18 118/81 (93) 97 12/08/18 22:00 101 20 126/73 (90) 99 12/08/18 21:00 98.5 106 21 125/100 (108) 99 12/08/18 20:08 99 Nasal Cannula 2.0 28 12/08/18 20:00 Nasal Cannula 3.0 Nasal Cannula 3.0 Nasal Cannula 3.0 Nasal Cannula 3.0 12/08/18 20:00 103 18 116/65 (82) 100 12/08/18 20:00 99 12/08/18 19:00 104 18 119/74 (89) 100 12/08/18 18:00 101 18 114/70 (85) 99 12/08/18 17:25 121/82 12/08/18 17:00 103 19 121/82 (95) 100 12/08/18 16:00 98.3 104 20 115/64 (81) 99 12/08/18 16:00 Nasal Cannula 3.0 Nasal Cannula 3.0 Nasal Cannula 3.0 Nasal Cannula 3.0 12/08/18 16:00 96 12/08/18 15:00 113 24 125/77 (93) 97 12/08/18 14:00 110 22 104/50 (68) 95 12/08/18 13:00 99 21 110/63 (79) 98 12/08/18 12:00 106 12/08/18 12:00 Nasal Cannula 3.0 Nasal Cannula 3.0 Nasal Cannula 3.0 Nasal Cannula 3.0 12/08/18 12:00 99.0 104 21 112/74 (87) 98 12/08/18 11:00 105 21 109/67 (81) 98 12/08/18 10:40 Nasal Cannula 3.0 32 12/08/18 10:40 98 Nasal Cannula 3.0 32 Status: awake, other - extubated Condition: critical Neck: full ROM Lungs: clear Heart: HR/BP stable Abdomen: soft, active bowel sounds Critical Care - Subjective ROS Limited/Unobtainable: Yes Condition: critical FI02: 28 Vent Support Breath Rate: 10 Vent Support Mode: CPAP Vent Tidal Volume: 600 Sputum Amount: Small PEEP: 0.0 PIP: 9 Tube Feeding Amount: 10 I&O: Intake and Output 12/08/18 12/09/18 19:00 07:00 Intake Total 635.5 ml 1605.000 ml Output Total 370 ml 1390 ml Balance 265.5 ml 215.000 ml Intake Oral 120 ml Free Water 110 ml IV Total 635.5 ml 425.000 ml Tube Feeding 130 ml Blood Product 800 ml Other 20 ml Output Urine Total 360 ml 550 ml Stool Total 200 ml Gastric Drainage Total 200 ml Drainage Total 10 ml 40 ml Estimated Blood Loss 0 ml Other 400 ml # Bowel Movements 3 4 ET-Tube: 7.5 ET Position: 25 Labs: Laboratory Tests Test 12/09/18 04:30 White Blood Count 12.4 K/UL (4.8-10.8) H Red Blood Count 2.73 M/UL (4.70-6.10) L Hemoglobin 8.4 G/DL (14.2-18.0) L Hematocrit 26.1 % (42.0-52.0) L Mean Corpuscular Volume 96 FL (80-99) Mean Corpuscular Hemoglobin 31.0 PG (27.0-31.0) Mean Corpuscular Hemoglobin Concent 32.3 G/DL (32.0-36.0) Red Cell Distribution Width 16.9 % (11.6-14.8) H Platelet Count 237 K/UL (150-450) Mean Platelet Volume 6.0 FL (6.5-10.1) L Neutrophils (%) (Auto) % (45.0-75.0) Lymphocytes (%) (Auto) % (20.0-45.0) Monocytes (%) (Auto) % (1.0-10.0) Eosinophils (%) (Auto) % (0.0-3.0) Basophils (%) (Auto) % (0.0-2.0) Differential Total Cells Counted 100 Neutrophils % (Manual) 91 % (45-75) H Lymphocytes % (Manual) 6 % (20-45) L Monocytes % (Manual) 2 % (1-10) Eosinophils % (Manual) 1 % (0-3) Basophils % (Manual) 0 % (0-2) Band Neutrophils 0 % (0-8) Platelet Estimate Adequate Platelet Morphology Normal Anisocytosis 1+ [place] Cells 1+ Erythrocyte Sedimentation Rate 44 MM/HR (0-20) H Sodium Level 145 MMOL/L (136-145) Potassium Level 2.9 MMOL/L (3.5-5.1) L Chloride Level 111 MMOL/L (98-107) H Carbon Dioxide Level 23 MMOL/L (21-32) Anion Gap 11 mmol/L (5-15) Blood Urea Nitrogen 8 mg/dL (7-18) Creatinine 0.5 MG/DL (0.55-1.30) L Estimat Glomerular Filtration Rate mL/min (>60) Glucose Level 95 MG/DL (74-106) Calcium Level 7.4 MG/DL (8.5-10.1) L Phosphorus Level 3.0 MG/DL (2.5-4.9) Magnesium Level 1.5 MG/DL (1.8-2.4) L Total Bilirubin 1.4 MG/DL (0.2-1.0) H Direct Bilirubin 0.9 MG/DL (0.0-0.3) H Aspartate Amino Transf (AST/SGOT) 11 U/L (15-37) L Alanine Aminotransferase (ALT/SGPT) 7 U/L (12-78) L Alkaline Phosphatase 88 U/L (46-116) C-Reactive Protein, Quantitative 10.9 mg/dL (0.00-0.90) H Total Protein 4.1 G/DL (6.4-8.2) L Albumin 1.5 G/DL (3.4-5.0) L Globulin 2.6 g/dL Albumin/Globulin Ratio 0.6 (1.0-2.7) L Random Amikacin Level 9.0 ug/mL David Carrasquillo MD Dec 09, 2018 10:09
--- NOTE | 2018-12-09 10:28 | NUR ---
NURSE NOTES: Dr Carrasquillo here to see pt. Dr kruger pt may transfer to stepdown unit. Will continue to monitor.
--- NOTE | 2018-12-09 11:18 | NUR ---
RD ASSESSMENT & RECOMMENDATIONS SEE CARE ACTIVITY FOR COMPLETE ASSESSMENT DAILY ESTIMATED NEEDS: Needs based on Wounds, sepsis, 60.5kg 25-35 kcals/kg 7228-6713 total kcals 1.25-2 g protein/kg 76-121 g total protein 25-30 mL/kg 4572-0764 total fluid mLs NUTRITION DIAGNOSIS: 1) Increased kcal and pro needs r/t wound healing as evidenced by pt w/ wounds, including unstageable sacral, full thickness spinal wound, DTPI BL heels. 2) Swallowing difficulty r/t dysphagia as evidenced by pt w/ Parkinson's dz, GT dependent. 3) Altered GI fxn r/t duodenal ulcer as evidenced by s/p ex lap w/ anterior duodenostomy, POD #5, NPO w/ GT to gravity- TF now initiated at trophic rate. (UPDATED) CURRENT TF:Vital @10ml/hr ENTERAL NUTRITION RECOMMENDATIONS: Vital AF 1.2 @ 60ml/hr x24 hrs for GI tolerance to provide 1440ml, 1728 kcal,108g pro, 1168ml free H2O - As medically able, increase VITAL 1.2 by 5-10ml q4-6 hrs to goal rate of 60ml/hr x24 hrs. - At goal, TF meets 100% est needs - Flush per MD/ HOB over 30 degrees ADDITIONAL RECOMMENDATIONS: 1) Per SNF: 5'6" ht, 133 lbs wt -> Rec re-calibrated bedscale wt for accurate CBW 2) Wound care: Add YOLI BID via GT + VIT C 250mg BID 3) Hypoglycemics prn/ niss 4) Monitor lytes, replete as needed 5) TPN w/ anticipated prolonged NPO status- Low rate TF initiated
--- NOTE | 2018-12-09 11:30 | NUR ---
NURSE NOTES: Dr Eugene here to see pt. Dr ordered to advance TF to 20 cc/hr. Will continue to monitor.
--- NOTE | 2018-12-09 12:32 | Cardiac Electrophysiology PN ---
Assessment/Plan Assessment/Plan 1. Post op atrial fib with RVR 170s. Got Dig 0.25 iv. Change Dig to 0.125 PEG daily Converted to SR with frequent PAC and PVCs Add Lopressor 12.5 GT bid 2. S/P Septic and hemorrhagic shock . Off pressors . Echo EF 55% 3. Acute right leg DVT and Bilateral UE DVT. S/P IVC filter . Off Eliquis for severe anemia and GI bleed 4. Staph aureous bacteremia. On Abx per Dr Yee FLORINA pending consent and patient stability 5. Parkinsonism. 6. COPD. 7. UTI. 8. Severe anemia and rectal bleed. S/P Colonoscopy on 11/20/18 and 11/29/18 and transfusion No obvious source. S/P EGD by Dr Dallas and Anterior duodenostomy for control of large posterior duodenal ulcer hemorrhage by Dr Eugene on 12/02/18 9. Seizure disorder. 10. S/P PEG 11. Respiratory failure, extubated 12/08/18 EHSAN RN Subjective Subjective In ICU, extubated yesterday in SR. Goes in and out of atrial fib Objective Last 24 Hour Vital Signs Date Time Temp Pulse Resp B/P (MAP) Pulse Ox O2 Delivery O2 Flow Rate FiO2 12/09/18 12:00 98.4 112 20 124/81 (95) 99 12/09/18 12:00 Nasal Cannula 3.0 Nasal Cannula 3.0 Nasal Cannula 3.0 Nasal Cannula 3.0 12/09/18 11:00 118 20 114/84 (94) 98 12/09/18 10:00 106 19 132/81 (98) 99 12/09/18 09:00 114 18 121/70 (87) 99 12/09/18 08:00 109 12/09/18 08:00 109 17 117/72 (87) 99 12/09/18 08:00 Nasal Cannula 3.0 Nasal Cannula 3.0 Nasal Cannula 3.0 Nasal Cannula 3.0 12/09/18 07:00 115 20 135/94 (108) 99 12/09/18 06:00 117 19 125/85 (98) 99 117 12/09/18 05:00 115 20 119/80 (93) 99 115 12/09/18 04:00 98.4 120 20 126/63 (84) 96 120 12/09/18 04:00 Nasal Cannula 3.0 Nasal Cannula 3.0 Nasal Cannula 3.0 Nasal Cannula 3.0 12/09/18 04:00 124 12/09/18 03:00 99 16 116/72 (87) 98 126 12/09/18 02:00 110 16 121/70 (87) 96 12/09/18 01:00 103 19 116/74 (88) 95 12/09/18 00:00 98.5 101 21 95 12/09/18 00:00 Nasal Cannula 3.0 Nasal Cannula 3.0 Nasal Cannula 3.0 Nasal Cannula 3.0 12/08/18 23:00 100 18 118/81 (93) 97 12/08/18 22:00 101 20 126/73 (90) 99 12/08/18 21:00 98.5 106 21 125/100 (108) 99 12/08/18 20:08 99 Nasal Cannula 2.0 28 12/08/18 20:00 Nasal Cannula 3.0 Nasal Cannula 3.0 Nasal Cannula 3.0 Nasal Cannula 3.0 12/08/18 20:00 103 18 116/65 (82) 100 12/08/18 20:00 99 12/08/18 19:00 104 18 119/74 (89) 100 12/08/18 18:00 101 18 114/70 (85) 99 12/08/18 17:25 121/82 12/08/18 17:00 103 19 121/82 (95) 100 12/08/18 16:00 98.3 104 20 115/64 (81) 99 12/08/18 16:00 Nasal Cannula 3.0 Nasal Cannula 3.0 Nasal Cannula 3.0 Nasal Cannula 3.0 12/08/18 16:00 96 12/08/18 15:00 113 24 125/77 (93) 97 12/08/18 14:00 110 22 104/50 (68) 95 12/08/18 13:00 99 21 110/63 (79) 98 Intake and Output 12/08/18 12/09/18 19:00 07:00 Intake Total 635.5 ml 1605.000 ml Output Total 370 ml 1390 ml Balance 265.5 ml 215.000 ml Intake Oral 120 ml Free Water 110 ml IV Total 635.5 ml 425.000 ml Tube Feeding 130 ml Blood Product 800 ml Other 20 ml Output Urine Total 360 ml 550 ml Stool Total 200 ml Gastric Drainage Total 200 ml Drainage Total 10 ml 40 ml Estimated Blood Loss 0 ml Other 400 ml # Bowel Movements 3 4 Laboratory Tests Test 12/09/18 04:30 White Blood Count 12.4 K/UL (4.8-10.8) H Red Blood Count 2.73 M/UL (4.70-6.10) L Hemoglobin 8.4 G/DL (14.2-18.0) L Hematocrit 26.1 % (42.0-52.0) L Mean Corpuscular Volume 96 FL (80-99) Mean Corpuscular Hemoglobin 31.0 PG (27.0-31.0) Mean Corpuscular Hemoglobin Concent 32.3 G/DL (32.0-36.0) Red Cell Distribution Width 16.9 % (11.6-14.8) H Platelet Count 237 K/UL (150-450) Mean Platelet Volume 6.0 FL (6.5-10.1) L Neutrophils (%) (Auto) % (45.0-75.0) Lymphocytes (%) (Auto) % (20.0-45.0) Monocytes (%) (Auto) % (1.0-10.0) Eosinophils (%) (Auto) % (0.0-3.0) Basophils (%) (Auto) % (0.0-2.0) Differential Total Cells Counted 100 Neutrophils % (Manual) 91 % (45-75) H Lymphocytes % (Manual) 6 % (20-45) L Monocytes % (Manual) 2 % (1-10) Eosinophils % (Manual) 1 % (0-3) Basophils % (Manual) 0 % (0-2) Band Neutrophils 0 % (0-8) Platelet Estimate Adequate Platelet Morphology Normal Anisocytosis 1+ [place] Cells 1+ Erythrocyte Sedimentation Rate 44 MM/HR (0-20) H Sodium Level 145 MMOL/L (136-145) Potassium Level 2.9 MMOL/L (3.5-5.1) L Chloride Level 111 MMOL/L (98-107) H Carbon Dioxide Level 23 MMOL/L (21-32) Anion Gap 11 mmol/L (5-15) Blood Urea Nitrogen 8 mg/dL (7-18) Creatinine 0.5 MG/DL (0.55-1.30) L Estimat Glomerular Filtration Rate mL/min (>60) Glucose Level 95 MG/DL (74-106) Calcium Level 7.4 MG/DL (8.5-10.1) L Phosphorus Level 3.0 MG/DL (2.5-4.9) Magnesium Level 1.5 MG/DL (1.8-2.4) L Total Bilirubin 1.4 MG/DL (0.2-1.0) H Direct Bilirubin 0.9 MG/DL (0.0-0.3) H Aspartate Amino Transf (AST/SGOT) 11 U/L (15-37) L Alanine Aminotransferase (ALT/SGPT) 7 U/L (12-78) L Alkaline Phosphatase 88 U/L (46-116) C-Reactive Protein, Quantitative 10.9 mg/dL (0.00-0.90) H Total Protein 4.1 G/DL (6.4-8.2) L Albumin 1.5 G/DL (3.4-5.0) L Globulin 2.6 g/dL Albumin/Globulin Ratio 0.6 (1.0-2.7) L Random Amikacin Level 9.0 ug/mL Objective HEAD AND NECK: No JVD LUNGS: Decreased breath sounds. CARDIOVASCULAR: Regular S1 and S2 with no gallop . ABDOMEN: Soft. G-tube intact. S/P Laparatomy with ANGIE drain EXTREMITIES: Upper extremity and LE edema. Earl Washington MD Dec 09, 2018 12:32
[2018-12-09] MEDS ORDERED: Digoxin 0.125mg tab NG SCH (12:45)
--- NOTE | 2018-12-09 13:14 | NUR ---
NURSE NOTES: Dr Washington here to see pt. Dr ordered digoxin and metoprolol per GT and a digoxin level for the morning. Will continue to monitor.
--- NOTE | 2018-12-09 13:17 | Nephrology Progress Note ---
Assessment/Plan Problem List: (1) Hyponatremia Assessment: Na higher (2) UTI (urinary tract infection) (3) Anemia, chronic disease (4) Alzheimer's dementia (5) Parkinson disease (6) C. difficile colitis (7) Perforated duodenal ulcer Assessment Low Na corrected GI bleed transfused other conditions Pneumonia UTI, has grewal bacteremia sacral decub dementia HTN Sz disorder Parkinsons severe Anemia Plan remains NPO Post OP care ( Laparatomy Op 12/02/18) Trial Albumin and Lasix to diurese PRN K and Mag and Phos supplement as needed hemodynamic support Albumin bolus and transfusion for low BP as needed stop HypoTonic IV solution start maintenence IV fluid Urine studies Transfusion as needed Per orders roberto carlos khalil Subjective ROS Limited/Unobtainable: Yes Objective Objective Last 24 Hour Vital Signs Date Time Temp Pulse Resp B/P (MAP) Pulse Ox O2 Delivery O2 Flow Rate FiO2 12/09/18 13:06 114 12/09/18 13:00 107 19 125/75 (92) 99 12/09/18 12:00 98.4 112 20 124/81 (95) 99 12/09/18 12:00 Nasal Cannula 3.0 Nasal Cannula 3.0 Nasal Cannula 3.0 Nasal Cannula 3.0 12/09/18 12:00 114 12/09/18 11:00 118 20 114/84 (94) 98 12/09/18 10:00 106 19 132/81 (98) 99 12/09/18 09:00 114 18 121/70 (87) 99 12/09/18 08:00 109 12/09/18 08:00 109 17 117/72 (87) 99 12/09/18 08:00 Nasal Cannula 3.0 Nasal Cannula 3.0 Nasal Cannula 3.0 Nasal Cannula 3.0 12/09/18 07:00 115 20 135/94 (108) 99 12/09/18 06:00 117 19 125/85 (98) 99 117 12/09/18 05:00 115 20 119/80 (93) 99 115 12/09/18 04:00 98.4 120 20 126/63 (84) 96 120 12/09/18 04:00 Nasal Cannula 3.0 Nasal Cannula 3.0 Nasal Cannula 3.0 Nasal Cannula 3.0 12/09/18 04:00 124 12/09/18 03:00 99 16 116/72 (87) 98 126 7/16/19 02:00 110 16 121/70 (87) 96 12/09/18 01:00 103 19 116/74 (88) 95 12/09/18 00:00 98.5 101 21 95 12/09/18 00:00 Nasal Cannula 3.0 Nasal Cannula 3.0 Nasal Cannula 3.0 Nasal Cannula 3.0 12/08/18 23:00 100 18 118/81 (93) 97 12/08/18 22:00 101 20 126/73 (90) 99 12/08/18 21:00 98.5 106 21 125/100 (108) 99 12/08/18 20:08 99 Nasal Cannula 2.0 28 12/08/18 20:00 Nasal Cannula 3.0 Nasal Cannula 3.0 Nasal Cannula 3.0 Nasal Cannula 3.0 12/08/18 20:00 103 18 116/65 (82) 100 12/08/18 20:00 99 12/08/18 19:00 104 18 119/74 (89) 100 12/08/18 18:00 101 18 114/70 (85) 99 12/08/18 17:25 121/82 12/08/18 17:00 103 19 121/82 (95) 100 12/08/18 16:00 98.3 104 20 115/64 (81) 99 12/08/18 16:00 Nasal Cannula 3.0 Nasal Cannula 3.0 Nasal Cannula 3.0 Nasal Cannula 3.0 12/08/18 16:00 96 12/08/18 15:00 113 24 125/77 (93) 97 12/08/18 14:00 110 22 104/50 (68) 95 Intake and Output 12/08/18 12/09/18 19:00 07:00 Intake Total 635.5 ml 1605.000 ml Output Total 370 ml 1390 ml Balance 265.5 ml 215.000 ml Intake Oral 120 ml Free Water 110 ml IV Total 635.5 ml 425.000 ml Tube Feeding 130 ml Blood Product 800 ml Other 20 ml Output Urine Total 360 ml 550 ml Stool Total 200 ml Gastric Drainage Total 200 ml Drainage Total 10 ml 40 ml Estimated Blood Loss 0 ml Other 400 ml # Bowel Movements 3 4 Laboratory Tests 12/09/18 04:30: White Blood Count 12.4H, Red Blood Count 2.73L, Hemoglobin 8.4L, Hematocrit 26.1L, Mean Corpuscular Volume 96, Mean Corpuscular Hemoglobin 31.0, Mean Corpuscular Hemoglobin Concent 32.3, Red Cell Distribution Width 16.9H, Platelet Count 237, Mean Platelet Volume 6.0L, Neutrophils (%) (Auto) , Lymphocytes (%) (Auto) , Monocytes (%) (Auto) , Eosinophils (%) (Auto) , Basophils (%) (Auto) , Differential Total Cells Counted 100, Neutrophils % ( Manual) 91H, Lymphocytes % (Manual) 6L, Monocytes % (Manual) 2, Eosinophils % ( Manual) 1, Basophils % (Manual) 0, Band Neutrophils 0, Platelet Estimate Adequate, Platelet Morphology Normal, Anisocytosis 1+, [place] Cells 1+, Erythrocyte Sedimentation Rate 44H, Sodium Level 145, Potassium Level 2.9L, Chloride Level 111H, Carbon Dioxide Level 23, Anion Gap 11, Blood Urea Nitrogen 8, Creatinine 0.5L, Estimat Glomerular Filtration Rate , Glucose Level 95, Calcium Level 7.4L, Phosphorus Level 3.0, Magnesium Level 1.5L, Total Bilirubin 1.4H, Direct Bilirubin 0.9H, Aspartate Amino Transf (AST/SGOT) 11L, Alanine Aminotransferase (ALT/SGPT) 7L, Alkaline Phosphatase 88, C-Reactive Protein, Quantitative 10.9H, Total Protein 4.1L, Albumin 1.5L, Globulin 2.6, Albumin/ Globulin Ratio 0.6L, Random Amikacin Level 9.0 Height (Feet): 5 Height (Inches): 5.00 Weight (Pounds): 145 General Appearance: no apparent distress EENT: other - on vent Cardiovascular: tachycardia Respiratory/Chest: decreased breath sounds Abdomen: distended Objective no change Kendall Trinidad MD Dec 09, 2018 13:17
[2018-12-09] MEDS ORDERED: Tubing IV Secondary IV ONE (14:07)
[2018-12-09] MEDS ORDERED: NS 275ml ONE (14:07)
--- NOTE | 2018-12-09 14:32 | General Progress Note ---
Assessment/Plan Problem List: (1) Acute DVT (deep venous thrombosis) ICD Codes: I82.409 - Acute embolism and thrombosis of unspecified deep veins of unspecified lower extremity SNOMED: 524666366628862 (2) UTI (urinary tract infection) ICD Codes: N39.0 - Urinary tract infection, site not specified SNOMED: 98767105, 764637757 Qualifiers: Qualified Codes: N30.00 - Acute cystitis without hematuria (3) Anemia, chronic disease ICD Codes: D63.8 - Anemia in other chronic diseases classified elsewhere SNOMED: 727405824, 940417441 (4) Parkinson disease ICD Codes: G20 - Parkinson's disease SNOMED: 13227196 (5) Alzheimer's dementia ICD Codes: G30.9 - Alzheimer's disease, unspecified; F02.80 - Dementia in other diseases classified elsewhere without behavioral disturbance SNOMED: 42051048 (6) COPD (chronic obstructive pulmonary disease) ICD Codes: J44.9 - Chronic obstructive pulmonary disease, unspecified SNOMED: 57059746 Status: stable, progressing Assessment/Plan: o2 pulm tx abx pt diet heme f/u cbc bmp am ltach eval Subjective Allergies: Coded Allergies: No Known Allergies (Unverified , 11/18/18) All Systems: reviewed and negative except above Subjective o2nc in icu Objective Last 24 Hour Vital Signs Date Time Temp Pulse Resp B/P (MAP) Pulse Ox O2 Delivery O2 Flow Rate FiO2 12/09/18 14:00 118 22 128/87 (101) 98 12/09/18 13:06 114 12/09/18 13:00 107 19 125/75 (92) 99 12/09/18 12:00 98.4 112 20 124/81 (95) 99 12/09/18 12:00 Nasal Cannula 3.0 Nasal Cannula 3.0 Nasal Cannula 3.0 Nasal Cannula 3.0 12/09/18 12:00 114 12/09/18 11:00 118 20 114/84 (94) 98 12/09/18 10:00 106 19 132/81 (98) 99 12/09/18 09:00 114 18 121/70 (87) 99 12/09/18 08:00 109 12/09/18 08:00 109 17 117/72 (87) 99 12/09/18 08:00 Nasal Cannula 3.0 Nasal Cannula 3.0 Nasal Cannula 3.0 Nasal Cannula 3.0 12/09/18 07:00 115 20 135/94 (108) 99 12/09/18 06:00 117 19 125/85 (98) 99 117 12/09/18 05:00 115 20 119/80 (93) 99 115 12/09/18 04:00 98.4 120 20 126/63 (84) 96 120 12/09/18 04:00 Nasal Cannula 3.0 Nasal Cannula 3.0 Nasal Cannula 3.0 Nasal Cannula 3.0 12/09/18 04:00 124 12/09/18 03:00 99 16 116/72 (87) 98 126 12/09/18 02:00 110 16 121/70 (87) 96 12/09/18 01:00 103 19 116/74 (88) 95 12/09/18 00:00 98.5 101 21 95 12/09/18 00:00 Nasal Cannula 3.0 Nasal Cannula 3.0 Nasal Cannula 3.0 Nasal Cannula 3.0 12/08/18 23:00 100 18 118/81 (93) 97 12/08/18 22:00 101 20 126/73 (90) 99 12/08/18 21:00 98.5 106 21 125/100 (108) 99 12/08/18 20:08 99 Nasal Cannula 2.0 28 12/08/18 20:00 Nasal Cannula 3.0 Nasal Cannula 3.0 Nasal Cannula 3.0 Nasal Cannula 3.0 12/08/18 20:00 103 18 116/65 (82) 100 12/08/18 20:00 99 12/08/18 19:00 104 18 119/74 (89) 100 12/08/18 18:00 101 18 114/70 (85) 99 12/08/18 17:25 121/82 12/08/18 17:00 103 19 121/82 (95) 100 12/08/18 16:00 98.3 104 20 115/64 (81) 99 12/08/18 16:00 Nasal Cannula 3.0 Nasal Cannula 3.0 Nasal Cannula 3.0 Nasal Cannula 3.0 12/08/18 16:00 96 12/08/18 15:00 113 24 125/77 (93) 97 Intake and Output 12/08/18 12/09/18 19:00 07:00 Intake Total 635.5 ml 1605.000 ml Output Total 370 ml 1390 ml Balance 265.5 ml 215.000 ml Intake Oral 120 ml Free Water 110 ml IV Total 635.5 ml 425.000 ml Tube Feeding 130 ml Blood Product 800 ml Other 20 ml Output Urine Total 360 ml 550 ml Stool Total 200 ml Gastric Drainage Total 200 ml Drainage Total 10 ml 40 ml Estimated Blood Loss 0 ml Other 400 ml # Bowel Movements 3 4 Laboratory Tests 12/09/18 04:30: White Blood Count 12.4H, Red Blood Count 2.73L, Hemoglobin 8.4L, Hematocrit 26.1L, Mean Corpuscular Volume 96, Mean Corpuscular Hemoglobin 31.0, Mean Corpuscular Hemoglobin Concent 32.3, Red Cell Distribution Width 16.9H, Platelet Count 237, Mean Platelet Volume 6.0L, Neutrophils (%) (Auto) , Lymphocytes (%) (Auto) , Monocytes (%) (Auto) , Eosinophils (%) (Auto) , Basophils (%) (Auto) , Differential Total Cells Counted 100, Neutrophils % ( Manual) 91H, Lymphocytes % (Manual) 6L, Monocytes % (Manual) 2, Eosinophils % ( Manual) 1, Basophils % (Manual) 0, Band Neutrophils 0, Platelet Estimate Adequate, Platelet Morphology Normal, Anisocytosis 1+, [place] Cells 1+, Erythrocyte Sedimentation Rate 44H, Sodium Level 145, Potassium Level 2.9L, Chloride Level 111H, Carbon Dioxide Level 23, Anion Gap 11, Blood Urea Nitrogen 8, Creatinine 0.5L, Estimat Glomerular Filtration Rate , Glucose Level 95, Calcium Level 7.4L, Phosphorus Level 3.0, Magnesium Level 1.5L, Total Bilirubin 1.4H, Direct Bilirubin 0.9H, Aspartate Amino Transf (AST/SGOT) 11L, Alanine Aminotransferase (ALT/SGPT) 7L, Alkaline Phosphatase 88, C-Reactive Protein, Quantitative 10.9H, Total Protein 4.1L, Albumin 1.5L, Globulin 2.6, Albumin/ Globulin Ratio 0.6L, Random Amikacin Level 9.0 Height (Feet): 5 Height (Inches): 5.00 Weight (Pounds): 145 General Appearance: lethargic EENT: normal ENT inspection Neck: normal alignment Cardiovascular: normal peripheral pulses, normal rate, regular rhythm Respiratory/Chest: chest wall non-tender, lungs clear, normal breath sounds Abdomen: normal bowel sounds, non tender, soft Extremities: normal inspection Edema: 1+ Arm (L), 1+ Arm (R), 1+ Leg (L), 1+ Leg (R), 1+ Pedal (L), 1+ Pedal ( R), 1+ Generalized Edema: trace edema Neurologic: motor weakness Skin: normal pigmentation, warm/dry Abdullahi Gonzalez DO Dec 09, 2018 14:32
--- NOTE | 2018-12-09 15:35 | NUR ---
NURSE NOTES: Pt turned and repositioned. Dressing change on sacrum done. Will continue to monitor.
--- NOTE | 2018-12-09 16:08 | Surgery Progress Note ---
Surgery Progress Note Subjective Procedure Performed 1. exploratory laparotomy 2. Anterior duodenotomy for control of large posterior duodenal ulcer hemorrhage 3. closure of duodenotomy 4. pyloric exclusion with gastrojejunostomy 5. abdominal washout 6. abdominal drain placement Additional Comments exam stable leukocytosis extubated doing okay no n/v/f tolerating tube feeds drain output stable Objective Last 24 Hour Vital Signs Date Time Temp Pulse Resp B/P (MAP) Pulse Ox O2 Delivery O2 Flow Rate FiO2 12/09/18 15:00 115 20 127/78 (94) 99 12/09/18 14:00 118 22 128/87 (101) 98 12/09/18 13:06 114 12/09/18 13:00 107 19 125/75 (92) 99 12/09/18 12:00 98.4 112 20 124/81 (95) 99 12/09/18 12:00 Nasal Cannula 3.0 Nasal Cannula 3.0 Nasal Cannula 3.0 Nasal Cannula 3.0 12/09/18 12:00 114 12/09/18 11:00 118 20 114/84 (94) 98 12/09/18 10:00 106 19 132/81 (98) 99 12/09/18 09:00 114 18 121/70 (87) 99 12/09/18 08:00 109 12/09/18 08:00 109 17 117/72 (87) 99 12/09/18 08:00 Nasal Cannula 3.0 Nasal Cannula 3.0 Nasal Cannula 3.0 Nasal Cannula 3.0 12/09/18 07:00 115 20 135/94 (108) 99 12/09/18 06:00 117 19 125/85 (98) 99 117 12/09/18 05:00 115 20 119/80 (93) 99 115 12/09/18 04:00 98.4 120 20 126/63 (84) 96 120 12/09/18 04:00 Nasal Cannula 3.0 Nasal Cannula 3.0 Nasal Cannula 3.0 Nasal Cannula 3.0 12/09/18 04:00 124 12/09/18 03:00 99 16 116/72 (87) 98 126 12/09/18 02:00 110 16 121/70 (87) 96 12/09/18 01:00 103 19 116/74 (88) 95 12/09/18 00:00 98.5 101 21 95 12/09/18 00:00 Nasal Cannula 3.0 Nasal Cannula 3.0 Nasal Cannula 3.0 Nasal Cannula 3.0 12/08/18 23:00 100 18 118/81 (93) 97 12/08/18 22:00 101 20 126/73 (90) 99 12/08/18 21:00 98.5 106 21 125/100 (108) 99 12/08/18 20:08 99 Nasal Cannula 2.0 28 12/08/18 20:00 Nasal Cannula 3.0 Nasal Cannula 3.0 Nasal Cannula 3.0 Nasal Cannula 3.0 12/08/18 20:00 103 18 116/65 (82) 100 12/08/18 20:00 99 12/08/18 19:00 104 18 119/74 (89) 100 12/08/18 18:00 101 18 114/70 (85) 99 12/08/18 17:25 121/82 12/08/18 17:00 103 19 121/82 (95) 100 I&O Intake and Output 12/08/18 12/09/18 18:59 06:59 Intake Total 635.5 ml 1595.000 ml Output Total 360 ml 1380 ml Balance 275.5 ml 215.000 ml Intake Oral 120 ml Free Water 110 ml IV Total 635.5 ml 425.000 ml Tube Feeding 120 ml Blood Product 800 ml Other 20 ml Output Urine Total 360 ml 530 ml Stool Total 200 ml Gastric Drainage Total 200 ml Drainage Total 50 ml Estimated Blood Loss 0 ml Other 400 ml # Bowel Movements 3 4 Dressing: dry Wound: clean Drains: tawanda Cardiovascular: RSR Respiratory: decreased breath sounds Abdomen: soft, present bowel sounds, non-distended Extremities: no edema, no tenderness, no cyanosis Laboratory Tests Test 12/09/18 04:30 White Blood Count 12.4 K/UL (4.8-10.8) H Red Blood Count 2.73 M/UL (4.70-6.10) L Hemoglobin 8.4 G/DL (14.2-18.0) L Hematocrit 26.1 % (42.0-52.0) L Mean Corpuscular Volume 96 FL (80-99) Mean Corpuscular Hemoglobin 31.0 PG (27.0-31.0) Mean Corpuscular Hemoglobin Concent 32.3 G/DL (32.0-36.0) Red Cell Distribution Width 16.9 % (11.6-14.8) H Platelet Count 237 K/UL (150-450) Mean Platelet Volume 6.0 FL (6.5-10.1) L Neutrophils (%) (Auto) % (45.0-75.0) Lymphocytes (%) (Auto) % (20.0-45.0) Monocytes (%) (Auto) % (1.0-10.0) Eosinophils (%) (Auto) % (0.0-3.0) Basophils (%) (Auto) % (0.0-2.0) Differential Total Cells Counted 100 Neutrophils % (Manual) 91 % (45-75) H Lymphocytes % (Manual) 6 % (20-45) L Monocytes % (Manual) 2 % (1-10) Eosinophils % (Manual) 1 % (0-3) Basophils % (Manual) 0 % (0-2) Band Neutrophils 0 % (0-8) Platelet Estimate Adequate Platelet Morphology Normal Anisocytosis 1+ [place] Cells 1+ Erythrocyte Sedimentation Rate 44 MM/HR (0-20) H Sodium Level 145 MMOL/L (136-145) Potassium Level 2.9 MMOL/L (3.5-5.1) L Chloride Level 111 MMOL/L (98-107) H Carbon Dioxide Level 23 MMOL/L (21-32) Anion Gap 11 mmol/L (5-15) Blood Urea Nitrogen 8 mg/dL (7-18) Creatinine 0.5 MG/DL (0.55-1.30) L Estimat Glomerular Filtration Rate mL/min (>60) Glucose Level 95 MG/DL (74-106) Calcium Level 7.4 MG/DL (8.5-10.1) L Phosphorus Level 3.0 MG/DL (2.5-4.9) Magnesium Level 1.5 MG/DL (1.8-2.4) L Total Bilirubin 1.4 MG/DL (0.2-1.0) H Direct Bilirubin 0.9 MG/DL (0.0-0.3) H Aspartate Amino Transf (AST/SGOT) 11 U/L (15-37) L Alanine Aminotransferase (ALT/SGPT) 7 U/L (12-78) L Alkaline Phosphatase 88 U/L (46-116) C-Reactive Protein, Quantitative 10.9 mg/dL (0.00-0.90) H Total Protein 4.1 G/DL (6.4-8.2) L Albumin 1.5 G/DL (3.4-5.0) L Globulin 2.6 g/dL Albumin/Globulin Ratio 0.6 (1.0-2.7) L Random Amikacin Level 9.0 ug/mL Assessment Post-op Diagnosis large posterior duodenal ulcer hemorrhage Plan Problems: (1) Decubitus skin ulcer Assessment & Plan: Pt presented on admission with multiple pressure injuries. Violaceous macular rash noted to L shoulder ,Upper L side of back and lateral L chest. L upper ext edematous with scattered petechiae. Category 2 skin tear with 10% flap loss noted to L brachial. Small amt sanguineous exudate noted. Unstageable pressure injury Sacrum . Base of wound noted to have 100% mixed slough.necrosis .Edges semi-detached and erythematous. Surrounding non- blanchable erythema without elevation in skin temp ,or induration. (L)9.5cm x (W )6.5cm. NO odor or exudate noted. Full thickness pressure injury lumbar spine in close proximity to sacral pressure injury.Base of wound pink with scattered biofilm. (L)2cm x (W)1.6cm. (+ ) maceration along borders. Periwound without erythema or induration. DTPI noted to medial L heel (L)3.2cm x (W)4.5cm. Base of fluctuant with delineated erythematous borders. Periwound fluctuant with non-blanchable erythema.Additionally, an area of stable dry eschar noted to posterior L heel(L) 0.6cm x (W)0.8cm DTPI Noted to lateral R heel. Maroon discoloration that is fluctuant within base of wound.(L)2.5cm x (W)1cm. DTPI noted to medial R heel. Base of wound fluctuant and is maroon in colour (L) 1.5cm x (W)1cm. Maroon discoloration without fluctuance or induration noted to lateral R tibia , superior but in close proximity to lateral Malleolus.(L)1.4cm x (W)0.5cm. Tx.Plan: Cleanse skin tear L brachial. (Maintain Versatel Contact layer)Apply Silvasorb Gel. Cover with Optifoam drsg. Change every 7 days and prn. Cleanse Sacral wound with Saline. Apply Therahoney. Apply Moisture Barrier Paste periwound. Cover with Optifoam drsg. Change every 3 days and prn. Cleanse wound Lumbar spine with saline. Apply Therahoney. Apply Cavilon Skin Barrier periwound. Cover with Optifoam drsg. Change every 3 days and prn. Apply Cavilon Skin Barrier to Lateral R tibia, R heel and L heel. Cover each site with Optifoam drsg. Change every 7 days and prn. APM/FERNANDEZ mattress overlay. Reposition at least every 2hours or as tolerated. Off-load heels with pillow. (2) Acute DVT (deep venous thrombosis) (3) HCAP (healthcare-associated pneumonia) (4) UTI (urinary tract infection) (5) Anemia, chronic disease (6) Sepsis Assessment & Plan: acute gi bleed - active hemorrhage to OR transfuse trend labs cont abx appreciate ID input (7) Feeding by G-tube Assessment & Plan: DAILY ESTIMATED NEEDS: Needs based on Sepsis, wound 60.5kg 25-35 kcals/kg 6665-8345 total kcals 1.25-2 g protein/kg 76-121 g total protein 25-30 mL/kg 1150-3664 total fluid mLs NUTRITION DIAGNOSIS: 1) Increased kcal and pro needs r/t wound healing as evidenced by pt w/ sacral unstageable wound and L heel DTPI. 2) Swallowing difficulty r/t dysphagia as evidenced by pt w/ Parkinson's dz, GT dependent. ENTERAL NUTRITION RECOMMENDATIONS: Glucerna 1.2 @60ml/hr x24 hrs to provide 1440ml, 1728 kcal, 86g pro, 1159ml free H2O - As medically able, rec to start Glucerna 1.2 @20ml/hr, advance as tolerated 10ml q4-6 hrs to goal. - Flush per MD/ HOB over 30 degrees ADDITIONAL RECOMMENDATIONS: 1) Per SNF: 5'6" ht, 133 lbs wt 2) SHUTTLE REPAIRER eval if oral grat is appropriate 3) Wound care: Add YOLI BID via GT + VIT C 250mg BID 4) Hypoglycemics prn/ niss (8) COPD (chronic obstructive pulmonary disease) (9) Alzheimer's dementia (10) Parkinson disease (11) Seizures (12) Hyponatremia (13) Hemorrhagic shocks (14) Severe protein-calorie malnutrition (15) Lower GI bleed Assessment & Plan: see or report (16) C. difficile colitis Andrew Eugene Dec 09, 2018 16:08
--- NOTE | 2018-12-09 16:29 | Infectious Diseases Prog Note ---
Assessment/Plan Assessment/Plan VDRF, s/p extubation 12/08 GIB- 2ry to actively bleeding Duodenal ulcer -12/02 SP exploratory laparotomy. Anterior duodenotomy for control of large posterior duodenal ulcer hemorrhage. closure of duodenotomy. pyloric exclusion with gastrojejunostomy abdominal washout. abdominal drain placement -12/02 SP EGD Shock likely hemorrhagic and septic component- now off presors -12/04 CXR: Suggestion of a slightly worsening vascular congestion -12/03 u/a neg, ucx Neg Bcx Neg -12/02 CXR: Slightly increased bilateral infiltrates Diarrhea CDiff + GI bleed 11/29 Colonscopy : Diverticulosis Sepsis -11/30 CT abd/p: Nonspecific trace free intraperitoneal fluid. No acute abdominal or pelvic process otherwise. Fairly extensive bilateral basilar pulmonary parenchymal consolidation and atelectasis. Bilateral small pleural effusions. Colonic diverticulosis. No evidence of diverticulitis. Gastrostomy. Nonobstructive 3 mm left intrarenal calyceal calculus. Prostatomegaly. Edema of the bilateral left greater than right subcutaneous fat. Fairly extensive chronic appearing bilateral hip degenerative changes, with bilateral joint effusions versus chronic synovial proliferation. Inferior vena cava filter -11/28 BCx Neg u/a no pyuria ucx Neg Pneumonia -12/07 CXR: Patchy airspace disease noted in the perihilar basilar regions. There may be a small left pleural effusion now present -12/03 Sp cx Citrobacter diversus (R Genta,Ancef, Bactrim); MDR P. stuarti ( S Amikacin) -CXR: Patchy bilateral infiltrates versus mixed interstitial alveolar edema noted. -sp cx MRSA, MDR P. stuarti (S Amikacin, Zosyn ; I cefepime; S ertapenem) Afebrile Leukocytosis; recurrent MRSA bacteremia- suspect 2ry to PNA- r/o endocarditis -11/18 Bcx 2/4 MRSA , 1/4 S. capitis, Diptheroids (these 2 are contaminants); BCx Neg -2d Echo:limited study (no vegetations) Probable UTI, sp Rx -u/a wbc 10-15, nit neg, leuk +2; ucx MDR ABC (S bactrim, gentamicin) Acute respiratory failure Sacral decubitus ulcer, necrotic, surrounding cellulitis GIB dementia HTN CKD COPD dysphagia s/p Gtube feeding Parkinson disease seizure disorder multiple decubiti wounds [facility] resident Plan: - Resume IV Flagyl #6 (abx d #04/09) for Cdiff given NPO status -D/c IV Vancomycin #22/-28 for MRSA bacteremia and PNA -Cont IV Amikacin #2 for MDR PNA -12/03 SP PO Vancomycin #5 (held as pt now is NPO) -12/02 SP Flagyl #4 -11/29 SP Zosyn #8 -11/27 SP Bactrim # -11/23 SP Cefepime #6 -11/18 SP Levaquin x1 -f/u cx -Monitor CBC/CMP, temperatures -GT care -aspiration precautions -wound care per surgical team -Recommend FLORINA -f/u ucx, Bcx x2, sp cx -ICU care -GI, Gen Sx f/u Subjective Allergies: Coded Allergies: No Known Allergies (Unverified , 11/18/18) Subjective afebrile Leukocytosis increased \BcxNeg Objective Vital Signs Last 24 Hour Vital Signs Date Time Temp Pulse Resp B/P (MAP) Pulse Ox O2 Delivery O2 Flow Rate FiO2 12/09/18 16:00 121 12/09/18 16:00 98.2 115 23 101/63 (76) 86 12/09/18 16:00 Nasal Cannula 3.0 Nasal Cannula 3.0 Nasal Cannula 3.0 Nasal Cannula 3.0 12/09/18 15:00 115 20 127/78 (94) 99 12/09/18 14:00 118 22 128/87 (101) 98 12/09/18 13:06 114 12/09/18 13:00 107 19 125/75 (92) 99 12/09/18 12:00 98.4 112 20 124/81 (95) 99 12/09/18 12:00 Nasal Cannula 3.0 Nasal Cannula 3.0 Nasal Cannula 3.0 Nasal Cannula 3.0 12/09/18 12:00 114 12/09/18 11:00 118 20 114/84 (94) 98 12/09/18 10:00 106 19 132/81 (98) 99 12/09/18 09:00 114 18 121/70 (87) 99 12/09/18 08:00 109 12/09/18 08:00 109 17 117/72 (87) 99 12/09/18 08:00 Nasal Cannula 3.0 Nasal Cannula 3.0 Nasal Cannula 3.0 Nasal Cannula 3.0 12/09/18 07:00 115 20 135/94 (108) 99 12/09/18 06:00 117 19 125/85 (98) 99 117 12/09/18 05:00 115 20 119/80 (93) 99 115 12/09/18 04:00 98.4 120 20 126/63 (84) 96 120 12/09/18 04:00 Nasal Cannula 3.0 Nasal Cannula 3.0 Nasal Cannula 3.0 Nasal Cannula 3.0 12/09/18 04:00 124 12/09/18 03:00 99 16 116/72 (87) 98 126 12/09/18 02:00 110 16 121/70 (87) 96 12/09/18 01:00 103 19 116/74 (88) 95 12/09/18 00:00 98.5 101 21 95 12/09/18 00:00 Nasal Cannula 3.0 Nasal Cannula 3.0 Nasal Cannula 3.0 Nasal Cannula 3.0 12/08/18 23:00 100 18 118/81 (93) 97 12/08/18 22:00 101 20 126/73 (90) 99 12/08/18 21:00 98.5 106 21 125/100 (108) 99 12/08/18 20:08 99 Nasal Cannula 2.0 28 12/08/18 20:00 Nasal Cannula 3.0 Nasal Cannula 3.0 Nasal Cannula 3.0 Nasal Cannula 3.0 12/08/18 20:00 103 18 116/65 (82) 100 12/08/18 20:00 99 12/08/18 19:00 104 18 119/74 (89) 100 12/08/18 18:00 101 18 114/70 (85) 99 12/08/18 17:25 121/82 12/08/18 17:00 103 19 121/82 (95) 100 Height (Feet): 5 Height (Inches): 5.00 Weight (Pounds): 145 Objective General Appearance: WD/WN, no apparent distress Lines, tubes and drains: central line HEENT: normocephalic, atraumatic Neck: non-tender, normal alignment Cardiovascular/Chest: normal peripheral pulses, normal rate, regular rhythm Abdomen: normal bowel sounds, non tender Extremities: normal range of motion Skin Exam: normal pigmentation Neurologic: shift mechanic II-XII grossly normal Laboratory Tests Test 12/09/18 04:30 White Blood Count 12.4 K/UL (4.8-10.8) H Red Blood Count 2.73 M/UL (4.70-6.10) L Hemoglobin 8.4 G/DL (14.2-18.0) L Hematocrit 26.1 % (42.0-52.0) L Mean Corpuscular Volume 96 FL (80-99) Mean Corpuscular Hemoglobin 31.0 PG (27.0-31.0) Mean Corpuscular Hemoglobin Concent 32.3 G/DL (32.0-36.0) Red Cell Distribution Width 16.9 % (11.6-14.8) H Platelet Count 237 K/UL (150-450) Mean Platelet Volume 6.0 FL (6.5-10.1) L Neutrophils (%) (Auto) % (45.0-75.0) Lymphocytes (%) (Auto) % (20.0-45.0) Monocytes (%) (Auto) % (1.0-10.0) Eosinophils (%) (Auto) % (0.0-3.0) Basophils (%) (Auto) % (0.0-2.0) Differential Total Cells Counted 100 Neutrophils % (Manual) 91 % (45-75) H Lymphocytes % (Manual) 6 % (20-45) L Monocytes % (Manual) 2 % (1-10) Eosinophils % (Manual) 1 % (0-3) Basophils % (Manual) 0 % (0-2) Band Neutrophils 0 % (0-8) Platelet Estimate Adequate Platelet Morphology Normal Anisocytosis 1+ [place] Cells 1+ Erythrocyte Sedimentation Rate 44 MM/HR (0-20) H Sodium Level 145 MMOL/L (136-145) Potassium Level 2.9 MMOL/L (3.5-5.1) L Chloride Level 111 MMOL/L (98-107) H Carbon Dioxide Level 23 MMOL/L (21-32) Anion Gap 11 mmol/L (5-15) Blood Urea Nitrogen 8 mg/dL (7-18) Creatinine 0.5 MG/DL (0.55-1.30) L Estimat Glomerular Filtration Rate mL/min (>60) Glucose Level 95 MG/DL (74-106) Calcium Level 7.4 MG/DL (8.5-10.1) L Phosphorus Level 3.0 MG/DL (2.5-4.9) Magnesium Level 1.5 MG/DL (1.8-2.4) L Total Bilirubin 1.4 MG/DL (0.2-1.0) H Direct Bilirubin 0.9 MG/DL (0.0-0.3) H Aspartate Amino Transf (AST/SGOT) 11 U/L (15-37) L Alanine Aminotransferase (ALT/SGPT) 7 U/L (12-78) L Alkaline Phosphatase 88 U/L (46-116) C-Reactive Protein, Quantitative 10.9 mg/dL (0.00-0.90) H Total Protein 4.1 G/DL (6.4-8.2) L Albumin 1.5 G/DL (3.4-5.0) L Globulin 2.6 g/dL Albumin/Globulin Ratio 0.6 (1.0-2.7) L Random Amikacin Level 9.0 ug/mL Current Medications Medications (Trade) Dose Ordered Sig/Pauline Route PRN Reason Start Time Stop Time Status Last Admin Dose Admin Acetaminophen (Tylenol) 650 mg Q4H PRN GT T>100.5 11/27/18 18:18 12/22/18 18:17 12/03/18 13:02 Amikacin Protocol (Amikacin pharmacy to dose) 1 ea DAILY PRN MISC Per rx protocol 12/08/18 16:45 01/07/19 16:44 Amikacin Sulfate 900 mg/Sodium Chloride 113.6 ml @ 113.6 mls/ hr Q24H IV 12/09/18 18:00 12/16/18 17:59 Chlorhexidine Gluconate (Marycarmen-Hex 2%) 1 applic DAILY@2000 TOPIC 11/30/18 20:00 12/30/18 19:59 12/08/18 20:51 Dextrose (Dextrose 50%) 25 ml Q30M PRN IV Hypoglycemia 11/27/18 18:18 12/18/18 18:17 Dextrose (Dextrose 50%) 50 ml Q30M PRN IV Hypoglycemia 11/27/18 18:18 12/18/18 18:17 Digoxin (Lanoxin) 0.125 mg DAILY NG 12/09/18 12:45 01/08/19 12:44 12/09/18 13:06 Hydralazine HCl (Apresoline) 10 mg Q4H PRN IV Systolic BP greater than 170 12/05/18 15:00 01/03/19 16:44 Hydrocortisone (Proctosol-HC Cream) 1 applic Q12HR TOPIC 12/02/18 13:00 01/01/19 12:59 12/09/18 08:25 Lactobacillus Acidophilus (Culturelle) 1 tab THREE TIMES A DAY ORAL 11/29/18 18:00 12/29/18 17:59 12/09/18 13:06 Metoprolol Tartrate (Lopressor) 12.5 mg Q12HR NG 12/09/18 21:00 01/08/19 20:59 Metronidazole 100 ml @ 100 mls/hr Q8HR IVPB 12/04/18 14:00 12/11/18 13:59 12/09/18 13:45 Midazolam HCl (Versed 2mg/2ml vial) 1 mg Q1H PRN IVP SEDATION 12/02/18 20:30 01/01/19 20:29 Morphine Sulfate (Morphine Sulfate) 2 mg Q1H PRN IVP For Pain scale 4-7 12/02/18 20:23 12/09/18 20:22 12/06/18 18:42 Norepinephrine Bitartrate 8 mg/ Sodium Chloride 250 ml @ 0 mls/hr Q24H IV 12/03/18 18:03 01/02/19 18:02 12/03/18 18:09 Pantoprazole (Protonix) 40 mg EVERY 12 HOURS IVP 12/07/18 21:00 01/06/19 20:59 12/09/18 08:25 Sodium Hypochlorite (Dakin's Quarter Strength) 1 applic DAILY TOPIC 12/04/18 12:00 01/03/19 11:59 12/09/18 08:25 Vancomycin HCl (Vanco rx to dose) 1 ea DAILY PRN MISC Per rx protocol 11/27/18 18:18 12/27/18 18:17 Vancomycin HCl 750 mg/Sodium Chloride 275 ml @ 183.333 mls/hr Q12HR IVPB 12/07/18 21:00 12/15/18 23:59 12/09/18 08:26 Neva Yee M.D. Dec 09, 2018 16:29
--- NOTE | 2018-12-09 16:30 | Progress Note ---
DATE: 12/08/2018 SUBJECTIVE: This is a male patient, still in the ICU where he has sepsis and pneumonia. Antibiotics were started. Continue throughout the hospital course to prevent any further decline in his cognition. This patient continues to have some confusion, some disorganized thought process cognition below his baseline. DIAGNOSIS: Major depressive disorder, mild, recurrent with psychotic features. PLAN: We will continue to treat this patient with medications to help stabilize his mood. 20 minutes of behavioral management. Chart was reviewed. Discussed with staff. Laith Mason M.D. DR: JOVANNY JOB#: [id number] CC:
--- NOTE | 2018-12-09 16:54 | NUR ---
HAND-OFF: Report given to Lindsey DUNN.
[2018-12-09] MEDS ORDERED: Acetaminophen 650mg/20.3ml GT PRN (17:00)
--- NOTE | 2018-12-09 17:00 | NUR ---
NURSE NOTES: Received report from MONA Danielson. Patient transferred from ICU to room 234. Patient in bed, awake, nonverbal. On O2 2L via NC, saturating 98%. No respiratory distress noted. Placed on cardiac monitor technician, shows sinus tachycardia HR 105. Right SC triple lumen catheter intact and patent. GT intact and patent with feeding infusing at prescribed rate, tolerating well. HOB elevated. Abdominal incision with carmel intact, ANGIE intact with minimal drainage. Bradley catheter intact and draining well to gravity. Safety precautions in place, bed locked, alarmed, and in lowest position, padded side rails up x3, and call light within reach. Will continue with plan of care.
[2018-12-09] MEDS ORDERED: Morphine Sulfate 2mg/ml Inj(IV/IM USE ONLY) IVP PRN (17:30)
[2018-12-09] MEDS ORDERED: Midazolam 2mg/2ml Inj IVP PRN (17:30)
[2018-12-09] MEDS: Amikacin 900 MG in NS 110 ML IV SCH (17:36)
[2018-12-09] MEDS ORDERED: Amikacin 900 MG in NS 110 ML IV SCH (18:00)
--- NOTE | 2018-12-09 19:16 | NUR ---
HAND-OFF: Report given to MONA Chávez. Patient in stable condition.
--- NOTE | 2018-12-09 19:17 | NUR ---
NURSE NOTES: Received patient from Edna RN, Patient is awake, on NC 2L, VSS, no acute distress, and G-Tube feeding running. Patient's eyes are open although patient appears obtunded. Wound drain is holding suction with a small amount of brown fluid. All extremities are swollen with +4 edema and the skin on his arms are moist. Bed at its lowest position, call light in reach and X3 bed rails are up.
[2018-12-09] MEDS: Dyna-Hex 2% Top Sol 2oz TOPIC SCH (20:11)
[2018-12-09] MEDS: Metoprolol Tartrate 12.5mg TAB NG SCH (20:14)
[2018-12-09] MEDS ORDERED: Metoprolol Tartrate 12.5mg TAB NG SCH (21:00)
[2018-12-10] VITALS: BP 126/70
[2018-12-10 04:00] VITALS: BP 100/62
--- NOTE | 2018-12-10 04:48 | NUR ---
NURSE NOTES: Urinary caterer, and right subclavian triple lumen line orders need to be clarified. Will call MD in the AM and endorse to morning nurse. Addendum: 12/10/18 at 0639 by Kyler Rodriguez RN NURSE NOTES: Urinary catheter orders need clarification. Will endorse to AM nurse.
[2018-12-10 05:18] LABS: HEMATOCRIT 26.3 % (42.0-52.0); HEMOGLOBIN 8.5 G/DL (14.2-18.0); MEAN CORPUSCULAR VOLUME 96 FL (80-99); PLATELET COUNT 271 K/UL (150-450); RED BLOOD COUNT 2.73 M/UL (4.70-6.10); RED CELL DISTRIBUTION WIDTH 16.9 % (11.6-14.8); WHITE BLOOD COUNT 13.9 K/UL (4.8-10.8)
[2018-12-10 05:43] LABS: ALANINE AMINOTRANSFERASE 8 U/L (12-78); ALBUMIN 1.4 G/DL (3.4-5.0); ALBUMIN/GLOBULIN RATIO 0.6 (1.0-2.7); ALKALINE PHOSPHATASE 218 U/L (46-116); ANION GAP 10 mmol/L (5-15); ASPARTATE AMINO TRANSFERASE 16 U/L (15-37); BILIRUBIN,TOTAL 1.5 MG/DL (0.2-1.0); BLOOD UREA NITROGEN 7 mg/dL (7-18); CALCIUM 7.3 MG/DL (8.5-10.1); CARBON DIOXIDE 23 MMOL/L (21-32); CHLORIDE 113 MMOL/L (98-107); CREATININE 0.4 MG/DL (0.55-1.30); PHOSPHORUS 2.5 MG/DL (2.5-4.9); POTASSIUM 3.8 MMOL/L (3.5-5.1); SODIUM 146 MMOL/L (136-145)
[2018-12-10 05:58] LABS: BILIRUBIN,DIRECT 0.8 MG/DL (0.0-0.3)
--- NOTE | 2018-12-10 07:00 | NUR ---
HAND-OFF: Report given to Tracie DUNN.
--- NOTE | 2018-12-10 07:09 | General Progress Note ---
Assessment/Plan Problem List: (1) Acute DVT (deep venous thrombosis) ICD Codes: I82.409 - Acute embolism and thrombosis of unspecified deep veins of unspecified lower extremity SNOMED: 855320710552184 (2) UTI (urinary tract infection) ICD Codes: N39.0 - Urinary tract infection, site not specified SNOMED: 92223620, 379225146 Qualifiers: Qualified Codes: N30.00 - Acute cystitis without hematuria (3) Anemia, chronic disease ICD Codes: D63.8 - Anemia in other chronic diseases classified elsewhere SNOMED: 314906127, 962030926 (4) Parkinson disease ICD Codes: G20 - Parkinson's disease SNOMED: 73517793 (5) Alzheimer's dementia ICD Codes: G30.9 - Alzheimer's disease, unspecified; F02.80 - Dementia in other diseases classified elsewhere without behavioral disturbance SNOMED: 24713754 (6) COPD (chronic obstructive pulmonary disease) ICD Codes: J44.9 - Chronic obstructive pulmonary disease, unspecified SNOMED: 67433743 Status: stable, progressing Assessment/Plan: o2 pulm tx abx pt diet heme f/u cbc bmp am ltach eval Subjective Constitutional: Reports: weakness Allergies: Coded Allergies: No Known Allergies (Unverified , 11/18/18) All Systems: reviewed and negative except above Subjective o2nc sleepy Objective Last 24 Hour Vital Signs Date Time Temp Pulse Resp B/P (MAP) Pulse Ox O2 Delivery O2 Flow Rate FiO2 12/10/18 04:00 102 12/10/18 04:00 98.1 102 20 100/62 (75) 93 12/10/18 04:00 Nasal Cannula 3.0 Nasal Cannula 3.0 Nasal Cannula 3.0 Nasal Cannula 3.0 12/10/18 00:00 Nasal Cannula 3.0 Nasal Cannula 3.0 Nasal Cannula 3.0 Nasal Cannula 3.0 12/10/18 00:00 99.0 83 20 126/70 (88) 97 12/09/18 23:20 105 12/09/18 20:31 2.0 12/09/18 20:19 98 Nasal Cannula 2.0 28 12/09/18 20:14 98 108/68 12/09/18 20:00 104 12/09/18 20:00 Nasal Cannula 3.0 Nasal Cannula 3.0 Nasal Cannula 3.0 Nasal Cannula 2.0 12/09/18 20:00 98.6 98 20 108/68 (81) 100 12/09/18 17:00 98.4 113 23 109/61 (77) 98 12/09/18 16:00 121 12/09/18 16:00 98.2 115 23 101/63 (76) 86 12/09/18 16:00 Nasal Cannula 3.0 Nasal Cannula 3.0 Nasal Cannula 3.0 Nasal Cannula 3.0 12/09/18 15:00 115 20 127/78 (94) 99 12/09/18 14:00 118 22 128/87 (101) 98 12/09/18 13:06 114 12/09/18 13:00 107 19 125/75 (92) 99 12/09/18 12:00 98.4 112 20 124/81 (95) 99 12/09/18 12:00 Nasal Cannula 3.0 Nasal Cannula 3.0 Nasal Cannula 3.0 Nasal Cannula 3.0 12/09/18 12:00 114 12/09/18 11:00 118 20 114/84 (94) 98 12/09/18 10:00 106 19 132/81 (98) 99 12/09/18 09:00 114 18 121/70 (87) 99 12/09/18 08:00 109 12/09/18 08:00 109 17 117/72 (87) 99 12/09/18 08:00 Nasal Cannula 3.0 Nasal Cannula 3.0 Nasal Cannula 3.0 Nasal Cannula 3.0 Intake and Output 12/09/18 12/10/18 19:00 07:00 Intake Total 888.933 ml 346.96486 ml Output Total 460 ml 320 ml Balance 428.933 ml 26.11615 ml IV Total 688.933 ml 166.53425 ml Tube Feeding 200 ml 180 ml Output Urine Total 360 ml 300 ml Drainage Total 100 ml 20 ml # Bowel Movements 3 1 Laboratory Tests 12/10/18 03:35: White Blood Count 13.9H, Red Blood Count 2.73L, Hemoglobin 8.5L, Hematocrit 26.3L, Mean Corpuscular Volume 96, Mean Corpuscular Hemoglobin 31.1H, Mean Corpuscular Hemoglobin Concent 32.3, Red Cell Distribution Width 16.9H, Platelet Count 271, Mean Platelet Volume 6.2L, Neutrophils (%) (Auto) , Lymphocytes (%) (Auto) , Monocytes (%) (Auto) , Eosinophils (%) (Auto) , Basophils (%) (Auto) , Neutrophils % (Manual) [Pending], Lymphocytes % (Manual) [Pending], Platelet Estimate [Pending], Platelet Morphology [Pending], Sodium Level 146H, Potassium Level 3.8, Chloride Level 113H, Carbon Dioxide Level 23, Anion Gap 10, Blood Urea Nitrogen 7, Creatinine 0.4L, Estimat Glomerular Filtration Rate , Glucose Level 118H, Calcium Level 7.3L, Phosphorus Level 2.5, Magnesium Level 1.5L, Total Bilirubin 1.5H, Direct Bilirubin 0.8H, Aspartate Amino Transf (AST/SGOT) 16, Alanine Aminotransferase (ALT/SGPT) 8L, Alkaline Phosphatase 218H, Total Protein 3.7L, Albumin 1.4L, Globulin 2.3, Albumin/ Globulin Ratio 0.6L, Digoxin Level 0.4L Height (Feet): 5 Height (Inches): 5.00 Weight (Pounds): 162 General Appearance: lethargic EENT: normal ENT inspection Neck: normal alignment Cardiovascular: normal peripheral pulses, normal rate, regular rhythm Respiratory/Chest: chest wall non-tender, lungs clear, normal breath sounds Abdomen: normal bowel sounds, non tender, soft Extremities: normal inspection Edema: no edema noted Arm (L), no edema noted Arm (R), no edema noted Leg (L), no edema noted Leg (R), no edema noted Pedal (L), no edema noted Pedal (R), no edema noted Generalized Neurologic: motor weakness Skin: normal pigmentation, warm/dry Abdullahi Gonzalez DO Dec 10, 2018 07:09
[2018-12-10 08:00] VITALS: BP 128/69
--- NOTE | 2018-12-10 08:01 | NUR ---
NURSE NOTES: Received pt from Kyler Rodriguez RN in stable condition with no cardiopulmonary distress noted. Pt is obtunded on 3L O2 via NC, hooked to school lunch monitor currently ST (105 bpm). GT noted running Vital AF 1.2 at 20cc/hr. F/C noted draining dark orange urine. Skin alterations noted. Pt has a R subclavian triple lumen central line. All extremities noted to be w/ pitting edema and weeping noted on bilat upper extremities. Pt has an abd incision with carmel noted across mid abd region- carmel intact. ANGIE drain noted in right middle abd quadrant draining dark brown color drainage. Side rails padded per seizure precaution and up x 2, bed in lowest position with alarm on, call light within reach. Will continue to monitor pt. Addendum: 12/10/18 at 0811 by Tracie Gusman RN Incorrect time: received pt at 0700
[2018-12-10] MEDS ORDERED: Amikacin Rx to dose MISC PRN (09:00)
[2018-12-10] MEDS: Hydrocortisone 2.5% Cream - 30gm TOPIC SCH ×2 (09:47→20:57)
[2018-12-10] MEDS: Metoprolol Tartrate 12.5mg TAB NG SCH ×2 (09:47→20:56)
[2018-12-10] MEDS: Dakin's 0.125% Soln (Quarter Strength) 16oz TOPIC SCH (09:48)
[2018-12-10] MEDS: Digoxin 0.125mg tab NG SCH (09:48)
[2018-12-10] MEDS: Lactobacillus-GG tablet ORAL SCH ×3 (09:48→17:37)
[2018-12-10] MEDS: Pantoprazole Inj IVP SCH ×2 (09:49→20:56)
--- NOTE | 2018-12-10 10:30 | Progress Note ---
DATE: 12/10/2018 SUBJECTIVE: This is a male patient, who is 73-year-old male patient with sepsis and pneumonia. He has decline in cognition below his baseline, altered mental status. He has got some confusion and disorganized thought process. He is currently in ICU step down, still has some altered mental status, confusion, and continue treatment with medications. MENTAL STATUS EXAMINATION: This is a 73-year-old male. Appearance is disheveled. Attitude, irritable and agitated. Affect, guarded and restricted. Insight and judgment is poor. DIAGNOSIS: Major depressive disorder, mild, recurrent with psychotic features. PLAN: Continue treatment with medications to stabilize his mood. A 20 minutes of behavioral management provided. Chart reviewed. Discussed with staff. Seen and assessed in his room. Laith Mason M.D. DR: MILY JOB#: [id number] CC:
--- NOTE | 2018-12-10 10:37 | GI Progress Note ---
Assessment/Plan Problems: (1) Parkinson disease ICD Codes: G20 - Parkinson's disease SNOMED: 14962759 (2) Alzheimer's dementia ICD Codes: G30.9 - Alzheimer's disease, unspecified; F02.80 - Dementia in other diseases classified elsewhere without behavioral disturbance SNOMED: 62113799 (3) Feeding by G-tube ICD Codes: Z93.1 - Gastrostomy status SNOMED: 054378155, 483307297, 524514910 (4) Anemia, chronic disease ICD Codes: D63.8 - Anemia in other chronic diseases classified elsewhere SNOMED: 419355812, 959299016 Status: unchanged Status Narrative Discussed with Dr. Dallas. Assessment/Plan Duodenal ulcer, s/p SURG TF per surgery iv ppi stable H&H will fu may need TPN if prolonged NPO status anticipated The patient was seen and examined at bedside and all new and available data was reviewed in the patients chart. I agree with the above findings, impression and plan. (Patient seen earlier today. Signature stamp does not reflect patient encounter time.). - Deacon Dallas MD Subjective Subjective limited Objective Last 24 Hour Vital Signs Date Time Temp Pulse Resp B/P (MAP) Pulse Ox O2 Delivery O2 Flow Rate FiO2 12/10/18 09:48 104 12/10/18 09:47 104 128/69 12/10/18 08:00 98.4 104 18 128/69 (88) 94 12/10/18 04:00 102 12/10/18 04:00 98.1 102 20 100/62 (75) 93 12/10/18 04:00 Nasal Cannula 3.0 Nasal Cannula 3.0 Nasal Cannula 3.0 Nasal Cannula 3.0 12/10/18 00:00 Nasal Cannula 3.0 Nasal Cannula 3.0 Nasal Cannula 3.0 Nasal Cannula 3.0 12/10/18 00:00 99.0 83 20 126/70 (88) 97 12/09/18 23:20 105 12/09/18 20:31 2.0 12/09/18 20:19 98 Nasal Cannula 2.0 28 12/09/18 20:14 98 108/68 12/09/18 20:00 104 12/09/18 20:00 Nasal Cannula 3.0 Nasal Cannula 3.0 Nasal Cannula 3.0 Nasal Cannula 2.0 12/09/18 20:00 98.6 98 20 108/68 (81) 100 12/09/18 17:00 98.4 113 23 109/61 (77) 98 12/09/18 16:00 121 12/09/18 16:00 98.2 115 23 101/63 (76) 86 12/09/18 16:00 Nasal Cannula 3.0 Nasal Cannula 3.0 Nasal Cannula 3.0 Nasal Cannula 3.0 12/09/18 15:00 115 20 127/78 (94) 99 12/09/18 14:00 118 22 128/87 (101) 98 12/09/18 13:06 114 12/09/18 13:00 107 19 125/75 (92) 99 12/09/18 12:00 98.4 112 20 124/81 (95) 99 12/09/18 12:00 Nasal Cannula 3.0 Nasal Cannula 3.0 Nasal Cannula 3.0 Nasal Cannula 3.0 12/09/18 12:00 114 12/09/18 11:00 118 20 114/84 (94) 98 Intake and Output 12/09/18 12/10/18 18:59 06:59 Intake Total 878.933 ml 426.50289 ml Output Total 460 ml 550 ml Balance 418.933 ml -123.16103 ml IV Total 688.933 ml 166.01715 ml Tube Feeding 190 ml 260 ml Output Urine Total 410 ml 480 ml Drainage Total 50 ml 70 ml # Bowel Movements 3 1 Laboratory Tests Test 12/10/18 03:35 White Blood Count 13.9 K/UL (4.8-10.8) H Red Blood Count 2.73 M/UL (4.70-6.10) L Hemoglobin 8.5 G/DL (14.2-18.0) L Hematocrit 26.3 % (42.0-52.0) L Mean Corpuscular Volume 96 FL (80-99) Mean Corpuscular Hemoglobin 31.1 PG (27.0-31.0) H Mean Corpuscular Hemoglobin Concent 32.3 G/DL (32.0-36.0) Red Cell Distribution Width 16.9 % (11.6-14.8) H Platelet Count 271 K/UL (150-450) Mean Platelet Volume 6.2 FL (6.5-10.1) L Neutrophils (%) (Auto) % (45.0-75.0) Lymphocytes (%) (Auto) % (20.0-45.0) Monocytes (%) (Auto) % (1.0-10.0) Eosinophils (%) (Auto) % (0.0-3.0) Basophils (%) (Auto) % (0.0-2.0) Differential Total Cells Counted 100 Neutrophils % (Manual) 86 % (45-75) H Lymphocytes % (Manual) 8 % (20-45) L Monocytes % (Manual) 6 % (1-10) Eosinophils % (Manual) 0 % (0-3) Basophils % (Manual) 0 % (0-2) Band Neutrophils 0 % (0-8) Platelet Estimate Adequate Platelet Morphology Normal Hypochromasia 1+ Anisocytosis 1+ Sodium Level 146 MMOL/L (136-145) H Potassium Level 3.8 MMOL/L (3.5-5.1) Chloride Level 113 MMOL/L (98-107) H Carbon Dioxide Level 23 MMOL/L (21-32) Anion Gap 10 mmol/L (5-15) Blood Urea Nitrogen 7 mg/dL (7-18) Creatinine 0.4 MG/DL (0.55-1.30) L Estimat Glomerular Filtration Rate mL/min (>60) Glucose Level 118 MG/DL (74-106) H Calcium Level 7.3 MG/DL (8.5-10.1) L Phosphorus Level 2.5 MG/DL (2.5-4.9) Magnesium Level 1.5 MG/DL (1.8-2.4) L Total Bilirubin 1.5 MG/DL (0.2-1.0) H Direct Bilirubin 0.8 MG/DL (0.0-0.3) H Aspartate Amino Transf (AST/SGOT) 16 U/L (15-37) Alanine Aminotransferase (ALT/SGPT) 8 U/L (12-78) L Alkaline Phosphatase 218 U/L (46-116) H Total Protein 3.7 G/DL (6.4-8.2) L Albumin 1.4 G/DL (3.4-5.0) L Globulin 2.3 g/dL Albumin/Globulin Ratio 0.6 (1.0-2.7) L Digoxin Level 0.4 NG/ML (0.5-2.0) L Height (Feet): 5 Height (Inches): 5.00 Weight (Pounds): 162 General Appearance: alert Cardiovascular: normal rate Respiratory/Chest: no respiratory distress Abdominal Exam: soft Sohan Kohli NP Dec 10, 2018 10:37
--- NOTE | 2018-12-10 10:39 | Pulmonology Progress Note ---
Assessment/Plan Problems: (1) C. difficile colitis (2) Hemorrhagic shocks (3) Duodenal ulcer hemorrhage (4) HCAP (healthcare-associated pneumonia) (5) Sepsis (6) Acute DVT (deep venous thrombosis) (7) COPD (chronic obstructive pulmonary disease) (8) Anemia, chronic disease (9) Severe protein-calorie malnutrition (10) SVT (supraventricular tachycardia) (11) Status post exploratory laparotomy (12) S/P insertion of IVC (inferior vena caval) filter (13) Alzheimer's dementia (14) Parkinson disease (15) Feeding by G-tube (16) Seizures Assessment/Plan heart rate better s/p IVC filter continue abx, Amikacin, flagyl wound c are check electrolytes Respiratory treatment keep in cliff/teli Subjective ROS Limited/Unobtainable: No Constitutional: Reports: no symptoms HEENT: Repors: no symptoms Allergies: Coded Allergies: No Known Allergies (Unverified , 11/18/18) Objective Last 24 Hour Vital Signs Date Time Temp Pulse Resp B/P (MAP) Pulse Ox O2 Delivery O2 Flow Rate FiO2 12/10/18 09:48 104 12/10/18 09:47 104 128/69 12/10/18 08:00 98.4 104 18 128/69 (88) 94 12/10/18 04:00 102 12/10/18 04:00 98.1 102 20 100/62 (75) 93 12/10/18 04:00 Nasal Cannula 3.0 Nasal Cannula 3.0 Nasal Cannula 3.0 Nasal Cannula 3.0 12/10/18 00:00 Nasal Cannula 3.0 Nasal Cannula 3.0 Nasal Cannula 3.0 Nasal Cannula 3.0 12/10/18 00:00 99.0 83 20 126/70 (88) 97 12/09/18 23:20 105 12/09/18 20:31 2.0 12/09/18 20:19 98 Nasal Cannula 2.0 28 12/09/18 20:14 98 108/68 12/09/18 20:00 104 12/09/18 20:00 Nasal Cannula 3.0 Nasal Cannula 3.0 Nasal Cannula 3.0 Nasal Cannula 2.0 12/09/18 20:00 98.6 98 20 108/68 (81) 100 12/09/18 17:00 98.4 113 23 109/61 (77) 98 12/09/18 16:00 121 12/09/18 16:00 98.2 115 23 101/63 (76) 86 12/09/18 16:00 Nasal Cannula 3.0 Nasal Cannula 3.0 Nasal Cannula 3.0 Nasal Cannula 3.0 12/09/18 15:00 115 20 127/78 (94) 99 12/09/18 14:00 118 22 128/87 (101) 98 12/09/18 13:06 114 12/09/18 13:00 107 19 125/75 (92) 99 12/09/18 12:00 98.4 112 20 124/81 (95) 99 12/09/18 12:00 Nasal Cannula 3.0 Nasal Cannula 3.0 Nasal Cannula 3.0 Nasal Cannula 3.0 12/09/18 12:00 114 12/09/18 11:00 118 20 114/84 (94) 98 Intake and Output 12/09/18 12/10/18 19:00 07:00 Intake Total 888.933 ml 460.17929 ml Output Total 460 ml 500 ml Balance 428.933 ml -40.66894 ml IV Total 688.933 ml 200.58751 ml Tube Feeding 200 ml 260 ml Output Urine Total 360 ml 480 ml Drainage Total 100 ml 20 ml # Bowel Movements 3 1 General Appearance: WD/WN HEENT: normocephalic, atraumatic Respiratory/Chest: chest wall non-tender, lungs clear Cardiovascular: normal peripheral pulses, normal rate Abdomen: normal bowel sounds, soft, non tender Genitourinary: normal external genitalia Extremities: no clubbing Skin: no rash Laboratory Tests 12/10/18 03:35: White Blood Count 13.9H, Red Blood Count 2.73L, Hemoglobin 8.5L, Hematocrit 26.3L, Mean Corpuscular Volume 96, Mean Corpuscular Hemoglobin 31.1H, Mean Corpuscular Hemoglobin Concent 32.3, Red Cell Distribution Width 16.9H, Platelet Count 271, Mean Platelet Volume 6.2L, Neutrophils (%) (Auto) , Lymphocytes (%) (Auto) , Monocytes (%) (Auto) , Eosinophils (%) (Auto) , Basophils (%) (Auto) , Differential Total Cells Counted 100, Neutrophils % ( Manual) 86H, Lymphocytes % (Manual) 8L, Monocytes % (Manual) 6, Eosinophils % ( Manual) 0, Basophils % (Manual) 0, Band Neutrophils 0, Platelet Estimate Adequate, Platelet Morphology Normal, Hypochromasia 1+, Anisocytosis 1+, Sodium Level 146H, Potassium Level 3.8, Chloride Level 113H, Carbon Dioxide Level 23, Anion Gap 10, Blood Urea Nitrogen 7, Creatinine 0.4L, Estimat Glomerular Filtration Rate , Glucose Level 118H, Calcium Level 7.3L, Phosphorus Level 2.5, Magnesium Level 1.5L, Total Bilirubin 1.5H, Direct Bilirubin 0.8H, Aspartate Amino Transf (AST/SGOT) 16, Alanine Aminotransferase (ALT/SGPT) 8L, Alkaline Phosphatase 218H, Total Protein 3.7L, Albumin 1.4L, Globulin 2.3, Albumin/ Globulin Ratio 0.6L, Digoxin Level 0.4L Current Medications Medications (Trade) Dose Ordered Sig/Pauline Route PRN Reason Start Time Stop Time Status Last Admin Dose Admin Acetaminophen (Tylenol) 650 mg Q4H PRN GT T>100.5 12/09/18 17:00 12/22/18 16:59 Amikacin Protocol (Amikacin pharmacy to dose) 1 ea DAILY PRN MISC Per rx protocol 12/10/18 09:00 01/07/19 16:44 Amikacin Sulfate 900 mg/Sodium Chloride 113.6 ml @ 113.6 mls/ hr Q24H IV 12/09/18 18:00 12/16/18 17:59 12/09/18 17:36 Chlorhexidine Gluconate (Marycarmen-Hex 2%) 1 applic DAILY@2000 TOPIC 12/09/18 20:00 12/30/18 19:59 12/09/18 20:11 Dextrose (Dextrose 50%) 25 ml Q30M PRN IV Hypoglycemia 12/09/18 17:30 12/18/18 18:17 Dextrose (Dextrose 50%) 50 ml Q30M PRN IV Hypoglycemia 12/09/18 17:30 12/18/18 18:17 Digoxin (Lanoxin) 0.125 mg DAILY NG 12/10/18 09:00 01/08/19 12:44 12/10/18 09:48 Hydralazine HCl (Apresoline) 10 mg Q4H PRN IV Systolic BP greater than 170 12/09/18 17:00 01/03/19 16:59 Hydrocortisone (Proctosol-HC Cream) 1 applic Q12HR TOPIC 12/09/18 21:00 01/01/19 12:59 12/10/18 09:47 Lactobacillus Acidophilus (Culturelle) 1 tab THREE TIMES A DAY ORAL 12/09/18 18:00 12/29/18 17:59 12/10/18 09:48 Magnesium Sulfate 100 ml @ 100 mls/hr Q1H IVPB 12/10/18 10:30 12/10/18 14:29 Metoprolol Tartrate (Lopressor) 12.5 mg Q12HR NG 12/09/18 21:00 01/08/19 20:59 12/10/18 09:47 Metronidazole 100 ml @ 100 mls/hr Q8HR IVPB 12/09/18 22:00 12/11/18 13:59 12/10/18 05:20 Midazolam HCl (Versed 2mg/2ml vial) 1 mg Q1H PRN IVP SEDATION 12/09/18 17:30 01/01/19 20:29 Pantoprazole (Protonix) 40 mg EVERY 12 HOURS IVP 12/09/18 21:00 01/06/19 20:59 12/10/18 09:49 Sodium Hypochlorite (Dakin's Quarter Strength) 1 applic DAILY TOPIC 12/10/18 09:00 01/03/19 11:59 12/10/18 09:48 David Carrasquillo MD Dec 10, 2018 10:39
[2018-12-10 12:00] VITALS: BP 131/72
--- NOTE | 2018-12-10 12:45 | Infectious Diseases Prog Note ---
Assessment/Plan Assessment/Plan VDRF, s/p extubation 12/08 GIB- 2ry to actively bleeding Duodenal ulcer -12/02 SP exploratory laparotomy. Anterior duodenotomy for control of large posterior duodenal ulcer hemorrhage. closure of duodenotomy. pyloric exclusion with gastrojejunostomy abdominal washout. abdominal drain placement -12/02 SP EGD Shock likely hemorrhagic and septic component- now off presors -12/04 CXR: Suggestion of a slightly worsening vascular congestion -12/03 u/a neg, ucx Neg Bcx Neg -12/02 CXR: Slightly increased bilateral infiltrates Diarrhea CDiff + GI bleed 11/29 Colonscopy : Diverticulosis Sepsis -11/30 CT abd/p: Nonspecific trace free intraperitoneal fluid. No acute abdominal or pelvic process otherwise. Fairly extensive bilateral basilar pulmonary parenchymal consolidation and atelectasis. Bilateral small pleural effusions. Colonic diverticulosis. No evidence of diverticulitis. Gastrostomy. Nonobstructive 3 mm left intrarenal calyceal calculus. Prostatomegaly. Edema of the bilateral left greater than right subcutaneous fat. Fairly extensive chronic appearing bilateral hip degenerative changes, with bilateral joint effusions versus chronic synovial proliferation. Inferior vena cava filter -11/28 BCx Neg u/a no pyuria ucx Neg Pneumonia -12/07 CXR: Patchy airspace disease noted in the perihilar basilar regions. There may be a small left pleural effusion now present -12/03 Sp cx Citrobacter diversus (R Genta,Ancef, Bactrim); MDR P. stuarti ( S Amikacin) -CXR: Patchy bilateral infiltrates versus mixed interstitial alveolar edema noted. -sp cx MRSA, MDR P. stuarti (S Amikacin, Zosyn ; I cefepime; S ertapenem) Afebrile Leukocytosis; recurrent MRSA bacteremia- suspect 2ry to PNA- r/o endocarditis -11/18 Bcx 2/4 MRSA , 1/4 S. capitis, Diptheroids (these 2 are contaminants); BCx Neg -2d Echo:limited study (no vegetations) Probable UTI, sp Rx -u/a wbc 10-15, nit neg, leuk +2; ucx MDR ABC (S bactrim, gentamicin) Acute respiratory failure Sacral decubitus ulcer, necrotic, surrounding cellulitis GIB dementia HTN CKD COPD dysphagia s/p Gtube feeding Parkinson disease seizure disorder multiple decubiti wounds halfway resident Plan: - Continue IV Flagyl #7 (abx d #05/09) for Cdiff given NPO status -Cont IV Amikacin #3/7 for MDR PNA -12/09 SP IV Vancomycin #22 -12/03 SP PO Vancomycin #5 (held as pt now is NPO) -12/02 SP Flagyl #4 -11/29 SP Zosyn #8 -11/27 SP Bactrim #7 -11/23 SP Cefepime #6 -11/18 SP Levaquin x1 -f/u cx -Monitor CBC/CMP, temperatures -GT care -aspiration precautions -wound care per surgical team -Recommend FLORINA -f/u ucx, Bcx x2, sp cx -GI, Gen Sx f/u Subjective Allergies: Coded Allergies: No Known Allergies (Unverified , 11/18/18) Subjective afebrile Leukocytosis increased Transferre from ICU to [facility] Objective Vital Signs Last 24 Hour Vital Signs Date Time Temp Pulse Resp B/P (MAP) Pulse Ox O2 Delivery O2 Flow Rate FiO2 12/10/18 12:00 98.5 85 16 131/72 (91) 99 12/10/18 09:48 104 12/10/18 09:47 104 128/69 12/10/18 08:00 98.4 104 18 128/69 (88) 94 12/10/18 07:33 106 12/10/18 04:00 102 12/10/18 04:00 98.1 102 20 100/62 (75) 93 12/10/18 04:00 Nasal Cannula 3.0 Nasal Cannula 3.0 Nasal Cannula 3.0 Nasal Cannula 3.0 12/10/18 00:00 Nasal Cannula 3.0 Nasal Cannula 3.0 Nasal Cannula 3.0 Nasal Cannula 3.0 12/10/18 00:00 99.0 83 20 126/70 (88) 97 12/09/18 23:20 105 12/09/18 20:31 2.0 12/09/18 20:19 98 Nasal Cannula 2.0 28 12/09/18 20:14 98 108/68 12/09/18 20:00 104 12/09/18 20:00 Nasal Cannula 3.0 Nasal Cannula 3.0 Nasal Cannula 3.0 Nasal Cannula 2.0 12/09/18 20:00 98.6 98 20 108/68 (81) 100 12/09/18 17:00 98.4 113 23 109/61 (77) 98 12/09/18 16:00 121 12/09/18 16:00 98.2 115 23 101/63 (76) 86 12/09/18 16:00 Nasal Cannula 3.0 Nasal Cannula 3.0 Nasal Cannula 3.0 Nasal Cannula 3.0 12/09/18 15:00 115 20 127/78 (94) 99 12/09/18 14:00 118 22 128/87 (101) 98 12/09/18 13:06 114 12/09/18 13:00 107 19 125/75 (92) 99 Height (Feet): 5 Height (Inches): 5.00 Weight (Pounds): 162 Objective General Appearance: WD/WN, no apparent distress Lines, tubes and drains: central line HEENT: normocephalic, atraumatic Neck: non-tender, normal alignment Cardiovascular/Chest: normal peripheral pulses, normal rate, regular rhythm Abdomen: normal bowel sounds, non tender Extremities: normal range of motion Skin Exam: normal pigmentation Neurologic: tail trimmer II-XII grossly normal Laboratory Tests Test 12/10/18 03:35 White Blood Count 13.9 K/UL (4.8-10.8) H Red Blood Count 2.73 M/UL (4.70-6.10) L Hemoglobin 8.5 G/DL (14.2-18.0) L Hematocrit 26.3 % (42.0-52.0) L Mean Corpuscular Volume 96 FL (80-99) Mean Corpuscular Hemoglobin 31.1 PG (27.0-31.0) H Mean Corpuscular Hemoglobin Concent 32.3 G/DL (32.0-36.0) Red Cell Distribution Width 16.9 % (11.6-14.8) H Platelet Count 271 K/UL (150-450) Mean Platelet Volume 6.2 FL (6.5-10.1) L Neutrophils (%) (Auto) % (45.0-75.0) Lymphocytes (%) (Auto) % (20.0-45.0) Monocytes (%) (Auto) % (1.0-10.0) Eosinophils (%) (Auto) % (0.0-3.0) Basophils (%) (Auto) % (0.0-2.0) Differential Total Cells Counted 100 Neutrophils % (Manual) 86 % (45-75) H Lymphocytes % (Manual) 8 % (20-45) L Monocytes % (Manual) 6 % (1-10) Eosinophils % (Manual) 0 % (0-3) Basophils % (Manual) 0 % (0-2) Band Neutrophils 0 % (0-8) Platelet Estimate Adequate Platelet Morphology Normal Hypochromasia 1+ Anisocytosis 1+ Sodium Level 146 MMOL/L (136-145) H Potassium Level 3.8 MMOL/L (3.5-5.1) Chloride Level 113 MMOL/L (98-107) H Carbon Dioxide Level 23 MMOL/L (21-32) Anion Gap 10 mmol/L (5-15) Blood Urea Nitrogen 7 mg/dL (7-18) Creatinine 0.4 MG/DL (0.55-1.30) L Estimat Glomerular Filtration Rate mL/min (>60) Glucose Level 118 MG/DL (74-106) H Calcium Level 7.3 MG/DL (8.5-10.1) L Phosphorus Level 2.5 MG/DL (2.5-4.9) Magnesium Level 1.5 MG/DL (1.8-2.4) L Total Bilirubin 1.5 MG/DL (0.2-1.0) H Direct Bilirubin 0.8 MG/DL (0.0-0.3) H Aspartate Amino Transf (AST/SGOT) 16 U/L (15-37) Alanine Aminotransferase (ALT/SGPT) 8 U/L (12-78) L Alkaline Phosphatase 218 U/L (46-116) H Total Protein 3.7 G/DL (6.4-8.2) L Albumin 1.4 G/DL (3.4-5.0) L Globulin 2.3 g/dL Albumin/Globulin Ratio 0.6 (1.0-2.7) L Digoxin Level 0.4 NG/ML (0.5-2.0) L Current Medications Medications (Trade) Dose Ordered Sig/Pauline Route PRN Reason Start Time Stop Time Status Last Admin Dose Admin Acetaminophen (Tylenol) 650 mg Q4H PRN GT T>100.5 12/09/18 17:00 12/22/18 16:59 Amikacin Protocol (Amikacin pharmacy to dose) 1 ea DAILY PRN MISC Per rx protocol 12/10/18 09:00 01/07/19 16:44 Amikacin Sulfate 900 mg/Sodium Chloride 113.6 ml @ 113.6 mls/ hr Q24H IV 12/09/18 18:00 12/16/18 17:59 12/09/18 17:36 Chlorhexidine Gluconate (Marycarmen-Hex 2%) 1 applic DAILY@2000 TOPIC 12/09/18 20:00 12/30/18 19:59 12/09/18 20:11 Dextrose (Dextrose 50%) 25 ml Q30M PRN IV Hypoglycemia 12/09/18 17:30 12/18/18 18:17 Dextrose (Dextrose 50%) 50 ml Q30M PRN IV Hypoglycemia 12/09/18 17:30 12/18/18 18:17 Digoxin (Lanoxin) 0.125 mg DAILY NG 12/10/18 09:00 01/08/19 12:44 12/10/18 09:48 Hydralazine HCl (Apresoline) 10 mg Q4H PRN IV Systolic BP greater than 170 12/09/18 17:00 01/03/19 16:59 Hydrocortisone (Proctosol-HC Cream) 1 applic Q12HR TOPIC 12/09/18 21:00 01/01/19 12:59 12/10/18 09:47 Lactobacillus Acidophilus (Culturelle) 1 tab THREE TIMES A DAY ORAL 12/09/18 18:00 12/29/18 17:59 12/10/18 12:26 Magnesium Sulfate 100 ml @ 100 mls/hr Q1H IVPB 12/10/18 10:30 12/10/18 14:29 12/10/18 12:26 Metoprolol Tartrate (Lopressor) 12.5 mg Q12HR NG 12/09/18 21:00 01/08/19 20:59 12/10/18 09:47 Metronidazole 100 ml @ 100 mls/hr Q8HR IVPB 12/09/18 22:00 12/11/18 13:59 12/10/18 05:20 Midazolam HCl (Versed 2mg/2ml vial) 1 mg Q1H PRN IVP SEDATION 12/09/18 17:30 8/8/19 20:29 Pantoprazole (Protonix) 40 mg EVERY 12 HOURS IVP 12/09/18 21:00 01/06/19 20:59 12/10/18 09:49 Sodium Hypochlorite (Dakin's Quarter Strength) 1 applic DAILY TOPIC 12/10/18 09:00 01/03/19 11:59 12/10/18 09:48 Neva Yee M.D. Dec 10, 2018 12:45
--- NOTE | 2018-12-10 12:58 | Hematology/Onc Progress Note ---
Assessment/Plan Assessment/Plan Assessment/Plan # Anemia due to GI Bleed, other causes exist, multifactorial, is s/p lap site, egd done --> Anemia workup has been reviewed, FERRITIN 831 --> No evidence of hemolysis is noted, peripheral smear has been reviewed. --> Hgb goal >7. Transfuse prn. --> Epogen or iron at this time is not particularly indicated --> Medications have been reviewed --> low threshold for gi evaluation in case has occult +--> endoscopy and colo pending --> hgb trend: 7.4-->9.0-->9-->8.6->8.9-->6.1-->9.8--> 7.3->8.8-->9-->9.5-->8.4- ->8->8.5 --> Blood tx: 1 unit 11/19, 11/27, 12/02 # Acute right leg DVT. Heparin drip DCed for rectal bleed. s/p IVC FILTER --> agree with need for this given coagulant contraindication --> appreciate gi and pulm/cc recs --> UPPER EXT DVT noted as well --> have discontinued eliquis given acute GI bleed on 11/27/18, ON HOLD --> consider restart eliquis once h/h remains stable x 1 week # Leukocytosis due to sepsis. --> Monitor for improvement --> urine and blood cultures are both positive, mrsa positive --> IV abx per id --> trend wbc 11.6--> 16-->8 # Thrombocytopenia likely related to infection --> trend plt 111k-->129k-->148k-->174k-->200k --> likely was related to infection --> meds reviewed # Sinus tach due to anemia and sepsis and beta danya withdrawal as was on Metoprolol 12.[address] [facility] --> per cards recs # Hypertension. Hold Metoprolol as BP is 90s. --> clonidine per cards # Respiratory failure now extubated The timing of this note does not necessarily reflect the time of the patient was seen. GREATLY APPRECIATE CONSULTATION. Subjective Constitutional: Denies: no symptoms, chills, fever, malaise, weakness, other HEENT: Denies: no symptoms, eye pain, blurred vision, tearing, double vision, ear pain, ear discharge, nose pain, nose congestion, throat pain, throat swelling, mouth pain, mouth swelling, other Gastrointestinal/Abdominal: Denies: no symptoms, abdomen distended, abdominal pain, black stools, tarry stools, blood in stool, constipated, diarrhea, difficulty swallowing, nausea, poor appetite, poor fluid intake, rectal bleeding , vomiting, other Genitourinary: Denies: no symptoms, burning, discharge, frequency, flank pain, hematuria, incontinence, pain, urgency, other Neurologic/Psychiatric: Denies: no symptoms, anxiety, depressed, emotional problems, headache, numbness, paresthesia, pre-existing deficit, seizure, tingling, tremors, weakness, other Hematologic/Lymphatic: Denies: no symptoms, anemia, easy bleeding, easy bruising, adenopathy, other Allergies: Coded Allergies: No Known Allergies (Unverified , 11/18/18) Subjective Subjective 11/20: Colonoscopy for today. S/P 1 unit prbc. 11/21: Pt awake and nonverbal. Hgb at 7.4, blood tx ordered. 11/23: Pt no acute respiratory distress. CXR Increased bilateral lower lobe atelectasis or airspace consolidation. Underlying pneumonia may be present. Small bilateral pleural effusions. 11/24: no events, no f/c noted, no bleeding, anemia panel reviewed, s/p ivc filter 11/25: No acute events, no signs of distress. DC planning 11/26: no events, no bleeding, noted to have b/l upper ext dvt, acute started on elqiuis 11/27: sbo was ow in the am, transferred to the icu, hgb low requiring transfusion 11/28: Left UE edema > Right UE, s/p blood transfusion 11/27. 11/29:pt is on Venti mask, lethargic. 11/30:pt seen in am, with thick sputum per suctioning. 12/02: no events reported, hgb is better, seen by cards, pulm 12/03: no events, no chills, remains in icu 12/04: is off vanco po, remains in the icu, hgb 9 12/05: no events, no f/c, labs reviwed, on cpap 12/06: no events, bleeding improved, na is better as well 12/08: remains intubated on vent, eyes open 12/09: extubated, doing better, no f/c, no events reported 12/10: no events, no bleeding, no f/c noted Objective Objective Current Medications Medications (Trade) Dose Ordered Sig/Pauline Route PRN Reason Start Time Stop Time Status Last Admin Dose Admin Acetaminophen (Tylenol) 650 mg Q4H PRN GT T>100.5 12/09/18 17:00 12/22/18 16:59 Amikacin Protocol (Amikacin pharmacy to dose) 1 ea DAILY PRN MISC Per rx protocol 12/10/18 09:00 01/07/19 16:44 Amikacin Sulfate 900 mg/Sodium Chloride 113.6 ml @ 113.6 mls/ hr Q24H IV 12/09/18 18:00 12/16/18 17:59 12/09/18 17:36 Chlorhexidine Gluconate (Marycarmen-Hex 2%) 1 applic DAILY@2000 TOPIC 12/09/18 20:00 12/30/18 19:59 12/09/18 20:11 Dextrose (Dextrose 50%) 25 ml Q30M PRN IV Hypoglycemia 12/09/18 17:30 12/18/18 18:17 Dextrose (Dextrose 50%) 50 ml Q30M PRN IV Hypoglycemia 12/09/18 17:30 12/18/18 18:17 Digoxin (Lanoxin) 0.125 mg DAILY NG 12/10/18 09:00 01/08/19 12:44 12/10/18 09:48 Hydralazine HCl (Apresoline) 10 mg Q4H PRN IV Systolic BP greater than 170 12/09/18 17:00 01/03/19 16:59 Hydrocortisone (Proctosol-HC Cream) 1 applic Q12HR TOPIC 12/09/18 21:00 01/01/19 12:59 12/10/18 09:47 Lactobacillus Acidophilus (Culturelle) 1 tab THREE TIMES A DAY ORAL 12/09/18 18:00 12/29/18 17:59 12/10/18 12:26 Magnesium Sulfate 100 ml @ 100 mls/hr Q1H IVPB 12/10/18 10:30 12/10/18 14:29 12/10/18 12:26 Metoprolol Tartrate (Lopressor) 12.5 mg Q12HR NG 12/09/18 21:00 01/08/19 20:59 12/10/18 09:47 Metronidazole 100 ml @ 100 mls/hr Q8HR IVPB 12/09/18 22:00 12/11/18 13:59 12/10/18 05:20 Midazolam HCl (Versed 2mg/2ml vial) 1 mg Q1H PRN IVP SEDATION 12/09/18 17:30 01/01/19 20:29 Pantoprazole (Protonix) 40 mg EVERY 12 HOURS IVP 12/09/18 21:00 01/06/19 20:59 12/10/18 09:49 Sodium Hypochlorite (Dakin's Quarter Strength) 1 applic DAILY TOPIC 12/10/18 09:00 01/03/19 11:59 12/10/18 09:48 Last 24 Hour Vital Signs Date Time Temp Pulse Resp B/P (MAP) Pulse Ox O2 Delivery O2 Flow Rate FiO2 12/10/18 12:00 Nasal Cannula 3.0 Nasal Cannula 4.0 Nasal Cannula 4.0 Nasal Cannula 4.0 12/10/18 12:00 98.5 85 16 131/72 (91) 99 12/10/18 09:48 104 12/10/18 09:47 104 128/69 12/10/18 08:00 Nasal Cannula 3.0 Nasal Cannula 3.0 Nasal Cannula 3.0 Nasal Cannula 3.0 12/10/18 08:00 98.4 104 18 128/69 (88) 94 12/10/18 07:33 106 12/10/18 04:00 102 12/10/18 04:00 98.1 102 20 100/62 (75) 93 12/10/18 04:00 Nasal Cannula 3.0 Nasal Cannula 3.0 Nasal Cannula 3.0 Nasal Cannula 3.0 12/10/18 00:00 Nasal Cannula 3.0 Nasal Cannula 3.0 Nasal Cannula 3.0 Nasal Cannula 3.0 12/10/18 00:00 99.0 83 20 126/70 (88) 97 12/09/18 23:20 105 12/09/18 20:31 2.0 12/09/18 20:19 98 Nasal Cannula 2.0 28 12/09/18 20:14 98 108/68 12/09/18 20:00 104 12/09/18 20:00 Nasal Cannula 3.0 Nasal Cannula 3.0 Nasal Cannula 3.0 Nasal Cannula 2.0 12/09/18 20:00 98.6 98 20 108/68 (81) 100 12/09/18 17:00 98.4 113 23 109/61 (77) 98 12/09/18 16:00 121 12/09/18 16:00 98.2 115 23 101/63 (76) 86 12/09/18 16:00 Nasal Cannula 3.0 Nasal Cannula 3.0 Nasal Cannula 3.0 Nasal Cannula 3.0 12/09/18 15:00 115 20 127/78 (94) 99 12/09/18 14:00 118 22 128/87 (101) 98 12/09/18 13:06 114 12/09/18 13:00 107 19 125/75 (92) 99 12/09/18 12:00 98.4 112 20 124/81 (95) 99 12/09/18 12:00 Nasal Cannula 3.0 Nasal Cannula 3.0 Nasal Cannula 3.0 Nasal Cannula 3.0 12/09/18 12:00 114 12/09/18 11:00 118 20 114/84 (94) 98 12/09/18 10:00 106 19 132/81 (98) 99 12/09/18 09:00 114 18 121/70 (87) 99 12/09/18 08:00 109 12/09/18 08:00 109 17 117/72 (87) 99 12/09/18 08:00 Nasal Cannula 3.0 Nasal Cannula 3.0 Nasal Cannula 3.0 Nasal Cannula 3.0 12/09/18 07:00 115 20 135/94 (108) 99 12/09/18 06:00 117 19 125/85 (98) 99 117 12/09/18 05:00 115 20 119/80 (93) 99 115 12/09/18 04:00 98.4 120 20 126/63 (84) 96 120 12/09/18 04:00 Nasal Cannula 3.0 Nasal Cannula 3.0 Nasal Cannula 3.0 Nasal Cannula 3.0 12/09/18 04:00 124 12/09/18 03:00 99 16 116/72 (87) 98 126 12/09/18 02:00 110 16 121/70 (87) 96 12/09/18 01:00 103 19 116/74 (88) 95 12/09/18 00:00 98.5 101 21 95 12/09/18 00:00 Nasal Cannula 3.0 Nasal Cannula 3.0 Nasal Cannula 3.0 Nasal Cannula 3.0 12/08/18 23:00 100 18 118/81 (93) 97 12/08/18 22:00 101 20 126/73 (90) 99 12/08/18 21:00 98.5 106 21 125/100 (108) 99 12/08/18 20:08 99 Nasal Cannula 2.0 28 12/08/18 20:00 Nasal Cannula 3.0 Nasal Cannula 3.0 Nasal Cannula 3.0 Nasal Cannula 3.0 12/08/18 20:00 103 18 116/65 (82) 100 12/08/18 20:00 99 12/08/18 19:00 104 18 119/74 (89) 100 12/08/18 18:00 101 18 114/70 (85) 99 12/08/18 17:25 121/82 12/08/18 17:00 103 19 121/82 (95) 100 12/08/18 16:00 98.3 104 20 115/64 (81) 99 12/08/18 16:00 Nasal Cannula 3.0 Nasal Cannula 3.0 Nasal Cannula 3.0 Nasal Cannula 3.0 12/08/18 16:00 96 12/08/18 15:00 113 24 125/77 (93) 97 12/08/18 14:00 110 22 104/50 (68) 95 12/08/18 13:00 99 21 110/63 (79) 98 Intake and Output 12/09/18 12/10/18 19:00 07:00 Intake Total 888.933 ml 460.65060 ml Output Total 460 ml 500 ml Balance 428.933 ml -40.69040 ml IV Total 688.933 ml 200.86899 ml Tube Feeding 200 ml 260 ml Output Urine Total 360 ml 480 ml Drainage Total 100 ml 20 ml # Bowel Movements 3 1 Labs Test 12/07/18 20:00 12/08/18 04:20 12/09/18 04:30 12/10/18 03:35 Vancomycin Level Trough 10.1 ug/mL (5.0-12.0) White Blood Count 11.5 K/UL (4.8-10.8) 12.4 K/UL (4.8-10.8) 13.9 K/UL (4.8-10.8) Red Blood Count 2.52 M/UL (4.70-6.10) 2.73 M/UL (4.70-6.10) 2.73 M/UL (4.70-6.10) Hemoglobin 8.0 G/DL (14.2-18.0) 8.4 G/DL (14.2-18.0) 8.5 G/DL (14.2-18.0) Hematocrit 23.8 % (42.0-52.0) 26.1 % (42.0-52.0) 26.3 % (42.0-52.0) Mean Corpuscular Volume 94 FL (80-99) 96 FL (80-99) 96 FL (80-99) Mean Corpuscular Hemoglobin 31.7 PG (27.0-31.0) 31.0 PG (27.0-31.0) 31.1 PG (27.0-31.0) Mean Corpuscular Hemoglobin Concent 33.6 G/DL (32.0-36.0) 32.3 G/DL (32.0-36.0) 32.3 G/DL (32.0-36.0) Red Cell Distribution Width 15.8 % (11.6-14.8) 16.9 % (11.6-14.8) 16.9 % (11.6-14.8) Platelet Count 200 K/UL (150-450) 237 K/UL (150-450) 271 K/UL (150-450) Mean Platelet Volume 6.3 FL (6.5-10.1) 6.0 FL (6.5-10.1) 6.2 FL (6.5-10.1) Neutrophils (%) (Auto) % (45.0-75.0) % (45.0-75.0) % (45.0-75.0) Lymphocytes (%) (Auto) % (20.0-45.0) % (20.0-45.0) % (20.0-45.0) Monocytes (%) (Auto) % (1.0-10.0) % (1.0-10.0) % (1.0-10.0) Eosinophils (%) (Auto) % (0.0-3.0) % (0.0-3.0) % (0.0-3.0) Basophils (%) (Auto) % (0.0-2.0) % (0.0-2.0) % (0.0-2.0) Differential Total Cells Counted 100 100 100 Neutrophils % (Manual) 90 % (45-75) 91 % (45-75) 86 % (45-75) Lymphocytes % (Manual) 4 % (20-45) 6 % (20-45) 8 % (20-45) Monocytes % (Manual) 2 % (1-10) 2 % (1-10) 6 % (1-10) Eosinophils % (Manual) 1 % (0-3) 1 % (0-3) 0 % (0-3) Basophils % (Manual) 2 % (0-2) 0 % (0-2) 0 % (0-2) Band Neutrophils 1 % (0-8) 0 % (0-8) 0 % (0-8) Platelet Estimate Adequate Adequate Adequate Platelet Morphology Normal Normal Normal Hypochromasia 3+ 1+ Anisocytosis 1+ 1+ 1+ Sodium Level 142 MMOL/L (136-145) 145 MMOL/L (136-145) 146 MMOL/L (136-145) Potassium Level 3.1 MMOL/L (3.5-5.1) 2.9 MMOL/L (3.5-5.1) 3.8 MMOL/L (3.5-5.1) Chloride Level 110 MMOL/L (98-107) 111 MMOL/L (98-107) 113 MMOL/L (98-107) Carbon Dioxide Level 23 MMOL/L (21-32) 23 MMOL/L (21-32) 23 MMOL/L (21-32) Anion Gap 9 mmol/L (5-15) 11 mmol/L (5-15) 10 mmol/L (5-15) Blood Urea Nitrogen 9 mg/dL (7-18) 8 mg/dL (7-18) 7 mg/dL (7-18) Creatinine 0.5 MG/DL (0.55-1.30) 0.5 MG/DL (0.55-1.30) 0.4 MG/DL (0.55-1.30) Estimat Glomerular Filtration Rate mL/min (>60) mL/min (>60) mL/min (>60) Glucose Level 83 MG/DL (74-106) 95 MG/DL (74-106) 118 MG/DL (74-106) Calcium Level 7.3 MG/DL (8.5-10.1) 7.4 MG/DL (8.5-10.1) 7.3 MG/DL (8.5-10.1) Phosphorus Level 2.3 MG/DL (2.5-4.9) 3.0 MG/DL (2.5-4.9) 2.5 MG/DL (2.5-4.9) Magnesium Level 1.4 MG/DL (1.8-2.4) 1.5 MG/DL (1.8-2.4) 1.5 MG/DL (1.8-2.4) Total Bilirubin 1.5 MG/DL (0.2-1.0) 1.4 MG/DL (0.2-1.0) 1.5 MG/DL (0.2-1.0) Direct Bilirubin 0.9 MG/DL (0.0-0.3) 0.9 MG/DL (0.0-0.3) 0.8 MG/DL (0.0-0.3) Aspartate Amino Transf (AST/SGOT) 10 U/L (15-37) 11 U/L (15-37) 16 U/L (15-37) Alanine Aminotransferase (ALT/SGPT) 7 U/L (12-78) 7 U/L (12-78) 8 U/L (12-78) Alkaline Phosphatase 65 U/L (46-116) 88 U/L (46-116) 218 U/L (46-116) C-Reactive Protein, Quantitative 13.2 mg/dL (0.00-0.90) 10.9 mg/dL (0.00-0.90) Total Protein 3.7 G/DL (6.4-8.2) 4.1 G/DL (6.4-8.2) 3.7 G/DL (6.4-8.2) Albumin 1.5 G/DL (3.4-5.0) 1.5 G/DL (3.4-5.0) 1.4 G/DL (3.4-5.0) Globulin 2.2 g/dL 2.6 g/dL 2.3 g/dL Albumin/Globulin Ratio 0.7 (1.0-2.7) 0.6 (1.0-2.7) 0.6 (1.0-2.7) [place] Cells 1+ Erythrocyte Sedimentation Rate 44 MM/HR (0-20) Random Amikacin Level 9.0 ug/mL Digoxin Level 0.4 NG/ML (0.5-2.0) Height (Feet): 5 Height (Inches): 5.00 Weight (Pounds): 162 Objective PE General: WD/WN Cardiovascular: normal peripheral pulses, normal rate, regular rhythm Resp: extubated, no f/c, no events, on nc Abdomen: normal bowel sounds, non tender ++ lap site noted Genitourinary/Rectal: normal genital exam, heme negative stool Extremities: normal range of motion Skin Exam: normal pigmentation 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
--- NOTE | 2018-12-10 13:19 | Cardiac Electrophysiology PN ---
Assessment/Plan Assessment/Plan 1. Post op atrial fib with RVR 170s. On Dig 0.125 PEG daily and Lopressor 12.5 GT bid Converted to SR with frequent PAC and PVC. 2. S/P Septic and hemorrhagic shock . Off pressors . Echo EF 55% 3. Acute right leg DVT and Bilateral UE DVT. S/P IVC filter . Off Eliquis for severe anemia and GI bleed 4. Staph aureous bacteremia. On Abx per Dr Yee FLORINA pending consent and patient stability 5. Parkinsonism. 6. COPD. 7. UTI. 8. Severe anemia and rectal bleed. S/P Colonoscopy on 11/20/18 and 11/29/18 and transfusion No obvious source. S/P EGD by Dr Dallas and Anterior duodenostomy for control of large posterior duodenal ulcer hemorrhage by Dr Eugene on 12/02/18 9. Seizure disorder. 10. S/P PEG 11. Respiratory failure, extubated 12/08/18 EHSAN RN Subjective Subjective transferred out of ICU in SR. In and out of atrial fib Objective Last 24 Hour Vital Signs Date Time Temp Pulse Resp B/P (MAP) Pulse Ox O2 Delivery O2 Flow Rate FiO2 12/10/18 12:00 Nasal Cannula 3.0 Nasal Cannula 4.0 Nasal Cannula 4.0 Nasal Cannula 4.0 12/10/18 12:00 98.5 85 16 131/72 (91) 99 12/10/18 09:48 104 12/10/18 09:47 104 128/69 12/10/18 08:00 Nasal Cannula 3.0 Nasal Cannula 3.0 Nasal Cannula 3.0 Nasal Cannula 3.0 12/10/18 08:00 98.4 104 18 128/69 (88) 94 12/10/18 07:33 106 12/10/18 04:00 102 12/10/18 04:00 98.1 102 20 100/62 (75) 93 12/10/18 04:00 Nasal Cannula 3.0 Nasal Cannula 3.0 Nasal Cannula 3.0 Nasal Cannula 3.0 12/10/18 00:00 Nasal Cannula 3.0 Nasal Cannula 3.0 Nasal Cannula 3.0 Nasal Cannula 3.0 12/10/18 00:00 99.0 83 20 126/70 (88) 97 12/09/18 23:20 105 12/09/18 20:31 2.0 12/09/18 20:19 98 Nasal Cannula 2.0 28 12/09/18 20:14 98 108/68 12/09/18 20:00 104 12/09/18 20:00 Nasal Cannula 3.0 Nasal Cannula 3.0 Nasal Cannula 3.0 Nasal Cannula 2.0 12/09/18 20:00 98.6 98 20 108/68 (81) 100 12/09/18 17:00 98.4 113 23 109/61 (77) 98 12/09/18 16:00 121 12/09/18 16:00 98.2 115 23 101/63 (76) 86 12/09/18 16:00 Nasal Cannula 3.0 Nasal Cannula 3.0 Nasal Cannula 3.0 Nasal Cannula 3.0 12/09/18 15:00 115 20 127/78 (94) 99 12/09/18 14:00 118 22 128/87 (101) 98 Intake and Output 12/09/18 12/10/18 19:00 07:00 Intake Total 888.933 ml 460.66154 ml Output Total 460 ml 500 ml Balance 428.933 ml -40.51485 ml IV Total 688.933 ml 200.57387 ml Tube Feeding 200 ml 260 ml Output Urine Total 360 ml 480 ml Drainage Total 100 ml 20 ml # Bowel Movements 3 1 Laboratory Tests Test 12/10/18 03:35 White Blood Count 13.9 K/UL (4.8-10.8) H Red Blood Count 2.73 M/UL (4.70-6.10) L Hemoglobin 8.5 G/DL (14.2-18.0) L Hematocrit 26.3 % (42.0-52.0) L Mean Corpuscular Volume 96 FL (80-99) Mean Corpuscular Hemoglobin 31.1 PG (27.0-31.0) H Mean Corpuscular Hemoglobin Concent 32.3 G/DL (32.0-36.0) Red Cell Distribution Width 16.9 % (11.6-14.8) H Platelet Count 271 K/UL (150-450) Mean Platelet Volume 6.2 FL (6.5-10.1) L Neutrophils (%) (Auto) % (45.0-75.0) Lymphocytes (%) (Auto) % (20.0-45.0) Monocytes (%) (Auto) % (1.0-10.0) Eosinophils (%) (Auto) % (0.0-3.0) Basophils (%) (Auto) % (0.0-2.0) Differential Total Cells Counted 100 Neutrophils % (Manual) 86 % (45-75) H Lymphocytes % (Manual) 8 % (20-45) L Monocytes % (Manual) 6 % (1-10) Eosinophils % (Manual) 0 % (0-3) Basophils % (Manual) 0 % (0-2) Band Neutrophils 0 % (0-8) Platelet Estimate Adequate Platelet Morphology Normal Hypochromasia 1+ Anisocytosis 1+ Sodium Level 146 MMOL/L (136-145) H Potassium Level 3.8 MMOL/L (3.5-5.1) Chloride Level 113 MMOL/L (98-107) H Carbon Dioxide Level 23 MMOL/L (21-32) Anion Gap 10 mmol/L (5-15) Blood Urea Nitrogen 7 mg/dL (7-18) Creatinine 0.4 MG/DL (0.55-1.30) L Estimat Glomerular Filtration Rate mL/min (>60) Glucose Level 118 MG/DL (74-106) H Calcium Level 7.3 MG/DL (8.5-10.1) L Phosphorus Level 2.5 MG/DL (2.5-4.9) Magnesium Level 1.5 MG/DL (1.8-2.4) L Total Bilirubin 1.5 MG/DL (0.2-1.0) H Direct Bilirubin 0.8 MG/DL (0.0-0.3) H Aspartate Amino Transf (AST/SGOT) 16 U/L (15-37) Alanine Aminotransferase (ALT/SGPT) 8 U/L (12-78) L Alkaline Phosphatase 218 U/L (46-116) H Total Protein 3.7 G/DL (6.4-8.2) L Albumin 1.4 G/DL (3.4-5.0) L Globulin 2.3 g/dL Albumin/Globulin Ratio 0.6 (1.0-2.7) L Digoxin Level 0.4 NG/ML (0.5-2.0) L Objective HEAD AND NECK: No JVD LUNGS: Decreased breath sounds. CARDIOVASCULAR: Regular S1 and S2 with no gallop . ABDOMEN: Soft. G-tube intact. S/P Laparatomy EXTREMITIES: Upper extremity and LE edema. Earl Washington MD Dec 10, 2018 13:19
[2018-12-10] MEDS ORDERED: NS 275ml ONE ×2 (15:34→15:39)
--- NOTE | 2018-12-10 15:39 | Nephrology Progress Note ---
Assessment/Plan Problem List: (1) Hyponatremia Assessment: Na higher (2) UTI (urinary tract infection) (3) Anemia, chronic disease (4) Alzheimer's dementia (5) Parkinson disease (6) C. difficile colitis (7) Perforated duodenal ulcer Assessment Low Na corrected GI bleed transfused other conditions Pneumonia UTI, has grewal bacteremia sacral decub dementia HTN Sz disorder Parkinsons severe Anemia Plan remains NPO Post OP care ( Laparatomy Op 12/02/18) Trial Albumin and Lasix to diurese PRN K and Mag and Phos supplement as needed hemodynamic support Albumin bolus and transfusion for low BP as needed stop HypoTonic IV solution start maintenence IV fluid Urine studies Transfusion as needed Per orders roberto carlos khalil Subjective ROS Limited/Unobtainable: No Constitutional: Reports: malaise Objective Objective Last 24 Hour Vital Signs Date Time Temp Pulse Resp B/P (MAP) Pulse Ox O2 Delivery O2 Flow Rate FiO2 12/10/18 12:00 90 12/10/18 12:00 Nasal Cannula 3.0 Nasal Cannula 4.0 Nasal Cannula 4.0 Nasal Cannula 4.0 12/10/18 12:00 98.5 85 16 131/72 (91) 99 12/10/18 09:48 104 12/10/18 09:47 104 128/69 12/10/18 08:00 Nasal Cannula 3.0 Nasal Cannula 3.0 Nasal Cannula 3.0 Nasal Cannula 3.0 12/10/18 08:00 98.4 104 18 128/69 (88) 94 12/10/18 07:33 106 12/10/18 04:00 102 12/10/18 04:00 98.1 102 20 100/62 (75) 93 12/10/18 04:00 Nasal Cannula 3.0 Nasal Cannula 3.0 Nasal Cannula 3.0 Nasal Cannula 3.0 12/10/18 00:00 Nasal Cannula 3.0 Nasal Cannula 3.0 Nasal Cannula 3.0 Nasal Cannula 3.0 12/10/18 00:00 99.0 83 20 126/70 (88) 97 12/09/18 23:20 105 12/09/18 20:31 2.0 12/09/18 20:19 98 Nasal Cannula 2.0 28 12/09/18 20:14 98 108/68 12/09/18 20:00 104 12/09/18 20:00 Nasal Cannula 3.0 Nasal Cannula 3.0 Nasal Cannula 3.0 Nasal Cannula 2.0 12/09/18 20:00 98.6 98 20 108/68 (81) 100 12/09/18 17:00 98.4 113 23 109/61 (77) 98 12/09/18 16:00 121 12/09/18 16:00 98.2 115 23 101/63 (76) 86 12/09/18 16:00 Nasal Cannula 3.0 Nasal Cannula 3.0 Nasal Cannula 3.0 Nasal Cannula 3.0 Intake and Output 12/09/18 12/10/18 19:00 07:00 Intake Total 888.933 ml 460.63396 ml Output Total 460 ml 500 ml Balance 428.933 ml -40.78229 ml IV Total 688.933 ml 200.92345 ml Tube Feeding 200 ml 260 ml Output Urine Total 360 ml 480 ml Drainage Total 100 ml 20 ml # Bowel Movements 3 1 Laboratory Tests 12/10/18 03:35: White Blood Count 13.9H, Red Blood Count 2.73L, Hemoglobin 8.5L, Hematocrit 26.3L, Mean Corpuscular Volume 96, Mean Corpuscular Hemoglobin 31.1H, Mean Corpuscular Hemoglobin Concent 32.3, Red Cell Distribution Width 16.9H, Platelet Count 271, Mean Platelet Volume 6.2L, Neutrophils (%) (Auto) , Lymphocytes (%) (Auto) , Monocytes (%) (Auto) , Eosinophils (%) (Auto) , Basophils (%) (Auto) , Differential Total Cells Counted 100, Neutrophils % ( Manual) 86H, Lymphocytes % (Manual) 8L, Monocytes % (Manual) 6, Eosinophils % ( Manual) 0, Basophils % (Manual) 0, Band Neutrophils 0, Platelet Estimate Adequate, Platelet Morphology Normal, Hypochromasia 1+, Anisocytosis 1+, Sodium Level 146H, Potassium Level 3.8, Chloride Level 113H, Carbon Dioxide Level 23, Anion Gap 10, Blood Urea Nitrogen 7, Creatinine 0.4L, Estimat Glomerular Filtration Rate , Glucose Level 118H, Calcium Level 7.3L, Phosphorus Level 2.5, Magnesium Level 1.5L, Total Bilirubin 1.5H, Direct Bilirubin 0.8H, Aspartate Amino Transf (AST/SGOT) 16, Alanine Aminotransferase (ALT/SGPT) 8L, Alkaline Phosphatase 218H, Total Protein 3.7L, Albumin 1.4L, Globulin 2.3, Albumin/ Globulin Ratio 0.6L, Digoxin Level 0.4L Height (Feet): 5 Height (Inches): 5.00 Weight (Pounds): 162 General Appearance: no apparent distress Cardiovascular: tachycardia Respiratory/Chest: decreased breath sounds Abdomen: soft Objective no change Kendall Trinidad MD Dec 10, 2018 15:39
--- NOTE | 2018-12-10 15:47 | General Progress Note ---
Progress Note Progress Note tolerating tube feeds afebrile, HD stable leukocytosis 13k abd exam stable elizabeth drain with dark serosang -cont tube feeds -trend labs -cont abx will follow with recs thank you Andrew Eugene Dec 10, 2018 15:47
[2018-12-10 16:00] VITALS: BP 138/64
[2018-12-10] MEDS: Amikacin 900 MG in NS 110 ML IV SCH (17:37)
--- NOTE | 2018-12-10 19:18 | NUR ---
HAND-OFF: Report given to Kyler Rodriguez RN. Pt in stable condition.
--- NOTE | 2018-12-10 19:19 | NUR ---
NURSE NOTES: Received patient from MONA Hodges with no signs of acute distress, VSS, and on 3L O2 with NC. 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 Patient has a right subclavian triple lumen central line running TKO. All extremities edematous with bilateral weeping of upper extremities. Wounds noted including midline abdominal surgical sight, with no signs of infection. ANGIE drain on right a upper abdomen with brown liquid noted in drain. Bed at its lowest position, call light in reach, X3 bed rails up and padded side rails implemented. Will continue to monitor.
[2018-12-10] MEDS: Dyna-Hex 2% Top Sol 2oz TOPIC SCH (19:34)
[2018-12-10 20:00] VITALS: BP 90/60
[2018-12-11] VITALS: BP 98/55
--- NOTE | 2018-12-11 02:40 | NUR ---
NURSE NOTES: Patient's hearth rate ranged from 130-180 within the last 5 minutes and continues to stay elevated. Patient shows no signs of distress with a BP of 98/55, O2 saturation 97, temp. 98.4 degrees, RR 22 and is in a semi fowlers position. Patient's eyes are open and tracking. of Dr. Watters and Padmini have been called. No reply as of yet. Charge nurse is aware.
[2018-12-11 03:59] VITALS: BP 106/57
--- NOTE | 2018-12-11 04:23 | NUR ---
NURSE NOTES: After [address] Carrasquillo and Padmini I have not received a reply back. Adilene Park was paged through his message service at [phone] and w are patiently waiting for his reply. Charge nurse aware.
[2018-12-11] MEDS: Metoprolol Tartrate 12.5mg TAB NG SCH (04:47)
--- NOTE | 2018-12-11 04:57 | NUR ---
NURSE NOTES: Administered 0900 Lopressor early to alleviate the elevated heart rate. Charge nurse and pharmacist aware. Peak heart rate reached 190 bpm. Patient shows no signs of distress throughout the shift.
[2018-12-11 04:58] LABS: BASOPHILS % (AUTO) 0.6 % (0.0-2.0); EOSINOPHILS % (AUTO) 0.6 % (0.0-3.0); HEMATOCRIT 26.7 % (42.0-52.0); HEMOGLOBIN 8.6 G/DL (14.2-18.0); LYMPHOCYTES % (AUTO) 7.4 % (20.0-45.0); MEAN CORPUSCULAR VOLUME 97 FL (80-99); MONOCYTES % (AUTO) 7.2 % (1.0-10.0); NEUTROPHILS % (AUTO) 84.2 % (45.0-75.0); PLATELET COUNT 252 K/UL (150-450); RED BLOOD COUNT 2.75 M/UL (4.70-6.10); RED CELL DISTRIBUTION WIDTH 16.6 % (11.6-14.8)
[2018-12-11 05:21] LABS: ANION GAP 11 mmol/L (5-15); BLOOD UREA NITROGEN 6 mg/dL (7-18); CALCIUM 7.5 MG/DL (8.5-10.1); CARBON DIOXIDE 21 MMOL/L (21-32); CHLORIDE 113 MMOL/L (98-107); CREATININE 0.4 MG/DL (0.55-1.30); POTASSIUM 3.5 MMOL/L (3.5-5.1); SODIUM 145 MMOL/L (136-145)
[2018-12-11 05:56] LABS: PHOSPHORUS 2.3 MG/DL (2.5-4.9)
--- NOTE | 2018-12-11 06:10 | NUR ---
NURSE NOTES: Dr. Washington ordered Stat ECG at [address] Carrasquillo ordered Cardizem 10mg IV 0643. PT hr is currently 103. Change nurse notified.
--- NOTE | 2018-12-11 07:20 | NUR ---
HAND-OFF: Report given to MONA Kearney.
--- NOTE | 2018-12-11 07:36 | NUR ---
NURSE NOTES: Report received from MONA Chávez. Observed patient in bed sleeping. Open eyes with shaking but non-verbal. No s/s of pain at this time. On 4L of oxygen via N/C with no distress noted. TLC noted in right subclavian intact and patent. GT site intact with ongoing feeding. HOB elevated. No residual noted. F/C intact and draining well. Bed in lowest position. Call light within reach. Will continue to monitor.
[2018-12-11 08:00] VITALS: BP 99/50
[2018-12-11] MEDS ORDERED: dilTIAZem HCl 25mg/5ml Inj IVP SCH (08:00)
[2018-12-11] MEDS ORDERED: NS 250 ML IVPB SCH (08:00)
[2018-12-11] MEDS: Lactobacillus-GG tablet ORAL SCH ×3 (08:18→17:13)
[2018-12-11] MEDS: Digoxin 0.125mg tab NG SCH (08:18)
[2018-12-11] MEDS: Pantoprazole Inj IVP SCH ×2 (08:18→20:33)
[2018-12-11] MEDS: Hydrocortisone 2.5% Cream - 30gm TOPIC SCH ×2 (08:19→20:33)
[2018-12-11] MEDS: Dakin's 0.125% Soln (Quarter Strength) 16oz TOPIC SCH (08:19)
--- NOTE | 2018-12-11 08:45 | NUR ---
NURSE NOTES: Informed Dr. Trinidad regarding low BP and elevated HR with new order. Order carried out.
--- NOTE | 2018-12-11 08:47 | NUR ---
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
[2018-12-11] MEDS ORDERED: Potassium Phosphate 20 MM in NS 275 ML IV ONE (09:00)
--- NOTE | 2018-12-11 09:33 | Hematology/Onc Progress Note ---
Assessment/Plan Assessment/Plan Assessment/Plan # Anemia due to GI Bleed, other causes exist, multifactorial, is s/p lap site, egd done --> Anemia workup has been reviewed, FERRITIN 831 --> No evidence of hemolysis is noted, peripheral smear has been reviewed. --> Hgb goal >7. Transfuse prn. --> Epogen or iron at this time is not particularly indicated --> Medications have been reviewed --> low threshold for gi evaluation in case has occult +--> endoscopy and colo pending --> hgb trend: 7.4-->9.0-->9-->8.6->8.9-->6.1-->9.8--> 7.3->8.8-->9-->9.5-->8.4- ->8->8.5 --> Blood tx: 1 unit 11/19, 11/27, 12/02 # Acute right leg DVT. Heparin drip DCed for rectal bleed. s/p IVC FILTER --> agree with need for this given coagulant contraindication --> appreciate gi and pulm/cc recs --> UPPER EXT DVT noted as well --> have discontinued eliquis given acute GI bleed on 11/27/18, ON HOLD --> consider restart eliquis once h/h remains stable x 1 week # Leukocytosis due to sepsis. --> Monitor for improvement --> urine and blood cultures are both positive, mrsa positive --> IV abx per id --> trend wbc 11.6--> 16-->8 # Thrombocytopenia likely related to infection --> trend plt 111k-->129k-->148k-->174k-->200k-->252k --> likely was related to infection --> meds reviewed # Sinus tach due to anemia and sepsis and beta danya withdrawal as was on Metoprolol 12.5 bid at [facility] --> per cards recs # Hypertension. Hold Metoprolol as BP is 90s. --> clonidine per cards # Respiratory failure now extubated The timing of this note does not necessarily reflect the time of the patient was seen. GREATLY APPRECIATE CONSULTATION. Subjective HEENT: Denies: no symptoms, eye pain, blurred vision, tearing, double vision, ear pain, ear discharge, nose pain, nose congestion, throat pain, throat swelling, mouth pain, mouth swelling, other Cardiovascular: Denies: no symptoms, chest pain, edema, irregular heart rate, lightheadedness, palpitations, syncope, other Respiratory: Denies: no symptoms, cough, shortness of breath, SOB with excertion, SOB at rest, sputum, wheezing, other Gastrointestinal/Abdominal: Denies: no symptoms, abdomen distended, abdominal pain, black stools, tarry stools, blood in stool, constipated, diarrhea, difficulty swallowing, nausea, poor appetite, poor fluid intake, rectal bleeding , vomiting, other Genitourinary: Denies: no symptoms, burning, discharge, frequency, flank pain, hematuria, incontinence, pain, urgency, other Neurologic/Psychiatric: Denies: no symptoms, anxiety, depressed, emotional problems, headache, numbness, paresthesia, pre-existing deficit, seizure, tingling, tremors, weakness, other Endocrine: Denies: no symptoms, excessive sweating, flushing, intolerance to cold, intolerance to heat, increased hunger, increased thirst, increased urine, unexplained weight gain, unexplained weight loss, other Hematologic/Lymphatic: Denies: no symptoms, anemia, easy bleeding, easy bruising, adenopathy, other Allergies: Coded Allergies: No Known Allergies (Unverified , 11/18/18) Subjective Subjective 11/20: Colonoscopy for today. S/P 1 unit prbc. 11/21: Pt awake and nonverbal. Hgb at 7.4, blood tx ordered. 11/23: Pt no acute respiratory distress. CXR Increased bilateral lower lobe atelectasis or airspace consolidation. Underlying pneumonia may be present. Small bilateral pleural effusions. 11/24: no events, no f/c noted, no bleeding, anemia panel reviewed, s/p ivc filter 11/25: No acute events, no signs of distress. DC planning 11/26: no events, no bleeding, noted to have b/l upper ext dvt, acute started on elqiuis 11/27: sbo was ow in the am, transferred to the icu, hgb low requiring transfusion 11/28: Left UE edema > Right UE, s/p blood transfusion 11/27. 11/29:pt is on Venti mask, lethargic. 11/30:pt seen in am, with thick sputum per suctioning. 12/02: no events reported, hgb is better, seen by cards pulm 12/03: no events, no chills, remains in icu 12/04: is off vanco po, remains in the icu, hgb 9 12/05: no events, no f/c, labs reviwed, on cpap 12/06: no events, bleeding improved, na is better as well 12/08: remains intubated on vent, eyes open 12/09: extubated, doing better, no f/c, no events reported 12/10: no events, no bleeding, no f/c noted 12/11: gtube feeds as per gi, no f/c, no bleeding Objective Objective Current Medications Medications (Trade) Dose Ordered Sig/Pauline Route PRN Reason Start Time Stop Time Status Last Admin Dose Admin Acetaminophen (Tylenol) 650 mg Q4H PRN GT T>100.5 12/09/18 17:00 12/22/18 16:59 Amikacin Protocol (Amikacin pharmacy to dose) 1 ea DAILY PRN MISC Per rx protocol 12/10/18 09:00 01/07/19 16:44 Amikacin Sulfate 900 mg/Sodium Chloride 113.6 ml @ 113.6 mls/ hr Q24H IV 12/09/18 18:00 12/16/18 17:59 12/10/18 17:37 Chlorhexidine Gluconate (Marycarmen-Hex 2%) 1 applic DAILY@2000 TOPIC 12/09/18 20:00 12/30/18 19:59 12/10/18 19:34 Dextrose (Dextrose 50%) 25 ml Q30M PRN IV Hypoglycemia 12/09/18 17:30 12/18/18 18:17 Dextrose (Dextrose 50%) 50 ml Q30M PRN IV Hypoglycemia 12/09/18 17:30 12/18/18 18:17 Digoxin (Lanoxin) 0.125 mg DAILY NG 12/10/18 09:00 01/08/19 12:44 12/11/18 08:18 Hydralazine HCl (Apresoline) 10 mg Q4H PRN IV Systolic BP greater than 170 12/09/18 17:00 01/03/19 16:59 Hydrocortisone (Proctosol-HC Cream) 1 applic Q12HR TOPIC 12/09/18 21:00 01/01/19 12:59 12/11/18 08:19 Lactobacillus Acidophilus (Culturelle) 1 tab THREE TIMES A DAY ORAL 12/09/18 18:00 12/29/18 17:59 12/11/18 08:18 Metoprolol Tartrate (Lopressor) 12.5 mg Q12HR NG 12/09/18 21:00 01/08/19 20:59 12/11/18 04:47 Metronidazole 100 ml @ 100 mls/hr Q8HR IVPB 12/09/18 22:00 12/11/18 13:59 12/11/18 05:15 Midazolam HCl (Versed 2mg/2ml vial) 1 mg Q1H PRN IVP SEDATION 12/09/18 17:30 01/01/19 20:29 Pantoprazole (Protonix) 40 mg EVERY 12 HOURS IVP 12/09/18 21:00 01/06/19 20:59 12/11/18 08:18 Potassium Phosphate 20 mm/ Sodium Chloride 281.6667 ml @ 46.944 m... ONCE ONCE IV 12/11/18 09:00 12/11/18 14:59 Sodium Hypochlorite (Dakin's Quarter Strength) 1 applic DAILY TOPIC 12/10/18 09:00 01/03/19 11:59 12/11/18 08:19 Last 24 Hour Vital Signs Date Time Temp Pulse Resp B/P (MAP) Pulse Ox O2 Delivery O2 Flow Rate FiO2 12/11/18 08:18 116 12/11/18 08:00 98.2 91 24 99/50 (66) 95 12/11/18 08:00 Nasal Cannula 4.0 Nasal Cannula 4.0 Nasal Cannula 4.0 Nasal Cannula 4.0 12/11/18 07:51 146 101/47 12/11/18 04:47 146 101/47 12/11/18 04:00 Nasal Cannula 4.0 Nasal Cannula 4.0 Nasal Cannula 4.0 Nasal Cannula 4.0 12/11/18 03:59 98.8 113 24 106/57 (73) 95 12/11/18 03:46 132 12/11/18 00:00 98.4 100 24 98/55 (69) 98 12/11/18 00:00 Nasal Cannula 4.0 Nasal Cannula 4.0 Nasal Cannula 4.0 Nasal Cannula 4.0 12/10/18 23:19 124 12/10/18 20:56 100 90/60 12/10/18 20:42 97 Nasal Cannula 2.0 28 12/10/18 20:00 97.0 100 20 90/60 (70) 96 12/10/18 20:00 106 12/10/18 20:00 Nasal Cannula 4.0 Nasal Cannula 4.0 Nasal Cannula 4.0 Nasal Cannula 4.0 12/10/18 17:51 Nasal Cannula 3.0 Nasal Cannula 3.0 Nasal Cannula 3.0 Nasal Cannula 3.0 12/10/18 16:00 106 12/10/18 16:00 97.9 89 18 138/64 (88) 96 12/10/18 16:00 Nasal Cannula 3.0 Nasal Cannula 4.0 Nasal Cannula 4.0 Nasal Cannula 4.0 12/10/18 12:00 90 12/10/18 12:00 Nasal Cannula 3.0 Nasal Cannula 4.0 Nasal Cannula 4.0 Nasal Cannula 4.0 12/10/18 12:00 98.5 85 16 131/72 (91) 99 12/10/18 09:48 104 12/10/18 09:47 104 128/69 12/10/18 08:00 Nasal Cannula 3.0 Nasal Cannula 3.0 Nasal Cannula 3.0 Nasal Cannula 3.0 12/10/18 08:00 98.4 104 18 128/69 (88) 94 12/10/18 07:33 106 12/10/18 04:00 102 12/10/18 04:00 98.1 102 20 100/62 (75) 93 12/10/18 04:00 Nasal Cannula 3.0 Nasal Cannula 3.0 Nasal Cannula 3.0 Nasal Cannula 3.0 12/10/18 00:00 Nasal Cannula 3.0 Nasal Cannula 3.0 Nasal Cannula 3.0 Nasal Cannula 3.0 12/10/18 00:00 99.0 83 20 126/70 (88) 97 12/09/18 23:20 105 12/09/18 20:31 2.0 12/09/18 20:19 98 Nasal Cannula 2.0 28 12/09/18 20:14 98 108/68 12/09/18 20:00 104 12/09/18 20:00 Nasal Cannula 3.0 Nasal Cannula 3.0 Nasal Cannula 3.0 Nasal Cannula 2.0 12/09/18 20:00 98.6 98 20 108/68 (81) 100 12/09/18 17:00 98.4 113 23 109/61 (77) 98 12/09/18 16:00 121 12/09/18 16:00 98.2 115 23 101/63 (76) 86 12/09/18 16:00 Nasal Cannula 3.0 Nasal Cannula 3.0 Nasal Cannula 3.0 Nasal Cannula 3.0 12/09/18 15:00 115 20 127/78 (94) 99 12/09/18 14:00 118 22 128/87 (101) 98 12/09/18 13:06 114 12/09/18 13:00 107 19 125/75 (92) 99 12/09/18 12:00 98.4 112 20 124/81 (95) 99 12/09/18 12:00 Nasal Cannula 3.0 Nasal Cannula 3.0 Nasal Cannula 3.0 Nasal Cannula 3.0 12/09/18 12:00 114 12/09/18 11:00 118 20 114/84 (94) 98 12/09/18 10:00 106 19 132/81 (98) 99 Intake and Output 12/10/18 12/11/18 19:00 07:00 Intake Total 1003.6 ml 490 ml Output Total 380 ml 275 ml Balance 623.6 ml 215 ml Free Water 150 ml 50 ml IV Total 613.6 ml 200 ml Tube Feeding 240 ml 240 ml Output Urine Total 330 ml 200 ml Drainage Total 50 ml 75 ml # Voids 1 # Bowel Movements 3 Labs Test 12/09/18 04:30 12/10/18 03:35 12/11/18 03:25 White Blood Count 12.4 K/UL (4.8-10.8) 13.9 K/UL (4.8-10.8) 11.0 K/UL (4.8-10.8) Red Blood Count 2.73 M/UL (4.70-6.10) 2.73 M/UL (4.70-6.10) 2.75 M/UL (4.70-6.10) Hemoglobin 8.4 G/DL (14.2-18.0) 8.5 G/DL (14.2-18.0) 8.6 G/DL (14.2-18.0) Hematocrit 26.1 % (42.0-52.0) 26.3 % (42.0-52.0) 26.7 % (42.0-52.0) Mean Corpuscular Volume 96 FL (80-99) 96 FL (80-99) 97 FL (80-99) Mean Corpuscular Hemoglobin 31.0 PG (27.0-31.0) 31.1 PG (27.0-31.0) 31.4 PG (27.0-31.0) Mean Corpuscular Hemoglobin Concent 32.3 G/DL (32.0-36.0) 32.3 G/DL (32.0-36.0) 32.3 G/DL (32.0-36.0) Red Cell Distribution Width 16.9 % (11.6-14.8) 16.9 % (11.6-14.8) 16.6 % (11.6-14.8) Platelet Count 237 K/UL (150-450) 271 K/UL (150-450) 252 K/UL (150-450) Mean Platelet Volume 6.0 FL (6.5-10.1) 6.2 FL (6.5-10.1) 5.9 FL (6.5-10.1) Neutrophils (%) (Auto) % (45.0-75.0) % (45.0-75.0) 84.2 % (45.0-75.0) Lymphocytes (%) (Auto) % (20.0-45.0) % (20.0-45.0) 7.4 % (20.0-45.0) Monocytes (%) (Auto) % (1.0-10.0) % (1.0-10.0) 7.2 % (1.0-10.0) Eosinophils (%) (Auto) % (0.0-3.0) % (0.0-3.0) 0.6 % (0.0-3.0) Basophils (%) (Auto) % (0.0-2.0) % (0.0-2.0) 0.6 % (0.0-2.0) Differential Total Cells Counted 100 100 Neutrophils % (Manual) 91 % (45-75) 86 % (45-75) Lymphocytes % (Manual) 6 % (20-45) 8 % (20-45) Monocytes % (Manual) 2 % (1-10) 6 % (1-10) Eosinophils % (Manual) 1 % (0-3) 0 % (0-3) Basophils % (Manual) 0 % (0-2) 0 % (0-2) Band Neutrophils 0 % (0-8) 0 % (0-8) Platelet Estimate Adequate Adequate Platelet Morphology Normal Normal Anisocytosis 1+ 1+ [place] Cells 1+ Erythrocyte Sedimentation Rate 44 MM/HR (0-20) Sodium Level 145 MMOL/L (136-145) 146 MMOL/L (136-145) 145 MMOL/L (136-145) Potassium Level 2.9 MMOL/L (3.5-5.1) 3.8 MMOL/L (3.5-5.1) 3.5 MMOL/L (3.5-5.1) Chloride Level 111 MMOL/L (98-107) 113 MMOL/L (98-107) 113 MMOL/L (98-107) Carbon Dioxide Level 23 MMOL/L (21-32) 23 MMOL/L (21-32) 21 MMOL/L (21-32) Anion Gap 11 mmol/L (5-15) 10 mmol/L (5-15) 11 mmol/L (5-15) Blood Urea Nitrogen 8 mg/dL (7-18) 7 mg/dL (7-18) 6 mg/dL (7-18) Creatinine 0.5 MG/DL (0.55-1.30) 0.4 MG/DL (0.55-1.30) 0.4 MG/DL (0.55-1.30) Estimat Glomerular Filtration Rate mL/min (>60) mL/min (>60) mL/min (>60) Glucose Level 95 MG/DL (74-106) 118 MG/DL (74-106) 142 MG/DL (74-106) Calcium Level 7.4 MG/DL (8.5-10.1) 7.3 MG/DL (8.5-10.1) 7.5 MG/DL (8.5-10.1) Phosphorus Level 3.0 MG/DL (2.5-4.9) 2.5 MG/DL (2.5-4.9) 2.3 MG/DL (2.5-4.9) Magnesium Level 1.5 MG/DL (1.8-2.4) 1.5 MG/DL (1.8-2.4) 1.8 MG/DL (1.8-2.4) Total Bilirubin 1.4 MG/DL (0.2-1.0) 1.5 MG/DL (0.2-1.0) Direct Bilirubin 0.9 MG/DL (0.0-0.3) 0.8 MG/DL (0.0-0.3) Aspartate Amino Transf (AST/SGOT) 11 U/L (15-37) 16 U/L (15-37) Alanine Aminotransferase (ALT/SGPT) 7 U/L (12-78) 8 U/L (12-78) Alkaline Phosphatase 88 U/L (46-116) 218 U/L (46-116) C-Reactive Protein, Quantitative 10.9 mg/dL (0.00-0.90) Total Protein 4.1 G/DL (6.4-8.2) 3.7 G/DL (6.4-8.2) Albumin 1.5 G/DL (3.4-5.0) 1.4 G/DL (3.4-5.0) Globulin 2.6 g/dL 2.3 g/dL Albumin/Globulin Ratio 0.6 (1.0-2.7) 0.6 (1.0-2.7) Random Amikacin Level 9.0 ug/mL Hypochromasia 1+ Digoxin Level 0.4 NG/ML (0.5-2.0) Height (Feet): 5 Height (Inches): 5.00 Weight (Pounds): 167 Objective PE General: WD/WN Cardiovascular: normal peripheral pulses, normal rate, regular rhythm Resp: extubated, no f/c, no events, on nc Abdomen: normal bowel sounds, non tender ++ lap site noted Genitourinary/Rectal: normal genital exam, heme negative stool Extremities: normal range of motion Skin Exam: normal pigmentation 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
--- NOTE | 2018-12-11 09:36 | NUR ---
DISCHARGE PLANNING FAXED PATIENT REFERRAL TO [facility] AND THEY WILL ACCEPT BACK PATIENT WHEN READY FOR DISCHARGE.
--- NOTE | 2018-12-11 11:47 | GI Progress Note ---
Assessment/Plan Problems: (1) Parkinson disease ICD Codes: G20 - Parkinson's disease SNOMED: 00692427 (2) Alzheimer's dementia ICD Codes: G30.9 - Alzheimer's disease, unspecified; F02.80 - Dementia in other diseases classified elsewhere without behavioral disturbance SNOMED: 41769809 (3) Feeding by G-tube ICD Codes: Z93.1 - Gastrostomy status SNOMED: 962053549, 336747722, 456914145 (4) Anemia, chronic disease ICD Codes: D63.8 - Anemia in other chronic diseases classified elsewhere SNOMED: 588935276, 069260981 Status: progressing, unchanged Status Narrative Discussed with Dr. Dallas. Assessment/Plan Duodenal ulcer, s/p SURG TF per surgery iv ppi stable H&H will fu may need TPN if prolonged NPO status anticipated The patient was seen and examined at bedside and all new and available data was reviewed in the patients chart. I agree with the above findings, impression and plan. (Patient seen earlier today. Signature stamp does not reflect patient encounter time.). - Deacon Dallas MD Subjective Subjective limited Objective Last 24 Hour Vital Signs Date Time Temp Pulse Resp B/P (MAP) Pulse Ox O2 Delivery O2 Flow Rate FiO2 12/11/18 08:18 116 12/11/18 08:00 98.2 91 24 99/50 (66) 95 12/11/18 08:00 127 12/11/18 08:00 Nasal Cannula 4.0 Nasal Cannula 4.0 Nasal Cannula 4.0 Nasal Cannula 4.0 12/11/18 07:51 146 101/47 12/11/18 04:47 146 101/47 12/11/18 04:00 Nasal Cannula 4.0 Nasal Cannula 4.0 Nasal Cannula 4.0 Nasal Cannula 4.0 12/11/18 03:59 98.8 113 24 106/57 (73) 95 12/11/18 03:46 132 12/11/18 00:00 98.4 100 24 98/55 (69) 98 12/11/18 00:00 Nasal Cannula 4.0 Nasal Cannula 4.0 Nasal Cannula 4.0 Nasal Cannula 4.0 12/10/18 23:19 124 12/10/18 20:56 100 90/60 12/10/18 20:42 97 Nasal Cannula 2.0 28 12/10/18 20:00 97.0 100 20 90/60 (70) 96 12/10/18 20:00 106 12/10/18 20:00 Nasal Cannula 4.0 Nasal Cannula 4.0 Nasal Cannula 4.0 Nasal Cannula 4.0 12/10/18 17:51 Nasal Cannula 3.0 Nasal Cannula 3.0 Nasal Cannula 3.0 Nasal Cannula 3.0 12/10/18 16:00 106 12/10/18 16:00 97.9 89 18 138/64 (88) 96 12/10/18 16:00 Nasal Cannula 3.0 Nasal Cannula 4.0 Nasal Cannula 4.0 Nasal Cannula 4.0 12/10/18 12:00 90 12/10/18 12:00 Nasal Cannula 3.0 Nasal Cannula 4.0 Nasal Cannula 4.0 Nasal Cannula 4.0 12/10/18 12:00 98.5 85 16 131/72 (91) 99 Intake and Output 12/10/18 12/11/18 19:00 07:00 Intake Total 1003.6 ml 490 ml Output Total 380 ml 275 ml Balance 623.6 ml 215 ml Free Water 150 ml 50 ml IV Total 613.6 ml 200 ml Tube Feeding 240 ml 240 ml Output Urine Total 330 ml 200 ml Drainage Total 50 ml 75 ml # Voids 1 # Bowel Movements 3 Laboratory Tests Test 12/11/18 03:25 White Blood Count 11.0 K/UL (4.8-10.8) H Red Blood Count 2.75 M/UL (4.70-6.10) L Hemoglobin 8.6 G/DL (14.2-18.0) L Hematocrit 26.7 % (42.0-52.0) L Mean Corpuscular Volume 97 FL (80-99) Mean Corpuscular Hemoglobin 31.4 PG (27.0-31.0) H Mean Corpuscular Hemoglobin Concent 32.3 G/DL (32.0-36.0) Red Cell Distribution Width 16.6 % (11.6-14.8) H Platelet Count 252 K/UL (150-450) Mean Platelet Volume 5.9 FL (6.5-10.1) L Neutrophils (%) (Auto) 84.2 % (45.0-75.0) H Lymphocytes (%) (Auto) 7.4 % (20.0-45.0) L Monocytes (%) (Auto) 7.2 % (1.0-10.0) Eosinophils (%) (Auto) 0.6 % (0.0-3.0) Basophils (%) (Auto) 0.6 % (0.0-2.0) Sodium Level 145 MMOL/L (136-145) Potassium Level 3.5 MMOL/L (3.5-5.1) Chloride Level 113 MMOL/L (98-107) H Carbon Dioxide Level 21 MMOL/L (21-32) Anion Gap 11 mmol/L (5-15) Blood Urea Nitrogen 6 mg/dL (7-18) L Creatinine 0.4 MG/DL (0.55-1.30) L Estimat Glomerular Filtration Rate mL/min (>60) Glucose Level 142 MG/DL (74-106) H Calcium Level 7.5 MG/DL (8.5-10.1) L Phosphorus Level 2.3 MG/DL (2.5-4.9) L Magnesium Level 1.8 MG/DL (1.8-2.4) Height (Feet): 5 Height (Inches): 5.00 Weight (Pounds): 167 General Appearance: no apparent distress Cardiovascular: normal rate Respiratory/Chest: normal breath sounds Abdominal Exam: site Sohan Kohli NP Dec 11, 2018 11:47
[2018-12-11 11:55] VITALS: BP 104/58
--- NOTE | 2018-12-11 14:00 | Infectious Diseases Prog Note ---
Assessment/Plan Assessment/Plan VDRF, s/p extubation 12/08 GIB- 2ry to actively bleeding Duodenal ulcer -12/02 SP exploratory laparotomy. Anterior duodenotomy for control of large posterior duodenal ulcer hemorrhage. closure of duodenotomy. pyloric exclusion with gastrojejunostomy abdominal washout. abdominal drain placement -12/02 SP EGD Shock likely hemorrhagic and septic component- now off presors -12/04 CXR: Suggestion of a slightly worsening vascular congestion -12/03 u/a neg, ucx Neg Bcx Neg -12/02 CXR: Slightly increased bilateral infiltrates Diarrhea CDiff + GI bleed 11/29 Colonscopy : Diverticulosis Sepsis -11/30 CT abd/p: Nonspecific trace free intraperitoneal fluid. No acute abdominal or pelvic process otherwise. Fairly extensive bilateral basilar pulmonary parenchymal consolidation and atelectasis. Bilateral small pleural effusions. Colonic diverticulosis. No evidence of diverticulitis. Gastrostomy. Nonobstructive 3 mm left intrarenal calyceal calculus. Prostatomegaly. Edema of the bilateral left greater than right subcutaneous fat. Fairly extensive chronic appearing bilateral hip degenerative changes, with bilateral joint effusions versus chronic synovial proliferation. Inferior vena cava filter -11/28 BCx Neg u/a no pyuria ucx Neg Pneumonia -12/07 CXR: Patchy airspace disease noted in the perihilar basilar regions. There may be a small left pleural effusion now present -12/03 Sp cx Citrobacter diversus (R Genta,Ancef, Bactrim); MDR P. stuarti ( S Amikacin) -CXR: Patchy bilateral infiltrates versus mixed interstitial alveolar edema noted. -sp cx MRSA, MDR P. stuarti (S Amikacin, Zosyn ; I cefepime; S ertapenem) Afebrile Leukocytosis; recurrent- improving MRSA bacteremia- suspect 2ry to PNA- r/o endocarditis -11/18 Bcx 2/4 MRSA , 1/4 S. capitis, Diptheroids (these 2 are contaminants); BCx Neg -2d Echo:limited study (no vegetations) Probable UTI, sp Rx -u/a wbc 10-15, nit neg, leuk +2; ucx MDR ABC (S bactrim, gentamicin) Acute respiratory failure Sacral decubitus ulcer, necrotic, surrounding cellulitis GIB dementia HTN CKD COPD dysphagia s/p Gtube feeding Parkinson disease seizure disorder multiple decubiti wounds shelter resident Plan: - Continue IV Flagyl #8 (abx d #) for Cdiff given NPO status -Cont IV Amikacin #4/7 for MDR PNA -12/09 SP IV Vancomycin #22 -12/03 SP PO Vancomycin #5 (held as pt now is NPO) -12/02 SP Flagyl #4 -11/29 SP Zosyn #8 -11/27 SP Bactrim # -11/23 SP Cefepime # -11/18 SP Levaquin x1 -f/u cx -Monitor CBC/CMP, temperatures -GT care -aspiration precautions -wound care per surgical team -Recommend FLORINA -f/u ucx, Bcx x2, sp cx -GI, Gen Sx f/u Subjective Allergies: Coded Allergies: No Known Allergies (Unverified , 11/18/18) Subjective afebrile Leukocytosis improving Objective Vital Signs Last 24 Hour Vital Signs Date Time Temp Pulse Resp B/P (MAP) Pulse Ox O2 Delivery O2 Flow Rate FiO2 12/11/18 12:00 126 12/11/18 12:00 Nasal Cannula 4.0 Nasal Cannula 4.0 Nasal Cannula 4.0 Nasal Cannula 4.0 12/11/18 11:55 98.2 109 22 104/58 (73) 98 12/11/18 08:18 116 12/11/18 08:00 98.2 91 24 99/50 (66) 95 12/11/18 08:00 127 12/11/18 08:00 Nasal Cannula 4.0 Nasal Cannula 4.0 Nasal Cannula 4.0 Nasal Cannula 4.0 12/11/18 07:51 146 101/47 12/11/18 04:47 146 101/47 12/11/18 04:00 Nasal Cannula 4.0 Nasal Cannula 4.0 Nasal Cannula 4.0 Nasal Cannula 4.0 12/11/18 03:59 98.8 113 24 106/57 (73) 95 12/11/18 03:46 132 12/11/18 00:00 98.4 100 24 98/55 (69) 98 12/11/18 00:00 Nasal Cannula 4.0 Nasal Cannula 4.0 Nasal Cannula 4.0 Nasal Cannula 4.0 7/17/19 23:19 124 12/10/18 20:56 100 90/60 12/10/18 20:42 97 Nasal Cannula 2.0 28 12/10/18 20:00 97.0 100 20 90/60 (70) 96 12/10/18 20:00 106 12/10/18 20:00 Nasal Cannula 4.0 Nasal Cannula 4.0 Nasal Cannula 4.0 Nasal Cannula 4.0 12/10/18 17:51 Nasal Cannula 3.0 Nasal Cannula 3.0 Nasal Cannula 3.0 Nasal Cannula 3.0 12/10/18 16:00 106 12/10/18 16:00 97.9 89 18 138/64 (88) 96 12/10/18 16:00 Nasal Cannula 3.0 Nasal Cannula 4.0 Nasal Cannula 4.0 Nasal Cannula 4.0 Height (Feet): 5 Height (Inches): 5.00 Weight (Pounds): 167 Objective General Appearance: WD/WN, no apparent distress Lines, tubes and drains: central line HEENT: normocephalic, atraumatic Neck: non-tender, normal alignment Cardiovascular/Chest: normal peripheral pulses, normal rate, regular rhythm Abdomen: normal bowel sounds, non tender Extremities: normal range of motion Skin Exam: normal pigmentation 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 Laboratory Tests Test 12/11/18 03:25 White Blood Count 11.0 K/UL (4.8-10.8) H Red Blood Count 2.75 M/UL (4.70-6.10) L Hemoglobin 8.6 G/DL (14.2-18.0) L Hematocrit 26.7 % (42.0-52.0) L Mean Corpuscular Volume 97 FL (80-99) Mean Corpuscular Hemoglobin 31.4 PG (27.0-31.0) H Mean Corpuscular Hemoglobin Concent 32.3 G/DL (32.0-36.0) Red Cell Distribution Width 16.6 % (11.6-14.8) H Platelet Count 252 K/UL (150-450) Mean Platelet Volume 5.9 FL (6.5-10.1) L Neutrophils (%) (Auto) 84.2 % (45.0-75.0) H Lymphocytes (%) (Auto) 7.4 % (20.0-45.0) L Monocytes (%) (Auto) 7.2 % (1.0-10.0) Eosinophils (%) (Auto) 0.6 % (0.0-3.0) Basophils (%) (Auto) 0.6 % (0.0-2.0) Sodium Level 145 MMOL/L (136-145) Potassium Level 3.5 MMOL/L (3.5-5.1) Chloride Level 113 MMOL/L (98-107) H Carbon Dioxide Level 21 MMOL/L (21-32) Anion Gap 11 mmol/L (5-15) Blood Urea Nitrogen 6 mg/dL (7-18) L Creatinine 0.4 MG/DL (0.55-1.30) L Estimat Glomerular Filtration Rate mL/min (>60) Glucose Level 142 MG/DL (74-106) H Calcium Level 7.5 MG/DL (8.5-10.1) L Phosphorus Level 2.3 MG/DL (2.5-4.9) L Magnesium Level 1.8 MG/DL (1.8-2.4) Current Medications Medications (Trade) Dose Ordered Sig/Pauline Route PRN Reason Start Time Stop Time Status Last Admin Dose Admin Acetaminophen (Tylenol) 650 mg Q4H PRN GT T>100.5 12/09/18 17:00 12/22/18 16:59 Amikacin Protocol (Amikacin pharmacy to dose) 1 ea DAILY PRN MISC Per rx protocol 12/10/18 09:00 01/07/19 16:44 Amikacin Sulfate 900 mg/Sodium Chloride 113.6 ml @ 113.6 mls/ hr Q24H IV 12/09/18 18:00 12/16/18 17:59 12/10/18 17:37 Chlorhexidine Gluconate (Marycarmen-Hex 2%) 1 applic DAILY@2000 TOPIC 12/09/18 20:00 12/30/18 19:59 12/10/18 19:34 Dextrose (Dextrose 50%) 25 ml Q30M PRN IV Hypoglycemia 12/09/18 17:30 12/18/18 18:17 Dextrose (Dextrose 50%) 50 ml Q30M PRN IV Hypoglycemia 12/09/18 17:30 12/18/18 18:17 Digoxin (Lanoxin) 0.125 mg DAILY NG 12/10/18 09:00 01/08/19 12:44 12/11/18 08:18 Hydralazine HCl (Apresoline) 10 mg Q4H PRN IV Systolic BP greater than 170 12/09/18 17:00 01/03/19 16:59 Hydrocortisone (Proctosol-HC Cream) 1 applic Q12HR TOPIC 12/09/18 21:00 01/01/19 12:59 12/11/18 08:19 Lactobacillus Acidophilus (Culturelle) 1 tab THREE TIMES A DAY ORAL 12/09/18 18:00 12/29/18 17:59 12/11/18 12:16 Metoprolol Tartrate (Lopressor) 12.5 mg Q12HR NG 12/09/18 21:00 01/08/19 20:59 12/11/18 04:47 Metronidazole 100 ml @ 100 mls/hr Q8HR IVPB 12/09/18 22:00 12/11/18 13:59 12/11/18 05:15 Midazolam HCl (Versed 2mg/2ml vial) 1 mg Q1H PRN IVP SEDATION 12/09/18 17:30 01/01/19 20:29 Pantoprazole (Protonix) 40 mg EVERY 12 HOURS IVP 12/09/18 21:00 01/06/19 20:59 12/11/18 08:18 Potassium Phosphate 20 mm/ Sodium Chloride 281.6667 ml @ 46.944 m... ONCE ONCE IV 12/11/18 09:00 12/11/18 14:59 12/11/18 09:31 Sodium Hypochlorite (Dakin's Quarter Strength) 1 applic DAILY TOPIC 12/10/18 09:00 01/03/19 11:59 12/11/18 08:19 Neva Yee M.D. Dec 11, 2018 14:00
--- NOTE | 2018-12-11 14:43 | General Progress Note ---
Assessment/Plan Problem List: (1) Acute DVT (deep venous thrombosis) ICD Codes: I82.409 - Acute embolism and thrombosis of unspecified deep veins of unspecified lower extremity SNOMED: 135495117291465 (2) UTI (urinary tract infection) ICD Codes: N39.0 - Urinary tract infection, site not specified SNOMED: 39735664, 307023088 Qualifiers: Qualified Codes: N30.00 - Acute cystitis without hematuria (3) Anemia, chronic disease ICD Codes: D63.8 - Anemia in other chronic diseases classified elsewhere SNOMED: 761701719, 660714011 (4) Parkinson disease ICD Codes: G20 - Parkinson's disease SNOMED: 73664676 (5) Alzheimer's dementia ICD Codes: G30.9 - Alzheimer's disease, unspecified; F02.80 - Dementia in other diseases classified elsewhere without behavioral disturbance SNOMED: 88229192 (6) COPD (chronic obstructive pulmonary disease) ICD Codes: J44.9 - Chronic obstructive pulmonary disease, unspecified SNOMED: 64657438 Status: progressing, unchanged Assessment/Plan: o2 pulm tx abx pt diet heme f/u cbc bmp am dc plan snf if clear Subjective Constitutional: Reports: weakness Allergies: Coded Allergies: No Known Allergies (Unverified , 11/18/18) All Systems: reviewed and negative except above Subjective o2nc sleepy Objective Last 24 Hour Vital Signs Date Time Temp Pulse Resp B/P (MAP) Pulse Ox O2 Delivery O2 Flow Rate FiO2 12/11/18 12:00 126 12/11/18 12:00 Nasal Cannula 4.0 Nasal Cannula 4.0 Nasal Cannula 4.0 Nasal Cannula 4.0 12/11/18 11:55 98.2 109 22 104/58 (73) 98 12/11/18 08:18 116 12/11/18 08:00 98.2 91 24 99/50 (66) 95 12/11/18 08:00 127 12/11/18 08:00 Nasal Cannula 4.0 Nasal Cannula 4.0 Nasal Cannula 4.0 Nasal Cannula 4.0 12/11/18 07:51 146 101/47 12/11/18 04:47 146 101/47 12/11/18 04:00 Nasal Cannula 4.0 Nasal Cannula 4.0 Nasal Cannula 4.0 Nasal Cannula 4.0 12/11/18 03:59 98.8 113 24 106/57 (73) 95 12/11/18 03:46 132 12/11/18 00:00 98.4 100 24 98/55 (69) 98 12/11/18 00:00 Nasal Cannula 4.0 Nasal Cannula 4.0 Nasal Cannula 4.0 Nasal Cannula 4.0 12/10/18 23:19 124 12/10/18 20:56 100 90/60 12/10/18 20:42 97 Nasal Cannula 2.0 28 12/10/18 20:00 97.0 100 20 90/60 (70) 96 12/10/18 20:00 106 12/10/18 20:00 Nasal Cannula 4.0 Nasal Cannula 4.0 Nasal Cannula 4.0 Nasal Cannula 4.0 12/10/18 17:51 Nasal Cannula 3.0 Nasal Cannula 3.0 Nasal Cannula 3.0 Nasal Cannula 3.0 12/10/18 16:00 106 12/10/18 16:00 97.9 89 18 138/64 (88) 96 12/10/18 16:00 Nasal Cannula 3.0 Nasal Cannula 4.0 Nasal Cannula 4.0 Nasal Cannula 4.0 Intake and Output 12/10/18 12/11/18 19:00 07:00 Intake Total 1003.6 ml 490 ml Output Total 380 ml 275 ml Balance 623.6 ml 215 ml Free Water 150 ml 50 ml IV Total 613.6 ml 200 ml Tube Feeding 240 ml 240 ml Output Urine Total 330 ml 200 ml Drainage Total 50 ml 75 ml # Voids 1 # Bowel Movements 3 Laboratory Tests 12/11/18 03:25: White Blood Count 11.0H, Red Blood Count 2.75L, Hemoglobin 8.6L, Hematocrit 26.7L, Mean Corpuscular Volume 97, Mean Corpuscular Hemoglobin 31.4H, Mean Corpuscular Hemoglobin Concent 32.3, Red Cell Distribution Width 16.6H, Platelet Count 252, Mean Platelet Volume 5.9L, Neutrophils (%) (Auto) 84.2H, Lymphocytes (%) (Auto) 7.4L, Monocytes (%) (Auto) 7.2, Eosinophils (%) (Auto) 0.6, Basophils (%) (Auto) 0.6, Sodium Level 145, Potassium Level 3.5, Chloride Level 113H, Carbon Dioxide Level 21, Anion Gap 11, Blood Urea Nitrogen 6L, Creatinine 0.4L, Estimat Glomerular Filtration Rate , Glucose Level 142H, Calcium Level 7.5L, Phosphorus Level 2.3L, Magnesium Level 1.8 Height (Feet): 5 Height (Inches): 5.00 Weight (Pounds): 167 General Appearance: lethargic EENT: normal ENT inspection Neck: normal alignment Cardiovascular: normal peripheral pulses, normal rate, regular rhythm Respiratory/Chest: chest wall non-tender, lungs clear, normal breath sounds Abdomen: normal bowel sounds, non tender, soft Extremities: normal inspection Edema: 1+ Arm (L), 1+ Arm (R), 1+ Leg (L), 1+ Leg (R), 1+ Pedal (L), 1+ Pedal ( R), 1+ Generalized Edema: trace edema Neurologic: motor weakness Skin: normal pigmentation, warm/dry Abdullahi Gonzalez DO Dec 11, 2018 14:43
--- NOTE | 2018-12-11 14:49 | Nephrology Progress Note ---
Assessment/Plan Problem List: (1) Hyponatremia Assessment: Na higher (2) UTI (urinary tract infection) (3) Anemia, chronic disease (4) Alzheimer's dementia (5) Parkinson disease (6) C. difficile colitis (7) Perforated duodenal ulcer Assessment Low Na corrected GI bleed transfused other conditions Pneumonia UTI, has grewal bacteremia sacral decub dementia HTN Sz disorder Parkinsons severe Anemia Plan on tube feeding Post OP care ( Laparatomy Op 12/02/18) Trial Albumin for low bp midodrine PRN K and Mag and Phos supplement as needed hemodynamic support Albumin bolus and transfusion for low BP as needed stop HypoTonic IV solution start maintenence IV fluid Urine studies Transfusion as needed Per orders roberto carlos khalil Subjective ROS Limited/Unobtainable: Yes Objective Objective Last 24 Hour Vital Signs Date Time Temp Pulse Resp B/P (MAP) Pulse Ox O2 Delivery O2 Flow Rate FiO2 12/11/18 12:00 126 12/11/18 12:00 Nasal Cannula 4.0 Nasal Cannula 4.0 Nasal Cannula 4.0 Nasal Cannula 4.0 12/11/18 11:55 98.2 109 22 104/58 (73) 98 12/11/18 08:18 116 12/11/18 08:00 98.2 91 24 99/50 (66) 95 12/11/18 08:00 127 12/11/18 08:00 Nasal Cannula 4.0 Nasal Cannula 4.0 Nasal Cannula 4.0 Nasal Cannula 4.0 12/11/18 07:51 146 101/47 12/11/18 04:47 146 101/47 12/11/18 04:00 Nasal Cannula 4.0 Nasal Cannula 4.0 Nasal Cannula 4.0 Nasal Cannula 4.0 12/11/18 03:59 98.8 113 24 106/57 (73) 95 12/11/18 03:46 132 12/11/18 00:00 98.4 100 24 98/55 (69) 98 12/11/18 00:00 Nasal Cannula 4.0 Nasal Cannula 4.0 Nasal Cannula 4.0 Nasal Cannula 4.0 12/10/18 23:19 124 12/10/18 20:56 100 90/60 12/10/18 20:42 97 Nasal Cannula 2.0 28 12/10/18 20:00 97.0 100 20 90/60 (70) 96 12/10/18 20:00 106 12/10/18 20:00 Nasal Cannula 4.0 Nasal Cannula 4.0 Nasal Cannula 4.0 Nasal Cannula 4.0 12/10/18 17:51 Nasal Cannula 3.0 Nasal Cannula 3.0 Nasal Cannula 3.0 Nasal Cannula 3.0 12/10/18 16:00 106 12/10/18 16:00 97.9 89 18 138/64 (88) 96 12/10/18 16:00 Nasal Cannula 3.0 Nasal Cannula 4.0 Nasal Cannula 4.0 Nasal Cannula 4.0 Intake and Output 12/10/18 12/11/18 19:00 07:00 Intake Total 1003.6 ml 490 ml Output Total 380 ml 275 ml Balance 623.6 ml 215 ml Free Water 150 ml 50 ml IV Total 613.6 ml 200 ml Tube Feeding 240 ml 240 ml Output Urine Total 330 ml 200 ml Drainage Total 50 ml 75 ml # Voids 1 # Bowel Movements 3 Laboratory Tests 12/11/18 03:25: White Blood Count 11.0H, Red Blood Count 2.75L, Hemoglobin 8.6L, Hematocrit 26.7L, Mean Corpuscular Volume 97, Mean Corpuscular Hemoglobin 31.4H, Mean Corpuscular Hemoglobin Concent 32.3, Red Cell Distribution Width 16.6H, Platelet Count 252, Mean Platelet Volume 5.9L, Neutrophils (%) (Auto) 84.2H, Lymphocytes (%) (Auto) 7.4L, Monocytes (%) (Auto) 7.2, Eosinophils (%) (Auto) 0.6, Basophils (%) (Auto) 0.6, Sodium Level 145, Potassium Level 3.5, Chloride Level 113H, Carbon Dioxide Level 21, Anion Gap 11, Blood Urea Nitrogen 6L, Creatinine 0.4L, Estimat Glomerular Filtration Rate , Glucose Level 142H, Calcium Level 7.5L, Phosphorus Level 2.3L, Magnesium Level 1.8 Height (Feet): 5 Height (Inches): 5.00 Weight (Pounds): 167 General Appearance: no apparent distress Cardiovascular: tachycardia Respiratory/Chest: decreased breath sounds Abdomen: distended Objective no change Kendall Trinidad MD Dec 11, 2018 14:49
--- NOTE | 2018-12-11 15:30 | Surgery Progress Note ---
Surgery Progress Note Subjective Procedure Performed 1. exploratory laparotomy 2. Anterior duodenotomy for control of large posterior duodenal ulcer hemorrhage 3. closure of duodenotomy 4. pyloric exclusion with gastrojejunostomy 5. abdominal washout 6. abdominal drain placement Additional Comments Leukocytosis improving, exam stable, no acute events. Drainage now a little bit darker and with a slight green tinge Objective Last 24 Hour Vital Signs Date Time Temp Pulse Resp B/P (MAP) Pulse Ox O2 Delivery O2 Flow Rate FiO2 12/11/18 12:00 126 12/11/18 12:00 Nasal Cannula 4.0 Nasal Cannula 4.0 Nasal Cannula 4.0 Nasal Cannula 4.0 12/11/18 11:55 98.2 109 22 104/58 (73) 98 12/11/18 08:18 116 12/11/18 08:00 98.2 91 24 99/50 (66) 95 12/11/18 08:00 127 12/11/18 08:00 Nasal Cannula 4.0 Nasal Cannula 4.0 Nasal Cannula 4.0 Nasal Cannula 4.0 12/11/18 07:51 146 101/47 12/11/18 04:47 146 101/47 12/11/18 04:00 Nasal Cannula 4.0 Nasal Cannula 4.0 Nasal Cannula 4.0 Nasal Cannula 4.0 12/11/18 03:59 98.8 113 24 106/57 (73) 95 12/11/18 03:46 132 12/11/18 00:00 98.4 100 24 98/55 (69) 98 12/11/18 00:00 Nasal Cannula 4.0 Nasal Cannula 4.0 Nasal Cannula 4.0 Nasal Cannula 4.0 12/10/18 23:19 124 12/10/18 20:56 100 90/60 12/10/18 20:42 97 Nasal Cannula 2.0 28 12/10/18 20:00 97.0 100 20 90/60 (70) 96 12/10/18 20:00 106 12/10/18 20:00 Nasal Cannula 4.0 Nasal Cannula 4.0 Nasal Cannula 4.0 Nasal Cannula 4.0 12/10/18 17:51 Nasal Cannula 3.0 Nasal Cannula 3.0 Nasal Cannula 3.0 Nasal Cannula 3.0 12/10/18 16:00 106 12/10/18 16:00 97.9 89 18 138/64 (88) 96 12/10/18 16:00 Nasal Cannula 3.0 Nasal Cannula 4.0 Nasal Cannula 4.0 Nasal Cannula 4.0 I&O Intake and Output 12/10/18 12/11/18 19:00 07:00 Intake Total 1003.6 ml 490 ml Output Total 380 ml 275 ml Balance 623.6 ml 215 ml Free Water 150 ml 50 ml IV Total 613.6 ml 200 ml Tube Feeding 240 ml 240 ml Output Urine Total 330 ml 200 ml Drainage Total 50 ml 75 ml # Voids 1 # Bowel Movements 3 Dressing: dry Wound: clean Drains: tawanda Cardiovascular: RSR Respiratory: decreased breath sounds Abdomen: soft, present bowel sounds, non-distended Extremities: no tenderness, no cyanosis Laboratory Tests Test 12/11/18 03:25 White Blood Count 11.0 K/UL (4.8-10.8) H Red Blood Count 2.75 M/UL (4.70-6.10) L Hemoglobin 8.6 G/DL (14.2-18.0) L Hematocrit 26.7 % (42.0-52.0) L Mean Corpuscular Volume 97 FL (80-99) Mean Corpuscular Hemoglobin 31.4 PG (27.0-31.0) H Mean Corpuscular Hemoglobin Concent 32.3 G/DL (32.0-36.0) Red Cell Distribution Width 16.6 % (11.6-14.8) H Platelet Count 252 K/UL (150-450) Mean Platelet Volume 5.9 FL (6.5-10.1) L Neutrophils (%) (Auto) 84.2 % (45.0-75.0) H Lymphocytes (%) (Auto) 7.4 % (20.0-45.0) L Monocytes (%) (Auto) 7.2 % (1.0-10.0) Eosinophils (%) (Auto) 0.6 % (0.0-3.0) Basophils (%) (Auto) 0.6 % (0.0-2.0) Sodium Level 145 MMOL/L (136-145) Potassium Level 3.5 MMOL/L (3.5-5.1) Chloride Level 113 MMOL/L (98-107) H Carbon Dioxide Level 21 MMOL/L (21-32) Anion Gap 11 mmol/L (5-15) Blood Urea Nitrogen 6 mg/dL (7-18) L Creatinine 0.4 MG/DL (0.55-1.30) L Estimat Glomerular Filtration Rate mL/min (>60) Glucose Level 142 MG/DL (74-106) H Calcium Level 7.5 MG/DL (8.5-10.1) L Phosphorus Level 2.3 MG/DL (2.5-4.9) L Magnesium Level 1.8 MG/DL (1.8-2.4) Assessment Post-op Diagnosis large posterior duodenal ulcer hemorrhage Plan Problems: (1) Decubitus skin ulcer Assessment & Plan: Pt presented on admission with multiple pressure injuries. Violaceous macular rash noted to L shoulder ,Upper L side of back and lateral L chest. L upper ext edematous with scattered petechiae. Category 2 skin tear with 10% flap loss noted to L brachial. Small amt sanguineous exudate noted. Unstageable pressure injury Sacrum . Base of wound noted to have 100% mixed slough.necrosis .Edges semi-detached and erythematous. Surrounding non- blanchable erythema without elevation in skin temp ,or induration. (L)9.5cm x (W )6.5cm. NO odor or exudate noted. Full thickness pressure injury lumbar spine in close proximity to sacral pressure injury.Base of wound pink with scattered biofilm. (L)2cm x (W)1.6cm. (+ ) maceration along borders. Periwound without erythema or induration. DTPI noted to medial L heel (L)3.2cm x (W)4.5cm. Base of fluctuant with delineated erythematous borders. Periwound fluctuant with non-blanchable erythema.Additionally, an area of stable dry eschar noted to posterior L heel(L) 0.6cm x (W)0.8cm DTPI Noted to lateral R heel. Maroon discoloration that is fluctuant within base of wound.(L)2.5cm x (W)1cm. DTPI noted to medial R heel. Base of wound fluctuant and is maroon in colour (L) 1.5cm x (W)1cm. Maroon discoloration without fluctuance or induration noted to lateral R tibia , superior but in close proximity to lateral Malleolus.(L)1.4cm x (W)0.5cm. Tx.Plan: Cleanse skin tear L brachial. (Maintain Versatel Contact layer)Apply Silvasorb Gel. Cover with Optifoam drsg. Change every 7 days and prn. Cleanse Sacral wound with Saline. Apply Therahoney. Apply Moisture Barrier Paste periwound. Cover with Optifoam drsg. Change every 3 days and prn. Cleanse wound Lumbar spine with saline. Apply Therahoney. Apply Cavilon Skin Barrier periwound. Cover with Optifoam drsg. Change every 3 days and prn. Apply Cavilon Skin Barrier to Lateral R tibia, R heel and L heel. Cover each site with Optifoam drsg. Change every 7 days and prn. APM/FERNANDEZ mattress overlay. Reposition at least every 2hours or as tolerated. Off-load heels with pillow. (2) Acute DVT (deep venous thrombosis) (3) HCAP (healthcare-associated pneumonia) (4) UTI (urinary tract infection) (5) Anemia, chronic disease (6) Sepsis Assessment & Plan: acute gi bleed - active hemorrhage to OR transfuse trend labs cont abx appreciate ID input (7) Feeding by G-tube Assessment & Plan: DAILY ESTIMATED NEEDS: Needs based on Sepsis, wound 60.5kg 25-35 kcals/kg 9684-5360 total kcals 1.25-2 g protein/kg 76-121 g total protein 25-30 mL/kg 6955-7948 total fluid mLs NUTRITION DIAGNOSIS: 1) Increased kcal and pro needs r/t wound healing as evidenced by pt w/ sacral unstageable wound and L heel DTPI. 2) Swallowing difficulty r/t dysphagia as evidenced by pt w/ Parkinson's dz, GT dependent. ENTERAL NUTRITION RECOMMENDATIONS: Glucerna 1.2 @60ml/hr x24 hrs to provide 1440ml, 1728 kcal, 86g pro, 1159ml free H2O - As medically able, rec to start Glucerna 1.2 @20ml/hr, advance as tolerated 10ml q4-6 hrs to goal. - Flush per MD/ HOB over 30 degrees ADDITIONAL RECOMMENDATIONS: 1) Per SNF: 5'6" ht, 133 lbs wt 2) STUDENT EDUCATION SPECIALIST eval if oral grat is appropriate 3) Wound care: Add YOLI BID via GT + VIT C 250mg BID 4) Hypoglycemics prn/ niss (8) COPD (chronic obstructive pulmonary disease) (9) Alzheimer's dementia (10) Parkinson disease (11) Seizures (12) Hyponatremia (13) Hemorrhagic shocks (14) Severe protein-calorie malnutrition (15) Lower GI bleed Assessment & Plan: see or report (16) C. difficile colitis Additional Comments Does not seem to be septic and if anything improving. Drainage output will be monitored. Advance tube feeds as tolerated. Continue antibiotics. Andrew Eugene Dec 11, 2018 15:30
[2018-12-11 16:00] VITALS: BP 106/62
--- NOTE | 2018-12-11 16:31 | Pulmonology Progress Note ---
Assessment/Plan Problems: (1) SVT (supraventricular tachycardia) (2) COPD (chronic obstructive pulmonary disease) (3) Sepsis (4) C. difficile colitis (5) Hemorrhagic shocks (6) Duodenal ulcer hemorrhage (7) HCAP (healthcare-associated pneumonia) (8) Acute DVT (deep venous thrombosis) (9) Anemia, chronic disease (10) Status post exploratory laparotomy (11) S/P insertion of IVC (inferior vena caval) filter (12) Alzheimer's dementia (13) Parkinson disease (14) Feeding by G-tube (15) Seizures (16) Severe protein-calorie malnutrition Assessment/Plan heart rate fluctuates s/p IVC filter continue abx, Amikacin, flagyl wound c are check electrolytes Respiratory treatment keep in cliff/teli Subjective ROS Limited/Unobtainable: No Constitutional: Reports: no symptoms HEENT: Repors: no symptoms Respiratory: Reports: no symptoms Allergies: Coded Allergies: No Known Allergies (Unverified , 11/18/18) Objective Last 24 Hour Vital Signs Date Time Temp Pulse Resp B/P (MAP) Pulse Ox O2 Delivery O2 Flow Rate FiO2 12/11/18 15:52 Nasal Cannula 4.0 Nasal Cannula 4.0 Nasal Cannula 4.0 Nasal Cannula 4.0 12/11/18 12:00 126 12/11/18 12:00 Nasal Cannula 4.0 Nasal Cannula 4.0 Nasal Cannula 4.0 Nasal Cannula 4.0 12/11/18 11:55 98.2 109 22 104/58 (73) 98 12/11/18 08:18 116 12/11/18 08:00 98.2 91 24 99/50 (66) 95 12/11/18 08:00 127 12/11/18 08:00 Nasal Cannula 4.0 Nasal Cannula 4.0 Nasal Cannula 4.0 Nasal Cannula 4.0 12/11/18 07:51 146 101/47 12/11/18 04:47 146 101/47 12/11/18 04:00 Nasal Cannula 4.0 Nasal Cannula 4.0 Nasal Cannula 4.0 Nasal Cannula 4.0 12/11/18 03:59 98.8 113 24 106/57 (73) 95 12/11/18 03:46 132 12/11/18 00:00 98.4 100 24 98/55 (69) 98 12/11/18 00:00 Nasal Cannula 4.0 Nasal Cannula 4.0 Nasal Cannula 4.0 Nasal Cannula 4.0 12/10/18 23:19 124 12/10/18 20:56 100 90/60 12/10/18 20:42 97 Nasal Cannula 2.0 28 12/10/18 20:00 97.0 100 20 90/60 (70) 96 12/10/18 20:00 106 12/10/18 20:00 Nasal Cannula 4.0 Nasal Cannula 4.0 Nasal Cannula 4.0 Nasal Cannula 4.0 12/10/18 17:51 Nasal Cannula 3.0 Nasal Cannula 3.0 Nasal Cannula 3.0 Nasal Cannula 3.0 Intake and Output 12/10/18 12/11/18 19:00 07:00 Intake Total 1003.6 ml 490 ml Output Total 380 ml 275 ml Balance 623.6 ml 215 ml Free Water 150 ml 50 ml IV Total 613.6 ml 200 ml Tube Feeding 240 ml 240 ml Output Urine Total 330 ml 200 ml Drainage Total 50 ml 75 ml # Voids 1 # Bowel Movements 3 Objective General Appearance: WD/WN HEENT: normocephalic, atraumatic Respiratory/Chest: chest wall non-tender, lungs clear, normal breath sounds Breasts: no masses Cardiovascular: normal peripheral pulses, normal rate Abdomen: normal bowel sounds, soft, non tender Genitourinary: normal external genitalia Extremities: no cyanosis, ++ edema in upper extremities L>R General Appearance: WD/WN HEENT: normocephalic Respiratory/Chest: chest wall non-tender Laboratory Tests 12/11/18 03:25: White Blood Count 11.0H, Red Blood Count 2.75L, Hemoglobin 8.6L, Hematocrit 26.7L, Mean Corpuscular Volume 97, Mean Corpuscular Hemoglobin 31.4H, Mean Corpuscular Hemoglobin Concent 32.3, Red Cell Distribution Width 16.6H, Platelet Count 252, Mean Platelet Volume 5.9L, Neutrophils (%) (Auto) 84.2H, Lymphocytes (%) (Auto) 7.4L, Monocytes (%) (Auto) 7.2, Eosinophils (%) (Auto) 0.6, Basophils (%) (Auto) 0.6, Sodium Level 145, Potassium Level 3.5, Chloride Level 113H, Carbon Dioxide Level 21, Anion Gap 11, Blood Urea Nitrogen 6L, Creatinine 0.4L, Estimat Glomerular Filtration Rate , Glucose Level 142H, Calcium Level 7.5L, Phosphorus Level 2.3L, Magnesium Level 1.8 Current Medications Medications (Trade) Dose Ordered Sig/Pauline Route PRN Reason Start Time Stop Time Status Last Admin Dose Admin Acetaminophen (Tylenol) 650 mg Q4H PRN GT T>100.5 12/09/18 17:00 12/22/18 16:59 Amikacin Protocol (Amikacin pharmacy to dose) 1 ea DAILY PRN MISC Per rx protocol 12/10/18 09:00 01/07/19 16:44 Amikacin Sulfate 900 mg/Sodium Chloride 113.6 ml @ 113.6 mls/ hr Q24H IV 12/09/18 18:00 12/16/18 17:59 12/10/18 17:37 Chlorhexidine Gluconate (Marycarmen-Hex 2%) 1 applic DAILY@1999 TOPIC 12/09/18 20:00 12/30/18 19:59 12/10/18 19:34 Dextrose (Dextrose 50%) 25 ml Q30M PRN IV Hypoglycemia 12/09/18 17:30 12/18/18 18:17 Dextrose (Dextrose 50%) 50 ml Q30M PRN IV Hypoglycemia 12/09/18 17:30 12/18/18 18:17 Digoxin (Lanoxin) 0.125 mg DAILY NG 12/10/18 09:00 01/08/19 12:44 12/11/18 08:18 Hydralazine HCl (Apresoline) 10 mg Q4H PRN IV Systolic BP greater than 170 12/09/18 17:00 01/03/19 16:59 Hydrocortisone (Proctosol-HC Cream) 1 applic Q12HR TOPIC 12/09/18 21:00 01/01/19 12:59 12/11/18 08:19 Lactobacillus Acidophilus (Culturelle) 1 tab THREE TIMES A DAY ORAL 12/09/18 18:00 12/29/18 17:59 12/11/18 12:16 Metoprolol Tartrate (Lopressor) 12.5 mg Q12HR NG 12/09/18 21:00 01/08/19 20:59 12/11/18 04:47 Midazolam HCl (Versed 2mg/2ml vial) 1 mg Q1H PRN IVP SEDATION 12/09/18 17:30 01/01/19 20:29 Midodrine (Pro-Amatine) 2.5 mg THREE TIMES A DAY ORAL 12/11/18 15:00 01/10/19 14:59 Pantoprazole (Protonix) 40 mg EVERY 12 HOURS IVP 12/09/18 21:00 01/06/19 20:59 12/11/18 08:18 Sodium Hypochlorite (Dakin's Quarter Strength) 1 applic DAILY TOPIC 12/10/18 09:00 01/03/19 11:59 12/11/18 08:19 David Carrasquillo MD Dec 11, 2018 16:31
--- NOTE | 2018-12-11 17:02 | Cardiac Electrophysiology PN ---
Assessment/Plan Assessment/Plan 1. Post op atrial fib with RVR 170s. On Dig 0.125 PEG daily and increase Lopressor to 25 GT bid Converted to SR with frequent PAC and PVC. 2. S/P Septic and hemorrhagic shock . Off pressors . Echo EF 55% 3. Acute right leg DVT and Bilateral UE DVT. S/P IVC filter . Off Eliquis for severe anemia and GI bleed 4. Staph aureous bacteremia. On Abx per Dr Yee FLORINA pending consent and patient stability 5. Parkinsonism. 6. COPD. 7. UTI. 8. Severe anemia and rectal bleed. S/P Colonoscopy on 11/20/18 and 11/29/18 and transfusion No obvious source. S/P EGD by Dr Dallas and Anterior duodenostomy for control of large posterior duodenal ulcer hemorrhage by Dr Eugene on 12/02/18 9. Seizure disorder. 10. S/P PEG 11. Respiratory failure, extubated 12/08/18 DW RN Subjective Subjective In SR in SDU. In and out of atrial fib. also had sinus tach Objective Last 24 Hour Vital Signs Date Time Temp Pulse Resp B/P (MAP) Pulse Ox O2 Delivery O2 Flow Rate FiO2 12/11/18 16:00 97.0 118 22 106/62 (77) 98 12/11/18 15:52 Nasal Cannula 4.0 Nasal Cannula 4.0 Nasal Cannula 4.0 Nasal Cannula 4.0 12/11/18 12:00 126 12/11/18 12:00 Nasal Cannula 4.0 Nasal Cannula 4.0 Nasal Cannula 4.0 Nasal Cannula 4.0 12/11/18 11:55 98.2 109 22 104/58 (73) 98 12/11/18 08:18 116 12/11/18 08:00 98.2 91 24 99/50 (66) 95 12/11/18 08:00 127 12/11/18 08:00 Nasal Cannula 4.0 Nasal Cannula 4.0 Nasal Cannula 4.0 Nasal Cannula 4.0 12/11/18 07:51 146 101/47 12/11/18 04:47 146 101/47 12/11/18 04:00 Nasal Cannula 4.0 Nasal Cannula 4.0 Nasal Cannula 4.0 Nasal Cannula 4.0 12/11/18 03:59 98.8 113 24 106/57 (73) 95 12/11/18 03:46 132 12/11/18 00:00 98.4 100 24 98/55 (69) 98 12/11/18 00:00 Nasal Cannula 4.0 Nasal Cannula 4.0 Nasal Cannula 4.0 Nasal Cannula 4.0 12/10/18 23:19 124 12/10/18 20:56 100 90/60 12/10/18 20:42 97 Nasal Cannula 2.0 28 12/10/18 20:00 97.0 100 20 90/60 (70) 96 12/10/18 20:00 106 12/10/18 20:00 Nasal Cannula 4.0 Nasal Cannula 4.0 Nasal Cannula 4.0 Nasal Cannula 4.0 12/10/18 17:51 Nasal Cannula 3.0 Nasal Cannula 3.0 Nasal Cannula 3.0 Nasal Cannula 3.0 Intake and Output 12/10/18 12/11/18 19:00 07:00 Intake Total 1003.6 ml 490 ml Output Total 380 ml 275 ml Balance 623.6 ml 215 ml Free Water 150 ml 50 ml IV Total 613.6 ml 200 ml Tube Feeding 240 ml 240 ml Output Urine Total 330 ml 200 ml Drainage Total 50 ml 75 ml # Voids 1 # Bowel Movements 3 Laboratory Tests Test 12/11/18 03:25 White Blood Count 11.0 K/UL (4.8-10.8) H Red Blood Count 2.75 M/UL (4.70-6.10) L Hemoglobin 8.6 G/DL (14.2-18.0) L Hematocrit 26.7 % (42.0-52.0) L Mean Corpuscular Volume 97 FL (80-99) Mean Corpuscular Hemoglobin 31.4 PG (27.0-31.0) H Mean Corpuscular Hemoglobin Concent 32.3 G/DL (32.0-36.0) Red Cell Distribution Width 16.6 % (11.6-14.8) H Platelet Count 252 K/UL (150-450) Mean Platelet Volume 5.9 FL (6.5-10.1) L Neutrophils (%) (Auto) 84.2 % (45.0-75.0) H Lymphocytes (%) (Auto) 7.4 % (20.0-45.0) L Monocytes (%) (Auto) 7.2 % (1.0-10.0) Eosinophils (%) (Auto) 0.6 % (0.0-3.0) Basophils (%) (Auto) 0.6 % (0.0-2.0) Sodium Level 145 MMOL/L (136-145) Potassium Level 3.5 MMOL/L (3.5-5.1) Chloride Level 113 MMOL/L (98-107) H Carbon Dioxide Level 21 MMOL/L (21-32) Anion Gap 11 mmol/L (5-15) Blood Urea Nitrogen 6 mg/dL (7-18) L Creatinine 0.4 MG/DL (0.55-1.30) L Estimat Glomerular Filtration Rate mL/min (>60) Glucose Level 142 MG/DL (74-106) H Calcium Level 7.5 MG/DL (8.5-10.1) L Phosphorus Level 2.3 MG/DL (2.5-4.9) L Magnesium Level 1.8 MG/DL (1.8-2.4) Objective HEAD AND NECK: No JVD LUNGS: Decreased breath sounds. CARDIOVASCULAR: Regular S1 and S2 with no gallop . ABDOMEN: Soft. G-tube intact. S/P Laparatomy EXTREMITIES: Upper extremity and LE edema. Earl Washington MD Dec 11, 2018 17:02
[2018-12-11] MEDS: Amikacin 900 MG in NS 110 ML IV SCH (17:13)
--- NOTE | 2018-12-11 17:15 | Progress Note ---
DATE: 12/11/2018 SUBJECTIVE: This is a 73-year-old male patient with sepsis and pneumonia, but has altered mental status. MENTAL STATUS EXAMINATION: This is a 73-year-old male. Appearance is disheveled. Attitude, irritable and agitated. Affect, guarded and restricted. Intellect, poor. Mood, depressed and anxious. Motor activity, psychomotor agitation. Attention span is poor. Orientation x2. Speech is low volume, slurred. Thought process is disorganized and illogical. Insight and judgment is poor. DIAGNOSIS: Major depressive disorder, mild, recurrent with psychotic features, rule out dementia with psychosis. PLAN: Continue treatment with medications to prevent any further decline in his cognition. Behavioral management provided for 20 minutes. Chart reviewed. Discussed with staff. Seen and assessed at bedside. Laith Mason M.D. DR: ELLYN JOB#: [id number] CC:
--- NOTE | 2018-12-11 19:14 | NUR ---
HAND-OFF: Report given to MONA Cole. Stable condition.
--- NOTE | 2018-12-11 19:15 | NUR ---
NURSE NOTES: Received patient from MONA KUMAR. Will continue plan of care.
[2018-12-11 20:00] VITALS: BP 90/60
[2018-12-11] MEDS: Metoprolol 25mg tab NG SCH (20:32)
[2018-12-11] MEDS: Dyna-Hex 2% Top Sol 2oz TOPIC SCH (20:33)
[2018-12-12] VITALS (7 sets, daily range): BP systolic 93–118; BP diastolic 41–70
[2018-12-12 04:38] LABS: HEMATOCRIT 22.7 % (42.0-52.0); HEMOGLOBIN 7.3 G/DL (14.2-18.0); MEAN CORPUSCULAR VOLUME 96 FL (80-99); PLATELET COUNT 239 K/UL (150-450); RED BLOOD COUNT 2.36 M/UL (4.70-6.10); RED CELL DISTRIBUTION WIDTH 16.7 % (11.6-14.8); WHITE BLOOD COUNT 9.9 K/UL (4.8-10.8)
[2018-12-12 04:53] LABS: ANION GAP 8 mmol/L (5-15); BLOOD UREA NITROGEN 6 mg/dL (7-18); CALCIUM 7.2 MG/DL (8.5-10.1); CARBON DIOXIDE 26 MMOL/L (21-32); CHLORIDE 113 MMOL/L (98-107); CREATININE 0.4 MG/DL (0.55-1.30); PHOSPHORUS 2.8 MG/DL (2.5-4.9); POTASSIUM 2.9 MMOL/L (3.5-5.1); SODIUM 147 MMOL/L (136-145)
--- NOTE | 2018-12-12 06:27 | NUR ---
NURSE NOTES: Left message for Dr. Silva informing him of patient's AM labs resulting in Potassium:2.9, Magnesium:1.4, awaiting call back for further instructions.
--- NOTE | 2018-12-12 07:18 | NUR ---
HAND-OFF: Report given to MONA Arvizu.
--- NOTE | 2018-12-12 07:19 | NUR ---
NURSE NOTES: Received patient in bed. Open eyes, non verbal. On nasal cannula at 4LPM. GTF on hold. Bradley cath inplace. Right abdomen ANGIE drain noted with dark small output noted. Contact isolation observed. Will continue plan of care.
--- NOTE | 2018-12-12 08:37 | General Progress Note ---
Assessment/Plan Problem List: (1) Acute DVT (deep venous thrombosis) ICD Codes: I82.409 - Acute embolism and thrombosis of unspecified deep veins of unspecified lower extremity SNOMED: 235138546362493 (2) UTI (urinary tract infection) ICD Codes: N39.0 - Urinary tract infection, site not specified SNOMED: 45983873, 478467164 Qualifiers: Qualified Codes: N30.00 - Acute cystitis without hematuria (3) Anemia, chronic disease ICD Codes: D63.8 - Anemia in other chronic diseases classified elsewhere SNOMED: 944269666, 239257466 (4) Parkinson disease ICD Codes: G20 - Parkinson's disease SNOMED: 75211527 (5) Alzheimer's dementia ICD Codes: G30.9 - Alzheimer's disease, unspecified; F02.80 - Dementia in other diseases classified elsewhere without behavioral disturbance SNOMED: 94804284 (6) COPD (chronic obstructive pulmonary disease) ICD Codes: J44.9 - Chronic obstructive pulmonary disease, unspecified SNOMED: 19305388 Status: stable, progressing Assessment/Plan: o2 pulm tx abx pt diet heme f/u cbc bmp am dc plan snf if clear Subjective Constitutional: Reports: weakness Allergies: Coded Allergies: No Known Allergies (Unverified , 11/18/18) All Systems: reviewed and negative except above Subjective o2nc sleepy Objective Last 24 Hour Vital Signs Date Time Temp Pulse Resp B/P (MAP) Pulse Ox O2 Delivery O2 Flow Rate FiO2 12/12/18 08:00 97.7 80 20 93/57 (69) 99 12/12/18 08:00 Nasal Cannula 4.0 Nasal Cannula 4.0 Nasal Cannula 4.0 Nasal Cannula 4.0 12/12/18 07:49 109 12/12/18 04:00 99.0 103 20 110/70 (83) 100 12/12/18 04:00 Nasal Cannula 4.0 Nasal Cannula 4.0 Nasal Cannula 4.0 Nasal Cannula 4.0 12/12/18 03:26 126 12/12/18 00:00 Nasal Cannula 4.0 Nasal Cannula 4.0 Nasal Cannula 4.0 Nasal Cannula 4.0 12/12/18 00:00 98.7 79 24 103/56 (72) 95 12/11/18 23:33 113 12/11/18 20:32 103 90/60 12/11/18 20:00 98.7 103 24 90/60 (70) 100 12/11/18 20:00 Nasal Cannula 4.0 Nasal Cannula 4.0 Nasal Cannula 4.0 Nasal Cannula 4.0 12/11/18 19:12 97 12/11/18 16:00 97.0 118 22 106/62 (77) 98 12/11/18 16:00 130 12/11/18 15:52 Nasal Cannula 4.0 Nasal Cannula 4.0 Nasal Cannula 4.0 Nasal Cannula 4.0 12/11/18 12:00 126 12/11/18 12:00 Nasal Cannula 4.0 Nasal Cannula 4.0 Nasal Cannula 4.0 Nasal Cannula 4.0 12/11/18 11:55 98.2 109 22 104/58 (73) 98 Intake and Output 12/11/18 12/12/18 19:00 07:00 Intake Total 935.2667 ml 370 ml Output Total 360 ml 320 ml Balance 575.2667 ml 50 ml Free Water 260 ml IV Total 395.2667 ml Tube Feeding 280 ml 270 ml Other 100 ml Output Urine Total 300 ml 300 ml Drainage Total 60 ml 20 ml # Bowel Movements 1 4 Laboratory Tests 12/12/18 03:30: White Blood Count 9.9, Red Blood Count 2.36L, Hemoglobin 7.3L, Hematocrit 22.7L , Mean Corpuscular Volume 96, Mean Corpuscular Hemoglobin 31.1H, Mean Corpuscular Hemoglobin Concent 32.3, Red Cell Distribution Width 16.7H, Platelet Count 239, Mean Platelet Volume 6.2L, Neutrophils (%) (Auto) , Lymphocytes (%) (Auto) , Monocytes (%) (Auto) , Eosinophils (%) (Auto) , Basophils (%) (Auto) , Differential Total Cells Counted 100, Neutrophils % ( Manual) 86H, Lymphocytes % (Manual) 12L, Monocytes % (Manual) 2, Eosinophils % ( Manual) 0, Basophils % (Manual) 0, Band Neutrophils 0, Platelet Estimate Adequate, Platelet Morphology Normal, Hypochromasia 1+, Anisocytosis 1+, Sodium Level 147H, Potassium Level 2.9L, Chloride Level 113H, Carbon Dioxide Level 26, Anion Gap 8, Blood Urea Nitrogen 6L, Creatinine 0.4L, Estimat Glomerular Filtration Rate , Glucose Level 132H, Calcium Level 7.2L, Phosphorus Level 2.8, Magnesium Level 1.4L Height (Feet): 5 Height (Inches): 5.00 Weight (Pounds): 165 General Appearance: lethargic EENT: normal ENT inspection Neck: normal alignment Cardiovascular: normal peripheral pulses, normal rate, regular rhythm Respiratory/Chest: chest wall non-tender, lungs clear, normal breath sounds Abdomen: normal bowel sounds, non tender, soft Extremities: normal inspection Edema: no edema noted Arm (L), no edema noted Arm (R), no edema noted Leg (L), no edema noted Leg (R), no edema noted Pedal (L), no edema noted Pedal (R), no edema noted Generalized Neurologic: motor weakness Skin: normal pigmentation, warm/dry Abdullahi Gonzalez DO Dec 12, 2018 08:37
[2018-12-12] MEDS: Pantoprazole Inj IVP SCH ×2 (09:43→21:01)
[2018-12-12] MEDS: Digoxin 0.125mg tab NG SCH (09:43)
[2018-12-12] MEDS: Metoprolol 25mg tab NG SCH ×2 (09:44→21:02)
[2018-12-12] MEDS: Lactobacillus-GG tablet ORAL SCH ×3 (09:44→18:18)
[2018-12-12] MEDS: Hydrocortisone 2.5% Cream - 30gm TOPIC SCH ×2 (09:45→21:02)
--- NOTE | 2018-12-12 10:51 | Nephrology Progress Note ---
Assessment/Plan Problem List: (1) Hyponatremia Assessment: Na higher (2) UTI (urinary tract infection) (3) Anemia, chronic disease (4) Alzheimer's dementia (5) Parkinson disease (6) C. difficile colitis (7) Perforated duodenal ulcer Assessment Low Na corrected GI bleed transfused other conditions Pneumonia UTI, has grewal bacteremia sacral decub dementia HTN Sz disorder Parkinsons severe Anemia Plan on tube feeding Post OP care ( Laparatomy Op 12/02/18) Trial Albumin for low bp midodrine PRN K and Mag and Phos supplement as needed hemodynamic support Albumin bolus and transfusion for low BP as needed stop HypoTonic IV solution start maintenence IV fluid Urine studies Transfusion as needed Per orders roberto carlos kahlil Subjective ROS Limited/Unobtainable: Yes Objective Objective Last 24 Hour Vital Signs Date Time Temp Pulse Resp B/P (MAP) Pulse Ox O2 Delivery O2 Flow Rate FiO2 12/12/18 09:44 80 93/57 12/12/18 09:43 80 12/12/18 08:00 97.7 80 20 93/57 (69) 99 12/12/18 08:00 Nasal Cannula 4.0 Nasal Cannula 4.0 Nasal Cannula 4.0 Nasal Cannula 4.0 12/12/18 07:49 109 12/12/18 04:00 99.0 103 20 110/70 (83) 100 12/12/18 04:00 Nasal Cannula 4.0 Nasal Cannula 4.0 Nasal Cannula 4.0 Nasal Cannula 4.0 12/12/18 03:26 126 12/12/18 00:00 Nasal Cannula 4.0 Nasal Cannula 4.0 Nasal Cannula 4.0 Nasal Cannula 4.0 12/12/18 00:00 98.7 79 24 103/56 (72) 95 12/11/18 23:33 113 12/11/18 20:32 103 90/60 12/11/18 20:00 98.7 103 24 90/60 (70) 100 12/11/18 20:00 Nasal Cannula 4.0 Nasal Cannula 4.0 Nasal Cannula 4.0 Nasal Cannula 4.0 12/11/18 19:12 97 12/11/18 16:00 97.0 118 22 106/62 (77) 98 12/11/18 16:00 130 12/11/18 15:52 Nasal Cannula 4.0 Nasal Cannula 4.0 Nasal Cannula 4.0 Nasal Cannula 4.0 12/11/18 12:00 126 12/11/18 12:00 Nasal Cannula 4.0 Nasal Cannula 4.0 Nasal Cannula 4.0 Nasal Cannula 4.0 12/11/18 11:55 98.2 109 22 104/58 (73) 98 Intake and Output 12/11/18 12/12/18 19:00 07:00 Intake Total 935.2667 ml 370 ml Output Total 360 ml 320 ml Balance 575.2667 ml 50 ml Free Water 260 ml IV Total 395.2667 ml Tube Feeding 280 ml 270 ml Other 100 ml Output Urine Total 300 ml 300 ml Drainage Total 60 ml 20 ml # Bowel Movements 1 4 Laboratory Tests 12/12/18 03:30: White Blood Count 9.9, Red Blood Count 2.36L, Hemoglobin 7.3L, Hematocrit 22.7L , Mean Corpuscular Volume 96, Mean Corpuscular Hemoglobin 31.1H, Mean Corpuscular Hemoglobin Concent 32.3, Red Cell Distribution Width 16.7H, Platelet Count 239, Mean Platelet Volume 6.2L, Neutrophils (%) (Auto) , Lymphocytes (%) (Auto) , Monocytes (%) (Auto) , Eosinophils (%) (Auto) , Basophils (%) (Auto) , Differential Total Cells Counted 100, Neutrophils % ( Manual) 86H, Lymphocytes % (Manual) 12L, Monocytes % (Manual) 2, Eosinophils % ( Manual) 0, Basophils % (Manual) 0, Band Neutrophils 0, Platelet Estimate Adequate, Platelet Morphology Normal, Hypochromasia 1+, Anisocytosis 1+, Sodium Level 147H, Potassium Level 2.9L, Chloride Level 113H, Carbon Dioxide Level 26, Anion Gap 8, Blood Urea Nitrogen 6L, Creatinine 0.4L, Estimat Glomerular Filtration Rate , Glucose Level 132H, Calcium Level 7.2L, Phosphorus Level 2.8, Magnesium Level 1.4L Height (Feet): 5 Height (Inches): 5.00 Weight (Pounds): 165 General Appearance: no apparent distress Cardiovascular: tachycardia Respiratory/Chest: decreased breath sounds Abdomen: distended Objective no change Kendall Trinidad MD Dec 12, 2018 10:51
--- NOTE | 2018-12-12 10:57 | Cardiology Report ---
APPROVED REPORT EKG Measurement Heart [id number] Atrial fibrillation with RVR Left axis deviation Nonspecific ST and T wave abnormality Abnormal ECG
--- NOTE | 2018-12-12 10:57 | Cardiology Report ---
APPROVED REPORT EKG Measurement Heart [id number] Multifocal atrial tachycardia. Left axis deviation Nonspecific ST and T wave abnormality Abnormal ECG
--- NOTE | 2018-12-12 10:59 | Pulmonolgy Critical Care Note ---
Critical Care - Asmt/Plan Problems: (1) Hemorrhagic shocks (2) Status post exploratory laparotomy (3) Duodenal ulcer hemorrhage (4) SVT (supraventricular tachycardia) (5) HCAP (healthcare-associated pneumonia) (6) Acute DVT (deep venous thrombosis) (7) COPD (chronic obstructive pulmonary disease) (8) S/P insertion of IVC (inferior vena caval) filter (9) C. difficile colitis (10) Alzheimer's dementia (11) Parkinson disease (12) Feeding by G-tube (13) Seizures (14) Severe protein-calorie malnutrition Respiratory: monitor respiratory rate, adjust FIO2, CXR Cardiac: continue to monitor HR/BP Renal: F/U I&O, check electrolytes Infectious Disease: check cultures Gastrointestinal: continue feedings/current rate Endocrine: monitor blood sugar Hematologic: monitor H/H, transfuse if hgb<8.5 Neurologic: PRN Ativan, keep patient comfortable Affect: PRN ativan Time Spent (Minutes): 40 Notes Reviewed: senior benefits specialist, cardio, renal Discussed with: nurses, consultants, disability case managerassistant store manager - Objective Last 24 Hour Vital Signs Date Time Temp Pulse Resp B/P (MAP) Pulse Ox O2 Delivery O2 Flow Rate FiO2 12/12/18 09:44 80 93/57 12/12/18 09:43 80 12/12/18 08:40 98 Nasal Cannula 2.0 28 12/12/18 08:00 97.7 80 20 93/57 (69) 99 12/12/18 08:00 Nasal Cannula 4.0 Nasal Cannula 4.0 Nasal Cannula 4.0 Nasal Cannula 4.0 12/12/18 07:49 109 12/12/18 04:00 99.0 103 20 110/70 (83) 100 12/12/18 04:00 Nasal Cannula 4.0 Nasal Cannula 4.0 Nasal Cannula 4.0 Nasal Cannula 4.0 12/12/18 03:26 126 12/12/18 00:00 Nasal Cannula 4.0 Nasal Cannula 4.0 Nasal Cannula 4.0 Nasal Cannula 4.0 12/12/18 00:00 98.7 79 24 103/56 (72) 95 12/11/18 23:33 113 12/11/18 20:32 103 90/60 12/11/18 20:00 98.7 103 24 90/60 (70) 100 12/11/18 20:00 Nasal Cannula 4.0 Nasal Cannula 4.0 Nasal Cannula 4.0 Nasal Cannula 4.0 12/11/18 19:12 97 12/11/18 16:00 97.0 118 22 106/62 (77) 98 12/11/18 16:00 130 12/11/18 15:52 Nasal Cannula 4.0 Nasal Cannula 4.0 Nasal Cannula 4.0 Nasal Cannula 4.0 12/11/18 12:00 126 12/11/18 12:00 Nasal Cannula 4.0 Nasal Cannula 4.0 Nasal Cannula 4.0 Nasal Cannula 4.0 12/11/18 11:55 98.2 109 22 104/58 (73) 98 Status: obtunded Condition: critical Neck: full ROM Lungs: clear Heart: HR/BP stable Abdomen: non-tender, active bowel sounds Extremities: no C/C/E Critical Care - Subjective ROS Limited/Unobtainable: Yes Condition: critical EKG Rhythm: Sinus Rhythm FI02: 28 Vent Support Breath Rate: 10 Vent Support Mode: CPAP Vent Tidal Volume: 600 Sputum Amount: Small PEEP: 0.0 PIP: 9 I&O: Intake and Output 12/11/18 12/12/18 19:00 07:00 Intake Total 935.2667 ml 370 ml Output Total 360 ml 320 ml Balance 575.2667 ml 50 ml Free Water 260 ml IV Total 395.2667 ml Tube Feeding 280 ml 270 ml Other 100 ml Output Urine Total 300 ml 300 ml Drainage Total 60 ml 20 ml # Bowel Movements 1 4 CXR: no change ET-Tube: 7.5 ET Position: 25 Labs: Laboratory Tests Test 12/12/18 03:30 White Blood Count 9.9 K/UL (4.8-10.8) Red Blood Count 2.36 M/UL (4.70-6.10) L Hemoglobin 7.3 G/DL (14.2-18.0) L Hematocrit 22.7 % (42.0-52.0) L Mean Corpuscular Volume 96 FL (80-99) Mean Corpuscular Hemoglobin 31.1 PG (27.0-31.0) H Mean Corpuscular Hemoglobin Concent 32.3 G/DL (32.0-36.0) Red Cell Distribution Width 16.7 % (11.6-14.8) H Platelet Count 239 K/UL (150-450) Mean Platelet Volume 6.2 FL (6.5-10.1) L Neutrophils (%) (Auto) % (45.0-75.0) Lymphocytes (%) (Auto) % (20.0-45.0) Monocytes (%) (Auto) % (1.0-10.0) Eosinophils (%) (Auto) % (0.0-3.0) Basophils (%) (Auto) % (0.0-2.0) Differential Total Cells Counted 100 Neutrophils % (Manual) 86 % (45-75) H Lymphocytes % (Manual) 12 % (20-45) L Monocytes % (Manual) 2 % (1-10) Eosinophils % (Manual) 0 % (0-3) Basophils % (Manual) 0 % (0-2) Band Neutrophils 0 % (0-8) Platelet Estimate Adequate Platelet Morphology Normal Hypochromasia 1+ Anisocytosis 1+ Sodium Level 147 MMOL/L (136-145) H Potassium Level 2.9 MMOL/L (3.5-5.1) L Chloride Level 113 MMOL/L (98-107) H Carbon Dioxide Level 26 MMOL/L (21-32) Anion Gap 8 mmol/L (5-15) Blood Urea Nitrogen 6 mg/dL (7-18) L Creatinine 0.4 MG/DL (0.55-1.30) L Estimat Glomerular Filtration Rate mL/min (>60) Glucose Level 132 MG/DL (74-106) H Calcium Level 7.2 MG/DL (8.5-10.1) L Phosphorus Level 2.8 MG/DL (2.5-4.9) Magnesium Level 1.4 MG/DL (1.8-2.4) L David Carrasquillo MD Dec 12, 2018 10:59
--- NOTE | 2018-12-12 13:59 | NUR ---
RD ASSESSMENT & RECOMMENDATIONS SEE CARE ACTIVITY FOR COMPLETE ASSESSMENT DAILY ESTIMATED NEEDS: Needs based on Wounds, sepsis, 60.5kg 25-35 kcals/kg 4741-1522 total kcals 1.25-2 g protein/kg 76-121 g total protein 25-30 mL/kg 3896-3817 total fluid mLs NUTRITION DIAGNOSIS: 1) Increased kcal and pro needs r/t wound healing as evidenced by pt w/ wounds, including unstageable sacral, full thickness spinal wound, DTPI BL heels. 2) Swallowing difficulty r/t dysphagia as evidenced by pt w/ Parkinsons dz, GT dependent. 3) Altered GI fxn r/t duodenal ulcer as evidenced by s/p ex lap w/ anterior duodenostomy, now on TF, held due to residuals. CURRENT TF:Vital AF 1.2 @ 60ml/hr x24 hrs -> HELD DUE TO RESIDUALS ENTERAL NUTRITION RECOMMENDATIONS: Vital AF 1.2 @ 60ml/hr x24 hrs for GI tolerance to provide 1440ml, 1728 kcal, 108g pro, 1168ml free H2O - As able, resume Vital AF 1.2 @ 20ml/hr, increase SLOWLY by 5ml q 4-6 hrs to goal rate - At goal, TF meets 100% est needs - Flush per MD/ HOB over 30 degrees ADDITIONAL RECOMMENDATIONS: 1) Per SNF: 5'6" ht, 133 lbs wt -> Rec re-calibrated bedscale wt for accurate CBW 2) Wound care: Add YOLI BID via GT + VIT C 250mg BID 3) Hypoglycemics prn/ niss 4) Monitor lytes, replete as needed (low K and mag) 5) Monitor TF tolerance closely- Reglan q 8 hrs added on 12/12
--- NOTE | 2018-12-12 14:01 | Cardiac Electrophysiology PN ---
Assessment/Plan Assessment/Plan 1. Post op atrial fib with RVR 170s. On Dig 0.125 PEG daily and Lopressor 25 GT bid Converted to SR with frequent PAC and PVC. 2. S/P Septic and hemorrhagic shock . Off pressors . Echo EF 55% 3. Acute right leg DVT and Bilateral UE DVT. S/P IVC filter . Off Eliquis for severe anemia and GI bleed 4. Staph aureous bacteremia. On Abx per Dr Yee FLORINA pending consent 5. Parkinsonism. 6. COPD. 7. UTI. 8. Severe anemia and rectal bleed. S/P Colonoscopy on 11/20/18 and 11/29/18 and transfusion No obvious source. S/P EGD by Dr Dallas and Anterior duodenostomy for control of large posterior duodenal ulcer hemorrhage by Dr Eugene on 12/02/18 9. Seizure disorder. 10. S/P PEG 11. Respiratory failure, extubated 12/08/18 DW RN Subjective Subjective In SR in SDU. No events. K was low Objective Last 24 Hour Vital Signs Date Time Temp Pulse Resp B/P (MAP) Pulse Ox O2 Delivery O2 Flow Rate FiO2 12/12/18 12:00 97.6 78 20 99/66 (77) 98 12/12/18 12:00 Nasal Cannula 4.0 Nasal Cannula 4.0 Nasal Cannula 4.0 Nasal Cannula 4.0 12/12/18 09:44 80 93/57 12/12/18 09:43 80 12/12/18 08:40 98 Nasal Cannula 2.0 28 12/12/18 08:00 97.7 80 20 93/57 (69) 99 12/12/18 08:00 Nasal Cannula 4.0 Nasal Cannula 4.0 Nasal Cannula 4.0 Nasal Cannula 4.0 12/12/18 07:49 109 12/12/18 04:00 99.0 103 20 110/70 (83) 100 12/12/18 04:00 Nasal Cannula 4.0 Nasal Cannula 4.0 Nasal Cannula 4.0 Nasal Cannula 4.0 12/12/18 03:26 126 12/12/18 00:00 Nasal Cannula 4.0 Nasal Cannula 4.0 Nasal Cannula 4.0 Nasal Cannula 4.0 12/12/18 00:00 98.7 79 24 103/56 (72) 95 12/11/18 23:33 113 12/11/18 20:32 103 90/60 12/11/18 20:00 98.7 103 24 90/60 (70) 100 12/11/18 20:00 Nasal Cannula 4.0 Nasal Cannula 4.0 Nasal Cannula 4.0 Nasal Cannula 4.0 12/11/18 19:12 97 12/11/18 16:00 97.0 118 22 106/62 (77) 98 12/11/18 16:00 130 12/11/18 15:52 Nasal Cannula 4.0 Nasal Cannula 4.0 Nasal Cannula 4.0 Nasal Cannula 4.0 Intake and Output 12/11/18 12/12/18 19:00 07:00 Intake Total 935.2667 ml 370 ml Output Total 360 ml 320 ml Balance 575.2667 ml 50 ml Free Water 260 ml IV Total 395.2667 ml Tube Feeding 280 ml 270 ml Other 100 ml Output Urine Total 300 ml 300 ml Drainage Total 60 ml 20 ml # Bowel Movements 1 4 Laboratory Tests Test 12/12/18 03:30 White Blood Count 9.9 K/UL (4.8-10.8) Red Blood Count 2.36 M/UL (4.70-6.10) L Hemoglobin 7.3 G/DL (14.2-18.0) L Hematocrit 22.7 % (42.0-52.0) L Mean Corpuscular Volume 96 FL (80-99) Mean Corpuscular Hemoglobin 31.1 PG (27.0-31.0) H Mean Corpuscular Hemoglobin Concent 32.3 G/DL (32.0-36.0) Red Cell Distribution Width 16.7 % (11.6-14.8) H Platelet Count 239 K/UL (150-450) Mean Platelet Volume 6.2 FL (6.5-10.1) L Neutrophils (%) (Auto) % (45.0-75.0) Lymphocytes (%) (Auto) % (20.0-45.0) Monocytes (%) (Auto) % (1.0-10.0) Eosinophils (%) (Auto) % (0.0-3.0) Basophils (%) (Auto) % (0.0-2.0) Differential Total Cells Counted 100 Neutrophils % (Manual) 86 % (45-75) H Lymphocytes % (Manual) 12 % (20-45) L Monocytes % (Manual) 2 % (1-10) Eosinophils % (Manual) 0 % (0-3) Basophils % (Manual) 0 % (0-2) Band Neutrophils 0 % (0-8) Platelet Estimate Adequate Platelet Morphology Normal Hypochromasia 1+ Anisocytosis 1+ Sodium Level 147 MMOL/L (136-145) H Potassium Level 2.9 MMOL/L (3.5-5.1) L Chloride Level 113 MMOL/L (98-107) H Carbon Dioxide Level 26 MMOL/L (21-32) Anion Gap 8 mmol/L (5-15) Blood Urea Nitrogen 6 mg/dL (7-18) L Creatinine 0.4 MG/DL (0.55-1.30) L Estimat Glomerular Filtration Rate mL/min (>60) Glucose Level 132 MG/DL (74-106) H Calcium Level 7.2 MG/DL (8.5-10.1) L Phosphorus Level 2.8 MG/DL (2.5-4.9) Magnesium Level 1.4 MG/DL (1.8-2.4) L Objective HEAD AND NECK: No JVD LUNGS: Decreased breath sounds. CARDIOVASCULAR: Regular S1 and S2 with no gallop . ABDOMEN: Soft. G-tube intact. S/P Laparatomy EXTREMITIES: Upper extremity and LE edema. Earl Washington MD Dec 12, 2018 14:01
[2018-12-12] MEDS: Metoclopramide 10mg/2ml Inj IVP SCH ×2 (14:15→21:59)
--- NOTE | 2018-12-12 14:37 | Surgery Progress Note ---
Surgery Progress Note Subjective Procedure Performed 1. exploratory laparotomy 2. Anterior duodenotomy for control of large posterior duodenal ulcer hemorrhage 3. closure of duodenotomy 4. pyloric exclusion with gastrojejunostomy 5. abdominal washout 6. abdominal drain placement Additional Comments no acute events. leukocytosis resolved had BM labs improved Objective Last 24 Hour Vital Signs Date Time Temp Pulse Resp B/P (MAP) Pulse Ox O2 Delivery O2 Flow Rate FiO2 12/12/18 12:00 97.6 78 20 99/66 (77) 98 12/12/18 12:00 Nasal Cannula 4.0 Nasal Cannula 4.0 Nasal Cannula 4.0 Nasal Cannula 4.0 12/12/18 11:26 102 12/12/18 09:44 80 93/57 12/12/18 09:43 80 12/12/18 08:40 98 Nasal Cannula 2.0 28 12/12/18 08:00 97.7 80 20 93/57 (69) 99 12/12/18 08:00 Nasal Cannula 4.0 Nasal Cannula 4.0 Nasal Cannula 4.0 Nasal Cannula 4.0 12/12/18 07:49 109 12/12/18 04:00 99.0 103 20 110/70 (83) 100 12/12/18 04:00 Nasal Cannula 4.0 Nasal Cannula 4.0 Nasal Cannula 4.0 Nasal Cannula 4.0 12/12/18 03:26 126 12/12/18 00:00 Nasal Cannula 4.0 Nasal Cannula 4.0 Nasal Cannula 4.0 Nasal Cannula 4.0 12/12/18 00:00 98.7 79 24 103/56 (72) 95 12/11/18 23:33 113 12/11/18 20:32 103 90/60 12/11/18 20:00 98.7 103 24 90/60 (70) 100 12/11/18 20:00 Nasal Cannula 4.0 Nasal Cannula 4.0 Nasal Cannula 4.0 Nasal Cannula 4.0 12/11/18 19:12 97 12/11/18 16:00 97.0 118 22 106/62 (77) 98 12/11/18 16:00 130 12/11/18 15:52 Nasal Cannula 4.0 Nasal Cannula 4.0 Nasal Cannula 4.0 Nasal Cannula 4.0 I&O Intake and Output 12/11/18 12/12/18 19:00 07:00 Intake Total 935.2667 ml 370 ml Output Total 360 ml 320 ml Balance 575.2667 ml 50 ml Free Water 260 ml IV Total 395.2667 ml Tube Feeding 280 ml 270 ml Other 100 ml Output Urine Total 300 ml 300 ml Drainage Total 60 ml 20 ml # Bowel Movements 1 4 Dressing: dry Wound: clean Drains: tawanda Cardiovascular: RSR Respiratory: clear Abdomen: soft, present bowel sounds, other, non-distended Extremities: no cyanosis Laboratory Tests Test 12/12/18 03:30 White Blood Count 9.9 K/UL (4.8-10.8) Red Blood Count 2.36 M/UL (4.70-6.10) L Hemoglobin 7.3 G/DL (14.2-18.0) L Hematocrit 22.7 % (42.0-52.0) L Mean Corpuscular Volume 96 FL (80-99) Mean Corpuscular Hemoglobin 31.1 PG (27.0-31.0) H Mean Corpuscular Hemoglobin Concent 32.3 G/DL (32.0-36.0) Red Cell Distribution Width 16.7 % (11.6-14.8) H Platelet Count 239 K/UL (150-450) Mean Platelet Volume 6.2 FL (6.5-10.1) L Neutrophils (%) (Auto) % (45.0-75.0) Lymphocytes (%) (Auto) % (20.0-45.0) Monocytes (%) (Auto) % (1.0-10.0) Eosinophils (%) (Auto) % (0.0-3.0) Basophils (%) (Auto) % (0.0-2.0) Differential Total Cells Counted 100 Neutrophils % (Manual) 86 % (45-75) H Lymphocytes % (Manual) 12 % (20-45) L Monocytes % (Manual) 2 % (1-10) Eosinophils % (Manual) 0 % (0-3) Basophils % (Manual) 0 % (0-2) Band Neutrophils 0 % (0-8) Platelet Estimate Adequate Platelet Morphology Normal Hypochromasia 1+ Anisocytosis 1+ Sodium Level 147 MMOL/L (136-145) H Potassium Level 2.9 MMOL/L (3.5-5.1) L Chloride Level 113 MMOL/L (98-107) H Carbon Dioxide Level 26 MMOL/L (21-32) Anion Gap 8 mmol/L (5-15) Blood Urea Nitrogen 6 mg/dL (7-18) L Creatinine 0.4 MG/DL (0.55-1.30) L Estimat Glomerular Filtration Rate mL/min (>60) Glucose Level 132 MG/DL (74-106) H Calcium Level 7.2 MG/DL (8.5-10.1) L Phosphorus Level 2.8 MG/DL (2.5-4.9) Magnesium Level 1.4 MG/DL (1.8-2.4) L Assessment Post-op Diagnosis large posterior duodenal ulcer hemorrhage Plan Problems: (1) Decubitus skin ulcer Assessment & Plan: Pt presented on admission with multiple pressure injuries. Violaceous macular rash noted to L shoulder ,Upper L side of back and lateral L chest. L upper ext edematous with scattered petechiae. Category 2 skin tear with 10% flap loss noted to L brachial. Small amt sanguineous exudate noted. Unstageable pressure injury Sacrum . Base of wound noted to have 100% mixed slough.necrosis .Edges semi-detached and erythematous. Surrounding non- blanchable erythema without elevation in skin temp ,or induration. (L)9.5cm x (W )6.5cm. NO odor or exudate noted. Full thickness pressure injury lumbar spine in close proximity to sacral pressure injury.Base of wound pink with scattered biofilm. (L)2cm x (W)1.6cm. (+ ) maceration along borders. Periwound without erythema or induration. DTPI noted to medial L heel (L)3.2cm x (W)4.5cm. Base of fluctuant with delineated erythematous borders. Periwound fluctuant with non-blanchable erythema.Additionally, an area of stable dry eschar noted to posterior L heel(L) 0.6cm x (W)0.8cm DTPI Noted to lateral R heel. Maroon discoloration that is fluctuant within base of wound.(L)2.5cm x (W)1cm. DTPI noted to medial R heel. Base of wound fluctuant and is maroon in colour (L) 1.5cm x (W)1cm. Maroon discoloration without fluctuance or induration noted to lateral R tibia , superior but in close proximity to lateral Malleolus.(L)1.4cm x (W)0.5cm. Tx.Plan: Cleanse skin tear L brachial. (Maintain Versatel Contact layer)Apply Silvasorb Gel. Cover with Optifoam drsg. Change every 7 days and prn. Cleanse Sacral wound with Saline. Apply Therahoney. Apply Moisture Barrier Paste periwound. Cover with Optifoam drsg. Change every 3 days and prn. Cleanse wound Lumbar spine with saline. Apply Therahoney. Apply Cavilon Skin Barrier periwound. Cover with Optifoam drsg. Change every 3 days and prn. Apply Cavilon Skin Barrier to Lateral R tibia, R heel and L heel. Cover each site with Optifoam drsg. Change every 7 days and prn. APM/FERNANDEZ mattress overlay. Reposition at least every 2hours or as tolerated. Off-load heels with pillow. (2) Acute DVT (deep venous thrombosis) (3) HCAP (healthcare-associated pneumonia) (4) UTI (urinary tract infection) (5) Anemia, chronic disease (6) Sepsis Assessment & Plan: acute gi bleed - active hemorrhage to OR transfuse trend labs cont abx appreciate ID input (7) Feeding by G-tube Assessment & Plan: DAILY ESTIMATED NEEDS: Needs based on Sepsis, wound 60.5kg 25-35 kcals/kg 1696-1288 total kcals 1.25-2 g protein/kg 76-121 g total protein 25-30 mL/kg 4770-9029 total fluid mLs NUTRITION DIAGNOSIS: 1) Increased kcal and pro needs r/t wound healing as evidenced by pt w/ sacral unstageable wound and L heel DTPI. 2) Swallowing difficulty r/t dysphagia as evidenced by pt w/ Parkinson's dz, GT dependent. ENTERAL NUTRITION RECOMMENDATIONS: Glucerna 1.2 @60ml/hr x24 hrs to provide 1440ml, 1728 kcal, 86g pro, 1159ml free H2O - As medically able, rec to start Glucerna 1.2 @20ml/hr, advance as tolerated 10ml q4-6 hrs to goal. - Flush per MD/ HOB over 30 degrees ADDITIONAL RECOMMENDATIONS: 1) Per SNF: 5'6" ht, 133 lbs wt 2) RESEARCH KENNEL SUPERVISOR eval if oral grat is appropriate 3) Wound care: Add YOLI BID via GT + VIT C 250mg BID 4) Hypoglycemics prn/ niss (8) COPD (chronic obstructive pulmonary disease) (9) Alzheimer's dementia (10) Parkinson disease (11) Seizures (12) Hyponatremia (13) Hemorrhagic shocks (14) Severe protein-calorie malnutrition (15) Lower GI bleed Assessment & Plan: see or report (16) C. difficile colitis Additional Comments drain with little output but more dark now. possible small contained biliary leak with drain in place labs improved overall much improved cont feeds Andrew Eugene Dec 12, 2018 14:37
--- NOTE | 2018-12-12 15:30 | Progress Note ---
DATE: 12/12/2018 SUBJECTIVE: This is a 73-year-old male patient with sepsis and pneumonia. This patient continues to have some confusion, some disorganized thought process, decline in cognition below baseline. He has got some mood lability. He has got altered mental status. I am going to continue to work with this patient to prevent any further decline in his cognition. MENTAL STATUS EXAMINATION: This is a 73-year-old male. Appearance is disheveled. Attitude, irritable and agitated. Affect, guarded and restricted. Intellect poor. Mood, depressed and anxious. Motor activity, psychomotor agitation. Attention span is poor. Orientation x2. Speech is low volume, slurred. Thought process, disorganized and illogical. Insight and judgment is poor. DIAGNOSIS: Major depressive disorder, mild, recurrent with psychotic features, rule out dementia with psychosis. Chart reviewed. Discussed with staff. Seen and assessed in his room. Laith Mason M.D. DR: RACHEL JOB#: [id number] CC:
--- NOTE | 2018-12-12 15:32 | Hematology/Onc Progress Note ---
Assessment/Plan Assessment/Plan Assessment/Plan # Anemia due to GI Bleed, other causes exist, multifactorial, is s/p lap site, egd done --> Anemia workup has been reviewed, FERRITIN 831 --> No evidence of hemolysis is noted, peripheral smear has been reviewed. --> Hgb goal >7. Transfuse prn. --> Epogen or iron at this time is not particularly indicated --> Medications have been reviewed --> low threshold for gi evaluation in case has occult +--> endoscopy and colo pending --> hgb trend: 7.4-->9.0-->9-->8.6->8.9-->6.1-->9.8--> 7.3->8.8-->9-->9.5-->8.4- ->8->8.5-->7.3 --> Blood tx: 1 unit 11/19, 11/27, 12/02 # Acute right leg DVT. Heparin drip DCed for rectal bleed. s/p IVC FILTER --> agree with need for this given coagulant contraindication --> appreciate gi and pulm/cc recs --> UPPER EXT DVT noted as well --> have discontinued eliquis given acute GI bleed on 11/27/18, ON HOLD --> consider restart eliquis once h/h remains stable x 1 week # Leukocytosis due to sepsis. --> currently improved --> urine and blood cultures are both positive, mrsa positive --> IV abx per id --> trend wbc 11.6--> 16-->8-->9.9 # Thrombocytopenia likely related to infection --> trend plt 111k-->129k-->148k-->174k-->200k-->252k-->239 --> likely was related to infection --> meds reviewed # Sinus tach due to anemia and sepsis and beta danya withdrawal as was on Metoprolol 12.5 bid at [facility] --> per cards recs # Hypertension. Hold Metoprolol as BP is 90s. --> clonidine per cards # Respiratory failure now extubated The timing of this note does not necessarily reflect the time of the patient was seen. GREATLY APPRECIATE CONSULTATION. Subjective ROS Limited/Unobtainable: Yes Hematologic/Lymphatic: Reports: anemia Allergies: Coded Allergies: No Known Allergies (Unverified , 11/18/18) Subjective Subjective 11/20: Colonoscopy for today. S/P 1 unit prbc. 11/21: Pt awake and nonverbal. Hgb at 7.4, blood tx ordered. 11/23: Pt no acute respiratory distress. CXR Increased bilateral lower lobe atelectasis or airspace consolidation. Underlying pneumonia may be present. Small bilateral pleural effusions. 11/24: no events, no f/c noted, no bleeding, anemia panel reviewed, s/p ivc filter 11/25: No acute events, no signs of distress. DC planning 11/26: no events, no bleeding, noted to have b/l upper ext dvt, acute started on elqiuis 11/27: sbo was ow in the am, transferred to the icu, hgb low requiring transfusion 11/28: Left UE edema > Right UE, s/p blood transfusion 11/27. 11/29:pt is on Venti mask, lethargic. 11/30:pt seen in am, with thick sputum per suctioning. 12/02: no events reported, hgb is better, seen by cards, pulm 12/03: no events, no chills, remains in icu 12/04: is off vanco po, remains in the icu, hgb 9 12/05: no events, no f/c, labs reviwed, on cpap 12/06: no events, bleeding improved, na is better as well 12/08: remains intubated on vent, eyes open 12/09: extubated, doing better, no f/c, no events reported 12/10: no events, no bleeding, no f/c noted 12/11: gtube feeds as per gi, no f/c, no bleeding 12/12: opens eyes, nonverbal, nc 4L,abs reviewed. hgb at 7.3, repeat cbc tomorrow. Objective Objective Current Medications Medications (Trade) Dose Ordered Sig/Pauline Route PRN Reason Start Time Stop Time Status Last Admin Dose Admin Acetaminophen (Tylenol) 650 mg Q4H PRN GT T>100.5 12/09/18 17:00 12/22/18 16:59 Amikacin Protocol (Amikacin pharmacy to dose) 1 ea DAILY PRN MISC Per rx protocol 12/10/18 09:00 01/07/19 16:44 Amikacin Sulfate 900 mg/Sodium Chloride 113.6 ml @ 113.6 mls/ hr Q24H IV 12/09/18 18:00 12/16/18 17:59 12/11/18 17:13 Chlorhexidine Gluconate (Marycarmen-Hex 2%) 1 applic DAILY@2000 TOPIC 12/09/18 20:00 12/30/18 19:59 12/11/18 20:33 Dextrose (Dextrose 50%) 25 ml Q30M PRN IV Hypoglycemia 12/09/18 17:30 12/18/18 18:17 Dextrose (Dextrose 50%) 50 ml Q30M PRN IV Hypoglycemia 12/09/18 17:30 12/18/18 18:17 Digoxin (Lanoxin) 0.125 mg DAILY NG 12/10/18 09:00 01/08/19 12:44 12/12/18 09:43 Hydralazine HCl (Apresoline) 10 mg Q4H PRN IV Systolic BP greater than 170 12/09/18 17:00 01/03/19 16:59 Hydrocortisone (Proctosol-HC Cream) 1 applic Q12HR TOPIC 12/09/18 21:00 01/01/19 12:59 12/12/18 09:45 Lactobacillus Acidophilus (Culturelle) 1 tab THREE TIMES A DAY ORAL 12/09/18 18:00 12/29/18 17:59 12/12/18 13:00 Metoclopramide HCl (Reglan) 10 mg EVERY 8 HOURS IVP 12/12/18 14:00 01/11/19 13:59 12/12/18 14:15 Metoprolol Tartrate (Lopressor) 25 mg Q12HR NG 12/11/18 21:00 01/08/19 20:59 12/12/18 09:44 Midazolam HCl (Versed 2mg/2ml vial) 1 mg Q1H PRN IVP SEDATION 12/09/18 17:30 01/01/19 20:29 Midodrine (Pro-Amatine) 2.5 mg THREE TIMES A DAY ORAL 12/11/18 15:00 01/10/19 14:59 12/12/18 13:00 Pantoprazole (Protonix) 40 mg EVERY 12 HOURS IVP 12/09/18 21:00 01/06/19 20:59 12/12/18 09:43 Potassium Chloride 100 ml @ 100 mls/hr Q1HR IVPB 12/12/18 10:00 12/12/18 15:59 12/12/18 15:20 Sodium Hypochlorite (Dakin's Quarter Strength) 1 applic BEDTIME TOPIC 12/12/18 21:00 01/03/19 11:59 Last 24 Hour Vital Signs Date Time Temp Pulse Resp B/P (MAP) Pulse Ox O2 Delivery O2 Flow Rate FiO2 12/12/18 12:00 97.6 78 20 99/66 (77) 98 12/12/18 12:00 Nasal Cannula 4.0 Nasal Cannula 4.0 Nasal Cannula 4.0 Nasal Cannula 4.0 12/12/18 11:26 102 12/12/18 09:44 80 93/57 12/12/18 09:43 80 12/12/18 08:40 98 Nasal Cannula 2.0 28 12/12/18 08:00 97.7 80 20 93/57 (69) 99 12/12/18 08:00 Nasal Cannula 4.0 Nasal Cannula 4.0 Nasal Cannula 4.0 Nasal Cannula 4.0 12/12/18 07:49 109 12/12/18 04:00 99.0 103 20 110/70 (83) 100 12/12/18 04:00 Nasal Cannula 4.0 Nasal Cannula 4.0 Nasal Cannula 4.0 Nasal Cannula 4.0 12/12/18 03:26 126 12/12/18 00:00 Nasal Cannula 4.0 Nasal Cannula 4.0 Nasal Cannula 4.0 Nasal Cannula 4.0 12/12/18 00:00 98.7 79 24 103/56 (72) 95 12/11/18 23:33 113 12/11/18 20:32 103 90/60 12/11/18 20:00 98.7 103 24 90/60 (70) 100 12/11/18 20:00 Nasal Cannula 4.0 Nasal Cannula 4.0 Nasal Cannula 4.0 Nasal Cannula 4.0 12/11/18 19:12 97 12/11/18 16:00 97.0 118 22 106/62 (77) 98 12/11/18 16:00 130 12/11/18 15:52 Nasal Cannula 4.0 Nasal Cannula 4.0 Nasal Cannula 4.0 Nasal Cannula 4.0 12/11/18 12:00 126 12/11/18 12:00 Nasal Cannula 4.0 Nasal Cannula 4.0 Nasal Cannula 4.0 Nasal Cannula 4.0 12/11/18 11:55 98.2 109 22 104/58 (73) 98 12/11/18 08:18 116 12/11/18 08:00 98.2 91 24 99/50 (66) 95 12/11/18 08:00 127 12/11/18 08:00 Nasal Cannula 4.0 Nasal Cannula 4.0 Nasal Cannula 4.0 Nasal Cannula 4.0 12/11/18 07:51 146 101/47 12/11/18 04:47 146 101/47 12/11/18 04:00 Nasal Cannula 4.0 Nasal Cannula 4.0 Nasal Cannula 4.0 Nasal Cannula 4.0 12/11/18 03:59 98.8 113 24 106/57 (73) 95 12/11/18 03:46 132 12/11/18 00:00 98.4 100 24 98/55 (69) 98 12/11/18 00:00 Nasal Cannula 4.0 Nasal Cannula 4.0 Nasal Cannula 4.0 Nasal Cannula 4.0 12/10/18 23:19 124 12/10/18 20:56 100 90/60 12/10/18 20:42 97 Nasal Cannula 2.0 28 12/10/18 20:00 97.0 100 20 90/60 (70) 96 12/10/18 20:00 106 12/10/18 20:00 Nasal Cannula 4.0 Nasal Cannula 4.0 Nasal Cannula 4.0 Nasal Cannula 4.0 12/10/18 17:51 Nasal Cannula 3.0 Nasal Cannula 3.0 Nasal Cannula 3.0 Nasal Cannula 3.0 12/10/18 16:00 106 12/10/18 16:00 97.9 89 18 138/64 (88) 96 12/10/18 16:00 Nasal Cannula 3.0 Nasal Cannula 4.0 Nasal Cannula 4.0 Nasal Cannula 4.0 Intake and Output 12/11/18 12/12/18 19:00 07:00 Intake Total 935.2667 ml 370 ml Output Total 360 ml 320 ml Balance 575.2667 ml 50 ml Free Water 260 ml IV Total 395.2667 ml Tube Feeding 280 ml 270 ml Other 100 ml Output Urine Total 300 ml 300 ml Drainage Total 60 ml 20 ml # Bowel Movements 1 4 Labs Test 12/10/18 03:35 12/11/18 03:25 12/12/18 03:30 White Blood Count 13.9 K/UL (4.8-10.8) 11.0 K/UL (4.8-10.8) 9.9 K/UL (4.8-10.8) Red Blood Count 2.73 M/UL (4.70-6.10) 2.75 M/UL (4.70-6.10) 2.36 M/UL (4.70-6.10) Hemoglobin 8.5 G/DL (14.2-18.0) 8.6 G/DL (14.2-18.0) 7.3 G/DL (14.2-18.0) Hematocrit 26.3 % (42.0-52.0) 26.7 % (42.0-52.0) 22.7 % (42.0-52.0) Mean Corpuscular Volume 96 FL (80-99) 97 FL (80-99) 96 FL (80-99) Mean Corpuscular Hemoglobin 31.1 PG (27.0-31.0) 31.4 PG (27.0-31.0) 31.1 PG (27.0-31.0) Mean Corpuscular Hemoglobin Concent 32.3 G/DL (32.0-36.0) 32.3 G/DL (32.0-36.0) 32.3 G/DL (32.0-36.0) Red Cell Distribution Width 16.9 % (11.6-14.8) 16.6 % (11.6-14.8) 16.7 % (11.6-14.8) Platelet Count 271 K/UL (150-450) 252 K/UL (150-450) 239 K/UL (150-450) Mean Platelet Volume 6.2 FL (6.5-10.1) 5.9 FL (6.5-10.1) 6.2 FL (6.5-10.1) Neutrophils (%) (Auto) % (45.0-75.0) 84.2 % (45.0-75.0) % (45.0-75.0) Lymphocytes (%) (Auto) % (20.0-45.0) 7.4 % (20.0-45.0) % (20.0-45.0) Monocytes (%) (Auto) % (1.0-10.0) 7.2 % (1.0-10.0) % (1.0-10.0) Eosinophils (%) (Auto) % (0.0-3.0) 0.6 % (0.0-3.0) % (0.0-3.0) Basophils (%) (Auto) % (0.0-2.0) 0.6 % (0.0-2.0) % (0.0-2.0) Differential Total Cells Counted 100 100 Neutrophils % (Manual) 86 % (45-75) 86 % (45-75) Lymphocytes % (Manual) 8 % (20-45) 12 % (20-45) Monocytes % (Manual) 6 % (1-10) 2 % (1-10) Eosinophils % (Manual) 0 % (0-3) 0 % (0-3) Basophils % (Manual) 0 % (0-2) 0 % (0-2) Band Neutrophils 0 % (0-8) 0 % (0-8) Platelet Estimate Adequate Adequate Platelet Morphology Normal Normal Hypochromasia 1+ 1+ Anisocytosis 1+ 1+ Sodium Level 146 MMOL/L (136-145) 145 MMOL/L (136-145) 147 MMOL/L (136-145) Potassium Level 3.8 MMOL/L (3.5-5.1) 3.5 MMOL/L (3.5-5.1) 2.9 MMOL/L (3.5-5.1) Chloride Level 113 MMOL/L (98-107) 113 MMOL/L (98-107) 113 MMOL/L (98-107) Carbon Dioxide Level 23 MMOL/L (21-32) 21 MMOL/L (21-32) 26 MMOL/L (21-32) Anion Gap 10 mmol/L (5-15) 11 mmol/L (5-15) 8 mmol/L (5-15) Blood Urea Nitrogen 7 mg/dL (7-18) 6 mg/dL (7-18) 6 mg/dL (7-18) Creatinine 0.4 MG/DL (0.55-1.30) 0.4 MG/DL (0.55-1.30) 0.4 MG/DL (0.55-1.30) Estimat Glomerular Filtration Rate mL/min (>60) mL/min (>60) mL/min (>60) Glucose Level 118 MG/DL (74-106) 142 MG/DL (74-106) 132 MG/DL (74-106) Calcium Level 7.3 MG/DL (8.5-10.1) 7.5 MG/DL (8.5-10.1) 7.2 MG/DL (8.5-10.1) Phosphorus Level 2.5 MG/DL (2.5-4.9) 2.3 MG/DL (2.5-4.9) 2.8 MG/DL (2.5-4.9) Magnesium Level 1.5 MG/DL (1.8-2.4) 1.8 MG/DL (1.8-2.4) 1.4 MG/DL (1.8-2.4) Total Bilirubin 1.5 MG/DL (0.2-1.0) Direct Bilirubin 0.8 MG/DL (0.0-0.3) Aspartate Amino Transf (AST/SGOT) 16 U/L (15-37) Alanine Aminotransferase (ALT/SGPT) 8 U/L (12-78) Alkaline Phosphatase 218 U/L (46-116) Total Protein 3.7 G/DL (6.4-8.2) Albumin 1.4 G/DL (3.4-5.0) Globulin 2.3 g/dL Albumin/Globulin Ratio 0.6 (1.0-2.7) Digoxin Level 0.4 NG/ML (0.5-2.0) Height (Feet): 5 Height (Inches): 5.00 Weight (Pounds): 165 Objective PE General: WD/WN Cardiovascular: normal peripheral pulses, normal rate, regular rhythm Resp: extubated, no f/c, no events, on nc Abdomen: normal bowel sounds, non tender ++ lap site noted Genitourinary/Rectal: normal genital exam, heme negative stool Extremities: normal range of motion Skin Exam: normal pigmentation 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
--- NOTE | 2018-12-12 15:35 | Infectious Diseases Prog Note ---
Assessment/Plan Assessment/Plan VDRF, s/p extubation 12/08 GIB- 2ry to actively bleeding Duodenal ulcer -12/02 SP exploratory laparotomy. Anterior duodenotomy for control of large posterior duodenal ulcer hemorrhage. closure of duodenotomy. pyloric exclusion with gastrojejunostomy abdominal washout. abdominal drain placement -12/02 SP EGD Shock likely hemorrhagic and septic component- now off presors -12/04 CXR: Suggestion of a slightly worsening vascular congestion -12/03 u/a neg, ucx Neg Bcx Neg -12/02 CXR: Slightly increased bilateral infiltrates Diarrhea CDiff + GI bleed 11/29 Colonscopy : Diverticulosis Sepsis -11/30 CT abd/p: Nonspecific trace free intraperitoneal fluid. No acute abdominal or pelvic process otherwise. Fairly extensive bilateral basilar pulmonary parenchymal consolidation and atelectasis. Bilateral small pleural effusions. Colonic diverticulosis. No evidence of diverticulitis. Gastrostomy. Nonobstructive 3 mm left intrarenal calyceal calculus. Prostatomegaly. Edema of the bilateral left greater than right subcutaneous fat. Fairly extensive chronic appearing bilateral hip degenerative changes, with bilateral joint effusions versus chronic synovial proliferation. Inferior vena cava filter -11/28 BCx Neg u/a no pyuria ucx Neg Pneumonia -12/07 CXR: Patchy airspace disease noted in the perihilar basilar regions. There may be a small left pleural effusion now present -12/03 Sp cx Citrobacter diversus (R Genta,Ancef, Bactrim); MDR P. stuarti ( S Amikacin) -CXR: Patchy bilateral infiltrates versus mixed interstitial alveolar edema noted. -sp cx MRSA, MDR P. stuarti (S Amikacin, Zosyn ; I cefepime; S ertapenem) Afebrile Leukocytosis; recurrent- resolved MRSA bacteremia- suspect 2ry to PNA- r/o endocarditis -11/18 Bcx 2/4 MRSA , 1/4 S. 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 resident Plan: - Continue IV Flagyl #9 (abx d #) for Cdiff given NPO status -Cont IV Amikacin #5/ for MDR PNA -12/09 SP IV Vancomycin #22 -12/03 SP PO Vancomycin #5 (held as pt now is NPO) -12/02 SP Flagyl #4 -11/29 SP Zosyn #8 -11/27 SP Bactrim # -11/23 SP Cefepime # -11/18 SP Levaquin x1 -f/u cx -Monitor CBC/CMP, temperatures -GT care -aspiration precautions -wound care per surgical team -Recommend FLORINA -f/u ucx, Bcx x2, sp cx -GI, Gen Sx f/u Subjective Allergies: Coded Allergies: No Known Allergies (Unverified , 11/18/18) Subjective afebrile Leukocytosis resolved Objective Vital Signs Last 24 Hour Vital Signs Date Time Temp Pulse Resp B/P (MAP) Pulse Ox O2 Delivery O2 Flow Rate FiO2 12/12/18 12:00 97.6 78 20 99/66 (77) 98 12/12/18 12:00 Nasal Cannula 4.0 Nasal Cannula 4.0 Nasal Cannula 4.0 Nasal Cannula 4.0 12/12/18 11:26 102 12/12/18 09:44 80 93/57 12/12/18 09:43 80 12/12/18 08:40 98 Nasal Cannula 2.0 28 12/12/18 08:00 97.7 80 20 93/57 (69) 99 12/12/18 08:00 Nasal Cannula 4.0 Nasal Cannula 4.0 Nasal Cannula 4.0 Nasal Cannula 4.0 12/12/18 07:49 109 12/12/18 04:00 99.0 103 20 110/70 (83) 100 12/12/18 04:00 Nasal Cannula 4.0 Nasal Cannula 4.0 Nasal Cannula 4.0 Nasal Cannula 4.0 12/12/18 03:26 126 12/12/18 00:00 Nasal Cannula 4.0 Nasal Cannula 4.0 Nasal Cannula 4.0 Nasal Cannula 4.0 12/12/18 00:00 98.7 79 24 103/56 (72) 95 12/11/18 23:33 113 12/11/18 20:32 103 90/60 12/11/18 20:00 98.7 103 24 90/60 (70) 100 12/11/18 20:00 Nasal Cannula 4.0 Nasal Cannula 4.0 Nasal Cannula 4.0 Nasal Cannula 4.0 12/11/18 19:12 97 12/11/18 16:00 97.0 118 22 106/62 (77) 98 12/11/18 16:00 130 12/11/18 15:52 Nasal Cannula 4.0 Nasal Cannula 4.0 Nasal Cannula 4.0 Nasal Cannula 4.0 Height (Feet): 5 Height (Inches): 5.00 Weight (Pounds): 165 Objective General Appearance: WD/WN, no apparent distress Lines, tubes and drains: central line HEENT: normocephalic, atraumatic Neck: non-tender, normal alignment Cardiovascular/Chest: normal peripheral pulses, normal rate, regular rhythm Abdomen: normal bowel sounds, non tender Extremities: normal range of motion Skin Exam: normal pigmentation 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 Laboratory Tests Test 12/12/18 03:30 White Blood Count 9.9 K/UL (4.8-10.8) Red Blood Count 2.36 M/UL (4.70-6.10) L Hemoglobin 7.3 G/DL (14.2-18.0) L Hematocrit 22.7 % (42.0-52.0) L Mean Corpuscular Volume 96 FL (80-99) Mean Corpuscular Hemoglobin 31.1 PG (27.0-31.0) H Mean Corpuscular Hemoglobin Concent 32.3 G/DL (32.0-36.0) Red Cell Distribution Width 16.7 % (11.6-14.8) H Platelet Count 239 K/UL (150-450) Mean Platelet Volume 6.2 FL (6.5-10.1) L Neutrophils (%) (Auto) % (45.0-75.0) Lymphocytes (%) (Auto) % (20.0-45.0) Monocytes (%) (Auto) % (1.0-10.0) Eosinophils (%) (Auto) % (0.0-3.0) Basophils (%) (Auto) % (0.0-2.0) Differential Total Cells Counted 100 Neutrophils % (Manual) 86 % (45-75) H Lymphocytes % (Manual) 12 % (20-45) L Monocytes % (Manual) 2 % (1-10) Eosinophils % (Manual) 0 % (0-3) Basophils % (Manual) 0 % (0-2) Band Neutrophils 0 % (0-8) Platelet Estimate Adequate Platelet Morphology Normal Hypochromasia 1+ Anisocytosis 1+ Sodium Level 147 MMOL/L (136-145) H Potassium Level 2.9 MMOL/L (3.5-5.1) L Chloride Level 113 MMOL/L (98-107) H Carbon Dioxide Level 26 MMOL/L (21-32) Anion Gap 8 mmol/L (5-15) Blood Urea Nitrogen 6 mg/dL (7-18) L Creatinine 0.4 MG/DL (0.55-1.30) L Estimat Glomerular Filtration Rate mL/min (>60) Glucose Level 132 MG/DL (74-106) H Calcium Level 7.2 MG/DL (8.5-10.1) L Phosphorus Level 2.8 MG/DL (2.5-4.9) Magnesium Level 1.4 MG/DL (1.8-2.4) L Current Medications Medications (Trade) Dose Ordered Sig/Pauline Route PRN Reason Start Time Stop Time Status Last Admin Dose Admin Acetaminophen (Tylenol) 650 mg Q4H PRN GT T>100.5 12/09/18 17:00 12/22/18 16:59 Amikacin Protocol (Amikacin pharmacy to dose) 1 ea DAILY PRN MISC Per rx protocol 12/10/18 09:00 01/07/19 16:44 Amikacin Sulfate 900 mg/Sodium Chloride 113.6 ml @ 113.6 mls/ hr Q24H IV 12/09/18 18:00 12/16/18 17:59 12/11/18 17:13 Chlorhexidine Gluconate (Marycarmen-Hex 2%) 1 applic DAILY@2000 TOPIC 12/09/18 20:00 12/30/18 19:59 12/11/18 20:33 Dextrose (Dextrose 50%) 25 ml Q30M PRN IV Hypoglycemia 12/09/18 17:30 12/18/18 18:17 Dextrose (Dextrose 50%) 50 ml Q30M PRN IV Hypoglycemia 12/09/18 17:30 12/18/18 18:17 Digoxin (Lanoxin) 0.125 mg DAILY NG 12/10/18 09:00 01/08/19 12:44 12/12/18 09:43 Hydralazine HCl (Apresoline) 10 mg Q4H PRN IV Systolic BP greater than 170 12/09/18 17:00 01/03/19 16:59 Hydrocortisone (Proctosol-HC Cream) 1 applic Q12HR TOPIC 12/09/18 21:00 01/01/19 12:59 12/12/18 09:45 Lactobacillus Acidophilus (Culturelle) 1 tab THREE TIMES A DAY ORAL 12/09/18 18:00 12/29/18 17:59 12/12/18 13:00 Metoclopramide HCl (Reglan) 10 mg EVERY 8 HOURS IVP 12/12/18 14:00 01/11/19 13:59 12/12/18 14:15 Metoprolol Tartrate (Lopressor) 25 mg Q12HR NG 12/11/18 21:00 01/08/19 20:59 12/12/18 09:44 Midazolam HCl (Versed 2mg/2ml vial) 1 mg Q1H PRN IVP SEDATION 12/09/18 17:30 01/01/19 20:29 Midodrine (Pro-Amatine) 2.5 mg THREE TIMES A DAY ORAL 12/11/18 15:00 01/10/19 14:59 12/12/18 13:00 Pantoprazole (Protonix) 40 mg EVERY 12 HOURS IVP 12/09/18 21:00 01/06/19 20:59 12/12/18 09:43 Potassium Chloride 100 ml @ 100 mls/hr Q1HR IVPB 12/12/18 10:00 12/12/18 15:59 12/12/18 15:20 Sodium Hypochlorite (Dakin's Quarter Strength) 1 applic BEDTIME TOPIC 12/12/18 21:00 01/03/19 11:59 Neva Yee M.D. Dec 12, 2018 15:35
[2018-12-12] MEDS: Amikacin 900 MG in NS 110 ML IV SCH (17:37)
--- NOTE | 2018-12-12 18:10 | NUR ---
NURSE NOTES: Telephone report given to [facility] Staff/ Lucia Marquez RN.
--- NOTE | 2018-12-12 18:35 | NUR ---
DISCHARGE PLANNING DISCHARGE ORDER NOTED Patient has been accepted back to; [facility] Bed:28-B Skilled Nurse to Nurse report: [phone]
--- NOTE | 2018-12-12 19:25 | NUR ---
HAND-OFF: Report given to MONA Julian.
--- NOTE | 2018-12-12 19:26 | NUR ---
NURSE NOTES: Received patient from Luh DUNN. Patient is awake and obtunded. Receiving oxygen via Nasal Cannula at 4L/min. G-tube is patent and intact. ANGIE drain is intact and draining. Bradley catheter is patent and draining. Central Line Subclavian TLC is patent and asymptomatic, dressing changed today 12/12. Bed is locked, placed on lowest position, side rails up x3, bed alarm on, awaiting ambulance for discharge. Will continue to monitor.
[2018-12-12] MEDS ORDERED: Dakin's 0.125% Soln (Quarter Strength) 16oz TOPIC SCH (21:00)
[2018-12-12] MEDS: Dyna-Hex 2% Top Sol 2oz TOPIC SCH (21:01)
--- NOTE | 2018-12-12 22:30 | NUR ---
NURSE NOTES: Patient was discharged and picked up by [facility]. All belongings sent with patient.
[2018-12-12] MEDS ORDERED: NS 275ml ONE (23:25)
[2018-12-13] MEDS ORDERED: AMIKIN500 MG/2 M IVPB (05:31)
[2018-12-13] MEDS ORDERED: METRONIDAZOLE500 MG IVPB (06:49)
[2018-12-13] MEDS ORDERED: PROTONIX40 M1 IVP (06:49)
[2018-12-13] MEDS ORDERED: REGLAN10 MG IVP (06:49)
[2018-12-13] MEDS ORDERED: MIDODRINE HCL2.5 MG ORAL (06:49)
[2018-12-13] MEDS ORDERED: DIGOXIN0.125 MG/2 GT (06:49)
[2018-12-13] MEDS ORDERED: PROCTOSOL-HC1 APPLIC TOPIC (06:49)
[2018-12-13] MEDS ORDERED: DAKIN'S1 APPLI1 TOPIC (06:49)
[2018-12-13] MEDS ORDERED: CULTURELLE1 TAB GT (06:49)
[2018-12-13] MEDS ORDERED: HYDRALAZINE HCL10 MG IV (06:49)
--- NOTE | 2018-12-13 08:00 | Progress Note ---
DATE: 12/13/2018 SUBJECTIVE: This is a 73-year-old male patient with sepsis. He is confused, disorganized. He has got no logical plan for his own self-care. He has got altered mental status, confusion, but because of his sepsis and pneumonia with altered mental status. MENTAL STATUS EXAMINATION: This is a 73-year-old male. Appearance is disheveled. Attitude, irritable and agitated. Affect, guarded and restricted. Intellect poor. Mood, depressed and anxious. Motor activity, psychomotor agitation. Attention span is poor. Orientation x2. Speech is low volume, slurred. Thought process, disorganized and illogical. Insight and judgment is poor DIAGNOSIS: Major depressive disorder, mild, recurrent with psychotic features. PLAN: Treat him with medications to stabilize his mood. A 20 minutes of cognitive behavioral therapy to help him identify his automatic negative thoughts and convert his negative thoughts to more positive thoughts to reduce depression, anxiety, and mood lability. Chart reviewed. Discussed with staff. Seen and assessed at bedside. Laith Mason M.D. DR: MILY JOB#: [id number] CC:
--- NOTE | 2018-12-14 22:35 | Discharge Summary ---
Discharge Summary Discharge Summary _ DATE OF ADMISSION: 11/18/2018 DATE OF DISCHARGE: 12/12/2018 DISCHARGED BY: Dr. Gonzalez REASON FOR ADMISSION: 73 years old male with past medical history of dysphagia, G-tube feeding, Parkinson disease, seizure disorder, dementia, COPD, hypertension, depression, osteoarthritis, chronic kidney disease, resident of retirement facility, presented with chief complaint of altered mental status. longterm staff noted that patient was in respiratory distress with increased work of breathing and decreased mentation. No reported fever or chills. No cough or congestion. Patient by himself was unable to provide any history due to his condition. Upon further evaluation in emergency department patient was diagnosed with bilateral pneumonia and sepsis and subsequently admitted to [facility] for further management. CONSULTANTS: key carrier Dr. Sampson pulmonary Dr. Carrasquillo ID specialist Dr. Winter GI specialist Dr. Dallas peer financial counselor Dr. Trinidad business support/oncologist Dr. Giang surgery Dr. Eugene psychiatrist Dr. Mason HOSPITAL COURSE: Patient admitted to [facility]. Patient started on empiric antibiotic as per ID specialist recommendation. Initial chest x-ray revealed patchy infiltrates versus CHF. Venous duplex bilateral lower extremity revealed acute thrombus in the common femoral and superficial femoral and popliteal veins right lower extremity. Recanalized chronic thrombus noted in the left lower extremity. Patient with history of recurrent DVT and was on Lovenox as outpatient. At this time patient started on heparin drip per pharmacy. However, patient was noted to have episode of rectal bleeding. Heparin drip was discontinued due to rectal bleeding. Patient undergone IVC filter placement on 11/21. Patient also undergone transfusion of packed red blood cells. Abdominal x-ray was done to evaluate position of G-tube. G-tube appeared to be within the body of the stomach, no leak noted. Patient subsequently undergone colonoscopy on 11/20, which revealed no evidence of active bleeding. Echocardiogram revealed preserved ejection fraction 50 to 55% with no evidence of wall motion abnormality. Mild left ventricular hypertrophy noted. No evidence of pericardial effusion. Right ventricular systolic pressure of 39 consistent with mild pulmonary hypertension due to severe anemia Initial blood culture revealed Staphylococcal aureus. Urine culture revealed Acinetobacter MDR . ID specialist recommended FLORINA to rule out vegetation since ECHO was a technically difficult study, although no evidence of vegetation was seen. Sputum culture revealed Providencia and MRSA . Repeated blood culture on 11/19 and 11/28 were negative. Stool for C. difficile was positive. On 12/03 repeated urine culture was negative , blood cultures were negative , and sputum culture revealed Citrobacter and Providencia. Unable to do FLORINA due to lack of consent. MRSA bacteremia, however, was likely due to PNA. Construction Plumber closely followed. Patient was followed-up with chest x-ray. Venous duplex of the bilateral upper extremity revealed acute thrombus in the proximal brachial vein left upper extremity ( it was done after IVC filter placement). Hemoglobin and hematocrit continue to trend down. Patient was transfused and then hemoglobin trended down again . Patient undergone repeated colonoscopy on 11/29, which revealed diverticulosis with some blood noted in the left colon. Per GI specialist , bleeding was likely due to diverticulosis. Also noted internal hemorrhoids. GI specialist cleared to restart anticoagulation with Eliquis . However the next day after restarting Eliquis , hemoglobin dropped again and Eliquis was discontinued . Patient was transfused. Patient undergone EGD on December 02 , which revealed finding of the large duodenal bleeding ulcer, status post hemostasis. Subsequently at the same day , patient undergone exploratory laparotomy, anterior duodenostomy for control of large posterior duodenal ulcer hemorrhage, closure of anterior duodenostomy, pyloric exclusion with retrocolic gastrojejunostomy, abdominal washout, abdominal drain placement, abdominal closure. Patient was intubated for surgery and remained intubated until 12/08. Ventilator support and pulmonary toilet provided. Patient was followed-up with ABG and chest x-ray. Patient subsequently was extubated on 12/08 . During this stay of the hospital, patient undergone transfusion of total of 13 units of packed red blood cells and 1 unit of fresh frozen plasma. Patient had anemia of acute blood loss due to GI bleeding. Hemoglobin and hematocrit were closely monitored with goal to keep hemoglobin above 7. Anemia work-up was consistent with anemia of chronic disease. GI prophylaxis provided. Strict aspiration precaution maintained. G-tube feeding provided. Patient was able to tolerate tube feeding. Tube feeding formula provided as per registered dietitian recommendations. Sinemet continued. Seizure precaution maintained. No evidence of seizure activity while in the hospital. Surgical wound care was managed as per surgeon recommendation. Abdominal drain output was closely monitored and still remained significant. Patient presented with multiply pressure injuries, including un-stageable sacral decubitus ulcer. Wound care provided as per surgeon recommendation. Continue wound care at the facility. Placement was arranged to retirement facility for continuation of care. Patient patient will need to complete antibiotic course as per ID specialist recommendations. FINAL DIAGNOSES: Sepsis with Staph aureus bacteremia , likely secondary to pneumonia HCAP with MRSA , Providencia MDR, Citrobacter MDR PNA UTI with ACB MDR C dif colitis Acute DVT RLE and LUE, status post IVC filter in setting of recurrent DVT COPD Rectal bleeding, status post colonoscopy x 2 11/20 and 11/29 s/p EGD with hemostasis 12/02 Large posterior duodenal ulcer Hemorrhagic shock due to large duodenal bleeding ulcer s/p 12/02 exploratory laparotomy, anterior duodenostomy for control of large posterior duodenal ulcerhemorrhage, closure of anterior duodenostomy. Acute respiratory failure - intubated for surgery 12/02 and extubated 12/08 Acute anemia of blood loss ( due to GI bleeding) - requiring multiple blood transfusion Rectal bleeding Dysphagia G-tube Alzheimer's dementia Parkinson disease Seizure disorder Sacral decub/POA with surrounding cellulitis Hypertension Hyperkalemia DISCHARGE MEDICATIONS: See Medication Reconciliation list. DISCHARGE INSTRUCTIONS: Patient was discharged to the retirement facility. Follow up with medical doctor at the facility. Aleida Tellez NP Dec 14, 2018 22:35
--- NOTE | 2018-12-15 12:24 | Consultation ---
Consult Note Consult Note known to me from his previous admission- readmitted less than one day after discharge asked to assist with fluid and lyte management Assessment/Plan UTI (urinary tract infection) Anemia, chronic disease Alzheimer's dementia Parkinson disease h/o C. difficile colitis Perforated duodenal ulcer Laparatomy Op 12/02/18) other: Pneumonia UTI, h/o bacteremia sacral decub dementia HTN Sz disorder Parkinsons severe Anemia Plan transfuse Trial Albumin for low bp as needed midodrine PRN K and Mag and Phos supplement as needed Transfuse as needed roberto carlos khalil discussed Kendall Case RN, MD Dec 15, 2018 12:24
--- NOTE | 2018-12-15 20:48 | Cardiology Report ---
APPROVED REPORT EKG Measurement Heart [id number] 144P26 [id number] Multifocal atrial tachycardia Low voltage QRS Cannot rule out Anterior infarct, age undetermined Abnormal ECG
== END 2018-12-12 23:26 | DRG 853 ==
LOC: EDBD 03:33 → EMR 04:02 → EDBEDREQ 04:29 → 2W 04:33 → EDBEDREQ 05:19 → 2E 17:37 → ICU 11-22 09:08 → 2W 11-22 18:26 → ICU 11-27 17:22 → 2W 12-09 16:35
PROC: 0DJD8ZZ Inspection of Lower Intestinal Tract, Via Natural or Artificial Opening Endoscopic (ICD-10-PCS; 2018-11-20)
PROC: 06H03DZ Insertion of Intraluminal Device into Inferior Vena Cava, Percutaneous Approach (ICD-10-PCS; 2018-11-21)
PROC: 0DJD8ZZ Inspection of Lower Intestinal Tract, Via Natural or Artificial Opening Endoscopic (ICD-10-PCS; 2018-11-29)
PROC: 05H533Z Insertion of Infusion Device into Right Subclavian Vein, Percutaneous Approach (ICD-10-PCS; 2018-11-30)
PROC: 0W3P8ZZ Control Bleeding in Gastrointestinal Tract, Via Natural or Artificial Opening Endoscopic (ICD-10-PCS; 2018-12-02)
PROC: 0D160ZA Bypass Stomach to Jejunum, Open Approach (ICD-10-PCS; 2018-12-02)
PROC: 3E0G8GC Introduction of Other Therapeutic Substance into Upper GI, Via Natural or Artificial Opening Endoscopic (ICD-10-PCS; 2018-12-02)
PROC: 5A1955Z Respiratory Ventilation, Greater than 96 Consecutive Hours (ICD-10-PCS; 2018-12-02)
PROC: 0BH17EZ Insertion of Endotracheal Airway into Trachea, Via Natural or Artificial Opening (ICD-10-PCS; 2018-12-02)
PROC: 0D990ZZ Drainage of Duodenum, Open Approach (ICD-10-PCS; 2018-12-02)
PROC: 0W3P0ZZ Control Bleeding in Gastrointestinal Tract, Open Approach (ICD-10-PCS; principal; 2018-12-02 12:45)
DX: A41.02 Sepsis due to Methicillin resistant Staphylococcus aureus (principal); J96.00 Acute respiratory failure, unspecified whether with hypoxia or hypercapnia; E43 Unspecified severe protein-calorie malnutrition; R57.8 Other shock; J15.212 Pneumonia due to Methicillin resistant Staphylococcus aureus; K57.31 Diverticulosis of large intestine without perforation or abscess with bleeding; K26.0 Acute duodenal ulcer with hemorrhage; N39.0 Urinary tract infection, site not specified; L03.312 Cellulitis of back [any part except buttock and flank]; E87.1 Hypo-osmolality and hyponatremia; F33.3 Major depressive disorder, recurrent, severe with psychotic symptoms; J44.0 Chronic obstructive pulmonary disease with (acute) lower respiratory infection; I82.411 Acute embolism and thrombosis of right femoral vein; I82.431 Acute embolism and thrombosis of right popliteal vein; I82.623 Acute embolism and thrombosis of deep veins of upper extremity, bilateral; Z99.11 Dependence on respirator [ventilator] status; A04.72 Enterocolitis due to Clostridium difficile, not specified as recurrent; D62 Acute posthemorrhagic anemia; G30.9 Alzheimer's disease, unspecified; F02.80 Dementia in other diseases classified elsewhere, unspecified severity, without behavioral disturbance, psychotic disturbance, mood disturbance, and anxiety; L89.150 Pressure ulcer of sacral region, unstageable; L89.621 Pressure ulcer of left heel, stage 1; G20 Parkinson's disease; Z93.1 Gastrostomy status; G40.909 Epilepsy, unspecified, not intractable, without status epilepticus; I12.9 Hypertensive chronic kidney disease with stage 1 through stage 4 chronic kidney disease, or unspecified chronic kidney disease; N18.9 Chronic kidney disease, unspecified; R13.10 Dysphagia, unspecified; I48.91 Unspecified atrial fibrillation; K64.8 Other hemorrhoids; E87.5 Hyperkalemia; D69.6 Thrombocytopenia, unspecified; R00.0 Tachycardia, unspecified; Z68.27 Body mass index [BMI] 27.0-27.9, adult
CPT/HCPCS: 36415; 36600; 71045; 74018; 74177; 76937; 80048; 80053; 80061; 80069; 80150; 80162; 80202; 81003; 82164; 82248; 82270; 82378; 82550; 82553; 82607; 82728; 82746; 82803; 82977; 83036; 83540; 83550; 83605; 83615; 83735; 83880; 83930; 84100; 84300; 84443; 84484; 84550; 85007; 85025; 85044; 85060; 85610; 85651; 85730; 86140; 86850; 86900; 86901; 86920; 86927; 87040; 87070; 87081; 87086; 87181; 87205; 87324; 93005; 93306; 93970; 94002; 94003; 94150; 94640; 94664; 96361; 96365; 96368; 99291; J0171; J2370; J2765; J8499

== ENCOUNTER 2018-12-13 01:03 | Inpatient (IN) | payer MEDICARE, MEDICAID ==
[2018-12-13] VITALS (8 sets, daily range): BP systolic 128–167; BP diastolic 60–85
[~2018-12-13] VITALS: Ht 165.1 cm; Wt 82.6 kg
[~2018-12-13 01:03] MED LIST: ACETAMINOPHEN325 M1 GT; ACETAMINOPHEN325 M1 ORAL; ACETAMINOPHEN500 M3 GT; ARICEPT10 MG GT; ASPIR 8181 MG GT; COLACE100 MG GT; DULCOLAX10 MG RC; FAMOTIDINE20 MG GT; FLEET ENEMA133 ML RECTAL; LACTULOSE20 GM/301 GT; LOPRESSOR GT; LOVENOX10 M1 SUBQ; METOPROLOL TART25 MG GT; MILK OF MA400 MG/51 GT; MIRTAZAPINE15 MG GT; MYLANTA GT; PREDNISONE10 MG GT; PRO-STAT LIQUID30 ML GT; SENNA8.6 M2 GT; SINEMET 25-1001 EAC1 ORAL; VALPROIC A250 MG/5 M GT; VALPROIC ACID250 MG GT; VIT GT; VITAMIN B-1100 MG GT; VITAMIN D400 INTLU GT; XOPENEX0.63 MG/3 HHN
[2018-12-13 01:30] LABS: HEMATOCRIT 26.6 % (42.0-52.0); HEMOGLOBIN 8.5 G/DL (14.2-18.0); MEAN CORPUSCULAR VOLUME 96 FL (80-99); PLATELET COUNT 335 K/UL (150-450); RED BLOOD COUNT 2.77 M/UL (4.70-6.10); RED CELL DISTRIBUTION WIDTH 16.4 % (11.6-14.8); WHITE BLOOD COUNT 16.3 K/UL (4.8-10.8)
--- NOTE | 2018-12-13 01:30 | NUR ---
ED Nurse Note: Patient was BIBA from [facility] due to SOB, respiratory disstress. EMT stated that pt was DC today from [facility]. Patient presented pale on 15 L via nonrebreather mask O2 sat 96%. AAO x0, HR 115. Patient has many preassure ulsers, pictures were taken and uploaded. Blood collected sent down.
[2018-12-13 01:35] LABS: APPEARANCE,URINE CLEAR; BILIRUBIN, URINE 1+ (NEGATIVE); COLOR,URINE BROWN; GLUCOSE, URINE (UA) NEGATIVE (NEGATIVE); KETONES,URINE 1+ (NEGATIVE); LEUKOCYTE ESTERASE ,URINE 2+ (NEGATIVE); NITRITE,URINE POSITIVE (NEGATIVE); PH,URINE 5 (4.5-8.0); PROTEIN,URINE 2+ (NEGATIVE); UROBILINOGEN,URINE NORMAL MG/DL (0.0-1.0)
[2018-12-13 01:49] LABS: ANION GAP 5 mmol/L (5-15); BLOOD UREA NITROGEN 5 mg/dL (7-18); CALCIUM 7.8 MG/DL (8.5-10.1); CARBON DIOXIDE 24 MMOL/L (21-32); CHLORIDE 110 MMOL/L (98-107); CREATININE 0.5 MG/DL (0.55-1.30); POTASSIUM 3.7 MMOL/L (3.5-5.1); SODIUM 139 MMOL/L (136-145)
[2018-12-13 02:01] LABS: ALANINE AMINOTRANSFERASE 10 U/L (12-78); ALBUMIN 1.7 G/DL (3.4-5.0); ALBUMIN/GLOBULIN RATIO 0.6 (1.0-2.7); ALKALINE PHOSPHATASE 327 U/L (46-116); ASPARTATE AMINO TRANSFERASE 19 U/L (15-37); BILIRUBIN,TOTAL 1.8 MG/DL (0.2-1.0); CKMB 1.7 NG/ML (0.0-3.6); CREATINE KINASE 15 U/L (26-308)
[2018-12-13 02:05] LABS: BILIRUBIN,DIRECT 1.3 MG/DL (0.0-0.3)
[2018-12-13] MEDS ORDERED: Metoprolol 5mg/5ml Inj IVP ONE (02:15)
[2018-12-13] MEDS ORDERED: Cefepime HCl 1 GM in D5W 55 ML IVPB ONE (02:45)
--- NOTE | 2018-12-13 04:10 | NUR ---
ED Nurse Note: Patient was admioted to SDU due to SOB, resp disstress. Patient was transfered to the unit via gurney, by ACLS protocol, with all belongings. AAO x0, VSS at this time.
--- NOTE | 2018-12-13 04:25 | NUR ---
NURSE NOTES: Received patient from ED Nurse Mya DUNN. Patient is obtunded and receiving oxygen via nonrebreather mask at 15L/min, saturating at 100%. Heart monitor was placed on patient. G-tube is patent and intact. ANGIE drain is patent and draining. IV site is Subclavian TLC, patent and asymptomatic. Bradley catheter is patent and draining. Bed is locked, placed in lowest position, side rails up x3, bed alarm on. Will continue to monitor.
--- NOTE | 2018-12-13 05:00 | NUR ---
NURSE NOTES: Dr. Gonzalez's office was called for admitting orders, awaiting reply.
[2018-12-13] MEDS ORDERED: AMIKIN500 MG/2 M IVPB (05:31)
--- NOTE | 2018-12-13 06:00 | NUR ---
NURSE NOTES: Called Dr. Gonzalez's office second attempt, awaiting orders.
[2018-12-13] MEDS ORDERED: PROCTOSOL-HC1 APPLIC TOPIC (06:49)
[2018-12-13] MEDS ORDERED: HYDRALAZINE HCL10 MG IV (06:49)
[2018-12-13] MEDS ORDERED: DAKIN'S1 APPLI1 TOPIC (06:49)
[2018-12-13] MEDS ORDERED: METRONIDAZOLE500 MG IVPB (06:49)
[2018-12-13] MEDS ORDERED: REGLAN10 MG IVP (06:49)
[2018-12-13] MEDS ORDERED: PROTONIX40 M1 IVP (06:49)
[2018-12-13] MEDS ORDERED: DIGOXIN0.125 MG/2 GT (06:49)
[2018-12-13] MEDS ORDERED: CULTURELLE1 TAB GT (06:49)
[2018-12-13] MEDS ORDERED: MIDODRINE HCL2.5 MG ORAL (06:49)
--- NOTE | 2018-12-13 07:06 | Emergency Room Report ---
History of Present Illness General Chief Complaint: Dyspnea/Respdistress Source: Patient, Medical Record Present Illness HPI Patient is a 73-year-old male recently discharged from the hospital who presented after increased difficulty with breathing. Patient had been discharged from the hospital several hours ago. Patient was noted to have market increased work of breathing at the nursing facility was sent to. Patient had recent abdominal surgery as well as prior infection for which was on multiple antibiotics. Patient previously been taking amikacin as well as vancomycin due to multidrug-resistant organism. Patient was noted to have multiple medical problems as noted to have diminished oxygen saturation by EMS. Allergies: Coded Allergies: No Known Allergies (Unverified , 11/18/18) Patient History Past Medical History: see triage record Reviewed Nursing Documentation: PMH: Agreed; PSxH: Agreed Nursing Documentation-PMH Hx Cardiac Problems: Yes Hx Hypertension: Yes Hx COPD: Yes Hx Cancer: No Hx Gastrointestinal Problems: Yes Hx Dialysis: Yes - CKD Hx Neurological Problems: Yes Hx Dementia: Yes Hx Parkinson's Disease: Yes Hx Encephalitis: Yes Hx Epilepsy: Yes Hx Memory Loss: Yes Hx Weakness: Yes Hx Fatigue: Yes Review of Systems All Other Systems: limited - by altered mental status Physical Exam Vital Signs Date Time Temp Pulse Resp B/P (MAP) Pulse Ox O2 Delivery O2 Flow Rate FiO2 12/13/18 00:59 97.0 100 30 145/67 (93) 94 Non-Rebreather 15.0 12/13/18 02:20 50 General Appearance: Chronically Ill Head: normocephalic ENT: dry mucus membranes Respiratory: respiratory distress, rhonchi Cardiovascular #1: normal inspection Gastrointestinal: soft, other - elizabeth drain, staple line intact Neurologic: other - aphasic, bilateral upper extremity swelling Skin: Decubitus/Ulcer Procedures Critical Care Time Critical Care Time Patient had a critical medical condition which untreated could potentially result in life or limb threatening injury. Total critical care time excluding procedures approximately 45 minutes. Medical Decision Making Diagnostic Impression: Primary Impression: Respiratory distress Additional Impressions: Dyspnea Pleural effusion ER Course Patient present for shortness of breath. Differential included but was not limited to anemia, pneumonia, pneumothorax, myocardial infarction, pericardial effusion, congestive heart failure, acidosis because of complexity of patient's case laboratory testing and imaging studies were ordered. Patient was noted to have increased respiratory difficulty. He was started on supplemental oxygen. Arterial blood gas showed respiratory alkalosis as well as metabolic acidosis. Patient was started on IV antibiotics.Chest x-ray showed left lung increased density as well as possible effusion with slightly enlarged cardiac size. Patient was started on BiPAP. He was discussed with Abdullahi Gonzalez for inpatient management due to prior admission. Labs Test 12/13/18 01:10 12/13/18 01:15 Urine Color Brown Urine Appearance Clear Urine pH 5 (4.5-8.0) Urine Specific [place] 1.020 (1.005-1.035) Urine Protein 2+ (NEGATIVE) Urine Glucose (UA) Negative (NEGATIVE) Urine Ketones 1+ (NEGATIVE) Urine Blood 1+ (NEGATIVE) Urine Nitrite Positive (NEGATIVE) Urine Bilirubin 1+ (NEGATIVE) Urine Ictotest Negative (NEGATIVE) Urine Urobilinogen Normal MG/DL (0.0-1.0) Urine Leukocyte Esterase 2+ (NEGATIVE) Urine RBC 0-2 /HPF (0 - 0) Urine WBC 2-4 /HPF (0 - 0) Urine Squamous Epithelial Cells Occasional /LPF Urine Amorphous Sediment Moderate /LPF (NONE) Urine Bacteria Moderate /HPF (NONE) Urine Mucus Few /LPF (NONE/OCC) Sodium Level 139 MMOL/L (136-145) Potassium Level 3.7 MMOL/L (3.5-5.1) Chloride Level 110 MMOL/L (98-107) Carbon Dioxide Level 24 MMOL/L (21-32) Anion Gap 5 mmol/L (5-15) Blood Urea Nitrogen 5 mg/dL (7-18) Creatinine 0.5 MG/DL (0.55-1.30) Estimat Glomerular Filtration Rate mL/min (>60) Glucose Level 114 MG/DL (74-106) Lactic Acid Level 1.50 mmol/L (0.4-2.0) Calcium Level 7.8 MG/DL (8.5-10.1) Total Bilirubin 1.8 MG/DL (0.2-1.0) Direct Bilirubin 1.3 MG/DL (0.0-0.3) Aspartate Amino Transf (AST/SGOT) 19 U/L (15-37) Alanine Aminotransferase (ALT/SGPT) 10 U/L (12-78) Alkaline Phosphatase 327 U/L (46-116) Total Creatine Kinase 15 U/L (26-308) Creatine Kinase MB 1.7 NG/ML (0.0-3.6) Creatine Kinase MB Relative Index 11.3 Troponin I 0.042 ng/mL (0.000-0.056) Pro-B-Type Natriuretic Peptide 2993 pg/mL (0-125) Total Protein 4.7 G/DL (6.4-8.2) Albumin 1.7 G/DL (3.4-5.0) Globulin 3.0 g/dL Albumin/Globulin Ratio 0.6 (1.0-2.7) White Blood Count 16.3 K/UL (4.8-10.8) Red Blood Count 2.77 M/UL (4.70-6.10) Hemoglobin 8.5 G/DL (14.2-18.0) Hematocrit 26.6 % (42.0-52.0) Mean Corpuscular Volume 96 FL (80-99) Mean Corpuscular Hemoglobin 30.8 PG (27.0-31.0) Mean Corpuscular Hemoglobin Concent 32.1 G/DL (32.0-36.0) Red Cell Distribution Width 16.4 % (11.6-14.8) Platelet Count 335 K/UL (150-450) Mean Platelet Volume 6.3 FL (6.5-10.1) Neutrophils (%) (Auto) % (45.0-75.0) Lymphocytes (%) (Auto) % (20.0-45.0) Monocytes (%) (Auto) % (1.0-10.0) Eosinophils (%) (Auto) % (0.0-3.0) Basophils (%) (Auto) % (0.0-2.0) Differential Total Cells Counted 100 Neutrophils % (Manual) 89 % (45-75) Lymphocytes % (Manual) 6 % (20-45) Monocytes % (Manual) 4 % (1-10) Eosinophils % (Manual) 1 % (0-3) Basophils % (Manual) 0 % (0-2) Band Neutrophils 0 % (0-8) Platelet Estimate Adequate Platelet Morphology Normal Arterial Blood pH 7.480 (7.350-7.450) Arterial Blood Partial Pressure CO2 26.1 mmHg (35.0-45.0) Arterial Blood Partial Pressure O2 126.0 mmHg (75.0-100.0) Arterial Blood HCO3 19.0 mmol/L (22.0-26.0) Arterial Blood Oxygen Saturation 97.9 % (95-100) Arterial Blood Base Excess -3.5 (-2-2) Blake Test Positive EKG Diagnostic Results Rate: normal Rhythm: NSR ST Segments: no acute changes Last Vital Signs Date Time Temp Pulse Resp B/P (MAP) Pulse Ox O2 Delivery O2 Flow Rate FiO2 12/13/18 04:53 96 21 97 Facial 40 12/13/18 04:30 98.5 151/85 (107) 12/13/18 04:10 15.0 Status: unchanged Disposition: ADMITTED INPATIENT Condition: Stable Referrals: Abdullahi Gonzalez DO (PCP) Quinton Jolly MD Dec 13, 2018 07:06
--- NOTE | 2018-12-13 07:17 | NUR ---
RESPIRATORY NOTE: Received pt. on BIPAP. BIPAP settings are: 10/5, PS 5, rate of 14, FI02 40%. No respiratory distress noted, pt. sP02 @ 94%. BIPAP plugged on red outlet. Will continue to monitor pt.
--- NOTE | 2018-12-13 07:17 | NUR ---
NURSE NOTES: Received report from MONA Marquis. Patient is resting in bed, in stable condition. No s/sx of SOB, breathing is even and unlabored, Bipap are on settings as ordered. Observed no presence pain or discomfort at this time. Bed is in lowest position, brakes engaged. Call light is kept within easy reach. Will continue to monitor patient.
--- NOTE | 2018-12-13 07:17 | NUR ---
HAND-OFF: Report given to Tan DUNN. Patient in stable condition.
[2018-12-13] MEDS ORDERED: Miralax 17gm pkt ORAL PRN (07:30)
[2018-12-13] MEDS ORDERED: Albuterol/Ipratropium 3ml neb HHN PRN (07:30)
[2018-12-13] MEDS ORDERED: Vancomycin 1.25gm Premix IVPB ONE (09:00)
--- NOTE | 2018-12-13 09:00 | NUR ---
NURSE NOTES: MARIO Tellez seen and examined patient. Informed FACETER that patient has GT and currently no feeding. FACETER acknowledged and per FACETER will round and put in orders herself. Noted.
[2018-12-13] MEDS: Heparin 5000 units/ml inj SUBQ SCH ×2 (09:15→21:12)
--- NOTE | 2018-12-13 10:52 | Diagnostic Imaging Report ---
Indication: Dyspnea Comparison: 12/07/2018 A single view chest radiograph was obtained. Findings: Exam is limited by rotation. Bilateral ill-defined densities demonstrated within the lungs especially in the perihilar and basilar regions. The left lung notable for suspected of pleural effusion. Heart is probably enlarged. Patient has been extubated. IMPRESSION: Pulmonary edema versus infiltrates. Study is currently limited as obtained. Suspect a left pleural effusion
--- NOTE | 2018-12-13 10:57 | Consultation ---
History of Present Illness General Date patient seen: Dec 13, 2018 Time patient seen: 09:45 Chief Complaint: Dyspnea/Respdistress Referring physician: Dr Gonzalez Reason for Consultation: resp distress Present Illness HPI 83 years old male with PMH of COPD, HTN, severe anemia, requiring multiple blood transfusion due to GI bleeding , resulting in hemorrhagic shock secondary to gastric duodenal ulcer , status post repair, MDR pneumonia, C. difficile colitis, Parkinson disease, chronic kidney disease, seizure disorder , acute DVT, s/p IVC filter placement, was just [facility]. At the nursing facility, patient was noted to have increased work of breathing. Patient subsequently was sent back for evaluation. Patient initially was placed on 100% nonrebreathing mask, pulse oximetry was 94% . Vital signs revealed tachycardia and tachypnea. ABG was done on nonrebreathing mask and revealed no evidence of acidosis. Patient subsequently was placed on the BiPAP. Laboratory work-up revealed leukocytosis WBC 16.3, hemoglobin 8.5, hematocrit 26.6. Lactic acid 1.5. Stable electrolytes and renal parameters. Total bili 1.8 direct bili 1.3. Troponin - 0.042. ProBNP 2993. Albumin 1.7. Urinalysis revealed evidence of urinary tract infection. Chest x-ray demonstrated pulmonary edema versus infiltrates. Suspected left pleural effusion. Patient subsequently admitted to [facility] for further management. Allergies: Coded Allergies: No Known Allergies (Unverified , 11/18/18) Medication History Scheduled Amikacin Sulfate (Amikin), 900 MG IVPB DAILY, (Reported) Digoxin* (Digoxin*), 0.125 MG GT DAILY, (Reported) Hydrocortisone (Proctosol-Hc), 1 APPLIC TOPIC Q12HR, (Reported) Lactobacillus Rhamnosus GG (Culturelle), 1 TAB GT TID, (Reported) Metoclopramide Hcl* (Reglan*), 10 MG IVP Q8HR, (Reported) Metoprolol Tartrate* (Metoprolol Tartrate*), 12.5 MG GT EVERY 12 HOURS, ( Reported) Metronidazole* (Flagyl*), 500 MG IVPB EVERY 8 HOURS, (Reported) Midodrine* (Proamatine*), 2.5 MG ORAL THREE TIMES A DAY, (Reported) Pantoprazole* (Protonix*), 40 MG IVP EVERY 12 HOURS, (Reported) Sodium Hypochlorite (Dakin's), Unknown Dose TOPIC HS, (Reported) Scheduled PRN Acetaminophen* (Acetaminophen 325MG Tablet*), 650 MG GT Q4H PRN for Mild Pain ( Pain Scale 1-3), (Reported) Hydralazine Hcl* (Hydralazine Hcl*), 10 MG IV Q4HR PRN for For High Blood Pressure, (Reported) Discontinued Medications Acetaminophen* (Acetaminophen Extra Strength*), 1,000 MG GT Q4HR PRN for Moderate Pain (Pain Scale 4-6), (Reported) Discontinued Reason: MD discontinued med Acetaminophen* (Acetaminophen 325MG Tablet*), 650 MG ORAL Q4H PRN for FEVER, ( Reported) Discontinued Reason: MD discontinued med Amino Acids/Protein Hydrolys (Pro-Stat Liquid), 30 ML GT TWICE A DAY, (Reported) Discontinued Reason: MD discontinued med Patient History History Provided By: Medical Record Healthcare decision maker Resuscitation status Full Code Advanced Directive on File Past Medical/Surgical History Past Medical/Surgical History: (1) C. difficile colitis (2) Lower GI bleed (3) Hemorrhagic shocks (4) Decubitus skin ulcer (5) Acute DVT (deep venous thrombosis) (6) COPD (chronic obstructive pulmonary disease) (7) Alzheimer's dementia (8) Parkinson disease (9) Seizures (10) Feeding by G-tube (11) Perforated duodenal ulcer (12) S/P insertion of IVC (inferior vena caval) filter (13) Status post exploratory laparotomy Review of Systems ROS Narrative Review of system is unavailable due to patient mental status Physical Exam General Appearance: no apparent distress, other - chronically ill looking male, awake, but poorly responsive HEENT: normocephalic, atraumatic, anicteric, other - BiPAP mask on 02/28 -FiO2 40% Neck: non-tender Respiratory/Chest: no accessory muscle use, other - few scattered rhonchi Cardiovascular/Chest: tachycardia - with frequent PAC Abdomen: normal bowel sounds, non tender, soft, other - abdominal incisiion with carmel RACHAEL, clean, dry, intact, ANGIE drain with dark greenish brownish secretions ; GT with TF infusing Genitourinary/Rectal: grewal Extremities: no calf tenderness, no edema, no cyanosis Skin Exam: warm/dry Neurologic: abnormal gait, other - awake. poorly responsive Musculoskeletal: atrophy - BLE Last 24 Hour Vital Signs Date Time Temp Pulse Resp B/P (MAP) Pulse Ox O2 Delivery O2 Flow Rate FiO2 12/13/18 08:42 90 26 95 Facial 40 12/13/18 08:00 40 12/13/18 08:00 99.2 108 19 129/82 (98) 95 12/13/18 07:15 72 20 94 Facial 40 12/13/18 04:53 96 21 97 Facial 40 12/13/18 04:49 Bi-pap 12/13/18 04:30 98.5 125 19 151/85 (107) 100 12/13/18 04:10 98.6 115 31 135/67 99 Bi-pap 15.0 40 12/13/18 04:10 98.6 125 31 135/67 99 Bi-pap 15.0 40 12/13/18 03:14 98.6 125 31 167/78 99 Bi-pap 40 12/13/18 03:04 127 31 99 Bi-Pap 50 12/13/18 02:20 127 31 99 Facial 50 12/13/18 01:30 115 24 Non-Rebreather 15.0 12/13/18 01:14 99.3 100 24 140/62 99 Non-Rebreather 15.0 12/13/18 00:59 97.0 100 30 145/67 (93) 94 Non-Rebreather 15.0 Intake and Output 12/12/18 12/13/18 19:00 07:00 Output Total 500 ml Balance -500 ml Output Urine Total 500 ml # Bowel Movements 1 1 Laboratory Tests Test 12/13/18 01:10 12/13/18 01:15 Urine Color Brown Urine Appearance Clear Urine pH 5 (4.5-8.0) Urine Specific [place] 1.020 (1.005-1.035) Urine Protein 2+ (NEGATIVE) H Urine Glucose (UA) Negative (NEGATIVE) Urine Ketones 1+ (NEGATIVE) H Urine Blood 1+ (NEGATIVE) H Urine Nitrite Positive (NEGATIVE) H Urine Bilirubin 1+ (NEGATIVE) H Urine Ictotest Negative (NEGATIVE) Urine Urobilinogen Normal MG/DL (0.0-1.0) Urine Leukocyte Esterase 2+ (NEGATIVE) H Urine RBC 0-2 /HPF (0 - 0) H Urine WBC 2-4 /HPF (0 - 0) Urine Squamous Epithelial Cells Occasional /LPF Urine Amorphous Sediment Moderate /LPF (NONE) H Urine Bacteria Moderate /HPF (NONE) H Urine Mucus Few /LPF (NONE/OCC) H Sodium Level 139 MMOL/L (136-145) Potassium Level 3.7 MMOL/L (3.5-5.1) Chloride Level 110 MMOL/L (98-107) H Carbon Dioxide Level 24 MMOL/L (21-32) Anion Gap 5 mmol/L (5-15) Blood Urea Nitrogen 5 mg/dL (7-18) L Creatinine 0.5 MG/DL (0.55-1.30) L Estimat Glomerular Filtration Rate mL/min (>60) Glucose Level 114 MG/DL (74-106) H Lactic Acid Level 1.50 mmol/L (0.4-2.0) Calcium Level 7.8 MG/DL (8.5-10.1) L Total Bilirubin 1.8 MG/DL (0.2-1.0) H Direct Bilirubin 1.3 MG/DL (0.0-0.3) H Aspartate Amino Transf (AST/SGOT) 19 U/L (15-37) Alanine Aminotransferase (ALT/SGPT) 10 U/L (12-78) L Alkaline Phosphatase 327 U/L (46-116) H Total Creatine Kinase 15 U/L (26-308) L Creatine Kinase MB 1.7 NG/ML (0.0-3.6) Creatine Kinase MB Relative Index 11.3 Troponin I 0.042 ng/mL (0.000-0.056) Pro-B-Type Natriuretic Peptide 2993 pg/mL (0-125) H Total Protein 4.7 G/DL (6.4-8.2) L Albumin 1.7 G/DL (3.4-5.0) L Globulin 3.0 g/dL Albumin/Globulin Ratio 0.6 (1.0-2.7) L White Blood Count 16.3 K/UL (4.8-10.8) #H Red Blood Count 2.77 M/UL (4.70-6.10) L Hemoglobin 8.5 G/DL (14.2-18.0) L Hematocrit 26.6 % (42.0-52.0) L Mean Corpuscular Volume 96 FL (80-99) Mean Corpuscular Hemoglobin 30.8 PG (27.0-31.0) Mean Corpuscular Hemoglobin Concent 32.1 G/DL (32.0-36.0) Red Cell Distribution Width 16.4 % (11.6-14.8) H Platelet Count 335 K/UL (150-450) Mean Platelet Volume 6.3 FL (6.5-10.1) L Neutrophils (%) (Auto) % (45.0-75.0) Lymphocytes (%) (Auto) % (20.0-45.0) Monocytes (%) (Auto) % (1.0-10.0) Eosinophils (%) (Auto) % (0.0-3.0) Basophils (%) (Auto) % (0.0-2.0) Differential Total Cells Counted 100 Neutrophils % (Manual) 89 % (45-75) H Lymphocytes % (Manual) 6 % (20-45) L Monocytes % (Manual) 4 % (1-10) Eosinophils % (Manual) 1 % (0-3) Basophils % (Manual) 0 % (0-2) Band Neutrophils 0 % (0-8) Platelet Estimate Adequate Platelet Morphology Normal Arterial Blood pH 7.480 (7.350-7.450) Arterial Blood Partial Pressure CO2 26.1 mmHg (35.0-45.0) L Arterial Blood Partial Pressure O2 126.0 mmHg (75.0-100.0) H Arterial Blood HCO3 19.0 mmol/L (22.0-26.0) L Arterial Blood Oxygen Saturation 97.9 % (95-100) Arterial Blood Base Excess -3.5 (-2-2) L Blake Test Positive Microbiology Date/Time Source Procedure Growth Status 12/13/18 01:00 Rectum Received Height (Feet): 5 Height (Inches): 5.00 Weight (Pounds): 180 Medications Current Medications Medications (Trade) Dose Ordered Sig/Pauline Route PRN Reason Start Time Stop Time Status Last Admin Dose Admin Acetaminophen (Tylenol) 650 mg Q4H PRN ORAL T>100.5 12/13/18 07:30 01/12/19 07:29 Albuterol/ Ipratropium (Albuterol/ Ipratropium) 3 ml Q4H PRN HHN Shortness of Breath 12/13/18 07:30 12/18/18 07:29 Amikacin Sulfate 900 mg/Sodium Chloride 113.6 ml @ 113.6 mls/ hr Q24H IV 12/13/18 18:00 12/20/18 17:59 Cefepime HCl 2 gm/ Dextrose 110 ml @ 220 mls/hr EVERY 12 HOURS IV 12/13/18 15:00 12/20/18 14:59 Dextrose (Dextrose 50%) 25 ml Q30M PRN IV Hypoglycemia 12/13/18 07:30 01/12/19 07:29 Dextrose (Dextrose 50%) 50 ml Q30M PRN IV Hypoglycemia 12/13/18 07:30 01/12/19 07:29 Heparin Sodium (Porcine) (Heparin 5000 units/ml) 5,000 units EVERY 12 HOURS SUBQ 12/13/18 09:00 01/12/19 08:59 12/13/18 09:15 Metronidazole 100 ml @ 100 mls/hr Q8HR IVPB 12/13/18 09:00 12/20/18 08:59 12/13/18 09:13 Morphine Sulfate (Morphine Sulfate) 2 mg EVERY 4 HOURS PRN IVP Severe Pain (Pain Scale 7-10) 12/13/18 07:30 12/20/18 07:29 Ondansetron HCl (Zofran) 4 mg Q6H PRN IVP Nausea & Vomiting 12/13/18 07:30 01/12/19 07:29 Polyethylene Glycol (Miralax) 17 gm DAILYPRN PRN ORAL Constipation 12/13/18 07:30 01/12/19 07:29 Vancomycin HCl (Vanco rx to dose) 1 ea DAILY PRN MISC . 12/13/18 07:45 01/12/19 07:44 Vancomycin HCl 1 gm/Dextrose 275 ml @ 183.708 mls/hr Q12HR IVPB 12/13/18 21:00 12/18/18 20:59 Assessment/Plan Assessment/Plan: ASSESSMENT acute respiratory failure, requiring BiPAP possible sepsis ( leukocytosis, tachycardia,evidence of infection) probably UTI MDR PNA C dif colitis anemia recent hx of hemorrhagic shock due to large duodenal ulcer s/p repair of duodenal ulcer COPD HTN Protein calorie malnutrition PLAN OF CARE [facility] BiPAP, titrate settings prn wean as tolerated fup with CXR and ABG in am continue abx that pt was on dc ( due to MDR PNA, C dif colitis) and Lactobacilli reculture ID consult pending start GT feeding with strict aspiration precautions monitor TF tolerance surgical wound clean , [employer]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
--- NOTE | 2018-12-13 11:22 | NUR ---
RD ASSESSMENT & RECOMMENDATIONS SEE CARE ACTIVITY FOR COMPLETE ASSESSMENT DAILY ESTIMATED NEEDS: Needs based on Wounds, Pulmonary, sepsis, 60.5kg 25-35 kcals/kg 8270-7525 total kcals 1.25-2 g protein/kg 76-121 g total protein 25-30 mL/kg 9627-7381 total fluid mLs NUTRITION DIAGNOSIS: 1) Increased kcal and pro needs r/t wound healing as evidenced by non-blanchable erythema at R elbow, full thickness sacral pressure injury, r lateral malleolus maroon with fluctuance as per recent admission WC eval, new eval is pending. 2) Swallowing difficulty R/T dysphagia as evidenced by pt PEG dep. CURRENT TF:NPO ENTERAL NUTRITION RECOMMENDATIONS: Vital AF 1.2 @ 60ml/hr x24 hrs to provide 1440ml, 1728 kcal, 108g pro, 1168ml free H2O - Rec Vital AF for GI tolerance: s/p recent ex lap, duodenotomy - As medically appropriate, initiate Vital AF 1.2 @ 20ml/hr x 6 hrs - Increase TF SLOWLY by 5ml q 4-6 hrs to goal rate - Flush per MD/ HOB over 30 degrees ADDITIONAL RECOMMENDATIONS: 1) Per SNF record in October 2018: 5'6" ht, 133 lbs wt -> pt currently edematous + on P200 mattress 2) Wound care: Add YOLI BID via GT + VIT C 250mg BID 3) Monitor BGs, consider hypoglycemics prn/ niss 4) Monitor lytes, replete as needed 5) Monitor TF tolerance closely, consider prokinetics w/ residuals - Reglan was added on 12/12 prior to DC, now off the med list post readmission
[2018-12-13] MEDS: Morphine Sulfate 2mg/ml Inj(IV/IM USE ONLY) IVP PRN (11:54)
[2018-12-13] MEDS: Cefepime HCl 2 GM in D5W 110 ML IV SCH (14:22)
--- NOTE | 2018-12-13 14:30 | Cardiac Electrophysiology PN ---
Assessment/Plan Assessment/Plan 1. Post op atrial fib with RVR 170s. Resume Dig 0.125 PEG daily and Lopressor 25 GT bid In SR with frequent PAC and PVC. 2. S/P Septic and hemorrhagic shock . Off pressors . Echo EF 55% 3. Acute right leg DVT and Bilateral UE DVT. S/P IVC filter . Off Eliquis for severe anemia and GI bleed 4. Staph aureous bacteremia. On Abx per Dr Yee FLORINA pending consent 5. Parkinsonism. 6. COPD. 7. UTI. 8. Severe anemia and rectal bleed. S/P Colonoscopy on 11/20/18 and 11/29/18 and transfusion No obvious source. S/P EGD by Dr Dallas and Anterior duodenostomy for control of large posterior duodenal ulcer hemorrhage by Dr Eugene on 12/02/18 9. Seizure disorder. 10. S/P PEG 11. Respiratory failure, extubated 12/08/18. On BIPA now EHSAN DUNN and Dr. Eugene Subjective Subjective Was DCed but brought back after 3 hours due to respiratory failure Objective Last 24 Hour Vital Signs Date Time Temp Pulse Resp B/P (MAP) Pulse Ox O2 Delivery O2 Flow Rate FiO2 12/13/18 13:28 89 21 95 Facial 40 12/13/18 12:00 116 12/13/18 12:00 99.0 109 19 153/79 (103) 99 12/13/18 12:00 40 12/13/18 12:00 Bi-pap 12/13/18 11:16 70 21 94 Facial 40 12/13/18 08:42 90 26 95 Facial 40 12/13/18 08:00 116 12/13/18 08:00 40 12/13/18 08:00 99.2 108 19 129/82 (98) 95 12/13/18 08:00 Bi-pap 12/13/18 07:15 72 20 94 Facial 40 12/13/18 04:53 96 21 97 Facial 40 12/13/18 04:49 Bi-pap 12/13/18 04:30 98.5 125 19 151/85 (107) 100 12/13/18 04:10 98.6 115 31 135/67 99 Bi-pap 15.0 40 12/13/18 04:10 98.6 125 31 135/67 99 Bi-pap 15.0 40 12/13/18 03:14 98.6 125 31 167/78 99 Bi-pap 40 12/13/18 03:04 127 31 99 Bi-Pap 50 12/13/18 02:20 127 31 99 Facial 50 12/13/18 01:30 115 24 Non-Rebreather 15.0 12/13/18 01:14 99.3 100 24 140/62 99 Non-Rebreather 15.0 12/13/18 00:59 97.0 100 30 145/67 (93) 94 Non-Rebreather 15.0 Intake and Output 12/12/18 12/13/18 19:00 07:00 Output Total 500 ml Balance -500 ml Output Urine Total 500 ml # Bowel Movements 1 1 Laboratory Tests Test 12/13/18 01:10 12/13/18 01:15 Urine Color Brown Urine Appearance Clear Urine pH 5 (4.5-8.0) Urine Specific [place] 1.020 (1.005-1.035) Urine Protein 2+ (NEGATIVE) H Urine Glucose (UA) Negative (NEGATIVE) Urine Ketones 1+ (NEGATIVE) H Urine Blood 1+ (NEGATIVE) H Urine Nitrite Positive (NEGATIVE) H Urine Bilirubin 1+ (NEGATIVE) H Urine Ictotest Negative (NEGATIVE) Urine Urobilinogen Normal MG/DL (0.0-1.0) Urine Leukocyte Esterase 2+ (NEGATIVE) H Urine RBC 0-2 /HPF (0 - 0) H Urine WBC 2-4 /HPF (0 - 0) Urine Squamous Epithelial Cells Occasional /LPF Urine Amorphous Sediment Moderate /LPF (NONE) H Urine Bacteria Moderate /HPF (NONE) H Urine Mucus Few /LPF (NONE/OCC) H Sodium Level 139 MMOL/L (136-145) Potassium Level 3.7 MMOL/L (3.5-5.1) Chloride Level 110 MMOL/L (98-107) H Carbon Dioxide Level 24 MMOL/L (21-32) Anion Gap 5 mmol/L (5-15) Blood Urea Nitrogen 5 mg/dL (7-18) L Creatinine 0.5 MG/DL (0.55-1.30) L Estimat Glomerular Filtration Rate mL/min (>60) Glucose Level 114 MG/DL (74-106) H Lactic Acid Level 1.50 mmol/L (0.4-2.0) Calcium Level 7.8 MG/DL (8.5-10.1) L Total Bilirubin 1.8 MG/DL (0.2-1.0) H Direct Bilirubin 1.3 MG/DL (0.0-0.3) H Aspartate Amino Transf (AST/SGOT) 19 U/L (15-37) Alanine Aminotransferase (ALT/SGPT) 10 U/L (12-78) L Alkaline Phosphatase 327 U/L (46-116) H Total Creatine Kinase 15 U/L (26-308) L Creatine Kinase MB 1.7 NG/ML (0.0-3.6) Creatine Kinase MB Relative Index 11.3 Troponin I 0.042 ng/mL (0.000-0.056) Pro-B-Type Natriuretic Peptide 2993 pg/mL (0-125) H Total Protein 4.7 G/DL (6.4-8.2) L Albumin 1.7 G/DL (3.4-5.0) L Globulin 3.0 g/dL Albumin/Globulin Ratio 0.6 (1.0-2.7) L White Blood Count 16.3 K/UL (4.8-10.8) #H Red Blood Count 2.77 M/UL (4.70-6.10) L Hemoglobin 8.5 G/DL (14.2-18.0) L Hematocrit 26.6 % (42.0-52.0) L Mean Corpuscular Volume 96 FL (80-99) Mean Corpuscular Hemoglobin 30.8 PG (27.0-31.0) Mean Corpuscular Hemoglobin Concent 32.1 G/DL (32.0-36.0) Red Cell Distribution Width 16.4 % (11.6-14.8) H Platelet Count 335 K/UL (150-450) Mean Platelet Volume 6.3 FL (6.5-10.1) L Neutrophils (%) (Auto) % (45.0-75.0) Lymphocytes (%) (Auto) % (20.0-45.0) Monocytes (%) (Auto) % (1.0-10.0) Eosinophils (%) (Auto) % (0.0-3.0) Basophils (%) (Auto) % (0.0-2.0) Differential Total Cells Counted 100 Neutrophils % (Manual) 89 % (45-75) H Lymphocytes % (Manual) 6 % (20-45) L Monocytes % (Manual) 4 % (1-10) Eosinophils % (Manual) 1 % (0-3) Basophils % (Manual) 0 % (0-2) Band Neutrophils 0 % (0-8) Platelet Estimate Adequate Platelet Morphology Normal Arterial Blood pH 7.480 (7.350-7.450) Arterial Blood Partial Pressure CO2 26.1 mmHg (35.0-45.0) L Arterial Blood Partial Pressure O2 126.0 mmHg (75.0-100.0) H Arterial Blood HCO3 19.0 mmol/L (22.0-26.0) L Arterial Blood Oxygen Saturation 97.9 % (95-100) Arterial Blood Base Excess -3.5 (-2-2) L Blake Test Positive Microbiology Date/Time Source Procedure Growth Status 12/13/18 01:00 Rectum Received Objective HEAD AND NECK: No JVD LUNGS: Decreased breath sounds. CARDIOVASCULAR: Regular S1 and S2 with no gallop . ABDOMEN: Soft. G-tube intact. S/P Laparatomy with ANGIE drain EXTREMITIES: Upper extremity and LE edema. Earl Washington MD Dec 13, 2018 14:30
--- NOTE | 2018-12-13 14:55 | NUR ---
NURSE NOTES: Dr. Washington seen and examined patient at bedside. Made aware of sinus tachycardia heart rate 110 bpm to 120 bpm. MD acknowledged. Continued metoprolol 25 mg GT BID, Digoxin 0.125 mg GT QD, Digoxin level tomorrow AM. Orders entered, noted, and carried out. Will continue to monitor patient.
[2018-12-13] MEDS: Lactobacillus-GG tablet GT SCH (17:12)
[2018-12-13] MEDS: Amikacin 900 MG in NS 110 ML IV SCH (17:12)
--- NOTE | 2018-12-13 17:31 | Consultation ---
History of Present Illness General Chief Complaint: Dyspnea/Respdistress Referring physician: Dr Gonzalez Reason for Consultation: resp distress Present Illness Allergies: Coded Allergies: No Known Allergies (Unverified , 11/18/18) Medication History Scheduled Amikacin Sulfate (Amikin), 900 MG IVPB DAILY, (Reported) Digoxin* (Digoxin*), 0.125 MG GT DAILY, (Reported) Hydrocortisone (Proctosol-Hc), 1 APPLIC TOPIC Q12HR, (Reported) Lactobacillus Rhamnosus GG (Culturelle), 1 TAB GT TID, (Reported) Metoclopramide Hcl* (Reglan*), 10 MG IVP Q8HR, (Reported) Metoprolol Tartrate* (Metoprolol Tartrate*), 12.5 MG GT EVERY 12 HOURS, ( Reported) Metronidazole* (Flagyl*), 500 MG IVPB EVERY 8 HOURS, (Reported) Midodrine* (Proamatine*), 2.5 MG ORAL THREE TIMES A DAY, (Reported) Pantoprazole* (Protonix*), 40 MG IVP EVERY 12 HOURS, (Reported) Sodium Hypochlorite (Dakin's), Unknown Dose TOPIC HS, (Reported) Scheduled PRN Acetaminophen* (Acetaminophen 325MG Tablet*), 650 MG GT Q4H PRN for Mild Pain ( Pain Scale 1-3), (Reported) Hydralazine Hcl* (Hydralazine Hcl*), 10 MG IV Q4HR PRN for For High Blood Pressure, (Reported) Discontinued Medications Acetaminophen* (Acetaminophen Extra Strength*), 1,000 MG GT Q4HR PRN for Moderate Pain (Pain Scale 4-6), (Reported) Discontinued Reason: MD discontinued med Acetaminophen* (Acetaminophen 325MG Tablet*), 650 MG ORAL Q4H PRN for FEVER, ( Reported) Discontinued Reason: MD discontinued med Amino Acids/Protein Hydrolys (Pro-Stat Liquid), 30 ML GT TWICE A DAY, (Reported) Discontinued Reason: MD discontinued med Patient History Healthcare decision maker Resuscitation status Full Code Advanced Directive on File Physical Exam Last 24 Hour Vital Signs Date Time Temp Pulse Resp B/P (MAP) Pulse Ox O2 Delivery O2 Flow Rate FiO2 12/13/18 16:58 96 21 100 Facial 40 12/13/18 16:00 Bi-pap 12/13/18 16:00 40 12/13/18 15:08 95 21 100 Facial 40 12/13/18 13:28 89 21 95 Facial 40 12/13/18 12:00 116 12/13/18 12:00 99.0 109 19 153/79 (103) 99 12/13/18 12:00 40 12/13/18 12:00 Bi-pap 12/13/18 11:16 70 21 94 Facial 40 12/13/18 08:42 90 26 95 Facial 40 12/13/18 08:00 116 12/13/18 08:00 40 12/13/18 08:00 99.2 108 19 129/82 (98) 95 12/13/18 08:00 Bi-pap 12/13/18 07:15 72 20 94 Facial 40 12/13/18 04:53 96 21 97 Facial 40 12/13/18 04:49 Bi-pap 12/13/18 04:30 98.5 125 19 151/85 (107) 100 12/13/18 04:10 98.6 115 31 135/67 99 Bi-pap 15.0 40 12/13/18 04:10 98.6 125 31 135/67 99 Bi-pap 15.0 40 12/13/18 03:14 98.6 125 31 167/78 99 Bi-pap 40 12/13/18 03:04 127 31 99 Bi-Pap 50 12/13/18 02:20 127 31 99 Facial 50 12/13/18 01:30 115 24 Non-Rebreather 15.0 12/13/18 01:14 99.3 100 24 140/62 99 Non-Rebreather 15.0 12/13/18 00:59 97.0 100 30 145/67 (93) 94 Non-Rebreather 15.0 Intake and Output 12/12/18 12/13/18 19:00 07:00 Output Total 500 ml Balance -500 ml Output Urine Total 500 ml # Bowel Movements 1 1 Laboratory Tests Test 12/13/18 01:10 12/13/18 01:15 Urine Color Brown Urine Appearance Clear Urine pH 5 (4.5-8.0) Urine Specific [place] 1.020 (1.005-1.035) Urine Protein 2+ (NEGATIVE) H Urine Glucose (UA) Negative (NEGATIVE) Urine Ketones 1+ (NEGATIVE) H Urine Blood 1+ (NEGATIVE) H Urine Nitrite Positive (NEGATIVE) H Urine Bilirubin 1+ (NEGATIVE) H Urine Ictotest Negative (NEGATIVE) Urine Urobilinogen Normal MG/DL (0.0-1.0) Urine Leukocyte Esterase 2+ (NEGATIVE) H Urine RBC 0-2 /HPF (0 - 0) H Urine WBC 2-4 /HPF (0 - 0) Urine Squamous Epithelial Cells Occasional /LPF Urine Amorphous Sediment Moderate /LPF (NONE) H Urine Bacteria Moderate /HPF (NONE) H Urine Mucus Few /LPF (NONE/OCC) H Sodium Level 139 MMOL/L (136-145) Potassium Level 3.7 MMOL/L (3.5-5.1) Chloride Level 110 MMOL/L (98-107) H Carbon Dioxide Level 24 MMOL/L (21-32) Anion Gap 5 mmol/L (5-15) Blood Urea Nitrogen 5 mg/dL (7-18) L Creatinine 0.5 MG/DL (0.55-1.30) L Estimat Glomerular Filtration Rate mL/min (>60) Glucose Level 114 MG/DL (74-106) H Lactic Acid Level 1.50 mmol/L (0.4-2.0) Calcium Level 7.8 MG/DL (8.5-10.1) L Total Bilirubin 1.8 MG/DL (0.2-1.0) H Direct Bilirubin 1.3 MG/DL (0.0-0.3) H Aspartate Amino Transf (AST/SGOT) 19 U/L (15-37) Alanine Aminotransferase (ALT/SGPT) 10 U/L (12-78) L Alkaline Phosphatase 327 U/L (46-116) H Total Creatine Kinase 15 U/L (26-308) L Creatine Kinase MB 1.7 NG/ML (0.0-3.6) Creatine Kinase MB Relative Index 11.3 Troponin I 0.042 ng/mL (0.000-0.056) Pro-B-Type Natriuretic Peptide 2993 pg/mL (0-125) H Total Protein 4.7 G/DL (6.4-8.2) L Albumin 1.7 G/DL (3.4-5.0) L Globulin 3.0 g/dL Albumin/Globulin Ratio 0.6 (1.0-2.7) L White Blood Count 16.3 K/UL (4.8-10.8) #H Red Blood Count 2.77 M/UL (4.70-6.10) L Hemoglobin 8.5 G/DL (14.2-18.0) L Hematocrit 26.6 % (42.0-52.0) L Mean Corpuscular Volume 96 FL (80-99) Mean Corpuscular Hemoglobin 30.8 PG (27.0-31.0) Mean Corpuscular Hemoglobin Concent 32.1 G/DL (32.0-36.0) Red Cell Distribution Width 16.4 % (11.6-14.8) H Platelet Count 335 K/UL (150-450) Mean Platelet Volume 6.3 FL (6.5-10.1) L Neutrophils (%) (Auto) % (45.0-75.0) Lymphocytes (%) (Auto) % (20.0-45.0) Monocytes (%) (Auto) % (1.0-10.0) Eosinophils (%) (Auto) % (0.0-3.0) Basophils (%) (Auto) % (0.0-2.0) Differential Total Cells Counted 100 Neutrophils % (Manual) 89 % (45-75) H Lymphocytes % (Manual) 6 % (20-45) L Monocytes % (Manual) 4 % (1-10) Eosinophils % (Manual) 1 % (0-3) Basophils % (Manual) 0 % (0-2) Band Neutrophils 0 % (0-8) Platelet Estimate Adequate Platelet Morphology Normal Arterial Blood pH 7.480 (7.350-7.450) Arterial Blood Partial Pressure CO2 26.1 mmHg (35.0-45.0) L Arterial Blood Partial Pressure O2 126.0 mmHg (75.0-100.0) H Arterial Blood HCO3 19.0 mmol/L (22.0-26.0) L Arterial Blood Oxygen Saturation 97.9 % (95-100) Arterial Blood Base Excess -3.5 (-2-2) L Blake Test Positive Microbiology Date/Time Source Procedure Growth Status 12/13/18 01:00 Rectum Received Height (Feet): 5 Height (Inches): 5.00 Weight (Pounds): 180 Medications Current Medications Medications (Trade) Dose Ordered Sig/Pauline Route PRN Reason Start Time Stop Time Status Last Admin Dose Admin Acetaminophen (Tylenol) 650 mg Q4H PRN ORAL T>100.5 12/13/18 07:30 01/12/19 07:29 Albuterol/ Ipratropium (Albuterol/ Ipratropium) 3 ml Q4H PRN HHN Shortness of Breath 12/13/18 07:30 12/18/18 07:29 Amikacin Sulfate 900 mg/Sodium Chloride 113.6 ml @ 113.6 mls/ hr Q24H IV 12/13/18 18:00 12/20/18 17:59 12/13/18 17:12 Cefepime HCl 2 gm/ Dextrose 110 ml @ 220 mls/hr EVERY 12 HOURS IV 12/13/18 15:00 12/20/18 14:59 12/13/18 14:22 Dextrose (Dextrose 50%) 25 ml Q30M PRN IV Hypoglycemia 12/13/18 07:30 01/12/19 07:29 Dextrose (Dextrose 50%) 50 ml Q30M PRN IV Hypoglycemia 12/13/18 07:30 01/12/19 07:29 Digoxin (Lanoxin) 0.125 mg DAILY GT 12/14/18 09:00 01/13/19 08:59 Heparin Sodium (Porcine) (Heparin 5000 units/ml) 5,000 units EVERY 12 HOURS SUBQ 12/13/18 09:00 01/12/19 08:59 12/13/18 09:15 Hydrocortisone (Proctosol-HC Cream) 1 applic Q12HR TOPIC 12/13/18 21:00 01/12/19 20:59 Lactobacillus Acidophilus (Culturelle) 1 tab TID GT 12/13/18 18:00 01/12/19 17:59 12/13/18 17:12 Metoprolol Tartrate (Lopressor) 25 mg Q12HR GT 12/13/18 21:00 01/12/19 20:59 Metronidazole 100 ml @ 100 mls/hr Q8HR IVPB 12/13/18 09:00 12/20/18 08:59 12/13/18 09:13 Morphine Sulfate (Morphine Sulfate) 2 mg EVERY 4 HOURS PRN IVP Severe Pain (Pain Scale 7-10) 12/13/18 07:30 12/20/18 07:29 12/13/18 11:54 Ondansetron HCl (Zofran) 4 mg Q6H PRN IVP Nausea & Vomiting 12/13/18 07:30 01/12/19 07:29 Pantoprazole (Protonix) 40 mg EVERY 12 HOURS IVP 12/13/18 21:00 01/12/19 20:59 Polyethylene Glycol (Miralax) 17 gm DAILYPRN PRN ORAL Constipation 12/13/18 07:30 01/12/19 07:29 Sodium Hypochlorite (Dakin's Quarter Strength) 1 applic DAILY TOPIC 12/13/18 21:00 01/12/19 20:59 Vancomycin HCl (Vanco rx to dose) 1 ea DAILY PRN MISC . 12/13/18 07:45 01/12/19 07:44 Vancomycin HCl 1 gm/Dextrose 275 ml @ 183.708 mls/hr Q12HR IVPB 12/13/18 21:00 12/18/18 20:59 Assessment/Plan Assessment/Plan: Hematology Consultation RFC: DVT eval and concurrent anemia Date patient seen: 12/13/18 Chief Complaint: SOB REQ MD: Isaac MORGAN 73-year-old male with hx of dementia, gtube feeding, Parkinson disease, seizure , senior living resident presented with chief complaint of altered mental status. Per EMS, senior living noted that patient appeared to be a respiratory distress with increased work of breathing and decreased mentation. No fever chills but no cough or congestion. Unable to get any other history because of this patient condition. Patient was diagnosed to have bilateral pneumonia and sepsis and admitted to [facility] for further treatment. Noted to have right leg dvt and heme was consulted as has also hx anemia. Allergies: No Known Allergies (Unverified , 11/18/18) Meds Amino Acids/Protein Hydrolys (Pro-Stat Liquid), 30 ML GT TWICE A DAY, (Reported) Aspirin* (Aspir 81*), 81 MG GT DAILY, (Reported) Carbidopa/Levodopa 25-100 Mg* (Sinemet 25-100 Mg Tablet*), 1 TAB ORAL THREE TIMES A DAY, (Reported) Docusate Sodium* (Colace*), 100 MG GT DAILY, (Reported) Donepezil Hcl* (Aricept*), 10 MG GT DAILY, (Reported) Enoxaparin* (Lovenox*), 60 MG SUBQ EVERY 12 HOURS, (Reported) Famotidine (Famotidine), 20 MG GT TWICE A DAY, (Reported) Lactulose (Lactulose*), 30 ML GT DAILY, (Reported) Metoprolol Tartrate* (Metoprolol Tartrate*), 12.5 MG GT EVERY 12 HOURS, ( Reported) Mirtazapine* (Remeron*), 15 MG GT BEDTIME, (Reported) Prednisone* (Prednisone*), 10 MG GT DAILY, (Reported) Sennosides (Senna), 17.2 MG GT QHS, (Reported) Thiamine Hcl* (Vitamin B-1*), 100 MG GT DAILY, (Reported) Valproate Sodium (Valproic Acid), 250 MG GT BID, (Reported) Vitamin D (Vitamin D3), 5,000 UNITS GT DAILY, (Reported) Scheduled PRN Bisacodyl (Dulcolax), 10 MG RC DAILY PRN for Constipation, (Reported) Levalbuterol Hcl (Xopenex*), 0.63 MG HHN Q4H PRN for Shortness of Breath, ( Reported) Magnesium Hydroxide* (Milk Of Magnesia*), 30 ML GT DAILY PRN for Constipation, ( Reported) Na Phos,M-B/Na Phos,Di-Ba* (Fleet Enema*), 133 ML RECTAL EVERY OTHER DAY PRN for Constipation, (Reported) [Mylanta], 30 ML GT Q6HR PRN for Per rx protocol, (Reported) Healthcare decision maker NONE Resuscitation status Full Code Advanced Directive on File No Past Medical/Surgical History: (1) Seizures (2) Parkinson disease (3) Alzheimer's dementia (4) COPD (chronic obstructive pulmonary disease) (5) Feeding by G-tube (6) Anemia, chronic disease Review of Systems All Other Systems: negative except mentioned in HPI PE General Appearance: WD/WN Lines, tubes and drains: central line HEENT: normocephalic, atraumatic Neck: non-tender, normal alignment Breasts: no masses Cardiovascular/Chest: normal peripheral pulses, normal rate, regular rhythm ++ bipap Abdomen: normal bowel sounds, non tender ++ peg Genitourinary/Rectal: normal genital exam, heme negative stool Extremities: normal range of motion Skin Exam: normal pigmentation 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 --> Hgb goal >7. Transfuse prn. --> Epogen or iron at this time is not particularly indicated --> Medications have been reviewed --> low threshold for gi evaluation in case has occult +--> endoscopy and colo pending --> hgb trend: 7.4-->9.0-->9-->8.6->8.5 --> Blood tx: 1 unit 11/19, 11/27, 12/02 # Acute right leg DVT. Heparin drip DCed for rectal bleed. s/p IVC FILTER --> agree with need for this given coagulant contraindication --> appreciate gi and pulm/cc recs --> UPPER EXT DVT noted as well --> have discontinued eliquis given acute GI bleed on 11/27/18, ON HOLD --> consider restart eliquis once h/h remains stable # Leukocytosis due to sepsis. --> currently improved --> urine and blood cultures are both positive, mrsa positive --> IV abx per id --> trend wbc 11.6--> 16-->8-->9.9-->16 # Thrombocytopenia likely related to infection --> trend plt 111k-->129k-->148k-->174k-->200k-->252k-->239 --> likely was related to infection --> meds reviewed # Sinus tach due to anemia and sepsis and beta danya withdrawal as was on Metoprolol 12.5 bid at [facility] --> per cards recs # Hypertension. Hold Metoprolol as BP is 90s. --> clonidine per cards # Respiratory failure now extubated --> but on bipap+ The timing of this note does not necessarily reflect the time of the patient was seen. GREATLY APPRECIATE CONSULTATION. Avery Giang MD Dec 13, 2018 17:31
--- NOTE | 2018-12-13 19:00 | NUR ---
NURSE NOTES: Contacted and informed Dr. Carrasquillo of bilateral upper extremity swelling, Dr. Carrasquillo acknowledged and ordered bilateral upper arms venous duplex. Order entered, noted, and carried out. Will continue to monitor patient.
--- NOTE | 2018-12-13 19:07 | NUR ---
RESPIRATORY NOTE: RECEIVED PT ON CURRENT BIPAP SETTINGS: 02/28 PS5 BUR 14 FIO2 40%. PT JAIME CURRENT BIPAP SETTINGS WELL. NO REDNESS OR SORE NOTED. NO RESPIRATORY DISTRESS NOTED. BIPAP PLUGGED INTO RED OUTLET. ALARMS ON AND AUDIBLE. WILL CONTINUE MONITORING PT.
--- NOTE | 2018-12-13 19:15 | History and Physical Report ---
DATE OF ADMISSION: 12/13/2018 TIME SEEN: On 12/13/2018 at 12 noon. CONSULTANTS: 1. David Carrasquillo M.D. 2. Salinas Winter M.D. 3. Laith Mason M.D. 4. Earl Washington M.D. 5. Avery Giang M.D. 6. Kendall Trinidad M.D. 7. Andrew Eugene M.D. 8. Deacon Dallas M.D. CHIEF COMPLAINT: Shortness of breath, respiratory distress. BRIEF HISTORY: This is a 73-year-old male, who lives at [facility] has been hospitalized for about almost 3 weeks at [facility], status post extubation. The patient was en route going back to nursing facility, apparently afterwards became very short of breath, came back to [facility], diagnosed with respiratory failure and was placed on O2 mask, and placed back to step-down unit. Currently, O2 mask in place, lethargic, sleeping in bed, not talking much. REVIEW OF SYSTEMS: Unavailable. PAST MEDICAL HISTORY: Include respiratory failure, DVT, decubitus ulcer, lower GI bleed, SVT, shortness of breath, pleural effusion, dyspnea, Alzheimer's, dementia, Parkinson, COPD, and seizure. PAST SURGICAL HISTORY: Trach vent, but has been removed. MEDICATIONS: Include vancomycin, amikacin, cefepime, metronidazole, Zofran, and morphine. ALLERGIES: No known. SOCIAL HISTORY: No smoking. No alcohol. No intravenous drug abuse. FAMILY HISTORY: Noncontributory. PHYSICAL EXAMINATION: GENERAL: O2 mask in place, sleeping in bed, nonverbal. VITAL SIGNS: Temperature 99, pulse 108, respirations 21, blood pressure 129/82. CARDIOVASCULAR: No murmur. LUNGS: Poor air exchange. ABDOMEN: Bowel sounds distant. EXTREMITIES: No cyanosis, clubbing, or edema. NEUROLOGIC: The patient is flaccid in bed, not following directions. LABORATORY AND DIAGNOSTIC DATA: Labs at this time show white count 16, hemoglobin and hematocrit 8.5/26, and platelets 332,000. BMP shows chloride 110, BUN and creatinine 5/0.5, glucose 114. Troponin 0.042. Urinalysis shows 2+ leukocyte esterase. ASSESSMENT: 1. Respiratory failure. 2. UTI. 3. Sepsis. 4. Pneumonia. 5. Acute DVT in the past. 6. Anemia. 7. COPD. 8. Alzheimer's. 9. Parkinson's. 10. Elevated troponin in the past. PLAN: 1. O2 and pulmonary treatment. 2. Antibiotics per Infectious Disease. 3. Blood pressure and blood sugar control. 4. Dietary followup. 5. PT, OT, and dietary evaluation. 6. CBC and BMP in the morning. Abdullahi Gonzalez D.O. DR: SNEHA JOB#: [id number] CC:
--- NOTE | 2018-12-13 19:27 | NUR ---
HAND-OFF: Report given to MONA Cohen.
--- NOTE | 2018-12-13 19:28 | NUR ---
NURSE NOTES: Endorsement received from MONA Mas. Opens eyes, does not track nor maintain eye contact, withdraws to pain, nonverbal. Patient on BiPAP 10/5, 40%. No shortness of breath. Right subclavian TLC, patent and intact. With Gtube patent. On Vital AF 1.2 20 ml/hr with goal of 30ml/hr. No residual. ANGIE drain at right abdomen, kept on negative pressure. Noted with greenish/black output. Midabdomen noted with carmel, clean and dry. Bradley catheter to urimeter. On P200 mattress. Head of bed kept elevated. Bed locked and in low position. On seizure precautions.
[2018-12-13] MEDS ORDERED: Metoprolol Tartrate 12.5mg TAB GT SCH (21:00)
[2018-12-13] MEDS ORDERED: Hydrocortisone 2.5% Cream - 30gm TOPIC SCH (21:00)
[2018-12-13] MEDS: Dakin's 0.125% Soln (Quarter Strength) 16oz TOPIC SCH (21:10)
[2018-12-13] MEDS: Pantoprazole Inj IVP SCH (21:10)
[2018-12-13] MEDS: Hydrocortisone 2.5% Cream - 30gm TOPIC SCH (21:10)
[2018-12-13] MEDS: Metoprolol 25mg tab GT SCH (21:11)
[2018-12-13] MEDS: Vancomycin 1gm/D5W 275ml IVPB SCH ×2 (21:35)
--- NOTE | 2018-12-13 21:41 | Infectious Diseases Prog Note ---
Assessment/Plan Assessment/Plan Abx: IV Vancomycin 12/13- Cefepime 12/13- Amikacin 12/13- Flagyl 12/13- Acute respiratory failure, recurrent 12/13 , on bipap- r/o recurent pNA -CXR: Pulmonary edema versus infiltrates. Study is currently limited as obtained. Suspect a left pleural effusion -sp cx Afebrile Leukocytosis; recurrent -u/a no pyuria, nit +, leuk +1; ucx p -Bcx p VDRF, s/p extubation 12/08 Recet GIB- 2ry to actively bleeding Duodenal ulcer -12/02 SP exploratory laparotomy. Anterior duodenotomy for control of large posterior duodenal ulcer hemorrhage. closure of duodenotomy. pyloric exclusion with gastrojejunostomy abdominal washout. abdominal drain placement -12/02 SP EGD Recent Shock likely hemorrhagic and septic component -12/04 CXR: Suggestion of a slightly worsening vascular congestion -12/03 u/a neg, ucx Neg Bcx Neg -12/02 CXR: Slightly increased bilateral infiltrates Diarrhea CDiff +, sp rx GI bleed 11/29 Colonscopy : Diverticulosis Recent Sepsis -11/30 CT abd/p: Nonspecific trace free intraperitoneal fluid. No acute abdominal or pelvic process otherwise. Fairly extensive bilateral basilar pulmonary parenchymal consolidation and atelectasis. Bilateral small pleural effusions. Colonic diverticulosis. No evidence of diverticulitis. Gastrostomy. Nonobstructive 3 mm left intrarenal calyceal calculus. Prostatomegaly. Edema of the bilateral left greater than right subcutaneous fat. Fairly extensive chronic appearing bilateral hip degenerative changes, with bilateral joint effusions versus chronic synovial proliferation. Inferior vena cava filter -11/28 BCx Neg u/a no pyuria ucx Neg Pneumonia -12/07 CXR: Patchy airspace disease noted in the perihilar basilar regions. There may be a small left pleural effusion now present -12/03 Sp cx Citrobacter diversus (R Genta,Ancef, Bactrim); MDR P. stuarti ( S Amikacin) -CXR: Patchy bilateral infiltrates versus mixed interstitial alveolar edema noted. -sp cx MRSA, MDR P. stuarti (S Amikacin, Zosyn ; I cefepime; S ertapenem) MRSA bacteremia- suspect 2ry to PNA- ,sp Rx -11/18 Bcx 2/4 MRSA , 1/4 S. capitis, Diptheroids (these 2 are contaminants); BCx Neg -2d Echo:limited study (no vegetations) Probable UTI, sp Rx -u/a wbc 10-15, nit neg, leuk +2; ucx MDR ABC (S bactrim, gentamicin) Sacral decubitus ulcer, necrotic, surrounding cellulitis dementia HTN CKD COPD dysphagia s/p Gtube feeding Parkinson disease seizure disorder multiple decubiti wounds [facility] resident Plan: -Continue empiric IV Vancomycin and Cefepime #2 - Continue IV Flagyl #10 -Cont IV Amikacin # -/ -12/09 SP IV Vancomycin #22 -12/03 SP PO Vancomycin #5 (held as pt now is NPO) -12/02 SP Flagyl #4 -11/29 SP Zosyn #8 -11/27 SP Bactrim # -11/23 SP Cefepime # -11/18 SP Levaquin x1 -f/u cx -Monitor CBC/CMP, temperatures -GT care -aspiration precautions -wound care per surgical team -ucx Subjective Allergies: Coded Allergies: No Known Allergies (Unverified , 11/18/18) Subjective Patient was discharged yesterday but was sent back from SNF due to increased work of breathing. He was planed on NRB initially and then on Bipap afebrile leukocytosis Objective Vital Signs Last 24 Hour Vital Signs Date Time Temp Pulse Resp B/P (MAP) Pulse Ox O2 Delivery O2 Flow Rate FiO2 12/13/18 21:11 92 128/64 12/13/18 20:00 113 12/13/18 19:07 86 18 100 Facial 40 12/13/18 16:58 96 21 100 Facial 40 12/13/18 16:00 102 12/13/18 16:00 Bi-pap 12/13/18 16:00 40 12/13/18 16:00 98.5 101 19 132/60 (84) 100 12/13/18 15:08 95 21 100 Facial 40 12/13/18 13:28 89 21 95 Facial 40 12/13/18 12:00 116 12/13/18 12:00 99.0 109 19 153/79 (103) 99 12/13/18 12:00 40 12/13/18 12:00 Bi-pap 12/13/18 11:16 70 21 94 Facial 40 12/13/18 08:42 90 26 95 Facial 40 12/13/18 08:00 116 12/13/18 08:00 40 12/13/18 08:00 99.2 108 19 129/82 (98) 95 12/13/18 08:00 Bi-pap 12/13/18 07:15 72 20 94 Facial 40 12/13/18 04:53 96 21 97 Facial 40 12/13/18 04:49 Bi-pap 12/13/18 04:30 98.5 125 19 151/85 (107) 100 12/13/18 04:10 98.6 115 31 135/67 99 Bi-pap 15.0 40 12/13/18 04:10 98.6 125 31 135/67 99 Bi-pap 15.0 40 12/13/18 03:14 98.6 125 31 167/78 99 Bi-pap 40 12/13/18 03:04 127 31 99 Bi-Pap 50 12/13/18 02:20 127 31 99 Facial 50 12/13/18 01:30 115 24 Non-Rebreather 15.0 12/13/18 01:14 99.3 100 24 140/62 99 Non-Rebreather 15.0 12/13/18 00:59 97.0 100 30 145/67 (93) 94 Non-Rebreather 15.0 Height (Feet): 5 Height (Inches): 5.00 Weight (Pounds): 180 Objective GENERAL: O2 mask in place, sleeping in bed, nonverbal. CARDIOVASCULAR: No murmur. LUNGS: Poor air exchange. ABDOMEN: Bowel sounds distant. EXTREMITIES: No cyanosis, clubbing, or edema. NEUROLOGIC: The patient is flaccid in bed, not following directions. Microbiology Date/Time Source Procedure Growth Status 12/13/18 01:00 Rectum Received Laboratory Tests Test 12/13/18 01:10 12/13/18 01:15 Urine Color Brown Urine Appearance Clear Urine pH 5 (4.5-8.0) Urine Specific [place] 1.020 (1.005-1.035) Urine Protein 2+ (NEGATIVE) H Urine Glucose (UA) Negative (NEGATIVE) Urine Ketones 1+ (NEGATIVE) H Urine Blood 1+ (NEGATIVE) H Urine Nitrite Positive (NEGATIVE) H Urine Bilirubin 1+ (NEGATIVE) H Urine Ictotest Negative (NEGATIVE) Urine Urobilinogen Normal MG/DL (0.0-1.0) Urine Leukocyte Esterase 2+ (NEGATIVE) H Urine RBC 0-2 /HPF (0 - 0) H Urine WBC 2-4 /HPF (0 - 0) Urine Squamous Epithelial Cells Occasional /LPF Urine Amorphous Sediment Moderate /LPF (NONE) H Urine Bacteria Moderate /HPF (NONE) H Urine Mucus Few /LPF (NONE/OCC) H Sodium Level 139 MMOL/L (136-145) Potassium Level 3.7 MMOL/L (3.5-5.1) Chloride Level 110 MMOL/L (98-107) H Carbon Dioxide Level 24 MMOL/L (21-32) Anion Gap 5 mmol/L (5-15) Blood Urea Nitrogen 5 mg/dL (7-18) L Creatinine 0.5 MG/DL (0.55-1.30) L Estimat Glomerular Filtration Rate mL/min (>60) Glucose Level 114 MG/DL (74-106) H Lactic Acid Level 1.50 mmol/L (0.4-2.0) Calcium Level 7.8 MG/DL (8.5-10.1) L Total Bilirubin 1.8 MG/DL (0.2-1.0) H Direct Bilirubin 1.3 MG/DL (0.0-0.3) H Aspartate Amino Transf (AST/SGOT) 19 U/L (15-37) Alanine Aminotransferase (ALT/SGPT) 10 U/L (12-78) L Alkaline Phosphatase 327 U/L (46-116) H Total Creatine Kinase 15 U/L (26-308) L Creatine Kinase MB 1.7 NG/ML (0.0-3.6) Creatine Kinase MB Relative Index 11.3 Troponin I 0.042 ng/mL (0.000-0.056) Pro-B-Type Natriuretic Peptide 2993 pg/mL (0-125) H Total Protein 4.7 G/DL (6.4-8.2) L Albumin 1.7 G/DL (3.4-5.0) L Globulin 3.0 g/dL Albumin/Globulin Ratio 0.6 (1.0-2.7) L White Blood Count 16.3 K/UL (4.8-10.8) #H Red Blood Count 2.77 M/UL (4.70-6.10) L Hemoglobin 8.5 G/DL (14.2-18.0) L Hematocrit 26.6 % (42.0-52.0) L Mean Corpuscular Volume 96 FL (80-99) Mean Corpuscular Hemoglobin 30.8 PG (27.0-31.0) Mean Corpuscular Hemoglobin Concent 32.1 G/DL (32.0-36.0) Red Cell Distribution Width 16.4 % (11.6-14.8) H Platelet Count 335 K/UL (150-450) Mean Platelet Volume 6.3 FL (6.5-10.1) L Neutrophils (%) (Auto) % (45.0-75.0) Lymphocytes (%) (Auto) % (20.0-45.0) Monocytes (%) (Auto) % (1.0-10.0) Eosinophils (%) (Auto) % (0.0-3.0) Basophils (%) (Auto) % (0.0-2.0) Differential Total Cells Counted 100 Neutrophils % (Manual) 89 % (45-75) H Lymphocytes % (Manual) 6 % (20-45) L Monocytes % (Manual) 4 % (1-10) Eosinophils % (Manual) 1 % (0-3) Basophils % (Manual) 0 % (0-2) Band Neutrophils 0 % (0-8) Platelet Estimate Adequate Platelet Morphology Normal Arterial Blood pH 7.480 (7.350-7.450) Arterial Blood Partial Pressure CO2 26.1 mmHg (35.0-45.0) L Arterial Blood Partial Pressure O2 126.0 mmHg (75.0-100.0) H Arterial Blood HCO3 19.0 mmol/L (22.0-26.0) L Arterial Blood Oxygen Saturation 97.9 % (95-100) Arterial Blood Base Excess -3.5 (-2-2) L Blake Test Positive Current Medications Medications (Trade) Dose Ordered Sig/Pauline Route PRN Reason Start Time Stop Time Status Last Admin Dose Admin Acetaminophen (Tylenol) 650 mg Q4H PRN ORAL T>100.5 12/13/18 07:30 01/12/19 07:29 Albuterol/ Ipratropium (Albuterol/ Ipratropium) 3 ml Q4H PRN HHN Shortness of Breath 12/13/18 07:30 12/18/18 07:29 Amikacin Sulfate 900 mg/Sodium Chloride 113.6 ml @ 113.6 mls/ hr Q24H IV 12/13/18 18:00 12/20/18 17:59 12/13/18 17:12 Cefepime HCl 2 gm/ Dextrose 110 ml @ 220 mls/hr EVERY 12 HOURS IV 12/13/18 15:00 12/20/18 14:59 12/13/18 14:22 Dextrose (Dextrose 50%) 25 ml Q30M PRN IV Hypoglycemia 12/13/18 07:30 01/12/19 07:29 Dextrose (Dextrose 50%) 50 ml Q30M PRN IV Hypoglycemia 12/13/18 07:30 01/12/19 07:29 Digoxin (Lanoxin) 0.125 mg DAILY GT 12/14/18 09:00 01/13/19 08:59 Heparin Sodium (Porcine) (Heparin 5000 units/ml) 5,000 units EVERY 12 HOURS SUBQ 12/13/18 09:00 01/12/19 08:59 12/13/18 21:12 Hydrocortisone (Proctosol-HC Cream) 1 applic Q12HR TOPIC 12/13/18 21:00 01/12/19 20:59 12/13/18 21:10 Lactobacillus Acidophilus (Culturelle) 1 tab TID GT 12/13/18 18:00 01/12/19 17:59 12/13/18 17:12 Metoprolol Tartrate (Lopressor) 25 mg Q12HR GT 12/13/18 21:00 01/12/19 20:59 12/13/18 21:11 Metronidazole 100 ml @ 100 mls/hr Q8HR IVPB 12/13/18 09:00 12/20/18 08:59 12/13/18 09:13 Morphine Sulfate (Morphine Sulfate) 2 mg EVERY 4 HOURS PRN IVP Severe Pain (Pain Scale 7-10) 12/13/18 07:30 12/20/18 07:29 12/13/18 11:54 Ondansetron HCl (Zofran) 4 mg Q6H PRN IVP Nausea & Vomiting 12/13/18 07:30 01/12/19 07:29 Pantoprazole (Protonix) 40 mg EVERY 12 HOURS IVP 12/13/18 21:00 01/12/19 20:59 12/13/18 21:10 Polyethylene Glycol (Miralax) 17 gm DAILYPRN PRN ORAL Constipation 12/13/18 07:30 01/12/19 07:29 Sodium Hypochlorite (Dakin's Quarter Strength) 1 applic DAILY TOPIC 12/13/18 21:00 01/12/19 20:59 12/13/18 21:10 Vancomycin HCl (Vanco rx to dose) 1 ea DAILY PRN MISC . 12/13/18 07:45 01/12/19 07:44 Vancomycin HCl 1 gm/Dextrose 275 ml @ 183.708 mls/hr Q12HR IVPB 12/13/18 21:00 12/18/18 20:59 Neva Yee M.D. Dec 13, 2018 21:41
[2018-12-13] MEDS ORDERED: Vancomycin 1 GM in D5W 275 ML IV SCH (23:00)
[2018-12-14] VITALS: BP 140/82
--- NOTE | 2018-12-14 | NUR ---
NURSE NOTES: Patient asleep, opens eyes to light touch. No shortness of breath. Appears comfortable, calm. On vital AF 20ml/hr, noted with residual of 30ml. Will continue to monitor residual before increasing to the goal rate of 30ml/hr. HOB kept elevated. Abdominal sx site dry and intact. ANGIE kept on negative pressure.
--- NOTE | 2018-12-14 03:00 | NUR ---
NURSE NOTES: Bed bath, oral care, change of linens, change of dressings done. Patient sinus tachycardia during morning care. 12L ECG done, shows sinus tach. Repositioned patient for comfort. PRN morphine given. Will continue to monitor.
[2018-12-14] MEDS: Morphine Sulfate 2mg/ml Inj(IV/IM USE ONLY) IVP PRN ×2 (03:43→14:09)
[2018-12-14 04:00] VITALS: BP 96/57
--- NOTE | 2018-12-14 05:00 | NUR ---
NURSE NOTES: Patient sinus rhythm at this time, rate at 90s.
[2018-12-14 06:19] LABS: HEMATOCRIT 23.5 % (42.0-52.0); HEMOGLOBIN 7.5 G/DL (14.2-18.0); MEAN CORPUSCULAR VOLUME 97 FL (80-99); PLATELET COUNT 300 K/UL (150-450); RED BLOOD COUNT 2.41 M/UL (4.70-6.10); WHITE BLOOD COUNT 9.9 K/UL (4.8-10.8)
[2018-12-14 06:25] LABS: ANION GAP 10 mmol/L (5-15); BLOOD UREA NITROGEN 7 mg/dL (7-18); CALCIUM 7.8 MG/DL (8.5-10.1); CARBON DIOXIDE 24 MMOL/L (21-32); CHLORIDE 111 MMOL/L (98-107); CREATININE 0.5 MG/DL (0.55-1.30); POTASSIUM 2.9 MMOL/L (3.5-5.1); SODIUM 145 MMOL/L (136-145)
[2018-12-14 06:29] LABS: ALBUMIN 1.4 G/DL (3.4-5.0); ANION GAP 8 mmol/L (5-15); BLOOD UREA NITROGEN 7 mg/dL (7-18); CALCIUM 7.7 MG/DL (8.5-10.1); CARBON DIOXIDE 25 MMOL/L (21-32); CHLORIDE 111 MMOL/L (98-107); CREATININE 0.5 MG/DL (0.55-1.30); PHOSPHORUS 3.4 MG/DL (2.5-4.9); POTASSIUM 3.1 MMOL/L (3.5-5.1); SODIUM 144 MMOL/L (136-145)
--- NOTE | 2018-12-14 07:01 | NUR ---
HAND-OFF: Report given to MONA Mas.
--- NOTE | 2018-12-14 07:11 | NUR ---
NURSE NOTES: Received report from MONA Cohen. Patient is resting in bed, in stable condition. No s/sx of SOB, breathing is even and unlabored, BIPAP settings are as ordered. Observed no presence of pain or discomfort at this time. Bed is in lowest position, brakes engaged. Call light is kept within easy reach. Will continue to monitor patient.
--- NOTE | 2018-12-14 07:52 | Pulmonology Progress Note ---
Assessment/Plan Assessment/Plan ASSESSMENT acute respiratory failure, requiring BiPAP possible sepsis ( leukocytosis, tachycardia,evidence of infection) probably UTI MDR PNA C dif colitis anemia recent hx of hemorrhagic shock due to large duodenal ulcer s/p repair of duodenal ulcer COPD HTN Protein calorie malnutrition Hypokalemia sacral decub- POA PLAN OF CARE TODD BiPAP, titrate settings prn wean as tolerated fup with CXR and ABG in am continue abx that pt was on dc ( due to MDR PNA, C dif colitis) and Lactobacilli reculture BCX negative UTD, UCX negative SCX +GNR, WCX + GNR ID follows GT feeding with strict aspiration precautions monitor TF tolerance surgical wound clean , [employer], monitor ANGIE drain output decub care with wound care as per surgeon recs DVT prophayxlis monitor BP, on low dose of BB monitor HH with goal to keep Hgb above 7 heme follows replace K, check K and Mg in am seizure precautions, bowel regimen dietary eval supportive care case discussed and evaluated by supervising physician Subjective Allergies: Coded Allergies: No Known Allergies (Unverified , 11/18/18) Subjective Remains on BiPAP, Leukocytosis resolved, afebrile K- 2.9 Hemoglobin down to 7.5 Objective Last 24 Hour Vital Signs Date Time Temp Pulse Resp B/P (MAP) Pulse Ox O2 Delivery O2 Flow Rate FiO2 12/14/18 05:20 69 14 100 Full Face 40 12/14/18 04:25 98.4 12/14/18 04:00 Bi-pap 12/14/18 04:00 40 12/14/18 04:00 97.9 150 20 96/57 (70) 100 12/14/18 04:00 152 12/14/18 03:22 77 14 100 Facial 40 12/14/18 01:20 87 16 100 Facial 40 12/14/18 00:00 40 12/14/18 00:00 98.4 92 20 140/82 (101) 100 12/14/18 00:00 102 12/14/18 00:00 Bi-pap 12/13/18 23:20 98 18 100 Facial 40 12/13/18 21:15 87 18 100 Facial 40 12/13/18 21:11 92 128/64 12/13/18 20:00 40 12/13/18 20:00 113 12/13/18 20:00 Bi-pap 12/13/18 20:00 97.6 92 20 128/64 (85) 100 12/13/18 19:07 86 18 100 Facial 40 12/13/18 16:58 96 21 100 Facial 40 12/13/18 16:00 102 12/13/18 16:00 Bi-pap 12/13/18 16:00 40 12/13/18 16:00 98.5 101 19 132/60 (84) 100 12/13/18 15:08 95 21 100 Facial 40 12/13/18 13:28 89 21 95 Facial 40 12/13/18 12:00 116 12/13/18 12:00 99.0 109 19 153/79 (103) 99 12/13/18 12:00 40 12/13/18 12:00 Bi-pap 12/13/18 11:16 70 21 94 Facial 40 12/13/18 08:42 90 26 95 Facial 40 12/13/18 08:00 116 12/13/18 08:00 40 12/13/18 08:00 99.2 108 19 129/82 (98) 95 12/13/18 08:00 Bi-pap Intake and Output 12/13/18 12/14/18 18:59 06:59 Intake Total 40 ml 645.000 ml Output Total 1255 ml 390 ml Balance -1215 ml 255.000 ml Intake IV Total 375.000 ml Tube Feeding 40 ml 270 ml Output Urine Total 1150 ml 350 ml Drainage Total 105 ml 40 ml # Bowel Movements 3 Objective General Appearance: no apparent distress, other - chronically ill looking male, awake, but poorly responsive HEENT: normocephalic, atraumatic, anicteric, other - BiPAP mask on 02/28 -FiO2 40% Neck: non-tender Respiratory/Chest: no accessory muscle use, other - few scattered rhonchi Cardiovascular/Chest: tachycardia , irregular with frequent PAC, R subclavian CL intact Abdomen: normal bowel sounds, non tender, soft, other - abdominal incision with carmel [employer], clean, dry, intact, ANGIE drain with dark greenish brownish secretions ; GT with TF infusing Genitourinary/Rectal: Bradley Extremities: no calf tenderness, no edema, no cyanosis Skin Exam: warm/dry Neurologic: abnormal gait, awake. poorly responsive Musculoskeletal: atrophy - BLE Microbiology Date/Time Source Procedure Growth Status 12/13/18 01:10 Blood Blood Culture - Preliminary NO GROWTH AFTER 24 HOURS Resulted 12/13/18 00:55 Blood Blood Culture - Preliminary NO GROWTH AFTER 24 HOURS Resulted 12/13/18 09:55 Sputum Gram Stain - Final Resulted 12/13/18 09:55 Sputum Culture - Preliminary Gram Negative Hussein Resulted 12/13/18 01:10 Urine,Clean Catch Urine Culture - Preliminary NO GROWTH Resulted 12/13/18 04:00 Sacral Wound Gram Stain - Final Resulted 12/13/18 04:00 Wound Culture - Preliminary Gram Negative Hussein Resulted 12/13/18 01:00 Rectum Received Laboratory Tests 12/14/18 04:45: White Blood Count 9.9, Red Blood Count 2.41L, Hemoglobin 7.5L, Hematocrit 23.5L , Mean Corpuscular Volume 97, Mean Corpuscular Hemoglobin 31.0, Mean Corpuscular Hemoglobin Concent 31.9L, Red Cell Distribution Width 17.0H, Platelet Count 300, Mean Platelet Volume 6.2L, Neutrophils (%) (Auto) , Lymphocytes (%) (Auto) , Monocytes (%) (Auto) , Eosinophils (%) (Auto) , Basophils (%) (Auto) , Neutrophils % (Manual) [Pending], Lymphocytes % (Manual) [Pending], Platelet Estimate [Pending], Platelet Morphology [Pending], Sodium Level 145, Potassium Level 2.9L, Chloride Level 111H, Carbon Dioxide Level 24, Anion Gap 10, Blood Urea Nitrogen 7, Creatinine 0.5L, Estimat Glomerular Filtration Rate , Glucose Level 131H, Calcium Level 7.8L, Phosphorus Level 3.4, Albumin 1.4L, Random Amikacin Level 11.7, Digoxin Level < 0.2L Current Medications Medications (Trade) Dose Ordered Sig/Pauline Route PRN Reason Start Time Stop Time Status Last Admin Dose Admin Acetaminophen (Tylenol) 650 mg Q4H PRN ORAL T>100.5 12/13/18 07:30 01/12/19 07:29 Albuterol/ Ipratropium (Albuterol/ Ipratropium) 3 ml Q4H PRN HHN Shortness of Breath 12/13/18 07:30 12/18/18 07:29 Amikacin Sulfate 900 mg/Sodium Chloride 113.6 ml @ 113.6 mls/ hr Q24H IV 12/13/18 18:00 12/20/18 17:59 12/13/18 17:12 Cefepime HCl 2 gm/ Dextrose 110 ml @ 220 mls/hr EVERY 12 HOURS IV 12/13/18 15:00 12/20/18 14:59 12/13/18 14:22 Dextrose (Dextrose 50%) 25 ml Q30M PRN IV Hypoglycemia 12/13/18 07:30 01/12/19 07:29 Dextrose (Dextrose 50%) 50 ml Q30M PRN IV Hypoglycemia 12/13/18 07:30 01/12/19 07:29 Digoxin (Lanoxin) 0.125 mg DAILY GT 12/14/18 09:00 01/13/19 08:59 Heparin Sodium (Porcine) (Heparin 5000 units/ml) 5,000 units EVERY 12 HOURS SUBQ 12/13/18 09:00 01/12/19 08:59 12/13/18 21:12 Hydrocortisone (Proctosol-HC Cream) 1 applic Q12HR TOPIC 12/13/18 21:00 01/12/19 20:59 12/13/18 21:10 Lactobacillus Acidophilus (Culturelle) 1 tab TID GT 12/13/18 18:00 01/12/19 17:59 12/13/18 17:12 Metoprolol Tartrate (Lopressor) 25 mg Q12HR GT 12/13/18 21:00 01/12/19 20:59 12/13/18 21:11 Metronidazole 100 ml @ 100 mls/hr Q8HR IVPB 12/13/18 09:00 12/20/18 08:59 12/14/18 05:30 Morphine Sulfate (Morphine Sulfate) 2 mg EVERY 4 HOURS PRN IVP Severe Pain (Pain Scale 7-10) 12/13/18 07:30 12/20/18 07:29 12/14/18 03:43 Ondansetron HCl (Zofran) 4 mg Q6H PRN IVP Nausea & Vomiting 12/13/18 07:30 01/12/19 07:29 Pantoprazole (Protonix) 40 mg EVERY 12 HOURS IVP 12/13/18 21:00 01/12/19 20:59 12/13/18 21:10 Polyethylene Glycol (Miralax) 17 gm DAILYPRN PRN ORAL Constipation 12/13/18 07:30 01/12/19 07:29 Sodium Hypochlorite (Dakin's Quarter Strength) 1 applic DAILY TOPIC 12/13/18 21:00 01/12/19 20:59 12/13/18 21:10 Vancomycin HCl (Vanco rx to dose) 1 ea DAILY PRN MISC . 12/13/18 07:45 01/12/19 07:44 Vancomycin HCl 1 gm/Dextrose 275 ml @ 183.708 mls/hr Q12HR IVPB 12/13/18 21:00 12/18/18 20:59 12/13/18 21:35 Aleida Tellez LIFT SUPERVISOR Dec 14, 2018 07:52
[2018-12-14 07:57] VITALS: BP 141/65
[2018-12-14] MEDS: Pantoprazole Inj IVP SCH ×2 (08:08→21:43)
[2018-12-14] MEDS: Digoxin 0.125mg tab GT SCH (08:08)
[2018-12-14] MEDS: Cefepime HCl 2 GM in D5W 110 ML IV SCH ×2 (08:08→21:47)
[2018-12-14] MEDS: Metoprolol 25mg tab GT SCH ×2 (08:08→21:43)
[2018-12-14] MEDS: Hydrocortisone 2.5% Cream - 30gm TOPIC SCH ×2 (08:09→21:43)
[2018-12-14] MEDS: Lactobacillus-GG tablet GT SCH ×4 (08:09→17:02)
[2018-12-14] MEDS: Heparin 5000 units/ml inj SUBQ SCH ×2 (08:09→21:49)
[2018-12-14] MEDS: Dakin's 0.125% Soln (Quarter Strength) 16oz TOPIC SCH (08:09)
[2018-12-14] MEDS: Vancomycin 1gm/D5W 275ml IVPB SCH ×4 (08:43→21:44)
--- NOTE | 2018-12-14 09:36 | General Progress Note ---
Assessment/Plan Problem List: (1) Respiratory distress ICD Codes: R06.03 - Acute respiratory distress SNOMED: 117342864 (2) Seizures ICD Codes: R56.9 - Unspecified convulsions SNOMED: 92268922 (3) Parkinson disease ICD Codes: G20 - Parkinson's disease SNOMED: 14017351 (4) Alzheimer's dementia ICD Codes: G30.9 - Alzheimer's disease, unspecified; F02.80 - Dementia in other diseases classified elsewhere without behavioral disturbance SNOMED: 40877122 (5) COPD (chronic obstructive pulmonary disease) ICD Codes: J44.9 - Chronic obstructive pulmonary disease, unspecified SNOMED: 84293719 (6) Acute DVT (deep venous thrombosis) ICD Codes: I82.409 - Acute embolism and thrombosis of unspecified deep veins of unspecified lower extremity SNOMED: 963706598249705 (7) SOB (shortness of breath) ICD Codes: R06.02 - Shortness of breath SNOMED: 471733463 Status: unchanged Assessment/Plan: o2 pulm tx abx cbc bmp am Subjective Constitutional: Reports: weakness Allergies: Coded Allergies: No Known Allergies (Unverified , 11/18/18) All Systems: reviewed and negative except above Subjective o2 mask calm Objective Last 24 Hour Vital Signs Date Time Temp Pulse Resp B/P (MAP) Pulse Ox O2 Delivery O2 Flow Rate FiO2 12/14/18 08:52 80 14 100 Full Face 40 12/14/18 08:08 86 141/65 12/14/18 08:08 86 12/14/18 08:03 86 14 99 Full Face 40 12/14/18 08:00 40 12/14/18 08:00 Bi-pap 12/14/18 07:57 97.7 92 20 141/65 (90) 100 12/14/18 05:20 69 14 100 Full Face 40 12/14/18 04:25 98.4 12/14/18 04:00 Bi-pap 12/14/18 04:00 40 12/14/18 04:00 97.9 150 20 96/57 (70) 100 12/14/18 04:00 152 12/14/18 03:22 77 14 100 Facial 40 12/14/18 01:20 87 16 100 Facial 40 12/14/18 00:00 40 12/14/18 00:00 98.4 92 20 140/82 (101) 100 12/14/18 00:00 102 12/14/18 00:00 Bi-pap 12/13/18 23:20 98 18 100 Facial 40 12/13/18 21:15 87 18 100 Facial 40 12/13/18 21:11 92 128/64 12/13/18 20:00 40 12/13/18 20:00 113 12/13/18 20:00 Bi-pap 12/13/18 20:00 97.6 92 20 128/64 (85) 100 12/13/18 19:07 86 18 100 Facial 40 12/13/18 16:58 96 21 100 Facial 40 12/13/18 16:00 102 12/13/18 16:00 Bi-pap 12/13/18 16:00 40 12/13/18 16:00 98.5 101 19 132/60 (84) 100 12/13/18 15:08 95 21 100 Facial 40 12/13/18 13:28 89 21 95 Facial 40 12/13/18 12:00 116 12/13/18 12:00 99.0 109 19 153/79 (103) 99 12/13/18 12:00 40 12/13/18 12:00 Bi-pap 12/13/18 11:16 70 21 94 Facial 40 Intake and Output 12/13/18 12/14/18 18:59 06:59 Intake Total 40 ml 645.000 ml Output Total 1255 ml 390 ml Balance -1215 ml 255.000 ml Intake IV Total 375.000 ml Tube Feeding 40 ml 270 ml Output Urine Total 1150 ml 350 ml Drainage Total 105 ml 40 ml # Bowel Movements 3 Laboratory Tests 12/14/18 04:00: Arterial Blood pH 7.464H, Arterial Blood Partial Pressure CO2 32.3L, Arterial Blood Partial Pressure O2 117.9H, Arterial Blood HCO3 22.7, Arterial Blood Oxygen Saturation 98.2, Arterial Blood Base Excess -0.9, Blake Test Positive 12/14/18 04:45: White Blood Count 9.9, Red Blood Count 2.41L, Hemoglobin 7.5L, Hematocrit 23.5L , Mean Corpuscular Volume 97, Mean Corpuscular Hemoglobin 31.0, Mean Corpuscular Hemoglobin Concent 31.9L, Red Cell Distribution Width 17.0H, Platelet Count 300, Mean Platelet Volume 6.2L, Neutrophils (%) (Auto) , Lymphocytes (%) (Auto) , Monocytes (%) (Auto) , Eosinophils (%) (Auto) , Basophils (%) (Auto) , Differential Total Cells Counted 100, Neutrophils % ( Manual) 86H, Lymphocytes % (Manual) 9L, Monocytes % (Manual) 2, Eosinophils % ( Manual) 3, Basophils % (Manual) 0, Band Neutrophils 0, Platelet Estimate Adequate, Platelet Morphology Normal, Hypochromasia 1+, Anisocytosis 1+, Sodium Level 145, Potassium Level 2.9L, Chloride Level 111H, Carbon Dioxide Level 24, Anion Gap 10, Blood Urea Nitrogen 7, Creatinine 0.5L, Estimat Glomerular Filtration Rate , Glucose Level 131H, Calcium Level 7.8L, Phosphorus Level 3.4, Albumin 1.4L, Random Amikacin Level 11.7, Digoxin Level < 0.2L Height (Feet): 5 Height (Inches): 5.00 Weight (Pounds): 180 General Appearance: lethargic EENT: normal ENT inspection Neck: normal alignment Cardiovascular: normal peripheral pulses, normal rate, regular rhythm Respiratory/Chest: chest wall non-tender, lungs clear, normal breath sounds Abdomen: normal bowel sounds, non tender, soft Extremities: normal inspection Edema: 1+ Arm (L), 1+ Arm (R), 1+ Leg (L), 1+ Leg (R), 1+ Pedal (L), 1+ Pedal ( R), 1+ Generalized Edema: trace edema Neurologic: motor weakness Skin: normal pigmentation, warm/dry Abdullahi Gonzalez DO Dec 14, 2018 09:36
--- NOTE | 2018-12-14 10:00 | NUR ---
NURSE NOTES: MARIO Tellez at nurse station. 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 Will continue to monitor patient.
--- NOTE | 2018-12-14 10:00 | Progress Note ---
DATE: 12/14/2018 SUBJECTIVE: This is a 73-year-old male patient. The patient has sepsis and pneumonia. Cognition is below his baseline. That is why he does require inpatient treatment at this time. activity. DIAGNOSIS: Major depressive disorder, mild, recurrent with psychotic features. PLAN: Continue treatment with medications to stabilize his mood. Provided him with 20 minutes of reality-based supportive psychotherapy. Chart reviewed. Discussed with staff. Seen and assessed in his room. 20 minutes of cognitive behavioral therapy provided to help him identify his automatic negative thoughts and help him convert those negative thoughts to more positive thoughts to reduce depression, anxiety, and mood lability. Laith Mason M.D. DR: ELLYN JOB#: [id number] CC:
--- NOTE | 2018-12-14 10:10 | NUR ---
NURSE NOTES: Dr. Giang is at nurse station, made aware of patient's hemoglobin level of 7.5 today. MD acknowledged, ordered to have goal of 7.0 for hemoglobin. Order entered, noted, and carried out. Will continue to monitor patient.
--- NOTE | 2018-12-14 11:49 | Diagnostic Imaging Report ---
Indication: Dyspnea Comparison: 12/13/2018 at 02:08 A single view chest radiograph was obtained. Findings: Hazy left basilar opacity consistent with pleural effusion. Interstitial edema appears increased since yesterday. Heart is enlarged. Right subclavian line is unchanged. IMPRESSION: Mild to moderate interstitial edema and left pleural effusion
[2018-12-14 12:00] VITALS: BP 143/62
--- NOTE | 2018-12-14 12:50 | Cardiac Electrophysiology PN ---
Assessment/Plan Assessment/Plan 1. Post op atrial fib with RVR 170s. On Dig 0.125 PEG daily and Lopressor 25 GT bid In SR with frequent PAC and PVC. 2. S/P Septic and hemorrhagic shock . Echo EF 55% 3. Acute right leg DVT and Bilateral UE DVT. S/P IVC filter . Off Eliquis for severe anemia and GI bleed 4. Staph aureous bacteremia. On Abx per Dr Yee 5. Parkinsonism. 6. COPD. 7. UTI. 8. Severe anemia and rectal bleed. S/P Colonoscopy on 11/20/18 and 11/29/18 and transfusion No obvious source. S/P EGD by Dr Dallas and Anterior duodenostomy for control of large posterior duodenal ulcer hemorrhage by Dr Eugene on 12/02/18 9. Seizure disorder. 10. S/P PEG 11. Respiratory failure, extubated 12/08/18. EHSAN RN Subjective Subjective Was tachycardic earlier in sinus tach, better now. Objective Last 24 Hour Vital Signs Date Time Temp Pulse Resp B/P (MAP) Pulse Ox O2 Delivery O2 Flow Rate FiO2 12/14/18 12:00 8.0 40 12/14/18 12:00 Bi-pap 12/14/18 11:00 72 14 100 Full Face 40 12/14/18 08:52 80 14 100 Full Face 40 12/14/18 08:08 86 141/65 12/14/18 08:08 86 12/14/18 08:03 86 14 99 Full Face 40 12/14/18 08:00 40 12/14/18 08:00 Bi-pap 12/14/18 08:00 94 12/14/18 07:57 97.7 92 20 141/65 (90) 100 12/14/18 05:20 69 14 100 Full Face 40 12/14/18 04:25 98.4 12/14/18 04:00 Bi-pap 12/14/18 04:00 40 12/14/18 04:00 97.9 150 20 96/57 (70) 100 12/14/18 04:00 152 12/14/18 03:22 77 14 100 Facial 40 12/14/18 01:20 87 16 100 Facial 40 12/14/18 00:00 40 12/14/18 00:00 98.4 92 20 140/82 (101) 100 12/14/18 00:00 102 12/14/18 00:00 Bi-pap 12/13/18 23:20 98 18 100 Facial 40 12/13/18 21:15 87 18 100 Facial 40 12/13/18 21:11 92 128/64 12/13/18 20:00 40 12/13/18 20:00 113 12/13/18 20:00 Bi-pap 12/13/18 20:00 97.6 92 20 128/64 (85) 100 12/13/18 19:07 86 18 100 Facial 40 12/13/18 16:58 96 21 100 Facial 40 12/13/18 16:00 102 12/13/18 16:00 Bi-pap 12/13/18 16:00 40 12/13/18 16:00 98.5 101 19 132/60 (84) 100 12/13/18 15:08 95 21 100 Facial 40 12/13/18 13:28 89 21 95 Facial 40 Intake and Output 12/13/18 12/14/18 19:00 07:00 Intake Total 60 ml 625.000 ml Output Total 1255 ml 390 ml Balance -1195 ml 235.000 ml Intake IV Total 375.000 ml Tube Feeding 60 ml 250 ml Output Urine Total 1150 ml 350 ml Drainage Total 105 ml 40 ml # Bowel Movements 3 Laboratory Tests Test 12/14/18 04:00 12/14/18 04:45 Arterial Blood pH 7.464 (7.350-7.450) Arterial Blood Partial Pressure CO2 32.3 mmHg (35.0-45.0) L Arterial Blood Partial Pressure O2 117.9 mmHg (75.0-100.0) H Arterial Blood HCO3 22.7 mmol/L (22.0-26.0) Arterial Blood Oxygen Saturation 98.2 % (95-100) Arterial Blood Base Excess -0.9 (-2-2) Blake Test Positive White Blood Count 9.9 K/UL (4.8-10.8) Red Blood Count 2.41 M/UL (4.70-6.10) L Hemoglobin 7.5 G/DL (14.2-18.0) L Hematocrit 23.5 % (42.0-52.0) L Mean Corpuscular Volume 97 FL (80-99) Mean Corpuscular Hemoglobin 31.0 PG (27.0-31.0) Mean Corpuscular Hemoglobin Concent 31.9 G/DL (32.0-36.0) L Red Cell Distribution Width 17.0 % (11.6-14.8) H Platelet Count 300 K/UL (150-450) Mean Platelet Volume 6.2 FL (6.5-10.1) L Neutrophils (%) (Auto) % (45.0-75.0) Lymphocytes (%) (Auto) % (20.0-45.0) Monocytes (%) (Auto) % (1.0-10.0) Eosinophils (%) (Auto) % (0.0-3.0) Basophils (%) (Auto) % (0.0-2.0) Differential Total Cells Counted 100 Neutrophils % (Manual) 86 % (45-75) H Lymphocytes % (Manual) 9 % (20-45) L Monocytes % (Manual) 2 % (1-10) Eosinophils % (Manual) 3 % (0-3) Basophils % (Manual) 0 % (0-2) Band Neutrophils 0 % (0-8) Platelet Estimate Adequate Platelet Morphology Normal Hypochromasia 1+ Anisocytosis 1+ Sodium Level 145 MMOL/L (136-145) Potassium Level 2.9 MMOL/L (3.5-5.1) L Chloride Level 111 MMOL/L (98-107) H Carbon Dioxide Level 24 MMOL/L (21-32) Anion Gap 10 mmol/L (5-15) Blood Urea Nitrogen 7 mg/dL (7-18) Creatinine 0.5 MG/DL (0.55-1.30) L Estimat Glomerular Filtration Rate mL/min (>60) Glucose Level 131 MG/DL (74-106) H Calcium Level 7.8 MG/DL (8.5-10.1) L Phosphorus Level 3.4 MG/DL (2.5-4.9) Albumin 1.4 G/DL (3.4-5.0) L Random Amikacin Level 11.7 ug/mL Digoxin Level < 0.2 NG/ML (0.5-2.0) L Microbiology Date/Time Source Procedure Growth Status 12/13/18 01:10 Blood Blood Culture - Preliminary NO GROWTH AFTER 24 HOURS Resulted 12/13/18 00:55 Blood Blood Culture - Preliminary NO GROWTH AFTER 24 HOURS Resulted 12/13/18 09:55 Sputum Gram Stain - Final Resulted 12/13/18 09:55 Sputum Culture - Preliminary Gram Negative Hussein Resulted 12/13/18 01:10 Urine,Clean Catch Urine Culture - Preliminary NO GROWTH Resulted 12/13/18 04:00 Sacral Wound Gram Stain - Final Resulted 12/13/18 04:00 Wound Culture - Preliminary Gram Negative Hussein Resulted 12/13/18 01:00 Rectum Received Objective HEAD AND NECK: No JVD LUNGS: Decreased breath sounds. CARDIOVASCULAR: Regular S1 and S2 with no gallop . ABDOMEN: Soft. G-tube intact. S/P Laparatomy with ANGIE drain EXTREMITIES: Upper extremity and LE edema. Earl Washington MD Dec 14, 2018 12:50
--- NOTE | 2018-12-14 13:32 | NUR ---
NURSE NOTES: MARIO Tellez made aware of new chest x-ray from today. CAT SITTER acknowledged, ordered titrate oxygen level to keep patient's SpO2 > 90%. Order entered, noted, and carried out. Will continue to monitor patient.
--- NOTE | 2018-12-14 13:45 | Hematology/Onc Progress Note ---
Assessment/Plan Assessment/Plan # Anemia due to GI Bleed, other causes exist, multifactorial, is s/p lap site, egd done --> Anemia workup has been reviewed, FERRITIN 831 --> No evidence of hemolysis is noted, peripheral smear has been reviewed. --> Hgb goal >7. Transfuse prn. --> Epogen or iron at this time is not particularly indicated --> Medications have been reviewed --> low threshold for gi evaluation in case has occult +--> endoscopy and colo pending --> hgb trend: 7.4-->9.0-->9-->8.6->8.5-->7.5 --> Blood tx: 1 unit 11/19, 11/27, 12/02 # Acute right leg DVT. Heparin drip DCed for rectal bleed. s/p IVC FILTER --> agree with need for this given coagulant contraindication --> appreciate gi and pulm/cc recs --> UPPER EXT DVT noted as well --> have discontinued eliquis given acute GI bleed on 11/27/18, ON HOLD --> consider restart eliquis once h/h remains stable # Leukocytosis due to sepsis. --> currently improved --> urine, sputum, sacral, and blood cultures are positive, mrsa positive --> IV abx per id --> trend wbc 11.6--> 16-->8-->9.9-->16-->9.9 # Thrombocytopenia likely related to infection --> trend plt 111k-->129k-->148k-->174k-->200k-->252k-->239-->300 --> likely was related to infection --> meds reviewed # Sinus tach due to anemia and sepsis and beta danya withdrawal as was on Metoprolol 12.[address] [facility] --> per cards recs # Hypertension. Hold Metoprolol as BP is 90s. --> clonidine per cards # Respiratory failure now extubated --> but on bipap+ The timing of this note does not necessarily reflect the time of the patient was seen. GREATLY APPRECIATE CONSULTATION. Subjective Hematologic/Lymphatic: Reports: anemia Allergies: Coded Allergies: No Known Allergies (Unverified , 11/18/18) All Systems: reviewed and negative except above Subjective 12/14: cxr today shows Mild to moderate interstitial edema and left pleural effusion, venous duplex ordered, hgb at 7.5, repeat cbc tomorrow morning Objective Objective Current Medications Medications (Trade) Dose Ordered Sig/Pauline Route PRN Reason Start Time Stop Time Status Last Admin Dose Admin Acetaminophen (Tylenol) 650 mg Q4H PRN ORAL T>100.5 12/13/18 07:30 01/12/19 07:29 Albuterol/ Ipratropium (Albuterol/ Ipratropium) 3 ml Q4H PRN HHN Shortness of Breath 12/13/18 07:30 12/18/18 07:29 Amikacin Sulfate 900 mg/Sodium Chloride 113.6 ml @ 113.6 mls/ hr Q24H IV 12/13/18 18:00 12/20/18 17:59 12/13/18 17:12 Cefepime HCl 2 gm/ Dextrose 110 ml @ 220 mls/hr EVERY 12 HOURS IV 12/13/18 15:00 12/20/18 14:59 12/14/18 08:08 Dextrose (Dextrose 50%) 25 ml Q30M PRN IV Hypoglycemia 12/13/18 07:30 01/12/19 07:29 Dextrose (Dextrose 50%) 50 ml Q30M PRN IV Hypoglycemia 12/13/18 07:30 01/12/19 07:29 Digoxin (Lanoxin) 0.125 mg DAILY GT 12/14/18 09:00 01/13/19 08:59 12/14/18 08:08 Heparin Sodium (Porcine) (Heparin 5000 units/ml) 5,000 units EVERY 12 HOURS SUBQ 12/13/18 09:00 01/12/19 08:59 12/13/18 21:12 Hydrocortisone (Proctosol-HC Cream) 1 applic Q12HR TOPIC 12/13/18 21:00 01/12/19 20:59 12/14/18 08:09 Lactobacillus Acidophilus (Culturelle) 1 tab TID GT 12/13/18 18:00 01/12/19 17:59 12/14/18 12:31 Metoprolol Tartrate (Lopressor) 25 mg Q12HR GT 12/13/18 21:00 01/12/19 20:59 12/14/18 08:08 Metronidazole 100 ml @ 100 mls/hr Q8HR IVPB 12/13/18 09:00 12/20/18 08:59 12/14/18 05:30 Morphine Sulfate (Morphine Sulfate) 2 mg EVERY 4 HOURS PRN IVP Severe Pain (Pain Scale 7-10) 12/13/18 07:30 12/20/18 07:29 12/14/18 03:43 Ondansetron HCl (Zofran) 4 mg Q6H PRN IVP Nausea & Vomiting 12/13/18 07:30 01/12/19 07:29 Pantoprazole (Protonix) 40 mg EVERY 12 HOURS IVP 12/13/18 21:00 01/12/19 20:59 12/14/18 08:08 Polyethylene Glycol (Miralax) 17 gm DAILYPRN PRN ORAL Constipation 12/13/18 07:30 01/12/19 07:29 Sodium Hypochlorite (Dakin's Quarter Strength) 1 applic DAILY TOPIC 12/13/18 21:00 01/12/19 20:59 12/14/18 08:09 Vancomycin HCl (Vanco rx to dose) 1 ea DAILY PRN MISC . 12/13/18 07:45 01/12/19 07:44 Vancomycin HCl 1 gm/Dextrose 275 ml @ 183.708 mls/hr Q12HR IVPB 12/13/18 21:00 12/18/18 20:59 12/14/18 08:43 Last 24 Hour Vital Signs Date Time Temp Pulse Resp B/P (MAP) Pulse Ox O2 Delivery O2 Flow Rate FiO2 12/14/18 12:00 8.0 40 12/14/18 12:00 98.6 83 14 143/62 (89) 100 12/14/18 12:00 Bi-pap 12/14/18 11:00 72 14 100 Full Face 40 12/14/18 08:52 80 14 100 Full Face 40 12/14/18 08:08 86 141/65 12/14/18 08:08 86 12/14/18 08:03 86 14 99 Full Face 40 12/14/18 08:00 40 12/14/18 08:00 Bi-pap 12/14/18 08:00 94 12/14/18 07:57 97.7 92 20 141/65 (90) 100 12/14/18 05:20 69 14 100 Full Face 40 12/14/18 04:25 98.4 12/14/18 04:00 Bi-pap 12/14/18 04:00 40 12/14/18 04:00 97.9 150 20 96/57 (70) 100 12/14/18 04:00 152 12/14/18 03:22 77 14 100 Facial 40 12/14/18 01:20 87 16 100 Facial 40 12/14/18 00:00 40 12/14/18 00:00 98.4 92 20 140/82 (101) 100 12/14/18 00:00 102 12/14/18 00:00 Bi-pap 12/13/18 23:20 98 18 100 Facial 40 12/13/18 21:15 87 18 100 Facial 40 12/13/18 21:11 92 128/64 12/13/18 20:00 40 12/13/18 20:00 113 12/13/18 20:00 Bi-pap 12/13/18 20:00 97.6 92 20 128/64 (85) 100 12/13/18 19:07 86 18 100 Facial 40 12/13/18 16:58 96 21 100 Facial 40 12/13/18 16:00 102 12/13/18 16:00 Bi-pap 12/13/18 16:00 40 12/13/18 16:00 98.5 101 19 132/60 (84) 100 12/13/18 15:08 95 21 100 Facial 40 12/13/18 13:28 89 21 95 Facial 40 12/13/18 12:00 116 12/13/18 12:00 99.0 109 19 153/79 (103) 99 12/13/18 12:00 40 12/13/18 12:00 Bi-pap 12/13/18 11:16 70 21 94 Facial 40 12/13/18 08:42 90 26 95 Facial 40 12/13/18 08:00 116 12/13/18 08:00 40 12/13/18 08:00 99.2 108 19 129/82 (98) 95 12/13/18 08:00 Bi-pap 12/13/18 07:15 72 20 94 Facial 40 12/13/18 04:53 96 21 97 Facial 40 12/13/18 04:49 Bi-pap 12/13/18 04:30 98.5 125 19 151/85 (107) 100 12/13/18 04:10 98.6 115 31 135/67 99 Bi-pap 15.0 40 12/13/18 04:10 98.6 125 31 135/67 99 Bi-pap 15.0 40 12/13/18 03:14 98.6 125 31 167/78 99 Bi-pap 40 12/13/18 03:04 127 31 99 Bi-Pap 50 12/13/18 02:20 127 31 99 Facial 50 12/13/18 01:30 115 24 Non-Rebreather 15.0 12/13/18 01:14 99.3 100 24 140/62 99 Non-Rebreather 15.0 12/13/18 00:59 97.0 100 30 145/67 (93) 94 Non-Rebreather 15.0 Intake and Output 12/13/18 12/14/18 19:00 07:00 Intake Total 60 ml 625.000 ml Output Total 1255 ml 390 ml Balance -1195 ml 235.000 ml Intake IV Total 375.000 ml Tube Feeding 60 ml 250 ml Output Urine Total 1150 ml 350 ml Drainage Total 105 ml 40 ml # Bowel Movements 3 Labs Test 12/13/18 01:10 12/13/18 01:15 12/14/18 04:00 12/14/18 04:45 Urine Color Brown Urine Appearance Clear Urine pH 5 (4.5-8.0) Urine Specific [place] 1.020 (1.005-1.035) Urine Protein 2+ (NEGATIVE) Urine Glucose (UA) Negative (NEGATIVE) Urine Ketones 1+ (NEGATIVE) Urine Blood 1+ (NEGATIVE) Urine Nitrite Positive (NEGATIVE) Urine Bilirubin 1+ (NEGATIVE) Urine Ictotest Negative (NEGATIVE) Urine Urobilinogen Normal MG/DL (0.0-1.0) Urine Leukocyte Esterase 2+ (NEGATIVE) Urine RBC 0-2 /HPF (0 - 0) Urine WBC 2-4 /HPF (0 - 0) Urine Squamous Epithelial Cells Occasional /LPF Urine Amorphous Sediment Moderate /LPF (NONE) Urine Bacteria Moderate /HPF (NONE) Urine Mucus Few /LPF (NONE/OCC) Sodium Level 139 MMOL/L (136-145) 145 MMOL/L (136-145) Potassium Level 3.7 MMOL/L (3.5-5.1) 2.9 MMOL/L (3.5-5.1) Chloride Level 110 MMOL/L (98-107) 111 MMOL/L (98-107) Carbon Dioxide Level 24 MMOL/L (21-32) 24 MMOL/L (21-32) Anion Gap 5 mmol/L (5-15) 10 mmol/L (5-15) Blood Urea Nitrogen 5 mg/dL (7-18) 7 mg/dL (7-18) Creatinine 0.5 MG/DL (0.55-1.30) 0.5 MG/DL (0.55-1.30) Estimat Glomerular Filtration Rate mL/min (>60) mL/min (>60) Glucose Level 114 MG/DL (74-106) 131 MG/DL (74-106) Lactic Acid Level 1.50 mmol/L (0.4-2.0) Calcium Level 7.8 MG/DL (8.5-10.1) 7.8 MG/DL (8.5-10.1) Total Bilirubin 1.8 MG/DL (0.2-1.0) Direct Bilirubin 1.3 MG/DL (0.0-0.3) Aspartate Amino Transf (AST/SGOT) 19 U/L (15-37) Alanine Aminotransferase (ALT/SGPT) 10 U/L (12-78) Alkaline Phosphatase 327 U/L (46-116) Total Creatine Kinase 15 U/L (26-308) Creatine Kinase MB 1.7 NG/ML (0.0-3.6) Creatine Kinase MB Relative Index 11.3 Troponin I 0.042 ng/mL (0.000-0.056) Pro-B-Type Natriuretic Peptide 2993 pg/mL (0-125) Total Protein 4.7 G/DL (6.4-8.2) Albumin 1.7 G/DL (3.4-5.0) 1.4 G/DL (3.4-5.0) Globulin 3.0 g/dL Albumin/Globulin Ratio 0.6 (1.0-2.7) White Blood Count 16.3 K/UL (4.8-10.8) 9.9 K/UL (4.8-10.8) Red Blood Count 2.77 M/UL (4.70-6.10) 2.41 M/UL (4.70-6.10) Hemoglobin 8.5 G/DL (14.2-18.0) 7.5 G/DL (14.2-18.0) Hematocrit 26.6 % (42.0-52.0) 23.5 % (42.0-52.0) Mean Corpuscular Volume 96 FL (80-99) 97 FL (80-99) Mean Corpuscular Hemoglobin 30.8 PG (27.0-31.0) 31.0 PG (27.0-31.0) Mean Corpuscular Hemoglobin Concent 32.1 G/DL (32.0-36.0) 31.9 G/DL (32.0-36.0) Red Cell Distribution Width 16.4 % (11.6-14.8) 17.0 % (11.6-14.8) Platelet Count 335 K/UL (150-450) 300 K/UL (150-450) Mean Platelet Volume 6.3 FL (6.5-10.1) 6.2 FL (6.5-10.1) Neutrophils (%) (Auto) % (45.0-75.0) % (45.0-75.0) Lymphocytes (%) (Auto) % (20.0-45.0) % (20.0-45.0) Monocytes (%) (Auto) % (1.0-10.0) % (1.0-10.0) Eosinophils (%) (Auto) % (0.0-3.0) % (0.0-3.0) Basophils (%) (Auto) % (0.0-2.0) % (0.0-2.0) Differential Total Cells Counted 100 100 Neutrophils % (Manual) 89 % (45-75) 86 % (45-75) Lymphocytes % (Manual) 6 % (20-45) 9 % (20-45) Monocytes % (Manual) 4 % (1-10) 2 % (1-10) Eosinophils % (Manual) 1 % (0-3) 3 % (0-3) Basophils % (Manual) 0 % (0-2) 0 % (0-2) Band Neutrophils 0 % (0-8) 0 % (0-8) Platelet Estimate Adequate Adequate Platelet Morphology Normal Normal Arterial Blood pH 7.480 (7.350-7.450) 7.464 (7.350-7.450) Arterial Blood Partial Pressure CO2 26.1 mmHg (35.0-45.0) 32.3 mmHg (35.0-45.0) Arterial Blood Partial Pressure O2 126.0 mmHg (75.0-100.0) 117.9 mmHg (75.0-100.0) Arterial Blood HCO3 19.0 mmol/L (22.0-26.0) 22.7 mmol/L (22.0-26.0) Arterial Blood Oxygen Saturation 97.9 % (95-100) 98.2 % (95-100) Arterial Blood Base Excess -3.5 (-2-2) -0.9 (-2-2) Blake Test Positive Positive Hypochromasia 1+ Anisocytosis 1+ Phosphorus Level 3.4 MG/DL (2.5-4.9) Random Amikacin Level 11.7 ug/mL Digoxin Level < 0.2 NG/ML (0.5-2.0) Height (Feet): 5 Height (Inches): 5.00 Weight (Pounds): 180 Objective PHYSICAL EXAM General Appearance: WD/WN Lines, tubes and drains: central line HEENT: normocephalic, atraumatic Neck: non-tender, normal alignment Breasts: no masses Cardiovascular/Chest: normal peripheral pulses, normal rate, regular rhythm ++ bipap Abdomen: normal bowel sounds, non tender ++ peg Genitourinary/Rectal: normal genital exam, heme negative stool Extremities: normal range of motion Skin Exam: normal pigmentation 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
--- NOTE | 2018-12-14 13:52 | NUR ---
PT Note Patient is dependent in all mobility. No active movement elicited. All extremities are flaccid. No PT f/u treatment recommended at this time. Addendum: 12/14/18 at 1352 by KERRY FINN PT Amended: Links added.
[2018-12-14 16:00] VITALS: BP 106/69
--- NOTE | 2018-12-14 16:11 | NUR ---
NURSE NOTES: Contacted and informed Dr. Eugene that patient's bobby velasco drain right lower quadrant, had 5 cc of dark greenish drainage for [address] Eugene acknowledged, no new orders given at this time. Will continue to monitor patient.
[2018-12-14] MEDS: Amikacin 900 MG in NS 110 ML IV SCH ×2 (16:58→17:02)
--- NOTE | 2018-12-14 19:22 | NUR ---
HAND-OFF: Report given to MONA Chávez.
--- NOTE | 2018-12-14 19:23 | NUR ---
NURSE NOTES: Patient received from Tan DUNN. Patient is in bed with no signs of acute distress on venturi mask 4L O2. Patient is obtunded and eyes track, running Vital AF 30cc/hr. ANGIE drain is working and insertion sight shows no signs of infection. Surgical wound and carmel noted. Patient had a subclavian triple lumen on his right side, all extremities are edematous +4. Bed is at its lowest position, call light in reach and X3 bed rails are up.
--- NOTE | 2018-12-14 19:51 | Surgery Progress Note ---
Surgery Progress Note Subjective Additional Comments 73-year-old male well-known to me from recent surgery. Patient was admitted prior with GI bleed identified to have a actively bleeding duodenal ulcer status post expiratory laparotomy. Please refer to prior operative note for details. Patient was recently discharged to shelter for the continued care but returned with altered status and a respiratory distress. Patient readmitted and placed on BiPAP. Since her respiratory distress has improved and is now on facemask. On admission patient with leukocytosis 16,000 which is resolved now. Electrolyte abnormal. Surgery called for continued postoperative care while inpatient. Objective Last 24 Hour Vital Signs Date Time Temp Pulse Resp B/P (MAP) Pulse Ox O2 Delivery O2 Flow Rate FiO2 12/14/18 19:07 99 Venturi Mask 6.0 30 12/14/18 16:00 96 12/14/18 16:00 Bi-pap 12/14/18 16:00 8.0 40 12/14/18 16:00 98.6 86 16 106/69 (81) 98 12/14/18 12:00 8.0 40 12/14/18 12:00 98.6 83 14 143/62 (89) 100 12/14/18 12:00 Bi-pap 12/14/18 12:00 83 12/14/18 11:00 72 14 100 Full Face 40 12/14/18 08:52 80 14 100 Full Face 40 12/14/18 08:08 86 141/65 12/14/18 08:08 86 12/14/18 08:03 86 14 99 Full Face 40 12/14/18 08:00 40 12/14/18 08:00 Bi-pap 12/14/18 08:00 94 12/14/18 07:57 97.7 92 20 141/65 (90) 100 12/14/18 05:20 69 14 100 Full Face 40 12/14/18 04:25 98.4 12/14/18 04:00 Bi-pap 12/14/18 04:00 40 12/14/18 04:00 97.9 150 20 96/57 (70) 100 12/14/18 04:00 152 12/14/18 03:22 77 14 100 Facial 40 12/14/18 01:20 87 16 100 Facial 40 12/14/18 00:00 40 12/14/18 00:00 98.4 92 20 140/82 (101) 100 12/14/18 00:00 102 12/14/18 00:00 Bi-pap 12/13/18 23:20 98 18 100 Facial 40 12/13/18 21:15 87 18 100 Facial 40 12/13/18 21:11 92 128/64 12/13/18 20:00 40 12/13/18 20:00 113 12/13/18 20:00 Bi-pap 12/13/18 20:00 97.6 92 20 128/64 (85) 100 I&O Intake and Output 12/13/18 12/14/18 19:00 07:00 Intake Total 60 ml 655.000 ml Output Total 1255 ml 390 ml Balance -1195 ml 265.000 ml IV Total 375.000 ml Tube Feeding 60 ml 280 ml Output Urine Total 1150 ml 350 ml Drainage Total 105 ml 40 ml # Bowel Movements 3 Dressing: dry Wound: clean Drains: tawanda Cardiovascular: RSR Respiratory: decreased breath sounds Abdomen: soft, present bowel sounds, non-distended Extremities: no cyanosis Laboratory Tests Test 12/14/18 04:00 12/14/18 04:45 Arterial Blood pH 7.464 (7.350-7.450) Arterial Blood Partial Pressure CO2 32.3 mmHg (35.0-45.0) L Arterial Blood Partial Pressure O2 117.9 mmHg (75.0-100.0) H Arterial Blood HCO3 22.7 mmol/L (22.0-26.0) Arterial Blood Oxygen Saturation 98.2 % (95-100) Arterial Blood Base Excess -0.9 (-2-2) Blake Test Positive White Blood Count 9.9 K/UL (4.8-10.8) Red Blood Count 2.41 M/UL (4.70-6.10) L Hemoglobin 7.5 G/DL (14.2-18.0) L Hematocrit 23.5 % (42.0-52.0) L Mean Corpuscular Volume 97 FL (80-99) Mean Corpuscular Hemoglobin 31.0 PG (27.0-31.0) Mean Corpuscular Hemoglobin Concent 31.9 G/DL (32.0-36.0) L Red Cell Distribution Width 17.0 % (11.6-14.8) H Platelet Count 300 K/UL (150-450) Mean Platelet Volume 6.2 FL (6.5-10.1) L Neutrophils (%) (Auto) % (45.0-75.0) Lymphocytes (%) (Auto) % (20.0-45.0) Monocytes (%) (Auto) % (1.0-10.0) Eosinophils (%) (Auto) % (0.0-3.0) Basophils (%) (Auto) % (0.0-2.0) Differential Total Cells Counted 100 Neutrophils % (Manual) 86 % (45-75) H Lymphocytes % (Manual) 9 % (20-45) L Monocytes % (Manual) 2 % (1-10) Eosinophils % (Manual) 3 % (0-3) Basophils % (Manual) 0 % (0-2) Band Neutrophils 0 % (0-8) Platelet Estimate Adequate Platelet Morphology Normal Hypochromasia 1+ Anisocytosis 1+ Sodium Level 145 MMOL/L (136-145) Potassium Level 2.9 MMOL/L (3.5-5.1) L Chloride Level 111 MMOL/L (98-107) H Carbon Dioxide Level 24 MMOL/L (21-32) Anion Gap 10 mmol/L (5-15) Blood Urea Nitrogen 7 mg/dL (7-18) Creatinine 0.5 MG/DL (0.55-1.30) L Estimat Glomerular Filtration Rate mL/min (>60) Glucose Level 131 MG/DL (74-106) H Calcium Level 7.8 MG/DL (8.5-10.1) L Phosphorus Level 3.4 MG/DL (2.5-4.9) Albumin 1.4 G/DL (3.4-5.0) L Random Amikacin Level 11.7 ug/mL Digoxin Level < 0.2 NG/ML (0.5-2.0) L Plan Problems: (1) Duodenal ulcer hemorrhage Assessment & Plan: 73-year-old male well-known to me from recent surgery. Patient was admitted prior with GI bleed identified to have a actively bleeding duodenal ulcer status post expiratory laparotomy. Please refer to prior operative note for details. Patient was recently discharged to shelter for the continued care but returned with altered status and a respiratory distress. Patient readmitted and placed on BiPAP. Since her respiratory distress has improved and is now on facemask. On admission patient with leukocytosis 16,000 which is resolved now. Electrolyte abnormal. Surgery called for continued postoperative care while inpatient. -elizabeth drain output has decreased -abd exam stable labs improved cont with abx as per ID will follow with recs cont drain care Andrew Eugene Dec 14, 2018 19:51
[2018-12-14 20:00] VITALS: BP 139/72
[2018-12-15] VITALS (8 sets, daily range): BP systolic 115–151; BP diastolic 54–89
[2018-12-15] MEDS: Morphine Sulfate 2mg/ml Inj(IV/IM USE ONLY) IVP PRN (01:46)
--- NOTE | 2018-12-15 01:53 | NUR ---
NURSE NOTES: Patient's pain addressed before bed bath and dressing change. RT still has patient on bipap 10/5, Fio2 of 40%. 50cc of brown and green liquid removed from ANGIE drain and all badges replaced with no signs of acute distress. Bed at its lowest position, call light with in reach, and X3 bed rails are up.
[2018-12-15 04:51] LABS: ANION GAP 6 mmol/L (5-15); BLOOD UREA NITROGEN 7 mg/dL (7-18); CALCIUM 7.5 MG/DL (8.5-10.1); CARBON DIOXIDE 25 MMOL/L (21-32); CHLORIDE 109 MMOL/L (98-107); CREATININE 0.5 MG/DL (0.55-1.30); POTASSIUM 2.9 MMOL/L (3.5-5.1); SODIUM 140 MMOL/L (136-145)
[2018-12-15 04:55] LABS: HEMATOCRIT 22.5 % (42.0-52.0); HEMOGLOBIN 7.1 G/DL (14.2-18.0); MEAN CORPUSCULAR VOLUME 98 FL (80-99); PLATELET COUNT 268 K/UL (150-450); RED CELL DISTRIBUTION WIDTH 16.7 % (11.6-14.8); WHITE BLOOD COUNT 8.3 K/UL (4.8-10.8)
--- NOTE | 2018-12-15 07:05 | NUR ---
HAND-OFF: Report given to Luh DUNN.
--- NOTE | 2018-12-15 07:48 | NUR ---
RADIOLOGY DEPT., CHEST X-RAY DONE.-P.DYE
[2018-12-15] MEDS: Metoprolol 25mg tab GT SCH ×2 (08:16→20:53)
[2018-12-15] MEDS: Digoxin 0.125mg tab GT SCH (08:16)
[2018-12-15] MEDS: Pantoprazole Inj IVP SCH ×2 (08:16→20:52)
[2018-12-15] MEDS: Lactobacillus-GG tablet GT SCH ×3 (08:16→21:50)
[2018-12-15] MEDS: Heparin 5000 units/ml inj SUBQ SCH ×2 (08:18→20:55)
--- NOTE | 2018-12-15 09:38 | General Progress Note ---
Assessment/Plan Problem List: (1) Respiratory distress ICD Codes: R06.03 - Acute respiratory distress SNOMED: 162450185 (2) Seizures ICD Codes: R56.9 - Unspecified convulsions SNOMED: 34948945 (3) Parkinson disease ICD Codes: G20 - Parkinson's disease SNOMED: 19214813 (4) Alzheimer's dementia ICD Codes: G30.9 - Alzheimer's disease, unspecified; F02.80 - Dementia in other diseases classified elsewhere without behavioral disturbance SNOMED: 32170768 (5) COPD (chronic obstructive pulmonary disease) ICD Codes: J44.9 - Chronic obstructive pulmonary disease, unspecified SNOMED: 50870826 (6) Acute DVT (deep venous thrombosis) ICD Codes: I82.409 - Acute embolism and thrombosis of unspecified deep veins of unspecified lower extremity SNOMED: 533703533562142 (7) SOB (shortness of breath) ICD Codes: R06.02 - Shortness of breath SNOMED: 049324109 Status: unchanged Assessment/Plan: o2 pulm tx abx cbc bmp am promise ltach eval Subjective Constitutional: Reports: weakness Allergies: Coded Allergies: No Known Allergies (Unverified , 11/18/18) All Systems: reviewed and negative except above Subjective o2 mask calm Objective Last 24 Hour Vital Signs Date Time Temp Pulse Resp B/P (MAP) Pulse Ox O2 Delivery O2 Flow Rate FiO2 12/15/18 08:51 100 Venturi Mask 6.0 30 12/15/18 08:16 115 115/71 12/15/18 08:16 115 12/15/18 08:00 97.9 115 22 115/71 (86) 99 12/15/18 08:00 8.0 12/15/18 08:00 Venturi Mask 8.0 12/15/18 07:51 113 12/15/18 05:06 78 17 100 Full Face 40 12/15/18 03:53 98.2 76 20 132/64 (86) 98 12/15/18 03:51 Bi-pap 12/15/18 03:50 40 12/15/18 03:49 99 12/15/18 02:42 94 16 100 Full Face 40 12/15/18 00:47 96 14 100 Full Face 40 12/15/18 00:00 Bi-pap 12/15/18 00:00 40 12/15/18 00:00 98.0 76 20 118/54 (75) 98 12/14/18 23:25 95 12/14/18 22:40 101 18 100 Full Face 40 12/14/18 21:43 106 139/72 12/14/18 20:00 Venturi Mask 4.0 12/14/18 20:00 91 12/14/18 20:00 98.2 106 19 139/72 (94) 100 12/14/18 20:00 4.0 30 12/14/18 19:07 99 Venturi Mask 6.0 30 12/14/18 16:00 96 12/14/18 16:00 Bi-pap 12/14/18 16:00 8.0 40 12/14/18 16:00 98.6 86 16 106/69 (81) 98 12/14/18 12:00 8.0 40 12/14/18 12:00 98.6 83 14 143/62 (89) 100 12/14/18 12:00 Bi-pap 12/14/18 12:00 83 12/14/18 11:00 72 14 100 Full Face 40 Intake and Output 12/14/18 12/15/18 19:00 07:00 Intake Total 510 ml 1152.13778 ml Output Total 355 ml 710 ml Balance 155 ml 442.25406 ml Intake Free Water 180 ml 60 ml IV Total 732.85505 ml Tube Feeding 330 ml 360 ml Output Urine Total 350 ml 600 ml Drainage Total 5 ml 110 ml # Voids 1 # Bowel Movements 1 Laboratory Tests 12/14/18 19:55: Vancomycin Level Trough 17.5H 12/15/18 03:00: White Blood Count 8.3, Red Blood Count 2.30L, Hemoglobin 7.1L, Hematocrit 22.5L , Mean Corpuscular Volume 98, Mean Corpuscular Hemoglobin 30.7, Mean Corpuscular Hemoglobin Concent 31.3L, Red Cell Distribution Width 16.7H, Platelet Count 268, Mean Platelet Volume 6.0L, Neutrophils (%) (Auto) , Lymphocytes (%) (Auto) , Monocytes (%) (Auto) , Eosinophils (%) (Auto) , Basophils (%) (Auto) , Differential Total Cells Counted 100, Neutrophils % ( Manual) 89H, Lymphocytes % (Manual) 6L, Monocytes % (Manual) 4, Eosinophils % ( Manual) 1, Basophils % (Manual) 0, Band Neutrophils 0, Platelet Estimate Adequate, Platelet Morphology Normal, Hypochromasia 2+, Anisocytosis 1+, Sodium Level 140, Potassium Level 2.9L, Chloride Level 109H, Carbon Dioxide Level 25, Anion Gap 6, Blood Urea Nitrogen 7, Creatinine 0.5L, Estimat Glomerular Filtration Rate , Glucose Level 131H, Calcium Level 7.5L, Magnesium Level 1.4L 12/15/18 08:14: Arterial Blood pH 7.475H, Arterial Blood Partial Pressure CO2 31.3L, Arterial Blood Partial Pressure O2 110.7H, Arterial Blood HCO3 22.5, Arterial Blood Oxygen Saturation 97.7, Arterial Blood Base Excess -0.8, Blake Test Positive Height (Feet): 5 Height (Inches): 5.00 Weight (Pounds): 180 General Appearance: lethargic EENT: normal ENT inspection Neck: normal alignment Cardiovascular: normal peripheral pulses, normal rate, regular rhythm Respiratory/Chest: chest wall non-tender, lungs clear, normal breath sounds Abdomen: normal bowel sounds, non tender, soft Extremities: normal inspection Edema: no edema noted Arm (L), no edema noted Arm (R), no edema noted Leg (L), no edema noted Leg (R), no edema noted Pedal (L), no edema noted Pedal (R), no edema noted Generalized Neurologic: motor weakness Skin: normal pigmentation, warm/dry Abdullahi Gonzalez DO Dec 15, 2018 09:38
[2018-12-15] MEDS: Cefepime HCl 2 GM in D5W 110 ML IV SCH ×2 (10:10→20:55)
[2018-12-15] MEDS: Vancomycin 1gm/D5W 275ml IVPB SCH ×2 (10:10)
[2018-12-15] MEDS: Hydrocortisone 2.5% Cream - 30gm TOPIC SCH ×2 (10:10→20:53)
--- NOTE | 2018-12-15 10:23 | GI Progress Note ---
Assessment/Plan Problems: (1) Duodenal ulcer hemorrhage ICD Codes: K26.4 - Chronic or unspecified duodenal ulcer with hemorrhage SNOMED: 60613973 (2) Feeding by G-tube ICD Codes: Z93.1 - Gastrostomy status SNOMED: 368183001, 598552494, 787869506 (3) SOB (shortness of breath) ICD Codes: R06.02 - Shortness of breath SNOMED: 737535045 (4) Perforated duodenal ulcer ICD Codes: K26.5 - Chronic or unspecified duodenal ulcer with perforation SNOMED: 56357657 (5) Severe protein-calorie malnutrition ICD Codes: E43 - Unspecified severe protein-calorie malnutrition SNOMED: 416835590, 038115467, 059662179 Status: unchanged Status Narrative Discussed with Dr. Dallas Assessment/Plan Duodenal ulcer, s/p SURG TF per surgery iv ppi stable H&H will fu may need TPN if prolonged NPO status anticipated The patient was seen and examined at bedside and all new and available data was reviewed in the patients chart. I agree with the above findings, impression and plan. (Patient seen earlier today. Signature stamp does not reflect patient encounter time.). - Deacon Dallas MD Subjective Subjective Limited Objective Last 24 Hour Vital Signs Date Time Temp Pulse Resp B/P (MAP) Pulse Ox O2 Delivery O2 Flow Rate FiO2 12/15/18 08:51 100 Venturi Mask 6.0 30 12/15/18 08:16 115 115/71 12/15/18 08:16 115 12/15/18 08:00 97.9 115 22 115/71 (86) 99 12/15/18 08:00 8.0 12/15/18 08:00 Venturi Mask 8.0 12/15/18 07:51 113 12/15/18 05:06 78 17 100 Full Face 40 12/15/18 03:53 98.2 76 20 132/64 (86) 98 12/15/18 03:51 Bi-pap 12/15/18 03:50 40 12/15/18 03:49 99 12/15/18 02:42 94 16 100 Full Face 40 12/15/18 00:47 96 14 100 Full Face 40 12/15/18 00:00 Bi-pap 12/15/18 00:00 40 12/15/18 00:00 98.0 76 20 118/54 (75) 98 12/14/18 23:25 95 12/14/18 22:40 101 18 100 Full Face 40 12/14/18 21:43 106 139/72 12/14/18 20:00 Venturi Mask 4.0 12/14/18 20:00 91 12/14/18 20:00 98.2 106 19 139/72 (94) 100 12/14/18 20:00 4.0 30 12/14/18 19:07 99 Venturi Mask 6.0 30 12/14/18 16:00 96 12/14/18 16:00 Bi-pap 12/14/18 16:00 8.0 40 12/14/18 16:00 98.6 86 16 106/69 (81) 98 12/14/18 12:00 8.0 40 12/14/18 12:00 98.6 83 14 143/62 (89) 100 12/14/18 12:00 Bi-pap 12/14/18 12:00 83 12/14/18 11:00 72 14 100 Full Face 40 Intake and Output 12/14/18 12/15/18 19:00 07:00 Intake Total 510 ml 1152.16628 ml Output Total 355 ml 710 ml Balance 155 ml 442.59219 ml Intake Free Water 180 ml 60 ml IV Total 732.36460 ml Tube Feeding 330 ml 360 ml Output Urine Total 350 ml 600 ml Drainage Total 5 ml 110 ml # Voids 1 # Bowel Movements 1 Laboratory Tests Test 12/14/18 19:55 12/15/18 03:00 12/15/18 08:14 Vancomycin Level Trough 17.5 ug/mL (5.0-12.0) H White Blood Count 8.3 K/UL (4.8-10.8) Red Blood Count 2.30 M/UL (4.70-6.10) L Hemoglobin 7.1 G/DL (14.2-18.0) L Hematocrit 22.5 % (42.0-52.0) L Mean Corpuscular Volume 98 FL (80-99) Mean Corpuscular Hemoglobin 30.7 PG (27.0-31.0) Mean Corpuscular Hemoglobin Concent 31.3 G/DL (32.0-36.0) L Red Cell Distribution Width 16.7 % (11.6-14.8) H Platelet Count 268 K/UL (150-450) Mean Platelet Volume 6.0 FL (6.5-10.1) L Neutrophils (%) (Auto) % (45.0-75.0) Lymphocytes (%) (Auto) % (20.0-45.0) Monocytes (%) (Auto) % (1.0-10.0) Eosinophils (%) (Auto) % (0.0-3.0) Basophils (%) (Auto) % (0.0-2.0) Differential Total Cells Counted 100 Neutrophils % (Manual) 89 % (45-75) H Lymphocytes % (Manual) 6 % (20-45) L Monocytes % (Manual) 4 % (1-10) Eosinophils % (Manual) 1 % (0-3) Basophils % (Manual) 0 % (0-2) Band Neutrophils 0 % (0-8) Platelet Estimate Adequate Platelet Morphology Normal Hypochromasia 2+ Anisocytosis 1+ Sodium Level 140 MMOL/L (136-145) Potassium Level 2.9 MMOL/L (3.5-5.1) L Chloride Level 109 MMOL/L (98-107) H Carbon Dioxide Level 25 MMOL/L (21-32) Anion Gap 6 mmol/L (5-15) Blood Urea Nitrogen 7 mg/dL (7-18) Creatinine 0.5 MG/DL (0.55-1.30) L Estimat Glomerular Filtration Rate mL/min (>60) Glucose Level 131 MG/DL (74-106) H Calcium Level 7.5 MG/DL (8.5-10.1) L Magnesium Level 1.4 MG/DL (1.8-2.4) L Arterial Blood pH 7.475 (7.350-7.450) Arterial Blood Partial Pressure CO2 31.3 mmHg (35.0-45.0) L Arterial Blood Partial Pressure O2 110.7 mmHg (75.0-100.0) H Arterial Blood HCO3 22.5 mmol/L (22.0-26.0) Arterial Blood Oxygen Saturation 97.7 % (95-100) Arterial Blood Base Excess -0.8 (-2-2) Blake Test Positive Height (Feet): 5 Height (Inches): 5.00 Weight (Pounds): 180 General Appearance: WD/WN, no apparent distress, alert Cardiovascular: normal rate Respiratory/Chest: normal breath sounds, no respiratory distress Abdominal Exam: normal bowel sounds, non tender, soft Extremities: normal range of motion, non-tender Objective The patient was discharged over the weekend, return back to the hospital after episode of shortness of breath. Sohan Kohli NP Dec 15, 2018 10:23
--- NOTE | 2018-12-15 10:50 | Infectious Diseases Prog Note ---
Assessment/Plan Assessment/Plan Acute respiratory failure, recurrent 12/13 , on bipap- r/o recurent pNA -CXR: Pulmonary edema versus infiltrates. Study is currently limited as obtained. Suspect a left pleural effusion -sp cx: Citrobacter diversus (R ancef, Ceftazidime, Ceftriaxone, Gentamycin, Bactrim), diptheroids, GPC Afebrile Leukocytosis; recurrent- resolved -u/a no pyuria, nit +, leuk +1; ucx 10-20k GNR (colonzier) -Bcx NTD VDRF, s/p extubation 12/08 Recet GIB- 2ry to actively bleeding Duodenal ulcer -12/02 SP exploratory laparotomy. Anterior duodenotomy for control of large posterior duodenal ulcer hemorrhage. closure of duodenotomy. pyloric exclusion with gastrojejunostomy abdominal washout. abdominal drain placement -12/02 SP EGD Recent Shock likely hemorrhagic and septic component -12/04 CXR: Suggestion of a slightly worsening vascular congestion -12/03 u/a neg, ucx Neg Bcx Neg -12/02 CXR: Slightly increased bilateral infiltrates Diarrhea CDiff +, sp rx GI bleed 11/29 Colonscopy : Diverticulosis Recent Sepsis -11/30 CT abd/p: Nonspecific trace free intraperitoneal fluid. No acute abdominal or pelvic process otherwise. Fairly extensive bilateral basilar pulmonary parenchymal consolidation and atelectasis. Bilateral small pleural effusions. Colonic diverticulosis. No evidence of diverticulitis. Gastrostomy. Nonobstructive 3 mm left intrarenal calyceal calculus. Prostatomegaly. Edema of the bilateral left greater than right subcutaneous fat. Fairly extensive chronic appearing bilateral hip degenerative changes, with bilateral joint effusions versus chronic synovial proliferation. Inferior vena cava filter -11/28 BCx Neg u/a no pyuria ucx Neg Pneumonia -12/07 CXR: Patchy airspace disease noted in the perihilar basilar regions. There may be a small left pleural effusion now present -12/03 Sp cx Citrobacter diversus (R Genta,Ancef, Bactrim); MDR P. stuarti ( S Amikacin) -CXR: Patchy bilateral infiltrates versus mixed interstitial alveolar edema noted. -sp cx MRSA, MDR P. stuarti (S Amikacin, Zosyn ; I cefepime; S ertapenem) MRSA bacteremia- suspect 2ry to PNA- ,sp Rx -11/18 Bcx 2/4 MRSA , 1/4 S. capitis, Diptheroids (these 2 are contaminants); BCx Neg -2d Echo:limited study (no vegetations) Probable UTI, sp Rx -u/a wbc 10-15, nit neg, leuk +2; ucx MDR ABC (S bactrim, gentamicin) Sacral decubitus ulcer, necrotic, surrounding cellulitis -12/13 wound cx: Citrobacter diversus (R Ancef, Gentamycin, Bactrim), dementia HTN CKD COPD dysphagia s/p Gtube feeding Parkinson disease seizure disorder multiple decubiti wounds [facility] resident Plan: -Continue Cefepime #08/31-10 for Citrobacter PNA -D/c empiric IV Vancomycin #4 - D/c IV Flagyl #12 and IV Amikacin # -12/09 SP IV Vancomycin # -12/03 SP PO Vancomycin #5 (held as pt now is NPO) -12/02 SP Flagyl # -11/29 SP Zosyn #8 -11/27 SP Bactrim #7 -11/23 SP Cefepime #6 -11/18 SP Levaquin x1 -f/u cx -Monitor CBC/CMP, temperatures -GT care -aspiration precautions -wound care per surgical team Subjective Allergies: Coded Allergies: No Known Allergies (Unverified , 11/18/18) Subjective afebrile no leukocytosis on VM Bcx NTD Objective Vital Signs Last 24 Hour Vital Signs Date Time Temp Pulse Resp B/P (MAP) Pulse Ox O2 Delivery O2 Flow Rate FiO2 12/15/18 08:51 100 Venturi Mask 6.0 30 12/15/18 08:16 115 115/71 12/15/18 08:16 115 12/15/18 08:00 97.9 115 22 115/71 (86) 99 12/15/18 08:00 8.0 12/15/18 08:00 Venturi Mask 8.0 12/15/18 07:51 113 12/15/18 05:06 78 17 100 Full Face 40 12/15/18 03:53 98.2 76 20 132/64 (86) 98 12/15/18 03:51 Bi-pap 12/15/18 03:50 40 12/15/18 03:49 99 12/15/18 02:42 94 16 100 Full Face 40 12/15/18 00:47 96 14 100 Full Face 40 12/15/18 00:00 Bi-pap 12/15/18 00:00 40 12/15/18 00:00 98.0 76 20 118/54 (75) 98 12/14/18 23:25 95 12/14/18 22:40 101 18 100 Full Face 40 12/14/18 21:43 106 139/72 12/14/18 20:00 Venturi Mask 4.0 12/14/18 20:00 91 12/14/18 20:00 98.2 106 19 139/72 (94) 100 12/14/18 20:00 4.0 30 12/14/18 19:07 99 Venturi Mask 6.0 30 12/14/18 16:00 96 12/14/18 16:00 Bi-pap 12/14/18 16:00 8.0 40 12/14/18 16:00 98.6 86 16 106/69 (81) 98 12/14/18 12:00 8.0 40 12/14/18 12:00 98.6 83 14 143/62 (89) 100 12/14/18 12:00 Bi-pap 12/14/18 12:00 83 12/14/18 11:00 72 14 100 Full Face 40 Height (Feet): 5 Height (Inches): 5.00 Weight (Pounds): 180 Objective GENERAL: O2 mask in place, sleeping in bed, nonverbal. CARDIOVASCULAR: No murmur. LUNGS: Poor air exchange. ABDOMEN: Bowel sounds distant. EXTREMITIES: No cyanosis, clubbing, or edema. NEUROLOGIC: The patient is flaccid in bed, not following directions. Microbiology Date/Time Source Procedure Growth Status 12/13/18 01:10 Blood Blood Culture - Preliminary NO GROWTH AFTER 48 HOURS Resulted 12/13/18 00:55 Blood Blood Culture - Preliminary NO GROWTH AFTER 48 HOURS Resulted 12/13/18 09:55 Sputum Gram Stain - Final Resulted 12/13/18 09:55 Sputum Culture - Preliminary Citrobacter Diversus Resulted 12/13/18 01:00 Nasal Nares MRSA Culture - Final NO METHICILLIN RESISTANT STAPH AUREUS... Complete 12/13/18 01:10 Urine,Clean Catch Urine Culture - Preliminary Gram Negative Bacillus 1 Resulted 12/13/18 04:00 Sacral Wound Gram Stain - Final Resulted 12/13/18 04:00 Wound Culture - Preliminary Citrobacter Diversus Diphtheroids Gram Positive Cocci Resulted 12/13/18 01:00 Rectum - Final NO CARBAPENEM-RESISTANT ENTEROBACTERI... Complete 12/13/18 01:00 Rectum VRE Culture - Final Enterococcus Faecium - Vre Complete Laboratory Tests Test 12/14/18 19:55 12/15/18 03:00 12/15/18 08:14 Vancomycin Level Trough 17.5 ug/mL (5.0-12.0) H White Blood Count 8.3 K/UL (4.8-10.8) Red Blood Count 2.30 M/UL (4.70-6.10) L Hemoglobin 7.1 G/DL (14.2-18.0) L Hematocrit 22.5 % (42.0-52.0) L Mean Corpuscular Volume 98 FL (80-99) Mean Corpuscular Hemoglobin 30.7 PG (27.0-31.0) Mean Corpuscular Hemoglobin Concent 31.3 G/DL (32.0-36.0) L Red Cell Distribution Width 16.7 % (11.6-14.8) H Platelet Count 268 K/UL (150-450) Mean Platelet Volume 6.0 FL (6.5-10.1) L Neutrophils (%) (Auto) % (45.0-75.0) Lymphocytes (%) (Auto) % (20.0-45.0) Monocytes (%) (Auto) % (1.0-10.0) Eosinophils (%) (Auto) % (0.0-3.0) Basophils (%) (Auto) % (0.0-2.0) Differential Total Cells Counted 100 Neutrophils % (Manual) 89 % (45-75) H Lymphocytes % (Manual) 6 % (20-45) L Monocytes % (Manual) 4 % (1-10) Eosinophils % (Manual) 1 % (0-3) Basophils % (Manual) 0 % (0-2) Band Neutrophils 0 % (0-8) Platelet Estimate Adequate Platelet Morphology Normal Hypochromasia 2+ Anisocytosis 1+ Sodium Level 140 MMOL/L (136-145) Potassium Level 2.9 MMOL/L (3.5-5.1) L Chloride Level 109 MMOL/L (98-107) H Carbon Dioxide Level 25 MMOL/L (21-32) Anion Gap 6 mmol/L (5-15) Blood Urea Nitrogen 7 mg/dL (7-18) Creatinine 0.5 MG/DL (0.55-1.30) L Estimat Glomerular Filtration Rate mL/min (>60) Glucose Level 131 MG/DL (74-106) H Calcium Level 7.5 MG/DL (8.5-10.1) L Magnesium Level 1.4 MG/DL (1.8-2.4) L Arterial Blood pH 7.475 (7.350-7.450) Arterial Blood Partial Pressure CO2 31.3 mmHg (35.0-45.0) L Arterial Blood Partial Pressure O2 110.7 mmHg (75.0-100.0) H Arterial Blood HCO3 22.5 mmol/L (22.0-26.0) Arterial Blood Oxygen Saturation 97.7 % (95-100) Arterial Blood Base Excess -0.8 (-2-2) Blake Test Positive Current Medications Medications (Trade) Dose Ordered Sig/Pauline Route PRN Reason Start Time Stop Time Status Last Admin Dose Admin Acetaminophen (Tylenol) 650 mg Q4H PRN ORAL T>100.5 12/13/18 07:30 01/12/19 07:29 Albuterol/ Ipratropium (Albuterol/ Ipratropium) 3 ml Q4H PRN HHN Shortness of Breath 12/13/18 07:30 12/18/18 07:29 Amikacin Sulfate 900 mg/Sodium Chloride 113.6 ml @ 113.6 mls/ hr Q24H IV 12/13/18 18:00 12/20/18 17:59 12/14/18 17:02 Cefepime HCl 2 gm/ Dextrose 110 ml @ 220 mls/hr EVERY 12 HOURS IV 12/13/18 15:00 12/20/18 14:59 12/15/18 10:10 Dextrose (Dextrose 50%) 25 ml Q30M PRN IV Hypoglycemia 12/13/18 07:30 01/12/19 07:29 Dextrose (Dextrose 50%) 50 ml Q30M PRN IV Hypoglycemia 12/13/18 07:30 01/12/19 07:29 Digoxin (Lanoxin) 0.125 mg DAILY GT 12/14/18 09:00 01/13/19 08:59 12/15/18 08:16 Heparin Sodium (Porcine) (Heparin 5000 units/ml) 5,000 units EVERY 12 HOURS SUBQ 12/13/18 09:00 01/12/19 08:59 12/15/18 08:18 Hydrocortisone (Proctosol-HC Cream) 1 applic Q12HR TOPIC 12/13/18 21:00 01/12/19 20:59 12/15/18 10:10 Lactobacillus Acidophilus (Culturelle) 1 tab EVERY 8 HOURS GT 12/15/18 14:00 01/12/19 17:59 Magnesium Sulfate 100 ml @ 100 mls/hr Q1H IVPB 12/15/18 14:00 12/15/18 15:59 Metoprolol Tartrate (Lopressor) 25 mg Q12HR GT 12/13/18 21:00 01/12/19 20:59 12/15/18 08:16 Metronidazole 100 ml @ 100 mls/hr Q8HR IVPB 12/13/18 09:00 12/20/18 08:59 12/15/18 06:16 Morphine Sulfate (Morphine Sulfate) 2 mg EVERY 4 HOURS PRN IVP Severe Pain (Pain Scale 7-10) 12/13/18 07:30 12/20/18 07:29 12/15/18 01:46 Ondansetron HCl (Zofran) 4 mg Q6H PRN IVP Nausea & Vomiting 12/13/18 07:30 01/12/19 07:29 Pantoprazole (Protonix) 40 mg EVERY 12 HOURS IVP 12/13/18 21:00 01/12/19 20:59 12/15/18 08:16 Polyethylene Glycol (Miralax) 17 gm DAILYPRN PRN ORAL Constipation 12/13/18 07:30 01/12/19 07:29 Potassium Phosphate 30 mm/ Sodium Chloride 285 ml @ 47.5 mls/hr ONCE IV 12/15/18 11:00 12/15/18 17:00 Sodium Hypochlorite (Dakin's Quarter Strength) 1 applic BEDTIME TOPIC 12/15/18 21:00 01/12/19 20:59 Vancomycin HCl (Vanco rx to dose) 1 ea DAILY PRN MISC . 12/13/18 07:45 01/12/19 07:44 Vancomycin HCl 1 gm/Dextrose 275 ml @ 183.708 mls/hr Q12HR IVPB 12/13/18 21:00 12/18/18 20:59 12/15/18 10:10 Neva Yee M.D. Dec 15, 2018 10:50
--- NOTE | 2018-12-15 10:50 | Pulmonology Progress Note ---
Assessment/Plan Problems: (1) Acute respiratory failure (2) COPD (chronic obstructive pulmonary disease) (3) C. difficile colitis (4) Severe protein-calorie malnutrition (5) S/P insertion of IVC (inferior vena caval) filter (6) Status post exploratory laparotomy (7) Parkinson disease (8) Alzheimer's dementia (9) Feeding by G-tube Assessment/Plan Off iv fluids] iv abx check cultures cxr better transfuse one unit of prbc. Pt can't sign the consent. He doesn't have any family member to sign it. electrolytes supplement s/p ivc Subjective ROS Limited/Unobtainable: No Interval Events: awake, looks comfortable Allergies: Coded Allergies: No Known Allergies (Unverified , 11/18/18) Objective Last 24 Hour Vital Signs Date Time Temp Pulse Resp B/P (MAP) Pulse Ox O2 Delivery O2 Flow Rate FiO2 12/15/18 08:51 100 Venturi Mask 6.0 30 12/15/18 08:16 115 115/71 12/15/18 08:16 115 12/15/18 08:00 97.9 115 22 115/71 (86) 99 12/15/18 08:00 8.0 12/15/18 08:00 Venturi Mask 8.0 12/15/18 07:51 113 12/15/18 05:06 78 17 100 Full Face 40 12/15/18 03:53 98.2 76 20 132/64 (86) 98 12/15/18 03:51 Bi-pap 12/15/18 03:50 40 12/15/18 03:49 99 12/15/18 02:42 94 16 100 Full Face 40 12/15/18 00:47 96 14 100 Full Face 40 12/15/18 00:00 Bi-pap 12/15/18 00:00 40 12/15/18 00:00 98.0 76 20 118/54 (75) 98 12/14/18 23:25 95 12/14/18 22:40 101 18 100 Full Face 40 12/14/18 21:43 106 139/72 12/14/18 20:00 Venturi Mask 4.0 12/14/18 20:00 91 12/14/18 20:00 98.2 106 19 139/72 (94) 100 12/14/18 20:00 4.0 30 12/14/18 19:07 99 Venturi Mask 6.0 30 12/14/18 16:00 96 12/14/18 16:00 Bi-pap 12/14/18 16:00 8.0 40 12/14/18 16:00 98.6 86 16 106/69 (81) 98 12/14/18 12:00 8.0 40 12/14/18 12:00 98.6 83 14 143/62 (89) 100 12/14/18 12:00 Bi-pap 12/14/18 12:00 83 12/14/18 11:00 72 14 100 Full Face 40 Intake and Output 12/14/18 12/15/18 19:00 07:00 Intake Total 510 ml 1152.44028 ml Output Total 355 ml 710 ml Balance 155 ml 442.55642 ml Intake Free Water 180 ml 60 ml IV Total 732.77496 ml Tube Feeding 330 ml 360 ml Output Urine Total 350 ml 600 ml Drainage Total 5 ml 110 ml # Voids 1 # Bowel Movements 1 General Appearance: WD/WN HEENT: normocephalic, atraumatic Respiratory/Chest: chest wall non-tender, crackles/rales Cardiovascular: normal peripheral pulses, normal rate Abdomen: normal bowel sounds, soft, non tender, non distended Genitourinary: normal external genitalia Extremities: no clubbing Skin: no lesions Neurologic/Psychiatric: travel specialist II-XII grossly normal Microbiology Date/Time Source Procedure Growth Status 12/13/18 01:10 Blood Blood Culture - Preliminary NO GROWTH AFTER 48 HOURS Resulted 12/13/18 00:55 Blood Blood Culture - Preliminary NO GROWTH AFTER 48 HOURS Resulted 12/13/18 09:55 Sputum Gram Stain - Final Resulted 12/13/18 09:55 Sputum Culture - Preliminary Citrobacter Diversus Resulted 12/13/18 01:00 Nasal Nares MRSA Culture - Final NO METHICILLIN RESISTANT STAPH AUREUS... Complete 12/13/18 01:10 Urine,Clean Catch Urine Culture - Preliminary Gram Negative Bacillus 1 Resulted 12/13/18 04:00 Sacral Wound Gram Stain - Final Resulted 12/13/18 04:00 Wound Culture - Preliminary Citrobacter Diversus Diphtheroids Gram Positive Cocci Resulted 12/13/18 01:00 Rectum - Final NO CARBAPENEM-RESISTANT ENTEROBACTERI... Complete 12/13/18 01:00 Rectum VRE Culture - Final Enterococcus Faecium - Vre Complete Laboratory Tests 12/14/18 19:55: Vancomycin Level Trough 17.5H 12/15/18 03:00: White Blood Count 8.3, Red Blood Count 2.30L, Hemoglobin 7.1L, Hematocrit 22.5L , Mean Corpuscular Volume 98, Mean Corpuscular Hemoglobin 30.7, Mean Corpuscular Hemoglobin Concent 31.3L, Red Cell Distribution Width 16.7H, Platelet Count 268, Mean Platelet Volume 6.0L, Neutrophils (%) (Auto) , Lymphocytes (%) (Auto) , Monocytes (%) (Auto) , Eosinophils (%) (Auto) , Basophils (%) (Auto) , Differential Total Cells Counted 100, Neutrophils % ( Manual) 89H, Lymphocytes % (Manual) 6L, Monocytes % (Manual) 4, Eosinophils % ( Manual) 1, Basophils % (Manual) 0, Band Neutrophils 0, Platelet Estimate Adequate, Platelet Morphology Normal, Hypochromasia 2+, Anisocytosis 1+, Sodium Level 140, Potassium Level 2.9L, Chloride Level 109H, Carbon Dioxide Level 25, Anion Gap 6, Blood Urea Nitrogen 7, Creatinine 0.5L, Estimat Glomerular Filtration Rate , Glucose Level 131H, Calcium Level 7.5L, Magnesium Level 1.4L 12/15/18 08:14: Arterial Blood pH 7.475H, Arterial Blood Partial Pressure CO2 31.3L, Arterial Blood Partial Pressure O2 110.7H, Arterial Blood HCO3 22.5, Arterial Blood Oxygen Saturation 97.7, Arterial Blood Base Excess -0.8, Blake Test Positive Current Medications Medications (Trade) Dose Ordered Sig/Pauline Route PRN Reason Start Time Stop Time Status Last Admin Dose Admin Acetaminophen (Tylenol) 650 mg Q4H PRN ORAL T>100.5 12/13/18 07:30 01/12/19 07:29 Albuterol/ Ipratropium (Albuterol/ Ipratropium) 3 ml Q4H PRN HHN Shortness of Breath 12/13/18 07:30 12/18/18 07:29 Amikacin Sulfate 900 mg/Sodium Chloride 113.6 ml @ 113.6 mls/ hr Q24H IV 12/13/18 18:00 12/20/18 17:59 12/14/18 17:02 Cefepime HCl 2 gm/ Dextrose 110 ml @ 220 mls/hr EVERY 12 HOURS IV 12/13/18 15:00 12/20/18 14:59 12/15/18 10:10 Dextrose (Dextrose 50%) 25 ml Q30M PRN IV Hypoglycemia 12/13/18 07:30 01/12/19 07:29 Dextrose (Dextrose 50%) 50 ml Q30M PRN IV Hypoglycemia 12/13/18 07:30 01/12/19 07:29 Digoxin (Lanoxin) 0.125 mg DAILY GT 12/14/18 09:00 01/13/19 08:59 12/15/18 08:16 Heparin Sodium (Porcine) (Heparin 5000 units/ml) 5,000 units EVERY 12 HOURS SUBQ 12/13/18 09:00 01/12/19 08:59 12/15/18 08:18 Hydrocortisone (Proctosol-HC Cream) 1 applic Q12HR TOPIC 12/13/18 21:00 01/12/19 20:59 12/15/18 10:10 Lactobacillus Acidophilus (Culturelle) 1 tab EVERY 8 HOURS GT 12/15/18 14:00 01/12/19 17:59 Magnesium Sulfate 100 ml @ 100 mls/hr Q1H IVPB 12/15/18 14:00 12/15/18 15:59 Metoprolol Tartrate (Lopressor) 25 mg Q12HR GT 12/13/18 21:00 01/12/19 20:59 12/15/18 08:16 Metronidazole 100 ml @ 100 mls/hr Q8HR IVPB 12/13/18 09:00 12/20/18 08:59 12/15/18 06:16 Morphine Sulfate (Morphine Sulfate) 2 mg EVERY 4 HOURS PRN IVP Severe Pain (Pain Scale 7-10) 12/13/18 07:30 12/20/18 07:29 12/15/18 01:46 Ondansetron HCl (Zofran) 4 mg Q6H PRN IVP Nausea & Vomiting 12/13/18 07:30 01/12/19 07:29 Pantoprazole (Protonix) 40 mg EVERY 12 HOURS IVP 12/13/18 21:00 01/12/19 20:59 12/15/18 08:16 Polyethylene Glycol (Miralax) 17 gm DAILYPRN PRN ORAL Constipation 12/13/18 07:30 01/12/19 07:29 Potassium Phosphate 30 mm/ Sodium Chloride 285 ml @ 47.5 mls/hr ONCE IV 12/15/18 11:00 12/15/18 17:00 12/15/18 10:41 Sodium Hypochlorite (Dakin's Quarter Strength) 1 applic BEDTIME TOPIC 12/15/18 21:00 01/12/19 20:59 Vancomycin HCl (Vanco rx to dose) 1 ea DAILY PRN MISC . 12/13/18 07:45 01/12/19 07:44 Vancomycin HCl 1 gm/Dextrose 275 ml @ 183.708 mls/hr Q12HR IVPB 12/13/18 21:00 12/18/18 20:59 12/15/18 10:10 David Carrasquillo MD Dec 15, 2018 10:50
[2018-12-15] MEDS ORDERED: Potassium Phosphate 30 MM in NS 275 ML IV SCH (11:00)
--- NOTE | 2018-12-15 11:25 | NUR ---
NURSE NOTES: Neida Dallas in the unit, made aware regarding Venous Duplex Scan results. No new order at this time.
--- NOTE | 2018-12-15 11:30 | NUR ---
NURSE NOTES: Dr. Avery Giang made aware of latest venous duplex scan result.
--- NOTE | 2018-12-15 12:12 | Hematology/Onc Progress Note ---
Assessment/Plan Assessment/Plan # Anemia due to GI Bleed, other causes exist, multifactorial, is s/p lap site, egd done --> Anemia workup has been reviewed, FERRITIN 831 --> No evidence of hemolysis is noted, peripheral smear has been reviewed. --> Hgb goal >7. Transfuse prn. --> Epogen or iron at this time is not particularly indicated --> Medications have been reviewed --> low threshold for gi evaluation in case has occult +--> endoscopy and colo pending --> hgb trend: 7.4-->9.0-->9-->8.6->8.5-->7.5->7.1 --> Blood tx: 1 unit 11/19, 11/27, 12/02, 12/15 # Acute right leg DVT and left leg DVT (recanalized). Heparin drip DCed for rectal bleed. s/p IVC FILTER 11/23/18 --> upper arm DVTs noted as well (right and left leg dvt) --> agree with need for this given coagulant contraindication --> appreciate gi and pulm/cc recs --> have discontinued eliquis given acute GI bleed on 11/27/18, ON HOLD --> consider restart eliquis once h/h remains stable # Leukocytosis due to sepsis. --> currently improved --> urine, sputum, sacral, and blood cultures are positive, mrsa positive --> IV abx per id --> trend wbc 11.6--> 16-->8-->9.9-->16-->9.9 # Thrombocytopenia likely related to infection --> trend plt 111k-->129k-->148k-->174k-->200k-->252k-->239-->300 --> likely was related to infection --> meds reviewed # Sinus tach due to anemia and sepsis and beta danya withdrawal as was on Metoprolol 12.5 bid at [facility] --> per cards recs # Hypertension. Hold Metoprolol as BP is 90s. --> clonidine per cards prn # Respiratory failure now extubated --> but on bipap+ The timing of this note does not necessarily reflect the time of the patient was seen. GREATLY APPRECIATE CONSULTATION. Subjective Constitutional: Denies: no symptoms, chills, fever, malaise, weakness, other HEENT: Denies: no symptoms, eye pain, blurred vision, tearing, double vision, ear pain, ear discharge, nose pain, nose congestion, throat pain, throat swelling, mouth pain, mouth swelling, other Cardiovascular: Denies: no symptoms, chest pain, edema, irregular heart rate, lightheadedness, palpitations, syncope, other Respiratory: Denies: no symptoms, cough, shortness of breath, SOB with excertion, SOB at rest, sputum, wheezing, other Gastrointestinal/Abdominal: Denies: no symptoms, abdomen distended, abdominal pain, black stools, tarry stools, blood in stool, constipated, diarrhea, difficulty swallowing, nausea, poor appetite, poor fluid intake, rectal bleeding , vomiting, other Genitourinary: Denies: no symptoms, burning, discharge, frequency, flank pain, hematuria, incontinence, pain, urgency, other Neurologic/Psychiatric: Denies: no symptoms, anxiety, depressed, emotional problems, headache, numbness, paresthesia, pre-existing deficit, seizure, tingling, tremors, weakness, other Endocrine: Denies: no symptoms, excessive sweating, flushing, intolerance to cold, intolerance to heat, increased hunger, increased thirst, increased urine, unexplained weight gain, unexplained weight loss, other Allergies: Coded Allergies: No Known Allergies (Unverified , 11/18/18) Subjective 12/14: cxr today shows Mild to moderate interstitial edema and left pleural effusion, venous duplex ordered, hgb at 7.5, repeat cbc tomorrow morning 12/15: one unit prbc was ordered today, duplex showed dvt in all 4 upper and lower ext Objective Objective Current Medications Medications (Trade) Dose Ordered Sig/Pauline Route PRN Reason Start Time Stop Time Status Last Admin Dose Admin Acetaminophen (Tylenol) 650 mg Q4H PRN ORAL T>100.5 12/13/18 07:30 01/12/19 07:29 Albuterol/ Ipratropium (Albuterol/ Ipratropium) 3 ml Q4H PRN HHN Shortness of Breath 12/13/18 07:30 12/18/18 07:29 Cefepime HCl 2 gm/ Dextrose 110 ml @ 220 mls/hr EVERY 12 HOURS IV 12/13/18 15:00 12/20/18 14:59 12/15/18 10:10 Dextrose (Dextrose 50%) 25 ml Q30M PRN IV Hypoglycemia 12/13/18 07:30 01/12/19 07:29 Dextrose (Dextrose 50%) 50 ml Q30M PRN IV Hypoglycemia 12/13/18 07:30 01/12/19 07:29 Digoxin (Lanoxin) 0.125 mg DAILY GT 12/14/18 09:00 01/13/19 08:59 12/15/18 08:16 Heparin Sodium (Porcine) (Heparin 5000 units/ml) 5,000 units EVERY 12 HOURS SUBQ 12/13/18 09:00 01/12/19 08:59 12/15/18 08:18 Hydrocortisone (Proctosol-HC Cream) 1 applic Q12HR TOPIC 12/13/18 21:00 01/12/19 20:59 12/15/18 10:10 Lactobacillus Acidophilus (Culturelle) 1 tab EVERY 8 HOURS GT 12/15/18 14:00 01/12/19 17:59 Magnesium Sulfate 100 ml @ 100 mls/hr Q1H IVPB 12/15/18 14:00 12/15/18 15:59 Metoprolol Tartrate (Lopressor) 25 mg Q12HR GT 12/13/18 21:00 01/12/19 20:59 12/15/18 08:16 Morphine Sulfate (Morphine Sulfate) 2 mg EVERY 4 HOURS PRN IVP Severe Pain (Pain Scale 7-10) 12/13/18 07:30 12/20/18 07:29 12/15/18 01:46 Ondansetron HCl (Zofran) 4 mg Q6H PRN IVP Nausea & Vomiting 12/13/18 07:30 01/12/19 07:29 Pantoprazole (Protonix) 40 mg EVERY 12 HOURS IVP 12/13/18 21:00 01/12/19 20:59 12/15/18 08:16 Polyethylene Glycol (Miralax) 17 gm DAILYPRN PRN ORAL Constipation 12/13/18 07:30 01/12/19 07:29 Potassium Phosphate 30 mm/ Sodium Chloride 285 ml @ 47.5 mls/hr ONCE IV 12/15/18 11:00 7/22/19 17:00 12/15/18 10:41 Sodium Hypochlorite (Dakin's Quarter Strength) 1 applic BEDTIME TOPIC 12/15/18 21:00 01/12/19 20:59 Last 24 Hour Vital Signs Date Time Temp Pulse Resp B/P (MAP) Pulse Ox O2 Delivery O2 Flow Rate FiO2 12/15/18 08:51 100 Venturi Mask 6.0 30 12/15/18 08:16 115 115/71 12/15/18 08:16 115 12/15/18 08:00 97.9 115 22 115/71 (86) 99 12/15/18 08:00 8.0 12/15/18 08:00 Venturi Mask 8.0 12/15/18 07:51 113 12/15/18 05:06 78 17 100 Full Face 40 12/15/18 03:53 98.2 76 20 132/64 (86) 98 12/15/18 03:51 Bi-pap 12/15/18 03:50 40 12/15/18 03:49 99 12/15/18 02:42 94 16 100 Full Face 40 12/15/18 00:47 96 14 100 Full Face 40 12/15/18 00:00 Bi-pap 12/15/18 00:00 40 12/15/18 00:00 98.0 76 20 118/54 (75) 98 12/14/18 23:25 95 12/14/18 22:40 101 18 100 Full Face 40 12/14/18 21:43 106 139/72 12/14/18 20:00 Venturi Mask 4.0 12/14/18 20:00 91 12/14/18 20:00 98.2 106 19 139/72 (94) 100 12/14/18 20:00 4.0 30 12/14/18 19:07 99 Venturi Mask 6.0 30 12/14/18 16:00 96 12/14/18 16:00 Bi-pap 12/14/18 16:00 8.0 40 12/14/18 16:00 98.6 86 16 106/69 (81) 98 12/14/18 12:00 8.0 40 12/14/18 12:00 98.6 83 14 143/62 (89) 100 12/14/18 12:00 Bi-pap 12/14/18 12:00 83 12/14/18 11:00 72 14 100 Full Face 40 12/14/18 08:52 80 14 100 Full Face 40 12/14/18 08:08 86 141/65 12/14/18 08:08 86 12/14/18 08:03 86 14 99 Full Face 40 12/14/18 08:00 40 12/14/18 08:00 Bi-pap 12/14/18 08:00 94 12/14/18 07:57 97.7 92 20 141/65 (90) 100 12/14/18 05:20 69 14 100 Full Face 40 12/14/18 04:25 98.4 12/14/18 04:00 Bi-pap 12/14/18 04:00 40 12/14/18 04:00 97.9 150 20 96/57 (70) 100 12/14/18 04:00 152 12/14/18 03:22 77 14 100 Facial 40 12/14/18 01:20 87 16 100 Facial 40 12/14/18 00:00 40 12/14/18 00:00 98.4 92 20 140/82 (101) 100 12/14/18 00:00 102 12/14/18 00:00 Bi-pap 12/13/18 23:20 98 18 100 Facial 40 12/13/18 21:15 87 18 100 Facial 40 12/13/18 21:11 92 128/64 12/13/18 20:00 40 12/13/18 20:00 113 12/13/18 20:00 Bi-pap 12/13/18 20:00 97.6 92 20 128/64 (85) 100 12/13/18 19:07 86 18 100 Facial 40 12/13/18 16:58 96 21 100 Facial 40 12/13/18 16:00 102 12/13/18 16:00 Bi-pap 12/13/18 16:00 40 12/13/18 16:00 98.5 101 19 132/60 (84) 100 12/13/18 15:08 95 21 100 Facial 40 12/13/18 13:28 89 21 95 Facial 40 Intake and Output 12/14/18 12/15/18 19:00 07:00 Intake Total 510 ml 1152.06536 ml Output Total 355 ml 710 ml Balance 155 ml 442.07124 ml Intake Free Water 180 ml 60 ml IV Total 732.18497 ml Tube Feeding 330 ml 360 ml Output Urine Total 350 ml 600 ml Drainage Total 5 ml 110 ml # Voids 1 # Bowel Movements 1 Labs Test 12/13/18 01:10 12/13/18 01:15 12/14/18 04:00 12/14/18 04:45 Urine Color Brown Urine Appearance Clear Urine pH 5 (4.5-8.0) Urine Specific [place] 1.020 (1.005-1.035) Urine Protein 2+ (NEGATIVE) Urine Glucose (UA) Negative (NEGATIVE) Urine Ketones 1+ (NEGATIVE) Urine Blood 1+ (NEGATIVE) Urine Nitrite Positive (NEGATIVE) Urine Bilirubin 1+ (NEGATIVE) Urine Ictotest Negative (NEGATIVE) Urine Urobilinogen Normal MG/DL (0.0-1.0) Urine Leukocyte Esterase 2+ (NEGATIVE) Urine RBC 0-2 /HPF (0 - 0) Urine WBC 2-4 /HPF (0 - 0) Urine Squamous Epithelial Cells Occasional /LPF Urine Amorphous Sediment Moderate /LPF (NONE) Urine Bacteria Moderate /HPF (NONE) Urine Mucus Few /LPF (NONE/OCC) Sodium Level 139 MMOL/L (136-145) 145 MMOL/L (136-145) Potassium Level 3.7 MMOL/L (3.5-5.1) 2.9 MMOL/L (3.5-5.1) Chloride Level 110 MMOL/L (98-107) 111 MMOL/L (98-107) Carbon Dioxide Level 24 MMOL/L (21-32) 24 MMOL/L (21-32) Anion Gap 5 mmol/L (5-15) 10 mmol/L (5-15) Blood Urea Nitrogen 5 mg/dL (7-18) 7 mg/dL (7-18) Creatinine 0.5 MG/DL (0.55-1.30) 0.5 MG/DL (0.55-1.30) Estimat Glomerular Filtration Rate mL/min (>60) mL/min (>60) Glucose Level 114 MG/DL (74-106) 131 MG/DL (74-106) Lactic Acid Level 1.50 mmol/L (0.4-2.0) Calcium Level 7.8 MG/DL (8.5-10.1) 7.8 MG/DL (8.5-10.1) Total Bilirubin 1.8 MG/DL (0.2-1.0) Direct Bilirubin 1.3 MG/DL (0.0-0.3) Aspartate Amino Transf (AST/SGOT) 19 U/L (15-37) Alanine Aminotransferase (ALT/SGPT) 10 U/L (12-78) Alkaline Phosphatase 327 U/L (46-116) Total Creatine Kinase 15 U/L (26-308) Creatine Kinase MB 1.7 NG/ML (0.0-3.6) Creatine Kinase MB Relative Index 11.3 Troponin I 0.042 ng/mL (0.000-0.056) Pro-B-Type Natriuretic Peptide 2993 pg/mL (0-125) Total Protein 4.7 G/DL (6.4-8.2) Albumin 1.7 G/DL (3.4-5.0) 1.4 G/DL (3.4-5.0) Globulin 3.0 g/dL Albumin/Globulin Ratio 0.6 (1.0-2.7) White Blood Count 16.3 K/UL (4.8-10.8) 9.9 K/UL (4.8-10.8) Red Blood Count 2.77 M/UL (4.70-6.10) 2.41 M/UL (4.70-6.10) Hemoglobin 8.5 G/DL (14.2-18.0) 7.5 G/DL (14.2-18.0) Hematocrit 26.6 % (42.0-52.0) 23.5 % (42.0-52.0) Mean Corpuscular Volume 96 FL (80-99) 97 FL (80-99) Mean Corpuscular Hemoglobin 30.8 PG (27.0-31.0) 31.0 PG (27.0-31.0) Mean Corpuscular Hemoglobin Concent 32.1 G/DL (32.0-36.0) 31.9 G/DL (32.0-36.0) Red Cell Distribution Width 16.4 % (11.6-14.8) 17.0 % (11.6-14.8) Platelet Count 335 K/UL (150-450) 300 K/UL (150-450) Mean Platelet Volume 6.3 FL (6.5-10.1) 6.2 FL (6.5-10.1) Neutrophils (%) (Auto) % (45.0-75.0) % (45.0-75.0) Lymphocytes (%) (Auto) % (20.0-45.0) % (20.0-45.0) Monocytes (%) (Auto) % (1.0-10.0) % (1.0-10.0) Eosinophils (%) (Auto) % (0.0-3.0) % (0.0-3.0) Basophils (%) (Auto) % (0.0-2.0) % (0.0-2.0) Differential Total Cells Counted 100 100 Neutrophils % (Manual) 89 % (45-75) 86 % (45-75) Lymphocytes % (Manual) 6 % (20-45) 9 % (20-45) Monocytes % (Manual) 4 % (1-10) 2 % (1-10) Eosinophils % (Manual) 1 % (0-3) 3 % (0-3) Basophils % (Manual) 0 % (0-2) 0 % (0-2) Band Neutrophils 0 % (0-8) 0 % (0-8) Platelet Estimate Adequate Adequate Platelet Morphology Normal Normal Arterial Blood pH 7.480 (7.350-7.450) 7.464 (7.350-7.450) Arterial Blood Partial Pressure CO2 26.1 mmHg (35.0-45.0) 32.3 mmHg (35.0-45.0) Arterial Blood Partial Pressure O2 126.0 mmHg (75.0-100.0) 117.9 mmHg (75.0-100.0) Arterial Blood HCO3 19.0 mmol/L (22.0-26.0) 22.7 mmol/L (22.0-26.0) Arterial Blood Oxygen Saturation 97.9 % (95-100) 98.2 % (95-100) Arterial Blood Base Excess -3.5 (-2-2) -0.9 (-2-2) Blake Test Positive Positive Hypochromasia 1+ Anisocytosis 1+ Phosphorus Level 3.4 MG/DL (2.5-4.9) Random Amikacin Level 11.7 ug/mL Digoxin Level < 0.2 NG/ML (0.5-2.0) Test 7/21/19 19:55 12/15/18 03:00 12/15/18 08:14 Vancomycin Level Trough 17.5 ug/mL (5.0-12.0) White Blood Count 8.3 K/UL (4.8-10.8) Red Blood Count 2.30 M/UL (4.70-6.10) Hemoglobin 7.1 G/DL (14.2-18.0) Hematocrit 22.5 % (42.0-52.0) Mean Corpuscular Volume 98 FL (80-99) Mean Corpuscular Hemoglobin 30.7 PG (27.0-31.0) Mean Corpuscular Hemoglobin Concent 31.3 G/DL (32.0-36.0) Red Cell Distribution Width 16.7 % (11.6-14.8) Platelet Count 268 K/UL (150-450) Mean Platelet Volume 6.0 FL (6.5-10.1) Neutrophils (%) (Auto) % (45.0-75.0) Lymphocytes (%) (Auto) % (20.0-45.0) Monocytes (%) (Auto) % (1.0-10.0) Eosinophils (%) (Auto) % (0.0-3.0) Basophils (%) (Auto) % (0.0-2.0) Differential Total Cells Counted 100 Neutrophils % (Manual) 89 % (45-75) Lymphocytes % (Manual) 6 % (20-45) Monocytes % (Manual) 4 % (1-10) Eosinophils % (Manual) 1 % (0-3) Basophils % (Manual) 0 % (0-2) Band Neutrophils 0 % (0-8) Platelet Estimate Adequate Platelet Morphology Normal Hypochromasia 2+ Anisocytosis 1+ Sodium Level 140 MMOL/L (136-145) Potassium Level 2.9 MMOL/L (3.5-5.1) Chloride Level 109 MMOL/L (98-107) Carbon Dioxide Level 25 MMOL/L (21-32) Anion Gap 6 mmol/L (5-15) Blood Urea Nitrogen 7 mg/dL (7-18) Creatinine 0.5 MG/DL (0.55-1.30) Estimat Glomerular Filtration Rate mL/min (>60) Glucose Level 131 MG/DL (74-106) Calcium Level 7.5 MG/DL (8.5-10.1) Magnesium Level 1.4 MG/DL (1.8-2.4) Arterial Blood pH 7.475 (7.350-7.450) Arterial Blood Partial Pressure CO2 31.3 mmHg (35.0-45.0) Arterial Blood Partial Pressure O2 110.7 mmHg (75.0-100.0) Arterial Blood HCO3 22.5 mmol/L (22.0-26.0) Arterial Blood Oxygen Saturation 97.7 % (95-100) Arterial Blood Base Excess -0.8 (-2-2) Blake Test Positive Height (Feet): 5 Height (Inches): 5.00 Weight (Pounds): 180 Objective PHYSICAL EXAM General Appearance: WD/WN Lines, tubes and drains: central line HEENT: normocephalic, atraumatic Neck: non-tender, normal alignment Breasts: no masses Cardiovascular/Chest: normal peripheral pulses, normal rate, regular rhythm ++ bipap Abdomen: normal bowel sounds, non tender ++ peg Genitourinary/Rectal: normal genital exam, heme negative stool Extremities: normal range of motion Skin Exam: normal pigmentation Neurologic: threat monitoring analyst II-XII grossly normal Avery Giang MD Dec 15, 2018 12:12
--- NOTE | 2018-12-15 12:26 | Consultation ---
Consult Note Consult Note known to me from his previous admission- readmitted less than one day after discharge asked to assist with fluid and lyte management examined- data reviewed discussed with RN . Assessment/Plan UTI (urinary tract infection) Anemia, chronic disease Alzheimer's dementia Parkinson disease h/o C. difficile colitis Perforated duodenal ulcer Laparatomy Op 12/02/18) other: Pneumonia UTI, h/o bacteremia sacral decub dementia HTN Sz disorder Parkinsons severe Anemia Plan transfuse Trial Albumin for low bp as needed midodrine PRN K and Mag and Phos supplement as needed Transfuse as needed roberto carlos khalil discussed Kendall Case RN, MD Dec 15, 2018 12:26
--- NOTE | 2018-12-15 12:53 | Diagnostic Imaging Report ---
Indication: Dyspnea Technique: One view of the chest Comparison: 12/14/2018 Findings: Less optimal inspiration currently. Bilateral interstitial and airspace opacities, moderate left pleural effusion persists, unchanged. Right subclavian central venous catheter is again demonstrated. The heart remains enlarged. Impression: Unchanged, over one day, findings as above.
--- NOTE | 2018-12-15 13:24 | Surgery Progress Note ---
Surgery Progress Note Subjective Additional Comments no acute events bilious drainage from elizabeth drain labs noted Objective Last 24 Hour Vital Signs Date Time Temp Pulse Resp B/P (MAP) Pulse Ox O2 Delivery O2 Flow Rate FiO2 12/15/18 12:00 Venturi Mask 8.0 12/15/18 12:00 8.0 12/15/18 12:00 97.5 93 22 117/73 (88) 98 12/15/18 11:44 101 12/15/18 08:51 100 Venturi Mask 6.0 30 12/15/18 08:16 115 115/71 12/15/18 08:16 115 12/15/18 08:00 97.9 115 22 115/71 (86) 99 12/15/18 08:00 8.0 12/15/18 08:00 Venturi Mask 8.0 12/15/18 07:51 113 12/15/18 05:06 78 17 100 Full Face 40 12/15/18 03:53 98.2 76 20 132/64 (86) 98 12/15/18 03:51 Bi-pap 12/15/18 03:50 40 12/15/18 03:49 99 12/15/18 02:42 94 16 100 Full Face 40 12/15/18 00:47 96 14 100 Full Face 40 12/15/18 00:00 Bi-pap 12/15/18 00:00 40 12/15/18 00:00 98.0 76 20 118/54 (75) 98 12/14/18 23:25 95 12/14/18 22:40 101 18 100 Full Face 40 12/14/18 21:43 106 139/72 12/14/18 20:00 Venturi Mask 4.0 12/14/18 20:00 91 12/14/18 20:00 98.2 106 19 139/72 (94) 100 12/14/18 20:00 4.0 30 12/14/18 19:07 99 Venturi Mask 6.0 30 12/14/18 16:00 96 12/14/18 16:00 Bi-pap 12/14/18 16:00 8.0 40 12/14/18 16:00 98.6 86 16 106/69 (81) 98 I&O Intake and Output 12/14/18 12/15/18 19:00 07:00 Intake Total 510 ml 1152.09517 ml Output Total 355 ml 710 ml Balance 155 ml 442.91372 ml Intake Free Water 180 ml 60 ml IV Total 732.69810 ml Tube Feeding 330 ml 360 ml Output Urine Total 350 ml 600 ml Drainage Total 5 ml 110 ml # Voids 1 # Bowel Movements 1 Dressing: saturated Wound: other Drains: tawanda Cardiovascular: RSR Respiratory: decreased breath sounds Abdomen: soft, present bowel sounds, non-distended Extremities: no tenderness, no cyanosis Laboratory Tests Test 12/14/18 19:55 12/15/18 03:00 12/15/18 08:14 Vancomycin Level Trough 17.5 ug/mL (5.0-12.0) H White Blood Count 8.3 K/UL (4.8-10.8) Red Blood Count 2.30 M/UL (4.70-6.10) L Hemoglobin 7.1 G/DL (14.2-18.0) L Hematocrit 22.5 % (42.0-52.0) L Mean Corpuscular Volume 98 FL (80-99) Mean Corpuscular Hemoglobin 30.7 PG (27.0-31.0) Mean Corpuscular Hemoglobin Concent 31.3 G/DL (32.0-36.0) L Red Cell Distribution Width 16.7 % (11.6-14.8) H Platelet Count 268 K/UL (150-450) Mean Platelet Volume 6.0 FL (6.5-10.1) L Neutrophils (%) (Auto) % (45.0-75.0) Lymphocytes (%) (Auto) % (20.0-45.0) Monocytes (%) (Auto) % (1.0-10.0) Eosinophils (%) (Auto) % (0.0-3.0) Basophils (%) (Auto) % (0.0-2.0) Differential Total Cells Counted 100 Neutrophils % (Manual) 89 % (45-75) H Lymphocytes % (Manual) 6 % (20-45) L Monocytes % (Manual) 4 % (1-10) Eosinophils % (Manual) 1 % (0-3) Basophils % (Manual) 0 % (0-2) Band Neutrophils 0 % (0-8) Platelet Estimate Adequate Platelet Morphology Normal Hypochromasia 2+ Anisocytosis 1+ Sodium Level 140 MMOL/L (136-145) Potassium Level 2.9 MMOL/L (3.5-5.1) L Chloride Level 109 MMOL/L (98-107) H Carbon Dioxide Level 25 MMOL/L (21-32) Anion Gap 6 mmol/L (5-15) Blood Urea Nitrogen 7 mg/dL (7-18) Creatinine 0.5 MG/DL (0.55-1.30) L Estimat Glomerular Filtration Rate mL/min (>60) Glucose Level 131 MG/DL (74-106) H Calcium Level 7.5 MG/DL (8.5-10.1) L Magnesium Level 1.4 MG/DL (1.8-2.4) L Arterial Blood pH 7.475 (7.350-7.450) Arterial Blood Partial Pressure CO2 31.3 mmHg (35.0-45.0) L Arterial Blood Partial Pressure O2 110.7 mmHg (75.0-100.0) H Arterial Blood HCO3 22.5 mmol/L (22.0-26.0) Arterial Blood Oxygen Saturation 97.7 % (95-100) Arterial Blood Base Excess -0.8 (-2-2) Blake Test Positive Plan Problems: (1) Duodenal ulcer hemorrhage Assessment & Plan: 73-year-old male well-known to me from recent surgery. Patient was admitted prior with GI bleed identified to have a actively bleeding duodenal ulcer status post expiratory laparotomy. Please refer to prior operative note for details. [facility] but returned with altered status and a respiratory distress. Patient readmitted and placed on BiPAP. Since her respiratory distress has improved and is now on facemask. On admission patient with leukocytosis 16,000 which is resolved now. Electrolyte abnormal. Surgery called for continued postoperative care while inpatient. -elizabeth drain care / management will need to leave drain in for some time now as patient likely developed duodenal leak that is contained -abd exam stable labs improved cont with abx as per ID will follow with Andrew Dwyer Dec 15, 2018 13:24
--- NOTE | 2018-12-15 14:05 | NUR ---
*-* DISCHARGE PLANNING *-* PATIENT HAS BEEN REFERRED TO: [facility] ATTN: BUTCH F:[phone]
--- NOTE | 2018-12-15 15:40 | NUR ---
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 97.0 HR 126 RR 30 B/P 145/67 BIPAP 10/5 FIO2 40% WBC 16.3 BNP 2993 UA+PROTEIN,NITRITES,KETONES,BLOOD,BILIRUBIN,LEUKOCYTE ESTERASE CXR=PULMONARY EDEMA VS INFILTRATIONS IS: IV BOLUS NS X 1 LITER ADMITTED TO STEP DOWN UNIT@ 0410 STEP DOWN STATUS DCP PENDING HOSPITAL STAY
--- NOTE | 2018-12-15 16:50 | NUR ---
NURSE NOTES: 1PRBC transfusion started, will monitor for adverse transfusion reaction.
--- NOTE | 2018-12-15 18:15 | Progress Note ---
DATE: 12/15/2018 SUBJECTIVE: This is a 73-year-old male patient. He has shortness of breath. He is confused and disorganized. He has got mood lability. He has got no logical plan for his own self-care. activity. MENTAL STATUS EXAMINATION: This is a 73-year-old male. Appearance is disheveled. Attitude, irritable and agitated. Affect, guarded and restricted. Intellect, poor. Mood, depressed and anxious. Motor activity, psychomotor agitation. Attention span is poor. Orientation x2. Speech is low volume, slurred. Thought process is disorganized and illogical. Insight and judgment is poor. DIAGNOSIS: Major depressive disorder, mild, recurrent with psychotic features. PLAN: Continue treatment with medications to prevent any further decline in cognition. A 20 minutes of cognitive behavioral therapy to help him identify his automatic negative thoughts and help convert those negative thoughts to more positive thoughts to reduce depression, anxiety, and mood lability. Chart reviewed. Discussed with staff. Seen and assessed at bedside. Laith Mason M.D. DR: ELLYN JOB#: [id number] CC:
--- NOTE | 2018-12-15 19:10 | NUR ---
HAND-OFF: Report given to MONA sanders.
--- NOTE | 2018-12-15 19:11 | NUR ---
NURSE NOTES: Received patient from [facility]. Patient is obtunded and receiving oxygen via venturi mask at 4L/min, patient saturating at 100%, showing no signs of respiratory distress. ANGIE Drain is patent and draining, Bradley catheter is intact and draining. IV site is subclavian TLC, receiving 1 pack RBC. Bed is locked, placed in lowest position, side rails up x3 and padded, bed alarm on. Will continue to monitor. Addendum: 12/16/18 at 0405 by Benitez Gonzalez RN Venturi mask at 8L/min
--- NOTE | 2018-12-15 19:39 | Cardiac Electrophysiology PN ---
Assessment/Plan Assessment/Plan 1. Post op atrial fib with RVR 170s. On Dig 0.125 PEG daily and Lopressor 25 GT bid In SR with frequent PAC and PVC. 2. S/P Septic and hemorrhagic shock . Echo EF 55% 3. Acute right leg DVT and Bilateral UE DVT. S/P IVC filter . Off Eliquis for severe anemia and GI bleed 4. Staph aureous bacteremia. On Abx per Dr Yee 5. Parkinsonism. 6. COPD. 7. UTI. 8. Severe anemia and rectal bleed. S/P Colonoscopy on 11/20/18 and 11/29/18 and transfusion No obvious source. S/P EGD by Dr Dallas and Anterior duodenostomy for control of large posterior duodenal ulcer hemorrhage by Dr Eugnee on 12/02/18 Getting transfusion again 9. Seizure disorder. 10. S/P PEG 11. Respiratory failure, extubated 12/08/18. EHSAN RN Subjective Subjective Getting blood transfusion. On Face Mask Objective Last 24 Hour Vital Signs Date Time Temp Pulse Resp B/P (MAP) Pulse Ox O2 Delivery O2 Flow Rate FiO2 12/15/18 17:05 98.2 106 21 118/64 (82) 99 12/15/18 16:50 98.1 108 21 127/89 (102) 99 12/15/18 16:00 98.1 117 22 122/81 (95) 99 12/15/18 16:00 Venturi Mask 8.0 12/15/18 16:00 8.0 12/15/18 15:45 106 12/15/18 12:00 Venturi Mask 8.0 12/15/18 12:00 8.0 12/15/18 12:00 97.5 93 22 117/73 (88) 98 12/15/18 11:44 101 12/15/18 08:51 100 Venturi Mask 6.0 30 12/15/18 08:16 115 115/71 12/15/18 08:16 115 12/15/18 08:00 97.9 115 22 115/71 (86) 99 12/15/18 08:00 8.0 12/15/18 08:00 Venturi Mask 8.0 12/15/18 07:51 113 12/15/18 05:06 78 17 100 Full Face 40 12/15/18 03:53 98.2 76 20 132/64 (86) 98 12/15/18 03:51 Bi-pap 12/15/18 03:50 40 12/15/18 03:49 99 12/15/18 02:42 94 16 100 Full Face 40 12/15/18 00:47 96 14 100 Full Face 40 12/15/18 00:00 Bi-pap 12/15/18 00:00 40 12/15/18 00:00 98.0 76 20 118/54 (75) 98 12/14/18 23:25 95 12/14/18 22:40 101 18 100 Full Face 40 12/14/18 21:43 106 139/72 12/14/18 20:00 Venturi Mask 4.0 12/14/18 20:00 91 12/14/18 20:00 98.2 106 19 139/72 (94) 100 12/14/18 20:00 4.0 30 Intake and Output 12/14/18 12/15/18 18:59 06:59 Intake Total 540 ml 1122.69171 ml Output Total 355 ml 710 ml Balance 185 ml 412.18349 ml Intake Free Water 180 ml 60 ml IV Total 732.21727 ml Tube Feeding 360 ml 330 ml Output Urine Total 350 ml 600 ml Drainage Total 5 ml 110 ml # Voids 1 # Bowel Movements 1 Laboratory Tests Test 12/14/18 19:55 12/15/18 03:00 12/15/18 08:14 Vancomycin Level Trough 17.5 ug/mL (5.0-12.0) H White Blood Count 8.3 K/UL (4.8-10.8) Red Blood Count 2.30 M/UL (4.70-6.10) L Hemoglobin 7.1 G/DL (14.2-18.0) L Hematocrit 22.5 % (42.0-52.0) L Mean Corpuscular Volume 98 FL (80-99) Mean Corpuscular Hemoglobin 30.7 PG (27.0-31.0) Mean Corpuscular Hemoglobin Concent 31.3 G/DL (32.0-36.0) L Red Cell Distribution Width 16.7 % (11.6-14.8) H Platelet Count 268 K/UL (150-450) Mean Platelet Volume 6.0 FL (6.5-10.1) L Neutrophils (%) (Auto) % (45.0-75.0) Lymphocytes (%) (Auto) % (20.0-45.0) Monocytes (%) (Auto) % (1.0-10.0) Eosinophils (%) (Auto) % (0.0-3.0) Basophils (%) (Auto) % (0.0-2.0) Differential Total Cells Counted 100 Neutrophils % (Manual) 89 % (45-75) H Lymphocytes % (Manual) 6 % (20-45) L Monocytes % (Manual) 4 % (1-10) Eosinophils % (Manual) 1 % (0-3) Basophils % (Manual) 0 % (0-2) Band Neutrophils 0 % (0-8) Platelet Estimate Adequate Platelet Morphology Normal Hypochromasia 2+ Anisocytosis 1+ Sodium Level 140 MMOL/L (136-145) Potassium Level 2.9 MMOL/L (3.5-5.1) L Chloride Level 109 MMOL/L (98-107) H Carbon Dioxide Level 25 MMOL/L (21-32) Anion Gap 6 mmol/L (5-15) Blood Urea Nitrogen 7 mg/dL (7-18) Creatinine 0.5 MG/DL (0.55-1.30) L Estimat Glomerular Filtration Rate mL/min (>60) Glucose Level 131 MG/DL (74-106) H Calcium Level 7.5 MG/DL (8.5-10.1) L Magnesium Level 1.4 MG/DL (1.8-2.4) L Arterial Blood pH 7.475 (7.350-7.450) Arterial Blood Partial Pressure CO2 31.3 mmHg (35.0-45.0) L Arterial Blood Partial Pressure O2 110.7 mmHg (75.0-100.0) H Arterial Blood HCO3 22.5 mmol/L (22.0-26.0) Arterial Blood Oxygen Saturation 97.7 % (95-100) Arterial Blood Base Excess -0.8 (-2-2) Blake Test Positive Microbiology Date/Time Source Procedure Growth Status 12/13/18 01:10 Blood Blood Culture - Preliminary NO GROWTH AFTER 48 HOURS Resulted 12/13/18 00:55 Blood Blood Culture - Preliminary NO GROWTH AFTER 48 HOURS Resulted 12/13/18 09:55 Sputum Gram Stain - Final Resulted 12/13/18 09:55 Sputum Culture - Preliminary Citrobacter Diversus Resulted 12/13/18 01:00 Nasal Nares MRSA Culture - Final NO METHICILLIN RESISTANT STAPH AUREUS... Complete 12/13/18 01:10 Urine,Clean Catch Urine Culture - Preliminary Gram Negative Bacillus 1 Resulted 12/13/18 04:00 Sacral Wound Gram Stain - Final Resulted 12/13/18 04:00 Wound Culture - Preliminary Citrobacter Diversus Diphtheroids Gram Positive Cocci Resulted 12/13/18 01:00 Rectum - Final NO CARBAPENEM-RESISTANT ENTEROBACTERI... Complete 12/13/18 01:00 Rectum VRE Culture - Final Enterococcus Faecium - Vre Complete Objective HEAD AND NECK: No JVD LUNGS: Decreased breath sounds. CARDIOVASCULAR: Regular S1 and S2 with no gallop . ABDOMEN: Soft. G-tube intact. S/P Laparatomy with ANGIE drain EXTREMITIES: Upper extremity and LE edema. Earl Washington MD Dec 15, 2018 19:39
--- NOTE | 2018-12-15 20:34 | Cardiology Report ---
APPROVED REPORT EKG Measurement Heart [id number] 144P36 [id number] Multifocal atrial tachycardia Low voltage QRS Borderline ECG
--- NOTE | 2018-12-15 20:40 | Cardiology Report ---
APPROVED REPORT EKG Measurement Heart [id number] [id number] [id number] Multifocal atrial tachycardia with single VPC. Cannot rule out Anterior infarct, age undetermined Abnormal ECG
[2018-12-15] MEDS: Dakin's 0.125% Soln (Quarter Strength) 16oz TOPIC SCH (20:53)
--- NOTE | 2018-12-15 21:06 | Cardiology Report ---
APPROVED REPORT EKG Measurement Heart [id number] Supraventricular tachycardia Nonspecific T wave abnormality Abnormal ECG
--- NOTE | 2018-12-15 23:10 | NUR ---
RESPIRATORY NOTE: PT PLACED ON BIPAP WITH CURRENT RESPIRATORY ORDERS. 02/28 RATE 14, 40%. ALARMS ARE ON AND AUDIBLE. PT CURRENTLY ON FULL FACE MASK. NO FACIAL WOUNDS FOUND UPON FACIAL INSPECTION. FOAM TAPE PLACE UNDER MASK TO TO PROTECT FACE. NO S/S OF RESPIRATORY DISTRESS NOTED AT THIS TIME. WILL CONTINUE TO MONITOR.
[2018-12-16] VITALS: BP 148/66
[2018-12-16 04:00] VITALS: BP 124/60
--- NOTE | 2018-12-16 05:05 | NUR ---
RESPIRATORY NOTE: PT. REMAINED STABLE BIPAP WITH CURRENT SETTINGS. MASK REMOVED AT 0529 AND PT WAS PLACED ON VENTI MASK @ 4LPM, 30 % FIO2. ALL VS ARE WNL. NO S/S OF RESPIRATORY DISTRESS ARE NOTED AT THIS TIME.
[2018-12-16] MEDS: Lactobacillus-GG tablet GT SCH ×3 (05:42→21:20)
[2018-12-16 06:52] LABS: BASOPHILS % (AUTO) 0.6 % (0.0-2.0); EOSINOPHILS % (AUTO) 1.6 % (0.0-3.0); HEMATOCRIT 26.9 % (42.0-52.0); HEMOGLOBIN 8.7 G/DL (14.2-18.0); LYMPHOCYTES % (AUTO) 12.2 % (20.0-45.0); MEAN CORPUSCULAR VOLUME 96 FL (80-99); MONOCYTES % (AUTO) 7.6 % (1.0-10.0); NEUTROPHILS % (AUTO) 78.1 % (45.0-75.0); PLATELET COUNT 290 K/UL (150-450); RED BLOOD COUNT 2.81 M/UL (4.70-6.10); WHITE BLOOD COUNT 8.3 K/UL (4.8-10.8)
--- NOTE | 2018-12-16 07:05 | NUR ---
HAND-OFF: Report given to Ania DUNN. Patient in stable condition.
--- NOTE | 2018-12-16 07:15 | NUR ---
NURSE NOTES: Received report from Adilene Gonzalez RN. Patient awake, tracks with eyes but unable to follow commands, nonverbal, unable to make needs known. Receiving O2 via Venturi mask @ 4 L/min, FiO2 30%, saturating at 99%. GT feeding of Vital AF 1.2 running @ 30 cc/hr, no residuals noted. Bradley catheter patent and draining well. ANGIE drain noted on LLQ with negative pressure, dark green drainage present. Right subclavian TLC intact and asymptomatic. Bed locked in lowest position with side rails up x 3. All needs attended to. Call light within reach. Will continue to monitor.
[2018-12-16 07:23] LABS: ALANINE AMINOTRANSFERASE 15 U/L (12-78); ALBUMIN 1.3 G/DL (3.4-5.0); ALBUMIN/GLOBULIN RATIO 0.4 (1.0-2.7); ALKALINE PHOSPHATASE 753 U/L (46-116); ANION GAP 5 mmol/L (5-15); ASPARTATE AMINO TRANSFERASE 44 U/L (15-37); BILIRUBIN,TOTAL 1.6 MG/DL (0.2-1.0); BLOOD UREA NITROGEN 7 mg/dL (7-18); CALCIUM 7.6 MG/DL (8.5-10.1); CARBON DIOXIDE 26 MMOL/L (21-32); CHLORIDE 108 MMOL/L (98-107); CREATININE 0.4 MG/DL (0.55-1.30); PHOSPHORUS 2.2 MG/DL (2.5-4.9); SODIUM 139 MMOL/L (136-145)
[2018-12-16 08:00] VITALS: BP 135/71
--- NOTE | 2018-12-16 08:11 | GI Progress Note ---
Assessment/Plan Problems: (1) Duodenal ulcer hemorrhage ICD Codes: K26.4 - Chronic or unspecified duodenal ulcer with hemorrhage SNOMED: 68373567 (2) Feeding by G-tube ICD Codes: Z93.1 - Gastrostomy status SNOMED: 822733431, 702235817, 573605502 (3) SOB (shortness of breath) ICD Codes: R06.02 - Shortness of breath SNOMED: 892861363 (4) Perforated duodenal ulcer ICD Codes: K26.5 - Chronic or unspecified duodenal ulcer with perforation SNOMED: 54003006 (5) Severe protein-calorie malnutrition ICD Codes: E43 - Unspecified severe protein-calorie malnutrition SNOMED: 273499345, 191911679, 041025490 Status: unchanged Status Narrative Discussed with Dr. Dallas. Assessment/Plan Duodenal ulcer, s/p SURG TF per surgery iv ppi stable H&H will fu may need TPN if prolonged NPO status anticipated The patient was seen and examined at bedside and all new and available data was reviewed in the patients chart. I agree with the above findings, impression and plan. (Patient seen earlier today. Signature stamp does not reflect patient encounter time.). - Deacon Dallas MD Subjective Subjective Limited Objective Last 24 Hour Vital Signs Date Time Temp Pulse Resp B/P (MAP) Pulse Ox O2 Delivery O2 Flow Rate FiO2 12/16/18 05:29 95 20 99 12/16/18 05:05 83 19 100 Full Face 40 12/16/18 04:00 Venturi Mask 8.0 12/16/18 04:00 99.0 122 14 124/60 (81) 100 12/16/18 04:00 8.0 12/16/18 03:29 101 12/16/18 01:10 105 22 99 Full Face 40 12/16/18 00:00 Venturi Mask 8.0 12/16/18 00:00 98.8 99 16 148/66 (93) 100 12/15/18 23:35 100 12/15/18 23:10 98 16 100 Full Face 40 12/15/18 23:10 100 Venturi Mask 4.0 30 12/15/18 20:53 105 124/92 12/15/18 20:00 Venturi Mask 8.0 12/15/18 20:00 98.7 88 24 151/83 (105) 100 12/15/18 20:00 8.0 12/15/18 19:58 108 12/15/18 17:05 98.2 106 21 118/64 (82) 99 12/15/18 16:50 98.1 108 21 127/89 (102) 99 12/15/18 16:00 98.1 117 22 122/81 (95) 99 12/15/18 16:00 Venturi Mask 8.0 12/15/18 16:00 8.0 12/15/18 15:45 106 12/15/18 12:00 Venturi Mask 8.0 12/15/18 12:00 8.0 12/15/18 12:00 97.5 93 22 117/73 (88) 98 12/15/18 11:44 101 12/15/18 08:51 100 Venturi Mask 6.0 30 12/15/18 08:16 115 115/71 12/15/18 08:16 115 Intake and Output 12/15/18 12/16/18 19:00 07:00 Intake Total 817.5 ml 470 ml Output Total 1000 ml 700 ml Balance -182.5 ml -230 ml IV Total 357.5 ml 110 ml Tube Feeding 360 ml 360 ml Other 100 ml Output Urine Total 1000 ml 600 ml Drainage Total 100 ml # Bowel Movements 2 1 Laboratory Tests Test 12/15/18 08:14 12/16/18 04:30 Arterial Blood pH 7.475 (7.350-7.450) Arterial Blood Partial Pressure CO2 31.3 mmHg (35.0-45.0) L Arterial Blood Partial Pressure O2 110.7 mmHg (75.0-100.0) H Arterial Blood HCO3 22.5 mmol/L (22.0-26.0) Arterial Blood Oxygen Saturation 97.7 % (95-100) Arterial Blood Base Excess -0.8 (-2-2) Blake Test Positive White Blood Count 8.3 K/UL (4.8-10.8) Red Blood Count 2.81 M/UL (4.70-6.10) L Hemoglobin 8.7 G/DL (14.2-18.0) L Hematocrit 26.9 % (42.0-52.0) L Mean Corpuscular Volume 96 FL (80-99) Mean Corpuscular Hemoglobin 30.9 PG (27.0-31.0) Mean Corpuscular Hemoglobin Concent 32.3 G/DL (32.0-36.0) Red Cell Distribution Width 16.0 % (11.6-14.8) H Platelet Count 290 K/UL (150-450) Mean Platelet Volume 6.3 FL (6.5-10.1) L Neutrophils (%) (Auto) 78.1 % (45.0-75.0) H Lymphocytes (%) (Auto) 12.2 % (20.0-45.0) L Monocytes (%) (Auto) 7.6 % (1.0-10.0) Eosinophils (%) (Auto) 1.6 % (0.0-3.0) Basophils (%) (Auto) 0.6 % (0.0-2.0) Sodium Level 139 MMOL/L (136-145) Potassium Level 3.0 MMOL/L (3.5-5.1) L Chloride Level 108 MMOL/L (98-107) H Carbon Dioxide Level 26 MMOL/L (21-32) Anion Gap 5 mmol/L (5-15) Blood Urea Nitrogen 7 mg/dL (7-18) Creatinine 0.4 MG/DL (0.55-1.30) L Estimat Glomerular Filtration Rate mL/min (>60) Glucose Level 122 MG/DL (74-106) H Uric Acid 3.2 MG/DL (2.6-7.2) Calcium Level 7.6 MG/DL (8.5-10.1) L Phosphorus Level 2.2 MG/DL (2.5-4.9) L Magnesium Level 2.0 MG/DL (1.8-2.4) Total Bilirubin 1.6 MG/DL (0.2-1.0) H Direct Bilirubin 1.0 MG/DL (0.0-0.3) H Aspartate Amino Transf (AST/SGOT) 44 U/L (15-37) H Alanine Aminotransferase (ALT/SGPT) 15 U/L (12-78) Alkaline Phosphatase 753 U/L (46-116) H Total Protein 4.3 G/DL (6.4-8.2) L Albumin 1.3 G/DL (3.4-5.0) L Globulin 3.0 g/dL Albumin/Globulin Ratio 0.4 (1.0-2.7) L Height (Feet): 5 Height (Inches): 5.00 Weight (Pounds): 180 General Appearance: no apparent distress Cardiovascular: normal rate Respiratory/Chest: normal breath sounds, no respiratory distress Abdominal Exam: normal bowel sounds, non tender, soft Extremities: normal range of motion, non-tender Objective The patient was discharged over the weekend, return back to the hospital after episode of shortness of breath. Sohan Kohli SUPPLY REQUIREMENTS OFFICER Dec 16, 2018 08:11
[2018-12-16] MEDS: Pantoprazole Inj IVP SCH (09:30)
[2018-12-16] MEDS: Cefepime HCl 2 GM in D5W 110 ML IV SCH ×2 (09:31→20:27)
[2018-12-16] MEDS: Metoprolol 25mg tab GT SCH (09:31)
[2018-12-16] MEDS: Digoxin 0.125mg tab GT SCH (09:31)
[2018-12-16] MEDS: Heparin 5000 units/ml inj SUBQ SCH ×2 (09:32→20:29)
[2018-12-16] MEDS: Hydrocortisone 2.5% Cream - 30gm TOPIC SCH ×2 (09:32→20:28)
--- NOTE | 2018-12-16 09:59 | Progress Note ---
DATE: 12/16/2018 SUBJECTIVE: This is a 73-year-old patient with shortness of breath. ____ confused and disorganized. He has got no logical plan for his own self-care. He has got feelings of helplessness, hopelessness, low energy, poor appetite, loss of interest in activity. DIAGNOSIS: Major depressive disorder, mild, recurrent with psychotic features. PLAN: Continue treatment with medications to clear off disorganized thought process. Provided him with 20 minutes of cognitive behavioral therapy to help him identify his automatic negative thoughts and help convert those negative thoughts to more positive thoughts to reduce depression, anxiety, and mood lability. Chart reviewed. Discussed with staff. Seen and assessed at bedside. Laith Mason M.D. DR: MILY JOB#: [id number] CC:
--- NOTE | 2018-12-16 10:17 | NUR ---
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 EKG done and noted with rhythm of Sinus tachycardia 142 with occasional PVCs, reported to Dr. Washington. Patient asymptomatic at this time, currently ST 120s. Will continue to monitor.
--- NOTE | 2018-12-16 10:20 | Pulmonology Progress Note ---
Assessment/Plan Problems: (1) Acute respiratory failure (2) COPD (chronic obstructive pulmonary disease) (3) C. difficile colitis (4) Severe protein-calorie malnutrition (5) S/P insertion of IVC (inferior vena caval) filter (6) Status post exploratory laparotomy (7) Parkinson disease (8) Alzheimer's dementia (9) Feeding by G-tube (10) Acute DVT (deep venous thrombosis) Assessment/Plan K and phos supplement iv abx check cultures cxr better transfuse one unit of prbc. Pt can't sign the consent. He doesn't have any family member to sign it. electrolytes supplement check H/h s/p ivc Subjective ROS Limited/Unobtainable: No Constitutional: Reports: no symptoms HEENT: Repors: no symptoms Respiratory: Reports: no symptoms Allergies: Coded Allergies: No Known Allergies (Unverified , 11/18/18) Objective Last 24 Hour Vital Signs Date Time Temp Pulse Resp B/P (MAP) Pulse Ox O2 Delivery O2 Flow Rate FiO2 12/16/18 09:31 103 135/71 12/16/18 09:31 103 12/16/18 08:00 4.0 30 12/16/18 08:00 98.1 103 22 135/71 (92) 100 12/16/18 05:29 95 20 99 12/16/18 05:05 83 19 100 Full Face 40 12/16/18 04:00 Venturi Mask 8.0 12/16/18 04:00 99.0 122 14 124/60 (81) 100 12/16/18 04:00 8.0 12/16/18 03:29 101 12/16/18 01:10 105 22 99 Full Face 40 12/16/18 00:00 Venturi Mask 8.0 12/16/18 00:00 98.8 99 16 148/66 (93) 100 12/15/18 23:35 100 12/15/18 23:10 98 16 100 Full Face 40 12/15/18 23:10 100 Venturi Mask 4.0 30 12/15/18 20:53 105 124/92 12/15/18 20:00 Venturi Mask 8.0 12/15/18 20:00 98.7 88 24 151/83 (105) 100 12/15/18 20:00 8.0 12/15/18 19:58 108 12/15/18 17:05 98.2 106 21 118/64 (82) 99 12/15/18 16:50 98.1 108 21 127/89 (102) 99 12/15/18 16:00 98.1 117 22 122/81 (95) 99 12/15/18 16:00 Venturi Mask 8.0 12/15/18 16:00 8.0 12/15/18 15:45 106 12/15/18 12:00 Venturi Mask 8.0 12/15/18 12:00 8.0 12/15/18 12:00 97.5 93 22 117/73 (88) 98 12/15/18 11:44 101 Intake and Output 12/15/18 12/16/18 19:00 07:00 Intake Total 817.5 ml 470 ml Output Total 1000 ml 700 ml Balance -182.5 ml -230 ml IV Total 357.5 ml 110 ml Tube Feeding 360 ml 360 ml Other 100 ml Output Urine Total 1000 ml 600 ml Drainage Total 100 ml # Bowel Movements 2 1 General Appearance: WD/WN HEENT: normocephalic, atraumatic Cardiovascular: normal peripheral pulses, normal rate Abdomen: normal bowel sounds, no organomegaly Genitourinary: normal external genitalia Skin: no rash Laboratory Tests 12/16/18 04:30: White Blood Count 8.3, Red Blood Count 2.81L, Hemoglobin 8.7L, Hematocrit 26.9L , Mean Corpuscular Volume 96, Mean Corpuscular Hemoglobin 30.9, Mean Corpuscular Hemoglobin Concent 32.3, Red Cell Distribution Width 16.0H, Platelet Count 290, Mean Platelet Volume 6.3L, Neutrophils (%) (Auto) 78.1H, Lymphocytes (%) (Auto) 12.2L, Monocytes (%) (Auto) 7.6, Eosinophils (%) (Auto) 1.6, Basophils (%) (Auto) 0.6, Sodium Level 139, Potassium Level 3.0L, Chloride Level 108H, Carbon Dioxide Level 26, Anion Gap 5, Blood Urea Nitrogen 7, Creatinine 0.4L, Estimat Glomerular Filtration Rate , Glucose Level 122H, Uric Acid 3.2, Calcium Level 7.6L, Phosphorus Level 2.2L, Magnesium Level 2.0, Total Bilirubin 1.6H, Direct Bilirubin 1.0H, Aspartate Amino Transf (AST/SGOT) 44H, Alanine Aminotransferase (ALT/SGPT) 15, Alkaline Phosphatase 753H, Total Protein 4.3L, Albumin 1.3L, Globulin 3.0, Albumin/Globulin Ratio 0.4L Current Medications Medications (Trade) Dose Ordered Sig/Pauline Route PRN Reason Start Time Stop Time Status Last Admin Dose Admin Acetaminophen (Tylenol) 650 mg Q4H PRN ORAL T>100.5 12/13/18 07:30 01/12/19 07:29 Albuterol/ Ipratropium (Albuterol/ Ipratropium) 3 ml Q4H PRN HHN Shortness of Breath 12/13/18 07:30 12/18/18 07:29 Cefepime HCl 2 gm/ Dextrose 110 ml @ 220 mls/hr EVERY 12 HOURS IV 12/13/18 15:00 12/20/18 14:59 12/16/18 09:31 Dextrose (Dextrose 50%) 25 ml Q30M PRN IV Hypoglycemia 12/13/18 07:30 01/12/19 07:29 Dextrose (Dextrose 50%) 50 ml Q30M PRN IV Hypoglycemia 12/13/18 07:30 01/12/19 07:29 Digoxin (Lanoxin) 0.125 mg DAILY GT 12/14/18 09:00 01/13/19 08:59 12/16/18 09:31 Heparin Sodium (Porcine) (Heparin 5000 units/ml) 5,000 units EVERY 12 HOURS SUBQ 12/13/18 09:00 01/12/19 08:59 12/16/18 09:32 Hydrocortisone (Proctosol-HC Cream) 1 applic Q12HR TOPIC 12/13/18 21:00 01/12/19 20:59 12/16/18 09:32 Lactobacillus Acidophilus (Culturelle) 1 tab EVERY 8 HOURS GT 12/15/18 14:00 01/12/19 17:59 12/16/18 05:42 Metoprolol Tartrate (Lopressor) 25 mg Q12HR GT 12/13/18 21:00 01/12/19 20:59 12/16/18 09:31 Morphine Sulfate (Morphine Sulfate) 2 mg EVERY 4 HOURS PRN IVP Severe Pain (Pain Scale 7-10) 12/13/18 07:30 12/20/18 07:29 12/15/18 01:46 Ondansetron HCl (Zofran) 4 mg Q6H PRN IVP Nausea & Vomiting 12/13/18 07:30 01/12/19 07:29 Pantoprazole (Protonix) 40 mg EVERY 12 HOURS IVP 12/13/18 21:00 01/12/19 20:59 12/16/18 09:30 Polyethylene Glycol (Miralax) 17 gm DAILYPRN PRN ORAL Constipation 12/13/18 07:30 01/12/19 07:29 Potassium Phosphate 30 mm/ Sodium Chloride 560 ml @ 93.3 mls/hr ONCE ONCE IV 12/16/18 12:00 12/16/18 18:00 Sodium Hypochlorite (Dakin's Quarter Strength) 1 applic BEDTIME TOPIC 12/15/18 21:00 01/12/19 20:59 12/15/18 20:53 David Carrasquillo MD Dec 16, 2018 10:20
--- NOTE | 2018-12-16 10:39 | NUR ---
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 98.1 HR 122 RR 14 B/P 124/60 K 3.0 ALK PHOS 753 IS: K-PHOS IV PROTONIX IV CEFEPIME IV STEP DOWN STATUS
--- NOTE | 2018-12-16 10:46 | NUR ---
RD ASSESSMENT & RECOMMENDATIONS SEE CARE ACTIVITY FOR COMPLETE ASSESSMENT DAILY ESTIMATED NEEDS: Needs based on Wounds, Pulmonary, sepsis, 60.5kg 25-35 kcals/kg 6292-0402 total kcals 1.25-2 g protein/kg 76-121 g total protein 25-30 mL/kg 8104-7223 total fluid mLs NUTRITION DIAGNOSIS: 1) Increased kcal and pro needs r/t wound healing as evidenced by non-blanchable erythema at R elbow, full thickness sacral pressure injury, r lateral malleolus maroon with fluctuance as per recent admission WC eval, new eval is pending. 2) Swallowing difficulty R/T dysphagia as evidenced by pt PEG dep. CURRENT TF:Vital 1.2 @30 ENTERAL NUTRITION RECOMMENDATIONS: Vital AF 1.2 @ 60ml/hr x24 hrs to provide 1440ml, 1728 kcal, 108g pro, 1168ml free H2O - Rec Vital AF for GI tolerance: s/p recent ex lap, duodenotomy - As medically appropriate, initiate Vital AF 1.2 @ 20ml/hr x 6 hrs - Increase TF SLOWLY by 5ml q 4-6 hrs to goal rate - Flush per MD/ HOB over 30 degrees ADDITIONAL RECOMMENDATIONS: 1) Per SNF record in October 2018: 5'6" ht, 133 lbs wt -> pt currently edematous + on P200 mattress 2) Wound care: Add YOLI BID via GT + VIT C 250mg BID 3) Monitor BGs, consider hypoglycemics prn/ niss 4) Monitor lytes, replete as needed 5) Monitor TF tolerance closely, consider prokinetics w/ residuals (Reglan was added on 12/12 prior to DC)
--- NOTE | 2018-12-16 11:26 | NUR ---
NURSE NOTES: Received call from Emilia from microbiology, patient positive for G+ cocci in clusters [address] Yee's office contacted. Awaiting call back.
--- NOTE | 2018-12-16 11:35 | Nephrology Progress Note ---
Assessment/Plan Problem List: (1) Electrolyte abnormality (2) SOB (shortness of breath) (3) Anemia Assessment UTI (urinary tract infection) Anemia, chronic disease Alzheimer's dementia Parkinson disease h/o C. difficile colitis Perforated duodenal ulcer Laparatomy Op 12/02/18) other: Pneumonia UTI, h/o bacteremia sacral decub dementia HTN Sz disorder Parkinsons severe Anemia Plan Plan transfuse Trial Albumin for low bp as needed midodrine PRN K and Mag and Phos supplement as needed Transfuse as needed roberto carlos keith RN Subjective ROS Limited/Unobtainable: Yes Constitutional: Reports: malaise, weakness Objective Objective Last 24 Hour Vital Signs Date Time Temp Pulse Resp B/P (MAP) Pulse Ox O2 Delivery O2 Flow Rate FiO2 12/16/18 09:31 103 135/71 12/16/18 09:31 103 12/16/18 08:00 4.0 30 12/16/18 08:00 98.1 103 22 135/71 (92) 100 12/16/18 07:57 153 12/16/18 05:29 95 20 99 12/16/18 05:05 83 19 100 Full Face 40 12/16/18 04:00 Venturi Mask 8.0 12/16/18 04:00 99.0 122 14 124/60 (81) 100 12/16/18 04:00 8.0 12/16/18 03:29 101 12/16/18 01:10 105 22 99 Full Face 40 12/16/18 00:00 Venturi Mask 8.0 12/16/18 00:00 98.8 99 16 148/66 (93) 100 12/15/18 23:35 100 12/15/18 23:10 98 16 100 Full Face 40 12/15/18 23:10 100 Venturi Mask 4.0 30 12/15/18 20:53 105 124/92 12/15/18 20:00 Venturi Mask 8.0 12/15/18 20:00 98.7 88 24 151/83 (105) 100 12/15/18 20:00 8.0 12/15/18 19:58 108 12/15/18 17:05 98.2 106 21 118/64 (82) 99 12/15/18 16:50 98.1 108 21 127/89 (102) 99 12/15/18 16:00 98.1 117 22 122/81 (95) 99 12/15/18 16:00 Venturi Mask 8.0 12/15/18 16:00 8.0 12/15/18 15:45 106 12/15/18 12:00 Venturi Mask 8.0 12/15/18 12:00 8.0 12/15/18 12:00 97.5 93 22 117/73 (88) 98 12/15/18 11:44 101 Intake and Output 12/15/18 12/16/18 19:00 07:00 Intake Total 817.5 ml 470 ml Output Total 1000 ml 700 ml Balance -182.5 ml -230 ml IV Total 357.5 ml 110 ml Tube Feeding 360 ml 360 ml Other 100 ml Output Urine Total 1000 ml 600 ml Drainage Total 100 ml # Bowel Movements 2 1 Laboratory Tests 12/16/18 04:30: White Blood Count 8.3, Red Blood Count 2.81L, Hemoglobin 8.7L, Hematocrit 26.9L , Mean Corpuscular Volume 96, Mean Corpuscular Hemoglobin 30.9, Mean Corpuscular Hemoglobin Concent 32.3, Red Cell Distribution Width 16.0H, Platelet Count 290, Mean Platelet Volume 6.3L, Neutrophils (%) (Auto) 78.1H, Lymphocytes (%) (Auto) 12.2L, Monocytes (%) (Auto) 7.6, Eosinophils (%) (Auto) 1.6, Basophils (%) (Auto) 0.6, Sodium Level 139, Potassium Level 3.0L, Chloride Level 108H, Carbon Dioxide Level 26, Anion Gap 5, Blood Urea Nitrogen 7, Creatinine 0.4L, Estimat Glomerular Filtration Rate , Glucose Level 122H, Uric Acid 3.2, Calcium Level 7.6L, Phosphorus Level 2.2L, Magnesium Level 2.0, Total Bilirubin 1.6H, Direct Bilirubin 1.0H, Aspartate Amino Transf (AST/SGOT) 44H, Alanine Aminotransferase (ALT/SGPT) 15, Alkaline Phosphatase 753H, Total Protein 4.3L, Albumin 1.3L, Globulin 3.0, Albumin/Globulin Ratio 0.4L Height (Feet): 5 Height (Inches): 5.00 Weight (Pounds): 180 Kendall Trinidad MD Dec 16, 2018 11:35
--- NOTE | 2018-12-16 11:40 | Infectious Diseases Prog Note ---
Assessment/Plan Assessment/Plan Acute respiratory failure, recurrent 12/13 , on bipap- r/o recurent pNA -CXR: Pulmonary edema versus infiltrates. Study is currently limited as obtained. Suspect a left pleural effusion -sp cx: Citrobacter diversus (R ancef, Ceftazidime, Ceftriaxone, Gentamycin, Bactrim), diptheroids, Citrobacter #2 (R Ancef, Gentamycin, Bactrim) Afebrile Leukocytosis; recurrent- resolved -u/a no pyuria, nit +, leuk +1; ucx 10-20k Pseudomonas fluorecens- R cipro/ Levo; I Genta (colonzier) -Bcx NTD Gram positiev bacteremia- real vs contaminant -12/13 Bcx 1/ GPC clusters VDRF, s/p extubation 12/08 Recet GIB- 2ry to actively bleeding Duodenal ulcer -12/02 SP exploratory laparotomy. Anterior duodenotomy for control of large posterior duodenal ulcer hemorrhage. closure of duodenotomy. pyloric exclusion with gastrojejunostomy abdominal washout. abdominal drain placement -12/02 SP EGD Recent Shock likely hemorrhagic and septic component -12/04 CXR: Suggestion of a slightly worsening vascular congestion -12/03 u/a neg, ucx Neg Bcx Neg -12/02 CXR: Slightly increased bilateral infiltrates Diarrhea CDiff +, sp rx GI bleed 11/29 Colonscopy : Diverticulosis Recent Sepsis -11/30 CT abd/p: Nonspecific trace free intraperitoneal fluid. No acute abdominal or pelvic process otherwise. Fairly extensive bilateral basilar pulmonary parenchymal consolidation and atelectasis. Bilateral small pleural effusions. Colonic diverticulosis. No evidence of diverticulitis. Gastrostomy. Nonobstructive 3 mm left intrarenal calyceal calculus. Prostatomegaly. Edema of the bilateral left greater than right subcutaneous fat. Fairly extensive chronic appearing bilateral hip degenerative changes, with bilateral joint effusions versus chronic synovial proliferation. Inferior vena cava filter -11/28 BCx Neg u/a no pyuria ucx Neg Pneumonia -12/07 CXR: Patchy airspace disease noted in the perihilar basilar regions. There may be a small left pleural effusion now present -12/03 Sp cx Citrobacter diversus (R Genta,Ancef, Bactrim); MDR P. stuarti ( S Amikacin) -CXR: Patchy bilateral infiltrates versus mixed interstitial alveolar edema noted. -sp cx MRSA, MDR P. stuarti (S Amikacin, Zosyn ; I cefepime; S ertapenem) MRSA bacteremia- suspect 2ry to PNA- ,sp Rx -11/18 Bcx 2/4 MRSA , 1/ S. capitis, Diptheroids (these 2 are contaminants); BCx Neg -2d Echo:limited study (no vegetations) Probable UTI, sp Rx -u/a wbc 10-15, nit neg, leuk +2; ucx MDR ABC (S bactrim, gentamicin) Sacral decubitus ulcer, necrotic, surrounding cellulitis -12/13 wound cx: Citrobacter diversus (R Ancef, Gentamycin, Bactrim), dementia HTN CKD COPD dysphagia s/p Gtube feeding Parkinson disease seizure disorder multiple decubiti wounds halfway resident Plan: -Continue Cefepime #/-10 for Citrobacter PNA -Resume IV Vancomycin #5 for gram positive bacteremia -12/15 SP empiric IV Vancomycin #4, IV Flagyl #12 and IV Amikacin #8 -12/09 SP IV Vancomycin #22 -12/03 SP PO Vancomycin #5 (held as pt now is NPO) -12/02 SP Flagyl #4 -11/29 SP Zosyn #8 -11/27 SP Bactrim #7 -11/23 SP Cefepime #6 -11/18 SP Levaquin x1 -f/u cx -Monitor CBC/CMP, temperatures -GT care -aspiration precautions -wound care per surgical team -Bx x2 Subjective Allergies: Coded Allergies: No Known Allergies (Unverified , 11/18/18) Subjective afebrile no leukocytosis on VM Bcx NTD Objective Vital Signs Last 24 Hour Vital Signs Date Time Temp Pulse Resp B/P (MAP) Pulse Ox O2 Delivery O2 Flow Rate FiO2 12/16/18 09:31 103 135/71 12/16/18 09:31 103 12/16/18 08:00 4.0 30 12/16/18 08:00 98.1 103 22 135/71 (92) 100 12/16/18 07:57 153 12/16/18 05:29 95 20 99 12/16/18 05:05 83 19 100 Full Face 40 12/16/18 04:00 Venturi Mask 8.0 12/16/18 04:00 99.0 122 14 124/60 (81) 100 12/16/18 04:00 8.0 12/16/18 03:29 101 12/16/18 01:10 105 22 99 Full Face 40 12/16/18 00:00 Venturi Mask 8.0 12/16/18 00:00 98.8 99 16 148/66 (93) 100 12/15/18 23:35 100 12/15/18 23:10 98 16 100 Full Face 40 12/15/18 23:10 100 Venturi Mask 4.0 30 12/15/18 20:53 105 124/92 12/15/18 20:00 Venturi Mask 8.0 12/15/18 20:00 98.7 88 24 151/83 (105) 100 12/15/18 20:00 8.0 12/15/18 19:58 108 12/15/18 17:05 98.2 106 21 118/64 (82) 99 12/15/18 16:50 98.1 108 21 127/89 (102) 99 12/15/18 16:00 98.1 117 22 122/81 (95) 99 12/15/18 16:00 Venturi Mask 8.0 12/15/18 16:00 8.0 12/15/18 15:45 106 12/15/18 12:00 Venturi Mask 8.0 12/15/18 12:00 8.0 12/15/18 12:00 97.5 93 22 117/73 (88) 98 12/15/18 11:44 101 Height (Feet): 5 Height (Inches): 5.00 Weight (Pounds): 180 Objective GENERAL: O2 mask in place, sleeping in bed, nonverbal. CARDIOVASCULAR: No murmur. LUNGS: Poor air exchange. ABDOMEN: Bowel sounds distant. EXTREMITIES: No cyanosis, clubbing, or edema. NEUROLOGIC: The patient is flaccid in bed, not following directions. Laboratory Tests Test 12/16/18 04:30 White Blood Count 8.3 K/UL (4.8-10.8) Red Blood Count 2.81 M/UL (4.70-6.10) L Hemoglobin 8.7 G/DL (14.2-18.0) L Hematocrit 26.9 % (42.0-52.0) L Mean Corpuscular Volume 96 FL (80-99) Mean Corpuscular Hemoglobin 30.9 PG (27.0-31.0) Mean Corpuscular Hemoglobin Concent 32.3 G/DL (32.0-36.0) Red Cell Distribution Width 16.0 % (11.6-14.8) H Platelet Count 290 K/UL (150-450) Mean Platelet Volume 6.3 FL (6.5-10.1) L Neutrophils (%) (Auto) 78.1 % (45.0-75.0) H Lymphocytes (%) (Auto) 12.2 % (20.0-45.0) L Monocytes (%) (Auto) 7.6 % (1.0-10.0) Eosinophils (%) (Auto) 1.6 % (0.0-3.0) Basophils (%) (Auto) 0.6 % (0.0-2.0) Sodium Level 139 MMOL/L (136-145) Potassium Level 3.0 MMOL/L (3.5-5.1) L Chloride Level 108 MMOL/L (98-107) H Carbon Dioxide Level 26 MMOL/L (21-32) Anion Gap 5 mmol/L (5-15) Blood Urea Nitrogen 7 mg/dL (7-18) Creatinine 0.4 MG/DL (0.55-1.30) L Estimat Glomerular Filtration Rate mL/min (>60) Glucose Level 122 MG/DL (74-106) H Uric Acid 3.2 MG/DL (2.6-7.2) Calcium Level 7.6 MG/DL (8.5-10.1) L Phosphorus Level 2.2 MG/DL (2.5-4.9) L Magnesium Level 2.0 MG/DL (1.8-2.4) Total Bilirubin 1.6 MG/DL (0.2-1.0) H Direct Bilirubin 1.0 MG/DL (0.0-0.3) H Aspartate Amino Transf (AST/SGOT) 44 U/L (15-37) H Alanine Aminotransferase (ALT/SGPT) 15 U/L (12-78) Alkaline Phosphatase 753 U/L (46-116) H Total Protein 4.3 G/DL (6.4-8.2) L Albumin 1.3 G/DL (3.4-5.0) L Globulin 3.0 g/dL Albumin/Globulin Ratio 0.4 (1.0-2.7) L Current Medications Medications (Trade) Dose Ordered Sig/Pauline Route PRN Reason Start Time Stop Time Status Last Admin Dose Admin Acetaminophen (Tylenol) 650 mg Q4H PRN ORAL T>100.5 12/13/18 07:30 01/12/19 07:29 Albuterol/ Ipratropium (Albuterol/ Ipratropium) 3 ml Q4H PRN HHN Shortness of Breath 12/13/18 07:30 12/18/18 07:29 Cefepime HCl 2 gm/ Dextrose 110 ml @ 220 mls/hr EVERY 12 HOURS IV 12/13/18 15:00 12/20/18 14:59 12/16/18 09:31 Dextrose (Dextrose 50%) 25 ml Q30M PRN IV Hypoglycemia 12/13/18 07:30 01/12/19 07:29 Dextrose (Dextrose 50%) 50 ml Q30M PRN IV Hypoglycemia 12/13/18 07:30 01/12/19 07:29 Digoxin (Lanoxin) 0.125 mg DAILY GT 12/14/18 09:00 01/13/19 08:59 12/16/18 09:31 Heparin Sodium (Porcine) (Heparin 5000 units/ml) 5,000 units EVERY 12 HOURS SUBQ 12/13/18 09:00 01/12/19 08:59 12/16/18 09:32 Hydrocortisone (Proctosol-HC Cream) 1 applic Q12HR TOPIC 12/13/18 21:00 01/12/19 20:59 12/16/18 09:32 Lactobacillus Acidophilus (Culturelle) 1 tab EVERY 8 HOURS GT 12/15/18 14:00 01/12/19 17:59 12/16/18 05:42 Metoprolol Tartrate (Lopressor) 50 mg Q12HR GT 12/16/18 21:00 01/15/19 20:59 Morphine Sulfate (Morphine Sulfate) 2 mg EVERY 4 HOURS PRN IVP Severe Pain (Pain Scale 7-10) 12/13/18 07:30 12/20/18 07:29 12/15/18 01:46 Ondansetron HCl (Zofran) 4 mg Q6H PRN IVP Nausea & Vomiting 12/13/18 07:30 01/12/19 07:29 Pantoprazole (Protonix) 40 mg EVERY 12 HOURS IVP 12/13/18 21:00 01/12/19 20:59 12/16/18 09:30 Polyethylene Glycol (Miralax) 17 gm DAILYPRN PRN ORAL Constipation 12/13/18 07:30 01/12/19 07:29 Potassium Phosphate 30 mm/ Sodium Chloride 560 ml @ 93.3 mls/hr ONCE ONCE IV 12/16/18 12:00 12/16/18 18:00 Sodium Hypochlorite (Dakin's Quarter Strength) 1 applic BEDTIME TOPIC 12/15/18 21:00 01/12/19 20:59 12/15/18 20:53 Neva Yee M.D. Dec 16, 2018 11:40
--- NOTE | 2018-12-16 11:58 | Cardiac Electrophysiology PN ---
Assessment/Plan Assessment/Plan 1. Post op atrial fib with RVR 170s. On Dig 0.125 PEG daily and Lopressor increase to 50 GT bid 2. S/P Septic and hemorrhagic shock . Echo EF 55% 3. Acute right leg DVT and Bilateral UE DVT. S/P IVC filter . Off Eliquis for severe anemia and GI bleed 4. Staph aureous bacteremia. On Abx per Dr Yee 5. Parkinsonism. 6. COPD. 7. UTI. 8. Severe anemia and rectal bleed. S/P Colonoscopy on 11/20/18 and 11/29/18 and transfusion No obvious source. S/P EGD by Dr Dallas and Anterior duodenostomy for control of large posterior duodenal ulcer hemorrhage by Dr Eugene on 12/02/18 S/P transfusion again 12/15/18 9. Seizure disorder. 10. S/P PEG 11. Respiratory failure, extubated 12/08/18. EHSAN RN Subjective Subjective Had blood transfusion. On Face Mask. More alert off restraints. Had Atrial fib with RVR up to 160s again. Objective Last 24 Hour Vital Signs Date Time Temp Pulse Resp B/P (MAP) Pulse Ox O2 Delivery O2 Flow Rate FiO2 12/16/18 09:31 103 135/71 12/16/18 09:31 103 12/16/18 08:00 4.0 30 12/16/18 08:00 98.1 103 22 135/71 (92) 100 12/16/18 07:57 153 12/16/18 05:29 95 20 99 12/16/18 05:05 83 19 100 Full Face 40 12/16/18 04:00 Venturi Mask 8.0 12/16/18 04:00 99.0 122 14 124/60 (81) 100 12/16/18 04:00 8.0 12/16/18 03:29 101 12/16/18 01:10 105 22 99 Full Face 40 12/16/18 00:00 Venturi Mask 8.0 12/16/18 00:00 98.8 99 16 148/66 (93) 100 12/15/18 23:35 100 12/15/18 23:10 98 16 100 Full Face 40 12/15/18 23:10 100 Venturi Mask 4.0 30 12/15/18 20:53 105 124/92 12/15/18 20:00 Venturi Mask 8.0 12/15/18 20:00 98.7 88 24 151/83 (105) 100 12/15/18 20:00 8.0 12/15/18 19:58 108 12/15/18 17:05 98.2 106 21 118/64 (82) 99 12/15/18 16:50 98.1 108 21 127/89 (102) 99 12/15/18 16:00 98.1 117 22 122/81 (95) 99 12/15/18 16:00 Venturi Mask 8.0 12/15/18 16:00 8.0 12/15/18 15:45 106 12/15/18 12:00 Venturi Mask 8.0 12/15/18 12:00 8.0 12/15/18 12:00 97.5 93 22 117/73 (88) 98 Intake and Output 12/15/18 12/16/18 19:00 07:00 Intake Total 817.5 ml 470 ml Output Total 1000 ml 700 ml Balance -182.5 ml -230 ml IV Total 357.5 ml 110 ml Tube Feeding 360 ml 360 ml Other 100 ml Output Urine Total 1000 ml 600 ml Drainage Total 100 ml # Bowel Movements 2 1 Laboratory Tests Test 12/16/18 04:30 White Blood Count 8.3 K/UL (4.8-10.8) Red Blood Count 2.81 M/UL (4.70-6.10) L Hemoglobin 8.7 G/DL (14.2-18.0) L Hematocrit 26.9 % (42.0-52.0) L Mean Corpuscular Volume 96 FL (80-99) Mean Corpuscular Hemoglobin 30.9 PG (27.0-31.0) Mean Corpuscular Hemoglobin Concent 32.3 G/DL (32.0-36.0) Red Cell Distribution Width 16.0 % (11.6-14.8) H Platelet Count 290 K/UL (150-450) Mean Platelet Volume 6.3 FL (6.5-10.1) L Neutrophils (%) (Auto) 78.1 % (45.0-75.0) H Lymphocytes (%) (Auto) 12.2 % (20.0-45.0) L Monocytes (%) (Auto) 7.6 % (1.0-10.0) Eosinophils (%) (Auto) 1.6 % (0.0-3.0) Basophils (%) (Auto) 0.6 % (0.0-2.0) Sodium Level 139 MMOL/L (136-145) Potassium Level 3.0 MMOL/L (3.5-5.1) L Chloride Level 108 MMOL/L (98-107) H Carbon Dioxide Level 26 MMOL/L (21-32) Anion Gap 5 mmol/L (5-15) Blood Urea Nitrogen 7 mg/dL (7-18) Creatinine 0.4 MG/DL (0.55-1.30) L Estimat Glomerular Filtration Rate mL/min (>60) Glucose Level 122 MG/DL (74-106) H Uric Acid 3.2 MG/DL (2.6-7.2) Calcium Level 7.6 MG/DL (8.5-10.1) L Phosphorus Level 2.2 MG/DL (2.5-4.9) L Magnesium Level 2.0 MG/DL (1.8-2.4) Total Bilirubin 1.6 MG/DL (0.2-1.0) H Direct Bilirubin 1.0 MG/DL (0.0-0.3) H Aspartate Amino Transf (AST/SGOT) 44 U/L (15-37) H Alanine Aminotransferase (ALT/SGPT) 15 U/L (12-78) Alkaline Phosphatase 753 U/L (46-116) H Total Protein 4.3 G/DL (6.4-8.2) L Albumin 1.3 G/DL (3.4-5.0) L Globulin 3.0 g/dL Albumin/Globulin Ratio 0.4 (1.0-2.7) L Objective HEAD AND NECK: No JVD LUNGS: Decreased breath sounds. CARDIOVASCULAR: Regular S1 and S2 with no gallop . ABDOMEN: Soft. G-tube intact. S/P Laparatomy with ANGIE drain EXTREMITIES: Upper extremity and LE edema. Earl Washington MD Dec 16, 2018 11:58
[2018-12-16 12:00] VITALS: BP 115/63
[2018-12-16] MEDS ORDERED: Potassium Phosphate 30 MM in Sodium Chloride 550 ML IV ONE (12:00)
--- NOTE | 2018-12-16 12:16 | NUR ---
HAND-OFF: Report given to Trinh Mendosa RN.
--- NOTE | 2018-12-16 12:17 | NUR ---
NURSE NOTES: Received patient in bed. Awake, non verbal. On continuous GTF. Bradley cath inplace. Right subclavian central line inplace. Will continue plan of care. Contact isolation observed.
[2018-12-16] MEDS ORDERED: Vancomycin 1gm/D5W 275ml IVPB SCH ×2 (13:00)
--- NOTE | 2018-12-16 13:38 | Surgery Progress Note ---
Surgery Progress Note Subjective Additional Comments labs okay exam stable drain with bilious output Objective Last 24 Hour Vital Signs Date Time Temp Pulse Resp B/P (MAP) Pulse Ox O2 Delivery O2 Flow Rate FiO2 12/16/18 12:00 97.7 95 24 115/63 (80) 99 12/16/18 12:00 4.0 30 12/16/18 09:31 103 135/71 12/16/18 09:31 103 12/16/18 08:00 4.0 30 12/16/18 08:00 98.1 103 22 135/71 (92) 100 12/16/18 07:57 153 12/16/18 05:29 95 20 99 12/16/18 05:05 83 19 100 Full Face 40 12/16/18 04:00 Venturi Mask 8.0 12/16/18 04:00 99.0 122 14 124/60 (81) 100 12/16/18 04:00 8.0 12/16/18 03:29 101 12/16/18 01:10 105 22 99 Full Face 40 12/16/18 00:00 Venturi Mask 8.0 12/16/18 00:00 98.8 99 16 148/66 (93) 100 12/15/18 23:35 100 12/15/18 23:10 98 16 100 Full Face 40 12/15/18 23:10 100 Venturi Mask 4.0 30 12/15/18 20:53 105 124/92 12/15/18 20:00 Venturi Mask 8.0 12/15/18 20:00 98.7 88 24 151/83 (105) 100 12/15/18 20:00 8.0 12/15/18 19:58 108 12/15/18 17:05 98.2 106 21 118/64 (82) 99 12/15/18 16:50 98.1 108 21 127/89 (102) 99 12/15/18 16:00 98.1 117 22 122/81 (95) 99 12/15/18 16:00 Venturi Mask 8.0 12/15/18 16:00 8.0 12/15/18 15:45 106 I&O Intake and Output 12/15/18 12/16/18 19:00 07:00 Intake Total 817.5 ml 470 ml Output Total 1000 ml 700 ml Balance -182.5 ml -230 ml IV Total 357.5 ml 110 ml Tube Feeding 360 ml 360 ml Other 100 ml Output Urine Total 1000 ml 600 ml Drainage Total 100 ml # Bowel Movements 2 1 Dressing: dry Wound: clean Drains: tawanda Cardiovascular: RSR Respiratory: clear Abdomen: soft, present bowel sounds Extremities: no cyanosis Laboratory Tests Test 12/16/18 04:30 White Blood Count 8.3 K/UL (4.8-10.8) Red Blood Count 2.81 M/UL (4.70-6.10) L Hemoglobin 8.7 G/DL (14.2-18.0) L Hematocrit 26.9 % (42.0-52.0) L Mean Corpuscular Volume 96 FL (80-99) Mean Corpuscular Hemoglobin 30.9 PG (27.0-31.0) Mean Corpuscular Hemoglobin Concent 32.3 G/DL (32.0-36.0) Red Cell Distribution Width 16.0 % (11.6-14.8) H Platelet Count 290 K/UL (150-450) Mean Platelet Volume 6.3 FL (6.5-10.1) L Neutrophils (%) (Auto) 78.1 % (45.0-75.0) H Lymphocytes (%) (Auto) 12.2 % (20.0-45.0) L Monocytes (%) (Auto) 7.6 % (1.0-10.0) Eosinophils (%) (Auto) 1.6 % (0.0-3.0) Basophils (%) (Auto) 0.6 % (0.0-2.0) Sodium Level 139 MMOL/L (136-145) Potassium Level 3.0 MMOL/L (3.5-5.1) L Chloride Level 108 MMOL/L (98-107) H Carbon Dioxide Level 26 MMOL/L (21-32) Anion Gap 5 mmol/L (5-15) Blood Urea Nitrogen 7 mg/dL (7-18) Creatinine 0.4 MG/DL (0.55-1.30) L Estimat Glomerular Filtration Rate mL/min (>60) Glucose Level 122 MG/DL (74-106) H Uric Acid 3.2 MG/DL (2.6-7.2) Calcium Level 7.6 MG/DL (8.5-10.1) L Phosphorus Level 2.2 MG/DL (2.5-4.9) L Magnesium Level 2.0 MG/DL (1.8-2.4) Total Bilirubin 1.6 MG/DL (0.2-1.0) H Direct Bilirubin 1.0 MG/DL (0.0-0.3) H Aspartate Amino Transf (AST/SGOT) 44 U/L (15-37) H Alanine Aminotransferase (ALT/SGPT) 15 U/L (12-78) Alkaline Phosphatase 753 U/L (46-116) H Total Protein 4.3 G/DL (6.4-8.2) L Albumin 1.3 G/DL (3.4-5.0) L Globulin 3.0 g/dL Albumin/Globulin Ratio 0.4 (1.0-2.7) L Plan Problems: (1) Duodenal ulcer hemorrhage Assessment & Plan: 73-year-old male well-known to me from recent surgery. Patient was admitted prior with GI bleed identified to have a actively bleeding duodenal ulcer status post expiratory laparotomy. Please refer to prior operative note for details. Patient was recently discharged to alf for the continued care but returned with altered status and a respiratory distress. Patient readmitted and placed on BiPAP. Since her respiratory distress has improved and is now on facemask. On admission patient with leukocytosis 16,000 which is resolved now. Electrolyte abnormal. Surgery called for continued postoperative care while inpatient. -elizabeth drain care / management will need to leave drain in for some time now as patient likely developed duodenal leak that is contained -abd exam stable labs improved cont with abx as per ID will follow with Andrew Dwyer Dec 16, 2018 13:38
--- NOTE | 2018-12-16 14:00 | NUR ---
NURSE NOTES: Blood culture specimens obtained and sent to lab.
--- NOTE | 2018-12-16 15:55 | NUR ---
NURSE NOTES:WOUND CARE NOTES:Pt presented with full thickness sacral pressure injury with undermining. Base of wound 90% viable with loose non-viable tissue easily removed with cleansing. Bone exposure at base of wound. No odor noted. (L)9.7cm x (W)7 cm x (D)1.3cm ,undermining clockwise 12-12 by 2.7cm @3o'clock.Edges detached with darker skin tone without erythema.Darker skin tone without erythema or induration periwound. Non-blanching erythema noted to R trochanter (L)4.5cm x (W)2.5cm. DTPI noted to L heel. L heel maroon with fluctuance. DTPI noted to R heel. Base of heel maroon with fluctuance. Tx.Plan: Cleanse Sacral wound with Dakin's 0.125% padma. loosely packed with Dakin's moist Kerlix gauze. Apply Moisture Barrier Paste periwound. Cover with Optifoam drsg Daily and PRN. Apply Cavilon to R trochanter . Cover with Optifoam drsg. Change every 7 days and prn. Apply Cavilon Skin Barrier to both heels. Cover each heel with Optifoam drsg. Change every 7 days and prn. APM/FERNANDEZ mattress. Reposition at least every 2hours or as tolerated. Off-load heels with pillow.
[2018-12-16 16:00] VITALS: BP 155/77
--- NOTE | 2018-12-16 16:21 | General Progress Note ---
Assessment/Plan Problem List: (1) Seizures ICD Codes: R56.9 - Unspecified convulsions SNOMED: 37120162 (2) Parkinson disease ICD Codes: G20 - Parkinson's disease SNOMED: 20893856 (3) Alzheimer's dementia ICD Codes: G30.9 - Alzheimer's disease, unspecified; F02.80 - Dementia in other diseases classified elsewhere without behavioral disturbance SNOMED: 87637481 (4) COPD (chronic obstructive pulmonary disease) ICD Codes: J44.9 - Chronic obstructive pulmonary disease, unspecified SNOMED: 78424703 (5) Acute DVT (deep venous thrombosis) ICD Codes: I82.409 - Acute embolism and thrombosis of unspecified deep veins of unspecified lower extremity SNOMED: 276638938861628 (6) SOB (shortness of breath) ICD Codes: R06.02 - Shortness of breath SNOMED: 082789891 Status: stable, progressing Assessment/Plan: o2 pulm tx abx cbc bmp am promise ltach eval Subjective Constitutional: Reports: weakness Allergies: Coded Allergies: No Known Allergies (Unverified , 11/18/18) All Systems: reviewed and negative except above Subjective o2 nc calm Objective Last 24 Hour Vital Signs Date Time Temp Pulse Resp B/P (MAP) Pulse Ox O2 Delivery O2 Flow Rate FiO2 12/16/18 12:00 97.7 95 24 115/63 (80) 99 12/16/18 12:00 Venturi Mask 4.0 12/16/18 12:00 4.0 30 12/16/18 11:43 104 12/16/18 09:31 103 135/71 12/16/18 09:31 103 12/16/18 08:00 Venturi Mask 4.0 12/16/18 08:00 4.0 30 12/16/18 08:00 98.1 103 22 135/71 (92) 100 12/16/18 07:57 153 12/16/18 05:29 95 20 99 12/16/18 05:05 83 19 100 Full Face 40 12/16/18 04:00 Venturi Mask 8.0 12/16/18 04:00 99.0 122 14 124/60 (81) 100 12/16/18 04:00 8.0 12/16/18 03:29 101 12/16/18 01:10 105 22 99 Full Face 40 12/16/18 00:00 Venturi Mask 8.0 12/16/18 00:00 98.8 99 16 148/66 (93) 100 12/15/18 23:35 100 12/15/18 23:10 98 16 100 Full Face 40 12/15/18 23:10 100 Venturi Mask 4.0 30 12/15/18 20:53 105 124/92 12/15/18 20:00 Venturi Mask 8.0 12/15/18 20:00 98.7 88 24 151/83 (105) 100 12/15/18 20:00 8.0 12/15/18 19:58 108 12/15/18 17:05 98.2 106 21 118/64 (82) 99 12/15/18 16:50 98.1 108 21 127/89 (102) 99 Intake and Output 12/15/18 12/16/18 19:00 07:00 Intake Total 817.5 ml 470 ml Output Total 1000 ml 700 ml Balance -182.5 ml -230 ml IV Total 357.5 ml 110 ml Tube Feeding 360 ml 360 ml Other 100 ml Output Urine Total 1000 ml 600 ml Drainage Total 100 ml # Bowel Movements 2 1 Laboratory Tests 12/16/18 04:30: White Blood Count 8.3, Red Blood Count 2.81L, Hemoglobin 8.7L, Hematocrit 26.9L , Mean Corpuscular Volume 96, Mean Corpuscular Hemoglobin 30.9, Mean Corpuscular Hemoglobin Concent 32.3, Red Cell Distribution Width 16.0H, Platelet Count 290, Mean Platelet Volume 6.3L, Neutrophils (%) (Auto) 78.1H, Lymphocytes (%) (Auto) 12.2L, Monocytes (%) (Auto) 7.6, Eosinophils (%) (Auto) 1.6, Basophils (%) (Auto) 0.6, Sodium Level 139, Potassium Level 3.0L, Chloride Level 108H, Carbon Dioxide Level 26, Anion Gap 5, Blood Urea Nitrogen 7, Creatinine 0.4L, Estimat Glomerular Filtration Rate , Glucose Level 122H, Uric Acid 3.2, Calcium Level 7.6L, Phosphorus Level 2.2L, Magnesium Level 2.0, Total Bilirubin 1.6H, Direct Bilirubin 1.0H, Aspartate Amino Transf (AST/SGOT) 44H, Alanine Aminotransferase (ALT/SGPT) 15, Alkaline Phosphatase 753H, Total Protein 4.3L, Albumin 1.3L, Globulin 3.0, Albumin/Globulin Ratio 0.4L Height (Feet): 5 Height (Inches): 5.00 Weight (Pounds): 180 General Appearance: lethargic EENT: normal ENT inspection Neck: normal alignment Cardiovascular: normal peripheral pulses, normal rate, regular rhythm Respiratory/Chest: chest wall non-tender, lungs clear, normal breath sounds Abdomen: normal bowel sounds, non tender, soft Extremities: normal inspection Edema: 1+ Arm (L), 1+ Arm (R), 1+ Leg (L), 1+ Leg (R), 1+ Pedal (L), 1+ Pedal ( R), 1+ Generalized Edema: trace edema Neurologic: motor weakness Skin: normal pigmentation, warm/dry Abdullahi Gonzalez DO Dec 16, 2018 16:21
--- NOTE | 2018-12-16 16:51 | NUR ---
HAND-OFF: Report given to MONA Jorge.
--- NOTE | 2018-12-16 16:52 | NUR ---
NURSE NOTES: Received report from Trinh Mendosa RN. Patient awake, tracks with eyes but unable to follow commands, nonverbal, unable to make needs known. Receiving O2 via nasal cannula @ 5 L/min, saturating at 100%. GT feeding of Vital AF 1.2 running @ 40 cc/hr, no residuals noted. Bradley catheter patent and draining well. ANGIE drain noted on LLQ with negative pressure. Right subclavian TLC infusing KPhos 30mm @ 93.3 cc/hr, asymptomatic. Bed locked in lowest position with side rails up x 3. All needs attended to. Call light within reach. Will continue to monitor.
--- NOTE | 2018-12-16 19:16 | NUR ---
HAND-OFF: Report given to Adilene Zhu RN.
--- NOTE | 2018-12-16 19:20 | NUR ---
NURSE NOTES: Report received from MONA Jorge. Observed pt lying in the bed, awake, but non-verbal. ST noted on quality assurance monitor body, HR 120s noted. NC 5 L with no signs of SOB. GT site intact and running Vital AF 1.2 at 40cc/hr. ANGIE drain noted on RLQ, with greenish output. Central line R subclavian TLC, intact, dressing date 12/12 noted. Bed in the lowest position. Side rails up x3 and padded. Will continue to monitor.
[2018-12-16 20:00] VITALS: BP 140/80
[2018-12-16] MEDS: Metoprolol Tartrate 50mg tab GT SCH (20:27)
[2018-12-16] MEDS: Dakin's 0.125% Soln (Quarter Strength) 16oz TOPIC SCH (20:28)
[2018-12-16] MEDS: Morphine Sulfate 2mg/ml Inj(IV/IM USE ONLY) IVP PRN (21:19)
--- NOTE | 2018-12-16 23:58 | NUR ---
NURSE NOTES: Observed pt lying in the bed. ST with HR of 105 noted on library monitor. On Bipap 02/28, 40%. Reposition done with pillow support. Oral care done. ANGIE bag emptied and noted green discharge. Gt intact and no residual noted, dressing changed. Will continue to monitor.
[2018-12-17] VITALS: BP 120/71
[2018-12-17 04:00] VITALS: BP 126/60
[2018-12-17 04:12] LABS: BASOPHILS % (AUTO) 0.4 % (0.0-2.0); EOSINOPHILS % (AUTO) 1.2 % (0.0-3.0); HEMATOCRIT 25.9 % (42.0-52.0); HEMOGLOBIN 8.3 G/DL (14.2-18.0); LYMPHOCYTES % (AUTO) 8.4 % (20.0-45.0); MEAN CORPUSCULAR VOLUME 96 FL (80-99); MONOCYTES % (AUTO) 7.3 % (1.0-10.0); NEUTROPHILS % (AUTO) 82.7 % (45.0-75.0); PLATELET COUNT 311 K/UL (150-450); RED BLOOD COUNT 2.71 M/UL (4.70-6.10); WHITE BLOOD COUNT 10.4 K/UL (4.8-10.8)
[2018-12-17 04:34] LABS: PHOSPHORUS 2.6 MG/DL (2.5-4.9)
[2018-12-17 04:39] LABS: ALANINE AMINOTRANSFERASE 15 U/L (12-78); ALBUMIN 1.2 G/DL (3.4-5.0); ALBUMIN/GLOBULIN RATIO 0.4 (1.0-2.7); ALKALINE PHOSPHATASE 610 U/L (46-116); ANION GAP 6 mmol/L (5-15); ASPARTATE AMINO TRANSFERASE 29 U/L (15-37); BLOOD UREA NITROGEN 6 mg/dL (7-18); CALCIUM 6.7 MG/DL (8.5-10.1); CARBON DIOXIDE 25 MMOL/L (21-32); CHLORIDE 110 MMOL/L (98-107); CREATININE 0.4 MG/DL (0.55-1.30); POTASSIUM 3.1 MMOL/L (3.5-5.1); SODIUM 141 MMOL/L (136-145)
[2018-12-17] MEDS: Lactobacillus-GG tablet GT SCH ×3 (05:41→21:49)
--- NOTE | 2018-12-17 06:19 | NUR ---
NURSE NOTES: Left a message to regarding Mg 1.5 and K 3.1 and awaiting call back.
--- NOTE | 2018-12-17 06:26 | Hematology/Onc Progress Note ---
Assessment/Plan Assessment/Plan # Anemia due to GI Bleed, other causes exist, multifactorial, is s/p lap site, egd done --> Anemia workup has been reviewed, FERRITIN 831 --> No evidence of hemolysis is noted, peripheral smear has been reviewed. --> Hgb goal >7. Transfuse prn. --> Epogen or iron at this time is not particularly indicated --> Medications have been reviewed --> low threshold for gi evaluation in case has occult +--> endoscopy and colo pending --> hgb trend: 7.4-->9.0-->9-->8.6->8.5-->7.5->7.1-->8.3 --> Blood tx: 1 unit 11/19, 11/27, 12/02, 12/15 # Acute right leg DVT and left leg DVT (recanalized). Heparin drip DCed for rectal bleed. s/p IVC FILTER 11/23/18 --> upper arm DVTs noted as well (right and left leg dvt) --> agree with need for this given coagulant contraindication --> appreciate gi and pulm/cc recs --> have discontinued eliquis given acute GI bleed on 11/27/18, ON HOLD --> consider restart eliquis once h/h remains stable # Leukocytosis due to sepsis. --> currently improved --> urine, sputum, sacral, and blood cultures are positive, mrsa positive --> IV abx per id --> trend wbc 11.6--> 16-->8-->9.9-->16-->9.9-->10.4 # Thrombocytopenia likely related to infection --> trend plt 111k-->129k-->148k-->174k-->200k-->252k-->239-->300 --> likely was related to infection --> meds reviewed # Sinus tach due to anemia and sepsis and beta danya withdrawal as was on Metoprolol 12.5 bid at [facility] --> per cards recs # Hypertension. Hold Metoprolol as BP is 90s. --> clonidine per cards prn # Respiratory failure now extubated --> but on bipap+ The timing of this note does not necessarily reflect the time of the patient was seen. GREATLY APPRECIATE CONSULTATION. Subjective Constitutional: Denies: no symptoms, chills, fever, malaise, weakness, other HEENT: Denies: no symptoms, eye pain, blurred vision, tearing, double vision, ear pain, ear discharge, nose pain, nose congestion, throat pain, throat swelling, mouth pain, mouth swelling, other Cardiovascular: Denies: no symptoms, chest pain, edema, irregular heart rate, lightheadedness, palpitations, syncope, other Respiratory: Denies: no symptoms, cough, shortness of breath, SOB with excertion, SOB at rest, sputum, wheezing, other Gastrointestinal/Abdominal: Denies: no symptoms, abdomen distended, abdominal pain, black stools, tarry stools, blood in stool, constipated, diarrhea, difficulty swallowing, nausea, poor appetite, poor fluid intake, rectal bleeding , vomiting, other Genitourinary: Denies: no symptoms, burning, discharge, frequency, flank pain, hematuria, incontinence, pain, urgency, other Neurologic/Psychiatric: Denies: no symptoms, anxiety, depressed, emotional problems, headache, numbness, paresthesia, pre-existing deficit, seizure, tingling, tremors, weakness, other Endocrine: Denies: no symptoms, excessive sweating, flushing, intolerance to cold, intolerance to heat, increased hunger, increased thirst, increased urine, unexplained weight gain, unexplained weight loss, other Allergies: Coded Allergies: No Known Allergies (Unverified , 11/18/18) Subjective 12/14: cxr today shows Mild to moderate interstitial edema and left pleural effusion, venous duplex ordered, hgb at 7.5, repeat cbc tomorrow morning 12/15: one unit prbc was ordered today, duplex showed dvt in all 4 upper and lower ext 12/16: no fevers or chills, no bleeding 12/17: gtube feeds ongoing, no fevers or chills noted, gtube feeds ongoing, elizabeth drain rlq Objective Objective Current Medications Medications (Trade) Dose Ordered Sig/Pauline Route PRN Reason Start Time Stop Time Status Last Admin Dose Admin Acetaminophen (Tylenol) 650 mg Q4H PRN ORAL T>100.5 12/13/18 07:30 01/12/19 07:29 Albuterol/ Ipratropium (Albuterol/ Ipratropium) 3 ml Q4H PRN HHN Shortness of Breath 12/13/18 07:30 12/18/18 07:29 Cefepime HCl 2 gm/ Dextrose 110 ml @ 220 mls/hr EVERY 12 HOURS IV 12/13/18 15:00 12/20/18 14:59 12/16/18 20:27 Chlorhexidine Gluconate (Marycarmen-Hex 2%) 1 applic DAILY@2000 TOPIC 12/17/18 20:00 01/16/19 19:59 Dextrose (Dextrose 50%) 25 ml Q30M PRN IV Hypoglycemia 12/13/18 07:30 01/12/19 07:29 Dextrose (Dextrose 50%) 50 ml Q30M PRN IV Hypoglycemia 12/13/18 07:30 01/12/19 07:29 Digoxin (Lanoxin) 0.125 mg DAILY GT 12/14/18 09:00 01/13/19 08:59 12/16/18 09:31 Heparin Sodium (Porcine) (Heparin 5000 units/ml) 5,000 units EVERY 12 HOURS SUBQ 12/13/18 09:00 01/12/19 08:59 12/16/18 20:29 Hydrocortisone (Proctosol-HC Cream) 1 applic Q12HR TOPIC 12/13/18 21:00 01/12/19 20:59 12/16/18 20:28 Lactobacillus Acidophilus (Culturelle) 1 tab EVERY 8 HOURS GT 12/15/18 14:00 01/12/19 17:59 12/17/18 05:41 Lansoprazole (Prevacid) 30 mg EVERY 12 HOURS GT 12/16/18 21:00 01/15/19 17:59 12/16/18 20:27 Linezolid (Zyvox) 600 mg Q12HR GT 12/16/18 16:00 12/21/18 15:59 12/16/18 20:27 Metoprolol Tartrate (Lopressor) 50 mg Q12HR GT 12/16/18 21:00 01/15/19 20:59 12/16/18 20:27 Morphine Sulfate (Morphine Sulfate) 2 mg EVERY 4 HOURS PRN IVP Severe Pain (Pain Scale 7-10) 12/13/18 07:30 12/20/18 07:29 12/16/18 21:19 Ondansetron HCl (Zofran) 4 mg Q6H PRN IVP Nausea & Vomiting 12/13/18 07:30 01/12/19 07:29 Polyethylene Glycol (Miralax) 17 gm DAILYPRN PRN ORAL Constipation 12/13/18 07:30 01/12/19 07:29 Sodium Hypochlorite (Dakin's Quarter Strength) 1 applic BEDTIME TOPIC 12/15/18 21:00 01/12/19 20:59 12/16/18 20:28 Last 24 Hour Vital Signs Date Time Temp Pulse Resp B/P (MAP) Pulse Ox O2 Delivery O2 Flow Rate FiO2 12/17/18 05:41 2.0 12/17/18 04:54 64 14 100 Facial 40 12/17/18 04:00 Nasal Cannula 5.0 12/17/18 04:00 40 12/17/18 04:00 98.1 106 15 126/60 (82) 100 12/17/18 03:23 102 12/17/18 03:05 71 15 100 Facial 40 12/17/18 00:49 65 14 100 Facial 40 12/17/18 00:00 98.2 110 15 120/71 (87) 100 12/17/18 00:00 101 12/17/18 00:00 40 12/17/18 00:00 Nasal Cannula 5.0 12/16/18 23:04 63 18 100 Facial 40 12/16/18 20:27 121 140/80 12/16/18 20:00 5.0 12/16/18 20:00 98.1 116 24 140/80 (100) 100 12/16/18 20:00 121 12/16/18 20:00 Nasal Cannula 5.0 12/16/18 19:26 99 Nasal Cannula 3.0 32 12/16/18 16:00 98.1 119 24 155/77 (103) 100 12/16/18 16:00 30 12/16/18 16:00 Nasal Cannula 5.0 12/16/18 15:37 134 12/16/18 12:00 97.7 95 24 115/63 (80) 99 12/16/18 12:00 Venturi Mask 4.0 12/16/18 12:00 4.0 30 12/16/18 11:43 104 12/16/18 09:31 103 135/71 12/16/18 09:31 103 12/16/18 08:00 Venturi Mask 4.0 12/16/18 08:00 4.0 30 12/16/18 08:00 98.1 103 22 135/71 (92) 100 12/16/18 07:57 153 12/16/18 07:00 99 Venturi Mask 4.0 30 12/16/18 05:29 95 20 99 12/16/18 05:05 83 19 100 Full Face 40 12/16/18 04:00 Venturi Mask 8.0 12/16/18 04:00 99.0 122 14 124/60 (81) 100 12/16/18 04:00 8.0 12/16/18 03:29 101 12/16/18 01:10 105 22 99 Full Face 40 12/16/18 00:00 Venturi Mask 8.0 12/16/18 00:00 98.8 99 16 148/66 (93) 100 12/15/18 23:35 100 12/15/18 23:10 98 16 100 Full Face 40 12/15/18 23:10 100 Venturi Mask 4.0 30 12/15/18 20:53 105 124/92 12/15/18 20:00 Venturi Mask 8.0 12/15/18 20:00 98.7 88 24 151/83 (105) 100 12/15/18 20:00 8.0 12/15/18 19:58 108 12/15/18 17:05 98.2 106 21 118/64 (82) 99 12/15/18 16:50 98.1 108 21 127/89 (102) 99 12/15/18 16:00 98.1 117 22 122/81 (95) 99 12/15/18 16:00 Venturi Mask 8.0 12/15/18 16:00 8.0 12/15/18 15:45 106 12/15/18 12:00 Venturi Mask 8.0 12/15/18 12:00 8.0 12/15/18 12:00 97.5 93 22 117/73 (88) 98 12/15/18 11:44 101 12/15/18 08:51 100 Venturi Mask 6.0 30 12/15/18 08:16 115 115/71 12/15/18 08:16 115 12/15/18 08:00 97.9 115 22 115/71 (86) 99 12/15/18 08:00 8.0 12/15/18 08:00 Venturi Mask 8.0 12/15/18 07:51 113 Intake and Output 12/16/18 12/17/18 19:00 07:00 Intake Total 1359.3 ml 770 ml Output Total 810 ml 1220 ml Balance 549.3 ml -450 ml Intake Free Water 120 ml IV Total 889.3 ml 110 ml Tube Feeding 410 ml 540 ml Other 60 ml Output Urine Total 750 ml 1000 ml Drainage Total 60 ml 220 ml # Bowel Movements 2 1 Labs Test 12/14/18 19:55 12/15/18 03:00 12/15/18 08:14 12/16/18 04:30 Vancomycin Level Trough 17.5 ug/mL (5.0-12.0) White Blood Count 8.3 K/UL (4.8-10.8) 8.3 K/UL (4.8-10.8) Red Blood Count 2.30 M/UL (4.70-6.10) 2.81 M/UL (4.70-6.10) Hemoglobin 7.1 G/DL (14.2-18.0) 8.7 G/DL (14.2-18.0) Hematocrit 22.5 % (42.0-52.0) 26.9 % (42.0-52.0) Mean Corpuscular Volume 98 FL (80-99) 96 FL (80-99) Mean Corpuscular Hemoglobin 30.7 PG (27.0-31.0) 30.9 PG (27.0-31.0) Mean Corpuscular Hemoglobin Concent 31.3 G/DL (32.0-36.0) 32.3 G/DL (32.0-36.0) Red Cell Distribution Width 16.7 % (11.6-14.8) 16.0 % (11.6-14.8) Platelet Count 268 K/UL (150-450) 290 K/UL (150-450) Mean Platelet Volume 6.0 FL (6.5-10.1) 6.3 FL (6.5-10.1) Neutrophils (%) (Auto) % (45.0-75.0) 78.1 % (45.0-75.0) Lymphocytes (%) (Auto) % (20.0-45.0) 12.2 % (20.0-45.0) Monocytes (%) (Auto) % (1.0-10.0) 7.6 % (1.0-10.0) Eosinophils (%) (Auto) % (0.0-3.0) 1.6 % (0.0-3.0) Basophils (%) (Auto) % (0.0-2.0) 0.6 % (0.0-2.0) Differential Total Cells Counted 100 Neutrophils % (Manual) 89 % (45-75) Lymphocytes % (Manual) 6 % (20-45) Monocytes % (Manual) 4 % (1-10) Eosinophils % (Manual) 1 % (0-3) Basophils % (Manual) 0 % (0-2) Band Neutrophils 0 % (0-8) Platelet Estimate Adequate Platelet Morphology Normal Hypochromasia 2+ Anisocytosis 1+ Sodium Level 140 MMOL/L (136-145) 139 MMOL/L (136-145) Potassium Level 2.9 MMOL/L (3.5-5.1) 3.0 MMOL/L (3.5-5.1) Chloride Level 109 MMOL/L (98-107) 108 MMOL/L (98-107) Carbon Dioxide Level 25 MMOL/L (21-32) 26 MMOL/L (21-32) Anion Gap 6 mmol/L (5-15) 5 mmol/L (5-15) Blood Urea Nitrogen 7 mg/dL (7-18) 7 mg/dL (7-18) Creatinine 0.5 MG/DL (0.55-1.30) 0.4 MG/DL (0.55-1.30) Estimat Glomerular Filtration Rate mL/min (>60) mL/min (>60) Glucose Level 131 MG/DL (74-106) 122 MG/DL (74-106) Calcium Level 7.5 MG/DL (8.5-10.1) 7.6 MG/DL (8.5-10.1) Magnesium Level 1.4 MG/DL (1.8-2.4) 2.0 MG/DL (1.8-2.4) Arterial Blood pH 7.475 (7.350-7.450) Arterial Blood Partial Pressure CO2 31.3 mmHg (35.0-45.0) Arterial Blood Partial Pressure O2 110.7 mmHg (75.0-100.0) Arterial Blood HCO3 22.5 mmol/L (22.0-26.0) Arterial Blood Oxygen Saturation 97.7 % (95-100) Arterial Blood Base Excess -0.8 (-2-2) Blake Test Positive Uric Acid 3.2 MG/DL (2.6-7.2) Phosphorus Level 2.2 MG/DL (2.5-4.9) Total Bilirubin 1.6 MG/DL (0.2-1.0) Direct Bilirubin 1.0 MG/DL (0.0-0.3) Aspartate Amino Transf (AST/SGOT) 44 U/L (15-37) Alanine Aminotransferase (ALT/SGPT) 15 U/L (12-78) Alkaline Phosphatase 753 U/L (46-116) Total Protein 4.3 G/DL (6.4-8.2) Albumin 1.3 G/DL (3.4-5.0) Globulin 3.0 g/dL Albumin/Globulin Ratio 0.4 (1.0-2.7) Test 12/17/18 04:00 White Blood Count 10.4 K/UL (4.8-10.8) Red Blood Count 2.71 M/UL (4.70-6.10) Hemoglobin 8.3 G/DL (14.2-18.0) Hematocrit 25.9 % (42.0-52.0) Mean Corpuscular Volume 96 FL (80-99) Mean Corpuscular Hemoglobin 30.6 PG (27.0-31.0) Mean Corpuscular Hemoglobin Concent 32.0 G/DL (32.0-36.0) Red Cell Distribution Width 16.0 % (11.6-14.8) Platelet Count 311 K/UL (150-450) Mean Platelet Volume 6.8 FL (6.5-10.1) Neutrophils (%) (Auto) 82.7 % (45.0-75.0) Lymphocytes (%) (Auto) 8.4 % (20.0-45.0) Monocytes (%) (Auto) 7.3 % (1.0-10.0) Eosinophils (%) (Auto) 1.2 % (0.0-3.0) Basophils (%) (Auto) 0.4 % (0.0-2.0) Erythrocyte Sedimentation Rate 42 MM/HR (0-20) Sodium Level 141 MMOL/L (136-145) Potassium Level 3.1 MMOL/L (3.5-5.1) Chloride Level 110 MMOL/L (98-107) Carbon Dioxide Level 25 MMOL/L (21-32) Anion Gap 6 mmol/L (5-15) Blood Urea Nitrogen 6 mg/dL (7-18) Creatinine 0.4 MG/DL (0.55-1.30) Estimat Glomerular Filtration Rate mL/min (>60) Glucose Level 130 MG/DL (74-106) Calcium Level 6.7 MG/DL (8.5-10.1) Phosphorus Level 2.6 MG/DL (2.5-4.9) Magnesium Level 1.5 MG/DL (1.8-2.4) Total Bilirubin 1.0 MG/DL (0.2-1.0) Aspartate Amino Transf (AST/SGOT) 29 U/L (15-37) Alanine Aminotransferase (ALT/SGPT) 15 U/L (12-78) Alkaline Phosphatase 610 U/L (46-116) C-Reactive Protein, Quantitative 2.5 mg/dL (0.00-0.90) Total Protein 4.1 G/DL (6.4-8.2) Albumin 1.2 G/DL (3.4-5.0) Globulin 2.9 g/dL Albumin/Globulin Ratio 0.4 (1.0-2.7) Digoxin Level 0.5 NG/ML (0.5-2.0) Height (Feet): 5 Height (Inches): 5.00 Weight (Pounds): 182 Objective PHYSICAL EXAM General Appearance: WD/WN Lines, tubes and drains: central line HEENT: normocephalic, atraumatic Neck: non-tender, normal alignment Breasts: no masses Cardiovascular/Chest: normal peripheral pulses, normal rate, regular rhythm ++ bipap Abdomen: normal bowel sounds, non tender ++ peg Genitourinary/Rectal: normal genital exam, heme negative stool Extremities: normal range of motion Skin Exam: elizabeth drain rlq++ 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
--- NOTE | 2018-12-17 07:20 | NUR ---
NURSE NOTES: RECEIVED PT WITH HOB ELEVATED 45 DEGREE,EYES OPENS WITH VERBAL AND TACTILE STIMULI.PT IS NON-VERBAL,USING O2@ 2L/MIN VIA N/C SAT 98%.PT WITH GTF RECEIVING VITAL A.F 1.2 @ 50CC/HRS TOLERATING WELL.TLC ON RT SUBCLAVIAN AREA INTACT AND PATENT PT STARTED ON KCL 40MEQ IVPB ,K+ 3.1 and MAGNESIUM 2GM IVPB ,MG LEVEL 1.5 ALL IVPB,S INFUSING WELL.PT WITH J.P IN PLACE DRAINING LIGHT GREEN SECRETION .,F/C DRAINING WELL WESLY URINE COLOR .FULL BODY ASSESSMENT DONE.PT INCONTINENT OF WATERY YELLOW COLOR STOOLS.RENDERED TOTAL AM NSG CARE DONE GIVEN B.B ,WOUND CARE AND BED LINEN CHANGE.PT REPOSITIONED IN BED AND MADE COMFORTABLE POSSIBLE. NO ACUTE DISTRESS NOTED AT THIS TIME. WILL CONT TO MONITOR.
--- NOTE | 2018-12-17 07:27 | NUR ---
HAND-OFF: Report given to MONA Muller. No distress noted.
[2018-12-17 08:00] VITALS: BP 143/82
--- NOTE | 2018-12-17 08:47 | NUR ---
RESPIRATORY NOTE: pt on 2L NC with saturation of 99%. pt in no resp distress. slight redness on the bridge of pt's nose, but no skin tears. RN made aware.
[2018-12-17] MEDS: Metoprolol Tartrate 50mg tab GT SCH ×2 (09:14→21:49)
[2018-12-17] MEDS: Cefepime HCl 2 GM in D5W 110 ML IV SCH ×2 (09:15→21:51)
[2018-12-17] MEDS: Digoxin 0.125mg tab GT SCH (09:15)
[2018-12-17] MEDS: Hydrocortisone 2.5% Cream - 30gm TOPIC SCH ×2 (09:18→21:50)
[2018-12-17] MEDS: Heparin 5000 units/ml inj SUBQ SCH ×2 (09:21→21:52)
--- NOTE | 2018-12-17 09:29 | General Progress Note ---
Assessment/Plan Problem List: (1) Seizures ICD Codes: R56.9 - Unspecified convulsions SNOMED: 71131606 (2) Parkinson disease ICD Codes: G20 - Parkinson's disease SNOMED: 48423030 (3) Alzheimer's dementia ICD Codes: G30.9 - Alzheimer's disease, unspecified; F02.80 - Dementia in other diseases classified elsewhere without behavioral disturbance SNOMED: 59989702 (4) COPD (chronic obstructive pulmonary disease) ICD Codes: J44.9 - Chronic obstructive pulmonary disease, unspecified SNOMED: 86842257 (5) Acute DVT (deep venous thrombosis) ICD Codes: I82.409 - Acute embolism and thrombosis of unspecified deep veins of unspecified lower extremity SNOMED: 059987665262125 (6) SOB (shortness of breath) ICD Codes: R06.02 - Shortness of breath SNOMED: 140230969 Status: stable, progressing Assessment/Plan: o2 pulm tx abx cbc bmp am promise dc plan snf Subjective Constitutional: Reports: weakness Allergies: Coded Allergies: No Known Allergies (Unverified , 11/18/18) All Systems: reviewed and negative except above Subjective o2 nc calm Objective Last 24 Hour Vital Signs Date Time Temp Pulse Resp B/P (MAP) Pulse Ox O2 Delivery O2 Flow Rate FiO2 12/17/18 09:15 99 12/17/18 09:14 99 143/82 12/17/18 08:46 99 Nasal Cannula 2.0 28 12/17/18 08:00 98.1 99 18 143/82 (102) 100 12/17/18 05:41 2.0 12/17/18 04:54 64 14 100 Facial 40 12/17/18 04:00 Nasal Cannula 5.0 12/17/18 04:00 40 12/17/18 04:00 98.1 106 15 126/60 (82) 100 12/17/18 03:23 102 12/17/18 03:05 71 15 100 Facial 40 12/17/18 00:49 65 14 100 Facial 40 12/17/18 00:00 98.2 110 15 120/71 (87) 100 12/17/18 00:00 101 12/17/18 00:00 40 12/17/18 00:00 Nasal Cannula 5.0 12/16/18 23:04 63 18 100 Facial 40 12/16/18 20:27 121 140/80 12/16/18 20:00 5.0 12/16/18 20:00 98.1 116 24 140/80 (100) 100 12/16/18 20:00 121 12/16/18 20:00 Nasal Cannula 5.0 12/16/18 19:26 99 Nasal Cannula 3.0 32 12/16/18 16:00 98.1 119 24 155/77 (103) 100 12/16/18 16:00 30 12/16/18 16:00 Nasal Cannula 5.0 12/16/18 15:37 134 12/16/18 12:00 97.7 95 24 115/63 (80) 99 12/16/18 12:00 Venturi Mask 4.0 12/16/18 12:00 4.0 30 12/16/18 11:43 104 12/16/18 09:31 103 135/71 12/16/18 09:31 103 Intake and Output 12/16/18 12/17/18 19:00 07:00 Intake Total 1359.3 ml 820 ml Output Total 810 ml 1220 ml Balance 549.3 ml -400 ml Intake Free Water 120 ml IV Total 889.3 ml 110 ml Tube Feeding 410 ml 590 ml Other 60 ml Output Urine Total 750 ml 1000 ml Drainage Total 60 ml 220 ml # Bowel Movements 2 1 Laboratory Tests 12/17/18 04:00: White Blood Count 10.4, Red Blood Count 2.71L, Hemoglobin 8.3L, Hematocrit 25.9L , Mean Corpuscular Volume 96, Mean Corpuscular Hemoglobin 30.6, Mean Corpuscular Hemoglobin Concent 32.0, Red Cell Distribution Width 16.0H, Platelet Count 311, Mean Platelet Volume 6.8, Neutrophils (%) (Auto) 82.7H, Lymphocytes (%) (Auto) 8.4L, Monocytes (%) (Auto) 7.3, Eosinophils (%) (Auto) 1.2, Basophils (%) (Auto) 0.4, Erythrocyte Sedimentation Rate 42H, Sodium Level 141, Potassium Level 3.1L, Chloride Level 110H, Carbon Dioxide Level 25, Anion Gap 6, Blood Urea Nitrogen 6L, Creatinine 0.4L, Estimat Glomerular Filtration Rate , Glucose Level 130H, Calcium Level 6.7L, Phosphorus Level 2.6, Magnesium Level 1.5L, Total Bilirubin 1.0, Aspartate Amino Transf (AST/SGOT) 29, Alanine Aminotransferase (ALT/SGPT) 15, Alkaline Phosphatase 610H, C-Reactive Protein, Quantitative 2.5H, Total Protein 4.1L, Albumin 1.2L, Globulin 2.9, Albumin/ Globulin Ratio 0.4L, Digoxin Level 0.5 Height (Feet): 5 Height (Inches): 5.00 Weight (Pounds): 182 General Appearance: lethargic EENT: normal ENT inspection Neck: normal alignment Cardiovascular: normal peripheral pulses, normal rate, regular rhythm Respiratory/Chest: chest wall non-tender, lungs clear, normal breath sounds Abdomen: normal bowel sounds, non tender, soft Extremities: normal inspection Edema: 1+ Arm (L), 1+ Arm (R), 1+ Leg (L), 1+ Leg (R), 1+ Pedal (L), 1+ Pedal ( R), 1+ Generalized Edema: trace edema Neurologic: motor weakness Skin: normal pigmentation, warm/dry Abdullahi Gonzalez DO Dec 17, 2018 09:29
--- NOTE | 2018-12-17 10:01 | GI Progress Note ---
Assessment/Plan Problems: (1) Duodenal ulcer hemorrhage ICD Codes: K26.4 - Chronic or unspecified duodenal ulcer with hemorrhage SNOMED: 56632538 (2) Feeding by G-tube ICD Codes: Z93.1 - Gastrostomy status SNOMED: 965165123, 886451202, 485846615 (3) SOB (shortness of breath) ICD Codes: R06.02 - Shortness of breath SNOMED: 201148825 (4) Perforated duodenal ulcer ICD Codes: K26.5 - Chronic or unspecified duodenal ulcer with perforation SNOMED: 14613910 (5) Severe protein-calorie malnutrition ICD Codes: E43 - Unspecified severe protein-calorie malnutrition SNOMED: 366061272, 985910524, 431789909 Status: unchanged Status Narrative Discussed with Dr. Dallas. Assessment/Plan Duodenal ulcer, s/p SURG TF per surgery iv ppi stable H&H will fu may need TPN if prolonged NPO status anticipated The patient was seen and examined at bedside and all new and available data was reviewed in the patients chart. I agree with the above findings, impression and plan. (Patient seen earlier today. Signature stamp does not reflect patient encounter time.). - Deacon Dallas MD Subjective Subjective Limited Objective Last 24 Hour Vital Signs Date Time Temp Pulse Resp B/P (MAP) Pulse Ox O2 Delivery O2 Flow Rate FiO2 12/17/18 09:15 99 12/17/18 09:14 99 143/82 12/17/18 08:46 99 Nasal Cannula 2.0 28 12/17/18 08:00 98.1 99 18 143/82 (102) 100 12/17/18 05:41 2.0 12/17/18 04:54 64 14 100 Facial 40 12/17/18 04:00 Nasal Cannula 5.0 12/17/18 04:00 40 12/17/18 04:00 98.1 106 15 126/60 (82) 100 12/17/18 03:23 102 12/17/18 03:05 71 15 100 Facial 40 12/17/18 00:49 65 14 100 Facial 40 12/17/18 00:00 98.2 110 15 120/71 (87) 100 12/17/18 00:00 101 12/17/18 00:00 40 12/17/18 00:00 Nasal Cannula 5.0 12/16/18 23:04 63 18 100 Facial 40 12/16/18 20:27 121 140/80 12/16/18 20:00 5.0 12/16/18 20:00 98.1 116 24 140/80 (100) 100 12/16/18 20:00 121 12/16/18 20:00 Nasal Cannula 5.0 12/16/18 19:26 99 Nasal Cannula 3.0 32 12/16/18 16:00 98.1 119 24 155/77 (103) 100 12/16/18 16:00 30 12/16/18 16:00 Nasal Cannula 5.0 12/16/18 15:37 134 12/16/18 12:00 97.7 95 24 115/63 (80) 99 12/16/18 12:00 Venturi Mask 4.0 12/16/18 12:00 4.0 30 12/16/18 11:43 104 Intake and Output 12/16/18 12/17/18 19:00 07:00 Intake Total 1359.3 ml 820 ml Output Total 810 ml 1220 ml Balance 549.3 ml -400 ml Intake Free Water 120 ml IV Total 889.3 ml 110 ml Tube Feeding 410 ml 590 ml Other 60 ml Output Urine Total 750 ml 1000 ml Drainage Total 60 ml 220 ml # Bowel Movements 2 1 Laboratory Tests Test 12/17/18 04:00 White Blood Count 10.4 K/UL (4.8-10.8) Red Blood Count 2.71 M/UL (4.70-6.10) L Hemoglobin 8.3 G/DL (14.2-18.0) L Hematocrit 25.9 % (42.0-52.0) L Mean Corpuscular Volume 96 FL (80-99) Mean Corpuscular Hemoglobin 30.6 PG (27.0-31.0) Mean Corpuscular Hemoglobin Concent 32.0 G/DL (32.0-36.0) Red Cell Distribution Width 16.0 % (11.6-14.8) H Platelet Count 311 K/UL (150-450) Mean Platelet Volume 6.8 FL (6.5-10.1) Neutrophils (%) (Auto) 82.7 % (45.0-75.0) H Lymphocytes (%) (Auto) 8.4 % (20.0-45.0) L Monocytes (%) (Auto) 7.3 % (1.0-10.0) Eosinophils (%) (Auto) 1.2 % (0.0-3.0) Basophils (%) (Auto) 0.4 % (0.0-2.0) Erythrocyte Sedimentation Rate 42 MM/HR (0-20) H Sodium Level 141 MMOL/L (136-145) Potassium Level 3.1 MMOL/L (3.5-5.1) L Chloride Level 110 MMOL/L (98-107) H Carbon Dioxide Level 25 MMOL/L (21-32) Anion Gap 6 mmol/L (5-15) Blood Urea Nitrogen 6 mg/dL (7-18) L Creatinine 0.4 MG/DL (0.55-1.30) L Estimat Glomerular Filtration Rate mL/min (>60) Glucose Level 130 MG/DL (74-106) H Calcium Level 6.7 MG/DL (8.5-10.1) L Phosphorus Level 2.6 MG/DL (2.5-4.9) Magnesium Level 1.5 MG/DL (1.8-2.4) L Total Bilirubin 1.0 MG/DL (0.2-1.0) Aspartate Amino Transf (AST/SGOT) 29 U/L (15-37) Alanine Aminotransferase (ALT/SGPT) 15 U/L (12-78) Alkaline Phosphatase 610 U/L (46-116) H C-Reactive Protein, Quantitative 2.5 mg/dL (0.00-0.90) H Total Protein 4.1 G/DL (6.4-8.2) L Albumin 1.2 G/DL (3.4-5.0) L Globulin 2.9 g/dL Albumin/Globulin Ratio 0.4 (1.0-2.7) L Digoxin Level 0.5 NG/ML (0.5-2.0) Height (Feet): 5 Height (Inches): 5.00 Weight (Pounds): 182 General Appearance: no apparent distress Cardiovascular: normal rate Respiratory/Chest: normal breath sounds, no respiratory distress Abdominal Exam: normal bowel sounds, non tender, soft, GT site Extremities: non-tender Objective The patient was discharged over the weekend, return back to the hospital after episode of shortness of breath. Sohan Kohli NP Dec 17, 2018 10:01
--- NOTE | 2018-12-17 10:16 | Pulmonology Progress Note ---
Assessment/Plan Problems: (1) Acute respiratory failure (2) C. difficile colitis (3) COPD (chronic obstructive pulmonary disease) (4) Acute DVT (deep venous thrombosis) (5) S/P insertion of IVC (inferior vena caval) filter (6) Severe protein-calorie malnutrition (7) Feeding by G-tube (8) Alzheimer's dementia (9) Parkinson disease (10) Status post exploratory laparotomy Assessment/Plan afebrile, doing better cxr unchanged K and phos supplement iv abx check cultures electrolytes supplement check H/h s/p ivc Subjective ROS Limited/Unobtainable: No Interval Events: awake, comfortable Allergies: Coded Allergies: No Known Allergies (Unverified , 11/18/18) Objective Last 24 Hour Vital Signs Date Time Temp Pulse Resp B/P (MAP) Pulse Ox O2 Delivery O2 Flow Rate FiO2 12/17/18 09:15 99 12/17/18 09:14 99 143/82 12/17/18 08:46 99 Nasal Cannula 2.0 28 12/17/18 08:00 98.1 99 18 143/82 (102) 100 12/17/18 05:41 2.0 12/17/18 04:54 64 14 100 Facial 40 12/17/18 04:00 Nasal Cannula 5.0 12/17/18 04:00 40 12/17/18 04:00 98.1 106 15 126/60 (82) 100 12/17/18 03:23 102 12/17/18 03:05 71 15 100 Facial 40 12/17/18 00:49 65 14 100 Facial 40 12/17/18 00:00 98.2 110 15 120/71 (87) 100 12/17/18 00:00 101 12/17/18 00:00 40 12/17/18 00:00 Nasal Cannula 5.0 12/16/18 23:04 63 18 100 Facial 40 12/16/18 20:27 121 140/80 12/16/18 20:00 5.0 12/16/18 20:00 98.1 116 24 140/80 (100) 100 12/16/18 20:00 121 12/16/18 20:00 Nasal Cannula 5.0 12/16/18 19:26 99 Nasal Cannula 3.0 32 12/16/18 16:00 98.1 119 24 155/77 (103) 100 12/16/18 16:00 30 12/16/18 16:00 Nasal Cannula 5.0 12/16/18 15:37 134 12/16/18 12:00 97.7 95 24 115/63 (80) 99 12/16/18 12:00 Venturi Mask 4.0 12/16/18 12:00 4.0 30 12/16/18 11:43 104 Intake and Output 12/16/18 12/17/18 19:00 07:00 Intake Total 1359.3 ml 820 ml Output Total 810 ml 1220 ml Balance 549.3 ml -400 ml Intake Free Water 120 ml IV Total 889.3 ml 110 ml Tube Feeding 410 ml 590 ml Other 60 ml Output Urine Total 750 ml 1000 ml Drainage Total 60 ml 220 ml # Bowel Movements 2 1 General Appearance: WD/WN HEENT: normocephalic, atraumatic Respiratory/Chest: chest wall non-tender, lungs clear Cardiovascular: normal peripheral pulses, normal rate Abdomen: soft, non tender, no organomegaly Extremities: no cyanosis, no clubbing Skin: no lesions Laboratory Tests 12/17/18 04:00: White Blood Count 10.4, Red Blood Count 2.71L, Hemoglobin 8.3L, Hematocrit 25.9L , Mean Corpuscular Volume 96, Mean Corpuscular Hemoglobin 30.6, Mean Corpuscular Hemoglobin Concent 32.0, Red Cell Distribution Width 16.0H, Platelet Count 311, Mean Platelet Volume 6.8, Neutrophils (%) (Auto) 82.7H, Lymphocytes (%) (Auto) 8.4L, Monocytes (%) (Auto) 7.3, Eosinophils (%) (Auto) 1.2, Basophils (%) (Auto) 0.4, Erythrocyte Sedimentation Rate 42H, Sodium Level 141, Potassium Level 3.1L, Chloride Level 110H, Carbon Dioxide Level 25, Anion Gap 6, Blood Urea Nitrogen 6L, Creatinine 0.4L, Estimat Glomerular Filtration Rate , Glucose Level 130H, Calcium Level 6.7L, Phosphorus Level 2.6, Magnesium Level 1.5L, Total Bilirubin 1.0, Aspartate Amino Transf (AST/SGOT) 29, Alanine Aminotransferase (ALT/SGPT) 15, Alkaline Phosphatase 610H, C-Reactive Protein, Quantitative 2.5H, Total Protein 4.1L, Albumin 1.2L, Globulin 2.9, Albumin/ Globulin Ratio 0.4L, Digoxin Level 0.5 Current Medications Medications (Trade) Dose Ordered Sig/Pauline Route PRN Reason Start Time Stop Time Status Last Admin Dose Admin Acetaminophen (Tylenol) 650 mg Q4H PRN ORAL T>100.5 12/13/18 07:30 01/12/19 07:29 Albuterol/ Ipratropium (Albuterol/ Ipratropium) 3 ml Q4H PRN HHN Shortness of Breath 12/13/18 07:30 12/18/18 07:29 Cefepime HCl 2 gm/ Dextrose 110 ml @ 220 mls/hr EVERY 12 HOURS IV 12/13/18 15:00 12/20/18 14:59 12/17/18 09:15 Chlorhexidine Gluconate (Marycarmen-Hex 2%) 1 applic DAILY@2000 TOPIC 12/17/18 20:00 01/16/19 19:59 Dextrose (Dextrose 50%) 25 ml Q30M PRN IV Hypoglycemia 12/13/18 07:30 01/12/19 07:29 Dextrose (Dextrose 50%) 50 ml Q30M PRN IV Hypoglycemia 12/13/18 07:30 01/12/19 07:29 Digoxin (Lanoxin) 0.125 mg DAILY GT 12/14/18 09:00 01/13/19 08:59 12/17/18 09:15 Heparin Sodium (Porcine) (Heparin 5000 units/ml) 5,000 units EVERY 12 HOURS SUBQ 12/13/18 09:00 01/12/19 08:59 12/17/18 09:21 Hydrocortisone (Proctosol-HC Cream) 1 applic Q12HR TOPIC 12/13/18 21:00 01/12/19 20:59 12/17/18 09:18 Lactobacillus Acidophilus (Culturelle) 1 tab EVERY 8 HOURS GT 12/15/18 14:00 01/12/19 17:59 12/17/18 05:41 Lansoprazole (Prevacid) 30 mg EVERY 12 HOURS GT 12/16/18 21:00 01/15/19 17:59 12/17/18 09:14 Linezolid (Zyvox) 600 mg Q12HR GT 12/16/18 16:00 12/21/18 15:59 12/17/18 09:15 Memantine (Namenda) 5 mg DAILY GT 12/18/18 09:00 01/17/19 08:59 Metoprolol Tartrate (Lopressor) 50 mg Q12HR GT 12/16/18 21:00 01/15/19 20:59 12/17/18 09:14 Morphine Sulfate (Morphine Sulfate) 2 mg EVERY 4 HOURS PRN IVP Severe Pain (Pain Scale 7-10) 12/13/18 07:30 12/20/18 07:29 12/16/18 21:19 Ondansetron HCl (Zofran) 4 mg Q6H PRN IVP Nausea & Vomiting 12/13/18 07:30 01/12/19 07:29 Polyethylene Glycol (Miralax) 17 gm DAILYPRN PRN ORAL Constipation 12/13/18 07:30 01/12/19 07:29 Potassium Phosphate 20 mm/ Sodium Chloride 281.6667 ml @ 46.944 m... ONCE ONCE IV 12/17/18 11:15 12/17/18 17:14 Potassium Chloride 100 ml @ 100 mls/hr Q1H IVPB 12/17/18 07:30 12/17/18 11:29 12/17/18 09:07 Sodium Hypochlorite (Dakin's Quarter Strength) 1 applic BEDTIME TOPIC 12/15/18 21:00 01/12/19 20:59 12/16/18 20:28 David Carrasquillo MD Dec 17, 2018 10:16
--- NOTE | 2018-12-17 11:08 | NUR ---
APPLICATION SOFTWARE DEVELOPERPRECISION AGRICULTURE SPECIALIST SI: RESP FAILURE,HYPOKALEMIA T. 98.1 HR 99 RR 18 B/P 143/83 2L NC O2 SAT @ 98% ESR 42 K 3.1 MG 1.5 ALK PHOS 610 DOPPLER-ACUTE RIGHT LEG NONOBSTRUCTIVE DVT IS: K-PHOS IV KCL IV CEFEPIME IV HEPARIN SUBC STEP DOWN UNIT
[2018-12-17] MEDS ORDERED: Potassium Phosphate 20 MM in NS 275 ML IV ONE (11:15)
[2018-12-17 12:00] VITALS: BP 104/63
--- NOTE | 2018-12-17 12:58 | Cardiac Electrophysiology PN ---
Assessment/Plan Assessment/Plan 1. Post op atrial fib with RVR 170s. On Dig 0.125 PEG daily and Lopressor 50 GT bid 2. S/P Septic and hemorrhagic shock . Echo EF 55% 3. Acute right leg DVT and Bilateral UE DVT. S/P IVC filter . Off Eliquis for severe anemia and GI bleed 4. Staph aureous bacteremia. On Abx per Dr Yee 5. Parkinsonism. 6. COPD. 7. UTI. 8. Severe anemia and rectal bleed. S/P Colonoscopy on 11/20/18 and 11/29/18 and transfusion No obvious source. S/P EGD by Dr Dallas and Anterior duodenostomy for control of large posterior duodenal ulcer hemorrhage by Dr Eugene on 12/02/18 S/P transfusion again 12/15/18 9. Seizure disorder. 10. S/P PEG 11. Respiratory failure, extubated 12/08/18. EHSAN RN Subjective Subjective On Face Mask. Had Atrial fib with RVR up to 160s yesterday Objective Last 24 Hour Vital Signs Date Time Temp Pulse Resp B/P (MAP) Pulse Ox O2 Delivery O2 Flow Rate FiO2 12/17/18 12:00 2.0 12/17/18 12:00 98.1 85 20 104/63 (77) 100 12/17/18 09:15 99 12/17/18 09:14 99 143/82 12/17/18 08:46 99 Nasal Cannula 2.0 28 12/17/18 08:00 128 12/17/18 08:00 Nasal Cannula 5.0 12/17/18 08:00 2.0 12/17/18 08:00 98.1 99 18 143/82 (102) 100 12/17/18 05:41 2.0 12/17/18 04:54 64 14 100 Facial 40 12/17/18 04:00 Nasal Cannula 5.0 12/17/18 04:00 40 12/17/18 04:00 98.1 106 15 126/60 (82) 100 12/17/18 03:23 102 12/17/18 03:05 71 15 100 Facial 40 12/17/18 00:49 65 14 100 Facial 40 12/17/18 00:00 98.2 110 15 120/71 (87) 100 12/17/18 00:00 101 12/17/18 00:00 40 12/17/18 00:00 Nasal Cannula 5.0 12/16/18 23:04 63 18 100 Facial 40 12/16/18 20:27 121 140/80 12/16/18 20:00 5.0 12/16/18 20:00 98.1 116 24 140/80 (100) 100 12/16/18 20:00 121 12/16/18 20:00 Nasal Cannula 5.0 12/16/18 19:26 99 Nasal Cannula 3.0 32 12/16/18 16:00 98.1 119 24 155/77 (103) 100 12/16/18 16:00 30 12/16/18 16:00 Nasal Cannula 5.0 12/16/18 15:37 134 Intake and Output 12/16/18 12/17/18 18:59 06:59 Intake Total 1256.0 ml 903.3 ml Output Total 1510 ml 1220 ml Balance -254.0 ml -316.7 ml Intake Free Water 120 ml IV Total 796.0 ml 203.3 ml Tube Feeding 400 ml 580 ml Other 60 ml Output Urine Total 1350 ml 1000 ml Drainage Total 160 ml 220 ml # Bowel Movements 3 1 Laboratory Tests Test 12/17/18 04:00 White Blood Count 10.4 K/UL (4.8-10.8) Red Blood Count 2.71 M/UL (4.70-6.10) L Hemoglobin 8.3 G/DL (14.2-18.0) L Hematocrit 25.9 % (42.0-52.0) L Mean Corpuscular Volume 96 FL (80-99) Mean Corpuscular Hemoglobin 30.6 PG (27.0-31.0) Mean Corpuscular Hemoglobin Concent 32.0 G/DL (32.0-36.0) Red Cell Distribution Width 16.0 % (11.6-14.8) H Platelet Count 311 K/UL (150-450) Mean Platelet Volume 6.8 FL (6.5-10.1) Neutrophils (%) (Auto) 82.7 % (45.0-75.0) H Lymphocytes (%) (Auto) 8.4 % (20.0-45.0) L Monocytes (%) (Auto) 7.3 % (1.0-10.0) Eosinophils (%) (Auto) 1.2 % (0.0-3.0) Basophils (%) (Auto) 0.4 % (0.0-2.0) Erythrocyte Sedimentation Rate 42 MM/HR (0-20) H Sodium Level 141 MMOL/L (136-145) Potassium Level 3.1 MMOL/L (3.5-5.1) L Chloride Level 110 MMOL/L (98-107) H Carbon Dioxide Level 25 MMOL/L (21-32) Anion Gap 6 mmol/L (5-15) Blood Urea Nitrogen 6 mg/dL (7-18) L Creatinine 0.4 MG/DL (0.55-1.30) L Estimat Glomerular Filtration Rate mL/min (>60) Glucose Level 130 MG/DL (74-106) H Calcium Level 6.7 MG/DL (8.5-10.1) L Phosphorus Level 2.6 MG/DL (2.5-4.9) Magnesium Level 1.5 MG/DL (1.8-2.4) L Total Bilirubin 1.0 MG/DL (0.2-1.0) Aspartate Amino Transf (AST/SGOT) 29 U/L (15-37) Alanine Aminotransferase (ALT/SGPT) 15 U/L (12-78) Alkaline Phosphatase 610 U/L (46-116) H C-Reactive Protein, Quantitative 2.5 mg/dL (0.00-0.90) H Total Protein 4.1 G/DL (6.4-8.2) L Albumin 1.2 G/DL (3.4-5.0) L Globulin 2.9 g/dL Albumin/Globulin Ratio 0.4 (1.0-2.7) L Digoxin Level 0.5 NG/ML (0.5-2.0) Objective HEAD AND NECK: No JVD LUNGS: Decreased breath sounds. CARDIOVASCULAR: Regular S1 and S2 with no gallop . ABDOMEN: Soft. G-tube intact. S/P Laparatomy with ANGIE drain EXTREMITIES: Upper extremity and LE edema. Earl Washington MD Dec 17, 2018 12:58
--- NOTE | 2018-12-17 14:15 | Infectious Diseases Prog Note ---
Assessment/Plan Assessment/Plan Acute respiratory failure, recurrent 12/13 , on bipap- r/o recurent pNA -CXR: Pulmonary edema versus infiltrates. Study is currently limited as obtained. Suspect a left pleural effusion -sp cx: Citrobacter diversus (R ancef, Ceftazidime, Ceftriaxone, Gentamycin, Bactrim), diptheroids, Citrobacter #2 (R Ancef, Gentamycin, Bactrim) Afebrile Leukocytosis; recurrent- resolved -u/a no pyuria, nit +, leuk +1; ucx 10-20k Pseudomonas fluorecens- R cipro/ Levo; I Genta (colonzier) -Bcx NTD Gram positiev bacteremia- likely contaminant -12/13 Bcx / CONS; 12/16 BCx p VDRF, s/p extubation 12/08 Recet GIB- 2ry to actively bleeding Duodenal ulcer -12/02 SP exploratory laparotomy. Anterior duodenotomy for control of large posterior duodenal ulcer hemorrhage. closure of duodenotomy. pyloric exclusion with gastrojejunostomy abdominal washout. abdominal drain placement -12/02 SP EGD Recent Shock likely hemorrhagic and septic component -12/04 CXR: Suggestion of a slightly worsening vascular congestion -12/03 u/a neg, ucx Neg Bcx Neg -12/02 CXR: Slightly increased bilateral infiltrates Diarrhea CDiff +, sp rx GI bleed 11/29 Colonscopy : Diverticulosis Recent Sepsis -11/30 CT abd/p: Nonspecific trace free intraperitoneal fluid. No acute abdominal or pelvic process otherwise. Fairly extensive bilateral basilar pulmonary parenchymal consolidation and atelectasis. Bilateral small pleural effusions. Colonic diverticulosis. No evidence of diverticulitis. Gastrostomy. Nonobstructive 3 mm left intrarenal calyceal calculus. Prostatomegaly. Edema of the bilateral left greater than right subcutaneous fat. Fairly extensive chronic appearing bilateral hip degenerative changes, with bilateral joint effusions versus chronic synovial proliferation. Inferior vena cava filter -11/28 BCx Neg u/a no pyuria ucx Neg Pneumonia -12/07 CXR: Patchy airspace disease noted in the perihilar basilar regions. There may be a small left pleural effusion now present -12/03 Sp cx Citrobacter diversus (R Genta,Ancef, Bactrim); MDR P. stuarti ( S Amikacin) -CXR: Patchy bilateral infiltrates versus mixed interstitial alveolar edema noted. -sp cx MRSA, MDR P. stuarti (S Amikacin, Zosyn ; I cefepime; S ertapenem) MRSA bacteremia- suspect 2ry to PNA- ,sp Rx -11/18 Bcx 2/4 MRSA , 1/4 S. capitis, Diptheroids (these 2 are contaminants); BCx Neg -2d Echo:limited study (no vegetations) Probable UTI, sp Rx -u/a wbc 10-15, nit neg, leuk +2; ucx MDR ABC (S bactrim, gentamicin) Sacral decubitus ulcer, necrotic, surrounding cellulitis -12/13 wound cx: Citrobacter diversus (R Ancef, Gentamycin, Bactrim), VRE dementia HTN CKD COPD dysphagia s/p Gtube feeding Parkinson disease seizure disorder multiple decubiti wounds [facility] resident Plan: -Continue Cefepime #10/31-10 for Citrobacter PNA -Linezolid #2 (abx #6) for gram positive bacteremia and VRE wound -monitor Platelets -12/16 SP IV Vancomycin #5 -12/15 SP empiric IV Vancomycin #4, IV Flagyl #12 and IV Amikacin #8 -/ SP IV Vancomycin #22 -7/ SP PO Vancomycin #5 (held as pt now is NPO) -12/02 SP Flagyl #4 -/ SP Zosyn #8 -/ SP Bactrim #7 -11/23 SP Cefepime #6 -11/18 SP Levaquin x1 -f/u cx -Monitor CBC/CMP, temperatures -GT care -aspiration precautions -wound care per surgical team -Bx x2 Subjective Allergies: Coded Allergies: No Known Allergies (Unverified , 11/18/18) Subjective afebrile no leukocytosis repeat Bc xp Objective Vital Signs Last 24 Hour Vital Signs Date Time Temp Pulse Resp B/P (MAP) Pulse Ox O2 Delivery O2 Flow Rate FiO2 12/17/18 12:00 2.0 12/17/18 12:00 98.1 85 20 104/63 (77) 100 12/17/18 09:15 99 12/17/18 09:14 99 143/82 12/17/18 08:46 99 Nasal Cannula 2.0 28 12/17/18 08:00 128 12/17/18 08:00 Nasal Cannula 5.0 12/17/18 08:00 2.0 12/17/18 08:00 98.1 99 18 143/82 (102) 100 12/17/18 05:41 2.0 12/17/18 04:54 64 14 100 Facial 40 12/17/18 04:00 Nasal Cannula 5.0 12/17/18 04:00 40 12/17/18 04:00 98.1 106 15 126/60 (82) 100 12/17/18 03:23 102 12/17/18 03:05 71 15 100 Facial 40 12/17/18 00:49 65 14 100 Facial 40 12/17/18 00:00 98.2 110 15 120/71 (87) 100 12/17/18 00:00 101 12/17/18 00:00 40 12/17/18 00:00 Nasal Cannula 5.0 12/16/18 23:04 63 18 100 Facial 40 12/16/18 20:27 121 140/80 12/16/18 20:00 5.0 12/16/18 20:00 98.1 116 24 140/80 (100) 100 12/16/18 20:00 121 12/16/18 20:00 Nasal Cannula 5.0 12/16/18 19:26 99 Nasal Cannula 3.0 32 12/16/18 16:00 98.1 119 24 155/77 (103) 100 12/16/18 16:00 30 12/16/18 16:00 Nasal Cannula 5.0 12/16/18 15:37 134 Height (Feet): 5 Height (Inches): 5.00 Weight (Pounds): 182 Objective GENERAL: O2 mask in place, sleeping in bed, nonverbal. CARDIOVASCULAR: No murmur. LUNGS: Poor air exchange. ABDOMEN: Bowel sounds distant. EXTREMITIES: No cyanosis, clubbing, or edema. NEUROLOGIC: The patient is flaccid in bed, not following directions. Laboratory Tests Test 12/17/18 04:00 White Blood Count 10.4 K/UL (4.8-10.8) Red Blood Count 2.71 M/UL (4.70-6.10) L Hemoglobin 8.3 G/DL (14.2-18.0) L Hematocrit 25.9 % (42.0-52.0) L Mean Corpuscular Volume 96 FL (80-99) Mean Corpuscular Hemoglobin 30.6 PG (27.0-31.0) Mean Corpuscular Hemoglobin Concent 32.0 G/DL (32.0-36.0) Red Cell Distribution Width 16.0 % (11.6-14.8) H Platelet Count 311 K/UL (150-450) Mean Platelet Volume 6.8 FL (6.5-10.1) Neutrophils (%) (Auto) 82.7 % (45.0-75.0) H Lymphocytes (%) (Auto) 8.4 % (20.0-45.0) L Monocytes (%) (Auto) 7.3 % (1.0-10.0) Eosinophils (%) (Auto) 1.2 % (0.0-3.0) Basophils (%) (Auto) 0.4 % (0.0-2.0) Erythrocyte Sedimentation Rate 42 MM/HR (0-20) H Sodium Level 141 MMOL/L (136-145) Potassium Level 3.1 MMOL/L (3.5-5.1) L Chloride Level 110 MMOL/L (98-107) H Carbon Dioxide Level 25 MMOL/L (21-32) Anion Gap 6 mmol/L (5-15) Blood Urea Nitrogen 6 mg/dL (7-18) L Creatinine 0.4 MG/DL (0.55-1.30) L Estimat Glomerular Filtration Rate mL/min (>60) Glucose Level 130 MG/DL (74-106) H Calcium Level 6.7 MG/DL (8.5-10.1) L Phosphorus Level 2.6 MG/DL (2.5-4.9) Magnesium Level 1.5 MG/DL (1.8-2.4) L Total Bilirubin 1.0 MG/DL (0.2-1.0) Aspartate Amino Transf (AST/SGOT) 29 U/L (15-37) Alanine Aminotransferase (ALT/SGPT) 15 U/L (12-78) Alkaline Phosphatase 610 U/L (46-116) H C-Reactive Protein, Quantitative 2.5 mg/dL (0.00-0.90) H Total Protein 4.1 G/DL (6.4-8.2) L Albumin 1.2 G/DL (3.4-5.0) L Globulin 2.9 g/dL Albumin/Globulin Ratio 0.4 (1.0-2.7) L Digoxin Level 0.5 NG/ML (0.5-2.0) Current Medications Medications (Trade) Dose Ordered Sig/Pauline Route PRN Reason Start Time Stop Time Status Last Admin Dose Admin Acetaminophen (Tylenol) 650 mg Q4H PRN ORAL T>100.5 12/13/18 07:30 01/12/19 07:29 Albuterol/ Ipratropium (Albuterol/ Ipratropium) 3 ml Q4H PRN HHN Shortness of Breath 12/13/18 07:30 12/18/18 07:29 Cefepime HCl 2 gm/ Dextrose 110 ml @ 220 mls/hr EVERY 12 HOURS IV 12/13/18 15:00 12/20/18 14:59 12/17/18 09:15 Chlorhexidine Gluconate (Marycarmen-Hex 2%) 1 applic DAILY@2000 TOPIC 12/17/18 20:00 01/16/19 19:59 Dextrose (Dextrose 50%) 25 ml Q30M PRN IV Hypoglycemia 12/13/18 07:30 01/12/19 07:29 Dextrose (Dextrose 50%) 50 ml Q30M PRN IV Hypoglycemia 12/13/18 07:30 01/12/19 07:29 Digoxin (Lanoxin) 0.125 mg DAILY GT 12/14/18 09:00 01/13/19 08:59 12/17/18 09:15 Heparin Sodium (Porcine) (Heparin 5000 units/ml) 5,000 units EVERY 12 HOURS SUBQ 12/13/18 09:00 01/12/19 08:59 12/17/18 09:21 Hydrocortisone (Proctosol-HC Cream) 1 applic Q12HR TOPIC 12/13/18 21:00 01/12/19 20:59 12/17/18 09:18 Lactobacillus Acidophilus (Culturelle) 1 tab EVERY 8 HOURS GT 12/15/18 14:00 01/12/19 17:59 12/17/18 13:33 Lansoprazole (Prevacid) 30 mg EVERY 12 HOURS GT 12/16/18 21:00 01/15/19 17:59 12/17/18 09:14 Linezolid (Zyvox) 600 mg Q12HR GT 12/16/18 16:00 12/21/18 15:59 12/17/18 09:15 Magnesium Sulfate 100 ml @ 100 mls/hr Q1H IVPB 12/17/18 13:00 12/17/18 14:59 12/17/18 13:27 Memantine (Namenda) 5 mg DAILY GT 12/18/18 09:00 01/17/19 08:59 Metoprolol Tartrate (Lopressor) 50 mg Q12HR GT 12/16/18 21:00 01/15/19 20:59 12/17/18 09:14 Morphine Sulfate (Morphine Sulfate) 2 mg EVERY 4 HOURS PRN IVP Severe Pain (Pain Scale 7-10) 12/13/18 07:30 12/20/18 07:29 12/16/18 21:19 Ondansetron HCl (Zofran) 4 mg Q6H PRN IVP Nausea & Vomiting 12/13/18 07:30 01/12/19 07:29 Polyethylene Glycol (Miralax) 17 gm DAILYPRN PRN ORAL Constipation 12/13/18 07:30 01/12/19 07:29 Potassium Phosphate 20 mm/ Sodium Chloride 281.6667 ml @ 46.944 m... ONCE ONCE IV 12/17/18 11:15 12/17/18 17:14 12/17/18 12:07 Potassium Chloride 100 ml @ 100 mls/hr Q1HR IVPB 12/17/18 13:00 12/17/18 16:59 12/17/18 13:27 Sodium Hypochlorite (Dakin's Quarter Strength) 1 applic BEDTIME TOPIC 12/15/18 21:00 01/12/19 20:59 12/16/18 20:28 Neva Yee M.D. Dec 17, 2018 14:15
--- NOTE | 2018-12-17 15:20 | Nephrology Progress Note ---
Assessment/Plan Problem List: (1) Electrolyte abnormality (2) SOB (shortness of breath) (3) Anemia Assessment UTI (urinary tract infection) Anemia, chronic disease Alzheimer's dementia Parkinson disease h/o C. difficile colitis Perforated duodenal ulcer Laparatomy Op 12/02/18) other: Pneumonia UTI, h/o bacteremia sacral decub dementia HTN Sz disorder Parkinsons severe Anemia Plan Plan transfuse Trial Albumin for low bp as needed midodrine PRN K and Mag and Phos supplement as needed Transfuse as needed roberto carlos keith RN Subjective ROS Limited/Unobtainable: Yes Objective Objective Last 24 Hour Vital Signs Date Time Temp Pulse Resp B/P (MAP) Pulse Ox O2 Delivery O2 Flow Rate FiO2 12/17/18 12:00 2.0 12/17/18 12:00 98.1 85 20 104/63 (77) 100 12/17/18 09:15 99 12/17/18 09:14 99 143/82 12/17/18 08:46 99 Nasal Cannula 2.0 28 12/17/18 08:00 128 12/17/18 08:00 Nasal Cannula 5.0 12/17/18 08:00 2.0 12/17/18 08:00 98.1 99 18 143/82 (102) 100 12/17/18 05:41 2.0 12/17/18 04:54 64 14 100 Facial 40 12/17/18 04:00 Nasal Cannula 5.0 12/17/18 04:00 40 12/17/18 04:00 98.1 106 15 126/60 (82) 100 12/17/18 03:23 102 12/17/18 03:05 71 15 100 Facial 40 12/17/18 00:49 65 14 100 Facial 40 12/17/18 00:00 98.2 110 15 120/71 (87) 100 12/17/18 00:00 101 12/17/18 00:00 40 12/17/18 00:00 Nasal Cannula 5.0 12/16/18 23:04 63 18 100 Facial 40 12/16/18 20:27 121 140/80 12/16/18 20:00 5.0 12/16/18 20:00 98.1 116 24 140/80 (100) 100 12/16/18 20:00 121 12/16/18 20:00 Nasal Cannula 5.0 12/16/18 19:26 99 Nasal Cannula 3.0 32 12/16/18 16:00 98.1 119 24 155/77 (103) 100 12/16/18 16:00 30 12/16/18 16:00 Nasal Cannula 5.0 12/16/18 15:37 134 Intake and Output 12/16/18 12/17/18 19:00 07:00 Intake Total 1359.3 ml 820 ml Output Total 810 ml 1220 ml Balance 549.3 ml -400 ml Intake Free Water 120 ml IV Total 889.3 ml 110 ml Tube Feeding 410 ml 590 ml Other 60 ml Output Urine Total 750 ml 1000 ml Drainage Total 60 ml 220 ml # Bowel Movements 2 1 Laboratory Tests 12/17/18 04:00: White Blood Count 10.4, Red Blood Count 2.71L, Hemoglobin 8.3L, Hematocrit 25.9L , Mean Corpuscular Volume 96, Mean Corpuscular Hemoglobin 30.6, Mean Corpuscular Hemoglobin Concent 32.0, Red Cell Distribution Width 16.0H, Platelet Count 311, Mean Platelet Volume 6.8, Neutrophils (%) (Auto) 82.7H, Lymphocytes (%) (Auto) 8.4L, Monocytes (%) (Auto) 7.3, Eosinophils (%) (Auto) 1.2, Basophils (%) (Auto) 0.4, Erythrocyte Sedimentation Rate 42H, Sodium Level 141, Potassium Level 3.1L, Chloride Level 110H, Carbon Dioxide Level 25, Anion Gap 6, Blood Urea Nitrogen 6L, Creatinine 0.4L, Estimat Glomerular Filtration Rate , Glucose Level 130H, Calcium Level 6.7L, Phosphorus Level 2.6, Magnesium Level 1.5L, Total Bilirubin 1.0, Aspartate Amino Transf (AST/SGOT) 29, Alanine Aminotransferase (ALT/SGPT) 15, Alkaline Phosphatase 610H, C-Reactive Protein, Quantitative 2.5H, Total Protein 4.1L, Albumin 1.2L, Globulin 2.9, Albumin/ Globulin Ratio 0.4L, Digoxin Level 0.5 Height (Feet): 5 Height (Inches): 5.00 Weight (Pounds): 182 General Appearance: no apparent distress Cardiovascular: tachycardia Respiratory/Chest: decreased breath sounds Abdomen: distended Kendall Trinidad MD Dec 17, 2018 15:20
--- NOTE | 2018-12-17 15:38 | Cardiology Report ---
APPROVED REPORT EKG Measurement Heart [id number] Sinus tachycardia with occasional premature ventricular complexes Left axis deviation Nonspecific ST and T wave abnormality Abnormal ECG
--- NOTE | 2018-12-17 15:46 | Surgery Progress Note ---
Surgery Progress Note Subjective Additional Comments unchanged Objective Last 24 Hour Vital Signs Date Time Temp Pulse Resp B/P (MAP) Pulse Ox O2 Delivery O2 Flow Rate FiO2 12/17/18 12:00 2.0 12/17/18 12:00 98.1 85 20 104/63 (77) 100 12/17/18 09:15 99 12/17/18 09:14 99 143/82 12/17/18 08:46 99 Nasal Cannula 2.0 28 12/17/18 08:00 128 12/17/18 08:00 Nasal Cannula 5.0 12/17/18 08:00 2.0 12/17/18 08:00 98.1 99 18 143/82 (102) 100 12/17/18 05:41 2.0 12/17/18 04:54 64 14 100 Facial 40 12/17/18 04:00 Nasal Cannula 5.0 12/17/18 04:00 40 12/17/18 04:00 98.1 106 15 126/60 (82) 100 12/17/18 03:23 102 12/17/18 03:05 71 15 100 Facial 40 12/17/18 00:49 65 14 100 Facial 40 12/17/18 00:00 98.2 110 15 120/71 (87) 100 12/17/18 00:00 101 12/17/18 00:00 40 12/17/18 00:00 Nasal Cannula 5.0 12/16/18 23:04 63 18 100 Facial 40 12/16/18 20:27 121 140/80 12/16/18 20:00 5.0 12/16/18 20:00 98.1 116 24 140/80 (100) 100 12/16/18 20:00 121 12/16/18 20:00 Nasal Cannula 5.0 12/16/18 19:26 99 Nasal Cannula 3.0 32 12/16/18 16:00 98.1 119 24 155/77 (103) 100 12/16/18 16:00 30 12/16/18 16:00 Nasal Cannula 5.0 I&O Intake and Output 12/16/18 12/17/18 19:00 07:00 Intake Total 1359.3 ml 820 ml Output Total 810 ml 1220 ml Balance 549.3 ml -400 ml Intake Free Water 120 ml IV Total 889.3 ml 110 ml Tube Feeding 410 ml 590 ml Other 60 ml Output Urine Total 750 ml 1000 ml Drainage Total 60 ml 220 ml # Bowel Movements 2 1 Dressing: other Wound: other Drains: other Cardiovascular: RSR Respiratory: decreased breath sounds Abdomen: soft, present bowel sounds, other Extremities: no cyanosis Laboratory Tests Test 12/17/18 04:00 White Blood Count 10.4 K/UL (4.8-10.8) Red Blood Count 2.71 M/UL (4.70-6.10) L Hemoglobin 8.3 G/DL (14.2-18.0) L Hematocrit 25.9 % (42.0-52.0) L Mean Corpuscular Volume 96 FL (80-99) Mean Corpuscular Hemoglobin 30.6 PG (27.0-31.0) Mean Corpuscular Hemoglobin Concent 32.0 G/DL (32.0-36.0) Red Cell Distribution Width 16.0 % (11.6-14.8) H Platelet Count 311 K/UL (150-450) Mean Platelet Volume 6.8 FL (6.5-10.1) Neutrophils (%) (Auto) 82.7 % (45.0-75.0) H Lymphocytes (%) (Auto) 8.4 % (20.0-45.0) L Monocytes (%) (Auto) 7.3 % (1.0-10.0) Eosinophils (%) (Auto) 1.2 % (0.0-3.0) Basophils (%) (Auto) 0.4 % (0.0-2.0) Erythrocyte Sedimentation Rate 42 MM/HR (0-20) H Sodium Level 141 MMOL/L (136-145) Potassium Level 3.1 MMOL/L (3.5-5.1) L Chloride Level 110 MMOL/L (98-107) H Carbon Dioxide Level 25 MMOL/L (21-32) Anion Gap 6 mmol/L (5-15) Blood Urea Nitrogen 6 mg/dL (7-18) L Creatinine 0.4 MG/DL (0.55-1.30) L Estimat Glomerular Filtration Rate mL/min (>60) Glucose Level 130 MG/DL (74-106) H Calcium Level 6.7 MG/DL (8.5-10.1) L Phosphorus Level 2.6 MG/DL (2.5-4.9) Magnesium Level 1.5 MG/DL (1.8-2.4) L Total Bilirubin 1.0 MG/DL (0.2-1.0) Aspartate Amino Transf (AST/SGOT) 29 U/L (15-37) Alanine Aminotransferase (ALT/SGPT) 15 U/L (12-78) Alkaline Phosphatase 610 U/L (46-116) H C-Reactive Protein, Quantitative 2.5 mg/dL (0.00-0.90) H Total Protein 4.1 G/DL (6.4-8.2) L Albumin 1.2 G/DL (3.4-5.0) L Globulin 2.9 g/dL Albumin/Globulin Ratio 0.4 (1.0-2.7) L Digoxin Level 0.5 NG/ML (0.5-2.0) Plan Problems: (1) Duodenal ulcer hemorrhage Assessment & Plan: 73-year-old male well-known to me from recent surgery. Patient was admitted prior with GI bleed identified to have a actively bleeding duodenal ulcer status post expiratory laparotomy. Please refer to prior operative note for details. Patient was recently discharged to [facility] for the continued care but returned with altered status and a respiratory distress. Patient readmitted and placed on BiPAP. Since her respiratory distress has improved and is now on facemask. On admission patient with leukocytosis 16,000 which is resolved now. Electrolyte abnormal. Surgery called for continued postoperative care while inpatient. -elizabeth drain care / management will need to leave drain in for some time now as patient likely developed duodenal leak that is contained -abd exam stable labs improved cont with abx as per ID will follow with Andrew Dwyer Dec 17, 2018 15:46
[2018-12-17 16:00] VITALS: BP 122/80
--- NOTE | 2018-12-17 19:15 | NUR ---
HAND-OFF: Report given to . BIJAN DUNN.
--- NOTE | 2018-12-17 19:20 | NUR ---
NURSE NOTES: BEDSIDE REPORT RECEIVED FROM MONA HENRIQUEZ. PT IS NONVERBAL AT THIS TIME, TRACKS WITH EYES, UNABLE TO MAKE NEEDS KNOWN. CNP SHOWING NSR. 2LNC SATING WELL. VITAL 1.2 @ 50, TOLERATING WELL, NO RESIDUAL. HOWEVER, EPISODE OF LOOSE STOOL TODAY, NUTRITION RECOMMENDS KEEPING @ 50 INSTEAD OF GOAL 60. WILL CONTINUE TO MONITOR. SKIN IS CLEAN, DRY, DRESSINGS INTACT. ANGIE DRAINING GREENISH COLOR. R SUBCLAVIAN TLC, ASYMPTOMATIC 2/3. LABS OK, RN GAVE MG, K, PO4 DURING AM SHIFT; LABS IN AM, SEE EMAR. SAFETY PRECAUTIONS CONTINUED. WILL CONTINUE TO MONITOR AND FOLLOW W/ PLAN OF CARE.
[2018-12-17 20:00] VITALS: BP 111/65
[2018-12-17] MEDS ORDERED: Dyna-Hex 2% Top Sol 2oz TOPIC SCH (20:00)
[2018-12-17] MEDS ORDERED: Dakin's 0.125% Soln (Quarter Strength) 16oz TOPIC SCH (21:00)
[2018-12-17] MEDS ORDERED: Miralax 17gm pkt ORAL PRN (21:30)
[2018-12-17] MEDS ORDERED: Albuterol/Ipratropium 3ml neb HHN PRN (21:30)
[2018-12-17] MEDS ORDERED: Morphine Sulfate 2mg/ml Inj(IV/IM USE ONLY) IVP PRN (21:30)
--- NOTE | 2018-12-17 22:43 | NUR ---
RESPIRATORY NOTE: Pt placed on BiPAP for nightly use. Pt on BiPAP 10/5, backup rate 14, 30%. Pt on a Full Face Mask, skin intact, no redness/breakdowns noted. Foam tape applied on pt's forehead/cheeks to prevent any irritations. Pt awake/disoriented. B/S hoang. rales, nonproductive cough. BiPAP plugged into red outlet, alarms on & audible. Pt in no apparent distress at this time. Will continue plan of care.
--- NOTE | 2018-12-17 23:00 | Progress Note ---
DATE: 12/17/2018 HISTORY OF PRESENT ILLNESS: This is a 73-year-old male patient with shortness of breath. He is very confused and disorganized. He has no logical plan for his own self-care. He has some confusion, some disorganized thought process, and mood lability worsened by the stress of his medical illness and that is why he does require inpatient treatment at this time. He came in because of shortness of breath, but he still has some altered mental status and confusion worsened by the stress of his medical illness. As far as the patient's , he does have some confusion, and some disorganized thought process and some decline in cognition below his baseline. MENTAL STATUS EXAMINATION: A 73-year-old male. Appearance is disheveled. Attitude, irritable and agitated. Affect, guarded and restricted. Intellect poor. Mood, depressed and anxious. Motor activity, psychomotor agitation. Attention span is poor. Orientation x2. Speech is low volume and slurred. Thought process is disorganized and illogical. Insight and judgment is poor. DIAGNOSIS: Major depressive disorder, mild and recurrent with psychosis, rule out dementia with psychosis. PLAN: Treat this patient with a medication regimen of Namenda at a dose of 5 mg twice a day, and provided him with 20 minutes of insight-oriented psychotherapy to help him have insight into his behaviors so he has better impulse control on the unit. He will be continued to be followed by Psychiatry throughout this hospital course. The reason why insight-oriented psychotherapy is to provide insight into the medical and psychiatric condition and for better impulse control on the unit. Chart reviewed. Discussed with staff. Seen and assessed in his room. Laith Mason M.D. DR: JOVANNY JOB#: [id number] CC:
[2018-12-18] VITALS: BP 121/60
[2018-12-18 04:00] VITALS: BP 130/77
[2018-12-18] MEDS: Lactobacillus-GG tablet GT SCH ×2 (05:17→14:45)
[2018-12-18 05:25] LABS: BASOPHILS % (AUTO) 0.7 % (0.0-2.0); EOSINOPHILS % (AUTO) 1.9 % (0.0-3.0); HEMATOCRIT 25.8 % (42.0-52.0); HEMOGLOBIN 8.2 G/DL (14.2-18.0); LYMPHOCYTES % (AUTO) 11.7 % (20.0-45.0); MEAN CORPUSCULAR VOLUME 97 FL (80-99); MONOCYTES % (AUTO) 7.7 % (1.0-10.0); NEUTROPHILS % (AUTO) 78.1 % (45.0-75.0); PLATELET COUNT 317 K/UL (150-450); RED BLOOD COUNT 2.65 M/UL (4.70-6.10); WHITE BLOOD COUNT 10.5 K/UL (4.8-10.8)
[2018-12-18 06:03] LABS: ALANINE AMINOTRANSFERASE 19 U/L (12-78); ALBUMIN 1.2 G/DL (3.4-5.0); ALBUMIN/GLOBULIN RATIO 0.4 (1.0-2.7); ALKALINE PHOSPHATASE 753 U/L (46-116); ANION GAP 6 mmol/L (5-15); ASPARTATE AMINO TRANSFERASE 34 U/L (15-37); BILIRUBIN,TOTAL 0.9 MG/DL (0.2-1.0); BLOOD UREA NITROGEN 10 mg/dL (7-18); CALCIUM 7.3 MG/DL (8.5-10.1); CARBON DIOXIDE 25 MMOL/L (21-32); CHLORIDE 106 MMOL/L (98-107); CREATININE 0.5 MG/DL (0.55-1.30); PHOSPHORUS 2.1 MG/DL (2.5-4.9); SODIUM 137 MMOL/L (136-145)
--- NOTE | 2018-12-18 07:29 | NUR ---
HAND-OFF: Report given to MONA BARTON.
--- NOTE | 2018-12-18 07:30 | NUR ---
NURSE NOTES: Received report from Solomon Mayberry RN. Patient awake, tracks with eyes but unable to follow commands, nonverbal, unable to make needs known. Receiving O2 via nasal cannula @ 5 L/min, saturating at 99%. GT feeding of Vital AF 1.2 running @ 60 cc/hr, no residuals noted. HoB elevated. Bradley catheter patent and draining well. ANGIE drain noted on RLQ with negative pressure, noted with dark green output. Right subclavian TLC asymptomatic, dressing clean and dry. Bed locked in lowest position with padded side rails up x 3. All needs attended to. Call light within reach. Will continue to monitor.
[2018-12-18 08:00] VITALS: BP 142/76
[2018-12-18] MEDS ORDERED: Digoxin 0.125mg tab GT SCH (09:00)
[2018-12-18] MEDS ORDERED: Memantine 5 MG TAB GT SCH ×2 (09:00)
[2018-12-18] MEDS: Metoprolol Tartrate 50mg tab GT SCH (09:20)
[2018-12-18] MEDS: Hydrocortisone 2.5% Cream - 30gm TOPIC SCH (09:22)
[2018-12-18] MEDS: Cefepime HCl 2 GM in D5W 110 ML IV SCH (09:25)
[2018-12-18] MEDS: Heparin 5000 units/ml inj SUBQ SCH (09:27)
--- NOTE | 2018-12-18 09:53 | General Progress Note ---
Assessment/Plan Status: unchanged Assessment/Plan: # Anemia due to GI Bleed, other causes exist, multifactorial, is s/p lap site, egd done --> Anemia workup has been reviewed, FERRITIN 831 --> No evidence of hemolysis is noted, peripheral smear has been reviewed. --> Hgb goal >7. Transfuse prn. --> Epogen or iron at this time is not particularly indicated --> Medications have been reviewed --> low threshold for gi evaluation in case has occult +--> endoscopy and colo pending --> hgb trend: 7.4-->9.0-->9-->8.6->8.5-->7.5->7.1-->8.3 --> Blood tx: 1 unit 11/19, 11/27, 12/02, 12/15 --> S/P EGD Anterior duodenostomy for control of large posterior duodenal ulcer hemorrhage by Dr Eugene on 12/02/18 # Acute right leg DVT and left leg DVT (recanalized). Heparin drip DCed for rectal bleed. s/p IVC FILTER 11/23/18 --> upper arm DVTs noted as well (right and left leg dvt) --> agree with need for this given coagulant contraindication --> appreciate gi and pulm/cc recs --> have discontinued eliquis given acute GI bleed on 11/27/18, ON HOLD --> consider restart eliquis once h/h remains stable # Leukocytosis due to sepsis. --> currently improved --> urine, sputum, sacral, and blood cultures are positive, mrsa positive --> IV abx per id --> trend wbc 11.6--> 16-->8-->9.9-->16-->9.9-->10.4 # Thrombocytopenia likely related to infection --> trend plt 111k-->129k-->148k-->174k-->200k-->252k-->239-->300 --> likely was related to infection --> meds reviewed # Sinus tach due to anemia and sepsis and beta danya withdrawal as was on Metoprolol 12.5 bid at [facility] --> per cards recs # Hypertension. Hold Metoprolol as BP is 90s. --> clonidine per cards prn # Respiratory failure now extubated --> but on bipap+ and nc The timing of this note does not necessarily reflect the time of the patient was seen. GREATLY APPRECIATE CONSULTATION. Subjective HEENT: Denies: no symptoms, eye pain, blurred vision, tearing, double vision, ear pain, ear discharge, nose pain, nose congestion, throat pain, throat swelling, mouth pain, mouth swelling, other Cardiovascular: Denies: no symptoms, chest pain, edema, irregular heart rate, lightheadedness, palpitations, syncope, other Respiratory: Denies: no symptoms, cough, orthopnea, shortness of breath, SOB with excertion, SOB at rest, sputum, stridor, wheezing, other Gastrointestinal/Abdominal: Denies: no symptoms, abdomen distended, abdominal pain, black stools, tarry stools, blood in stool, constipated, diarrhea, difficulty swallowing, nausea, poor appetite, poor fluid intake, rectal bleeding , vomiting, other Genitourinary: Denies: no symptoms, burning, discharge, frequency, flank pain, hematuria, incontinence, pain, urgency, other Neurologic/Psychiatric: Denies: no symptoms, anxiety, depressed, emotional problems, headache, numbness, paresthesia, pre-existing deficit, seizure, tingling, tremors, weakness, other Endocrine: Denies: no symptoms, excessive sweating, flushing, intolerance to cold, intolerance to heat, increased hunger, increased thirst, increased urine, unexplained weight gain, unexplained weight loss, other Hematologic/Lymphatic: Reports: no symptoms Allergies: Coded Allergies: No Known Allergies (Unverified , 11/18/18) Subjective 12/14: cxr today shows Mild to moderate interstitial edema and left pleural effusion, venous duplex ordered, hgb at 7.5, repeat cbc tomorrow morning 12/15: one unit prbc was ordered today, duplex showed dvt in all 4 upper and lower ext 12/16: no fevers or chills, no bleeding 12/17: gtube feeds ongoing, no fevers or chills noted, gtube feeds ongoing, elizabeth drain rlq 12/18: labs have been reviewed, cbc is stable, no f/c, remains on abx at this time Objective Last 24 Hour Vital Signs Date Time Temp Pulse Resp B/P (MAP) Pulse Ox O2 Delivery O2 Flow Rate FiO2 12/18/18 09:22 101 12/18/18 09:20 101 142/76 12/18/18 08:00 98.7 111 20 142/76 (98) 100 12/18/18 07:44 110 12/18/18 07:00 99 Nasal Cannula 2.0 28 12/18/18 04:53 72 16 100 Full Face 30 12/18/18 04:00 30 12/18/18 04:00 98.7 81 18 130/77 (94) 99 12/18/18 04:00 Bi-pap 12/18/18 04:00 106 12/18/18 03:33 90 23 99 Full Face 30 12/18/18 00:55 79 23 100 Bi-Pap 30 12/18/18 00:55 79 23 100 Full Face 30 12/18/18 00:00 30 12/18/18 00:00 83 12/18/18 00:00 Bi-pap 12/18/18 00:00 98.8 63 18 121/60 (80) 99 12/17/18 22:40 90 20 100 Full Face 30 12/17/18 21:49 101 111/65 12/17/18 20:00 2.0 12/17/18 20:00 98.6 80 24 111/65 (80) 98 12/17/18 20:00 Nasal Cannula 2.0 12/17/18 20:00 101 12/17/18 18:59 99 Nasal Cannula 2.0 28 12/17/18 16:00 88 12/17/18 16:00 2.0 12/17/18 16:00 Nasal Cannula 5.0 12/17/18 16:00 97.7 99 20 122/80 (94) 100 12/17/18 12:00 2.0 12/17/18 12:00 98.1 85 20 104/63 (77) 100 12/17/18 12:00 88 12/17/18 12:00 Nasal Cannula 5.0 Intake and Output 12/17/18 12/18/18 19:00 07:00 Intake Total 1941.664 ml 840 ml Output Total 140 ml 1580 ml Balance 1801.664 ml -740 ml Intake Free Water 250 ml 180 ml IV Total 1091.664 ml 110 ml Tube Feeding 600 ml 550 ml Output Urine Total 1500 ml Drainage Total 140 ml 80 ml # Bowel Movements 1 2 Laboratory Tests 12/18/18 05:00: White Blood Count 10.5, Red Blood Count 2.65L, Hemoglobin 8.2L, Hematocrit 25.8L , Mean Corpuscular Volume 97, Mean Corpuscular Hemoglobin 31.1H, Mean Corpuscular Hemoglobin Concent 32.0, Red Cell Distribution Width 16.0H, Platelet Count 317, Mean Platelet Volume 6.4L, Neutrophils (%) (Auto) 78.1H, Lymphocytes (%) (Auto) 11.7L, Monocytes (%) (Auto) 7.7, Eosinophils (%) (Auto) 1.9, Basophils (%) (Auto) 0.7, Erythrocyte Sedimentation Rate 64H, Sodium Level 137, Potassium Level 4.0, Chloride Level 106, Carbon Dioxide Level 25, Anion Gap 6, Blood Urea Nitrogen 10, Creatinine 0.5L, Estimat Glomerular Filtration Rate , Glucose Level 124H, Calcium Level 7.3L, Phosphorus Level 2.1L, Magnesium Level 1.9, Total Bilirubin 0.9, Aspartate Amino Transf (AST/SGOT) 34, Alanine Aminotransferase (ALT/SGPT) 19, Alkaline Phosphatase 753H, C-Reactive Protein, Quantitative 1.8H, Total Protein 4.4L, Albumin 1.2L, Globulin 3.2, Albumin/ Globulin Ratio 0.4L Height (Feet): 5 Height (Inches): 5.00 Weight (Pounds): 182 Objective PHYSICAL EXAM General Appearance: WD/WN Lines, tubes and drains: central line HEENT: normocephalic, atraumatic Neck: non-tender, normal alignment Breasts: no masses Cardiovascular/Chest: normal peripheral pulses, normal rate, regular rhythm ++ bipap Abdomen: normal bowel sounds, non tender ++ peg Genitourinary/Rectal: normal genital exam, heme negative stool Extremities: normal range of motion Skin Exam: elizabeth drain rlq++ Neurologic: return to service inspector II-XII grossly normal Avery Giang MD Dec 18, 2018 09:53
--- NOTE | 2018-12-18 10:04 | NUR ---
RD ASSESSMENT & RECOMMENDATIONS SEE CARE ACTIVITY FOR COMPLETE ASSESSMENT DAILY ESTIMATED NEEDS: Needs based on Wounds, Pulmonary, sepsis, 60.5kg 25-35 kcals/kg 4325-5728 total kcals 1.25-2 g protein/kg 76-121 g total protein 25-30 mL/kg 4946-3402 total fluid mLs NUTRITION DIAGNOSIS: 1) Increased kcal and pro needs r/t wound healing as evidenced by non-blanchable erythema at R elbow, full thickness sacral pressure injury, r lateral malleolus maroon with fluctuance as per recent admission WC eval, new eval is pending. 2) Swallowing difficulty R/T dysphagia as evidenced by pt PEG dep. CURRENT TF: Vital 1.2 @60-> now @50ml ENTERAL NUTRITION RECOMMENDATIONS: Vital AF 1.2 @ 60ml/hr x24 hrs to provide 1440ml, 1728 kcal, 108g pro, 1168ml free H2O - Rec Vital AF for GI tolerance: s/p recent ex lap, duodenotomy - As able w/ improved GI symptoms, advance slowly by 5ml q 4-6 hrs to goal rate of 60ml/hr - Flush per MD/ HOB over 30 degrees ----- ADDITIONAL RECOMMENDATIONS: 1) Per SNF record in October 2018: 5'6" ht, 133 lbs wt -> pt currently edematous + on P200 mattress 2) Wound care: Add YOLI BID via GT + VIT C 250mg BID 3) Monitor BGs, consider hypoglycemics prn/ niss 4) Monitor lytes, replete as needed 5) Monitor TF tolerance closely, consider prokinetics w/ residuals - Reglan was added on 12/12 prior to DC, now off the medlist post readm
--- NOTE | 2018-12-18 10:16 | Infectious Diseases Prog Note ---
Assessment/Plan Assessment/Plan Acute respiratory failure, recurrent 12/13 , on bipap- r/o recurent pNA -CXR: Pulmonary edema versus infiltrates. Study is currently limited as obtained. Suspect a left pleural effusion -sp cx: Citrobacter diversus (R ancef, Ceftazidime, Ceftriaxone, Gentamycin, Bactrim), diptheroids, Citrobacter #2 (R Ancef, Gentamycin, Bactrim) Afebrile Leukocytosis; recurrent- resolved -u/a no pyuria, nit +, leuk +1; ucx 10-20k Pseudomonas fluorecens- R cipro/ Levo; I Genta (colonzier) -Bcx NTD Gram positiev bacteremia- likely contaminant -12/13 Bcx / CONS; 12/16 BCx NTD VDRF, s/p extubation 12/08 Recet GIB- 2ry to actively bleeding Duodenal ulcer -12/02 SP exploratory laparotomy. Anterior duodenotomy for control of large posterior duodenal ulcer hemorrhage. closure of duodenotomy. pyloric exclusion with gastrojejunostomy abdominal washout. abdominal drain placement -12/02 SP EGD Recent Shock likely hemorrhagic and septic component -12/04 CXR: Suggestion of a slightly worsening vascular congestion -12/03 u/a neg, ucx Neg Bcx Neg -12/02 CXR: Slightly increased bilateral infiltrates Diarrhea CDiff +, sp rx GI bleed 11/29 Colonscopy : Diverticulosis Recent Sepsis -11/30 CT abd/p: Nonspecific trace free intraperitoneal fluid. No acute abdominal or pelvic process otherwise. Fairly extensive bilateral basilar pulmonary parenchymal consolidation and atelectasis. Bilateral small pleural effusions. Colonic diverticulosis. No evidence of diverticulitis. Gastrostomy. Nonobstructive 3 mm left intrarenal calyceal calculus. Prostatomegaly. Edema of the bilateral left greater than right subcutaneous fat. Fairly extensive chronic appearing bilateral hip degenerative changes, with bilateral joint effusions versus chronic synovial proliferation. Inferior vena cava filter -11/28 BCx Neg u/a no pyuria ucx Neg Pneumonia -12/07 CXR: Patchy airspace disease noted in the perihilar basilar regions. There may be a small left pleural effusion now present -12/03 Sp cx Citrobacter diversus (R Genta,Ancef, Bactrim); MDR P. stuarti ( S Amikacin) -CXR: Patchy bilateral infiltrates versus mixed interstitial alveolar edema noted. -sp cx MRSA, MDR P. stuarti (S Amikacin, Zosyn ; I cefepime; S ertapenem) MRSA bacteremia- suspect 2ry to PNA- ,sp Rx -11/18 Bcx 2/4 MRSA , 1/4 S. capitis, Diptheroids (these 2 are contaminants); BCx Neg -2d Echo:limited study (no vegetations) Probable UTI, sp Rx -u/a wbc 10-15, nit neg, leuk +2; ucx MDR ABC (S bactrim, gentamicin) Sacral decubitus ulcer, necrotic, surrounding cellulitis -12/13 wound cx: Citrobacter diversus (R Ancef, Gentamycin, Bactrim), VRE dementia HTN CKD COPD dysphagia s/p Gtube feeding Parkinson disease seizure disorder multiple decubiti wounds intermediate resident Plan: -Continue Cefepime #12/03 for Citrobacter PNA -Linezolid #3 (abx #12/03) for gram positive bacteremia and VRE wound -monitor Platelets -12/16 SP IV Vancomycin #5 -12/15 SP empiric IV Vancomycin #4, IV Flagyl #12 and IV Amikacin #8 -/ SP IV Vancomycin #22 -12/03 SP PO Vancomycin #5 (held as pt now is NPO) -12/02 SP Flagyl #4 -/ SP Zosyn #8 -/ SP Bactrim #7 -11/23 SP Cefepime #6 -11/18 SP Levaquin x1 -f/u cx -Monitor CBC/CMP, temperatures -GT care -aspiration precautions -wound care per surgical team -f/u repeat Bx x2 Subjective Allergies: Coded Allergies: No Known Allergies (Unverified , 11/18/18) Subjective afebrile no leukocytosis repeat Bc NTD Objective Vital Signs Last 24 Hour Vital Signs Date Time Temp Pulse Resp B/P (MAP) Pulse Ox O2 Delivery O2 Flow Rate FiO2 12/18/18 09:22 101 12/18/18 09:20 101 142/76 12/18/18 08:00 98.7 111 20 142/76 (98) 100 12/18/18 08:00 5.0 12/18/18 07:44 110 12/18/18 07:00 99 Nasal Cannula 2.0 28 12/18/18 04:53 72 16 100 Full Face 30 12/18/18 04:00 30 12/18/18 04:00 98.7 81 18 130/77 (94) 99 12/18/18 04:00 Bi-pap 12/18/18 04:00 106 12/18/18 03:33 90 23 99 Full Face 30 12/18/18 00:55 79 23 100 Bi-Pap 30 12/18/18 00:55 79 23 100 Full Face 30 12/18/18 00:00 30 12/18/18 00:00 83 12/18/18 00:00 Bi-pap 12/18/18 00:00 98.8 63 18 121/60 (80) 99 12/17/18 22:40 90 20 100 Full Face 30 12/17/18 21:49 101 111/65 12/17/18 20:00 2.0 12/17/18 20:00 98.6 80 24 111/65 (80) 98 12/17/18 20:00 Nasal Cannula 2.0 12/17/18 20:00 101 12/17/18 18:59 99 Nasal Cannula 2.0 28 12/17/18 16:00 88 12/17/18 16:00 2.0 12/17/18 16:00 Nasal Cannula 5.0 12/17/18 16:00 97.7 99 20 122/80 (94) 100 12/17/18 12:00 2.0 12/17/18 12:00 98.1 85 20 104/63 (77) 100 12/17/18 12:00 88 12/17/18 12:00 Nasal Cannula 5.0 Height (Feet): 5 Height (Inches): 5.00 Weight (Pounds): 182 Objective GENERAL: O2 mask in place, sleeping in bed, nonverbal. CARDIOVASCULAR: No murmur. LUNGS: Poor air exchange. ABDOMEN: Bowel sounds distant. EXTREMITIES: No cyanosis, clubbing, or edema. NEUROLOGIC: The patient is flaccid in bed, not following directions. Microbiology Date/Time Source Procedure Growth Status 12/16/18 13:35 Blood Blood Culture - Preliminary NO GROWTH AFTER 24 HOURS Resulted 12/16/18 12:40 Blood Blood Culture - Preliminary NO GROWTH AFTER 24 HOURS Resulted Laboratory Tests Test 7/25/19 05:00 White Blood Count 10.5 K/UL (4.8-10.8) Red Blood Count 2.65 M/UL (4.70-6.10) L Hemoglobin 8.2 G/DL (14.2-18.0) L Hematocrit 25.8 % (42.0-52.0) L Mean Corpuscular Volume 97 FL (80-99) Mean Corpuscular Hemoglobin 31.1 PG (27.0-31.0) H Mean Corpuscular Hemoglobin Concent 32.0 G/DL (32.0-36.0) Red Cell Distribution Width 16.0 % (11.6-14.8) H Platelet Count 317 K/UL (150-450) Mean Platelet Volume 6.4 FL (6.5-10.1) L Neutrophils (%) (Auto) 78.1 % (45.0-75.0) H Lymphocytes (%) (Auto) 11.7 % (20.0-45.0) L Monocytes (%) (Auto) 7.7 % (1.0-10.0) Eosinophils (%) (Auto) 1.9 % (0.0-3.0) Basophils (%) (Auto) 0.7 % (0.0-2.0) Erythrocyte Sedimentation Rate 64 MM/HR (0-20) H Sodium Level 137 MMOL/L (136-145) Potassium Level 4.0 MMOL/L (3.5-5.1) Chloride Level 106 MMOL/L (98-107) Carbon Dioxide Level 25 MMOL/L (21-32) Anion Gap 6 mmol/L (5-15) Blood Urea Nitrogen 10 mg/dL (7-18) Creatinine 0.5 MG/DL (0.55-1.30) L Estimat Glomerular Filtration Rate mL/min (>60) Glucose Level 124 MG/DL (74-106) H Calcium Level 7.3 MG/DL (8.5-10.1) L Phosphorus Level 2.1 MG/DL (2.5-4.9) L Magnesium Level 1.9 MG/DL (1.8-2.4) Total Bilirubin 0.9 MG/DL (0.2-1.0) Aspartate Amino Transf (AST/SGOT) 34 U/L (15-37) Alanine Aminotransferase (ALT/SGPT) 19 U/L (12-78) Alkaline Phosphatase 753 U/L (46-116) H C-Reactive Protein, Quantitative 1.8 mg/dL (0.00-0.90) H Total Protein 4.4 G/DL (6.4-8.2) L Albumin 1.2 G/DL (3.4-5.0) L Globulin 3.2 g/dL Albumin/Globulin Ratio 0.4 (1.0-2.7) L Current Medications Medications (Trade) Dose Ordered Sig/Pauline Route PRN Reason Start Time Stop Time Status Last Admin Dose Admin Acetaminophen (Tylenol) 650 mg Q4H PRN ORAL T>100.5 12/17/18 21:30 01/12/19 21:29 Albuterol/ Ipratropium (Albuterol/ Ipratropium) 3 ml Q4H PRN HHN Shortness of Breath 12/17/18 21:30 12/18/18 21:29 Cefepime HCl 2 gm/ Dextrose 110 ml @ 220 mls/hr EVERY 12 HOURS IV 12/17/18 21:00 12/24/18 20:59 12/18/18 09:25 Chlorhexidine Gluconate (Marycarmen-Hex 2%) 1 applic DAILY@2000 TOPIC 12/18/18 20:00 01/16/19 19:59 Dextrose (Dextrose 50%) 25 ml Q30M PRN IV Hypoglycemia 12/17/18 21:30 01/12/19 07:29 Dextrose (Dextrose 50%) 50 ml Q30M PRN IV Hypoglycemia 12/17/18 21:30 01/12/19 07:29 Digoxin (Lanoxin) 0.125 mg DAILY GT 12/18/18 09:00 01/13/19 08:59 12/18/18 09:22 Heparin Sodium (Porcine) (Heparin 5000 units/ml) 5,000 units EVERY 12 HOURS SUBQ 12/17/18 21:00 01/16/19 20:59 12/18/18 09:27 Hydrocortisone (Proctosol-HC Cream) 1 applic Q12HR TOPIC 12/17/18 21:00 01/16/19 20:59 12/18/18 09:22 Lactobacillus Acidophilus (Culturelle) 1 tab EVERY 8 HOURS GT 12/17/18 22:00 01/12/19 17:59 12/18/18 05:17 Lansoprazole (Prevacid) 30 mg EVERY 12 HOURS GT 12/17/18 21:00 01/16/19 20:59 12/18/18 09:21 Linezolid (Zyvox) 600 mg Q12HR GT 12/17/18 21:00 12/22/18 20:59 12/18/18 09:21 Memantine (Namenda) 5 mg DAILY GT 12/18/18 09:00 01/17/19 08:59 12/18/18 09:21 Metoprolol Tartrate (Lopressor) 50 mg Q12HR GT 12/17/18 21:00 01/16/19 20:59 12/18/18 09:20 Morphine Sulfate (Morphine Sulfate) 2 mg Q4H PRN IVP Severe Pain (Pain Scale 7-10) 12/17/18 21:30 12/24/18 21:29 Ondansetron HCl (Zofran) 4 mg Q6H PRN IVP Nausea & Vomiting 12/17/18 21:30 01/16/19 21:29 Polyethylene Glycol (Miralax) 17 gm DAILYPRN PRN ORAL Constipation 12/17/18 21:30 01/16/19 21:29 Sodium Hypochlorite (Dakin's Quarter Strength) 1 applic BEDTIME TOPIC 12/17/18 21:00 01/16/19 20:59 12/17/18 21:50 Neva Yee M.D. Dec 18, 2018 10:16
--- NOTE | 2018-12-18 10:27 | Pulmonology Progress Note ---
Assessment/Plan Problems: (1) Acute respiratory failure (2) C. difficile colitis (3) COPD (chronic obstructive pulmonary disease) (4) Acute DVT (deep venous thrombosis) (5) S/P insertion of IVC (inferior vena caval) filter (6) Severe protein-calorie malnutrition (7) Feeding by G-tube (8) Alzheimer's dementia (9) Parkinson disease (10) Status post exploratory laparotomy Assessment/Plan afebrile, doing better cxr unchanged iv abx check cultures electrolytes supplement check H/h s/p ivc Subjective ROS Limited/Unobtainable: No Constitutional: Reports: no symptoms HEENT: Repors: no symptoms Respiratory: Reports: no symptoms Allergies: Coded Allergies: No Known Allergies (Unverified , 11/18/18) Objective Last 24 Hour Vital Signs Date Time Temp Pulse Resp B/P (MAP) Pulse Ox O2 Delivery O2 Flow Rate FiO2 12/18/18 09:22 101 12/18/18 09:20 101 142/76 12/18/18 08:00 98.7 111 20 142/76 (98) 100 12/18/18 08:00 5.0 12/18/18 07:44 110 12/18/18 07:00 99 Nasal Cannula 2.0 28 12/18/18 04:53 72 16 100 Full Face 30 12/18/18 04:00 30 12/18/18 04:00 98.7 81 18 130/77 (94) 99 12/18/18 04:00 Bi-pap 12/18/18 04:00 106 12/18/18 03:33 90 23 99 Full Face 30 12/18/18 00:55 79 23 100 Bi-Pap 30 12/18/18 00:55 79 23 100 Full Face 30 12/18/18 00:00 30 12/18/18 00:00 83 12/18/18 00:00 Bi-pap 12/18/18 00:00 98.8 63 18 121/60 (80) 99 12/17/18 22:40 90 20 100 Full Face 30 12/17/18 21:49 101 111/65 12/17/18 20:00 2.0 12/17/18 20:00 98.6 80 24 111/65 (80) 98 12/17/18 20:00 Nasal Cannula 2.0 12/17/18 20:00 101 12/17/18 18:59 99 Nasal Cannula 2.0 28 12/17/18 16:00 88 12/17/18 16:00 2.0 12/17/18 16:00 Nasal Cannula 5.0 12/17/18 16:00 97.7 99 20 122/80 (94) 100 12/17/18 12:00 2.0 12/17/18 12:00 98.1 85 20 104/63 (77) 100 12/17/18 12:00 88 12/17/18 12:00 Nasal Cannula 5.0 Intake and Output 12/17/18 12/18/18 19:00 07:00 Intake Total 1941.664 ml 840 ml Output Total 140 ml 1580 ml Balance 1801.664 ml -740 ml Intake Free Water 250 ml 180 ml IV Total 1091.664 ml 110 ml Tube Feeding 600 ml 550 ml Output Urine Total 1500 ml Drainage Total 140 ml 80 ml # Bowel Movements 1 2 General Appearance: WD/WN HEENT: normocephalic, atraumatic Respiratory/Chest: chest wall non-tender, lungs clear Cardiovascular: normal peripheral pulses, normal rate Abdomen: normal bowel sounds, no organomegaly Genitourinary: normal external genitalia Extremities: no cyanosis, other - bilateral edema Microbiology Date/Time Source Procedure Growth Status 12/16/18 13:35 Blood Blood Culture - Preliminary NO GROWTH AFTER 24 HOURS Resulted 12/16/18 12:40 Blood Blood Culture - Preliminary NO GROWTH AFTER 24 HOURS Resulted Laboratory Tests 12/18/18 05:00: White Blood Count 10.5, Red Blood Count 2.65L, Hemoglobin 8.2L, Hematocrit 25.8L , Mean Corpuscular Volume 97, Mean Corpuscular Hemoglobin 31.1H, Mean Corpuscular Hemoglobin Concent 32.0, Red Cell Distribution Width 16.0H, Platelet Count 317, Mean Platelet Volume 6.4L, Neutrophils (%) (Auto) 78.1H, Lymphocytes (%) (Auto) 11.7L, Monocytes (%) (Auto) 7.7, Eosinophils (%) (Auto) 1.9, Basophils (%) (Auto) 0.7, Erythrocyte Sedimentation Rate 64H, Sodium Level 137, Potassium Level 4.0, Chloride Level 106, Carbon Dioxide Level 25, Anion Gap 6, Blood Urea Nitrogen 10, Creatinine 0.5L, Estimat Glomerular Filtration Rate , Glucose Level 124H, Calcium Level 7.3L, Phosphorus Level 2.1L, Magnesium Level 1.9, Total Bilirubin 0.9, Aspartate Amino Transf (AST/SGOT) 34, Alanine Aminotransferase (ALT/SGPT) 19, Alkaline Phosphatase 753H, C-Reactive Protein, Quantitative 1.8H, Total Protein 4.4L, Albumin 1.2L, Globulin 3.2, Albumin/ Globulin Ratio 0.4L Current Medications Medications (Trade) Dose Ordered Sig/Pauline Route PRN Reason Start Time Stop Time Status Last Admin Dose Admin Acetaminophen (Tylenol) 650 mg Q4H PRN ORAL T>100.5 12/17/18 21:30 01/12/19 21:29 Albuterol/ Ipratropium (Albuterol/ Ipratropium) 3 ml Q4H PRN HHN Shortness of Breath 12/17/18 21:30 12/18/18 21:29 Cefepime HCl 2 gm/ Dextrose 110 ml @ 220 mls/hr EVERY 12 HOURS IV 12/17/18 21:00 12/24/18 20:59 12/18/18 09:25 Chlorhexidine Gluconate (Marycarmen-Hex 2%) 1 applic DAILY@2000 TOPIC 12/18/18 20:00 01/16/19 19:59 Dextrose (Dextrose 50%) 25 ml Q30M PRN IV Hypoglycemia 12/17/18 21:30 01/12/19 07:29 Dextrose (Dextrose 50%) 50 ml Q30M PRN IV Hypoglycemia 12/17/18 21:30 01/12/19 07:29 Digoxin (Lanoxin) 0.125 mg DAILY GT 12/18/18 09:00 01/13/19 08:59 12/18/18 09:22 Heparin Sodium (Porcine) (Heparin 5000 units/ml) 5,000 units EVERY 12 HOURS SUBQ 12/17/18 21:00 01/16/19 20:59 12/18/18 09:27 Hydrocortisone (Proctosol-HC Cream) 1 applic Q12HR TOPIC 12/17/18 21:00 01/16/19 20:59 12/18/18 09:22 Lactobacillus Acidophilus (Culturelle) 1 tab EVERY 8 HOURS GT 12/17/18 22:00 01/12/19 17:59 12/18/18 05:17 Lansoprazole (Prevacid) 30 mg EVERY 12 HOURS GT 12/17/18 21:00 01/16/19 20:59 12/18/18 09:21 Linezolid (Zyvox) 600 mg Q12HR GT 12/17/18 21:00 12/22/18 20:59 12/18/18 09:21 Memantine (Namenda) 5 mg DAILY GT 12/18/18 09:00 01/17/19 08:59 12/18/18 09:21 Metoprolol Tartrate (Lopressor) 50 mg Q12HR GT 12/17/18 21:00 01/16/19 20:59 12/18/18 09:20 Morphine Sulfate (Morphine Sulfate) 2 mg Q4H PRN IVP Severe Pain (Pain Scale 7-10) 12/17/18 21:30 12/24/18 21:29 Ondansetron HCl (Zofran) 4 mg Q6H PRN IVP Nausea & Vomiting 12/17/18 21:30 01/16/19 21:29 Polyethylene Glycol (Miralax) 17 gm DAILYPRN PRN ORAL Constipation 12/17/18 21:30 01/16/19 21:29 Sodium Hypochlorite (Dakin's Quarter Strength) 1 applic BEDTIME TOPIC 12/17/18 21:00 01/16/19 20:59 12/17/18 21:50 David Carrasquillo MD Dec 18, 2018 10:27
--- NOTE | 2018-12-18 10:30 | GI Progress Note ---
Assessment/Plan Problems: (1) Duodenal ulcer hemorrhage ICD Codes: K26.4 - Chronic or unspecified duodenal ulcer with hemorrhage SNOMED: 79265888 (2) Feeding by G-tube ICD Codes: Z93.1 - Gastrostomy status SNOMED: 076123015, 718879801, 099321786 (3) SOB (shortness of breath) ICD Codes: R06.02 - Shortness of breath SNOMED: 095481894 (4) Perforated duodenal ulcer ICD Codes: K26.5 - Chronic or unspecified duodenal ulcer with perforation SNOMED: 82982278 (5) Severe protein-calorie malnutrition ICD Codes: E43 - Unspecified severe protein-calorie malnutrition SNOMED: 248674300, 025074581, 862657367 Status: unchanged Status Narrative Discussed with Dr. Dallas. Assessment/Plan Duodenal ulcer, s/p SURG TF per surgery iv ppi stable H&H will fu may need TPN if prolonged NPO status anticipated The patient was seen and examined at bedside and all new and available data was reviewed in the patients chart. I agree with the above findings, impression and plan. (Patient seen earlier today. Signature stamp does not reflect patient encounter time.). - Deacon Dallas MD Subjective Subjective Limited Objective Last 24 Hour Vital Signs Date Time Temp Pulse Resp B/P (MAP) Pulse Ox O2 Delivery O2 Flow Rate FiO2 12/18/18 09:22 101 12/18/18 09:20 101 142/76 12/18/18 08:00 98.7 111 20 142/76 (98) 100 12/18/18 08:00 5.0 12/18/18 07:44 110 12/18/18 07:00 99 Nasal Cannula 2.0 28 12/18/18 04:53 72 16 100 Full Face 30 12/18/18 04:00 30 12/18/18 04:00 98.7 81 18 130/77 (94) 99 12/18/18 04:00 Bi-pap 12/18/18 04:00 106 12/18/18 03:33 90 23 99 Full Face 30 12/18/18 00:55 79 23 100 Bi-Pap 30 12/18/18 00:55 79 23 100 Full Face 30 12/18/18 00:00 30 12/18/18 00:00 83 12/18/18 00:00 Bi-pap 12/18/18 00:00 98.8 63 18 121/60 (80) 99 12/17/18 22:40 90 20 100 Full Face 30 12/17/18 21:49 101 111/65 12/17/18 20:00 2.0 12/17/18 20:00 98.6 80 24 111/65 (80) 98 12/17/18 20:00 Nasal Cannula 2.0 12/17/18 20:00 101 12/17/18 18:59 99 Nasal Cannula 2.0 28 12/17/18 16:00 88 12/17/18 16:00 2.0 12/17/18 16:00 Nasal Cannula 5.0 12/17/18 16:00 97.7 99 20 122/80 (94) 100 12/17/18 12:00 2.0 12/17/18 12:00 98.1 85 20 104/63 (77) 100 12/17/18 12:00 88 12/17/18 12:00 Nasal Cannula 5.0 Intake and Output 12/17/18 12/18/18 19:00 07:00 Intake Total 1941.664 ml 840 ml Output Total 140 ml 1580 ml Balance 1801.664 ml -740 ml Intake Free Water 250 ml 180 ml IV Total 1091.664 ml 110 ml Tube Feeding 600 ml 550 ml Output Urine Total 1500 ml Drainage Total 140 ml 80 ml # Bowel Movements 1 2 Laboratory Tests Test 12/18/18 05:00 White Blood Count 10.5 K/UL (4.8-10.8) Red Blood Count 2.65 M/UL (4.70-6.10) L Hemoglobin 8.2 G/DL (14.2-18.0) L Hematocrit 25.8 % (42.0-52.0) L Mean Corpuscular Volume 97 FL (80-99) Mean Corpuscular Hemoglobin 31.1 PG (27.0-31.0) H Mean Corpuscular Hemoglobin Concent 32.0 G/DL (32.0-36.0) Red Cell Distribution Width 16.0 % (11.6-14.8) H Platelet Count 317 K/UL (150-450) Mean Platelet Volume 6.4 FL (6.5-10.1) L Neutrophils (%) (Auto) 78.1 % (45.0-75.0) H Lymphocytes (%) (Auto) 11.7 % (20.0-45.0) L Monocytes (%) (Auto) 7.7 % (1.0-10.0) Eosinophils (%) (Auto) 1.9 % (0.0-3.0) Basophils (%) (Auto) 0.7 % (0.0-2.0) Erythrocyte Sedimentation Rate 64 MM/HR (0-20) H Sodium Level 137 MMOL/L (136-145) Potassium Level 4.0 MMOL/L (3.5-5.1) Chloride Level 106 MMOL/L (98-107) Carbon Dioxide Level 25 MMOL/L (21-32) Anion Gap 6 mmol/L (5-15) Blood Urea Nitrogen 10 mg/dL (7-18) Creatinine 0.5 MG/DL (0.55-1.30) L Estimat Glomerular Filtration Rate mL/min (>60) Glucose Level 124 MG/DL (74-106) H Calcium Level 7.3 MG/DL (8.5-10.1) L Phosphorus Level 2.1 MG/DL (2.5-4.9) L Magnesium Level 1.9 MG/DL (1.8-2.4) Total Bilirubin 0.9 MG/DL (0.2-1.0) Aspartate Amino Transf (AST/SGOT) 34 U/L (15-37) Alanine Aminotransferase (ALT/SGPT) 19 U/L (12-78) Alkaline Phosphatase 753 U/L (46-116) H C-Reactive Protein, Quantitative 1.8 mg/dL (0.00-0.90) H Total Protein 4.4 G/DL (6.4-8.2) L Albumin 1.2 G/DL (3.4-5.0) L Globulin 3.2 g/dL Albumin/Globulin Ratio 0.4 (1.0-2.7) L Height (Feet): 5 Height (Inches): 5.00 Weight (Pounds): 182 General Appearance: no apparent distress Cardiovascular: normal rate Respiratory/Chest: normal breath sounds, no respiratory distress Abdominal Exam: normal bowel sounds, non tender, soft, GT site Extremities: non-tender Objective The patient was discharged over the weekend, return back to the hospital after episode of shortness of breath. Sohan Kohli NP Dec 18, 2018 10:30
--- NOTE | 2018-12-18 10:42 | Nephrology Progress Note ---
Assessment/Plan Problem List: (1) Electrolyte abnormality (2) SOB (shortness of breath) (3) Anemia Assessment UTI (urinary tract infection) Anemia, chronic disease Alzheimer's dementia Parkinson disease h/o C. difficile colitis Perforated duodenal ulcer Laparatomy Op 12/02/18) other: Pneumonia UTI, h/o bacteremia sacral decub dementia HTN Sz disorder Parkinsons severe Anemia Plan Plan transfuse Trial Albumin for low bp as needed midodrine PRN K and Mag and Phos supplement as needed Transfuse as needed roberto carlos keith RN Subjective ROS Limited/Unobtainable: No Objective Objective Last 24 Hour Vital Signs Date Time Temp Pulse Resp B/P (MAP) Pulse Ox O2 Delivery O2 Flow Rate FiO2 12/18/18 09:22 101 12/18/18 09:20 101 142/76 12/18/18 08:00 98.7 111 20 142/76 (98) 100 12/18/18 08:00 5.0 12/18/18 07:44 110 12/18/18 07:00 99 Nasal Cannula 2.0 28 12/18/18 04:53 72 16 100 Full Face 30 12/18/18 04:00 30 12/18/18 04:00 98.7 81 18 130/77 (94) 99 12/18/18 04:00 Bi-pap 12/18/18 04:00 106 12/18/18 03:33 90 23 99 Full Face 30 12/18/18 00:55 79 23 100 Bi-Pap 30 12/18/18 00:55 79 23 100 Full Face 30 12/18/18 00:00 30 12/18/18 00:00 83 12/18/18 00:00 Bi-pap 12/18/18 00:00 98.8 63 18 121/60 (80) 99 12/17/18 22:40 90 20 100 Full Face 30 12/17/18 21:49 101 111/65 12/17/18 20:00 2.0 12/17/18 20:00 98.6 80 24 111/65 (80) 98 12/17/18 20:00 Nasal Cannula 2.0 12/17/18 20:00 101 12/17/18 18:59 99 Nasal Cannula 2.0 28 12/17/18 16:00 88 12/17/18 16:00 2.0 12/17/18 16:00 Nasal Cannula 5.0 12/17/18 16:00 97.7 99 20 122/80 (94) 100 12/17/18 12:00 2.0 12/17/18 12:00 98.1 85 20 104/63 (77) 100 12/17/18 12:00 88 12/17/18 12:00 Nasal Cannula 5.0 Intake and Output 12/17/18 12/18/18 19:00 07:00 Intake Total 1941.664 ml 840 ml Output Total 140 ml 1580 ml Balance 1801.664 ml -740 ml Intake Free Water 250 ml 180 ml IV Total 1091.664 ml 110 ml Tube Feeding 600 ml 550 ml Output Urine Total 1500 ml Drainage Total 140 ml 80 ml # Bowel Movements 1 2 Laboratory Tests 12/18/18 05:00: White Blood Count 10.5, Red Blood Count 2.65L, Hemoglobin 8.2L, Hematocrit 25.8L , Mean Corpuscular Volume 97, Mean Corpuscular Hemoglobin 31.1H, Mean Corpuscular Hemoglobin Concent 32.0, Red Cell Distribution Width 16.0H, Platelet Count 317, Mean Platelet Volume 6.4L, Neutrophils (%) (Auto) 78.1H, Lymphocytes (%) (Auto) 11.7L, Monocytes (%) (Auto) 7.7, Eosinophils (%) (Auto) 1.9, Basophils (%) (Auto) 0.7, Erythrocyte Sedimentation Rate 64H, Sodium Level 137, Potassium Level 4.0, Chloride Level 106, Carbon Dioxide Level 25, Anion Gap 6, Blood Urea Nitrogen 10, Creatinine 0.5L, Estimat Glomerular Filtration Rate , Glucose Level 124H, Calcium Level 7.3L, Phosphorus Level 2.1L, Magnesium Level 1.9, Total Bilirubin 0.9, Aspartate Amino Transf (AST/SGOT) 34, Alanine Aminotransferase (ALT/SGPT) 19, Alkaline Phosphatase 753H, C-Reactive Protein, Quantitative 1.8H, Total Protein 4.4L, Albumin 1.2L, Globulin 3.2, Albumin/ Globulin Ratio 0.4L Height (Feet): 5 Height (Inches): 5.00 Weight (Pounds): 182 General Appearance: no apparent distress Objective no change Kendall Trinidad MD Dec 18, 2018 10:42
--- NOTE | 2018-12-18 10:45 | Cardiac Electrophysiology PN ---
Assessment/Plan Assessment/Plan 1. Post op atrial fib with RVR 170s. On Dig 0.125 PEG daily and Lopressor 50 GT bid 2. S/P Septic and hemorrhagic shock . Echo EF 55% 3. Acute right leg DVT and Bilateral UE DVT. S/P IVC filter . Off Eliquis for severe anemia and GI bleed 4. Staph aureous bacteremia. On Abx per Dr Yee 5. Parkinsonism. 6. COPD. 7. UTI. 8. Severe anemia and rectal bleed. S/P Colonoscopy on 11/20/18 and 11/29/18 and transfusion No obvious source. S/P EGD by Dr Dallas and Anterior duodenostomy for control of large posterior duodenal ulcer hemorrhage by Dr Eugene on 12/02/18 S/P transfusion again 12/15/18 9. Seizure disorder. 10. S/P PEG 11. Respiratory failure, extubated 12/08/18. EHSAN RN Subjective Subjective Off Face Mask on Nasal cannula. Had Atrial fib with RVR up to 160s that got better with increasing metoprolol to 50 bid Objective Last 24 Hour Vital Signs Date Time Temp Pulse Resp B/P (MAP) Pulse Ox O2 Delivery O2 Flow Rate FiO2 12/18/18 09:22 101 12/18/18 09:20 101 142/76 12/18/18 08:00 98.7 111 20 142/76 (98) 100 12/18/18 08:00 5.0 12/18/18 07:44 110 12/18/18 07:00 99 Nasal Cannula 2.0 28 12/18/18 04:53 72 16 100 Full Face 30 12/18/18 04:00 30 12/18/18 04:00 98.7 81 18 130/77 (94) 99 12/18/18 04:00 Bi-pap 12/18/18 04:00 106 12/18/18 03:33 90 23 99 Full Face 30 12/18/18 00:55 79 23 100 Bi-Pap 30 12/18/18 00:55 79 23 100 Full Face 30 12/18/18 00:00 30 12/18/18 00:00 83 12/18/18 00:00 Bi-pap 12/18/18 00:00 98.8 63 18 121/60 (80) 99 12/17/18 22:40 90 20 100 Full Face 30 12/17/18 21:49 101 111/65 12/17/18 20:00 2.0 12/17/18 20:00 98.6 80 24 111/65 (80) 98 12/17/18 20:00 Nasal Cannula 2.0 12/17/18 20:00 101 12/17/18 18:59 99 Nasal Cannula 2.0 28 12/17/18 16:00 88 12/17/18 16:00 2.0 12/17/18 16:00 Nasal Cannula 5.0 12/17/18 16:00 97.7 99 20 122/80 (94) 100 12/17/18 12:00 2.0 12/17/18 12:00 98.1 85 20 104/63 (77) 100 12/17/18 12:00 88 12/17/18 12:00 Nasal Cannula 5.0 Intake and Output 12/17/18 12/18/18 19:00 07:00 Intake Total 1941.664 ml 840 ml Output Total 140 ml 1580 ml Balance 1801.664 ml -740 ml Intake Free Water 250 ml 180 ml IV Total 1091.664 ml 110 ml Tube Feeding 600 ml 550 ml Output Urine Total 1500 ml Drainage Total 140 ml 80 ml # Bowel Movements 1 2 Laboratory Tests Test 12/18/18 05:00 White Blood Count 10.5 K/UL (4.8-10.8) Red Blood Count 2.65 M/UL (4.70-6.10) L Hemoglobin 8.2 G/DL (14.2-18.0) L Hematocrit 25.8 % (42.0-52.0) L Mean Corpuscular Volume 97 FL (80-99) Mean Corpuscular Hemoglobin 31.1 PG (27.0-31.0) H Mean Corpuscular Hemoglobin Concent 32.0 G/DL (32.0-36.0) Red Cell Distribution Width 16.0 % (11.6-14.8) H Platelet Count 317 K/UL (150-450) Mean Platelet Volume 6.4 FL (6.5-10.1) L Neutrophils (%) (Auto) 78.1 % (45.0-75.0) H Lymphocytes (%) (Auto) 11.7 % (20.0-45.0) L Monocytes (%) (Auto) 7.7 % (1.0-10.0) Eosinophils (%) (Auto) 1.9 % (0.0-3.0) Basophils (%) (Auto) 0.7 % (0.0-2.0) Erythrocyte Sedimentation Rate 64 MM/HR (0-20) H Sodium Level 137 MMOL/L (136-145) Potassium Level 4.0 MMOL/L (3.5-5.1) Chloride Level 106 MMOL/L (98-107) Carbon Dioxide Level 25 MMOL/L (21-32) Anion Gap 6 mmol/L (5-15) Blood Urea Nitrogen 10 mg/dL (7-18) Creatinine 0.5 MG/DL (0.55-1.30) L Estimat Glomerular Filtration Rate mL/min (>60) Glucose Level 124 MG/DL (74-106) H Calcium Level 7.3 MG/DL (8.5-10.1) L Phosphorus Level 2.1 MG/DL (2.5-4.9) L Magnesium Level 1.9 MG/DL (1.8-2.4) Total Bilirubin 0.9 MG/DL (0.2-1.0) Aspartate Amino Transf (AST/SGOT) 34 U/L (15-37) Alanine Aminotransferase (ALT/SGPT) 19 U/L (12-78) Alkaline Phosphatase 753 U/L (46-116) H C-Reactive Protein, Quantitative 1.8 mg/dL (0.00-0.90) H Total Protein 4.4 G/DL (6.4-8.2) L Albumin 1.2 G/DL (3.4-5.0) L Globulin 3.2 g/dL Albumin/Globulin Ratio 0.4 (1.0-2.7) L Microbiology Date/Time Source Procedure Growth Status 12/16/18 13:35 Blood Blood Culture - Preliminary NO GROWTH AFTER 24 HOURS Resulted 12/16/18 12:40 Blood Blood Culture - Preliminary NO GROWTH AFTER 24 HOURS Resulted Objective HEAD AND NECK: No JVD LUNGS: Decreased breath sounds. CARDIOVASCULAR: Regular S1 and S2 with no gallop . ABDOMEN: Soft. G-tube intact. S/P Laparatomy with ANGIE drain EXTREMITIES: Upper extremity and LE edema. Earl Washington MD Dec 18, 2018 10:45
[2018-12-18 12:00] VITALS: BP 132/68
--- NOTE | 2018-12-18 12:16 | Surgery Progress Note ---
Surgery Progress Note Subjective Additional Comments no acute events Objective Last 24 Hour Vital Signs Date Time Temp Pulse Resp B/P (MAP) Pulse Ox O2 Delivery O2 Flow Rate FiO2 12/18/18 09:22 101 12/18/18 09:20 101 142/76 12/18/18 08:00 98.7 111 20 142/76 (98) 100 12/18/18 08:00 5.0 12/18/18 08:00 Nasal Cannula 5.0 12/18/18 07:44 110 12/18/18 07:00 99 Nasal Cannula 2.0 28 12/18/18 04:53 72 16 100 Full Face 30 12/18/18 04:00 30 12/18/18 04:00 98.7 81 18 130/77 (94) 99 12/18/18 04:00 Bi-pap 12/18/18 04:00 106 12/18/18 03:33 90 23 99 Full Face 30 12/18/18 00:55 79 23 100 Bi-Pap 30 12/18/18 00:55 79 23 100 Full Face 30 12/18/18 00:00 30 12/18/18 00:00 83 12/18/18 00:00 Bi-pap 12/18/18 00:00 98.8 63 18 121/60 (80) 99 12/17/18 22:40 90 20 100 Full Face 30 12/17/18 21:49 101 111/65 12/17/18 20:00 2.0 12/17/18 20:00 98.6 80 24 111/65 (80) 98 12/17/18 20:00 Nasal Cannula 2.0 12/17/18 20:00 101 12/17/18 18:59 99 Nasal Cannula 2.0 28 12/17/18 16:00 88 12/17/18 16:00 2.0 12/17/18 16:00 Nasal Cannula 5.0 12/17/18 16:00 97.7 99 20 122/80 (94) 100 I&O Intake and Output 12/17/18 12/18/18 19:00 07:00 Intake Total 1941.664 ml 840 ml Output Total 140 ml 1580 ml Balance 1801.664 ml -740 ml Intake Free Water 250 ml 180 ml IV Total 1091.664 ml 110 ml Tube Feeding 600 ml 550 ml Output Urine Total 1500 ml Drainage Total 140 ml 80 ml # Bowel Movements 1 2 Dressing: dry Wound: clean Drains: tawanda Cardiovascular: RSR Respiratory: clear, decreased breath sounds Abdomen: soft, present bowel sounds, non-distended Extremities: no cyanosis Laboratory Tests Test 12/18/18 05:00 White Blood Count 10.5 K/UL (4.8-10.8) Red Blood Count 2.65 M/UL (4.70-6.10) L Hemoglobin 8.2 G/DL (14.2-18.0) L Hematocrit 25.8 % (42.0-52.0) L Mean Corpuscular Volume 97 FL (80-99) Mean Corpuscular Hemoglobin 31.1 PG (27.0-31.0) H Mean Corpuscular Hemoglobin Concent 32.0 G/DL (32.0-36.0) Red Cell Distribution Width 16.0 % (11.6-14.8) H Platelet Count 317 K/UL (150-450) Mean Platelet Volume 6.4 FL (6.5-10.1) L Neutrophils (%) (Auto) 78.1 % (45.0-75.0) H Lymphocytes (%) (Auto) 11.7 % (20.0-45.0) L Monocytes (%) (Auto) 7.7 % (1.0-10.0) Eosinophils (%) (Auto) 1.9 % (0.0-3.0) Basophils (%) (Auto) 0.7 % (0.0-2.0) Erythrocyte Sedimentation Rate 64 MM/HR (0-20) H Sodium Level 137 MMOL/L (136-145) Potassium Level 4.0 MMOL/L (3.5-5.1) Chloride Level 106 MMOL/L (98-107) Carbon Dioxide Level 25 MMOL/L (21-32) Anion Gap 6 mmol/L (5-15) Blood Urea Nitrogen 10 mg/dL (7-18) Creatinine 0.5 MG/DL (0.55-1.30) L Estimat Glomerular Filtration Rate mL/min (>60) Glucose Level 124 MG/DL (74-106) H Calcium Level 7.3 MG/DL (8.5-10.1) L Phosphorus Level 2.1 MG/DL (2.5-4.9) L Magnesium Level 1.9 MG/DL (1.8-2.4) Total Bilirubin 0.9 MG/DL (0.2-1.0) Aspartate Amino Transf (AST/SGOT) 34 U/L (15-37) Alanine Aminotransferase (ALT/SGPT) 19 U/L (12-78) Alkaline Phosphatase 753 U/L (46-116) H C-Reactive Protein, Quantitative 1.8 mg/dL (0.00-0.90) H Total Protein 4.4 G/DL (6.4-8.2) L Albumin 1.2 G/DL (3.4-5.0) L Globulin 3.2 g/dL Albumin/Globulin Ratio 0.4 (1.0-2.7) L Plan Problems: (1) Duodenal ulcer hemorrhage Assessment & Plan: 73-year-old male well-known to me from recent surgery. Patient was admitted prior with GI bleed identified to have a actively bleeding duodenal ulcer status post expiratory laparotomy. Please refer to prior operative note for details. Patient was recently discharged to assisted for the continued care but returned with altered status and a respiratory distress. Patient readmitted and placed on BiPAP. Since her respiratory distress has improved and is now on facemask. On admission patient with leukocytosis 16,000 which is resolved now. Electrolyte abnormal. Surgery called for continued postoperative care while inpatient. -elizabeth drain care / management will need to leave drain in for some time now as patient likely developed duodenal leak that is contained -abd exam stable labs improved cont with abx as per ID will follow with Andrew Dwyer Dec 18, 2018 12:16
--- NOTE | 2018-12-18 12:45 | NUR ---
TOBACCO SAMPLE PULLER NOTES PT ACCEPTED BACK TO [facility]. WAITING FOR CLEARANCE FROM PULMONARY.WILL FOLLOW UP. Addendum: 12/18/18 at 1248 by MATTY RO RN RN RECEIVED CLEARANCE FROM PULMONARY. PT TO RETURN TO [facility] TO TRANSPORT PT WITH AN ETA 1430.NURSE MADE AWARE.
[2018-12-18] MEDS ORDERED: ZYVOX600 MG GT (13:08)
[2018-12-18] MEDS ORDERED: METOPROLOL TART50 MG GT (13:08)
[2018-12-18] MEDS ORDERED: CEFEPIME-D2 GM/50 ML IVPB (13:08)
--- NOTE | 2018-12-18 15:45 | Progress Note ---
DATE: 12/18/2018 SUBJECTIVE: This is a 73-year-old male patient. He is confused, disorganized, and altered mental status. He has shortness of breath , but his cognition has declined below his baseline secondary to stress of his medical illness. MENTAL STATUS EXAMINATION: This is a 73-year-old male. Appearance is disheveled. Attitude, irritable and agitated. Affect, guarded and restricted. Intellect, poor. Mood, depressed and anxious. Motor activity, psychomotor agitation. Attention span is poor. Orientation x2. Speech is low volume, slurred. Thought process, disorganized and illogical. Insight and judgment is poor. DIAGNOSIS: Major depressive disorder, mild, recurrent with psychotic features, rule out dementia with psychosis. PLAN: Treat him with Namenda 5 mg per G-tube twice a day. A 20 minutes of insight-oriented psychotherapy to help him have more insight into his medical and cognitive decline condition so he will have better impulse control on the unit. Chart reviewed. Discussed with staff. Seen and assessed at bedside. Laith Mason M.D. DR: ELLYN JOB#: [id number] CC:
[2018-12-18] MEDS ORDERED: Tubing IV Secondary IV ONE ×2 (15:54→17:57)
[2018-12-18] MEDS ORDERED: NS 275ml ONE ×2 (15:54→17:57)
--- NOTE | 2018-12-18 15:55 | NUR ---
Discharge: Patient is being discharged from medical care. Awake, alert and oriented x 1. No s/s of respiratory distress noted. GT, RLQ ANGIE drain, grewal catheter and right subclavian TLC all intact and asymptomatic. Patient discharged with [facility] in stable condition with all belongings.
[2018-12-18] MEDS ORDERED: NS 500ML ONE (17:57)
[2018-12-18] MEDS ORDERED: Dyna-Hex 2% Top Sol 2oz TOPIC SCH (20:00)
--- NOTE | 2018-12-19 23:06 | Discharge Summary ---
Discharge Summary Discharge Summary _ DATE OF ADMISSION: 12/13/2018 DATE OF DISCHARGE: 12/18/2018 DISCHARGED BY: Dr Gonzalez 73 years old male REASON FOR ADMISSION: 73 years old male with past medical history of hypertension, COPD, severe anemia , requiring multiple blood transfusion due to GI bleeding, resulting in hemorrhagic shock secondary to duodenal ulcer, status post repair, MDR pneumonia, C. difficile colitis, Parkinson disease, acute DVT, status post IVC filter, chronic kidney disease, seizure disorder, dementia, presented with increased difficulty of breathing. Patient was just discharged from the hospital. At the facility patient was noted to have increased work of breathing. Patient was sent to emergency room for further evaluation. Patient was hypoxic and required 100% nonrebreathing mask, which was placed by paramedics. Patient was tachypneic and tachycardic, but afebrile. Urinalysis revealed evidence of probable UTI. Stable electrolytes and renal parameters. Glucose 114. Lactic acid 1.5. Total bilirubin 1.8 and direct bilirubin 1.3. Stable AST and ALT. Troponin 0 0.042. ProBNP 2993. EKG revealed normal sinus rhythm no acute ischemic changes. Laboratory work-up revealed leukocytosis WBC 16.3, hemoglobin 8.5, hematocrit 26.6. Chest x-ray demonstrated pulmonary edema versus infiltrates. Patient was admitted to [facility] for further management. CONSULTANTS: risk control director Dr. Sampson pulmonary Dr. Carrasquillo ID specialist Dr. Yee GI specialist Dr. Dallas park maintenance technician Dr. Trinidad distribution operations manager/oncologist Dr. Payne surgery Dr. Eugene psychiatrist Dr. Mason [facility] COURSE: Patient admitted to [facility]. Patient was initially continued on BiPAP. Patient was followed-up with chest x-ray and ABG. Patient was continued on antibiotics , that he was upon discharge due to MDR pneumonia C. difficile colitis. Lactobacillus continued. Patient was recultured. ID specialist followed. Blood culture initially revealed Staphylococcus coagulase-negative, 1 out of 4, likely contaminant as per ID specialist. Repeated blood culture on 12/16 were negative. Urine culture revealed Pseudomonas. Sputum culture revealed Citrobacter of 2 different strains. Wound culture revealed Citrobacter and VRE. Patient had sacral decubitus ulcer , present on admission. Wound care provided. Patient will need to continue antibiotics at the facility as per ID specialist recommendation to complete the course. Patient completed treatment for C. difficile colitis. Diarrhea resolved. Leukocytosis resolved. ANGIE drain output was closely monitored. Surgeon advised that drain need to be left for some time, as patient likely developed duodenal leak, which was contained. Abdominal exam was stable. Surgical wound appeared clean, open to air, with carmel .. Sueding And Buffing Machine Operator closely followed. Patient was able to be weaned from BiPAP, initially on Venturi mask. Prior to discharge patient was on oxygen via nasal cannula. Pulse oximetry was stable. Patient was followed-up with chest x-ray. Pulmonary toilet provided. Venous duplex bilateral lower extremity revealed acute nonobstructive thrombus in the common femoral vein and superficial femoral vein right lower extremity. Venous imaging of left leg demonstrated recanalized chronic thrombus in the common femoral, superficial femoral and popliteal veins. Patient status post IVC filter placement on previous admission. No further extension of DVT. Strict aspiration precaution maintained. G-tube feeding resumed. Patient was able to tolerate tube feeding. Operator/Assistant Foreman followed for prior history of atrial fibrillation with rapid ventricular response. Patient was on digoxin and Lopressor. Telemetry demonstrated sinus rhythm or sinus tachycardia with PAC, occasional atrial fibrillation. Patient was off Eliquis from prior admission, given severe anemia and GI bleeding. DVT prophylaxis provided. Blood pressure was closely monitored and managed with beta-danya. Hemoglobin and hematocrit were closely monitored with goal to keep hemoglobin above 7. Patient undergone transfusion of 1 units of packed red blood cells while in the hospital. Prior to discharge hemoglobin 8.2, hematocrit 25.8. Seizure precaution maintained. No evidence of seizure activity while in the hospital. Supportive care provided. Bowel regimen instituted. Per distribution operations manager, anemia with likely due to GI bleeding. Anemia work-up revealed evidence of anemia of chronic disease. No evidence of hemolysis. Renal parameters and electrolytes were closely monitor. Potassium and magnesium replaced. Nephrotoxins were avoided. GI prophylaxis with PPI provided. Protein supplements implemented in patient's diet as per registered nurse surgical services recommendation. Psychiatrist followed. Per psychiatrist, patient had major depressive disorder , mild, recurrent with psychotic features. Psychiatric medication regimen was optimized as per psychiatrist. Insight oriented psychotherapy provided. Supportive care provided. Bowel regimen instituted. Patient clinically stabilized and was ready for transfer to shelter facility for continuation of care. FINAL DIAGNOSES: Acute respiratory failure requiring BiPAP-resolved Sepsis UTI with Pseudomonas Pneumonia with Citrobacter. C. difficile colitis, status post treatment Anemia due to GI blood loss Anemia of chronic disease Recent history of hemorrhagic shock due to large duodenal ulcer Status post recent repair of duodenal ulcer COPD Hypertension Paroxysmal atrial fibrillation with recent episode of atrial fibrillation with rapid ventricular response Status post recent septic and hemorrhagic shock Acute right lower extremity DVT and bilateral upper extremity DVT, status post IVC filter. Sacral decubitus ulcer, present on admission Severe protein calorie malnutrition Electrolyte abnormality Major depressive disorder, mild, recurrent with psychotic features DISCHARGE MEDICATIONS: See Medication Reconciliation list. DISCHARGE INSTRUCTIONS: Patient was discharged to the shelter facility. Follow up with medical doctor at the facility. I have been assigned to dictate discharge summary for this account. I was not involved in the patient's management. Aleida Tellez NP Dec 19, 2018 23:06
== END 2018-12-18 15:55 | DRG 871 ==
LOC: EDBD 01:03 → EMR 01:55 → 2W 02:13 → EDBEDREQ 03:44 → 2W 05:56 → UNDODISIN 12-17 19:45
PROC: 5A09457 Assistance with Respiratory Ventilation, 24-96 Consecutive Hours, Continuous Positive Airway Pressure (ICD-10-PCS; principal; 2018-12-13)
PROC: 30233N1 Transfusion of Nonautologous Red Blood Cells into Peripheral Vein, Percutaneous Approach (ICD-10-PCS; 2018-12-15)
PROC: 3E03328 Introduction of Oxazolidinones into Peripheral Vein, Percutaneous Approach (ICD-10-PCS; 2018-12-17)
DX: A41.9 Sepsis, unspecified organism (principal); J96.00 Acute respiratory failure, unspecified whether with hypoxia or hypercapnia; K26.4 Chronic or unspecified duodenal ulcer with hemorrhage; E43 Unspecified severe protein-calorie malnutrition; J15.6 Pneumonia due to other Gram-negative bacteria; N39.0 Urinary tract infection, site not specified; E46 Unspecified protein-calorie malnutrition; A04.72 Enterocolitis due to Clostridium difficile, not specified as recurrent; I82.401 Acute embolism and thrombosis of unspecified deep veins of right lower extremity; Z43.1 Encounter for attention to gastrostomy; F33.0 Major depressive disorder, recurrent, mild; I82.502 Chronic embolism and thrombosis of unspecified deep veins of left lower extremity; I82.623 Acute embolism and thrombosis of deep veins of upper extremity, bilateral; I48.0 Paroxysmal atrial fibrillation; Z68.30 Body mass index [BMI] 30.0-30.9, adult; G30.9 Alzheimer's disease, unspecified; B96.5 Pseudomonas (aeruginosa) (mallei) (pseudomallei) as the cause of diseases classified elsewhere; F28 Other psychotic disorder not due to a substance or known physiological condition; F02.80 Dementia in other diseases classified elsewhere, unspecified severity, without behavioral disturbance, psychotic disturbance, mood disturbance, and anxiety; D63.8 Anemia in other chronic diseases classified elsewhere; J44.9 Chronic obstructive pulmonary disease, unspecified; G20 Parkinson's disease; I10 Essential (primary) hypertension; R13.10 Dysphagia, unspecified; E87.6 Hypokalemia; D50.0 Iron deficiency anemia secondary to blood loss (chronic); Z95.828 Presence of other vascular implants and grafts; D69.6 Thrombocytopenia, unspecified
CPT/HCPCS: 36415; 36600; 71045; 80048; 80053; 80069; 80150; 80162; 80202; 81003; 82248; 82550; 82553; 82803; 83605; 83735; 83880; 84100; 84484; 84550; 85007; 85025; 85651; 86140; 86850; 86900; 86901; 86920; 87040; 87070; 87081; 87086; 87181; 87205; 93005; 93970; 94660; 94664; 96361; 96365; 96367; 96375; 97802; 97803; 99291